=== PATIENT | male | born 1970 | race Caucasian/White ===

== ENCOUNTER 2017-09-20 09:09 | Emergency (ER) | payer MEDICARE, MEDICAID ==
[~2017-09-20] VITALS: Ht 185.4 cm; Wt 189.1 kg
[~2017-09-20 09:09] MED LIST: AGM875T PO; CIPR7.5D2 BC; HYDR12.570 PO; HYDR1TAB PO; LEVO750T6 PO; LSNP20T PO; METH4TAB PO; METR500T PO; VALS320T8 PO; VERA360C2 PO
--- OUTSIDE RECORDS SUMMARY | 2017-09-20 09:20 | XMS REPORT | Clinical Summary ---
Author Author [facility] Organization [facility] Address Unknown Phone Unavailable Care Team Providers Care Golf Club Manager Name Role Phone PCP Unavailable Source Comments Some departments are not documenting in the electronic medical record. If you do not see the information that you expected, contact Release of Information in the Health Information Management department at [phone] for further assistance in locating additional records.[facility] Allergies Not on File Current Medications Not on file Active Problems Not on file Social History Tobacco Use Types Packs/Day Years Used Date Never Assessed Sex Assigned at Date Recorded Not on file Last Filed Vital Signs Not on file Plan of Treatment Health Maintenance Due Date Last Done Comments PHYSICAL (COMPREHENSIVE) 1979 EXAM PERTUSSIS VACCINE 1983 TETANUS VACCINE 1989 INFLUENZA VACCINE 05/24/2017 Results Not on filefrom Last 3 Months
--- OUTSIDE RECORDS SUMMARY | 2017-09-20 09:21 | XMS REPORT ---
Author Author LINDA NDIAYE Organization [employer] Address Unknown Phone Unavailable Care Team Providers Care Infusion Nurse Name Role Phone LINDA NDIAYE Unavailable Allergies No Known Allergies Problems Problem Type Condition ICD-9 Code Onset Dates Condition Status Problem Social phobia 300.23 Active Assessment Degenerative disc disease 722.6 Active Problem Pain in joint, pelvic region and thigh 719.45 Active Problem Morbid obesity 278.01 Active Problem Constipation 564.00 Active Problem Anxiety state, unspecified 300.00 Active Problem Panic disorder without agoraphobia 300.01 Active Problem Other chronic pain 338.29 Active Problem Essential hypertension, benign 401.1 Active Medications No Known Medications Results No Known Results Summary Purpose [employer] Submission
--- OUTSIDE RECORDS SUMMARY | 2017-09-20 09:21 | XMS REPORT ---
Author Author GABRIELLE SUTHERLAND Organization [facility] Address [address] [place] [address] Care Team Providers Care Green Chain Offbearer Name Role Phone GABRIELLE SUTHERLAND Unavailable PROBLEMS Type Condition ICD9-CM Code [id number] Code Onset Dates Condition Status SNOMED Code Problem Other viral agents as the cause of diseases classified elsewhere B97.89 Active 253648415 Problem Dysthymic disorder F34.1 Active 34040048 Problem Acute upper respiratory infection, unspecified J06.9 Active 960765909 Problem 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.22 Active 88903757 Problem 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 81137179 Problem Osteoarthritis of knee, unspecified M17.9 Active 496306603 Problem Social phobia, generalized F40.11 Active 46360930 Problem Mixed obsessional thoughts and acts F42.2 Active 86767881 Problem Mild episode of recurrent major depressive disorder F33.0 Active 029600236 Problem Social phobia F40.10 Active 65370231 Problem Anxiety F41.9 Active 44724327 Problem Pelvic pain in male R10.2 Active 54987362 Problem Panic disorder F41.0 Active 550557814 Problem Degenerative disc disease at L5-S1 level M51.36 Active 88955799 Problem HTN (hypertension) I10 Active 63980143 Problem Chronic pain G89.29 Active 26417301 Problem Pain in right knee M25.561 Active 700063718 Problem Morbid obesity E66.01 Active 205129942 Problem BPH (benign prostatic hyperplasia) N40.0 Active 374475769 ALLERGIES Unknown Allergies SOCIAL HISTORY No smoking Hx information available PLAN OF CARE VITAL SIGNS MEDICATIONS Unknown Medications RESULTS No Results PROCEDURES No Known procedures IMMUNIZATIONS No Known Immunizations
--- OUTSIDE RECORDS SUMMARY | 2017-09-20 09:21 | XMS REPORT ---
Author Author GABRIELLE SUTHERLAND Organization [facility] Address [address] [place] [address] Care Team Providers Care Raw Finish Mill Operator Name Role Phone GABRIELLE SUTHERLAND Unavailable PROBLEMS Type Condition ICD9-CM Code RKM73-KG Code Onset Dates Condition Status SNOMED Code Problem Other viral agents as the cause of diseases classified elsewhere B97.89 Active 974966731 Problem Dysthymic disorder F34.1 Active 74725657 Problem Acute upper respiratory infection, unspecified J06.9 Active 533903056 Problem 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.22 Active 44307886 Problem 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 39576132 Problem Osteoarthritis of knee, unspecified M17.9 Active 947251686 Problem Social phobia, generalized F40.11 Active 02064349 Problem Mixed obsessional thoughts and acts F42.2 Active 09294614 Problem Mild episode of recurrent major depressive disorder F33.0 Active 918726523 Problem Social phobia F40.10 Active 89532992 Problem Anxiety F41.9 Active 27237085 Problem Pelvic pain in male R10.2 Active 37704620 Problem Panic disorder F41.0 Active 281410604 Problem Degenerative disc disease at L5-S1 level M51.36 Active 67831925 Problem HTN (hypertension) I10 Active 82826802 Problem Chronic pain G89.29 Active 24207521 Problem Pain in right knee M25.561 Active 723671240 Problem Morbid obesity E66.01 Active 460786690 Problem BPH (benign prostatic hyperplasia) N40.0 Active 095124630 ALLERGIES Unknown Allergies SOCIAL HISTORY No smoking Hx information available PLAN OF CARE VITAL SIGNS MEDICATIONS Unknown Medications RESULTS No Results PROCEDURES No Known procedures IMMUNIZATIONS No Known Immunizations
--- OUTSIDE RECORDS SUMMARY | 2017-09-20 09:21 | XMS REPORT ---
Author Author YORDAN CESAR Organization [employer] Address Unknown Phone Unavailable Care Team Providers Care Sea Kayaking Guide Name Role Phone YORDAN CESAR CP Unavailable Allergies No Known Allergies Problems Problem Type Condition Code Onset Dates Condition Status Problem Chronic pain G89.29 Active Problem Anxiety F41.9 Active Problem Morbid obesity E66.01 Active Problem Pelvic pain in male R10.2 Active Problem Social phobia F40.10 Active Problem Panic disorder F41.0 Active Medications Medication Code System Code Instructions Start Date End Date Status Dosage Alprazolam [facility] [address]-87 1 MG Orally- [place] to sign for Krishna TAKE ONE TABLET BY MOUTH THREE TIMES DAILY NEEDED Results No Known Results Summary Purpose [employer] Submission
--- OUTSIDE RECORDS SUMMARY | 2017-09-20 09:21 | XMS REPORT ---
Author Author LINDA NDIAYE [facility] [employer] Address Unknown Phone Unavailable Care Team Providers Care Dross Puller Name Role Phone LINDA NDIAYE Unavailable Allergies No Known Allergies Problems Problem Type Condition Code Onset Dates Condition Status Problem Pelvic pain in male R10.2 Active Problem Degenerative disc disease at L5-S1 level M51.36 Active Problem Morbid obesity E66.01 Active Problem HTN (hypertension) I10 Active Problem Social phobia F40.10 Active Problem Panic disorder F41.0 Active Problem Chronic pain G89.29 Active Problem Anxiety F41.9 Active Medications Medication Code System Code Instructions Start Date End Date Status Dosage Ibuprofen [facility] [address]-67 800 MG Orally 3 times a day TAKE ONE TABLET BY MOUTH THREE TIMES DAILY Results No Known Results Summary Purpose [employer] Submission
--- OUTSIDE RECORDS SUMMARY | 2017-09-20 09:21 | XMS REPORT ---
Author Author ROBBI RICE [facility] [employer] Address Unknown Phone Unavailable Care Team Providers Care Padding Gluer Name Role Phone ROBBI RICE Unavailable Allergies, Adverse Reactions, Alerts Substance Reaction Event Type Prozac Info Not Available Drug Allergy Problems Problem Type Condition Code Onset Dates Condition Status Assessment Panic disorder F41.0 Active Problem Chronic pain G89.29 Active Problem Anxiety F41.9 Active Problem Morbid obesity E66.01 Active Problem Pelvic pain in male R10.2 Active Assessment Social phobia F40.10 Active Problem Social phobia F40.10 Active Problem Panic disorder F41.0 Active Medications Medication Code System Code Instructions Start Date End Date Status Dosage Hydrochlorothiazide [facility] 28909237686 12.5 MG Orally Once a day 1 capsule by Oral route 1 time per day take in am for blood pressure Ambien [facility] [address]-72 10 MG Orally once daily - PRN insomnia January 15, 2015 1 tablet at bedtime as needed Verelan [facility] [address]-55 180 MG Orally Once a day Sep 04, 2015 2 capsule Hydrocodone-Acetaminophen [facility] [address]-55 10-325 MG Orally 3 times a day January 03, 2015 1 tablet as needed Alprazolam [facility] [address]-18 1 MG Three times a day PRN 1 tablet Lisinopril [facility] [address]-50 40 MG Orally Once a day January 15, 2015 take 1 tablet by Oral route 1 time per day for blood pressure MiraLax [facility] [address]-52 17 gm/dose Orally Once a day Jun 24, 2015 Oct 22, 2015 1 packet mixed with 8 ounces of fluid Diovan [facility] 71551858255 320 MG Orally Once a day 1 Tablet by Po route 1 time per day for blood pressure Metoprolol Succinate ER [facility] 81690618232 50 MG orally once TAKE ONE TABLET BY MOUTH ONCE DAILY Verapamil HCl CR [facility] [address]-15 360 MG Orally Once a day 2015 1 capsule in the morning Procedures Procedure Coding System Code Date Office Visit, Jocelyn Pt., Level 3 CPT-4 27828 Sep 11, 2015 Vital Signs Date/Time: Sep 11, 2015 Cardiac Monitoring Heart Rate 92 bpm Weight 365.0 lbs Height 73 in BMI 48.15 Index Blood Pressure Diastolic 100 mmHg Blood Pressure Systolic 170 mmHg Results No Known Results Summary Purpose [employer] Submission
--- OUTSIDE RECORDS SUMMARY | 2017-09-20 09:21 | XMS REPORT ---
Author Author LINDA NDIAYE [facility] [employer] Address Unknown Phone Unavailable Care Team Providers Care Bank And Savings Securities Trader Name Role Phone LINDA NDIAYE CP Unavailable Allergies, Adverse Reactions, Alerts Substance Reaction Event Type Prozac Info Not Available Drug Allergy Problems Problem Type Condition Code Onset Dates Condition Status Assessment Social phobia F40.10 Active Assessment Chronic pain G89.29 Active Assessment Anxiety F41.9 Active Problem Chronic pain G89.29 Active Problem Anxiety F41.9 Active Problem Morbid obesity E66.01 Active Problem Pelvic pain in male R10.2 Active Assessment Morbid obesity E66.01 Active Problem Social phobia F40.10 Active Problem Panic disorder F41.0 Active Assessment HTN (hypertension) I10 Active Assessment Insomnia G47.00 Active Assessment Pelvic pain in male R10.2 Active Assessment Panic disorder F41.0 Active Medications Medication Code System Code Instructions Start Date End Date Status Dosage Alprazolam [facility] 89874659348 1 MG TAKE ONE TABLET BY MOUTH TWICE DAILY NEEDED MiraLax [facility] [address]-68 17 gm/dose Orally Once a day Jun 24, 2015 Oct 22, 2015 1 packet mixed with 8 ounces of fluid Lisinopril [facility] [address]-26 40 MG Orally Once a day January 15, 2015 take 1 tablet by Oral route 1 time per day for blood pressure Blood Pressure Cuff [facility] [address]41 1 Once a day Jun 06, 2015 as directed Xanax [facility] [address]-15 1 MG Orally Twice a day PRN January 03, 2015 1 tablet Metoprolol Succinate ER [facility] [address]-15 50 MG Orally Once a day Jun 06, 2015 1 tablet Hydrochlorothiazide [facility] [address]-62 12.5 MG Orally Once a day January 15, 2015 1 capsule by Oral route 1 time per day take in am for blood pressure Diovan [facility] [address]-88 320 MG Orally Once a day January 15, 2015 1 Tablet by Po route 1 time per day for blood pressure Verapamil HCl CR [facility] [address]-36 360 MG Orally Once a day 2015 1 capsule in the morning Ibuprofen [facility] [address]-13 800mg Orally Three times a day Jul 24, 2015 Aug 23, 2015 1 tablet Ambien [facility] [address]-79 10 MG Orally once daily - PRN insomnia January 15, 2015 1 tablet at bedtime as needed Procedures Procedure Coding System Code Date Office Visit, Est Pt., Level 4 CPT-4 80399 Jul 29, 2015 [facility] VISIT ESTABLISHED PATIENT CPT-4 G0467 Jul 29, 2015 Vital Signs Date/Time: Jul 29, 2015 Temperature 98.2 F Weight 372.6 lbs Height 73 in BMI 49.15 Index Blood Pressure Diastolic 110 mmHg Blood Pressure Systolic 165 mmHg Cardiac Monitoring Heart Rate 104 bpm Results No Known Results Summary Purpose [employer]ClinicalWorks Submission
--- OUTSIDE RECORDS SUMMARY | 2017-09-20 09:21 | XMS REPORT ---
Author Author GABRIELLE SUTHERLAND Organization [facility] Address [address] [place] [address] Care Team Providers Care Purchasing Supervisor Name Role Phone GABRIELLE SUTHERLAND Unavailable PROBLEMS Type Condition ICD9-CM Code [id number] Code Onset Dates Condition Status SNOMED Code Problem Other viral agents as the cause of diseases classified elsewhere B97.89 Active 530759909 Problem Dysthymic disorder F34.1 Active 74391014 Problem Acute upper respiratory infection, unspecified J06.9 Active 454342948 Problem 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.22 Active 52185479 Problem 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 34862166 Problem Osteoarthritis of knee, unspecified M17.9 Active 067465189 Problem Social phobia, generalized F40.11 Active 87543707 Problem Mixed obsessional thoughts and acts F42.2 Active 28336445 Problem Mild episode of recurrent major depressive disorder F33.0 Active 888897025 Problem Social phobia F40.10 Active 32290977 Problem Anxiety F41.9 Active 46693661 Problem Pelvic pain in male R10.2 Active 58863326 Problem Panic disorder F41.0 Active 987925753 Problem Degenerative disc disease at L5-S1 level M51.36 Active 59828407 Problem HTN (hypertension) I10 Active 82397733 Problem Chronic pain G89.29 Active 39567761 Problem Pain in right knee M25.561 Active 041612645 Problem Morbid obesity E66.01 Active 620222243 Problem BPH (benign prostatic hyperplasia) N40.0 Active 611957566 ALLERGIES Unknown Allergies SOCIAL HISTORY No smoking Hx information available PLAN OF CARE VITAL SIGNS MEDICATIONS Unknown Medications RESULTS No Results PROCEDURES No Known procedures IMMUNIZATIONS No Known Immunizations
--- OUTSIDE RECORDS SUMMARY | 2017-09-20 09:21 | XMS REPORT ---
Author Author LINDA NDIAYE Organization [facility] Address [address] [place] [address] Care Team Providers Care Farm Mortgage Agent Name Role Phone HUGH NDIAYEE Unavailable PROBLEMS Type Condition ICD9-CM Code [id number] Code Onset Dates Condition Status SNOMED Code Problem Other viral agents as the cause of diseases classified elsewhere B97.89 Active 183127266 Problem Social phobia, generalized F40.11 Active 80690996 Problem Acute upper respiratory infection, unspecified J06.9 Active 493937185 Problem 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.22 Active 22495828 Problem 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29 Active 70729559 Problem BPH (benign prostatic hyperplasia) N40.0 Active 296295837 Problem Social phobia F40.10 Active 40281770 Problem Pain in right knee M25.561 Active 220858189 ALLERGIES Substance Reaction Event Type Date Status Prozac Unknown Drug Allergy Dec, Active SOCIAL HISTORY Never Assessed PLAN OF CARE Activity Details Follow Up 3 Months, prn Reason:chm VITAL SIGNS Height 73 in 2017-01-03 Weight 384.6 lbs 2017-01-03 Temperature 97.8 degrees Fahrenheit 2017-01-03 Heart Rate 106 bpm 2017-01-03 Respiratory Rate 24 2017-01-03 BMI 50.74 kg/m2 2017-01-03 Blood pressure systolic 152 mmHg 2017-01-03 Blood pressure diastolic 88 mmHg 2017-01-03 MEDICATIONS Medication Instructions Dosage Frequency Start Date End Date Duration Status Metoprolol Succinate ER 50 mg TAKE ONE TABLET BY MOUTH ONCE DAILY Active Hydrochlorothiazide 12.5 MG Orally Once a day 1 capsule by Oral route 1 time per day take in am for blood pressure 24h Active Lisinopril 40 MG oral once a day TAKE ONE TABLET BY MOUTH ONCE DAILY 24h Active Verapamil HCl CR 360 MG Orally Once a day 1 capsule in the morning 24h Active Ibuprofen 800 MG TAKE ONE TABLET BY MOUTH THREE TIMES DAILY Active Diovan 320 MG Orally Once a day 1 tablet 24h Active Albuterol Sulfate HFA 108 (90 Base) MCG/ACT Inhalation every 4 hrs 2 puffs as needed 4h Aug, Active Wheelchair N/A as directed Aug, Active Hydrocodone-Acetaminophen 10-325 MG Orally 3 times a day 1 tablet as needed 8h Active RESULTS Name Result Date Reference Range [employer] 2017-01-03 PROCEDURES Procedure Date Ordered Result Body Site [facility] VISIT ESTABLISHED PATIENT January 03, 2017 No Charge January 03, 2017 IMMUNIZATIONS No Known Immunizations MEDICAL (GENERAL) HISTORY Type Description Date Medical History hypertension Medical History morbid obesity Medical History anxiety Hospitalization History ER visit due to panic attacks Hospitalization History chest pain
--- OUTSIDE RECORDS SUMMARY | 2017-09-20 09:21 | XMS REPORT ---
Author Author [facility] SUTHERLAND [facility] Address [address] [place] [address] Care Team Providers Care Manager Highway Name Role Phone GABRIELLE SUTHERLAND Unavailable PROBLEMS Type Condition ICD9-CM Code XBT91-WI Code Onset Dates Condition Status SNOMED Code Problem Other viral agents as the cause of diseases classified elsewhere B97.89 Active 239412464 Problem Social phobia, generalized F40.11 Active 31434382 Problem Acute upper respiratory infection, unspecified J06.9 Active 686665602 Problem 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.22 Active 17668889 Problem 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29 Active 37962985 Problem BPH (benign prostatic hyperplasia) N40.0 Active 761016453 Problem Social phobia F40.10 Active 54084829 Problem Pain in right knee M25.561 Active 852370738 ALLERGIES Substance Reaction Event Type Date Status Prozac Unknown Drug Allergy Nov, Active SOCIAL HISTORY Never Assessed PLAN OF CARE Activity Details Follow Up 6 Weeks Reason: VITAL SIGNS MEDICATIONS Medication Instructions Dosage Frequency Start Date End Date Duration Status Diovan 320 MG Orally Once a day 1 tablet 24h Active Clonazepam 0.25 MG Orally Twice a day 1 tablet 12h 30 days Active Ibuprofen 800 MG TAKE ONE TABLET BY MOUTH THREE TIMES DAILY 30 Active Hydrochlorothiazide 12.5 MG Orally Once a day 1 capsule by Oral route 1 time per day take in am for blood pressure 24h 30 Active Lisinopril 40 MG oral once a day TAKE ONE TABLET BY MOUTH ONCE DAILY 24h 30 Active Zithromax Z-Vidal 250 MG Orally Once a day 2 tablets on the first day, then 1 tablet daily for 4 days 24h 22 Aug, 2016 5 day(s) Active Rexulti 0.5 MG Orally Once a day 1 tablet 24h 16 Sep, 2016 Active Metoprolol Succinate ER 50 mg TAKE ONE TABLET BY MOUTH ONCE DAILY Active Trazodone HCl 50 mg Orally Once a day 1 tablet at bedtime as needed 24h Active Hydrocodone-Acetaminophen 10-325 MG Orally 3 times a day 1 tablet as needed 8h Oct, Active Wheelchair N/A as directed Aug, Active Verapamil HCl CR 360 MG Orally Once a day 1 capsule in the morning 24h Active Rexulti 2 MG Orally Once a day 1 tablet 24h Nov, 30 day(s) Active Cheratussin AC 100-10 MG/5ML Orally every 4 hrs 5 ml 4h Aug, Active Albuterol Sulfate HFA 108 (90 Base) MCG/ACT Inhalation every 4 hrs 2 puffs as needed 4h Aug, Active RESULTS No Results PROCEDURES Procedure Date Ordered Result Body Site [facility] VISIT ESTABLISHED PATIENT Nov 26, 2016 IMMUNIZATIONS No Known Immunizations MEDICAL (GENERAL) HISTORY Type Description Date Medical History hypertension Medical History morbid obesity Medical History anxiety Hospitalization History ER visit due to panic attacks Hospitalization History chest pain
--- OUTSIDE RECORDS SUMMARY | 2017-09-20 09:21 | XMS REPORT ---
Author Author LINDA NDIAYE Organization [facility] Address [address] [place] [address] Care Team Providers Care Wet Char Conveyor Tender Name Role Phone HUGH NDIAYEE Unavailable PROBLEMS Type Condition ICD9-CM Code BED49-HV Code Onset Dates Condition Status SNOMED Code Problem Other viral agents as the cause of diseases classified elsewhere B97.89 Active 551455378 Problem Social phobia, generalized F40.11 Active 83991313 Problem Acute upper respiratory infection, unspecified J06.9 Active 384348110 Problem 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.22 Active 61329407 Problem 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29 Active 06531855 Problem BPH (benign prostatic hyperplasia) N40.0 Active 710836812 Problem Social phobia F40.10 Active 15489130 Problem Pain in right knee M25.561 Active 491861227 ALLERGIES No Information SOCIAL HISTORY Never Assessed PLAN OF CARE VITAL SIGNS MEDICATIONS Medication Instructions Dosage Frequency Start Date End Date Duration Status Hydrocodone-Acetaminophen 10-325 MG Orally 3 times a day 1 tablet as needed 8h February, 28 days Active RESULTS No Results PROCEDURES No Known procedures IMMUNIZATIONS No Known Immunizations MEDICAL (GENERAL) HISTORY Type Description Date Medical History hypertension Medical History morbid obesity Medical History anxiety Hospitalization History ER visit due to panic attacks Hospitalization History chest pain
--- OUTSIDE RECORDS SUMMARY | 2017-09-20 09:21 | XMS REPORT ---
Author Author LINDA NDIAYE Organization [facility] Address [address] [place] [address] Care Team Providers Care Production Planner Scheduler Name Role Phone LINDA NDIAYE Unavailable PROBLEMS Type Condition ICD9-CM Code [id number] Code Onset Dates Condition Status SNOMED Code Problem Panic disorder F41.0 Active 221201393 Problem Anxiety F41.9 Active 04959516 Problem Social phobia F40.10 Active 31674880 Problem Pelvic pain in male R10.2 Active 82890944 Problem BPH (benign prostatic hyperplasia) N40.0 Active 070734753 Problem Pain in right knee M25.561 Active 843806133 Problem Morbid obesity E66.01 Active 891851996 Problem Chronic pain G89.29 Active 18271348 Problem HTN (hypertension) I10 Active 11003189 Problem Degenerative disc disease at L5-S1 level M51.36 Active 95874532 ALLERGIES Unknown Allergies SOCIAL HISTORY No smoking Hx information available PLAN OF CARE VITAL SIGNS MEDICATIONS Medication Instructions Dosage Frequency Start Date End Date Duration Status Hydrocodone-Acetaminophen 10-325 MG Orally 3 times a day 1 tablet as needed 8h 28 days Active Alprazolam 1 MG Orally Three times a day 1 tablet 8h Active RESULTS No Results PROCEDURES No Known procedures IMMUNIZATIONS No Known Immunizations
--- OUTSIDE RECORDS SUMMARY | 2017-09-20 09:22 | XMS REPORT ---
Author Author LINDA NDIAYE [facility] eClinicalWorks Address Unknown Phone Unavailable Care Team Providers Care Smutter Name Role Phone LINDA NDIAYE Unavailable Allergies No Known Allergies Problems Problem Type Condition Code Onset Dates Condition Status Problem Morbid obesity E66.01 Active Problem HTN (hypertension) I10 Active Problem Degenerative disc disease at L5-S1 level M51.36 Active Problem Social phobia, generalized F40.11 Active Problem Dysthymic disorder F34.1 Active Problem Osteoarthritis of knee, unspecified M17.9 Active Problem BPH (benign prostatic hyperplasia) N40.0 Active Problem Pain in right knee M25.561 Active Problem Acute upper respiratory infection, unspecified J06.9 Active Problem Other viral agents as the cause of diseases classified elsewhere B97.89 Active Problem Panic disorder F41.0 Active Problem Social phobia F40.10 Active Problem Anxiety F41.9 Active Problem Pelvic pain in male R10.2 Active Problem Chronic pain G89.29 Active Medications No Known Medications Results No Known Results Summary Purpose eClinicalWorks Submission
--- OUTSIDE RECORDS SUMMARY | 2017-09-20 09:22 | XMS REPORT ---
Author Author LINDA NDIAYE [facility] eClinicalWorks Address Unknown Phone Unavailable Care Team Providers Care Flexographic Printing Machinist Name Role Phone LINDA NDIAYE Unavailable Allergies No Known Allergies Problems Problem Type Condition ICD-9 Code Onset Dates Condition Status Problem Morbid obesity 278.01 Active Problem Other chronic pain 338.29 Active Problem Pain in joint, pelvic region and thigh 719.45 Active Problem Panic disorder without agoraphobia 300.01 Active Problem Social phobia 300.23 Active Problem Essential hypertension, benign 401.1 Active Problem Anxiety state, unspecified 300.00 Active Medications No Known Medications Results No Known Results Summary Purpose eClinicalWorks Submission
--- OUTSIDE RECORDS SUMMARY | 2017-09-20 09:22 | XMS REPORT ---
Author Author LINDA NDIAYE [facility] eClinicalWorks Address Unknown Phone Unavailable Care Team Providers Care Senior Pastor Name Role Phone LINDA NDIAYE Unavailable Allergies No Known Allergies Problems Problem Type Condition Code Onset Dates Condition Status Problem Chronic pain G89.29 Active Problem Anxiety F41.9 Active Problem Morbid obesity E66.01 Active Problem Pelvic pain in male R10.2 Active Problem Social phobia F40.10 Active Problem Panic disorder F41.0 Active Medications No Known Medications Results No Known Results Summary Purpose eClinicalWorks Submission
--- OUTSIDE RECORDS SUMMARY | 2017-09-20 09:22 | XMS REPORT ---
Author Author LINDA NDIAYE [facility] eClinicalWorks Address Unknown Phone Unavailable Care Team Providers Care Hospital Television Rental Clerk Name Role Phone LINDA NDIAYE Unavailable Allergies [...] Instructions Start Date End Date Status Dosage Hydrocodone-Acetaminophen [facility] [address]-38 10-325 MG Orally 3 times a day 1 tablet as needed Results No Known Results Summary Purpose eClinicalWorks Submission
--- OUTSIDE RECORDS SUMMARY | 2017-09-20 09:22 | XMS REPORT ---
Author Author LINDA NDIAYE [facility] eClinicalWorks Address Unknown Phone Unavailable Care Team Providers Care Grout Machine Operator Name Role Phone LINDA NDIAYE Unavailable Allergies [...] F41.0 Active Problem Social phobia F40.10 Active Assessment Osteoarthritis of knee, unspecified M17.9 Active Problem Anxiety F41.9 Active Problem Pelvic pain in male R10.2 Active Problem Chronic pain G89.29 Active Medications Medication Code System Code Instructions Start Date End Date Status Dosage Wheelchair NDC 0 N/A Sep 03, 2016 as directed Results No Known Results Summary Purpose eClinicalWorks Submission
--- OUTSIDE RECORDS SUMMARY | 2017-09-20 09:22 | XMS REPORT ---
Author Author LINDA NDIAYE [facility] eClinicalWorks Address Unknown Phone Unavailable Care Team Providers Care Lpn Name Role Phone LINDA NDIAYE CP Unavailable Allergies No Known Allergies Problems Problem Type Condition Code Onset Dates Condition Status Problem Pelvic pain in male R10.2 Active Problem Social phobia F40.10 Active Problem Panic disorder F41.0 Active Problem Pain in right knee M25.561 Active Problem HTN (hypertension) I10 Active Problem BPH (benign prostatic hyperplasia) N40.0 Active Problem Chronic pain G89.29 Active Problem Anxiety F41.9 Active Problem Degenerative disc disease at L5-S1 level M51.36 Active Problem Morbid obesity E66.01 Active Medications Medication Code System Code Instructions Start Date End Date Status Dosage Marybel [facility] [address]-67 0.5 % Externally as directed Jun 04, 2016 as directed Results No Known Results Summary Purpose eClinicalWorks Submission
--- OUTSIDE RECORDS SUMMARY | 2017-09-20 09:22 | XMS REPORT ---
Author Author LINDA NDIAYE [facility] eClinicalWorks Address Unknown Phone Unavailable Care Team Providers Care Catheter Builder Name Role Phone LINDA NDIAYE CP Unavailable [...] Active Problem Social phobia F40.10 Active Assessment Bronchitis J40 Active Problem Anxiety F41.9 Active Problem Pelvic pain in male R10.2 Active Problem Chronic pain G89.29 Active Medications Medication Code System Code Instructions Start Date End Date Status Dosage Cheratussin AC [facility] [address]-33 100-10 MG/5ML Orally every 4 hrs Sep 09, 2016 5 ml Lisinopril [facility] [address]-60 40 MG Orally 1 time a day not defined Xanax [facility] [address]-64 1 MG Orally Twice a day 1 tablet PredniSONE [facility] [address]-69 20 mg Orally twice a day Sep 09, 2016Aug 1 tablet Augmentin [facility] [address]-64 875-125 MG Orally every 12 hrs Sep 09, 2016 Sep 19, 2016 1 tablet Diovan [facility] [address]-55 320 MG Orally Once a day 1 tablet Duloxetine HCl [facility] [address]-19 30 MG Orally Once a day Aug 31, 2016 1 capsule Hydrocodone-Acetaminophen [facility] [address]-83 10-325 MG Orally 3 times a day Sep 01, 2016 1 tablet as needed Verapamil HCl CR [facility] 97028162284 360 MG Orally Once a day 1 capsule in the morning Wheelchair [facility] 0 N/A Sep 03, 2016 as directed Trazodone HCl [facility] [address]-81 50 mg Orally Once a day Aug 31, 2016 1 tablet at bedtime as needed Albuterol Sulfate HFA [facility] [address]-86 108 (90 Base) MCG/ACT Inhalation every 4 hrs Sep 09, 2016 2 puffs as needed Hydrochlorothiazide [facility] 69888890525 12.5 MG Orally Once a day 1 capsule by Oral route 1 time per day take in am for blood pressure Procedures Procedure Coding System Code Date Office Visit, Est Pt., Level 4 CPT-4 25279 Sep 09, 2016 [facility] VISIT ESTABLISHED PATIENT CPT-4 G0467 Sep 09, 2016 Vital Signs Date/Time: Sep 09, 2016 Cardiac Monitoring Heart Rate 88 bpm Weight 379.3 lbs Height 73 in BMI 50.04 Index Blood Pressure Diastolic 82 mmHg Blood Pressure Systolic 144 mmHg Results No Known Results Summary Purpose eClinicalWorks Submission
--- OUTSIDE RECORDS SUMMARY | 2017-09-20 09:22 | XMS REPORT ---
Author Author LINDA NDIAYE [facility] eClinicalWorks Address Unknown Phone Unavailable Care Team Providers Care Public Records Officer Name Role Phone LINDA NDIAYE Unavailable Allergies No Known Allergies Problems Problem Type Condition Code Onset Dates Condition Status Problem Chronic pain G89.29 Active Problem Anxiety F41.9 Active Problem Morbid obesity E66.01 Active Problem Pelvic pain in male R10.2 Active Problem Social phobia F40.10 Active Problem Panic disorder F41.0 Active Medications Medication Code System Code Instructions Start Date End Date Status Dosage Lisinopril [facility] [address]-04 40 MG Orally Once a day Aug 26, 2015 1 tablet Results No Known Results Summary Purpose eClinicalWorks Submission
--- OUTSIDE RECORDS SUMMARY | 2017-09-20 09:22 | XMS REPORT ---
Author Author LINDA NDIAYE [facility] eClinicalWorks Address Unknown Phone Unavailable Care Team Providers Care Analog Ic Design Engineer Name Role Phone LINDA NDIAYE Unavailable Allergies No Known Allergies Problems Problem Type Condition Code Onset Dates Condition Status Problem Chronic pain G89.29 Active Problem Anxiety F41.9 Active Problem Morbid obesity E66.01 Active Problem Pelvic pain in male R10.2 Active Problem Social phobia F40.10 Active Problem Panic disorder F41.0 Active Medications Medication Code System Code Instructions Start Date End Date Status Dosage Hydrocodone-Acetaminophen [facility] [address]-45 10-325 MG Orally 3 times a day January 03, 2015 1 tablet as needed Results No Known Results Summary Purpose eClinicalWorks Submission
--- OUTSIDE RECORDS SUMMARY | 2017-09-20 09:22 | XMS REPORT ---
Author Author Art KALE Organization [facility] Address [address] [place] [address] Care Team Providers Care Lining Inserter Name Role Phone ana paulaKALE Alexander Unavailable PROBLEMS Type Condition ICD9-CM Code DKE10-WD Code Onset Dates Condition Status SNOMED Code Problem Other viral agents as the cause of diseases classified elsewhere B97.89 Active 487858632 Problem Social phobia, generalized F40.11 Active 68197181 Problem Acute upper respiratory infection, unspecified J06.9 Active 017131365 Problem 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.22 Active 62022581 Problem 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29 Active 17433430 Problem BPH (benign prostatic hyperplasia) N40.0 Active 168291552 Problem Social phobia F40.10 Active 74931047 Problem Pain in right knee M25.561 Active 158156228 ALLERGIES No Information SOCIAL HISTORY Never Assessed PLAN OF CARE Activity Details Follow Up 6 Weeks with new provider Reason: VITAL SIGNS Height 73 in 2017-03-03 Heart Rate 86 bpm 2017-03-03 Respiratory Rate 22 2017-03-03 Blood pressure systolic 154 mmHg 2017-03-03 Blood pressure diastolic 102 mmHg 2017-03-03 MEDICATIONS Medication Instructions Dosage Frequency Start Date End Date Duration Status Metoprolol Succinate ER 50 mg TAKE ONE TABLET BY MOUTH ONCE DAILY 30 Active Hydrochlorothiazide 12.5 MG Orally Once a day 1 capsule by Oral route 1 time per day take in am for blood pressure 24h 30 Active Trazodone HCl 50 mg Orally Once a day 1 tablet at bedtime as needed 24h Active Ibuprofen 800 MG Orally 3 times a day 1 tablet with food or milk as needed 8h 30 days Active Lisinopril 40 MG oral once a day TAKE ONE TABLET BY MOUTH ONCE DAILY 24h 30 Active Albuterol Sulfate HFA 108 (90 Base) MCG/ACT Inhalation every 4 hrs 2 puffs as needed 4h Aug, Active Diovan 320 MG Orally Once a day 1 tablet 24h 30 Active BuPROPion HCl 75 MG Orally Once a day 1 tablet 24h February, 30 day( s) Active Wheelchair N/A as directed Aug, Active Verapamil HCl CR 360 MG Orally Once a day 1 capsule in the morning 24h 30 Active Hydrocodone-Acetaminophen 10-325 MG Orally 3 times a day 1 tablet as needed 8h February, 28 days Active RESULTS No Results PROCEDURES Procedure Date Ordered Result Body Site [facility] VISIT ESTABLISHED PATIENT March 03, 2017 IMMUNIZATIONS No Known Immunizations MEDICAL (GENERAL) HISTORY Type Description Date Medical History hypertension Medical History morbid obesity Medical History anxiety Hospitalization History ER visit due to panic attacks Hospitalization History chest pain
--- OUTSIDE RECORDS SUMMARY | 2017-09-20 09:22 | XMS REPORT ---
Author Author LINDA NDIAYE [facility] eClinicalWorks Address Unknown Phone Unavailable Care Team Providers Care Foreign Food Specialty Cook Name Role Phone LINDA NDIAYE Unavailable Allergies No Known Allergies Problems Problem Type Condition Code Onset Dates Condition Status Problem Chronic pain G89.29 Active Problem Anxiety F41.9 Active Problem Morbid obesity E66.01 Active Problem Pelvic pain in male R10.2 Active Problem Social phobia F40.10 Active Problem Panic disorder F41.0 Active Medications Medication Code System Code Instructions Start Date End Date Status Dosage Hydrocodone-Acetaminophen [facility] [address]-95 10-325 MG Orally 3 times a day January 03, 2015 Oct 17, 2015 1 tablet as needed Results No Known Results Summary Purpose eClinicalWorks Submission
--- OUTSIDE RECORDS SUMMARY | 2017-09-20 09:22 | XMS REPORT ---
Author Author LINDA NDIAYE [facility] eClinicalWorks Address Unknown Phone Unavailable Care Team Providers Care Odd Jobs Day Worker Name Role Phone LINDA NDIAYE Unavailable Allergies [...]
--- OUTSIDE RECORDS SUMMARY | 2017-09-20 09:22 | XMS REPORT ---
Author Author LINDA NDIAYE [facility] eClinicalWorks Address Unknown Phone Unavailable Care Team Providers Care Oracle Financials Developer Name Role Phone LINDA NDIAYE CP Unavailable [...] Start Date End Date Status Dosage Hydrocodone-Acetaminophen [facility] [address]-52 10-325 MG Orally 3 times a day 1 tablet as needed Results No Known Results Summary Purpose eClinicalWorks Submission
--- OUTSIDE RECORDS SUMMARY | 2017-09-20 09:22 | XMS REPORT ---
Author Author LINDA NDIAYE Organization eClinicalWorks Address Unknown Phone Unavailable Care Team Providers Care Hat Brusher Machine Name Role Phone LINDA NDIAYE Unavailable Allergies No Known Allergies Problems Problem Type Condition Code Onset Dates Condition Status Problem Chronic pain G89.29 Active Problem Anxiety F41.9 Active Problem Morbid obesity E66.01 Active Problem Pelvic pain in male R10.2 Active Problem Social phobia F40.10 Active Problem Panic disorder F41.0 Active Medications Medication Code System Code Instructions Start Date End Date Status Dosage Verapamil HCl [facility] [address]-36 360 MG Orally Once a day 2015 1 capsule in the morning Results No Known Results Summary Purpose eClinicalWorks Submission
--- OUTSIDE RECORDS SUMMARY | 2017-09-20 09:22 | XMS REPORT ---
Author Author LINDA NDIAYE [facility] eClinicalWorks Address Unknown Phone Unavailable Care Team Providers Care Document Controller Name Role Phone LINDA NDIAYE Unavailable Allergies No Known Allergies Problems Problem Type Condition Code Onset Dates Condition Status Problem Chronic pain G89.29 Active Problem Anxiety F41.9 Active Problem Morbid obesity E66.01 Active Problem Pelvic pain in male R10.2 Active Problem Social phobia F40.10 Active Problem Panic disorder F41.0 Active Medications Medication Code System Code Instructions Start Date End Date Status Dosage Alprazolam [facility] [address]-20 1 MG Orally- [place] to sign for Krishna Three times a day TAKE ONE TABLET BY MOUTH THREE TIMES DAILY NEEDED Results No Known Results Summary Purpose eClinicalWorks Submission
--- OUTSIDE RECORDS SUMMARY | 2017-09-20 09:23 | XMS REPORT ---
Author Author GABRIELLE SUTHERLAND [facility] eClinicalWorks Address Unknown Phone Unavailable Care Team Providers Care Laundry Bag Punch Operator Name Role Phone GABRIELLE SUTHERLAND CP Unavailable Allergies No Known Allergies Problems Problem Type Condition Code Onset Dates Condition Status Problem Chronic pain G89.29 Active Problem Degenerative disc disease at L5-S1 level M51.36 Active Problem Morbid obesity E66.01 Active Problem Dysthymic disorder F34.1 Active Problem Acute upper respiratory infection, unspecified J06.9 Active Problem Social phobia, generalized F40.11 Active Problem Pain in right knee M25.561 Active Problem HTN (hypertension) I10 Active Problem Other viral agents as the cause of diseases classified elsewhere B97.89 Active Problem BPH (benign prostatic hyperplasia) N40.0 Active Problem Pelvic pain in male R10.2 Active Problem Panic disorder F41.0 Active Assessment Dysthymic disorder F34.1 Active Problem Social phobia F40.10 Active Assessment Social phobia, generalized F40.11 Active Problem Anxiety F41.9 Active Medications Medication Code System Code Instructions Start Date End Date Status Dosage Trazodone HCl [facility] [address]-56 50 mg Orally Once a day Aug 31, 2016 1 tablet at bedtime as needed Duloxetine HCl [facility] [address]-80 30 MG Orally Once a day Aug 31, 2016 1 capsule Procedures Procedure Coding System Code Date Office Visit, Est Pt., Level 3 CPT-4 37389 Aug 31, 2016 [facility] VISIT ESTABLISHED PATIENT CPT-4 G0467 Aug 31, 2016 Results No Known Results Summary Purpose eClinicalWorks Submission
--- OUTSIDE RECORDS SUMMARY | 2017-09-20 09:23 | XMS REPORT ---
Author Author LINDA NDIAYE [facility] eClinicalWorks Address Unknown Phone Unavailable Care Team Providers Care Assembler Installer Structures Name Role Phone LINDA NDIAYE Unavailable Allergies [...] Date End Date Status Dosage Verapamil HCl [facility] [address]-21 180 MG Orally Once a day Sep 04, 2015 2 tablet Results No Known Results Summary Purpose eClinicalWorks Submission
--- OUTSIDE RECORDS SUMMARY | 2017-09-20 09:23 | XMS REPORT ---
Author Author ROBBI RICE Organization eClinicalWorks Address Unknown Phone Unavailable Care Team Providers Care Grain Loader Name Role Phone ROBBI RICE Unavailable Allergies No Known Allergies Problems Problem Type Condition ICD-9 Code Onset Dates Condition Status Problem Morbid obesity 278.01 Active Problem Other chronic pain 338.29 Active Problem Pain in joint, pelvic region and thigh 719.45 Active Problem Panic disorder without agoraphobia 300.01 Active Problem Social phobia 300.23 Active Problem Essential hypertension, benign 401.1 Active Problem Anxiety state, unspecified 300.00 Active Medications Medication Code System Code Instructions Start Date End Date Status Dosage Xanax [facility] [address]-46 1 MG Orally Twice a day PRN January 03, 2015 1 tablet Ambien [facility] [address]-69 10 MG Orally once daily - PRN insomnia January 15, 2015 1 tablet at bedtime as needed Results No Known Results Summary Purpose eClinicalWorks Submission
--- OUTSIDE RECORDS SUMMARY | 2017-09-20 09:23 | XMS REPORT ---
Author Author LINDA NDIAYE [facility] eClinicalWorks Address Unknown Phone Unavailable Care Team Providers Care Core Java Engineer Name Role Phone LINDA NDIAYE Unavailable [...] Start Date End Date Status Dosage Hydrocodone-Acetaminophen [facility] [address]-99 10-325 MG Orally 3 times a day January 03, 2015 Oct 17, 2015 1 tablet as needed Results No Known Results Summary Purpose eClinicalWorks Submission
--- OUTSIDE RECORDS SUMMARY | 2017-09-20 09:23 | XMS REPORT ---
Author Author CHARLA LANDRUM [facility] eClinicalWorks Address Unknown Phone Unavailable Care Team Providers Care Concrete Technician Name Role Phone CHARLA LANDRUM CP Unavailable Allergies, Adverse Reactions, Alerts Substance Reaction Event Type Prozac Info Not Available Drug Allergy Problems Problem Type Condition Code Onset Dates Condition Status Assessment Social phobia, generalized F40.11 Active Problem Pelvic pain in male R10.2 Active Assessment Panic disorder [episodic paroxysmal anxiety] without agoraphobia F41.0 Active Problem Degenerative disc disease at L5-S1 level M51.36 Active Problem Morbid obesity E66.01 Active Problem HTN (hypertension) I10 Active Problem Social phobia F40.10 Active Problem Panic disorder F41.0 Active Problem Chronic pain G89.29 Active Problem Anxiety F41.9 Active Medications Medication Code System Code Instructions Start Date End Date Status Dosage Diovan [facility] 07925696844 320 MG Orally Once a day 1 Tablet by Po route 1 time per day for blood pressure Hydrochlorothiazide [facility] 25925288274 12.5 MG Orally Once a day 1 capsule by Oral route 1 time per day take in am for blood pressure Alprazolam [facility] [address]-59 1 MG Orally- [place] to sign for Krishna Three times a day TAKE ONE TABLET BY MOUTH THREE TIMES DAILY NEEDED Ambien [facility] [address]-52 10 MG Orally once daily - PRN insomnia January 15, 2015 1 tablet at bedtime as needed Verapamil HCl CR [facility] [address]-71 360 MG Orally Once a day 2015 1 capsule in the morning Metoprolol Succinate ER [facility] 64976114110 50 MG orally once TAKE ONE TABLET BY MOUTH ONCE DAILY Ibuprofen [facility] 17825004737 800 MG TAKE ONE TABLET BY MOUTH THREE TIMES DAILY Lisinopril [facility] [address]-50 40 MG Orally Once a day January 15, 2015 take 1 tablet by Oral route 1 time per day for blood pressure Verelan [facility] 98908448597 180 MG Orally Once a day 2 capsule Procedures Procedure Coding System Code Date Office Visit, Est Pt., Level 3 CPT-4 44461 Nov 13, 2015 [facility] VISIT ESTABLISHED PATIENT CPT-4 G0467 Nov 13, 2015 Vital Signs Date/Time: Nov 13, 2015 Cardiac Monitoring Heart Rate 120 bpm Weight 373.7 lbs Height 73 in BMI 49.30 Index Blood Pressure Diastolic 100 mmHg Blood Pressure Systolic 150 mmHg Results No Known Results Summary Purpose eClinicalWorks Submission
--- OUTSIDE RECORDS SUMMARY | 2017-09-20 09:23 | XMS REPORT ---
Author Author LINDA NDIAYE [facility] eClinicalWorks Address Unknown Phone Unavailable Care Team Providers Care Personal Security Specialist Name Role Phone LINDA NDIAYE CP Unavailable [...] Start Date End Date Status Dosage Alprazolam [facility] [address]-36 1 MG Orally Three times a day 1 tablet Hydrocodone-Acetaminophen [facility] [address]-43 10-325 MG Orally 3 times a day 1 tablet as needed Results No Known Results Summary Purpose eClinicalWorks Submission
--- OUTSIDE RECORDS SUMMARY | 2017-09-20 09:23 | XMS REPORT ---
Author Author LINDA NDIAYE Organization [employer] Address Unknown Phone Unavailable Care Team Providers Care Mobile Pet Groomer Name Role Phone LINDA NDIAYE CP Unavailable [...] Instructions Start Date End Date Status Dosage Metoprolol Succinate ER [facility] [address]-90 50 mg TAKE ONE TABLET BY MOUTH ONCE DAILY Verapamil HCl CR [facility] 92180997513 360 MG Orally Once a day 1 capsule in the morning Diovan [facility] [address]-42 320 MG Orally Once a day 1 tablet Results No Known Results Summary Purpose eClinicalWorks Submission
--- OUTSIDE RECORDS SUMMARY | 2017-09-20 09:23 | XMS REPORT ---
Author Author CODY ACE Organization [employer] Address Unknown Phone Unavailable Care Team Providers Care Tank Hoop Bender Name Role Phone CODY ACE CP Unavailable Allergies No Known Allergies Problems Problem Type Condition Code Onset Dates Condition Status Problem Chronic pain G89.29 Active Problem Anxiety F41.9 Active Problem Morbid obesity E66.01 Active Problem Pelvic pain in male R10.2 Active Problem Social phobia F40.10 Active Problem Panic disorder F41.0 Active Medications Medication Code System Code Instructions Start Date End Date Status Dosage Alprazolam [facility] [address]-51 1 MG Orally- [place] to sign for Krishna TAKE ONE TABLET BY MOUTH TWICE DAILY NEEDED Results No Known Results Summary Purpose eClinicalWorks Submission
--- OUTSIDE RECORDS SUMMARY | 2017-09-20 09:23 | XMS REPORT ---
Author Author LINDA NDIAYE Organization [facility] Address [address] [place] [address] Care Team Providers Care Telephone Triage Nurse Name Role Phone LINDA NDIAYE Unavailable PROBLEMS Type Condition ICD9-CM Code [id number] Code Onset Dates Condition Status SNOMED Code Problem Other viral agents as the cause of diseases classified elsewhere B97.89 Active 724091472 Problem Dysthymic disorder F34.1 Active 35951945 Problem Acute upper respiratory infection, unspecified J06.9 Active 888469161 Problem 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.22 Active 72763177 Problem 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 17017999 Problem Osteoarthritis of knee, unspecified M17.9 Active 527652475 Problem Social phobia, generalized F40.11 Active 66104401 Problem Mixed obsessional thoughts and acts F42.2 Active 68423162 Problem Mild episode of recurrent major depressive disorder F33.0 Active 871684483 Problem Social phobia F40.10 Active 85912099 Problem Anxiety F41.9 Active 12361382 Problem Pelvic pain in male R10.2 Active 70567426 Problem Panic disorder F41.0 Active 860082920 Problem Degenerative disc disease at L5-S1 level M51.36 Active 17304340 Problem HTN (hypertension) I10 Active 77859320 Problem Chronic pain G89.29 Active 51373114 Problem Pain in right knee M25.561 Active 199811473 Problem Morbid obesity E66.01 Active 705169037 Problem BPH (benign prostatic hyperplasia) N40.0 Active 787112274 ALLERGIES Unknown Allergies SOCIAL HISTORY No smoking Hx information available PLAN OF CARE VITAL SIGNS MEDICATIONS Medication Instructions Dosage Frequency Start Date End Date Duration Status Hydrocodone-Acetaminophen 10-325 MG Orally 3 times a day 1 tablet as needed 8h 21 Sep, 2016 Active RESULTS No Results PROCEDURES No Known procedures IMMUNIZATIONS No Known Immunizations
--- OUTSIDE RECORDS SUMMARY | 2017-09-20 09:23 | XMS REPORT ---
Author Author LINDA NDIAYE [facility] eClinical[employer] Address Unknown Phone Unavailable Care Team Providers Care Music Typographer Name Role Phone LINDA NDIAYE CP Unavailable [...] Start Date End Date Status Dosage Alprazolam [facility] [address]-21 1 MG Orally- [place] to sign for Krishna Three times a day TAKE ONE TABLET BY MOUTH THREE TIMES DAILY NEEDED Results No Known Results Summary Purpose eClinicalWorks Submission
--- OUTSIDE RECORDS SUMMARY | 2017-09-20 09:23 | XMS REPORT ---
Author Author LIDNA NDIAYE Organization [facility] Address [address] [place] [address] Care Team Providers Care Customer Service Rep Name Role Phone HUGH NDIAYEE Unavailable PROBLEMS Type Condition ICD9-CM Code [id number] Code Onset Dates Condition Status SNOMED Code Problem Other viral agents as the cause of diseases classified elsewhere B97.89 Active 933630120 Problem Dysthymic disorder F34.1 Active 52640513 Problem Acute upper respiratory infection, unspecified J06.9 Active 341767874 Problem 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.22 Active 92811961 Problem 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 20683519 Problem Osteoarthritis of knee, unspecified M17.9 Active 081557979 Problem Social phobia, generalized F40.11 Active 98721472 Problem Mixed obsessional thoughts and acts F42.2 Active 64159394 Problem Mild episode of recurrent major depressive disorder F33.0 Active 744772720 Problem Social phobia F40.10 Active 91991362 Problem Anxiety F41.9 Active 94153334 Problem Pelvic pain in male R10.2 Active 70136529 Problem Panic disorder F41.0 Active 956000291 Problem Degenerative disc disease at L5-S1 level M51.36 Active 25914953 Problem HTN (hypertension) I10 Active 64056509 Problem Chronic pain G89.29 Active 43209873 Problem Pain in right knee M25.561 Active 572241107 Problem Morbid obesity E66.01 Active 007410471 Problem BPH (benign prostatic hyperplasia) N40.0 Active 991554365 ALLERGIES Unknown Allergies SOCIAL HISTORY No smoking Hx information available PLAN OF CARE VITAL SIGNS MEDICATIONS Unknown Medications RESULTS No Results PROCEDURES No Known procedures IMMUNIZATIONS No Known Immunizations
--- OUTSIDE RECORDS SUMMARY | 2017-09-20 09:23 | XMS REPORT ---
Author Author LINDA NDIAYE [facility] eClinicalWorks Address Unknown Phone Unavailable Care Team Providers Care Terrazzo Worker Name Role Phone LINDA NDIAYE Unavailable [...] Start Date End Date Status Dosage Hydrocodone-Acetaminophen [facility] [address]-38 10-325 MG Orally 3 times a day January 03, 2015 Jun 22, 2015 1 tablet as needed Results No Known Results Summary Purpose eClinicalWorks Submission
--- OUTSIDE RECORDS SUMMARY | 2017-09-20 09:24 | XMS REPORT ---
Author Author LINDA NDIAYE [facility] eClinicalWorks Address Unknown Phone Unavailable Care Team Providers Care Senior Net Developer Architect Name Role Phone LINDA NDIAYE CP Unavailable [...] Active Problem Morbid obesity E66.01 Active Medications No Known Medications Results No Known Results Summary Purpose eClinicalWorks Submission
--- OUTSIDE RECORDS SUMMARY | 2017-09-20 09:24 | XMS REPORT ---
Author Author LINDA NDIAYE [facility] eClinicalWorks Address Unknown Phone Unavailable Care Team Providers Care Road Consultant Name Role Phone LINDA NDIAYE CP Unavailable Allergies, Adverse Reactions, Alerts Substance Reaction Event Type Prozac Info Not Available Drug Allergy Problems Problem Type Condition Code Onset Dates Condition Status Problem Chronic pain G89.29 Active Problem Degenerative disc disease at L5-S1 level M51.36 Active Problem Morbid obesity E66.01 Active Problem Dysthymic disorder F34.1 Active Assessment Acute upper respiratory infection, unspecified J06.9 Active Problem Acute upper respiratory infection, unspecified J06.9 Active Assessment Other viral agents as the cause of diseases classified elsewhere B97.89 Active Problem Social phobia, generalized F40.11 Active Problem Pain in right knee M25.561 Active Problem HTN (hypertension) I10 Active Problem Other viral agents as the cause of diseases classified elsewhere B97.89 Active Problem BPH (benign prostatic hyperplasia) N40.0 Active Assessment Social phobia F40.10 Active Assessment Anxiety F41.9 Active Assessment Social phobia, generalized F40.11 Active Assessment HTN (hypertension) I10 Active Problem Pelvic pain in male R10.2 Active Problem Panic disorder F41.0 Active Assessment Chronic pain G89.29 Active Problem Social phobia F40.10 Active Assessment Morbid obesity E66.01 Active Problem Anxiety F41.9 Active Medications Medication Code System Code Instructions Start Date End Date Status Dosage Verapamil HCl CR [facility] 40073628670 360 MG Orally Once a day 1 capsule in the morning Tessalon Perles [facility] [address]-18 100 MG Orally Three times a day Sep 01, 2016 Sep 11, 2016 1 capsule as needed Trazodone HCl [facility] [address]-95 50 mg Orally Once a day Aug 31, 2016 1 tablet at bedtime as needed PredniSONE [facility] [address]-35 10 mg Orally twice a day Sep 01, 2016Aug 1 tablet Hydrochlorothiazide [facility] 32387555382 12.5 MG Orally Once a day 1 capsule by Oral route 1 time per day take in am for blood pressure Xanax [facility] [address]-33 1 MG Orally Twice a day 1 tablet Duloxetine HCl [facility] [address]-77 30 MG Orally Once a day Aug 31, 2016 1 capsule Hydrocodone-Acetaminophen [facility] [address]-29 10-325 MG Orally 3 times a day Sep 01, 2016 1 tablet as needed Procedures Procedure Coding System Code Date Office Visit, Est Pt., Level 4 CPT-4 29401 Sep 01, 2016 [facility] VISIT ESTABLISHED PATIENT CPT-4 G0467 Sep 01, 2016 Vital Signs Date/Time: Sep 01, 2016 Cardiac Monitoring Heart Rate 96 bpm Weight 382 lbs Height 73 in BMI 50.39 Index Blood Pressure Diastolic 82 mmHg Blood Pressure Systolic 140 mmHg Results No Known Results Summary Purpose eClinicalWorks Submission
--- OUTSIDE RECORDS SUMMARY | 2017-09-20 09:24 | XMS REPORT ---
Author Author LINDA NDIAYE [facility] eClinicalWorks Address Unknown Phone Unavailable Care Team Providers Care Organizational Effectiveness Director Name Role Phone LINDA NDIAYE Unavailable Allergies [...] End Date Status Dosage Metoprolol Succinate ER [facility] 11031056120 50 MG orally once TAKE ONE TABLET BY MOUTH ONCE DAILY Results No Known Results Summary Purpose eClinicalWorks Submission
--- OUTSIDE RECORDS SUMMARY | 2017-09-20 09:24 | XMS REPORT ---
Author Author ZELDA LINDA Organization [facility] Address [address] [place] [address] Care Team Providers Care Reversal Print Inspector Name Role Phone LINDA NDIAYE Unavailable PROBLEMS Type Condition ICD9-CM Code [id number] Code Onset Dates Condition Status SNOMED Code Problem Other viral agents as the cause of diseases classified elsewhere B97.89 Active 858489383 Problem Social phobia, generalized F40.11 Active 94757622 Problem Acute upper respiratory infection, unspecified J06.9 Active 801791494 Problem 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.22 Active 93531926 Problem 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 26257044 Problem Osteoarthritis of knee, unspecified M17.9 Active 360069867 Problem Dysthymic disorder F34.1 Active 32599995 Problem Mixed obsessional thoughts and acts F42.2 Active 98983551 Problem Mild episode of recurrent major depressive disorder F33.0 Active 409799076 Problem Panic disorder F41.0 Active 666376102 Problem Morbid obesity E66.01 Active 011735963 Problem Anxiety F41.9 Active 03398738 Problem Pelvic pain in male R10.2 Active 49356239 Problem HTN (hypertension) I10 Active 98000688 Problem Degenerative disc disease at L5-S1 level M51.36 Active 73913232 Problem Chronic pain G89.29 Active 54927792 Problem BPH (benign prostatic hyperplasia) N40.0 Active 604179587 Problem Social phobia F40.10 Active 79674963 Problem Pain in right knee M25.561 Active 102572874 ALLERGIES Unknown Allergies SOCIAL HISTORY No smoking Hx information available PLAN OF CARE VITAL SIGNS MEDICATIONS Medication Instructions Dosage Frequency Start Date End Date Duration Status Hydrocodone-Acetaminophen 10-325 MG Orally 3 times a day 1 tablet as needed 8h 18 Oct, 2016 Active RESULTS No Results PROCEDURES No Known procedures IMMUNIZATIONS No Known Immunizations
--- OUTSIDE RECORDS SUMMARY | 2017-09-20 09:24 | XMS REPORT ---
Author Author GABRIELLE SUTHERLAND Organization [facility] Address [address] [place] [address] Care Team Providers Care Language Arts Teacher Name Role Phone WAYNE SUTHERLANDTOD Unavailable PROBLEMS Type Condition ICD9-CM Code [id number] Code Onset Dates Condition Status SNOMED Code Problem Other viral agents as the cause of diseases classified elsewhere B97.89 Active 619599166 Problem Dysthymic disorder F34.1 Active 45844223 Problem Acute upper respiratory infection, unspecified J06.9 Active 407465957 Problem 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.22 Active 54238809 Problem 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 67984154 Problem Osteoarthritis of knee, unspecified M17.9 Active 957329307 Problem Social phobia, generalized F40.11 Active 32543278 Problem Mixed obsessional thoughts and acts F42.2 Active 57282147 Problem Mild episode of recurrent major depressive disorder F33.0 Active 946072111 Problem Social phobia F40.10 Active 27308280 Problem Anxiety F41.9 Active 73469477 Problem Pelvic pain in male R10.2 Active 10110464 Problem Panic disorder F41.0 Active 624352209 Problem Degenerative disc disease at L5-S1 level M51.36 Active 00758947 Problem HTN (hypertension) I10 Active 84288308 Problem Chronic pain G89.29 Active 35845137 Problem Pain in right knee M25.561 Active 923108256 Problem Morbid obesity E66.01 Active 373961156 Problem BPH (benign prostatic hyperplasia) N40.0 Active 315355704 ALLERGIES Unknown Allergies SOCIAL HISTORY No smoking Hx information available PLAN OF CARE Activity Details Follow Up 3 Weeks Reason: VITAL SIGNS Height 73 in 2016-10-08 Weight 380.1 lbs 2016-10-08 Heart Rate 92 bpm 2016-10-08 Respiratory Rate 22 2016-10-08 BMI 50.14 kg/m2 2016-10-08 Blood pressure systolic 148 mmHg 2016-10-08 Blood pressure diastolic 98 mmHg 2016-10-08 MEDICATIONS Medication Instructions Dosage Frequency Start Date End Date Duration Status Xanax 1 MG Orally Twice a day 1 tablet 12h Active Metoprolol Succinate ER 50 mg TAKE ONE TABLET BY MOUTH ONCE DAILY Active Cheratussin AC 100-10 MG/5ML Orally every 4 hrs 5 ml 4h Aug, Active Zithromax Z-Vidal 250 MG Orally Once a day 2 tablets on the first day, then 1 tablet daily for 4 days 24h Aug, 5 day(s) Active Hydrochlorothiazide 12.5 MG Orally Once a day 1 capsule by Oral route 1 time per day take in am for blood pressure 24h 30 Active Wheelchair N/A as directed Aug, Active Albuterol Sulfate HFA 108 (90 Base) MCG/ACT Inhalation every 4 hrs 2 puffs as needed 4h Aug, Active Lisinopril 40 MG oral once a day TAKE ONE TABLET BY MOUTH ONCE DAILY 24h 30 Active Verapamil HCl CR 360 MG Orally Once a day 1 capsule in the morning 24h Active Diovan 320 MG Orally Once a day 1 tablet 24h Active Rexulti 0.5 MG Orally Once a day 1 tablet 24h Sep, Active Hydrocodone-Acetaminophen 10-325 MG Orally 3 times a day 1 tablet as needed 8h Aug, Active Clonazepam 0.5 MG Orally Twice a day 1 tablet 12h Sep, Active Trazodone HCl 50 mg Orally Once a day 1 tablet at bedtime as needed 24h Active RESULTS No Results PROCEDURES Procedure Date Ordered Related Diagnosis Body Site [facility] VISIT ESTABLISHED PATIENT Oct 08, 2016 Office Visit, Est Pt., Level 2 Oct 08, 2016 IMMUNIZATIONS No Known Immunizations
--- OUTSIDE RECORDS SUMMARY | 2017-09-20 09:24 | XMS REPORT ---
Author Author ZELDA LINDA Organization [facility] Address [address] [place] [address] Care Team Providers Care Glass Sander Name Role Phone LINDA NDIAYE Unavailable PROBLEMS Type Condition ICD9-CM Code [id number] Code Onset Dates Condition Status SNOMED Code Problem Other viral agents as the cause of diseases classified elsewhere B97.89 Active 522439825 Problem Social phobia, generalized F40.11 Active 76991930 Problem Acute upper respiratory infection, unspecified J06.9 Active 265968977 Problem 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.22 Active 85258375 Problem 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 32598477 Problem Osteoarthritis of knee, unspecified M17.9 Active 523101991 Problem Dysthymic disorder F34.1 Active 00259613 Problem Mixed obsessional thoughts and acts F42.2 Active 69214255 Problem Mild episode of recurrent major depressive disorder F33.0 Active 116499895 Problem Panic disorder F41.0 Active 508717185 Problem Morbid obesity E66.01 Active 279410127 Problem Anxiety F41.9 Active 64679416 Problem Pelvic pain in male R10.2 Active 08673321 Problem HTN (hypertension) I10 Active 03474492 Problem Degenerative disc disease at L5-S1 level M51.36 Active 27860243 Problem Chronic pain G89.29 Active 58420660 Problem BPH (benign prostatic hyperplasia) N40.0 Active 523575022 Problem Social phobia F40.10 Active 96493958 Problem Pain in right knee M25.561 Active 021663816 ALLERGIES Substance Reaction Event Type Date Status Prozac Unknown Drug Allergy February, Active SOCIAL HISTORY Never Assessed PLAN OF CARE Activity Details Follow Up 3 Months Reason: VITAL SIGNS Height 73 in 2017-03-17 Weight 393.2 lbs 2017-03-17 Temperature 98.5 degrees Fahrenheit 2017-03-17 Heart Rate 100 bpm 2017-03-17 Respiratory Rate 24 2017-03-17 BMI 51.87 kg/m2 2017-03-17 Blood pressure systolic 152 mmHg 2017-03-17 Blood pressure diastolic 107 mmHg 2017-03-17 MEDICATIONS Medication Instructions Dosage Frequency Start Date End Date Duration Status Albuterol Sulfate HFA 108 (90 Base) MCG/ACT Inhalation every 4 hrs 2 puffs as needed 4h Aug, Active Ibuprofen 800 MG Orally 3 times a day 1 tablet with food or milk as needed 8h 30 days Active Wheelchair N/A as directed Aug, Active Metoprolol Succinate ER 50 mg TAKE ONE TABLET BY MOUTH ONCE DAILY 30 Active Xanax 0.25 MG Orally Twice a day 1 tablet 12h February, Active Hydrocodone-Acetaminophen 10-325 MG Orally on the March 4 times a day 1 tablet as needed 6h February, Mar, 28 days Active Lisinopril 40 MG oral once a day TAKE ONE TABLET BY MOUTH ONCE DAILY 24h 30 Active Trazodone HCl 50 mg Orally Once a day 1 tablet at bedtime as needed 24h Active Hydrochlorothiazide 12.5 MG Orally Once a day 1 capsule by Oral route 1 time per day take in am for blood pressure 24h 30 Active Verapamil HCl CR 360 MG Orally Once a day 1 capsule in the morning 24h 30 Active Diovan 320 MG Orally Once a day 1 tablet 24h 30 Active RESULTS Name Result Date Reference Range CBC 2017-03-17 WBC 9.0 3.4-10.8 RBC 5.27 4.14-5.80 Hemoglobin 15.1 12.6-17.7 Hematocrit 45.1 37.5-51.0 MCV 86 79-97 MCH 28.7 26.6-33.0 MCHC 33.5 31.5-35.7 RDW 13.4 12.3-15.4 Platelets 279 150-379 Neutrophils 74 Lymphs 17 Monocytes 6 Eos 2 Basos 0 Neutrophils (Absolute) 6.7 1.4-7.0 Lymphs (Absolute) 1.6 0.7-3.1 Monocytes(Absolute) 0.5 0.1-0.9 Eos (Absolute) 0.2 0.0-0.4 Baso (Absolute) 0.0 0.0-0.2 Immature Granulocytes 1 Immature Grans (Abs) 0.1 0.0-0.1 PSA 2017-03-17 Prostate Specific Ag, Serum 0.2 0.0-4.0 LIPID PANEL 2017-03-17 Cholesterol, Total 168 100-199 Triglycerides 101 0-149 HDL Cholesterol 43 >39 VLDL Cholesterol George 20 5-40 LDL Cholesterol Calc 105 0-99 Comment: CMP 2017-03-17 Glucose, Serum 237 65-99 BUN 9 6-24 Creatinine, Serum 0.62 0.76-1.27 eGFR If NonAfricn Am 121 >59 eGFR If Africn Am 139 >59 BUN/Creatinine Ratio 15 9-20 Sodium, Serum 139 134-144 Potassium, Serum 4.2 3.5-5.2 Chloride, Serum 93 96-106 Carbon Dioxide, Total 23 18-29 Calcium, Serum 9.4 8.7-10.2 Protein, Total, Serum 7.8 6.0-8.5 Albumin, Serum 4.2 3.5-5.5 Globulin, Total 3.6 1.5-4.5 A/G Ratio 1.2 1.2-2.2 Bilirubin, Total 0.5 0.0-1.2 Alkaline Phosphatase, S 99 39-117 AST (SGOT) 27 0-40 ALT (SGPT) 38 0-44 PROCEDURES Procedure Date Ordered Result [facility] VISIT ESTABLISHED PATIENT March 17, 2017 VENIPUNCT, ROUTINE* March 17, 2017 IMMUNIZATIONS No Known Immunizations MEDICAL (GENERAL) HISTORY Type Description Date Medical History hypertension Medical History morbid obesity Medical History anxiety Hospitalization History ER visit due to panic attacks Hospitalization History chest pain
--- OUTSIDE RECORDS SUMMARY | 2017-09-20 09:24 | XMS REPORT ---
Author Author LINDA NDIAYE Organization [facility] Address [address] [place] [address] Care Team Providers Care Stone Belt Sander Name Role Phone LINDA NDIAYE Unavailable PROBLEMS Type Condition ICD9-CM Code [id number] Code Onset Dates Condition Status SNOMED Code Problem Other viral agents as the cause of diseases classified elsewhere B97.89 Active 421735412 Problem Social phobia, generalized F40.11 Active 73900234 Problem Acute upper respiratory infection, unspecified J06.9 Active 274187402 Problem 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.22 Active 47928244 Problem 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 35721262 Problem Osteoarthritis of knee, unspecified M17.9 Active 405105140 Problem Dysthymic disorder F34.1 Active 09652507 Problem Mixed obsessional thoughts and acts F42.2 Active 70992245 Problem Mild episode of recurrent major depressive disorder F33.0 Active 966775648 Problem Panic disorder F41.0 Active 758944131 Problem Morbid obesity E66.01 Active 463181547 Problem Anxiety F41.9 Active 51654585 Problem Pelvic pain in male R10.2 Active 96305728 Problem HTN (hypertension) I10 Active 86696652 Problem Degenerative disc disease at L5-S1 level M51.36 Active 56293727 Problem Chronic pain G89.29 Active 53055567 Problem BPH (benign prostatic hyperplasia) N40.0 Active 605573327 Problem Social phobia F40.10 Active 80487276 Problem Pain in right knee M25.561 Active 912519432 ALLERGIES No Information SOCIAL HISTORY Never Assessed PLAN OF CARE VITAL SIGNS MEDICATIONS Medication Instructions Dosage Frequency Start Date End Date Duration Status Hydrocodone-Acetaminophen 10-325 MG Orally 3 times a day 1 tablet as needed 8h 15 Nov, 2016 Dec, 28 days Active RESULTS No Results PROCEDURES No Known procedures IMMUNIZATIONS No Known Immunizations MEDICAL (GENERAL) HISTORY Type Description Date Medical History hypertension Medical History morbid obesity Medical History anxiety Hospitalization History ER visit due to panic attacks Hospitalization History chest pain
--- OUTSIDE RECORDS SUMMARY | 2017-09-20 09:24 | XMS REPORT ---
Author Author LINDA NDIAYE [facility] eClinicalWorks Address Unknown Phone Unavailable Care Team Providers Care General Internal Medicine Physician Name Role Phone LINDA NDIAYE CP Unavailable Allergies, Adverse Reactions, Alerts Substance Reaction Event Type Prozac Info Not Available Drug Allergy Problems Problem Type Condition ICD-9 Code Onset Dates Condition Status Assessment Panic disorder without agoraphobia 300.01 Active Assessment Essential hypertension, benign 401.1 Active Assessment Anxiety state, unspecified 300.00 Active Problem Morbid obesity 278.01 Active Problem Other chronic pain 338.29 Active Problem Pain in joint, pelvic region and thigh 719.45 Active Problem Panic disorder without agoraphobia 300.01 Active Problem Social phobia 300.23 Active Problem Essential hypertension, benign 401.1 Active Problem Anxiety state, unspecified 300.00 Active Assessment Insomnia 780.52 Active Assessment Other chronic pain 338.29 Active Assessment Morbid obesity 278.01 Active Assessment Social phobia 300.23 Active Medications Medication Code System Code Instructions Start Date End Date Status Dosage Lisinopril [facility] [address]-83 40 MG Orally Once a day January 15, 2015 take 1 tablet by Oral route 1 time per day for blood pressure Metoprolol Succinate ER [facility] [address]-21 50 MG Orally Once a day Jun 06, 2015 1 tablet Xanax [facility] [address]-61 1 MG Orally Twice a day PRN January 03, 2015 1 tablet Blood Pressure Cuff [facility] [address]62 1 Once a day Jun 06, 2015 as directed Ibuprofen [facility] [address]-78 800 MG Three times a day January 15, 2015 Jul 22, 2015 take 1 tablet by Oral route 3 times per day with food for pain. take with food. Diovan [facility] [address]-50 320 MG Orally Once a day January 15, 2015 1 Tablet by Po route 1 time per day for blood pressure Verapamil HCl CR [facility] [address]-63 360 MG Orally Once a day 2015 1 capsule in the morning Ambien [facility] [address]-05 10 MG Orally once daily - PRN insomnia January 15, 2015 1 tablet at bedtime as needed Hydrocodone-Acetaminophen [facility] [address]-27 10-325 MG Orally 3 times a day January 03, 2015 Jun 22, 2015 1 tablet as needed Hydrochlorothiazide [facility] [address]-51 12.5 MG Orally Once a day January 15, 2015 1 capsule by Oral route 1 time per day take in am for blood pressure Procedures Procedure Coding System Code Date Office Visit, Est Pt., Level 4 CPT-4 46073 Jun 06, 2015 [facility] VISIT ESTABLISHED PATIENT CPT-4 G0467 Jun 06, 2015 Vital Signs Date/Time: Jun 06, 2015 Temperature 97.1 F Weight 373.6 lbs Height 73 in BMI 49.29 Index Blood Pressure Diastolic 100 mmHg Blood Pressure Systolic 162 mmHg Cardiac Monitoring Heart Rate 100 bpm Results No Known Results Summary Purpose eClinicalWorks Submission
--- OUTSIDE RECORDS SUMMARY | 2017-09-20 09:24 | XMS REPORT ---
Author Author GABRIELLE SUTHERLAND Organization [facility] Address [address] [place] [address] Care Team Providers Care Pig Lead Melter Helper Name Role Phone GABRIELLE SUTHERLAND Unavailable PROBLEMS Type Condition ICD9-CM Code [id number] Code Onset Dates Condition Status SNOMED Code Problem Other viral agents as the cause of diseases classified elsewhere B97.89 Active 084227600 Problem Social phobia, generalized F40.11 Active 25825430 Problem Acute upper respiratory infection, unspecified J06.9 Active 559975581 Problem 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.22 Active 78715633 Problem 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 57858767 Problem Osteoarthritis of knee, unspecified M17.9 Active 136975187 Problem Dysthymic disorder F34.1 Active 28877517 Problem Mixed obsessional thoughts and acts F42.2 Active 83209442 Problem Mild episode of recurrent major depressive disorder F33.0 Active 091130061 Problem Panic disorder F41.0 Active 494901349 Problem Morbid obesity E66.01 Active 337083202 Problem Anxiety F41.9 Active 09603003 Problem Pelvic pain in male R10.2 Active 47172638 Problem HTN (hypertension) I10 Active 64117429 Problem Degenerative disc disease at L5-S1 level M51.36 Active 00290579 Problem Chronic pain G89.29 Active 80628787 Problem BPH (benign prostatic hyperplasia) N40.0 Active 284598609 Problem Social phobia F40.10 Active 48560107 Problem Pain in right knee M25.561 Active 150657132 ALLERGIES Unknown Allergies SOCIAL HISTORY No smoking Hx information available PLAN OF CARE VITAL SIGNS MEDICATIONS Medication Instructions Dosage Frequency Start Date End Date Duration Status Clonazepam 0.5 MG Orally Twice a day 1 tablet 12h 16 Sep, 2016 30 days Active RESULTS No Results PROCEDURES No Known procedures IMMUNIZATIONS No Known Immunizations
--- OUTSIDE RECORDS SUMMARY | 2017-09-20 09:24 | XMS REPORT ---
Author Author LINDA NDIAYE [facility] eClinicalWorks Address Unknown Phone Unavailable Care Team Providers Care Spring Floor Service Worker Name Role Phone LINDA NDIAYE CP Unavailable [...] Start Date End Date Status Dosage Alprazolam [facility] [address]-85 1 MG Orally Three times a day 1 tablet Results No Known Results Summary Purpose eClinicalWorks Submission
--- OUTSIDE RECORDS SUMMARY | 2017-09-20 09:24 | XMS REPORT ---
Author Author LINDA NDIAYE [facility] eClinicalWorks Address Unknown Phone Unavailable Care Team Providers Care Whitewasher Name Role Phone LINDA NDIAYE Unavailable Allergies No Known Allergies Problems Problem Type Condition Code Onset Dates Condition Status Problem Chronic pain G89.29 Active Problem Anxiety F41.9 Active Problem Morbid obesity E66.01 Active Problem Pelvic pain in male R10.2 Active Problem Social phobia F40.10 Active Problem Panic disorder F41.0 Active Medications Medication Code System Code Instructions Start Date End Date Status Dosage Verelan [facility] [address]-59 180 MG Orally Once a day Sep 04, 2015 2 capsule Results No Known Results Summary Purpose eClinicalWorks Submission
--- OUTSIDE RECORDS SUMMARY | 2017-09-20 09:25 | XMS REPORT ---
Author Author LINDA NDIAYE [facility] eClinicalWorks Address Unknown Phone Unavailable Care Team Providers Care Lunchroom Worker Name Role Phone LINDA NDIAYE CP [...] Instructions Start Date End Date Status Dosage Natroba [facility] [address]-06 0.9 % Externally as directed Jun 04, 2016 as directed Results No Known Results Summary Purpose eClinicalWorks Submission
--- OUTSIDE RECORDS SUMMARY | 2017-09-20 09:25 | XMS REPORT ---
Author Author LINDA NDIAYE [facility] eClinicalWorks Address Unknown Phone Unavailable Care Team Providers Care Medical Representative Name Role Phone LINDA NDIAYE CP Unavailable Allergies, Adverse Reactions, Alerts Substance Reaction Event Type Prozac Info Not Available Drug Allergy Problems Problem Type Condition ICD-9 Code Onset Dates Condition Status Assessment Morbid obesity 278.01 Active Problem Social phobia 300.23 Active Assessment Pain in joint, pelvic region and thigh 719.45 Active Assessment Constipation 564.00 Active Assessment Essential hypertension, benign 401.1 Active Problem Pain in joint, pelvic region and thigh 719.45 Active Problem Morbid obesity 278.01 Active Problem Constipation 564.00 Active Problem Anxiety state, unspecified 300.00 Active Problem Panic disorder without agoraphobia 300.01 Active Problem Other chronic pain 338.29 Active Problem Essential hypertension, benign 401.1 Active Medications Medication Code System Code Instructions Start Date End Date Status Dosage Diovan [facility] [address]-30 320 MG Orally Once a day January 15, 2015 1 Tablet by Po route 1 time per day for blood pressure Ambien [facility] [address]-91 10 MG Orally once daily - PRN insomnia January 15, 2015 1 tablet at bedtime as needed MiraLax [facility] [address]-67 17 gm/dose Orally Once a day Jun 24, 2015 Oct 22, 2015 1 packet mixed with 8 ounces of fluid Ibuprofen [facility] [address]-62 800 MG Three times a day January 15, 2015 Jul 22, 2015 take 1 tablet by Oral route 3 times per day with food for pain. take with food. Hydrochlorothiazide [facility] [address]-48 12.5 MG Orally Once a day January 15, 2015 1 capsule by Oral route 1 time per day take in am for blood pressure Lisinopril [facility] [address]-23 40 MG Orally Once a day January 15, 2015 take 1 tablet by Oral route 1 time per day for blood pressure Xanax [facility] [address]-32 1 MG Orally Twice a day PRN January 03, 2015 1 tablet Verapamil HCl CR [facility] [address]-61 360 MG Orally Once a day 2015 1 capsule in the morning Metoprolol Succinate ER [facility] [address]-44 50 MG Orally Once a day Jun 06, 2015 1 tablet Procedures Procedure Coding System Code Date Office Visit, Est Pt., Level 4 CPT-4 52932 Jun 24, 2015 [facility] VISIT ESTABLISHED PATIENT CPT-4 G0467 Jun 24, 2015 Vital Signs Date/Time: Jun 24, 2015 Temperature 98.0 F Weight 267 lbs Height 73 in BMI 35.22 Index Blood Pressure Diastolic 88 mmHg Blood Pressure Systolic 144 mmHg Cardiac Monitoring Heart Rate 90 bpm Results No Known Results Summary Purpose eClinicalWorks Submission
--- OUTSIDE RECORDS SUMMARY | 2017-09-20 09:25 | XMS REPORT ---
Author Author LINDA NDIAYE [facility] eClinicalWorks Address Unknown Phone Unavailable Care Team Providers Care Typewriter Mechanic Name Role Phone LINDA NDIAYE Unavailable Allergies [...]
--- OUTSIDE RECORDS SUMMARY | 2017-09-20 09:25 | XMS REPORT ---
Author Author LINDA NDIAYE [facility] eClinicalWorks Address Unknown Phone Unavailable Care Team Providers Care Local Bulk Driver Name Role Phone LINDA NDIAYE CP Unavailable Allergies, Adverse Reactions, Alerts Substance Reaction Event Type Prozac Info Not Available Drug Allergy Problems Problem Type Condition ICD-9 Code Onset Dates Condition Status Assessment Essential hypertension, benign 401.1 Active Problem Morbid obesity 278.01 Active Problem Other chronic pain 338.29 Active Problem Pain in joint, pelvic region and thigh 719.45 Active Problem Panic disorder without agoraphobia 300.01 Active Problem Social phobia 300.23 Active Problem Essential hypertension, benign 401.1 Active Problem Anxiety state, unspecified 300.00 Active Medications Medication Code System Code Instructions Start Date End Date Status Dosage Lisinopril [facility] [address]-63 40 MG Orally Once a day January 15, 2015 take 1 tablet by Oral route 1 time per day for blood pressure Diovan [facility] [address]-46 320 MG Orally Once a day January 15, 2015 1 Tablet by Po route 1 time per day for blood pressure Ambien [facility] [address]-45 10 MG Orally once daily - PRN insomnia January 15, 2015 1 tablet at bedtime as needed Xanax [facility] [address]-47 1 MG Orally Twice a day PRN January 03, 2015 1 tablet Hydrocodone-Acetaminophen [facility] [address]-99 10-325 MG Orally 3 times a day January 03, 2015 Jun 22, 2015 1 tablet as needed Hydrochlorothiazide [facility] [address]-45 12.5 MG Orally Once a day January 15, 2015 1 capsule by Oral route 1 time per day take in am for blood pressure Verapamil HCl CR [facility] [address]-74 360 MG Orally Once a day 2015 1 capsule in the morning Ibuprofen [facility] [address]-75 800 MG Three times a day January 15, 2015 Jul 22, 2015 take 1 tablet by Oral route 3 times per day with food for pain. take with food. Vital Signs Date/Time: Jun 05, 2015 Temperature 99.0 F Weight 373.6 lbs Height 73 in BMI 49.29 Index Blood Pressure Diastolic 109 mmHg Blood Pressure Systolic 170 mmHg Cardiac Monitoring Heart Rate 120 bpm Results No Known Results Summary Purpose eClinicalWorks Submission
--- OUTSIDE RECORDS SUMMARY | 2017-09-20 09:25 | XMS REPORT ---
Author Author LINDA NDIAYE Organization [facility] Address [address] [place] [address] Care Team Providers Care Electric Wirer Name Role Phone LINDA NDIAYE Unavailable PROBLEMS Type Condition ICD9-CM Code [id number] Code Onset Dates Condition Status SNOMED Code Problem Other viral agents as the cause of diseases classified elsewhere B97.89 Active 757152440 Problem Social phobia, generalized F40.11 Active 44931478 Problem Acute upper respiratory infection, unspecified J06.9 Active 032949428 Problem 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.22 Active 27442539 Problem 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 00858931 Problem Osteoarthritis of knee, unspecified M17.9 Active 001942774 Problem Dysthymic disorder F34.1 Active 87458379 Problem Mixed obsessional thoughts and acts F42.2 Active 17290310 Problem Mild episode of recurrent major depressive disorder F33.0 Active 227763472 Problem Panic disorder F41.0 Active 559222770 Problem Morbid obesity E66.01 Active 975327008 Problem Anxiety F41.9 Active 73999921 Problem Pelvic pain in male R10.2 Active 84145309 Problem HTN (hypertension) I10 Active 14447112 Problem Degenerative disc disease at L5-S1 level M51.36 Active 11801049 Problem Chronic pain G89.29 Active 03689149 Problem BPH (benign prostatic hyperplasia) N40.0 Active 834025658 Problem Social phobia F40.10 Active 57667558 Problem Pain in right knee M25.561 Active 160876301 ALLERGIES No Information SOCIAL HISTORY Never Assessed PLAN OF CARE VITAL SIGNS MEDICATIONS Unknown Medications RESULTS No Results PROCEDURES No Known procedures IMMUNIZATIONS No Known Immunizations MEDICAL (GENERAL) HISTORY Type Description Date Medical History hypertension Medical History morbid obesity Medical History anxiety Hospitalization History ER visit due to panic attacks Hospitalization History chest pain
--- OUTSIDE RECORDS SUMMARY | 2017-09-20 09:25 | XMS REPORT ---
Author Author LINDA NDIAYE [facility] eClinicalWorks Address Unknown Phone Unavailable Care Team Providers Care Uplands Division Director Name Role Phone LINDA NDIAYE CP Unavailable [...] Start Date End Date Status Dosage Alprazolam [facility] [address]-84 1 MG Orally Three times a day 1 tablet Results No Known Results Summary Purpose eClinicalWorks Submission
--- OUTSIDE RECORDS SUMMARY | 2017-09-20 09:25 | XMS REPORT ---
Author Author LINDA NDIAYE [facility] eClinicalWorks Address Unknown Phone Unavailable Care Team Providers Care Clerk Guide Name Role Phone LINDA NDIAYE CP Unavailable [...] Instructions Start Date End Date Status Dosage Zithromax Z-Vidal [facility] [address]-05 250 MG Orally Once a day Sep 14, 2016 2 tablets on the first day, then 1 tablet daily for 4 days Hydrocodone-Acetaminophen [facility] [address]-76 10-325 MG Orally 3 times a day Sep 14, 2016 1 tablet as needed Xanax [facility] [address]-90 1 MG Orally Twice a day 1 tablet Results No Known Results Summary Purpose eClinicalWorks Submission
--- OUTSIDE RECORDS SUMMARY | 2017-09-20 09:25 | XMS REPORT ---
Author Author LINDA NDIAYE Organization eClinicalWorks Address Unknown Phone Unavailable Care Team Providers Care Chiropractor Sole Practitioner Name Role Phone LINDA NDIAYE Unavailable Allergies [...] Start Date End Date Status Dosage Hydrochlorothiazide [facility] [address]-07 12.5 MG Orally Once a day January 15, 2015 1 capsule by Oral route 1 time per day take in am for blood pressure Lisinopril [facility] [address]-20 40 MG Orally Once a day January 15, 2015 take 1 tablet by Oral route 1 time per day for blood pressure Diovan [facility] [address]-42 320 MG Orally Once a day January 15, 2015 1 Tablet by Po route 1 time per day for blood pressure Results No Known Results Summary Purpose eClinicalWorks Submission
--- OUTSIDE RECORDS SUMMARY | 2017-09-20 09:25 | XMS REPORT ---
Author Author JASMYNE VANCE [facility] eClinicalWorks Address Unknown Phone Unavailable Care Team Providers Care Seasonal Driver Name Role Phone JASMYNE VANCE CP Unavailable Allergies No Known Allergies Problems Problem Type Condition Code Onset Dates Condition Status Problem Pelvic pain in male R10.2 Active Problem Social phobia F40.10 Active Problem Panic disorder F41.0 Active Assessment Chondromalacia, right knee M94.261 Active Problem Pain in right knee M25.561 Active Problem HTN (hypertension) I10 Active Problem BPH (benign prostatic hyperplasia) N40.0 Active Problem Chronic pain G89.29 Active Problem Anxiety F41.9 Active Problem Degenerative disc disease at L5-S1 level M51.36 Active Problem Morbid obesity E66.01 Active Medications No Known Medications Procedures Procedure Coding System Code Date Office Visit, Est Pt., Level 3 CPT-4 97045 April 29, 2016 [facility] EST[facility] PATIENT CPT-4 G0467 April 29, 2016 Vital Signs Date/Time: April 29, 2016 Blood Pressure Diastolic 98 mmHg Blood Pressure Systolic 158 mmHg Height 73 in Results No Known Results Summary Purpose eClinicalWorks Submission
--- OUTSIDE RECORDS SUMMARY | 2017-09-20 09:25 | XMS REPORT ---
Author Author LINDA NDIAYE [facility] eClinicalWorks Address Unknown Phone Unavailable Care Team Providers Care Criminal Justice Department Chair Name Role Phone LINDA NDIAYE Unavailable Allergies No Known Allergies Problems Problem Type Condition Code Onset Dates Condition Status Problem Chronic pain G89.29 Active Problem Anxiety F41.9 Active Problem Morbid obesity E66.01 Active Problem Pelvic pain in male R10.2 Active Problem Social phobia F40.10 Active Problem Panic disorder F41.0 Active Medications Medication Code System Code Instructions Start Date End Date Status Dosage Hydrochlorothiazide [facility] 64355271330 12.5 MG Orally Once a day 1 capsule by Oral route 1 time per day take in am for blood pressure Diovan [facility] 06600118063 320 MG Orally Once a day 1 Tablet by Po route 1 time per day for blood pressure Metoprolol Succinate ER [facility] 86420549254 50 MG orally once TAKE ONE TABLET BY MOUTH ONCE DAILY Results No Known Results Summary Purpose eClinicalWorks Submission
--- OUTSIDE RECORDS SUMMARY | 2017-09-20 09:25 | XMS REPORT | Continuity of Care Document ---
Author Author [facility] Organization [facility] Address Unknown Phone Unavailable Allergies Active Description Code Type Severity Reaction Onset Reported/Identified Relationship to Patient Clinical Status Yes No Known Drug Allergies [id number] Drug Allergy Unknown N/ A 03/12/2012 Medications Problems Date Dx Coded Attending Type Code Diagnosis Diagnosed By 03/12/2012 Ot 562.11 DIVERTICULITIS COLON (W/O MENT OF HEMORR 03/12/2012 Ot 789.00 ABDOMINAL PAIN, UNSPECIFIED SITE 2012 Ot 289.3 LYMPHADENITIS NOS 2012 Ot 380.10 INFEC OTITIS EXTERNA NOS 2012 Ot 388.70 OTALGIA NOS 11/14/2013 JIMMY ESPINOZA DO Ot 785.1 PALPITATIONS 02/13/2014 JIMMY ESPINOZA DO Ot 785.1 PALPITATIONS 12/24/2014 ASHA ACE APRNINA R 278.01 MORBID OBESITY 12/24/2014 MALKA PERDOMO CODY R 338.29 OTHER CHRONIC PAIN 12/24/2014 MALKA PERDOMO CODY R 401.1 HYPERTENSION, BENIGN ESSENTIAL 12/24/2014 MALKA PERDOMO CODY R 719.45 PAIN IN JOINT INVOLVING PELVIC REGION AND THIGH 12/24/2014 CODY ACE APRN R 278.01 MORBID OBESITY 12/24/2014 MALKA PERDOMO CODY R 338.29 OTHER CHRONIC PAIN 12/24/2014 MALKA PERDOMO CODY R 401.1 HYPERTENSION, BENIGN ESSENTIAL 12/24/2014 MALKA PERDOMO CODY R 719.45 PAIN IN JOINT INVOLVING PELVIC REGION AND THIGH 12/24/2014 MALKA PERDOMO CODY R 278.01 MORBID OBESITY 12/24/2014 MALKA PERDOMO CODY R 338.29 OTHER CHRONIC PAIN 12/24/2014 MALKA PERDOMO CODY R 401.1 HYPERTENSION, BENIGN ESSENTIAL 12/24/2014 MALKA PERDOMO CODY R 719.45 PAIN IN JOINT INVOLVING PELVIC REGION AND THIGH 01/15/2015 MALKA PERDOMO CODY R 300.00 AN ANXIETY UNSPEC 01/15/2015 MALKA PERDOMO CODY R 300.01 AN PANIC DIS W/O AGORA 01/15/2015 MALKA PERDOMO CODY R 300.23 AN SOCIAL PHOBIA 01/15/2015 MALKA PERDOMO, CODY R 300.00 AN ANXIETY UNSPEC 01/15/2015 MALKA PERDOMO CODY R 300.01 AN PANIC DIS W/O AGORA 01/15/2015 MALKA PERDOMO CODY R 300.23 AN SOCIAL PHOBIA 01/15/2015 MALKA PERDOMO CODY R 300.00 AN ANXIETY UNSPEC 01/15/2015 MALKA PERDOMO CODY R 300.01 AN PANIC DIS W/O AGORA 01/15/2015 ASHA ACE APRNINA R 300.23 AN SOCIAL PHOBIA 2016 Ot 721.3 LUMBOSACRAL SPONDYLOSIS 2016 Ot 729.5 PAIN IN LIMB 2016 Ot 785.1 PALPITATIONS 2016 JP BEYER MD Ot G89.4 CHRONIC PAIN SYNDROME 2016 JP BEYER MD Ot M16.12 UNILATERAL PRIMARY OSTEOARTHRITIS, LEFT 05/26/2016 JP BEYRE MD Ot G89.4 CHRONIC PAIN SYNDROME 05/26/2016 JP BEYER MD Ot M16.12 UNILATERAL PRIMARY OSTEOARTHRITIS, LEFT Procedures Code [place] [address] XRAY CHEST 2 VIEW 01/15/2015 25169 EKG, TRACING (IN-HOUSE) 01/15/2015 65858 PSYCH DIAGNOSTIC EVALUATION 01/15/2015 78793 ROUTINE VENIPUNCTURE 01/17/2015 Cardiolog Barbra Mabry 01/17/2015 66202 CBC 01/17/2015 [id number] GFR CALC (RESULT ONLY) 01/17/2015 53637 CMP 01/17/2015 03840 LIPID PANEL 01/17 24149 MAGNESIUM 2014 83191 TSH 01/17/2015 Results Encounters ACCT No. Visit Date/Time Discharge Status Pt. Type Provider Facility Loc./Unit Complaint [id number] 2016 10:47:00 2015 13:04:00 DIS Outpatient JP BEYER MD [facility] CARD HIP OSTEOARTHRITIS [id number] 11/15/2013 12:52:00 2013 00:01:00 DIS Outpatient JIMMY ESPINOZA DO [facility] CARD [id number] 11/14/2013 16:18:00 2013 18:27:00 DIS Emergency JIMMY ESPINOZA DO [facility] ER [id number] 02/14/2014 13:00:00 Document Registration [id number] 02/06/2013 14:47:00 Document Registration [id number] 06/15/2012 15:02:00 Document Registration [id number] 04/22/2012 23:35:00 Document Registration [id number] 03/12/2012 04:12:00 Document Registration [id number] 01/17/2015 09:43:00 01/17/2015 23: 59:59 CLS Outpatient CODY ACE APRN [id number] 01/15/2015 09:57:00 01/15/2015 23: 59:59 CLS Outpatient CODY ACE APRN [id number] 01/15/2015 09:57:00 01/15/2015 23: 59:59 CLS Outpatient CODY ACE APRN
[2017-09-20 10:57] LABS: BASOPHILS % (AUTO) 0 % (0-10); EOSINOPHILS % (AUTO) 0 % (0-10); LYMPHOCYTES % (AUTO) 13 % (12-44); MEAN CORPUSCULAR HEMOGLOBIN 28 PG (25-34); MEAN CORPUSCULAR HGB CONC 33 G/DL (32-36); MEAN CORPUSCULAR VOLUME 87 FL (80-99); MONOCYTES # (AUTO) 0.7 X 10^3 (0.0-1.0); MONOCYTES % (AUTO) 8 % (0-12); NEUTROPHILS # (AUTO) 6.3 X 10^3 (1.8-7.8); NEUTROPHILS % (AUTO) 79 % (42-75); PLATELET COUNT 278 10^3/uL (130-400); RED BLOOD COUNT 4.77 10^6/uL (4.35-5.85); RED CELL DISTRIBUTION WIDTH 13.9 % (10.0-14.5)
--- NOTE | 2017-09-20 11:20 | Diagnostic Imaging Report ---
INDICATION: Bloating and shortness of breath. PA and lateral chest obtained at 11:13 a.m. and compared to 11/14/13. FINDINGS: There is cardiomegaly with central vascular congestion. There is some mild infiltrate or atelectasis in the right medial base. There is no pneumothorax or pleural fluid. IMPRESSION: Cardiomegaly and central vascular congestion. Mild infiltrate versus atelectasis in right medial base. No pleural fluid or pneumothorax. Dictated by: Dictated on workstation # [id number]
[2017-09-20 11:22] LABS: ALANINE AMINOTRANSFERASE 27 U/L (0-55); ALBUMIN 3.6 GM/DL (3.2-4.5); ANION GAP 9 MMOL/L (5-14); ASPARTATE AMINO TRANSFERASE 18 U/L (5-34); BILIRUBIN,TOTAL 1.3 MG/DL (0.1-1.0); BLOOD UREA NITROGEN 13 MG/DL (7-18); BUN/CREATININE RATIO 16; CARBON DIOXIDE 30 MMOL/L (21-32); CHLORIDE 97 MMOL/L (98-107); CREATININE SERUM 0.82 MG/DL (0.60-1.30); GFR ESTIMATED > 60; GLUCOSE 190 MG/DL (70-105); POTASSIUM 3.6 MMOL/L (3.6-5.0); SODIUM 136 MMOL/L (135-145); TOTAL PROTEIN 7.3 GM/DL (6.4-8.2)
[2017-09-20 11:27] LABS: TROPONIN I < 0.30 NG/ML (<0.30)
--- NOTE | 2017-09-20 12:22 | ED General ---
General Chief Complaint: Cardiac/General Problems Stated Complaint: SWELLING Nursing Triage Note: c/o progessive edema to a legs, scrotum, and abdomen. Mild SOA. Onset 1.5 weeks ago. Hx of hypertension. Nursing Sepsis Screen: No Definite Risk Source of Information: Patient Exam Limitations: No Limitations History of Present Illness Time Seen by Provider: 10:12 Initial Comments This 47-year-old gentleman presents to the emergency room with complaints of swelling from his feet through the lower abdomen worsening over the past 1-2 weeks. He has associated shortness of breath. He denies any chest pain. He has had less extreme episodes of edema in the past that were self resolving. Review of his medication filling record notes that he recently filled prednisone which may be exacerbating water retention. Patient states he has a history of congestive heart failure. He was seen by a classification analyst in the remote past but did not follow-up. He currently takes low-dose hydrochlorothiazide but no other diuretics. He takes multiple medications for hypertension. His edema is so tight on his lower extremities that he is a weeping from a few spots in the skin on the right lower extremity. His symptoms are severe enough at this time that he is having difficulty with ambulation. He claims good compliance with his medications. Allergies and Home Medications Allergies Coded Allergies: No Known Drug Allergies (Unverified , 03/12/12) Home Medications Furosemide 20 Mg Tablet, 20 MG PO DAILY, #10 Take 2 tablets for your first dose only. Then one tablet each morning Prescribed by: OBIE WAGNER on 09/20/17 1224 Hydrochlorothiazide 12.5 Mg Cap, 1 TAB PO DAILY, (Reported) Hydrocodone Bit/Acetaminophen 1 Each Tablet, 1-2 EACH PO Q4HR PRN, #14 Prescribed by: DANNIELLE MARAVILLA on 03/12/12 0513 Lisinopril 20 Mg Tab, 1 TAB PO HS, (Reported) Methylprednisolone 4 Mg/Dose-Pack Tab.ds.pk, 0 PO UD, #1 Prescribed by: JIMMY ESPINOZA on 04/23/12 0400 Potassium Chloride 10 Meq Tablet.er, 10 MEQ PO DAILY, #10 Prescribed by: OBIE WAGNER on 09/20/17 1224 Valsartan 320 Mg Tablet, 1 TAB PO DAILY, (Reported) Verapamil Hcl 360 Mg Cap24h.pel, 1 TAB PO DAILY, (Reported) Constitutional: no symptoms reported EENTM: no symptoms reported Respiratory: see HPI Cardiovascular: see HPI Gastrointestinal: no symptoms reported Genitourinary: no symptoms reported Musculoskeletal: no symptoms reported Skin: see HPI Psychiatric/Neurological: No Symptoms Reported Hematologic/Lymphatic: No Symptoms Reported Immunological/Allergic: no symptoms reported Past Ezawgkd-Xfgjcw-Dugjbn Hx Patient Social History Alcohol Use: Denies Use Recreational Drug Use: No Smoking Status: Never a Smoker Recent Foreign Travel: No Contact w/Someone Who Travel: No Recent Infectious Disease Expo: No Surgeries History of Surgeries: No Respiratory History of Respiratory Disorde: No Cardiovascular History of Cardiac Disorders: Yes (congestive heart failure) Cardiac Disorders: Hypertension Neurological History of Neurological Disord: No Reproductive System Hx Reproductive Disorders: No Gastrointestinal History of Gastrointestinal Di: No Musculoskeletal History of Musculoskeletal Dis: Yes (CHRONIC HIP PAIN) Endocrine History of Endocrine Disorders: No HEENT History of HEENT Disorders: No Cancer History of Cancer: No Psychosocial History of Psychiatric Problem: Yes Behavioral Health Disorders: Anxiety Integumentary History of Skin or Integumenta: No Blood Transfusions History of Blood Disorders: No Physical Exam Vital Signs Vital Sign - Last 12Hours 09/20/17 09:45 Temp 98.1 Pulse 108 Resp 20 B/P (MAP) 163/118 O2 Delivery Room Air Capillary Refill : Less Than 3 Seconds General Appearance: No Apparent Distress, WD/WN HEENT: PERRL/EOMI, Normal ENT Inspection Respiratory: Lungs Clear, Normal Breath Sounds, No Accessory Muscle Use, No Respiratory Distress, Decreased Breath Sounds (in the bases) Cardiovascular: No Edema, No Murmur, Tachycardia (mild) Gastrointestinal: Normal Bowel Sounds, Non Tender, Distended (from edema) Progress/Results/Core Measures Suspected Sepsis Recent Fever Within 48 Hours: No Infection Criteria Present: None New/Unexplained Altered Menta: No Sepsis Screen: No Definite Risk Sepsis Diagnosis: SIRS Temperature:98.1 Pulse: 108 Respiratory Rate: 20 Laboratory Tests 09/20/17 10:50: White Blood Count 8.0 Blood Pressure 163 /118 Mean: 133 Laboratory Tests 09/20/17 10:50: Creatinine 0.82, Platelet Count 278, Total Bilirubin 1.3H Results/Orders Lab Results Laboratory Tests Test 09/20/17 10:50 Range/Units White Blood Count 8.0 4.3-11.0 10^3/uL Red Blood Count 4.77 4.35-5.85 10^6/uL Hemoglobin 13.5 13.3-17.7 G/DL Hematocrit 41 40-54 % Mean Corpuscular Volume 87 80-99 FL Mean Corpuscular Hemoglobin 28 25-34 PG Mean Corpuscular Hemoglobin Concent 33 32-36 G/DL Red Cell Distribution Width 13.9 10.0-14.5 % Platelet Count 278 130-400 10^3/uL Mean Platelet Volume 10.0 7.4-10.4 FL Neutrophils (%) (Auto) 79 H 42-75 % Lymphocytes (%) (Auto) 13 12-44 % Monocytes (%) (Auto) 8 0-12 % Eosinophils (%) (Auto) 0 0-10 % Basophils (%) (Auto) 0 0-10 % Neutrophils # (Auto) 6.3 1.8-7.8 X 10^3 Lymphocytes # (Auto) 1.0 1.0-4.0 X 10^3 Monocytes # (Auto) 0.7 0.0-1.0 X 10^3 Eosinophils # (Auto) 0.0 0.0-0.3 10^3/uL Basophils # (Auto) 0.0 0.0-0.1 10^3/uL Sodium Level 136 135-145 MMOL/L Potassium Level 3.6 3.6-5.0 MMOL/L Chloride Level 97 L 98-107 MMOL/L Carbon Dioxide Level 30 21-32 MMOL/L Anion Gap 9 5-14 MMOL/L Blood Urea Nitrogen 13 7-18 MG/DL Creatinine 0.82 0.60-1.30 MG/DL Estimat Glomerular Filtration Rate > 60 BUN/Creatinine Ratio 16 Glucose Level 190 H 70-105 MG/DL Calcium Level 9.0 8.5-10.1 MG/DL Total Bilirubin 1.3 H 0.1-1.0 MG/DL Aspartate Amino Transf (AST/SGOT) 18 5-34 U/L Alanine Aminotransferase (ALT/SGPT) 27 0-55 U/L Alkaline Phosphatase 97 40-136 U/L Troponin I < 0.30 <0.30 NG/ML B-Type Natriuretic Peptide 788.9 H <100.0 PG/ML Total Protein 7.3 6.4-8.2 GM/DL Albumin 3.6 3.2-4.5 GM/DL My Orders Orders - OBIE KIDD MD Chest Pa/Lat (2 View) (09/20/17 10:22) BNP (09/20/17 10:22) Cbc With Automated Diff (09/20/17 10:22) Comprehensive Metabolic Panel (09/20/17 10:22) Troponin I (09/20/17 10:22) Saline Lock/Iv-Start (09/20/17 10:22) Ekg Tracing (09/20/17 10:22) Monitor-Rhythm Ecg Trace Only (09/20/17 10:22) Vital Signs/I&O Vital Sign - Last 12Hours 09/20/17 09:45 Temp 98.1 Pulse 108 Resp 20 B/P (MAP) 163/118 O2 Delivery Room Air Capillary Refill : Less Than 3 Seconds Blood Pressure Mean: 133 Progress Note : Progress Note Patient's workup was relatively unremarkable with the exception of cardiomegaly and congestion noted on chest x-ray. Elevated BNP correlates with this. Patient was prescribed Lasix and potassium. He was advised to take a double dose of Lasix (40 mg) today. I explained the importance of taking potassium along with Lasix. I also strongly advised him to seek referral to a classification analyst for monitoring of his congestive heart failure. I contacted [facility] and procured an appointment for him with Dr. Gutierrez at 11:20 tomorrow. ECG Initial ECG Impression Date: Sep 20, 2017 Initial ECG Impression Time: 11:16 Initial ECG Rate: 107 Initial ECG Rhythm: S.Tach Comment Sinus tachycardia with no ST elevation or depression. No abnormal intervals or axis deviation. Diagnostic Imaging Diagonstic Imaging: Xray Plain Films/CT/US/NM/MRI: chest Comments Chest x-ray viewed by me and report reviewed. See report below: NAME: L[facility]BERTO [facility] REC#: [id number] PT STATUS: REG ER : 1970 PHYSICIAN: OBIE KIDD MD ADMIT DATE: 09/20/17/ER Draft Date of Exam:09/20/17 CHEST PA/LAT (2 VIEW) INDICATION: Bloating and shortness of breath. PA and lateral chest obtained at 11:13 a.m. and compared to 11/14/13. FINDINGS: There is cardiomegaly with central vascular congestion. There is some mild infiltrate or atelectasis in the right medial base. There is no pneumothorax or pleural fluid. IMPRESSION: Cardiomegaly and central vascular congestion. Mild infiltrate versus atelectasis in right medial base. No pleural fluid or pneumothorax. Dictated on workstation # [id number] Dict: 09/20/17 1103 Trans: 09/20/17 1120 [id number] Interpreted by: LUIGI LINARES MD Departure Impression Impression: Primary Impression: Anasarca Additional Impression: Congestive heart failure Qualified Codes: I50.9 - Heart failure, unspecified Disposition: 01 HOME, SELF-CARE Condition: Stable Departure-Patient Inst. Decision time for Depature: 12:00 Referrals: [facility] (PCP/Family) Primary Care Physician Patient Instructions: CHF Add. Discharge Instructions: Take your Lasix (frusemide) every morning as prescribed. Take a double dose of two tablets today only to get started. Always take a dose of potassium with your Lasix. Elevate your feet and legs as much as possible. If possible, weigh yourself every day and record those weights for your doctor. You should know your weight decreasing every day as you lose water weight. You should gradually improve over the next several days. Return to care or call your doctor if not improving as expected or if symptoms worsen. You have an appointment with Dr. Gutierrez at [facility] at 11:20 tomorrow in addition to your establish care appointment in September. All discharge instructions reviewed with patient and/or family. Voiced understanding. Scripts Potassium Chloride (Potassium Chloride) 10 Meq Tablet.er 10 MEQ PO DAILY, #10 TAB Prov: OBIE KIDD MD 09/20/17 Furosemide (Lasix) 20 Mg Tablet 20 MG PO DAILY, #10 TAB Take 2 tablets for your first dose only. Then one tablet each morning Prov: OBIE KIDD MD 09/20/17 Copy Copies To 1: JEANMARIE GUTIERREZ MD, JOSHUA T MD Sep 20, 2017 12:22
[2017-09-20] MEDS ORDERED: POTA10TA10 PO (12:24)
[2017-09-20] MEDS ORDERED: FURO-125 PO (12:24)
[2017-09-20 12:36] VITALS: BP 142/92
== END 2017-09-20 12:36 | disposition home or self-care (01) ==
LOC: EDUNIT# 09:09 → ER 09:11
DX: I11.0 Hypertensive heart disease with heart failure (principal); I50.9 Heart failure, unspecified; R60.0 Localized edema; F41.9 Anxiety disorder, unspecified
CPT/HCPCS: 36415; 71020; 80053; 83880; 84484; 85025; 93005; 93041

== ENCOUNTER 2017-10-07 09:52 | Inpatient (IN) | payer MEDICARE, MEDICAID ==
[~2017-10-07] VITALS: Ht 162.6 cm; Wt 171.5 kg
[~2017-10-07 09:52] MED LIST changes: +FURO-125 PO; +POTA10TA10 PO
--- OUTSIDE RECORDS SUMMARY | 2017-10-07 09:59 | XMS REPORT | Clinical Summary ---
Author Author [facility] Organization [facility] Address Unknown Phone Unavailable Care Team Providers Care Director [employer] Name Role Phone PCP Unavailable Source Comments Some departments are not documenting in the electronic medical record. If you do not see the information that you expected, contact Release of Information in the Health Information Management department at [phone] for further assistance in locating additional records.[facility] Allergies Not on File Current Medications [...]
--- OUTSIDE RECORDS SUMMARY | 2017-10-07 10:04 | XMS REPORT ---
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 87622867 Problem Osteoarthritis of knee, unspecified M17.9 Active 444954053 Problem Dysthymic disorder F34.1 Active 35991767 Problem Mixed obsessional thoughts and acts F42.2 Active 20506667 Problem Mild episode of recurrent major depressive disorder F33.0 Active 210084256 Problem Panic disorder F41.0 Active 401028499 Problem Morbid obesity E66.01 Active 984220824 Problem Anxiety F41.9 Active 13087149 Problem Pelvic pain in male R10.2 Active 08740033 Problem HTN (hypertension) I10 Active 42857271 Problem Degenerative disc disease at L5-S1 level M51.36 Active 25737190 Problem Chronic pain G89.29 Active 43783618 Problem BPH (benign prostatic hyperplasia) N40.0 Active 120173034 Problem Social phobia F40.10 Active 19666942 Problem Pain in right knee M25.561 Active 563348198 ALLERGIES No Information SOCIAL HISTORY Never Assessed PLAN OF CARE VITAL SIGNS MEDICATIONS Medication Instructions Dosage Frequency Start Date End Date Duration Status Blood Glucose Test - as directed Mar, Active Blood Glucose Monitor System w/Device as directed Mar, Active RESULTS No Results PROCEDURES No Known procedures IMMUNIZATIONS No Known Immunizations MEDICAL (GENERAL) HISTORY Type Description Date Medical History hypertension Medical History morbid obesity Medical History anxiety Hospitalization History ER visit due to panic attacks Hospitalization History chest pain
--- OUTSIDE RECORDS SUMMARY | 2017-10-07 10:04 | XMS REPORT | Continuity of Care Document ---
Author Author [facility] Organization [facility] Address Unknown Phone Unavailable Allergies Active Description Code Type Severity Reaction Onset Reported/Identified Relationship to Patient Clinical Status Yes No Known Drug Allergies [id number] Drug Allergy Unknown N/A 03/12/2012 Medications There is no data. Problems Date Dx Coded Attending Type Code [...] INVOLVING PELVIC REGION AND THIGH 01/15/2015 MALKA DRILLER'S OFFSIDER, CODY R 300.00 AN ANXIETY UNSPEC 01/15/2015 MALKA DRILLER'S OFFSIDER, CODY R 300.01 AN PANIC DIS W/O AGORA 01/15/2015 MALKA DRILLER'S OFFSIDER, CODY R 300.23 AN SOCIAL PHOBIA 01/15/2015 MALKA DRILLER'S OFFSIDER, CODY R 300.00 AN ANXIETY UNSPEC 01/15/2015 MALKA DRILLER'S OFFSIDER, CODY R 300.01 AN PANIC DIS W/O AGORA 01/15/2015 MALKA MALLORYN, CODY R 300.23 AN SOCIAL PHOBIA 01/15/2015 MALKA MALLORYN, CODY R 300.00 AN ANXIETY UNSPEC 01/15/2015 MALKA MALLORYN, CODY R 300.01 AN PANIC DIS W/O AGORA 01/15/2015 MALKA MALLORYN, CODY R 300.23 AN SOCIAL PHOBIA 2016 Ot 721.3 LUMBOSACRAL SPONDYLOSIS 2016 Ot 729.5 PAIN IN LIMB 2016 Ot 785.1 PALPITATIONS 2016 PEPITO MCLEAN, JP Diaz Ot G89.4 CHRONIC PAIN SYNDROME 2016 JP BEYER MD Ot M16.12 UNILATERAL PRIMARY OSTEOARTHRITIS, LEFT 05/26/2016 JP BEYER MD Ot G89.4 CHRONIC PAIN SYNDROME 05/26/2016 JP BEYER MD Ot M16.12 UNILATERAL PRIMARY OSTEOARTHRITIS, LEFT 09/20/2017 Ot 721.3 LUMBOSACRAL SPONDYLOSIS 09/20/2017 Ot 729.5 PAIN IN LIMB 09/20/2017 Ot 785.1 PALPITATIONS 09/28/2017 OBIE KIDD MD Ot F41.9 ANXIETY DISORDER, UNSPECIFIED 09/28/2017 OBIE KIDD MD Ot I11.0 HYPERTENSIVE HEART DISEASE WITH HEART FA 09/28/2017 OBIE KIDD MD Ot I50.9 HEART FAILURE, UNSPECIFIED 09/28/2017 OBIE KIDD MD Ot R60.0 LOCALIZED EDEMA Procedures Code [place] [address] XRAY CHEST 2 VIEW 01/15/2015 75571 EKG, TRACING (IN-HOUSE) 01/15/2015 17089 PSYCH DIAGNOSTIC EVALUATION 01/15/2015 15344 ROUTINE VENIPUNCTURE 01/17/2015 Cardiolog Barbra Mabry 01/17/2015 44527 CBC 01/17/2015 7410948 GFR CALC (RESULT ONLY) 01/17/2015 64360 CMP 01/17/2015 77312 LIPID PANEL 01/17/2015 76183 MAGNESIUM 01/17/2015 00803 TSH 01/17/2015 Results Test Result Range Complete blood count (CBC) with automated white blood cell (WBC) differential - 09/20/17 10:50 Blood leukocytes automated count (number/volume) 8.0 10*3/uL 4.3-11.0 Blood erythrocytes automated count (number/volume) 4.77 10*6/uL 4.35-5.85 Venous blood hemoglobin measurement (mass/volume) 13.5 g/dL 13.3-17.7 Blood hematocrit (volume fraction) 41 % 40-54 Automated erythrocyte mean corpuscular volume 87 [foz_us] 80-99 Automated erythrocyte mean corpuscular hemoglobin (mass per erythrocyte) 28 pg 25-34 Automated erythrocyte mean corpuscular hemoglobin concentration measurement ( mass/volume) 33 g/dL 32-36 Automated erythrocyte distribution width ratio 13.9 % 10.0-14.5 Automated blood platelet count (count/volume) 278 10*3/uL 130-400 Automated blood platelet mean volume measurement 10.0 [foz_us] 7.4-10.4 Automated blood neutrophils/100 leukocytes 79 % 42-75 Automated blood lymphocytes/100 leukocytes 13 % 12-44 Blood monocytes/100 leukocytes 8 % 0-12 Automated blood eosinophils/100 leukocytes 0 % 0-10 Automated blood basophils/100 leukocytes 0 % 0-10 Blood neutrophils automated count (number/volume) 6.3 10*3 1.8-7.8 Blood lymphocytes automated count (number/volume) 1.0 10*3 1.0-4.0 Blood monocytes automated count (number/volume) 0.7 10*3 0.0-1.0 Automated eosinophil count 0.0 10*3/uL 0.0-0.3 Automated blood basophil count (count/volume) 0.0 10*3/uL 0.0-0.1 Comprehensive metabolic panel - 09/20/17 10:50 Serum or plasma sodium measurement (moles/volume) 136 mmol/L 135-145 Serum or plasma potassium measurement (moles/volume) 3.6 mmol/L 3.6-5.0 Serum or plasma chloride measurement (moles/volume) 97 mmol/L 98-107 Carbon dioxide 30 mmol/L 21-32 Serum or plasma anion gap determination (moles/volume) 9 mmol/L 5-14 Serum or plasma urea nitrogen measurement (mass/volume) 13 mg/dL 7-18 Serum or plasma creatinine measurement (mass/volume) 0.82 mg/dL 0.60-1.30 Serum or plasma urea nitrogen/creatinine mass ratio 16 NRG Serum or plasma creatinine measurement with calculation of estimated glomerular filtration rate > NRG Serum or plasma glucose measurement (mass/volume) 190 mg/dL 70-105 Serum or plasma calcium measurement (mass/volume) 9.0 mg/dL 8.5-10.1 Serum or plasma total bilirubin measurement (mass/volume) 1.3 mg/dL 0.1-1.0 Serum or plasma alkaline phosphatase measurement (enzymatic activity/volume) 97 U/L 40-136 Serum or plasma aspartate aminotransferase measurement (enzymatic activity/ volume) 18 U/L 5-34 Serum or plasma alanine aminotransferase measurement (enzymatic activity/volume ) 27 U/L 0-55 Serum or plasma protein measurement (mass/volume) 7.3 g/dL 6.4-8.2 Serum or plasma albumin measurement (mass/volume) 3.6 g/dL 3.2-4.5 Serum or plasma lithium measurement (moles/volume) - 09/20/17 10:50 BNP level 788.9 pg/mL <100.0 Serum or plasma troponin i.cardiac measurement (mass/volume) - 09/20/17 10:50 Serum or plasma troponin i.cardiac measurement (mass/volume) < ng/ mL <0.30 Encounters ACCT No. Visit Date/Time Discharge Status Pt. Type Provider Facility Loc./Unit Complaint [id number] 09/20/2017 09:11:00 09/20/2017 12:36:00 DIS Outpatient BERNABE MCLEAN, OBIE Gavin [facility] ER SWELLING [id number] 2016 10:47:00 2016 13:04:00 DIS Outpatient PEPITO MCLEAN, JP Diaz [facility] CARD HIP OSTEOARTHRITIS [id number] 11/15/2013 12:52:00 02/13/2014 00:01:00 DIS Outpatient JIMMY ESPINOZA DO [facility] CARD PALPITATIONS [id number] 11/14/2013 16:18:00 11/14/2013 18:27:00 DIS Emergency JIMMY ESPINOZA DO [facility] ER HEART FLUTTERING [id number] 02/14/2014 13:00:00 Document Registration [id number] 02/06/2013 14:47:00 Document Registration [id number] 06/15/2012 15:02:00 Document Registration [id number] 04/22/2012 23:35:00 Document Registration [id number] 03/12/2012 04:12:00 Document Registration [id number] 01/17/2015 09:43:00 01/17/2015 23:59:59 CLS Outpatient CODY ACE APRN [id number] 01/15/2015 09:57:00 01/15/2015 23:59:59 CLS Outpatient CODY ACE APRN [id number] 01/15/2015 09:57:00 01/15/2015 23:59:59 CLS Outpatient CODY ACE APRN
[2017-10-07] MEDS ORDERED: FUROSEMIDE 40 MG/4 ML INJ (LASIX) IVP ONE ×2 (10:45→12:30)
[2017-10-07] MEDS ORDERED: NS IV 1000 ML 1,000 ML IV SCH (10:45)
--- NOTE | 2017-10-07 10:48 | ED Integumentary General ---
General Chief Complaint: Abdominal/GI Problems Stated Complaint: STOMACH BLOATING Nursing Triage Note: c/o progressive edema to abdomen and extremities. Reports no improvement after last ER visit approximately 3 weeks ago. Source: patient, family History of Present Illness Time seen by provider: 10:44 Initial Comments This 47-year-old white male presents with a complaint of increasing lower extremity edema with associated anterior abdominal wall erythema. The patient was seen in the emergency Department several weeks ago for the same complaint and placed on daily Lasix. Patient improved temporarily but has subsequently had more abdominal swelling precipitating his presentation weren't Department. 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 Castillo, has asked the patient to present to the emergency department today in anticipation that he will be admitted for IV diuresis. Patient has a history of congestive heart failure. In addition the patient is a rfd-whawcai-fcghfgkxt diabetic on metformin. Patient denies associated fever, chills, chest pain, palpitations, or significant shortness of breath. Allergies and Home Medications Allergies Coded Allergies: No Known Drug Allergies (Unverified , 03/12/12) Home Medications Furosemide 20 Mg Tablet, 20 MG PO DAILY, #10 Take 2 tablets for your first dose only. Then one tablet each morning Prescribed by: OBIE WAGNER on 09/20/17 1224 Hydrochlorothiazide 12.5 Mg Cap, 1 TAB PO DAILY, (Reported) Hydrocodone Bit/Acetaminophen 1 Each Tablet, 1-2 EACH PO Q4HR PRN, #14 Prescribed by: DANNIELLE MARAVILLA on 03/12/12 0513 Lisinopril 20 Mg Tab, 1 TAB PO HS, (Reported) Methylprednisolone 4 Mg/Dose-Pack Tab.ds.pk, 0 PO UD, #1 Prescribed by: JIMMY ESPINOZA on 04/23/12 0400 Potassium Chloride 10 Meq Tablet.er, 10 MEQ PO DAILY, #10 Prescribed by: OBIE WAGNER on 09/20/17 1224 Valsartan 320 Mg Tablet, 1 TAB PO DAILY, (Reported) Verapamil Hcl 360 Mg Cap24h.pel, 1 TAB PO DAILY, (Reported) Constitutional: No chills, No fever EENTM: No ear discharge, No vision loss Respiratory: No cough, No short of breath Cardiovascular: No chest pain Gastrointestinal: No abdominal pain, other (patient is complaining of progressive swelling of his abdominal wall.) Genitourinary: No decreased output, No frequency, No hematuria Musculoskeletal: No back pain Skin: rash (patient has erythema to the anterior abdominal wall.) Psychiatric/Neurological: Denies Anxiety, Denies Depressed Endocrine: Denies Excessive Sweating, Denies Flushing Hematologic/Lymphatic: No Symptoms Reported Past Cfiunmf-Qkaizt-Rvdhgg Hx Patient Social History Alcohol Use: Denies Use Recreational Drug Use: No Smoking Status: Current Everyday Smoker Recent Foreign Travel: No Contact w/Someone Who Travel: No Recent Infectious Disease Expo: No Surgeries History of Surgeries: No Respiratory History of Respiratory Disorde: No Cardiovascular History of Cardiac Disorders: Yes (congestive heart failure) Cardiac Disorders: Hypertension Neurological History of Neurological Disord: No Reproductive System Hx Reproductive Disorders: No Gastrointestinal History of Gastrointestinal Di: No Musculoskeletal History of Musculoskeletal Dis: Yes (CHRONIC HIP PAIN) Endocrine History of Endocrine Disorders: No HEENT History of HEENT Disorders: No Cancer History of Cancer: No Psychosocial History of Psychiatric Problem: Yes Behavioral Health Disorders: Anxiety Integumentary History of Skin or Integumenta: No Blood Transfusions History of Blood Disorders: No Reviewed Nursing Assessment Reviewed/Agree w Nursing PMH: Yes Physical Exam Vital Signs Vital Sign - Last 12Hours 10/07/17 10:05 Temp 98.5 Pulse 70 Resp 16 B/P (MAP) 131/75 (93) Pulse Ox 98 O2 Delivery Room Air Capillary Refill : Less Than 3 Seconds General Appearance: WD/WN, no apparent distress HEENT: normal ENT inspection Neck: full range of motion, supple Cardiovascular: normal peripheral pulses, regular rate, rhythm Respiratory: chest non-tender, lungs clear, normal breath sounds Gastrointestinal: normal bowel sounds, non tender, distended Back: normal inspection Extremities: normal range of motion, other Neurologic/Psychiatric: no motor/sensory deficits, alert, normal mood/affect Skin: normal color, warm/dry Skin Problem Location: other (there is no erythema to the anterior abdominal wall suggestive of cellulitis.) Skin Problem Character: erythema Progress/Results/Core Measures Results/Orders Lab Results Laboratory Tests Test 10/07/17 11:15 Range/Units White Blood Count 7.1 4.3-11.0 10^3/uL Red Blood Count 4.98 4.35-5.85 10^6/uL Hemoglobin 13.7 13.3-17.7 G/DL Hematocrit 42 40-54 % Mean Corpuscular Volume 85 80-99 FL Mean Corpuscular Hemoglobin 28 25-34 PG Mean Corpuscular Hemoglobin Concent 33 32-36 G/DL Red Cell Distribution Width 14.0 10.0-14.5 % Platelet Count 277 130-400 10^3/uL Mean Platelet Volume 9.7 7.4-10.4 FL Neutrophils (%) (Auto) 79 H 42-75 % Lymphocytes (%) (Auto) 11 L 12-44 % Monocytes (%) (Auto) 9 0-12 % Eosinophils (%) (Auto) 0 0-10 % Basophils (%) (Auto) 0 0-10 % Neutrophils # (Auto) 5.6 1.8-7.8 X 10^3 Lymphocytes # (Auto) 0.8 L 1.0-4.0 X 10^3 Monocytes # (Auto) 0.7 0.0-1.0 X 10^3 Eosinophils # (Auto) 0.0 0.0-0.3 10^3/uL Basophils # (Auto) 0.0 0.0-0.1 10^3/uL D-Dimer 1.42 H 0.00-0.49 UG/ML Sodium Level 138 135-145 MMOL/L Potassium Level 3.4 L 3.6-5.0 MMOL/L Chloride Level 99 98-107 MMOL/L Carbon Dioxide Level 30 21-32 MMOL/L Anion Gap 9 5-14 MMOL/L Blood Urea Nitrogen 11 7-18 MG/DL Creatinine 0.82 0.60-1.30 MG/DL Estimat Glomerular Filtration Rate > 60 BUN/Creatinine Ratio 13 Glucose Level 183 H 70-105 MG/DL Calcium Level 9.4 8.5-10.1 MG/DL Total Bilirubin 1.1 H 0.1-1.0 MG/DL Aspartate Amino Transf (AST/SGOT) 16 5-34 U/L Alanine Aminotransferase (ALT/SGPT) 19 0-55 U/L Alkaline Phosphatase 113 40-136 U/L Troponin I < 0.30 <0.30 NG/ML C-Reactive Protein High Sensitivity 2.69 H 0.00-0.50 MG/DL B-Type Natriuretic Peptide 796.4 H <100.0 PG/ML Total Protein 7.9 6.4-8.2 GM/DL Albumin 3.9 3.2-4.5 GM/DL My Orders Orders - MANOJ PRADO MD Cbc With Automated Diff (10/07/17 10:42) Comprehensive Metabolic Panel (10/07/17 10:42) Fibrin Degradation Products (10/07/17 10:42) Troponin I (10/07/17 10:42) BNP (10/07/17 10:42) Chest Pa/Lat (2 View) (10/07/17 10:42) Hs C Reactive Protein (10/07/17 10:42) Ns Iv 1000 Ml (Sodium Chloride 0.9%) (10/07/17 10:45) Furosemide Injection (Lasix Injection) (10/07/17 10:45) Ua Culture If Indicated (10/07/17 12:05) Potassium Chloride Powder (Klor Con 20 M (10/07/17 12:30) Furosemide Injection (Lasix Injection) (10/07/17 12:30) Medications Given in ED Current Medications Medications Dose Ordered Sig/Jayro Route Start Time Stop Time Status Last Admin Dose Admin Furosemide 40 mg ONCE ONCE IVP 10/07/17 10:45 10/07/17 10:46 DC 10/07/17 11:15 40 MG Vital Signs/I&O Vital Sign - Last 12Hours 10/07/17 10:05 Temp 98.5 Pulse 70 Resp 16 B/P (MAP) 131/75 (93) Pulse Ox 98 O2 Delivery Room Air Blood Pressure Mean: 93 Progress Note : Time: 12:52 Progress Note The patient received 40 mg Lasix IV. Patient's labs demonstrated moderate elevation of his BNP at approximately 800. After telephone consultation with Dr. Rivera and Dr. Hall the patient received oral K+ and 80 mg of Lasix. Departure Communication (Admissions) Time/Spoke to Admitting Phy: 12:[address] Hall Time/Spoke to Consulting Phy: 12:54 Communication/Consulting Dr. Rivera Impression Impression: Primary Impression: Edema Qualified Codes: R60.1 - Generalized edema Disposition: ADMITTED INPATIENT Condition: Improved Admissions Decision to Admit Reason: Admit from ER (General) Decision to Admit/Date: Oct 07, 2017 Time/Decision to Admit Time: 12:54 Departure-Patient Inst. Referrals: [facility] [place] Primary Care Physician MANOJ PRADO MD Oct 07, 2017 10:48
[2017-10-07 11:28] LABS: BASOPHILS % (AUTO) 0 % (0-10); EOSINOPHILS % (AUTO) 0 % (0-10); LYMPHOCYTES # (AUTO) 0.8 X 10^3 (1.0-4.0); LYMPHOCYTES % (AUTO) 11 % (12-44); MEAN CORPUSCULAR HEMOGLOBIN 28 PG (25-34); MEAN CORPUSCULAR HGB CONC 33 G/DL (32-36); MEAN CORPUSCULAR VOLUME 85 FL (80-99); MEAN PLATELET VOLUME 9.7 FL (7.4-10.4); MONOCYTES # (AUTO) 0.7 X 10^3 (0.0-1.0); MONOCYTES % (AUTO) 9 % (0-12); NEUTROPHILS # (AUTO) 5.6 X 10^3 (1.8-7.8); NEUTROPHILS % (AUTO) 79 % (42-75); PLATELET COUNT 277 10^3/uL (130-400); RED BLOOD COUNT 4.98 10^6/uL (4.35-5.85); WHITE BLOOD COUNT 7.1 10^3/uL (4.3-11.0)
[2017-10-07 11:42] LABS: ALANINE AMINOTRANSFERASE 19 U/L (0-55); ALBUMIN 3.9 GM/DL (3.2-4.5); ANION GAP 9 MMOL/L (5-14); ASPARTATE AMINO TRANSFERASE 16 U/L (5-34); BILIRUBIN,TOTAL 1.1 MG/DL (0.1-1.0); BLOOD UREA NITROGEN 11 MG/DL (7-18); BUN/CREATININE RATIO 13; CALCIUM 9.4 MG/DL (8.5-10.1); CARBON DIOXIDE 30 MMOL/L (21-32); CHLORIDE 99 MMOL/L (98-107); CREATININE SERUM 0.82 MG/DL (0.60-1.30); GFR ESTIMATED > 60; GLUCOSE 183 MG/DL (70-105); POTASSIUM 3.4 MMOL/L (3.6-5.0); SODIUM 138 MMOL/L (135-145); TOTAL PROTEIN 7.9 GM/DL (6.4-8.2); hs C REACTIVE PROTEIN 2.69 MG/DL (0.00-0.50)
[2017-10-07 11:50] LABS: TROPONIN I < 0.30 NG/ML (<0.30)
--- NOTE | 2017-10-07 12:15 | Diagnostic Imaging Report ---
EXAMINATION: PA and lateral views of the chest. INDICATION: Fluid buildup. Shortness of breath. FINDINGS: The lungs are clear. The heart size is mildly enlarged. There is no effusion or pneumothorax The mediastinum and vashti appear unremarkable. IMPRESSION: Cardiomegaly. Dictated by: Dictated on workstation # [id number]
[2017-10-07] MEDS ORDERED: KCL 20 MEQ POWDER FOR ORAL SOLUTION PO ONE (12:30)
--- OUTSIDE RECORDS SUMMARY | 2017-10-07 13:13 | XMS REPORT | Clinical Summary ---
Author Author [facility] Organization [facility] Address Unknown Phone Unavailable Care Team Providers Care Hot End Operator Name Role Phone PCP Unavailable Source Comments Some departments are not documenting in the electronic medical record. If you do not see the information that you expected, contact Release of Information in the Health Information Management department at [phone] for further assistance in locating additional records.[facility] Allergies Not on File Current Medications Not [...]
[2017-10-07] MEDS ORDERED: KCL 10 MEQ TAB (MICRO K) PO ONE (13:15)
--- OUTSIDE RECORDS SUMMARY | 2017-10-07 13:19 | XMS REPORT | Continuity of Care Document ---
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 VERIFIER, CODY R 300.23 AN SOCIAL PHOBIA 01/15/2015 [employer]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, CODY R 300.00 AN ANXIETY UNSPEC 01/15/2015 [employer]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 VERIFIER, CODY R 300.01 AN PANIC DIS W/O [...] Procedures Code [place] [address] XRAY CHEST 2 VIEW 01/15/2015 24417 EKG, TRACING (IN-HOUSE) 01/15/2015 58069 PSYCH DIAGNOSTIC EVALUATION 01/15/2015 36965 ROUTINE VENIPUNCTURE 01/17/2015 Cardiolog Barbra Mabry 01/17/2015 72681 CBC 01/17/2015 6815087 GFR CALC (RESULT ONLY) 01/17/2015 14866 CMP 01/17/2015 34416 LIPID PANEL 01/17/2015 62719 MAGNESIUM 01/17/2015 60670 TSH 01/17/2015 Results Test Result Range Complete [...] i.cardiac measurement (mass/volume) < ng/ mL <0.30 Complete blood count (CBC) with automated white blood cell (WBC) differential - 10/07/17 11:15 Blood leukocytes automated count (number/volume) 7.1 10*3/uL 4.3-11.0 Blood erythrocytes automated count (number/volume) 4.98 10*6/uL 4.35-5.85 Venous blood hemoglobin measurement (mass/volume) 13.7 g/dL 13.3-17.7 Blood hematocrit (volume fraction) 42 % 40-54 Automated erythrocyte mean corpuscular volume 85 [foz_us] 80-99 Automated erythrocyte mean corpuscular hemoglobin (mass per erythrocyte) 28 pg 25-34 Automated erythrocyte mean corpuscular hemoglobin concentration measurement ( mass/volume) 33 g/dL 32-36 Automated erythrocyte distribution width ratio 14.0 % 10.0-14.5 Automated blood platelet count (count/volume) 277 10*3/uL 130-400 Automated blood platelet mean volume measurement 9.7 [foz_us] 7.4-10.4 Automated blood neutrophils/100 leukocytes 79 % 42-75 Automated blood lymphocytes/100 leukocytes 11 % 12-44 Blood monocytes/100 leukocytes 9 % 0-12 Automated blood eosinophils/100 leukocytes 0 % 0-10 Automated blood basophils/100 leukocytes 0 % 0-10 Blood neutrophils automated count (number/volume) 5.6 10*3 1.8-7.8 Blood lymphocytes automated count (number/volume) 0.8 10*3 1.0-4.0 Blood monocytes automated count (number/volume) 0.7 10*3 0.0-1.0 Automated eosinophil count 0.0 10*3/uL 0.0-0.3 Automated blood basophil count (count/volume) 0.0 10*3/uL 0.0-0.1 Comprehensive metabolic panel - 10/07/17 11:15 Serum or plasma sodium measurement (moles/volume) 138 mmol/L 135-145 Serum or plasma potassium measurement (moles/volume) 3.4 mmol/L 3.6-5.0 Serum or plasma chloride measurement (moles/volume) 99 mmol/L 98-107 Carbon dioxide 30 mmol/L 21-32 Serum or plasma anion gap determination (moles/volume) 9 mmol/L 5-14 Serum or plasma urea nitrogen measurement (mass/volume) 11 mg/dL 7-18 Serum or plasma creatinine measurement (mass/volume) 0.82 mg/dL 0.60-1.30 Serum or plasma urea nitrogen/creatinine mass ratio 13 NRG Serum or plasma creatinine measurement with calculation of estimated glomerular filtration rate > NRG Serum or plasma glucose measurement (mass/volume) 183 mg/dL 70-105 Serum or plasma calcium measurement (mass/volume) 9.4 mg/dL 8.5-10.1 Serum or plasma total bilirubin measurement (mass/volume) 1.1 mg/dL 0.1-1.0 Serum or plasma alkaline phosphatase measurement (enzymatic activity/volume) 113 U/L 40-136 Serum or plasma aspartate aminotransferase measurement (enzymatic activity/ volume) 16 U/L 5-34 Serum or plasma alanine aminotransferase measurement (enzymatic activity/volume ) 19 U/L 0-55 Serum or plasma protein measurement (mass/volume) 7.9 g/dL 6.4-8.2 Serum or plasma albumin measurement (mass/volume) 3.9 g/dL 3.2-4.5 Serum or plasma troponin i.cardiac measurement (mass/volume) - 10/07/17 11:15 Serum or plasma troponin i.cardiac measurement (mass/volume) < ng/ mL <0.30 Fibrin D-dimer FEU measurement in platelet poor plasma (mass/volume) - 11:15 Fibrin D-dimer FEU measurement in platelet poor plasma (mass/volume) 1.42 ug/mL 0.00-0.49 Serum or plasma C reactive protein measurement (mass/volume) - 10/07/17 11:15 Serum or plasma C reactive protein measurement (mass/volume) 2.69 mg /dL 0.00-0.50 Serum or plasma lithium measurement (moles/volume) - 10/07/17 11:15 BNP level 796.4 pg/mL <100.0 Encounters ACCT No. Visit Date/Time Discharge Status Pt. Type Provider Facility Loc./Unit Complaint [id number] 09/20/2017 09:11:00 09/20/2017 12:36:00 DIS Outpatient BERNABE MCLEAN, OBIE Gavin [facility] ER SWELLING [id number] 2016 10:47:00 2016 13:04:00 DIS Outpatient JP BEYER MD [facility] CARD HIP OSTEOARTHRITIS [id number] 11/15/2013 12:52:00 02/13/2014 00:01:00 DIS Outpatient JIMMY ESPINOZA DO [facility] CARD PALPITATIONS [id number] 11/14/2013 16:18:00 11/14/2013 18:27:00 DIS Emergency JIMMY ESPINOZA DO [facility] ER HEART FLUTTERING [id number] 10/07/2017 12:30:00 ACT Inpatient BRENDA MCLEAN, JEANMARIE Hays [facility] 4TH PERSISTENT PERIPHERAL EDEMA [id number] 02/14/2014 13:00:00 Document Registration [id number] 02/06/2013 14:47:00 Document Registration [id number] 06/15/2012 15:02:00 Document Registration [id number] 04/22/2012 23:35:00 Document Registration [id number] 03/12/2012 04:12:00 Document Registration [id number] 01/17/2015 09:43:00 01/17/2015 23:59:59 CLS Outpatient CODY ACE APRN [id number] 01/15/2015 09:57:00 01/15/2015 23:59:59 CLS Outpatient CODY ACE APRN [id number] 01/15/2015 09:57:00 01/15/2015 23:59:59 CLS Outpatient CODY ACE APRN
[2017-10-07] MEDS ORDERED: IBUP-1780 PO (14:23)
[2017-10-07] MEDS ORDERED: POTA20TA15 PO (14:23)
[2017-10-07] MEDS ORDERED: VALS320T14 PO (14:23)
[2017-10-07] MEDS ORDERED: FLUT16SP22 NS (14:23)
[2017-10-07] MEDS ORDERED: HYDR12.5 PO (14:23)
[2017-10-07] MEDS ORDERED: LOSA50TA36 PO (14:23)
[2017-10-07] MEDS ORDERED: HYDR-3820 PO (14:23)
[2017-10-07] MEDS ORDERED: PRAV10TA PO (14:23)
[2017-10-07] MEDS ORDERED: POLY255P PO (14:23)
[2017-10-07] MEDS ORDERED: ALPR0.5T7 PO (14:23)
[2017-10-07] MEDS ORDERED: VERA360C2 PO (14:23)
[2017-10-07] MEDS ORDERED: LISI40TA PO (14:23)
[2017-10-07] MEDS ORDERED: METO-370 PO (14:23)
[2017-10-07] MEDS ORDERED: FURO40TA4 PO (14:23)
[2017-10-07] MEDS ORDERED: TRAZ-28 PO (14:23)
[2017-10-07] MEDS ORDERED: METF500T4 PO (14:23)
[2017-10-07] MEDS ORDERED: CATHETER FLUSH 10 ML SYR IV PRN (14:45)
[2017-10-07 15:56] VITALS: BP 133/91
[2017-10-07] MEDS ORDERED: INFLUENZA TRIvalent 2017-2018 0.5 ML/45 MCG SYR IM ONE (16:15)
[2017-10-07] MEDS: KCL 10 MEQ TAB (MICRO K) PO SCH (17:10)
[2017-10-07 20:00] VITALS: BP 148/88
[2017-10-07] MEDS: CATHETER FLUSH 10 ML SYR IV SCH (20:04)
[2017-10-07] MEDS: FUROSEMIDE 40 MG/4 ML INJ (LASIX) IV SCH (20:04)
[2017-10-08] VITALS (7 sets, daily range): BP systolic 119–164; BP diastolic 73–98
[2017-10-08 05:02] LABS: BASOPHILS % (AUTO) 0 % (0-10); EOSINOPHILS % (AUTO) 1 % (0-10); LYMPHOCYTES # (AUTO) 1.2 X 10^3 (1.0-4.0); LYMPHOCYTES % (AUTO) 16 % (12-44); MEAN CORPUSCULAR HEMOGLOBIN 27 PG (25-34); MEAN CORPUSCULAR HGB CONC 32 G/DL (32-36); MEAN CORPUSCULAR VOLUME 84 FL (80-99); MEAN PLATELET VOLUME 9.6 FL (7.4-10.4); MONOCYTES % (AUTO) 13 % (0-12); NEUTROPHILS # (AUTO) 5.2 X 10^3 (1.8-7.8); NEUTROPHILS % (AUTO) 70 % (42-75); PLATELET COUNT 238 10^3/uL (130-400); RED BLOOD COUNT 4.63 10^6/uL (4.35-5.85); RED CELL DISTRIBUTION WIDTH 13.8 % (10.0-14.5); WHITE BLOOD COUNT 7.4 10^3/uL (4.3-11.0)
[2017-10-08 05:13] LABS: ALANINE AMINOTRANSFERASE 16 U/L (0-55); ALBUMIN 3.5 GM/DL (3.2-4.5); ANION GAP 14 MMOL/L (5-14); ASPARTATE AMINO TRANSFERASE 15 U/L (5-34); BILIRUBIN,TOTAL 1.2 MG/DL (0.1-1.0); BLOOD UREA NITROGEN 12 MG/DL (7-18); BUN/CREATININE RATIO 15; CALCIUM 8.6 MG/DL (8.5-10.1); CARBON DIOXIDE 30 MMOL/L (21-32); CHLORIDE 97 MMOL/L (98-107); GFR ESTIMATED > 60; GLUCOSE 135 MG/DL (70-105); POTASSIUM 3.2 MMOL/L (3.6-5.0); SODIUM 141 MMOL/L (135-145); TOTAL PROTEIN 7.1 GM/DL (6.4-8.2)
[2017-10-08] MEDS: FUROSEMIDE 40 MG/4 ML INJ (LASIX) IV SCH ×2 (06:32→16:47)
[2017-10-08] MEDS: CATHETER FLUSH 10 ML SYR IV SCH ×3 (06:32→21:09)
[2017-10-08] MEDS: KCL 10 MEQ TAB (MICRO K) PO SCH ×2 (06:32→16:47)
--- NOTE | 2017-10-08 08:21 | Diagnostic Imaging Report ---
INDICATION: Short of breath. Upright portable chest shows mild cardiomegaly with normal vascularity. The lungs are clear. There is no effusion or pneumothorax. IMPRESSION: No acute abnormality is seen with no significant change from 10/07/2017. Dictated by: Dictated on workstation # [id number]
--- NOTE | 2017-10-08 08:55 | History & Physicial (CHS) ---
HPI History of Present Illness: 47-year-old male presents to [facility] emergency department during the afternoon of October 07, 2017 with significant lower extremity edema. Patient apparently had been seen a few weeks ago in the emergency department for the same complaint and placed on Lasix at that time. He has noted the swelling of the legs thighs and actually of the abdomen as well. 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 He currently denies any fevers, chills, or any significant shortness of breath. He has a history of congestive heart failure with also nap-ugyqwjy-impuqygbr diabetes. Source: patient Exam Limitations: no limitations Date seen by provider: Oct 08, 2017 Time Seen by Provider: 07:50 Attending Physician Joslyn Hall MD [facility] [place] Consult Date of Admission Oct 07, 2017 at 12:30 Home Medications Home Medications Reviewed patient Home Medication Reconciliation Form Allergies Coded Allergies: No Known Drug Allergies (Unverified , 03/12/12) AOT-Kkykfg-Ztsged Hx Patient Social History Alcohol Use: Denies Use Recreational Drug Use: No Smoking Status: Never a Smoker Recent Foreign Travel: No Contact w/other who traveled: No Recent Hopitalizations: No Recent Infectious Disease Expo: No Physical Abuse Screen: No Sexual Abuse: No Family Medical History Family History: Cystic fibrosis FH: CABG (coronary artery bypass surgery) 19 FATHER FH: arrhythmia 19 MOTHER FH: congestive heart failure 19 FATHER G8 SISTER Myocardial infarction 19 FATHER Review of Systems (CHC) Constitutional: see HPI Reviewed Test Results Reviewed Test Results Lab Laboratory Tests Test 10/07/17 11:15 10/08/17 04:24 Range/Units White Blood Count 7.1 7.4 4.3-11.0 10^3/uL Red Blood Count 4.98 4.63 4.35-5.85 10^6/uL Hemoglobin 13.7 12.6 L 13.3-17.7 G/DL Hematocrit 42 39 L 40-54 % Mean Corpuscular Volume 85 84 80-99 FL Mean Corpuscular Hemoglobin 28 27 25-34 PG Mean Corpuscular Hemoglobin Concent 33 32 32-36 G/DL Red Cell Distribution Width 14.0 13.8 10.0-14.5 % Platelet Count 277 238 130-400 10^3/uL Mean Platelet Volume 9.7 9.6 7.4-10.4 FL Neutrophils (%) (Auto) 79 H 70 42-75 % Lymphocytes (%) (Auto) 11 L 16 12-44 % Monocytes (%) (Auto) 9 13 H 0-12 % Eosinophils (%) (Auto) 0 1 0-10 % Basophils (%) (Auto) 0 0 0-10 % Neutrophils # (Auto) 5.6 5.2 1.8-7.8 X 10^3 Lymphocytes # (Auto) 0.8 L 1.2 1.0-4.0 X 10^3 Monocytes # (Auto) 0.7 1.0 0.0-1.0 X 10^3 Eosinophils # (Auto) 0.0 0.0 0.0-0.3 10^3/uL Basophils # (Auto) 0.0 0.0 0.0-0.1 10^3/uL D-Dimer 1.42 H 0.00-0.49 UG/ML Sodium Level 138 141 135-145 MMOL/L Potassium Level 3.4 L 3.2 L 3.6-5.0 MMOL/L Chloride Level 99 97 L 98-107 MMOL/L Carbon Dioxide Level 30 30 21-32 MMOL/L Anion Gap 9 14 5-14 MMOL/L Blood Urea Nitrogen 11 12 7-18 MG/DL Creatinine 0.82 0.80 0.60-1.30 MG/DL Estimat Glomerular Filtration Rate > 60 > 60 BUN/Creatinine Ratio 13 15 Glucose Level 183 H 135 H 70-105 MG/DL Calcium Level 9.4 8.6 8.5-10.1 MG/DL Total Bilirubin 1.1 H 1.2 H 0.1-1.0 MG/DL Aspartate Amino Transf (AST/SGOT) 16 15 5-34 U/L Alanine Aminotransferase (ALT/SGPT) 19 16 0-55 U/L Alkaline Phosphatase 113 95 40-136 U/L Troponin I < 0.30 <0.30 NG/ML C-Reactive Protein High Sensitivity 2.69 H 0.00-0.50 MG/DL B-Type Natriuretic Peptide 796.4 H <100.0 PG/ML Total Protein 7.9 7.1 6.4-8.2 GM/DL Albumin 3.9 3.5 3.2-4.5 GM/DL Radiology NAME: LAMBERTO FAIRCHILD [facility] REC#: [id number] PT STATUS: REG ER : 1970 PHYSICIAN: MANOJ PRADO MD ADMIT DATE: 10/07/17/ER Signed Date of Exam: 10/07/17 CHEST PA/LAT (2 VIEW) EXAMINATION: PA and lateral views of the chest. INDICATION: Fluid buildup. Shortness of breath. FINDINGS: The lungs are clear. The heart size is mildly enlarged. There is no effusion or pneumothorax The mediastinum and vashti appear unremarkable. IMPRESSION: Cardiomegaly. Dictated by: Dictated on workstation # [id number] Dict: 10/07/17 1213 Trans: 10/07/17 1249 Interpreted by: SOLITARIO JIMENEZ MD Electronically signed by: SOLITARIO JIMENEZ MD 10/07/17 1249 Physical Exam-(CHC) Physical Exam Vital Signs VS - Last 72 Hours, by Label 10/07/17 10/07/17 10/07/17 10/07/17 10:05 13:30 13:36 15:56 Temp 98.5 98.0 97.7 Pulse 70 70 113 112 Resp 16 20 18 18 B/P (MAP) 131/75 (93) 133/91 (105) Pulse Ox 98 95 99 96 O2 Delivery Room Air Room Air Room Air 10/07/17 10/07/17 10/07/17 10/08/17 19:00 20:00 21:00 00:00 Temp 98.0 98.2 Pulse 107 90 108 Resp 18 20 B/P (MAP) 148/88 (108) 153/98 (116) Pulse Ox 97 96 O2 Delivery Room Air Room Air Room Air 10/08/17 10/08/17 01:00 05:00 Temp 98.0 Pulse 111 107 Resp 20 B/P (MAP) 135/78 (97) Pulse Ox 96 O2 Delivery Room Air Capillary Refill : Less Than 3 Seconds General Appearance: no apparent distress Eyes: Bilateral Eye Normal Inspection HEENT: normal ENT inspection Neck: non-tender Respiratory: lungs clear (and distant.) Cardiovascular: regular rate, rhythm Gastrointestinal: soft, other (Lower abdominal edema) Rectal: deferred Extremities: swelling (Noted of the thighs, legs as well as feet. He does have pitting edema) Neurologic/Psychiatric: no motor/sensory deficits, oriented x 3 Skin: normal color Clinical Quality Measures DVT/VTE Risk/Contraindication: Risk Factor Score Per Nursin RFS Level Per Nursing on Admit: 4+=Very High Assessment/Plan Assessment/Plan Admission Dx 1. Significant lower extremity edema--feet, legs, thighs, as well as lower abdomen 2. History of congestive heart failure 3. Diabetes mellitus adult onset Plan 1. Significant lower extremity edema--feet, legs, thighs, as well as lower abdomen -Patient to be admitted to [facility] for further IV diuresis -Monitor electrolytes -Consultation with cardiology 2. History of congestive heart failure -Patient to be maintained on home medications if cardiology agrees 3. Diabetes mellitus adult onset -We'll continue with his home medications -ADRIANE Sawyer MD Oct 08, 2017 08:55
[2017-10-08] MEDS: metFORMIN 500 MG (GLUCOPHAGE) TAB PO SCH (09:00)
[2017-10-08] MEDS: meTOproloL SUCCINATE 50 MG (TOPROL XL) TAB PO SCH ×2 (09:00→09:12)
[2017-10-08] MEDS ORDERED: traZODone 50 MG (DESYREL) TAB PO PRN (09:00)
[2017-10-08] MEDS ORDERED: ALPRAZolam 0.5 MG (XANAX) TAB ONE (09:06)
[2017-10-08] MEDS ORDERED: HYDROcodone/APAP 10 MG/325 MG (LORTAB) TAB PO ONE (09:06)
[2017-10-08] MEDS ORDERED: meTOproloL SUCCINATE 50 MG (TOPROL XL) TAB PO ONE (09:08)
[2017-10-08] MEDS ORDERED: metFORMIN 500 MG (GLUCOPHAGE) TAB ONE (09:08)
[2017-10-08] MEDS: HYDROcodone/APAP 10 MG/325 MG (LORTAB) TAB PO PRN ×2 (09:12→17:50)
[2017-10-08] MEDS: ALPRAZolam 0.5 MG (XANAX) TAB PO PRN (09:12)
[2017-10-08] MEDS ORDERED: KCL 20 MEQ TAB (K-DUR) PO ONE (10:45)
--- NOTE | 2017-10-08 11:26 | Consultation-Cardiology ---
HPI-Cardiology Cardiology Consultation: Date of Consultation 10/08/17 Date of Admission Attending Physician Joslyn Hall MD Admitting Physician [facility] Consulting Physician Curtis RIVERA MD HPI: Time Seen by Provider: 11:22 Chief Complaint: shortness of breath This is a 47-year-old gentleman who is a patient of Dr. Hall. he has history of hypertension and heart failure. The patient has history of diabetes, hypertension, back fusion, left ventricular enlargement and chews tobacco. He denies family history of MO or sudden cardiac . He presented to the ER with significant lower extremity swelling as well as abdominal swelling and shortness of breath. He presents today with complains of shortness of breath with minimal exertion. He denies orthopnea or PND. He also has significant lower extremity swelling as well as abdominal swelling. He has had a weight gain in 3 months from 372 pounds to 422 pounds. His currently on 40 mg of Lasix and potassium supplementation. Review of Systems-Cardiology Review of Systems Constitutional: No As described under HPI, No no symptoms reported, No chills, No fever, No lightheadedness, No malaise, No tiredness, No weight loss, weight gain, No other Eyes: No As described under HPI, No no symptoms reported, No blindness, No blurred vision, No contact lenses, No drainage, No decreased acuity, No foreign body sensation, No glasses, No inflammation, No pain, No photophobia, No previous injury, No shadows, No tunnel vision, No other, No vision change Ears/Nose/Throat: No As described under HPI, No no symptoms reported, No chronic hearing loss, No epistaxis, No ear discharge, No ear pain, No loose teeth, No mouth pain, No mouth swelling, No nasal drainage, No nose pain, No recent hearing loss, No throat pain, No throat swelling, No ulcerations, No other Respiratory: shortness of breath Cardiovascular: No no symptoms reported, No As described under HPI, No chest pain, No edema, No irregular heart rate, No lightheadedness, No palpitations, No syncope, other (lower extremity swelling) Gastrointestinal: No no symptoms reported, No As described under HPI, No abdomen distended, No abdominal pain, No blood streaked bowels, No constipation , No diarrhea, No difficulty swallowing, No nausea, No poor appetite, No poor fluid intake, No rectal bleeding, No vomiting, No other, No nausea/vomiting/ diarrhea, No stool coloration changes Musculoskeletal: No no symptoms reported, No As describe under HPI, No back pain, No gout, No joint pain, No joint swelling, No muscle pain, No muscle stiffness, No neck pain, No other Skin: No no symptoms reported, No As described under HPI, No change in color, No change in hair/nails, No dryness, No lesions, No lumps, No rash, No other, No skin related problems, No ulcerations, No rash on exposed areas, No ulcerations on exposed areas Psychiatric/Neurological: No no symptoms reported, No As described under HPI, No anxiety, No depression, No emotional problems, No headache, No numbness, No pre-existing deficit, No seizure, No tingling, No tremors, No weakness, No other , No focal weakness, No syncope Hematologic: No no symptoms reported, No As described under HPI, No anemia, No blood clots, No easy bleeding, No easy bruising, No swollen glands, No other, No bleeding abnormalities GXR-Yyvkew-Jfsusy Hx Patient Social History Alcohol Use: Denies Use Recreational Drug Use: No Smoking Status: Never a Smoker Recent Foreign Travel: No Recent Infectious Disease Expo: No Physical Abuse Screen: No Sexual Abuse: No Past Medical History PMH As described under Assessment. Family Medical History Family History: Cystic fibrosis FH: CABG (coronary artery bypass surgery) 19 FATHER FH: arrhythmia 19 MOTHER FH: congestive heart failure 19 FATHER G8 SISTER Myocardial infarction 19 FATHER Allergies and Home Medications Allergies Coded Allergies: No Known Drug Allergies (Unverified , 03/12/12) Home Medications Alprazolam 0.5 Mg Tablet, 0.5 MG PO BID PRN for ANXIETY, (Reported) Furosemide 40 Mg Tablet, 40 MG PO DAILY, (Reported) Hydrochlorothiazide 12.5 Mg Capsule, 12.5 MG PO DAILY, (Reported) Hydrocodone/Acetaminophen 1 Each Tablet, 1 TAB PO Q6H PRN for PAIN-MODERATE, ( Reported) Losartan Potassium 50 Mg Tablet, 50 MG PO 1800, (Reported) Metformin HCl 500 Mg Tablet, 500 MG PO DAILY, (Reported) Metoprolol Succinate 50 Mg Tab.er.24h, 50 MG PO DAILY, (Reported) Polyethylene Glycol 3350 255 Gm Powder, 17 GM PO DAILY PRN for CONSTIPATION-2ND LINE, (Reported) Potassium Chloride 20 Meq Tab.er.prt, 20 MEQ PO DAILY, (Reported) Pravastatin Sodium 10 Mg Tablet, 10 MG PO DAILY, (Reported) Trazodone HCl 50 Mg Tablet, 50 MG PO HS PRN for SLEEP, (Reported) Valsartan 320 Mg Tablet, 320 MG PO DAILY, (Reported) Verapamil HCl 360 Mg Cap24h.pel, 360 MG PO DAILY, (Reported) Physical Exam-Cardiology Physical Exam Vital Signs/I&O Vital Sign - Last 12Hours 10/08/17 10/08/17 10/08/17 00:00 01:00 05:00 Temp 98.2 98.0 Pulse 108 111 107 Resp 20 20 B/P (MAP) 153/98 (116) 135/78 (97) Pulse Ox 96 96 O2 Delivery Room Air Room Air Intake and Output 10/08/17 00:00 Intake Total 2350 ml Output Total 3325 ml Balance -975 ml Capillary Refill : Less Than 3 Seconds Constitutional: No appears stated age, No AAO x 3, No apparent distress, No PERRL, No well-developed, No well-nourished, No other HEENT: No PERRL, No normal ENT inspection, No TMs normal, No pharynx normal, No scleral icterus (R), No scleral icterus (L), No pale conjunctivae (R), No pale conjunctivae (L), No photophobia, No TM abnormal (R), No TM abnormal (L), No pharyngeal erythema, No tonsillar exudate, No other, No discharge, No EOMI, No hearing is well preserved, No hard of hearing, No oral hygience is good, No ulceration, No xanthelasmas are seen Neck: No non-tender, No full range of motion, No supple, No normal inspection, No carotid bruit, No limited range of motion, No lymphadenopathy (R), No lymphadenopathy (L), No tender lateral, No tender midline, No thyromegaly, No other, No carotid pulses are 2 + bilaterally, No with good upstrokes Respiratory: other (decreased breath sounds bilaterally) Cardiovascular: regular rate-rhythm, S1 and S2 Gastrointestinal: No tender, No soft, No round, No distended, No pulsatile mass , No organomegaly, No guarding, No rebound, No tenderness, No hernia, No mass, No audible bowel sounds, No abnormal bowel sounds, No abdominal bruits, No spleenomegaly, No other Rectal: deferred Extremities: significant edema Neurologic/Psychiatric: No security delivery specialist II-XII nml as tested, No no motor/sensory deficits, No alert, No normal mood/affect, No oriented x 3, No abnormal cerebellar tests, No abnormal security delivery specialist II-XII, No abnormal gait, No aphasia, No EOM palsy, No facial droop, No motor weakness, No sensory deficit, No depressed affect, No disoriented x 3, No other, No grossly intact, No power is 5/5 both on sides Skin: No normal color, No warm/dry, No cyanosis, No cool, No diaphoresis, No damp, No ecchymosis, No jaundice, No mottled, No pallor, No rash, No tattoos/ piercings, No ulcerations, No rash on exposed areas, No ulcerations on exposed areas, No other Data Review Labs Laboratory Tests 10/08/17 04:24: White Blood Count 7.4, Red Blood Count 4.63, Hemoglobin 12.6L, Hematocrit 39L, Mean Corpuscular Volume 84, Mean Corpuscular Hemoglobin 27, Mean Corpuscular Hemoglobin Concent 32, Red Cell Distribution Width 13.8, Platelet Count 238, Mean Platelet Volume 9.6, Neutrophils (%) (Auto) 70, Lymphocytes (%) (Auto) 16, Monocytes (%) (Auto) 13H, Eosinophils (%) (Auto) 1, Basophils (%) (Auto) 0, Neutrophils # (Auto) 5.2, Lymphocytes # (Auto) 1.2, Monocytes # (Auto) 1.0, Eosinophils # (Auto) 0.0, Basophils # (Auto) 0.0, Sodium Level 141, Potassium Level 3.2L, Chloride Level 97L, Carbon Dioxide Level 30, Anion Gap 14, Blood Urea Nitrogen 12, Creatinine 0.80, Estimat Glomerular Filtration Rate > 60, BUN/ Creatinine Ratio 15, Glucose Level 135H, Calcium Level 8.6, Total Bilirubin 1.2H , Aspartate Amino Transf (AST/SGOT) 15, Alanine Aminotransferase (ALT/SGPT) 16, Alkaline Phosphatase 95, Total Protein 7.1, Albumin 3.5 A/P-Cardiology Assessment/Admission Diagnosis congestive heart failure, hypertension, active smoking, morbid obesity, diabetes Plan This is a 47-year-old gentleman who is a patient of Dr. Hall. He has been referred for hypertension and heart failure. The patient has history of diabetes, hypertension, back fusion, left ventricular enlargement and chews tobacco. He denies family history of MO or sudden cardiac . He presented to the ER with significant lower extremity swelling as well as abdominal swelling and shortness of breath. He presents today with complains of shortness of breath with minimal exertion. He denies orthopnea or PND. He also has significant lower extremity swelling as well as abdominal swelling. He has had a weight gain in 3 months from 372 pounds to 422 pounds. His currently on 40 mg of Lasix and potassium supplementation. 1. Congestive heart failure: Since an echocardiogram has not been done yet we do not know if it is systolic or diastolic heart failure. Right heart failure cannot be ruled out since the patient is morbidly obese and may have obesity hypoventilation syndrome with resultant right ventricular failure. recommend Conley. High dose Lasix. Fluid restriction to 1.5 L. Salt reduction. Heart failure education done. echocardiogram with contrast. 2. Diabetes: Diabetic education done. Defer further treatment of Dr. Hall. 3. Hyperlipidemia: On 03/17/2017 total cholesterol 188, LDL 106, VLDL 20, HDL 43 , triglyceride 101. The patient will require statin therapy in the near future considering that the patient does have diabetes. 4. Tobacco use: Tobacco cessation was recommended. Thank you for your consultation. Please call me if you have any questions. Torsten Rivera MD, FACP, FACC, FSCAI, FHRS, CCDS Interventional Cardiology Cardiac Electrophysiology Vascular Medicine and Endovascular Interventions Clinical Quality Measures DVT/VTE Risk/Contraindication: Risk Factor Score Per Nursin RFS Level Per Nursing on Admit: 4+=Very High Curtis RIVERA MD Oct 08, 2017 11:26 am
[2017-10-08] MEDS ORDERED: FUROSEMIDE 40 MG/4 ML INJ (LASIX) IVP NR ×2 (12:00→21:00)
[2017-10-08] MEDS: LOSARTAN 50 MG (COZAAR) TAB PO SCH (17:46)
[2017-10-09 04:25] VITALS: BP 140/93
[2017-10-09] MEDS: FUROSEMIDE 40 MG/4 ML INJ (LASIX) IV SCH ×2 (06:20→12:49)
[2017-10-09] MEDS: KCL 10 MEQ TAB (MICRO K) PO SCH ×2 (06:20→17:01)
[2017-10-09] MEDS: CATHETER FLUSH 10 ML SYR IV SCH ×3 (06:20→19:32)
[2017-10-09 06:44] LABS: ALANINE AMINOTRANSFERASE 17 U/L (0-55); ALBUMIN 3.4 GM/DL (3.2-4.5); ANION GAP 11 MMOL/L (5-14); ASPARTATE AMINO TRANSFERASE 15 U/L (5-34); BILIRUBIN,TOTAL 0.8 MG/DL (0.1-1.0); BLOOD UREA NITROGEN 14 MG/DL (7-18); BUN/CREATININE RATIO 17; CALCIUM 9.1 MG/DL (8.5-10.1); CARBON DIOXIDE 33 MMOL/L (21-32); CHLORIDE 97 MMOL/L (98-107); CREATININE SERUM 0.82 MG/DL (0.60-1.30); GFR ESTIMATED > 60; GLUCOSE 144 MG/DL (70-105); POTASSIUM 3.4 MMOL/L (3.6-5.0); SODIUM 141 MMOL/L (135-145)
[2017-10-09] MEDS: metFORMIN 500 MG (GLUCOPHAGE) TAB PO SCH (06:48)
[2017-10-09 07:11] LABS: BILIRUBIN,URINE NEGATIVE (NEGATIVE); KETONES,URINE NEGATIVE (NEGATIVE); LEUKOCYTE ESTERASE ,URINE NEGATIVE (NEGATIVE); NITRITE,URINE NEGATIVE (NEGATIVE); PH,URINE 6 (5-9); PROTEIN,URINE NEGATIVE (NEGATIVE); UROBILINOGEN,URINE 1 MG/DL (NORMAL)
[2017-10-09 07:33] LABS: SQUAMOUS EPITHELIAL CELL,UR 0-2 /HPF
[2017-10-09 08:00] VITALS: BP 144/88
[2017-10-09] MEDS: meTOproloL SUCCINATE 50 MG (TOPROL XL) TAB PO SCH (08:38)
--- NOTE | 2017-10-09 08:56 | Progress Note (SOAP) ---
Subjective Subjective/Events-last exam Patient reports that he is with less tightness to his lower extremities. He believes his legs are much improved with regards to edema. He denies any shortness of breath. Review of Systems Date Seen by Provider: Oct 09, 2017 Time Seen by Provider: 07:50 Objective Exam Last Set of Vital Signs Vital Signs Date Time Temp Pulse Resp B/P (MAP) Pulse Ox O2 Delivery O2 Flow Rate FiO2 10/09/17 08:00 96.2 116 22 144/88 (106) 94 Room Air Capillary Refill : Less Than 3 SecondsLess Than 3 Seconds I&O Intake and Output 10/09/17 00:00 Intake Total 1295 ml Output Total 5375 ml Balance -4080 ml Intake Oral 1295 ml Output Urine Total 5375 ml # Bowel Movements 2 General: No Acute Distress Lungs: Clear to Auscultation Heart: Regular Rate Abdomen: Soft Extremities: Other (Edema noted of the lower extremities involving the feet, legs, and thighs. There does appear to be less swelling as compared to yesterday but pitting edema still noted) Results/Procedures Lab Laboratory Tests 10/09/17 05:46: Sodium Level 141, Potassium Level 3.4L, Chloride Level 97L, Carbon Dioxide Level 33H, Anion Gap 11, Blood Urea Nitrogen 14, Creatinine 0.82, Estimat Glomerular Filtration Rate > 60, BUN/Creatinine Ratio 17, Glucose Level 144H, Calcium Level 9.1, Total Bilirubin 0.8, Aspartate Amino Transf (AST/SGOT) 15, Alanine Aminotransferase (ALT/SGPT) 17, Alkaline Phosphatase 94, Total Protein 7.0, Albumin 3.4 10/09/17 07:00: Urine Color YELLOW, Urine Clarity CLEAR, Urine pH 6, Urine Specific [place] 1.020, Urine Protein NEGATIVE, Urine Glucose (UA) NEGATIVE, Urine Ketones NEGATIVE, Urine Nitrite NEGATIVE, Urine Bilirubin NEGATIVE, Urine Urobilinogen 1 , Urine Leukocyte Esterase NEGATIVE, Urine RBC (Auto) NEGATIVE, Urine RBC NONE, Urine WBC NONE, Urine Squamous Epithelial Cells 0-2, Urine Crystals NONE, Urine Bacteria FEWH, Urine Casts NONE, Urine Mucus NEGATIVE, Urine Culture Indicated NO Radiology NAME: LAMBERTO FAIRCHILD [facility] REC#: [id number] PT STATUS: REG ER : 1970 PHYSICIAN: MANOJ PRADO MD ADMIT DATE: 10/07/17/ER Signed Date of Exam: 10/07/17 CHEST PA/LAT (2 VIEW) EXAMINATION: PA and lateral views of the chest. INDICATION: Fluid buildup. Shortness of breath. FINDINGS: The lungs are clear. The heart size is mildly enlarged. There is no effusion or pneumothorax The mediastinum and vashti appear unremarkable. IMPRESSION: Cardiomegaly. Dictated by: Dictated on workstation # [id number] Dict: 10/07/17 1213 Trans: 10/07/17 1249 Interpreted by: SOLITARIO JIMEENZ MD Electronically signed by: SOLITARIO JIMENEZ MD 10/07/17 1249 Assessment/Plan Assessment/Plan Plan 1. Significant lower extremity edema--feet, legs, thighs, as well as lower abdomen -Patient to be admitted to [facility] for further IV diuresis -Monitor electrolytes -Consultation with cardiology 10/09 -patient received echocardiogram yesterday afternoon with results pending -Clinically patient reports his legs appear to be less tense and he has noticed visible size decreased. -He continues with fluid restriction to 1.5 L -The Lasix 80 mg intravenous twice daily continues. He refuses Conley -Daily weights 2. History of congestive heart failure -Patient to be maintained on home medications if cardiology agrees 3. Diabetes mellitus adult onset -We'll continue with his home medications -ADA diet 10/09 patient on a 60 CHO heart healthy diet Clinical Quality Measures DVT/VTE Risk/Contraindication: Risk Factor Score Per Nursin RFS Level Per Nursing on Admit: 4+=Very High ADRIANE REDMOND MD Oct 09, 2017 08:56
[2017-10-09 11:41] VITALS: BP 129/87
[2017-10-09] MEDS ORDERED: KCL 10 MEQ TAB (MICRO K) PO NR (12:45)
[2017-10-09] MEDS ORDERED: KCL 20 MEQ TAB (K-DUR) PO NR ×2 (12:45→21:00)
[2017-10-09] MEDS ORDERED: FUROSEMIDE 40 MG/4 ML INJ (LASIX) IVP NR ×2 (12:45→17:00)
[2017-10-09] MEDS: HYDROcodone/APAP 10 MG/325 MG (LORTAB) TAB PO PRN (13:46)
[2017-10-09 16:00] VITALS: BP 132/95
[2017-10-09] MEDS: LOSARTAN 50 MG (COZAAR) TAB PO SCH (17:03)
--- NOTE | 2017-10-09 18:15 | Cardiology Progress Note ---
Cardiology SOAP Progress Note Subjective: significant improvement in shortness of breath and lower extremity swelling. mild improvement in abdominal girth. Objective: I&O/Vital Signs Vital Sign - Last 12Hours 10/09/17 10/09/17 10/09/17 10/09/17 07:00 07:42 08:00 11:41 Temp 96.2 95.9 Pulse 112 116 103 Resp 22 20 B/P (MAP) 144/88 (106) 129/87 (101) Pulse Ox 94 96 O2 Delivery Room Air Room Air Room Air 10/09/17 10/09/17 13:00 16:00 Temp 97.5 Pulse 114 112 Resp 20 B/P (MAP) 132/95 (107) Pulse Ox 97 O2 Delivery Room Air Intake and Output 10/09/17 00:00 Intake Total 1095 ml Output Total 4875 ml Balance -3780 ml Weight (Pounds): 404 Weight (Ounces): 4.0 Weight (Calculated Kilograms): 183.516237 Constitutional: No appears stated age, No AAO x 3, No apparent distress, No PERRL, No well-developed, No well-nourished, No other Respiratory: other (decreased breath sounds bilaterally) Cardiovascular: regular rate-rhythm, S1 and S2 Gastrointestional: No tender, No soft, No round, No distended, No pulsatile mass, No organomegaly, No guarding, No rebound, No tenderness, No hernia, No mass, No audible bowel sounds, No abnormal bowel sounds, No abdominal bruits, No spleenomegaly, No other Extremities: significant edema Neurologic/Psychiatric: No brown stock washer II-XII nml as tested, No no motor/sensory deficits, No alert, No normal mood/affect, No oriented x 3, No abnormal cerebellar tests, No abnormal brown stock washer II-XII, No abnormal gait, No aphasia, No EOM palsy, No facial droop, No motor weakness, No sensory deficit, No depressed affect, No disoriented x 3, No other, No grossly intact, No power is 5/5 both on sides Skin: No normal color, No warm/dry, No cyanosis, No cool, No diaphoresis, No damp, No ecchymosis, No jaundice, No mottled, No pallor, No rash, No tattoos/ piercings, No ulcerations, No rash on exposed areas, No ulcerations on exposed areas, No other Results/Procedures: Labs Laboratory Tests 10/09/17 05:46: Sodium Level 141, Potassium Level 3.4L, Chloride Level 97L, Carbon Dioxide Level 33H, Anion Gap 11, Blood Urea Nitrogen 14, Creatinine 0.82, Estimat Glomerular Filtration Rate > 60, BUN/Creatinine Ratio 17, Glucose Level 144H, Calcium Level 9.1, Total Bilirubin 0.8, Aspartate Amino Transf (AST/SGOT) 15, Alanine Aminotransferase (ALT/SGPT) 17, Alkaline Phosphatase 94, Total Protein 7.0, Albumin 3.4 10/09/17 07:00: Urine Color YELLOW, Urine Clarity CLEAR, Urine pH 6, Urine Specific [place] 1.020, Urine Protein NEGATIVE, Urine Glucose (UA) NEGATIVE, Urine Ketones NEGATIVE, Urine Nitrite NEGATIVE, Urine Bilirubin NEGATIVE, Urine Urobilinogen 1 , Urine Leukocyte Esterase NEGATIVE, Urine RBC (Auto) NEGATIVE, Urine RBC NONE, Urine WBC NONE, Urine Squamous Epithelial Cells 0-2, Urine Crystals NONE, Urine Bacteria FEWH, Urine Casts NONE, Urine Mucus NEGATIVE, Urine Culture Indicated NO A/P: Assessment/Dx: acute systolic congestive heart failure, hypertension, active smoking, morbid obesity, diabetes Plan: 1. Acute systolic congestive heart failure: Echocardiogram shows poor LV systolic function with EF<30%. Continue High dose Lasix. Fluid restriction to 1.5 L. Salt reduction. Heart failure education done. patient will need coronary angiography to rule out CAD. optimize medical therapy with gino inhibitor, BB and aldactone. Primary prevention of sudden cardiac with external wearable defibrillator (lifevest). 2. Diabetes: Diabetic education done. Defer further treatment of Dr. Hall. 3. Hyperlipidemia: On 03/17/2017 total cholesterol 188, LDL 106, VLDL 20, HDL 43 , triglyceride 101. The patient will require statin therapy in the near future considering that the patient does have diabetes. 4. Tobacco use: Tobacco cessation was recommended. 5. Hypokalemia: aggressive replacement. Thank you for your consultation. Please call me if you have any questions. Torsten Rivera MD, FACP, FACC, FSCAI, FHRS, CCDS Interventional Cardiology Cardiac Electrophysiology Vascular Medicine and Endovascular Interventions Curtis RIVERA MD Oct 09, 2017 6:15 pm
[2017-10-09 19:29] VITALS: BP 134/88
[2017-10-09] MEDS ORDERED: KCL 10 MEQ TAB (MICRO K) PO SCH (21:00)
[2017-10-09 23:07] VITALS: BP 129/91
[2017-10-10 03:35] VITALS: BP 133/90
[2017-10-10] MEDS: HYDROcodone/APAP 10 MG/325 MG (LORTAB) TAB PO PRN ×2 (03:41→10:52)
[2017-10-10] MEDS: metFORMIN 500 MG (GLUCOPHAGE) TAB PO SCH (06:09)
[2017-10-10] MEDS: FUROSEMIDE 40 MG/4 ML INJ (LASIX) IV SCH ×2 (06:09→17:21)
[2017-10-10] MEDS: KCL 10 MEQ TAB (MICRO K) PO SCH ×2 (06:09→17:21)
[2017-10-10] MEDS: CATHETER FLUSH 10 ML SYR IV SCH ×3 (06:09→22:02)
[2017-10-10 06:11] LABS: ANION GAP 12 MMOL/L (5-14); BLOOD UREA NITROGEN 15 MG/DL (7-18); BUN/CREATININE RATIO 18; CALCIUM 9.2 MG/DL (8.5-10.1); CARBON DIOXIDE 32 MMOL/L (21-32); CHLORIDE 96 MMOL/L (98-107); CREATININE SERUM 0.83 MG/DL (0.60-1.30); GFR ESTIMATED > 60; GLUCOSE 143 MG/DL (70-105); POTASSIUM 3.6 MMOL/L (3.6-5.0); SODIUM 140 MMOL/L (135-145)
[2017-10-10 08:00] VITALS: BP 178/84
[2017-10-10] MEDS: SPIRONOLACTONE 25 MG (ALDACTONE) TAB PO SCH (08:14)
[2017-10-10] MEDS: meTOproloL SUCCINATE 50 MG (TOPROL XL) TAB PO SCH (08:14)
[2017-10-10] MEDS ORDERED: FUROSEMIDE 40 MG/4 ML INJ (LASIX) IVP NR ×2 (09:45→12:00)
--- NOTE | 2017-10-10 09:59 | Progress Note-Hospitalist ---
Progress Note Progress Notes/Assess & Plan Date Seen 10/10/17 Time Seen by Provider: 09:15 Diagonsis/Assessment & Plan Patient is doing better. IV infiltration on right arm so I counseled him on using warm wet compresses to help with that and I noted that it is very mild case Dr Rivera wants to perform cath due to EF 20% on ECHO due to suspicion for ischemic cardiomyopathy due to DM hx. Edema much improved overall AFVSS, Pleasant, improved, morbidly obese RRR, CTAB decreased BS in bases 2+ edema in feet 1+ in legs Assessment: Severe edema requiring IV Lasix New onset systolic dysfunction EF 20% likely ischemic and will need cath to further assess but patient hesitating on that DM Morbid obesity Plan: Cardiology for future plan Monitor labs Needs Cath Needs defib? Lifevest? KATIE SPARROW DO Oct 10, 2017 09:59
--- NOTE | 2017-10-10 10:12 | Cardiology Progress Note ---
Cardiology SOAP Progress Note Subjective: Significant improvement in shortness of breath Objective: I&O/Vital Signs Vital Sign - Last 12Hours 10/10/17 10/10/17 10/10/17 10/10/17 03:35 07:00 08:00 08:00 Temp 96.2 96.6 Pulse 114 111 118 Resp 16 20 B/P (MAP) 133/90 (104) 178/84 (115) Pulse Ox 98 96 O2 Delivery Room Air Room Air Room Air Intake and Output 10/10/17 00:00 Intake Total 1845 ml Output Total 5525 ml Balance -3680 ml Weight (Pounds): 389 Weight (Ounces): 0.0 Weight (Calculated Kilograms): 176.505655 Constitutional: No appears stated age, No AAO x 3, No apparent distress, No PERRL, No well-developed, No well-nourished, No other Respiratory: other (decreased breath sounds bilaterally) Cardiovascular: regular rate-rhythm, S1 and S2 Gastrointestional: No tender, No soft, No round, No distended, No pulsatile mass, No organomegaly, No guarding, No rebound, No tenderness, No hernia, No mass, No audible bowel sounds, No abnormal bowel sounds, No abdominal bruits, No spleenomegaly, No other Extremities: significant edema Neurologic/Psychiatric: No hand zipper trimmer II-XII nml as tested, No no motor/sensory deficits, No alert, No normal mood/affect, No oriented x 3, No abnormal cerebellar tests, No abnormal hand zipper trimmer II-XII, No abnormal gait, No aphasia, No EOM palsy, No facial droop, No motor weakness, No sensory deficit, No depressed affect, No disoriented x 3, No other, No grossly intact, No power is 5/5 both on sides Skin: No normal color, No warm/dry, No cyanosis, No cool, No diaphoresis, No damp, No ecchymosis, No jaundice, No mottled, No pallor, No rash, No tattoos/ piercings, No ulcerations, No rash on exposed areas, No ulcerations on exposed areas, No other Results/Procedures: Labs Laboratory Tests 10/10/17 05:19: Sodium Level 140, Potassium Level 3.6, Chloride Level 96L, Carbon Dioxide Level 32, Anion Gap 12, Blood Urea Nitrogen 15, Creatinine 0.83, Estimat Glomerular Filtration Rate > 60, BUN/Creatinine Ratio 18, Glucose Level 143H, Calcium Level 9.2 A/P: Assessment/Dx: acute systolic congestive heart failure, hypertension, active smoking, morbid obesity, diabetes Plan: 1. Acute systolic congestive heart failure: Echocardiogram shows poor LV systolic function with EF<30%. Continue High dose Lasix. Patient is over 12 L negative since admission. Fluid restriction to 1.5 L. Salt reduction. Heart failure education done. patient will need coronary angiography to rule out CAD. optimize medical therapy with gino inhibitor, BB and aldactone. Primary prevention of sudden cardiac with external wearable defibrillator ( lifevest). Discussed at length with the patient. Patient refused consent for coronary angiography. We will put a LifeVest on. DC losartan and start lisinopril 20 mg daily. 2. Diabetes: Diabetic education done. Defer further treatment of Dr. Hall. 3. Hyperlipidemia: On 03/17/2017 total cholesterol 188, LDL 106, VLDL 20, HDL 43 , triglyceride 101. The patient will require statin therapy in the near future considering that the patient does have diabetes. 4. Tobacco use: Tobacco cessation was recommended. 5. Hypokalemia: aggressive replacement. Thank you for your consultation. Please call me if you have any questions. Torsten Rivera MD, FACP, FACC, FSCAI, FHRS, CCDS Interventional Cardiology Cardiac Electrophysiology Vascular Medicine and Endovascular Interventions Curtis RIVERA MD Oct 10, 2017 10:12 am
[2017-10-10 12:00] VITALS: BP 139/87
[2017-10-10] MEDS: ALPRAZolam 0.5 MG (XANAX) TAB PO PRN (14:03)
[2017-10-10 16:00] VITALS: BP 136/92
[2017-10-10 19:25] VITALS: BP 141/96
[2017-10-11] VITALS (7 sets, daily range): BP systolic 120–140; BP diastolic 77–90
[2017-10-11] MEDS: FUROSEMIDE 40 MG/4 ML INJ (LASIX) IV SCH ×2 (06:07→17:17)
[2017-10-11] MEDS: CATHETER FLUSH 10 ML SYR IV SCH ×2 (06:08→17:17)
[2017-10-11] MEDS: metFORMIN 500 MG (GLUCOPHAGE) TAB PO SCH (06:08)
[2017-10-11] MEDS: KCL 10 MEQ TAB (MICRO K) PO SCH ×2 (06:08→17:16)
[2017-10-11] MEDS ORDERED: FUROSEMIDE 40 MG/4 ML INJ (LASIX) IVP NR (07:00)
[2017-10-11] MEDS: HYDROcodone/APAP 10 MG/325 MG (LORTAB) TAB PO PRN (07:31)
[2017-10-11] MEDS ORDERED: lisINopril 20 MG (ZESTRIL) TAB PO SCH (09:00)
[2017-10-11] MEDS: meTOproloL SUCCINATE 50 MG (TOPROL XL) TAB PO SCH (09:03)
[2017-10-11] MEDS: SPIRONOLACTONE 25 MG (ALDACTONE) TAB PO SCH (09:03)
[2017-10-11] MEDS ORDERED: SPIR25TA3 PO (09:47)
[2017-10-11] MEDS ORDERED: LISI-552 PO (09:47)
[2017-10-11] MEDS ORDERED: METO-370 PO (09:47)
--- NOTE | 2017-10-11 09:48 | Discharge Summary-Hospitalist ---
Diagnosis/Chief Complaint Date of Admission Oct 07, 2017 at 12:30 Date of Discharge Discharge Date: Oct 11, 2017 Discharge Diagnosis Severe edema requiring IV Lasix New onset systolic dysfunction EF 20% likely ischemic and will need cath of which he prefers to do after the holidays but is being placed on life vest in the meantime DM Morbid obesity Discharge Summary Discharge Physical Examination Allergies: Coded Allergies: No Known Drug Allergies (Unverified , 03/12/12) Vitals & I&Os Vital Signs Date Time Temp Pulse Resp B/P (MAP) Pulse Ox O2 Delivery O2 Flow Rate FiO2 10/11/17 07:29 97.5 117 20 120/85 (97) 93 Room Air Hospital Course Hospital course: Patient had a brief hospital course he was placed in the hospital due to severe peripheral edema requiring high doses of IV Lasix workup ensued with echocardiogram showing new onset congestive heart failure with ejection fraction of 20 percent. Cardiology recommended cardiac catheterization to pursue presumed ischemic source of cardiomyopathy but he preferred to do that after the holidays so he is discharged on life vest with close follow-up [facility] tomorrow as scheduled and will be monitored closely in the meantime. All congestive heart failure discharge meds were reviewed and all deemed correct. Discharge Home Medications: Active Scripts Active Spironolactone 25 Mg Tablet 25 Mg PO DAILY Lisinopril 20 Mg Tablet 20 Mg PO DAILY Metoprolol Succinate 50 Mg Tab.er.24h 50 Mg PO DAILY Reported Hydrocodon-Acetaminophn 10-325 (Hydrocodone/Acetaminophen) 1 Each Tablet 1 Tab PO Q6H PRN Valsartan 320 Mg Tablet 320 Mg PO DAILY Trazodone HCl 50 Mg Tablet 50 Mg PO HS PRN Alprazolam 0.5 Mg Tablet 0.5 Mg PO BID PRN Polyethylene Glycol 3350 255 Gm Powder 17 Gm PO DAILY PRN Metformin HCl 500 Mg Tablet 500 Mg PO DAILY Potassium Chloride 20 Meq Tab.er.prt 20 Meq PO DAILY Furosemide 40 Mg Tablet 40 Mg PO DAILY Hydrochlorothiazide 12.5 Mg Capsule 12.5 Mg PO DAILY Pravastatin Sodium 10 Mg Tablet 10 Mg PO DAILY Verapamil HCl 360 Mg Cap24h.pel 360 Mg PO DAILY Losartan Potassium 50 Mg Tablet 50 Mg PO 1800 Instructions to patient/family Please see electronic discharge instructions given to patient. Clinical Quality Measures DVT/VTE Risk/Contraindication: Risk Factor Score Per Nursin RFS Level Per Nursing on Admit: 4+=Very High KATIE SPARROW DO Oct 11, 2017 09:48
[2017-10-11] MEDS: ALPRAZolam 0.5 MG (XANAX) TAB PO PRN (12:01)
--- NOTE | 2017-10-11 14:10 | Cardiology Progress Note ---
Cardiology SOAP Progress Note Subjective: Significantly improved shortness of breath. Objective: I&O/Vital Signs Vital Sign - Last 12Hours 10/11/17 10/11/17 10/11/17 10/11/17 04:30 07:00 07:29 08:00 Temp 97.7 97.5 Pulse 109 128 117 Resp 18 20 B/P (MAP) 135/88 (104) 120/85 (97) Pulse Ox 93 93 O2 Delivery Room Air Room Air Room Air 10/11/17 10/11/17 12:00 13:00 Temp 96.6 Pulse 110 107 Resp 22 B/P (MAP) 135/83 (100) Pulse Ox 97 O2 Delivery Room Air Intake and Output 10/11/17 00:00 Intake Total 720 ml Output Total 4900 ml Balance -4180 ml Weight (Pounds): 378 Weight (Ounces): 0.5 Weight (Calculated Kilograms): 171.200927 Constitutional: No appears stated age, No AAO x 3, No apparent distress, No PERRL, No well-developed, No well-nourished, No other Respiratory: other (decreased breath sounds bilaterally) Cardiovascular: regular rate-rhythm, S1 and S2 Gastrointestional: No tender, No soft, No round, No distended, No pulsatile mass, No organomegaly, No guarding, No rebound, No tenderness, No hernia, No mass, No audible bowel sounds, No abnormal bowel sounds, No abdominal bruits, No spleenomegaly, No other Extremities: significant edema Neurologic/Psychiatric: No line inspector II-XII nml as tested, No no motor/sensory deficits, No alert, No normal mood/affect, No oriented x 3, No abnormal cerebellar tests, No abnormal line inspector II-XII, No abnormal gait, No aphasia, No EOM palsy, No facial droop, No motor weakness, No sensory deficit, No depressed affect, No disoriented x 3, No other, No grossly intact, No power is 5/5 both on sides Skin: No normal color, No warm/dry, No cyanosis, No cool, No diaphoresis, No damp, No ecchymosis, No jaundice, No mottled, No pallor, No rash, No tattoos/ piercings, No ulcerations, No rash on exposed areas, No ulcerations on exposed areas, No other A/P: Assessment/Dx: acute systolic congestive heart failure, Dilated cardiomyopathy with EF 20 percent. hypertension, active smoking, morbid obesity, diabetes Plan: 1. Acute systolic congestive heart failure/dilated cardiomyopathy: Echocardiogram shows poor LV systolic function with EF<30%. Continue High dose Lasix. Patient is over 12 L negative since admission. Fluid restriction to 1.5 L. Salt reduction. Heart failure education done. patient will need coronary angiography to rule out CAD. optimize medical therapy with gino inhibitor, BB and aldactone. Primary prevention of sudden cardiac with external wearable defibrillator (lifevest). Discussed at length with the patient. Patient refused consent for coronary angiography. We will put a LifeVest on. If patient agrees to coronary angiography. We'll perform it tomorrow morning. If he refuses then we will put the lifevest on and he can be discharged. They do understand that there is increased risk of an MD if he does have significant CAD. I will then follow-up in second week of October. We will start aspirin, statin. DC losartan and start lisinopril 20 mg daily. 2. Diabetes: Diabetic education done. Defer further treatment of Dr. Hall. 3. Hyperlipidemia: On 03/17/2017 total cholesterol 188, LDL 106, VLDL 20, HDL 43 , triglyceride 101. The patient will require statin therapy in the near future considering that the patient does have diabetes. 4. Tobacco use: Tobacco cessation was recommended. 5. Hypokalemia: aggressive replacement. Thank you for your consultation. Please call me if you have any questions. Torsten Rivera MD, FACP, FACC, FSCAI, FHRS, CCDS Interventional Cardiology Cardiac Electrophysiology Vascular Medicine and Endovascular Interventions Curtis RIVERA MD Oct 11, 2017 2:10 pm
== END 2017-10-11 20:35 | disposition home or self-care (01) | DRG 293 ==
LOC: EDUNIT# 09:52 → ER 09:55 → 4TH 12:30
PROVIDERS: ADMIT Family Medicine; ATTEND Family Medicine
DX: I50.21 Acute systolic (congestive) heart failure (principal); E11.9 Type 2 diabetes mellitus without complications; F17.220 Nicotine dependence, chewing tobacco, uncomplicated; E66.01 Morbid (severe) obesity due to excess calories; E87.6 Hypokalemia; E78.5 Hyperlipidemia, unspecified; Z98.1 Arthrodesis status; Z79.84 Long term (current) use of oral hypoglycemic drugs
CPT/HCPCS: 36415; 71010; 71020; 80048; 80053; 81000; 83880; 84484; 85025; 85379; 86141; 93306; 96361; 96374; 96376

== ENCOUNTER 2017-11-10 07:13 | Day surgery (SDC) | payer MEDICARE, MEDICAID ==
[2017-11-10] VITALS (9 sets, daily range): BP systolic 97–180; BP diastolic 61–135
[~2017-11-10] VITALS: Ht 185.4 cm; Wt 182.3 kg
[~2017-11-10 07:13] MED LIST changes: +ALPR0.5T7 PO; +FLUT16SP22 NS; +FURO40TA4 PO; +HYDR-3820 PO; +HYDR12.5 PO; +IBUP-1780 PO; +LISI-552 PO; +LISI40TA PO; +LOSA50TA36 PO; +METF500T4 PO; +METO-370 PO; +POLY255P PO; +POTA20TA15 PO; +PRAV10TA PO; +SPIR25TA3 PO; +TRAZ-28 PO; +VALS320T14 PO
[2017-11-10] MEDS ORDERED: LIDOCAINE 1% INJ 50 ML (XYLOCAINE) VIAL ONE (07:16)
[2017-11-10] MEDS ORDERED: HEParin (CATH LAB) 2,000 ML IV ONE (07:16)
[2017-11-10] MEDS ORDERED: NS IV 1000 ML 1,000 ML ONE (07:16)
[2017-11-10] MEDS ORDERED: NS IV 1000 ML 1,000 ML IV SCH ×3 (07:18→11:17)
[2017-11-10 07:43] LABS: HEMOGLOBIN 14.3 G/DL (13.3-17.7); MEAN PLATELET VOLUME 9.5 FL (7.4-10.4); RED BLOOD COUNT 5.47 10^6/uL (4.35-5.85); RED CELL DISTRIBUTION WIDTH 15.2 % (10.0-14.5); WHITE BLOOD COUNT 9.5 10^3/uL (4.3-11.0)
[2017-11-10] MEDS ORDERED: METO-370 PO ×2 (07:51→12:44)
[2017-11-10] MEDS ORDERED: SPIR25TA3 PO (07:51)
[2017-11-10] MEDS ORDERED: LISI40TA PO (07:51)
[2017-11-10 07:54] LABS: INR 1.3 (0.8-1.4); PROTHROMBIN TIME PATIENT 16.5 SEC (12.2-14.7)
[2017-11-10 08:03] LABS: ALANINE AMINOTRANSFERASE 37 U/L (0-55); ALBUMIN 3.7 GM/DL (3.2-4.5); ALKALINE PHOSPHATASE 116 U/L (40-136); BILIRUBIN,TOTAL 1.4 MG/DL (0.1-1.0); BUN/CREATININE RATIO 16; CALCIUM 9.1 MG/DL (8.5-10.1); CARBON DIOXIDE 25 MMOL/L (21-32); CHLORIDE 98 MMOL/L (98-107); CREATININE SERUM 0.89 MG/DL (0.60-1.30); GFR ESTIMATED > 60; GLUCOSE 169 MG/DL (70-105); POTASSIUM 3.9 MMOL/L (3.6-5.0); SODIUM 137 MMOL/L (135-145); TOTAL PROTEIN 8.2 GM/DL (6.4-8.2)
[2017-11-10] MEDS ORDERED: INFLUENZA TRIvalent 2017-2018 0.5 ML/45 MCG SYR IM ONE (08:15)
[2017-11-10] MEDS ORDERED: NITROGLYCERIN DRIP 25 MG/D5W 250 ML IV ONE (09:20)
[2017-11-10] MEDS ORDERED: MIDAZOLAM 5 MG/5 ML (VERSED) VIAL ONE (09:20)
[2017-11-10] MEDS ORDERED: VERAPAMIL 5 MG/2 ML (CALAN) VIAL IV ONE ×3 (09:20→10:35)
[2017-11-10] MEDS ORDERED: HEParin 1000 UNIT/ML (10ML VIAL) FOR BOLUS ONE (09:20)
[2017-11-10] MEDS ORDERED: fentaNYL INJECTION 100 MCG/2 ML AMP ONE ×2 (09:20→10:37)
[2017-11-10] MEDS ORDERED: MIDAZOLAM 2 MG/2 ML (VERSED) VIAL ONE ×2 (10:02→10:37)
--- NOTE | 2017-11-10 11:15 | Cardiac Procedure Note-CS/ASA ---
Pre-Procedure Note Pre-Op Procedure Note H&P Reviewed The H&P was reviewed, patient examined and no changes noted. Date H&P Reviewed: Nov 10, 2017 Time H&P Reviewed: 09:30 Conscious Sedation Pre-Proced Time Reviewed: 09:30 ASA Class: 3 Airway Mallampati Classification: ([place] appropriate class) I. II. III, IV Lungs Heart ASA score ASA 1: a normal healthy patient ASA 2: a patient with a mild systemic disease (mid diabetes, controlled hypertension, obesity ASA 3: a patient with a severe systemic disease that limits activity (angina , COPD, prior Myocardial infarction) ASA 4: a patient with an incapacitating disease that is a constant threat to life (CHF, renal failure) ASA 5: a moribund patient not expected to survive 24 hrs. (ruptured aneurysm) ASA 6: a declared brain patient whose organs are being harvested. For emergent operations, add the letter E after the classification Grade 1 Sedation Plan: Analgesia, Amnesia, Plan communicated to team members, Discussed options with patient/fam, Discussed risks with patient/fam Note The patient is an appropriate candidate to undergo the planned procedure, sedation, and anesthesia. The patient immediately re-assessed prior to indication. Curtis PATINO MD Nov 10, 2017 11:15 am
--- NOTE | 2017-11-10 11:17 | Cardiology Post Procedure Note ---
Post-Procedure Note Physician (s)/Manager Appointment (s) Physician Curtis PATINO MD Pre-Procedure Diagnosis Pre-Procedure Diagnosis: Shortness of breath, new onset cardiomyopathy Post-Procedure Note Procedure Start Date: Nov 10, 2017 Procedure Start Time: 10:00 Name of Procedure: Coronary angiography, left heart catheterization Findings/Procedure Note patent epicardial coronary vessels, significantly elevated LVEDP 30 mmHg, severely reduced LV function 20-25 percent. Anesthesia Type: Conscious Sedation Estimated blood loss (mL): 10 Contrast Amount: 60 Post-Procedure Diagnosis Post-operative diagnosis: Patent epicardial coronary vessels Severe nonischemic cardiomyopathy Congestive heart failure Curtis PATINO MD Nov 10, 2017 11:17 am
--- NOTE | 2017-11-10 11:22 | Cardiology Discharge Summary ---
Diagnosis/Chief Complaint Date of Admission 11/10/2017 Date of Discharge 11/10/2017 Admission Diagnosis shortness of breath, systolic congestive heart failure, severe new-onset cardiomyopathy Final/Discharge Diagnosis nonischemic cardiomyopathy, congestive heart failure, patent epicardial coronary vessels Chief Complaint/HPI Chief Complaint/HPI 47-year-old male morbid obese with shortness of breath and ejection fraction on echocardiogram of 20-25 percent. Coronary angiography is recommended in new- onset cardiomyopathy to rule out CAD. Discharge Summary Procedures coronary angiography shows no significant CAD. LVEDP 30 which is significantly elevated. LVEF is 20-25 percent with global hypokinesis Discharge Physical Examination stable Hospital Course Lasix 80 mg IV 1 given Pending Labs Laboratory Tests 11/10/17 07:35: White Blood Count 9.5, Red Blood Count 5.47, Hemoglobin 14.3, Hematocrit 44, Mean Corpuscular Volume 81, Mean Corpuscular Hemoglobin 26, Mean Corpuscular Hemoglobin Concent 32, Red Cell Distribution Width 15.2, Platelet Count 276, Mean Platelet Volume 9.5, Prothrombin Time 16.5, INR Comment 1.3, Activated Partial Thromboplast Time 32, Sodium Level 137, Potassium Level 3.9, Chloride Level 98, Carbon Dioxide Level 25, Anion Gap 14, Blood Urea Nitrogen 14, Creatinine 0.89, Estimat Glomerular Filtration Rate > 60, BUN/Creatinine Ratio 16, Glucose Level 169, Calcium Level 9.1, Total Bilirubin 1.4, Aspartate Amino Transf (AST/SGOT) 20, Alanine Aminotransferase (ALT/SGPT) 37, Alkaline Phosphatase 116, Total Protein 8.2, Albumin 3.7 Discussion & Recommendations Discussion stable Follow up appt.: Dr. Rivera in one to 2 weeks Dicharge Diet: Cardiac Diet, Low Sodium Diet Activity as Tolerated: Yes Home Medications Reviewed patient Home Medication Reconciliation Form Discharge Home Medications: Reviewed and agree with Discharge Medication list on patient's Discharge Instruction sheet Condition at discharge stable Instructions to patient/family follow-up appointment with Dr. Rivera in one to 2 weeks. Salt and water restriction. Daily weight Curtis RIVERA MD Nov 10, 2017 11:22 am
[2017-11-10] MEDS ORDERED: PATIENT MAY USE OWN MEDS, ALL PO SCH (11:30)
[2017-11-10] MEDS ORDERED: FUROSEMIDE 40 MG/4 ML INJ (LASIX) IVP ONE (11:30)
--- NOTE | 2017-11-10 12:12 | CARDIAC CATHETERIZATION ---
DATE OF SERVICE: 11/10/2017 CORONARY ANGIOGRAPHY REPORT PERFORMING PHYSICIAN: Dr. Torsten Rivera. INDICATIONS: Shortness of breath, acute on chronic congestive heart failure, new onset severe cardiomyopathy. PREOPERATIVE DIAGNOSES: Shortness of breath, systolic congestive heart failure, new onset severe cardiomyopathy. POSTOPERATIVE DIAGNOSES: 1. Patent epicardial coronary arteries. 2. Systolic congestive heart failure. 3. Severe nonischemic cardiomyopathy. HISTORY: The patient is a 47-year-old gentleman who is morbidly obese with likely pickwickian syndrome. He presented with significant shortness of breath and heart failure. Echocardiogram showed an EF of 20% to 25%. We suggest acute systolic congestive heart failure. He was stabilized with IV diuretics. Coronary angiography was recommended as an outpatient to rule out CAD as a cause of new onset cardiomyopathy. PROCEDURES PERFORMED: 1. Left heart catheterization. 2. Coronary angiography. SPECIMENS: None. COMPLICATIONS: None. ANESTHESIA: Conscious sedation. ANTICOAGULATION: IV heparin. ESTIMATED BLOOD LOSS: 10 mL. CONTRAST DOSE: 60 mL of Omnipaque. FLUOROSCOPY TIME: 6.44 minutes. FLUOROSCOPY DOSE: 673 mGy. PROCEDURE DETAILS: The patient was brought to the grass farm laborer after informed consent was taken. All the risks and complications were explained in detail. He was draped and prepped in the usual sterile fashion. Access was gained in the right radial artery with a 6-Bolivian sheath. However, while advancing the wire, we were not able to advance the catheter. Upper extremity angiography was performed, which showed significant spasm in the brachial artery. We gave high doses of nitroglycerin and verapamil including deep sedation, but no significant improvement in spasm was noted. Therefore, we had to stop the procedure via the radial approach. We then got access with a 6-Bolivian sheath in the right femoral artery. Coronary angiography was performed with a JL4 catheter and a JR4 catheter. Left heart catheterization was performed with a JR4 catheter. FINDINGS: 1. Left main patent. 2. LAD: Patent. It is a transapical vessel. 3. Left circumflex artery: Patent. 4. RCA: Patent dominant. 5. Left heart catheterization: LV pressure 113/8 mmHg. LVEDP 30 mmHg. Aortic pressure 113/87 mmHg. LVEF 20% to 25% with global hypokinesis. There was no gradient across the aortic valve. brief run of AT/atrial fibrillation was noted. IMPRESSION: 1. Nonischemic cardiomyopathy. 2. Patent epicardial coronary vessels. 3. Acute on chronic congestive heart failure. Therefore, 80 mg of IV Lasix was given. PLAN: Continue to optimize medical therapy. Continue LifeVest. Job ID: [id number] DocumentID: [id number] Dictated Date: 11/10/2017 11:32:31 Music Theory Professor Date: 11/10/2017 12:11:42 Dictated By: CHRISTINA RIVERA MD MTDD
[2017-11-10] MEDS ORDERED: FURO40TA4 PO (12:43)
--- NOTE | 2017-11-10 12:43 | Discharge Inst-Post CATH ---
Discharge Inst-CATH Post Cardiac Cath D/C Inst Follow Up/Plan follow-up appointment with Dr. Rivera in one to 2 weeks. Salt and water restriction. Daily weight CARDIAC CATH DISCHARGE INSTRUCTIONS *Hold Metformin for 48 hours post heart cath. ACTIVITY * Go Home directly and rest. * Limit activity of the leg (or wrist if it was used) for 7 days including aerobics, swimming, jogging, bicycling, etc. * Restrict stair-climbing for 7 days if possible, if not, climb up with your non -cath leg, then bring together on the same step. * Avoid lifting, pushing, pulling or excessive movement of the affected extremity for 7 days. * Customary sexual activity may be resumed after 2 days-use caution not to use a position that strains or causes pain to the affected extremity. * No driving for 24 hours. * NO SMOKING. * Avoid straining for bowel movements for 7 days. * Gentle walking on level ground is allowed. * Returning to work will depend on the type of procedure and the results. Your doctor will discuss this with you. CALL YOUR DOCTOR FOR ANY OF THE FOLLOWING: *If bleeding from the puncture site occurs- Apply gentle pressure to site with clean cloth and call your doctor or EMS. * If a knot or lump forms under the skin, increases in size, or causes pain. * If bruising appears to be worsening or moving further down your leg instead of disappearing. * Temperature above 101 F. CARE OF YOUR GROIN INCISION; * Bruising or purple discoloration of the skin near the puncture site is common. * You may shower only, no bathtub bathing for 5 days. Be careful to avoid slipping as your leg may feel stiff. * If a closure device was used on your femoral artery, please see the attached guide regarding care of the device and your leg. * REMOVE the dressing from your groin the next day after your procedure in the shower. CARE OF YOUR WRIST INCISION; * Bruising or purple discoloration of the skin near the puncture site is common. * You may shower. * DO NOT submerge wrist. * Remove dressing in 24 hours. Curtis RIVERA MD Nov 10, 2017 12:43 pm
[2017-11-10] MEDS ORDERED: HYDROcodone/APAP 10 MG/325 MG (LORTAB) TAB PO ONE (16:15)
== END 2017-11-10 17:05 | disposition home or self-care (01) ==
LOC: CATH 07:13
PROVIDERS: ATTEND Internal Medicine Interventional Cardiology
DX: I42.9 Cardiomyopathy, unspecified (principal); I11.0 Hypertensive heart disease with heart failure; I50.23 Acute on chronic systolic (congestive) heart failure; E11.9 Type 2 diabetes mellitus without complications; E78.5 Hyperlipidemia, unspecified; F41.9 Anxiety disorder, unspecified; F32.9 Major depressive disorder, single episode, unspecified; F17.220 Nicotine dependence, chewing tobacco, uncomplicated; E66.01 Morbid (severe) obesity due to excess calories; Z68.43 Body mass index [BMI] 50.0-59.9, adult; Z79.899 Other long term (current) drug therapy
CPT/HCPCS: 36415; 80053; 85027; 85610; 85730; 87081; 93005; 93458

== ENCOUNTER → 2018-01-10 | Outpatient (CLI) | payer MEDICARE, MEDICAID | LOC: WOUNDCARE 10:12 | PROVIDERS: ATTEND Nurse Practitioner | DX: E11.622 Type 2 diabetes mellitus with other skin ulcer (principal); L97.822 Non-pressure chronic ulcer of other part of left lower leg with fat layer exposed; L97.812 Non-pressure chronic ulcer of other part of right lower leg with fat layer exposed; I87.323 Chronic venous hypertension (idiopathic) with inflammation of bilateral lower extremity | CPT/HCPCS: 11042; 11045 ==

== ENCOUNTER → 2018-01-17 | Outpatient (CLI) | payer MEDICARE, MEDICAID | LOC: WOUNDCARE 08:39 | PROVIDERS: ATTEND Nurse Practitioner | DX: E11.622 Type 2 diabetes mellitus with other skin ulcer (principal); L97.812 Non-pressure chronic ulcer of other part of right lower leg with fat layer exposed; L97.822 Non-pressure chronic ulcer of other part of left lower leg with fat layer exposed; I87.323 Chronic venous hypertension (idiopathic) with inflammation of bilateral lower extremity | CPT/HCPCS: 11042 ==

== ENCOUNTER → 2018-01-24 | Outpatient (CLI) | payer MEDICARE, MEDICAID | LOC: WOUNDCARE 08:29 | PROVIDERS: ATTEND Nurse Practitioner | DX: E11.622 Type 2 diabetes mellitus with other skin ulcer (principal); L97.812 Non-pressure chronic ulcer of other part of right lower leg with fat layer exposed; L97.811 Non-pressure chronic ulcer of other part of right lower leg limited to breakdown of skin; L97.822 Non-pressure chronic ulcer of other part of left lower leg with fat layer exposed; I87.323 Chronic venous hypertension (idiopathic) with inflammation of bilateral lower extremity | CPT/HCPCS: 11042; 97597 ==

== ENCOUNTER → 2018-01-31 | Outpatient (CLI) | payer MEDICARE, MEDICAID | LOC: WOUNDCARE 08:32 | PROVIDERS: ATTEND Nurse Practitioner | DX: E11.622 Type 2 diabetes mellitus with other skin ulcer (principal); L97.822 Non-pressure chronic ulcer of other part of left lower leg with fat layer exposed; L97.812 Non-pressure chronic ulcer of other part of right lower leg with fat layer exposed; L97.811 Non-pressure chronic ulcer of other part of right lower leg limited to breakdown of skin; I87.323 Chronic venous hypertension (idiopathic) with inflammation of bilateral lower extremity | CPT/HCPCS: 11042 ==

== ENCOUNTER → 2018-02-03 | Outpatient (CLI) | payer MEDICARE, MEDICAID ==
[~2018-02-03] MED LIST changes: +CEPH-507 PO; +INSU100I29 SC; -METF500T4 PO; +METF500T5 PO; +METO-351 PO; -SPIR25TA3 PO; +SPIR25TA5 PO; +TRAZ-189 PO; -TRAZ-28 PO; -VALS320T14 PO; +VALS320T15 PO
== END ==
LOC: CARD 13:15
PROVIDERS: ATTEND Internal Medicine Interventional Cardiology
DX: I42.9 Cardiomyopathy, unspecified (principal); I11.0 Hypertensive heart disease with heart failure; E78.5 Hyperlipidemia, unspecified; R06.02 Shortness of breath; Z72.0 Tobacco use
CPT/HCPCS: 93306

== ENCOUNTER → 2018-02-07 | Outpatient (CLI) | payer MEDICARE, MEDICAID | LOC: WOUNDCARE 09:11 | PROVIDERS: ATTEND Nurse Practitioner | DX: E11.622 Type 2 diabetes mellitus with other skin ulcer (principal); L97.822 Non-pressure chronic ulcer of other part of left lower leg with fat layer exposed; L97.812 Non-pressure chronic ulcer of other part of right lower leg with fat layer exposed; L97.811 Non-pressure chronic ulcer of other part of right lower leg limited to breakdown of skin; I87.323 Chronic venous hypertension (idiopathic) with inflammation of bilateral lower extremity | CPT/HCPCS: 11042 ==

== ENCOUNTER 2018-02-17 17:35 | Emergency (ER) | payer MEDICARE, MEDICAID ==
[~2018-02-17] VITALS: Ht 185.4 cm; Wt 158.8 kg
[~2018-02-17 17:35] MED LIST changes: -CEPH-507 PO; -INSU100I29 SC; -METO-351 PO; +SPIR25TA3 PO; -SPIR25TA5 PO; -TRAZ-189 PO; +TRAZ-28 PO; +VALS320T14 PO; -VALS320T15 PO
--- OUTSIDE RECORDS SUMMARY | 2018-02-17 17:41 | XMS REPORT | Clinical Summary ---
Author Author [facility] Organization [facility] Address Unknown Phone Unavailable Care Team Providers Care Upholstery Cleaner Name Role Phone No Pcp, Na PCP Unavailable Irma Murcia MD Unavailable Source Comments Some departments are not documenting in the electronic medical record. If you do not see the information that you expected, contact Release of Information in the Health Information Management department at [phone] for further assistance in locating additional records.[facility] Allergies Not on File Current Medications Not on file Active Problems Not on file Social History Tobacco Use Types Packs/Day Years Used Date Never Assessed Sex Assigned at Date Recorded Not on file Last Filed Vital Signs Not on file Plan of Treatment Health Maintenance Due Date Last Done Comments PHYSICAL (COMPREHENSIVE) 1979 EXAM PERTUSSIS VACCINE 1983 HIV SCREENING 1987 TETANUS VACCINE 1989 INFLUENZA VACCINE 07/24/2018 Results Not on filefrom Last 3 Months
--- OUTSIDE RECORDS SUMMARY | 2018-02-17 17:43 | XMS REPORT ---
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 Name Role Phone LINDA Gama Unavailable PROBLEMS Type Condition ICD9-CM Code IMZ50-AU Code Onset Dates Condition Status SNOMED Code Problem Mild episode of recurrent major depressive disorder F33.0 Active 434101143 Problem Primary insomnia F51.01 Active 0059779 Problem 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.22 Active 11767419 Problem Lymphedema I89.0 Active 839459358 Problem Chronic systolic congestive heart failure I50.22 Active 529947702 Problem Constipation, unspecified constipation type K59.00 Active 11154803 Problem Mixed hyperlipidemia E78.2 Active 978329649 Problem Stasis dermatitis of both legs I87.2 Active 68447450 Problem BMI 50.0-59.9, adult Z68.43 Active 725813496 Problem Abnormal liver function test R94.5 Active 505617196 Problem Cardiomegaly I51.7 Active 0194619 Problem Controlled substance agreement terminated Z91.14 Active 910135079 Problem HTN (hypertension) I10 Active 59198950 Problem Degenerative disc disease at L5-S1 level M51.36 Active 84108081 Problem Panic disorder F41.0 Active 322066889 Problem BPH (benign prostatic hyperplasia) N40.0 Active 939377485 Problem Chronic pain G89.29 Active 33871549 Problem Dysthymic disorder F34.1 Active 37533941 ALLERGIES No Information ENCOUNTERS Encounter Location Date Diagnosis [facility] [place] [address] [place] [address] 15387- 1938 Dec, [facility] [place] [address] [place] [address] 72438- 1131 Dec, HTN (hypertension) I10 ; BMI 45.0-49.9, adult Z68.42 ; Chronic pain G89.29 ; Primary insomnia F51.01 ; Mixed hyperlipidemia E78.2 ; Dysthymic disorder F34.1 ; 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.22 ; Stasis dermatitis of both legs I87.2 and Chronic systolic congestive heart failure I50.22 [facility] [place] [id number] [place] [address] 03975- 2264 12 Dec, 2017 Chronic pain G89.29 [facility] [id number] [place] [address] 63905 -2383 04 Dec, 2017 Lymphedema I89.0 and Chronic systolic congestive heart failure I50.22 [place] [address] 0[address]22- 9781 Dec, [facility] [place] [address] 60394- 5192 Nov, 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.22 [place] [address] 40484- 2136 Nov, Chronic pain G89.29 and Dysthymic disorder F34.1 [place] [address] 15511- 3263 Nov, [facility] [place] [id number] [place] [address] 34082- 0230 Oct, HTN (hypertension) I10 ; Chronic pain G89.29 ; BMI 45.0-49.9 , adult Z68.42 ; Primary insomnia F51.01 ; Mixed hyperlipidemia E78.2 ; Dysthymic disorder F34.1 ; 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.22 ; Chronic congestive heart failure, unspecified congestive heart failure type I50.9 ; Acute non-recurrent maxillary sinusitis J01.00 and BMI 50.0-59.9, adult Z68.43 [place] [id number] [place] [address] 23085- 5958 Oct, HTN (hypertension) I10 and Dysthymic disorder F34.1 [place] [address] [address] 0596 Oct, [place] [id number] [place] [address] 50169- 8813 Oct, HTN (hypertension) I10 [place] [address] [address] 6300 Oct, Chronic pain G89.29 [place] [id number] [place] [address] 23596- 4767 Sep, [place] [address] [place] [address] 69478- 9295 Sep, HTN (hypertension) I10 ; Chronic pain G89.29 ; BMI 45.0-49.9 , adult Z68.42 ; Primary insomnia F51.01 ; Mixed hyperlipidemia E78.2 ; Dysthymic disorder F34.1 and 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.22 [place] [address] [place] [address] 50159- 3849 Sep, Chronic pain G89.29 [place] [address] [place] [address] 33153- 7327 Sep, Acute on chronic heart failure, unspecified heart failure type I50.9 [place] [address] [address]- 8055 Sep, Acute on chronic heart failure, unspecified heart failure type I50.9 ; 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.22 and BMI 50.0-59.9, adult Z68.43 [place] [address] [address] 0419 Sep, Acute on chronic heart failure, unspecified heart failure type I50.9 ; HTN (hypertension) I10 and 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.22 [place] [address] [address]- 3741 Aug, Acute on chronic heart failure, unspecified heart failure type I50.9 ; HTN (hypertension) I10 ; 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.22 ; Cellulitis of right lower extremity L03.115 and BMI 50.0-59.9, adult Z68.43 [facility] [id number] [place] [address] 51742 -4270 Aug, Acute upper respiratory infection, unspecified J06.9 ; Other viral agents as the cause of diseases classified elsewhere B97.89 ; Constipation, unspecified constipation type K59.00 ; BMI 50.0-59.9, adult Z68.43 and BMI 60.0-69.9, adult Z68.44 [facility] [place] [address] 16957- 3154 Aug, Chronic pain G89.29 [facility] [place] [address] 71848- 1191 Jul, Chronic pain G89.29 [facility] [place] [address] 80974- 3494 Jul, Chronic pain G89.29 [facility] [place] [address] 28843- 3571 Jun, Chronic pain G89.29 [facility] [place] [id number] [place] [address] 71281- 2761 Jun, [facility] [place] [address] 71514- 0058 06 Jun, 2017 Chronic pain G89.29 [facility] [place] [address] 17750- 4363 May, Chronic pain G89.29 and 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.22 [facility] [place] [address] 14918- 5146 16 May, 2017 [facility] [place] [address] 78565- 2579 May, Chronic pain G89.29 and Anxiety F41.9 [place] [address] [place] [address] 15965- 1619 May, 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.22 ; Social phobia F40.10 ; Morbid obesity E66.01 ; Chronic pain G89.29 ; HTN (hypertension) I10 ; Degenerative disc disease at L5-S1 level M51.36 ; BPH (benign prostatic hyperplasia) N40.0 ; Pain in right knee M25.561 and 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 [place] [id number] [place] [address] 07023- 3792 Apr, Anxiety F41.9 [place] [address] 17557- 2429 Apr, [place] [id number] [place] [address] 94237- 2052 Mar, [place] [id number] [place] [address] 84025- 7346 Mar, Edema, unspecified type R60.9 and Anxiety F41.9 [place] [id number] [place] [address] 53414- 3576 Mar, Social phobia F40.10 ; Mixed obsessional thoughts and acts F42.2 and Mild episode of recurrent major depressive disorder F33.0 [place] [id number] [place] [address] 88500- 0750 Mar, Degenerative disc disease at L5-S1 level M51.36 [place] [id number] [place] [address] 69516- 5716 Mar, [place] [id number] [place] [address] 66320- 7459 Mar, [place] [id number] [place] [address] 60761- 4858 Mar, [place] [id number] [place] [address] 22183- 8921 February, Morbid obesity E66.01 ; Anxiety F41.9 ; Degenerative disc disease at L5-S1 level M51.36 ; BPH (benign prostatic hyperplasia) N40.0 ; Social phobia F40.10 ; HTN (hypertension) I10 ; Edema, unspecified type R60.9 and Screening cholesterol level Z13.220 [place] [id number] [place] [address] 11541- 8692 February, Social phobia, generalized F40.11 [place] [id number] [place] [address] 78849- 2425 February, Chronic pain G89.[address] 57567- 1980 February, [place] [id number] [place] [address] 38900- 9506 Jan, Chronic pain G89.29 [place] [id number] [place] [address] 48921- 7123 Jan, Panic disorder [episodic paroxysmal anxiety] without agoraphobia F41.0 [place] [id number] [place] [address] 28075- 4908 Dec, Morbid obesity E66.01 ; Anxiety F41.9 ; Chronic pain G89.29 ; HTN (hypertension) I10 ; BPH (benign prostatic hyperplasia) N40.0 ; Generalized edema R60.1 and Cough R05 [place] [id number] [place] [address] 24286- 6568 14 Nov, 2016 Chronic pain G89.29 [place] [id number] [place] [address] 83205- 6762 Nov, Social phobia, generalized F40.11 and Mild episode of recurrent major depressive disorder F33.0 [place] [id number] [place] [address] 78239- 5445 Oct, Chronic pain G89.29 [place] [id number] [place] [address] 96313- 9610 Oct, Social phobia, generalized F40.11 [facility] [place] [address] [place] [address] 20125- 7069 Sep, [facility] [place] [id number] [place] [address] 07812- 1186 Sep, [facility] [place] [id number] [place] [address] 24265- 7804 Sep, [facility] [place] [id number] [place] [address] 98812- 2172 Sep, [facility] [place] [id number] [place] [address] 74212- 7613 Sep, [facility] [place] [id number] [place] [address] 38755- 1309 Sep, Social phobia, generalized F40.11 and Mild episode of recurrent major depressive disorder F33.0 [facility] [place] [id number] [place] [address] 68226- 9243 Sep, [facility] [place] [id number] [place] [address] 88125- 1946 Aug, [facility] [place] [id number] [place] [address] 17293- 5745 Aug, [facility] [place] [id number] [place] [address] 76145- 3286 Aug, Bronchitis J40 [facility] [place] [id number] [place] [address] 32047- 6150 15 Aug, 2016 [facility] [place] [id number] [place] [address] 29748- 0801 10 Aug, 2016 Osteoarthritis of knee, unspecified M17.9 [facility] [place] [id number] [place] [address] 46313- 7030 09 Aug, 2016 Morbid obesity E66.01 ; Chronic pain G89.29 ; Anxiety F41.9 ; Social phobia F40.10 ; HTN (hypertension) I10 ; Social phobia, generalized F40.11 ; Acute upper respiratory infection, unspecified J06.9 and Other viral agents as the cause of diseases classified elsewhere B97.89 [facility] [place] [id number] [place] [address] 46002- 7822 Aug, Social phobia, generalized F40.11 and Dysthymic disorder F34.1 [facility] [place] [id number] [place] [address] 86004- 6592 Jul, [facility] [place] [id number] [place] [address] 69409- 7154 Jun, [facility] [place] [id number] [place] [address] 56386- 2513 May, [facility] [place] [id number] [place] [address] 37288- 3940 May, [facility] [place] [id number] [place] [address] 60216- 9633 May, [facility] [place] [id number] [place] [address] 78196- 7024 May, [facility] [place] [id number] [place] [address] 22291- 3608 May, [facility] [place] [address] [place] [address] 07817- 3352 May, [facility] [place] [address] [place] [address] 93647- 3274 May, [facility] [place] [address] [place] [address] 26260- 3373 Apr, [facility] [place] [id number] [place] [address] 15101- 6278 Apr, Chondromalacia, right knee M94.261 [facility] [place] [address] [address]- 0490 Apr, Pain in unspecified hip M25.559 [facility] [place] [id number] [place] [address] 90422- 3126 Mar, Social phobia, unspecified F40.10 and Pain in unspecified hip M25.559 [place] [id number] [place] [address] 09987- 7637 February, [place] [id number] [place] [address] 64979- 3630 February, Social phobia F40.10 [place] [id number] [place] [address] 10978- 5916 February, Morbid obesity E66.01 ; Chronic pain G89.29 ; Social phobia F40.10 ; Pelvic pain in male R10.2 ; HTN (hypertension) I10 ; Degenerative disc disease at L5-S1 level M51.36 ; BPH (benign prostatic hyperplasia) N40.0 and Pain in right knee M25.561 [place] [address] 70849- 2108 14 Jan, 2016 [place] [id number] [place] [address] 10701- 1254 Jan, [place] [address] 51154- 1131 Jan, [place] [id number] [place] [address] 32149- 5767 Dec, [place] [id number] [place] [address] 23927- 2468 Dec, [place] [id number] [place] [address] 32374- 5983 Dec, [facility] [address] 82275 -7812 Nov, Strep pharyngitis J02.0 ; Influenza A J10.1 and Cough R05 [place] [id number] [place] [address] 84247- 2493 Nov, [place] [id number] [place] [address] 06205- 4077 17 Nov, 2015 [facility] [place] [address] 76538- 9597 Oct, HTN (hypertension) I10 ; Morbid obesity E66.01 ; Anxiety F41.9 ; Social phobia F40.10 ; Panic disorder F41.0 ; Degenerative disc disease at L5-S1 level M51.36 and Hypercholesterolemia E78.0 [facility] [place] [id number] [place] [address] 13919- 0012 Oct, Panic disorder [episodic paroxysmal anxiety] without agoraphobia F41.0 and Social phobia, generalized F40.11 [facility] [place] [id number] [place] [address] 03196- 7710 Oct, [facility] [place] [id number] [place] [address] 76708- 3807 Sep, [facility] [place] [id number] [place] [address] 85249- 7028 Sep, [facility] [place] [id number] [place] [address] 07238- 0256 Sep, [facility] [place] [id number] [place] [address] 86429- 2319 Sep, [facility] [place] [id number] [place] [address] 77644- 3950 Aug, [facility] [place] [id number] [place] [address] 27824- 3334 Aug, [facility] [place] [id number] [place] [address] 80495- 8916 Aug, [facility] [place] [id number] [place] [address] 40207- 3080 Aug, Social phobia F40.10 and Panic disorder F41.0 [facility] [place] [id number] [place] [address] 41339- 9093 Aug, [facility] [place] [address] [address]- 5800 Aug, [facility] [place] [id number] [place] [address] 34735- 0975 Aug, [facility] [place] [id number] [place] [address] 56339- 5004 Aug, [facility] [place] [address] 92445- 8881 Jul, [facility] [place] [id number] [place] [address] 47869- 1009 Jul, Morbid obesity E66.01 ; Chronic pain G89.29 ; Anxiety F41.9 ; Social phobia F40.10 ; Panic disorder F41.0 ; Pelvic pain in male R10.2 ; Insomnia G47.00 and HTN (hypertension) I10 [facility] [place] [id number] [place] [address] 24614- 3829 Jul, [facility] [place] [id number] [place] [address] 55422- 2132 Jul, [facility] [place] [id number] [place] [address] 80710- 2267 16 Jun, 2015 Degenerative disc disease 722.6 [facility] [place] [id number] [place] [address] 51482- 4561 Jun, Pain in joint, pelvic region and thigh 719.45 ; Morbid obesity 278.01 ; Essential hypertension, benign 401.1 and Constipation 564.00 [facility] [place] [id number] [place] [address] 95098- 9826 May, [facility] [place] [id number] [place] [address] 85055- 9678 May, [facility] [place] [id number] [place] [address] 81551- 2619 May, [facility] [place] [id number] [place] [address] 71299- 2115 May, [facility] [place] [id number] [place] [address] 81203- 0345 May, [facility] [place] [id number] [place] [address] 48737- 3133 May, [facility] [place] [id number] [place] [address] 41045- 0478 May, Essential hypertension, benign 401.1 ; Anxiety state, unspecified 300.00 ; Panic disorder without agoraphobia 300.01 ; Social phobia 300.23 ; Morbid obesity 278.01 ; Other chronic pain 338.29 and Insomnia 780.52 [facility] [place] [id number] [place] [address] 34785- 1701 May, Essential hypertension 401.9 [facility] [place] [id number] [place] [address] 69718- 8000 May, Pain in joint, pelvic region and thigh 719.45 [facility] [place] [id number] [place] [address] 32872- 7836 May, Essential hypertension, benign 401.1 [facility] [place] [id number] [place] [address] 34453- 4213 May, Panic disorder without agoraphobia 300.01 and Social phobia 300.23 [facility] [place] [id number] [place] [address] 06371- 3468 May, [facility] [place] [id number] [place] [address] 90171- 9770 May, [facility] [place] [id number] [place] [address] 88320- 0790 Apr, Chronic pain 338.29 [facility] [place] [id number] [place] [address] 03574- 3704 Apr, [facility] [place] [id number] [place] [address] 15015- 6228 Apr, [facility] [place] [address] [address]- 1262 Apr, [facility] [place] [id number] [place] [address] 00904- 9050 Apr, [facility] [place] [id number] [address]- 8805 Apr, [facility] [place] [id number] [place] [address] 34243- 1855 Apr, [facility] [place] [id number] [place] [address] 64265- 9838 Apr, [facility] [place] [id number] [place] [address]- [address] Apr, Essential hypertension, benign 401.1 ; Morbid obesity 278.01 ; Anxiety state, unspecified 300.00 ; Panic disorder without agoraphobia 300.01 ; Social phobia 300.23 and Chronic pain 338.29 [facility] [place] [id number] [address] Mar, [facility] [place] [id number] [place] [address] Mar, [facility] [place] [id number] [place] [address] Mar, [facility] [place] [id number] [address] Mar, [facility] [place] [id number] [address] Mar, Social phobia 300.23 and Panic disorder without agoraphobia 300.01 [facility] [place] [id number] [place] [address] Mar, [facility] [place] [id number] [address] February, [facility] [place] [id number] [place] [id number] February, Major depression, recurrent 296.30 and No condition on [place] II V71.09 [facility] [place] [id number] [address] February, [facility] [place] [facility] [id number], [place] [address] February, Panic disorder without agoraphobia 300.01 ; Social phobia 300.23 and Morbid obesity 278.01 [facility] [place] [address] [address] Jan, [facility] [place] [id number] [place] [address] Jan, [facility] [place] [id number] [place] [address] Dec, [facility] [place] [id number] [place] [address] Dec, [facility] [place] [address] [address] Dec, [facility] [place] [address] [address] Dec, [facility] [place] [address] [address] Dec, [facility] [place] [address] [address] Dec, [facility] [place] [id number] [address] Dec, [facility] [place] [address] [address] Dec, [facility] [place] [address] [address] Dec, [facility] [place] [address] [address] Dec, [facility] [place] [address] [facility] [id number] [address] Dec, [facility] [place] [id number] [address] Dec, [facility] [place] [id number] [address] Dec, [facility] [place] [address] [facility] [id number] [address] Dec, [facility] [place] [address] [facility] [id number] [address] Dec, [facility] [place] [id number] [address] Dec, IMMUNIZATIONS No Known Immunizations SOCIAL HISTORY Never Assessed REASON FOR VISIT no-show for DM ed PLAN OF CARE VITAL SIGNS MEDICATIONS Unknown Medications RESULTS No Results PROCEDURES No Known procedures INSTRUCTIONS MEDICATIONS ADMINISTERED No Known Medications MEDICAL (GENERAL) HISTORY Type Description Date Medical History hypertension Medical History morbid obesity Medical History anxiety Medical History CHF, echo 2016, with EF 20-25, moderate to severe tricuspid regurgitation, seen Miguel 11/30/17. Medical History Social phobia, generalized Medical History Chronic pain Medical History Degenerative disc disease at L5-S1 level Medical History Dysthymic disorder Medical History 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 kidney disease Medical History Cardiomegaly Medical History Mixed hyperlipidemia Medical History Primary insomnia Surgical History Heart Cath-no stent placement 10/2017 Hospitalization History ER visit due to panic attacks Hospitalization History chest pain Hospitalization History ER -edema 08/2017
--- OUTSIDE RECORDS SUMMARY | 2018-02-17 17:44 | XMS REPORT ---
Author Author LINDA Gama Organization [facility] Address [address] [place] [address] Care Team Providers Care Floral Assistant Name Role Phone LINDA Gama Unavailable PROBLEMS Type Condition ICD9-CM Code UVM53-FA Code Onset Dates Condition Status SNOMED Code Problem Mild episode of recurrent major depressive disorder F33.0 Active 361812309 Problem Primary insomnia F51.01 Active 2306683 Problem 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.22 Active 77717869 Problem Lymphedema I89.0 Active 462030740 Problem Chronic systolic congestive heart failure I50.22 Active 205327647 Problem Constipation, unspecified constipation type K59.00 Active 85264555 Problem Mixed hyperlipidemia E78.2 Active 866497044 Problem Stasis dermatitis of both legs I87.2 Active 04815318 Problem BMI 50.0-59.9, adult Z68.43 Active 159624988 Problem Abnormal liver function test R94.5 Active 590715717 Problem Cardiomegaly I51.7 Active 3699395 Problem Controlled substance agreement terminated Z91.14 Active 398576798 Problem HTN (hypertension) I10 Active 75365128 Problem Degenerative disc disease at L5-S1 level M51.36 Active 16767736 Problem Panic disorder F41.0 Active 817979521 Problem BPH (benign prostatic hyperplasia) N40.0 Active 043106108 Problem Chronic pain G89.29 Active 68054043 Problem Dysthymic disorder F34.1 Active 23058363 ALLERGIES No Information ENCOUNTERS Encounter Location Date Diagnosis [facility] [id number] [place] [address] 82119- 8331 Jan, [facility] [id number] [place] [address] 53711- 8109 Jan, Abnormal liver function test R94.5 ; Dysthymic disorder F34.1 and Chronic pain G89.29 [facility] [id number] [place] [address] 50962- 8731 Dec, [facility] [id number] [place] [address] 44859- 1915 Dec, HTN (hypertension) I10 ; BMI 45.0-49.9, adult Z68.42 ; Chronic pain G89.29 ; Primary insomnia F51.01 ; Mixed hyperlipidemia E78.2 ; Dysthymic disorder F34.1 ; 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.22 ; Stasis dermatitis of both legs I87.2 and Chronic systolic congestive heart failure I50.22 [facility] [id number] [place] [address] 09651- 7343 Dec, Chronic pain G89.29 [facility] [id number] [place] [address] 46580 -3657 Dec, Lymphedema I89.0 and Chronic systolic congestive heart failure I50.22 [facility] [id number] [place] [address] 10248- 6193 Dec, [facility] [id number] [place] [address] 82787- 0642 Nov, 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.22 [facility] [id number] [place] [address] 93398- 2214 Nov, Chronic pain G89.29 and Dysthymic disorder F34.1 [facility] [id number] [place] [address] 36704- 0766 Nov, [facility] [id number] [place] [address] 06517- 5568 Oct, HTN (hypertension) I10 ; Chronic pain G89.29 ; BMI 45.0-49.9 , adult Z68.42 ; Primary insomnia F51.01 ; Mixed hyperlipidemia E78.2 ; Dysthymic disorder F34.1 ; 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.22 ; Chronic congestive heart failure, unspecified congestive heart failure type I50.9 ; Acute non-recurrent maxillary sinusitis J01.00 and BMI 50.0-59.9, adult Z68.43 [facility] [id number] [place] [address] 69140- 0894 Oct, HTN (hypertension) I10 and Dysthymic disorder F34.1 [facility] [id number] [place] [address] 21219- 4363 Oct, [facility] [id number] [place] [address] 45487- 3513 Oct, HTN (hypertension) I10 [facility] [address] 38386- 0860 Oct, Chronic pain G89.29 [facility] [id number] [place] [address] 26427- 9569 28 Sep, 2017 [facility] [id number] [place] [address] 17888- 8977 Sep, HTN (hypertension) I10 ; Chronic pain G89.29 ; BMI 45.0-49.9 , adult Z68.42 ; Primary insomnia F51.01 ; Mixed hyperlipidemia E78.2 ; Dysthymic disorder F34.1 and 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.22 [facility] [id number] [place] [address] 67286- 6682 18 Sep, 2017 Chronic pain G89.29 [facility] [id number] [place] [address] 37011- 2410 11 Sep, 2017 Acute on chronic heart failure, unspecified heart failure type I50.9 [facility] [id number] [place] [address] 78216- 4297 06 Sep, 2017 Acute on chronic heart failure, unspecified heart failure type I50.9 ; 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.22 and BMI 50.0-59.9, adult Z68.43 [facility] [id number] [place] [address] 64364- 0527 Sep, Acute on chronic heart failure, unspecified heart failure type I50.9 ; HTN (hypertension) I10 and 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.22 [facility] [address] [place] [address] 37462- 6382 Aug, Acute on chronic heart failure, unspecified heart failure type I50.9 ; HTN (hypertension) I10 ; 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.22 ; Cellulitis of right lower extremity L03.115 and BMI 50.0-59.9, adult Z68.43 [facility] [id number] [place] [address] 58783 -2599 Aug, Acute upper respiratory infection, unspecified J06.9 ; Other viral agents as the cause of diseases classified elsewhere B97.89 ; Constipation, unspecified constipation type K59.00 ; BMI 50.0-59.9, adult Z68.43 and BMI 60.0-69.9, adult Z68.44 [facility] [id number] [place] [address] 26853- 3159 Aug, Chronic pain G89.29 [facility] [id number] [place] [address] 60872- 2556 Jul, Chronic pain G89.29 [facility] [id number] [place] [address] 34545- 6665 Jul, Chronic pain G89.29 [facility] [id number] [place] [address] 94585- 9949 Jun, Chronic pain G89.29 [facility] [id number] [place] [address] 53890- 1779 Jun, [facility] [address] 14151- 1327 Jun, Chronic pain G89.29 [facility] [id number] [place] [address] 52349- 7700 May, Chronic pain G89.29 and 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.22 [facility] [id number] [place] [address] 26141- 2694 16 May, 2017 [facility] [id number] [place] [address] 45273- 7648 11 May, 2017 Chronic pain G89.29 and Anxiety F41.9 [facility] [address] 67462- 6264 May, 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.22 ; Social phobia F40.10 ; Morbid obesity E66.01 ; Chronic pain G89.29 ; HTN (hypertension) I10 ; Degenerative disc disease at L5-S1 level M51.36 ; BPH (benign prostatic hyperplasia) N40.0 ; Pain in right knee M25.561 and 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 [place] [id number] [place] [address] 48910- 0100 Apr, Anxiety F41.9 [facility] [id number] [place] [address] 38220- 4103 Apr, [facility] [id number] [place] [address] 04298- 5363 Mar, [facility] [id number] [place] [address] 08910- 9203 Mar, Edema, unspecified type R60.9 and Anxiety F41.9 [facility] [id number] [place] [address] 07228- 0675 Mar, Social phobia F40.10 ; Mixed obsessional thoughts and acts F42.2 and Mild episode of recurrent major depressive disorder F33.[address] 63317- 7011 Mar, Degenerative disc disease at L5-S1 level M51.36 [facility] [id number] [place] [address] 41206- 2081 13 Mar, [id number] [place] [address] 19372- 1136 Mar, [facility] [id number] [place] [address] 09186- 4517 Mar, [facility] [id number] [place] [address] 20731- 8699 February, Morbid obesity E66.01 ; Anxiety F41.9 ; Degenerative disc disease at L5-S1 level M51.36 ; BPH (benign prostatic hyperplasia) N40.0 ; Social phobia F40.10 ; HTN (hypertension) I10 ; Edema, unspecified type R60.9 and Screening cholesterol level Z13.[address] 03394- 2760 February, Social phobia, generalized F40.[address] 19477- 5863 February, Chronic pain G89.[address] 39810- 7533 February, [address] 05902- 0025 Jan, Chronic pain G89.[address] 29361- 1365 Jan, Panic disorder [episodic paroxysmal anxiety] without agoraphobia F41.0 [place] [place] [id number] [place] [address] 58766- 9247 Dec, Morbid obesity E66.01 ; Anxiety F41.9 ; Chronic pain G89.29 ; HTN (hypertension) I10 ; BPH (benign prostatic hyperplasia) N40.0 ; Generalized edema R60.1 and Cough R05 [place] [id number] [place] [address] 90163- 4820 14 Nov, 2016 Chronic pain G89.[address] 84091- 9657 Nov, Social phobia, generalized F40.11 and Mild episode of recurrent major depressive disorder F33.0 [facility] [address] [place] [address] 81966- 2657 Oct, Chronic pain G89.29 [facility] [id number] [place] [address] 89581- 1066 Oct, Social phobia, generalized F40.11 [facility] [id number] [place] [address] 05216- 0275 Sep, [facility] [id number] [place] [address] 06810- 9029 Sep, [facility] [id number] [place] [address] 34069- 4309 Sep, [facility] [id number] [place] [address] 50425- 3694 Sep, [facility] [id number] [place] [address] 86818- 6937 Sep, [facility] [id number] [place] [address] 33626- 0050 Sep, Social phobia, generalized F40.11 and Mild episode of recurrent major depressive disorder F33.0 [facility] [address] [place] [address] 31437- 9629 Sep, [facility] [id number] [place] [address] 67617- 6395 Aug, [facility] [address] [place] [address] 25257- 6427 Aug, [facility] [id number] [place] [address] 22702- 5094 Aug, Bronchitis J40 [facility] [address] [place] [address] 45863- 2409 Aug, [facility] [id number] [place] [address] 20181- 2547 Aug, Osteoarthritis of knee, unspecified M17.9 [facility] [id number] [place] [address] 82324- 4758 Aug, Morbid obesity E66.01 ; Chronic pain G89.29 ; Anxiety F41.9 ; Social phobia F40.10 ; HTN (hypertension) I10 ; Social phobia, generalized F40.11 ; Acute upper respiratory infection, unspecified J06.9 and Other viral agents as the cause of diseases classified elsewhere B97.89 [facility] [id number] [place] [address] 40758- 1377 Aug, Social phobia, generalized F40.11 and Dysthymic disorder F34.1 [facility] [id number] [place] [address] 51153- 0918 Jul, [facility] [id number] [place] [address] 68834- 6372 Jun, [facility] [id number] [place] [address] 28816- 5743 May, [facility] [id number] [place] [address] 70025- 9915 May, [facility] [id number] [place] [address] 53160- 7765 May, [facility] [id number] [place] [address] 05763- 0010 May, [facility] [id number] [place] [address] 93721- 6384 May, [facility] [id number] [place] [address] 17392- 8061 May, [facility] [id number] [place] [address] 27607- 0232 May, [facility] [id number] [place] [address] 57259- 1988 Apr, [place] [id number] [address]- 2846 Apr, Chondromalacia, right knee M94.261 [facility] [id number] [place] [address] 09283- 0653 Apr, Pain in unspecified hip M25.559 [facility] [id number] [place] [address] 34313- 8905 Mar, Social phobia, unspecified F40.10 and Pain in unspecified hip M25.559 [facility] [id number] [place] [address] 28363- 9437 February, [facility] [id number] [place] [address] 37624- 0797 February, Social phobia F40.10 [facility] [id number] [place] [address] 01422- 3566 February, Morbid obesity E66.01 ; Chronic pain G89.29 ; Social phobia F40.10 ; Pelvic pain in male R10.2 ; HTN (hypertension) I10 ; Degenerative disc disease at L5-S1 level M51.36 ; BPH (benign prostatic hyperplasia) N40.0 and Pain in right knee M25.561 [facility] [id number] [address]- 6374 14 Jan, 2016 [place] [id number] [place] [address] 51396- 8398 13 Jan, 2016 [place] [id number] [place] [address] 61138- 6615 Jan, [facility] [id number] [place] [address] 59540- 0062 17 Dec, 2015 [place] [id number] [place] [address] 17253- 2006 Dec, [facility] [address] [place] [address] 29339- 2397 Dec, [facility] [address] [address] -0727 29 Nov, 2015 Strep pharyngitis J02.0 ; Influenza A J10.1 and Cough R05 [facility] [id number] [place] [address] 62874- 9302 18 Nov, 2015 [facility] [id number] [place] [address] 80491- 2143 Nov, [facility] [id number] [place] [address] 98091- 4625 Oct, HTN (hypertension) I10 ; Morbid obesity E66.01 ; Anxiety F41.9 ; Social phobia F40.10 ; Panic disorder F41.0 ; Degenerative disc disease at L5-S1 level M51.36 and Hypercholesterolemia E78.0 [facility] [id number] [place] [address] 06065- 5133 Oct, Panic disorder [episodic paroxysmal anxiety] without agoraphobia F41.0 and Social phobia, generalized F40.11 [facility] [id number] [place] [address] 18101- 5263 Oct, [facility] [id number] [place] [address] 53699- 2691 Sep, [facility] [id number] [place] [address] 37175- 1518 Sep, [facility] [id number] [place] [address] 78137- 5482 Sep, [facility] [id number] [place] [address] 22891- 3699 Sep, [facility] [address] 74767- 5476 Aug, [facility] [id number] [place] [address] 46252- 9004 Aug, [facility] [address] 57735- 6652 Aug, [facility] [id number] [place] [address] 92868- 7060 Aug, Social phobia F40.10 and Panic disorder F41.0 [facility] [id number] [place] [address] 96491- 9033 Aug, [facility] [address] 98655- 3089 Aug, [facility] [id number] [place] [address] 59827- 0943 Aug, [facility] [id number] [place] [address] 34016- 3635 Aug, [facility] [id number] [place] [address] 15312- 0229 Jul, [facility] [id number] [place] [address] 14848- 2490 Jul, Morbid obesity E66.01 ; Chronic pain G89.29 ; Anxiety F41.9 ; Social phobia F40.10 ; Panic disorder F41.0 ; Pelvic pain in male R10.2 ; Insomnia G47.00 and HTN (hypertension) I10 [facility] [id number] [place] [address] 05500- 2342 Jul, [facility] [id number] [place] [address] 72479- 2515 Jul, [facility] [id number] [place] [address] 78569- 2852 16 Jun, 2015 Degenerative disc disease 722.6 [facility] [id number] [place] [address] 54133- 1567 Jun, Pain in joint, pelvic region and thigh 719.45 ; Morbid obesity 278.01 ; Essential hypertension, benign 401.1 and Constipation 564.00 [facility] [id number] [place] [address] 17619- 4674 May, [facility] [address] [address]- 2152 May, [facility] [id number] [place] [address] 78657- 0467 May, [facility] [id number] [place] [address] 72165- 6541 May, [facility] [id number] [place] [address] 15718- 8178 May, [facility] [id number] [place] [address] 02399- 3220 May, [facility] [id number] [place] [address] 38702- 4717 May, Essential hypertension, benign 401.1 ; Anxiety state, unspecified 300.00 ; Panic disorder without agoraphobia 300.01 ; Social phobia 300.23 ; Morbid obesity 278.01 ; Other chronic pain 338.29 and Insomnia 780.52 [facility] [id number] [place] [address] 34696- 6053 May, Essential hypertension 401.9 [facility] [id number] [place] [address] 47397- 2517 May, Pain in joint, pelvic region and thigh 719.45 [facility] [id number] [place] [address] 34172- 1313 May, Essential hypertension, benign 401.1 [facility] [id number] [place] [address] 14302- 8548 May, Panic disorder without agoraphobia 300.01 and Social phobia 300.23 [facility] [id number] [place] [address] 97462- 2661 May, [facility] [id number] [place] [address] 56847- 4920 May, [facility] [id number] [address]- 7784 Apr, Chronic pain 338.29 [facility] [address] [address]- 1942 Apr, 2014 [facility] [address] [address]- 9976 Apr, 2014 [facility] [address] [place] [address]- 5192 Apr, 2014 [facility] [address] [address]- 1297 Apr, 2014 [facility] [id number] [place] [address] 65582- 9390 Apr, 2014 [facility] [address] [address]- 8178 Apr, [facility] [address] [place] [address]- 6068 Apr, [facility] [address] [place] [address]- 3211 Apr, Essential hypertension, benign 401.1 ; Morbid obesity 278.01 ; Anxiety state, unspecified 300.00 ; Panic disorder without agoraphobia 300.01 ; Social phobia 300.23 and Chronic pain 338.29 [facility] [address], [place] [address]- 2092 Mar, [facility] [address] [place] [address]- 3641 Mar, [facility] [address] [place] [address]- 7501 Mar, [facility] [address] [address]- 7393 Mar, [facility] [id number] [address]- 1621 Mar, Social phobia 300.23 and Panic disorder without agoraphobia 300.01 [facility] [address] [place] [address]- 5350 Mar, [facility] [id number] [place] [address] 30387- 1216 February, [facility] [address] [address] February, Major depression, recurrent 296.30 and No condition on [place] II V71.09 [facility] [id number] [place] [address] February, [facility] [id number] [place] [address] February, Panic disorder without agoraphobia 300.01 ; Social phobia 300.23 and Morbid obesity 278.01 [facility] [id number], [place] [address] Jan, [facility] [id number] [address] Jan, [facility] [id number], [place] [address] Dec, [facility] [id number] [address] Dec, [facility] [id number], [place] [address] Dec, [facility] [id number], [place] [address] Dec, [facility] [id number], [place] [address] Dec, [facility] [id number], [place] [address] Dec, [facility] [id number], [place] [address] Dec, [facility] [id number] [address] Dec, [facility] [id number], [place] [address] Dec, [facility] [address] [facility] [id number] [address] Dec, [facility] [id number] [address] Dec, [facility] [address], [place] [address] Dec, [facility] [id number] [address] Dec, [facility] [id number], [place] [address] Dec, [facility] [id number] [address] Dec, [facility] [id number] [address] Dec, IMMUNIZATIONS No Known Immunizations SOCIAL HISTORY Never Assessed REASON FOR VISIT medication PLAN OF CARE VITAL SIGNS MEDICATIONS Medication Instructions Dosage Frequency Start Date End Date Duration Status Xanax 0.5 MG Orally Twice a day 1 tablet 12h 25 Feb, 2017 28 days Active RESULTS No Results PROCEDURES [...] History Mixed hyperlipidemia Medical History Primary insomnia Medical History Controlled substance agreement terminated Surgical History Heart Cath-no stent placement 10/2017 Hospitalization History ER visit due to panic attacks Hospitalization History chest pain Hospitalization History ER -edema 08/2017
--- OUTSIDE RECORDS SUMMARY | 2018-02-17 17:45 | XMS REPORT ---
Author Author LINDA Gama Organization [facility] Address [address] [place] [address] Care Team Providers Care Screen Door Maker Name Role Phone LINDA Gama Unavailable PROBLEMS Type Condition ICD9-CM Code QDS21-EX Code Onset Dates Condition Status SNOMED Code Problem Mild episode of recurrent major depressive disorder F33.0 Active 798981798 Problem Primary insomnia F51.01 Active 1251021 Problem 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.22 Active 96310144 Problem Lymphedema I89.0 Active 334698364 Problem Chronic systolic congestive heart failure I50.22 Active 123293510 Problem Constipation, unspecified constipation type K59.00 Active 04893808 Problem Mixed hyperlipidemia E78.2 Active 512399179 Problem Stasis dermatitis of both legs I87.2 Active 13910319 Problem BMI 50.0-59.9, adult Z68.43 Active 208573352 Problem Abnormal liver function test R94.5 Active 198944236 Problem Cardiomegaly I51.7 Active 6268664 Problem Controlled substance agreement terminated Z91.14 Active 163928093 Problem HTN (hypertension) I10 Active 48750839 Problem Degenerative disc disease at L5-S1 level M51.36 Active 03725766 Problem Panic disorder F41.0 Active 596374303 Problem BPH (benign prostatic hyperplasia) N40.0 Active 835503159 Problem Chronic pain G89.29 Active 33497697 Problem Dysthymic disorder F34.1 Active 53729317 ALLERGIES No Information ENCOUNTERS Encounter Location Date Diagnosis [facility] [id number] [place] [address] 13672- 6951 Dec, [facility] [id number] [place] [address] 78195- 8773 Dec, HTN (hypertension) I10 ; BMI 45.0-49.9, adult Z68.42 ; Chronic pain G89.29 ; Primary insomnia F51.01 ; Mixed hyperlipidemia E78.2 ; Dysthymic disorder F34.1 ; 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.22 ; Stasis dermatitis of both legs I87.2 and Chronic systolic congestive heart failure I50.22 [facility] [id number] [place] [address] 98015- 0962 12 Dec, 2017 Chronic pain G89.29 [facility] [id number] [place] [address] 11709 -2796 04 Dec, 2017 Lymphedema I89.0 and Chronic systolic congestive heart failure I50.22 [place] [facility] [address] 77419- 4444 Dec, [facility] [address] 28823- 7347 Nov, 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.22 [place] [facility] [address] 23447- 4433 Nov, Chronic pain G89.29 and Dysthymic disorder F34.1 [facility] [facility] [address] 11142- 7177 Nov, [facility] [id number] [place] [address] 98375- 1134 Oct, HTN (hypertension) I10 ; Chronic pain G89.29 ; BMI 45.0-49.9 , adult Z68.42 ; Primary insomnia F51.01 ; Mixed hyperlipidemia E78.2 ; Dysthymic disorder F34.1 ; 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.22 ; Chronic congestive heart failure, unspecified congestive heart failure type I50.9 ; Acute non-recurrent maxillary sinusitis J01.00 and BMI 50.0-59.9, adult Z68.43 [facility] [facility] [id number] [place] [address] 39814- 4896 Oct, HTN (hypertension) I10 and Dysthymic disorder F34.1 [facility] [facility] [address] [address] 6882 Oct, [facility] [facility] [id number] [place] [address] 65195- 5766 Oct, HTN (hypertension) I10 [facility] [facility] [address] [address] 5532 Oct, Chronic pain G89.29 [facility] [facility] [id number] [place] [address] 70900- 6085 Sep, [facility] [facility] [id number] [place] [address] 79952- 1891 Sep, HTN (hypertension) I10 ; Chronic pain G89.29 ; BMI 45.0-49.9 , adult Z68.42 ; Primary insomnia F51.01 ; Mixed hyperlipidemia E78.2 ; Dysthymic disorder F34.1 and 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.22 [facility] [id number] [place] [address] 23214- 9791 Sep, Chronic pain G89.29 [facility] [facility] [id number] [place] [address] 93778- 4652 Sep, Acute on chronic heart failure, unspecified heart failure type I50.9 [facility] [facility] [address] [address] 3167 Sep, Acute on chronic heart failure, unspecified heart failure type I50.9 ; 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.22 and BMI 50.0-59.9, adult Z68.43 [place] [facility] [address] [address]- 4794 Sep, Acute on chronic heart failure, unspecified heart failure type I50.9 ; HTN (hypertension) I10 and 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.22 [place] [id number] [address]- 0252 Aug, Acute on chronic heart failure, unspecified heart failure type I50.9 ; HTN (hypertension) I10 ; 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.22 ; Cellulitis of right lower extremity L03.115 and BMI 50.0-59.9, adult Z68.43 [facility] [id number] [place] [address] 98904 -7095 Aug, Acute upper respiratory infection, unspecified J06.9 ; Other viral agents as the cause of diseases classified elsewhere B97.89 ; Constipation, unspecified constipation type K59.00 ; BMI 50.0-59.9, adult Z68.43 and BMI 60.0-69.9, adult Z68.44 [facility] [address] 78577- 4150 Aug, Chronic pain G89.29 [facility] [address] 31214- 8493 Jul, Chronic pain G89.29 [facility] [address] 50030- 0968 Jul, Chronic pain G89.29 [facility] [address] 59832- 4419 Jun, Chronic pain G89.29 [facility] [id number] [place] [address] 89234- 9691 Jun, [facility] [address] 31013- 9594 06 Jun, 2017 Chronic pain G89.29 [facility] [address] 90662- 6051 May, Chronic pain G89.29 and 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.22 [facility] [address] 09336- 0540 16 May, 2017 [facility] [address] 93844- 6426 May, Chronic pain G89.29 and Anxiety F41.9 [place] [id number] [place] [address] 11798- 8106 May, 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.22 ; Social phobia F40.10 ; Morbid obesity E66.01 ; Chronic pain G89.29 ; HTN (hypertension) I10 ; Degenerative disc disease at L5-S1 level M51.36 ; BPH (benign prostatic hyperplasia) N40.0 ; Pain in right knee M25.561 and 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 [place] [id number] [place] [address] 78022- 3325 Apr, Anxiety F41.9 [place] [facility] [address] 13440- 6025 Apr, [place] [id number] [place] [address] 81370- 0389 Mar, [facility] [facility] [id number] [place] [address] 13602- 8487 Mar, Edema, unspecified type R60.9 and Anxiety F41.9 [facility] [facility] [id number] [place] [address] 30550- 5336 Mar, Social phobia F40.10 ; Mixed obsessional thoughts and acts F42.2 and Mild episode of recurrent major depressive disorder F33.0 [place] [facility] [id number] [place] [address] 45974- 4445 Mar, Degenerative disc disease at L5-S1 level M51.36 [facility] [facility] [id number] [place] [address] 34888- 2766 Mar, [place] [facility] [id number] [place] [address] 24738- 7521 Mar, [place] [id number] [place] [address] 09079- 1041 Mar, [facility] [facility] [id number] [place] [address] 13219- 9799 February, Morbid obesity E66.01 ; Anxiety F41.9 ; Degenerative disc disease at L5-S1 level M51.36 ; BPH (benign prostatic hyperplasia) N40.0 ; Social phobia F40.10 ; HTN (hypertension) I10 ; Edema, unspecified type R60.9 and Screening cholesterol level Z13.220 [place] [id number] [place] [address] 87800- 9921 February, Social phobia, generalized F40.11 [place] [id number] [place] [address] 47205- 5570 February, Chronic pain G89.[address] 20793- 9129 February, [facility] [facility] [id number] [place] [address] 56259- 7965 Jan, Chronic pain G89.29 [place] [id number] [place] [address] 52773- 4295 Jan, Panic disorder [episodic paroxysmal anxiety] without agoraphobia F41.0 [place] [id number] [place] [address] 13823- 1682 Dec, Morbid obesity E66.01 ; Anxiety F41.9 ; Chronic pain G89.29 ; HTN (hypertension) I10 ; BPH (benign prostatic hyperplasia) N40.0 ; Generalized edema R60.1 and Cough R05 [place] [id number] [place] [address] 05540- 6331 14 Nov, 2016 Chronic pain G89.29 [place] [id number] [place] [address] 08300- 9237 Nov, Social phobia, generalized F40.11 and Mild episode of recurrent major depressive disorder F33.0 [place] [facility] [id number] [place] [address] 78233- 9278 Oct, Chronic pain G89.29 [place] [id number] [place] [address] 46758- 7293 Oct, Social phobia, generalized F40.11 [facility] [id number] [place] [address] 95103- 4749 Sep, [facility] [id number] [place] [address] 95384- 4675 Sep, [facility] [id number] [place] [address] 26919- 7554 Sep, [facility] [id number] [place] [address] 16419- 3232 Sep, [facility] [id number] [place] [address] 30954- 2015 Sep, [facility] [id number] [place] [address] 54174- 9739 Sep, Social phobia, generalized F40.11 and Mild episode of recurrent major depressive disorder F33.0 [facility] [id number] [place] [address] 62059- 8910 Sep, [facility] [id number] [place] [address] 61092- 7693 Aug, [facility] [id number] [place] [address] 15404- 3016 Aug, [facility] [id number] [place] [address] 00450- 7198 Aug, Bronchitis J40 [facility] [id number] [place] [address] 78700- 8895 15 Aug, 2016 [facility] [id number] [place] [address] 49380- 8171 10 Aug, 2016 Osteoarthritis of knee, unspecified M17.9 [facility] [id number] [place] [address] 05881- 1335 09 Aug, 2016 Morbid obesity E66.01 ; Chronic pain G89.29 ; Anxiety F41.9 ; Social phobia F40.10 ; HTN (hypertension) I10 ; Social phobia, generalized F40.11 ; Acute upper respiratory infection, unspecified J06.9 and Other viral agents as the cause of diseases classified elsewhere B97.89 [facility] [id number] [place] [address] 52030- 8795 Aug, Social phobia, generalized F40.11 and Dysthymic disorder F34.1 [facility] [id number] [place] [address] 87504- 3443 Jul, [facility] [id number] [place] [address] 84225- 5495 Jun, [facility] [id number] [place] [address] 53965- 6060 May, [facility] [id number] [place] [address] 70135- 3623 May, [facility] [id number] [place] [address] 83142- 8685 May, [facility] [id number] [place] [address] 21884- 7437 May, [facility] [id number] [place] [address] 99176- 0915 May, [facility] [id number] [place] [address] 29632- 4047 May, [facility] [id number] [place] [address] 23969- 2095 May, [facility] [id number] [place] [address] 98007- 8908 Apr, [facility] [id number] [place] [address] 46017- 0698 Apr, Chondromalacia, right knee M94.261 [facility] [address] [address]- 8997 Apr, Pain in unspecified hip M25.559 [facility] [id number] [place] [address] 23142- 1575 Mar, Social phobia, unspecified F40.10 and Pain in unspecified hip M25.559 [place] [id number] [place] [address] 20776- 0112 February, [place] [id number] [place] [address] 58579- 6201 February, Social phobia F40.10 [place] [id number] [place] [address] 83911- 1778 February, Morbid obesity E66.01 ; Chronic pain G89.29 ; Social phobia F40.10 ; Pelvic pain in male R10.2 ; HTN (hypertension) I10 ; Degenerative disc disease at L5-S1 level M51.36 ; BPH (benign prostatic hyperplasia) N40.0 and Pain in right knee M25.561 [place] [address] 29588- 7119 14 Jan, 2016 [place] [id number] [place] [address] 73648- 8713 Jan, [place] [address] 05940- 5737 Jan, [place] [id number] [place] [address] 45099- 3321 Dec, [place] [id number] [place] [address] 28819- 3578 Dec, [place] [id number] [place] [address] 16281- 6134 Dec, [facility] [address] 46412 -0427 Nov, Strep pharyngitis J02.0 ; Influenza A J10.1 and Cough R05 [place] [id number] [place] [address] 47432- 6506 Nov, [place] [id number] [place] [address] 04066- 8055 17 Nov, 2015 [facility] [address] 35938- 2885 Oct, HTN (hypertension) I10 ; Morbid obesity E66.01 ; Anxiety F41.9 ; Social phobia F40.10 ; Panic disorder F41.0 ; Degenerative disc disease at L5-S1 level M51.36 and Hypercholesterolemia E78.0 [facility] [id number] [place] [address] 83848- 9824 Oct, Panic disorder [episodic paroxysmal anxiety] without agoraphobia F41.0 and Social phobia, generalized F40.11 [facility] [id number] [place] [address] 92860- 1185 Oct, [facility] [id number] [place] [address] 24848- 9569 Sep, [facility] [id number] [place] [address] 50136- 8360 Sep, [facility] [id number] [place] [address] 57994- 6262 Sep, [facility] [id number] [place] [address] 42599- 7555 Sep, [facility] [id number] [place] [address] 00898- 9712 Aug, [facility] [id number] [place] [address] 44891- 8276 Aug, [facility] [id number] [place] [address] 39716- 0250 Aug, [facility] [id number] [place] [address] 48481- 6762 Aug, Social phobia F40.10 and Panic disorder F41.0 [facility] [id number] [place] [address] 17705- 0828 Aug, [facility] [address] [address]- 4478 Aug, [facility] [id number] [place] [address] 35403- 4998 Aug, [facility] [id number] [place] [address] 33933- 3997 Aug, [facility] [address] 92069- 7027 Jul, [facility] [id number] [place] [address] 29848- 8110 Jul, Morbid obesity E66.01 ; Chronic pain G89.29 ; Anxiety F41.9 ; Social phobia F40.10 ; Panic disorder F41.0 ; Pelvic pain in male R10.2 ; Insomnia G47.00 and HTN (hypertension) I10 [facility] [id number] [place] [address] 06820- 4861 Jul, [facility] [id number] [place] [address] 18543- 4125 Jul, [facility] [id number] [place] [address] 47126- 1964 16 Jun, 2015 Degenerative disc disease 722.6 [facility] [id number] [place] [address] 21578- 2416 Jun, Pain in joint, pelvic region and thigh 719.45 ; Morbid obesity 278.01 ; Essential hypertension, benign 401.1 and Constipation 564.00 [facility] [id number] [place] [address] 41466- 0009 May, [facility] [id number] [place] [address] 58671- 1316 May, [facility] [id number] [place] [address] 40478- 6984 May, [facility] [id number] [place] [address] 48240- 2478 May, [facility] [id number] [place] [address] 67928- 7042 May, [facility] [id number] [place] [address] 88874- 7983 May, [facility] [id number] [place] [address] 79192- 6151 May, Essential hypertension, benign 401.1 ; Anxiety state, unspecified 300.00 ; Panic disorder without agoraphobia 300.01 ; Social phobia 300.23 ; Morbid obesity 278.01 ; Other chronic pain 338.29 and Insomnia 780.52 [facility] [id number] [place] [address] 92054- 2224 May, Essential hypertension 401.9 [facility] [id number] [place] [address] 26289- 9951 May, Pain in joint, pelvic region and thigh 719.45 [facility] [id number] [place] [address] 88018- 5527 May, Essential hypertension, benign 401.1 [facility] [id number] [place] [address] 36213- 2001 May, Panic disorder without agoraphobia 300.01 and Social phobia 300.23 [facility] [id number] [place] [address] 63117- 8310 May, [facility] [id number] [place] [address] 62263- 0950 May, [facility] [id number] [place] [address] 82878- 1295 Apr, Chronic pain 338.29 [facility] [id number] [place] [address] 08529- 5659 Apr, [facility] [id number] [place] [address] 08776- 5641 Apr, [facility] [id number] [address]- 3634 Apr, [facility] [id number] [place] [address] 86072- 5906 Apr, [facility] [id number] [address]- 2727 Apr, [facility] [id number] [place] [address] 38988- 8106 Apr, [facility] [id number] [place] [address] 46529- 3560 Apr, [facility] [id number] [place] [address] 93189- 7383 Apr, Essential hypertension, benign 401.1 ; Morbid obesity 278.01 ; Anxiety state, unspecified 300.00 ; Panic disorder without agoraphobia 300.01 ; Social phobia 300.23 and Chronic pain 338.29 [facility] [id number] [address]- 5664 Mar, [facility] [id number] [place] [address] 63018- 2983 Mar, [facility] [id number] [place] [address] 79971- 2483 Mar, [facility] [id number] [address]- 4000 Mar, [facility] [id number] [address]- 9384 Mar, Social phobia 300.23 and Panic disorder without agoraphobia 300.01 [facility] [id number] [place] [address] 59943- 5717 Mar, [facility] [id number] [address]- 6470 February, [facility] [id number] [place] [address] 69006- 4896 February, Major depression, recurrent 296.30 and No condition on [place] II V71.09 [facility] [id number] [address]- 8457 February, [facility] [id number] 0249 February, Panic disorder without agoraphobia 300.01 ; Social phobia 300.23 and Morbid obesity 278.01 [facility] [id number] [address]- 0081 Jan, [facility] [id number] [place] [address] 17965- 6496 Jan, [facility] [id number] [place] [address] 77946- 6491 Dec, [facility] [id number] [place] [address] 29155- 8707 Dec, [facility] [id number] [address]- 4851 Dec, [facility] [id number] [address]- 1744 Dec, [facility] [id number] [address]- 9989 Dec, [facility] [id number] [address]- 4824 Dec, [facility] [id number] [address]- 4466 Dec, [facility] [id number] [address]- 1174 Dec, [facility] [id number] [address]- 8509 Dec, [facility] [id number] [address] Dec, [facility] [address] [facility] [id number] [address] Dec, [facility] [id number] [address] Dec, [facility] [address] [facility] [id number], [place] [address] Dec, [facility] [address] [facility] [id number] [address] Dec, [facility] [address] [facility] [id number] [address] Dec, [facility] [address] [facility] [id number] [address] Dec, IMMUNIZATIONS No Known Immunizations SOCIAL HISTORY Never Assessed REASON FOR VISIT Refill request PLAN OF CARE VITAL SIGNS MEDICATIONS Medication Instructions Dosage Frequency Start Date End Date Duration Status Lisinopril 40 mg oral once a day 1 tablet 24h Active RESULTS No Results PROCEDURES No Known [...]
--- OUTSIDE RECORDS SUMMARY | 2018-02-17 17:46 | XMS REPORT ---
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 Player Name Role Phone JOO MALDONADO Unavailable PROBLEMS Type Condition ICD9-CM Code [id number] Code Onset Dates Condition Status SNOMED Code Problem Mild episode of recurrent major depressive disorder F33.0 Active 052973668 Problem Primary insomnia F51.01 Active 3021227 Problem 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.22 Active 48850152 Problem Lymphedema I89.0 Active 064637286 Problem Chronic systolic congestive heart failure I50.22 Active 920212900 Problem Constipation, unspecified constipation type K59.00 Active 02109301 Problem Mixed hyperlipidemia E78.2 Active 631726327 Problem Stasis dermatitis of both legs I87.2 Active 89954812 Problem BMI 50.0-59.9, adult Z68.43 Active 301608519 Problem Abnormal liver function test R94.5 Active 954693437 Problem Cardiomegaly I51.7 Active 7020844 Problem Controlled substance agreement terminated Z91.14 Active 009075321 Problem HTN (hypertension) I10 Active 02837746 Problem Degenerative disc disease at L5-S1 level M51.36 Active 75048154 Problem Panic disorder F41.0 Active 514620760 Problem BPH (benign prostatic hyperplasia) N40.0 Active 941505395 Problem Chronic pain G89.29 Active 79465789 Problem Dysthymic disorder F34.1 Active 48579839 ALLERGIES No Information ENCOUNTERS Encounter Location Date Diagnosis [facility] [id number] [address] Jan, [facility] [address] [address] 4[address] Jan, [facility] [id number] [address] 0590 Jan, [facility] [id number] [place] [address] 98514- 2097 Jan, Abnormal liver function test R94.5 ; Dysthymic disorder F34.1 and Chronic pain G89.29 [facility] [id number] [place] [address] 59621- 0528 Dec, [facility] [address] 48369- 2471 Dec, HTN (hypertension) I10 ; BMI 45.0-49.9, adult Z68.42 ; Chronic pain G89.29 ; Primary insomnia F51.01 ; Mixed hyperlipidemia E78.2 ; Dysthymic disorder F34.1 ; 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.22 ; Stasis dermatitis of both legs I87.2 and Chronic systolic congestive heart failure I50.22 [facility] [id number] [place] [address] 57802- 2280 Dec, Chronic pain G89.29 [facility]ALK IN [facility] [id number] [place] [address] 99875 -7877 Dec, Lymphedema I89.0 and Chronic systolic congestive heart failure I50.22 [facility] [id number] [place] [address] 07721- 8287 Dec, [facility] [id number] [place] [address] 90989- 8957 Nov, 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.22 [facility] [id number] [place] [address] 67108- 8683 Nov, Chronic pain G89.29 and Dysthymic disorder F34.1 [facility] [id number] [place] [address] 66870- 1843 Nov, [facility] [id number] [place] [address] 92566- 5071 Oct, HTN (hypertension) I10 ; Chronic pain G89.29 ; BMI 45.0-49.9 , adult Z68.42 ; Primary insomnia F51.01 ; Mixed hyperlipidemia E78.2 ; Dysthymic disorder F34.1 ; 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.22 ; Chronic congestive heart failure, unspecified congestive heart failure type I50.9 ; Acute non-recurrent maxillary sinusitis J01.00 and BMI 50.0-59.9, adult Z68.43 [facility] [address] 19060- 2952 Oct, HTN (hypertension) I10 and Dysthymic disorder F34.1 [facility] [address] 48619- 5400 Oct, [facility] [address] 49738- 0831 Oct, HTN (hypertension) I10 [facility] [address] 26145- 7867 Oct, Chronic pain G89.29 [facility] [id number] [place] [address] 95561- 7040 Sep, [facility] [address] 64623- 4719 Sep, HTN (hypertension) I10 ; Chronic pain G89.29 ; BMI 45.0-49.9 , adult Z68.42 ; Primary insomnia F51.01 ; Mixed hyperlipidemia E78.2 ; Dysthymic disorder F34.1 and 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.22 [facility] [id number] [place] [address] 79806- 8661 Sep, Chronic pain G89.29 [facility] [address] 74603- 3046 Sep, Acute on chronic heart failure, unspecified heart failure type I50.9 [facility] [address] 58304- 6937 Sep, Acute on chronic heart failure, unspecified heart failure type I50.9 ; 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.22 and BMI 50.0-59.9, adult Z68.43 [facility] [id number] [place] [address] 52126- 6984 Sep, Acute on chronic heart failure, unspecified heart failure type I50.9 ; HTN (hypertension) I10 and 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.22 [facility] [id number] [place] [address] 85563- 1720 Aug, Acute on chronic heart failure, unspecified heart failure type I50.9 ; HTN (hypertension) I10 ; 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.22 ; Cellulitis of right lower extremity L03.115 and BMI 50.0-59.9, adult Z68.43 [facility] IN [facility] [id number] [place] [address] 58770 -8862 Aug, Acute upper respiratory infection, unspecified J06.9 ; Other viral agents as the cause of diseases classified elsewhere B97.89 ; Constipation, unspecified constipation type K59.00 ; BMI 50.0-59.9, adult Z68.43 and BMI 60.0-69.9, adult Z68.44 [facility] [id number] [place] [address] 06798- 5816 Aug, Chronic pain G89.29 [facility] [id number] [place] [address] 92137- 7705 Jul, Chronic pain G89.29 [facility] [id number] [place] [address] 67820- 3437 Jul, Chronic pain G89.29 [facility] [id number] [place] [address] 66682- 3698 Jun, Chronic pain G89.29 [facility] [id number] [place] [address] 43277- 8379 Jun, [facility] [id number] [place] [address] 91012- 6983 Jun, Chronic pain G89.29 [facility] [id number] [place] [address] 58209- 5607 May, Chronic pain G89.29 and 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.22 [facility] [id number] [place] [address] 32827- 6916 16 May, 2017 [facility] [id number] [place] [address] 37808- 7634 May, Chronic pain G89.29 and Anxiety F41.9 [facility] [id number] [place] [address] 82338- 2189 May, 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.22 ; Social phobia F40.10 ; Morbid obesity E66.01 ; Chronic pain G89.29 ; HTN (hypertension) I10 ; Degenerative disc disease at L5-S1 level M51.36 ; BPH (benign prostatic hyperplasia) N40.0 ; Pain in right knee M25.561 and 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 [facility] [id number] [place] [address] 02597- 4000 Apr, Anxiety F41.9 [facility] [id number] [place] [address] 39243- 3849 Apr, [facility] [id number] [place] [address] 75734- 6537 Mar, [facility] [id number] [place] [address] 39007- 4217 Mar, Edema, unspecified type R60.9 and Anxiety F41.9 [facility] [id number] [place] [address] 80338- 1381 Mar, Social phobia F40.10 ; Mixed obsessional thoughts and acts F42.2 and Mild episode of recurrent major depressive disorder F33.0 [address] [id number] [place] [address] 72925- 1381 Mar, Degenerative disc disease at L5-S1 level M51.36 [facility] [id number] [place] [address] 24537- 9168 Mar, [facility] [id number] [place] [address] 51670- 0309 Mar, [facility] [id number] [place] [address] 55729- 7042 Mar, [facility] [address] 35977- 2490 February, Morbid obesity E66.01 ; Anxiety F41.9 ; Degenerative disc disease at L5-S1 level M51.36 ; BPH (benign prostatic hyperplasia) N40.0 ; Social phobia F40.10 ; HTN (hypertension) I10 ; Edema, unspecified type R60.9 and Screening cholesterol level Z13.220 [facility] [address] 63588- 8610 February, Social phobia, generalized F40.11 [facility] [id number] [place] [address] 32045- 9171 February, Chronic pain G89.29 [facility] [id number] [place] [address] 32665- 3729 February, [id number] [place] [address] 95161- 0830 Jan, Chronic pain G89.29 [facility] [id number] [place] [address] 94865- 2397 Jan, Panic disorder [episodic paroxysmal anxiety] without agoraphobia F41.0 [address] [id number] [place] [address] 23600- 3630 Dec, Morbid obesity E66.01 ; Anxiety F41.9 ; Chronic pain G89.29 ; HTN (hypertension) I10 ; BPH (benign prostatic hyperplasia) N40.0 ; Generalized edema R60.1 and Cough R05 [facility] [id number] [address] 2542 14 Nov, 2016 Chronic pain G89.29 [facility] [address] [facility] [id number] [place] [address], [place] [address] 2546 03 Nov, 2016 Social phobia, generalized F40.11 and Mild episode of recurrent major depressive disorder F33.0 [facility] [address] [facility] [id number] [address] 2546 17 Oct, 2016 Chronic pain G89.29 [facility] [address] [facility] [id number] [place] [address] 2546 16 Oct, 2016 Social phobia, generalized F40.11 [facility] [address] [facility] [id number] [place] [address] 2546 Sep, [facility] [address], [place] [address]- 1676 Sep, [facility] [id number] [place] [address] 87445- 9798 Sep, [facility] [id number] [place] [address] 2546 Sep, [facility] [address] [address] 2546 Sep, [facility] [address], [place] [address] 2546 Sep, Social phobia, generalized F40.11 and Mild episode of recurrent major depressive disorder F33.0 [facility] [address] [facility] [id number] [address] 2546 Sep, [facility] [id number] [place] [address]- 7406 Aug, [facility] [id number] [address]- 7076 Aug, [facility] [address], [place] [address]- 1403 Aug, Bronchitis J40 [facility] [address], [place] [address]- 9687 Aug, [facility] [id number] [place] [address] 47475- 6722 Aug, Osteoarthritis of knee, unspecified M17.9 [facility] [id number] [place] [address] 67304- 5381 09 Aug, 2016 Morbid obesity E66.01 ; Chronic pain G89.29 ; Anxiety F41.9 ; Social phobia F40.10 ; HTN (hypertension) I10 ; Social phobia, generalized F40.11 ; Acute upper respiratory infection, unspecified J06.9 and Other viral agents as the cause of diseases classified elsewhere B97.89 [facility] [id number] [place] [address] 01750- 4762 Aug, Social phobia, generalized F40.11 and Dysthymic disorder F34.1 [facility] [id number] [place] [address] 68453- 5495 Jul, [facility] [id number] [place] [address] 58296- 3104 Jun, [facility] [id number] [place] [address] 16653- 9136 May, [facility] [address], [place] [address]- 8292 May, [facility] [id number] [place] [address] 91328- 9323 May, [facility] [id number] [place] [address] 42892- 8214 May, [facility] [id number] [place] [address] 32368- 2149 May, [facility] [address], [place] [address]- 9305 May, [facility] [id number], [place] [address]- 4285 May, [facility] [id number] [place] [address] 19154- 9153 Apr, [facility] [id number] [place] [address] 25264- 6002 Apr, Chondromalacia, right knee M94.261 [facility] [id number] [place] [address] 54326- 2768 Apr, Pain in unspecified hip M25.559 [facility] [id number] [place] [address] 19910- 6635 Mar, Social phobia, unspecified F40.10 and Pain in unspecified hip M25.559 [facility] [id number] [place] [address] 45314- 0142 February, [facility] [id number] [place] [address] 32140- 6508 February, Social phobia F40.10 [facility] [id number] [place] [address] 66293- 5218 February, Morbid obesity E66.01 ; Chronic pain G89.29 ; Social phobia F40.10 ; Pelvic pain in male R10.2 ; HTN (hypertension) I10 ; Degenerative disc disease at L5-S1 level M51.36 ; BPH (benign prostatic hyperplasia) N40.0 and Pain in right knee M25.561 [facility] [address], [place] [address]- 2287 Jan, [facility] [address], [place] [address]- 1569 Jan, [facility] [id number] [place] [address] 04864- 3687 Jan, [facility] [address], [place] [address]- 6153 Dec, [facility] [id number] [place] [address] 66639- 4801 Dec, [facility] [address] 21778- 8704 Dec, [facility] [address] 70683 -4323 29 Nov, 2015 Strep pharyngitis J02.0 ; Influenza A J10.1 and Cough R05 [facility] [address] 59694- 0284 Nov, [facility] [address] 78731- 4606 Nov, [facility] [address] 42222- 0321 Oct, HTN (hypertension) I10 ; Morbid obesity E66.01 ; Anxiety F41.9 ; Social phobia F40.10 ; Panic disorder F41.0 ; Degenerative disc disease at L5-S1 level M51.36 and Hypercholesterolemia E78.0 [facility] [id number] [place] [address] 76661- 7988 Oct, Panic disorder [episodic paroxysmal anxiety] without agoraphobia F41.0 and Social phobia, generalized F40.11 [facility] [id number] [place] [address] 64822- 5490 Oct, [facility] [id number] [place] [address] 40728- 8725 Sep, [facility] [id number] [place] [address] 47600- 4480 Sep, [facility] [address] 63900- 9471 Sep, [facility] [address] 14365- 0162 Sep, [facility] [address] 00553- 6272 Aug, [facility] [id number] [place] [address] 01489- 1462 Aug, [facility] [id number] [place] [address] 22309- 9780 Aug, [facility] [id number] [place] [address] 68290- 4806 Aug, Social phobia F40.10 and Panic disorder F41.0 [facility] [id number] [place] [address] 97470- 5546 Aug, [facility] [id number] [place] [address] 68110- 2408 Aug, [facility] [id number] [place] [address] 74152- 7948 Aug, [facility] [id number] [place] [address] 09072- 4625 Aug, [facility] [id number] [place] [address] 03465- 8532 Jul, [facility] [id number] [place] [address] 18977- 4485 Jul, Morbid obesity E66.01 ; Chronic pain G89.29 ; Anxiety F41.9 ; Social phobia F40.10 ; Panic disorder F41.0 ; Pelvic pain in male R10.2 ; Insomnia G47.00 and HTN (hypertension) I10 [facility] [id number] [place] [address] 97383- 3319 Jul, [facility] [id number] [place] [address] 77725- 1600 Jul, [facility] [id number] [place] [address] 51870- 8249 16 Jun, 2015 Degenerative disc disease 722.6 [facility] [id number] [place] [address] 25213- 6368 Jun, Pain in joint, pelvic region and thigh 719.45 ; Morbid obesity 278.01 ; Essential hypertension, benign 401.1 and Constipation 564.00 [facility] [id number] [place] [address] 20364- 6152 May, [facility] [id number] [place] [address] 51268- 9560 May, [facility] [id number] [place] [address] 60328- 9015 May, [facility] [id number] [place] [address] 21076- 6689 May, [facility] [id number] [place] [address] 83017- 7804 May, [facility] [id number] [place] [address] 02310- 8003 May, [facility] [id number] [place] [address] 93852- 5815 May, Essential hypertension, benign 401.1 ; Anxiety state, unspecified 300.00 ; Panic disorder without agoraphobia 300.01 ; Social phobia 300.23 ; Morbid obesity 278.01 ; Other chronic pain 338.29 and Insomnia 780.52 [facility] [id number] [place] [address] 86669- 8692 May, Essential hypertension 401.9 [facility] [id number] [place] [address] 85645- 2439 May, Pain in joint, pelvic region and thigh 719.45 [facility] [id number] [place] [address] 14076- 6908 May, Essential hypertension, benign 401.1 [facility] [id number] [place] [address] 30750- 1745 May, Panic disorder without agoraphobia 300.01 and Social phobia 300.23 [facility] [id number] [place] [address] 96795- 1327 May, [facility] [address] [address]- 4938 May, [facility] [address], [place] [address]- 7391 Apr, Chronic pain 338.29 [facility] [address] [address]- 0505 Apr, [facility] [address], [place] [address]- 0569 Apr, [facility] [address], [place] [address]- 6240 Apr, [facility] [address], [place] [address]- 7666 Apr, [facility] [address], [place] [address]- 3730 Apr, [facility] [address], [place] [address]- 0755 Apr, [facility] [address], [place] [address]- 3532 Apr, [facility] [address], [place] [address]- 6832 Apr, Essential hypertension, benign 401.1 ; Morbid obesity 278.01 ; Anxiety state, unspecified 300.00 ; Panic disorder without agoraphobia 300.01 ; Social phobia 300.23 and Chronic pain 338.29 [facility] [address], [place] [address]- 2838 Mar, [facility] [address] [address]- 0208 Mar, [facility] [address], [place] [address]- 4238 Mar, [facility] [id number] [place] [address] 08770- 9429 Mar, [facility] [address], [place] [address]- 1288 Mar, Social phobia 300.23 and Panic disorder without agoraphobia 300.01 [facility] [address] [address] Mar, [facility] [id number] [place] [address]- 2018 February, [facility] [id number] [place] [address] February, Major depression, recurrent 296.30 and No condition on [place] II V71.09 [facility] [id number] [place] [address] February, [facility] [id number] [place] [address]- 38[address] February, Panic disorder without agoraphobia 300.01 ; Social phobia 300.23 and Morbid obesity 278.01 [facility] [id number] [address] Jan, [facility] [id number] [place] [address]- [address] Jan, [facility] [id number] [address] Dec, [facility] [id number] [address] Dec, [facility] [id number] [address] Dec, [facility] [id number] [address] Dec, [facility] [id number] [place] [address] Dec, [facility] [id number] [address] Dec, [facility] [id number] [address] Dec, [facility] [id number] [address] Dec, [facility] [id number] [address] Dec, [facility] [id number] [address] Dec, [facility] [id number] [address] Dec, [facility] [id number], [place] [address] Dec, [facility] [id number] [address] Dec, [facility] [id number] [address] Dec, [facility] [id number], [place] [address] Dec, [facility] [id number], [place] [address] Dec, IMMUNIZATIONS No Known Immunizations SOCIAL HISTORY Never Assessed REASON FOR VISIT 16 day supply of Hydrocodone- 07/06 PLAN OF CARE VITAL SIGNS MEDICATIONS Medication Instructions Dosage Frequency Start Date End Date Duration Status Hydrocodone-Acetaminophen 10-325 MG Orally 4 times a day 1 tablet 6h 12 Jun 16 days Active RESULTS No Results PROCEDURES No [...]
--- OUTSIDE RECORDS SUMMARY | 2018-02-17 17:46 | XMS REPORT ---
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 Name Role Phone LINDA Gama Unavailable PROBLEMS Type Condition ICD9-CM Code NCY59-FM Code Onset Dates Condition Status SNOMED Code Problem Mild episode of recurrent major depressive disorder F33.0 Active 773712431 Problem Primary insomnia F51.01 Active 5172863 Problem 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.22 Active 92565168 Problem Lymphedema I89.0 Active 359287548 Problem Chronic systolic congestive heart failure I50.22 Active 293571567 Problem Constipation, unspecified constipation type K59.00 Active 31126482 Problem Mixed hyperlipidemia E78.2 Active 032444760 Problem Stasis dermatitis of both legs I87.2 Active 39944102 Problem BMI 50.0-59.9, adult Z68.43 Active 745004798 Problem Abnormal liver function test R94.5 Active 461999984 Problem Cardiomegaly I51.7 Active 3092758 Problem Controlled substance agreement terminated Z91.14 Active 364881188 Problem HTN (hypertension) I10 Active 94351080 Problem Degenerative disc disease at L5-S1 level M51.36 Active 77285988 Problem Panic disorder F41.0 Active 553530411 Problem BPH (benign prostatic hyperplasia) N40.0 Active 938837148 Problem Chronic pain G89.29 Active 27179172 Problem Dysthymic disorder F34.1 Active 53218203 ALLERGIES No Information ENCOUNTERS Encounter Location Date Diagnosis [facility] [id number] [place] [address] 22142- 3399 Dec, [facility] [id number] [place] [address] 24383- 5511 Dec, HTN (hypertension) I10 ; BMI 45.0-49.9, adult Z68.42 ; Chronic pain G89.29 ; Primary insomnia F51.01 ; Mixed hyperlipidemia E78.2 ; Dysthymic disorder F34.1 ; 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.22 ; Stasis dermatitis of both legs I87.2 and Chronic systolic congestive heart failure I50.22 [facility] [id number] [place] [address] 64569- 0320 12 Dec, 2017 Chronic pain G89.29 [facility] [id number] [place] [address] 67665 -9100 04 Dec, 2017 Lymphedema I89.0 and Chronic systolic congestive heart failure I50.22 [facility] [address] 11620- 5714 Dec, [facility] [address] 06685- 8604 Nov, 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.22 [facility] [address] 31335- 6413 Nov, Chronic pain G89.29 and Dysthymic disorder F34.1 [facility] [address] 95560- 3286 Nov, [facility] [id number] [place] [address] 85530- 8512 Oct, HTN (hypertension) I10 ; Chronic pain G89.29 ; BMI 45.0-49.9 , adult Z68.42 ; Primary insomnia F51.01 ; Mixed hyperlipidemia E78.2 ; Dysthymic disorder F34.1 ; 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.22 ; Chronic congestive heart failure, unspecified congestive heart failure type I50.9 ; Acute non-recurrent maxillary sinusitis J01.00 and BMI 50.0-59.9, adult Z68.43 [facility] [id number] [place] [address] 09767- 8943 Oct, HTN (hypertension) I10 and Dysthymic disorder F34.1 [facility] [address] [address] 8883 Oct, [facility] [id number] [place] [address] 49544- 9817 Oct, HTN (hypertension) I10 [facility] [address] [address] 8521 Oct, Chronic pain G89.29 [facility] [id number] [place] [address] 66913- 2094 Sep, [facility] [id number] [place] [address] 18993- 6115 Sep, HTN (hypertension) I10 ; Chronic pain G89.29 ; BMI 45.0-49.9 , adult Z68.42 ; Primary insomnia F51.01 ; Mixed hyperlipidemia E78.2 ; Dysthymic disorder F34.1 and 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.22 [facility] [id number] [place] [address] 94719- 2785 Sep, Chronic pain G89.29 [facility] [id number] [place] [address] 71676- 9351 Sep, Acute on chronic heart failure, unspecified heart failure type I50.9 [facility] [address] [address] 0410 Sep, Acute on chronic heart failure, unspecified heart failure type I50.9 ; 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.22 and BMI 50.0-59.9, adult Z68.43 [facility] [address] [address] 3498 Sep, Acute on chronic heart failure, unspecified heart failure type I50.9 ; HTN (hypertension) I10 and 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.22 [facility] [address] [address]- 2836 Aug, Acute on chronic heart failure, unspecified heart failure type I50.9 ; HTN (hypertension) I10 ; 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.22 ; Cellulitis of right lower extremity L03.115 and BMI 50.0-59.9, adult Z68.43 [facility] [id number] [place] [address] 41262 -8408 Aug, Acute upper respiratory infection, unspecified J06.9 ; Other viral agents as the cause of diseases classified elsewhere B97.89 ; Constipation, unspecified constipation type K59.00 ; BMI 50.0-59.9, adult Z68.43 and BMI 60.0-69.9, adult Z68.44 [facility] [address] 69218- 1103 Aug, Chronic pain G89.29 [facility] [address] 42689- 6099 Jul, Chronic pain G89.29 [facility] [address] 32614- 7734 Jul, Chronic pain G89.29 [facility] [address] 33680- 7161 Jun, Chronic pain G89.29 [facility] [id number] [place] [address] 41187- 1976 Jun, [facility] [address] 48503- 4902 06 Jun, 2017 Chronic pain G89.29 [facility] [address] 87351- 1463 May, Chronic pain G89.29 and 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.22 [facility] [address] 04959- 3758 16 May, 2017 [facility] [address] 44393- 7093 May, Chronic pain G89.29 and Anxiety F41.9 [facility] [id number] [place] [address] 27852- 3340 May, 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.22 ; Social phobia F40.10 ; Morbid obesity E66.01 ; Chronic pain G89.29 ; HTN (hypertension) I10 ; Degenerative disc disease at L5-S1 level M51.36 ; BPH (benign prostatic hyperplasia) N40.0 ; Pain in right knee M25.561 and 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 [facility] [id number] [place] [address] 86155- 3327 Apr, Anxiety F41.9 [facility] [address] 92391- 2642 Apr, [facility] [id number] [place] [address] 90193- 2862 Mar, [facility] [id number] [place] [address] 74863- 3620 Mar, Edema, unspecified type R60.9 and Anxiety F41.9 [facility] [id number] [place] [address] 35420- 1377 Mar, Social phobia F40.10 ; Mixed obsessional thoughts and acts F42.2 and Mild episode of recurrent major depressive disorder F33.0 [facility] [id number] [place] [address] 35111- 7869 Mar, Degenerative disc disease at L5-S1 level M51.36 [facility] [id number] [place] [address] 38555- 2886 Mar, [facility] [id number] [place] [address] 39181- 5746 Mar, [facility] [id number] [place] [address] 06655- 5390 Mar, [facility] [id number] [place] [address] 91277- 7311 February, Morbid obesity E66.01 ; Anxiety F41.9 ; Degenerative disc disease at L5-S1 level M51.36 ; BPH (benign prostatic hyperplasia) N40.0 ; Social phobia F40.10 ; HTN (hypertension) I10 ; Edema, unspecified type R60.9 and Screening cholesterol level Z13.220 [facility] [id number] [place] [address] 14581- 5164 February, Social phobia, generalized F40.11 [facility] [id number] [place] [address] 79455- 3575 February, Chronic pain G89.[address] 98157- 0485 February, [facility] [id number] [place] [address] 36646- 0879 Jan, Chronic pain G89.29 [place] [id number] [place] [address] 78320- 1251 Jan, Panic disorder [episodic paroxysmal anxiety] without agoraphobia F41.0 [place] [id number] [place] [address] 11755- 8439 Dec, Morbid obesity E66.01 ; Anxiety F41.9 ; Chronic pain G89.29 ; HTN (hypertension) I10 ; BPH (benign prostatic hyperplasia) N40.0 ; Generalized edema R60.1 and Cough R05 [place] [id number] [place] [address] 82588- 9492 14 Nov, 2016 Chronic pain G89.29 [facility] [id number] [place] [address] 49112- 2894 Nov, Social phobia, generalized F40.11 and Mild episode of recurrent major depressive disorder F33.0 [facility] [id number] [place] [address] 23190- 9680 Oct, Chronic pain G89.29 [facility] [id number] [place] [address] 16992- 1325 Oct, Social phobia, generalized F40.11 [facility] [id number] [place] [address] 66084- 0401 Sep, [facility] [id number] [place] [address] 19820- 9648 Sep, [facility] [id number] [place] [address] 08619- 9749 Sep, [facility] [id number] [place] [address] 36097- 0194 Sep, [facility] [id number] [place] [address] 29315- 3666 Sep, [facility] [id number] [place] [address] 33546- 2018 Sep, Social phobia, generalized F40.11 and Mild episode of recurrent major depressive disorder F33.0 [facility] [id number] [place] [address] 93854- 9768 Sep, [facility] [id number] [place] [address] 19854- 6527 Aug, [facility] [id number] [place] [address] 12881- 9099 Aug, [facility] [id number] [place] [address] 35150- 3334 Aug, Bronchitis J40 [facility] [id number] [place] [address] 59666- 7489 15 Aug, 2016 [facility] [id number] [place] [address] 88476- 5328 10 Aug, 2016 Osteoarthritis of knee, unspecified M17.9 [facility] [id number] [place] [address] 82111- 8923 09 Aug, 2016 Morbid obesity E66.01 ; Chronic pain G89.29 ; Anxiety F41.9 ; Social phobia F40.10 ; HTN (hypertension) I10 ; Social phobia, generalized F40.11 ; Acute upper respiratory infection, unspecified J06.9 and Other viral agents as the cause of diseases classified elsewhere B97.89 [facility] [id number] [place] [address] 69989- 9785 Aug, Social phobia, generalized F40.11 and Dysthymic disorder F34.1 [facility] [id number] [place] [address] 51718- 9105 Jul, [facility] [id number] [place] [address] 24526- 3916 Jun, [facility] [id number] [place] [address] 11969- 6206 May, [facility] [id number] [place] [address] 96197- 4683 May, [facility] [id number] [place] [address] 79860- 2370 May, [facility] [id number] [place] [address] 47054- 5754 May, [facility] [id number] [place] [address] 48461- 2165 May, [facility] [id number] [place] [address] 33187- 9221 May, [facility] [id number] [place] [address] 45339- 1689 May, [facility] [id number] [place] [address] 56077- 1977 Apr, [facility] [id number] [place] [address] 62875- 3829 Apr, Chondromalacia, right knee M94.261 [facility] [address], [place] [address]- 3885 Apr, Pain in unspecified hip M25.559 [facility] [id number] [place] [address] 18578- 1299 Mar, Social phobia, unspecified F40.10 and Pain in unspecified hip M25.559 [facility] [id number] [place] [address] 54318- 0566 February, [facility] [place] [id number] [place] [address] 08540- 4522 February, Social phobia F40.10 [facility] [place] [id number] [place] [address] 84666- 1012 February, Morbid obesity E66.01 ; Chronic pain G89.29 ; Social phobia F40.10 ; Pelvic pain in male R10.2 ; HTN (hypertension) I10 ; Degenerative disc disease at L5-S1 level M51.36 ; BPH (benign prostatic hyperplasia) N40.0 and Pain in right knee M25.561 [place] [address] 38502- 2869 14 Jan, 2016 [facility] [place] [id number] [place] [address] 80841- 7929 Jan, [place] [address] 10691- 2654 Jan, [facility] [id number] [place] [address] 97570- 7940 Dec, [facility] [place] [id number] [place] [address] 74020- 9888 Dec, [facility] [place] [id number] [place] [address] 27275- 8796 Dec, [facility] [address] 44002 -1709 Nov, Strep pharyngitis J02.0 ; Influenza A J10.1 and Cough R05 [place] [id number] [place] [address] 16621- 1190 Nov, [facility] [id number] [place] [address] 03789- 2813 17 Nov, 2015 [facility] [address] 74699- 4101 Oct, HTN (hypertension) I10 ; Morbid obesity E66.01 ; Anxiety F41.9 ; Social phobia F40.10 ; Panic disorder F41.0 ; Degenerative disc disease at L5-S1 level M51.36 and Hypercholesterolemia E78.0 [facility] [id number] [place] [address] 69899- 2760 Oct, Panic disorder [episodic paroxysmal anxiety] without agoraphobia F41.0 and Social phobia, generalized F40.11 [facility] [id number] [place] [address] 10928- 5250 Oct, [facility] [id number] [place] [address] 48118- 9955 Sep, [facility] [id number] [place] [address] 68943- 4334 Sep, [facility] [id number] [place] [address] 95229- 5056 Sep, [facility] [id number] [place] [address] 33661- 5110 Sep, [facility] [id number] [place] [address] 88041- 8168 Aug, [facility] [id number] [place] [address] 31845- 5255 Aug, [facility] [id number] [place] [address] 14714- 6836 Aug, [facility] [id number] [place] [address] 30390- 3757 Aug, Social phobia F40.10 and Panic disorder F41.0 [facility] [id number] [place] [address] 85738- 1445 Aug, [facility] [address] [address]- 3931 Aug, [facility] [id number] [place] [address] 31086- 4399 Aug, [facility] [id number] [place] [address] 47170- 4810 Aug, [facility] [address] 29964- 5501 Jul, [facility] [id number] [place] [address] 33023- 7290 Jul, Morbid obesity E66.01 ; Chronic pain G89.29 ; Anxiety F41.9 ; Social phobia F40.10 ; Panic disorder F41.0 ; Pelvic pain in male R10.2 ; Insomnia G47.00 and HTN (hypertension) I10 [facility] [id number] [place] [address] 85656- 0072 Jul, [facility] [id number] [place] [address] 10788- 9446 Jul, [facility] [id number] [place] [address] 36228- 8347 16 Jun, 2015 Degenerative disc disease 722.6 [facility] [id number] [place] [address] 19511- 6147 Jun, Pain in joint, pelvic region and thigh 719.45 ; Morbid obesity 278.01 ; Essential hypertension, benign 401.1 and Constipation 564.00 [facility] [id number] [place] [address] 73775- 0607 May, [facility] [id number] [place] [address] 24161- 0112 May, [facility] [id number] [place] [address] 96793- 9462 May, [facility] [id number] [place] [address] 66812- 4177 May, [facility] [id number] [place] [address] 22698- 8598 May, [facility] [id number] [place] [address] 39581- 1117 May, [facility] [id number] [place] [address] 74400- 2460 May, Essential hypertension, benign 401.1 ; Anxiety state, unspecified 300.00 ; Panic disorder without agoraphobia 300.01 ; Social phobia 300.23 ; Morbid obesity 278.01 ; Other chronic pain 338.29 and Insomnia 780.52 [facility] [id number] [place] [address] 46034- 5587 May, Essential hypertension 401.9 [facility] [id number] [place] [address] 78758- 2723 May, Pain in joint, pelvic region and thigh 719.45 [facility] [id number] [place] [address] 38548- 5647 May, Essential hypertension, benign 401.1 [facility] [id number] [place] [address] 59827- 9002 May, Panic disorder without agoraphobia 300.01 and Social phobia 300.23 [facility] [id number] [place] [address] 67353- 6953 May, [facility] [id number] [place] [address] 96587- 6445 May, [facility] [id number] [place] [address] 77738- 1381 Apr, Chronic pain 338.29 [facility] [id number] [place] [address] 44097- 4581 Apr, [facility] [id number] [place] [address] 77248- 1136 Apr, [facility] [address] [address]- 0239 Apr, [facility] [id number] [place] [address] 19344- 4743 Apr, [facility] [id number] [address]- 1159 Apr, [facility] [id number] [place] [address] 13864- 4874 Apr, [facility] [id number] [place] [address] 96852- 7443 Apr, [facility] [id number] [place] [address] 89495- 9347 Apr, Essential hypertension, benign 401.1 ; Morbid obesity 278.01 ; Anxiety state, unspecified 300.00 ; Panic disorder without agoraphobia 300.01 ; Social phobia 300.23 and Chronic pain 338.29 [facility] [id number] [address]- 4720 Mar, [facility] [id number] [place] [address] 88390- 1220 Mar, [facility] [id number] [place] [address] 97834- 0636 Mar, [facility] [address] [address]- 4133 Mar, [facility] [id number] [address]- 5522 Mar, Social phobia 300.23 and Panic disorder without agoraphobia 300.01 [facility] [id number] [place] [address] 77807- 4190 Mar, [facility] [address] [address]- 2043 February, [facility] [id number] [place] [address] 42403- 5203 February, Major depression, recurrent 296.30 and No condition on [place] II V71.09 [facility] [address] [address] 1953 February, [facility] [id number] 5418 February, Panic disorder without agoraphobia 300.01 ; Social phobia 300.23 and Morbid obesity 278.01 [facility] [address] [address]- 1998 Jan, [facility] [id number] [place] [address] Jan, [facility] [id number] [place] [address] Dec, [facility] [id number] [place] [address] Dec, [facility] [id number] [address] Dec, [facility] [id number] [address] Dec, [facility] [id number] [address] Dec, [facility] [id number], [place] [address] Dec, [facility] [id number] [address] Dec, [facility] [id number] [address] Dec, [facility] [id number], [place] [address] Dec, [facility] [id number], [place] [address] Dec, [facility] [address] [facility] [id number] [address] Dec, [facility] [address] [facility] [id number] [address] Dec, [facility] [address] [facility] [id number], [place] [address] Dec, [facility] [address] [facility] [id number] [address] Dec, [facility] [address] [facility] [id number], [place] [address] Dec, [facility] [address] [facility] [id number] [address] Dec, IMMUNIZATIONS No Known Immunizations SOCIAL HISTORY Never Assessed REASON FOR VISIT Controlled Med Refill PLAN OF CARE VITAL SIGNS MEDICATIONS Medication Instructions Dosage Frequency Start Date End Date Duration Status Xanax 0.25 MG Orally Twice a day 1 tablet 12h February, 26 days Active Hydrocodone-Acetaminophen 10-325 MG Orally 4 times a day 1 tablet 6h Apr 28 days Active RESULTS No Results PROCEDURES [...]
--- OUTSIDE RECORDS SUMMARY | 2018-02-17 17:47 | XMS REPORT ---
Author Author LINDA Gama Organization [facility] Address [address] [place] [address] Care Team Providers Care Non Cdl Driver Name Role Phone LINDA Gama Unavailable PROBLEMS Type Condition ICD9-CM Code [id number] Code Onset Dates Condition Status SNOMED Code Problem Mild episode of recurrent major depressive disorder F33.0 Active 168552423 Problem Primary insomnia F51.01 Active 4695601 Problem 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.22 Active 38738189 Problem Lymphedema I89.0 Active 650502409 Problem Chronic systolic congestive heart failure I50.22 Active 169404726 Problem Constipation, unspecified constipation type K59.00 Active 70011807 Problem Mixed hyperlipidemia E78.2 Active 670508183 Problem Stasis dermatitis of both legs I87.2 Active 10432496 Problem BMI 50.0-59.9, adult Z68.43 Active 026865879 Problem Abnormal liver function test R94.5 Active 960966604 Problem Cardiomegaly I51.7 Active 5993929 Problem Controlled substance agreement terminated Z91.14 Active 761594662 Problem HTN (hypertension) I10 Active 10609448 Problem Degenerative disc disease at L5-S1 level M51.36 Active 41514041 Problem Panic disorder F41.0 Active 984934750 Problem BPH (benign prostatic hyperplasia) N40.0 Active 110569502 Problem Chronic pain G89.29 Active 19640843 Problem Dysthymic disorder F34.1 Active 36975689 ALLERGIES No Information ENCOUNTERS Encounter Location Date Diagnosis [facility] [id number] [place] [address] 83477- 8829 Dec, [facility] [id number] [place] [address] 83271- 3501 Dec, HTN (hypertension) I10 ; BMI 45.0-49.9, adult Z68.42 ; Chronic pain G89.29 ; Primary insomnia F51.01 ; Mixed hyperlipidemia E78.2 ; Dysthymic disorder F34.1 ; 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.22 ; Stasis dermatitis of both legs I87.2 and Chronic systolic congestive heart failure I50.22 [facility] [id number] [place] [address] 59896- 1254 12 Dec, 2017 Chronic pain G89.29 [facility] [id number] [place] [address] 71795 -8082 04 Dec, 2017 Lymphedema I89.0 and Chronic systolic congestive heart failure I50.22 [place] [address] 45286- 0800 Dec, [facility] [address] 84827- 7767 Nov, 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.22 [place] [address] 19292- 2367 Nov, Chronic pain G89.29 and Dysthymic disorder F34.1 [place] [address] 22247- 0244 Nov, [facility] [id number] [place] [address] 54917- 6972 Oct, HTN (hypertension) I10 ; Chronic pain G89.29 ; BMI 45.0-49.9 , adult Z68.42 ; Primary insomnia F51.01 ; Mixed hyperlipidemia E78.2 ; Dysthymic disorder F34.1 ; 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.22 ; Chronic congestive heart failure, unspecified congestive heart failure type I50.9 ; Acute non-recurrent maxillary sinusitis J01.00 and BMI 50.0-59.9, adult Z68.43 [facility] [id number] [place] [address] 25595- 6598 Oct, HTN (hypertension) I10 and Dysthymic disorder F34.1 [facility] [address] [address] 3491 Oct, [facility] [id number] [place] [address] 65914- 6632 Oct, HTN (hypertension) I10 [place] [address] [address]- 0033 Oct, Chronic pain G89.29 [facility] [place] [id number] [place] [address] 37857- 3035 Sep, [facility] [address] [place] [address] 34369- 3986 Sep, HTN (hypertension) I10 ; Chronic pain G89.29 ; BMI 45.0-49.9 , adult Z68.42 ; Primary insomnia F51.01 ; Mixed hyperlipidemia E78.2 ; Dysthymic disorder F34.1 and 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.22 [place] [address] [place] [address] 66789- 2542 Sep, Chronic pain G89.29 [facility] [address] [place] [address] 29497- 0041 Sep, Acute on chronic heart failure, unspecified heart failure type I50.9 [facility] [address] [address]- 1666 Sep, Acute on chronic heart failure, unspecified heart failure type I50.9 ; 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.22 and BMI 50.0-59.9, adult Z68.43 [place] [address] [address] 2001 Sep, Acute on chronic heart failure, unspecified heart failure type I50.9 ; HTN (hypertension) I10 and 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.22 [place] [address] [address]- 3295 Aug, Acute on chronic heart failure, unspecified heart failure type I50.9 ; HTN (hypertension) I10 ; 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.22 ; Cellulitis of right lower extremity L03.115 and BMI 50.0-59.9, adult Z68.43 [facility] [id number] [place] [address] 72532 -3355 Aug, Acute upper respiratory infection, unspecified J06.9 ; Other viral agents as the cause of diseases classified elsewhere B97.89 ; Constipation, unspecified constipation type K59.00 ; BMI 50.0-59.9, adult Z68.43 and BMI 60.0-69.9, adult Z68.44 [facility] [address] 57363- 0351 Aug, Chronic pain G89.29 [facility] [address] 41913- 9600 Jul, Chronic pain G89.29 [facility] [address] 06566- 6163 Jul, Chronic pain G89.29 [facility] [address] 04745- 4481 Jun, Chronic pain G89.29 [facility] [id number] [place] [address] 83300- 9544 Jun, [facility] [address] 17157- 9206 06 Jun, 2017 Chronic pain G89.29 [facility] [address] 74539- 4846 May, Chronic pain G89.29 and 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.22 [facility] [address] 70296- 6029 16 May, 2017 [facility] [address] 56722- 8125 May, Chronic pain G89.29 and Anxiety F41.9 [place] [address] [place] [address] 80519- 5355 May, 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.22 ; Social phobia F40.10 ; Morbid obesity E66.01 ; Chronic pain G89.29 ; HTN (hypertension) I10 ; Degenerative disc disease at L5-S1 level M51.36 ; BPH (benign prostatic hyperplasia) N40.0 ; Pain in right knee M25.561 and 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 [facility] [id number] [place] [address] 44020- 1556 Apr, Anxiety F41.9 [place] [address] 87720- 9012 Apr, [facility] [place] [id number] [place] [address] 48343- 8451 Mar, [facility] [id number] [place] [address] 33552- 9683 Mar, Edema, unspecified type R60.9 and Anxiety F41.9 [facility] [id number] [place] [address] 37482- 0048 Mar, Social phobia F40.10 ; Mixed obsessional thoughts and acts F42.2 and Mild episode of recurrent major depressive disorder F33.0 [facility] [id number] [place] [address] 92701- 5223 Mar, Degenerative disc disease at L5-S1 level M51.36 [facility] [id number] [place] [address] 60290- 7415 Mar, [facility] [id number] [place] [address] 45746- 7994 Mar, [facility] [id number] [place] [address] 69376- 7602 Mar, [facility] [place] [id number] [place] [address] 15496- 3894 February, Morbid obesity E66.01 ; Anxiety F41.9 ; Degenerative disc disease at L5-S1 level M51.36 ; BPH (benign prostatic hyperplasia) N40.0 ; Social phobia F40.10 ; HTN (hypertension) I10 ; Edema, unspecified type R60.9 and Screening cholesterol level Z13.220 [place] [id number] [place] [address] 49831- 5296 February, Social phobia, generalized F40.11 [facility] [id number] [place] [address] 55112- 2145 February, Chronic pain G89.[address] 13759- 8222 February, [facility] [id number] [place] [address] 15900- 4221 Jan, Chronic pain G89.29 [place] [id number] [place] [address] 39310- 6587 Jan, Panic disorder [episodic paroxysmal anxiety] without agoraphobia F41.0 [place] [id number] [place] [address] 80383- 9568 Dec, Morbid obesity E66.01 ; Anxiety F41.9 ; Chronic pain G89.29 ; HTN (hypertension) I10 ; BPH (benign prostatic hyperplasia) N40.0 ; Generalized edema R60.1 and Cough R05 [place] [id number] [place] [address] 30797- 8438 14 Nov, 2016 Chronic pain G89.29 [place] [id number] [place] [address] 50316- 4330 Nov, Social phobia, generalized F40.11 and Mild episode of recurrent major depressive disorder F33.0 [facility] [id number] [place] [address] 44332- 8638 Oct, Chronic pain G89.29 [facility] [id number] [place] [address] 08168- 5095 Oct, Social phobia, generalized F40.11 [facility] [address] [place] [address] 73035- 9877 Sep, [facility] [id number] [place] [address] 50121- 2835 Sep, [facility] [id number] [place] [address] 10372- 4158 Sep, [facility] [id number] [place] [address] 76939- 8243 Sep, [facility] [id number] [place] [address] 37299- 3853 Sep, [facility] [id number] [place] [address] 31295- 0028 Sep, Social phobia, generalized F40.11 and Mild episode of recurrent major depressive disorder F33.0 [facility] [id number] [place] [address] 40122- 0361 Sep, [facility] [id number] [place] [address] 30886- 5581 Aug, [facility] [id number] [place] [address] 60335- 5528 Aug, [facility] [id number] [place] [address] 97486- 3237 Aug, Bronchitis J40 [facility] [id number] [place] [address] 74290- 6975 15 Aug, 2016 [facility] [id number] [place] [address] 21406- 3162 10 Aug, 2016 Osteoarthritis of knee, unspecified M17.9 [facility] [id number] [place] [address] 98681- 8756 09 Aug, 2016 Morbid obesity E66.01 ; Chronic pain G89.29 ; Anxiety F41.9 ; Social phobia F40.10 ; HTN (hypertension) I10 ; Social phobia, generalized F40.11 ; Acute upper respiratory infection, unspecified J06.9 and Other viral agents as the cause of diseases classified elsewhere B97.89 [facility] [id number] [place] [address] 65509- 9999 Aug, Social phobia, generalized F40.11 and Dysthymic disorder F34.1 [facility] [id number] [place] [address] 79343- 8306 Jul, [facility] [id number] [place] [address] 88817- 5168 Jun, [facility] [id number] [place] [address] 70148- 0829 May, [facility] [id number] [place] [address] 71146- 4895 May, [facility] [id number] [place] [address] 56382- 9395 May, [facility] [id number] [place] [address] 62010- 5824 May, [facility] [id number] [place] [address] 99567- 9754 May, [facility] [address] [place] [address] 60161- 9491 May, [facility] [address] [place] [address] 75758- 1363 May, [facility] [address] [place] [address] 47121- 7161 Apr, [facility] [id number] [place] [address] 94383- 0528 Apr, Chondromalacia, right knee M94.261 [facility] [address], [place] [address]- 0956 Apr, Pain in unspecified hip M25.559 [facility] [id number] [place] [address] 89070- 1726 Mar, Social phobia, unspecified F40.10 and Pain in unspecified hip M25.559 [place] [id number] [place] [address] 98711- 0503 February, [place] [id number] [place] [address] 13154- 3760 February, Social phobia F40.10 [place] [id number] [place] [address] 30154- 1580 February, Morbid obesity E66.01 ; Chronic pain G89.29 ; Social phobia F40.10 ; Pelvic pain in male R10.2 ; HTN (hypertension) I10 ; Degenerative disc disease at L5-S1 level M51.36 ; BPH (benign prostatic hyperplasia) N40.0 and Pain in right knee M25.561 [place] [address] 75709- 8908 14 Jan, 2016 [place] [id number] [place] [address] 84579- 9706 Jan, [place] [address] 10201- 8371 Jan, [place] [id number] [place] [address] 52157- 3571 Dec, [place] [id number] [place] [address] 36170- 1891 Dec, [facility] [id number] [place] [address] 81866- 9614 Dec, [facility] [address] 30091 -5721 Nov, Strep pharyngitis J02.0 ; Influenza A J10.1 and Cough R05 [place] [id number] [place] [address] 45741- 1485 Nov, [place] [id number] [place] [address] 86182- 7555 17 Nov, 2015 [facility] [address] 09268- 1751 Oct, HTN (hypertension) I10 ; Morbid obesity E66.01 ; Anxiety F41.9 ; Social phobia F40.10 ; Panic disorder F41.0 ; Degenerative disc disease at L5-S1 level M51.36 and Hypercholesterolemia E78.0 [facility] [id number] [place] [address] 49651- 9427 Oct, Panic disorder [episodic paroxysmal anxiety] without agoraphobia F41.0 and Social phobia, generalized F40.11 [facility] [id number] [place] [address] 78614- 2648 Oct, [facility] [id number] [place] [address] 40321- 4845 Sep, [facility] [id number] [place] [address] 11641- 9756 Sep, [facility] [id number] [place] [address] 88573- 6446 Sep, [facility] [id number] [place] [address] 99125- 4100 Sep, [facility] [id number] [place] [address] 25462- 5081 Aug, [facility] [id number] [place] [address] 71947- 2262 Aug, [facility] [id number] [place] [address] 20877- 0778 Aug, [facility] [id number] [place] [address] 54988- 4259 Aug, Social phobia F40.10 and Panic disorder F41.0 [facility] [id number] [place] [address] 72008- 1519 Aug, [facility] [address], [place] [address]- 3287 Aug, [facility] [id number] [place] [address] 55199- 8198 Aug, [facility] [id number] [place] [address] 28386- 0079 Aug, [facility] [address] 84290- 9797 Jul, [facility] [id number] [place] [address] 66240- 2191 Jul, Morbid obesity E66.01 ; Chronic pain G89.29 ; Anxiety F41.9 ; Social phobia F40.10 ; Panic disorder F41.0 ; Pelvic pain in male R10.2 ; Insomnia G47.00 and HTN (hypertension) I10 [facility] [id number] [place] [address] 37716- 1203 Jul, [facility] [id number] [place] [address] 48113- 5113 Jul, [facility] [id number] [place] [address] 38083- 2917 16 Jun, 2015 Degenerative disc disease 722.6 [facility] [id number] [place] [address] 14680- 9913 Jun, Pain in joint, pelvic region and thigh 719.45 ; Morbid obesity 278.01 ; Essential hypertension, benign 401.1 and Constipation 564.00 [facility] [id number] [place] [address] 04582- 2253 May, [facility] [id number] [place] [address] 37009- 0437 May, [facility] [id number] [place] [address] 58881- 5411 May, [facility] [id number] [place] [address] 59455- 6160 May, [facility] [id number] [place] [address] 50888- 7549 May, [facility] [id number] [place] [address] 64236- 4223 May, [facility] [id number] [place] [address] 07876- 1267 May, Essential hypertension, benign 401.1 ; Anxiety state, unspecified 300.00 ; Panic disorder without agoraphobia 300.01 ; Social phobia 300.23 ; Morbid obesity 278.01 ; Other chronic pain 338.29 and Insomnia 780.52 [facility] [id number] [place] [address] 52088- 4409 May, Essential hypertension 401.9 [facility] [id number] [place] [address] 48429- 8595 May, Pain in joint, pelvic region and thigh 719.45 [facility] [id number] [place] [address] 88377- 1266 May, Essential hypertension, benign 401.1 [facility] [id number] [place] [address] 10813- 7102 May, Panic disorder without agoraphobia 300.01 and Social phobia 300.23 [facility] [id number] [place] [address] 10601- 2347 May, [facility] [id number] [place] [address] 90414- 3786 May, [facility] [id number] [place] [address] 47851- 9215 Apr, Chronic pain 338.29 [facility] [id number] [place] [address] 49527- 8506 Apr, [facility] [id number] [place] [address] 02025- 5111 Apr, [facility] [address] [address]- 2424 Apr, [facility] [id number] [place] [address] 82051- 8823 Apr, [facility] [id number] [address]- 8606 Apr, [facility] [id number] [place] [address] 42555- 5466 Apr, [facility] [id number] [place] [address] 39411- 5692 Apr, [facility] [id number] [place] [address] 27065- 7437 Apr, Essential hypertension, benign 401.1 ; Morbid obesity 278.01 ; Anxiety state, unspecified 300.00 ; Panic disorder without agoraphobia 300.01 ; Social phobia 300.23 and Chronic pain 338.29 [facility] [id number] [address]- 0365 Mar, [facility] [id number] [place] [address] 63480- 7414 Mar, [facility] [id number] [place] [address] 00010- 7676 Mar, [facility] [address] [address]- 2398 Mar, [facility] [id number] [address]- 9761 Mar, Social phobia 300.23 and Panic disorder without agoraphobia 300.01 [facility] [id number] [place] [address] 94544- 6423 Mar, [facility] [address] [address]- 6687 February, [facility] [id number] [place] [address] 31289- 0736 February, Major depression, recurrent 296.30 and No condition on [place] II V71.09 [facility] [address] [address]- 0516 February, [facility] [id number] 8484 February, Panic disorder without agoraphobia 300.01 ; Social phobia 300.23 and Morbid obesity 278.01 [facility] [id number] [address] Jan, [facility] [id number] [place] [address] Jan, [facility] [id number] [place] [address] Dec, [facility] [id number] [place] [address] Dec, [facility] [id number] [address] Dec, [facility] [id number] [address] Dec, [facility] [id number] [address] Dec, [facility] [id number] [address] Dec, [facility] [id number] [address] Dec, [facility] [id number] [address] Dec, [facility] [id number] [address] Dec, [facility] [id number] [address] Dec, [facility] [address] [facility] [id number] [address] Dec, [facility] [id number] [address] Dec, [facility] [address] [facility] [id number] [address] Dec, [facility] [address] [facility] [id number] [address] Dec, [facility] [address] [facility] [id number] [address] Dec, [facility] [address] [facility] [id number] [address] Dec, IMMUNIZATIONS No Known Immunizations SOCIAL HISTORY Never Assessed REASON FOR VISIT Controlled Med Refill Request PLAN OF CARE VITAL SIGNS MEDICATIONS Medication Instructions Dosage Frequency Start Date End Date Duration Status Xanax 0.25 MG Orally Twice a day 1 tablet 12h February, Active RESULTS No Results PROCEDURES No Known [...]
--- OUTSIDE RECORDS SUMMARY | 2018-02-17 17:48 | XMS REPORT ---
Author Author LINDA Gama Organization [facility] Address [address] [place] [address] Care Team Providers Care Flexboard Operator Name Role Phone LINDA Gama Unavailable PROBLEMS Type Condition ICD9-CM Code [id number] Code Onset Dates Condition Status SNOMED Code Problem Mild episode of recurrent major depressive disorder F33.0 Active 682695513 Problem Primary insomnia F51.01 Active 7089283 Problem 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.22 Active 59965325 Problem Lymphedema I89.0 Active 603073249 Problem Chronic systolic congestive heart failure I50.22 Active 539167412 Problem Constipation, unspecified constipation type K59.00 Active 72482149 Problem Mixed hyperlipidemia E78.2 Active 807926609 Problem Stasis dermatitis of both legs I87.2 Active 37079215 Problem BMI 50.0-59.9, adult Z68.43 Active 038374564 Problem Abnormal liver function test R94.5 Active 217057654 Problem Cardiomegaly I51.7 Active 0466368 Problem Controlled substance agreement terminated Z91.14 Active 980342006 Problem HTN (hypertension) I10 Active 31831147 Problem Degenerative disc disease at L5-S1 level M51.36 Active 23446354 Problem Panic disorder F41.0 Active 105688235 Problem BPH (benign prostatic hyperplasia) N40.0 Active 321385014 Problem Chronic pain G89.29 Active 90813338 Problem Dysthymic disorder F34.1 Active 77696473 ALLERGIES No Information ENCOUNTERS Encounter Location Date Diagnosis [facility] [id number] [place] [address] 81791- 9269 Jan, [facility] [id number] [place] [address] 06249- 7971 Jan, [facility] [id number] [place] [address] 13244- 4378 Jan, [facility] [id number] [place] [address] 51305- 5756 Jan, Abnormal liver function test R94.5 ; Dysthymic disorder F34.1 and Chronic pain G89.29 [facility] [id number] [place] [address] 55892- 6164 Dec, [facility] [address] 48726- 7838 Dec, HTN (hypertension) I10 ; BMI 45.0-49.9, adult Z68.42 ; Chronic pain G89.29 ; Primary insomnia F51.01 ; Mixed hyperlipidemia E78.2 ; Dysthymic disorder F34.1 ; 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.22 ; Stasis dermatitis of both legs I87.2 and Chronic systolic congestive heart failure I50.22 [facility] [id number] [place] [address] 16226- 7563 Dec, Chronic pain G89.29 [facility] [id number] [place] [address] 80295 -5059 Dec, Lymphedema I89.0 and Chronic systolic congestive heart failure I50.22 [facility] [id number] [place] [address] 81846- 4240 Dec, [facility] [id number] [place] [address] 29546- 0913 Nov, 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.22 [facility] [id number] [place] [address] 69822- 2389 Nov, Chronic pain G89.29 and Dysthymic disorder F34.1 [facility] [id number] [place] [address] 51448- 8046 Nov, [facility] [id number] [place] [address] 00312- 2865 Oct, HTN (hypertension) I10 ; Chronic pain G89.29 ; BMI 45.0-49.9 , adult Z68.42 ; Primary insomnia F51.01 ; Mixed hyperlipidemia E78.2 ; Dysthymic disorder F34.1 ; 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.22 ; Chronic congestive heart failure, unspecified congestive heart failure type I50.9 ; Acute non-recurrent maxillary sinusitis J01.00 and BMI 50.0-59.9, adult Z68.43 [facility] [id number] [place] [address] 67113- 9940 Oct, HTN (hypertension) I10 and Dysthymic disorder F34.1 [facility] [id number] [place] [address] 70429- 6038 Oct, [facility] [id number] [place] [address] 65028- 1004 Oct, HTN (hypertension) I10 [facility] [id number] [place] [address] 21916- 9024 Oct, Chronic pain G89.29 [facility] [id number] [place] [address] 00158- 3053 Sep, [facility] [id number] [place] [address] 69825- 2973 Sep, HTN (hypertension) I10 ; Chronic pain G89.29 ; BMI 45.0-49.9 , adult Z68.42 ; Primary insomnia F51.01 ; Mixed hyperlipidemia E78.2 ; Dysthymic disorder F34.1 and 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.22 [facility] [id number] [place] [address] 01406- 7395 Sep, Chronic pain G89.29 [facility] [id number] [place] [address] 09949- 1365 Sep, Acute on chronic heart failure, unspecified heart failure type I50.9 [facility] [id number] [place] [address] 18194- 1051 Sep, Acute on chronic heart failure, unspecified heart failure type I50.9 ; 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.22 and BMI 50.0-59.9, adult Z68.43 [facility] [id number] [place] [address] 12966- 5498 Sep, Acute on chronic heart failure, unspecified heart failure type I50.9 ; HTN (hypertension) I10 and 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.22 [facility] [id number] [place] [address] 99630- 7199 Aug, Acute on chronic heart failure, unspecified heart failure type I50.9 ; HTN (hypertension) I10 ; 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.22 ; Cellulitis of right lower extremity L03.115 and BMI 50.0-59.9, adult Z68.43 [facility] [id number] [place] [address] 18505 -4209 Aug, Acute upper respiratory infection, unspecified J06.9 ; Other viral agents as the cause of diseases classified elsewhere B97.89 ; Constipation, unspecified constipation type K59.00 ; BMI 50.0-59.9, adult Z68.43 and BMI 60.0-69.9, adult Z68.44 [facility] [id number] [place] [address] 85041- 0594 Aug, Chronic pain G89.29 [facility] [id number] [place] [address] 22864- 9353 Jul, Chronic pain G89.29 [facility] [id number] [place] [address] 56666- 6758 Jul, Chronic pain G89.29 [facility] [id number] [place] [address] 45656- 6584 Jun, Chronic pain G89.29 [facility] [id number] [place] [address] 35605- 6692 Jun, [facility] [address] [place] [address]- 3116 06 Jun, 2017 Chronic pain G89.29 [facility] [address] 79256- 6156 May, Chronic pain G89.29 and 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.22 [facility] [address] 12590- 5316 16 May, 2017 [facility] [address] 69888- 7280 May, Chronic pain G89.29 and Anxiety F41.9 [facility] [address] 93309- 2120 May, 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.22 ; Social phobia F40.10 ; Morbid obesity E66.01 ; Chronic pain G89.29 ; HTN (hypertension) I10 ; Degenerative disc disease at L5-S1 level M51.36 ; BPH (benign prostatic hyperplasia) N40.0 ; Pain in right knee M25.561 and 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 [facility] [address] 64243- 0975 Apr, Anxiety F41.9 [facility] [address] 79195- 4023 Apr, [facility] [id number] [place] [address] 36855- 5108 Mar, [facility] [id number] [place] [address] 03352- 8598 Mar, Edema, unspecified type R60.9 and Anxiety F41.9 [facility] [address] 22212- 2134 Mar, Social phobia F40.10 ; Mixed obsessional thoughts and acts F42.2 and Mild episode of recurrent major depressive disorder F33.0 [facility] [address] 50242- 7439 Mar, Degenerative disc disease at L5-S1 level M51.36 [facility] [id number] [place] [address] 15960- 6418 Mar, [facility] [id number] [place] [address] 75767- 6664 Mar, [facility] [id number] [place] [address] 49371- 5946 Mar, [facility] [address] 02067- 0869 February, Morbid obesity E66.01 ; Anxiety F41.9 ; Degenerative disc disease at L5-S1 level M51.36 ; BPH (benign prostatic hyperplasia) N40.0 ; Social phobia F40.10 ; HTN (hypertension) I10 ; Edema, unspecified type R60.9 and Screening cholesterol level Z13.220 [place] [id number] [place] [address] 12554- 0275 February, Social phobia, generalized F40.11 [facility] [id number] [place] [address] 57823- 7421 February, Chronic pain G89.29 [facility] [id number] [place] [address] 44824- 9285 February, [place] [id number] [place] [address] 34316- 0963 Jan, Chronic pain G89.29 [facility] [id number] [place] [address] 53083- 6900 Jan, Panic disorder [episodic paroxysmal anxiety] without agoraphobia F41.0 [facility] [place] [id number] [place] [address] 31473- 6148 Dec, Morbid obesity E66.01 ; Anxiety F41.9 ; Chronic pain G89.29 ; HTN (hypertension) I10 ; BPH (benign prostatic hyperplasia) N40.0 ; Generalized edema R60.1 and Cough R05 [address] [facility] [address] [id number] [address]- 8481 14 Nov, 2016 Chronic pain G89.29 [facility] [id number] [place] [address] 11373- 8956 03 Nov, 2016 Social phobia, generalized F40.11 and Mild episode of recurrent major depressive disorder F33.0 [facility] [id number] [place] [address] 24964- 6996 17 Oct, 2016 Chronic pain G89.29 [facility] [address] [facility] [id number] [place] [address] 08376 2546 16 Oct, 2016 Social phobia, generalized F40.11 [facility] [id number] [place] [address] 79410- 5892 Sep, [facility] [id number] [place] [address] 20808- 1436 Sep, [facility] [id number] [place] [address] 99936- 2959 Sep, [facility] [id number] [place] [address] 76079- 7140 Sep, [facility] [id number] [place] [address] 38412- 6203 Sep, [facility] [id number] [place] [address] 38724- 5236 Sep, Social phobia, generalized F40.11 and Mild episode of recurrent major depressive disorder F33.0 [facility] [id number] [address]- 3476 Sep, [facility] [id number] [place] [address] 94694- 0696 Aug, [facility] [id number] [address] 2546 Aug, [facility] [id number] [place] [address] 89003- 2819 Aug, Bronchitis J40 [facility] [id number] [place] [address] 60441- 0202 Aug, [facility] [id number] [place] [address] 57858- 3817 Aug, Osteoarthritis of knee, unspecified M17.9 [facility] [address] 09143- 5531 09 Aug, 2016 Morbid obesity E66.01 ; Chronic pain G89.29 ; Anxiety F41.9 ; Social phobia F40.10 ; HTN (hypertension) I10 ; Social phobia, generalized F40.11 ; Acute upper respiratory infection, unspecified J06.9 and Other viral agents as the cause of diseases classified elsewhere B97.89 [facility] [id number] [place] [address] 00607- 0251 Aug, Social phobia, generalized F40.11 and Dysthymic disorder F34.1 [facility] [id number] [place] [address] 71063- 7510 Jul, [facility] [id number] [place] [address] 40637- 5775 Jun, [facility] [id number] [place] [address] 22503- 7534 May, [facility] [id number] [place] [address] 91562- 7656 May, [facility] [id number] [place] [address] 74921- 9772 May, [facility] [id number] [place] [address] 99628- 7420 May, [facility] [id number] [place] [address] 90348- 7557 May, [facility] [id number] [place] [address] 60000- 5140 May, [facility] [address] [address]- 1563 May, [facility] [id number] [place] [address] 93833- 4462 Apr, [facility] [id number] [place] [address] 52623- 7225 Apr, Chondromalacia, right knee M94.261 [facility] [id number] [place] [address] 76771- 1217 Apr, Pain in unspecified hip M25.559 [facility] [id number] [place] [address] 53554- 3694 Mar, Social phobia, unspecified F40.10 and Pain in unspecified hip M25.559 [facility] [id number] [place] [address] 51466- 3936 February, [facility] [id number] [place] [address] 32096- 2734 February, Social phobia F40.10 [facility] [id number] [place] [address] 68511- 5084 February, Morbid obesity E66.01 ; Chronic pain G89.29 ; Social phobia F40.10 ; Pelvic pain in male R10.2 ; HTN (hypertension) I10 ; Degenerative disc disease at L5-S1 level M51.36 ; BPH (benign prostatic hyperplasia) N40.0 and Pain in right knee M25.561 [facility] [id number] [place] [address] 24630- 9439 Jan, [facility] [id number] [place] [address] 76134- 8537 Jan, [facility] [id number] [place] [address] 28242- 2531 Jan, [facility] [id number] [place] [address] 13427- 2043 Dec, [facility] [address] [address]- 5970 Dec, [facility] [id number] [place] [address] 16853- 1059 Dec, [facility] [id number] [place] [address] 85067 -0416 Nov, Strep pharyngitis J02.0 ; Influenza A J10.1 and Cough R05 [facility] [id number] [place] [address] 66200- 5692 Nov, [facility] [id number] [place] [address] 05280- 7977 Nov, [facility] [id number] [place] [address] 83852- 6008 Oct, HTN (hypertension) I10 ; Morbid obesity E66.01 ; Anxiety F41.9 ; Social phobia F40.10 ; Panic disorder F41.0 ; Degenerative disc disease at L5-S1 level M51.36 and Hypercholesterolemia E78.0 [facility] [id number] [place] [address] 77310- 4880 Oct, Panic disorder [episodic paroxysmal anxiety] without agoraphobia F41.0 and Social phobia, generalized F40.11 [facility] [id number] [place] [address] 33412- 8335 Oct, [facility] [id number] [place] [address] 55240- 1249 Sep, [facility] [id number] [place] [address] 90373- 8773 Sep, [facility] [id number] [place] [address] 89054- 3177 Sep, [facility] [id number] [place] [address] 85643- 8845 Sep, [facility] [id number] [place] [address] 90514- 5565 Aug, [facility] [id number] [place] [address] 14033- 9290 Aug, [facility] [id number] [place] [address] 97933- 8444 Aug, [facility] [id number] [place] [address] 78098- 7137 Aug, Social phobia F40.10 and Panic disorder F41.0 [facility] [id number] [place] [address] 37483- 6254 Aug, [facility] [id number] [place] [address] 53114- 0846 Aug, [facility] [id number] [place] [address] 91471- 4495 Aug, [facility] [id number] [place] [address] 14311- 8458 Aug, [facility] [id number] [place] [address] 96249- 1337 Jul, [facility] [id number] [place] [address] 55848- 1160 Jul, Morbid obesity E66.01 ; Chronic pain G89.29 ; Anxiety F41.9 ; Social phobia F40.10 ; Panic disorder F41.0 ; Pelvic pain in male R10.2 ; Insomnia G47.00 and HTN (hypertension) I10 [facility] [id number] [place] [address] 71744- 9521 Jul, [facility] [id number] [place] [address] 59474- 3599 Jul, [facility] [id number] [place] [address] 45500- 1566 Jun, Degenerative disc disease 722.6 [facility] [id number] [place] [address] 94757- 5504 Jun, Pain in joint, pelvic region and thigh 719.45 ; Morbid obesity 278.01 ; Essential hypertension, benign 401.1 and Constipation 564.00 [facility] [id number] [place] [address] 07216- 0805 May, [facility] [id number] [place] [address] 83245- 7235 May, [facility] [address] 49570- 6765 May, [facility] [id number] [place] [address] 44646- 6546 May, [facility] [id number] [place] [address] 95724- 1815 May, [facility] [id number] [place] [address] 68985- 2636 May, [facility] [id number] [place] [address] 97546- 2859 May, Essential hypertension, benign 401.1 ; Anxiety state, unspecified 300.00 ; Panic disorder without agoraphobia 300.01 ; Social phobia 300.23 ; Morbid obesity 278.01 ; Other chronic pain 338.29 and Insomnia 780.52 [facility] [id number] [place] [address] 41291- 3212 May, Essential hypertension 401.9 [facility] [id number] [place] [address] 14243- 7452 May, Pain in joint, pelvic region and thigh 719.45 [facility] [id number] [place] [address] 44049- 3124 May, Essential hypertension, benign 401.1 [facility] [id number] [place] [address] 01459- 0698 May, Panic disorder without agoraphobia 300.01 and Social phobia 300.23 [facility] [address] [place] [address]- 0111 May, [facility] [address] [address]- 3140 May, [facility] [id number] [address]- 5751 Apr, Chronic pain 338.29 [facility] [id number] [place] [address] 76254- 9654 Apr, [facility] [id number] [place] [address] 70887- 5505 Apr, [facility] [id number] [place] [address] 39856- 9640 Apr, [facility] [id number] [place] [address] 06659- 3259 Apr, [facility] [id number] [place] [address] 35940- 7181 Apr, [facility] [id number] [address]- 6310 Apr, [facility] [id number] [place] [address] 93119- 9472 Apr, [facility] [address] [address]- 5742 Apr, Essential hypertension, benign 401.1 ; Morbid obesity 278.01 ; Anxiety state, unspecified 300.00 ; Panic disorder without agoraphobia 300.01 ; Social phobia 300.23 and Chronic pain 338.29 [facility] [address] [address]- 5731 Mar, [facility] [id number] [address] 9942 Mar, [facility] [address] [address]- 6208 Mar, [facility] [id number] [address]- 9920 Mar, [facility] [id number] [address] Mar, Social phobia 300.23 and Panic disorder without agoraphobia 300.01 [facility] [id number] [address] Mar, [facility] [id number] [place] [address] February, [facility] [id number] [place] [address] February, Major depression, recurrent 296.30 and No condition on Mccurtain II V71.09 [facility] [id number] [place] [address] February, [facility] [id number] [place] [address] February, Panic disorder without agoraphobia 300.01 ; Social phobia 300.23 and Morbid obesity 278.01 [facility] [id number] [address] Jan, [facility] [id number] [address] Jan, [facility] [id number] [address] Dec, [facility] [id number] [address] Dec, [facility] [id number] [address] Dec, [facility] [id number] [address] Dec, [facility] [id number] [address] Dec, [facility] [id number] [address] Dec, [facility] [id number] [address] Dec, [facility] [id number] [address] Dec, [facility] [id number] [address] Dec, [facility] [id number] [address] Dec, [facility] [id number] [address] Dec, [facility] [address] [id number] [address] Dec, [facility] [id number] [address] Dec, [facility] [id number] [address] Dec, [facility] [id number] [address] Dec, [facility] [id number] [address] Dec, IMMUNIZATIONS No Known Immunizations SOCIAL HISTORY Never Assessed REASON FOR VISIT Requests return call PLAN OF CARE VITAL SIGNS MEDICATIONS Unknown [...]
--- OUTSIDE RECORDS SUMMARY | 2018-02-17 17:49 | XMS REPORT ---
Author Author ROSALBA LIZARRAGA [facility] Address [address] [place] [address] Care Team Providers Care Liquor Rectifier Name Role Phone ROSALBA LIZARRAGA Unavailable PROBLEMS Type Condition ICD9-CM Code [id number] Code Onset Dates Condition Status SNOMED Code Problem Mild episode of recurrent major depressive disorder F33.0 Active 702162597 Problem Primary insomnia F51.01 Active 1799296 Problem 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.22 Active 20156719 Problem Lymphedema I89.0 Active 898746506 Problem Chronic systolic congestive heart failure I50.22 Active 188894112 Problem Constipation, unspecified constipation type K59.00 Active 13059153 Problem Mixed hyperlipidemia E78.2 Active 936200420 Problem Stasis dermatitis of both legs I87.2 Active 49323277 Problem BMI 50.0-59.9, adult Z68.43 Active 534242962 Problem Abnormal liver function test R94.5 Active 169450464 Problem Cardiomegaly I51.7 Active 3874044 Problem Controlled substance agreement terminated Z91.14 Active 030983336 Problem HTN (hypertension) I10 Active 88373250 Problem Degenerative disc disease at L5-S1 level M51.36 Active 50772477 Problem Panic disorder F41.0 Active 909730574 Problem BPH (benign prostatic hyperplasia) N40.0 Active 570975775 Problem Chronic pain G89.29 Active 69070388 Problem Dysthymic disorder F34.1 Active 30853145 ALLERGIES Substance Reaction Event Type Date Status Wellbutrin blacking out Drug Allergy Mar, Active Prozac Unknown Drug Allergy Mar, Active ENCOUNTERS Encounter Location Date Diagnosis [facility] [address] [facility] [id number] [address] Dec, [facility] [address] [facility] [id number] [address] Dec, HTN (hypertension) I10 ; BMI 45.0-49.9, adult Z68.42 ; Chronic pain G89.29 ; Primary insomnia F51.01 ; Mixed hyperlipidemia E78.2 ; Dysthymic disorder F34.1 ; 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.22 ; Stasis dermatitis of both legs I87.2 and Chronic systolic congestive heart failure I50.22 [facility] [id number] [place] [address] 67977- 8876 Dec, Chronic pain G89.29 [facility] [id number] [place] [address] 84761 -3938 04 Dec, 2017 Lymphedema I89.0 and Chronic systolic congestive heart failure I50.22 [facility] [id number] [place] [address] 94865- 6046 Dec, [facility] [address] 34489- 5234 Nov, 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.22 [facility] [id number] [place] [address] 59876- 5890 Nov, Chronic pain G89.29 and Dysthymic disorder F34.1 [facility] [id number] [place] [address] 49000- 8354 Nov, [facility] [id number] [place] [address] 69295- 3543 Oct, HTN (hypertension) I10 ; Chronic pain G89.29 ; BMI 45.0-49.9 , adult Z68.42 ; Primary insomnia F51.01 ; Mixed hyperlipidemia E78.2 ; Dysthymic disorder F34.1 ; 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.22 ; Chronic congestive heart failure, unspecified congestive heart failure type I50.9 ; Acute non-recurrent maxillary sinusitis J01.00 and BMI 50.0-59.9, adult Z68.43 [facility] [id number] [place] [address] 24124- 9966 Oct, HTN (hypertension) I10 and Dysthymic disorder F34.1 [facility] [address] [address] 0120 Oct, [facility] [id number] [place] [address] 48819- 2557 Oct, HTN (hypertension) I10 [facility] [id number] [place] [address] 21002- 6883 Oct, Chronic pain G89.29 [facility] [id number] [place] [address] 76348- 3047 Sep, [facility] [id number] [place] [address] 42495- 2439 Sep, HTN (hypertension) I10 ; Chronic pain G89.29 ; BMI 45.0-49.9 , adult Z68.42 ; Primary insomnia F51.01 ; Mixed hyperlipidemia E78.2 ; Dysthymic disorder F34.1 and 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.22 [facility] [id number] [place] [address] 81997- 8967 18 Sep, 2017 Chronic pain G89.29 [facility] [id number] [place] [address] 13973- 8268 Sep, Acute on chronic heart failure, unspecified heart failure type I50.9 [facility] [id number] [place] [address] 70514- 4710 Sep, Acute on chronic heart failure, unspecified heart failure type I50.9 ; 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.22 and BMI 50.0-59.9, adult Z68.43 [facility] [id number] [place] [address] 51119- 3889 Sep, Acute on chronic heart failure, unspecified heart failure type I50.9 ; HTN (hypertension) I10 and 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.22 [facility] [id number] [place] [address] 31353- 6700 Aug, Acute on chronic heart failure, unspecified heart failure type I50.9 ; HTN (hypertension) I10 ; 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.22 ; Cellulitis of right lower extremity L03.115 and BMI 50.0-59.9, adult Z68.43 [facility] [address] [place] [address] 35085 -9630 Aug, Acute upper respiratory infection, unspecified J06.9 ; Other viral agents as the cause of diseases classified elsewhere B97.89 ; Constipation, unspecified constipation type K59.00 ; BMI 50.0-59.9, adult Z68.43 and BMI 60.0-69.9, adult Z68.44 [facility] [id number] [place] [address] 77950- 2904 Aug, Chronic pain G89.29 [facility] [id number] [place] [address] 12331- 1933 Jul, Chronic pain G89.29 [facility] [id number] [place] [address] 79069- 8332 Jul, Chronic pain G89.29 [facility] [id number] [place] [address] 20306- 6874 Jun, Chronic pain G89.29 [facility] [id number] [place] [address] 64907- 3217 Jun, [facility] [id number] [place] [address] 74735- 3336 06 Jun, 2017 Chronic pain G89.29 [facility] [id number] [place] [address] 31703- 2981 May, Chronic pain G89.29 and 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.22 [facility] [id number] [place] [address] 01978- 7041 16 May, 2017 [facility] [address] 14805- 2463 May, Chronic pain G89.29 and Anxiety F41.9 [facility] [id number] [place] [address] 14610- 2497 May, 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.22 ; Social phobia F40.10 ; Morbid obesity E66.01 ; Chronic pain G89.29 ; HTN (hypertension) I10 ; Degenerative disc disease at L5-S1 level M51.36 ; BPH (benign prostatic hyperplasia) N40.0 ; Pain in right knee M25.561 and 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 [facility] [id number] [place] [address] 11539- 4239 Apr, Anxiety F41.9 [facility] [address] 58203- 3350 Apr, [facility] [address] 68147- 1838 Mar, [facility] [id number] [place] [address] 12940- 6917 Mar, Edema, unspecified type R60.9 and Anxiety F41.9 [facility] [id number] [place] [address] 98705- 4988 Mar, Social phobia F40.10 ; Mixed obsessional thoughts and acts F42.2 and Mild episode of recurrent major depressive disorder F33.0 [facility] [id number] [place] [address] 79428- 1893 Mar, Degenerative disc disease at L5-S1 level M51.36 [facility] [id number] [place] [address] 15781- 1825 Mar, [address] 94619- 5678 Mar, [facility] [id number] [place] [address] 78559- 3333 Mar, [facility] [address] [place] [address]- 2391 February, Morbid obesity E66.01 ; Anxiety F41.9 ; Degenerative disc disease at L5-S1 level M51.36 ; BPH (benign prostatic hyperplasia) N40.0 ; Social phobia F40.10 ; HTN (hypertension) I10 ; Edema, unspecified type R60.9 and Screening cholesterol level Z13.220 [facility] [address] 96176- 7477 February, Social phobia, generalized F40.11 [facility] [address] 71429- 9363 February, Chronic pain G89.29 [facility] [address] 32270- 2796 February, [facility] [address] 81075- 5540 Jan, Chronic pain G89.29 [facility] [address] 55062- 8856 Jan, Panic disorder [episodic paroxysmal anxiety] without agoraphobia F41.0 [facility] [address] 04483- 0400 Dec, Morbid obesity E66.01 ; Anxiety F41.9 ; Chronic pain G89.29 ; HTN (hypertension) I10 ; BPH (benign prostatic hyperplasia) N40.0 ; Generalized edema R60.1 and Cough R05 [facility] [id number] [place] [address] 79371- 3174 Nov, Chronic pain G89.29 [facility] [address] 13640- 7216 Nov, Social phobia, generalized F40.11 and Mild episode of recurrent major depressive disorder F33.0 [facility] [id number] [place] [address] 79921- 5206 Oct, Chronic pain G89.29 [facility] [address] [address]- 5484 Oct, Social phobia, generalized F40.11 [facility] [id number] [place] [address] 27653- 5687 Sep, [facility] [id number] [place] [address] 54298- 1363 Sep, [facility] [id number] [place] [address] 52064- 3585 Sep, [facility] [id number] [place] [address] 98209- 2340 Sep, [facility] [id number] [place] [address] 31632- 4518 Sep, [facility] [id number] [place] [address] 53040- 5277 Sep, Social phobia, generalized F40.11 and Mild episode of recurrent major depressive disorder F33.0 [facility] [id number] [place] [address] 58763- 9430 Sep, [facility] [id number] [place] [address] 86347- 3133 Aug, [facility] [address] [place] [address] 62781- 0924 Aug, [facility] [id number] [place] [address] 68810- 5317 17 Aug, 2016 Bronchitis J40 [facility] [address] [place] [address] 18932- 7265 15 Aug, 2016 [facility] [id number] [place] [address] 78641- 1057 10 Aug, 2016 Osteoarthritis of knee, unspecified M17.9 [facility] [address] [address]- 0337 09 Aug, 2016 Morbid obesity E66.01 ; Chronic pain G89.29 ; Anxiety F41.9 ; Social phobia F40.10 ; HTN (hypertension) I10 ; Social phobia, generalized F40.11 ; Acute upper respiratory infection, unspecified J06.9 and Other viral agents as the cause of diseases classified elsewhere B97.89 [facility] [id number] [place] [address] 66606- 7550 Aug, Social phobia, generalized F40.11 and Dysthymic disorder F34.1 [facility] [id number] [place] [address] 24727- 6693 Jul, [facility] [id number] [place] [address] 68406- 7688 Jun, [facility] [id number] [place] [address] 10752- 4336 May, [facility] [id number] [place] [address] 97415- 2122 May, [facility] [id number] [place] [address] 17966- 8921 May, [facility] [id number] [place] [address] 45076- 9807 May, [facility] [id number] [place] [address] 98261- 5882 May, [facility] [id number] [place] [address] 23291- 4400 May, [facility] [id number] [place] [address] 82780- 4113 May, [facility] [id number] [place] [address] 33657- 1027 Apr, [facility] [id number] [place] [address] 77927- 6994 Apr, Chondromalacia, right knee M94.261 [facility] [id number] [place] [address] 90883- 8475 Apr, Pain in unspecified hip M25.559 [facility] [id number] [place] [address] 25360- 0646 Mar, Social phobia, unspecified F40.10 and Pain in unspecified hip M25.559 [facility] [id number] [place] [address] 95912- 2707 February, [facility] [address] 15605- 1783 February, Social phobia F40.10 [facility] [address] 76666- 3962 February, Morbid obesity E66.01 ; Chronic pain G89.29 ; Social phobia F40.10 ; Pelvic pain in male R10.2 ; HTN (hypertension) I10 ; Degenerative disc disease at L5-S1 level M51.36 ; BPH (benign prostatic hyperplasia) N40.0 and Pain in right knee M25.561 [facility] [address] 09882- 9781 14 Jan, 2016 [facility] [address] 46895- 8641 13 Jan, 2016 [facility] [id number] [place] [address] 11692- 3163 Jan, [facility] [id number] [place] [address] 52646- 2065 Dec, [facility] [id number] [place] [address] 09189- 0375 Dec, [facility] [address] 82617- 8426 Dec, [facility] [id number] [place] [address] 63473 -7136 Nov, Strep pharyngitis J02.0 ; Influenza A J10.1 and Cough R05 [facility] [address] [place] [address]- 9239 Nov, [facility] [id number] [place] [address] 27496- 3504 Nov, [facility] [address] 28057- 7162 Oct, HTN (hypertension) I10 ; Morbid obesity E66.01 ; Anxiety F41.9 ; Social phobia F40.10 ; Panic disorder F41.0 ; Degenerative disc disease at L5-S1 level M51.36 and Hypercholesterolemia E78.0 [facility] [id number] [place] [address] 54119- 6494 Oct, Panic disorder [episodic paroxysmal anxiety] without agoraphobia F41.0 and Social phobia, generalized F40.11 [facility] [id number] [place] [address] 71110- 8068 Oct, [facility] [address] 49404- 8550 Sep, [facility] [id number] [place] [address] 41563- 6038 Sep, [facility] [address] 50558- 1459 Sep, [facility] [id number] [place] [address] 17064- 8504 Sep, [facility] [id number] [place] [address] 48591- 0863 Aug, [facility] [id number] [place] [address] 39100- 3090 Aug, [facility] [address] 68718- 1984 Aug, [facility] [id number] [place] [address] 34097- 8279 Aug, Social phobia F40.10 and Panic disorder F41.0 [facility] [address] [address]- 3530 Aug, [facility] [id number] [place] [address] 06824- 9368 Aug, [facility] [id number] [place] [address] 74180- 8908 Aug, [facility] [id number] [place] [address] 547499- 0706 Aug, [facility] [id number] [place] [address] 75804- 0986 Jul, [facility] [id number] [place] [address] 43979- 4300 Jul, Morbid obesity E66.01 ; Chronic pain G89.29 ; Anxiety F41.9 ; Social phobia F40.10 ; Panic disorder F41.0 ; Pelvic pain in male R10.2 ; Insomnia G47.00 and HTN (hypertension) I10 [facility] [id number] [place] [address] 03312- 1487 Jul, [facility] [id number] [place] [address] 62356- 6481 Jul, [facility] [id number] [place] [address] 91830- 9639 Jun, Degenerative disc disease 722.6 [facility] [id number] [place] [address] 49126- 2749 Jun, Pain in joint, pelvic region and thigh 719.45 ; Morbid obesity 278.01 ; Essential hypertension, benign 401.1 and Constipation 564.00 [facility] [id number] [place] [address] 26765- 2574 May, [facility] [id number] [place] [address] 36231- 4879 May, [facility] [id number] [place] [address] 91829- 4785 May, [facility] [address] [address]- 3069 May, [facility] [id number] [place] [address] 17624- 9742 May, [facility] [address] [place] [address] 93725- 6371 May, [facility] [id number] [place] [address] 17883- 0181 May, Essential hypertension, benign 401.1 ; Anxiety state, unspecified 300.00 ; Panic disorder without agoraphobia 300.01 ; Social phobia 300.23 ; Morbid obesity 278.01 ; Other chronic pain 338.29 and Insomnia 780.52 [facility] [id number] [place] [address] 43673- 9781 May, Essential hypertension 401.9 [facility] [id number] [place] [address] 06076- 4733 May, Pain in joint, pelvic region and thigh 719.45 [facility] [id number] [place] [address] 25454- 9202 May, Essential hypertension, benign 401.1 [facility] [address] [place] [address] 05306- 1877 May, Panic disorder without agoraphobia 300.01 and Social phobia 300.23 [facility] [address] [place] [address] 95950- 8961 May, [facility] [address] [place] [address] 06958- 9227 May, [facility] [id number] [place] [address] 50564- 0789 Apr, Chronic pain 338.29 [facility] [address] [address]- 7472 Apr, [facility] [address] [address]- 0128 Apr, [facility] [address] [address]- 6928 Apr, [facility] [address] [address]- 2373 Apr, 2014 [facility] [address] [address]- 6334 Apr, 2014 [facility] [address] [address]- 4108 Apr, [facility] [address] [address]- 6650 Apr, [facility] [address] [address]- 4032 Apr, Essential hypertension, benign 401.1 ; Morbid obesity 278.01 ; Anxiety state, unspecified 300.00 ; Panic disorder without agoraphobia 300.01 ; Social phobia 300.23 and Chronic pain 338.29 [facility] [address] [address]- 9346 Mar, [facility] [address] [address]- 5051 Mar, [facility] [address] [address]- 4426 Mar, [facility] [address] [address]- 3579 Mar, [facility] [id number] [address]- 2634 Mar, Social phobia 300.23 and Panic disorder without agoraphobia 300.01 [facility] [address] [address]- 4849 Mar, [facility] [address] [address]- 7940 February, [facility] [address] [address]- 5992 February, Major depression, recurrent 296.30 and No condition on [place] II V71.09 [facility] [address] [address]- 5099 February, [facility] [id number] [place] [address] 47112- 1972 February, Panic disorder without agoraphobia 300.01 ; Social phobia 300.23 and Morbid obesity 278.01 [facility] [id number] [address] Jan, [facility] [id number] [place] [address] Jan, [facility] [id number] [address] Dec, [facility] [id number] [address] Dec, [facility] [id number] [address] Dec, [facility] [id number] [address] Dec, [facility] [id number] [address] Dec, [facility] [id number] [address] Dec, [facility] [id number] [address] Dec, [facility] [id number] [address] Dec, [facility] [id number] [address] Dec, [facility] [id number] [address] Dec, [facility] [address] [facility] [id number] [address] Dec, [facility] [id number] [address] Dec, [facility] [id number] [address] Dec, [facility] [id number] [address] Dec, [facility] [id number] [address] Dec, [facility] [id number] [address] Dec, IMMUNIZATIONS No Known Immunizations SOCIAL HISTORY Never Assessed REASON FOR VISIT intake - Carleen IVERSON PLAN OF CARE Activity Details Follow Up 4 Weeks Reason: F/U VITAL SIGNS MEDICATIONS Medication Instructions Dosage Frequency Start Date End Date Duration Status Lisinopril 40 MG oral once a day TAKE ONE TABLET BY MOUTH ONCE DAILY 24h 30 Active Blood Glucose Monitor System w/Device as directed Mar, Active Wheelchair N/A as directed Aug, Active Hydrocodone-Acetaminophen 10-325 MG TAKE ONE TABLET BY MOUTH THREE TIMES DAILY NEEDED 28 Active Ibuprofen 800 MG Orally 3 times a day 1 tablet with food or milk as needed 8h 30 days Active Blood Glucose Test - as directed Mar, Active Verapamil HCl ER 360 MG Orally Once a day 1 capsule in the morning 24h 30 Active Hydrochlorothiazide 12.5 MG Orally Once a day 1 capsule by Oral route 1 time per day take in am for blood pressure 24h 30 Active Diovan 320 MG Orally Once a day 1 tablet 24h 30 Active Metoprolol Succinate ER 50 mg TAKE ONE TABLET BY MOUTH ONCE DAILY 30 Active Paxil 10 mg Orally at bedtime 1 tablet Mar, 30 day(s) Active Albuterol Sulfate HFA 108 (90 Base) MCG/ACT Inhalation every 4 hrs 2 puffs as needed 4h 17 Aug, 2016 Active Xanax 0.25 MG Orally Twice a day 1 tablet 12h February, Active Trazodone HCl 50 mg Orally Once a day 1 tablet at bedtime as needed 24h Active RESULTS No Results PROCEDURES No [...]
--- OUTSIDE RECORDS SUMMARY | 2018-02-17 17:50 | XMS REPORT | Continuity of Care Document ---
Author Author [facility] Organization [facility] Address Unknown Phone Unavailable Allergies Active Description Code Type Severity Reaction Onset Reported/Identified Relationship to Patient Clinical Status Yes No Known Drug Allergies [id number] Drug Allergy Unknown N/A 03/12/2012 Medications There [...] INVOLVING PELVIC REGION AND THIGH 01/15/2015 MALKA RELIGION DEPARTMENT CHAIR, CODY R 300.00 AN ANXIETY UNSPEC 01/15/2015 MALKA RELIGION DEPARTMENT CHAIR, CODY R 300.01 AN PANIC DIS W/O AGORA 01/15/2015 MALKA RELIGION DEPARTMENT CHAIR, CODY R 300.23 AN SOCIAL PHOBIA 01/15/2015 MALKA RELIGION DEPARTMENT CHAIR, CODY R 300.00 AN ANXIETY UNSPEC 01/15/2015 MALKA RELIGION DEPARTMENT CHAIR, CODY R 300.01 AN PANIC DIS W/O AGORA 01/15/2015 MALKA RELIGION DEPARTMENT CHAIR, CODY R 300.23 AN SOCIAL PHOBIA 01/15/2015 MALKA RELIGION DEPARTMENT CHAIR, CODY R 300.00 AN ANXIETY UNSPEC 01/15/2015 MALKA RELIGION DEPARTMENT CHAIR, CODY R 300.01 AN PANIC DIS W/O [...] PAIN IN LIMB 09/20/2017 Ot 785.1 PALPITATIONS 09/20/2017 OBIE KIDD MD Ot F41.9 ANXIETY DISORDER, UNSPECIFIED 09/20/2017 OBIE KIDD MD Ot I11.0 HYPERTENSIVE HEART DISEASE WITH HEART FA 09/20/2017 OBIE KIDD MD Ot I50.9 HEART FAILURE, UNSPECIFIED 09/20/2017 OBIE KIDD MD Ot R60.0 LOCALIZED EDEMA 09/28/2017 OBIE KIDD MD Ot F41.9 ANXIETY DISORDER, UNSPECIFIED 09/28/2017 OBIE KIDD MD Ot I11.0 HYPERTENSIVE HEART DISEASE WITH HEART FA 09/28/2017 OBIE KIDD MD Ot I50.9 HEART FAILURE, UNSPECIFIED 09/28/2017 OBIE KIDD MD Ot R60.0 LOCALIZED EDEMA 10/11/2017 JEANMARIE GUTIERREZ MD Ot E11.9 TYPE 2 DIABETES MELLITUS WITHOUT COMPLIC 10/11/2017 JEANMARIE GUTIERREZ MD Ot E66.01 MORBID (SEVERE) OBESITY DUE TO EXCESS CA 10/11/2017 JEANMARIE GUTIERREZ MD Ot E78.5 HYPERLIPIDEMIA, UNSPECIFIED 10/11/2017 JEANMARIE GUTIERREZ MD Ot E87.6 HYPOKALEMIA 10/11/2017 JEANMARIE GUTIERREZ MD Ot F17.220 NICOTINE DEPENDENCE, CHEWING TOBACCO, UN 10/11/2017 JEANMARIE GUTIERREZ MD Ot I50.21 ACUTE SYSTOLIC (CONGESTIVE) HEART FAILUR 10/11/2017 JEANMARIE GUTIERREZ MD Ot Z79.84 POLYETHYLENE COMBINER (CURRENT) USE OF ORAL HYPOGLYC 10/11/2017 JEANMARIE GUTIERREZ MD Ot Z98.1 ARTHRODESIS STATUS 10/11/2017 JEANMARIE GUTIERREZ MD Ot E11.9 TYPE 2 DIABETES MELLITUS WITHOUT COMPLIC 10/11/2017 JEANMARIE GUTIERREZ MD Ot E66.01 MORBID (SEVERE) OBESITY DUE TO EXCESS CA 10/11/2017 JEANMARIE GUTIERREZ MD Ot E78.5 HYPERLIPIDEMIA, UNSPECIFIED 10/11/2017 JEANMARIE GUTIERREZ MD Ot E87.6 HYPOKALEMIA 10/11/2017 JEANMARIE GUTIERREZ MD Ot F17.220 NICOTINE DEPENDENCE, CHEWING TOBACCO, UN 10/11/2017 JEANMARIE GUTIERREZ MD Ot I50.21 ACUTE SYSTOLIC (CONGESTIVE) HEART FAILUR 10/11/2017 JEANMARIE GUTIERREZ MD Ot Z79.84 POLYETHYLENE COMBINER (CURRENT) USE OF ORAL HYPOGLYC 10/11/2017 JEANMARIE GUTIERREZ MD Ot Z98.1 ARTHRODESIS STATUS 11/10/2017 Ot 721.3 LUMBOSACRAL SPONDYLOSIS 11/10/2017 Ot 729.5 PAIN IN LIMB 11/10/2017 Ot 785.1 PALPITATIONS 11/10/2017 Curtis PATINO MD Ot E11.9 TYPE 2 DIABETES MELLITUS WITHOUT COMPLIC 11/10/2017 Curtis PATINO MD Ot E66.01 MORBID (SEVERE) OBESITY DUE TO EXCESS CA 11/10/2017 Curtis PATINO MD Ot E78.5 HYPERLIPIDEMIA, UNSPECIFIED 11/10/2017 Curtis PATINO MD Ot F17.220 NICOTINE DEPENDENCE, CHEWING TOBACCO, UN 11/10/2017 Curtis PATINO MD Ot F32.9 MAJOR DEPRESSIVE DISORDER, SINGLE EPISOD 11/10/2017 Curtis PATINO MD Ot F41.9 ANXIETY DISORDER, UNSPECIFIED 11/10/2017 Curtis PATINO MD Ot I11.0 HYPERTENSIVE HEART DISEASE WITH HEART FA 11/10/2017 Curtis PATINO MD Ot I42.9 CARDIOMYOPATHY, UNSPECIFIED 11/10/2017 Curtis PATINO MD Ot I50.23 ACUTE ON CHRONIC SYSTOLIC (CONGESTIVE) H 11/10/2017 Curtis PATINO MD Ot Z68.43 BODY MASS INDEX (BMI) 50-59.9 , ADULT 11/10/2017 Curtis PATINO MD Ot Z79.899 OTHER POLYETHYLENE COMBINER (CURRENT) DRUG THERAPY 11/14/2017 Curtis PATINO MD Ot E11.9 TYPE 2 DIABETES MELLITUS WITHOUT COMPLIC 11/14/2017 Curtis PATINO MD Ot E66.01 MORBID (SEVERE) OBESITY DUE TO EXCESS CA 11/14/2017 Curtis PATINO MD Ot E78.5 HYPERLIPIDEMIA, UNSPECIFIED 11/14/2017 Curtis PATINO MD Ot F17.220 NICOTINE DEPENDENCE, CHEWING TOBACCO, UN 11/14/2017 Curtis PATINO MD Ot F32.9 MAJOR DEPRESSIVE DISORDER, SINGLE EPISOD 11/14/2017 Curtis PATINO MD Ot F41.9 ANXIETY DISORDER, UNSPECIFIED 11/14/2017 Curtis PATINO MD Ot I11.0 HYPERTENSIVE HEART DISEASE WITH HEART FA 11/14/2017 Curtis PATINO MD Ot I42.9 CARDIOMYOPATHY, UNSPECIFIED 11/14/2017 Curtis PATINO MD Ot I50.23 ACUTE ON CHRONIC SYSTOLIC (CONGESTIVE) H 11/14/2017 Curtis PATINO MD, Ot Z68.43 BODY MASS INDEX (BMI) 50-59.9 , ADULT 11/14/2017 Curtis PATINO MD, Ot Z79.899 OTHER POLYETHYLENE COMBINER (CURRENT) DRUG THERAPY 11/15/2017 Curtis PATINO MD Ot E11.9 TYPE 2 DIABETES MELLITUS WITHOUT COMPLIC 11/15/2017 Curtis PATINO MD Ot E66.01 MORBID (SEVERE) OBESITY DUE TO EXCESS CA 11/15/2017 Curtis PATINO MD, Ot E78.5 HYPERLIPIDEMIA, UNSPECIFIED 11/15/2017 Curtis PATINO MD Ot F17.220 NICOTINE DEPENDENCE, CHEWING TOBACCO, UN 11/15/2017 Curtis PATINO MD, Ot F32.9 MAJOR DEPRESSIVE DISORDER, SINGLE EPISOD 11/15/2017 Curtis PATINO MD, Ot F41.9 ANXIETY DISORDER, UNSPECIFIED 11/15/2017 Curtis PATINO MD Ot I11.0 HYPERTENSIVE HEART DISEASE WITH HEART FA 11/15/2017 Curtis PATINO MD, Ot I42.9 CARDIOMYOPATHY, UNSPECIFIED 11/15/2017 Curtis PATINO MD, Ot I50.23 ACUTE ON CHRONIC SYSTOLIC (CONGESTIVE) H 11/15/2017 Curtis PATINO MD, Ot Z68.43 BODY MASS INDEX (BMI) 50-59.9 , ADULT 11/15/2017 Curtis PATINO MD, Ot Z79.899 OTHER POLYETHYLENE COMBINER (CURRENT) DRUG THERAPY 12/02/2017 Curtis PATINO MD Ot G47.33 OBSTRUCTIVE SLEEP APNEA (ADULT) (PEDIATR 01/04/2018 Curtis PATINO MD, Ot G47.33 OBSTRUCTIVE SLEEP APNEA (ADULT) (PEDIATR 01/18/2018 NAVDEEP BOYER APRN Ot E11.622 TYPE 2 DIABETES MELLITUS WITH OTHER SKIN 01/18/2018 NAVDEEP BOYER APRN Ot 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 01/18/2018 NAVDEEP BOYER APRN Ot L97.812 NON-PRS CHRONIC ULCER OTH PRT R LOW LEG 01/18/2018 NAVDEEP BOYER R RELIGION DEPARTMENT CHAIR Ot L97.822 NON-PRS CHRONIC ULCER OTH PRT L LOW LEG 01/25/2018 NAVDEEP BOYER RELIGION DEPARTMENT CHAIR Ot E11.622 TYPE 2 DIABETES MELLITUS WITH OTHER SKIN 01/25/2018 NAVDEEP BOYER RELIGION DEPARTMENT CHAIR Ot 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 01/25/2018 NAVDEEP BOYER R RELIGION DEPARTMENT CHAIR Ot L97.811 NON-PRS CHR ULCER OTH PRT R LOW LEG LIMI 01/25/2018 ANVDEEP BOYER R RELIGION DEPARTMENT CHAIR Ot L97.812 NON-PRS CHRONIC ULCER OTH PRT R LOW LEG 01/25/2018 MERLINNAVDEEP R RELIGION DEPARTMENT CHAIR Ot L97.822 NON-PRS CHRONIC ULCER OTH PRT L LOW LEG 02/06/2018 NAVDEEP BOYER RELIGION DEPARTMENT CHAIR Ot E11.622 TYPE 2 DIABETES MELLITUS WITH OTHER SKIN 02/06/2018 NAVDEEP BOYER RELIGION DEPARTMENT CHAIR Ot 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 02/06/2018 NAVDEEP BOYER R RELIGION DEPARTMENT CHAIR Ot L97.811 NON-PRS CHR ULCER OTH PRT R LOW LEG LIMI 02/06/2018 NAVDEEP BOYER RELIGION DEPARTMENT CHAIR Ot L97.812 NON-PRS CHRONIC ULCER OTH PRT R LOW LEG 02/06/2018 NAVDEEP BOYER R RELIGION DEPARTMENT CHAIR Ot L97.822 NON-PRS CHRONIC ULCER OTH PRT L LOW LEG 02/07/2018 CAREY MCLEAN, Curtis MUNOZ Ot E78.5 HYPERLIPIDEMIA, UNSPECIFIED 02/07/2018 CAREY MCLEAN, Curtis MUNOZ Ot I11.0 HYPERTENSIVE HEART DISEASE WITH HEART FA 02/07/2018 CAREY MCLEAN, Curtis MUNOZ Ot I42.9 CARDIOMYOPATHY, UNSPECIFIED 02/07/2018 CAREY MCLEAN, Curtis MUNOZ Ot R06.02 SHORTNESS OF BREATH 02/07/2018 CAREY MCLEAN, Curtis MUNOZ Ot Z72.0 TOBACCO USE 02/08/2018 NAVDEEP BOYER RELIGION DEPARTMENT CHAIR Ot E11.622 TYPE 2 DIABETES MELLITUS WITH OTHER SKIN 02/08/2018 NAVDEEP BOYER RELIGION DEPARTMENT CHAIR Ot 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 02/08/2018 NAVDEEP BOYER R RELIGION DEPARTMENT CHAIR Ot L97.811 NON-PRS CHR ULCER OTH PRT R LOW LEG LIMI 02/08/2018 NAVDEEP BOYER R RELIGION DEPARTMENT CHAIR Ot L97.812 NON-PRS CHRONIC ULCER OTH PRT R LOW LEG 02/08/2018 MERLIN NAVDEEP R RELIGION DEPARTMENT CHAIR Ot L97.822 NON-PRS CHRONIC ULCER OTH PRT L LOW LEG 02/10/2018 MERLINNAVDEEP R RELIGION DEPARTMENT CHAIR Ot E11.622 TYPE 2 DIABETES MELLITUS WITH OTHER SKIN 02/10/2018 MERLINNAVDEEP R RELIGION DEPARTMENT CHAIR Ot 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 02/10/2018 MERLIN NAVDEEP R RELIGION DEPARTMENT CHAIR Ot L97.812 NON-PRS CHRONIC ULCER OTH PRT R LOW LEG 02/10/2018 MERLIN NAVDEEP R RELIGION DEPARTMENT CHAIR Ot L97.822 NON-PRS CHRONIC ULCER OTH PRT L LOW LEG 02/13/2018 MERLIN NAVDEEP R RELIGION DEPARTMENT CHAIR Ot E11.622 TYPE 2 DIABETES MELLITUS WITH OTHER SKIN 02/13/2018 MERLIN NAVDEEP R RELIGION DEPARTMENT CHAIR Ot 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 02/13/2018 MERLINNAVDEEP R RELIGION DEPARTMENT CHAIR Ot L97.812 NON-PRS CHRONIC ULCER OTH PRT R LOW LEG 02/13/2018 MERLIN NAVDEPE R RELIGION DEPARTMENT CHAIR Ot L97.822 NON-PRS CHRONIC ULCER OTH PRT L LOW LEG 02/15/2018 MERLINNAVDEEP R RELIGION DEPARTMENT CHAIR Ot E11.622 TYPE 2 DIABETES MELLITUS WITH OTHER SKIN 02/15/2018 MERLINNAVDEEP R RELIGION DEPARTMENT CHAIR Ot 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 02/15/2018 NAVDEEP BOYER R RELIGION DEPARTMENT CHAIR Ot L97.811 NON-PRS CHR ULCER OTH PRT R LOW LEG LIMI 02/15/2018 MERLIN NAVDEEP R RELIGION DEPARTMENT CHAIR Ot L97.812 NON-PRS CHRONIC ULCER OTH PRT R LOW LEG 02/15/2018 MERLIN NAVDEEP R RELIGION DEPARTMENT CHAIR Ot L97.822 NON-PRS CHRONIC ULCER OTH PRT L LOW LEG Procedures Code [place] [address] XRAY CHEST 2 VIEW 01/15/2015 27846 EKG, TRACING (IN-HOUSE) 01/15/2015 94107 PSYCH DIAGNOSTIC EVALUATION 01/15/2015 68832 ROUTINE VENIPUNCTURE 01/17/2015 Cardiolog Barbra Mabry 01/17/2015 14935 CBC 01/17/2015 2591725 GFR CALC (RESULT ONLY) 01/17/2015 14286 CMP 01/17/2015 84057 LIPID PANEL 01/17/2015 94339 MAGNESIUM 01/17/2015 93486 TSH 01/17/2015 Results Test Result Range CBC With Differential/Platelet - 03/17/17 09:47 WBC 9.0 x10E3/uL 3.4-10.8 RBC 5.27 x10E6/uL 4.14-5.80 Hemoglobin 15.1 g/dL 12.6-17.7 Hematocrit 45.1 % 37.5-51.0 MCV 86 fL 79-97 MCH 28.7 pg 26.6-33.0 MCHC 33.5 g/dL 31.5-35.7 RDW 13.4 % 12.3-15.4 Platelets 279 x10E3/uL 150-379 Neutrophils 74 % Lymphs 17 % Monocytes 6 % Eos 2 % Basos 0 % Neutrophils (Absolute) 6.7 x10E3/uL 1.4-7.0 Lymphs (Absolute) 1.6 x10E3/uL 0.7-3.1 Monocytes(Absolute) 0.5 x10E3/uL 0.1-0.9 Eos (Absolute) 0.2 x10E3/uL 0.0-0.4 Baso (Absolute) 0.0 x10E3/uL 0.0-0.2 Immature Granulocytes 1 % Immature Grans (Abs) 0.1 x10E3/uL 0.0-0.1 Comp. Metabolic Panel (14) - 03/17/17 09:47 Glucose, Serum 237 mg/dL 65-99 BUN 9 mg/dL 6-24 Creatinine, Serum 0.62 mg/dL 0.76-1.27 eGFR If NonAfricn Am 121 mL/min/1.73 >59 eGFR If Africn Am 139 mL/min/1.73 >59 BUN/Creatinine Ratio 15 9-20 Sodium, Serum 139 mmol/L 134-144 Potassium, Serum 4.2 mmol/L 3.5-5.2 Chloride, Serum 93 mmol/L 96-106 Carbon Dioxide, Total 23 mmol/L 18-29 Calcium, Serum 9.4 mg/dL 8.7-10.2 Protein, Total, Serum 7.8 g/dL 6.0-8.5 Albumin, Serum 4.2 g/dL 3.5-5.5 Globulin, Total 3.6 g/dL 1.5-4.5 A/G Ratio 1.2 1.2-2.2 Bilirubin, Total 0.5 mg/dL 0.0-1.2 Alkaline Phosphatase, S 99 IU/L 39-117 AST (SGOT) 27 IU/L 0-40 ALT (SGPT) 38 IU/L 0-44 Lipid Panel - 03/17/17 09:47 Cholesterol, Total 168 mg/dL 100-199 Triglycerides 101 mg/dL 0-149 HDL Cholesterol 43 mg/dL >39 VLDL Cholesterol George 20 mg/dL 5-40 LDL Cholesterol Calc 105 mg/dL 0-99 Prostate-Specific Ag, Serum - 03/17/17 09:47 Prostate Specific Ag, Serum 0.2 ng/mL 0.0-4.0 Complete blood count (CBC) with automated white [...] i.cardiac measurement (mass/volume) < ng/ mL <0.30 CBC - 09/23/17 11:34 WHITE BLOOD CELL COUNT 8.3 Thousand/uL 3.8-10.8 RED BLOOD CELL COUNT 4.67 Million/uL 4.20-5.80 HEMOGLOBIN 13.3 g/dL 13.2-17.1 HEMATOCRIT 40.6 % 38.5-50.0 MCV 86.9 fL 80.0-100.0 MCH 28.5 pg 27.0-33.0 MCHC 32.8 g/dL 32.0-36.0 RDW 12.8 % 11.0-15.0 PLATELET COUNT 238 Thousand/uL 140-400 MPV 10.9 fL 7.5-12.5 ABSOLUTE NEUTROPHILS 6408 cells/uL 5998-1498 ABSOLUTE LYMPHOCYTES 1154 cells/uL 850-3900 ABSOLUTE MONOCYTES 664 cells/uL 200-950 ABSOLUTE EOSINOPHILS 33 cells/uL 15-500 ABSOLUTE BASOPHILS 42 cells/uL 0-200 NEUTROPHILS 77.2 % NRG LYMPHOCYTES 13.9 % NRG MONOCYTES 8.0 % NRG EOSINOPHILS 0.4 % NRG BASOPHILS 0.5 % NRG TSH - 09/23/17 11:34 TSH 2.77 mIU/L 0.40-4.50 BNP - 09/23/17 11:34 B TYPE NATRIURETIC PEPTIDE (BNP) 445 pg/mL <100 Complete blood count (CBC) with automated white [...] 10/07/17 11:15 BNP level 796.4 pg/mL <100.0 Complete blood count (CBC) with automated white blood cell (WBC) differential - 10/08/17 04:24 Blood leukocytes automated count (number/volume) 7.4 10*3/uL 4.3-11.0 Blood erythrocytes automated count (number/volume) 4.63 10*6/uL 4.35-5.85 Venous blood hemoglobin measurement (mass/volume) 12.6 g/dL 13.3-17.7 Blood hematocrit (volume fraction) 39 % 40-54 Automated erythrocyte mean corpuscular volume 84 [foz_us] 80-99 Automated erythrocyte mean corpuscular hemoglobin (mass per erythrocyte) 27 pg 25-34 Automated erythrocyte mean corpuscular hemoglobin concentration measurement ( mass/volume) 32 g/dL 32-36 Automated erythrocyte distribution width ratio 13.8 % 10.0-14.5 Automated blood platelet count (count/volume) 238 10*3/uL 130-400 Automated blood platelet mean volume measurement 9.6 [foz_us] 7.4-10.4 Automated blood neutrophils/100 leukocytes 70 % 42-75 Automated blood lymphocytes/100 leukocytes 16 % 12-44 Blood monocytes/100 leukocytes 13 % 0-12 Automated blood eosinophils/100 leukocytes 1 % 0-10 Automated blood basophils/100 leukocytes 0 % 0-10 Blood neutrophils automated count (number/volume) 5.2 10*3 1.8-7.8 Blood lymphocytes automated count (number/volume) 1.2 10*3 1.0-4.0 Blood monocytes automated count (number/volume) 1.0 10*3 0.0-1.0 Automated eosinophil count 0.0 10*3/uL 0.0-0.3 Automated blood basophil count (count/volume) 0.0 10*3/uL 0.0-0.1 Comprehensive metabolic panel - 10/08/17 04:24 Serum or plasma sodium measurement (moles/volume) 141 mmol/L 135-145 Serum or plasma potassium measurement (moles/volume) 3.2 mmol/L 3.6-5.0 Serum or plasma chloride measurement (moles/volume) 97 mmol/L 98-107 Carbon dioxide 30 mmol/L 21-32 Serum or plasma anion gap determination (moles/volume) 14 mmol/L 5-14 Serum or plasma urea nitrogen measurement (mass/volume) 12 mg/dL 7-18 Serum or plasma creatinine measurement (mass/volume) 0.80 mg/dL 0.60-1.30 Serum or plasma urea nitrogen/creatinine mass ratio 15 NRG Serum or plasma creatinine measurement with calculation of estimated glomerular filtration rate > NRG Serum or plasma glucose measurement (mass/volume) 135 mg/dL 70-105 Serum or plasma calcium measurement (mass/volume) 8.6 mg/dL 8.5-10.1 Serum or plasma total bilirubin measurement (mass/volume) 1.2 mg/dL 0.1-1.0 Serum or plasma alkaline phosphatase measurement (enzymatic activity/volume) 95 U/L 40-136 Serum or plasma aspartate aminotransferase measurement (enzymatic activity/ volume) 15 U/L 5-34 Serum or plasma alanine aminotransferase measurement (enzymatic activity/volume ) 16 U/L 0-55 Serum or plasma protein measurement (mass/volume) 7.1 g/dL 6.4-8.2 Serum or plasma albumin measurement (mass/volume) 3.5 g/dL 3.2-4.5 Comprehensive metabolic panel - 10/09/17 05:46 Serum or plasma sodium measurement (moles/volume) 141 mmol/L 135-145 Serum or plasma potassium measurement (moles/volume) 3.4 mmol/L 3.6-5.0 Serum or plasma chloride measurement (moles/volume) 97 mmol/L 98-107 Carbon dioxide 33 mmol/L 21-32 Serum or plasma anion gap determination (moles/volume) 11 mmol/L 5-14 Serum or plasma urea nitrogen measurement (mass/volume) 14 mg/dL 7-18 Serum or plasma creatinine measurement (mass/volume) 0.82 mg/dL 0.60-1.30 Serum or plasma urea nitrogen/creatinine mass ratio 17 NRG Serum or plasma creatinine measurement with calculation of estimated glomerular filtration rate > NRG Serum or plasma glucose measurement (mass/volume) 144 mg/dL 70-105 Serum or plasma calcium measurement (mass/volume) 9.1 mg/dL 8.5-10.1 Serum or plasma total bilirubin measurement (mass/volume) 0.8 mg/dL 0.1-1.0 Serum or plasma alkaline phosphatase measurement (enzymatic activity/volume) 94 U/L 40-136 Serum or plasma aspartate aminotransferase measurement (enzymatic activity/ volume) 15 U/L 5-34 Serum or plasma alanine aminotransferase measurement (enzymatic activity/volume ) 17 U/L 0-55 Serum or plasma protein measurement (mass/volume) 7.0 g/dL 6.4-8.2 Serum or plasma albumin measurement (mass/volume) 3.4 g/dL 3.2-4.5 Complete urinalysis with reflex to culture - 10/09/17 07:00 Urine color determination YELLOW NRG Urine clarity determination CLEAR NRG Urine pH measurement by test strip 6 5-9 Specific gravity of urine by test strip 1.020 1.016- 1.022 Urine protein assay by test strip, semi-quantitative NEGATIVE NEGATIVE Urine glucose detection by automated test strip NEGATIVE NEGATIVE Erythrocytes detection in urine sediment by light microscopy NEGATIVE NEGATIVE Urine ketones detection by automated test strip NEGATIVE NEGATIVE Urine nitrite detection by test strip NEGATIVE NEGATIVE Urine total bilirubin detection by test strip NEGATIVE NEGATIVE Urine urobilinogen measurement by automated test strip (mass/volume) 1 mg/dL NORMAL Urine leukocyte esterase detection by dipstick NEGATIVE NEGATIVE Automated urine sediment erythrocyte count by microscopy (number/high power field) NONE NRG Automated urine sediment leukocyte count by microscopy (number/high power field ) NONE NRG Bacteria detection in urine sediment by light microscopy FEW NRG Squamous epithelial cells detection in urine sediment by light microscopy 0-2 NRG Crystals detection in urine sediment by light microscopy NONE NRG Casts detection in urine sediment by light microscopy NONE NRG Mucus detection in urine sediment by light microscopy NEGATIVE NRG Complete urinalysis with reflex to culture NO NRG Whole blood basic metabolic panel - 10/10/17 05:19 Serum or plasma sodium measurement (moles/volume) 140 mmol/L 135-145 Serum or plasma potassium measurement (moles/volume) 3.6 mmol/L 3.6-5.0 Serum or plasma chloride measurement (moles/volume) 96 mmol/L 98-107 Carbon dioxide 32 mmol/L 21-32 Serum or plasma anion gap determination (moles/volume) 12 mmol/L 5-14 Serum or plasma urea nitrogen measurement (mass/volume) 15 mg/dL 7-18 Serum or plasma creatinine measurement (mass/volume) 0.83 mg/dL 0.60-1.30 Serum or plasma urea nitrogen/creatinine mass ratio 18 NRG Serum or plasma creatinine measurement with calculation of estimated glomerular filtration rate > NRG Serum or plasma glucose measurement (mass/volume) 143 mg/dL 70-105 Serum or plasma calcium measurement (mass/volume) 9.2 mg/dL 8.5-10.1 Automated blood complete blood count (hemogram) panel - 11/10/17 07:35 Blood leukocytes automated count (number/volume) 9.5 10*3/uL 4.3-11.0 Blood erythrocytes automated count (number/volume) 5.47 10*6/uL 4.35-5.85 Venous blood hemoglobin measurement (mass/volume) 14.3 g/dL 13.3-17.7 Blood hematocrit (volume fraction) 44 % 40-54 Automated erythrocyte mean corpuscular volume 81 [foz_us] 80-99 Automated erythrocyte mean corpuscular hemoglobin (mass per erythrocyte) 26 pg 25-34 Automated erythrocyte mean corpuscular hemoglobin concentration measurement ( mass/volume) 32 g/dL 32-36 Automated erythrocyte distribution width ratio 15.2 % 10.0-14.5 Automated blood platelet count (count/volume) 276 10*3/uL 130-400 Automated blood platelet mean volume measurement 9.5 [foz_us] 7.4-10.4 PT panel in platelet poor plasma by coagulation assay - 11/10/17 07:35 Prothrombin time (PT) in platelet poor plasma by coagulation assay 16.5 s 12.2-14.7 INR in platelet poor plasma or blood by coagulation assay 1.3 0.8-1.4 Activated partial thromboplastin time (aPTT) in platelet poor plasma bycoagulation assay - 11/10/17 07:35 Activated partial thromboplastin time (aPTT) in platelet poor plasma bycoagulation assay 32 s 24-35 Comprehensive metabolic panel - 11/10/17 07:35 Serum or plasma sodium measurement (moles/volume) 137 mmol/L 135-145 Serum or plasma potassium measurement (moles/volume) 3.9 mmol/L 3.6-5.0 Serum or plasma chloride measurement (moles/volume) 98 mmol/L 98-107 Carbon dioxide 25 mmol/L 21-32 Serum or plasma anion gap determination (moles/volume) 14 mmol/L 5-14 Serum or plasma urea nitrogen measurement (mass/volume) 14 mg/dL 7-18 Serum or plasma creatinine measurement (mass/volume) 0.89 mg/dL 0.60-1.30 Serum or plasma urea nitrogen/creatinine mass ratio 16 NRG Serum or plasma creatinine measurement with calculation of estimated glomerular filtration rate > NRG Serum or plasma glucose measurement (mass/volume) 169 mg/dL 70-105 Serum or plasma calcium measurement (mass/volume) 9.1 mg/dL 8.5-10.1 Serum or plasma total bilirubin measurement (mass/volume) 1.4 mg/dL 0.1-1.0 Serum or plasma alkaline phosphatase measurement (enzymatic activity/volume) 116 U/L 40-136 Serum or plasma aspartate aminotransferase measurement (enzymatic activity/ volume) 20 U/L 5-34 Serum or plasma alanine aminotransferase measurement (enzymatic activity/volume ) 37 U/L 0-55 Serum or plasma protein measurement (mass/volume) 8.2 g/dL 6.4-8.2 Serum or plasma albumin measurement (mass/volume) 3.7 g/dL 3.2-4.5 Methicillin resistant Staphylococcus aureus (MRSA) screening culture - 07:35 Methicillin resistant Staphylococcus aureus (MRSA) screening culture NEG NRG PDM - PAIN MGMT (PROFILE 3 WITH CONFIRMATION) - 01/03/18 11:34 Prescribed Drug 1 Hydrocodone NRG Creatinine 14.4 mg/dL > or=20.0 pH 6.63 4.5 - 9.0 Oxidant NEGATIVE mcg/mL <200 Amphetamines NEGATIVE ng/mL <500 medMATCH Amphetamines CONSISTENT NRG Benzodiazepines NEGATIVE ng/mL <100 medMATCH Benzodiazepines INCONSISTENT NRG Marijuana Metabolite NEGATIVE ng/mL <20 medMATCH Marijuana Metab CONSISTENT NRG Cocaine Metabolite NEGATIVE ng/mL <150 medMATCH Cocaine Metab CONSISTENT NRG Opiates POSITIVE ng/mL <100 Oxycodone NEGATIVE ng/mL <100 medMATCH Oxycodone CONSISTENT NRG COMMENT NRG Codeine NEGATIVE ng/mL <50 medMATCH Codeine CONSISTENT NRG Hydrocodone 111 ng/mL <50 medMATCH Hydrocodone CONSISTENT NRG Hydromorphone 91 ng/mL <50 medMATCH Hydromorphone CONSISTENT NRG Morphine NEGATIVE ng/mL <50 medMATCH Morphine CONSISTENT NRG Norhydrocodone NEGATIVE ng/mL <50 medMATCH Norhydrocodone CONSISTENT NRG Prescribed Drug 2 Xanax(TM) NRG Specific [place] 1.007 > or=1.003 Encounters ACCT No. Visit Date/Time Discharge Status Pt. Type Provider Facility Loc./Unit Complaint [id number] 02/14/2018 08:59:00 02/14/2018 23:59:59 CLS Outpatient NAVDEEP BOYER RELIGION DEPARTMENT CHAIR [facility] [id number] 02/07/2018 09:11:00 02/07/2018 23:59:59 CLS Outpatient NAVDEEP BOYER RELIGION DEPARTMENT CHAIR [facility] [id number] 02/03/2018 13:15:00 02/03/2018 23:59:59 CLS Outpatient Curtis PATINO MD [facility] [id number] 01/31/2018 08:32:00 01/31/2018 23:59:59 CLS Outpatient NAVDEEP BOYER RELIGION DEPARTMENT CHAIR [facility] [id number] 01/24/2018 08:29:00 01/24/2018 23:59:59 CLS Outpatient MERLIN NAVDEEP R RELIGION DEPARTMENT CHAIR [facility] [id number] 01/17/2018 08:39:00 01/17/2018 23:59:59 CLS Outpatient MERLIN NAVDEEP R RELIGION DEPARTMENT CHAIR [facility] WOUNDCARE [id number] 01/10/2018 10:12:00 01/10/2018 23:59:59 CLS Outpatient MERLIN NAVDEEP R RELIGION DEPARTMENT CHAIR [facility] WOUNDCARE [id number] 12/15/2017 21:00:00 12/15/2017 23:59:59 CLS Preadmit Curtis PATINO MD [facility] SLEEP G47.33 OBSTRUCTIVE SLEEP APNEA [id number] 11/10/2017 07:13:00 11/10/2017 17:05:00 DIS Outpatient CAREY MCLEAN, Curtis MUNOZ [facility] CATH CHF,SOB [id number] 10/07/2017 12:30:00 10/11/2017 20:35:00 DIS Inpatient BRENDA MCLEAN, JEANMARIE Hays [facility] 4TH PERSISTENT PERIPHERAL EDEMA [id number] 09/20/2017 09:11:00 09/20/2017 12:36:00 DIS Emergency BERNABE MCLEAN, OBIE Gavin [facility] ER SWELLING [id number] 2016 10:47:00 2016 13:04:00 DIS Outpatient PEPITO MCLEAN, JP Diaz [facility] CARD HIP OSTEOARTHRITIS [id number] 11/15/2013 12:52:00 02/13/2014 00:01:00 DIS Outpatient JIMMY ESPINOZA DO [facility] CARD PALPITATIONS [id number] 11/14/2013 16:18:00 11/14/2013 18:27:00 DIS Emergency JIMMY ESPINOZA DO [facility] ER HEART [facility] [id number] 02/14/2014 13:00:00 Document Registration [id number] 02/06/2013 14:47:00 Document Registration [id number] 06/15/2012 15:02:00 Document Registration [id number] 04/22/2012 23:35:00 Document Registration [id number] 03/12/2012 04:12:00 Document Registration [id number] 12/25/2017 13:20:00 12/25/2017 23:59:59 CLS Outpatient YONAS BELLE APRN [facility] [id number] 01/03/2018 10:20:00 Document Registration [id number] 09/23/2017 10:20:00 Document Registration [id number] 01/17/2015 09:43:00 01/17/2015 23:59:59 CLS Outpatient CODY ACE APRN [id number] 01/15/2015 09:57:00 01/15/2015 23:59:59 CLS Outpatient CODY ACE APRN [id number] 01/15/2015 09:57:00 01/15/2015 23:59:59 CLS Outpatient CODY ACE APRN [id number] 03/18/2017 08:42:00 Document Registration
--- NOTE | 2018-02-17 18:09 | ED Cardiac General ---
History of Present Illness General Stated Complaint: HIGH BP Source: patient Exam Limitations: no limitations History of Present Illness Date Seen by Provider: Feb 17, 2018 Time Seen by Provider: 18:06 Initial Comments To ER with reports of high blood pressure. Patient states that his home blood pressure cuff measured 170 systolic, this alarmed him so he came to the emergency room. He denies chest pain or shortness of breath or palpitations. He has known nonischemic cardiomyopathy with patent epicardial vessels on November 10, 2017 with systolic congestive heart failure, ejection fraction of 20-25%. He is supposed to wear a LifeVest but arrives without this. He is scheduled to have an implanted pacemaker/AICD next 02/25/[address] Rivera. He is completely asymptomatic currently, states he is only concerned about the number on his blood pressure cuff at home. He states that his heart rate typically runs in the [address] Rivera is aware of this. Timing/Duration: 4-6 hours Associated Systoms: Denies Symptoms, Other (No symptoms) Allergies and Home Medications Allergies Coded Allergies: No Known Drug Allergies (Unverified , 03/12/12) Home Medications Alprazolam 0.5 Mg Tablet, 0.5 MG PO BID PRN for ANXIETY, (Reported) Furosemide 40 Mg Tablet, 80 MG PO DAILY Prescribed by: Curtis RIVERA on 11/10/17 1243 Hydrocodone/Acetaminophen 1 Each Tablet, 1 TAB PO Q6H PRN for PAIN-MODERATE, ( Reported) Lisinopril 40 Mg Tablet, 40 MG PO DAILY, (Reported) Metoprolol Succinate 50 Mg Tab.er.24h, 100 MG PO DAILY Prescribed by: Curtis RIVERA on 11/10/17 1244 Polyethylene Glycol 3350 255 Gm Powder, 17 GM PO DAILY PRN for CONSTIPATION-2ND LINE, (Reported) Potassium Chloride 20 Meq Tab.er.prt, 20 MEQ PO DAILY, (Reported) Spironolactone 25 Mg Tablet, 25 MG PO DAILY, (Reported) Trazodone HCl 50 Mg Tablet, 50 MG PO HS PRN for SLEEP, (Reported) Patient Home Medication List Home Medication List Reviewed: Yes Review of Systems Constitutional: no symptoms reported, see HPI EENTM: No Symptoms Reported Respiratory: No Symptoms Reported; Denies Cough, Denies Shortness of Air, Denies SOA With Exertion, Denies SOA at Rest Cardiovascular: No Symptoms Reported; Denies Chest Pain, Denies Irregular Heart Rate, Denies Lightheadedness, Denies Palpitations, Denies Syncope Gastrointestinal: No Symptoms Reported Genitourinary: No Symptoms Reported Musculoskeletal: no symptoms reported Skin: no symptoms reported Psychiatric/Neurological: No Symptoms Reported Endocrine: No Symptoms Reported Hematologic/Lymphatic: No Symptoms Reported Past Rhcenfq-Dqckhq-Ycjxie Hx Patient Social History Type Used: Smokeless Tobacco Recent Foreign Travel: No Contact w/Someone Who Travel: No Recent Hopitalizations: No Seasonal Allergies Seasonal Allergies: No Past Medical History Surgeries: Yes Respiratory: No Cardiac: Yes Hypertension Neurological: No Reproductive Disorders: No Genitourinary: No Gastrointestinal: No Musculoskeletal: Yes Rheumatoid Arthritis Endocrine: Yes HEENT: No Cancer: No Psychosocial: Yes Anxiety, Depression Integumentary: No Blood Disorders: No Adverse Reaction/Blood Tranf: No Family Medical History Cystic fibrosis FH: CABG (coronary artery bypass surgery) 19 FATHER FH: arrhythmia 19 MOTHER FH: congestive heart failure 19 FATHER G8 SISTER Myocardial infarction 19 FATHER Physical Exam Vital Signs Vital Signs - First Documented 02/17/18 17:50 Temp 98.3 Pulse 125 Resp 18 B/P (MAP) 115/73 (87) Pulse Ox 96 O2 Delivery Room Air Capillary Refill : General Appearance: No Apparent Distress, WD/WN, Obese HEENT: PERRL/EOMI, TMs Normal Neck: Full Range of Motion, Normal Inspection Respiratory: No Accessory Muscle Use, No Respiratory Distress Cardiovascular: Normal Peripheral Pulses, Gallop/S3, Tachycardia Gastrointestinal: Normal Bowel Sounds, Non Tender, Soft Extremity: Normal Capillary Refill, Normal Inspection, Pedal Edema (+1 bilateral lower family. No jugular venous distention.) Neurologic/Psychiatric: Alert, Oriented x3, No Motor/Sensory Deficits Skin: Normal Color, Warm/Dry Progress/Results/Core Measures My Orders Orders - MARIANN OJEDA APRN Cbc With Automated Diff (02/17/18 17:54) Comprehensive Metabolic Panel (02/17/18 17:54) BNP (02/17/18 17:54) Chest 1 View, Ap/Pa Only (02/17/18 17:54) Saline Lock/Iv-Start (02/17/18 17:54) Vital Signs/I&O 02/17/18 17:50 Temp 98.3 Pulse 125 Resp 18 B/P (MAP) 115/73 (87) Pulse Ox 96 O2 Delivery Room Air Departure Communication (Admissions) 1912- patient is still asymptomatic with a heart rate of 125 sinus without ectopy, blood pressure 112/68. He is concerned about an elevated blood pressure in the evening and states that Dr. Rivera has told him that he may need to have his medications adjusted. Impression Primary Impression: Cardiomyopathy Disposition: HOME, SELF-CARE Condition: Stable Departure-Patient Inst. Decision time for Depature: 18:46 Referrals: [facility] (PCP) Primary Care Physician YONAS BELLE (Family) Primary Care Physician Patient Instructions: NO INSTRUCTIONS GIVEN Add. Discharge Instructions: 1. Return to ER for any concerns 2. See Dr. Rivera next week for recheck 3. If your blood pressure is elevated at home in the evening with the top number over 130, you can take a metoprolol 25 mg tablet (this is 1/2 of your morning dose) Scripts Metoprolol Succinate (Toprol Xl) 25 Mg Tab.er.24h 25 MG PO HS, #5 TAB Prov: MARIANN OJEDA APRN 02/17/18 MARIANN OJEDA APRN Feb 17, 2018 18:09
[2018-02-17] MEDS ORDERED: METO-351 PO (19:17)
[2018-02-17 19:19] VITALS: BP 112/68
[2018-02-24] MEDS ORDERED: CEPH-507 PO (10:47)
== END 2018-02-17 19:21 | disposition home or self-care (01) ==
LOC: EDUNIT# 17:35 → ER 17:37
DX: I42.9 Cardiomyopathy, unspecified (principal); I11.0 Hypertensive heart disease with heart failure; I50.20 Unspecified systolic (congestive) heart failure; M06.9 Rheumatoid arthritis, unspecified; F41.9 Anxiety disorder, unspecified; F32.9 Major depressive disorder, single episode, unspecified; Z82.49 Family history of ischemic heart disease and other diseases of the circulatory system; Z95.810 Presence of automatic (implantable) cardiac defibrillator
CPT/HCPCS: 99283

== ENCOUNTER 2018-02-23 08:22 | Day surgery (SDC) | payer MEDICARE, MEDICAID ==
[~2018-02-23] VITALS: Ht 182.9 cm; Wt 153.9 kg
[~2018-02-23 08:22] MED LIST changes: +LIDOCAINE 1% INJ 20 ML 20 ML VIAL ONE; +METO-351 PO; +NS IV 1000 ML 2,000 ML ONE
[2018-02-23] MEDS ORDERED: NS IV 1000 ML 1,000 ML IV ONE (08:25)
[2018-02-23] MEDS ORDERED: HEParin 1000 UNIT/ML (10ML VIAL) FOR BOLUS ONE (08:29)
[2018-02-23] MEDS ORDERED: BACITRACIN INJECTION 50,000 UNIT, SODIUM CHLORIDE 0.9% IRRIGATIO 500 ML IR ONE ×2 (08:30)
[2018-02-23] MEDS ORDERED: ceFAZolin 1,000 MG (ANCEF) VIAL IV ONE (08:30)
[2018-02-23 08:39] VITALS: BP 130/93
[2018-02-23] MEDS ORDERED: ceFAZolin 1,000 MG (ANCEF) VIAL ONE (08:39)
[2018-02-23] MEDS ORDERED: NS (IVPB) 50 ML ONE (08:40)
[2018-02-23 08:54] LABS: HEMOGLOBIN 16.7 G/DL (13.3-17.7); MEAN PLATELET VOLUME 10.1 FL (7.4-10.4); RED BLOOD COUNT 6.5 10^6/uL (4.35-5.85); RED CELL DISTRIBUTION WIDTH 20.7 % (10.0-14.5)
[2018-02-23 09:05] LABS: INR 1.1 (0.8-1.4); PROTHROMBIN TIME PATIENT 14.4 SEC (12.2-14.7)
[2018-02-23] MEDS ORDERED: PRAV10TA PO (09:05)
[2018-02-23] MEDS ORDERED: METO-370 PO (09:05)
[2018-02-23] MEDS ORDERED: INSU100I29 SC (09:05)
[2018-02-23 09:12] LABS: ALANINE AMINOTRANSFERASE 25 U/L (0-55); ALBUMIN 4.1 GM/DL (3.2-4.5); ALKALINE PHOSPHATASE 125 U/L (40-136); BILIRUBIN,TOTAL 1.1 MG/DL (0.1-1.0); BUN/CREATININE RATIO 20; CARBON DIOXIDE 27 MMOL/L (21-32); CHLORIDE 97 MMOL/L (98-107); CHOLESTEROL 133 MG/DL (< 200); CREATININE SERUM 0.86 MG/DL (0.60-1.30); GFR ESTIMATED > 60; GLUCOSE 262 MG/DL (70-105); HDL CHOLESTEROL 38 MG/DL (40-60); POTASSIUM 4.4 MMOL/L (3.6-5.0); SODIUM 135 MMOL/L (135-145); TOTAL PROTEIN 9.3 GM/DL (6.4-8.2); TRIGLYCERIDES 68 MG/DL (<150); VLDL CHOLESTEROL 14 MG/DL (5-40)
[2018-02-23] MEDS ORDERED: FURO40TA4 PO (09:14)
[2018-02-23] MEDS ORDERED: fentaNYL INJECTION 100 MCG/2 ML AMP ONE ×2 (10:04→11:14)
[2018-02-23] MEDS ORDERED: MIDAZOLAM 5 MG/5 ML (VERSED) VIAL ONE ×2 (10:04→11:14)
[2018-02-23] MEDS ORDERED: diphenhydrAMINE 50 MG/ML INJ (BENADRYL) ONE (10:52)
[2018-02-23] MEDS ORDERED: proPOfol 200 MG/20 ML (DIPRIVAN) VIAL IV ONE (11:57)
--- NOTE | 2018-02-23 12:10 | Anesthesia-Procedure Note ---
Procedures/Interventions Procedure Start/Stop/Diagnosis Date of Procedure: February 23, 2018 Start Time: 11:55 Referring Physician: Dr. Rivera Preprocedural Diagnosis: Non-ischemic cardiomyopathy, EF 20-25% Brief History Anesthesia Note ([id number]) ASA Class: 3 Anesthesia Type: MAC/sedation Called to solder making laborer to assist with sedation for defibrillator function testing after placement. Pt was already given versed 6 mg IV, fentanyl 125 mcg IV and benadryl 50 mg IV prior to my arrival. VSS on my arrival and during my part of the sedation as well, including + EtCO2. I gave the patient an additional propofol 80 mg IV in divided doses for defibrillator testing. Pt tolerated the testing well and maintained stable VS throughout. Will be available if needed. Stop Time: 12:00 HIMANSHU MCCLELLAN DO February 23, 2018 12:10
[2018-02-23] MEDS ORDERED: NEO/POLY/BAC (NEOSPORIN) OINT 15 GM TUBE ONE (12:12)
[2018-02-23] MEDS ORDERED: NS IV 1000 ML 1,000 ML IV SCH (12:28)
--- NOTE | 2018-02-23 12:28 | Cardiac Procedure Note-CS/ASA ---
Pre-Procedure Note Pre-Op Procedure Note H&P Reviewed The H&P was reviewed, patient examined and no changes noted. Date H&P Reviewed: February 23, 2018 Time H&P Reviewed: 10:00 Conscious Sedation Pre-Proced Time Reviewed: 10:00 ASA Class: 3 Airway Mallampati Classification: (ruby appropriate class) I. II. III, IV Lungs Heart ASA score ASA 1: a normal healthy patient ASA 2: a patient with a mild systemic disease (mid diabetes, controlled hypertension, obesity ASA 3: a patient with a severe systemic disease that limits activity (angina , COPD, prior Myocardial infarction) ASA 4: a patient with an incapacitating disease that is a constant threat to life (CHF, renal failure) ASA 5: a moribund patient not expected to survive 24 hrs. (ruptured aneurysm) ASA 6: a declared brain patient whose organs are being harvested. For emergent operations, add the letter E after the classification Grade 1 Sedation Plan: Analgesia, Amnesia, Plan communicated to team members, Discussed options with patient/fam, Discussed risks with patient/fam Note The patient is an appropriate candidate to undergo the planned procedure, sedation, and anesthesia. The patient immediately re-assessed prior to indication. Curtis PATINO MD February 23, 2018 12:28 pm
[2018-02-23] MEDS ORDERED: PATIENT MAY USE OWN MEDS, ALL PO SCH (12:30)
--- NOTE | 2018-02-23 12:43 | Single Chamber ICD Implant ---
Single Chamber ICD Implant DATE OF SERVICE: 02/23/2018 SINGLE CHAMBER ICD IMPLANTATION CARDIAC [employer] SALES SUPERVISOR: Torsten Rivera MD INDICATION: Primary prevention for nonischemic cardiomyopathy. PREOPERATIVE DIAGNOSES: Primary prevention for nonischemic cardiomyopathy. POSTOPERATIVE DIAGNOSES: Successful single-chamber Biotronik ICD implantation. HISTORY: This is a 47-year-old gentleman who has history of nonischemic cardiomyopathy with an EF less than 30 percent. He is on optimal medical therapy for at least 3 months with no improvement in LVEF. [place] Heart Association class IIIII heart failure symptoms. He was on lifevest for primary prevention since first diagnosis of nonischemic cardiomyopathy. ICD implantation is recommended. PROCEDURE PERFORMED: 1. Single-chamber ICD implantation. 2. Left subclavian/axillary Venogram. 3. DFT testing. COMPLICATIONS: None. ESTIMATED BLOOD LOSS: 20 mL. SPECIMENS: None. ANESTHESIA: Conscious sedation. ORAL ANTICOAGULATION: None. FLUOROSCOPY TIME: 7.31 minutes. FLUOROSCOPY DOSE: 301 mgy. CONTRAST DOSE: 20 mL. PROCEDURE DETAILS: After all the questions were answered, an informed consent was taken. All the risks and complication were explained in detail. The patient was brought to the EP lab. The patient's right and left chest was prepped and draped in the usual sterile fashion. A 2-inch horizontal incision was made 1 cm below the clavicle and dissection carried down to the pectoralis fascia. IV antibiotics were administered prior to first incision. Due to morbid obesity, we were not able to gain access in the axillary vein. Therefore contrast was given through a left-sided antecubital vein and left axillary/subclavian venogram was performed. Under fluoroscopic guidance, access was gained in the axillary vein and a regular J-wire was placed. We then introduced a sheath into the axillary vein. A ICD lead was inserted. This is a Biotronik single-coiled ICD lead. The RV lead was inserted across the tricuspid valve to an apical septal portion of the RV. The screw was deployed and lead connected to the gameplay programmer. Good sensing and pacing thresholds were obtained. Diaphragmatic pacing was ruled out. The lead was secured with 2-0 Vicryl nonabsorbable sutures. The lead was secured to the underlying muscle and fascia. We then took an ICD generator and the lead was connected to the device in a hermetic fashion. The device and it was placed in the pocket. Aggressive irrigation with normal saline solution was done. Interrogation of the device revealed good integrity of the leads and connection. The wound was closed using 2 layers. The first layer was an interrupted 2-0 Vicryl. The second layer was an uninterrupted 4-0 Vicryl suture. Half inch Steri-Strips and a small dressing was then applied to the wound. DFT testing was done with anesthesia support. The induction mechanism was a T- shock. The first T-shock was at 280 milliseconds at one joule. VF was noted cycle length 152 ms. Charge time 5.5 seconds. First shock at 25 J failed to cardiovert. Second shock at 35 J, charge time 8.0 seconds successfully converted to sinus rhythm. DEVICE INFORMATION: Device: Inventra 7VRT DX [employer]. Reference number [id number]. Serial number [id number]. PID 86. RV lead: Plexa ProMRI DF-1 S DX 65/15 Biotronik. Reference number [id number]. Serial number [id number]. INTRAOPERATIVE DEVICE TESTING: RV lead sensing 15 mV. Impedance 804 ohms. Capture threshold 0.4 V at 0.4 ms. DEVICE INTERROGATION IMMEDIATELY POSTOP: RA sensing 20.6 mV. RV sensing 16.4 mV. Impedance 779 ohms. Threshold 0.4 V at 0.4 ms. Device setting: VVI 40. Single zone VF 222 BPM. PLAN: The patient will be observed for 23 hours. We will continue with two more dosages of IV antibiotics. We will check a chest x-ray and interrogate the device in the morning. An EKG will be done as well. If everything checks out, the patient will be discharged tomorrow. Torsten Rivera MD, [facility], CCDS Cardiac Electrophysiology Curtis RIVERA MD February 23, 2018 12:43 pm
--- NOTE | 2018-02-23 13:24 | Diagnostic Imaging Report ---
INDICATION: Defibrillator placement. TIME OF EXAM: 1:35 PM Correlation is made with prior study 10/08/2017. FINDINGS: Cardiac defibrillator has been placed. The heart is enlarged. No pneumothorax is identified. The lungs are clear. No effusion is seen. IMPRESSION: Defibrillator placement. No complicating features are detected. Dictated by: Dictated on workstation # [id number]
[2018-02-23] MEDS: ceFAZolin INJECTION 1,000 MG in NS (IVPB) 100 ML IV SCH ×2 (14:50→22:56)
[2018-02-23 16:00] VITALS: BP 98/74
[2018-02-24 03:36] LABS: RED BLOOD COUNT 6.17 10^6/uL (4.35-5.85); RED CELL DISTRIBUTION WIDTH 20.9 % (10.0-14.5); WHITE BLOOD COUNT 11.3 10^3/uL (4.3-11.0)
[2018-02-24 03:58] LABS: ALANINE AMINOTRANSFERASE 21 U/L (0-55); ALBUMIN 3.5 GM/DL (3.2-4.5); ALKALINE PHOSPHATASE 116 U/L (40-136); BILIRUBIN,TOTAL 1.2 MG/DL (0.1-1.0); BUN/CREATININE RATIO 25; CALCIUM 9.5 MG/DL (8.5-10.1); CARBON DIOXIDE 22 MMOL/L (21-32); CHLORIDE 99 MMOL/L (98-107); CREATININE SERUM 0.77 MG/DL (0.60-1.30); GFR ESTIMATED > 60; GLUCOSE 186 MG/DL (70-105); POTASSIUM 4.3 MMOL/L (3.6-5.0); SODIUM 133 MMOL/L (135-145); TOTAL PROTEIN 7.8 GM/DL (6.4-8.2)
[2018-02-24 04:00] VITALS: BP 126/100
[2018-02-24] MEDS: ceFAZolin INJECTION 1,000 MG in NS (IVPB) 100 ML IV SCH (05:37)
[2018-02-24 06:00] VITALS: BP 134/99
[2018-02-24 07:59] VITALS: BP 134/99
--- NOTE | 2018-02-24 10:45 | Cardiology Discharge Summary ---
Diagnosis/Chief Complaint Date of Admission 02/23/2018 Date of Discharge 02/24/2018 Admission Diagnosis Nonischemic cardiomyopathy Final/Discharge Diagnosis Nonischemic cardiomyopathy, status post single chamber ICD placement Chief Complaint/HPI Chief Complaint/HPI This is a 47-year-old gentleman with history of nonischemic cardiomyopathy, [place] Heart Association class III shortness of breath, ejection fraction 20-25 percent despite being on optimal medical therapy for at least 3 months. Single- chamber ICD is recommended. Discharge Summary Procedures Single chamber Biotronik ICD implanted on 02/23/2018 Discharge Physical Examination Left upper chest: No hematoma no swelling no bruising. Normal cardiovascular examination, Normal respiratory examination. Hospital Course Unremarkable Pending Labs Laboratory Tests 02/24/18 03:19: White Blood Count 11.3, Red Blood Count 6.17, Hemoglobin 16.0, Hematocrit 49, Mean Corpuscular Volume 79, Mean Corpuscular Hemoglobin 26, Mean Corpuscular Hemoglobin Concent 33, Red Cell Distribution Width 20.9, Platelet Count 195, Mean Platelet Volume 10.0, Sodium Level 133, Potassium Level 4.3, Chloride Level 99, Carbon Dioxide Level 22, Anion Gap 12, Blood Urea Nitrogen 19, Creatinine 0.77, Estimat Glomerular Filtration Rate > 60, BUN/Creatinine Ratio 25, Glucose Level 186, Calcium Level 9.5, Total Bilirubin 1.2, Aspartate Amino Transf (AST/SGOT) 24, Alanine Aminotransferase (ALT/SGPT) 21, Alkaline Phosphatase 116, Total Protein 7.8, Albumin 3.5 Radiology Reviewed Chest x-ray did not show any pneumothorax Discussion & Recommendations Discussion All discharge instructions were given to the patient. All questions were answered. Discharge took over 30 minutes to complete. Follow up appt.: Dr. Rivera in one week for wound check. Dicharge Diet: Cardiac Diet, Low Sodium Diet Activity as Tolerated: Yes Home Medications Reviewed patient Home Medication Reconciliation performed by pharmacy medication reconciliations senior telecommunications technician and/or nursing. Patients Allergies have been reviewed. Discharge Home Medications: Reviewed and agree with Discharge Medication list on patient's Discharge Instruction sheet Condition at discharge Stable Instructions to patient/family Discharge instructions provided to the patient and family Curtis RIVERA MD February 24, 2018 10:45
[2018-02-24] MEDS ORDERED: CEPH-507 PO (10:47)
--- NOTE | 2018-02-24 10:47 | Discharge Inst-Post Device ---
Discharge Inst-Post Device Follow up/Plan Follow with Dr. Rivera in one week for wound check. Heart Healthy Diet Do not lift arm on side of device placement above head for 4 weeks. Do not push and pull heavy objects for 4 weeks. Activity as tolerated. Leave dressing on until follow up at the office. Curtis RIVERA MD February 24, 2018 10:47
== END 2018-02-24 10:10 | disposition home or self-care (01) ==
LOC: CATH 08:22 → ICU 13:55 → CATH 02-24 10:10
PROVIDERS: ATTEND Internal Medicine Interventional Cardiology
DX: I42.9 Cardiomyopathy, unspecified (principal); I11.0 Hypertensive heart disease with heart failure; I50.22 Chronic systolic (congestive) heart failure; E11.9 Type 2 diabetes mellitus without complications; F17.220 Nicotine dependence, chewing tobacco, uncomplicated; I07.1 Rheumatic tricuspid insufficiency; E78.5 Hyperlipidemia, unspecified; E66.01 Morbid (severe) obesity due to excess calories; Z68.42 Body mass index [BMI] 45.0-49.9, adult; Z79.899 Other long term (current) drug therapy
CPT/HCPCS: 33249; 36415; 71045; 75820; 80053; 80061; 85027; 85610; 85730; 87081; 93005; 93641

== ENCOUNTER 2018-03-14 21:23 | Outpatient (CLI) | payer MEDICARE, MEDICAID ==
[~2018-03-14 21:23] MED LIST changes: +CEPH-507 PO; +INSU100I29 SC; -LIDOCAINE 1% INJ 20 ML 20 ML VIAL ONE; -NS IV 1000 ML 2,000 ML ONE
== END 2018-03-15 06:20 | disposition home or self-care (01) ==
LOC: SLEEP 21:23
PROVIDERS: ATTEND Internal Medicine Interventional Cardiology
DX: G47.33 Obstructive sleep apnea (adult) (pediatric) (principal); R06.83 Snoring
CPT/HCPCS: 95811

== ENCOUNTER 2018-05-22 13:06 | Outpatient (RCR) | payer MEDICARE, MEDICAID ==
[~2018-05-22 13:06] MED LIST changes: -SPIR25TA3 PO; +SPIR25TA5 PO; +TRAZ-189 PO; -TRAZ-28 PO; -VALS320T14 PO; +VALS320T15 PO
== END 2018-06-05 14:47 | disposition home or self-care (01) ==
PROVIDERS: ATTEND Pediatrics
DX: G89.29 Other chronic pain (principal)

== ENCOUNTER 2018-11-30 17:10 | Emergency (ER) | payer MEDICARE, MEDICAID ==
[~2018-11-30] VITALS: Ht 182.9 cm; Wt 149.7 kg
[~2018-11-30 17:10] MED LIST changes: -LOSA50TA36 PO; +LOSA50TA63 PO; +METF-397 PO; -METF500T5 PO; -POLY255P PO; +POLY255P16 PO
--- OUTSIDE RECORDS SUMMARY | 2018-11-30 17:17 | XMS REPORT | Clinical Summary ---
Author Author [facility] Organization [facility] Address Unknown Phone Unavailable Care Team Providers Care Suction Roller Name Role Phone No Pcp, Na PCP Unavailable Irma Murcia MD Unavailable Source Comments Some departments are not documenting in the electronic medical record. If you do not see the information that you expected, contact Release of Information in the Health Information Management department at [phone] for further assistance in locating additional records.[facility] Allergies Not on File Medications Not on file Active Problems Not on file Social History Date Tobacco Use Types Packs/Day Years Used Never Assessed Sex Assigned at Date Recorded Not on file Industry Job Start Date Occupation Not on file Not on file Not on file Travel End Travel History Travel Start No recent travel history available. Last Filed Vital Signs Not on file Plan of Treatment Health Maintenance Due Date Last Done Comments PHYSICAL (COMPREHENSIVE) 1979 EXAM HIV SCREENING 1987 DTAP/TDAP VACCINES ( - 1990 Tdap) INFLUENZA VACCINE 05/24/2018 Results Not on filefrom Last 3 Months Advance Directives Patient has advance care planning documents on file. For more information, please contact: [facility] [address] [place] [address]
--- OUTSIDE RECORDS SUMMARY | 2018-11-30 17:18 | XMS REPORT ---
Author Author PIA TRAVIS [facility] Address [address] [place] [address] Care Team Providers Care Mapping Editor Name Role Phone PIA TRAVIS Unavailable PROBLEMS Type Condition ICD9-CM Code OUG08-XL Code Onset Dates Condition Status SNOMED Code Problem Primary insomnia F51.01 Active 4860289 Problem Constipation, unspecified constipation type K59.00 Active 01881396 Problem Mixed hyperlipidemia E78.2 Active 980588802 Problem Type 2 diabetes mellitus 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, unspecified whether fci insulin use E11.40 Active 73048305 Problem Controlled substance agreement terminated Z91.14 Active 111069797 Problem Major depressive disorder, recurrent, in full remission F33.42 Active 535766514 Problem Stasis dermatitis of both legs I87.2 Active 98817676 Problem BMI 50.0-59.9, adult Z68.43 Active 804797800 Problem Lymphedema I89.0 Active 777692948 Problem Chronic systolic congestive heart failure I50.22 Active 411284477 Problem Panic disorder F41.0 Active 186328012 Problem Chronic pain G89.29 Active 12409502 Problem Cardiomegaly I51.7 Active 6033966 Problem Abnormal liver function test R94.5 Active 311288415 Problem BPH (benign prostatic hyperplasia) N40.0 Active 273914944 Problem Dysthymic disorder F34.1 Active 59662325 Problem HTN (hypertension) I10 Active 82761433 Problem Mild episode of recurrent major depressive disorder F33.0 Active 503505332 Problem Degenerative disc disease at L5-S1 level M51.36 Active 45451269 Problem 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.22 Active 74142842 ALLERGIES No Information ENCOUNTERS Encounter Location Date Diagnosis [facility] [address] [facility] [id number] [address] Nov, [facility] [id number] [address] Oct, [facility] [address] [address] Oct, [facility] [address] [address] Sep, [facility] [id number] [address] Sep, [facility] [id number] [place] [address] 68249- 6733 Sep, Mild episode of recurrent major depressive disorder F33.0 and 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.22 [facility] [id number] [place] [address] 91406- 0396 18 Sep, 2018 [facility] [id number] [address] Sep, [facility] [id number] [address] [address] Sep, [facility] [address] [address] [address] Sep, Mild episode of recurrent major depressive disorder F33.0 and BMI 40.0-44.9, adult Z68.41 [facility] [address] [address] 6[address] Aug, [facility] [address] Aug, [facility] [id number] [address] Aug, Onychomycosis B35.1 and Type 2 diabetes mellitus 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, unspecified whether manager long term care insulin use E11.40 [facility] [address] [address] 0[address] Aug, [facility] [address] [address] 09[address] Jul, 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.22 ; Mild episode of recurrent major depressive disorder F33.0 and BMI 40.0-44.9, adult Z68.41 [facility] [id number] [place] [address] 48629- 7969 Jul, [facility] [id number] [place] [address] 09902- 2758 Jul, 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.22 [facility] [id number] [place] [address] 55290- 4466 Jul, [facility] [address] 71227- 6508 Jul, 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.22 [facility] [id number] [place] [address] 36257- 6666 Jul, Chronic systolic congestive heart failure I50.22 and Mixed hyperlipidemia E78.2 [facility] [id number] [place] [address] 77661- 0615 Jun, [facility] [address] 26444- 2852 Jun, 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.22 [facility] [id number] [place] [address] 91493- 8385 Jun, Onychomycosis B35.1 ; Self-care deficit for hygiene R46.0 and Nail hypertrophy L60.2 [facility] [id number] [place] [address] 87678- 2889 Jun, Dental examination Z01.20 [facility] [id number] [place] [address] 01719- 1692 Jun, Tooth infection K04.7 ; BMI 40.0-44.9, adult Z68.41 and Mouth pain K13.79 [facility] [address] 77542- 2882 Jun, 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.22 [facility] [id number] [place] [address] 49618- 0651 May, Degenerative disc disease at L5-S1 level M51.36 ; Chronic pain G89.29 and BMI 40.0-44.9, adult Z68.41 [facility] [id number] [place] [address] 29298- 2154 May, [facility] [id number] [place] [address] 68042- 2618 May, 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.22 [facility] [id number] [place] [address] 10313- 6738 May, [facility] [id number] [place] [address] 53022- 6026 May, Degenerative disc disease at L5-S1 level M51.36 [facility] [id number] [place] [address] 24180- 0926 May, [facility] [id number] [place] [address] 47409- 8221 May, [facility] [id number] [place] [address] 86525- 4583 May, [facility] [id number] [place] [address] 55935- 3055 Apr, 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.22 ; Chronic pain G89.29 ; Major depressive disorder, recurrent, in full remission F33.42 ; HTN (hypertension) I10 ; Chronic systolic congestive heart failure I50.22 ; Mixed hyperlipidemia E78.2 and BMI 45.0-49.9, adult Z68.42 [facility] [id number] [place] [address] 08453- 0062 Apr, 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.22 [facility] [id number] [place] [address] 91237- 2073 Apr, Medicare annual wellness visit, initial Z00.00 ; 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.22 ; BMI 50.0-59.9, adult Z68.43 ; Mild episode of recurrent major depressive disorder F33.0 ; Panic disorder F41.0 ; Chronic pain G89.29 ; Lymphedema I89.0 ; Chronic systolic congestive heart failure I50.22 ; HTN (hypertension) I10 ; Degenerative disc disease at L5-S1 level M51.36 ; BMI 45.0-49.9, adult Z68.42 ; Major depressive disorder, recurrent, in full remission F33.42 ; Refused influenza vaccine Z28.21 ; Refused pneumococcal vaccine Z28.21 and Encounter for immunization Z23 [place] [id number] [place] [address] 60345- 0276 Apr, [place] [id number] [place] [address] 42591- 9615 Mar, 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.22 [facility] [id number] [place] [address] 36286- 1236 13 Mar, 2018 Chronic pain G89.29 [place] [id number] [place] [address] 72640- 1640 February, Chronic pain G89.29 ; Abnormal liver function test R94.5 and Degenerative disc disease at L5-S1 level M51.36 [facility] [id number] [place] [address] 36561- 3437 Jan, [facility] [id number] [place] [address] 89560- 9762 Jan, [facility] [id number] [place] [address] 09589- 4522 Jan, [facility] [id number] [place] [address] 18265- 8624 Jan, Abnormal liver function test R94.5 ; Dysthymic disorder F34.1 and Chronic pain G89.[id number] [place] [address] 61444- 7748 Dec, [facility] [id number] [place] [address] 29792- 2982 Dec, HTN (hypertension) I10 ; BMI 45.0-49.9, adult Z68.42 ; Chronic pain G89.29 ; Primary insomnia F51.01 ; Mixed hyperlipidemia E78.2 ; Dysthymic disorder F34.1 ; 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.22 ; Stasis dermatitis of both legs I87.2 and Chronic systolic congestive heart failure I50.22 [facility] [id number] [place] [address] 97298- 2491 Dec, Chronic pain G89.29 [facility] [id number] [place] [address] 31179 -5803 Dec, Lymphedema I89.0 and Chronic systolic congestive heart failure I50.22 [facility] [id number] [place] [address] 76008- 0788 Dec, [facility] [id number] [place] [address] 90202- 7743 Nov, 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.22 [facility] [id number] [place] [address] 93663- 7239 Nov, Chronic pain G89.29 and Dysthymic disorder F34.1 [facility] [id number] [place] [address] 47000- 9484 Nov, [facility] [id number] [place] [address] 67425- 3289 Oct, HTN (hypertension) I10 ; Chronic pain G89.29 ; BMI 45.0-49.9 , adult Z68.42 ; Primary insomnia F51.01 ; Mixed hyperlipidemia E78.2 ; Dysthymic disorder F34.1 ; 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.22 ; Chronic congestive heart failure, unspecified congestive heart failure type I50.9 ; Acute non-recurrent maxillary sinusitis J01.00 and BMI 50.0-59.9, adult Z68.43 [facility] [id number] [place] [address] 24636- 8748 Oct, HTN (hypertension) I10 and Dysthymic disorder F34.1 [facility] [id number] [place] [address] 15482- 4000 Oct, [facility] [id number] [place] [address] 77447- 7827 Oct, HTN (hypertension) I10 [facility] [id number] [place] [address] 94739- 9578 Oct, Chronic pain G89.29 [facility] [id number] [place] [address] 14866- 9897 Sep, [facility] [address] 55664- 6714 Sep, HTN (hypertension) I10 ; Chronic pain G89.29 ; BMI 45.0-49.9 , adult Z68.42 ; Primary insomnia F51.01 ; Mixed hyperlipidemia E78.2 ; Dysthymic disorder F34.1 and 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.22 [facility] [id number] [place] [address] 47775- 1124 18 Sep, 2017 Chronic pain G89.29 [facility] [id number] [place] [address] 85261- 3426 Sep, Acute on chronic heart failure, unspecified heart failure type I50.9 [facility] [id number] [place] [address] 34209- 2546 06 Sep, 2017 Acute on chronic heart failure, unspecified heart failure type I50.9 ; 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.22 and BMI 50.0-59.9, adult Z68.43 [facility] [id number] [place] [address] 82611- 9062 Sep, Acute on chronic heart failure, unspecified heart failure type I50.9 ; HTN (hypertension) I10 and 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.22 [facility] [id number] [place] [address] 87405- 2561 Aug, Acute on chronic heart failure, unspecified heart failure type I50.9 ; HTN (hypertension) I10 ; 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.22 ; Cellulitis of right lower extremity L03.115 and BMI 50.0-59.9, adult Z68.43 [facility] [id number] [place] [address] 04627 -6045 Aug, Acute upper respiratory infection, unspecified J06.9 ; Other viral agents as the cause of diseases classified elsewhere B97.89 ; Constipation, unspecified constipation type K59.00 ; BMI 50.0-59.9, adult Z68.43 and BMI 60.0-69.9, adult Z68.44 [facility] [id number] [place] [address] 31812- 5511 Aug, Chronic pain G89.29 [facility] [id number] [place] [address] 84698- 0557 Jul, Chronic pain G89.29 [facility] [id number] [place] [address] 59686- 8973 Jul, Chronic pain G89.29 [facility] [id number] [place] [address] 57477- 7044 Jun, Chronic pain G89.29 [facility] [id number] [place] [address] 55133- 4409 Jun, [facility] [id number] [place] [address] 57991- 0757 Jun, Chronic pain G89.29 [facility] [id number] [place] [address] 60234- 4384 May, Chronic pain G89.29 and 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.22 [facility] [id number] [place] [address] 67604- 7371 16 May, 2017 [facility] [address] 17965- 9615 11 May, 2017 Chronic pain G89.29 and Anxiety F41.9 [facility] [address] 64045- 1166 10 May, 2017 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.22 ; Social phobia F40.10 ; Morbid obesity E66.01 ; Chronic pain G89.29 ; HTN (hypertension) I10 ; Degenerative disc disease at L5-S1 level M51.36 ; BPH (benign prostatic hyperplasia) N40.0 ; Pain in right knee M25.561 and 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 [place] [facility] [address] 64362- 1184 Apr, Anxiety F41.9 [place] [address] 38313- 7909 Apr, [facility] [address] 49495- 7387 Mar, [place] [address] 50263- 2002 Mar, Edema, unspecified type R60.9 and Anxiety F41.9 [facility] [address] 88973- 9791 Mar, Social phobia F40.10 ; Mixed obsessional thoughts and acts F42.2 and Mild episode of recurrent major depressive disorder F33.0 [facility] [address] 00857- 0752 Mar, Degenerative disc disease at L5-S1 level M51.36 [facility] [id number] [place] [address] 93122- 9332 13 Mar, 2017 [place] [address] 06732- 2396 Mar, [facility] [id number] [place] [address] 92180- 0238 Mar, [facility] [id number] [place] [address] 67093- 1571 February, Morbid obesity E66.01 ; Anxiety F41.9 ; Degenerative disc disease at L5-S1 level M51.36 ; BPH (benign prostatic hyperplasia) N40.0 ; Social phobia F40.10 ; HTN (hypertension) I10 ; Edema, unspecified type R60.9 and Screening cholesterol level Z13.220 [place] [id number] [place] [address] 66619- 9599 February, Social phobia, generalized F40.11 [place] [id number] [place] [address] 17530- 4400 February, Chronic pain G89.29 [place] [id number] [place] [address] 99293- 9852 February, [facility] [id number] [place] [address] 58131- 3740 Jan, Chronic pain G89.29 [facility] [id number] [place] [address] 95149- 6160 Jan, Panic disorder [episodic paroxysmal anxiety] without agoraphobia F41.0 [place] [id number] [place] [address] 89160- 5138 Dec, Morbid obesity E66.01 ; Anxiety F41.9 ; Chronic pain G89.29 ; HTN (hypertension) I10 ; BPH (benign prostatic hyperplasia) N40.0 ; Generalized edema R60.1 and Cough R05 [place] [id number] [place] [address] 04694- 8522 14 Nov, 2016 Chronic pain G89.29 [place] [id number] [place] [address] 26610- 2845 03 Nov, 2016 Social phobia, generalized F40.11 and Mild episode of recurrent major depressive disorder F33.0 [facility] [address] [address]- 7223 Oct, Chronic pain G89.29 [facility] [id number] [place] [address] 28909- 4339 Oct, Social phobia, generalized F40.11 [facility] [id number] [place] [address] 68618- 8507 Sep, [facility] [id number] [place] [address] 59955- 6905 Sep, [facility] [id number] [place] [address] 47609- 8041 Sep, [facility] [id number] [place] [address] 48034- 0872 Sep, [facility] [id number] [place] [address] 49717- 0560 Sep, [facility] [address] [place] [address] 34962- 0367 Sep, Social phobia, generalized F40.11 and Mild episode of recurrent major depressive disorder F33.0 [facility] [address] [address]- 2191 Sep, [facility] [id number] [place] [address] 81800- 9774 Aug, [facility] [id number] [place] [address] 95695- 5300 Aug, [facility] [id number] [place] [address] 50369- 0110 Aug, Bronchitis J40 [facility] [id number] [place] [address] 34911- 8389 15 Aug, 2016 [facility] [id number] [place] [address] 57265- 5825 Aug, Osteoarthritis of knee, unspecified M17.9 [facility] [id number] [address]- 3317 Aug, Morbid obesity E66.01 ; Chronic pain G89.29 ; Anxiety F41.9 ; Social phobia F40.10 ; HTN (hypertension) I10 ; Social phobia, generalized F40.11 ; Acute upper respiratory infection, unspecified J06.9 and Other viral agents as the cause of diseases classified elsewhere B97.89 [facility] [id number] [place] [address] 48396- 4282 Aug, Social phobia, generalized F40.11 and Dysthymic disorder F34.1 [facility] [id number] [place] [address] 56710- 6003 Jul, [facility] [id number] [place] [address] 39297- 0482 Jun, [facility] [id number] [place] [address] 31194- 2695 May, [facility] [id number] [place] [address] 80135- 2658 May, [facility] [id number] [place] [address] 39955- 8473 May, [facility] [id number] [place] [address] 16357- 9434 May, [facility] [id number] [place] [address] 19442- 5167 May, [facility] [id number] [place] [address] 22069- 9815 May, [facility] [id number] [place] [address] 06567- 2979 May, [facility] [id number] [place] [address] 63847- 4782 Apr, [facility] [id number] [place] [address] 52068- 1922 07 Apr, 2016 Chondromalacia, right knee M94.261 [facility] [id number] [place] [address] 77657- 3572 Apr, Pain in unspecified hip M25.559 [facility] [id number] [place] [address] 59611- 7334 Mar, Social phobia, unspecified F40.10 and Pain in unspecified hip M25.559 [facility] [id number] [place] [address] 23968- 6691 February, [place] [address] 54869- 8677 February, Social phobia F40.10 [place] [place] [id number] [place] [address] 38261- 7318 February, Morbid obesity E66.01 ; Chronic pain G89.29 ; Social phobia F40.10 ; Pelvic pain in male R10.2 ; HTN (hypertension) I10 ; Degenerative disc disease at L5-S1 level M51.36 ; BPH (benign prostatic hyperplasia) N40.0 and Pain in right knee M25.561 [facility] [id number] [place] [address] 19942- 8473 14 Jan, 2016 [facility] [id number] [place] [address] 58368- 3291 13 Jan, 2016 [facility] [id number] [place] [address] 84331- 0837 Jan, [facility] [id number] [place] [address] 14555- 1015 17 Dec, 2015 [place] [id number] [place] [address] 36505- 6518 16 Dec, 2015 [facility] [id number] [place] [address] 54068- 3798 Dec, [facility] [address] [place] [address]23[address] 29 Nov, 2015 Strep pharyngitis J02.0 ; Influenza A J10.1 and Cough R05 [facility] [address] 12399- 0323 18 Nov, 2015 [facility] [address] 02347- 5314 Nov, [facility] [address] 95714- 4814 Oct, HTN (hypertension) I10 ; Morbid obesity E66.01 ; Anxiety F41.9 ; Social phobia F40.10 ; Panic disorder F41.0 ; Degenerative disc disease at L5-S1 level M51.36 and Hypercholesterolemia E78.0 [facility] [address] 30609- 6455 Oct, Panic disorder [episodic paroxysmal anxiety] without agoraphobia F41.0 and Social phobia, generalized F40.11 [facility] [id number] [place] [id number] Oct, [facility] [id number] [place] [id number]- [address] Sep, [facility] [id number] [place] [id number]- [address] Sep, [facility] [address] [address] Sep, [facility] [id number] [place] [id number]- [phone] Sep, [facility] [address] [address] Aug, [facility] [id number] [place] [id number] Aug, [facility] [address] [address] Aug, [facility] [id number] [place] [address]- [address] Aug, Social phobia F40.10 and Panic disorder F41.0 [facility] [id number] [place] [id number]- [address] Aug, [facility] [id number] [place] [address] 96[address]- [address] Aug, [facility] [id number] [place] [address]- [address] Aug, [facility] [id number] [place] [address] 81047- [address] Aug, [facility] [id number] [place] [address] 9[address]- [address] Jul, [facility] [id number] [place] [address]- [address] Jul, Morbid obesity E66.01 ; Chronic pain G89.29 ; Anxiety F41.9 ; Social phobia F40.10 ; Panic disorder F41.0 ; Pelvic pain in male R10.2 ; Insomnia G47.00 and HTN (hypertension) I10 [facility] [id number] [place] [address] 52476- 3871 Jul, [facility] [id number] [place] [address] 50406- 3430 Jul, [facility] [id number] [place] [address] 62250- 5218 16 Jun, 2015 Degenerative disc disease 722.6 [facility] [id number] [place] [address] 81716- 2448 Jun, Pain in joint, pelvic region and thigh 719.45 ; Morbid obesity 278.01 ; Essential hypertension, benign 401.1 and Constipation 564.00 [facility] [id number] [place] [address] 29181- 1027 May, [facility] [id number] [address] May, [facility] [id number] [place] [address] 79928- 3166 May, [facility] [id number] [place] [address] 04860- 6562 May, [facility] [id number] [place] [address] 32679- 7700 May, [facility] [id number] [place] [address] 37967- 2140 May, [facility] [id number] [place] [address] 21002- 9836 May, Essential hypertension, benign 401.1 ; Anxiety state, unspecified 300.00 ; Panic disorder without agoraphobia 300.01 ; Social phobia 300.23 ; Morbid obesity 278.01 ; Other chronic pain 338.29 and Insomnia 780.52 [facility] [id number] [place] [address] 77746- 9065 May, Essential hypertension 401.9 [facility] [id number] [place] [address] 34961- 7027 May, Pain in joint, pelvic region and thigh 719.45 [facility] [id number] [place] [address] 00950- 4221 May, Essential hypertension, benign 401.1 [facility] [id number] [place] [address] 33624- 2559 May, Panic disorder without agoraphobia 300.01 and Social phobia 300.23 [facility] [id number] [place] [address] 66967- 3064 May, [facility] [id number] [place] [address] 09270- 1795 May, [facility] [id number] [place] [address] 12921- 9074 Apr, Chronic pain 338.29 [facility] [id number] [address] 7076 Apr, 2014 [facility] [id number] [address] 2085 Apr, 2014 [facility] [id number] [address] 6711 Apr, 2014 [facility] [id number] [place] [address] 76289- 2108 Apr, 2014 [facility] [id number] [place] [address] 05527- 3600 Apr, 2014 [facility] [id number] [address] 1424 Apr, 2014 [facility] [id number] [place] [address] 55199- 9841 Apr, 2014 [facility] [id number] [address] 8581 Apr, Essential hypertension, benign 401.1 ; Morbid obesity 278.01 ; Anxiety state, unspecified 300.00 ; Panic disorder without agoraphobia 300.01 ; Social phobia 300.23 and Chronic pain 338.29 [facility] [id number] [address] 5541 Mar, [facility] [id number] [address] 7673 Mar, [facility] [id number] [address] 9158 Mar, [facility] [id number] [address] 4905 Mar, [facility] [id number] [address]- 1611 Mar, Social phobia 300.23 and Panic disorder without agoraphobia 300.01 [facility] [id number] [address] 4630 Mar, [facility] [id number] [place] [address] 25827- 2155 February, [facility] [id number] [place] [address] [id number]- 6671 February, Major depression, recurrent 296.30 and No condition on Alvarado II V71.09 [facility] [id number] [place] [address] 78153- 9353 February, [facility] [id number] [place] [address] 65452- 9149 February, Panic disorder without agoraphobia 300.01 ; Social phobia 300.23 and Morbid obesity 278.01 [facility] [id number] [place] [address] 33504- 4285 Jan, [facility] [id number] [place] [address] 28733- 5969 Jan, [facility] [id number] [place] [address] 18508- 1750 Dec, [facility] [id number] [place] [address] 85617- 0292 Dec, [facility] [id number] [address]- 7960 Dec, [facility] [id number] [place] [address] 11574- 5109 Dec, [facility] [id number] [address]- 1446 Dec, [facility] [id number] [place] [address] 76384- 1341 Dec, [facility] [id number] 6474 Dec, [facility] [id number] [place] [address] 92166- 3286 Dec, [facility] [id number] [address]- 3569 Dec, [facility] [address] [facility] [id number] [address]- 2163 Dec, [facility] [id number] [address]- 1510 Dec, [facility] [address] [facility] [id number] 0444 Dec, [facility] [id number] [address]- 6012 Dec, [facility] [id number] [address]- 1584 Dec, [facility] [id number] [address]- 3386 Dec, [facility] [id number] [address]- 9098 Dec, IMMUNIZATIONS No Known Immunizations SOCIAL HISTORY Never Assessed REASON FOR VISIT Medication reaction PLAN OF CARE VITAL SIGNS MEDICATIONS Unknown [...] insomnia Medical History Controlled substance agreement terminated Medical History Cardiomegaly Medical History CHF Surgical History Heart Cath-no stent placement 10/2017 Surgical History Pacemaker placed 02/2018 Hospitalization History ER visit due to panic attacks Hospitalization History chest pain Hospitalization History ER -edema 08/2017
--- OUTSIDE RECORDS SUMMARY | 2018-11-30 17:18 | XMS REPORT ---
Author Author ROSE MARY BUCKNER [facility] Address [address] [place] [address] Care Team Providers Care Early Childhood Coordinator Name Role Phone ISA BUCKNERTA Unavailable PROBLEMS Type Condition ICD9-CM Code YDH70-DI Code Onset Dates Condition Status SNOMED Code Problem Primary insomnia F51.01 Active 3389935 Problem Constipation, unspecified constipation type K59.00 Active 47531314 Problem Mixed hyperlipidemia E78.2 Active 184321147 Problem Type 2 diabetes mellitus 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, unspecified whether intermediate insulin use E11.40 Active 28664166 Problem Controlled substance agreement terminated Z91.14 Active 898939368 Problem Major depressive disorder, recurrent, in full remission F33.42 Active 106621341 Problem Stasis dermatitis of both legs I87.2 Active 64794723 Problem BMI 50.0-59.9, adult Z68.43 Active 185409870 Problem Lymphedema I89.0 Active 187804504 Problem Chronic systolic congestive heart failure I50.22 Active 101984804 Problem Panic disorder F41.0 Active 179393450 Problem Chronic pain G89.29 Active 88672901 Problem Cardiomegaly I51.7 Active 1440581 Problem Abnormal liver function test R94.5 Active 236031030 Problem BPH (benign prostatic hyperplasia) N40.0 Active 325135679 Problem Dysthymic disorder F34.1 Active 36468671 Problem HTN (hypertension) I10 Active 57052892 Problem Mild episode of recurrent major depressive disorder F33.0 Active 814673409 Problem Degenerative disc disease at L5-S1 level M51.36 Active 28303852 Problem 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.22 Active 89666492 ALLERGIES No Information ENCOUNTERS Encounter Location Date Diagnosis [facility] [address] [facility] [id number] [address] Nov, [facility] [address] [facility] [id number], [place] [address] Oct, [facility] [address] Oct, [facility] [address] [address] Sep, [facility] [address] Sep, [facility] [id number] [place] [address] 37748- 7358 Sep, Mild episode of recurrent major depressive disorder F33.0 and 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.22 [facility] [id number] [place] [address] 610082- 5616 Sep, [facility] [id number] [address] Sep, [facility] [id number] [place] [address] 619105- 7344 Sep, [facility] [address], [place] [address] 7[address] Sep, Mild episode of recurrent major depressive disorder F33.0 and BMI 40.0-44.9, adult Z68.41 [facility] [address], [place] [address] 0[address] Aug, [facility] [id number] [address] 2440 Aug, [facility] [address] [address] [address] Aug, Onychomycosis B35.1 and Type 2 diabetes mellitus 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, unspecified whether intermediate accountant insulin use E11.40 [facility] [address] [address] Aug, [facility] [address] Jul, 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.22 ; Mild episode of recurrent major depressive disorder F33.0 and BMI 40.0-44.9, adult Z68.41 [facility] [id number] [place] [address] 10893- 2925 Jul, [facility] [id number] [place] [address] 50541- 7505 Jul, 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.22 [facility] [id number] [place] [address] 92289- 9680 Jul, [facility] [address] 11019- 0100 Jul, 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.22 [facility] [address] 89656- 2214 Jul, Chronic systolic congestive heart failure I50.22 and Mixed hyperlipidemia E78.2 [facility] [id number] [place] [address] 42648- 4735 Jun, [facility] [address] 22941- 2760 Jun, 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.22 [facility] [id number] [place] [address] 49571- 6372 Jun, Onychomycosis B35.1 ; Self-care deficit for hygiene R46.0 and Nail hypertrophy L60.2 [facility] [id number] [place] [address] 47039- 1170 Jun, Dental examination Z01.[address] 17289- 4261 Jun, Tooth infection K04.7 ; BMI 40.0-44.9, adult Z68.41 and Mouth pain K13.79 [place] [id number] [place] [address] 62489- 0731 Jun, 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.22 [facility] [address], [place] [address]- 1431 May, Degenerative disc disease at L5-S1 level M51.36 ; Chronic pain G89.29 and BMI 40.0-44.9, adult Z68.41 [facility] [id number] [place] [address] 96081- 6827 May, [facility] [id number] [place] [address] 90364- 1221 May, 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.22 [facility] [id number] [place] [address] 80377- 4807 May, [facility] [id number] [place] [address] 01616- 1441 May, Degenerative disc disease at L5-S1 level M51.36 [facility] [id number] [place] [address] 83692- 4981 May, [facility] [id number] [place] [address] 84587- 0107 May, [facility] [id number] [place] [address] 73504- 8651 May, [facility] [address], [place] [address]- 8323 Apr, 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.22 ; Chronic pain G89.29 ; Major depressive disorder, recurrent, in full remission F33.42 ; HTN (hypertension) I10 ; Chronic systolic congestive heart failure I50.22 ; Mixed hyperlipidemia E78.2 and BMI 45.0-49.9, adult Z68.42 [facility] [address], [place] [address] 4128 Apr, 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.22 [facility] [id number] [place] [address] 72846- 3693 Apr, Medicare annual wellness visit, initial Z00.00 [...] vaccine Z28.21 and Encounter for immunization Z23 [place] [id number] [place] [address] 30298- 5039 Apr, [address] 57513- 1085 Mar, 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.22 [facility] [id number] [place] [address] 48982- 8271 13 Mar, 2018 Chronic pain G89.29 [place] [id number] [place] [address] 51971- 9953 February, Chronic pain G89.29 ; Abnormal liver function test R94.5 and Degenerative disc disease at L5-S1 level M51.36 [place] [id number] [place] [address] 43455- 8591 Jan, [facility] [id number] [place] [address] 63623- 2143 Jan, [facility] [id number] [place] [address] 40082- 3356 Jan, [place] [id number] [place] [address] 74778- 2415 Jan, Abnormal liver function test R94.5 ; Dysthymic disorder F34.1 and Chronic pain G89.29 [place] [address]- 9438 13 Dec, 2017 [facility] [id number] [place] [address] 46455- 2368 Dec, HTN (hypertension) I10 ; BMI 45.0-49.9, adult Z68.42 ; Chronic pain G89.29 ; Primary insomnia F51.01 ; Mixed hyperlipidemia E78.2 ; Dysthymic disorder F34.1 ; 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.22 ; Stasis dermatitis of both legs I87.2 and Chronic systolic congestive heart failure I50.22 [facility] [id number] [place] [address] 64064- 8296 Dec, Chronic pain G89.29 [facility] [id number] [place] [address] 93138 -3377 Dec, Lymphedema I89.0 and Chronic systolic congestive heart failure I50.22 [facility] [id number] [place] [address] 61925- 5030 Dec, [facility] [id number] [place] [address] 73174- 0530 Nov, 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.22 [facility] [id number] [place] [address] 64464- 7145 Nov, Chronic pain G89.29 and Dysthymic disorder F34.1 [facility] [id number] [place] [address] 14817- 5020 Nov, [facility] [id number] [place] [address] 14379- 7916 Oct, HTN (hypertension) I10 ; Chronic pain G89.29 ; BMI 45.0-49.9 , adult Z68.42 ; Primary insomnia F51.01 ; Mixed hyperlipidemia E78.2 ; Dysthymic disorder F34.1 ; 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.22 ; Chronic congestive heart failure, unspecified congestive heart failure type I50.9 ; Acute non-recurrent maxillary sinusitis J01.00 and BMI 50.0-59.9, adult Z68.43 [facility] [id number] [place] [address] 37435- 1636 Oct, HTN (hypertension) I10 and Dysthymic disorder F34.1 [facility] [id number] [place] [address] 73145- 1845 Oct, [facility] [id number] [place] [address] 73442- 2438 Oct, HTN (hypertension) I10 [facility] [id number] [place] [address] 79560- 7576 Oct, Chronic pain G89.29 [facility] [id number] [place] [address] 33042- 7803 Sep, [facility] [id number] [place] [address] 93727- 3553 Sep, HTN (hypertension) I10 ; Chronic pain G89.29 ; BMI 45.0-49.9 , adult Z68.42 ; Primary insomnia F51.01 ; Mixed hyperlipidemia E78.2 ; Dysthymic disorder F34.1 and 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.22 [facility] [id number] [place] [address] 22787- 1761 18 Sep, 2017 Chronic pain G89.29 [facility] [id number] [place] [address] 35057- 5508 Sep, Acute on chronic heart failure, unspecified heart failure type I50.9 [facility] [id number] [place] [address] 23923- 1645 06 Sep, 2017 Acute on chronic heart failure, unspecified heart failure type I50.9 ; 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.22 and BMI 50.0-59.9, adult Z68.43 [facility] [id number] [place] [address] 29903- 3817 Sep, Acute on chronic heart failure, unspecified heart failure type I50.9 ; HTN (hypertension) I10 and 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.22 [facility] [id number] [place] [address] 33596- 1466 Aug, Acute on chronic heart failure, unspecified heart failure type I50.9 ; HTN (hypertension) I10 ; 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.22 ; Cellulitis of right lower extremity L03.115 and BMI 50.0-59.9, adult Z68.43 [facility] [address] [place] [address] 44193 -4084 Aug, Acute upper respiratory infection, unspecified J06.9 ; Other viral agents as the cause of diseases classified elsewhere B97.89 ; Constipation, unspecified constipation type K59.00 ; BMI 50.0-59.9, adult Z68.43 and BMI 60.0-69.9, adult Z68.44 [facility] [id number] [place] [address] 13320- 9093 Aug, Chronic pain G89.29 [facility] [id number] [place] [address] 86587- 4859 Jul, Chronic pain G89.29 [facility] [id number] [place] [address] 92327- 0724 Jul, Chronic pain G89.29 [facility] [id number] [place] [address] 86095- 7813 Jun, Chronic pain G89.29 [facility] [id number] [place] [address] 92753- 0790 Jun, [facility] [address] 62563- 8093 Jun, Chronic pain G89.29 [facility] [id number] [place] [address] 10496- 1802 May, Chronic pain G89.29 and 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.22 [facility] [id number] [place] [address] 70138- 5710 16 May, 2017 [facility] [address] 60653- 0752 11 May, 2017 Chronic pain G89.29 and Anxiety F41.9 [facility] [address] 86032- 7806 May, 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.22 ; Social phobia F40.10 ; Morbid obesity E66.01 ; Chronic pain G89.29 ; HTN (hypertension) I10 ; Degenerative disc disease at L5-S1 level M51.36 ; BPH (benign prostatic hyperplasia) N40.0 ; Pain in right knee M25.561 and 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 [place] [id number] [place] [address] 38738- 3077 Apr, Anxiety F41.[address] 24400- 4538 Apr, [facility] [id number] [place] [address] 49904- 6159 Mar, [facility] [address] 56291- 6765 Mar, Edema, unspecified type R60.9 and Anxiety F41.9 [place] [id number] [place] [address] 75952- 0054 Mar, Social phobia F40.10 ; Mixed obsessional thoughts and acts F42.2 and Mild episode of recurrent major depressive disorder F33.0 [place] [id number] [place] [address] 34135- 4922 Mar, Degenerative disc disease at L5-S1 level M51.36 [facility] [id number] [place] [address] 79126- 1127 13 Mar, 2017 [place] [address] 35257- 6284 Mar, [facility] [id number] [place] [address] 39396- 9405 Mar, [address] 22674- 3036 February, Morbid obesity E66.01 ; Anxiety F41.9 ; Degenerative disc disease at L5-S1 level M51.36 ; BPH (benign prostatic hyperplasia) N40.0 ; Social phobia F40.10 ; HTN (hypertension) I10 ; Edema, unspecified type R60.9 and Screening cholesterol level Z13.220 [place] [id number] [place] [address] 13749- 0148 February, Social phobia, generalized F40.11 [place] [id number] [place] [address] 34141- 3493 February, Chronic pain G89.[address] 01757- 3179 February, [address] 24043- 0392 Jan, Chronic pain G89.[address] 79244- 4310 Jan, Panic disorder [episodic paroxysmal anxiety] without agoraphobia F41.0 [place] [id number] [place] [address] 22768- 5915 Dec, Morbid obesity E66.01 ; Anxiety F41.9 ; Chronic pain G89.29 ; HTN (hypertension) I10 ; BPH (benign prostatic hyperplasia) N40.0 ; Generalized edema R60.1 and Cough R05 [place] [id number] [place] [address] 21337- 4050 14 Nov, 2016 Chronic pain G89.29 [place] [id number] [place] [address] 29641- 2642 03 Nov, 2016 Social phobia, generalized F40.11 and Mild episode of recurrent major depressive disorder F33.0 [facility] [address], [place] [address]- 1050 17 Oct, 2016 Chronic pain G89.29 [facility] [address] [place] [address] 61205- 2835 Oct, Social phobia, generalized F40.11 [facility] [id number] [place] [address] 00047- 3744 Sep, [facility] [id number] [place] [address] 70908- 1487 Sep, [facility] [id number] [place] [address] 47727- 9420 Sep, [facility] [id number] [place] [address] 89173- 3627 Sep, [facility] [id number] [place] [address] 33958- 7812 Sep, [facility] [id number] [place] [address] 32901- 7296 Sep, Social phobia, generalized F40.11 and Mild episode of recurrent major depressive disorder F33.0 [facility] [address], [place] [address]- 4452 Sep, [facility] [id number] [place] [address] 47814- 2823 Aug, [facility] [id number] [place] [address] 14986- 2251 Aug, [facility] [id number] [place] [address] 10153- 4278 Aug, Bronchitis J40 [facility] [id number] [place] [address] 22839- 0132 15 Aug, 2016 [facility] [id number] [place] [address] 88434- 2823 Aug, 2016 Osteoarthritis of knee, unspecified M17.9 [facility] [address], [place] [address]- 6584 Aug, Morbid obesity E66.01 ; Chronic pain G89.29 ; Anxiety F41.9 ; Social phobia F40.10 ; HTN (hypertension) I10 ; Social phobia, generalized F40.11 ; Acute upper respiratory infection, unspecified J06.9 and Other viral agents as the cause of diseases classified elsewhere B97.89 [facility] [id number] [place] [address] 39505- 5845 Aug, Social phobia, generalized F40.11 and Dysthymic disorder F34.1 [facility] [id number] [place] [address] 14086- 4832 Jul, [facility] [id number] [place] [address] 35429- 3384 Jun, [facility] [id number] [place] [address] 11361- 8359 May, [facility] [id number] [place] [address] 94914- 8025 May, [facility] [id number] [place] [address] 43983- 2850 May, [facility] [id number] [place] [address] 88132- 9184 May, [facility] [id number] [place] [address] 09300- 3114 May, [facility] [id number] [place] [address] 28626- 3376 May, [facility] [id number] [place] [address] 61974- 6125 May, [facility] [id number] [place] [address] 50039- 3054 Apr, [facility] [id number] [place] [address] 99836- 1106 Apr, Chondromalacia, right knee M94.261 [facility] [id number] [place] [address] 16133- 6091 Apr, Pain in unspecified hip M25.559 [facility] [id number] [place] [address] 34376- 1691 Mar, Social phobia, unspecified F40.10 and Pain in unspecified hip M25.559 [facility] [id number] [place] [address] 50594- 0565 February, [facility] [address] 88851- 4140 February, Social phobia F40.10 [facility] [id number] [place] [address] 25413- 4327 February, Morbid obesity E66.01 ; Chronic pain G89.29 ; Social phobia F40.10 ; Pelvic pain in male R10.2 ; HTN (hypertension) I10 ; Degenerative disc disease at L5-S1 level M51.36 ; BPH (benign prostatic hyperplasia) N40.0 and Pain in right knee M25.561 [facility] [id number] [place] [address] 37418- 4420 14 Jan, 2016 [facility] [id number] [place] [address] 28200- 3495 Jan, [facility] [id number] [place] [address] 75520- 0170 Jan, [facility] [id number] [place] [address] 84875- 1640 17 Dec, 2015 [facility] [id number] [place] [address] 49729- 4033 16 Dec, 2015 [facility] [id number] [place] [address] 50195- 4991 Dec, [facility] [id number] [place] [address] 08469 -7618 29 Nov, 2015 Strep pharyngitis J02.0 ; Influenza A J10.1 and Cough R05 [facility] [address] 64420- 1231 18 Nov, 2015 [facility] [address] 78430- 4004 Nov, [facility] [address] 17972- 3013 Oct, HTN (hypertension) I10 ; Morbid obesity E66.01 ; Anxiety F41.9 ; Social phobia F40.10 ; Panic disorder F41.0 ; Degenerative disc disease at L5-S1 level M51.36 and Hypercholesterolemia E78.0 [facility] [id number] [place] [address] 14141- 3025 Oct, Panic disorder [episodic paroxysmal anxiety] without agoraphobia F41.0 and Social phobia, generalized F40.11 [facility] [address] 16700- 4013 Oct, [facility] [address] 28781- 8134 Sep, [facility] [address] 55579- 6093 Sep, [facility] [address] 67279- 3210 Sep, [facility] [address] 33315- 4360 Sep, [facility] [address] 81554- 9252 Aug, [facility] [address] 64893- 1608 Aug, [facility] [address] [address] Aug, [facility] [id number] [place] [address] Aug, Social phobia F40.10 and Panic disorder F41.0 [facility] [id number] [place] [address] Aug, [facility] [id number] [place] [address]- [address] Aug, [facility] [address] [address] Aug, [facility] [address] [address] Aug, [facility] [address] [address] Jul, [facility] [address] [address] Jul, Morbid obesity E66.01 ; Chronic pain G89.29 ; Anxiety F41.9 ; Social phobia F40.10 ; Panic disorder F41.0 ; Pelvic pain in male R10.2 ; Insomnia G47.00 and HTN (hypertension) I10 [facility] [id number] [place] [address] Jul, [facility] [id number] [place] [address]- [address] Jul, [facility] [id number] [place] [address]- [address] Jun, Degenerative disc disease 722.6 [facility] [address] [address] Jun, Pain in joint, pelvic region and thigh 719.45 ; Morbid obesity 278.01 ; Essential hypertension, benign 401.1 and Constipation 564.00 [facility] [id number] [place] [address]- [address] May, [facility] [address] [address] May, [facility] [id number] [place] [id number]- [address] May, [facility] [id number] [place] [address] 00937- 3624 May, [facility] [id number] [place] [address] 17620- 1241 May, [facility] [id number] [place] [address] 47808- 3121 May, [facility] [id number] [place] [address] 65447- 5632 May, Essential hypertension, benign 401.1 ; Anxiety state, unspecified 300.00 ; Panic disorder without agoraphobia 300.01 ; Social phobia 300.23 ; Morbid obesity 278.01 ; Other chronic pain 338.29 and Insomnia 780.52 [facility] [id number] [place] [address] 39466- 0193 May, Essential hypertension 401.9 [facility] [id number] [place] [address] 42176- 6697 May, Pain in joint, pelvic region and thigh 719.45 [facility] [id number] [place] [address] 09554- 1041 May, Essential hypertension, benign 401.1 [facility] [id number] [place] [address] 09363- 4830 May, Panic disorder without agoraphobia 300.01 and Social phobia 300.23 [facility] [id number] [place] [address] 35140- 9903 May, [facility] [id number] [place] [address] 30236- 8611 May, [facility] [id number] [place] [address] 63624- 9233 Apr, Chronic pain 338.29 [facility] [address] [address] Apr, 2014 [facility] [address] [address] 8[address] Apr, 2014 [facility] [address] [address] 1538 Apr, 2014 [facility] [id number] [place] [address] 55028- 7428 Apr, 2014 [facility] [id number], [place] [address] 9707 Apr, [facility] [id number] [place] [address] 16858- 0619 Apr, [facility] [address] [address] 6121 Apr, 2014 [facility] [address] [place] [address] 3007 Apr, Essential hypertension, benign 401.1 ; Morbid obesity 278.01 ; Anxiety state, unspecified 300.00 ; Panic disorder without agoraphobia 300.01 ; Social phobia 300.23 and Chronic pain 338.29 [facility] [address] [place] [address]- 2185 Mar, [facility] [address] [place] [address]- 7927 Mar, [facility] [id number] [place] [address] 8595 Mar, [facility] [address] [place] [address] 4934 Mar, [facility] [id number] [place] [address]- 5630 Mar, Social phobia 300.23 and Panic disorder without agoraphobia 300.01 [facility] [id number] [address] 9966 Mar, [facility] [id number] [place] [address] 600969- 7903 February, [facility] [id number] [address] 1136 February, Major depression, recurrent 296.30 and No condition on [place] II V71.09 [facility] [id number] [place] [address] 28213- 2425 February, [facility] [id number] [place] [address] 649153- 1398 February, Panic disorder without agoraphobia 300.01 ; Social phobia 300.23 and Morbid obesity 278.01 [facility] [id number] [address] 6017 Jan, [facility] [id number] [place] [address] 47237- 4907 Jan, [facility] [id number] [place] [address] 91253- 4056 Dec, [facility] [id number] [address]- 4746 Dec, [facility] [address] [place] [address]- 4891 Dec, [facility] [address] [place] [address]- 5795 Dec, [facility] [address] [place] [address]- 2337 Dec, [facility] [id number] 7827 Dec, [facility] [id number] 3739 Dec, [facility] [id number] [place] [address] [id number]- 0001 Dec, [facility] [id number] [address]- 9317 Dec, [facility] [address] [facility] [id number] [address]- 1358 Dec, [facility] [id number], [place] [address]- 7366 Dec, [facility] [address] [facility] [id number] 4898 Dec, [facility] [id number] [address]- 2183 Dec, [facility] [id number], [place] [address]- 9376 Dec, [facility] [address], [place] [address]- 5950 Dec, [facility] [id number], [place] [address]- 7915 Dec, IMMUNIZATIONS No Known Immunizations SOCIAL HISTORY Never Assessed REASON FOR VISIT CCM call/med refill PLAN OF CARE VITAL SIGNS MEDICATIONS Medication Instructions Dosage Frequency Start Date End Date Duration Status Levemir FlexTouch 100 UNIT/ML Subcutaneous Once a day Inject 22 units 24h Active RESULTS No Results PROCEDURES No [...]
--- OUTSIDE RECORDS SUMMARY | 2018-11-30 17:19 | XMS REPORT ---
Author Author ROSE MARY BUCKNER [facility] Address [address] [place] [address] Care Team Providers Care Retoucher Photoengraving Name Role Phone ISA BUCKNERTA Unavailable PROBLEMS Type Condition ICD9-CM Code FFR66-KX Code Onset Dates Condition Status SNOMED Code Problem Primary insomnia F51.01 Active 4036914 Problem Constipation, unspecified constipation type K59.00 Active 85330709 Problem Mixed hyperlipidemia E78.2 Active 082794384 Problem Type 2 diabetes mellitus 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, unspecified whether jail insulin use E11.40 Active 34828985 Problem Controlled substance agreement terminated Z91.14 Active 780566950 Problem Major depressive disorder, recurrent, in full remission F33.42 Active 642833069 Problem Stasis dermatitis of both legs I87.2 Active 22054639 Problem BMI 50.0-59.9, adult Z68.43 Active 482383513 Problem Lymphedema I89.0 Active 559286792 Problem Chronic systolic congestive heart failure I50.22 Active 968650874 Problem Panic disorder F41.0 Active 697234747 Problem Chronic pain G89.29 Active 14183366 Problem Cardiomegaly I51.7 Active 0773953 Problem Abnormal liver function test R94.5 Active 926371622 Problem BPH (benign prostatic hyperplasia) N40.0 Active 309941087 Problem Dysthymic disorder F34.1 Active 90784401 Problem HTN (hypertension) I10 Active 63377722 Problem Mild episode of recurrent major depressive disorder F33.0 Active 937200894 Problem Degenerative disc disease at L5-S1 level M51.36 Active 15010493 Problem 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.22 Active 26129925 ALLERGIES No Information ENCOUNTERS Encounter Location Date Diagnosis [facility] [address] [facility] [id number] [address] Nov, [facility] [address] [facility] [id number] [address] Oct, [facility] [address] [address] Oct, [facility] [address] [address] Sep, [facility] [address] [address] 9[address] Sep, [facility] [address] [id number] [place] [address] 064347- 6097 Sep, [facility] [address] [address] Sep, [facility] [id number] [place] [address] 990769- 5160 Sep, Mild episode of recurrent major depressive disorder F33.0 and BMI 40.0-44.9, adult Z68.41 [facility] [id number] [place] [address] 73680- 2220 Aug, [facility] [address] [address] 6[address] Aug, [facility] [address] [address] 3894 Aug, Onychomycosis B35.1 and Type 2 diabetes mellitus 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, unspecified whether jail insulin use E11.40 [facility] [address] [address] Aug, [facility] [address] [address] Jul, 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.22 ; Mild episode of recurrent major depressive disorder F33.0 and BMI 40.0-44.9, adult Z68.41 [facility] [address] [address] Jul, [facility] [id number] [place] [address] 88766- 5364 Jul, 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.22 [place] [address] 64789- 7115 Jul, [place] [address] 78951- 0395 Jul, 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.22 [place] [address] 08164- 1116 Jul, Chronic systolic congestive heart failure I50.22 and Mixed hyperlipidemia E78.[address] 15395- 5448 Jun, [address] 58[address]- 1801 Jun, 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.22 [place] [address] 24264- 8459 Jun, Onychomycosis B35.1 ; Self-care deficit for hygiene R46.0 and Nail hypertrophy L60.[address] 35035- 0684 Jun, Dental examination Z01.[address] 91542- 1294 Jun, Tooth infection K04.7 ; BMI 40.0-44.9, adult Z68.41 and Mouth pain K13.79 [place] [id number] [place] [address] 87506- 4486 Jun, 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.22 [place] [address] [id number] [place] [address] 51322- 9059 May, Degenerative disc disease at L5-S1 level M51.36 ; Chronic pain G89.29 and BMI 40.0-44.9, adult Z68.41 [place] [address] [address] 65[address] May, [place] [address] [id number] [place] [address] 26746- 3731 May, 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.22 [place] [id number] [place] [address] 03514- 7668 May, [place] [address] [address] [id number] [place] [address] 90972- 1049 May, Degenerative disc disease at L5-S1 level M51.36 [place] [address] [address] [id number] [place] [address] 41934- 3691 May, [place] [address] [address] [id number] [place] [address] 43087- 3387 May, [place] [address] [id number] [place] [address] 54774- 6037 May, [place] [id number] [place] [address] 93747- 6006 Apr, 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.22 ; Chronic pain G89.29 ; Major depressive disorder, recurrent, in full remission F33.42 ; HTN (hypertension) I10 ; Chronic systolic congestive heart failure I50.22 ; Mixed hyperlipidemia E78.2 and BMI 45.0-49.9, adult Z68.42 [place] [address] [address] 9965 Apr, 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.22 [place] [address] [place] [id number] [address] 2[address] Apr, Medicare annual wellness visit, initial Z00.00 [...] vaccine Z28.21 and Encounter for immunization Z23 [place] [address] [id number] [place] [address] 33584- 7733 Apr, [place] [address] [address] [id number] [place] [address] 66611- 3569 Mar, 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.22 [place] [address] 33978- 7108 Mar, Chronic pain G89.29 [place] [address] [place] [id number] [place] [address] 04509- 9295 February, Chronic pain G89.29 ; Abnormal liver function test R94.5 and Degenerative disc disease at L5-S1 level M51.36 [place] [address] [place] [address] [id number] [place] [address] 08856- 7978 Jan, [place] [address] [place] [address] [id number] [place] [address] 48812- 1608 Jan, [place] [address] [address] [id number] [place] [address] 14023- 4527 Jan, [place] [address] [place] [address] [id number] [place] [address] 11344- 2347 Jan, Abnormal liver function test R94.5 ; Dysthymic disorder F34.1 and Chronic pain G89.29 [place] [address] [place] [id number] [place] [address] 24573- 7608 Dec, [place] [address] [place] [id number] [place] [address] 65851- 2180 Dec, HTN (hypertension) I10 ; BMI 45.0-49.9, adult Z68.42 ; Chronic pain G89.29 ; Primary insomnia F51.01 ; Mixed hyperlipidemia E78.2 ; Dysthymic disorder F34.1 ; 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.22 ; Stasis dermatitis of both legs I87.2 and Chronic systolic congestive heart failure I50.22 [facility] [id number] [place] [address] 91219- 5291 Dec, Chronic pain G89.29 [facility] [id number] [place] [address] 79676 -3946 04 Dec, 2017 Lymphedema I89.0 and Chronic systolic congestive heart failure I50.22 [facility] [id number] [place] [address] 65407- 0434 Dec, [facility] [address] 43652- 3743 Nov, 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.22 [facility] [address] 16600- 2072 Nov, Chronic pain G89.29 and Dysthymic disorder F34.1 [facility] [id number] [place] [address] 18434- 5381 Nov, [facility] [address] 94982- 9991 Oct, HTN (hypertension) I10 ; Chronic pain G89.29 ; BMI 45.0-49.9 , adult Z68.42 ; Primary insomnia F51.01 ; Mixed hyperlipidemia E78.2 ; Dysthymic disorder F34.1 ; 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.22 ; Chronic congestive heart failure, unspecified congestive heart failure type I50.9 ; Acute non-recurrent maxillary sinusitis J01.00 and BMI 50.0-59.9, adult Z68.43 [facility] [id number] [place] [address] 29447- 0164 Oct, HTN (hypertension) I10 and Dysthymic disorder F34.1 [place] [address] [place] [address] [id number] [place] [address] 59660- 0487 Oct, [place] [address] [address]- 8089 Oct, HTN (hypertension) I10 [place] [address] [address]- 9400 Oct, Chronic pain G89.29 [place] [address] [address]- 2909 Sep, [place] [address] [address]- 7351 Sep, HTN (hypertension) I10 ; Chronic pain G89.29 ; BMI 45.0-49.9 , adult Z68.42 ; Primary insomnia F51.01 ; Mixed hyperlipidemia E78.2 ; Dysthymic disorder F34.1 and 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.22 [place] [address] [address]- 9987 Sep, Chronic pain G89.29 [place] [address] [address]- 1368 Sep, Acute on chronic heart failure, unspecified heart failure type I50.9 [place] [address] [address]- 2283 Sep, Acute on chronic heart failure, unspecified heart failure type I50.9 ; 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.22 and BMI 50.0-59.9, adult Z68.43 [place] [address] [place] [address] [id number] [address]- 4828 Sep, Acute on chronic heart failure, unspecified heart failure type I50.9 ; HTN (hypertension) I10 and 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.22 [place] [address] [place] [id number] [address]- 9273 Aug, Acute on chronic heart failure, unspecified heart failure type I50.9 ; HTN (hypertension) I10 ; 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.22 ; Cellulitis of right lower extremity L03.115 and BMI 50.0-59.9, adult Z68.43 [facility] [id number] [place] [address] 23248 -0330 Aug, Acute upper respiratory infection, unspecified J06.9 ; Other viral agents as the cause of diseases classified elsewhere B97.89 ; Constipation, unspecified constipation type K59.00 ; BMI 50.0-59.9, adult Z68.43 and BMI 60.0-69.9, adult Z68.44 [facility] [id number] [place] [address] 07597- 9723 Aug, Chronic pain G89.29 [place] [address] 70655- 6721 Jul, Chronic pain G89.29 [place] [address] 76299- 5126 Jul, Chronic pain G89.29 [facility] [address] 43470- 5329 Jun, Chronic pain G89.29 [place] [address] 41354- 2111 Jun, [place] [address] 83010- 9926 Jun, Chronic pain G89.29 [facility] [id number] [place] [address] 89765- 4142 May, Chronic pain G89.29 and 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.22 [place] [address] 28752- 1431 16 May, 2017 [place] [address] 81404- 3780 May, Chronic pain G89.29 and Anxiety F41.9 [place] [address] [place] [address]- 2892 May, 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.22 ; Social phobia F40.10 ; Morbid obesity E66.01 ; Chronic pain G89.29 ; HTN (hypertension) I10 ; Degenerative disc disease at L5-S1 level M51.36 ; BPH (benign prostatic hyperplasia) N40.0 ; Pain in right knee M25.561 and 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 [place] [address] 55667- 1800 Apr, Anxiety F41.9 [place] [address] 87351- 0885 Apr, [place] [address] 42776- 6854 Mar, [place] [address] 69470- 0608 Mar, Edema, unspecified type R60.9 and Anxiety F41.9 [place] [address] [place] [id number] [place] [address] 95777- 6026 Mar, Social phobia F40.10 ; Mixed obsessional thoughts and acts F42.2 and Mild episode of recurrent major depressive disorder F33.0 [place] [address] [place] [id number] [place] [address] 14736- 2232 Mar, Degenerative disc disease at L5-S1 level M51.36 [place] [address] [place] [id number] [place] [address] 90349- 9720 Mar, [place] [address] [place] [id number] [place] [address] 80061- 7102 Mar, [place] [address] 17102- 4874 Mar, [place] [address] [place] [id number] [place] [address] 37085- 1122 February, Morbid obesity E66.01 ; Anxiety F41.9 ; Degenerative disc disease at L5-S1 level M51.36 ; BPH (benign prostatic hyperplasia) N40.0 ; Social phobia F40.10 ; HTN (hypertension) I10 ; Edema, unspecified type R60.9 and Screening cholesterol level Z13.220 [place] [address] [place] [id number] [place] [address] 81580- 0598 February, Social phobia, generalized F40.11 [place] [address] 45049- 5927 February, Chronic pain G89.29 [place] [address] 66968- 3336 February, [place] [address] 49646- 8134 Jan, Chronic pain G89.29 [place] [address] [place] [id number] [place] [address] 83669- 2517 Jan, Panic disorder [episodic paroxysmal anxiety] without agoraphobia F41.0 [place] [address] [place] [id number] [place] [address] 29277- 1993 Dec, Morbid obesity E66.01 ; Anxiety F41.9 ; Chronic pain G89.29 ; HTN (hypertension) I10 ; BPH (benign prostatic hyperplasia) N40.0 ; Generalized edema R60.1 and Cough R05 [place] [id number] [place] [address] 30553- 3447 14 Nov, 2016 Chronic pain G89.29 [place] [address] [place] [id number] [place] [address] 95126- 9317 Nov, Social phobia, generalized F40.11 and Mild episode of recurrent major depressive disorder F33.0 [place] [address] 72833- 5225 Oct, Chronic pain G89.29 [place] [address] [place] [id number] [place] [address] 43081- 0212 Oct, Social phobia, generalized F40.11 [facility] [address] [address]- 6691 Sep, [facility] [address] [id number] [place] [address] 84779- 3013 Sep, [facility] [id number] [place] [address] 48994- 3631 Sep, [facility] [id number] [place] [address] 06333- 0746 Sep, [facility] [id number] [place] [address] 01793- 7249 Sep, [facility] [address] [id number] [place] [address] 23190- 4808 Sep, Social phobia, generalized F40.11 and Mild episode of recurrent major depressive disorder F33.0 [facility] [address] [place] [id number] [place] [address] 39662- 8269 Sep, [facility] [id number] [place] [address] 46149- 6383 Aug, [facility] [address] [place] [id number] [place] [address] 29767- 1207 Aug, [facility] [id number] [place] [address] 41622- 2380 17 Aug, 2016 Bronchitis J40 [facility] [address] [id number] [place] [address] 56907- 3268 15 Aug, 2016 [facility] [id number] [place] [address] 86992- 4208 10 Aug, 2016 Osteoarthritis of knee, unspecified M17.9 [facility] [id number] [place] [address] 41818- 3482 09 Aug, 2016 Morbid obesity E66.01 ; Chronic pain G89.29 ; Anxiety F41.9 ; Social phobia F40.10 ; HTN (hypertension) I10 ; Social phobia, generalized F40.11 ; Acute upper respiratory infection, unspecified J06.9 and Other viral agents as the cause of diseases classified elsewhere B97.89 [facility] [id number] [place] [address] 07974- 7311 Aug, Social phobia, generalized F40.11 and Dysthymic disorder F34.1 [facility] [id number] [address]- 4606 Jul, [facility] [id number] [place] [address] 15847- 0422 Jun, [facility] [id number] [place] [address] 67659- 2271 May, [facility] [id number] [place] [address] 94190- 5838 May, [facility] [id number] [place] [address] 92642- 8500 May, [facility] [id number] [place] [address] 90157- 4698 May, [facility] [id number] [place] [address] 61506- 5880 May, [facility] [id number] [place] [address] 59629- 8243 May, [facility] [id number] [place] [address] 72592- 5867 May, [facility] [id number] [place] [address] 91579- 2548 Apr, [facility] [id number] [place] [address] 22071- 9748 Apr, Chondromalacia, right knee M94.261 [facility] [id number] [place] [address] 70970- 2546 Apr, Pain in unspecified hip M25.559 [facility] [id number] [place] [address] 13940- 4195 Mar, Social phobia, unspecified F40.10 and Pain in unspecified hip M25.559 [place] [address] 10963- 3531 February, [facility] [id number] [place] [address] 62963- 4722 February, Social phobia F40.10 [place] [address] 58963- 3259 February, Morbid obesity E66.01 ; Chronic pain G89.29 ; Social phobia F40.10 ; Pelvic pain in male R10.2 ; HTN (hypertension) I10 ; Degenerative disc disease at L5-S1 level M51.36 ; BPH (benign prostatic hyperplasia) N40.0 and Pain in right knee M25.561 [place] [address] 44082- 5977 14 Jan, 2016 [place] [address] 33912- 3905 Jan, [place] [address] 56217- 8256 Jan, [facility] [address] 69808- 2543 Dec, [place] [address] [address] [id number] [place] [address] 64989- 3901 Dec, [place] [address] 16620- 9422 Dec, [facility] [id number] [place] [address] 05966 -4457 Nov, Strep pharyngitis J02.0 ; Influenza A J10.1 and Cough R05 [facility] [id number] [place] [address] 81589- 6443 Nov, [facility] [address] 74903- 0527 Nov, [facility] [id number] [place] [address] 85284- 0359 Oct, HTN (hypertension) I10 ; Morbid obesity E66.01 ; Anxiety F41.9 ; Social phobia F40.10 ; Panic disorder F41.0 ; Degenerative disc disease at L5-S1 level M51.36 and Hypercholesterolemia E78.0 [facility] [id number] [place] [address] 16838- 9297 Oct, Panic disorder [episodic paroxysmal anxiety] without agoraphobia F41.0 and Social phobia, generalized F40.11 [facility] [id number] [place] [address] 34803- 9633 Oct, [facility] [id number] [place] [address] 28754- 7102 Sep, [facility] [id number] [place] [address] 75146- 9549 Sep, [facility] [id number] [place] [address] 24419- 5671 Sep, [facility] [id number] [place] [address] 87607- 8303 Sep, [facility] [id number] [place] [address] 31319- 6069 Aug, [facility] [id number] [place] [address] 05915- 5830 Aug, [facility] [id number] [place] [address] 45117- 5662 Aug, [facility] [id number] [place] [address] 53655- 2976 Aug, Social phobia F40.10 and Panic disorder F41.0 [facility] [id number] [place] [address] 63237- 1885 Aug, [facility] [id number] [place] [address] 56628- 9324 Aug, [facility] [id number] [place] [address] 54898- 8758 Aug, [facility] [id number] [place] [address] 30897- 6271 Aug, [facility] [address] 73721- 4371 Jul, [facility] [id number] [place] [address] 98597- 7443 Jul, Morbid obesity E66.01 ; Chronic pain G89.29 ; Anxiety F41.9 ; Social phobia F40.10 ; Panic disorder F41.0 ; Pelvic pain in male R10.2 ; Insomnia G47.00 and HTN (hypertension) I10 [facility] [id number] [place] [address] [id number] Jul, [facility] [id number] [place] [address] [phone] Jul, [facility] [id number] [place] [address] [id number] Jun, Degenerative disc disease 722.6 [facility] [id number] [place] [address] [phone]- 3041 Jun, Pain in joint, pelvic region and thigh 719.45 ; Morbid obesity 278.01 ; Essential hypertension, benign 401.1 and Constipation 564.00 [facility] [id number] [place] [address] [id number] May, [facility] [address] [phone]- [phone] May, [facility] [id number] [place] [address] [id number] [phone] May, [facility] [id number] [place] [address] [id number] May, [facility] [id number] [place] [address] [phone]- 4974 May, [facility] [id number] [place] [address] [id number] May, [facility] [id number] [place] [address] 76944- 0337 May, Essential hypertension, benign 401.1 ; Anxiety state, unspecified 300.00 ; Panic disorder without agoraphobia 300.01 ; Social phobia 300.23 ; Morbid obesity 278.01 ; Other chronic pain 338.29 and Insomnia 780.52 [facility] [address] [address] [address] May, Essential hypertension 401.9 [facility] [id number] [place] [address] 75744- 5751 May, Pain in joint, pelvic region and thigh 719.45 [facility] [id number] [place] [address] 75472- 6547 May, Essential hypertension, benign 401.1 [facility] [id number] [place] [address] 85116- 5604 May, Panic disorder without agoraphobia 300.01 and Social phobia 300.23 [facility] [id number] [place] [address] 00760- 9766 May, [facility] [id number] [place] [address] 98443- 1909 May, [facility] [id number] [place] [address] 86620- 8367 Apr, Chronic pain 338.29 [facility] [id number] [place] [address] 92401- 7210 Apr, [facility] [id number] [place] [address] 76659- 6879 Apr, [facility] [address] [place] [address] Apr, [facility] [id number] [place] [address] 31950- 8379 Apr, [facility] [id number] [place] [address] 28219- 2661 Apr, [facility] [id number] [place] [address] 54792- 6159 Apr, [facility] [id number] [place] [address] 88212- 2291 Apr, [facility] [id number] [place] [address] 73961- 9904 Apr, Essential hypertension, benign 401.1 ; Morbid obesity 278.01 ; Anxiety state, unspecified 300.00 ; Panic disorder without agoraphobia 300.01 ; Social phobia 300.23 and Chronic pain 338.29 [facility] [id number] [place] [address] 88316- 8604 Mar, [facility] [id number] [place] [address] 93039- 9762 Mar, [facility] [id number] [place] [address] 25693- 4800 Mar, [facility] [id number] [place] [address] 02003- 0488 Mar, [facility] [id number] [place] [address] 34856- 0432 Mar, Social phobia 300.23 and Panic disorder without agoraphobia 300.01 [facility] [id number] [place] [address] 04766- 4312 Mar, [facility] [id number] [place] [address] 70768- 9342 February, [facility] [id number] [place] [address] 19023- 8075 February, Major depression, recurrent 296.30 and No condition on [place] II V71.09 [facility] [id number] [address] February, [facility] [id number] [place] [address] [id number]- 8703 February, Panic disorder without agoraphobia 300.01 ; Social phobia 300.23 and Morbid obesity 278.01 [facility] [id number] [address] Jan, [facility] [id number] [address] 8699 Jan, [facility] [id number] [place] [address] 14001- 1968 Dec, [facility] [id number] [address] 9760 Dec, [facility] [id number] [address] 9528 Dec, [facility] [id number] [address] 1511 Dec, [facility] [id number] [address] 6104 Dec, [facility] [id number] [address] 0039 Dec, [facility] [id number] [address] 9011 Dec, [facility] [id number] [address] 0323 Dec, [facility] [id number] [id number] 1152 Dec, [facility] [id number] [address] Dec, [facility] [id number] [address] 5472 Dec, [facility] [address] [facility] [id number] [place] [address] 8014 Dec, [facility] [address] [facility] [id number] [address] 1641 Dec, [facility] [address] [facility] [id number] [address]- 3124 Dec, [facility] [address] [facility] [id number] [address] 5061 Dec, [facility] [address] [facility] [id number] [address] 6868 Dec, IMMUNIZATIONS No Known Immunizations SOCIAL HISTORY Never Assessed REASON FOR VISIT Medication question PLAN OF CARE VITAL SIGNS MEDICATIONS Unknown [...]
--- OUTSIDE RECORDS SUMMARY | 2018-11-30 17:19 | XMS REPORT ---
Author Author ROSE MARY BUCKNER [facility] Address [address] [place] [address] Care Team Providers Care Lead Manufacturing Technician Name Role Phone ISA BUCKNERTA Unavailable PROBLEMS Type Condition ICD9-CM Code RLH90-PN Code Onset Dates Condition Status SNOMED Code Problem Primary insomnia F51.01 Active 1751211 Problem Constipation, unspecified constipation type K59.00 Active 20580876 Problem Mixed hyperlipidemia E78.2 Active 125071926 Problem Type 2 diabetes mellitus 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, unspecified whether retirement insulin use E11.40 Active 82950255 Problem Controlled substance agreement terminated Z91.14 Active 884125195 Problem Major depressive disorder, recurrent, in full remission F33.42 Active 034105415 Problem Stasis dermatitis of both legs I87.2 Active 13641087 Problem BMI 50.0-59.9, adult Z68.43 Active 589178019 Problem Lymphedema I89.0 Active 718762293 Problem Chronic systolic congestive heart failure I50.22 Active 870846074 Problem Panic disorder F41.0 Active 770460438 Problem Chronic pain G89.29 Active 50447351 Problem Cardiomegaly I51.7 Active 8622229 Problem Abnormal liver function test R94.5 Active 214293670 Problem BPH (benign prostatic hyperplasia) N40.0 Active 882406356 Problem Dysthymic disorder F34.1 Active 99445005 Problem HTN (hypertension) I10 Active 73345890 Problem Mild episode of recurrent major depressive disorder F33.0 Active 561504393 Problem Degenerative disc disease at L5-S1 level M51.36 Active 64896094 Problem 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.22 Active 47664161 ALLERGIES No Information ENCOUNTERS Encounter Location Date Diagnosis [facility] [address] [facility] [id number] [address] Nov, [facility] [address] [facility] [id number] [address] Oct, [facility] [address] [address] [address] Oct, [facility] [address] [address] Sep, [facility] [address] [address] 46[address] Sep, [facility] [address] [id number] [place] [address] 185906- 0275 Sep, [facility] [address] [address]- 9058 Sep, [facility] [address] [id number] [place] [address] 901696- 7013 Sep, Mild episode of recurrent major depressive disorder F33.0 and BMI 40.0-44.9, adult Z68.41 [facility] [id number] [place] [address] 89097- 2187 Aug, [facility] [address] [address] 6370 Aug, [facility] [address] [address] 3[address] Aug, Onychomycosis B35.1 and Type 2 diabetes mellitus 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, unspecified whether retirement insulin use E11.40 [facility] [address] [address] 0[address] Aug, [facility] [address] [address] Jul, 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.22 ; Mild episode of recurrent major depressive disorder F33.0 and BMI 40.0-44.9, adult Z68.41 [facility] [address] [address] Jul, [facility] [id number] [place] [address] 04680- 2298 Jul, 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.22 [place] [address] 26889- 5827 Jul, [place] [address] 11338- 8340 Jul, 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.22 [place] [address] 09796- 5055 Jul, Chronic systolic congestive heart failure I50.22 and Mixed hyperlipidemia E78.[address] [address]26- 7200 Jun, [address] 86357- 5576 Jun, 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.22 [place] [address] 95543- 8846 Jun, Onychomycosis B35.1 ; Self-care deficit for hygiene R46.0 and Nail hypertrophy L60.[address] 55474- 9173 Jun, Dental examination Z01.[address] 85355- 7867 Jun, Tooth infection K04.7 ; BMI 40.0-44.9, adult Z68.41 and Mouth pain K13.79 [place] [id number] [place] [address] 70601- 5310 Jun, 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.22 [place] [id number] [place] [address] 13593- 7540 May, Degenerative disc disease at L5-S1 level M51.36 ; Chronic pain G89.29 and BMI 40.0-44.9, adult Z68.41 [place] [address] [address]- 1097 May, [place] [id number] [place] [address] 86707- 2817 May, 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.22 [place] [id number] [place] [address] 48916- 0381 May, [place] [id number] [place] [address] 08277- 4475 May, Degenerative disc disease at L5-S1 level M51.36 [place] [id number] [place] [address] 66915- 7532 May, [place] [id number] [place] [address] 04399- 6951 May, [place] [id number] [place] [address] 24620- 3432 May, [place] [address] [place] [address] 03001- 8514 Apr, 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.22 ; Chronic pain G89.29 ; Major depressive disorder, recurrent, in full remission F33.42 ; HTN (hypertension) I10 ; Chronic systolic congestive heart failure I50.22 ; Mixed hyperlipidemia E78.2 and BMI 45.0-49.9, adult Z68.42 [place] [address] [address]- 0081 Apr, 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.22 [place] [address] [place] [id number] [address]- 7109 Apr, Medicare annual wellness visit, initial Z00.00 [...] vaccine Z28.21 and Encounter for immunization Z23 [place] [id number] [place] [address] 35259- 8499 Apr, [place] [id number] [place] [address] 46225- 4612 Mar, 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.22 [place] [address] 86715- 1317 Mar, Chronic pain G89.29 [place] [id number] [place] [address] 38345- 1734 February, Chronic pain G89.29 ; Abnormal liver function test R94.5 and Degenerative disc disease at L5-S1 level M51.36 [place] [id number] [place] [address] 39070- 0639 Jan, [place] [id number] [place] [address] 87142- 3939 Jan, [place] [id number] [place] [address] 96493- 9590 Jan, [place] [id number] [place] [address] 76856- 7572 Jan, Abnormal liver function test R94.5 ; Dysthymic disorder F34.1 and Chronic pain G89.29 [place] [id number] [place] [address] 12187- 4272 Dec, [place] [id number] [place] [address] 25552- 7513 Dec, HTN (hypertension) I10 ; BMI 45.0-49.9, adult Z68.42 ; Chronic pain G89.29 ; Primary insomnia F51.01 ; Mixed hyperlipidemia E78.2 ; Dysthymic disorder F34.1 ; 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.22 ; Stasis dermatitis of both legs I87.2 and Chronic systolic congestive heart failure I50.22 [facility] [id number] [place] [address] 06414- 9766 Dec, Chronic pain G89.29 [facility] [id number] [place] [address] 60954 -3597 04 Dec, 2017 Lymphedema I89.0 and Chronic systolic congestive heart failure I50.22 [facility] [id number] [place] [address] 34723- 9863 Dec, [facility] [address] 04798- 1442 Nov, 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.22 [facility] [address] 67384- 5820 Nov, Chronic pain G89.29 and Dysthymic disorder F34.1 [facility] [id number] [place] [address] 51532- 2807 Nov, [facility] [address] 09523- 9696 Oct, HTN (hypertension) I10 ; Chronic pain G89.29 ; BMI 45.0-49.9 , adult Z68.42 ; Primary insomnia F51.01 ; Mixed hyperlipidemia E78.2 ; Dysthymic disorder F34.1 ; 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.22 ; Chronic congestive heart failure, unspecified congestive heart failure type I50.9 ; Acute non-recurrent maxillary sinusitis J01.00 and BMI 50.0-59.9, adult Z68.43 [facility] [id number] [place] [address] 42136- 4398 Oct, HTN (hypertension) I10 and Dysthymic disorder F34.1 [place] [id number] [place] [address] 61534- 2075 Oct, [place] [address] [address]- 6907 Oct, HTN (hypertension) I10 [place] [address] [address]- 3062 Oct, Chronic pain G89.29 [place] [address] [address]- 6897 Sep, [place] [address] [address]- 7000 Sep, HTN (hypertension) I10 ; Chronic pain G89.29 ; BMI 45.0-49.9 , adult Z68.42 ; Primary insomnia F51.01 ; Mixed hyperlipidemia E78.2 ; Dysthymic disorder F34.1 and 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.22 [place] [address] [address]- 5877 Sep, Chronic pain G89.29 [place] [address] [address]- 0995 Sep, Acute on chronic heart failure, unspecified heart failure type I50.9 [place] [address] [address]- 0030 Sep, Acute on chronic heart failure, unspecified heart failure type I50.9 ; 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.22 and BMI 50.0-59.9, adult Z68.43 [place] [address] [place] [id number] [address]- 7535 Sep, Acute on chronic heart failure, unspecified heart failure type I50.9 ; HTN (hypertension) I10 and 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.22 [place] [address] [place] [id number] [address]- 1088 Aug, Acute on chronic heart failure, unspecified heart failure type I50.9 ; HTN (hypertension) I10 ; 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.22 ; Cellulitis of right lower extremity L03.115 and BMI 50.0-59.9, adult Z68.43 [facility] [id number] [place] [address] 22503 -7425 Aug, Acute upper respiratory infection, unspecified J06.9 ; Other viral agents as the cause of diseases classified elsewhere B97.89 ; Constipation, unspecified constipation type K59.00 ; BMI 50.0-59.9, adult Z68.43 and BMI 60.0-69.9, adult Z68.44 [facility] [id number] [place] [address] 84361- 2326 Aug, Chronic pain G89.29 [place] [address] 88904- 9935 Jul, Chronic pain G89.29 [place] [address] 70431- 3808 Jul, Chronic pain G89.29 [facility] [address] 89315- 7042 Jun, Chronic pain G89.29 [place] [address] 68267- 9798 Jun, [place] [address] 52788- 9436 Jun, Chronic pain G89.29 [facility] [id number] [place] [address] 52519- 0905 May, Chronic pain G89.29 and 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.22 [place] [address] 83594- 6149 16 May, 2017 [place] [address] 25477- 2696 May, Chronic pain G89.29 and Anxiety F41.9 [place] [address] [place] [address]- 8051 May, 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.22 ; Social phobia F40.10 ; Morbid obesity E66.01 ; Chronic pain G89.29 ; HTN (hypertension) I10 ; Degenerative disc disease at L5-S1 level M51.36 ; BPH (benign prostatic hyperplasia) N40.0 ; Pain in right knee M25.561 and 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 [place] [address] 68502- 7835 Apr, Anxiety F41.9 [place] [address] 54001- 5349 Apr, [place] [address] 60504- 9186 Mar, [place] [address] 92438- 3682 Mar, Edema, unspecified type R60.9 and Anxiety F41.9 [place] [address] [id number] [place] [address] 73030- 0381 Mar, Social phobia F40.10 ; Mixed obsessional thoughts and acts F42.2 and Mild episode of recurrent major depressive disorder F33.0 [place] [address] [id number] [place] [address] 80531- 0892 Mar, Degenerative disc disease at L5-S1 level M51.36 [place] [address] [id number] [place] [address] 43009- 8214 Mar, [place] [address] [id number] [place] [address] 42945- 4634 Mar, [place] [address] 50020- 0348 Mar, [place] [address] [id number] [place] [address] 27040- 2690 February, Morbid obesity E66.01 ; Anxiety F41.9 ; Degenerative disc disease at L5-S1 level M51.36 ; BPH (benign prostatic hyperplasia) N40.0 ; Social phobia F40.10 ; HTN (hypertension) I10 ; Edema, unspecified type R60.9 and Screening cholesterol level Z13.220 [place] [address] [id number] [place] [address] 36787- 0524 February, Social phobia, generalized F40.11 [place] [address] 26197- 3324 February, Chronic pain G89.29 [place] [address] 83625- 9413 February, [place] [address] 93257- 5850 Jan, Chronic pain G89.29 [place] [id number] [place] [address] 99678- 8024 Jan, Panic disorder [episodic paroxysmal anxiety] without agoraphobia F41.0 [place] [address] [id number] [place] [address] 77564- 0288 Dec, Morbid obesity E66.01 ; Anxiety F41.9 ; Chronic pain G89.29 ; HTN (hypertension) I10 ; BPH (benign prostatic hyperplasia) N40.0 ; Generalized edema R60.1 and Cough R05 [place] [id number] [place] [address] 25569- 0195 14 Nov, 2016 Chronic pain G89.29 [place] [address] [id number] [place] [address] 62442- 0905 Nov, Social phobia, generalized F40.11 and Mild episode of recurrent major depressive disorder F33.0 [place] [address] 78485- 9107 Oct, Chronic pain G89.29 [place] [id number] [place] [address] 61388- 5115 Oct, Social phobia, generalized F40.11 [facility] [address] [address]- 5554 Sep, [facility] [id number] [place] [address] 06706- 0200 Sep, [facility] [id number] [place] [address] 93408- 9047 Sep, [facility] [id number] [place] [address] 19841- 2627 Sep, [facility] [id number] [place] [address] 08692- 1589 Sep, [facility] [address] [id number] [place] [address] 11655- 8179 Sep, Social phobia, generalized F40.11 and Mild episode of recurrent major depressive disorder F33.0 [facility] [id number] [place] [address] 62812- 6944 Sep, [facility] [id number] [place] [address] 84268- 9065 Aug, [facility] [address] [id number] [place] [address] 49097- 2002 Aug, [facility] [id number] [place] [address] 28853- 2247 17 Aug, 2016 Bronchitis J40 [facility] [id number] [place] [address] 78418- 0258 15 Aug, 2016 [facility] [id number] [place] [address] 13839- 6439 10 Aug, 2016 Osteoarthritis of knee, unspecified M17.9 [facility] [address] [place] [address] 23745- 2654 09 Aug, 2016 Morbid obesity E66.01 ; Chronic pain G89.29 ; Anxiety F41.9 ; Social phobia F40.10 ; HTN (hypertension) I10 ; Social phobia, generalized F40.11 ; Acute upper respiratory infection, unspecified J06.9 and Other viral agents as the cause of diseases classified elsewhere B97.89 [facility] [address] [place] [address] 45415- 3415 Aug, Social phobia, generalized F40.11 and Dysthymic disorder F34.1 [facility] [id number] [address]- 0226 Jul, [facility] [id number] [place] [address] 86202- 3120 Jun, [facility] [id number] [place] [address] 13041- 8817 May, [facility] [id number] [place] [address] 92815- 4914 May, [facility] [id number] [place] [address] 77401- 4534 May, [facility] [id number] [place] [address] 87182- 8114 May, [facility] [id number] [place] [address] 24756- 1009 May, [facility] [id number] [place] [address] 20039- 7012 May, [facility] [id number] [place] [address] 30953- 7477 May, [facility] [id number] [place] [address] 71562- 254 Apr, [facility] [address] [place] [address] 99167- 1551 Apr, Chondromalacia, right knee M94.261 [facility] [id number] [place] [address] 90110- 2546 Apr, Pain in unspecified hip M25.559 [facility] [id number] [place] [address] 84626- 7765 Mar, Social phobia, unspecified F40.10 and Pain in unspecified hip M25.559 [place] [address] 02413- 8982 February, [facility] [id number] [place] [address] 09809- 2301 February, Social phobia F40.10 [place] [address] 54963- 0008 February, Morbid obesity E66.01 ; Chronic pain G89.29 ; Social phobia F40.10 ; Pelvic pain in male R10.2 ; HTN (hypertension) I10 ; Degenerative disc disease at L5-S1 level M51.36 ; BPH (benign prostatic hyperplasia) N40.0 and Pain in right knee M25.561 [place] [address] 31925- 5515 14 Jan, 2016 [place] [address] 42063- 6716 Jan, [place] [address] 67694- 8573 Jan, [facility] [address] 00325- 4309 Dec, [place] [id number] [place] [address] 70197- 9238 Dec, [place] [address] 41986- 4098 Dec, [facility] [id number] [place] [address] 59671 -2862 Nov, Strep pharyngitis J02.0 ; Influenza A J10.1 and Cough R05 [facility] [id number] [place] [address] 14637- 9283 Nov, [facility] [address] 00427- 1709 Nov, [facility] [id number] [place] [address] 73320- 9466 Oct, HTN (hypertension) I10 ; Morbid obesity E66.01 ; Anxiety F41.9 ; Social phobia F40.10 ; Panic disorder F41.0 ; Degenerative disc disease at L5-S1 level M51.36 and Hypercholesterolemia E78.0 [facility] [id number] [place] [address] 93446- 5555 Oct, Panic disorder [episodic paroxysmal anxiety] without agoraphobia F41.0 and Social phobia, generalized F40.11 [facility] [id number] [place] [address] 23389- 3619 Oct, [facility] [id number] [place] [address] 54584- 7479 Sep, [facility] [id number] [place] [address] 89565- 7713 Sep, [facility] [id number] [place] [address] 56103- 1964 Sep, [facility] [id number] [place] [address] 00634- 3329 Sep, [facility] [id number] [place] [address] 68978- 3694 Aug, [facility] [id number] [place] [address] 80055- 4014 Aug, [facility] [id number] [place] [address] 24545- 8431 Aug, [facility] [id number] [place] [address] 59326- 9077 Aug, Social phobia F40.10 and Panic disorder F41.0 [facility] [id number] [place] [address] 22806- 5587 Aug, [facility] [id number] [place] [address] 73977- 8792 Aug, [facility] [id number] [place] [address] 68656- 2088 Aug, [facility] [id number] [place] [address] 61460- 3442 Aug, [facility] [address] 06990- 6234 Jul, [facility] [id number] [place] [address] 23614- 7106 Jul, Morbid obesity E66.01 ; Chronic pain G89.29 ; Anxiety F41.9 ; Social phobia F40.10 ; Panic disorder F41.0 ; Pelvic pain in male R10.2 ; Insomnia G47.00 and HTN (hypertension) I10 [facility] [id number] [place] [phone] Jul, [facility] [id number] [place] [phone]- [phone] Jul, [facility] [id number] [place] [id number]- [phone] Jun, Degenerative disc disease 722.6 [facility] [id number] [place] [address]- [address]395 Jun, Pain in joint, pelvic region and thigh 719.45 ; Morbid obesity 278.01 ; Essential hypertension, benign 401.1 and Constipation 564.00 [facility] [id number] [place] [phone]- 9824 May, [facility] [address] [address] May, [facility] [id number] [place] [address] 79131- [phone] May, [facility] [id number] [place] [phone]- [phone] May, [facility] [id number] [place] [address] 11538- [phone] May, [facility] [id number] [place] [address] 286[address]- 5640 May, [facility] [id number] [place] [address]- [address] May, Essential hypertension, benign 401.1 ; Anxiety state, unspecified 300.00 ; Panic disorder without agoraphobia 300.01 ; Social phobia 300.23 ; Morbid obesity 278.01 ; Other chronic pain 338.29 and Insomnia 780.52 [facility] [address] [address] May, Essential hypertension 401.9 [facility] [id number] [place] [address] 82808- 1616 May, Pain in joint, pelvic region and thigh 719.45 [facility] [id number] [place] [address] 35816- 2635 May, Essential hypertension, benign 401.1 [facility] [id number] [place] [address] 04612- 2879 May, Panic disorder without agoraphobia 300.01 and Social phobia 300.23 [facility] [id number] [place] [address] 49467- 7907 May, [facility] [id number] [place] [address] 72301- 0100 May, [facility] [id number] [place] [address] 03826- 9574 Apr, Chronic pain 338.29 [facility] [id number] [place] [address] 29974- 3586 Apr, [facility] [id number] [place] [address] 39154- 1415 Apr, [facility] [address] [place] [address]- [address] Apr, [facility] [id number] [place] [address] 68815- 2269 Apr, [facility] [id number] [place] [address] 72297- 2826 Apr, [facility] [id number] [place] [address] 69549- 3825 Apr, [facility] [id number] [place] [address] 54390- 5854 Apr, [facility] [id number] [place] [address] 06827- 9959 Apr, Essential hypertension, benign 401.1 ; Morbid obesity 278.01 ; Anxiety state, unspecified 300.00 ; Panic disorder without agoraphobia 300.01 ; Social phobia 300.23 and Chronic pain 338.29 [facility] [id number] [place] [address] 75512- 2739 Mar, [facility] [id number] [place] [address] 38417- 5428 Mar, [facility] [id number] [place] [address] 13306- 3224 Mar, [facility] [id number] [place] [address] 06221- 2623 Mar, [facility] [id number] [place] [address] 90883- 3276 Mar, Social phobia 300.23 and Panic disorder without agoraphobia 300.01 [facility] [id number] [place] [address] 08040- 1854 Mar, [facility] [id number] [place] [address] 61287- 5845 February, [facility] [id number] [place] [address] 24591- 8676 February, Major depression, recurrent 296.30 and No condition on Arena II V71.09 [facility] [id number] [address] February, [facility] [id number] [place] [address] 177491- 0843 February, Panic disorder without agoraphobia 300.01 ; Social phobia 300.23 and Morbid obesity 278.01 [facility] [id number] [address] Jan, [facility] [id number] [address] Jan, [facility] [id number] [place] [address] 22154- 4651 Dec, [facility] [id number] [address] Dec, [facility] [id number] [address] 27[address] Dec, [facility] [id number] [address] 5863 Dec, [facility] [id number] [address]- 7[address] Dec, [facility] [id number] [address]- 3208 Dec, [facility] [id number] [address]- 2[address] Dec, [facility] [id number] [address]- 3156 Dec, [facility] [id number] [id number] Dec, [facility] [id number] [address] Dec, [facility] [id number] [address]- 1293 Dec, [facility] [address] [facility] [id number] [place] [address]- 3048 Dec, [facility] [address] [facility] [id number] [place] [address]- 8419 Dec, [facility] [address] [facility] [id number] [place] [address]- 4030 Dec, [facility] [address] [facility] [id number] [place] [address]- 9937 Dec, [facility] [address] [facility] [id number] [place] [address]- 0220 Dec, IMMUNIZATIONS No Known Immunizations SOCIAL HISTORY Never Assessed REASON FOR VISIT Requests return call PLAN OF CARE VITAL SIGNS MEDICATIONS Medication Instructions Dosage Frequency Start Date End Date Duration Status Clindamycin HCl 300 MG Orally every 8 hrs 1 capsules 8h Sep, 07 days Active RESULTS No Results PROCEDURES No [...]
--- OUTSIDE RECORDS SUMMARY | 2018-11-30 17:20 | XMS REPORT ---
Author Author ROSE MARY BUCKNER [facility] Address [address] [place] [address] Care Team Providers Care Building Construction Inspector Name Role Phone ISA BUCKNERTA Unavailable PROBLEMS Type Condition ICD9-CM Code KLI93-DX Code Onset Dates Condition Status SNOMED Code Problem Primary insomnia F51.01 Active 3785365 Problem Constipation, unspecified constipation type K59.00 Active 40793472 Problem Mixed hyperlipidemia E78.2 Active 640811174 Problem Type 2 diabetes mellitus 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, unspecified whether care home insulin use E11.40 Active 78898124 Problem Controlled substance agreement terminated Z91.14 Active 949713941 Problem Major depressive disorder, recurrent, in full remission F33.42 Active 538338249 Problem Stasis dermatitis of both legs I87.2 Active 07101394 Problem BMI 50.0-59.9, adult Z68.43 Active 310132998 Problem Lymphedema I89.0 Active 102865375 Problem Chronic systolic congestive heart failure I50.22 Active 774349524 Problem Panic disorder F41.0 Active 497973006 Problem Chronic pain G89.29 Active 38615418 Problem Cardiomegaly I51.7 Active 4796804 Problem Abnormal liver function test R94.5 Active 145298015 Problem BPH (benign prostatic hyperplasia) N40.0 Active 001432014 Problem Dysthymic disorder F34.1 Active 87291941 Problem HTN (hypertension) I10 Active 75794141 Problem Mild episode of recurrent major depressive disorder F33.0 Active 146970107 Problem Degenerative disc disease at L5-S1 level M51.36 Active 59262499 Problem 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.22 Active 63711251 ALLERGIES No Information ENCOUNTERS Encounter Location Date Diagnosis [facility] [address] [facility] [id number] [address] Nov, [facility] [id number] [address] Oct, [facility] [address] Sep, [facility] [id number] [place] [address] 992464- 2626 Sep, [facility] [id number] [place] [address] 915586- 9494 Sep, [facility] [id number] [place] [address] 130767- 3493 Sep, Mild episode of recurrent major depressive disorder F33.0 and BMI 40.0-44.9, adult Z68.41 [facility] [id number] [place] [address] 804167- 8070 Aug, [facility] [id number] [place] [address] 95398- 1348 Aug, [facility] [id number] [place] [address] 51610- 8416 Aug, Onychomycosis B35.1 and Type 2 diabetes mellitus 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, unspecified whether care home insulin use E11.40 [facility] [address], [place] [address] Aug, [facility] [address], [place] [address] 2555 Jul, 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.22 ; Mild episode of recurrent major depressive disorder F33.0 and BMI 40.0-44.9, adult Z68.41 [facility] [address], [place] [address] Jul, [facility] [address] [address] Jul, 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.22 [facility] [address], [place] [address] 3516 Jul, [place] [facility] [id number] [place] [address] 32187- 1213 Jul, 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.22 [place] [address] [address]90- 2021 Jul, Chronic systolic congestive heart failure I50.22 and Mixed hyperlipidemia E78.2 [place] [address] 27335- 0071 Jun, [place] [address] 13971- 3465 Jun, 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.[address] 9[address]91- 5049 Jun, Onychomycosis B35.1 ; Self-care deficit for hygiene R46.0 and Nail hypertrophy L60.[address] 10974- 3831 Jun, Dental examination Z01.[address] 95718- 9885 Jun, Tooth infection K04.7 ; BMI 40.0-44.9, adult Z68.41 and Mouth pain K13.79 [address] [id number] [place] [address] 97436- 2985 Jun, 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.22 [facility] [facility] [id number] [place] [address] 34555- 5902 May, Degenerative disc disease at L5-S1 level M51.36 ; Chronic pain G89.29 and BMI 40.0-44.9, adult Z68.41 [place] [id number] [place] [address] 36973- 9102 May, [place] [id number] [place] [address] 20810- 7214 May, 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.22 [place] [address], [place] [address]- 7761 May, [place] [address], [place] [address]- 0965 May, Degenerative disc disease at L5-S1 level M51.36 [place] [address], [place] [address]- 6479 17 May, 2018 [place] [address], [place] [address]- 7053 May, [place] [address], [place] [address]- 5604 May, [place] [address], [place] [address]- 8688 Apr, 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.22 ; Chronic pain G89.29 ; Major depressive disorder, recurrent, in full remission F33.42 ; HTN (hypertension) I10 ; Chronic systolic congestive heart failure I50.22 ; Mixed hyperlipidemia E78.2 and BMI 45.0-49.9, adult Z68.42 [place] [address], [place] [address]- 9297 Apr, 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.22 [place] [address], [place] [address]- 5502 17 Apr, 2018 Medicare annual wellness visit, initial Z00.00 ; [...] vaccine Z28.21 and Encounter for immunization Z23 [id number] [place] [address] 66663- 6175 Apr, [address] [id number] [place] [address] 57398- 7619 Mar, 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.22 [id number] [place] [address] 63396- 3650 Mar, Chronic pain G89.29 [id number] [place] [address] 94900- 8958 February, Chronic pain G89.29 ; Abnormal liver function test R94.5 and Degenerative disc disease at L5-S1 level M51.36 [id number] [place] [address] 23702- 8619 Jan, [id number] [place] [address] 37656- 2463 Jan, [place] [id number] [place] [address] 91153- 1134 Jan, [address] [id number] [place] [address] 43237- 2958 Jan, Abnormal liver function test R94.5 ; Dysthymic disorder F34.1 and Chronic pain G89.29 [id number] [place] [address] 19520- 1043 Dec, [place] [id number] [place] [address] 69150- 3145 Dec, HTN (hypertension) I10 ; BMI 45.0-49.9, adult Z68.42 ; Chronic pain G89.29 ; Primary insomnia F51.01 ; Mixed hyperlipidemia E78.2 ; Dysthymic disorder F34.1 ; 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.22 ; Stasis dermatitis of both legs I87.2 and Chronic systolic congestive heart failure I50.[address] [place] [address]- 9687 Dec, Chronic pain G89.29 [facility] [id number] [place] [address] 37803 -9129 04 Dec, 2017 Lymphedema I89.0 and Chronic systolic congestive heart failure I50.22 [facility] [id number] [place] [address] 65070- 1417 Dec, [facility] [address] 79990- 3642 Nov, 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.22 [place] [address] 22026- 3215 Nov, Chronic pain G89.29 and Dysthymic disorder F34.1 [place] [address] 77121- 3604 Nov, [facility] [id number] [place] [address] 28006- 5079 Oct, HTN (hypertension) I10 ; Chronic pain G89.29 ; BMI 45.0-49.9 , adult Z68.42 ; Primary insomnia F51.01 ; Mixed hyperlipidemia E78.2 ; Dysthymic disorder F34.1 ; 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.22 ; Chronic congestive heart failure, unspecified congestive heart failure type I50.9 ; Acute non-recurrent maxillary sinusitis J01.00 and BMI 50.0-59.9, adult Z68.43 [place] [id number] [place] [address] 67933- 1885 Oct, HTN (hypertension) I10 and Dysthymic disorder F34.1 [place] [id number] [place] [address] 94807- 1439 Oct, [place] [id number] [place] [address] 30957- 9353 Oct, HTN (hypertension) I10 [place] [address] [place] [address]- 7964 Oct, Chronic pain G89.29 [facility] [id number] [place] [address] 41716- 3244 Sep, [facility] [id number] [place] [address] 42537- 7143 Sep, HTN (hypertension) I10 ; Chronic pain G89.29 ; BMI 45.0-49.9 , adult Z68.42 ; Primary insomnia F51.01 ; Mixed hyperlipidemia E78.2 ; Dysthymic disorder F34.1 and 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.22 [place] [id number] [place] [address] 89578- 8555 Sep, Chronic pain G89.29 [place] [id number] [place] [address] 86810- 1957 Sep, Acute on chronic heart failure, unspecified heart failure type I50.9 [facility] [id number] [place] [address] 60434- 7692 Sep, Acute on chronic heart failure, unspecified heart failure type I50.9 ; 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.22 and BMI 50.0-59.9, adult Z68.43 [place] [id number] [place] [address] 62829- 3411 Sep, Acute on chronic heart failure, unspecified heart failure type I50.9 ; HTN (hypertension) I10 and 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.22 [facility] [address] [place] [address] 24285- 7655 Aug, Acute on chronic heart failure, unspecified heart failure type I50.9 ; HTN (hypertension) I10 ; 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.22 ; Cellulitis of right lower extremity L03.115 and BMI 50.0-59.9, adult Z68.43 [facility] [address] [place] [address] 48434 -1962 Aug, Acute upper respiratory infection, unspecified J06.9 ; Other viral agents as the cause of diseases classified elsewhere B97.89 ; Constipation, unspecified constipation type K59.00 ; BMI 50.0-59.9, adult Z68.43 and BMI 60.0-69.9, adult Z68.44 [place] [id number] [place] [address] 97645- 6411 Aug, Chronic pain G89.29 [place] [address] 87440- 7557 Jul, Chronic pain G89.29 [place] [address] 06307- 4166 Jul, Chronic pain G89.29 [place] [id number] [place] [address] 61761- 2182 Jun, Chronic pain G89.29 [place] [id number] [place] [address] 67186- 7929 Jun, [place] [address] 15605- 0375 Jun, Chronic pain G89.29 [place] [id number] [place] [address] 81336- 8994 May, Chronic pain G89.29 and 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.22 [place] [id number] [place] [address] 23734- 5388 16 May, 2017 [place] [id number] [place] [address] 07454- 7937 11 May, 2017 Chronic pain G89.29 and Anxiety F41.9 [place] [id number] [place] [address] 79166- 8271 10 May, 2017 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.22 ; Social phobia F40.10 ; Morbid obesity E66.01 ; Chronic pain G89.29 ; HTN (hypertension) I10 ; Degenerative disc disease at L5-S1 level M51.36 ; BPH (benign prostatic hyperplasia) N40.0 ; Pain in right knee M25.561 and 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 [place] [id number] [place] [address] 34269- 2023 Apr, Anxiety F41.9 [place] [id number] [place] [address] 42466- 4088 Apr, [place] [id number] [place] [address] 75145- 7412 Mar, [place] [id number] [place] [address] 01843- 3036 Mar, Edema, unspecified type R60.9 and Anxiety F41.9 [place] [id number] [place] [address] 69305- 3637 Mar, Social phobia F40.10 ; Mixed obsessional thoughts and acts F42.2 and Mild episode of recurrent major depressive disorder F33.0 [place] [id number] [place] [address] 05960- 1534 Mar, Degenerative disc disease at L5-S1 level M51.36 [place] [id number] [place] [address] 46796- 1514 Mar, [place] [id number] [place] [address] 59977- 7545 Mar, [place] [id number] [place] [address] 39475- 5510 Mar, [place] [id number] [place] [address] 06493- 5296 February, Morbid obesity E66.01 ; Anxiety F41.9 ; Degenerative disc disease at L5-S1 level M51.36 ; BPH (benign prostatic hyperplasia) N40.0 ; Social phobia F40.10 ; HTN (hypertension) I10 ; Edema, unspecified type R60.9 and Screening cholesterol level Z13.220 [place] [address] [place] [address]- 6319 February, Social phobia, generalized F40.11 [facility] [id number] [place] [address] 15756- 9611 February, Chronic pain G89.29 [facility] [id number] [place] [address] 07451- 3607 February, [facility] [id number] [place] [address] 05782- 5804 Jan, Chronic pain G89.29 [facility] [id number] [place] [address] 15102- 2967 Jan, Panic disorder [episodic paroxysmal anxiety] without agoraphobia F41.0 [place] [id number] [place] [address] 89982- 3221 Dec, Morbid obesity E66.01 ; Anxiety F41.9 ; Chronic pain G89.29 ; HTN (hypertension) I10 ; BPH (benign prostatic hyperplasia) N40.0 ; Generalized edema R60.1 and Cough R05 [place] [id number] [place] [address] 87337- 1004 14 Nov, 2016 Chronic pain G89.29 [facility] [id number] [place] [address] 06792- 8266 Nov, Social phobia, generalized F40.11 and Mild episode of recurrent major depressive disorder F33.0 [facility] [address] [place] [address] 64604- 0572 Oct, Chronic pain G89.29 [facility] [id number] [place] [address] 41694- 1471 Oct, Social phobia, generalized F40.11 [facility] [id number] [place] [address] 05698- 1860 Sep, [facility] [id number] [place] [address] 18448- 3128 Sep, [facility] [address], [place] [address]- 4698 Sep, [facility] [id number] [place] [address] 06497- 7289 Sep, [facility] [id number] [place] [address] 35919- 3452 Sep, [facility] [id number] [place] [address] 53275- 0117 Sep, Social phobia, generalized F40.11 and Mild episode of recurrent major depressive disorder F33.0 [place] [id number] [place] [address] 44604- 8815 Sep, [facility] [id number] [place] [address] 57299- 2457 Aug, [facility] [id number] [place] [address] 41825- 1272 Aug, [facility] [id number] [place] [address] 89768- 7051 17 Aug, 2016 Bronchitis J40 [place] [id number] [place] [address] 96913- 3603 15 Aug, 2016 [facility] [id number] [place] [address] 84550- 2834 Aug, Osteoarthritis of knee, unspecified M17.9 [place] [id number] [place] [address] 88598- 9361 09 Aug, 2016 Morbid obesity E66.01 ; Chronic pain G89.29 ; Anxiety F41.9 ; Social phobia F40.10 ; HTN (hypertension) I10 ; Social phobia, generalized F40.11 ; Acute upper respiratory infection, unspecified J06.9 and Other viral agents as the cause of diseases classified elsewhere B97.89 [facility] [address] [place] [address] 65039- 9689 08 Aug, 2016 Social phobia, generalized F40.11 and Dysthymic disorder F34.1 [facility] [id number] [address]- 4294 Jul, [facility] [address] [facility] [id number] [place] [address] 98931- 9456 Jun, [facility] [id number], [place] [address]- 4101 May, [facility] [address] [facility] [id number] [place] [address] 01104- 5171 May, [facility] [address] [facility] [id number] [place] [address], [place] [address]- 3771 May, [facility] [id number] [place] [address] 42318- 3228 May, [facility] [id number] [place] [address] 49267- 2092 May, [facility] [address] [place] [address] 30979- 1789 May, [facility] [id number] [place] [address] 39042- 5260 May, [facility] [id number] [address]- 8675 Apr, [facility] [address], [place] [address]- 2216 Apr, Chondromalacia, right knee M94.261 [facility] [id number], [place] [address]- 5510 Apr, Pain in unspecified hip M25.559 [facility] [id number] [place] [address] 73061- 6329 Mar, Social phobia, unspecified F40.10 and Pain in unspecified hip M25.559 [facility] [address], [place] [address]- 4512 February, [facility] [id number] [place] [address] 66393- 4385 February, Social phobia F40.10 [facility] [id number] [place] [address] 23930- 9365 February, Morbid obesity E66.01 ; Chronic pain G89.29 ; Social phobia F40.10 ; Pelvic pain in male R10.2 ; HTN (hypertension) I10 ; Degenerative disc disease at L5-S1 level M51.36 ; BPH (benign prostatic hyperplasia) N40.0 and Pain in right knee M25.561 [facility] [id number] [place] [address] 64717- 0506 14 Jan, 2016 [facility] [id number] [place] [address] 74742- 7563 Jan, [place] [id number] [place] [address] 26630- 6588 Jan, [facility] [id number] [place] [address] 28401- 0992 Dec, [facility] [id number] [place] [address] 39154- 3422 Dec, [facility] [id number] [place] [address] 71231- 5794 Dec, [facility] [address] [place] [address] 94586 -6412 Nov, Strep pharyngitis J02.0 ; Influenza A J10.1 and Cough R05 [facility] [id number] [place] [address] 53042- 5494 Nov, [facility] [id number] [place] [address] 85343- 4867 Nov, [facility] [id number] [place] [address] 24523- 5144 Oct, HTN (hypertension) I10 ; Morbid obesity E66.01 ; Anxiety F41.9 ; Social phobia F40.10 ; Panic disorder F41.0 ; Degenerative disc disease at L5-S1 level M51.36 and Hypercholesterolemia E78.0 [facility] [id number] [place] [address] 93172- 6622 Oct, Panic disorder [episodic paroxysmal anxiety] without agoraphobia F41.0 and Social phobia, generalized F40.11 [facility] [address] 12143- 1077 Oct, [facility] [address] 72438- 3753 Sep, [facility] [address] 16296- 0108 Sep, [facility] [address] 83695- 2983 Sep, [facility] [address] 79981- 4286 Sep, [facility] [id number] [place] [address] 63764- 2895 Aug, [facility] [id number] [place] [address] 91838- 7706 Aug, [facility] [id number] [place] [address] 47760- 0461 Aug, [facility] [id number] [place] [address] 39625- 2927 Aug, Social phobia F40.10 and Panic disorder F41.0 [facility] [id number] [place] [address] 45460- 8722 Aug, [facility] [id number] [place] [address] 84080- 8470 Aug, [facility] [id number] [place] [address] 69709- 8927 Aug, [facility] [id number] [place] [address] 51682- 8554 Aug, [facility] [id number] [place] [address] 77319- 6289 Jul, [facility] [id number] [place] [address] 90548- 2276 Jul, Morbid obesity E66.01 ; Chronic pain G89.29 ; Anxiety F41.9 ; Social phobia F40.10 ; Panic disorder F41.0 ; Pelvic pain in male R10.2 ; Insomnia G47.00 and HTN (hypertension) I10 [facility] [id number] [place] [address] [phone]- [phone] Jul, [facility] [id number] [place] [address] [phone]- [phone] Jul, [facility] [address] [phone] Jun, Degenerative disc disease 722.6 [facility] [id number] [place] [address] [phone]- [phone] Jun, Pain in joint, pelvic region and thigh 719.45 ; Morbid obesity 278.01 ; Essential hypertension, benign 401.1 and Constipation 564.00 [facility] [id number] [place] [address] 85947- 6912 May, [facility] [id number] [place] [address] [id number]- [phone] May, [facility] [id number] [place] [address] [phone]- [phone] May, [facility] [facility] [address] [address] May, [facility] [id number] [place] [address] 94092- 1109 May, [facility] [id number] [place] [address] 71942- 3008 May, [facility] [id number] [address] May, Essential hypertension, benign 401.1 ; Anxiety state, unspecified 300.00 ; Panic disorder without agoraphobia 300.01 ; Social phobia 300.23 ; Morbid obesity 278.01 ; Other chronic pain 338.29 and Insomnia 780.52 [facility] [id number] [place] [address] 56316- 7439 May, Essential hypertension 401.9 [facility] [id number] [place] [address] 19664- 0620 May, Essential hypertension, benign 401.1 [facility] [id number] [place] [address] 08934- 5574 May, Pain in joint, pelvic region and thigh 719.45 [facility] [id number] [place] [address] 31434- 8755 May, Panic disorder without agoraphobia 300.01 and Social phobia 300.23 [facility] [id number] [place] [address] 56262- 0472 May, [facility] [id number] [place] [address] 53830- 5163 May, [facility] [id number] [place] [address] 20451- 2960 Apr, Chronic pain 338.29 [facility] [id number] [place] [address] 41027- 0431 Apr, [facility] [id number] [place] [address] 98249- 4260 Apr, [facility] [id number] [place] [address] 40400- 3255 Apr, [facility] [id number] [place] [address] 94560- 4161 Apr, [facility] [id number] [place] [address] 49265- 2412 Apr, [facility] [id number] [place] [address] 55569- 7343 Apr, [facility] [id number] [place] [address] 95456- 1940 Apr, [facility] [id number] [place] [address] 83641- 1179 Apr, Essential hypertension, benign 401.1 ; Morbid obesity 278.01 ; Anxiety state, unspecified 300.00 ; Panic disorder without agoraphobia 300.01 ; Social phobia 300.23 and Chronic pain 338.29 [facility] [id number] [place] [address] 36758- 7691 Mar, [facility] [id number] [place] [address] 58533- 4227 Mar, [facility] [id number] [place] [address] 59426- 6336 Mar, [facility] [id number] [place] [address] 35501- 6794 Mar, [facility] [id number] [place] [address] 97596- 1296 Mar, Social phobia 300.23 and Panic disorder without agoraphobia 300.01 [facility] [id number] [place] [address] 68321- 1941 Mar, [facility] [id number] [place] [address] 63937- 0856 February, [facility] [id number] [place] [address] 31532- 9116 February, Major depression, recurrent 296.30 and No condition on [place] II V71.09 [facility] [id number] [place] [address] 75984- 0085 February, [facility] [id number] [place] [address] 13633- 5819 February, Panic disorder without agoraphobia 300.01 ; Social phobia 300.23 and Morbid obesity 278.01 [facility] [id number] [address] 14 Jan, 2015 [facility] [id number] [address] Jan, [facility] [address] [facility] [id number] [address] Dec, [facility] [id number] [address] 8014 Dec, [facility] [id number], [place] [address]- 6559 Dec, [facility] [id number], [place] [address]- 8117 Dec, [facility] [id number] [address]- 3256 Dec, [facility] [id number], [place] [address]- 7383 Dec, [facility] [id number] [place] [address]- 9941 Dec, [facility] [id number], [place] [address]- 1194 Dec, [facility] [id number] [address]- 9161 Dec, [facility] [id number], [place] [address]- 9834 Dec, [facility] [id number] [address]- 3964 Dec, [facility] [id number] [address]01 Dec, [facility] [id number] [address]- 9126 Dec, [facility] [address] [facility] [id number] [place] [address]- 8236 Dec, [facility] [address] [facility] [id number] [place] [address]- 8551 Dec, [facility] [address] [facility] [id number] [place] [address]- 4737 Dec, IMMUNIZATIONS No Known Immunizations SOCIAL HISTORY Never Assessed REASON FOR VISIT [facility] call PLAN OF CARE VITAL SIGNS MEDICATIONS [...]
--- OUTSIDE RECORDS SUMMARY | 2018-11-30 17:20 | XMS REPORT ---
Author Author TONO PIA Organization [facility] Address [address] [place] [address] Care Team Providers Care Neckties Painter Name Role Phone LAVERNEPIA MOYER Unavailable PROBLEMS Type Condition ICD9-CM Code [id number] Code Onset Dates Condition Status SNOMED Code Problem Primary insomnia F51.01 Active 7154385 Problem Constipation, unspecified constipation type K59.00 Active 61699868 Problem Mixed hyperlipidemia E78.2 Active 713385171 Problem Type 2 diabetes mellitus 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, unspecified whether retirement insulin use E11.40 Active 13974934 Problem Controlled substance agreement terminated Z91.14 Active 527688267 Problem Major depressive disorder, recurrent, in full remission F33.42 Active 555344003 Problem Stasis dermatitis of both legs I87.2 Active 75151133 Problem BMI 50.0-59.9, adult Z68.43 Active 198323546 Problem Lymphedema I89.0 Active 617654750 Problem Chronic systolic congestive heart failure I50.22 Active 124475997 Problem Panic disorder F41.0 Active 187275786 Problem Chronic pain G89.29 Active 90124686 Problem Cardiomegaly I51.7 Active 4713044 Problem Abnormal liver function test R94.5 Active 490254737 Problem BPH (benign prostatic hyperplasia) N40.0 Active 979263988 Problem Dysthymic disorder F34.1 Active 25770279 Problem HTN (hypertension) I10 Active 98333479 Problem Mild episode of recurrent major depressive disorder F33.0 Active 073365121 Problem Degenerative disc disease at L5-S1 level M51.36 Active 79655502 Problem 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.22 Active 14476811 ALLERGIES Substance Reaction Event Type Date Status Paxil "messed with my heart" Drug Allergy Sep, Active Wellbutrin "can't remember" Non Drug Allergy Sep, Active ENCOUNTERS Encounter Location Date Diagnosis [facility] [address] [facility] [id number] [address] Nov, [facility] [address] [address] Oct, [facility] [address] [address] 2546 Oct, [facility] [address] [address] Sep, [facility] [address] [address] Sep, [facility] [address] [address] 5[address] Sep, Mild episode of recurrent major depressive disorder F33.0 and BMI 40.0-44.9, adult Z68.41 [facility] [address] [address] Aug, [facility] [address] [address] [address] Aug, [facility] [address] [address] [address] Aug, Onychomycosis B35.1 and Type 2 diabetes mellitus 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, unspecified whether intermediate teacher insulin use E11.40 [facility] [address] [address] Aug, [facility] [address] [address] Jul, 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.22 ; Mild episode of recurrent major depressive disorder F33.0 and BMI 40.0-44.9, adult Z68.41 [facility] [address] [address] Jul, [facility] [id number] [address] Jul, 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.22 [facility] [id number] [place] [address] 79043- 7221 Jul, [facility] [address] 47645- 5235 Jul, 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.22 [facility] [address] 29037- 3240 Jul, Chronic systolic congestive heart failure I50.22 and Mixed hyperlipidemia E78.2 [facility] [facility] [address] 68866- 6458 Jun, [facility] [address] 76204- 8086 Jun, 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.22 [facility] [address] 17003- 5104 Jun, Onychomycosis B35.1 ; Self-care deficit for hygiene R46.0 and Nail hypertrophy L60.2 [facility] [address] 60680- 0602 Jun, Dental examination Z01.[address] 24725- 4775 Jun, Tooth infection K04.7 ; BMI 40.0-44.9, adult Z68.41 and Mouth pain K13.79 [facility] [id number] [place] [address] 15425- 4222 Jun, 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.22 [facility] [address] 02828- 8034 May, Degenerative disc disease at L5-S1 level M51.36 ; Chronic pain G89.29 and BMI 40.0-44.9, adult Z68.41 [facility] [address] 03715- 5339 May, [facility] [address], [place] [address] 9109 May, Type 2 diabetes mellitus with diabetic chronic kidney disease E11.22 [facility] [address], [place] [address] 7259 May, [facility] [address] [address] 7687 May, Degenerative disc disease at L5-S1 level M51.36 [facility] [address], [place] [address] 4[address] 17 May, 2018 [facility] [address] [address] 2570 May, [facility] [address] [address] 2967 May, [facility] [address] [address] 8886 Apr, Type 2 diabetes mellitus with diabetic chronic kidney disease E11.22 ; Chronic pain G89.29 ; Major depressive disorder, recurrent, in full remission F33.42 ; HTN (hypertension) I10 ; Chronic systolic congestive heart failure I50.22 ; Mixed hyperlipidemia E78.2 and BMI 45.0-49.9, adult Z68.42 [facility] [id number] [address] 6959 Apr, Type 2 diabetes mellitus with diabetic chronic kidney disease E11.22 [facility] [id number] [address] 4482 17 Apr, 2018 Medicare annual wellness visit, [...] vaccine Z28.21 and Encounter for immunization Z23 [facility] [id number] [place] [address] 93884- 0646 Apr, [facility] [id number] [place] [address] 59743- 4754 Mar, Type 2 diabetes mellitus with diabetic chronic kidney disease E11.22 [facility] [place] [id number] [place] [address] 28645- 5823 Mar, Chronic pain G89.29 [facility] [id number] [place] [address] 97659- 6357 February, Chronic pain G89.29 ; Abnormal liver function test R94.5 and Degenerative disc disease at L5-S1 level M51.36 [facility] [id number] [place] [address] 11564- 8687 Jan, [facility] [id number] [place] [address] 44553- 3809 Jan, [facility] [id number] [place] [address] 00674- 2569 Jan, [facility] [id number] [place] [address] 64796- 5334 Jan, Abnormal liver function test R94.5 ; Dysthymic disorder F34.1 and Chronic pain G89.29 [place] [address] [place] [address] 93384- 7184 Dec, [place] [id number] [place] [address] 45578- 3424 Dec, HTN (hypertension) I10 ; BMI 45.0-49.9, adult Z68.42 ; Chronic pain G89.29 ; Primary insomnia F51.01 ; Mixed hyperlipidemia E78.2 ; Dysthymic disorder F34.1 ; Type 2 diabetes mellitus with diabetic chronic kidney disease E11.22 ; Stasis dermatitis of both legs I87.2 and Chronic systolic congestive heart failure I50.22 [facility] [id number] [place] [address] 11341- 2908 Dec, Chronic pain G89.29 [facility] [id number] [place] [address] 64165 -3956 04 Dec, 2017 Lymphedema I89.0 and Chronic systolic congestive heart failure I50.22 [facility] [id number] [place] [address] 01752- 6999 Dec, [facility] [id number] [place] [address] 90868- 5264 Nov, Type 2 diabetes mellitus with diabetic chronic kidney disease E11.22 [facility] [id number] [place] [address] 03888- 6000 Nov, Chronic pain G89.29 and Dysthymic disorder F34.1 [facility] [id number] [place] [address] 49000- 2557 Nov, [facility] [id number] [place] [address] 37600- 6169 Oct, HTN (hypertension) I10 ; Chronic pain G89.29 ; BMI 45.0-49.9 , adult Z68.42 ; Primary insomnia F51.01 ; Mixed hyperlipidemia E78.2 ; Dysthymic disorder F34.1 ; Type 2 diabetes mellitus with diabetic chronic kidney disease E11.22 ; Chronic congestive heart failure, unspecified congestive heart failure type I50.9 ; Acute non-recurrent maxillary sinusitis J01.00 and BMI 50.0-59.9, adult Z68.43 [facility] [id number] [place] [address] 25884- 6310 Oct, HTN (hypertension) I10 and Dysthymic disorder F34.1 [facility] [place] [id number] [place] [address] 01522- 7644 Oct, [facility] [address] [place] [address]- 3260 Oct, HTN (hypertension) I10 [facility] [id number] [place] [address] 69199- 0755 Oct, Chronic pain G89.29 [facility] [id number] [place] [address] 53644- 3460 Sep, [facility] [place] [id number] [place] [address] 50755- 9524 Sep, HTN (hypertension) I10 ; Chronic pain G89.29 ; BMI 45.0-49.9 , adult Z68.42 ; Primary insomnia F51.01 ; Mixed hyperlipidemia E78.2 ; Dysthymic disorder F34.1 and Type 2 diabetes mellitus with diabetic chronic kidney disease E11.22 [facility] [id number] [place] [address] 72182- 4075 Sep, Chronic pain G89.29 [facility] [place] [id number] [place] [address] 13209- 2204 Sep, Acute on chronic heart failure, unspecified heart failure type I50.9 [facility] [id number] [place] [address] 09261- 9539 Sep, Acute on chronic heart failure, unspecified heart failure type I50.9 ; Type 2 diabetes mellitus with diabetic chronic kidney disease E11.22 and BMI 50.0-59.9, adult Z68.43 [facility] [address] [place] [address] 28510- 4079 Sep, Acute on chronic heart failure, unspecified heart failure type I50.9 ; HTN (hypertension) I10 and Type 2 diabetes mellitus with diabetic chronic kidney disease E11.22 [place] [id number] [place] [address] 28716- 9384 Aug, Acute on chronic heart failure, unspecified heart failure type I50.9 ; HTN (hypertension) I10 ; Type 2 diabetes mellitus with diabetic chronic kidney disease E11.22 ; Cellulitis of right lower extremity L03.115 and BMI 50.0-59.9, adult Z68.43 [facility] [id number] [place] [address] 88277 -4106 Aug, Acute upper respiratory infection, unspecified J06.9 ; Other viral agents as the cause of diseases classified elsewhere B97.89 ; Constipation, unspecified constipation type K59.00 ; BMI 50.0-59.9, adult Z68.43 and BMI 60.0-69.9, adult Z68.44 [facility] [id number] [place] [address] 49186- 2827 Aug, Chronic pain G89.29 [place] [address] 25955- 4388 Jul, Chronic pain G89.29 [place] [address] 18133- 5227 Jul, Chronic pain G89.29 [facility] [address] 92268- 4289 Jun, Chronic pain G89.29 [place] [id number] [place] [address] 53276- 6051 Jun, [facility] [address] 22849- 3030 06 Jun, 2017 Chronic pain G89.29 [facility] [id number] [place] [address] 11021- 7498 May, Chronic pain G89.29 and 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.22 [facility] [id number] [place] [address] 47182- 0075 May, [place] [address] 17327- 6760 May, Chronic pain G89.29 and Anxiety F41.9 [facility] [id number] [place] [address] 41726- 9755 May, Type 2 diabetes mellitus with diabetic chronic kidney disease E11.22 ; Social phobia F40.10 ; Morbid obesity E66.01 ; Chronic pain G89.29 ; HTN (hypertension) I10 ; Degenerative disc disease at L5-S1 level M51.36 ; BPH (benign prostatic hyperplasia) N40.0 ; Pain in right knee M25.561 and 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 [place] [id number] [place] [address] 63753- 4342 Apr, Anxiety F41.9 [facility] [id number] [place] [address] 68741- 9268 Apr, [facility] [place] [id number] [place] [address] 08586- 5246 Mar, [facility] [id number] [place] [address] 40607- 4359 Mar, Edema, unspecified type R60.9 and Anxiety F41.9 [place] [id number] [place] [address] 52236- 9768 Mar, Social phobia F40.10 ; Mixed obsessional thoughts and acts F42.2 and Mild episode of recurrent major depressive disorder F33.0 [facility] [facility] [id number] [place] [address] 95358- 1977 Mar, Degenerative disc disease at L5-S1 level M51.36 [facility] [facility] [id number] [place] [address] 28262- 8237 Mar, [place] [id number] [place] [address] 64965- 3478 Mar, [facility] [place] [id number] [place] [address] 27288- 4216 Mar, [facility] [place] [id number] [place] [address] 20596- 7200 February, Morbid obesity E66.01 ; Anxiety F41.9 ; Degenerative disc disease at L5-S1 level M51.36 ; BPH (benign prostatic hyperplasia) N40.0 ; Social phobia F40.10 ; HTN (hypertension) I10 ; Edema, unspecified type R60.9 and Screening cholesterol level Z13.220 [place] [address] 06117- 3838 February, Social phobia, generalized F40.11 [place] [address] 47234- 2434 February, Chronic pain G89.29 [place] [address] 80441- 7737 February, [place] [address] 53214- 7235 Jan, Chronic pain G89.29 [place] [address] 22043- 4854 Jan, Panic disorder [episodic paroxysmal anxiety] without agoraphobia F41.[address] 34178- 6876 Dec, Morbid obesity E66.01 ; Anxiety F41.9 ; Chronic pain G89.29 ; HTN (hypertension) I10 ; BPH (benign prostatic hyperplasia) N40.0 ; Generalized edema R60.1 and Cough R05 [place] [id number] [place] [address] 06870- 5907 14 Nov, 2016 Chronic pain G89.29 [place] [id number] [place] [address] 15243- 9755 Nov, Social phobia, generalized F40.11 and Mild episode of recurrent major depressive disorder F33.0 [place] [address] 86956- 7422 Oct, Chronic pain G89.29 [place] [id number] [place] [address] 57783- 6927 Oct, Social phobia, generalized F40.11 [place] [address] 54146- 9605 Sep, [facility] [address], [place] [address]- 6368 Sep, [facility] [id number] [place] [address] 10919- 6666 Sep, [facility] [id number] [place] [address] 45794- 8633 Sep, [facility] [id number] [place] [address] 85330- 2160 Sep, [facility] [id number] [place] [address] 00148- 6464 Sep, Social phobia, generalized F40.11 and Mild episode of recurrent major depressive disorder F33.0 [facility] [id number] [place] [address] 23043- 1862 Sep, [facility] [id number] [place] [address] 26519- 3446 Aug, [facility] [id number] [place] [address] 98261- 2343 Aug, [facility] [id number] [place] [address] 41978- 5953 Aug, Bronchitis J40 [facility] [id number] [place] [address] 68252- 1835 15 Aug, 2016 [facility] [id number] [place] [address] 18964- 6958 10 Aug, 2016 Osteoarthritis of knee, unspecified M17.9 [facility] [id number] [place] [address] 30260- 2616 09 Aug, 2016 Morbid obesity E66.01 ; Chronic pain G89.29 ; Anxiety F41.9 ; Social phobia F40.10 ; HTN (hypertension) I10 ; Social phobia, generalized F40.11 ; Acute upper respiratory infection, unspecified J06.9 and Other viral agents as the cause of diseases classified elsewhere B97.89 [facility] [address] [address]- 6451 Aug, Social phobia, generalized F40.11 and Dysthymic disorder F34.1 [facility] [address] [address]- 3787 Jul, [facility] [id number] [place] [address] 55659- 6560 Jun, [facility] [id number] [place] [address] 81493- 6564 May, [facility] [id number] [place] [address] 31414- 8707 May, [facility] [id number] [place] [address] 23842- 0612 May, [facility] [id number] [place] [address] 12475- 9530 May, [facility] [id number] [place] [address] 43251- 3795 May, [facility] [id number] [place] [address] 84656- 2615 May, [facility] [address] [address]- 4503 May, [facility] [id number] [place] [address] 71065- 8196 Apr, [facility] [id number] [place] [address] 10814- 6731 Apr, Chondromalacia, right knee M94.261 [facility] [id number] [place] [address] 51240- 4034 Apr, Pain in unspecified hip M25.559 [facility] [id number] [place] [address] 95418- 6439 Mar, Social phobia, unspecified F40.10 and Pain in unspecified hip M25.559 [facility] [id number] [place] [address] 60866- 9927 February, [facility] [id number] [place] [address] 23915- 1474 February, Social phobia F40.10 [facility] [id number] [place] [address] 08123- 8170 February, Morbid obesity E66.01 ; Chronic pain G89.29 ; Social phobia F40.10 ; Pelvic pain in male R10.2 ; HTN (hypertension) I10 ; Degenerative disc disease at L5-S1 level M51.36 ; BPH (benign prostatic hyperplasia) N40.0 and Pain in right knee M25.561 [facility] [id number] [place] [address] 54513- 5492 14 Jan, 2016 [facility] [address] 42889- 2026 Jan, [facility] [id number] [place] [address] 73030- 0868 Jan, [facility] [id number] [place] [address] 90062- 1012 Dec, [facility] [id number] [place] [address] 54040- 2931 Dec, [facility] [id number] [place] [address] 03515- 2848 Dec, [facility] [id number] [place] [address] 03240 -4986 Nov, Strep pharyngitis J02.0 ; Influenza A J10.1 and Cough R05 [facility] [id number] [place] [address] 19339- 2827 Nov, [facility] [id number] [place] [address] 22500- 7093 Nov, [facility] [id number] [place] [address] 01819- 9787 Oct, HTN (hypertension) I10 ; Morbid obesity E66.01 ; Anxiety F41.9 ; Social phobia F40.10 ; Panic disorder F41.0 ; Degenerative disc disease at L5-S1 level M51.36 and Hypercholesterolemia E78.0 [facility] [id number] [place] [address] 16946- 8701 Oct, Panic disorder [episodic paroxysmal anxiety] without agoraphobia F41.0 and Social phobia, generalized F40.11 [facility] [id number] [place] [address] 87202- 7380 Oct, [facility] [address] 07381- 4269 Sep, [facility] [id number] [place] [address] 76339- 1841 Sep, [facility] [address] 84559- 7958 Sep, [facility] [id number] [place] [address] 78852- 0255 Sep, [facility] [id number] [place] [address] 89768- 6005 Aug, [facility] [id number] [place] [address] 02943- 7725 Aug, [facility] [id number] [place] [address] 57813- 9383 Aug, [facility] [id number] [place] [address] 74391- 2091 Aug, Social phobia F40.10 and Panic disorder F41.0 [facility] [id number] [place] [address] 16061- 3743 Aug, [facility] [id number] [place] [address] 40568- 2186 Aug, [facility] [id number] [place] [address] 00533- 5308 Aug, [facility] [id number] [place] [address] 63526- 7453 Aug, [facility] [id number] [place] [address] 70934- 7853 Jul, [facility] [address] 12489- 3298 Jul, Morbid obesity E66.01 ; Chronic pain G89.29 ; Anxiety F41.9 ; Social phobia F40.10 ; Panic disorder F41.0 ; Pelvic pain in male R10.2 ; Insomnia G47.00 and HTN (hypertension) I10 [facility] [id number] [place] [address] 11049- 3233 Jul, [facility] [address] 95190- 4794 Jul, [facility] [id number] [place] [address] 46191- 5537 Jun, Degenerative disc disease 722.6 [facility] [id number] [place] [address] 87121- 5220 Jun, Pain in joint, pelvic region and thigh 719.45 ; Morbid obesity 278.01 ; Essential hypertension, benign 401.1 and Constipation 564.00 [facility] [id number] [place] [address] 11887- 3971 May, [facility] [id number] [place] [address] 58453- 7045 May, [facility] [id number] [place] [address] 23055- 7452 May, [facility] [id number] [place] [address] 32785- 7988 May, [facility] [address] [address] May, [facility] [id number] [address] May, [facility] [id number] [place] [address]177- 1785 May, Essential hypertension, benign 401.1 ; Anxiety state, unspecified 300.00 ; Panic disorder without agoraphobia 300.01 ; Social phobia 300.23 ; Morbid obesity 278.01 ; Other chronic pain 338.29 and Insomnia 780.52 [facility] [id number] [place] [address] 35054- 3827 May, Essential hypertension 401.9 [facility] [id number] [place] [address] 87092- 0979 May, Pain in joint, pelvic region and thigh 719.45 [facility] [id number] [place] [address] 35586- 3087 May, Essential hypertension, benign 401.1 [facility] [id number] [place] [address] 18664- 7671 May, Panic disorder without agoraphobia 300.01 and Social phobia 300.23 [facility] [id number] [place] [address] 57756- 5911 May, [facility] [id number] [place] [address] 97411- 9820 May, [facility] [id number] [place] [address] 40465- 1432 Apr, Chronic pain 338.29 [facility] [id number] [place] [address] 97156- 5908 Apr, [facility] [id number] [place] [address] 10333- 6608 Apr, [facility] [id number] [place] [address] 78467- 3046 Apr, [facility] [id number] [address] Apr, [facility] [id number] [place] [address] 03194- 5857 Apr, [facility] [id number] [place] [address] 00267- 7929 Apr, [facility] [id number] [place] [address] 60850- 9398 Apr, [facility] [id number] [place] [address] 08050- 5460 Apr, Essential hypertension, benign 401.1 ; Morbid obesity 278.01 ; Anxiety state, unspecified 300.00 ; Panic disorder without agoraphobia 300.01 ; Social phobia 300.23 and Chronic pain 338.29 [facility] [id number] [place] [address] 68503- 7360 Mar, [facility] [id number] [place] [address] 53583- 7271 Mar, [facility] [id number] [place] [address] 86262- 4874 Mar, [facility] [id number] [place] [address] 76881- 4198 Mar, [facility] [id number] [place] [address] 79609- 7578 Mar, Social phobia 300.23 and Panic disorder without agoraphobia 300.01 [facility] [address] [address] 79[address] Mar, [facility] [id number] [place] [address] 66947- 6096 February, [facility] [id number] [place] [address] 08742- 5473 February, Major depression, recurrent 296.30 and No condition on [place] II V71.09 [facility] [address] [place] [address] February, [facility] [id number] [address] February, Panic disorder without agoraphobia 300.01 ; Social phobia 300.23 and Morbid obesity 278.01 [facility] [id number] [place] [address] Jan, [facility] [address] [facility] [id number] [address] 9070 Jan, [facility] [id number] [place] [address] 0987 Dec, [facility] [id number] [address] 97[address] Dec, [facility] [address] [address] 8595 Dec, [facility] [id number] [address] 3105 Dec, [facility] [id number] [address] 2989 Dec, [facility] [address], [place] [address] 4461 Dec, [facility] [address] [address] 6368 Dec, [facility] [id number] [address] 7497 Dec, [facility] [id number] [address] 0488 Dec, [facility] [id number] [address] 3792 Dec, [facility] [address] [address] 9536 Dec, [facility] [id number] [address] 6022 Dec, [facility] [address] [facility] [id number] [address] 1914 Dec, [facility] [address] [facility] [id number] [address] 3747 Dec, [address] [facility] [id number] [address] Dec, [facility] [address] [facility] [id number], [place] [address]- 8075 Dec, IMMUNIZATIONS No Known Immunizations SOCIAL HISTORY Never Assessed REASON FOR VISIT [facility] Danyelle Kevin PLAN OF CARE Activity Details Follow Up 2 Weeks Reason: VITAL SIGNS Height 73 in 2018-10-02 Weight 327.0 lbs 2018-10-02 Heart Rate 92 bpm 2018-10-02 Respiratory Rate 20 2018-10-02 BMI 43.14 kg/m2 2018-10-02 Blood pressure systolic 132 mmHg 2018-10-02 Blood pressure diastolic 82 mmHg 2018-10-02 MEDICATIONS Medication Instructions Dosage Frequency Start Date End Date Duration Status Spironolactone 25 MG Orally Once a day 1 tablet 24h 30 Active Lift Chair/Recliner use to assist with position changes- sitting to standing May, Active Accu-Chek FastClix Lancets - subcutaneously 3 times a day 1 lancet to check fsbs 8h Jun, Active Blood Glucose Test - subcutaneously 3 times a day as directed 8h Mar, Active Blood Glucose Monitor System w/Device as directed Active Pen Byron 31G X 8 MM as directed Jan, Active Abilify 2 MG Orally Once a day 1 tablet 24h Sep, 30 day(s) Active ReliOn Pen Byron 31G/8MM USE DIRECTED Active Potassium Chloride Kristen ER 20 meq Orally Once a day TAKE TWO -2 TABLETS BY MOUTH ONCE DAILY 24h 30 Active Pravastatin Sodium 10 mg Orally 1 and 3 TAKE ONE TABLET BY MOUTH ONCE DAILY 30 Active Lasix 80 MG Orally Once a day 2 tablets 24h Active Levemir FlexTouch 100 UNIT/ML Subcutaneous Once a day Inject 22 units 24h Active Lisinopril 20 MG Orally Once a day 1 tablet 24h Active Metoprolol Succinate ER 100 MG TAKE ONE TABLET BY MOUTH ONCE DAILY Active RESULTS No Results PROCEDURES Procedure Date Ordered Result Body Site [facility] VISIT ESTABLISHED PATIENT Oct 02, 2018 INSTRUCTIONS MEDICATIONS ADMINISTERED No Known Medications MEDICAL [...]
--- OUTSIDE RECORDS SUMMARY | 2018-11-30 17:21 | XMS REPORT ---
Author Author ROSE MARY BUCKNER [facility] Address [address] [place] [address] Care Team Providers Care Exhibition Organiser Name Role Phone ISA BUCKNERTA Unavailable PROBLEMS Type Condition ICD9-CM Code NVD79-DT Code Onset Dates Condition Status SNOMED Code Problem Primary insomnia F51.01 Active 1807267 Problem Constipation, unspecified constipation type K59.00 Active 68625174 Problem Mixed hyperlipidemia E78.2 Active 513801504 Problem Type 2 diabetes mellitus 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, unspecified whether [facility] insulin use E11.40 Active 39891775 Problem Controlled substance agreement terminated Z91.14 Active 028461698 Problem Major depressive disorder, recurrent, in full remission F33.42 Active 860654973 Problem Stasis dermatitis of both legs I87.2 Active 34695467 Problem BMI 50.0-59.9, adult Z68.43 Active 022643375 Problem Lymphedema I89.0 Active 207154569 Problem Chronic systolic congestive heart failure I50.22 Active 400987514 Problem Panic disorder F41.0 Active 077109232 Problem Chronic pain G89.29 Active 33349277 Problem Cardiomegaly I51.7 Active 9973283 Problem Abnormal liver function test R94.5 Active 144707631 Problem BPH (benign prostatic hyperplasia) N40.0 Active 931158945 Problem Dysthymic disorder F34.1 Active 05206352 Problem HTN (hypertension) I10 Active 81339814 Problem Mild episode of recurrent major depressive disorder F33.0 Active 549098976 Problem Degenerative disc disease at L5-S1 level M51.36 Active 33158883 Problem Type 2 diabetes mellitus with diabetic chronic kidney disease E11.22 Active 63746314 ALLERGIES No Information ENCOUNTERS Encounter Location Date Diagnosis [facility] [address] [facility] [id number] [address] Nov, [facility] [id number] [address] Sep, [facility] [address] [address] 6[address] Sep, [facility] [id number] [place] [address] 23259- 1368 Aug, [facility] [id number] [place] [address] 77856- 6346 Aug, Onychomycosis B35.1 and Type 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 mellitus 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, 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 [facility] [id number] [place] [address] 88034- 8575 Aug, [facility] [id number] [place] [address] 73869- 1699 Jul, Type 2 diabetes mellitus with diabetic chronic kidney disease E11.22 ; Mild episode of recurrent major depressive disorder F33.0 and BMI 40.0-44.9, adult Z68.41 [facility] [id number] [place] [address] 75196- 2566 Jul, [facility] [id number] [place] [address] 65889- 9607 Jul, Type 2 diabetes mellitus with diabetic chronic kidney disease E11.22 [facility] [address] [place] [address] 87702- 2770 Jul, [facility] [id number] [place] [address] 05357- 1757 Jul, Type 2 diabetes mellitus with diabetic chronic kidney disease E11.22 [facility] [address] [address] 6366 Jul, Chronic systolic congestive heart failure I50.22 and Mixed hyperlipidemia E78.2 [facility] [address] [address] 1050 Jun, [facility] [address] [place] [address] 89215- 3399 Jun, Type 2 diabetes mellitus with diabetic chronic kidney disease E11.22 [place] [id number] [place] [address] 64730- 9705 Jun, Onychomycosis B35.1 ; Self-care deficit for hygiene R46.0 and Nail hypertrophy L60.2 [place] [id number] [place] [address] 76601- 1311 Jun, Dental examination Z01.20 [place] [id number] [place] [address] 17137- 8799 Jun, Tooth infection K04.7 ; BMI 40.0-44.9, adult Z68.41 and Mouth pain K13.79 [place] [id number] [place] [address] 42920- 7808 Jun, Type 2 diabetes mellitus with diabetic chronic kidney disease E11.22 [place] [address] 64510- 7988 May, Degenerative disc disease at L5-S1 level M51.36 ; Chronic pain G89.29 and BMI 40.0-44.9, adult Z68.41 [place] [id number] [place] [address] 47788- 0972 May, [place] [id number] [place] [address] 12699- 4165 May, Type 2 diabetes mellitus with diabetic chronic kidney disease E11.22 [place] [id number] [place] [address] 58321- 2659 May, [place] [id number] [place] [address] 15359- 3185 May, Degenerative disc disease at L5-S1 level M51.36 [place] [id number] [place] [address] 49125- 8732 May, [place] [id number] [place] [address] 51477- 7890 May, [place] [address] [address]- 4886 May, [place] [id number] [place] [address] 27580- 6994 Apr, Type 2 diabetes mellitus with diabetic chronic kidney disease E11.22 ; Chronic pain G89.29 ; Major depressive disorder, recurrent, in full remission F33.42 ; HTN (hypertension) I10 ; Chronic systolic congestive heart failure I50.22 ; Mixed hyperlipidemia E78.2 and BMI 45.0-49.9, adult Z68.42 [place] [id number] [place] [address] 87628- 8209 18 Apr, 2018 Type 2 diabetes mellitus with diabetic chronic kidney disease E11.22 [place] [id number] [place] [address] 32587- 3822 17 Apr, 2018 Medicare annual wellness visit, [...] vaccine Z28.21 and Encounter for immunization Z23 [place] [address] [address]- 2199 Apr, [place] [id number] [place] [address] 63157- 8621 Mar, Type 2 diabetes mellitus with diabetic chronic kidney disease E11.22 [place] [id number] [place] [address] 53223- 3679 Mar, Chronic pain G89.29 [place] [id number] [place] [address] 54209- 7397 February, Chronic pain G89.29 ; Abnormal liver function test R94.5 and Degenerative disc disease at L5-S1 level M51.36 [place] [id number] [place] [address] 52955- 1307 Jan, [facility] [id number] [place] [address] 05231- 2927 Jan, [facility] [address] 93518- 5760 Jan, [place] [address] 48924- 5581 Jan, Abnormal liver function test R94.5 ; Dysthymic disorder F34.1 and Chronic pain G89.29 [place] [id number] [place] [address] 66892- 9653 Dec, [address] [address]50- 2042 Dec, HTN (hypertension) I10 ; BMI 45.0-49.9, adult Z68.42 ; Chronic pain G89.29 ; Primary insomnia F51.01 ; Mixed hyperlipidemia E78.2 ; Dysthymic disorder F34.1 ; Type 2 diabetes mellitus with diabetic chronic kidney disease E11.22 ; Stasis dermatitis of both legs I87.2 and Chronic systolic congestive heart failure I50.22 [place] [id number] [place] [address] 45890- 6922 Dec, Chronic pain G89.29 [facility] [id number] [place] [address] 36569 -3565 Dec, Lymphedema I89.0 and Chronic systolic congestive heart failure I50.22 [place] [id number] [place] [address] 09177- 6353 Dec, [facility] [id number] [place] [address] 16539- 2695 Nov, Type 2 diabetes mellitus with diabetic chronic kidney disease E11.22 [place] [address] [address]- 4828 12 Nov, 2017 Chronic pain G89.29 and Dysthymic disorder F34.1 [place] [id number] [place] [address] 17741- 4250 08 Nov, 2017 [place] [id number] [place] [address] 01308- 1242 Oct, HTN (hypertension) I10 ; Chronic pain G89.29 ; BMI 45.0-49.9 , adult Z68.42 ; Primary insomnia F51.01 ; Mixed hyperlipidemia E78.2 ; Dysthymic disorder F34.1 ; Type 2 diabetes mellitus with diabetic chronic kidney disease E11.22 ; Chronic congestive heart failure, unspecified congestive heart failure type I50.9 ; Acute non-recurrent maxillary sinusitis J01.00 and BMI 50.0-59.9, adult Z68.43 [place] [id number] [place] [address] 93191- 5400 Oct, HTN (hypertension) I10 and Dysthymic disorder F34.1 [place] [id number] [place] [address] 01358- 7306 Oct, [place] [id number] [place] [address] 67571- 3450 Oct, HTN (hypertension) I10 [place] [id number] [place] [address] 08141- 4814 Oct, Chronic pain G89.29 [place] [id number] [place] [address] 67363- 9667 Sep, [place] [id number] [place] [address] 42322- 0171 Sep, HTN (hypertension) I10 ; Chronic pain G89.29 ; BMI 45.0-49.9 , adult Z68.42 ; Primary insomnia F51.01 ; Mixed hyperlipidemia E78.2 ; Dysthymic disorder F34.1 and Type 2 diabetes mellitus with diabetic chronic kidney disease E11.22 [place] [address] [address]- 4965 18 Sep, 2017 Chronic pain G89.29 [place] [id number] [place] [address] 11358- 3051 Sep, Acute on chronic heart failure, unspecified heart failure type I50.9 [place] [id number] [place] [address] 16491- 5102 Sep, Acute on chronic heart failure, unspecified heart failure type I50.9 ; Type 2 diabetes mellitus with diabetic chronic kidney disease E11.22 and BMI 50.0-59.9, adult Z68.43 [place] [id number] [place] [address] 59528- 3369 Sep, Acute on chronic heart failure, unspecified heart failure type I50.9 ; HTN (hypertension) I10 and Type 2 diabetes mellitus with diabetic chronic kidney disease E11.22 [place] [id number] [place] [address] 27570- 8231 Aug, Acute on chronic heart failure, unspecified heart failure type I50.9 ; HTN (hypertension) I10 ; Type 2 diabetes mellitus with diabetic chronic kidney disease E11.22 ; Cellulitis of right lower extremity L03.115 and BMI 50.0-59.9, adult Z68.43 [facility] [address] [place] [address] [address] Aug, Acute upper respiratory infection, unspecified J06.9 ; Other viral agents as the cause of diseases classified elsewhere B97.89 ; Constipation, unspecified constipation type K59.00 ; BMI 50.0-59.9, adult Z68.43 and BMI 60.0-69.9, adult Z68.44 [place] [id number] [place] [address] 90433- 8812 Aug, Chronic pain G89.29 [place] [id number] [place] [address] 14189- 4749 Jul, Chronic pain G89.29 [place] [address] [address]- 5339 Jul, Chronic pain G89.29 [place] [id number] [place] [address] 37243- 8172 Jun, Chronic pain G89.29 [place] [id number] [place] [address] 67098- 4966 Jun, [place] [address] 80826- 8330 Jun, Chronic pain G89.29 [place] [id number] [place] [address] 92985- 3635 May, Chronic pain G89.29 and Type 2 diabetes mellitus with diabetic chronic kidney disease E11.22 [place] [id number] [place] [address] 30759- 7535 May, [place] [id number] [place] [address] 83653- 9475 May, Chronic pain G89.29 and Anxiety F41.9 [place] [id number] [place] [address] 72165- 1889 May, Type 2 diabetes mellitus with diabetic chronic kidney disease E11.22 ; Social phobia F40.10 ; Morbid obesity E66.01 ; Chronic pain G89.29 ; HTN (hypertension) I10 ; Degenerative disc disease at L5-S1 level M51.36 ; BPH (benign prostatic hyperplasia) N40.0 ; Pain in right knee M25.561 and 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 [place] [address] [place] [address] 49109- 8829 Apr, Anxiety F41.9 [place] [id number] [place] [address] 62286- 9458 Apr, [place] [id number] [place] [address] 08850- 8465 Mar, [place] [id number] [place] [address] 69871- 9475 Mar, Edema, unspecified type R60.9 and Anxiety F41.9 [place] [address] 04017- 4051 Mar, Social phobia F40.10 ; Mixed obsessional thoughts and acts F42.2 and Mild episode of recurrent major depressive disorder F33.0 [place] [address] 55679- 8376 Mar, Degenerative disc disease at L5-S1 level M51.36 [place] [address] 04724- 0436 Mar, [place] [address] 76827- 6986 Mar, [place] [address] 73388- 5645 Mar, [place] [address] 82982- 5571 February, Morbid obesity E66.01 ; Anxiety F41.9 ; Degenerative disc disease at L5-S1 level M51.36 ; BPH (benign prostatic hyperplasia) N40.0 ; Social phobia F40.10 ; HTN (hypertension) I10 ; Edema, unspecified type R60.9 and Screening cholesterol level Z13.220 [place] [id number] [place] [address] 24953- 9030 February, Social phobia, generalized F40.11 [place] [id number] [place] [address] 31707- 2620 February, Chronic pain G89.29 [place] [address] 74368- 2266 February, [place] [id number] [place] [address] 96890- 3690 Jan, Chronic pain G89.29 [place] [address] 09181- 1106 Jan, Panic disorder [episodic paroxysmal anxiety] without agoraphobia F41.0 [place] [address] 14912- 2905 13 Dec, 2016 Morbid obesity E66.01 ; Anxiety F41.9 ; Chronic pain G89.29 ; HTN (hypertension) I10 ; BPH (benign prostatic hyperplasia) N40.0 ; Generalized edema R60.1 and Cough R05 [facility] [address] 96082- 1116 14 Nov, 2016 Chronic pain G89.29 [place] [address] 41260- 2708 03 Nov, 2016 Social phobia, generalized F40.11 and Mild episode of recurrent major depressive disorder F33.0 [place] [address] 26799- 1009 Oct, Chronic pain G89.29 [facility] [id number] [place] [address] 46726- 9914 Oct, Social phobia, generalized F40.11 [facility] [id number] [place] [address] 68776- 8671 Sep, [facility] [id number] [place] [address] 96459- 5192 Sep, [facility] [id number] [place] [address] 43606- 3696 Sep, [facility] [id number] [place] [address] 64306- 7663 Sep, [facility] [address] 07606- 2386 Sep, [facility] [id number] [place] [address] 23062- 9233 Sep, Social phobia, generalized F40.11 and Mild episode of recurrent major depressive disorder F33.0 [place] [address] [address]- 3039 08 Sep, 2016 [facility] [id number] [place] [address] 78577- 3850 Aug, [facility] [id number] [place] [address] 09300- 0606 Aug, [facility] [id number] [place] [address] 65124- 6891 Aug, Bronchitis J40 [facility] [id number] [place] [address] 91022- 8320 15 Aug, 2016 [place] [id number] [place] [address] 12912- 1720 10 Aug, 2016 Osteoarthritis of knee, unspecified M17.9 [place] [id number] [place] [address] 33376- 4563 09 Aug, 2016 Morbid obesity E66.01 ; Chronic pain G89.29 ; Anxiety F41.9 ; Social phobia F40.10 ; HTN (hypertension) I10 ; Social phobia, generalized F40.11 ; Acute upper respiratory infection, unspecified J06.9 and Other viral agents as the cause of diseases classified elsewhere B97.89 [facility] [id number] [place] [address] 93192- 4076 Aug, Social phobia, generalized F40.11 and Dysthymic disorder F34.1 [facility] [address] [place] [address] 39969- 6514 Jul, [facility] [address] [place] [address] 96916- 4389 Jun, [facility] [id number] [place] [address] 05839- 9874 May, [facility] [address] [place] [address] 27715- 7595 May, [facility] [id number] [place] [address] 62970- 2523 May, [facility] [address] [address]- 7881 May, [facility] [address] [place] [address] 28070- 0374 May, [facility] [address] [place] [address] 20691- 3133 May, [facility] [id number] [place] [address] 95924- 7384 May, [facility] [address] [place] [address] 67017- 7893 Apr, [facility] [id number] [place] [address] 78362- 0372 Apr, Chondromalacia, right knee M94.261 [facility] [id number] [place] [address] 36424- 5553 Apr, Pain in unspecified hip M25.559 [facility] [address] [place] [address] 04477- 5211 Mar, Social phobia, unspecified F40.10 and Pain in unspecified hip M25.559 [facility] [address] [place] [address] 39422- 6136 February, [facility] [address] [place] [address] 47333- 1643 February, Social phobia F40.10 [facility] [address] [address]- 8320 February, Morbid obesity E66.01 ; Chronic pain G89.29 ; Social phobia F40.10 ; Pelvic pain in male R10.2 ; HTN (hypertension) I10 ; Degenerative disc disease at L5-S1 level M51.36 ; BPH (benign prostatic hyperplasia) N40.0 and Pain in right knee M25.561 [facility] [id number] [place] [address] 17899- 1131 14 Jan, 2016 [facility] [id number] [place] [address] 34206- 2460 13 Jan, 2016 [facility] [id number] [place] [address] 37638- 1412 12 Jan, 2016 [facility] [address] 41908- 5000 17 Dec, 2015 [facility] [address] 00708- 5751 Dec, [facility] [address] 88123- 3117 Dec, [facility] [address] 91563 -3066 29 Nov, 2015 Strep pharyngitis J02.0 ; Influenza A J10.1 and Cough R05 [facility] [address] [place] [address] 46889- 5200 Nov, [facility] [address] 73866- 3815 Nov, [facility] [id number] [place] [address] 87540- 0002 Oct, HTN (hypertension) I10 ; Morbid obesity E66.01 ; Anxiety F41.9 ; Social phobia F40.10 ; Panic disorder F41.0 ; Degenerative disc disease at L5-S1 level M51.36 and Hypercholesterolemia E78.0 [facility] [id number] [place] [address] 84077- 9411 Oct, Panic disorder [episodic paroxysmal anxiety] without agoraphobia F41.0 and Social phobia, generalized F40.11 [facility] [id number] [place] [address] 50299- 4884 Oct, [facility] [id number] [place] [address] 60183- 8810 Sep, [facility] [address] [address]- 4368 Sep, [facility] [address] [address]- 0968 Sep, [facility] [address] [address]- 6694 Sep, [facility] [address] [place] [address] 54218- 3840 Aug, [facility] [address] [place] [address] 52291- 1889 Aug, [facility] [address] [place] [address] 70128- 8252 Aug, [facility] [address] [place] [address] 26695- 9342 Aug, Social phobia F40.10 and Panic disorder F41.0 [facility] [address] [address]- 4473 Aug, [facility] [id number] [place] [address] 92142- 1618 Aug, [facility] [address] [address]- 4489 Aug, [facility] [address] [address]- 2591 Aug, [facility] [address] [address]- 0394 Jul, [facility] [address] [place] [address] 87896- 4705 Jul, Morbid obesity E66.01 ; Chronic pain G89.29 ; Anxiety F41.9 ; Social phobia F40.10 ; Panic disorder F41.0 ; Pelvic pain in male R10.2 ; Insomnia G47.00 and HTN (hypertension) I10 [facility] [address] [address]- 1659 Jul, [facility] [id number] [place] [phone] Jul, [facility] [id number] [place] [id number]- [phone] 16 Jun, 2015 Degenerative disc disease 722.6 [facility] [address] [address] Jun, Pain in joint, pelvic region and thigh 719.45 ; Morbid obesity 278.01 ; Essential hypertension, benign 401.1 and Constipation 564.00 [facility] [id number] [place] [id number]- [id number] May, [facility] [id number] [place] [address] [id number]- [phone] May, [facility] [id number] [place] [id number]- [id number] May, [facility] [id number] [place] [address] [phone]- [phone] May, [facility] [id number] [place] [id number]- [phone] May, [facility] [id number] [place] [address] [id number]- [phone] May, [facility] [facility] [id number] [place] [address] 36866- 7056 May, Essential hypertension, benign 401.1 ; Anxiety state, unspecified 300.00 ; Panic disorder without agoraphobia 300.01 ; Social phobia 300.23 ; Morbid obesity 278.01 ; Other chronic pain 338.29 and Insomnia 780.52 [facility] [id number] [place] [address] 97523- 6057 May, Essential hypertension 401.9 [facility] [id number] [place] [address] 47837- 9889 May, Pain in joint, pelvic region and thigh 719.45 [facility] [id number] [address] May, Essential hypertension, benign 401.1 [facility] [id number] [address] May, Panic disorder without agoraphobia 300.01 and Social phobia 300.23 [facility] [id number] [place] [address] 35770- 8548 May, [facility] [id number] [place] [address] 44740- 6587 May, [facility] [id number] [place] [address] 67297- 2755 Apr, Chronic pain 338.29 [facility] [id number] [place] [address] 68810- 3732 Apr, [facility] [id number] [place] [address] 83924- 1632 Apr, [facility] [id number] [place] [address] 93159- 4821 Apr, [facility] [id number] [place] [address] 39710- 4163 Apr, [facility] [address] [address] 2450 Apr, [facility] [id number] [place] [address] 81874- 1758 Apr, [facility] [id number] [address] 5574 Apr, [facility] [id number] [place] [address] 70523- 2434 Apr, Essential hypertension, benign 401.1 ; Morbid obesity 278.01 ; Anxiety state, unspecified 300.00 ; Panic disorder without agoraphobia 300.01 ; Social phobia 300.23 and Chronic pain 338.29 [facility] [address] [address]- 1143 Mar, [facility] [id number] [place] [address] 95263- 7775 Mar, [facility] [id number] [place] [address] 30935- 1216 Mar, [facility] [id number] [place] [address] 92192- 7246 Mar, [facility] [id number] [place] [address] 08703- 8138 Mar, Social phobia 300.23 and Panic disorder without agoraphobia 300.01 [facility] [id number] [place] [address] 02760- 6187 Mar, [facility] [id number] [place] [address] 02433- 1454 February, [facility] [id number] [place] [address] 03889- 2230 February, Major depression, recurrent 296.30 and No condition on [employer] [place] II V71.09 [facility] [id number] [place] [address] 69437- 3883 February, [facility] [id number] [place] [address] 40259- 3127 February, Panic disorder without agoraphobia 300.01 ; Social phobia 300.23 and Morbid obesity 278.01 [facility] [id number] [address] 6074 Jan, [facility] [id number] [place] [address] 20337- 3454 Jan, [facility] [id number] [place] [address] 51495- 0503 Dec, [facility] [id number] [place] [address] 32417- 1051 Dec, [facility] [address] [facility] [id number] [address] 9854 Dec, [facility] [address] [facility] [id number] [address] 5513 Dec, [facility] [id number] [address]- 0681 Dec, [facility] [address] [facility] [id number] [address] Dec, [facility] [id number] [address]- 9717 Dec, [facility] [address] [address]- 1446 Dec, [facility] [address] [address]- 0816 Dec, [facility] [address] [address]- 2549 Dec, [facility] [address] [address]- 3444 Dec, [facility] [address] [address]- 3348 Dec, [facility] [id number] [address]- 8266 Dec, [facility] [id number] [address]- 6452 Dec, [facility] [id number] [address]- 4904 Dec, [facility] [address] [address]- 0747 Dec, IMMUNIZATIONS No Known Immunizations SOCIAL HISTORY Never Assessed REASON FOR VISIT Routine nurse call PLAN OF CARE VITAL SIGNS MEDICATIONS [...]
--- OUTSIDE RECORDS SUMMARY | 2018-11-30 17:22 | XMS REPORT ---
Author Author ROSE MARY BUCKNER [facility] Address [address] [place] [address] Care Team Providers Care Ingredient Mixer Name Role Phone ISA BUCKNERTA Unavailable PROBLEMS Type Condition ICD9-CM Code OAC06-YN Code Onset Dates Condition Status SNOMED Code Problem Primary insomnia F51.01 Active 3275814 Problem Constipation, unspecified constipation type K59.00 Active 60018346 Problem Mixed hyperlipidemia E78.2 Active 947277287 Problem Type 2 diabetes mellitus 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, unspecified whether correction insulin use E11.40 Active 12205334 Problem Controlled substance agreement terminated Z91.14 Active 789822463 Problem Major depressive disorder, recurrent, in full remission F33.42 Active 674585280 Problem Stasis dermatitis of both legs I87.2 Active 28843926 Problem BMI 50.0-59.9, adult Z68.43 Active 359767479 Problem Lymphedema I89.0 Active 447792175 Problem Chronic systolic congestive heart failure I50.22 Active 770310702 Problem Panic disorder F41.0 Active 049530566 Problem Chronic pain G89.29 Active 84161853 Problem Cardiomegaly I51.7 Active 8845401 Problem Abnormal liver function test R94.5 Active 478169851 Problem BPH (benign prostatic hyperplasia) N40.0 Active 674545622 Problem Dysthymic disorder F34.1 Active 42637399 Problem HTN (hypertension) I10 Active 19321050 Problem Mild episode of recurrent major depressive disorder F33.0 Active 055719019 Problem Degenerative disc disease at L5-S1 level M51.36 Active 31662065 Problem Type 2 diabetes mellitus with diabetic chronic kidney disease E11.22 Active 86458862 ALLERGIES No Information ENCOUNTERS Encounter Location Date Diagnosis [facility] [address] [facility] [id number] [address] Nov, [facility] [id number] [address] Sep, [facility] [id number] [place] [address] 64338- 4042 Aug, [facility] [id number] [place] [address] 85742- 9737 Aug, Onychomycosis B35.1 and Type 2 diabetes mellitus 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, unspecified whether jinriksha driver insulin use E11.40 [facility] [id number] [place] [address] 28482- 2792 Aug, [facility] [id number] [place] [address] 84581- 0958 Jul, Type 2 diabetes mellitus with diabetic chronic kidney disease E11.22 ; Mild episode of recurrent major depressive disorder F33.0 and BMI 40.0-44.9, adult Z68.41 [place] [id number] [place] [address] 30028- 0228 Jul, [facility] [id number] [place] [address] 76866- 2324 Jul, Type 2 diabetes mellitus with diabetic chronic kidney disease E11.22 [facility] [id number] [place] [address] 67252- 8815 Jul, [facility] [id number] [place] [address] 81336- 6422 Jul, Type 2 diabetes mellitus with diabetic chronic kidney disease E11.22 [facility] [id number] [place] [address] 25369- 1300 Jul, Chronic systolic congestive heart failure I50.22 and Mixed hyperlipidemia E78.2 [facility] [id number] [place] [address] 24314- 0585 Jun, [facility] [id number] [place] [address] 91486- 4532 Jun, Type 2 diabetes mellitus with diabetic chronic kidney disease E11.22 [facility] [id number] [place] [address] 07859- 2629 Jun, Onychomycosis B35.1 ; Self-care deficit for hygiene R46.0 and Nail hypertrophy L60.2 [facility] [id number] [place] [address] 15684- 6503 Jun, Dental examination Z01.20 [facility] [id number] [place] [address] 03544- 2225 Jun, Tooth infection K04.7 ; BMI 40.0-44.9, adult Z68.41 and Mouth pain K13.79 [place] [id number] [place] [address] 61693- 7403 Jun, Type 2 diabetes mellitus with diabetic chronic kidney disease E11.22 [facility] [facility] [id number] [place] [address] 10812- 4984 May, Degenerative disc disease at L5-S1 level M51.36 ; Chronic pain G89.29 and BMI 40.0-44.9, adult Z68.41 [place] [id number] [place] [address] 18248- 1520 May, [facility] [id number] [place] [address] 46329- 4211 May, Type 2 diabetes mellitus with diabetic chronic kidney disease E11.22 [facility] [id number] [place] [address] 77544- 2086 May, [facility] [id number] [place] [address] 78033- 1012 May, Degenerative disc disease at L5-S1 level M51.36 [place] [id number] [place] [address] 42343- 7669 May, [place] [id number] [place] [address] 40884- 1539 May, [facility] [facility] [id number] [place] [address] 73508- 9339 May, [facility] [address], [place] [address] 8874 Apr, Type 2 diabetes mellitus with diabetic chronic kidney disease E11.22 ; Chronic pain G89.29 ; Major depressive disorder, recurrent, in full remission F33.42 ; HTN (hypertension) I10 ; Chronic systolic congestive heart failure I50.22 ; Mixed hyperlipidemia E78.2 and BMI 45.0-49.9, adult Z68.42 [address] [id number] [place] [address] 18335- 2698 Apr, Type 2 diabetes mellitus with diabetic chronic kidney disease E11.22 [address] [id number] [place] [address] 94678- 1871 17 Apr, 2018 Medicare annual wellness visit, [...] vaccine Z28.21 and Encounter for immunization Z23 [address] [place] [address] 45639- 5469 Apr, [facility] [facility] [id number] [place] [address] 43061- 9187 Mar, Type 2 diabetes mellitus with diabetic chronic kidney disease E11.22 [facility] [id number] [place] [address] 64794- 7742 Mar, Chronic pain G89.29 [place] [id number] [place] [address] 86780- 8207 February, Chronic pain G89.29 ; Abnormal liver function test R94.5 and Degenerative disc disease at L5-S1 level M51.36 [facility] [id number] [place] [address] 69086- 1060 Jan, [facility] [id number] [place] [address] 16903- 0173 Jan, [facility] [id number] [place] [address] 73874- 0675 Jan, [facility] [address] 98303- 4699 Jan, Abnormal liver function test R94.5 ; Dysthymic disorder F34.1 and Chronic pain G89.29 [facility] [id number] [place] [address] 62874- 4873 Dec, [facility] [id number] [place] [address] 52270- 5135 Dec, HTN (hypertension) I10 ; BMI 45.0-49.9, adult Z68.42 ; Chronic pain G89.29 ; Primary insomnia F51.01 ; Mixed hyperlipidemia E78.2 ; Dysthymic disorder F34.1 ; Type 2 diabetes mellitus with diabetic chronic kidney disease E11.22 ; Stasis dermatitis of both legs I87.2 and Chronic systolic congestive heart failure I50.22 [facility] [id number] [place] [address] 26211- 6398 Dec, Chronic pain G89.29 [facility] [id number] [place] [address] 28578 -2599 Dec, Lymphedema I89.0 and Chronic systolic congestive heart failure I50.22 [facility] [id number] [place] [address] 62632- 2482 Dec, [facility] [id number] [place] [address] 78428- 6477 Nov, Type 2 diabetes mellitus with diabetic chronic kidney disease E11.22 [facility] [id number] [place] [address] 15286- 7204 Nov, Chronic pain G89.29 and Dysthymic disorder F34.1 [place] [address], [place] [address] 1342 08 Nov, 2017 [place] [id number] [place] [address] 92829- 4473 Oct, HTN (hypertension) I10 ; Chronic pain G89.29 ; BMI 45.0-49.9 , adult Z68.42 ; Primary insomnia F51.01 ; Mixed hyperlipidemia E78.2 ; Dysthymic disorder F34.1 ; Type 2 diabetes mellitus with diabetic chronic kidney disease E11.22 ; Chronic congestive heart failure, unspecified congestive heart failure type I50.9 ; Acute non-recurrent maxillary sinusitis J01.00 and BMI 50.0-59.9, adult Z68.43 [place] [address], [place] [address]- 7288 17 Oct, 2017 HTN (hypertension) I10 and Dysthymic disorder F34.1 [place] [id number] [place] [address] 94955- 1316 Oct, [place] [id number] [place] [address] 98011- 7312 Oct, HTN (hypertension) I10 [place] [id number] [place] [address] 73397- 3727 Oct, Chronic pain G89.29 [place] [address], [place] [address]- 9076 Sep, [place] [id number] [place] [address] 42145- 2179 Sep, HTN (hypertension) I10 ; Chronic pain G89.29 ; BMI 45.0-49.9 , adult Z68.42 ; Primary insomnia F51.01 ; Mixed hyperlipidemia E78.2 ; Dysthymic disorder F34.1 and Type 2 diabetes mellitus with diabetic chronic kidney disease E11.22 [place] [id number] [place] [address] 13226- 7852 18 Sep, 2017 Chronic pain G89.29 [facility] [address], [place] [address]- 2516 Sep, Acute on chronic heart failure, unspecified heart failure type I50.9 [facility] [address], [place] [address]- 7474 Sep, Acute on chronic heart failure, unspecified heart failure type I50.9 ; Type 2 diabetes mellitus with diabetic chronic kidney disease E11.22 and BMI 50.0-59.9, adult Z68.43 [facility] [address] [place] [address] 05894- 5237 Sep, Acute on chronic heart failure, unspecified heart failure type I50.9 ; HTN (hypertension) I10 and Type 2 diabetes mellitus with diabetic chronic kidney disease E11.22 [place] [id number] [place] [address] 04231- 4189 Aug, Acute on chronic heart failure, unspecified heart failure type I50.9 ; HTN (hypertension) I10 ; Type 2 diabetes mellitus with diabetic chronic kidney disease E11.22 ; Cellulitis of right lower extremity L03.115 and BMI 50.0-59.9, adult Z68.43 [facility] [address], [place] [address] Aug, Acute upper respiratory infection, unspecified J06.9 ; Other viral agents as the cause of diseases classified elsewhere B97.89 ; Constipation, unspecified constipation type K59.00 ; BMI 50.0-59.9, adult Z68.43 and BMI 60.0-69.9, adult Z68.44 [facility] [id number], [place] [address]- 5146 Aug, Chronic pain G89.29 [place] [id number] [place] [address] 88461- 2880 Jul, Chronic pain G89.29 [facility] [address], [place] [address]- 3765 Jul, Chronic pain G89.29 [place] [id number] [place] [address] 86164- 7670 27 Jun, 2017 Chronic pain G89.29 [place] [id number] [place] [address] 04449- 4585 18 Jun, 2017 [place] [id number] [place] [address] 73324- 4319 06 Jun, 2017 Chronic pain G89.29 [place] [id number] [place] [address] 02246- 7174 May, Chronic pain G89.29 and 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.22 [place] [address] 81746- 9980 May, [place] [id number] [place] [address] 18079- 8692 May, Chronic pain G89.29 and Anxiety F41.9 [place] [id number] [place] [address] 57028- 4443 May, Type 2 diabetes mellitus with diabetic chronic kidney disease E11.22 ; Social phobia F40.10 ; Morbid obesity E66.01 ; Chronic pain G89.29 ; HTN (hypertension) I10 ; Degenerative disc disease at L5-S1 level M51.36 ; BPH (benign prostatic hyperplasia) N40.0 ; Pain in right knee M25.561 and 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 [place] [id number] [place] [address] 66921- 5214 Apr, Anxiety F41.9 [place] [id number] [place] [address] 81944- 9787 Apr, [place] [id number] [place] [address] 27071- 2783 Mar, [facility] [id number] [place] [address] 22303- 1672 Mar, Edema, unspecified type R60.9 and Anxiety F41.9 [place] [id number] [place] [address] 20190- 1961 Mar, Social phobia F40.10 ; Mixed obsessional thoughts and acts F42.2 and Mild episode of recurrent major depressive disorder F33.0 [place] [id number] [place] [address] 37515- 8418 Mar, Degenerative disc disease at L5-S1 level M51.36 [place] [id number] [place] [address] 81347- 8992 Mar, [place] [id number] [place] [address] 67027- 0918 Mar, [place] [id number] [place] [address] 62059- 1807 Mar, [place] [id number] [place] [address] 55453- 9759 February, Morbid obesity E66.01 ; Anxiety F41.9 ; Degenerative disc disease at L5-S1 level M51.36 ; BPH (benign prostatic hyperplasia) N40.0 ; Social phobia F40.10 ; HTN (hypertension) I10 ; Edema, unspecified type R60.9 and Screening cholesterol level Z13.220 [place] [id number] [place] [address] 16483- 3268 February, Social phobia, generalized F40.11 [place] [id number] [place] [address] 46045- 6469 February, Chronic pain G89.29 [place] [id number] [place] [address] 53063- 2870 February, [place] [id number] [place] [address] 84949- 4506 Jan, Chronic pain G89.29 [place] [id number] [place] [address] 40386- 4818 Jan, Panic disorder [episodic paroxysmal anxiety] without agoraphobia F41.0 [facility] [id number] [place] [address] 30703- 9087 13 Dec, 2016 Morbid obesity E66.01 ; Anxiety F41.9 ; Chronic pain G89.29 ; HTN (hypertension) I10 ; BPH (benign prostatic hyperplasia) N40.0 ; Generalized edema R60.1 and Cough R05 [facility] [id number] [place] [address] 34365- 8466 14 Nov, 2016 Chronic pain G89.29 [facility] [id number] [place] [address] 04480 2547 03 Nov, 2016 Social phobia, generalized F40.11 and Mild episode of recurrent major depressive disorder F33.0 [facility] [id number] [place] [address] 61860- 9493 Oct, Chronic pain G89.29 [facility] [id number] [place] [address] 34905- 6831 Oct, Social phobia, generalized F40.11 [facility] [id number] [place] [address] 15405- 4725 Sep, [facility] [id number] [place] [address] 24539- 2541 Sep, [facility] [id number] [place] [address] 80138- 7320 Sep, [facility] [id number] [place] [address] 78955- 2546 Sep, [facility] [id number] [place] [address] 14545 2549 Sep, [facility] [id number] [place] [address] 61275- 2540 Sep, Social phobia, generalized F40.11 and Mild episode of recurrent major depressive disorder F33.0 [facility] [id number] [place] [address] 45000- 5576 Sep, [facility] [address], [place] [address]- 4830 29 Aug, 2016 [facility] [id number] [place] [address] 48907- 7496 Aug, [facility] [id number] [place] [address] 80070- 1130 17 Aug, 2016 Bronchitis J40 [facility] [address] 81017- 4157 15 Aug, 2016 [facility] [id number] [place] [address] 91623- 2867 10 Aug, 2016 Osteoarthritis of knee, unspecified M17.9 [facility] [id number] [place] [address] 37054- 7691 09 Aug, 2016 Morbid obesity E66.01 ; Chronic pain G89.29 ; Anxiety F41.9 ; Social phobia F40.10 ; HTN (hypertension) I10 ; Social phobia, generalized F40.11 ; Acute upper respiratory infection, unspecified J06.9 and Other viral agents as the cause of diseases classified elsewhere B97.89 [facility] [id number] [place] [address] 00318- 2975 08 Aug, 2016 Social phobia, generalized F40.11 and Dysthymic disorder F34.1 [facility] [id number] [place] [address] 47094- 2830 Jul, [facility] [id number] [place] [address] 52195- 9823 Jun, [facility] [id number] [place] [address] 49494- 6507 May, [facility] [id number] [place] [address] 38986- 4214 May, [facility] [id number] [place] [address] 50596- 1699 May, [facility] [id number] [place] [address] 60633- 1220 May, [facility] [id number] [place] [address] 17180- 0152 May, [facility] [id number] [place] [address] 46208- 2950 May, [facility] [id number] [place] [address] 87371- 8689 May, [facility] [id number] [place] [address] 41909- 7932 Apr, [facility] [id number] [place] [address] 01797- 4991 Apr, Chondromalacia, right knee M94.261 [facility] [id number] [place] [address] 43004- 1119 Apr, Pain in unspecified hip M25.559 [place] [id number] [place] [address] 53587- 1309 Mar, Social phobia, unspecified F40.10 and Pain in unspecified hip M25.559 [place] [id number] [place] [address] 24325- 2031 February, [facility] [id number] [place] [address] 05832- 5669 February, Social phobia F40.10 [facility] [id number] [place] [address] 60575- 0647 February, Morbid obesity E66.01 ; Chronic pain G89.29 ; Social phobia F40.10 ; Pelvic pain in male R10.2 ; HTN (hypertension) I10 ; Degenerative disc disease at L5-S1 level M51.36 ; BPH (benign prostatic hyperplasia) N40.0 and Pain in right knee M25.561 [facility] [id number] [place] [address] 32250- 7161 Jan, [facility] [id number] [place] [address] 10359- 7504 13 Jan, 2016 [facility] [id number] [place] [address] 47543- 1009 Jan, [facility] [address] 95826- 0101 Dec, [facility] [address] 36177- 4096 Dec, [facility] [address] 25015- 2390 Dec, [facility] [address] 34734 -0678 Nov, Strep pharyngitis J02.0 ; Influenza A J10.1 and Cough R05 [address] 05626- 9153 Nov, [facility] [address] 06250- 3785 Nov, [facility] [id number] [place] [address] 90277- 1186 Oct, HTN (hypertension) I10 ; Morbid obesity E66.01 ; Anxiety F41.9 ; Social phobia F40.10 ; Panic disorder F41.0 ; Degenerative disc disease at L5-S1 level M51.36 and Hypercholesterolemia E78.0 [place] [id number] [place] [address] 88504- 5076 Oct, Panic disorder [episodic paroxysmal anxiety] without agoraphobia F41.0 and Social phobia, generalized F40.[address] 14479- 9472 Oct, [facility] [id number] [place] [address] 51569- 6805 Sep, [place] [address] 09840- 9200 Sep, [facility] [address], [place] [address]- 0432 Sep, [facility] [id number] [place] [address] 99602- 3718 Sep, [facility] [address], [place] [address]- 8409 Aug, [facility] [id number] [place] [address] 83122- 3301 Aug, [facility] [id number] [place] [address] 45201- 3556 Aug, [facility] [id number] [place] [address] 82359- 0616 Aug, Social phobia F40.10 and Panic disorder F41.0 [facility] [id number] [place] [address] [id number]- 4987 Aug, [facility] [id number] [place] [address] 83934- 8260 Aug, [facility] [id number] [place] [address] [id number]- 2576 Aug, [facility] [id number] [address] Aug, [facility] [id number] [place] [address] 39753- 8121 Jul, [facility] [id number] [address] Jul, Morbid obesity E66.01 ; Chronic pain G89.29 ; Anxiety F41.9 ; Social phobia F40.10 ; Panic disorder F41.0 ; Pelvic pain in male R10.2 ; Insomnia G47.00 and HTN (hypertension) I10 [facility] [id number] [place] [address] Jul, [facility] [id number] [address] Jul, [facility] [id number] [place] [address] [id number]- 3818 16 Jun, 2015 Degenerative disc disease 722.6 [facility] [id number] [place] [address] 87704- 3056 Jun, Pain in joint, pelvic region and thigh 719.45 ; Morbid obesity 278.01 ; Essential hypertension, benign 401.1 and Constipation 564.00 [facility] [id number] [place] [address] 05637- 2947 May, [facility] [id number] [place] [address] 16693- 5855 May, [facility] [id number] [place] [address] 51956- 7498 May, [facility] [id number] [place] [address] [id number]- 8744 May, [facility] [id number] [place] [address] 43542- 1654 May, [facility] [id number] [place] [address] 71566- 0087 May, [facility] [id number] [place] [address] 85753- 0167 May, Essential hypertension, benign 401.1 ; Anxiety state, unspecified 300.00 ; Panic disorder without agoraphobia 300.01 ; Social phobia 300.23 ; Morbid obesity 278.01 ; Other chronic pain 338.29 and Insomnia 780.52 [facility] [id number] [place] [address] 94332- 6614 May, Essential hypertension 401.9 [facility] [id number] [place] [address] 24098- 4304 May, Pain in joint, pelvic region and thigh 719.45 [facility] [id number] [place] [address] 64318- 7278 May, Essential hypertension, benign 401.1 [facility] [id number] [address] May, Panic disorder without agoraphobia 300.01 and Social phobia 300.23 [facility] [address] [address] 9258 May, [facility] [id number] [place] [address] 93861- 5687 May, [facility] [id number] [place] [address] 14131- 6242 Apr, Chronic pain 338.29 [facility] [id number] [place] [address] 91625- 5827 Apr, [facility] [id number] [place] [address] 18547- 2740 Apr, [facility] [id number] [place] [address] 33989- 1936 Apr, [facility] [id number] [place] [address] 97551- 9831 Apr, [facility] [id number] [address] 7557 Apr, [facility] [id number] [place] [address]- 0081 Apr, [facility] [id number] [place] [address] 8398 Apr, [facility] [id number] [place] [address] 4596 Apr, Essential hypertension, benign 401.1 ; Morbid obesity 278.01 ; Anxiety state, unspecified 300.00 ; Panic disorder without agoraphobia 300.01 ; Social phobia 300.23 and Chronic pain 338.29 [facility] [address] [place] [address]- 9265 Mar, [facility] [id number] [place] [address]- 2233 Mar, [facility] [id number] [place] [address] 35924- 4086 Mar, [facility] [id number] [place] [address] 35462- 9192 Mar, [facility] [id number] [place] [address] 27488- 0060 Mar, Social phobia 300.23 and Panic disorder without agoraphobia 300.01 [facility] [id number] [place] [address] 85526- 4728 Mar, [facility] [id number] [place] [address] 62866- 0413 February, [facility] [id number] [place] [address] 18527- 2627 February, Major depression, recurrent 296.30 and No condition on [place] II V71.09 [facility] [id number] [place] [address] 50894- 8957 February, [facility] [id number] [place] [address] 81339- 4477 February, Panic disorder without agoraphobia 300.01 ; Social phobia 300.23 and Morbid obesity 278.01 [facility] [address] [place] [address]- 9576 Jan, [facility] [address] [place] [address]- 6772 Jan, [facility] [id number] [place] [address] 96120- 0024 Dec, [facility] [address] [place] [address]- 9357 Dec, [facility] [id number] [place] [address] 15961- 9645 Dec, [facility] [id number] [address]- 8563 Dec, [facility] [address] [place] [address]- 2510 Dec, [facility] [id number] [address]- 6792 Dec, [facility] [address] [place] [address]- 0730 Dec, [facility] [id number] [address]- 5109 Dec, [facility] [address] [place] [address]- 0344 Dec, [facility] [address] [place] [address]- 5384 Dec, [facility] [address] [place] [address]- 0155 Dec, [facility] [address] [place] [address]- 8991 Dec, [facility] [address] [place] [address]- 8515 Dec, [facility] [id number] [address]- 2186 Dec, [facility] [id number] [address]- 2086 Dec, [facility] [id number] [address]- 5240 Dec, IMMUNIZATIONS No Known Immunizations SOCIAL HISTORY Never Assessed REASON FOR VISIT Left message PLAN OF CARE VITAL SIGNS MEDICATIONS Unknown [...]
--- OUTSIDE RECORDS SUMMARY | 2018-11-30 17:22 | XMS REPORT ---
Author Author MAKSIM GAINES Organization [facility] Address [address] [place] [address] Care Team Providers Care Rehabilitation Technician Name Role Phone MAKSIM GAINES Unavailable PROBLEMS Type Condition ICD9-CM Code [id number] Code Onset Dates Condition Status SNOMED Code Problem Primary insomnia F51.01 Active 9415337 Problem Constipation, unspecified constipation type K59.00 Active 90640732 Problem Mixed hyperlipidemia E78.2 Active 352155988 Problem Type 2 diabetes mellitus 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, unspecified whether correction insulin use E11.40 Active 61705938 Problem Controlled substance agreement terminated Z91.14 Active 444311228 Problem Major depressive disorder, recurrent, in full remission F33.42 Active 398527211 Problem Stasis dermatitis of both legs I87.2 Active 82029313 Problem BMI 50.0-59.9, adult Z68.43 Active 020959442 Problem Lymphedema I89.0 Active 260764801 Problem Chronic systolic congestive heart failure I50.22 Active 469224181 Problem Panic disorder F41.0 Active 404490475 Problem Chronic pain G89.29 Active 85097934 Problem Cardiomegaly I51.7 Active 3269183 Problem Abnormal liver function test R94.5 Active 769442639 Problem BPH (benign prostatic hyperplasia) N40.0 Active 646377325 Problem Dysthymic disorder F34.1 Active 83665395 Problem HTN (hypertension) I10 Active 15742120 Problem Mild episode of recurrent major depressive disorder F33.0 Active 560420781 Problem Degenerative disc disease at L5-S1 level M51.36 Active 77083010 Problem Type 2 diabetes mellitus with diabetic chronic kidney disease E11.22 Active 58585485 ALLERGIES No Information ENCOUNTERS Encounter Location Date Diagnosis [facility] [address] [facility] [id number] [address] Nov, [facility] [id number] [address] Aug, [facility] [address] [address] 17[address] Aug, [facility] [id number] [place] [address] 49539- 8025 Aug, [facility] [id number] [place] [address] 73894- 4484 Aug, Onychomycosis B35.1 and Type 2 diabetes mellitus 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, 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 [facility] [address] [place] [address] 56708- 0847 Aug, [facility] [id number] [place] [address] 90003- 6469 Jul, Type 2 diabetes mellitus with diabetic chronic kidney disease E11.22 ; Mild episode of recurrent major depressive disorder F33.0 and BMI 40.0-44.9, adult Z68.41 [facility] [id number] [place] [address] 01444- 4839 Jul, [facility] [id number] [place] [address] 91973- 9120 Jul, Type 2 diabetes mellitus with diabetic chronic kidney disease E11.22 [facility] [id number] [place] [address] 19318- 9993 Jul, [facility] [id number] [place] [address] 22880- 6723 Jul, Type 2 diabetes mellitus with diabetic chronic kidney disease E11.22 [facility] [address] [address] 9281 Jul, Chronic systolic congestive heart failure I50.22 and Mixed hyperlipidemia E78.2 [facility] [address] [address] 8[address] Jun, [facility] [id number] [place] [address] 63458- 7240 Jun, Type 2 diabetes mellitus with diabetic chronic kidney disease E11.22 [facility] [id number] [place] [address] 25020- 9827 Jun, Onychomycosis B35.1 ; Self-care deficit for hygiene R46.0 and Nail hypertrophy L60.2 [facility] [id number] [place] [address] 95170- 6966 Jun, Dental examination Z01.20 [facility] [address] 04182- 5789 Jun, Tooth infection K04.7 ; BMI 40.0-44.9, adult Z68.41 and Mouth pain K13.79 [place] [address] 39009- 8364 Jun, Type 2 diabetes mellitus with diabetic chronic kidney disease E11.22 [facility] [address] 65960- 6448 May, Degenerative disc disease at L5-S1 level M51.36 ; Chronic pain G89.29 and BMI 40.0-44.9, adult Z68.41 [place] [address] 35173- 6401 May, [facility] [id number] [place] [address] 92960- 9188 May, Type 2 diabetes mellitus with diabetic chronic kidney disease E11.22 [facility] [id number] [place] [address] 09138- 0205 May, [facility] [id number] [place] [address] 67824- 4835 May, Degenerative disc disease at L5-S1 level M51.36 [facility] [id number] [place] [address] 16727- 0074 May, [facility] [id number] [place] [address] 67401- 9984 May, [facility] [address], [place] [address] 4265 May, [facility] [id number] [place] [address] 75746- 1054 Apr, Type 2 diabetes mellitus with diabetic chronic kidney disease E11.22 ; Chronic pain G89.29 ; Major depressive disorder, recurrent, in full remission F33.42 ; HTN (hypertension) I10 ; Chronic systolic congestive heart failure I50.22 ; Mixed hyperlipidemia E78.2 and BMI 45.0-49.9, adult Z68.42 [facility] [id number] [place] [address] 90847- 9235 Apr, Type 2 diabetes mellitus with diabetic chronic kidney disease E11.22 [facility] [id number] [place] [address] 45913- 3828 17 Apr, 2018 Medicare annual wellness visit, [...] vaccine Z28.21 and Encounter for immunization Z23 [facility] [address] [address] 8179 Apr, [facility] [id number] [place] [address] 48187- 7207 Mar, 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 kidney disease E11.22 [facility] [id number] [place] [address] 22713- 8826 Mar, Chronic pain G89.29 [facility] [id number] [place] [address] 81107- 8075 February, Chronic pain G89.29 ; Abnormal liver function test R94.5 and Degenerative disc disease at L5-S1 level M51.36 [facility] [id number] [place] [address] 22680- 2131 Jan, [facility] [id number] [place] [address] 88991- 7053 Jan, [facility] [address] 17186- 8194 Jan, [facility] [id number] [place] [address] 96351- 6663 Jan, Abnormal liver function test R94.5 ; Dysthymic disorder F34.1 and Chronic pain G89.29 [facility] [place] [id number] [place] [address] 30037- 9116 Dec, [facility] [id number] [place] [address] 10521- 0888 Dec, HTN (hypertension) I10 ; BMI 45.0-49.9, adult Z68.42 ; Chronic pain G89.29 ; Primary insomnia F51.01 ; Mixed hyperlipidemia E78.2 ; Dysthymic disorder F34.1 ; Type 2 diabetes mellitus with diabetic chronic kidney disease E11.22 ; Stasis dermatitis of both legs I87.2 and Chronic systolic congestive heart failure I50.22 [facility] [id number] [place] [address] 70496- 9031 Dec, Chronic pain G89.29 [facility] [id number] [place] [address] 51296 -4871 Dec, Lymphedema I89.0 and Chronic systolic congestive heart failure I50.22 [facility] [id number] [place] [address] 42817- 2292 Dec, [facility] [id number] [place] [address] 97041- 5313 Nov, Type 2 diabetes mellitus with diabetic chronic kidney disease E11.22 [facility] [address], [place] [address]- 8359 Nov, Chronic pain G89.29 and Dysthymic disorder F34.1 [facility] [id number] [place] [address] 50260- 1510 08 Nov, 2017 [facility] [id number] [place] [address] 98118- 8807 Oct, HTN (hypertension) I10 ; Chronic pain G89.29 ; BMI 45.0-49.9 , adult Z68.42 ; Primary insomnia F51.01 ; Mixed hyperlipidemia E78.2 ; Dysthymic disorder F34.1 ; Type 2 diabetes mellitus with diabetic chronic kidney disease E11.22 ; Chronic congestive heart failure, unspecified congestive heart failure type I50.9 ; Acute non-recurrent maxillary sinusitis J01.00 and BMI 50.0-59.9, adult Z68.43 [facility] [id number] [place] [address] 59743- 5359 17 Oct, 2017 HTN (hypertension) I10 and Dysthymic disorder F34.1 [facility] [id number] [place] [address] 60134- 6244 Oct, [facility] [id number] [place] [address] 85404- 3034 Oct, HTN (hypertension) I10 [place] [address] [place] [address] 28216- 0515 Oct, Chronic pain G89.29 [place] [address] [place] [address] 79503- 2007 Sep, [facility] [id number] [place] [address] 50114- 5358 Sep, HTN (hypertension) I10 ; Chronic pain G89.29 ; BMI 45.0-49.9 , adult Z68.42 ; Primary insomnia F51.01 ; Mixed hyperlipidemia E78.2 ; Dysthymic disorder F34.1 and Type 2 diabetes mellitus with diabetic chronic kidney disease E11.22 [place] [address] [address]- 3575 Sep, Chronic pain G89.29 [facility] [id number] [place] [address] 14267- 9059 Sep, Acute on chronic heart failure, unspecified heart failure type I50.9 [id number] [place] [address] 53713- 0157 Sep, Acute on chronic heart failure, unspecified heart failure type I50.9 ; Type 2 diabetes mellitus with diabetic chronic kidney disease E11.22 and BMI 50.0-59.9, adult Z68.43 [address] [place] [address] 10116- 8046 Sep, Acute on chronic heart failure, unspecified heart failure type I50.9 ; HTN (hypertension) I10 and Type 2 diabetes mellitus with diabetic chronic kidney disease E11.22 [id number] [place] [address] 98429- 0724 Aug, Acute on chronic heart failure, unspecified heart failure type I50.9 ; HTN (hypertension) I10 ; Type 2 diabetes mellitus with diabetic chronic kidney disease E11.22 ; Cellulitis of right lower extremity L03.115 and BMI 50.0-59.9, adult Z68.43 [facility] [address] [address] Aug, Acute upper respiratory infection, unspecified J06.9 ; Other viral agents as the cause of diseases classified elsewhere B97.89 ; Constipation, unspecified constipation type K59.00 ; BMI 50.0-59.9, adult Z68.43 and BMI 60.0-69.9, adult Z68.44 [address] [place] [address] 81261- 0134 Aug, Chronic pain G89.29 [place] [address], [place] [address]- 2116 Jul, Chronic pain G89.29 [place] [address], [place] [address]- 1549 Jul, Chronic pain G89.29 [facility] [id number] [place] [address] 43382- 1155 Jun, Chronic pain G89.29 [place] [id number] [place] [address] 75498- 0182 Jun, [place] [address] 33809- 8760 Jun, Chronic pain G89.29 [place] [id number] [place] [address] 27511- 9078 May, Chronic pain G89.29 and Type 2 diabetes mellitus with diabetic chronic kidney disease E11.22 [facility] [id number] [place] [address] 86912- 0960 May, [facility] [id number] [place] [address] 37717- 2637 May, Chronic pain G89.29 and Anxiety F41.9 [facility] [id number] [place] [address] 95906- 2813 May, Type 2 diabetes mellitus with diabetic chronic kidney disease E11.22 ; Social phobia F40.10 ; Morbid obesity E66.01 ; Chronic pain G89.29 ; HTN (hypertension) I10 ; Degenerative disc disease at L5-S1 level M51.36 ; BPH (benign prostatic hyperplasia) N40.0 ; Pain in right knee M25.561 and 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 [place] [address] [place] [address] 63580- 4494 Apr, Anxiety F41.9 [facility] [id number] [place] [address] 60485- 0907 Apr, [facility] [id number] [place] [address] 49285- 9629 Mar, [place] [address] 31744- 8415 Mar, Edema, unspecified type R60.9 and Anxiety F41.9 [place] [address] 24584- 9714 Mar, Social phobia F40.10 ; Mixed obsessional thoughts and acts F42.2 and Mild episode of recurrent major depressive disorder F33.0 [place] [address] 60258- 7549 Mar, Degenerative disc disease at L5-S1 level M51.36 [place] [address] 30788- 0402 Mar, [place] [address] 70575- 9424 Mar, [place] [address] 04623- 0908 Mar, [place] [address] 83616- 1827 February, Morbid obesity E66.01 ; Anxiety F41.9 ; Degenerative disc disease at L5-S1 level M51.36 ; BPH (benign prostatic hyperplasia) N40.0 ; Social phobia F40.10 ; HTN (hypertension) I10 ; Edema, unspecified type R60.9 and Screening cholesterol level Z13.220 [place] [address] 56474- 3240 February, Social phobia, generalized F40.11 [facility] [id number] [place] [address] 00129- 3350 February, Chronic pain G89.29 [place] [address] 84152- 7901 February, [facility] [address] 56560- 0407 Jan, Chronic pain G89.29 [facility] [address] [place] [address]- 3536 04 Jan, 2017 Panic disorder [episodic paroxysmal anxiety] without agoraphobia F41.0 [place] [address] 53998- 1199 13 Dec, 2016 Morbid obesity E66.01 ; Anxiety F41.9 ; Chronic pain G89.29 ; HTN (hypertension) I10 ; BPH (benign prostatic hyperplasia) N40.0 ; Generalized edema R60.1 and Cough R05 [place] [address] 59356- 4385 14 Nov, 2016 Chronic pain G89.29 [place] [address] 39229- 0536 03 Nov, 2016 Social phobia, generalized F40.11 and Mild episode of recurrent major depressive disorder F33.0 [place] [address] 66882- 3678 Oct, Chronic pain G89.29 [facility] [address] 86690- 2223 Oct, Social phobia, generalized F40.11 [facility] [id number] [place] [address] 68590- 2197 Sep, [facility] [id number] [place] [address] 50439- 4885 Sep, [facility] [id number] [place] [address] 35193- 5240 Sep, [facility] [id number] [place] [address] 07513- 7022 Sep, [facility] [address] 59418- 3580 Sep, [facility] [id number] [place] [address] 38495- 9899 Sep, Social phobia, generalized F40.11 and Mild episode of recurrent major depressive disorder F33.0 [place] [address] [address]- 9306 08 Sep, 2016 [facility] [id number] [place] [address] 40146- 2929 Aug, [facility] [id number] [place] [address] 60363- 3832 Aug, [facility] [id number] [place] [address] 93710- 2169 17 Aug, 2016 Bronchitis J40 [facility] [id number] [place] [address] 48877- 2860 15 Aug, 2016 [facility] [id number] [place] [address] 33183- 0274 10 Aug, 2016 Osteoarthritis of knee, unspecified M17.9 [facility] [id number] [place] [address] 90187- 6581 09 Aug, 2016 Morbid obesity E66.01 ; Chronic pain G89.29 ; Anxiety F41.9 ; Social phobia F40.10 ; HTN (hypertension) I10 ; Social phobia, generalized F40.11 ; Acute upper respiratory infection, unspecified J06.9 and Other viral agents as the cause of diseases classified elsewhere B97.89 [facility] [address] [place] [address] 41445- 5459 Aug, Social phobia, generalized F40.11 and Dysthymic disorder F34.1 [facility] [address] [place] [address] 18101- 3851 Jul, [facility] [address] [place] [address] 33336- 3223 Jun, [facility] [id number] [place] [address] 18373- 0500 May, [facility] [address] [place] [address] 61140- 9885 May, [facility] [id number] [place] [address] 16084- 3146 May, [facility] [address], [place] [address]- 3113 May, [facility] [address] [place] [address] 74291- 5558 May, [facility] [id number] [place] [address] 87106- 9343 May, [facility] [id number] [place] [address] 11969- 8517 May, [facility] [id number] [place] [address] 41548- 8707 Apr, [facility] [id number] [place] [address] 68422- 4143 Apr, Chondromalacia, right knee M94.261 [facility] [id number] [place] [address] 63841- 3429 Apr, Pain in unspecified hip M25.559 [facility] [id number] [place] [address] 82906- 8999 Mar, Social phobia, unspecified F40.10 and Pain in unspecified hip M25.559 [facility] [id number] [place] [address] 78754- 8153 February, [facility] [id number] [place] [address] 55694- 2241 February, Social phobia F40.10 [facility] [address], [place] [address]- 2601 February, Morbid obesity E66.01 ; Chronic pain G89.29 ; Social phobia F40.10 ; Pelvic pain in male R10.2 ; HTN (hypertension) I10 ; Degenerative disc disease at L5-S1 level M51.36 ; BPH (benign prostatic hyperplasia) N40.0 and Pain in right knee M25.561 [facility] [id number] [place] [address] 28497- 0210 14 Jan, 2016 [facility] [id number] [place] [address] 28399- 7701 13 Jan, 2016 [facility] [id number] [place] [address] 82402- 2089 12 Jan, 2016 [facility] [id number] [place] [address] 39645- 9274 17 Dec, 2015 [facility] [address] 63854- 2231 Dec, [facility] [address] 36804- 0603 Dec, [facility] [id number] [place] [address] 27366 -6202 29 Nov, 2015 Strep pharyngitis J02.0 ; Influenza A J10.1 and Cough R05 [facility] [id number] [place] [address] 39512- 0625 Nov, [facility] [id number] [place] [address] 75875- 4826 Nov, [facility] [id number] [place] [address] 26050- 2208 Oct, HTN (hypertension) I10 ; Morbid obesity E66.01 ; Anxiety F41.9 ; Social phobia F40.10 ; Panic disorder F41.0 ; Degenerative disc disease at L5-S1 level M51.36 and Hypercholesterolemia E78.0 [facility] [id number] [place] [address] 60326- 8368 Oct, Panic disorder [episodic paroxysmal anxiety] without agoraphobia F41.0 and Social phobia, generalized F40.11 [facility] [id number] [place] [address] 47583- 9263 Oct, [facility] [id number] [place] [address] 80452- 4138 Sep, [facility] [address], [place] [address]- 6465 Sep, [facility] [address] [address]- 6025 Sep, [facility] [address] [address]- 0815 Sep, [facility] [address] [place] [address] 62600- 0732 Aug, [facility] [address] [place] [address] 52534- 6238 Aug, [facility] [address] [place] [address] 13790- 7673 Aug, [facility] [address] [place] [address] 99703- 3877 Aug, Social phobia F40.10 and Panic disorder F41.0 [facility] [address] [address]- 4360 Aug, [facility] [address] [place] [address] 71072- 5726 Aug, [facility] [address] [address]- 3910 Aug, [facility] [address] [place] [address] 85918- 9525 Aug, [facility] [address], [place] [address]- 1463 Jul, [facility] [address] [place] [address] 25107- 1158 Jul, Morbid obesity E66.01 ; Chronic pain G89.29 ; Anxiety F41.9 ; Social phobia F40.10 ; Panic disorder F41.0 ; Pelvic pain in male R10.2 ; Insomnia G47.00 and HTN (hypertension) I10 [facility] [id number] [place] [address] 99276- 1341 Jul, [facility] [id number] [place] [address] 17333- 9830 Jul, [facility] [id number] [place] [address] [id number]- [phone] 16 Jun, 2015 Degenerative disc disease 722.6 [facility] [address] [phone]- [phone] Jun, Pain in joint, pelvic region and thigh 719.45 ; Morbid obesity 278.01 ; Essential hypertension, benign 401.1 and Constipation 564.00 [facility] [id number] [place] [address] [phone]- [phone] May, [facility] [id number] [place] [address] [phone] May, [facility] [id number] [place] [address] [phone]- [phone] May, [facility] [id number] [place] [address] [phone]- [phone] May, [facility] [id number] [place] [address] [phone] May, [facility] [id number] [place] [address] [phone]- [phone] May, [facility] [id number] [place] [address] 53426- 5372 May, Essential hypertension, benign 401.1 ; Anxiety state, unspecified 300.00 ; Panic disorder without agoraphobia 300.01 ; Social phobia 300.23 ; Morbid obesity 278.01 ; Other chronic pain 338.29 and Insomnia 780.52 [facility] [id number] [place] [address] [phone]- [phone] May, Essential hypertension 401.9 [facility] [id number] [place] [address] [id number]- [phone] May, Pain in joint, pelvic region and thigh 719.45 [facility] [id number] [address] May, Essential hypertension, benign 401.1 [facility] [id number] [place] [address] 18769- 3225 May, Panic disorder without agoraphobia 300.01 and Social phobia 300.23 [facility] [id number] [place] [address] 73699- 8899 May, [facility] [id number] [place] [address] 95457- 2236 May, [facility] [id number] [place] [address] 87142- 8626 Apr, Chronic pain 338.29 [facility] [id number] [place] [address] 32390- 1728 Apr, [facility] [id number] [place] [address] 31002- 2640 Apr, [facility] [id number] [place] [address] 83607- 1088 Apr, [facility] [id number] [place] [address] 56158- 5190 Apr, [facility] [address] [address] Apr, [facility] [id number] [place] [address] 62801- 0967 Apr, [facility] [id number] [place] [address] 46982- 7201 Apr, [facility] [id number] [place] [address] 75269- 9325 Apr, Essential hypertension, benign 401.1 ; Morbid obesity 278.01 ; Anxiety state, unspecified 300.00 ; Panic disorder without agoraphobia 300.01 ; Social phobia 300.23 and Chronic pain 338.29 [facility] [address] [address] Mar, [facility] [id number] [place] [address] 66476- 6644 Mar, [facility] [id number] [place] [address] 04701- 0666 Mar, [facility] [address] [address]- 2311 Mar, [facility] [id number] [place] [address] 05112- 1235 Mar, Social phobia 300.23 and Panic disorder without agoraphobia 300.01 [facility] [id number] [place] [address] 16892- 8581 Mar, [facility] [id number] [place] [address] 13821- 8508 February, [facility] [id number] [place] [address] 34353- 5904 February, Major depression, recurrent 296.30 and No condition on Terril II V71.09 [facility] [id number] [place] [address] 48021- 2463 February, [facility] [id number] [place] [address] 51820- 3099 February, Panic disorder without agoraphobia 300.01 ; Social phobia 300.23 and Morbid obesity 278.01 [facility] [id number] [place] [address] 80984- 8613 Jan, [facility] [id number] [place] [address] 83405- 6391 Jan, [facility] [id number] [place] [address] 66796- 4816 Dec, [facility] [id number] [place] [address] 48073- 4576 Dec, [facility] [address] [facility] [id number] [address] 8846 Dec, [facility] [address] [facility] [id number] [address] Dec, [facility] [address] [facility] [id number], [place] [address] 7099 Dec, [facility] [address] [facility] [id number] [address] Dec, [facility] [address] [facility] [id number] [address] 1585 Dec, [facility] [address] [facility] [id number] 1692 Dec, [facility] [address] [address]- 7132 Dec, [facility] [address] [facility] [id number], [place] [address] 7039 Dec, [facility] [address] [facility] [id number] [address] 1426 Dec, [facility] [address], [place] [address] 3535 Dec, [facility] [id number], [place] [address]- 8011 Dec, [facility] [address] [facility] [id number], [place] [address]- 0200 Dec, [facility] [address] [facility] [id number] [address]- 1631 Dec, [facility] [address] [address] 2797 Dec, IMMUNIZATIONS No Known Immunizations SOCIAL HISTORY Never Assessed REASON FOR VISIT diabetic foot care - ZAYRA Friedman PLAN OF CARE Activity Details Follow Up 3 Months Reason: Future/Pending Procedure DEBRIDE NAIL >6 VITAL SIGNS Height 73 in 2018-08-25 Blood pressure systolic 120 mmHg 2018-08-25 Blood pressure diastolic 86 mmHg 2018-08-25 MEDICATIONS Unknown Medications RESULTS No Results PROCEDURES Procedure Date Ordered Result Body Site DEBRIDE NAIL, 6 OR MORE Aug 25, 2018 [facility] VISIT ESTABLISHED PATIENT Aug 25, 2018 INSTRUCTIONS MEDICATIONS ADMINISTERED No Known Medications [...]
--- OUTSIDE RECORDS SUMMARY | 2018-11-30 17:23 | XMS REPORT ---
Author Author ROSE MARY BUCKNER 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 Name Role Phone ISA BUCKNERTA Unavailable PROBLEMS Type Condition ICD9-CM Code [id number] Code Onset Dates Condition Status SNOMED Code Problem Type 2 diabetes mellitus with diabetic chronic kidney disease E11.22 Active 80588016 Problem Mixed hyperlipidemia E78.2 Active 299622048 Problem Primary insomnia F51.01 Active 5728671 Problem Major depressive disorder, recurrent, in full remission F33.42 Active 060697346 Problem Lymphedema I89.0 Active 303044015 Problem BMI 50.0-59.9, adult Z68.43 Active 401018824 Problem Constipation, unspecified constipation type K59.00 Active 00151244 Problem Chronic systolic congestive heart failure I50.22 Active 431642951 Problem Stasis dermatitis of both legs I87.2 Active 20300122 Problem Abnormal liver function test R94.5 Active 347057178 Problem Panic disorder F41.0 Active 402359919 Problem Controlled substance agreement terminated Z91.14 Active 554466560 Problem Cardiomegaly I51.7 Active 1764725 Problem Degenerative disc disease at L5-S1 level M51.36 Active 22795726 Problem BPH (benign prostatic hyperplasia) N40.0 Active 298032374 Problem Chronic pain G89.29 Active 78505115 Problem Dysthymic disorder F34.1 Active 71907804 Problem HTN (hypertension) I10 Active 97447497 Problem Mild episode of recurrent major depressive disorder F33.0 Active 280072077 ALLERGIES No Information ENCOUNTERS Encounter Location Date Diagnosis [facility] [address] [facility] [id number] [address] Aug, [facility] [address] [facility] [id number] [address] [address] Jul, [facility] [address] [facility] [id number] [place] [address] 57160- 3675 Jul, [facility] [address] [place] [id number] [place] [address] 46204- 3904 Jul, Type 2 diabetes mellitus with diabetic chronic kidney disease E11.22 [facility] [address] [place] [id number] [place] [address] 99097- 1908 Jul, [facility] [address] 95227- 8161 Jul, Type 2 diabetes mellitus with diabetic chronic kidney disease E11.22 [facility] [address] 51596- 4975 Jul, Chronic systolic congestive heart failure I50.22 and Mixed hyperlipidemia E78.2 [facility] [address] [place] [id number] [place] [address] 07644- 3061 Jun, [facility] [address] 44061- 4029 Jun, Type 2 diabetes mellitus with diabetic chronic kidney disease E11.22 [facility] [address] [place] [id number] [place] [address] 31867- 4024 Jun, Onychomycosis B35.1 ; Self-care deficit for hygiene R46.0 and Nail hypertrophy L60.2 [facility] [place] [address] [place] [id number] [place] [address] 46797- 6877 Jun, Dental examination Z01.20 [facility] [address] [place] [id number] [place] [address] 60009- 9514 Jun, Tooth infection K04.7 ; BMI 40.0-44.9, adult Z68.41 and Mouth pain K13.79 [facility] [address] [place] [id number] [place] [address] 60695- 1895 Jun, Type 2 diabetes mellitus with diabetic chronic kidney disease E11.22 [facility] [address] [place] [id number] [place] [address] 72840- 4133 May, Degenerative disc disease at L5-S1 level M51.36 ; Chronic pain G89.29 and BMI 40.0-44.9, adult Z68.41 [facility] [address] [id number] [address] 8160 May, [facility] [id number] [address] 5032 May, Type 2 diabetes mellitus with diabetic chronic kidney disease E11.22 [facility] [address] [id number] [place] [address] 20978- 9507 May, [facility] [place] [address] [place] [id number] [place] [address] 76250- 0050 May, Degenerative disc disease at L5-S1 level M51.36 [facility] [place] [address] [place] [id number] [place] [address] 47450- 2387 May, [facility] [place] [address] [place] [id number] [place] [address] 14752- 0080 May, [facility] [address] [id number] [place] [address] 17182- 7761 May, [facility] [id number] [place] [address] 58546- 8678 Apr, Type 2 diabetes mellitus with diabetic chronic kidney disease E11.22 ; Chronic pain G89.29 ; Major depressive disorder, recurrent, in full remission F33.42 ; HTN (hypertension) I10 ; Chronic systolic congestive heart failure I50.22 ; Mixed hyperlipidemia E78.2 and BMI 45.0-49.9, adult Z68.42 [facility] [place] [address], [place] [address] 8293 18 Apr, 2018 Type 2 diabetes mellitus with diabetic chronic kidney disease E11.22 [facility] [place] [address] [address] 9448 17 Apr, 2018 Medicare annual wellness visit, [...] vaccine Z28.21 and Encounter for immunization Z23 [address] 70282- 8275 Apr, [facility] [address] 24035- 2897 Mar, Type 2 diabetes mellitus with diabetic chronic kidney disease E11.[address] 77422- 9194 Mar, Chronic pain G89.[address] 81599- 7206 February, Chronic pain G89.29 ; Abnormal liver function test R94.5 and Degenerative disc disease at L5-S1 level M51.36 [facility] [address] [place] [id number] [place] [address] 77462- 0784 Jan, [facility] [address] [place] [id number] [place] [address] 70549- 0456 Jan, [facility] [address] [place] [id number] [place] [address] 73267- 1268 Jan, [place] [id number] [place] [address] 11856- 3705 Jan, Abnormal liver function test R94.5 ; Dysthymic disorder F34.1 and Chronic pain G89.29 [facility] [address] [place] [id number] [place] [address] 80678- 4944 Dec, [facility] [address] [place] [id number] [place] [address] 70600- 7956 13 Mar, 2018 HTN (hypertension) I10 ; BMI 45.0-49.9, adult Z68.42 ; Chronic pain G89.29 ; Primary insomnia F51.01 ; Mixed hyperlipidemia E78.2 ; Dysthymic disorder F34.1 ; Type 2 diabetes mellitus with diabetic chronic kidney disease E11.22 ; Stasis dermatitis of both legs I87.2 and Chronic systolic congestive heart failure I50.22 [facility] [address] [id number] [place] [address] 35581- 2840 12 Dec, 2017 Chronic pain G89.29 [facility] [address] [address] [id number] [place] [address] 62621 -4686 04 Dec, 2017 Lymphedema I89.0 and Chronic systolic congestive heart failure I50.22 [facility] [place] [address] [place] [id number] [place] [address] 47872- 5382 Dec, [facility] [address] [address] [id number] [place] [address] 46038- 5674 Nov, Type 2 diabetes mellitus with diabetic chronic kidney disease E11.22 [facility] [address] [address] [id number] [place] [address] 61563- 7132 Nov, Chronic pain G89.29 and Dysthymic disorder F34.1 [facility] [address] [id number] [place] [address] 73287- 8407 Nov, [facility] [address] [address] [id number] [place] [address] 83524- 9116 Oct, HTN (hypertension) I10 ; Chronic pain G89.29 ; BMI 45.0-49.9 , adult Z68.42 ; Primary insomnia F51.01 ; Mixed hyperlipidemia E78.2 ; Dysthymic disorder F34.1 ; Type 2 diabetes mellitus with diabetic chronic kidney disease E11.22 ; Chronic congestive heart failure, unspecified congestive heart failure type I50.9 ; Acute non-recurrent maxillary sinusitis J01.00 and BMI 50.0-59.9, adult Z68.43 [facility] [place] [address] [address] [id number] [place] [address] 32226- 4553 Oct, HTN (hypertension) I10 and Dysthymic disorder F34.1 [place] [address], [place] [address]- 5401 Oct, [facility] [id number] [place] [address] 70509- 6701 Oct, HTN (hypertension) I10 [facility] [place] [address] [address] [id number] [place] [address] 57632- 9705 Oct, Chronic pain G89.29 [facility] [place] [address] [id number] [place] [address] 94342- 6721 Sep, [facility] [place] [address] [id number] [place] [address] 56773- 4159 Sep, HTN (hypertension) I10 ; Chronic pain G89.29 ; BMI 45.0-49.9 , adult Z68.42 ; Primary insomnia F51.01 ; Mixed hyperlipidemia E78.2 ; Dysthymic disorder F34.1 and Type 2 diabetes mellitus with diabetic chronic kidney disease E11.22 [facility] [place] [id number] [place] [address] 64511- 4231 18 Sep, 2017 Chronic pain G89.29 [facility] [place] [address] [place] [id number] [place] [address] 69903- 8756 Sep, Acute on chronic heart failure, unspecified heart failure type I50.9 [facility] [place] [id number] [place] [address] 02962- 2714 Sep, Acute on chronic heart failure, unspecified heart failure type I50.9 ; Type 2 diabetes mellitus with diabetic chronic kidney disease E11.22 and BMI 50.0-59.9, adult Z68.43 [facility] [place] [id number] [place] [address] 08138- 6356 Sep, Acute on chronic heart failure, unspecified heart failure type I50.9 ; HTN (hypertension) I10 and Type 2 diabetes mellitus with diabetic chronic kidney disease E11.22 [facility] [place] [id number] [place] [address] 62389- 5635 Aug, Acute on chronic heart failure, unspecified heart failure type I50.9 ; HTN (hypertension) I10 ; Type 2 diabetes mellitus with diabetic chronic kidney disease E11.22 ; Cellulitis of right lower extremity L03.115 and BMI 50.0-59.9, adult Z68.43 [facility] [id number] [place] [address] 98847 -2211 Aug, Acute upper respiratory infection, unspecified J06.9 ; Other viral agents as the cause of diseases classified elsewhere B97.89 ; Constipation, unspecified constipation type K59.00 ; BMI 50.0-59.9, adult Z68.43 and BMI 60.0-69.9, adult Z68.44 [facility] [place] [address] [place] [id number] [place] [address] 14866- 4815 Aug, Chronic pain G89.29 [facility] [address] [place] [id number] [place] [address] 62215- 0785 Jul, Chronic pain G89.29 [facility] [address] [address] [id number] [place] [address] 84274- 5638 Jul, Chronic pain G89.29 [facility] [address] [address] [id number] [place] [address] 11991- 6647 Jun, Chronic pain G89.29 [facility] [address] [address] [id number] [place] [address] 25894- 2878 Jun, [facility] [address] [place] [id number] [place] [address] 29116- 8528 Jun, Chronic pain G89.29 [facility] [address] [place] [address] [id number] [place] [address] 49467- 6279 May, Chronic pain G89.29 and Type 2 diabetes mellitus with diabetic chronic kidney disease E11.22 [facility] [address] [place] [address] [id number] [place] [address] 24480- 2206 May, [facility] [address] [address] [id number] [place] [address] 96620- 9052 May, Chronic pain G89.29 and Anxiety F41.9 [facility] [address] [place] [address] [id number] [place] [address] 42671- 3447 May, Type 2 diabetes mellitus with diabetic chronic kidney disease E11.22 ; Social phobia F40.10 ; Morbid obesity E66.01 ; Chronic pain G89.29 ; HTN (hypertension) I10 ; Degenerative disc disease at L5-S1 level M51.36 ; BPH (benign prostatic hyperplasia) N40.0 ; Pain in right knee M25.561 and 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 [place] [address] 28794- 5828 Apr, Anxiety F41.9 [place] [address] 41957- 7649 Apr, [facility] [address] 80407- 3822 Mar, [place] [address] 87819- 2680 Mar, Edema, unspecified type R60.9 and Anxiety F41.9 [facility] [place] [address] 20940- 4322 Mar, Social phobia F40.10 ; Mixed obsessional thoughts and acts F42.2 and Mild episode of recurrent major depressive disorder F33.0 [facility] [address] [address] [id number] [place] [address] 28829- 1817 Mar, Degenerative disc disease at L5-S1 level M51.36 [facility] [address] [place] [id number] [place] [address] 37312- 1834 Mar, [facility] [place] [address] 21506- 7613 Mar, [facility] [place] [address] [place] [id number] [place] [address] 94772- 7730 Mar, [facility] [place] [address] 20099- 6807 February, Morbid obesity E66.01 ; Anxiety F41.9 ; Degenerative disc disease at L5-S1 level M51.36 ; BPH (benign prostatic hyperplasia) N40.0 ; Social phobia F40.10 ; HTN (hypertension) I10 ; Edema, unspecified type R60.9 and Screening cholesterol level Z13.220 [facility] [place] [address] 46584- 5602 February, Social phobia, generalized F40.11 [place] [address] 47085- 4243 February, Chronic pain G89.[address] 90906- 0221 February, [place] [address] 02677- 1390 Jan, Chronic pain G89.29 [facility] [place] [address] 89322- 8604 Jan, Panic disorder [episodic paroxysmal anxiety] without agoraphobia F41.[address] 27361- 9901 Dec, Morbid obesity E66.01 ; Anxiety F41.9 ; Chronic pain G89.29 ; HTN (hypertension) I10 ; BPH (benign prostatic hyperplasia) N40.0 ; Generalized edema R60.1 and Cough R05 [facility] [place] [address] [place] [id number] [place] [address] 25190- 1407 Nov, Chronic pain G89.29 [facility] [place] [address] 57702- 9018 Nov, Social phobia, generalized F40.11 and Mild episode of recurrent major depressive disorder F33.0 [facility] [place] [address] [place] [id number] [place] [address] 76005- 2684 Oct, Chronic pain G89.29 [place] [address], [place] [address]- 8887 Oct, Social phobia, generalized F40.11 [facility] [id number] [place] [address] 01913- 9455 Sep, [facility] [address] [place] [address] [id number] [place] [address] 54232- 8626 Sep, [facility] [address] [address] [id number] [place] [address] 01638- 8241 Sep, [facility] [id number] [place] [address] 07265- 1461 Sep, [facility] [address] [id number] [place] [address] 28530- 4309 Sep, [facility] [address] [id number] [place] [address] 40731- 4929 Sep, Social phobia, generalized F40.11 and Mild episode of recurrent major depressive disorder F33.0 [facility] [id number] [place] [address] 06723- 1186 Sep, [facility] [address] [id number] [place] [address] 22345- 3299 Aug, [facility] [id number] [place] [address] 72796- 2328 Aug, [facility] [id number] [place] [address] 53658- 0635 Aug, Bronchitis J40 [facility] [id number] [place] [address] 67975- 4654 15 Aug, 2016 [facility] [id number] [place] [address] 79417- 6175 10 Aug, 2016 Osteoarthritis of knee, unspecified M17.9 [facility] [address], [place] [address]- 5144 09 Aug, 2016 Morbid obesity E66.01 ; Chronic pain G89.29 ; Anxiety F41.9 ; Social phobia F40.10 ; HTN (hypertension) I10 ; Social phobia, generalized F40.11 ; Acute upper respiratory infection, unspecified J06.9 and Other viral agents as the cause of diseases classified elsewhere B97.89 [facility] [id number] [place] [address] 15408- 4097 Aug, Social phobia, generalized F40.11 and Dysthymic disorder F34.1 [facility] [address] [address] [id number] [place] [address] 92711- 3054 Jul, [facility] [address] [id number] [place] [address] 42748- 8462 Jun, [facility] [address] [id number] [place] [address] 99337- 4577 May, [facility] [address] [id number] [place] [address] 25684- 7274 May, [facility] [address] [id number] [place] [address] 06866- 5266 May, [facility] [address] [id number] [place] [address] 84645- 7069 May, [facility] [address] [id number] [place] [address] 84701- 6327 May, [facility] [address] [id number] [place] [address] 94666- 9246 May, [facility] [address] [id number] [place] [address] 59147- 0551 May, [facility] [address] [id number] [place] [address] 79570- 8957 Apr, [facility] [address] [id number] [place] [address] 16415- 3798 Apr, Chondromalacia, right knee M94.261 [facility] [address] [id number] [place] [address] 30052- 1916 Apr, Pain in unspecified hip M25.559 [facility] [id number] [place] [address] 15654- 2477 Mar, Social phobia, unspecified F40.10 and Pain in unspecified hip M25.559 [facility] [address] [place] [address] [id number] [place] [address] 45586- 4869 February, [facility] [address] 53959- 9795 February, Social phobia F40.10 [place] [address] [place] [address] [id number] [place] [address] 69834- 9381 February, Morbid obesity E66.01 ; Chronic pain G89.29 ; Social phobia F40.10 ; Pelvic pain in male R10.2 ; HTN (hypertension) I10 ; Degenerative disc disease at L5-S1 level M51.36 ; BPH (benign prostatic hyperplasia) N40.0 and Pain in right knee M25.561 [facility] [address] [id number] [place] [address] 23664- 4350 14 Jan, 2016 [place] [address] [place] [address] [id number] [place] [address] 07596- 4505 Jan, [place] [address] [place] [address] [id number] [place] [address] 84942- 4102 Jan, [facility] [address] [id number] [place] [address] 77218- 2609 Dec, [facility] [address] [id number] [place] [address] 51246- 5775 Dec, [facility] [address] [id number] [place] [address] 26630- 8943 Dec, [facility] [id number] [place] [address] 40120 -0013 Nov, Strep pharyngitis J02.0 ; Influenza A J10.1 and Cough R05 [place] [address] [place] [id number] [place] [address] 08957- 6405 Nov, [facility] [address] [id number] [place] [address] 96322- 0613 Nov, [facility] [address] [id number] [place] [address] 74065- 3844 Oct, HTN (hypertension) I10 ; Morbid obesity E66.01 ; Anxiety F41.9 ; Social phobia F40.10 ; Panic disorder F41.0 ; Degenerative disc disease at L5-S1 level M51.36 and Hypercholesterolemia E78.0 [facility] [id number] [place] [address] 48204- 0483 Oct, Panic disorder [episodic paroxysmal anxiety] without agoraphobia F41.0 and Social phobia, generalized F40.11 [facility] [id number] [place] [address] 32415- 6488 Oct, [facility] [id number] [place] [address] 42107- 8967 Sep, [facility] [id number] [place] [address] 64939- 8575 Sep, [facility] [id number] [place] [address] 23129- 7251 Sep, [facility] [id number] [place] [address] 76739- 2009 Sep, [facility] [id number] [place] [address] 94419- 9752 Aug, [facility] [id number] [place] [address] 46786- 6557 Aug, [facility] [id number] [place] [address] 26663- 5717 Aug, [facility] [id number] [place] [address] 69113- 4105 Aug, Social phobia F40.10 and Panic disorder F41.0 [facility] [id number] [place] [address] 60691- 7523 Aug, [facility] [address] 51238- 0170 Aug, [facility] [address] 69546- 1349 Aug, [facility] [address] 10454- 9939 Aug, [facility] [address] 95566- 1739 Jul, [facility] [address] 76387- 7174 Jul, Morbid obesity E66.01 ; Chronic pain G89.29 ; Anxiety F41.9 ; Social phobia F40.10 ; Panic disorder F41.0 ; Pelvic pain in male R10.2 ; Insomnia G47.00 and HTN (hypertension) I10 [facility] [id number] [place] [address] 99747- 6567 Jul, [facility] [address] 87147- 2223 Jul, [facility] [id number] [place] [address] 36738- 2857 Jun, Degenerative disc disease 722.6 [facility] [address] [id number] [place] [address] 60306- 8029 Jun, Pain in joint, pelvic region and thigh 719.45 ; Morbid obesity 278.01 ; Essential hypertension, benign 401.1 and Constipation 564.00 [facility] [address] 37318- 8759 May, [facility] [address] 85925- 7653 May, [facility] [address] 12339- 1530 May, [facility] [address], [place] [address]- 6738 May, [facility] [id number] [place] [address] 14273- 8821 May, [facility] [id number] [place] [address] 75365- 2512 May, [facility] [id number] [place] [address]- [address] May, Essential hypertension, benign 401.1 ; Anxiety state, unspecified 300.00 ; Panic disorder without agoraphobia 300.01 ; Social phobia 300.23 ; Morbid obesity 278.01 ; Other chronic pain 338.29 and Insomnia 780.52 [facility] [id number] [place] [address] 13018- 6251 May, Essential hypertension 401.9 [facility] [id number] [place] [address] 637[address]- 6050 May, Pain in joint, pelvic region and thigh 719.45 [facility] [id number] [place] [address] 06339- 7466 May, Essential hypertension, benign 401.1 [facility] [id number] [place] [address] 30477- 9945 May, Panic disorder without agoraphobia 300.01 and Social phobia 300.23 [facility] [id number] [place] [address] 77676- 1729 May, [facility] [id number] [place] [address] 97584- 0171 May, [facility] [id number] [place] [address] 68042- 9062 Apr, Chronic pain 338.29 [facility] [id number] [place] [address] 11352- 5234 Apr, [facility] [id number] [address] Apr, [facility] [id number] [address] Apr, [facility] [id number] [address] Apr, [facility] [id number] [place] [address] 25915- 0180 Apr, [facility] [facility] [id number] [place] [id number]- [address] Apr, [facility] [id number] [place] [address]- 6978 Apr, [facility] [id number] [place] [address]- 1867 Apr, Essential hypertension, benign 401.1 ; Morbid obesity 278.01 ; Anxiety state, unspecified 300.00 ; Panic disorder without agoraphobia 300.01 ; Social phobia 300.23 and Chronic pain 338.29 [facility] [address] [address] Mar, [facility] [id number] [place] [address]- 6428 Mar, [facility] [id number], [place] [address] Mar, [facility] [id number] [address] Mar, [facility] [id number], [place] [address] Mar, Social phobia 300.23 and Panic disorder without agoraphobia 300.01 [facility] [id number], [place] [address] Mar, [facility] [id number], [place] [address] February, [facility] [id number], [place] [address] February, Major depression, recurrent 296.30 and No condition on [place] II V71.09 [facility] [id number] [address] February, [facility] [id number] [address] February, Panic disorder without agoraphobia 300.01 ; Social phobia 300.23 and Morbid obesity 278.01 [facility] [address], [place] [address] Jan, [facility] [id number] [place] [address]- 0[address] Jan, [facility] [id number] [place] [address]- [address] Dec, [facility] [id number], [place] [address] Dec, [facility] [id number], [place] [address] Dec, [facility] [id number], [place] [address] Dec, [facility] [id number], [place] [address] Dec, [facility] [id number], [place] [address] Dec, [facility] [id number], [place] [address] Dec, [facility] [id number], [place] [address] Dec, [facility] [id number] [place] [address] Dec, [facility] [id number] [place] [address]- 5346 Dec, [facility] [address] [facility] [id number] [place] [address] Dec, [facility] [address] [facility] [id number] [address] Dec, [facility] [address] [facility] [id number] [address] Dec, [facility] [address] [facility] [id number] [address] Dec, [facility] [address] [facility] [id number] [address] Dec, [facility] [address] [facility] [id number], [place] [address] Dec, IMMUNIZATIONS No Known Immunizations SOCIAL HISTORY Never Assessed REASON FOR VISIT Specialist follow up call PLAN OF CARE VITAL SIGNS MEDICATIONS Medication Instructions Dosage Frequency Start Date End Date Duration Status Lift Chair/Recliner use to assist with position changes- sitting to standing May, Active Lasix 80 MG Orally Once a day 2 tablets 24h Active Blood Glucose Monitor System w/Device as directed Active Lisinopril 20 MG Orally Once a day 1 tablet 24h Active Metoprolol Succinate ER 100 MG TAKE ONE TABLET BY MOUTH ONCE DAILY Active Blood Glucose Test - subcutaneously 3 times a day as directed 8h Mar, Active Potassium Chloride Kristen ER 20 meq Orally Once a day TAKE TWO -2 TABLETS BY MOUTH ONCE DAILY 24h 30 days Active Levemir FlexTouch 100 UNIT/ML Subcutaneous Once a day Inject 22 units 24h Active Spironolactone 25 MG Orally Once a day 1 tablet 24h 30 Active ReliOn Pen [place] 31G/8MM USE DIRECTED Active Pravastatin Sodium 10 mg Orally 1 and 3 TAKE ONE TABLET BY MOUTH ONCE DAILY 30 days Active Pen [place] 31G X 8 MM as directed Jan, Active Duloxetine HCl 30 MG Orally Once a day 1 capsule 24h 24 Jul, 2018 30 day(s) Active Accu-Chek FastClix Lancets - subcutaneously 3 times a day 1 lancet to check fsbs 8h Jun, Active RESULTS No Results PROCEDURES No Known [...]
--- OUTSIDE RECORDS SUMMARY | 2018-11-30 17:23 | XMS REPORT ---
Author Author ROSE MARY BUCKNER [facility] Address [address] [place] [address] Care Team Providers Care Durability Engineer Name Role Phone ROSE MARY BUCKNER Unavailable PROBLEMS Type Condition ICD9-CM Code NWB57-SR Code Onset Dates Condition Status SNOMED Code Problem Primary insomnia F51.01 Active 0582717 Problem Constipation, unspecified constipation type K59.00 Active 53655161 Problem Mixed hyperlipidemia E78.2 Active 388589296 Problem Type 2 diabetes mellitus 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, unspecified whether fci insulin use E11.40 Active 28184067 Problem Controlled substance agreement terminated Z91.14 Active 232706452 Problem Major depressive disorder, recurrent, in full remission F33.42 Active 736340494 Problem Stasis dermatitis of both legs I87.2 Active 11329876 Problem BMI 50.0-59.9, adult Z68.43 Active 767670069 Problem Lymphedema I89.0 Active 306763229 Problem Chronic systolic congestive heart failure I50.22 Active 014729770 Problem Panic disorder F41.0 Active 136900546 Problem Chronic pain G89.29 Active 58671134 Problem Cardiomegaly I51.7 Active 6441034 Problem Abnormal liver function test R94.5 Active 477457116 Problem BPH (benign prostatic hyperplasia) N40.0 Active 331501230 Problem Dysthymic disorder F34.1 Active 56796684 Problem HTN (hypertension) I10 Active 78008735 Problem Mild episode of recurrent major depressive disorder F33.0 Active 724759649 Problem Degenerative disc disease at L5-S1 level M51.36 Active 80098890 Problem Type 2 diabetes mellitus with diabetic chronic kidney disease E11.22 Active 65910586 ALLERGIES Substance Reaction Event Type Date Status Prozac Unknown Drug Allergy Jul, Active Wellbutrin Unknown Non Drug Allergy Jul, Active ENCOUNTERS Encounter Location Date Diagnosis [facility] [address] [facility] [id number] [address] Nov, [facility] [id number] [address] Aug, [facility] [id number] [place] [address] 20729- 1837 Aug, [facility] [id number] [place] [address] 44916- 2418 Aug, Onychomycosis B35.1 and Type 2 diabetes mellitus 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, 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 [facility] [id number] [place] [address] 63517- 8809 Aug, [facility] [id number] [place] [address] 33795- 4388 Jul, Type 2 diabetes mellitus with diabetic chronic kidney disease E11.22 ; Mild episode of recurrent major depressive disorder F33.0 and BMI 40.0-44.9, adult Z68.41 [facility] [id number] [place] [address] 71515- 6570 Jul, [facility] [id number] [place] [address] 07496- 5117 Jul, Type 2 diabetes mellitus with diabetic chronic kidney disease E11.22 [facility] [address] [address] Jul, [facility] [id number] [place] [address] 91152- 5949 Jul, Type 2 diabetes mellitus with diabetic chronic kidney disease E11.22 [facility] [id number] [address] 1675 Jul, Chronic systolic congestive heart failure I50.22 and Mixed hyperlipidemia E78.2 [facility] [address] [address] Jun, [facility] [id number] [address] 2267 Jun, Type 2 diabetes mellitus with diabetic chronic kidney disease E11.22 [facility] [id number] [place] [address] 23360- 6275 Jun, Onychomycosis B35.1 ; Self-care deficit for hygiene R46.0 and Nail hypertrophy L60.2 [facility] [id number] [place] [address] 84659- 6746 Jun, Dental examination Z01.20 [facility] [address] 37985- 6205 Jun, Tooth infection K04.7 ; BMI 40.0-44.9, adult Z68.41 and Mouth pain K13.79 [facility] [address] 21755- 3190 Jun, Type 2 diabetes mellitus with diabetic chronic kidney disease E11.22 [facility] [address] 85845- 6536 May, Degenerative disc disease at L5-S1 level M51.36 ; Chronic pain G89.29 and BMI 40.0-44.9, adult Z68.41 [facility] [address] 91332- 0643 May, [facility] [id number] [place] [address] 58235- 8139 May, Type 2 diabetes mellitus with diabetic chronic kidney disease E11.22 [facility] [id number] [place] [address] 94864- 6190 May, [facility] [id number] [place] [address] 03159- 1326 May, Degenerative disc disease at L5-S1 level M51.36 [facility] [id number] [place] [address] 05261- 5322 May, [facility] [id number] [place] [address] 96323- 6871 May, [facility] [address] [place] [address]- 3568 May, [facility] [id number] [place] [address] 86210- 1050 Apr, Type 2 diabetes mellitus with diabetic chronic kidney disease E11.22 ; Chronic pain G89.29 ; Major depressive disorder, recurrent, in full remission F33.42 ; HTN (hypertension) I10 ; Chronic systolic congestive heart failure I50.22 ; Mixed hyperlipidemia E78.2 and BMI 45.0-49.9, adult Z68.42 [facility] [address] [place] [address] 57692- 7312 18 Apr, 2018 Type 2 diabetes mellitus with diabetic chronic kidney disease E11.22 [facility] [id number] [place] [address] 22005- 0510 17 Apr, 2018 Medicare annual wellness visit, [...] vaccine Z28.21 and Encounter for immunization Z23 [facility] [id number] [place] [address] 47831- 3152 Apr, [facility] [id number] [place] [address] 19988- 5742 Mar, Type 2 diabetes mellitus with diabetic chronic kidney disease E11.22 [facility] [id number] [place] [address] 12659- 8736 Mar, Chronic pain G89.29 [facility] [id number] [place] [address] 88423- 4856 February, Chronic pain G89.29 ; Abnormal liver function test R94.5 and Degenerative disc disease at L5-S1 level M51.36 [facility] [id number] [place] [address] 43196- 0398 Jan, [facility] [id number] [place] [address] 27969- 5317 Jan, [facility] [id number] [place] [address] 09584- 5433 Jan, [facility] [id number] [place] [address] 88068- 3594 Jan, Abnormal liver function test R94.5 ; Dysthymic disorder F34.1 and Chronic pain G89.29 [facility] [id number] [place] [address] 32481- 1200 Dec, [facility] [id number] [place] [address] 53270- 2064 Dec, HTN (hypertension) I10 ; BMI 45.0-49.9, adult Z68.42 ; Chronic pain G89.29 ; Primary insomnia F51.01 ; Mixed hyperlipidemia E78.2 ; Dysthymic disorder F34.1 ; Type 2 diabetes mellitus with diabetic chronic kidney disease E11.22 ; Stasis dermatitis of both legs I87.2 and Chronic systolic congestive heart failure I50.22 [facility] [id number] [place] [address] 44965- 3740 Dec, Chronic pain G89.29 [facility] [id number] [place] [address] 45440 -9642 Dec, Lymphedema I89.0 and Chronic systolic congestive heart failure I50.22 [facility] [id number] [place] [address] 10313- 0681 Dec, [facility] [id number] [place] [address] 63647- 1841 Nov, Type 2 diabetes mellitus with diabetic chronic kidney disease E11.22 [facility] [id number] [address]- 5750 12 Nov, 2017 Chronic pain G89.29 and Dysthymic disorder F34.1 [facility] [id number] [place] [address] 51347- 9223 08 Nov, 2017 [facility] [id number] [place] [address] 42081- 4611 Oct, HTN (hypertension) I10 ; Chronic pain G89.29 ; BMI 45.0-49.9 , adult Z68.42 ; Primary insomnia F51.01 ; Mixed hyperlipidemia E78.2 ; Dysthymic disorder F34.1 ; Type 2 diabetes mellitus with diabetic chronic kidney disease E11.22 ; Chronic congestive heart failure, unspecified congestive heart failure type I50.9 ; Acute non-recurrent maxillary sinusitis J01.00 and BMI 50.0-59.9, adult Z68.43 [facility] [id number] [place] [address] 59618- 6048 Oct, HTN (hypertension) I10 and Dysthymic disorder F34.1 [facility] [id number] [place] [address] 70143- 8027 Oct, [facility] [id number] [place] [address] 12859- 3008 Oct, HTN (hypertension) I10 [facility] [id number] [place] [address] 49967- 8499 Oct, Chronic pain G89.29 [facility] [id number] [place] [address] 79567- 8490 Sep, [facility] [id number] [place] [address] 63482- 3493 Sep, HTN (hypertension) I10 ; Chronic pain G89.29 ; BMI 45.0-49.9 , adult Z68.42 ; Primary insomnia F51.01 ; Mixed hyperlipidemia E78.2 ; Dysthymic disorder F34.1 and Type 2 diabetes mellitus with diabetic chronic kidney disease E11.22 [facility] [address] [address]- 0044 Sep, Chronic pain G89.29 [facility] [id number] [place] [address] 40441- 9464 Sep, Acute on chronic heart failure, unspecified heart failure type I50.9 [facility] [id number] [place] [address] 65157- 1042 Sep, Acute on chronic heart failure, unspecified heart failure type I50.9 ; Type 2 diabetes mellitus with diabetic chronic kidney disease E11.22 and BMI 50.0-59.9, adult Z68.43 [facility] [id number] [place] [address] 64887- 5505 Sep, Acute on chronic heart failure, unspecified heart failure type I50.9 ; HTN (hypertension) I10 and Type 2 diabetes mellitus with diabetic chronic kidney disease E11.22 [place] [id number] [place] [address] 07052- 8338 Aug, Acute on chronic heart failure, unspecified heart failure type I50.9 ; HTN (hypertension) I10 ; Type 2 diabetes mellitus with diabetic chronic kidney disease E11.22 ; Cellulitis of right lower extremity L03.115 and BMI 50.0-59.9, adult Z68.43 [facility] [address] [address] Aug, Acute upper respiratory infection, unspecified J06.9 ; Other viral agents as the cause of diseases classified elsewhere B97.89 ; Constipation, unspecified constipation type K59.00 ; BMI 50.0-59.9, adult Z68.43 and BMI 60.0-69.9, adult Z68.44 [facility] [id number] [place] [address] 95515- 3538 Aug, Chronic pain G89.29 [facility] [address] [address]- 1190 Jul, Chronic pain G89.29 [facility] [id number] [address]- 9694 Jul, Chronic pain G89.29 [facility] [id number] [place] [address] 31416- 2510 27 Jun, 2017 Chronic pain G89.29 [facility] [id number] [place] [address] 01450- 9096 Jun, [facility] [address] 08044- 8937 Jun, Chronic pain G89.29 [facility] [id number] [place] [address] 58786- 2092 May, Chronic pain G89.29 and Type 2 diabetes mellitus with diabetic chronic kidney disease E11.22 [facility] [place] [id number] [place] [address] 96160- 0293 16 May, [address] 92877- 0384 May, Chronic pain G89.29 and Anxiety F41.9 [facility] [id number] [place] [address] 83702- 2272 May, Type 2 diabetes mellitus with diabetic chronic kidney disease E11.22 ; Social phobia F40.10 ; Morbid obesity E66.01 ; Chronic pain G89.29 ; HTN (hypertension) I10 ; Degenerative disc disease at L5-S1 level M51.36 ; BPH (benign prostatic hyperplasia) N40.0 ; Pain in right knee M25.561 and 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 [facility] [id number] [place] [address] 01073- 8613 Apr, Anxiety F41.9 [facility] [id number] [place] [address] 19140- 0888 Apr, [facility] [id number] [place] [address] 11401- 2021 Mar, [facility] [id number] [place] [address] 29743- 4381 Mar, Edema, unspecified type R60.9 and Anxiety F41.9 [facility] [id number] [place] [address] 01493- 3108 Mar, Social phobia F40.10 ; Mixed obsessional thoughts and acts F42.2 and Mild episode of recurrent major depressive disorder F33.0 [facility] [address] 89310- 0890 Mar, Degenerative disc disease at L5-S1 level M51.36 [facility] [address] 05142- 7198 Mar, [facility] [address] 57777- 7912 Mar, [facility] [address] 99731- 1858 Mar, [facility] [address] 02913- 9425 February, Morbid obesity E66.01 ; Anxiety F41.9 ; Degenerative disc disease at L5-S1 level M51.36 ; BPH (benign prostatic hyperplasia) N40.0 ; Social phobia F40.10 ; HTN (hypertension) I10 ; Edema, unspecified type R60.9 and Screening cholesterol level Z13.220 [place] [place] [id number] [place] [address] 54639- 5541 February, Social phobia, generalized F40.11 [facility] [id number] [place] [address] 67419- 8134 February, Chronic pain G89.29 [facility] [address] 77861- 8779 February, [facility] [id number] [place] [address] 50326- 9940 Jan, Chronic pain G89.29 [facility] [address] 73073- 2785 Jan, Panic disorder [episodic paroxysmal anxiety] without agoraphobia F41.0 [facility] [id number] [place] [address] 39411- 8573 Dec, Morbid obesity E66.01 ; Anxiety F41.9 ; Chronic pain G89.29 ; HTN (hypertension) I10 ; BPH (benign prostatic hyperplasia) N40.0 ; Generalized edema R60.1 and Cough R05 [facility] [id number] [place] [address] 47919- 5046 14 Nov, 2016 Chronic pain G89.29 [facility] [id number] [place] [address] 48786- 5079 Nov, Social phobia, generalized F40.11 and Mild episode of recurrent major depressive disorder F33.0 [facility] [id number] [place] [address] 99492- 3860 Oct, Chronic pain G89.29 [facility] [address] 81720- 6824 Oct, Social phobia, generalized F40.11 [facility] [id number] [place] [address] 47574- 0075 Sep, [facility] [id number] [place] [address] 00833- 4797 Sep, [facility] [id number] [place] [address] 33970- 1098 Sep, [facility] [id number] [place] [address] 22804- 7955 Sep, [facility] [address] 29429- 1082 Sep, [facility] [id number] [place] [address] 14461- 0595 Sep, Social phobia, generalized F40.11 and Mild episode of recurrent major depressive disorder F33.0 [facility] [id number] [place] [address] 31650- 8773 08 Sep, 2016 [facility] [id number] [place] [address] 93589- 8668 Aug, [facility] [id number] [place] [address] 11793- 4388 Aug, [facility] [id number] [place] [address] 08431- 1438 Aug, Bronchitis J40 [facility] [id number] [place] [address] 18084- 8060 15 Aug, 2016 [facility] [address] 03586- 6484 10 Aug, 2016 Osteoarthritis of knee, unspecified M17.9 [facility] [id number] [place] [address] 23103- 4261 09 Aug, 2016 Morbid obesity E66.01 ; Chronic pain G89.29 ; Anxiety F41.9 ; Social phobia F40.10 ; HTN (hypertension) I10 ; Social phobia, generalized F40.11 ; Acute upper respiratory infection, unspecified J06.9 and Other viral agents as the cause of diseases classified elsewhere B97.89 [facility] [id number] [place] [address] 04874- 5932 Aug, Social phobia, generalized F40.11 and Dysthymic disorder F34.1 [facility] [id number] [place] [address] 23324- 7977 Jul, [facility] [id number] [place] [address] 06322- 2570 Jun, [facility] [id number] [place] [address] 70087- 8915 May, [facility] [id number] [place] [address] 80799- 2064 May, [facility] [id number] [place] [address] 02708- 4865 May, [facility] [address], [place] [address]- 4974 May, [facility] [id number] [place] [address] 28152- 0894 May, [facility] [address], [place] [address]- 5422 May, [facility] [id number] [place] [address] 90204- 6585 May, [facility] [id number] [place] [address] 53186- 9749 Apr, [facility] [id number] [place] [address] 42871- 1164 Apr, Chondromalacia, right knee M94.261 [facility] [id number] [place] [address] 28578- 0325 Apr, Pain in unspecified hip M25.559 [facility] [id number] [place] [address] 37277- 0469 Mar, Social phobia, unspecified F40.10 and Pain in unspecified hip M25.559 [facility] [address], [place] [address]- 1459 February, [facility] [address], [place] [address]- 3699 February, Social phobia F40.10 [facility] [id number] [place] [address] 88814- 0404 February, Morbid obesity E66.01 ; Chronic pain G89.29 ; Social phobia F40.10 ; Pelvic pain in male R10.2 ; HTN (hypertension) I10 ; Degenerative disc disease at L5-S1 level M51.36 ; BPH (benign prostatic hyperplasia) N40.0 and Pain in right knee M25.561 [facility] [id number] [place] [address] 94810- 6163 14 Jan, 2016 [facility] [id number] [place] [address] 80900- 0886 13 Jan, 2016 [facility] [id number] [place] [address] 69825- 5136 12 Jan, 2016 [facility] [id number] [place] [address] 92410- 2018 17 Dec, 2015 [facility] [id number] [place] [address] 36713- 0009 Dec, [facility] [id number] [place] [address] 45872- 6539 Dec, [facility] [id number] [place] [address] 54051 -0580 29 Nov, 2015 Strep pharyngitis J02.0 ; Influenza A J10.1 and Cough R05 [place] [id number] [place] [address] 09509- 6066 Nov, [facility] [id number] [place] [address] 94068- 3003 Nov, [facility] [id number] [place] [address] 20420- 0970 Oct, HTN (hypertension) I10 ; Morbid obesity E66.01 ; Anxiety F41.9 ; Social phobia F40.10 ; Panic disorder F41.0 ; Degenerative disc disease at L5-S1 level M51.36 and Hypercholesterolemia E78.0 [facility] [id number] [place] [address] 99880- 1125 Oct, Panic disorder [episodic paroxysmal anxiety] without agoraphobia F41.0 and Social phobia, generalized F40.11 [facility] [address] [place] [id number] [place] [address] 75381- 9197 Oct, [facility] [id number] [place] [address] 96020- 8932 Sep, [facility] [address], [place] [address]- 0771 Sep, [facility] [id number] [place] [address] 26783- 9774 Sep, [facility] [id number] [place] [address] 19622- 3956 Sep, [facility] [id number] [place] [address] 53330- 2277 Aug, [facility] [id number] [place] [address] 09427- 7075 Aug, [facility] [id number] [place] [address] 56953- 6396 Aug, [facility] [id number] [place] [address] 20321- 7589 Aug, Social phobia F40.10 and Panic disorder F41.0 [facility] [id number] [place] [address] 23842- 2428 Aug, [facility] [id number] [place] [address] 78079- 4243 Aug, [facility] [id number] [place] [address] 60834- 1983 Aug, [facility] [id number] [place] [address] 43027- 5076 Aug, [facility] [id number] [place] [address] 87568- 8843 Jul, [facility] [id number] [place] [address] 35556- 1070 Jul, Morbid obesity E66.01 ; Chronic pain G89.29 ; Anxiety F41.9 ; Social phobia F40.10 ; Panic disorder F41.0 ; Pelvic pain in male R10.2 ; Insomnia G47.00 and HTN (hypertension) I10 [facility] [id number] [place] [address] 14384- 9985 Jul, [facility] [id number] [place] [address] 18637- 8644 Jul, [facility] [id number] [place] [address] [id number]- 0480 16 Jun, 2015 Degenerative disc disease 722.6 [facility] [address] [address]- [address] Jun, Pain in joint, pelvic region and thigh 719.45 ; Morbid obesity 278.01 ; Essential hypertension, benign 401.1 and Constipation 564.00 [facility] [id number] [place] [address] [id number]- [phone] May, [facility] [id number] [place] [address] [phone]- 2575 May, [facility] [address] [address]- [address] May, [facility] [id number] [place] [address] [id number]- 6062 May, [facility] [id number] [place] [address] [phone]- 5038 May, [facility] [id number] [place] [address] 14227- 9146 May, [facility] [id number] [place] [address] 80478- 1744 May, Essential hypertension, benign 401.1 ; Anxiety state, unspecified 300.00 ; Panic disorder without agoraphobia 300.01 ; Social phobia 300.23 ; Morbid obesity 278.01 ; Other chronic pain 338.29 and Insomnia 780.52 [facility] [id number] [place] [address] 24980- 2607 May, Essential hypertension 401.9 [facility] [id number] [place] [address] [phone]- 7817 May, Pain in joint, pelvic region and thigh 719.45 [facility] [id number] [address] May, Essential hypertension, benign 401.1 [facility] [id number] [place] [address] 18866- 2638 May, Panic disorder without agoraphobia 300.01 and Social phobia 300.23 [facility] [id number] [place] [id number]- 7994 May, [facility] [id number] [place] [address] 91385- 5354 May, [facility] [id number] [place] [address] 40275- 0148 Apr, Chronic pain 338.29 [facility] [id number] [place] [address] 55630- 6697 Apr, [facility] [id number] [place] [address] 54777- 3531 Apr, [facility] [id number] [place] [address] 32999- 6278 Apr, [facility] [id number] [place] [address] 54732- 3321 Apr, [facility] [id number] [place] [address] 11483- 5960 Apr, [facility] [id number] [place] [address] 27667- 4730 Apr, [facility] [id number] [place] [address] 31862- 7407 Apr, [facility] [id number] [place] [address] 680575- 1204 Apr, Essential hypertension, benign 401.1 ; Morbid obesity 278.01 ; Anxiety state, unspecified 300.00 ; Panic disorder without agoraphobia 300.01 ; Social phobia 300.23 and Chronic pain 338.29 [facility] [address] [address] Mar, [facility] [id number] [place] [address] 48040- 0635 Mar, [facility] [id number] [address] 8669 Mar, [facility] [id number] [place] [address] 67265- 7319 Mar, [facility] [id number] [place] [address] 14338- 7304 Mar, Social phobia 300.23 and Panic disorder without agoraphobia 300.01 [facility] [id number] [address] 1216 Mar, [facility] [id number] [place] [address] 58073- 1293 February, [facility] [id number] [address] February, Major depression, recurrent 296.30 and No condition on [place] II V71.09 [facility] [id number] [address] February, [facility] [id number] [address]95 February, Panic disorder without agoraphobia 300.01 ; Social phobia 300.23 and Morbid obesity 278.01 [facility] [id number] [address] 2484 Jan, [facility] [id number] [place] [address] 62877- 8235 Jan, [facility] [id number] [address] 5965 Dec, [facility] [id number] [place] [address] 83309- 8009 Dec, [facility] [address] [facility] [id number] [address]- 6622 Dec, [facility] [address] [facility] [id number], [place] [address] 8248 Dec, [facility] [address] [facility] [id number] [address]- 2016 Dec, [facility] [address] [facility] [id number] [address] 3825 Dec, [facility] [address] [facility] [id number] [address] 4183 Dec, [facility] [address] [facility] [id number] [address]- 1818 Dec, [facility] [address] [facility] [id number] [address]- 6385 Dec, [facility] [address] [facility] [id number] [address] 0973 Dec, [facility] [address] [facility] [id number] [address] 9762 Dec, [facility] [address] [facility] [id number] [address]- 5256 Dec, [facility] [address] [facility] [id number] [address]- 6248 Dec, [facility] [address] [facility] [id number] [address] 0498 Dec, [facility] [address] [facility] [id number] [address]- 9352 Dec, [facility] [address] [facility] [id number] [address]- 2989 Dec, IMMUNIZATIONS No Known Immunizations SOCIAL HISTORY Never Assessed REASON FOR VISIT Diabetes, also is wanting his legs looked at [facility] [place] PLAN OF CARE Activity Details Follow Up 3 Months Reason:DM VITAL SIGNS Height 73 in 2018-08-23 Weight 330.4 lbs 2018-08-23 Temperature 97.7 degrees Fahrenheit 2018-08-23 Heart Rate 56 bpm 2018-08-23 Respiratory Rate 20 2018-08-23 BMI 43.59 kg/m2 2018-08-23 Blood pressure systolic 118 mmHg 2018-08-23 Blood pressure diastolic 68 mmHg 2018-08-23 MEDICATIONS Medication Instructions Dosage Frequency Start Date End Date Duration Status Duloxetine HCl 30 MG Orally Once a day 1 capsule 24h Jul, 30 day(s) Active ReliOn Pen [place] 31G/8MM USE DIRECTED Active Lift Chair/Recliner use to assist with position changes- sitting to standing May, Active Pen [place] 31G X 8 MM as directed Jan, Active Spironolactone 25 MG Orally Once a day 1 tablet 24h 30 Active Potassium Chloride Kristen ER 20 meq Orally Once a day TAKE TWO -2 TABLETS BY MOUTH ONCE DAILY 24h 30 days Active Pravastatin Sodium 10 mg Orally 1 and 3 TAKE ONE TABLET BY MOUTH ONCE DAILY 30 days Active Metoprolol Succinate ER 100 MG TAKE ONE TABLET BY MOUTH ONCE DAILY Active Lisinopril 20 MG Orally Once a day 1 tablet 24h Active Lasix 80 MG Orally Once a day 2 tablets 24h Active Blood Glucose Test - subcutaneously 3 times a day as directed 8h Mar, Active Blood Glucose Monitor System w/Device as directed Active Levemir FlexTouch 100 UNIT/ML Subcutaneous Once a day Inject 22 units 24h Active Accu-Chek FastClix Lancets - subcutaneously 3 times a day 1 lancet to check fsbs 8h 12 Jun, 2018 Active RESULTS Name Result Date Reference Range A1C (IN HOUSE) 2018-08-23 A1C IN HOUSE 6.6 4.3 - 5.6 % Previous A1c 11.2 Lot [id number] Exp date 12/2019 PROCEDURES Procedure Date Ordered Result Body Site GLYCATED HEMOGLOBIN TEST Aug 23, 2018 [facility] VISIT ESTABLISHED PATIENT Aug 23, 2018 INSTRUCTIONS MEDICATIONS ADMINISTERED No Known Medications [...]
--- OUTSIDE RECORDS SUMMARY | 2018-11-30 17:24 | XMS REPORT ---
Author Author ROSE MARY BUCKNER [facility] Address [address] [place] [address] Care Team Providers Care Disc Sander Name Role Phone ISA BUCKNERTA Unavailable PROBLEMS Type Condition ICD9-CM Code QPD27-XP Code Onset Dates Condition Status SNOMED Code Problem Type 2 diabetes mellitus with diabetic chronic kidney disease E11.22 Active 52729552 Problem Mixed hyperlipidemia E78.2 Active 360789157 Problem Primary insomnia F51.01 Active 6403991 Problem Major depressive disorder, recurrent, in full remission F33.42 Active 288908352 Problem Lymphedema I89.0 Active 810580128 Problem BMI 50.0-59.9, adult Z68.43 Active 387927694 Problem Constipation, unspecified constipation type K59.00 Active 38984267 Problem Chronic systolic congestive heart failure I50.22 Active 948539207 Problem Stasis dermatitis of both legs I87.2 Active 46251422 Problem Abnormal liver function test R94.5 Active 179791363 Problem Panic disorder F41.0 Active 784198071 Problem Controlled substance agreement terminated Z91.14 Active 578537775 Problem Cardiomegaly I51.7 Active 3826955 Problem Degenerative disc disease at L5-S1 level M51.36 Active 20079075 Problem BPH (benign prostatic hyperplasia) N40.0 Active 027748893 Problem Chronic pain G89.29 Active 07690539 Problem Dysthymic disorder F34.1 Active 19375422 Problem HTN (hypertension) I10 Active 00210292 Problem Mild episode of recurrent major depressive disorder F33.0 Active 792810085 ALLERGIES No Information ENCOUNTERS Encounter Location Date Diagnosis [facility] [address] [facility] [id number] [address] [address] Aug, [facility] [address] [facility] [id number], [place] [address] Jul, [facility] [address] [address] [address] Jul, Type 2 diabetes mellitus with diabetic chronic kidney disease E11.22 [place] [address] 20552- 0207 Jul, Chronic systolic congestive heart failure I50.22 and Mixed hyperlipidemia E78.2 [place] [address] 80540- 2585 Jun, [place] [address] 82784- 3888 Jun, Type 2 diabetes mellitus with diabetic chronic kidney disease E11.22 [place] [address] 61361- 2662 Jun, Onychomycosis B35.1 ; Self-care deficit for hygiene R46.0 and Nail hypertrophy L60.2 [place] [address] 05152- 1396 Jun, Dental examination Z01.20 [place] [address] 27184- 7628 Jun, Tooth infection K04.7 ; BMI 40.0-44.9, adult Z68.41 and Mouth pain K13.79 [place] [address] [place] [id number] [place] [address] 87545- 5612 Jun, Type 2 diabetes mellitus with diabetic chronic kidney disease E11.22 [place] [address] 22556- 8012 May, Degenerative disc disease at L5-S1 level M51.36 ; Chronic pain G89.29 and BMI 40.0-44.9, adult Z68.41 [place] [address] 01520- 8630 May, [place] [address] 28945- 5278 May, Type 2 diabetes mellitus with diabetic chronic kidney disease E11.22 [place] [address], [place] [address] 113[address] May, [place] [address] [place] [id number] [place] [address] 19517- 9375 May, Degenerative disc disease at L5-S1 level M51.36 [place] [address] [place] [id number] [place] [address] 83965- 7650 May, [place] [address] [place] [id number] [place] [address] 18678- 2672 May, [place] [address] [place] [id number] [place] [address] 24906- 4885 May, [place] [address] [place] [id number] [place] [address] 09252- 2457 Apr, Type 2 diabetes mellitus with diabetic chronic kidney disease E11.22 ; Chronic pain G89.29 ; Major depressive disorder, recurrent, in full remission F33.42 ; HTN (hypertension) I10 ; Chronic systolic congestive heart failure I50.22 ; Mixed hyperlipidemia E78.2 and BMI 45.0-49.9, adult Z68.42 [place] [address] [place] [address] 30003- 9508 Apr, Type 2 diabetes mellitus with diabetic chronic kidney disease E11.22 [place] [address], [place] [address] 17 Apr, 2018 Medicare annual wellness visit, [...] vaccine Z28.21 and Encounter for immunization Z23 [place] [address] [place] [address] 71383- 8117 Apr, [place] [address] [place] [id number] [place] [address] 12877- 3510 Mar, Type 2 diabetes mellitus with diabetic chronic kidney disease E11.22 [place] [address] [place] [id number] [place] [address] 85469- 4619 Mar, Chronic pain G89.29 [place] [address] 15292- 4981 February, Chronic pain G89.29 ; Abnormal liver function test R94.5 and Degenerative disc disease at L5-S1 level M51.36 [place] [address] [place] [id number] [place] [address] 95267- 5422 Jan, [place] [address] [place] [id number] [place] [address] 39941- 4182 Jan, [place] [address] [place] [id number] [place] [address] 38802- 2271 Jan, [place] [id number] [place] [address] 41674- 5836 Jan, Abnormal liver function test R94.5 ; Dysthymic disorder F34.1 and Chronic pain G89.29 [place] [address] [place] [id number] [place] [address] 16819- 0405 Dec, [place] [id number] [place] [address] 61069- 9302 Dec, HTN (hypertension) I10 ; BMI 45.0-49.9, adult Z68.42 ; Chronic pain G89.29 ; Primary insomnia F51.01 ; Mixed hyperlipidemia E78.2 ; Dysthymic disorder F34.1 ; Type 2 diabetes mellitus with diabetic chronic kidney disease E11.22 ; Stasis dermatitis of both legs I87.2 and Chronic systolic congestive heart failure I50.22 [place] [id number] [place] [address] 15505- 7912 Dec, Chronic pain G89.29 [facility] [address], [place] [address] Dec, Lymphedema I89.0 and Chronic systolic congestive heart failure I50.22 [facility] [address], [place] [address] 2853 Dec, [place] [address] [place] [id number] [place] [address] 46300- 7850 Nov, Type 2 diabetes mellitus with diabetic chronic kidney disease E11.22 [place] [address] [place] [id number] [place] [address] 37980- 2518 Nov, Chronic pain G89.29 and Dysthymic disorder F34.1 [place] [address] [place] [id number] [place] [address] 93381- 8819 Nov, [place] [address] [place] [id number] [place] [address] 24435- 0408 Oct, HTN (hypertension) I10 ; Chronic pain G89.29 ; BMI 45.0-49.9 , adult Z68.42 ; Primary insomnia F51.01 ; Mixed hyperlipidemia E78.2 ; Dysthymic disorder F34.1 ; Type 2 diabetes mellitus with diabetic chronic kidney disease E11.22 ; Chronic congestive heart failure, unspecified congestive heart failure type I50.9 ; Acute non-recurrent maxillary sinusitis J01.00 and BMI 50.0-59.9, adult Z68.43 [place] [address], [place] [address] 5092 Oct, HTN (hypertension) I10 and Dysthymic disorder F34.1 [place] [address] [place] [id number] [place] [address] 67977- 3332 Oct, [place] [address] [place] [id number] [place] [address] 07376- 9282 Oct, HTN (hypertension) I10 [place] [address] [place] [id number] [place] [address] 58013- 9971 Oct, Chronic pain G89.29 [place] [address], [place] [address]- 4703 Sep, [place] [address] [place] [address] 70443- 5781 Sep, HTN (hypertension) I10 ; Chronic pain G89.29 ; BMI 45.0-49.9 , adult Z68.42 ; Primary insomnia F51.01 ; Mixed hyperlipidemia E78.2 ; Dysthymic disorder F34.1 and Type 2 diabetes mellitus with diabetic chronic kidney disease E11.22 [place] [address], [place] [address]- 1613 Sep, Chronic pain G89.29 [place] [address] [place] [id number] [place] [address] 46989- 6824 Sep, Acute on chronic heart failure, unspecified heart failure type I50.9 [place] [address] [place] [address] 18651- 8019 Sep, Acute on chronic heart failure, unspecified heart failure type I50.9 ; Type 2 diabetes mellitus with diabetic chronic kidney disease E11.22 and BMI 50.0-59.9, adult Z68.43 [place] [address], [place] [address]- 9439 Sep, Acute on chronic heart failure, unspecified heart failure type I50.9 ; HTN (hypertension) I10 and Type 2 diabetes mellitus with diabetic chronic kidney disease E11.22 [place] [address], [place] [address]- 0695 Aug, Acute on chronic heart failure, unspecified heart failure type I50.9 ; HTN (hypertension) I10 ; Type 2 diabetes mellitus with diabetic chronic kidney disease E11.22 ; Cellulitis of right lower extremity L03.115 and BMI 50.0-59.9, adult Z68.43 [facility] [address], [place] [address] Aug, Acute upper respiratory infection, unspecified J06.9 ; Other viral agents as the cause of diseases classified elsewhere B97.89 ; Constipation, unspecified constipation type K59.00 ; BMI 50.0-59.9, adult Z68.43 and BMI 60.0-69.9, adult Z68.44 [place] [id number] [place] [address] 01169- 5530 Aug, Chronic pain G89.29 [place] [address] 42907- 6326 Jul, Chronic pain G89.[address] 33664- 7177 Jul, Chronic pain G89.29 [place] [address] [place] [id number] [place] [address] 45696- 1617 Jun, Chronic pain G89.[address] 68023- 4046 Jun, [address] 17930- 0657 Jun, Chronic pain G89.29 [place] [id number] [place] [address] 58282- 7491 May, Chronic pain G89.29 and Type 2 diabetes mellitus with diabetic chronic kidney disease E11.22 [place] [id number] [place] [address] 76667- 6309 16 May, [address] 43546- 9750 11 May, 2017 Chronic pain G89.29 and Anxiety F41.[address] 27066- 6035 10 May, 2017 Type 2 diabetes mellitus with diabetic chronic kidney disease E11.22 ; Social phobia F40.10 ; Morbid obesity E66.01 ; Chronic pain G89.29 ; HTN (hypertension) I10 ; Degenerative disc disease at L5-S1 level M51.36 ; BPH (benign prostatic hyperplasia) N40.0 ; Pain in right knee M25.561 and 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 [place] [address] [place] [id number] [place] [address] 13777- 0796 Apr, Anxiety F41.9 [place] [address] [place] [id number] [place] [address] 53183- 4208 Apr, [place] [address] 41883- 1891 Mar, [place] [address] 90807- 1097 Mar, Edema, unspecified type R60.9 and Anxiety F41.9 [place] [address] 95774- 8329 Mar, Social phobia F40.10 ; Mixed obsessional thoughts and acts F42.2 and Mild episode of recurrent major depressive disorder F33.0 [place] [address] [place] [id number] [place] [address] 26810- 9154 Mar, Degenerative disc disease at L5-S1 level M51.[address] 01314- 8135 Mar, [place] [address] [place] [id number] [place] [address] 02340- 1265 Mar, [place] [address] [place] [id number] [place] [address] 98314- 6022 Mar, [place] [id number] [place] [address] 92371- 8550 February, Morbid obesity E66.01 ; Anxiety F41.9 ; Degenerative disc disease at L5-S1 level M51.36 ; BPH (benign prostatic hyperplasia) N40.0 ; Social phobia F40.10 ; HTN (hypertension) I10 ; Edema, unspecified type R60.9 and Screening cholesterol level Z13.[address] 44269- 2629 February, Social phobia, generalized F40.11 [facility] [address] [place] [id number] [place] [address] 35174- 1337 February, Chronic pain G89.29 [facility] [address] [place] [id number] [place] [address] 06574- 6187 February, [facility] [address] [place] [id number] [place] [address] 97713- 0717 Jan, Chronic pain G89.29 [facility] [address] [place] [id number] [place] [address] 50924- 4251 Jan, Panic disorder [episodic paroxysmal anxiety] without agoraphobia F41.0 [place] [address] [place] [id number] [place] [address] 01352- 3586 Dec, Morbid obesity E66.01 ; Anxiety F41.9 ; Chronic pain G89.29 ; HTN (hypertension) I10 ; BPH (benign prostatic hyperplasia) N40.0 ; Generalized edema R60.1 and Cough R05 [place] [address] [place] [id number] [place] [address] 81339- 9493 14 Nov, 2016 Chronic pain G89.29 [place] [address] [place] [id number] [place] [address] 30015- 9502 Nov, Social phobia, generalized F40.11 and Mild episode of recurrent major depressive disorder F33.0 [place] [address] [place] [id number] [place] [address] 90529- 9879 Oct, Chronic pain G89.29 [facility] [address] [place] [id number] [place] [address] 31815- 3253 Oct, Social phobia, generalized F40.11 [place] [address] [place] [id number] [place] [address] 00511- 3849 Sep, [facility] [address] [place] [id number] [place] [address] 84844- 2992 Sep, [place] [address] [place] [id number] [place] [address] 69925- 7154 Sep, [facility] [address] [place] [id number] [place] [address] 82161- 5916 Sep, [facility] [address] [place] [id number] [place] [address] 35638- 9692 Sep, [facility] [address] 72370- 5827 Sep, Social phobia, generalized F40.11 and Mild episode of recurrent major depressive disorder F33.0 [facility] [address] [place] [id number] [place] [address] 84001- 0255 Sep, [place] [address] [place] [id number] [place] [address] 04289- 6938 29 Aug, 2016 [place] [address] [place] [id number] [place] [address] 42048- 6068 Aug, [facility] [address] [place] [id number] [place] [address] 58264- 5563 17 Aug, 2016 Bronchitis J40 [place] [address] [place] [id number] [place] [address] 34237- 4671 15 Aug, 2016 [facility] [address] [place] [id number] [place] [address] 53097- 8211 10 Aug, 2016 Osteoarthritis of knee, unspecified M17.9 [place] [address] [place] [id number] [place] [address] 89582- 3974 09 Aug, 2016 Morbid obesity E66.01 ; Chronic pain G89.29 ; Anxiety F41.9 ; Social phobia F40.10 ; HTN (hypertension) I10 ; Social phobia, generalized F40.11 ; Acute upper respiratory infection, unspecified J06.9 and Other viral agents as the cause of diseases classified elsewhere B97.89 [place] [address] [place] [address] 12887- 3440 08 Aug, 2016 Social phobia, generalized F40.11 and Dysthymic disorder F34.1 [place] [address] [facility] [id number] [place] [address]- 1858 Jul, [facility] [address] [facility] [id number] [place] [address]- 0240 Jun, [facility] [address] [facility] [id number] [place] [address]- 0110 May, [facility] [address] [facility] [id number] [place] [address]- 9333 May, [facility] [address] [facility] [id number] [place] [address]- 1835 May, [facility] [address] [facility] [id number] [place] [address], [place] [address]- 9837 May, [facility] [address] [place] [id number] [address]- 8289 May, [facility] [address] [place] [id number] [address]- 8959 May, [facility] [address] [facility] [id number] [place] [address]- 9120 May, [facility] [address] [place] [id number], [place] [address]- 1571 Apr, [facility] [address], [place] [address]- 5492 Apr, Chondromalacia, right knee M94.261 [facility] [address] [facility] [id number] [address]- 8397 Apr, Pain in unspecified hip M25.559 [facility] [address] [place] [id number], [place] [address]- 7710 Mar, Social phobia, unspecified F40.10 and Pain in unspecified hip M25.559 [facility] [address] [place] [id number], [place] [address]- 4625 February, [facility] [address] [place] [id number] [place] [address] 98259- 0927 February, Social phobia F40.10 [place] [address] 01796- 0709 February, Morbid obesity E66.01 ; Chronic pain G89.29 ; Social phobia F40.10 ; Pelvic pain in male R10.2 ; HTN (hypertension) I10 ; Degenerative disc disease at L5-S1 level M51.36 ; BPH (benign prostatic hyperplasia) N40.0 and Pain in right knee M25.561 [facility] [address] 18233- 8247 14 Jan, 2016 [place] [address] 38409- 1974 13 Jan, 2016 [place] [address] 59498- 7676 Jan, [facility] [address] 92516- 5789 Dec, [facility] [address] 14728- 2578 Dec, [place] [address] 21909- 7428 Dec, [facility] [address] [place] [id number] [place] [address] 25337 -1491 Nov, Strep pharyngitis J02.0 ; Influenza A J10.1 and Cough R05 [facility] [address] [place] [id number] [place] [address] 48817- 0189 Nov, [facility] [address] 19187- 3662 Nov, [facility] [address] [place] [id number] [place] [address] 13996- 4281 Oct, HTN (hypertension) I10 ; Morbid obesity E66.01 ; Anxiety F41.9 ; Social phobia F40.10 ; Panic disorder F41.0 ; Degenerative disc disease at L5-S1 level M51.36 and Hypercholesterolemia E78.0 [facility] [address] [place] [id number] [place] [address] 40123- 2941 Oct, Panic disorder [episodic paroxysmal anxiety] without agoraphobia F41.0 and Social phobia, generalized F40.11 [facility] [address] [place] [id number] [place] [address] 93851- 7523 Oct, [facility] [address] 89645- 7507 Sep, [facility] [address] 71421- 4285 Sep, [facility] [address] [place] [id number] [place] [address] 90126- 0501 Sep, [facility] [address] 27944- 1047 Sep, [facility] [address] [place] [id number] [place] [address] 60982- 3235 Aug, [facility] [address] [place] [id number] [place] [address] 80121- 5884 Aug, [facility] [address] [place] [id number] [place] [address] 49540- 3472 Aug, [facility] [address] [place] [id number] [place] [address] 45631- 0045 Aug, Social phobia F40.10 and Panic disorder F41.0 [facility] [address] [place] [id number] [place] [address] 68183- 3276 Aug, [facility] [address] [place] [id number] [place] [address] 78092- 3756 Aug, [facility] [address] [place] [id number] [place] [address] 81346- 8115 Aug, [facility] [address] [place] [id number] [place] [address] 91200- 5915 Aug, [facility] [id number] [place] [address] 46860- 8361 Jul, [facility] [address] [place] [id number] [place] [address] 30074- 9207 Jul, Morbid obesity E66.01 ; Chronic pain G89.29 ; Anxiety F41.9 ; Social phobia F40.10 ; Panic disorder F41.0 ; Pelvic pain in male R10.2 ; Insomnia G47.00 and HTN (hypertension) I10 [facility] [address] [place] [id number] [place] [address] 30865- [id number] Jul, [facility] [id number] [place] [address] [id number]- [id number] Jul, [facility] [id number] [place] [address] [id number]- [id number] Jun, Degenerative disc disease 722.6 [facility] [id number] [place] [address] 43783- 3045 Jun, Pain in joint, pelvic region and thigh 719.45 ; Morbid obesity 278.01 ; Essential hypertension, benign 401.1 and Constipation 564.00 [facility] [id number] [place] [address] 31533- 9533 May, [facility] [id number] [place] [address] 44891- 5048 May, [facility] [id number] [place] [address] [id number]- [id number] May, [facility] [id number] [place] [address] 03015- 3520 May, [facility] [id number] [place] [address] 49775- 2802 May, [facility] [id number] [place] [address] [id number]- [id number] May, [facility] [id number] [address] May, Essential hypertension, benign 401.1 ; Anxiety state, unspecified 300.00 ; Panic disorder without agoraphobia 300.01 ; Social phobia 300.23 ; Morbid obesity 278.01 ; Other chronic pain 338.29 and Insomnia 780.52 [facility] [id number] [place] [address] 82901- 7788 May, Essential hypertension 401.9 [facility] [id number] [place] [address] [id number]- 9935 May, Pain in joint, pelvic region and thigh 719.45 [facility] [id number] [place] [address] 14664- 4763 May, Essential hypertension, benign 401.1 [facility] [id number] [place] [address] 04824- 0825 May, Panic disorder without agoraphobia 300.01 and Social phobia 300.23 [facility] [id number] [place] [address] 08189- 9687 May, [facility] [facility] [id number] [place] [address] 76654- 5017 May, [facility] [id number] [place] [address] 71510- 8620 Apr, Chronic pain 338.29 [facility] [id number] [place] [address] 12041- 2558 Apr, [facility] [id number] [place] [address] 57357- 0566 Apr, [facility] [id number] [place] [address] 70928- 0031 Apr, [facility] [id number] [place] [address] 82748- 9094 Apr, [facility] [id number] [place] [address] 48232- 2905 Apr, [facility] [address] [address] Apr, [facility] [id number] [address] 29[address] Apr, [facility] [address] [address] Apr, Essential hypertension, benign 401.1 ; Morbid obesity 278.01 ; Anxiety state, unspecified 300.00 ; Panic disorder without agoraphobia 300.01 ; Social phobia 300.23 and Chronic pain 338.29 [facility] [id number] [place] [address] 46047- 0133 Mar, [facility] [id number] [place] [address] 16710- 1243 Mar, [facility] [id number] [place] [address] 30595- 4063 Mar, [facility] [address] [address] 6866 Mar, [facility] [id number] [place] [address] 48111- 6053 Mar, Social phobia 300.23 and Panic disorder without agoraphobia 300.01 [facility] [address] [address] 6141 Mar, [facility] [id number] [address] February, [facility] [address] [address] February, Major depression, recurrent 296.30 and No condition on Porter II V71.09 [facility] [address] [place] [address] 3151 February, [facility] [id number] [place] [address] 55635- 8475 February, Panic disorder without agoraphobia 300.01 ; Social phobia 300.23 and Morbid obesity 278.01 [facility] [address] [address] 14 Jan, 2015 [facility] [id number] [address] Jan, [facility] [id number] [place] [address] 27286- 3875 Dec, [facility] [id number] [place] [address] 53255- 4382 Dec, [facility] [id number] [place] [address] 19005- 3184 Dec, [facility] [id number] [address] 9872 Dec, [facility] [id number] [place] [address] 31719- 4950 Dec, [facility] [address], [place] [address]- 6098 Dec, [facility] [id number] [place] [address] 1843 Dec, [facility] [address] [address]- 7969 Dec, [facility] [address] [place] [address]- 8681 Dec, [facility] [id number] [address] 1998 Dec, [facility] [id number] [address]293 Dec, [facility] [address] 8[address] Dec, [facility] [id number] [address] Dec, [facility] [address] [facility] [id number] [place] [address]- 7153 Dec, [facility] [address] [facility] [id number] [place] [address]- 2143 Dec, [facility] [address] [facility] [id number] [place] [address]- 0628 Dec, IMMUNIZATIONS No Known Immunizations SOCIAL HISTORY Never Assessed REASON FOR VISIT CCM note PLAN OF CARE VITAL SIGNS MEDICATIONS Unknown [...]
--- OUTSIDE RECORDS SUMMARY | 2018-11-30 17:24 | XMS REPORT ---
Author Author YONAS BELLE [facility] Address [address] [place] [address] Care Team Providers Care Dough Scaler And Mixer Name Role Phone YONAS BELLE Unavailable PROBLEMS Type Condition ICD9-CM Code TDP60-CL Code Onset Dates Condition Status SNOMED Code Problem Type 2 diabetes mellitus with diabetic chronic kidney disease E11.22 Active 71399125 Problem Mixed hyperlipidemia E78.2 Active 742928655 Problem Primary insomnia F51.01 Active 1675175 Problem Major depressive disorder, recurrent, in full remission F33.42 Active 927133686 Problem Lymphedema I89.0 Active 630771108 Problem BMI 50.0-59.9, adult Z68.43 Active 638008482 Problem Constipation, unspecified constipation type K59.00 Active 43609855 Problem Chronic systolic congestive heart failure I50.22 Active 245366759 Problem Stasis dermatitis of both legs I87.2 Active 11260166 Problem Abnormal liver function test R94.5 Active 554685969 Problem Panic disorder F41.0 Active 874203182 Problem Controlled substance agreement terminated Z91.14 Active 701168589 Problem Cardiomegaly I51.7 Active 5486032 Problem Degenerative disc disease at L5-S1 level M51.36 Active 31548378 Problem BPH (benign prostatic hyperplasia) N40.0 Active 182163316 Problem Chronic pain G89.29 Active 92808643 Problem Dysthymic disorder F34.1 Active 07216632 Problem HTN (hypertension) I10 Active 50319948 Problem Mild episode of recurrent major depressive disorder F33.0 Active 449715935 ALLERGIES No Information ENCOUNTERS Encounter Location Date Diagnosis [facility] [address] [facility] [id number] [address] Aug, [facility] [address] [facility] [id number], [place] [address] May, [facility] [address] [address] May, [facility] [address] [address] May, Type 2 diabetes mellitus with diabetic chronic kidney disease E11.22 [facility] [address], [place] [address] 66[address] May, [facility] [address] [place] [id number] [place] [address] 25541- 4287 May, Degenerative disc disease at L5-S1 level M51.36 [facility] [address] [place] [id number] [place] [address] 15196- 8096 May, [facility] [id number] [place] [address] 38573- 4395 May, [facility] [address] [place] [id number] [place] [address] 32879- 9632 May, [facility] [address], [place] [address] 4062 Apr, Type 2 diabetes mellitus with diabetic chronic kidney disease E11.22 ; Chronic pain G89.29 ; Major depressive disorder, recurrent, in full remission F33.42 ; HTN (hypertension) I10 ; Chronic systolic congestive heart failure I50.22 ; Mixed hyperlipidemia E78.2 and BMI 45.0-49.9, adult Z68.42 [facility] [address], [place] [address] 5757 Apr, Type 2 diabetes mellitus with diabetic chronic kidney disease E11.22 [facility] [address] [place] [id number] [address] 1676 Apr, Medicare annual wellness visit, initial Z00.00 [...] vaccine Z28.21 and Encounter for immunization Z23 [facility] [address] [place] [id number] [place] [address] 12298- 6977 Apr, [facility] [address] [place] [id number] [place] [address] 58869- 1916 Mar, Type 2 diabetes mellitus with diabetic chronic kidney disease E11.22 [facility] [address] [place] [id number] [place] [address] 09853- 2299 Mar, Chronic pain G89.29 [facility] [address] [place] [id number] [place] [address] 30142- 6830 February, Chronic pain G89.29 ; Abnormal liver function test R94.5 and Degenerative disc disease at L5-S1 level M51.36 [facility] [address] [place] [id number] [place] [address] 43178- 4535 Jan, [facility] [address] [place] [id number] [place] [address] 81166- 5053 Jan, [facility] [address] [place] [id number] [place] [address] 27156- 7605 Jan, [facility] [address] [place] [id number] [place] [address] 11735- 1469 Jan, Abnormal liver function test R94.5 ; Dysthymic disorder F34.1 and Chronic pain G89.29 [facility] [address] [place] [id number] [place] [address] 41674- 8143 Dec, [facility] [address] [place] [id number] [place] [address] 19471- 8492 Dec, HTN (hypertension) I10 ; BMI 45.0-49.9, adult Z68.42 ; Chronic pain G89.29 ; Primary insomnia F51.01 ; Mixed hyperlipidemia E78.2 ; Dysthymic disorder F34.1 ; Type 2 diabetes mellitus with diabetic chronic kidney disease E11.22 ; Stasis dermatitis of both legs I87.2 and Chronic systolic congestive heart failure I50.22 [facility] [id number] [place] [address] 19204- 1390 Dec, Chronic pain G89.29 [facility] [id number] [place] [address] 35771 -8986 04 Dec, 2017 Lymphedema I89.0 and Chronic systolic congestive heart failure I50.22 [facility] [address] [place] [id number] [place] [address] 23740- 6627 Dec, [facility] [address] [address] [id number] [place] [address] 38101- 9909 Nov, Type 2 diabetes mellitus with diabetic chronic kidney disease E11.22 [facility] [address] [place] [id number] [place] [address] 39288- 6428 Nov, Chronic pain G89.29 and Dysthymic disorder F34.1 [facility] [address] [address] [id number] [place] [address] 17110- 2760 Nov, [facility] [address] [address] [id number] [place] [address] 25046- 2847 Oct, HTN (hypertension) I10 ; Chronic pain G89.29 ; BMI 45.0-49.9 , adult Z68.42 ; Primary insomnia F51.01 ; Mixed hyperlipidemia E78.2 ; Dysthymic disorder F34.1 ; Type 2 diabetes mellitus with diabetic chronic kidney disease E11.22 ; Chronic congestive heart failure, unspecified congestive heart failure type I50.9 ; Acute non-recurrent maxillary sinusitis J01.00 and BMI 50.0-59.9, adult Z68.43 [facility] [id number] [place] [address] 93558- 6780 Oct, HTN (hypertension) I10 and Dysthymic disorder F34.1 [facility] [address] [place] [id number] [place] [address] 38706- 5847 Oct, [facility] [address], [place] [address] 7395 Oct, HTN (hypertension) I10 [facility] [address], [place] [address] 7597 Oct, Chronic pain G89.29 [facility] [address], [place] [address]- 2326 Sep, [facility] [address] [place] [id number] [place] [address] 37611- 8781 Sep, HTN (hypertension) I10 ; Chronic pain G89.29 ; BMI 45.0-49.9 , adult Z68.42 ; Primary insomnia F51.01 ; Mixed hyperlipidemia E78.2 ; Dysthymic disorder F34.1 and Type 2 diabetes mellitus with diabetic chronic kidney disease E11.22 [facility] [address], [place] [address]- 0029 Sep, Chronic pain G89.29 [facility] [address], [place] [address]- 2628 Sep, Acute on chronic heart failure, unspecified heart failure type I50.9 [facility] [address], [place] [address]- 9192 Sep, Acute on chronic heart failure, unspecified heart failure type I50.9 ; Type 2 diabetes mellitus with diabetic chronic kidney disease E11.22 and BMI 50.0-59.9, adult Z68.43 [facility] [address], [place] [address] 3416 Sep, Acute on chronic heart failure, unspecified heart failure type I50.9 ; HTN (hypertension) I10 and Type 2 diabetes mellitus with diabetic chronic kidney disease E11.22 [facility] [place] [address], [place] [address]- 2516 Aug, Acute on chronic heart failure, unspecified heart failure type I50.9 ; HTN (hypertension) I10 ; Type 2 diabetes mellitus with diabetic chronic kidney disease E11.22 ; Cellulitis of right lower extremity L03.115 and BMI 50.0-59.9, adult Z68.43 [facility] [address] [id number] [place] [address] 48118 -7151 Aug, Acute upper respiratory infection, unspecified J06.9 ; Other viral agents as the cause of diseases classified elsewhere B97.89 ; Constipation, unspecified constipation type K59.00 ; BMI 50.0-59.9, adult Z68.43 and BMI 60.0-69.9, adult Z68.44 [facility] [address] [place] [id number] [place] [address] 27144- 9020 Aug, Chronic pain G89.29 [facility] [address] 76629- 7009 Jul, Chronic pain G89.29 [facility] [address] 48555- 3272 Jul, Chronic pain G89.29 [facility] [address] 90485- 5395 Jun, Chronic pain G89.29 [facility] [place] [address] [place] [id number] [place] [address] 56259- 0305 Jun, [facility] [address] [place] [id number] [place] [address] 37719- 7647 Jun, Chronic pain G89.29 [facility] [address] [place] [id number] [place] [address] 41848- 4679 May, Chronic pain G89.29 and Type 2 diabetes mellitus with diabetic chronic kidney disease E11.22 [facility] [address] 72062- 5090 16 May, 2017 [facility] [address] [place] [id number] [place] [address] 00081- 4219 May, Chronic pain G89.29 and Anxiety F41.9 [facility] [address] 66403- 4316 May, Type 2 diabetes mellitus with diabetic chronic kidney disease E11.22 ; Social phobia F40.10 ; Morbid obesity E66.01 ; Chronic pain G89.29 ; HTN (hypertension) I10 ; Degenerative disc disease at L5-S1 level M51.36 ; BPH (benign prostatic hyperplasia) N40.0 ; Pain in right knee M25.561 and 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 [facility] [address] [place] [id number] [place] [address] 47381- 0779 Apr, Anxiety F41.9 [facility] [address] [place] [id number] [place] [address] 64711- 9207 Apr, [facility] [address] 44059- 9377 Mar, [facility] [address] [place] [id number] [place] [address] 90660- 7647 Mar, Edema, unspecified type R60.9 and Anxiety F41.9 [facility] [address] [place] [id number] [place] [address] 13945- 7355 Mar, Social phobia F40.10 ; Mixed obsessional thoughts and acts F42.2 and Mild episode of recurrent major depressive disorder F33.0 [facility] [address] [place] [id number] [place] [address] 42594- 7802 Mar, Degenerative disc disease at L5-S1 level M51.36 [facility] [address] [place] [id number] [place] [address] 25599- 1400 Mar, [facility] [address] [place] [id number] [place] [address] 41682- 6834 Mar, [facility] [address] [place] [id number] [place] [address] 05595- 0050 Mar, [facility] [address] [place] [id number] [place] [address] 87774- 3534 February, Morbid obesity E66.01 ; Anxiety F41.9 ; Degenerative disc disease at L5-S1 level M51.36 ; BPH (benign prostatic hyperplasia) N40.0 ; Social phobia F40.10 ; HTN (hypertension) I10 ; Edema, unspecified type R60.9 and Screening cholesterol level Z13.220 [facility] [address] 59172- 0515 February, Social phobia, generalized F40.11 [facility] [address] 70437- 3228 February, Chronic pain G89.29 [facility] [address] 37874- 7557 February, [facility] [address] 20346- 6868 Jan, Chronic pain G89.29 [facility] [address] 63529- 1572 Jan, Panic disorder [episodic paroxysmal anxiety] without agoraphobia F41.0 [facility] [address] 38683- 4034 Dec, Morbid obesity E66.01 ; Anxiety F41.9 ; Chronic pain G89.29 ; HTN (hypertension) I10 ; BPH (benign prostatic hyperplasia) N40.0 ; Generalized edema R60.1 and Cough R05 [place] [id number] [place] [address] 00176- 3205 Nov, Chronic pain G89.29 [facility] [address] 53769- 0605 Nov, Social phobia, generalized F40.11 and Mild episode of recurrent major depressive disorder F33.0 [facility] [address] 83821- 3021 Oct, Chronic pain G89.29 [facility] [address] [place] [id number] [place] [address] 48298- 4374 Oct, Social phobia, generalized F40.11 [facility] [address], [place] [address]- 4202 Sep, [facility] [id number] [place] [address] 91357- 7228 Sep, [facility] [id number] [place] [address] 28495- 7667 Sep, [facility] [id number] [place] [address] 85623- 6808 Sep, [facility] [id number] [place] [address] 91782- 5498 Sep, [facility] [id number] [place] [address] 49621- 5215 Sep, Social phobia, generalized F40.11 and Mild episode of recurrent major depressive disorder F33.0 [facility] [address] [place] [id number] [place] [address] 41128- 2843 Sep, [facility] [id number] [place] [address] 61576- 9075 Aug, [facility] [id number] [place] [address] 68601- 6169 Aug, [facility] [address], [place] [address]- 9594 17 Aug, 2016 Bronchitis J40 [facility] [address] [place] [id number] [place] [address] 31692- 8626 15 Aug, 2016 [facility] [address] [place] [address] 12273- 3718 10 Aug, 2016 Osteoarthritis of knee, unspecified M17.9 [facility] [address] [place] [address] 10526- 2484 09 Aug, 2016 Morbid obesity E66.01 ; Chronic pain G89.29 ; Anxiety F41.9 ; Social phobia F40.10 ; HTN (hypertension) I10 ; Social phobia, generalized F40.11 ; Acute upper respiratory infection, unspecified J06.9 and Other viral agents as the cause of diseases classified elsewhere B97.89 [facility] [address] [place] [id number] [place] [address] 05208- 8423 Aug, Social phobia, generalized F40.11 and Dysthymic disorder F34.1 [facility] [address] [place] [id number] [place] [address] 55901- 6816 Jul, [facility] [address] [place] [id number] [place] [address] 00236- 8913 Jun, [facility] [address] [id number] [place] [address] 82146- 2313 May, [facility] [address] [place] [id number] [place] [address] 48916- 3779 May, [facility] [id number] [place] [address] 84818- 1380 May, [facility] [address] [id number] [place] [address] 88971- 4773 May, [facility] [address] [id number] [place] [address] 29419- 5653 May, [facility] [address] [id number] [place] [address] 42478- 8360 May, [facility] [address], [place] [address]- 6673 May, [facility] [address] [id number] [place] [address] 48258- 5977 Apr, [facility] [address] [place] [address] 81548- 2476 Apr, Chondromalacia, right knee M94.261 [facility] [address] [id number] [place] [address] 44395- 1258 Apr, Pain in unspecified hip M25.559 [facility] [address] [id number] [place] [address] 11641- 6009 Mar, Social phobia, unspecified F40.10 and Pain in unspecified hip M25.559 [facility] [address] 72551- 4696 February, [facility] [address] 16734- 0089 February, Social phobia F40.10 [facility] [address] 35659- 3625 February, Morbid obesity E66.01 ; Chronic pain G89.29 ; Social phobia F40.10 ; Pelvic pain in male R10.2 ; HTN (hypertension) I10 ; Degenerative disc disease at L5-S1 level M51.36 ; BPH (benign prostatic hyperplasia) N40.0 and Pain in right knee M25.561 [place] [address] 08378- 4674 14 Jan, 2016 [place] [address] 62170- 3278 Jan, [facility] [address] 45096- 9506 Jan, [facility] [address] 41044- 1371 Dec, [facility] [address] [place] [id number] [place] [address] 12273- 5178 Dec, [facility] [address] 95296- 9936 Dec, [facility] [address] [id number] [place] [address] 20955 -7452 Nov, Strep pharyngitis J02.0 ; Influenza A J10.1 and Cough R05 [facility] [address] [place] [id number] [place] [address] 80586- 6566 Nov, [facility] [address] 26344- 5277 Nov, [facility] [address] [address] [id number] [place] [address] 64725- 5128 Oct, HTN (hypertension) I10 ; Morbid obesity E66.01 ; Anxiety F41.9 ; Social phobia F40.10 ; Panic disorder F41.0 ; Degenerative disc disease at L5-S1 level M51.36 and Hypercholesterolemia E78.0 [facility] [address] 54333- 7124 Oct, Panic disorder [episodic paroxysmal anxiety] without agoraphobia F41.0 and Social phobia, generalized F40.11 [facility] [address] 45098- 3486 Oct, [facility] [address] 00067- 0851 Sep, [facility] [address] 30702- 0896 Sep, [facility] [address] 60872- 8451 Sep, [facility] [address] 71694- 0588 Sep, [facility] [address] 68023- 7380 Aug, [facility] [address] 49841- 7772 Aug, [facility] [id number] [place] [address] 03362- 5893 Aug, [facility] [address] 92265- 2103 Aug, Social phobia F40.10 and Panic disorder F41.0 [facility] [address] 24223- 4594 Aug, [facility] [address] [place] [address]- 5731 Aug, [facility] [id number] [place] [address] 86667- 0982 Aug, [facility] [id number] [place] [address] 05961- 8471 Aug, [facility] [id number] [place] [address] 77206- 4435 Jul, [facility] [id number] [place] [address] 19426- 7166 Jul, Morbid obesity E66.01 ; Chronic pain G89.29 ; Anxiety F41.9 ; Social phobia F40.10 ; Panic disorder F41.0 ; Pelvic pain in male R10.2 ; Insomnia G47.00 and HTN (hypertension) I10 [facility] [address] [id number] [place] [address] 77365- 2903 Jul, [facility] [id number] [place] [address] 99071- 3194 Jul, [facility] [id number] [place] [address] 05805- 8854 Jun, Degenerative disc disease 722.6 [facility] [address] [id number] [place] [address] 85427- 8855 Jun, Pain in joint, pelvic region and thigh 719.45 ; Morbid obesity 278.01 ; Essential hypertension, benign 401.1 and Constipation 564.00 [facility] [id number] [place] [address] 79038- 1864 May, [facility] [id number] [place] [address] 40985- 0608 May, [facility] [id number] [place] [address] 06699- 5225 May, [facility] [address] [id number] [place] [address] 43311- 4302 May, [facility] [address] [address]- 8198 May, [facility] [address] [id number] [place] [address] 17239- 4026 May, [facility] [address] [place] [id number] [place] [address] 79585- 3806 May, Essential hypertension, benign 401.1 ; Anxiety state, unspecified 300.00 ; Panic disorder without agoraphobia 300.01 ; Social phobia 300.23 ; Morbid obesity 278.01 ; Other chronic pain 338.29 and Insomnia 780.52 [facility] [id number] [place] [address] 73794- 5873 May, Essential hypertension 401.9 [facility] ([facility] [id number] [place] [address] 17022- 6990 May, Pain in joint, pelvic region and thigh 719.45 [facility] ([facility] [id number] [place] [address] 16678- 6760 May, Essential hypertension, benign 401.1 [facility] [id number] [place] [address] 28594- 1091 May, Panic disorder without agoraphobia 300.01 and Social phobia 300.23 [facility] [id number] [place] [address] 65082- 4603 May, [facility] ([facility] [id number] [place] [address] 25825- 1628 May, [facility] ([facility] [id number] [place] [address] 60642- 2117 Apr, Chronic pain 338.29 [facility] [id number] [place] [address] 25444- 3161 Apr, [facility] [id number] [place] [address] 32950- 3927 Apr, [facility] ([facility] [id number] [place] [address] 36294- 7484 Apr, [facility] ([facility] [id number] [address] Apr, [facility] ([facility] [id number] [address] Apr, [facility] ([facility] [id number], [place] [address] Apr, [facility] ([facility] [id number] [place] [address] 571775- 6402 Apr, [facility] ([facility] [id number] [place] [address] 489790- 2362 Apr, Essential hypertension, benign 401.1 ; Morbid obesity 278.01 ; Anxiety state, unspecified 300.00 ; Panic disorder without agoraphobia 300.01 ; Social phobia 300.23 and Chronic pain 338.29 [facility] [id number] [place] [address] 69021- 3892 Mar, [facility] ([facility] [id number], [place] [address] Mar, [facility] [id number] [place] [address] 39126- 5506 Mar, [facility] ([facility] [address] [address]990 Mar, [facility] ([facility] [id number] [place] [id number] Mar, Social phobia 300.23 and Panic disorder without agoraphobia 300.01 [facility] [id number] [address] Mar, [facility] [id number] [address] February, [facility] [id number] [place] [address] February, Major depression, recurrent 296.30 and No condition on [place] II V71.09 [facility] [id number] [address] February, [facility] [id number] [place] [address] February, Panic disorder without agoraphobia 300.01 ; Social phobia 300.23 and Morbid obesity 278.01 [facility] [id number] [place] [address] Jan, [facility] [id number] [address] Jan, [facility] [id number] [place] [address]- [address] Dec, [facility] [id number] [address] Dec, [facility] [id number] [place] [address]- [address] Dec, [facility] [address] [place] [address] Dec, [facility] [address] [place] [address] Dec, [facility] [address] [place] [address] Dec, [facility] [address] [place] [address] Dec, [facility] [address] [place] [address] Dec, [facility] [id number] [place] [address] Dec, [facility] [address] [place] [address] Dec, [facility] [id number] [address] Dec, [facility] [address] [facility] [id number] [place] [address] Dec, [facility] [address] [facility] [id number] [address] Dec, [facility] [address] [facility] [id number] [address] Dec, [facility] [address] [facility] [id number] [address] Dec, [facility] [address] [facility] [id number] [address] Dec, IMMUNIZATIONS No Known Immunizations SOCIAL HISTORY Never Assessed REASON FOR VISIT pen needles PLAN OF CARE VITAL SIGNS MEDICATIONS Medication Instructions Dosage Frequency Start Date End Date Duration Status Pen [place] 31G X 8 MM as directed Jan, Active RESULTS No Results PROCEDURES No Known procedures INSTRUCTIONS MEDICATIONS ADMINISTERED No Known Medications MEDICAL (GENERAL) HISTORY Type Description Date Medical History hypertension Medical History morbid obesity Medical History anxiety Medical History CHF, echo 2016, with EF 20-25, moderate to severe tricuspid regurgitation, seen clarisa 11/30/17. Medical History Social phobia, generalized Medical [...]
--- OUTSIDE RECORDS SUMMARY | 2018-11-30 17:25 | XMS REPORT ---
Author Author YONAS BELLE Organization [facility] Address [address] [place] [address] Care Team Providers Care Drum Tender Name Role Phone YONAS BELLE Unavailable PROBLEMS Type Condition ICD9-CM Code FLF87-XG Code Onset Dates Condition Status SNOMED Code Problem Type 2 diabetes mellitus with diabetic chronic kidney disease E11.22 Active 00673599 Problem Mixed hyperlipidemia E78.2 Active 421022483 Problem Primary insomnia F51.01 Active 9494011 Problem Major depressive disorder, recurrent, in full remission F33.42 Active 896231509 Problem Lymphedema I89.0 Active 989043991 Problem BMI 50.0-59.9, adult Z68.43 Active 031308898 Problem Constipation, unspecified constipation type K59.00 Active 40118490 Problem Chronic systolic congestive heart failure I50.22 Active 068740915 Problem Stasis dermatitis of both legs I87.2 Active 00815273 Problem Abnormal liver function test R94.5 Active 454438752 Problem Panic disorder F41.0 Active 059334793 Problem Controlled substance agreement terminated Z91.14 Active 709823398 Problem Cardiomegaly I51.7 Active 3202032 Problem Degenerative disc disease at L5-S1 level M51.36 Active 08354961 Problem BPH (benign prostatic hyperplasia) N40.0 Active 558162842 Problem Chronic pain G89.29 Active 30228874 Problem Dysthymic disorder F34.1 Active 35949595 Problem HTN (hypertension) I10 Active 80674987 Problem Mild episode of recurrent major depressive disorder F33.0 Active 215596806 ALLERGIES Substance Reaction Event Type Date Status Wellbutrin Unknown Non Drug Allergy February, Active ENCOUNTERS Encounter Location Date Diagnosis [facility] [address] [facility] [id number] [address] May, [facility] [place] [address] [facility] [id number] [address] May, [place] [address], [place] [address] May, [place] [address] [place] [id number] [place] [address] 77562- 8483 May, [place] [id number] [place] [address] 66549- 6251 Apr, Type 2 diabetes mellitus with diabetic chronic kidney disease E11.22 ; Chronic pain G89.29 ; Major depressive disorder, recurrent, in full remission F33.42 ; HTN (hypertension) I10 ; Chronic systolic congestive heart failure I50.22 ; Mixed hyperlipidemia E78.2 and BMI 45.0-49.9, adult Z68.42 [place] [address] [place] [id number] [place] [address] 32182- 9132 Apr, Type 2 diabetes mellitus with diabetic chronic kidney disease E11.22 [place] [address] [place] [id number] [place] [address] 04923- 8531 17 Apr, 2018 Medicare annual wellness visit, [...] vaccine Z28.21 and Encounter for immunization Z23 [place] [id number] [place] [address] 49507- 2821 Apr, [place] [id number] [place] [address] 54495- 2463 Mar, Type 2 diabetes mellitus with diabetic chronic kidney disease E11.22 [place] [address] [place] [id number] [place] [address] 68238- 8837 Mar, Chronic pain G89.29 [facility] [place] [address] [place] [id number] [place] [address] 42436- 3059 February, Chronic pain G89.29 ; Abnormal liver function test R94.5 and Degenerative disc disease at L5-S1 level M51.36 [facility] [place] [address] [id number] [place] [address] 41256- 3444 Jan, [facility] [address] [id number] [place] [address] 22039- 1274 Jan, [facility] [place] [address] [place] [id number] [place] [address] 23393- 8330 Jan, [place] [address] [place] [id number] [place] [address] 66250- 9133 Jan, Abnormal liver function test R94.5 ; Dysthymic disorder F34.1 and Chronic pain G89.29 [place] [address] [place] [id number] [place] [address] 52831- 6006 Dec, [place] [address] [place] [id number] [place] [address] 82192- 3329 Dec, HTN (hypertension) I10 ; BMI 45.0-49.9, adult Z68.42 ; Chronic pain G89.29 ; Primary insomnia F51.01 ; Mixed hyperlipidemia E78.2 ; Dysthymic disorder F34.1 ; Type 2 diabetes mellitus with diabetic chronic kidney disease E11.22 ; Stasis dermatitis of both legs I87.2 and Chronic systolic congestive heart failure I50.22 [facility] [place] [id number] [place] [address] 26440- 9525 Dec, Chronic pain G89.29 [facility] [address] [place] [id number] [place] [address] 10021 -1419 Dec, Lymphedema I89.0 and Chronic systolic congestive heart failure I50.22 [facility] [address] [place] [id number] [place] [address] 05776- 3635 Dec, [place] [address], [place] [address] 2689 26 Nov, 2017 Type 2 diabetes mellitus with diabetic chronic kidney disease E11.22 [place] [address] [place] [id number] [place] [address] 95412- 1676 12 Nov, 2017 Chronic pain G89.29 and Dysthymic disorder F34.1 [place] [address] [place] [id number] [place] [address] 21917- 4745 08 Nov, 2017 [place] [address] [place] [id number] [place] [address] 37108- 9537 Oct, HTN (hypertension) I10 ; Chronic pain G89.29 ; BMI 45.0-49.9 , adult Z68.42 ; Primary insomnia F51.01 ; Mixed hyperlipidemia E78.2 ; Dysthymic disorder F34.1 ; Type 2 diabetes mellitus with diabetic chronic kidney disease E11.22 ; Chronic congestive heart failure, unspecified congestive heart failure type I50.9 ; Acute non-recurrent maxillary sinusitis J01.00 and BMI 50.0-59.9, adult Z68.43 [place] [address] [place] [id number] [place] [address] 42273- 3904 17 Oct, 2017 HTN (hypertension) I10 and Dysthymic disorder F34.1 [place] [address], [place] [address] 7431 Oct, [place] [id number] [place] [address] 93072- 3710 Oct, HTN (hypertension) I10 [place] [id number] [place] [address] 99860- 9167 Oct, Chronic pain G89.29 [place] [address] [place] [id number] [place] [address] 16927- 9166 Sep, [place] [address] [place] [id number] [place] [address] 15710- 7987 Sep, HTN (hypertension) I10 ; Chronic pain G89.29 ; BMI 45.0-49.9 , adult Z68.42 ; Primary insomnia F51.01 ; Mixed hyperlipidemia E78.2 ; Dysthymic disorder F34.1 and Type 2 diabetes mellitus with diabetic chronic kidney disease E11.22 [place] [address] [place] [id number] [place] [address] 35465- 9283 Sep, Chronic pain G89.29 [place] [address] [place] [id number] [place] [address] 05074- 1786 Sep, Acute on chronic heart failure, unspecified heart failure type I50.[address] 24560- 3207 Sep, Acute on chronic heart failure, unspecified heart failure type I50.9 ; Type 2 diabetes mellitus with diabetic chronic kidney disease E11.22 and BMI 50.0-59.9, adult Z68.43 [place] [id number] [place] [address] 74347- 2252 Sep, Acute on chronic heart failure, unspecified heart failure type I50.9 ; HTN (hypertension) I10 and Type 2 diabetes mellitus with diabetic chronic kidney disease E11.22 [place] [address] [place] [id number] [place] [address] 77319- 5822 Aug, Acute on chronic heart failure, unspecified heart failure type I50.9 ; HTN (hypertension) I10 ; Type 2 diabetes mellitus with diabetic chronic kidney disease E11.22 ; Cellulitis of right lower extremity L03.115 and BMI 50.0-59.9, adult Z68.43 [facility] [id number] [place] [address] 90267 -2444 Aug, Acute upper respiratory infection, unspecified J06.9 ; Other viral agents as the cause of diseases classified elsewhere B97.89 ; Constipation, unspecified constipation type K59.00 ; BMI 50.0-59.9, adult Z68.43 and BMI 60.0-69.9, adult Z68.44 [facility] [address] [place] [id number] [place] [address] 38572- 9525 Aug, Chronic pain G89.29 [facility] [place] [address], [place] [address]- 4115 Jul, Chronic pain G89.29 [facility] [address] [place] [id number] [place] [address] 49894- 0163 Jul, Chronic pain G89.29 [facility] [place] [address] [place] [id number] [place] [address] 05063- 6784 Jun, Chronic pain G89.29 [facility] [place] [address] [place] [id number] [place] [address] 73354- 1553 18 Jun, 2017 [place] [address] [place] [id number] [place] [address] 10327- 6370 06 Jun, 2017 Chronic pain G89.29 [place] [address] [place] [id number] [place] [address] 25490- 3479 May, Chronic pain G89.29 and Type 2 diabetes mellitus with diabetic chronic kidney disease E11.22 [place] [address] [place] [id number] [place] [address] 13720- 2949 16 May, 2017 [place] [address] [place] [id number] [place] [address] 08050- 9646 May, Chronic pain G89.29 and Anxiety F41.9 [place] [address] [place] [id number] [place] [address] 38990- 9838 May, Type 2 diabetes mellitus with diabetic chronic kidney disease E11.22 ; Social phobia F40.10 ; Morbid obesity E66.01 ; Chronic pain G89.29 ; HTN (hypertension) I10 ; Degenerative disc disease at L5-S1 level M51.36 ; BPH (benign prostatic hyperplasia) N40.0 ; Pain in right knee M25.561 and 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 [place] [id number] [place] [address] 68498- 7103 Apr, Anxiety F41.9 [place] [id number] [place] [address] 16330- 6461 Apr, [place] [address], [place] [address]- 6988 Mar, [place] [address] [place] [id number] [place] [address] 44888- 8200 Mar, Edema, unspecified type R60.9 and Anxiety F41.[id number] [place] [address] 73982- 1271 Mar, Social phobia F40.10 ; Mixed obsessional thoughts and acts F42.2 and Mild episode of recurrent major depressive disorder F33.0 [place] [address] [place] [id number] [place] [address] 29386- 1996 Mar, Degenerative disc disease at L5-S1 level M51.36 [place] [id number] [place] [address] 61966- 1309 Mar, [place] [id number] [place] [address] 63099- 1240 Mar, [place] [address] [place] [id number] [place] [address] 96874- 5336 Mar, [place] [id number] [place] [address] 51943- 8598 February, Morbid obesity E66.01 ; Anxiety F41.9 ; Degenerative disc disease at L5-S1 level M51.36 ; BPH (benign prostatic hyperplasia) N40.0 ; Social phobia F40.10 ; HTN (hypertension) I10 ; Edema, unspecified type R60.9 and Screening cholesterol level Z13.220 [place] [id number] [place] [address] 34662- 9752 February, Social phobia, generalized F40.11 [place] [id number] [place] [address] 21156- 0546 February, Chronic pain G89.29 [id number] [place] [address] 74552- 0516 February, [place] [id number] [place] [address] 89817- 1114 07 Jan, 2017 Chronic pain G89.29 [facility] [place] [address] [place] [id number] [place] [address] 70074- 7437 04 Jan, 2017 Panic disorder [episodic paroxysmal anxiety] without agoraphobia F41.0 [facility] [address] [place] [id number] [place] [address] 25757- 9485 13 Dec, 2016 Morbid obesity E66.01 ; Anxiety F41.9 ; Chronic pain G89.29 ; HTN (hypertension) I10 ; BPH (benign prostatic hyperplasia) N40.0 ; Generalized edema R60.1 and Cough R05 [place] [address] [place] [id number] [place] [address] 28907- 9094 14 Nov, 2016 Chronic pain G89.29 [place] [address] [place] [id number] [place] [address] 92453- 3405 03 Nov, 2016 Social phobia, generalized F40.11 and Mild episode of recurrent major depressive disorder F33.0 [facility] [place] [address] [place] [id number] [place] [address] 43941- 7628 17 Oct, 2016 Chronic pain G89.29 [facility] [place] [address] [place] [id number] [place] [address] 65262- 9434 16 Oct, 2016 Social phobia, generalized F40.11 [place] [address] [place] [id number] [place] [address] 11298- 9395 Sep, [facility] [place] [address] [place] [id number] [place] [address] 13256- 8746 Sep, [facility] [address] [place] [id number] [place] [address] 49424- 6192 Sep, [facility] [place] [address] [place] [id number] [place] [address] 85364- 5223 Sep, [facility] [place] [address] [place] [id number] [place] [address] 98786- 0059 Sep, [facility] [address] [place] [address] [place] [address]- 8187 16 Sep, 2016 Social phobia, generalized F40.11 and Mild episode of recurrent major depressive disorder F33.0 [place] [address] [place] [id number] [place] [address] 28265- 9415 08 Sep, 2016 [place] [address] [place] [id number] [place] [address] 14249- 7384 Aug, [place] [address] [place] [id number] [place] [address] 04631- 8992 Aug, [place] [address] [place] [id number] [place] [address] 13048- 3200 17 Aug, 2016 Bronchitis J40 [place] [address] [place] [id number] [place] [address] 72591- 0764 15 Aug, 2016 [place] [address] [place] [id number] [place] [address] 82906- 0325 10 Aug, 2016 Osteoarthritis of knee, unspecified M17.9 [place] [address] [place] [id number] [place] [address] 52909- 7160 09 Aug, 2016 Morbid obesity E66.01 ; Chronic pain G89.29 ; Anxiety F41.9 ; Social phobia F40.10 ; HTN (hypertension) I10 ; Social phobia, generalized F40.11 ; Acute upper respiratory infection, unspecified J06.9 and Other viral agents as the cause of diseases classified elsewhere B97.89 [place] [address] [place] [id number] [place] [address] 63424- 1076 Aug, Social phobia, generalized F40.11 and Dysthymic disorder F34.1 [place] [address] [place] [id number] [place] [address] 01102- 8030 Jul, [place] [address] [place] [id number] [place] [address] 44687- 9234 Jun, [place] [address] [place] [id number] [place] [address] 66705- 5510 May, [place] [address], [place] [address]- 4762 May, [facility] [place] [address], [place] [address]- 0604 May, [facility] [place] [address], [place] [address]- 8459 May, [facility] [place] [id number] [place] [address] 18437- 6942 May, [facility] [place] [address], [place] [address]- 6784 May, [facility] [place] [id number] [place] [address] 29363- 3127 May, [facility] [place] [address], [place] [address]- 7438 Apr, [facility] [place] [address] [place] [id number] [place] [address] 03574- 5433 Apr, Chondromalacia, right knee M94.261 [facility] [place] [address], [place] [address]- 9808 Apr, Pain in unspecified hip M25.559 [facility] [place] [address], [place] [address]- 1593 Mar, Social phobia, unspecified F40.10 and Pain in unspecified hip M25.559 [facility] [place] [address], [place] [address]- 7790 February, [facility] [place] [address], [place] [address]- 1174 February, Social phobia F40.10 [facility] [place] [address], [place] [address]- 6451 February, Morbid obesity E66.01 ; Chronic pain G89.29 ; Social phobia F40.10 ; Pelvic pain in male R10.2 ; HTN (hypertension) I10 ; Degenerative disc disease at L5-S1 level M51.36 ; BPH (benign prostatic hyperplasia) N40.0 and Pain in right knee M25.561 [facility] [place] [address] 68313- 1866 14 Jan, 2016 [facility] [place] [id number] [place] [address] 29198- 3362 13 Jan, 2016 [place] [address] 31674- 1948 Jan, [facility] [place] [address] 83776- 6058 Dec, [place] [address] 77393- 2082 Dec, [facility] [place] [address] 60576- 3280 Dec, [facility] [address] 26331 -6803 Nov, Strep pharyngitis J02.0 ; Influenza A J10.1 and Cough R05 [address] 62723- 2979 Nov, [facility] [place] [address] [id number] [place] [address] 45921- 4986 Nov, [place] [address] [place] [id number] [place] [address] 48741- 4032 Oct, HTN (hypertension) I10 ; Morbid obesity E66.01 ; Anxiety F41.9 ; Social phobia F40.10 ; Panic disorder F41.0 ; Degenerative disc disease at L5-S1 level M51.36 and Hypercholesterolemia E78.0 [facility] [place] [id number] [place] [address] 71204- 8380 Oct, Panic disorder [episodic paroxysmal anxiety] without agoraphobia F41.0 and Social phobia, generalized F40.[address] [place] [address]- 5424 Oct, [facility] [place] [id number] [place] [address] 67787- 3648 Sep, [facility] [place] [id number] [place] [address] 69139- 6018 Sep, [facility] [place] [id number] [place] [address] 97466- 3898 Sep, [facility] [place] [id number] [place] [address] 29828- 4370 Sep, [facility] [place] [id number] [place] [address] 04060- 8479 Aug, [facility] [place] [id number] [place] [address] 97588- 3747 Aug, [facility] [place] [id number] [place] [address] 85948- 6345 Aug, [facility] [place] [id number] [place] [address] 76288- 2565 Aug, Social phobia F40.10 and Panic disorder F41.0 [facility] [place] [id number] [place] [address] 40023- 2148 Aug, [facility] [place] [id number] [place] [address] 74103- 9843 Aug, [facility], [place] [id number] [place] [address] [phone] Aug, [facility], [place] [id number] [place] [address] [phone] Aug, [facility], [place] [id number] [place] [address] [id number]- [phone] Jul, [facility], [place] [id number] [place] [address] [id number] Jul, Morbid obesity E66.01 ; Chronic pain G89.29 ; Anxiety F41.9 ; Social phobia F40.10 ; Panic disorder F41.0 ; Pelvic pain in male R10.2 ; Insomnia G47.00 and HTN (hypertension) I10 [facility], [place] [id number] [place] [address] [phone] Jul, [facility], [place] [id number] [place] [address] [phone] Jul, [facility], [place] [id number] [place] [address] [id number] Jun, Degenerative disc disease 722.6 [facility], [place] [id number] [place] [address] [phone]- [phone] Jun, Pain in joint, pelvic region and thigh 719.45 ; Morbid obesity 278.01 ; Essential hypertension, benign 401.1 and Constipation 564.00 [facility], [place] [id number] [place] [address] [phone] May, [facility], [place] [id number] [place] [address] [phone] May, [facility], [place] [id number] [place] [address] [id number] May, [facility], [place] [id number] [place] [address] [id number] May, [facility], [place] [id number] [place] [address] [phone] May, [facility], [place] [id number] [place] [address] [phone] May, [facility], [place] [id number] [place] [address] [id number]- [phone] May, Essential hypertension, benign 401.1 ; Anxiety state, unspecified 300.00 ; Panic disorder without agoraphobia 300.01 ; Social phobia 300.23 ; Morbid obesity 278.01 ; Other chronic pain 338.29 and Insomnia 780.52 [facility] [place] [address] [id number] [place] [address]38- 1119 May, Essential hypertension 401.9 [facility] [place] [address], [place] [address] May, Pain in joint, pelvic region and thigh 719.45 [facility] [place] [address], [place] [address] May, Essential hypertension, benign 401.1 [facility] [place] [id number] [place] [address] 16155- 2547 May, Panic disorder without agoraphobia 300.01 and Social phobia 300.23 [facility] [place] [id number] [place] [address] 06678- 1627 May, [facility] [place] [id number] [place] [address] [id number]- 2525 May, [facility] [place] [id number] [place] [address] 41788- 7147 Apr, Chronic pain 338.29 [facility] [place] [id number] [place] [address] 64372- 5928 Apr, [facility] [place] [id number] [place] [address] 77105- 7602 Apr, [facility] [place] [address], [place] [address]25 Apr, [facility] [place] [id number] [place] [address] 46618- 8008 Apr, [facility] [place] [address], [place] [address] 2544 Apr, [facility] [place] [id number] [place] [address] 55391- 7789 Apr, [facility] [place] [address], [place] [address] 3229 Apr, [facility] [place] [address], [place] [address] Apr, Essential hypertension, benign 401.1 ; Morbid obesity 278.01 ; Anxiety state, unspecified 300.00 ; Panic disorder without agoraphobia 300.01 ; Social phobia 300.23 and Chronic pain 338.29 [facility] [place] [address], [place] [address]31 Mar, [facility] [place] [address], [place] [address]885 Mar, [facility] [place] [id number] [place] [address] 83875- 5908 Mar, [facility] [place] [id number] [place] [address] 88464- 5071 Mar, [facility] [place] [id number] [place] [address] 63510- 4957 Mar, Social phobia 300.23 and Panic disorder without agoraphobia 300.01 [facility] [place] [id number] [place] [address] 69530- 3438 Mar, [facility] [place] [id number] [place] [address] 34332- 1703 February, [facility] [place] [id number] [place] [address]- 1960 February, Major depression, recurrent 296.30 and No condition on [place] II V71.09 [facility] [place] [address], [place] [address] February, [facility] [place] [id number] [place] [address] 86024- 3268 February, Panic disorder without agoraphobia 300.01 ; Social phobia 300.23 and Morbid obesity 278.01 [facility] [place] [address], [place] [address]65 Jan, [facility] [place] [address], [place] [address] 2019 Jan, [facility] [place] [id number] [place] [address] Dec, [facility] [address] [id number] [place] [address]- [address]250 Dec, [facility] [address] [id number] [place] [address]- 2752 Dec, [facility] [address] [id number] [place] [address]- 5546 Dec, [facility] [address] [id number] [place] [address]- 5528 Dec, [facility] [address] [id number] [place] [address]- 3716 Dec, [facility] [address] [id number] [place] [address]- 0313 Dec, [facility] [address] [id number] [place] [address]- 4240 Dec, [facility] [address] [id number] [place] [address]- 8515 Dec, [facility] [address] [id number] [place] [address]- 2028 Dec, [facility] [address] [facility] [id number] [place] [address]- 1318 Dec, [facility] [address] [id number] [place] [address]- 7790 Dec, [facility] [address] [id number] [place] [address]- 6130 Dec, [facility] [address] [id number] [place] [address]- 3397 Dec, [facility] [address] [facility] [id number] [place] [address]- 7906 Dec, [facility] [address] [id number] [place] [address]- 8161 Dec, IMMUNIZATIONS No Known Immunizations SOCIAL HISTORY Never Assessed REASON FOR VISIT Pain (acute), states his pain specialist is only doing his back, informed he will not be able to have anything controlled-AHarrymanRN, Rash on back on back of legs, noticed last night, does not itch PLAN OF CARE Activity Details Follow Up Dr. Cortés as sched and DM march Reason:DM/Pain VITAL SIGNS Height 73 in 2018-03-22 Temperature 97.3 degrees Fahrenheit 2018-03-22 Heart Rate 88 bpm 2018-03-22 Respiratory Rate 20 2018-03-22 Oximetry 99 % 2018-03-22 Blood pressure systolic 130 mmHg 2018-03-22 Blood pressure diastolic 68 mmHg 2018-03-22 MEDICATIONS Medication Instructions Dosage Frequency Start Date End Date Duration Status Lisinopril 20 MG Orally Once a day 1 tablet 24h Active Blood Glucose Monitor System w/Device as directed Active Blood Glucose Test - as directed Active Spironolactone 25 MG Orally Once a day 1 tablet 24h 30 Active Metoprolol Succinate ER 100 MG TAKE ONE TABLET BY MOUTH ONCE DAILY Active Levemir FlexTouch 100 UNIT/ML Subcutaneous Once a day Inject 10 units 24h Active Pravastatin Sodium 10 MG TAKE ONE TABLET BY MOUTH ONCE DAILY 30 Active Potassium Chloride Kristen ER 20 meq Orally Once a day 2 tablets 24h Active Lasix 80 MG Orally Once a day 2 tablets 24h Active Gabapentin 300 MG Orally Once a day at hs x 7 days then 1 bid 1 capsule February, 28 days Active Pen [place] 31G X 8 MM as directed Jan, Active RESULTS No Results PROCEDURES Procedure Date Ordered Result Body Site [facility] VISIT ESTABLISHED PATIENT March 22, 2018 VENIPUNCT, ROUTINE* March 22, 2018 LAB NOT BILLED BY [facility] March 22, 2018 INSTRUCTIONS MEDICATIONS ADMINISTERED No Known Medications [...]
--- OUTSIDE RECORDS SUMMARY | 2018-11-30 17:25 | XMS REPORT ---
Author Author YONAS BELLE Organization [facility] Address [address] [place] [address] Care Team Providers Care Lift Driver Name Role Phone YONAS BELLE Unavailable PROBLEMS Type Condition ICD9-CM Code [id number] Code Onset Dates Condition Status SNOMED Code Problem Type 2 diabetes mellitus with diabetic chronic kidney disease E11.22 Active 29603426 Problem Mixed hyperlipidemia E78.2 Active 198378294 Problem Primary insomnia F51.01 Active 3603416 Problem Major depressive disorder, recurrent, in full remission F33.42 Active 748012848 Problem Lymphedema I89.0 Active 165864037 Problem BMI 50.0-59.9, adult Z68.43 Active 702807449 Problem Constipation, unspecified constipation type K59.00 Active 66553006 Problem Chronic systolic congestive heart failure I50.22 Active 965263436 Problem Stasis dermatitis of both legs I87.2 Active 80536931 Problem Abnormal liver function test R94.5 Active 180087733 Problem Panic disorder F41.0 Active 174869024 Problem Controlled substance agreement terminated Z91.14 Active 115065320 Problem Cardiomegaly I51.7 Active 8753645 Problem Degenerative disc disease at L5-S1 level M51.36 Active 68383243 Problem BPH (benign prostatic hyperplasia) N40.0 Active 794627603 Problem Chronic pain G89.29 Active 45965543 Problem Dysthymic disorder F34.1 Active 59400125 Problem HTN (hypertension) I10 Active 70875637 Problem Mild episode of recurrent major depressive disorder F33.0 Active 083650823 ALLERGIES No Information ENCOUNTERS Encounter Location Date Diagnosis [facility] [address] [facility] [id number] [place] [address] Apr, Type 2 diabetes mellitus with diabetic chronic kidney disease E11.22 ; Chronic pain G89.29 ; Major depressive disorder, recurrent, in full remission F33.42 ; HTN (hypertension) I10 ; Chronic systolic congestive heart failure I50.22 ; Mixed hyperlipidemia E78.2 and BMI 45.0-49.9, adult Z68.42 [place] [id number] [place] [address] 18210- 1217 18 Apr, 2018 Type 2 diabetes mellitus with diabetic chronic kidney disease E11.22 [place] [id number] [place] [address] 66305- 0438 17 Apr, 2018 Medicare annual wellness visit, [...] vaccine Z28.21 and Encounter for immunization Z23 [address] [address]- [address]791 Apr, [place] [id number] [place] [address] 33454- 6030 Mar, Type 2 diabetes mellitus with diabetic chronic kidney disease E11.22 [place] [id number] [place] [address] 89882- 1559 Mar, Chronic pain G89.29 [place] [id number] [place] [address] 00399- 9756 February, Chronic pain G89.29 ; Abnormal liver function test R94.5 and Degenerative disc disease at L5-S1 level M51.36 [place] [address] [place] [id number] [place] [address] 37669- 7726 Jan, [place] [address] [place] [id number] [place] [address] 92504- 0639 Jan, [address] [place] [id number] [place] [address] 64777- 9268 Jan, [facility] [address] [address]- 2724 Jan, Abnormal liver function test R94.5 ; Dysthymic disorder F34.1 and Chronic pain G89.29 [facility] [address] 36511- 2825 Dec, [facility] [address] 74684- 5918 Dec, HTN (hypertension) I10 ; BMI 45.0-49.9, adult Z68.42 ; Chronic pain G89.29 ; Primary insomnia F51.01 ; Mixed hyperlipidemia E78.2 ; Dysthymic disorder F34.1 ; Type 2 diabetes mellitus with diabetic chronic kidney disease E11.22 ; Stasis dermatitis of both legs I87.2 and Chronic systolic congestive heart failure I50.22 [place] [address] 54286- 7117 Dec, Chronic pain G89.29 [facility] WALK IN [facility] [address] [address] -2512 Dec, Lymphedema I89.0 and Chronic systolic congestive heart failure I50.22 [facility] [address] [place] [id number] [place] [address] 88437- 4123 Dec, [facility] [address] [place] [id number] [place] [address] 83129- 7736 Nov, Type 2 diabetes mellitus with diabetic chronic kidney disease E11.22 [facility] [address] 97708- 3268 Nov, Chronic pain G89.29 and Dysthymic disorder F34.1 [facility] [address] [place] [id number] [place] [address] 48254- 8597 Nov, [facility] [address] 90503- 7392 30 Oct, 2017 HTN (hypertension) I10 ; Chronic pain G89.29 ; BMI 45.0-49.9 , adult Z68.42 ; Primary insomnia F51.01 ; Mixed hyperlipidemia E78.2 ; Dysthymic disorder F34.1 ; Type 2 diabetes mellitus with diabetic chronic kidney disease E11.22 ; Chronic congestive heart failure, unspecified congestive heart failure type I50.9 ; Acute non-recurrent maxillary sinusitis J01.00 and BMI 50.0-59.9, adult Z68.43 [place] [address] [place] [id number] [place] [address] 98726- 5482 17 Oct, 2017 HTN (hypertension) I10 and Dysthymic disorder F34.1 [place] [address] [place] [id number] [place] [address] 44949- 3552 Oct, [place] [address] 05969- 1452 Oct, HTN (hypertension) I10 [place] [address] [place] [id number] [place] [address] 35504- 3738 Oct, Chronic pain G89.29 [place] [address] [place] [id number] [place] [address] 68713- 5821 Sep, [place] [address] [place] [id number] [place] [address] 33365- 2174 Sep, HTN (hypertension) I10 ; Chronic pain G89.29 ; BMI 45.0-49.9 , adult Z68.42 ; Primary insomnia F51.01 ; Mixed hyperlipidemia E78.2 ; Dysthymic disorder F34.1 and Type 2 diabetes mellitus with diabetic chronic kidney disease E11.22 [place] [address] [place] [id number] [place] [address] 21069- 8033 18 Sep, 2017 Chronic pain G89.29 [place] [address] [place] [id number] [place] [address] 37292- 6438 Sep, Acute on chronic heart failure, unspecified heart failure type I50.9 [place] [address] [place] [address]- 1237 Sep, Acute on chronic heart failure, unspecified heart failure type I50.9 ; Type 2 diabetes mellitus with diabetic chronic kidney disease E11.22 and BMI 50.0-59.9, adult Z68.43 [facility] [address] [place] [id number] [place] [address] 27893- 8882 Sep, Acute on chronic heart failure, unspecified heart failure type I50.9 ; HTN (hypertension) I10 and Type 2 diabetes mellitus with diabetic chronic kidney disease E11.22 [place] [address] [place] [id number] [place] [address] 90330- 2551 Aug, Acute on chronic heart failure, unspecified heart failure type I50.9 ; HTN (hypertension) I10 ; Type 2 diabetes mellitus with diabetic chronic kidney disease E11.22 ; Cellulitis of right lower extremity L03.115 and BMI 50.0-59.9, adult Z68.43 [facility] WALK IN [facility] [address] [place] [id number] [place] [address] 39589 -7123 Aug, Acute upper respiratory infection, unspecified J06.9 ; Other viral agents as the cause of diseases classified elsewhere B97.89 ; Constipation, unspecified constipation type K59.00 ; BMI 50.0-59.9, adult Z68.43 and BMI 60.0-69.9, adult Z68.44 [place] [address] [place] [id number] [place] [address] 12338- 7078 Aug, Chronic pain G89.29 [place] [address] [place] [id number] [place] [address] 70137- 7982 Jul, Chronic pain G89.29 [place] [address] [place] [id number] [place] [address] 36909- 5423 Jul, Chronic pain G89.29 [place] [address] [place] [id number] [place] [address] 12829- 1135 Jun, Chronic pain G89.29 [place] [address] [place] [id number] [place] [address] 59484- 9510 Jun, [place] [id number] [place] [address] 44255- 4021 06 Jun, 2017 Chronic pain G89.29 [place] [address] [place] [id number] [place] [address] 11881- 6758 May, Chronic pain G89.29 and Type 2 diabetes mellitus with diabetic chronic kidney disease E11.22 [place] [address] [place] [id number] [place] [address] 40144- 0058 16 May, 2017 [place] [address] [place] [id number] [place] [address] 74924- 8227 May, Chronic pain G89.29 and Anxiety F41.9 [place] [id number] [place] [address] 19182- 1426 May, Type 2 diabetes mellitus with diabetic chronic kidney disease E11.22 ; Social phobia F40.10 ; Morbid obesity E66.01 ; Chronic pain G89.29 ; HTN (hypertension) I10 ; Degenerative disc disease at L5-S1 level M51.36 ; BPH (benign prostatic hyperplasia) N40.0 ; Pain in right knee M25.561 and 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 [place] [address] [place] [id number] [place] [address] 14401- 7001 Apr, Anxiety F41.9 [place] [id number] [place] [address] 30239- 6103 Apr, [place] [address] [place] [id number] [place] [address] 74517- 1269 Mar, [place] [address] [place] [id number] [place] [address] 11648- 6413 Mar, Edema, unspecified type R60.9 and Anxiety F41.9 [place] [address] [place] [id number] [place] [address] 88441- 3188 Mar, Social phobia F40.10 ; Mixed obsessional thoughts and acts F42.2 and Mild episode of recurrent major depressive disorder F33.[id number] [place] [address] 82534- 6978 Mar, Degenerative disc disease at L5-S1 level M51.36 [place] [address] [place] [id number] [place] [address] 20779- 4384 Mar, [place] [address] [place] [id number] [place] [address] 21368- 9859 Mar, [place] [address] [place] [id number] [place] [address] 51672- 5082 Mar, [place] [address] [place] [id number] [place] [address] 14109- 4440 February, Morbid obesity E66.01 ; Anxiety F41.9 ; Degenerative disc disease at L5-S1 level M51.36 ; BPH (benign prostatic hyperplasia) N40.0 ; Social phobia F40.10 ; HTN (hypertension) I10 ; Edema, unspecified type R60.9 and Screening cholesterol level Z13.220 [place] [address] [place] [id number] [place] [address] 93380- 4544 February, Social phobia, generalized F40.11 [place] [address] [place] [id number] [place] [address] 14430- 7143 February, Chronic pain G89.29 [place] [address] [place] [id number] [place] [address] 71938- 5457 February, [place] [address] [place] [id number] [place] [address] 45440- 1533 Jan, Chronic pain G89.29 [place] [address] [place] [id number] [place] [address] 17986- 9561 Jan, Panic disorder [episodic paroxysmal anxiety] without agoraphobia F41.0 [place] [address] [place] [id number] [place] [address] 59826- 4068 Dec, Morbid obesity E66.01 ; Anxiety F41.9 ; Chronic pain G89.29 ; HTN (hypertension) I10 ; BPH (benign prostatic hyperplasia) N40.0 ; Generalized edema R60.1 and Cough R05 [facility] [address] [place] [id number] [place] [address] 17350 2546 14 Nov, 2016 Chronic pain G89.29 [facility] [address] [place] [id number] [place] [address] 91241 2546 03 Nov, 2016 Social phobia, generalized F40.11 and Mild episode of recurrent major depressive disorder F33.0 [facility] [address] [place] [id number] [place] [address] 35593 2546 17 Oct, 2016 Chronic pain G89.29 [facility] [address] [place] [id number] [place] [address] 96222 2546 16 Oct, 2016 Social phobia, generalized F40.11 [facility] [address] [place] [id number] [place] [address] 21846 2546 Sep, [facility] [address] [place] [id number] [place] [address] 57739 2546 Sep, [facility] [address] [place] [id number] [place] [address] 45651 2546 Sep, [facility] [address] [id number] [place] [address] 86086 2546 Sep, [facility] [address] [id number] [place] [address] 54234 2546 Sep, [facility] [id number] [place] [address] 74945 2546 Sep, Social phobia, generalized F40.11 and Mild episode of recurrent major depressive disorder F33.0 [facility] [id number] [place] [address] 03020 2546 Sep, [facility] [address] [place] [id number] [place] [address] 29134 2546 Aug, [facility] [address] [place] [id number] [place] [address] 43282 2546 Aug, [facility] [address] [place] [id number] [place] [address] 94063- 6095 17 Aug, 2016 Bronchitis J40 [facility] [address] [place] [id number] [place] [address] 08502- 1052 15 Aug, 2016 [facility] [address] [id number] [place] [address] 10017- 1426 10 Aug, 2016 Osteoarthritis of knee, unspecified M17.9 [facility] [address] [place] [id number] [place] [address] 28328- 9032 09 Aug, 2016 Morbid obesity E66.01 ; Chronic pain G89.29 ; Anxiety F41.9 ; Social phobia F40.10 ; HTN (hypertension) I10 ; Social phobia, generalized F40.11 ; Acute upper respiratory infection, unspecified J06.9 and Other viral agents as the cause of diseases classified elsewhere B97.89 [facility] [address] [place] [id number] [place] [address] 73453- 6121 08 Aug, 2016 Social phobia, generalized F40.11 and Dysthymic disorder F34.1 [facility] [address] [place] [id number] [place] [address] 73191- 9119 Jul, [facility] [address] [place] [id number] [place] [address] 78386- 2299 Jun, [facility] [address] [place] [id number] [place] [address] 72825- 5803 May, [facility] [address] [place] [id number] [place] [address] 85389- 4086 May, [facility] [address] [id number] [place] [address] 10745- 2774 May, [facility] [id number] [place] [address] 03904- 5058 May, [facility] [address] [place] [id number] [place] [address] 76494- 3508 May, [facility] [address] [place] [id number] [place] [address] 59003- 2599 May, [facility] [address] [address]- 4887 May, [facility] [id number] [place] [address] 26944- 0520 Apr, [facility] [address] [place] [id number] [place] [address] 55429- 5634 Apr, Chondromalacia, right knee M94.261 [facility] [address] [place] [id number] [place] [address] 69921- 5378 Apr, Pain in unspecified hip M25.559 [place] [address] [place] [id number] [place] [address] 81339- 1042 Mar, Social phobia, unspecified F40.10 and Pain in unspecified hip M25.559 [place] [address] [place] [id number] [place] [address] 32420- 7830 February, [facility] [address] [place] [id number] [place] [address] 49434- 5622 February, Social phobia F40.10 [place] [address] [place] [id number] [place] [address] 06603- 5181 February, Morbid obesity E66.01 ; Chronic pain G89.29 ; Social phobia F40.10 ; Pelvic pain in male R10.2 ; HTN (hypertension) I10 ; Degenerative disc disease at L5-S1 level M51.36 ; BPH (benign prostatic hyperplasia) N40.0 and Pain in right knee M25.561 [facility] [address] [address]- 5662 Jan, [facility] [address] [place] [id number] [place] [address] 53017- 0223 Jan, [facility] [address] [address]- 7983 Jan, [facility] [address] [place] [id number] [place] [address] 95987- 3150 Dec, [facility] [id number] [place] [address] 39980- 8029 Dec, [facility] [address] [id number] [place] [address] 40198- 4273 Dec, [facility] WALK IN [facility] [id number] [place] [address] 15180 -7929 Nov, Strep pharyngitis J02.0 ; Influenza A J10.1 and Cough R05 [facility] [address] [place] [id number] [place] [address] 32410- 6955 Nov, [facility] [address] [place] [id number] [place] [address] 86566- 2296 Nov, [facility] [address] [place] [id number] [place] [address] 48722- 2451 Oct, HTN (hypertension) I10 ; Morbid obesity E66.01 ; Anxiety F41.9 ; Social phobia F40.10 ; Panic disorder F41.0 ; Degenerative disc disease at L5-S1 level M51.36 and Hypercholesterolemia E78.0 [facility] [id number] [place] [address] 36589- 4864 Oct, Panic disorder [episodic paroxysmal anxiety] without agoraphobia F41.0 and Social phobia, generalized F40.11 [facility] [id number] [place] [address] 18128- 6147 Oct, [facility] [id number] [place] [address] 05540- 1737 Sep, [facility] [address] [place] [id number] [place] [address] 55036- 6274 Sep, [facility] [address] [id number] [place] [address] 71580- 7165 Sep, [facility] [id number] [place] [address] 52222- 3938 Sep, [facility] [id number] [place] [address] 59038- 7951 Aug, [facility] [address] [id number] [place] [address] 79707- 1646 Aug, [facility] [address] [id number] [place] [address] 84807- 9621 Aug, [facility] [address] 54519- 7158 Aug, Social phobia F40.10 and Panic disorder F41.0 [facility] [address] [id number] [place] [address] 73118- 7090 Aug, [facility] [address] [id number] [place] [address] 31968- 4492 Aug, [facility] [id number] [place] [address] 95972- 5783 Aug, [facility] [id number] [place] [address] 65320- 1892 Aug, [facility] [id number] [place] [address] 21996- 9269 Jul, [facility] [id number] [place] [address] 08474- 1231 Jul, Morbid obesity E66.01 ; Chronic pain G89.29 ; Anxiety F41.9 ; Social phobia F40.10 ; Panic disorder F41.0 ; Pelvic pain in male R10.2 ; Insomnia G47.00 and HTN (hypertension) I10 [facility] [id number] [place] [address] 91655- 0481 Jul, [facility] [id number] [place] [address] 49177- 1991 Jul, [facility] [id number] [place] [address] 67203- 9587 Jun, Degenerative disc disease 722.6 [facility] [address] [address]- 6818 Jun, Pain in joint, pelvic region and thigh 719.45 ; Morbid obesity 278.01 ; Essential hypertension, benign 401.1 and Constipation 564.00 [facility] [address], [place] [address]- 1089 May, [facility] [id number] [place] [address] 61922- 3628 May, [facility] [id number] [place] [address] 24958- 6791 May, [facility] [id number] [place] [address] 72028- 8473 May, [facility] [id number] [place] [address] 25538- 7147 May, [facility] [id number] [place] [address] 91088- 3166 May, [facility] [id number] [place] [address] 74579- 7702 May, Essential hypertension, benign 401.1 ; Anxiety state, unspecified 300.00 ; Panic disorder without agoraphobia 300.01 ; Social phobia 300.23 ; Morbid obesity 278.01 ; Other chronic pain 338.29 and Insomnia 780.52 [facility] [id number] [place] [address] 07256- 1418 May, Essential hypertension 401.9 [facility] [id number] [place] [address] 83881- 7584 May, Pain in joint, pelvic region and thigh 719.45 [facility] [id number] [place] [address] 57294- 8614 May, Essential hypertension, benign 401.1 [facility] [address] [address]- 8748 May, Panic disorder without agoraphobia 300.01 and Social phobia 300.23 [facility] [address], [place] [address]- 6792 May, [facility] [id number] [place] [address] 53217- 8867 May, [facility] [id number] [place] [address]- 8819 Apr, Chronic pain 338.29 [facility] [id number] [place] [address] 18930- 4642 Apr, [facility] [id number] [place] [address] 73876- 9236 Apr, [facility] [id number] [place] [address] [id number]- 6145 Apr, [facility] [id number] [place] [address]- 3401 Apr, [facility] [id number] [place] [address] 69[address]- 4515 Apr, [facility] [id number] [place] [address]93- 9005 Apr, [facility] [id number] [place] [address]- 8369 Apr, [facility] [id number] [address] Apr, Essential hypertension, benign 401.1 ; Morbid obesity 278.01 ; Anxiety state, unspecified 300.00 ; Panic disorder without agoraphobia 300.01 ; Social phobia 300.23 and Chronic pain 338.29 [facility] [id number] [address] Mar, [facility] [id number] [address] Mar, [facility] [id number] [place] [address] Mar, [facility] [id number] [address] Mar, [facility] [id number] [place] [address]- 3226 Mar, Social phobia 300.23 and Panic disorder without agoraphobia 300.01 [facility] [id number] [place] [address] 28312- 4906 Mar, [facility] [id number] [place] [address] 146[address]- 3614 February, [facility] [id number] [place] [id number] February, Major depression, recurrent 296.30 and No condition on Hurley II V71.09 [facility] [id number] [place] [address]- [address] February, [facility] [id number] [place] [address]- 47[address] February, Panic disorder without agoraphobia 300.01 ; Social phobia 300.23 and Morbid obesity 278.01 [facility] [id number] [address] Jan, [facility] [id number] [address] Jan, [facility] [id number] [address] Dec, [facility] [id number], [place] [address] Dec, [facility] [id number] [place] [address]- 4620 Dec, [facility] [id number], [place] [address] Dec, [facility] [id number] [place] [address] 227[address]- 8097 Dec, [facility] [address] [facility] [id number], [place] [address] Dec, [facility] [address] [facility] [facility] [id number], [place] [address] Dec, [facility] [id number] [address] Dec, [facility] [address] [facility] [facility] [id number], [place] [address] Dec, [facility] [address] [facility] [id number] [address] Dec, [facility] [id number] [place] [address]- 3811 Dec, [facility] [id number], [place] [address] Dec, [facility] [id number], [place] [address] Dec, [facility] [id number], [place] [address] Dec, [facility] [id number], [place] [address] Dec, [facility] [id number], [place] [address] Dec, IMMUNIZATIONS No Known Immunizations SOCIAL HISTORY Never Assessed REASON FOR VISIT Requests return call PLAN OF CARE VITAL SIGNS MEDICATIONS Medication Instructions Dosage Frequency Start Date End Date Duration Status Pen Alpha 31G X 8 MM as directed Jan, [...]
--- OUTSIDE RECORDS SUMMARY | 2018-11-30 17:26 | XMS REPORT ---
Author Author YONAS BELLE [facility] Address [address] [place] [address] Care Team Providers Care Wrapper Leaf Inspector Name Role Phone YONAS BELLE Unavailable PROBLEMS Type Condition ICD9-CM Code [id number] Code Onset Dates Condition Status SNOMED Code Problem Type 2 diabetes mellitus with diabetic chronic kidney disease E11.22 Active 17684353 Problem Mixed hyperlipidemia E78.2 Active 214816841 Problem Primary insomnia F51.01 Active 7179780 Problem Major depressive disorder, recurrent, in full remission F33.42 Active 743805023 Problem Lymphedema I89.0 Active 036056804 Problem BMI 50.0-59.9, adult Z68.43 Active 958695065 Problem Constipation, unspecified constipation type K59.00 Active 14008830 Problem Chronic systolic congestive heart failure I50.22 Active 475018768 Problem Stasis dermatitis of both legs I87.2 Active 42664382 Problem Abnormal liver function test R94.5 Active 785868256 Problem Panic disorder F41.0 Active 216873370 Problem Controlled substance agreement terminated Z91.14 Active 963928415 Problem Cardiomegaly I51.7 Active 7622485 Problem Degenerative disc disease at L5-S1 level M51.36 Active 53711130 Problem BPH (benign prostatic hyperplasia) N40.0 Active 340530551 Problem Chronic pain G89.29 Active 86722504 Problem Dysthymic disorder F34.1 Active 13294977 Problem HTN (hypertension) I10 Active 60896439 Problem Mild episode of recurrent major depressive disorder F33.0 Active 348860374 ALLERGIES No Information ENCOUNTERS Encounter Location Date Diagnosis [facility] [address] [facility] [id number] [place] [address] Apr, Type 2 diabetes mellitus with diabetic chronic kidney disease E11.22 ; Chronic pain G89.29 ; Major depressive disorder, recurrent, in full remission F33.42 ; HTN (hypertension) I10 ; Chronic systolic congestive heart failure I50.22 ; Mixed hyperlipidemia E78.2 and BMI 45.0-49.9, adult Z68.42 [place] [id number] [place] [address] 27747- 4979 18 Apr, 2018 Type 2 diabetes mellitus with diabetic chronic kidney disease E11.22 [place] [id number] [place] [address] 42400- 7469 17 Apr, 2018 Medicare annual wellness visit, [...] vaccine Z28.21 and Encounter for immunization Z23 [address] [address] Apr, [place] [id number] [place] [address] 96599- 1943 Mar, Type 2 diabetes mellitus with diabetic chronic kidney disease E11.22 [place] [id number] [place] [address] 72754- 9447 Mar, Chronic pain G89.29 [place] [id number] [place] [address] 47501- 3040 February, Chronic pain G89.29 ; Abnormal liver function test R94.5 and Degenerative disc disease at L5-S1 level M51.36 [place] [address] [place] [id number] [place] [address] 59009- 0976 Jan, [place] [address] [place] [id number] [place] [address] 25010- 1711 Jan, [address] [place] [id number] [place] [address] 41522- 5148 Jan, [facility] [address] 33927- 9543 Jan, Abnormal liver function test R94.5 ; Dysthymic disorder F34.1 and Chronic pain G89.29 [facility] [address] 47090- 5146 Dec, [facility] [address] 89177- 2756 Dec, HTN (hypertension) I10 ; BMI 45.0-49.9, adult Z68.42 ; Chronic pain G89.29 ; Primary insomnia F51.01 ; Mixed hyperlipidemia E78.2 ; Dysthymic disorder F34.1 ; Type 2 diabetes mellitus with diabetic chronic kidney disease E11.22 ; Stasis dermatitis of both legs I87.2 and Chronic systolic congestive heart failure I50.22 [place] [address] 38341- 8430 Dec, Chronic pain G89.29 [facility] [address] 21378 -5746 Dec, Lymphedema I89.0 and Chronic systolic congestive heart failure I50.22 [facility] [address] [place] [id number] [place] [address] 75113- 1067 Dec, [facility] [address] [place] [id number] [place] [address] 87710- 4809 Nov, Type 2 diabetes mellitus with diabetic chronic kidney disease E11.22 [facility] [address] 37305- 9150 Nov, Chronic pain G89.29 and Dysthymic disorder F34.1 [facility] [address] [place] [id number] [place] [address] 31931- 3082 Nov, [facility] [address] 56951- 6554 30 Oct, 2017 HTN (hypertension) I10 ; Chronic pain G89.29 ; BMI 45.0-49.9 , adult Z68.42 ; Primary insomnia F51.01 ; Mixed hyperlipidemia E78.2 ; Dysthymic disorder F34.1 ; Type 2 diabetes mellitus with diabetic chronic kidney disease E11.22 ; Chronic congestive heart failure, unspecified congestive heart failure type I50.9 ; Acute non-recurrent maxillary sinusitis J01.00 and BMI 50.0-59.9, adult Z68.43 [place] [address] [place] [id number] [place] [address] 06411- 4749 17 Oct, 2017 HTN (hypertension) I10 and Dysthymic disorder F34.1 [place] [address] [place] [id number] [place] [address] 77871- 9693 Oct, [place] [address] 58136- 0658 Oct, HTN (hypertension) I10 [place] [address] [place] [id number] [place] [address] 81431- 9238 Oct, Chronic pain G89.29 [place] [address] [place] [id number] [place] [address] 60102- 7530 Sep, [place] [address] [place] [id number] [place] [address] 16962- 4346 Sep, HTN (hypertension) I10 ; Chronic pain G89.29 ; BMI 45.0-49.9 , adult Z68.42 ; Primary insomnia F51.01 ; Mixed hyperlipidemia E78.2 ; Dysthymic disorder F34.1 and Type 2 diabetes mellitus with diabetic chronic kidney disease E11.22 [facility] [address] [place] [id number] [place] [address] 39187- 8006 18 Sep, 2017 Chronic pain G89.29 [place] [address] [place] [id number] [place] [address] 87271- 7194 Sep, Acute on chronic heart failure, unspecified heart failure type I50.9 [place] [address] [place] [address]- 3049 Sep, Acute on chronic heart failure, unspecified heart failure type I50.9 ; Type 2 diabetes mellitus with diabetic chronic kidney disease E11.22 and BMI 50.0-59.9, adult Z68.43 [facility] [address] [place] [id number] [place] [address] 81231- 7059 Sep, Acute on chronic heart failure, unspecified heart failure type I50.9 ; HTN (hypertension) I10 and Type 2 diabetes mellitus with diabetic chronic kidney disease E11.22 [place] [address] [place] [id number] [place] [address] 79698- 3511 Aug, Acute on chronic heart failure, unspecified heart failure type I50.9 ; HTN (hypertension) I10 ; Type 2 diabetes mellitus with diabetic chronic kidney disease E11.22 ; Cellulitis of right lower extremity L03.115 and BMI 50.0-59.9, adult Z68.43 [facility] [address] [place] [id number] [place] [address] 00394 -8005 Aug, Acute upper respiratory infection, unspecified J06.9 ; Other viral agents as the cause of diseases classified elsewhere B97.89 ; Constipation, unspecified constipation type K59.00 ; BMI 50.0-59.9, adult Z68.43 and BMI 60.0-69.9, adult Z68.44 [place] [address] [place] [id number] [place] [address] 48515- 6891 Aug, Chronic pain G89.29 [facility] [address] [place] [id number] [place] [address] 27301- 1226 Jul, Chronic pain G89.29 [place] [address] [place] [id number] [place] [address] 25885- 7545 Jul, Chronic pain G89.29 [place] [address] [place] [id number] [place] [address] 25549- 0042 Jun, Chronic pain G89.29 [place] [address] [place] [id number] [place] [address] 23807- 0753 Jun, [place] [address] [place] [address] 79482- 6800 06 Jun, 2017 Chronic pain G89.29 [place] [address] [place] [id number] [place] [address] 85687- 1970 May, Chronic pain G89.29 and Type 2 diabetes mellitus with diabetic chronic kidney disease E11.22 [place] [address] [place] [id number] [place] [address] 53310- 4936 16 May, 2017 [place] [address] [place] [id number] [place] [address] 47380- 8169 May, Chronic pain G89.29 and Anxiety F41.9 [place] [id number] [place] [address] 83760- 2324 May, Type 2 diabetes mellitus with diabetic chronic kidney disease E11.22 ; Social phobia F40.10 ; Morbid obesity E66.01 ; Chronic pain G89.29 ; HTN (hypertension) I10 ; Degenerative disc disease at L5-S1 level M51.36 ; BPH (benign prostatic hyperplasia) N40.0 ; Pain in right knee M25.561 and 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 [place] [address] [place] [id number] [place] [address] 52163- 8413 Apr, Anxiety F41.9 [place] [id number] [place] [address] 73143- 0109 Apr, [facility] [address] [place] [id number] [place] [address] 22762- 4016 Mar, [place] [address] [place] [id number] [place] [address] 77244- 3647 Mar, Edema, unspecified type R60.9 and Anxiety F41.9 [place] [address] [place] [id number] [place] [address] 01335- 5182 Mar, Social phobia F40.10 ; Mixed obsessional thoughts and acts F42.2 and Mild episode of recurrent major depressive disorder F33.[id number] [place] [address] 41345- 7595 Mar, Degenerative disc disease at L5-S1 level M51.36 [place] [address] [place] [id number] [place] [address] 38256- 3648 Mar, [place] [address] [place] [id number] [place] [address] 47613- 7335 Mar, [place] [address] [place] [id number] [place] [address] 44251- 9624 Mar, [place] [address] [place] [id number] [place] [address] 87857- 4248 February, Morbid obesity E66.01 ; Anxiety F41.9 ; Degenerative disc disease at L5-S1 level M51.36 ; BPH (benign prostatic hyperplasia) N40.0 ; Social phobia F40.10 ; HTN (hypertension) I10 ; Edema, unspecified type R60.9 and Screening cholesterol level Z13.220 [place] [address] [place] [id number] [place] [address] 90134- 2629 February, Social phobia, generalized F40.11 [place] [address] [place] [id number] [place] [address] 17596- 2619 February, Chronic pain G89.29 [place] [address] [place] [id number] [place] [address] 51297- 8544 February, [place] [address] [place] [id number] [place] [address] 67877- 8418 Jan, Chronic pain G89.29 [place] [address] [place] [id number] [place] [address] 49577- 8850 Jan, Panic disorder [episodic paroxysmal anxiety] without agoraphobia F41.0 [place] [address] [place] [id number] [place] [address] 64552- 0740 Dec, Morbid obesity E66.01 ; Anxiety F41.9 ; Chronic pain G89.29 ; HTN (hypertension) I10 ; BPH (benign prostatic hyperplasia) N40.0 ; Generalized edema R60.1 and Cough R05 [facility] [address] [place] [id number] [place] [address] 99911 2546 14 Nov, 2016 Chronic pain G89.29 [facility] [address] [place] [address] [id number] [place] [address] 71170 2546 03 Nov, 2016 Social phobia, generalized F40.11 and Mild episode of recurrent major depressive disorder F33.0 [facility] [address] [place] [id number] [place] [address] 56422 2546 17 Oct, 2016 Chronic pain G89.29 [facility] [address] [place] [id number] [place] [address] 87578 2546 16 Oct, 2016 Social phobia, generalized F40.11 [facility] [address] [place] [id number] [place] [address] 36104 2546 Sep, [facility] [address] [place] [id number] [place] [address] 96256 2546 Sep, [facility] [address] [place] [id number] [place] [address] 09131 2546 Sep, [facility] [address] [place] [id number] [place] [address] 67921 2546 Sep, [facility] [address] [place] [id number] [place] [address] 54389 2546 Sep, [facility] [address] [place] [address] [id number] [place] [address] 31575 2546 Sep, Social phobia, generalized F40.11 and Mild episode of recurrent major depressive disorder F33.0 [facility] [id number] [place] [address] 46756 2546 Sep, [facility] [address] [place] [id number] [place] [address] 12709 2546 Aug, [facility] [address] [place] [id number] [place] [address] 79849 2546 Aug, [facility] [address] [place] [id number] [place] [address] 42628- 1888 17 Aug, 2016 Bronchitis J40 [facility] [address] [place] [id number] [place] [address] 45409- 0358 15 Aug, 2016 [facility] [address] [place] [id number] [place] [address] 73347- 4934 10 Aug, 2016 Osteoarthritis of knee, unspecified M17.9 [facility] [address] [place] [id number] [place] [address] 74089- 1015 09 Aug, 2016 Morbid obesity E66.01 ; Chronic pain G89.29 ; Anxiety F41.9 ; Social phobia F40.10 ; HTN (hypertension) I10 ; Social phobia, generalized F40.11 ; Acute upper respiratory infection, unspecified J06.9 and Other viral agents as the cause of diseases classified elsewhere B97.89 [facility] [address] [place] [id number] [place] [address] 82382- 0432 08 Aug, 2016 Social phobia, generalized F40.11 and Dysthymic disorder F34.1 [facility] [address] [place] [id number] [place] [address] 22260- 2818 Jul, [facility] [address] [place] [id number] [place] [address] 09794- 4060 Jun, [facility] [address] [place] [id number] [place] [address] 13355- 6846 May, [facility] [address] [place] [id number] [place] [address] 29787- 8295 May, [facility] [address] [place] [id number] [place] [address] 07504- 2878 May, [facility] [address] [place] [id number] [place] [address] 55564- 4049 May, [facility] [address] [id number] [place] [address] 05412- 9125 May, [facility] [address] [place] [id number] [place] [address] 12757- 1314 May, [facility] [address] [address]- 7050 May, [facility] [id number] [place] [address] 21108- 0870 Apr, [facility] [address] [place] [id number] [place] [address] 37945- 7080 Apr, Chondromalacia, right knee M94.261 [facility] [address] [place] [address] [place] [address] 64653- 5292 Apr, Pain in unspecified hip M25.559 [facility] [address] [place] [address] [place] [address] 91001- 4023 Mar, Social phobia, unspecified F40.10 and Pain in unspecified hip M25.559 [facility] [address] [place] [address] [place] [address] 07363- 9682 February, [facility] [address] [place] [address] [place] [address] 31985- 6081 February, Social phobia F40.10 [place] [address] [place] [id number] [place] [address] 49330- 1054 February, Morbid obesity E66.01 ; Chronic pain G89.29 ; Social phobia F40.10 ; Pelvic pain in male R10.2 ; HTN (hypertension) I10 ; Degenerative disc disease at L5-S1 level M51.36 ; BPH (benign prostatic hyperplasia) N40.0 and Pain in right knee M25.561 [facility] [address] [address]- 2024 Jan, [facility] [address] [place] [id number] [place] [address] 33615- 4108 Jan, [facility] [address] [place] [address]- 7448 Jan, [facility] [address] [place] [id number] [place] [address] 93877- 4657 Dec, [facility] [id number] [place] [address] 23956- 5512 Dec, [facility] [address] [address] [id number] [place] [address] 80613- 7223 Dec, [facility] [address] [address] [id number] [place] [address] 10812 -2236 Nov, Strep pharyngitis J02.0 ; Influenza A J10.1 and Cough R05 [facility] [address] [place] [id number] [place] [address] 45840- 0681 Nov, [facility] [address] [place] [id number] [place] [address] 72262- 4446 Nov, [facility] [address] [place] [address] [address] [place] [address] 17659- 2572 Oct, HTN (hypertension) I10 ; Morbid obesity E66.01 ; Anxiety F41.9 ; Social phobia F40.10 ; Panic disorder F41.0 ; Degenerative disc disease at L5-S1 level M51.36 and Hypercholesterolemia E78.0 [facility] [address] [id number] [place] [address] 08917- 6485 Oct, Panic disorder [episodic paroxysmal anxiety] without agoraphobia F41.0 and Social phobia, generalized F40.11 [facility] [id number] [place] [address] 19259- 1930 Oct, [facility] [id number] [place] [address] 95510- 3908 Sep, [facility] [address] [place] [address] [place] [address] 45059- 8271 Sep, [facility] [address] [place] [id number] [place] [address] 28124- 3988 Sep, [facility] [address] [place] [id number] [place] [address] 94260- 1747 Sep, [facility] [id number] [place] [address] 28893- 8320 Aug, [facility] [address] [id number] [place] [address] 00159- 7455 Aug, [facility] [id number] [place] [address] 62019- 6639 Aug, [facility] [address] 26793- 5563 Aug, Social phobia F40.10 and Panic disorder F41.0 [facility] [address] [id number] [place] [address] 40622- 7761 Aug, [facility] [id number] [place] [address] 23234- 9202 Aug, [facility] [id number] [place] [address] 07424- 9473 Aug, [facility] [id number] [place] [address] 64251- 5997 Aug, [facility] [id number] [place] [address] 81325- 7957 Jul, [facility] [address] [place] [address] 18101- 6344 Jul, Morbid obesity E66.01 ; Chronic pain G89.29 ; Anxiety F41.9 ; Social phobia F40.10 ; Panic disorder F41.0 ; Pelvic pain in male R10.2 ; Insomnia G47.00 and HTN (hypertension) I10 [facility] [address] [place] [address] 10552- 8855 Jul, [facility] [id number] [place] [address] 44952- 8674 Jul, [facility] [id number] [place] [address] 29800- 1553 Jun, Degenerative disc disease 722.6 [facility] [id number] [address]- 6124 Jun, Pain in joint, pelvic region and thigh 719.45 ; Morbid obesity 278.01 ; Essential hypertension, benign 401.1 and Constipation 564.00 [facility] [address] [place] [address]- 2684 May, [facility] [id number] [place] [address] 79612- 9578 May, [facility] [id number] [place] [address] 88218- 3300 May, [facility] [id number] [place] [address] 38566- 3544 May, [facility] [id number] [place] [address] 93257- 1933 May, [facility] [id number] [place] [address] 65724- 6663 May, [facility] [id number] [place] [address] 49723- 7180 May, Essential hypertension, benign 401.1 ; Anxiety state, unspecified 300.00 ; Panic disorder without agoraphobia 300.01 ; Social phobia 300.23 ; Morbid obesity 278.01 ; Other chronic pain 338.29 and Insomnia 780.52 [facility] [id number] [place] [address] 20410- 2029 May, Essential hypertension 401.9 [facility] [id number] [place] [address] 22089- 2536 May, Pain in joint, pelvic region and thigh 719.45 [facility] [id number] [place] [address] 75112- 3257 May, Essential hypertension, benign 401.1 [facility] [id number], [place] [address]- 6473 May, Panic disorder without agoraphobia 300.01 and Social phobia 300.23 [facility] [address] [place] [address]- 7677 May, [facility] [id number] [place] [address] 06042- 3540 May, [facility] [id number] [address]- 6429 Apr, Chronic pain 338.29 [facility] [id number] [place] [address] 36777- 5820 Apr, [facility] [id number] [place] [address] 79064- 7195 Apr, [facility] [id number] [place] [address] 51422- 6280 Apr, [facility] [id number] [place] [address] 84975- 8906 Apr, [facility] [id number] [place] [address] 98480- 5033 Apr, [facility] [id number] [place] [address] 62638- 3532 Apr, [facility] [id number] [place] [address] 16093- 5433 Apr, [facility] [address] [place] [address]- 9263 Apr, Essential hypertension, benign 401.1 ; Morbid obesity 278.01 ; Anxiety state, unspecified 300.00 ; Panic disorder without agoraphobia 300.01 ; Social phobia 300.23 and Chronic pain 338.29 [facility] [id number] [address] Mar, [facility] [id number] [address] Mar, [facility] [id number] [address] Mar, [facility] [id number] [address] Mar, [facility] [id number] [place] [address]- 4716 Mar, Social phobia 300.23 and Panic disorder without agoraphobia 300.01 [facility] [id number] [place] [address] 61177- 4093 Mar, [facility] [id number] [place] [address] 28980- 0090 February, [facility] [id number] [place] [address] 14350- 7412 February, Major depression, recurrent 296.30 and No condition on [place] II V71.09 [facility] [id number] [place] [address] 72528- 1470 February, [facility] [id number] [place] [address] 31877- 4129 February, Panic disorder without agoraphobia 300.01 ; Social phobia 300.23 and Morbid obesity 278.01 [facility] [id number] [address] Jan, [facility] [id number] [address] Jan, [facility] [id number] [address] Dec, [facility] [id number] [address] Dec, [facility] [id number] [place] [address] 52311- 7672 Dec, [facility] [id number], [place] [address] Dec, [facility] [id number] [place] [address] 20909- 9860 Dec, [facility] [address] [facility] [id number] [address] Dec, [facility] [address] [facility] [id number] [id number] Dec, [facility] [address] [id number] [address] Dec, [facility] [address] [facility] [id number], [place] [address] Dec, [facility] [address] [facility] [id number], [place] [address] Dec, [facility] [id number] [address] Dec, [facility] [id number] [address] Dec, [facility] [id number], [place] [address] Dec, [facility] [id number], [place] [address] Dec, [facility] [id number], [place] [address] Dec, [facility] [address] [id number], [place] [address] Dec, IMMUNIZATIONS No Known Immunizations SOCIAL HISTORY Never Assessed REASON FOR VISIT Violation of Controlled substance PLAN OF CARE VITAL SIGNS MEDICATIONS Medication Instructions Dosage Frequency Start Date End Date Duration Status Hydrocodone-Acetaminophen 10-325 MG Orally tid x 7 days then bid x 7 days then daily x 7 days 1 tablet Jan, February, 21 days Active RESULTS No Results PROCEDURES No [...]
--- OUTSIDE RECORDS SUMMARY | 2018-11-30 17:26 | XMS REPORT ---
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 Name Role Phone YONAS BELLE Unavailable PROBLEMS Type Condition ICD9-CM Code [id number] Code Onset Dates Condition Status SNOMED Code Problem Type 2 diabetes mellitus with diabetic chronic kidney disease E11.22 Active 12305271 Problem Mixed hyperlipidemia E78.2 Active 263827802 Problem Primary insomnia F51.01 Active 8614656 Problem Major depressive disorder, recurrent, in full remission F33.42 Active 123707196 Problem Lymphedema I89.0 Active 234401927 Problem BMI 50.0-59.9, adult Z68.43 Active 572913008 Problem Constipation, unspecified constipation type K59.00 Active 48665835 Problem Chronic systolic congestive heart failure I50.22 Active 478944560 Problem Stasis dermatitis of both legs I87.2 Active 81903057 Problem Abnormal liver function test R94.5 Active 584976978 Problem Panic disorder F41.0 Active 003129337 Problem Controlled substance agreement terminated Z91.14 Active 802389845 Problem Cardiomegaly I51.7 Active 9445814 Problem Degenerative disc disease at L5-S1 level M51.36 Active 63511571 Problem BPH (benign prostatic hyperplasia) N40.0 Active 572777993 Problem Chronic pain G89.29 Active 64286427 Problem Dysthymic disorder F34.1 Active 86590367 Problem HTN (hypertension) I10 Active 62082825 Problem Mild episode of recurrent major depressive disorder F33.0 Active 759228048 ALLERGIES No Information ENCOUNTERS Encounter Location Date Diagnosis [facility] [address] [facility] [id number] [place] [address] Apr, Type 2 diabetes mellitus with diabetic chronic kidney disease E11.22 ; Chronic pain G89.29 ; Major depressive disorder, recurrent, in full remission F33.42 ; HTN (hypertension) I10 ; Chronic systolic congestive heart failure I50.22 ; Mixed hyperlipidemia E78.2 and BMI 45.0-49.9, adult Z68.42 [facility] [id number] [place] [address] 24041- 7342 18 Apr, 2018 Type 2 diabetes mellitus with diabetic chronic kidney disease E11.22 [place] [id number] [place] [address] 47431- 8194 17 Apr, 2018 Medicare annual wellness visit, [...] vaccine Z28.21 and Encounter for immunization Z23 [address] [address]- [address] Apr, [place] [id number] [place] [address] 23343- 9521 Mar, Type 2 diabetes mellitus with diabetic chronic kidney disease E11.22 [facility] [id number] [place] [address] 50582- 9202 Mar, Chronic pain G89.29 [facility] [id number] [place] [address] 64069- 7735 February, Chronic pain G89.29 ; Abnormal liver function test R94.5 and Degenerative disc disease at L5-S1 level M51.36 [facility] [address] [place] [id number] [place] [address] 38570- 2762 Jan, [facility] [address] [place] [id number] [place] [address] 04431- 4144 Jan, [address] [place] [id number] [place] [address] 78548- 1873 Jan, [facility] [address] 17985- 5121 Jan, Abnormal liver function test R94.5 ; Dysthymic disorder F34.1 and Chronic pain G89.29 [facility] [address] 06098- 6135 Dec, [facility] [address] 70936- 2262 Dec, HTN (hypertension) I10 ; BMI 45.0-49.9, adult Z68.42 ; Chronic pain G89.29 ; Primary insomnia F51.01 ; Mixed hyperlipidemia E78.2 ; Dysthymic disorder F34.1 ; Type 2 diabetes mellitus with diabetic chronic kidney disease E11.22 ; Stasis dermatitis of both legs I87.2 and Chronic systolic congestive heart failure I50.22 [facility] [place] [address] 29427- 5952 Dec, Chronic pain G89.29 [facility] [address] 81196 -2134 Dec, Lymphedema I89.0 and Chronic systolic congestive heart failure I50.22 [facility] [address] [place] [id number] [place] [address] 12296- 9718 Dec, [facility] [address] [place] [id number] [place] [address] 12400- 6528 Nov, Type 2 diabetes mellitus with diabetic chronic kidney disease E11.22 [facility] [address] 43987- 4913 Nov, Chronic pain G89.29 and Dysthymic disorder F34.1 [facility] [address] [place] [id number] [place] [address] 03286- 4456 Nov, [facility] [address] 32777- 1392 30 Oct, 2017 HTN (hypertension) I10 ; Chronic pain G89.29 ; BMI 45.0-49.9 , adult Z68.42 ; Primary insomnia F51.01 ; Mixed hyperlipidemia E78.2 ; Dysthymic disorder F34.1 ; Type 2 diabetes mellitus with diabetic chronic kidney disease E11.22 ; Chronic congestive heart failure, unspecified congestive heart failure type I50.9 ; Acute non-recurrent maxillary sinusitis J01.00 and BMI 50.0-59.9, adult Z68.43 [facility] [address] [place] [id number] [place] [address] 85053- 4567 17 Oct, 2017 HTN (hypertension) I10 and Dysthymic disorder F34.1 [facility] [address] [place] [id number] [place] [address] 78618- 8926 Oct, [facility] [place] [address] 07717- 2349 Oct, HTN (hypertension) I10 [facility] [address] [place] [id number] [place] [address] 48341- 7437 Oct, Chronic pain G89.29 [facility] [address] [place] [id number] [place] [address] 87893- 4255 Sep, [facility] [address] [place] [id number] [place] [address] 55770- 5567 Sep, HTN (hypertension) I10 ; Chronic pain G89.29 ; BMI 45.0-49.9 , adult Z68.42 ; Primary insomnia F51.01 ; Mixed hyperlipidemia E78.2 ; Dysthymic disorder F34.1 and Type 2 diabetes mellitus with diabetic chronic kidney disease E11.22 [facility] [address] [place] [id number] [place] [address] 97734- 7863 18 Sep, 2017 Chronic pain G89.29 [facility] [address] [place] [id number] [place] [address] 45235- 9313 Sep, Acute on chronic heart failure, unspecified heart failure type I50.9 [facility] [address] [place] [address]- 9099 Sep, Acute on chronic heart failure, unspecified heart failure type I50.9 ; Type 2 diabetes mellitus with diabetic chronic kidney disease E11.22 and BMI 50.0-59.9, adult Z68.43 [facility] [address] [place] [id number] [place] [address] 46518- 4430 Sep, Acute on chronic heart failure, unspecified heart failure type I50.9 ; HTN (hypertension) I10 and Type 2 diabetes mellitus with diabetic chronic kidney disease E11.22 [facility] [address] [place] [id number] [place] [address] 13597- 4146 Aug, Acute on chronic heart failure, unspecified heart failure type I50.9 ; HTN (hypertension) I10 ; Type 2 diabetes mellitus with diabetic chronic kidney disease E11.22 ; Cellulitis of right lower extremity L03.115 and BMI 50.0-59.9, adult Z68.43 [facility] [address] [place] [id number] [place] [address] 92103 -8122 Aug, Acute upper respiratory infection, unspecified J06.9 ; Other viral agents as the cause of diseases classified elsewhere B97.89 ; Constipation, unspecified constipation type K59.00 ; BMI 50.0-59.9, adult Z68.43 and BMI 60.0-69.9, adult Z68.44 [facility] [address] [place] [id number] [place] [address] 24055- 6285 Aug, Chronic pain G89.29 [facility] [address] [place] [id number] [place] [address] 88813- 4997 Jul, Chronic pain G89.29 [facility] [address] [place] [id number] [place] [address] 21315- 5123 Jul, Chronic pain G89.29 [facility] [address] [place] [id number] [place] [address] 24608- 6509 Jun, Chronic pain G89.29 [facility] [address] [place] [id number] [place] [address] 06997- 6346 Jun, [facility] [id number] [place] [address] 35543- 5657 06 Jun, 2017 Chronic pain G89.29 [facility] [address] [place] [id number] [place] [address] 83922- 2972 May, Chronic pain G89.29 and Type 2 diabetes mellitus with diabetic chronic kidney disease E11.22 [facility] [address] [place] [id number] [place] [address] 20539- 5035 16 May, 2017 [facility] [address] [place] [id number] [place] [address] 79814- 0098 May, Chronic pain G89.29 and Anxiety F41.9 [place] [id number] [place] [address] 24852- 1137 May, Type 2 diabetes mellitus with diabetic chronic kidney disease E11.22 ; Social phobia F40.10 ; Morbid obesity E66.01 ; Chronic pain G89.29 ; HTN (hypertension) I10 ; Degenerative disc disease at L5-S1 level M51.36 ; BPH (benign prostatic hyperplasia) N40.0 ; Pain in right knee M25.561 and 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 [facility] [address] [place] [id number] [place] [address] 98423- 1364 Apr, Anxiety F41.9 [place] [id number] [place] [address] 26047- 3235 Apr, [facility] [address] [place] [id number] [place] [address] 20088- 4304 Mar, [facility] [address] [place] [id number] [place] [address] 74644- 4137 Mar, Edema, unspecified type R60.9 and Anxiety F41.9 [facility] [address] [place] [id number] [place] [address] 61758- 9433 Mar, Social phobia F40.10 ; Mixed obsessional thoughts and acts F42.2 and Mild episode of recurrent major depressive disorder F33.[id number] [place] [address] 38058- 3662 Mar, Degenerative disc disease at L5-S1 level M51.36 [facility] [address] [place] [id number] [place] [address] 04694- 4792 Mar, [facility] [address] [place] [id number] [place] [address] 61933- 7716 Mar, [facility] [address] [place] [id number] [place] [address] 33685- 2236 Mar, [facility] [address] [place] [id number] [place] [address] 14776- 3924 February, Morbid obesity E66.01 ; Anxiety F41.9 ; Degenerative disc disease at L5-S1 level M51.36 ; BPH (benign prostatic hyperplasia) N40.0 ; Social phobia F40.10 ; HTN (hypertension) I10 ; Edema, unspecified type R60.9 and Screening cholesterol level Z13.220 [facility] [address] [place] [id number] [place] [address] 85480- 0864 February, Social phobia, generalized F40.11 [facility] [address] [place] [id number] [place] [address] 97868- 6450 February, Chronic pain G89.29 [facility] [address] [place] [id number] [place] [address] 72988- 9506 February, [facility] [address] [place] [id number] [place] [address] 65445- 5215 Jan, Chronic pain G89.29 [facility] [address] [place] [id number] [place] [address] 45131- 4326 Jan, Panic disorder [episodic paroxysmal anxiety] without agoraphobia F41.0 [facility] [address] [place] [id number] [place] [address] 83528- 7944 Dec, Morbid obesity E66.01 ; Anxiety F41.9 ; Chronic pain G89.29 ; HTN (hypertension) I10 ; BPH (benign prostatic hyperplasia) N40.0 ; Generalized edema R60.1 and Cough R05 [facility] [address] [place] [id number] [place] [address] 69407 2546 14 Nov, 2016 Chronic pain G89.29 [facility] [address] [place] [id number] [place] [address] 25216 2546 03 Nov, 2016 Social phobia, generalized F40.11 and Mild episode of recurrent major depressive disorder F33.0 [facility] [address] [place] [id number] [place] [address] 63336 2546 17 Oct, 2016 Chronic pain G89.29 [facility] [address] [place] [id number] [place] [address] 11047 2546 16 Oct, 2016 Social phobia, generalized F40.11 [facility] [address] [place] [id number] [place] [address] 96332 2546 Sep, [facility] [address] [place] [id number] [place] [address] 75110 2546 Sep, [facility] [address] [place] [id number] [place] [address] 65938 2546 Sep, [facility] [address] [place] [id number] [place] [address] 96559 2546 Sep, [facility] [address] [place] [id number] [place] [address] 74005 2546 Sep, [facility] [address] [place] [id number] [place] [address] 27419 2546 Sep, Social phobia, generalized F40.11 and Mild episode of recurrent major depressive disorder F33.0 [facility] [id number] [place] [address] 22976 2546 Sep, [facility] [address] [place] [id number] [place] [address] 17028 2546 Aug, [facility] [address] [place] [id number] [place] [address] 25768 2546 Aug, [facility] [address] [place] [id number] [place] [address] 34810- 4730 17 Aug, 2016 Bronchitis J40 [facility] [address] [place] [id number] [place] [address] 71429- 0148 15 Aug, 2016 [facility] [address] [place] [id number] [place] [address] 69963- 7436 10 Aug, 2016 Osteoarthritis of knee, unspecified M17.9 [facility] [address] [place] [id number] [place] [address] 55229- 0361 09 Aug, 2016 Morbid obesity E66.01 ; Chronic pain G89.29 ; Anxiety F41.9 ; Social phobia F40.10 ; HTN (hypertension) I10 ; Social phobia, generalized F40.11 ; Acute upper respiratory infection, unspecified J06.9 and Other viral agents as the cause of diseases classified elsewhere B97.89 [facility] [address] [place] [id number] [place] [address] 79585- 2580 08 Aug, 2016 Social phobia, generalized F40.11 and Dysthymic disorder F34.1 [facility] [address] [place] [id number] [place] [address] 28903- 6541 Jul, [facility] [address] [place] [id number] [place] [address] 41629- 0707 Jun, [facility] [address] [place] [id number] [place] [address] 92993- 4601 May, [facility] [address] [place] [id number] [place] [address] 59122- 6535 May, [facility] [address] [place] [id number] [place] [address] 44066- 7842 May, [facility] [address] [place] [id number] [place] [address] 28758- 4758 May, [facility] [address] [place] [id number] [place] [address] 98401- 9531 May, [facility] [address] [place] [id number] [place] [address] 08649- 4365 May, [facility] [address], [place] [address]- 5844 May, [facility] [address] [place] [address] 39726- 1973 Apr, [facility] [address] [place] [id number] [place] [address] 77354- 4653 Apr, Chondromalacia, right knee M94.261 [facility] [address] [place] [id number] [place] [address] 16862- 9606 Apr, Pain in unspecified hip M25.559 [facility] [address] [place] [id number] [place] [address] 44284- 4130 Mar, Social phobia, unspecified F40.10 and Pain in unspecified hip M25.559 [facility] [address] [place] [id number] [place] [address] 42059- 8228 February, [facility] [address] [place] [id number] [place] [address] 05015- 5529 February, Social phobia F40.10 [facility] [address] [place] [id number] [place] [address] 07014- 3555 February, Morbid obesity E66.01 ; Chronic pain G89.29 ; Social phobia F40.10 ; Pelvic pain in male R10.2 ; HTN (hypertension) I10 ; Degenerative disc disease at L5-S1 level M51.36 ; BPH (benign prostatic hyperplasia) N40.0 and Pain in right knee M25.561 [facility] [address], [place] [address]- 8301 Jan, [facility] [address] [place] [id number] [place] [address] 59983- 6244 Jan, [facility] [address], [place] [address]- 8156 Jan, [facility] [address] [place] [id number] [place] [address] 17553- 8786 Dec, [facility] [id number] [place] [address] 83657- 3341 Dec, [facility] [address] [place] [id number] [place] [address] 08559- 0898 Dec, [facility] [address] [place] [id number] [place] [address] 70562 -3288 Nov, Strep pharyngitis J02.0 ; Influenza A J10.1 and Cough R05 [facility] [address] [place] [id number] [place] [address] 27354- 0004 Nov, [facility] [address] [place] [id number] [place] [address] 24236- 2924 Nov, [facility] [address] [place] [id number] [place] [address] 30026- 2914 Oct, HTN (hypertension) I10 ; Morbid obesity E66.01 ; Anxiety F41.9 ; Social phobia F40.10 ; Panic disorder F41.0 ; Degenerative disc disease at L5-S1 level M51.36 and Hypercholesterolemia E78.0 [facility] [address] [place] [id number] [place] [address] 24844- 4518 Oct, Panic disorder [episodic paroxysmal anxiety] without agoraphobia F41.0 and Social phobia, generalized F40.11 [facility] [address] [place] [address] 40421- 5214 Oct, [facility] [address] [place] [id number] [place] [address] 80879- 9356 Sep, [facility] [address] [place] [id number] [place] [address] 10617- 6781 Sep, [facility] [address] [place] [id number] [place] [address] 88450- 6460 Sep, [facility] [address] [place] [id number] [place] [address] 21737- 1977 Sep, [facility] [address] [place] [address] 35064- 5752 Aug, [facility] [address] [place] [id number] [place] [address] 43045- 3504 Aug, [facility] [address] [place] [id number] [place] [address] 21247- 9936 Aug, [facility] [address] 75806- 9304 Aug, Social phobia F40.10 and Panic disorder F41.0 [facility] [address] [id number] [place] [address] 80911- 6562 Aug, [facility] [address] [place] [id number] [place] [address] 16360- 6716 Aug, [facility] [address] [id number] [place] [address] 97800- 9248 Aug, [facility] [address] [place] [id number] [place] [address] 79392- 7228 Aug, [facility] [address] [id number] [place] [address] 42864- 6762 Jul, [facility] [address] [place] [id number] [place] [address] 27918- 7260 Jul, Morbid obesity E66.01 ; Chronic pain G89.29 ; Anxiety F41.9 ; Social phobia F40.10 ; Panic disorder F41.0 ; Pelvic pain in male R10.2 ; Insomnia G47.00 and HTN (hypertension) I10 [facility] [address] [id number] [place] [address] 83552- 4425 Jul, [facility] [id number] [place] [address] 70977- 3078 Jul, [facility] [id number] [place] [address] 13579- 5786 Jun, Degenerative disc disease 722.6 [facility] [address], [place] [address]- 8264 Jun, Pain in joint, pelvic region and thigh 719.45 ; Morbid obesity 278.01 ; Essential hypertension, benign 401.1 and Constipation 564.00 [facility] [address], [place] [address]- 1652 May, [facility] [address] [place] [id number] [place] [address] 58244- 3721 May, [facility] [id number] [place] [address] 05823- 6444 May, [facility] [address] [place] [id number] [place] [address] 51621- 8078 May, [facility] [id number] [place] [address] 71009- 4630 May, [facility] [id number] [place] [address] 56954- 2249 May, [facility] [id number] [place] [address] 57673- 7225 May, Essential hypertension, benign 401.1 ; Anxiety state, unspecified 300.00 ; Panic disorder without agoraphobia 300.01 ; Social phobia 300.23 ; Morbid obesity 278.01 ; Other chronic pain 338.29 and Insomnia 780.52 [facility] [address] [place] [address] 66174- 0402 May, Essential hypertension 401.9 [facility] [id number] [place] [address] 32061- 3132 May, Pain in joint, pelvic region and thigh 719.45 [facility] [id number] [place] [address] 82272- 5095 May, Essential hypertension, benign 401.1 [facility] [address], [place] [address]- 8463 May, Panic disorder without agoraphobia 300.01 and Social phobia 300.23 [facility] [address], [place] [address]- 1576 May, [facility] [id number] [place] [address] 29767- 4321 May, [facility] [id number] [address]- 1755 Apr, Chronic pain 338.29 [facility] [id number] [place] [address] 34542- 0607 Apr, [facility] [id number] [place] [address] 50282- 4703 Apr, [facility] [id number] [place] [address] 60659- 1493 Apr, [facility] [id number] [place] [address] 18986- 0502 Apr, [facility] [id number] [place] [address] 38107- 1124 Apr, [facility] [id number] [place] [address] 19044- 2300 Apr, [facility] [id number] [place] [address] 26532- 5528 Apr, [facility] [address], [place] [address]- 5648 Apr, Essential hypertension, benign 401.1 ; Morbid obesity 278.01 ; Anxiety state, unspecified 300.00 ; Panic disorder without agoraphobia 300.01 ; Social phobia 300.23 and Chronic pain 338.29 [facility] [address], [place] [address]- 5550 Mar, [facility] [id number] [address]- 1291 Mar, [facility] [address], [place] [address]- 2731 Mar, [facility] [id number], [place] [address] Mar, [facility] [id number] [place] [address]- [address]281 Mar, Social phobia 300.23 and Panic disorder without agoraphobia 300.01 [facility] [id number] [place] [address]- 5044 Mar, [facility] [id number] [place] [address]- 9908 February, [facility] [id number] [place] [address]- 7789 February, Major depression, recurrent 296.30 and No condition on [place] II V71.09 [facility] [id number] [place] [address] 60[address]- 1239 February, [facility] [id number] [place] [address]777- 4146 February, Panic disorder without agoraphobia 300.01 ; Social phobia 300.23 and Morbid obesity 278.01 [facility] [id number], [place] [address] Jan, [facility] [id number], [place] [address] Jan, [facility] [id number] [address] Dec, [facility] [id number] [address] Dec, [facility] [id number] [place] [address] 239[address]- 1068 Dec, [facility] [id number], [place] [address] Dec, [facility] [id number] [place] [address] 34204- 0250 Dec, [facility] [id number], [place] [address] Dec, [facility] [address] [facility] [id number] [address] Dec, [facility] [id number], [place] [address] Dec, [facility] [id number], [place] [address] Dec, [facility] [address], [place] [address] Dec, [facility] [id number], [place] [address] Dec, [facility] [id number], [place] [address] Dec, [facility] [id number], [place] [address] Dec, [facility] [id number], [place] [address] Dec, [facility] [id number], [place] [address] Dec, [facility] [id number], [place] [address] Dec, IMMUNIZATIONS No Known Immunizations SOCIAL HISTORY Never Assessed REASON FOR VISIT Requests return call PLAN OF CARE VITAL SIGNS MEDICATIONS No Known Medications RESULTS No Results PROCEDURES No Known [...]
--- OUTSIDE RECORDS SUMMARY | 2018-11-30 17:27 | XMS REPORT ---
Author Author YONAS BELLE [facility] Address [address] [place] [address] Care Team Providers Care Russian Language Professor Name Role Phone YONAS BELLE Unavailable PROBLEMS Type Condition ICD9-CM Code [id number] Code Onset Dates Condition Status SNOMED Code Problem Type 2 diabetes mellitus with diabetic chronic kidney disease E11.22 Active 21092727 Problem Mixed hyperlipidemia E78.2 Active 197262779 Problem Primary insomnia F51.01 Active 6325034 Problem Major depressive disorder, recurrent, in full remission F33.42 Active 178259747 Problem Lymphedema I89.0 Active 505023969 Problem BMI 50.0-59.9, adult Z68.43 Active 835610536 Problem Constipation, unspecified constipation type K59.00 Active 64154033 Problem Chronic systolic congestive heart failure I50.22 Active 632800742 Problem Stasis dermatitis of both legs I87.2 Active 67539581 Problem Abnormal liver function test R94.5 Active 629865574 Problem Panic disorder F41.0 Active 018541764 Problem Controlled substance agreement terminated Z91.14 Active 239671300 Problem Cardiomegaly I51.7 Active 0118341 Problem Degenerative disc disease at L5-S1 level M51.36 Active 90280315 Problem BPH (benign prostatic hyperplasia) N40.0 Active 145900119 Problem Chronic pain G89.29 Active 49840264 Problem Dysthymic disorder F34.1 Active 66406369 Problem HTN (hypertension) I10 Active 57018965 Problem Mild episode of recurrent major depressive disorder F33.0 Active 850502322 ALLERGIES No Information ENCOUNTERS Encounter Location Date Diagnosis [facility] [address] [facility] [id number] [place] [address] Apr, Type 2 diabetes mellitus with diabetic chronic kidney disease E11.22 ; Chronic pain G89.29 ; Major depressive disorder, recurrent, in full remission F33.42 ; HTN (hypertension) I10 ; Chronic systolic congestive heart failure I50.22 ; Mixed hyperlipidemia E78.2 and BMI 45.0-49.9, adult Z68.42 [place] [id number] [place] [address] 78407- 6423 18 Apr, 2018 Type 2 diabetes mellitus with diabetic chronic kidney disease E11.22 [place] [id number] [place] [address] 72084- 5393 17 Apr, 2018 Medicare annual wellness visit, [...] vaccine Z28.21 and Encounter for immunization Z23 [address] [address]- [address] Apr, [place] [id number] [place] [address] 10989- 2299 Mar, Type 2 diabetes mellitus with diabetic chronic kidney disease E11.22 [place] [id number] [place] [address] 77842- 0999 Mar, Chronic pain G89.29 [place] [id number] [place] [address] 59613- 2647 February, Chronic pain G89.29 ; Abnormal liver function test R94.5 and Degenerative disc disease at L5-S1 level M51.36 [place] [address] [place] [id number] [place] [address] 91036- 0906 Jan, [place] [address] [place] [id number] [place] [address] 83824- 9632 Jan, [address] [place] [id number] [place] [address] 04808- 6565 Jan, [facility] [address] [address]- 5617 Jan, Abnormal liver function test R94.5 ; Dysthymic disorder F34.1 and Chronic pain G89.29 [facility] [address] 82111- 2673 Dec, [facility] [address] 16796- 4578 Dec, HTN (hypertension) I10 ; BMI 45.0-49.9, adult Z68.42 ; Chronic pain G89.29 ; Primary insomnia F51.01 ; Mixed hyperlipidemia E78.2 ; Dysthymic disorder F34.1 ; Type 2 diabetes mellitus with diabetic chronic kidney disease E11.22 ; Stasis dermatitis of both legs I87.2 and Chronic systolic congestive heart failure I50.22 [place] [address] 91692- 5658 Dec, Chronic pain G89.29 [facility] [address] [address] -[address] Dec, Lymphedema I89.0 and Chronic systolic congestive heart failure I50.22 [facility] [address] [place] [id number] [place] [address] 98875- 4249 Dec, [facility] [address] [place] [id number] [place] [address] 04545- 8279 Nov, Type 2 diabetes mellitus with diabetic chronic kidney disease E11.22 [facility] [address] 89574- 7432 Nov, Chronic pain G89.29 and Dysthymic disorder F34.1 [facility] [address] [place] [id number] [place] [address] 24776- 0384 Nov, [facility] [address] 82340- 8215 30 Oct, 2017 HTN (hypertension) I10 ; Chronic pain G89.29 ; BMI 45.0-49.9 , adult Z68.42 ; Primary insomnia F51.01 ; Mixed hyperlipidemia E78.2 ; Dysthymic disorder F34.1 ; Type 2 diabetes mellitus with diabetic chronic kidney disease E11.22 ; Chronic congestive heart failure, unspecified congestive heart failure type I50.9 ; Acute non-recurrent maxillary sinusitis J01.00 and BMI 50.0-59.9, adult Z68.43 [place] [address] [place] [id number] [place] [address] 13944- 1076 17 Oct, 2017 HTN (hypertension) I10 and Dysthymic disorder F34.1 [place] [address] [place] [id number] [place] [address] 96143- 6088 Oct, [place] [address] 20912- 5684 Oct, HTN (hypertension) I10 [place] [address] [place] [id number] [place] [address] 84552- 5928 Oct, Chronic pain G89.29 [place] [address] [place] [id number] [place] [address] 91243- 0438 Sep, [place] [address] [place] [id number] [place] [address] 13868- 4354 Sep, HTN (hypertension) I10 ; Chronic pain G89.29 ; BMI 45.0-49.9 , adult Z68.42 ; Primary insomnia F51.01 ; Mixed hyperlipidemia E78.2 ; Dysthymic disorder F34.1 and Type 2 diabetes mellitus with diabetic chronic kidney disease E11.22 [place] [address] [place] [id number] [place] [address] 85978- 8456 18 Sep, 2017 Chronic pain G89.29 [place] [address] [place] [id number] [place] [address] 01047- 0660 Sep, Acute on chronic heart failure, unspecified heart failure type I50.9 [place] [address] [place] [address]- 5289 Sep, Acute on chronic heart failure, unspecified heart failure type I50.9 ; Type 2 diabetes mellitus with diabetic chronic kidney disease E11.22 and BMI 50.0-59.9, adult Z68.43 [facility] [address] [place] [id number] [place] [address] 50005- 0933 Sep, Acute on chronic heart failure, unspecified heart failure type I50.9 ; HTN (hypertension) I10 and Type 2 diabetes mellitus with diabetic chronic kidney disease E11.22 [place] [address] [place] [id number] [place] [address] 91492- 9955 Aug, Acute on chronic heart failure, unspecified heart failure type I50.9 ; HTN (hypertension) I10 ; Type 2 diabetes mellitus with diabetic chronic kidney disease E11.22 ; Cellulitis of right lower extremity L03.115 and BMI 50.0-59.9, adult Z68.43 [facility] [address] [place] [id number] [place] [address] 51624 -1547 Aug, Acute upper respiratory infection, unspecified J06.9 ; Other viral agents as the cause of diseases classified elsewhere B97.89 ; Constipation, unspecified constipation type K59.00 ; BMI 50.0-59.9, adult Z68.43 and BMI 60.0-69.9, adult Z68.44 [place] [address] [place] [id number] [place] [address] 53652- 0271 Aug, Chronic pain G89.29 [place] [address] [place] [id number] [place] [address] 61928- 3021 Jul, Chronic pain G89.29 [place] [address] [place] [id number] [place] [address] 39226- 6630 Jul, Chronic pain G89.29 [place] [address] [place] [id number] [place] [address] 97695- 4370 Jun, Chronic pain G89.29 [place] [address] [place] [id number] [place] [address] 23294- 6888 Jun, [place] [id number] [place] [address] 22834- 3483 06 Jun, 2017 Chronic pain G89.29 [place] [address] [place] [id number] [place] [address] 66870- 9994 May, Chronic pain G89.29 and Type 2 diabetes mellitus with diabetic chronic kidney disease E11.22 [place] [address] [place] [id number] [place] [address] 70015- 3273 16 May, 2017 [place] [address] [place] [id number] [place] [address] 54751- 5668 May, Chronic pain G89.29 and Anxiety F41.9 [place] [id number] [place] [address] 63178- 9805 May, Type 2 diabetes mellitus with diabetic chronic kidney disease E11.22 ; Social phobia F40.10 ; Morbid obesity E66.01 ; Chronic pain G89.29 ; HTN (hypertension) I10 ; Degenerative disc disease at L5-S1 level M51.36 ; BPH (benign prostatic hyperplasia) N40.0 ; Pain in right knee M25.561 and 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 [place] [address] [place] [id number] [place] [address] 19750- 6926 Apr, Anxiety F41.9 [place] [id number] [place] [address] 25603- 3374 Apr, [place] [address] [place] [id number] [place] [address] 04246- 7800 Mar, [place] [address] [place] [id number] [place] [address] 96957- 9272 Mar, Edema, unspecified type R60.9 and Anxiety F41.9 [place] [address] [place] [id number] [place] [address] 95723- 4311 Mar, Social phobia F40.10 ; Mixed obsessional thoughts and acts F42.2 and Mild episode of recurrent major depressive disorder F33.[id number] [place] [address] 56974- 2289 Mar, Degenerative disc disease at L5-S1 level M51.36 [place] [address] [place] [id number] [place] [address] 70700- 3733 Mar, [place] [address] [place] [id number] [place] [address] 24851- 6816 Mar, [place] [address] [place] [id number] [place] [address] 88320- 5983 Mar, [place] [address] [place] [id number] [place] [address] 65184- 8947 February, Morbid obesity E66.01 ; Anxiety F41.9 ; Degenerative disc disease at L5-S1 level M51.36 ; BPH (benign prostatic hyperplasia) N40.0 ; Social phobia F40.10 ; HTN (hypertension) I10 ; Edema, unspecified type R60.9 and Screening cholesterol level Z13.220 [place] [address] [place] [id number] [place] [address] 63121- 7132 February, Social phobia, generalized F40.11 [place] [address] [place] [id number] [place] [address] 66067- 6126 February, Chronic pain G89.29 [place] [address] [place] [id number] [place] [address] 97304- 6488 February, [place] [address] [place] [id number] [place] [address] 27636- 9276 Jan, Chronic pain G89.29 [place] [address] [place] [id number] [place] [address] 09640- 7507 Jan, Panic disorder [episodic paroxysmal anxiety] without agoraphobia F41.0 [place] [address] [place] [id number] [place] [address] 24511- 7637 Dec, Morbid obesity E66.01 ; Anxiety F41.9 ; Chronic pain G89.29 ; HTN (hypertension) I10 ; BPH (benign prostatic hyperplasia) N40.0 ; Generalized edema R60.1 and Cough R05 [facility] [address] [place] [id number] [place] [address] 29109 2546 14 Nov, 2016 Chronic pain G89.29 [facility] [address] [place] [id number] [place] [address] 37688 2546 03 Nov, 2016 Social phobia, generalized F40.11 and Mild episode of recurrent major depressive disorder F33.0 [facility] [address] [place] [id number] [place] [address] 83329 2546 17 Oct, 2016 Chronic pain G89.29 [facility] [address] [place] [id number] [place] [address] 00602 2546 16 Oct, 2016 Social phobia, generalized F40.11 [facility] [address] [place] [id number] [place] [address] 48717 2546 Sep, [facility] [address] [place] [id number] [place] [address] 89813 2546 Sep, [facility] [address] [place] [id number] [place] [address] 69988 2546 Sep, [facility] [address] [place] [id number] [place] [address] 01146 2546 Sep, [facility] [address] [place] [id number] [place] [address] 22080 2546 Sep, [facility] [address] [place] [id number] [place] [address] 71559 2546 Sep, Social phobia, generalized F40.11 and Mild episode of recurrent major depressive disorder F33.0 [facility] [id number] [place] [address] 22284 2546 Sep, [facility] [address] [place] [id number] [place] [address] 18772 2546 Aug, [facility] [address] [place] [id number] [place] [address] 77573 2546 Aug, [facility] [address] [place] [id number] [place] [address] 24613- 1638 17 Aug, 2016 Bronchitis J40 [facility] [address] [place] [id number] [place] [address] 02461- 5894 15 Aug, 2016 [facility] [address] [place] [id number] [place] [address] 90555- 6317 10 Aug, 2016 Osteoarthritis of knee, unspecified M17.9 [facility] [address] [place] [id number] [place] [address] 14843- 9173 09 Aug, 2016 Morbid obesity E66.01 ; Chronic pain G89.29 ; Anxiety F41.9 ; Social phobia F40.10 ; HTN (hypertension) I10 ; Social phobia, generalized F40.11 ; Acute upper respiratory infection, unspecified J06.9 and Other viral agents as the cause of diseases classified elsewhere B97.89 [facility] [address] [place] [id number] [place] [address] 00606- 2876 08 Aug, 2016 Social phobia, generalized F40.11 and Dysthymic disorder F34.1 [facility] [address] [place] [id number] [place] [address] 90083- 7000 Jul, [facility] [address] [place] [id number] [place] [address] 26446- 0940 Jun, [facility] [address] [place] [id number] [place] [address] 66755- 9369 May, [facility] [address] [place] [id number] [place] [address] 68744- 8138 May, [facility] [address] [place] [id number] [place] [address] 24216- 7443 May, [facility] [address] [place] [id number] [place] [address] 98844- 4308 May, [facility] [address] [place] [id number] [place] [address] 73103- 2418 May, [facility] [address] [place] [id number] [place] [address] 14792- 9052 May, [facility] [address] [address]- 0722 May, [facility] [address] [place] [address] 86106- 4743 Apr, [facility] [address] [place] [id number] [place] [address] 04599- 0224 Apr, Chondromalacia, right knee M94.261 [facility] [address] [place] [id number] [place] [address] 49808- 5932 Apr, Pain in unspecified hip M25.559 [place] [address] [place] [id number] [place] [address] 37341- 0121 Mar, Social phobia, unspecified F40.10 and Pain in unspecified hip M25.559 [place] [address] [place] [id number] [place] [address] 94063- 4011 February, [facility] [address] [place] [id number] [place] [address] 10885- 6025 February, Social phobia F40.10 [place] [address] [place] [id number] [place] [address] 12687- 5981 February, Morbid obesity E66.01 ; Chronic pain G89.29 ; Social phobia F40.10 ; Pelvic pain in male R10.2 ; HTN (hypertension) I10 ; Degenerative disc disease at L5-S1 level M51.36 ; BPH (benign prostatic hyperplasia) N40.0 and Pain in right knee M25.561 [facility] [address] [address]- 0761 Jan, [facility] [address] [place] [id number] [place] [address] 86930- 0814 Jan, [facility] [address] [address]- 7482 Jan, [facility] [address] [place] [id number] [place] [address] 04613- 2657 Dec, [facility] [id number] [place] [address] 57506- 8236 Dec, [facility] [address] [place] [id number] [place] [address] 24244- 7693 Dec, [facility] [address] [place] [id number] [place] [address] 89657 -5139 Nov, Strep pharyngitis J02.0 ; Influenza A J10.1 and Cough R05 [facility] [address] [place] [id number] [place] [address] 04381- 7636 Nov, [facility] [address] [place] [id number] [place] [address] 61404- 4197 Nov, [facility] [address] [place] [id number] [place] [address] 78972- 1851 Oct, HTN (hypertension) I10 ; Morbid obesity E66.01 ; Anxiety F41.9 ; Social phobia F40.10 ; Panic disorder F41.0 ; Degenerative disc disease at L5-S1 level M51.36 and Hypercholesterolemia E78.0 [facility] [address] [place] [id number] [place] [address] 20932- 9877 Oct, Panic disorder [episodic paroxysmal anxiety] without agoraphobia F41.0 and Social phobia, generalized F40.11 [facility] [id number] [place] [address] 10105- 9599 Oct, [facility] [address] [place] [id number] [place] [address] 58927- 4778 Sep, [facility] [address] [place] [id number] [place] [address] 83752- 3789 Sep, [facility] [address] [place] [id number] [place] [address] 80908- 4488 Sep, [facility] [address] [place] [id number] [place] [address] 10690- 6801 Sep, [facility] [id number] [place] [address] 70377- 0800 Aug, [facility] [address] [place] [id number] [place] [address] 48100- 5702 Aug, [facility] [address] [place] [id number] [place] [address] 63485- 0399 Aug, [facility] [address] 67231- 5869 Aug, Social phobia F40.10 and Panic disorder F41.0 [facility] [address] [id number] [place] [address] 34577- 8102 Aug, [facility] [address] [id number] [place] [address] 64720- 5944 Aug, [facility] [id number] [place] [address] 00751- 0158 Aug, [facility] [id number] [place] [address] 40175- 8526 Aug, [facility] [address] [id number] [place] [address] 20756- 1874 Jul, [facility] [address] [id number] [place] [address] 37749- 1802 Jul, Morbid obesity E66.01 ; Chronic pain G89.29 ; Anxiety F41.9 ; Social phobia F40.10 ; Panic disorder F41.0 ; Pelvic pain in male R10.2 ; Insomnia G47.00 and HTN (hypertension) I10 [facility] [address] [id number] [place] [address] 68423- 4886 Jul, [facility] [id number] [place] [address] 27100- 5378 Jul, [facility] [id number] [place] [address] 81012- 5989 Jun, Degenerative disc disease 722.6 [facility] [address], [place] [address]- 0707 Jun, Pain in joint, pelvic region and thigh 719.45 ; Morbid obesity 278.01 ; Essential hypertension, benign 401.1 and Constipation 564.00 [facility] [address], [place] [address]- 6106 May, [facility] [id number] [place] [address] 11676- 0374 May, [facility] [id number] [place] [address] 09345- 9558 May, [facility] [id number] [place] [address] 68541- 5978 May, [facility] [id number] [place] [address] 75456- 2350 May, [facility] [id number] [place] [address] 39393- 6596 May, [facility] [id number] [place] [address] 10968- 1870 May, Essential hypertension, benign 401.1 ; Anxiety state, unspecified 300.00 ; Panic disorder without agoraphobia 300.01 ; Social phobia 300.23 ; Morbid obesity 278.01 ; Other chronic pain 338.29 and Insomnia 780.52 [facility] [id number] [place] [address] 65508- 4280 May, Essential hypertension 401.9 [facility] [id number] [place] [address] 62699- 6342 May, Pain in joint, pelvic region and thigh 719.45 [facility] [id number] [place] [address] 83193- 4515 May, Essential hypertension, benign 401.1 [facility] [address], [place] [address]- 7413 May, Panic disorder without agoraphobia 300.01 and Social phobia 300.23 [facility] [address], [place] [address]- 6615 May, [facility] [id number] [place] [address] 02371- 7819 May, [facility] [id number] [address]- 6181 Apr, Chronic pain 338.29 [facility] [id number] [place] [address]- [address] Apr, [facility] [id number] [place] [address]- [address] Apr, [facility] [id number] [place] [address]- 8840 Apr, [facility] [id number] [place] [address]- 9979 Apr, [facility] [id number] [place] [address]- 6049 Apr, [facility] [id number] [place] [address]- [address] Apr, [facility] [id number] [place] [address]- [address] Apr, [facility] [id number], [place] [address] Apr, Essential hypertension, benign 401.1 ; Morbid obesity 278.01 ; Anxiety state, unspecified 300.00 ; Panic disorder without agoraphobia 300.01 ; Social phobia 300.23 and Chronic pain 338.29 [facility] [id number], [place] [address] Mar, [facility] [id number] [address] Mar, [facility] [id number], [place] [address] Mar, [facility] [id number], [place] [address] Mar, [facility] [id number] [place] [address]- 8841 Mar, Social phobia 300.23 and Panic disorder without agoraphobia 300.01 [facility] [id number] [place] [address]- 2467 Mar, [facility] [id number] [place] [id number]- [id number] February, [facility] [id number] [place] [id number]- [id number] February, Major depression, recurrent 296.30 and No condition on [place] II V71.09 [facility] [id number] [place] [id number]- [id number] February, [facility] [id number] [place] [address] [id number]- 8866 February, Panic disorder without agoraphobia 300.01 ; Social phobia 300.23 and Morbid obesity 278.01 [facility] [id number] [address] Jan, [facility] [id number] [address] Jan, [facility] [id number] [address] Dec, [facility] [id number] [address] Dec, [facility] [id number] [place] [address] [id number]- [id number] Dec, [facility] [id number] [address] Dec, [facility] [id number] [place] [address]- 8969 Dec, [facility] [id number] [address] Dec, [facility] [address] [facility] [id number] [address] Dec, [facility] [id number] [address] Dec, [facility] [id number], [place] [address] Dec, [facility] [id number] [place] [address] Dec, [facility] [id number] [place] [address] Dec, [facility] [id number] [address] Dec, [facility] [id number] [place] [address] Dec, [facility] [id number] [address] Dec, [facility] [id number], [place] [address] Dec, [facility] [id number] [address] Dec, IMMUNIZATIONS No Known Immunizations SOCIAL HISTORY Never Assessed REASON FOR VISIT Lab results PLAN OF CARE VITAL SIGNS MEDICATIONS No [...]
--- OUTSIDE RECORDS SUMMARY | 2018-11-30 17:27 | XMS REPORT ---
Author Author YONAS BELLE [facility] Address [address] [place] [address] Care Team Providers Care Engineer Third Assistant Name Role Phone YONAS BELLE Unavailable PROBLEMS Type Condition ICD9-CM Code EDZ48-UK Code Onset Dates Condition Status SNOMED Code Problem Type 2 diabetes mellitus with diabetic chronic kidney disease E11.22 Active 98803368 Problem Mixed hyperlipidemia E78.2 Active 828058998 Problem Primary insomnia F51.01 Active 2119951 Problem Major depressive disorder, recurrent, in full remission F33.42 Active 183560495 Problem Lymphedema I89.0 Active 409907268 Problem BMI 50.0-59.9, adult Z68.43 Active 995971013 Problem Constipation, unspecified constipation type K59.00 Active 86385017 Problem Chronic systolic congestive heart failure I50.22 Active 088470600 Problem Stasis dermatitis of both legs I87.2 Active 85391361 Problem Abnormal liver function test R94.5 Active 734287380 Problem Panic disorder F41.0 Active 958208285 Problem Controlled substance agreement terminated Z91.14 Active 913077416 Problem Cardiomegaly I51.7 Active 0781334 Problem Degenerative disc disease at L5-S1 level M51.36 Active 74244141 Problem BPH (benign prostatic hyperplasia) N40.0 Active 425888641 Problem Chronic pain G89.29 Active 19056273 Problem Dysthymic disorder F34.1 Active 68630625 Problem HTN (hypertension) I10 Active 14371407 Problem Mild episode of recurrent major depressive disorder F33.0 Active 776271434 ALLERGIES Substance Reaction Event Type Date Status Wellbutrin Unknown Non Drug Allergy Dec, Active ENCOUNTERS Encounter Location Date Diagnosis [facility] [address] [facility] [id number] [address] Apr, Medicare annual wellness visit, initial Z00.00 [...] vaccine Z28.21 and Encounter for immunization Z23 [place] [address] [address]- [address]682 Apr, [address] [address]- 1298 Mar, Type 2 diabetes mellitus with diabetic chronic kidney disease E11.22 [place] [id number] [place] [address] 80142- 9019 Mar, Chronic pain G89.29 [place] [address] 96373- 6493 February, Chronic pain G89.29 ; Abnormal liver function test R94.5 and Degenerative disc disease at L5-S1 level M51.36 [place] [address] [place] [id number] [place] [address] 49155- 0305 Jan, [place] [address] [place] [id number] [place] [address] 47496- 9305 Jan, [place] [address] [place] [id number] [place] [address] 94987- 4865 Jan, [place] [address] [place] [id number] [place] [address] 14284- 3783 Jan, Abnormal liver function test R94.5 ; Dysthymic disorder F34.1 and Chronic pain G89.29 [place] [address] [place] [id number] [place] [address] 95328- 0105 Dec, [place] [address] 05204- 3295 Dec, HTN (hypertension) I10 ; BMI 45.0-49.9, adult Z68.42 ; Chronic pain G89.29 ; Primary insomnia F51.01 ; Mixed hyperlipidemia E78.2 ; Dysthymic disorder F34.1 ; Type 2 diabetes mellitus with diabetic chronic kidney disease E11.22 ; Stasis dermatitis of both legs I87.2 and Chronic systolic congestive heart failure I50.22 [place] [address] [place] [id number] [place] [address] 01362- 5865 12 Dec, 2017 Chronic pain G89.29 [facility] [address] [place] [id number] [place] [address] 91126 -3204 04 Dec, 2017 Lymphedema I89.0 and Chronic systolic congestive heart failure I50.22 [place] [address] [place] [id number] [place] [address] 15041- 4882 Dec, [place] [address] 47314- 2142 Nov, Type 2 diabetes mellitus with diabetic chronic kidney disease E11.22 [place] [address] [place] [id number] [place] [address] 62643- 0844 Nov, Chronic pain G89.29 and Dysthymic disorder F34.1 [place] [address] [place] [id number] [place] [address] 60746- 0180 Nov, [place] [address] [place] [id number] [place] [address] 19411- 2632 Oct, HTN (hypertension) I10 ; Chronic pain G89.29 ; BMI 45.0-49.9 , adult Z68.42 ; Primary insomnia F51.01 ; Mixed hyperlipidemia E78.2 ; Dysthymic disorder F34.1 ; Type 2 diabetes mellitus with diabetic chronic kidney disease E11.22 ; Chronic congestive heart failure, unspecified congestive heart failure type I50.9 ; Acute non-recurrent maxillary sinusitis J01.00 and BMI 50.0-59.9, adult Z68.43 [place] [address] [place] [id number] [place] [address] [place] [address]- 4682 Oct, HTN (hypertension) I10 and Dysthymic disorder F34.1 [place] [address] [place] [id number] [place] [address] 01405- 1753 Oct, [place] [address] [place] [id number] [place] [address] 38040- 4013 Oct, HTN (hypertension) I10 [place] [address] [place] [id number] [place] [address] 44784- 2136 Oct, Chronic pain G89.29 [place] [address] [place] [id number] [place] [address] 83309- 3477 Sep, [place] [address] [place] [id number] [place] [address] 65975- 4568 Sep, HTN (hypertension) I10 ; Chronic pain G89.29 ; BMI 45.0-49.9 , adult Z68.42 ; Primary insomnia F51.01 ; Mixed hyperlipidemia E78.2 ; Dysthymic disorder F34.1 and Type 2 diabetes mellitus with diabetic chronic kidney disease E11.22 [place] [address] [place] [address] 35702- 5065 18 Sep, 2017 Chronic pain G89.29 [place] [address] [place] [address] 03726- 6073 Sep, Acute on chronic heart failure, unspecified heart failure type I50.9 [place] [address] [place] [address] 39729- 2185 Sep, Acute on chronic heart failure, unspecified heart failure type I50.9 ; Type 2 diabetes mellitus with diabetic chronic kidney disease E11.22 and BMI 50.0-59.9, adult Z68.43 [place] [address] [place] [address] 04319- 8181 Sep, Acute on chronic heart failure, unspecified heart failure type I50.9 ; HTN (hypertension) I10 and Type 2 diabetes mellitus with diabetic chronic kidney disease E11.22 [place] [address] [place] [id number] [place] [address] 00336- 2735 Aug, Acute on chronic heart failure, unspecified heart failure type I50.9 ; HTN (hypertension) I10 ; Type 2 diabetes mellitus with diabetic chronic kidney disease E11.22 ; Cellulitis of right lower extremity L03.115 and BMI 50.0-59.9, adult Z68.43 [facility] [address] [place] [id number] [place] [address] 16602 -5192 Aug, Acute upper respiratory infection, unspecified J06.9 ; Other viral agents as the cause of diseases classified elsewhere B97.89 ; Constipation, unspecified constipation type K59.00 ; BMI 50.0-59.9, adult Z68.43 and BMI 60.0-69.9, adult Z68.44 [place] [address] [place] [id number] [place] [address] 58696- 3259 Aug, Chronic pain G89.29 [place] [address] [place] [id number] [place] [address] 97158- 2050 Jul, Chronic pain G89.29 [place] [address] [place] [id number] [place] [address] 38238- 4554 Jul, Chronic pain G89.29 [place] [address] [place] [id number] [place] [address] 42602- 4785 Jun, Chronic pain G89.29 [place] [address] [place] [id number] [place] [address] 06266- 3758 Jun, [facility] [address] [place] [id number] [place] [address] 33511- 9568 06 Jun, 2017 Chronic pain G89.29 [place] [address] [place] [id number] [place] [address] 29498- 2763 May, Chronic pain G89.29 and Type 2 diabetes mellitus with diabetic chronic kidney disease E11.22 [place] [address] [place] [id number] [place] [address] 90132- 9296 16 May, 2017 [place] [address] 36500- 0470 11 May, 2017 Chronic pain G89.29 and Anxiety F41.9 [place] [address] 72665- 2256 May, Type 2 diabetes mellitus with diabetic chronic kidney disease E11.22 ; Social phobia F40.10 ; Morbid obesity E66.01 ; Chronic pain G89.29 ; HTN (hypertension) I10 ; Degenerative disc disease at L5-S1 level M51.36 ; BPH (benign prostatic hyperplasia) N40.0 ; Pain in right knee M25.561 and 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 02688- 3891 Apr, Anxiety F41.[address] 57609- 1710 Apr, [address] 31123- 4326 Mar, [place] [address] 87190- 1593 Mar, Edema, unspecified type R60.9 and Anxiety F41.9 [place] [id number] [place] [address] 14350- 2755 Mar, Social phobia F40.10 ; Mixed obsessional thoughts and acts F42.2 and Mild episode of recurrent major depressive disorder F33.[address] 30010- 7275 Mar, Degenerative disc disease at L5-S1 level M51.36 [place] [address] 65059- 0181 Mar, [address] 33930- 0251 Mar, [address] 08000- 2219 Mar, [place] [address] [place] [id number] [place] [address] 95670- 1894 February, Morbid obesity E66.01 ; Anxiety F41.9 ; Degenerative disc disease at L5-S1 level M51.36 ; BPH (benign prostatic hyperplasia) N40.0 ; Social phobia F40.10 ; HTN (hypertension) I10 ; Edema, unspecified type R60.9 and Screening cholesterol level Z13.220 [place] [address] 38870- 6979 February, Social phobia, generalized F40.[address] 11817- 6167 February, Chronic pain G89.29 [place] [address] 22395- 9643 February, [address] 63729- 3916 Jan, Chronic pain G89.29 [place] [address] 69167- 1577 Jan, Panic disorder [episodic paroxysmal anxiety] without agoraphobia F41.0 [place] [id number] [place] [address] 51350- 0795 Dec, Morbid obesity E66.01 ; Anxiety F41.9 ; Chronic pain G89.29 ; HTN (hypertension) I10 ; BPH (benign prostatic hyperplasia) N40.0 ; Generalized edema R60.1 and Cough R05 [place] [address] [place] [id number] [place] [address] 25515- 9662 Nov, Chronic pain G89.[address] 70036- 7871 Nov, Social phobia, generalized F40.11 and Mild episode of recurrent major depressive disorder F33.[address] 75890- 2608 Oct, Chronic pain G89.29 [facility] [address] [address] Oct, Social phobia, generalized F40.11 [facility] [id number] [place] [address] 06767- 3108 Sep, [facility] [id number] [place] [address] 71848- 1182 Sep, [facility] [address] [place] [id number] [place] [address] 53952- 8313 Sep, [facility] [address] [place] [id number] [place] [address] 61033- 9684 Sep, [facility] [address] [place] [id number] [place] [address] 37783- 4289 Sep, [facility] [address] [place] [id number] [place] [address] 40851- 4102 Sep, Social phobia, generalized F40.11 and Mild episode of recurrent major depressive disorder F33.0 [facility] [address] [place] [address] 22257- 7144 Sep, [facility] [address] [place] [id number] [place] [address] 73596- 6014 Aug, [facility] [id number] [place] [address] 89981- 2440 Aug, [facility] [address] [place] [id number] [place] [address] 19676- 9137 Aug, Bronchitis J40 [facility] [id number] [place] [address] 84741- 4711 15 Aug, 2016 [facility] [address] [place] [id number] [place] [address] 77587- 7117 Aug, Osteoarthritis of knee, unspecified M17.9 [facility] [address] [place] [address] 37832- 4047 09 Nov, 2016 Morbid obesity E66.01 ; Chronic pain G89.29 ; Anxiety F41.9 ; Social phobia F40.10 ; HTN (hypertension) I10 ; Social phobia, generalized F40.11 ; Acute upper respiratory infection, unspecified J06.9 and Other viral agents as the cause of diseases classified elsewhere B97.89 [facility] [address] [place] [id number] [place] [address] 97672- 0526 Aug, Social phobia, generalized F40.11 and Dysthymic disorder F34.1 [facility] [address] [place] [id number] [place] [address] 87403- 0533 Jul, [facility] [address] [place] [id number] [place] [address] 34800- 8073 Jun, [facility] [address] [place] [id number] [place] [address] 92974- 5077 May, [facility] [address] [place] [id number] [place] [address] 96070- 2377 May, [facility] [address] [place] [id number] [place] [address] 80080- 9086 May, [facility] [address] [place] [id number] [place] [address] 69427- 3149 May, [facility] [address] [place] [id number] [place] [address] 17868- 7155 May, [facility] [address] [place] [id number] [place] [address] 46214- 1340 May, [facility] [address] [place] [id number] [place] [address] 90469- 2501 May, [facility] [address] [place] [id number] [place] [address] 75101- 4324 Apr, [facility] [address] [place] [id number] [place] [address] 99305191- 4318 Apr, Chondromalacia, right knee M94.261 [facility] [address] 41113- 6118 Apr, Pain in unspecified hip M25.559 [facility] [address] 92127- 7805 Mar, Social phobia, unspecified F40.10 and Pain in unspecified hip M25.559 [facility] [address] 05400- 9794 February, [facility] [address] 73929- 6927 February, Social phobia F40.10 [facility] [address] 55841- 9523 February, Morbid obesity E66.01 ; Chronic pain G89.29 ; Social phobia F40.10 ; Pelvic pain in male R10.2 ; HTN (hypertension) I10 ; Degenerative disc disease at L5-S1 level M51.36 ; BPH (benign prostatic hyperplasia) N40.0 and Pain in right knee M25.561 [facility] [address] 90884- 2570 Jan, [facility] [address] 70521- 4457 Jan, [facility] [address] [place] [id number] [place] [address] 17142- 1532 Jan, [facility] [address] [place] [id number] [place] [address] 99412- 5705 Dec, [facility] [address] 91000- 9766 Dec, [facility] [address] 88155- 9074 Dec, [facility] [address] [place] [id number] [place] [address] 20228 -8061 Nov, Strep pharyngitis J02.0 ; Influenza A J10.1 and Cough R05 [facility] [address] [place] [id number] [place] [address] 46480- 0293 Nov, [facility] [address] 12558- 0181 Nov, [facility] [address] 60244- 7776 Oct, HTN (hypertension) I10 ; Morbid obesity E66.01 ; Anxiety F41.9 ; Social phobia F40.10 ; Panic disorder F41.0 ; Degenerative disc disease at L5-S1 level M51.36 and Hypercholesterolemia E78.0 [place] [address] 34349- 2746 Oct, Panic disorder [episodic paroxysmal anxiety] without agoraphobia F41.0 and Social phobia, generalized F40.11 [place] [address] 91003- 3957 Oct, [facility] [address] [place] [id number] [place] [address] 70459- 0253 Sep, [facility] [address] 39330- 6269 Sep, [facility] [address] 01266- 5363 Sep, [facility] [address] [place] [id number] [place] [address] 78948- 5070 Sep, [facility] [address] [place] [id number] [place] [address] 30143- 5014 Aug, [facility] [address] 48345- 8014 Aug, [facility] [address] [place] [id number] [place] [address] 31868- 4983 Aug, [facility] [address] [place] [id number] [place] [address] 92390- 8865 Aug, Social phobia F40.10 and Panic disorder F41.0 [facility] [address] [address]- 8748 Aug, [facility] [address] [place] [id number] [place] [address] 09198- 2135 Aug, [facility] [address] [place] [id number] [place] [address] 06629- 1302 Aug, [facility] [address] 17892- 7578 Aug, [facility] [address] [place] [id number] [place] [address] 36361- 9022 Jul, [facility] [address] [place] [id number] [place] [address] 15646- 3009 Jul, Morbid obesity E66.01 ; Chronic pain G89.29 ; Anxiety F41.9 ; Social phobia F40.10 ; Panic disorder F41.0 ; Pelvic pain in male R10.2 ; Insomnia G47.00 and HTN (hypertension) I10 [facility] [address] [place] [id number] [place] [address] 54213- 5403 Jul, [facility] [address] [place] [id number] [place] [address] 75694- 1685 Jul, [facility] [address] [place] [id number] [place] [address] 80626- 9200 Jun, Degenerative disc disease 722.6 [facility] [address] [place] [id number] [place] [address] 90272- 2787 Jun, Pain in joint, pelvic region and thigh 719.45 ; Morbid obesity 278.01 ; Essential hypertension, benign 401.1 and Constipation 564.00 [facility] [address] [place] [id number] [place] [address] 45423- 3203 May, [facility] [address] [place] [id number] [place] [address] 34768- 9222 May, [facility] [address] [place] [address] [address]- 5076 May, [facility] [address] [place] [id number] [place] [address] 86847- 7809 May, [facility] [address] [place] [id number] [place] [address] 03723- 9664 May, [facility] [address] [place] [id number] [place] [address] 48847- 0896 May, [facility] [address] [place] [id number] [place] [address] 36796- 0931 May, Essential hypertension, benign 401.1 ; Anxiety state, unspecified 300.00 ; Panic disorder without agoraphobia 300.01 ; Social phobia 300.23 ; Morbid obesity 278.01 ; Other chronic pain 338.29 and Insomnia 780.52 [facility] [address] [place] [id number] [place] [address] 78684- 6892 May, Essential hypertension 401.9 [facility] [address] [place] [id number] [place] [address] 29986- 1857 May, Pain in joint, pelvic region and thigh 719.45 [facility] [address] [place] [id number] [place] [address] 51118- 7959 May, Essential hypertension, benign 401.1 [facility] [address] [place] [id number] [place] [address] 57430- 8212 May, Panic disorder without agoraphobia 300.01 and Social phobia 300.23 [facility] [address] [place] [address] 17107- 5523 May, [facility] [address] [place] [id number] [place] [address] 76769- 5423 May, [facility] [address] [place] [id number] [place] [address] 18854- 2786 Apr, Chronic pain 338.29 [facility] [address] [place] [id number] [place] [address] 84035- 8453 Apr, [facility] [address] [address]- 6508 Apr, 2014 [facility] [address] [address]- 8628 Apr, [facility] [address] [address]- 7158 Apr, 2014 [facility] [id number] [place] [address] 56928- 9985 Apr, 2014 [facility] [address] [address]- 2283 Apr, [facility] [id number] [place] [address] 42278- 1106 Apr, [facility] [address] [address]- 4572 Apr, Essential hypertension, benign 401.1 ; Morbid obesity 278.01 ; Anxiety state, unspecified 300.00 ; Panic disorder without agoraphobia 300.01 ; Social phobia 300.23 and Chronic pain 338.29 [facility] [address] [address]- 1883 Mar, [facility] [address] [address]- 0727 Mar, [facility] [address], [place] [address]- 6514 Mar, [facility] [address] [address]- 5798 Mar, [facility] [address] [address]- 1332 Mar, Social phobia 300.23 and Panic disorder without agoraphobia 300.01 [facility] [address] [address]- 8629 Mar, [facility] [address] [address]- 2849 February, [facility] [id number] [place] [address] 182847- 0732 February, Major depression, recurrent 296.30 and No condition on [place] II V71.09 [facility] [address] [id number] [place] [address]- [address] February, [facility] [id number] [place] [address] [id number]- 6[address] February, Panic disorder without agoraphobia 300.01 ; Social phobia 300.23 and Morbid obesity 278.01 [facility] [id number] [place] [address]- 9896 Jan, [facility] [id number] [place] [address] 09129- 9236 Jan, [facility] [id number] [place] [address]68- 5218 Dec, [facility] [id number] [address] Dec, [facility] [id number] [place] [address] [id number]- [address] Dec, [facility] [id number] [address] Dec, [facility] [id number] [address] Dec, [facility] [id number] [address] Dec, [facility] [id number] [place] [address] [id number]- 5271 Dec, [facility] [id number] [address] [address] Dec, [facility] [id number] [place] [address] [id number]- 8802 Dec, [facility] [address] [facility] [id number] [address] Dec, [facility] [id number] [address] Dec, [facility] [id number] [address] Dec, [facility] [id number] [address] Dec, [facility] [id number] [address] Dec, [facility] [id number] [address] Dec, [facility] [id number] [address] Dec, IMMUNIZATIONS No Known Immunizations SOCIAL HISTORY Never Assessed REASON FOR VISIT DM, states we wanted a follow up on [facility] drug screen and contract update PLAN OF CARE Activity Details Follow Up 3 Months Reason:DM Pain VITAL SIGNS Height 73 in 2018-01-03 Weight 375.1 lbs 2018-01-03 Temperature 98.0 degrees Fahrenheit 2018-01-03 Heart Rate 84 bpm 2018-01-03 Respiratory Rate 20 2018-01-03 BMI 49.48 kg/m2 2018-01-03 Blood pressure systolic 132 mmHg 2018-01-03 Blood pressure diastolic 74 mmHg 2018-01-03 MEDICATIONS Medication Instructions Dosage Frequency Start Date End Date Duration Status Hydrocodone-Acetaminophen 10-325 MG Orally 4 times a day 1 tablet 6h 13 DecJan, 28 days Active Xanax 0.5 MG Orally Twice a day 1 tablet 12h 28 days Active Blood Glucose Monitor System w/Device as directed Active Spironolactone 25 MG Orally Once a day 1 tablet 24h Mar, 30 days Active Levemir FlexTouch 100 UNIT/ML Subcutaneous Once a day Inject 10 units 24h Active Trazodone HCl 50 MG Orally at HS PRN 1 tablet 30 Active Blood Glucose Test - as directed Active Pravastatin Sodium 10 mg Orally Once a day 1 tablet 24h 30 day(s) Active Lisinopril 20 MG Orally Once a day 1 tablet 24h Active Metoprolol Succinate ER 50 MG TAKE ONE TABLET BY MOUTH ONCE DAILY Active Potassium Chloride Kristen ER 20 meq Orally Once a day 2 tablets 24h Active Lasix 80 MG Orally Once a day 2 tablets 24h Active RESULTS No Results PROCEDURES Procedure Date Ordered Result Body Site DRUG TEST PRSMV CHEM ANLYZR January 03, 2018 LAB NOT BILLED BY [facility] January 03, 2018 FQ VISIT ESTABLISHED PATIENT January 03, 2018 ELVIRA DOYLE* January 03, 2018 INSTRUCTIONS MEDICATIONS ADMINISTERED No Known Medications [...] Controlled substance agreement terminated Medical History Cardiomegaly Surgical History Heart Cath-no stent placement 10/2017 Surgical History Pacemaker placed 01/2018 Hospitalization History ER visit due to panic attacks Hospitalization History chest pain Hospitalization History ER -edema 08/2017
--- OUTSIDE RECORDS SUMMARY | 2018-11-30 17:28 | XMS REPORT ---
Author Author YONAS BELLE [facility] Address [address] [place] [address] Care Team Providers Care Wagon Driver Name Role Phone YONAS BELLE Unavailable PROBLEMS Type Condition ICD9-CM Code TRJ09-VI Code Onset Dates Condition Status SNOMED Code Problem Mild episode of recurrent major depressive disorder F33.0 Active 967460726 Problem Primary insomnia F51.01 Active 9259744 Problem Type 2 diabetes mellitus with diabetic chronic kidney disease E11.22 Active 22847856 Problem Lymphedema I89.0 Active 719203473 Problem Chronic systolic congestive heart failure I50.22 Active 439735374 Problem Constipation, unspecified constipation type K59.00 Active 67269070 Problem Mixed hyperlipidemia E78.2 Active 162890233 Problem Stasis dermatitis of both legs I87.2 Active 49732392 Problem BMI 50.0-59.9, adult Z68.43 Active 242571744 Problem Abnormal liver function test R94.5 Active 708448127 Problem Cardiomegaly I51.7 Active 6689757 Problem Controlled substance agreement terminated Z91.14 Active 103925142 Problem HTN (hypertension) I10 Active 97260206 Problem Degenerative disc disease at L5-S1 level M51.36 Active 35968437 Problem Panic disorder F41.0 Active 195700127 Problem BPH (benign prostatic hyperplasia) N40.0 Active 940850191 Problem Chronic pain G89.29 Active 02474977 Problem Dysthymic disorder F34.1 Active 55352866 ALLERGIES No Information ENCOUNTERS Encounter Location Date Diagnosis [facility] [address] [facility] [id number] [address] Apr, [facility] [address] [address] Apr, [facility] [address] [place] [id number] [address] Mar, Type 2 diabetes mellitus with diabetic chronic kidney disease E11.22 [place] [id number] [place] [address] 21632- 7053 Mar, Chronic pain G89.29 [place] [id number] [place] [address] 41094- 0707 February, Chronic pain G89.29 ; Abnormal liver function test R94.5 and Degenerative disc disease at L5-S1 level M51.36 [place] [id number] [place] [address] 02405- 3140 Jan, [place] [id number] [place] [address] 60353- 7129 Jan, [place] [id number] [place] [address] 93931- 4048 Jan, [place] [id number] [place] [address] 20082- 7333 Jan, Abnormal liver function test R94.5 ; Dysthymic disorder F34.1 and Chronic pain G89.29 [place] [id number] [place] [address] 38933- 4805 Dec, [place] [id number] [place] [address] 18696- 9993 Dec, HTN (hypertension) I10 ; BMI 45.0-49.9, adult Z68.42 ; Chronic pain G89.29 ; Primary insomnia F51.01 ; Mixed hyperlipidemia E78.2 ; Dysthymic disorder F34.1 ; Type 2 diabetes mellitus with diabetic chronic kidney disease E11.22 ; Stasis dermatitis of both legs I87.2 and Chronic systolic congestive heart failure I50.22 [place] [id number] [place] [address] 26545- 3613 Dec, Chronic pain G89.29 [facility] [id number] [place] [address] 58625 -1686 Dec, Lymphedema I89.0 and Chronic systolic congestive heart failure I50.22 [place] [id number] [place] [address] 65046- 4140 Dec, [place] [id number] [place] [address] 32216- 5912 Nov, Type 2 diabetes mellitus with diabetic chronic kidney disease E11.22 [place] [id number] [place] [address] 01278- 7760 Nov, Chronic pain G89.29 and Dysthymic disorder F34.1 [place] [id number] [place] [address] 68434- 4951 Nov, [place] [address] 06874- 9032 Oct, HTN (hypertension) I10 ; Chronic pain G89.29 ; BMI 45.0-49.9 , adult Z68.42 ; Primary insomnia F51.01 ; Mixed hyperlipidemia E78.2 ; Dysthymic disorder F34.1 ; Type 2 diabetes mellitus with diabetic chronic kidney disease E11.22 ; Chronic congestive heart failure, unspecified congestive heart failure type I50.9 ; Acute non-recurrent maxillary sinusitis J01.00 and BMI 50.0-59.9, adult Z68.43 [place] [id number] [place] [address] 67184- 7651 Oct, HTN (hypertension) I10 and Dysthymic disorder F34.1 [place] [id number] [place] [address] 29310- 6655 Oct, [place] [id number] [place] [address] 26139- 7518 Oct, HTN (hypertension) I10 [place] [id number] [place] [address] 80399- 3968 Oct, Chronic pain G89.29 [place] [id number] [place] [address] 84003- 3495 Sep, [place] [id number] [place] [address] 95631- 3144 Sep, HTN (hypertension) I10 ; Chronic pain G89.29 ; BMI 45.0-49.9 , adult Z68.42 ; Primary insomnia F51.01 ; Mixed hyperlipidemia E78.2 ; Dysthymic disorder F34.1 and Type 2 diabetes mellitus with diabetic chronic kidney disease E11.22 [place] [id number] [place] [address] 90498- 0204 Sep, Chronic pain G89.29 [place] [address] 18071- 9912 Sep, Acute on chronic heart failure, unspecified heart failure type I50.[address] 87036- 4554 Sep, Acute on chronic heart failure, unspecified heart failure type I50.9 ; Type 2 diabetes mellitus with diabetic chronic kidney disease E11.22 and BMI 50.0-59.9, adult Z68.43 [place] [id number] [place] [address] 38926- 1564 Sep, Acute on chronic heart failure, unspecified heart failure type I50.9 ; HTN (hypertension) I10 and Type 2 diabetes mellitus with diabetic chronic kidney disease E11.22 [place] [id number] [place] [address] 65116- 6425 Aug, Acute on chronic heart failure, unspecified heart failure type I50.9 ; HTN (hypertension) I10 ; Type 2 diabetes mellitus with diabetic chronic kidney disease E11.22 ; Cellulitis of right lower extremity L03.115 and BMI 50.0-59.9, adult Z68.43 [facility] [id number] [place] [address] 56658 -6659 Aug, Acute upper respiratory infection, unspecified J06.9 ; Other viral agents as the cause of diseases classified elsewhere B97.89 ; Constipation, unspecified constipation type K59.00 ; BMI 50.0-59.9, adult Z68.43 and BMI 60.0-69.9, adult Z68.44 [place] [id number] [place] [address] 51636- 9464 Aug, Chronic pain G89.29 [place] [id number] [place] [address] 74426- 5157 Jul, Chronic pain G89.29 [place] [id number] [place] [address] 48467- 3473 Jul, Chronic pain G89.29 [place] [id number] [place] [address] 83820- 7709 Jun, Chronic pain G89.29 [place] [id number] [place] [address] 37211- 9469 18 Jun, 2017 [place] [id number] [place] [address] 78536- 3358 06 Jun, 2017 Chronic pain G89.29 [place] [id number] [place] [address] 28142- 8869 May, Chronic pain G89.29 and Type 2 diabetes mellitus with diabetic chronic kidney disease E11.22 [place] [id number] [place] [address] 85972- 9406 May, [place] [id number] [place] [address] 55287- 3468 May, Chronic pain G89.29 and Anxiety F41.9 [place] [id number] [place] [address] 96293- 8543 May, Type 2 diabetes mellitus with diabetic chronic kidney disease E11.22 ; Social phobia F40.10 ; Morbid obesity E66.01 ; Chronic pain G89.29 ; HTN (hypertension) I10 ; Degenerative disc disease at L5-S1 level M51.36 ; BPH (benign prostatic hyperplasia) N40.0 ; Pain in right knee M25.561 and 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 [place] [id number] [place] [address] 99604- 2930 Apr, Anxiety F41.9 [place] [id number] [place] [address] 39447- 0296 Apr, [place] [address] 78290- 1872 Mar, [place] [id number] [place] [address] 01347- 3812 Mar, Edema, unspecified type R60.9 and Anxiety F41.9 [place] [id number] [place] [address] 97969- 6868 Mar, Social phobia F40.10 ; Mixed obsessional thoughts and acts F42.2 and Mild episode of recurrent major depressive disorder F33.0 [place] [id number] [place] [address] 07509- 9449 Mar, Degenerative disc disease at L5-S1 level M51.[address] 51539- 3475 Mar, [place] [id number] [place] [address] 48658- 2356 Mar, [place] [id number] [place] [address] 83093- 6597 Mar, [place] [id number] [place] [address] 47517- 5165 February, Morbid obesity E66.01 ; Anxiety F41.9 ; Degenerative disc disease at L5-S1 level M51.36 ; BPH (benign prostatic hyperplasia) N40.0 ; Social phobia F40.10 ; HTN (hypertension) I10 ; Edema, unspecified type R60.9 and Screening cholesterol level Z13.220 [place] [id number] [place] [address] 76555- 4755 February, Social phobia, generalized F40.11 [place] [id number] [place] [address] 53370- 0536 February, Chronic pain G89.29 [place] [id number] [place] [address] 22486- 5722 February, [facility] [id number] [place] [address] 84414- 6798 Jan, Chronic pain G89.29 [facility] [id number] [place] [address] 64153- 8634 04 Jan, 2017 Panic disorder [episodic paroxysmal anxiety] without agoraphobia F41.0 [place] [id number] [place] [address] 52654- 4344 13 Dec, 2016 Morbid obesity E66.01 ; Anxiety F41.9 ; Chronic pain G89.29 ; HTN (hypertension) I10 ; BPH (benign prostatic hyperplasia) N40.0 ; Generalized edema R60.1 and Cough R05 [place] [address] [place] [id number] [place] [address] 20369- 8212 14 Nov, 2016 Chronic pain G89.29 [place] [id number] [place] [address] 32448- 5380 Nov, Social phobia, generalized F40.11 and Mild episode of recurrent major depressive disorder F33.0 [place] [id number] [place] [address] 14077- 2492 Oct, Chronic pain G89.29 [place] [id number] [place] [address] 53151- 3300 Oct, Social phobia, generalized F40.11 [facility] [id number] [place] [address] 34238- 7817 Sep, [place] [id number] [place] [address] 09785- 9281 Sep, [place] [id number] [place] [address] 53373- 1017 Sep, [place] [id number] [place] [address] 72548- 7004 Sep, [place] [id number] [place] [address] 62433- 8813 Sep, [place] [id number] [place] [address] 76661- 9699 Sep, Social phobia, generalized F40.11 and Mild episode of recurrent major depressive disorder F33.0 [place] [id number] [place] [address] 95909- 2338 Sep, [place] [id number] [place] [address] 51381- 4437 Aug, [place] [id number] [place] [address] 80678- 5476 Aug, [place] [id number] [place] [address] 29048- 9762 17 Aug, 2016 Bronchitis J40 [place] [address] 90132- 4343 15 Aug, 2016 [place] [id number] [place] [address] 30996- 0799 10 Aug, 2016 Osteoarthritis of knee, unspecified M17.9 [place] [id number] [place] [address] 36123- 8256 09 Aug, 2016 Morbid obesity E66.01 ; Chronic pain G89.29 ; Anxiety F41.9 ; Social phobia F40.10 ; HTN (hypertension) I10 ; Social phobia, generalized F40.11 ; Acute upper respiratory infection, unspecified J06.9 and Other viral agents as the cause of diseases classified elsewhere B97.89 [place] [id number] [place] [address] 51301- 8244 08 Aug, 2016 Social phobia, generalized F40.11 and Dysthymic disorder F34.1 [place] [id number] [place] [address] 40021- 3210 Jul, [place] [id number] [place] [address] 66918- 5025 Jun, [facility] [address] [facility] [id number] [address] May, [facility] [address] [facility] [id number] [address]- 4285 May, [facility] [address] [facility] [id number] [address]- 9363 May, [facility] [id number] [place] [address] 24721- 3519 May, [facility] [address] [facility] [id number] [address]- 9120 May, [facility] [address] [facility] [id number] [address]- 4666 May, [facility] [id number] [address]- 3678 May, [facility] [id number] [place] [address] 39056- 9946 Apr, [facility] [address] [id number] [address]- 6987 Apr, Chondromalacia, right knee M94.261 [facility] [address] [address]- 8930 Apr, Pain in unspecified hip M25.559 [facility] [address] [address]- 2626 Mar, Social phobia, unspecified F40.10 and Pain in unspecified hip M25.559 [facility] [id number] [address]- 3725 February, [facility] [address] [address]- 8641 February, Social phobia F40.10 [facility] [address] [address]- 1380 03 May, 2016 Morbid obesity E66.01 ; Chronic pain G89.29 ; Social phobia F40.10 ; Pelvic pain in male R10.2 ; HTN (hypertension) I10 ; Degenerative disc disease at L5-S1 level M51.36 ; BPH (benign prostatic hyperplasia) N40.0 and Pain in right knee M25.561 [facility] [id number] [place] [address] 82618- 8951 [address], [address] [facility] [address] 90716- 8638 Jan, [facility] [id number] [place] [address] 34932- 2663 Jan, [place] [address] 09943- 0621 Dec, [facility] [id number] [place] [address] 19234- 7480 Dec, [facility] [address] 59990- 1674 Dec, [facility] [id number] [place] [address] 95491 -0112 Nov, Strep pharyngitis J02.0 ; Influenza A J10.[address] [facility] [id number] [place] [address] 78667- 9568 Nov, [facility] [address] 32291- 6164 Nov, [facility] [id number] [place] [address] 58386- 2717 Oct, HTN (hypertension) I10 ; Morbid obesity E66.01 ; Anxiety F41.9 ; Social phobia F40.10 ; Panic disorder F41.0 ; Degenerative disc disease at L5-S1 level M51.36 [address] [facility] [id number] [place] [address] 39546- 9861 Oct, Panic disorder [episodic paroxysmal anxiety] without agoraphobia F41.0 and Social phobia, generalized F40.11 [facility] [id number] [place] [address] 09590- 7104 Oct, [facility] [id number] [place] [address] 43193- 4139 Sep, [facility] [id number] [place] [address] 63162- 3757 Sep, [facility] [id number] [place] [address] 51502- 2665 Sep, [facility] [id number] [place] [address] 21092- 5614 Sep, [facility] [id number] [place] [address] 27293- 4696 Aug, [facility] [id number] [place] [address] 13435- 2090 Aug, [facility] [id number] [place] [address] 01210- 6983 Aug, [facility] [id number] [place] [address] 65483- 0080 Aug, Social phobia F40.10 [address] Panic disorder F41.0 [facility] [id number] [place] [address] 92792- 8004 Aug, [facility] [id number] [place] [address] 01563- 4499 Aug, [facility] [id number] [place] [address] 15058- 6712 Aug, [facility] [id number] [place] [address] 52470- 5201 Aug, [facility] [id number] [place] [address] 10344- 9739 Jul, [facility] [id number] [place] [address] 17679- 2064 Jul, Morbid obesity E66.01 ; Chronic pain G89.29 ; Anxiety F41.9 ; Social phobia F40.10 ; Panic disorder F41.0 ; Pelvic pain in male R10.2 ; Insomnia G47.00 and HTN (hypertension) I10 [facility] [id number] [place] [address] 07945- 5354 Jul, [facility] [address] 54254- 7915 Jul, [facility] [id number] [place] [address] 87865- 0766 Jun, Degenerative disc disease 722.6 [facility] [id number] [place] [address] 09380- 3905 Jun, Pain in joint, pelvic region and thigh 719.45 ; Morbid obesity 278.01 ; Essential hypertension, benign 401.[address] [facility] [id number] [place] [address] 28593- 1967 May, [facility] [address] 91373- 4758 May, [facility] [id number] [place] [address] 17629- 6069 May, [facility] [id number] [place] [address] 88527- 1277 May, [facility] [id number] [place] [address] 16912- 1095 May, [facility] [address] 63728- 4577 May, [facility] [id number] [place] [address] 44534- 4357 May, Essential hypertension, benign 401.1 ; Anxiety state, unspecified 300.00 ; Panic disorder without agoraphobia 300.01 ; Social phobia 300.23 ; Morbid obesity 278.01 ; Other chronic pain 338.[address] [facility] [id number] [place] [address] 14492- 2543 May, Essential hypertension 401.9 [facility] [id number] [place] [address] 17392 2546 May, Pain in joint, pelvic region and thigh 719.45 [facility] [id number] [place] [address] 48049 2545 May, Essential hypertension, benign 401.1 [facility] [id number] [place] [address] 61516- 0084 May, Panic disorder without agoraphobia 300.01 [address] Social phobia 300.23 [facility] [id number] [place] [address] 85251- 1735 May, [facility] [id number] [place] [address] 01254- 5986 May, [facility] [id number] [place] [address] 57696- 5924 Apr, Chronic pain 338.29 [facility] [id number] [place] [address] 15162- 1918 Apr, [facility] [address] [address] 2542 Apr, [facility] [address] [address] 2549 Apr, [facility] [address] [address] 2547 Apr, [facility] [id number] [place] [address] 09823- 2541 Apr, [facility] [address] [address]- 2542 Apr, [facility] [id number] [place] [address] 60657- 7063 Apr, [facility] [id number] [place] [address] 82411- 3482 Apr, Essential hypertension, benign 401.1 ; Morbid obesity 278.01 ; Anxiety state, unspecified 300.00 ; Panic disorder without agoraphobia 300.01 ; Social phobia 300.23 [address] [facility] [id number] [place] [address]110- 3298 Mar, [facility] [id number] [place] [address] 7[address]- [address]17 Mar, [facility] [address] [address] Mar, [facility] [id number] [place] [address] 77886- 6619 Mar, [facility] [address] [address]- [address] Mar, Social phobia 300.23 and Panic disorder without agoraphobia 300.01 [facility] [id number] [place] [address] 64190- 9883 Mar, [facility] [id number] [place] [address] [phone]- [address]34 February, [facility] [id number] [place] [address] 01511- 9478 February, Major depression, recurrent 296.30 and No condition on [place] V71.09 [facility] [id number] [place] [address] 43395- 5246 February, [facility] [address] [address] February, Panic disorder without agoraphobia 300.01 ; Social phobia 300.[address] [facility] [id number] [place] [address] 6[address]- [address]054 Jan, [facility] [place] [facility] [address] [id number] [place] [address] 13 Jan, 2015 [facility] [place] [facility] [address] [id number] [place] [address] 27 Dec, 2014 [facility] [place] [facility] [address] [id number] [place] [address]36 Dec, [facility] [place] [facility] [address] [id number] [place] [address]- [address]676 Dec, [facility] [place] [facility] [address] [id number] [place] [address]682 Dec, [facility] [place] [facility] [address] [id number] [place] [address]- [address]093 Dec, [facility] [place] [facility] [address] [id number] [place] [address] 8549 Dec, [facility] [place] [facility] [address] [id number] [place] [place] [address] Dec, [facility] [place] [facility] [address] [id number] [place] [address] Dec, [facility] [place] [facility] [address] [id number] [place] [address] Dec, [facility] [place] [facility] [address] [id number] [place] [address] Dec, [facility] [place] [facility] [address] [id number] [place] [address] Dec, [facility] [place] [facility] [address] [id number] [place] [address] Dec, [facility] [place] [facility] [address] [id number] [place] [address] Dec, [facility] [place] [facility] [address] [id number] [place] [address] Dec, [facility] [place] [facility] [address] [id number] [place] [address] Dec, [facility] [address] [facility] [id number] [place] [address] Dec, IMMUNIZATIONS No Known Immunizations SOCIAL HISTORY Never Assessed REASON FOR VISIT Controlled Med Refill 01/03 PLAN OF CARE VITAL SIGNS MEDICATIONS Unknown [...]
--- OUTSIDE RECORDS SUMMARY | 2018-11-30 17:28 | XMS REPORT ---
Author Author YONAS BELLE [facility] Address [address] [place] [address] Care Team Providers Care Oil Analyst Name Role Phone YONAS BELLE Unavailable PROBLEMS Type Condition ICD9-CM Code SDO57-DW Code Onset Dates Condition Status SNOMED Code Problem Mild episode of recurrent major depressive disorder F33.0 Active 043061706 Problem Primary insomnia F51.01 Active 7341342 Problem Type 2 diabetes mellitus with diabetic chronic kidney disease E11.22 Active 23126687 Problem Lymphedema I89.0 Active 407699155 Problem Chronic systolic congestive heart failure I50.22 Active 596921141 Problem Constipation, unspecified constipation type K59.00 Active 46776158 Problem Mixed hyperlipidemia E78.2 Active 464526409 Problem Stasis dermatitis of both legs I87.2 Active 75450794 Problem BMI 50.0-59.9, adult Z68.43 Active 505399975 Problem Abnormal liver function test R94.5 Active 445039872 Problem Cardiomegaly I51.7 Active 7148189 Problem Controlled substance agreement terminated Z91.14 Active 799668446 Problem HTN (hypertension) I10 Active 38069993 Problem Degenerative disc disease at L5-S1 level M51.36 Active 40576472 Problem Panic disorder F41.0 Active 223503522 Problem BPH (benign prostatic hyperplasia) N40.0 Active 212078711 Problem Chronic pain G89.29 Active 90222654 Problem Dysthymic disorder F34.1 Active 41290871 ALLERGIES No Information ENCOUNTERS Encounter Location Date Diagnosis [facility] [address] [facility] [id number] [address] Apr, [facility] [id number] [address] 4[address] Apr, [facility] [id number] [address] 5196 Mar, Type 2 diabetes mellitus with diabetic chronic kidney disease E11.22 [place] [id number] [place] [address] 79122- 1407 Mar, Chronic pain G89.29 [place] [id number] [place] [address] 91172- 0914 February, Chronic pain G89.29 ; Abnormal liver function test R94.5 and Degenerative disc disease at L5-S1 level M51.36 [place] [id number] [place] [address] 26095- 1789 Jan, [place] [id number] [place] [address] 63926- 8185 Jan, [place] [id number] [place] [address] 06774- 9550 Jan, [place] [id number] [place] [address] 62715- 7296 Jan, Abnormal liver function test R94.5 ; Dysthymic disorder F34.1 and Chronic pain G89.29 [place] [id number] [place] [address] 99883- 2382 Dec, [place] [id number] [place] [address] 11758- 7839 Dec, HTN (hypertension) I10 ; BMI 45.0-49.9, adult Z68.42 ; Chronic pain G89.29 ; Primary insomnia F51.01 ; Mixed hyperlipidemia E78.2 ; Dysthymic disorder F34.1 ; Type 2 diabetes mellitus with diabetic chronic kidney disease E11.22 ; Stasis dermatitis of both legs I87.2 and Chronic systolic congestive heart failure I50.22 [place] [id number] [place] [address] 23120- 1392 Dec, Chronic pain G89.29 [facility] [id number] [place] [address] 29313 -8034 Dec, Lymphedema I89.0 and Chronic systolic congestive heart failure I50.22 [place] [id number] [place] [address] 49847- 6629 Dec, [place] [id number] [place] [address] 14759- 5639 Nov, Type 2 diabetes mellitus with diabetic chronic kidney disease E11.22 [place] [id number] [place] [address] 03422- 0496 Nov, Chronic pain G89.29 and Dysthymic disorder F34.1 [place] [id number] [place] [address] 63482- 2404 Nov, [place] [address] 03892- 6710 Oct, HTN (hypertension) I10 ; Chronic pain G89.29 ; BMI 45.0-49.9 , adult Z68.42 ; Primary insomnia F51.01 ; Mixed hyperlipidemia E78.2 ; Dysthymic disorder F34.1 ; Type 2 diabetes mellitus with diabetic chronic kidney disease E11.22 ; Chronic congestive heart failure, unspecified congestive heart failure type I50.9 ; Acute non-recurrent maxillary sinusitis J01.00 and BMI 50.0-59.9, adult Z68.43 [place] [id number] [place] [address] 81836- 8799 Oct, HTN (hypertension) I10 and Dysthymic disorder F34.1 [place] [id number] [place] [address] 99772- 0245 Oct, [place] [id number] [place] [address] 54561- 3676 Oct, HTN (hypertension) I10 [place] [id number] [place] [address] 73547- 9636 Oct, Chronic pain G89.29 [place] [id number] [place] [address] 15791- 5090 Sep, [place] [id number] [place] [address] 51059- 2891 Sep, HTN (hypertension) I10 ; Chronic pain G89.29 ; BMI 45.0-49.9 , adult Z68.42 ; Primary insomnia F51.01 ; Mixed hyperlipidemia E78.2 ; Dysthymic disorder F34.1 and Type 2 diabetes mellitus with diabetic chronic kidney disease E11.22 [place] [id number] [place] [address] 24048- 6612 Sep, Chronic pain G89.29 [place] [address] 91031- 5430 Sep, Acute on chronic heart failure, unspecified heart failure type I50.[address] 30061- 1984 Sep, Acute on chronic heart failure, unspecified heart failure type I50.9 ; Type 2 diabetes mellitus with diabetic chronic kidney disease E11.22 and BMI 50.0-59.9, adult Z68.43 [place] [id number] [place] [address] 43570- 1104 Sep, Acute on chronic heart failure, unspecified heart failure type I50.9 ; HTN (hypertension) I10 and Type 2 diabetes mellitus with diabetic chronic kidney disease E11.22 [place] [id number] [place] [address] 49307- 1505 Aug, Acute on chronic heart failure, unspecified heart failure type I50.9 ; HTN (hypertension) I10 ; Type 2 diabetes mellitus with diabetic chronic kidney disease E11.22 ; Cellulitis of right lower extremity L03.115 and BMI 50.0-59.9, adult Z68.43 [facility] [id number] [place] [address] 30886 -2554 Aug, Acute upper respiratory infection, unspecified J06.9 ; Other viral agents as the cause of diseases classified elsewhere B97.89 ; Constipation, unspecified constipation type K59.00 ; BMI 50.0-59.9, adult Z68.43 and BMI 60.0-69.9, adult Z68.44 [place] [id number] [place] [address] 70594- 0492 Aug, Chronic pain G89.29 [place] [id number] [place] [address] 96728- 0741 Jul, Chronic pain G89.29 [place] [id number] [place] [address] 02584- 7673 Jul, Chronic pain G89.29 [place] [id number] [place] [address] 90801- 7835 Jun, Chronic pain G89.29 [place] [id number] [place] [address] 24903- 9215 18 Jun, 2017 [place] [id number] [place] [address] 39881- 8713 06 Jun, 2017 Chronic pain G89.29 [place] [id number] [place] [address] 60384- 5450 May, Chronic pain G89.29 and Type 2 diabetes mellitus with diabetic chronic kidney disease E11.22 [place] [id number] [place] [address] 97597- 9327 May, [place] [id number] [place] [address] 05103- 7058 May, Chronic pain G89.29 and Anxiety F41.9 [place] [id number] [place] [address] 47469- 3192 May, Type 2 diabetes mellitus with diabetic chronic kidney disease E11.22 ; Social phobia F40.10 ; Morbid obesity E66.01 ; Chronic pain G89.29 ; HTN (hypertension) I10 ; Degenerative disc disease at L5-S1 level M51.36 ; BPH (benign prostatic hyperplasia) N40.0 ; Pain in right knee M25.561 and 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 [place] [id number] [place] [address] 19460- 9188 Apr, Anxiety F41.9 [place] [id number] [place] [address] 26176- 6510 Apr, [place] [address] 32862- 0964 Mar, [place] [id number] [place] [address] 19578- 5500 Mar, Edema, unspecified type R60.9 and Anxiety F41.9 [place] [id number] [place] [address] 56579- 9988 Mar, Social phobia F40.10 ; Mixed obsessional thoughts and acts F42.2 and Mild episode of recurrent major depressive disorder F33.0 [place] [id number] [place] [address] 52679- 0234 Mar, Degenerative disc disease at L5-S1 level M51.[address] 75295- 2795 Mar, [place] [id number] [place] [address] 21849- 2500 Mar, [place] [id number] [place] [address] 63451- 3501 Mar, [place] [id number] [place] [address] 63632- 7426 February, Morbid obesity E66.01 ; Anxiety F41.9 ; Degenerative disc disease at L5-S1 level M51.36 ; BPH (benign prostatic hyperplasia) N40.0 ; Social phobia F40.10 ; HTN (hypertension) I10 ; Edema, unspecified type R60.9 and Screening cholesterol level Z13.220 [place] [id number] [place] [address] 26279- 2896 February, Social phobia, generalized F40.11 [place] [id number] [place] [address] 28264- 0950 February, Chronic pain G89.29 [place] [id number] [place] [address] 95819- 9954 February, [facility] [id number] [place] [address] 46927- 0549 Jan, Chronic pain G89.29 [facility] [id number] [place] [address] 79991- 8617 04 Jan, 2017 Panic disorder [episodic paroxysmal anxiety] without agoraphobia F41.0 [place] [id number] [place] [address] 73646- 0778 13 Dec, 2016 Morbid obesity E66.01 ; Anxiety F41.9 ; Chronic pain G89.29 ; HTN (hypertension) I10 ; BPH (benign prostatic hyperplasia) N40.0 ; Generalized edema R60.1 and Cough R05 [place] [id number] [place] [address] 44934- 8445 14 Nov, 2016 Chronic pain G89.29 [place] [id number] [place] [address] 98181- 2194 Nov, Social phobia, generalized F40.11 and Mild episode of recurrent major depressive disorder F33.0 [place] [id number] [place] [address] 15702- 6967 Oct, Chronic pain G89.29 [place] [id number] [place] [address] 82518- 0228 Oct, Social phobia, generalized F40.11 [facility] [id number] [place] [address] 83618- 4053 Sep, [place] [id number] [place] [address] 09050- 1951 Sep, [place] [id number] [place] [address] 08954- 8465 Sep, [place] [id number] [place] [address] 18913- 0857 Sep, [place] [id number] [place] [address] 73127- 7207 Sep, [place] [id number] [place] [address] 11487- 0222 Sep, Social phobia, generalized F40.11 and Mild episode of recurrent major depressive disorder F33.0 [place] [id number] [place] [address] 02835- 2727 Sep, [place] [id number] [place] [address] 09328- 6506 Aug, [place] [id number] [place] [address] 08077- 8590 Aug, [place] [id number] [place] [address] 28024- 5596 17 Aug, 2016 Bronchitis J40 [place] [address] 20541- 4247 15 Aug, 2016 [place] [id number] [place] [address] 95513- 9510 10 Aug, 2016 Osteoarthritis of knee, unspecified M17.9 [place] [id number] [place] [address] 51361- 8412 09 Aug, 2016 Morbid obesity E66.01 ; Chronic pain G89.29 ; Anxiety F41.9 ; Social phobia F40.10 ; HTN (hypertension) I10 ; Social phobia, generalized F40.11 ; Acute upper respiratory infection, unspecified J06.9 and Other viral agents as the cause of diseases classified elsewhere B97.89 [place] [id number] [place] [address] 89255- 3945 08 Aug, 2016 Social phobia, generalized F40.11 and Dysthymic disorder F34.1 [place] [id number] [place] [address] 11848- 9716 Jul, [place] [id number] [place] [address] 68004- 0722 Jun, [facility] [address] [facility] [id number], [place] [address]- 5774 May, [facility] [address] [facility] [id number], [place] [address]- 1876 May, [facility] [address] [facility] [id number], [place] [address]- 8445 May, [facility] [id number] [place] [address] 01975- 8854 May, [facility] [address] [facility] [id number], [place] [address]- 6127 May, [facility] [address] [facility] [id number], [place] [address]- 2972 May, [facility] [id number], [place] [address]- 7674 May, [facility] [address] [place] [address] 36384- 4398 Apr, [facility] [address] [id number], [place] [address]- 8808 Apr, Chondromalacia, right knee M94.261 [facility] [address], [place] [address]- 1319 Apr, Pain in unspecified hip M25.559 [facility] [address], [place] [address]- 2461 Mar, Social phobia, unspecified F40.10 and Pain in unspecified hip M25.559 [facility] [id number] [address]- 5168 February, [facility] [address], [place] [address]- 4949 February, Social phobia F40.10 [facility] [address], [place] [address]- 7596 03 May, 2016 Morbid obesity E66.01 ; Chronic pain G89.29 ; Social phobia F40.10 ; Pelvic pain in male R10.2 ; HTN (hypertension) I10 ; Degenerative disc disease at L5-S1 level M51.36 ; BPH (benign prostatic hyperplasia) N40.0 and Pain in right knee M25.561 [facility] [id number] [place] [address] 53072- 1999 14 Jan, 2016 [facility] [address] 73553- 7133 Jan, [facility] [id number] [place] [address] 95111- 4948 Jan, [place] [address] 69903- 1902 Dec, [facility] [id number] [place] [address] 85239- 3852 Dec, [facility] [address] 37283- 4154 Dec, [facility] IN [facility] [id number] [place] [address] 67999 -9998 Nov, Strep pharyngitis J02.0 ; Influenza A J10.1 and Cough R05 [facility] [id number] [place] [address] 85083- 3655 Nov, [facility] [address] 77495- 9887 Nov, [facility] [id number] [place] [address] 26732- 8702 Oct, HTN (hypertension) I10 ; Morbid obesity E66.01 ; Anxiety F41.9 ; Social phobia F40.10 ; Panic disorder F41.0 ; Degenerative disc disease at L5-S1 level M51.36 and Hypercholesterolemia E78.0 [facility] [id number] [place] [address] 95915- 4715 Oct, Panic disorder [episodic paroxysmal anxiety] without agoraphobia F41.0 and Social phobia, generalized F40.11 [facility] [id number] [place] [address] 72732- 1011 Oct, [facility] [id number] [place] [address] 68319- 3615 Sep, [facility] [id number] [place] [address] 24128- 7696 Sep, [facility] [id number] [place] [address] 73859- 9397 Sep, [facility] [id number] [place] [address] 15459- 8999 Sep, [facility] [id number] [place] [address] 55569- 8505 Aug, [facility] [id number] [place] [address] 34085- 6656 Aug, [facility] [id number] [place] [address] 07915- 8420 Aug, [facility] [id number] [place] [address] 29935- 3523 Aug, Social phobia F40.10 and Panic disorder F41.0 [facility] [id number] [place] [address] 64162- 0472 Aug, [facility] [id number] [place] [address] 94051- 6241 Aug, [facility] [id number] [place] [address] 56375- 3143 Aug, [facility] [id number] [place] [address] 65463- 3737 Aug, [facility] [id number] [place] [address] 71056- 5652 Jul, [facility] [id number] [place] [address] 47562- 7278 Jul, Morbid obesity E66.01 ; Chronic pain G89.29 ; Anxiety F41.9 ; Social phobia F40.10 ; Panic disorder F41.0 ; Pelvic pain in male R10.2 ; Insomnia G47.00 and HTN (hypertension) I10 [facility] [id number] [place] [address] 23143- 8073 Jul, [facility] [address] 66866- 4685 Jul, [facility] [id number] [place] [address] 95359- 6146 Jun, Degenerative disc disease 722.6 [facility] [id number] [place] [address] 93306- 4485 Jun, Pain in joint, pelvic region and thigh 719.45 ; Morbid obesity 278.01 ; Essential hypertension, benign 401.1 and Constipation 564.00 [facility] [id number] [place] [address] 25992- 7111 May, [facility] [address] 45815- 3070 May, [facility] [id number] [place] [address] 97821- 4657 May, [facility] [id number] [place] [address] 54007- 0226 May, [facility] [id number] [place] [address] 83750- 2516 May, [facility] [address] 16338- 0372 May, [facility] [id number] [place] [address] 44827- 5234 May, Essential hypertension, benign 401.1 ; Anxiety state, unspecified 300.00 ; Panic disorder without agoraphobia 300.01 ; Social phobia 300.23 ; Morbid obesity 278.01 ; Other chronic pain 338.29 and Insomnia 780.52 [facility] [id number] [place] [address] 01501- 2545 May, Essential hypertension 401.9 [facility] [id number] [place] [address] 44664 2546 May, Pain in joint, pelvic region and thigh 719.45 [facility] [id number] [place] [address] 18596 254 May, Essential hypertension, benign 401.1 [facility] [id number] [place] [address] 68534- 6509 May, Panic disorder without agoraphobia 300.01 and Social phobia 300.23 [facility] [id number] [place] [address] 37131- 2824 May, [facility] [id number] [place] [address] 77135- 4659 May, [facility] [id number] [place] [address] 81489- 5460 Apr, Chronic pain 338.29 [facility] [id number] [place] [address] 69344- 6120 Apr, [facility] [address], [place] [address]- 2540 Apr, [facility] [address], [place] [address]- 2545 Apr, [facility] [address], [place] [address] 2549 Apr, [facility] [id number] [place] [address] 54552- 2544 Apr, [facility] [address], [place] [address]- 2547 Apr, [facility] [id number] [place] [address] 53166- 0328 Apr, [facility] [id number] [place] [address] 07118- 0073 Apr, Essential hypertension, benign 401.1 ; Morbid obesity 278.01 ; Anxiety state, unspecified 300.00 ; Panic disorder without agoraphobia 300.01 ; Social phobia 300.23 and Chronic pain 338.29 [facility] [id number] [place] [address] 49079- 5419 Mar, [facility] [id number] [place] [address] 49433- 0957 Mar, [facility] [address] 21077- 8719 Mar, [facility] [id number] [place] [address] 24990- 9994 Mar, [facility] [address] 03549- 0219 Mar, Social phobia 300.23 and Panic disorder without agoraphobia 300.01 [facility] [id number] [place] [address] 51106- 9528 Mar, [facility] [id number] [place] [address] 34286- 5776 February, [facility] [id number] [place] [address] 39136- 9601 February, Major depression, recurrent 296.30 and No condition on [place] V71.09 [facility] [id number] [place] [address] 89249- 5520 February, [facility] [address] [address] February, Panic disorder without agoraphobia 300.01 ; Social phobia 300.23 and Morbid obesity 278.01 [facility] [id number] [place] [address] 99446- 4997 Jan, [facility] [place] [facility] [address] [id number] [place] [address] 13 Jan, 2015 [facility] [place] [facility] [address] [id number] [place] [address] 27 Dec, 2014 [facility] [place] [facility] [address] [id number] [place] [address] Dec, [facility] [place] [facility] [address] [id number] [place] [address] Dec, [facility] [place] [facility] [address] [id number] [place] [address] Dec, [facility] [place] [facility] [address] [id number] [place] [address]- [address] Dec, [facility] [place] [facility] [address] [id number] [place] [address]- [address] Dec, [facility] [place] [facility] [address] [id number] [place] [address]- [address]24 Dec, [facility] [place] [facility] [address] [id number] [place] [address]- [address] Dec, [facility] [place] [facility] [address] [id number] [place] [address]- 2085 Dec, [facility] [place] [facility] [address] [id number] [place] [address]- 2854 Dec, [facility] [place] [facility] [address] [id number] [place] [address]- 8476 Dec, [facility] [place] [facility] [address] [id number] [place] [address]- 6957 Dec, [facility] [place] [facility] [address] [id number] [place] [address]- [address]266 Dec, [facility] [place] [facility] [address] [id number] [place] [address]- 1536 Dec, [facility] [place] [facility] [address] [id number] [place] [id number] Dec, [facility] [address] [facility] [id number] [place], [place] [id number] Dec, IMMUNIZATIONS No Known Immunizations SOCIAL HISTORY Never Assessed REASON FOR VISIT Controlled Med Refill PLAN OF CARE VITAL SIGNS MEDICATIONS Unknown [...]
--- OUTSIDE RECORDS SUMMARY | 2018-11-30 17:29 | XMS REPORT ---
Author Author YONAS BELLE [facility] Address [address] [place] [address] Care Team Providers Care Survey Interviewer Name Role Phone YONAS BELLE Unavailable PROBLEMS Type Condition ICD9-CM Code YVD09-OJ Code Onset Dates Condition Status SNOMED Code Problem Mild episode of recurrent major depressive disorder F33.0 Active 431361188 Problem Primary insomnia F51.01 Active 3860194 Problem Type 2 diabetes mellitus with diabetic chronic kidney disease E11.22 Active 74257150 Problem Lymphedema I89.0 Active 290710839 Problem Chronic systolic congestive heart failure I50.22 Active 454793720 Problem Constipation, unspecified constipation type K59.00 Active 01140216 Problem Mixed hyperlipidemia E78.2 Active 031308294 Problem Stasis dermatitis of both legs I87.2 Active 85839154 Problem BMI 50.0-59.9, adult Z68.43 Active 110448834 Problem Abnormal liver function test R94.5 Active 521526166 Problem Cardiomegaly I51.7 Active 9918504 Problem Controlled substance agreement terminated Z91.14 Active 942867969 Problem HTN (hypertension) I10 Active 97587482 Problem Degenerative disc disease at L5-S1 level M51.36 Active 74811442 Problem Panic disorder F41.0 Active 900747617 Problem BPH (benign prostatic hyperplasia) N40.0 Active 742285304 Problem Chronic pain G89.29 Active 52926090 Problem Dysthymic disorder F34.1 Active 49605852 ALLERGIES No Information ENCOUNTERS Encounter Location Date Diagnosis [facility] [address] [facility] [id number] [address] Apr, [facility] [address] [address] Apr, [facility] [id number] [address] 5706 Mar, Type 2 diabetes mellitus with diabetic chronic kidney disease E11.22 [place] [address] [place] [address] 80584- 2761 Mar, Chronic pain G89.29 [place] [address] [place] [address] 92454- 7993 February, Chronic pain G89.29 ; Abnormal liver function test R94.5 and Degenerative disc disease at L5-S1 level M51.36 [place] [address] [place] [address] 95913- 0378 Jan, [place] [id number] [place] [address] 66729- 6630 Jan, [place] [id number] [place] [address] 46412- 7644 Jan, [place] [address] [place] [address] 26069- 9250 Jan, Abnormal liver function test R94.5 ; Dysthymic disorder F34.1 and Chronic pain G89.29 [place] [address] [place] [address] 06666- 9411 Dec, [place] [address] [place] [address] 41404- 6560 Dec, HTN (hypertension) I10 ; BMI 45.0-49.9, adult Z68.42 ; Chronic pain G89.29 ; Primary insomnia F51.01 ; Mixed hyperlipidemia E78.2 ; Dysthymic disorder F34.1 ; Type 2 diabetes mellitus with diabetic chronic kidney disease E11.22 ; Stasis dermatitis of both legs I87.2 and Chronic systolic congestive heart failure I50.22 [place] [address] [place] [address] 64838- 4198 Dec, Chronic pain G89.29 [facility] IN [facility] [address] [place] [address] 20184 -9656 Dec, Lymphedema I89.0 and Chronic systolic congestive heart failure I50.22 [place] [address] [place] [address] 96968- 4218 Dec, [place] [address] [place] [address] 60752- 1583 Nov, Type 2 diabetes mellitus with diabetic chronic kidney disease E11.22 [place] [address] [place] [address] 30254- 0107 Nov, Chronic pain G89.29 and Dysthymic disorder F34.1 [place] [address] [place] [address] 59493- 3923 Nov, [place] [address] 70669- 4248 Oct, HTN (hypertension) I10 ; Chronic pain G89.29 ; BMI 45.0-49.9 , adult Z68.42 ; Primary insomnia F51.01 ; Mixed hyperlipidemia E78.2 ; Dysthymic disorder F34.1 ; Type 2 diabetes mellitus with diabetic chronic kidney disease E11.22 ; Chronic congestive heart failure, unspecified congestive heart failure type I50.9 ; Acute non-recurrent maxillary sinusitis J01.00 and BMI 50.0-59.9, adult Z68.43 [place] [address] [place] [address] 79946- 9705 Oct, HTN (hypertension) I10 and Dysthymic disorder F34.1 [place] [address] [place] [address] 39592- 5984 Oct, [place] [address] [place] [address] 09482- 1577 Oct, HTN (hypertension) I10 [place] [address] [place] [address] 99964- 1576 Oct, Chronic pain G89.29 [place] [address] [place] [address] 05412- 4294 Sep, [place] [address] [place] [address] 12259- 8378 Sep, HTN (hypertension) I10 ; Chronic pain G89.29 ; BMI 45.0-49.9 , adult Z68.42 ; Primary insomnia F51.01 ; Mixed hyperlipidemia E78.2 ; Dysthymic disorder F34.1 and Type 2 diabetes mellitus with diabetic chronic kidney disease E11.22 [place] [address] [place] [address] 15979- 1830 Sep, Chronic pain G89.29 [place] [address] 48839- 2001 Sep, Acute on chronic heart failure, unspecified heart failure type I50.[address] 58389- 5861 Sep, Acute on chronic heart failure, unspecified heart failure type I50.9 ; Type 2 diabetes mellitus with diabetic chronic kidney disease E11.22 and BMI 50.0-59.9, adult Z68.43 [place] [address] [place] [address] 98085- 1066 Sep, Acute on chronic heart failure, unspecified heart failure type I50.9 ; HTN (hypertension) I10 and Type 2 diabetes mellitus with diabetic chronic kidney disease E11.22 [place] [address] [place] [address] 60503- 2886 Aug, Acute on chronic heart failure, unspecified heart failure type I50.9 ; HTN (hypertension) I10 ; Type 2 diabetes mellitus with diabetic chronic kidney disease E11.22 ; Cellulitis of right lower extremity L03.115 and BMI 50.0-59.9, adult Z68.43 [facility] [address] [place] [address] 33524 -8484 Aug, Acute upper respiratory infection, unspecified J06.9 ; Other viral agents as the cause of diseases classified elsewhere B97.89 ; Constipation, unspecified constipation type K59.00 ; BMI 50.0-59.9, adult Z68.43 and BMI 60.0-69.9, adult Z68.44 [place] [address] [place] [address] 04029- 4200 Aug, Chronic pain G89.29 [place] [address] [place] [address] 92760- 9651 Jul, Chronic pain G89.29 [place] [address] [place] [address] 58966- 9698 Jul, Chronic pain G89.29 [place] [address] [place] [address] 88026- 7856 Jun, Chronic pain G89.29 [place] [address] [place] [address] 95037- 4512 18 Jun, 2017 [place] [address] [place] [address] 90497- 8092 06 Jun, 2017 Chronic pain G89.29 [place] [address] [place] [address] 70795- 5547 May, Chronic pain G89.29 and Type 2 diabetes mellitus with diabetic chronic kidney disease E11.22 [place] [address] [place] [address] 17999- 6474 May, [place] [address] [place] [address] 90606- 0626 May, Chronic pain G89.29 and Anxiety F41.9 [place] [address] [place] [address] 03476- 5630 May, Type 2 diabetes mellitus with diabetic chronic kidney disease E11.22 ; Social phobia F40.10 ; Morbid obesity E66.01 ; Chronic pain G89.29 ; HTN (hypertension) I10 ; Degenerative disc disease at L5-S1 level M51.36 ; BPH (benign prostatic hyperplasia) N40.0 ; Pain in right knee M25.561 and 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 [place] [address] [place] [address] 00635- 7587 Apr, Anxiety F41.9 [place] [address] [place] [address] 82845- 0299 Apr, [place] [address] 64668- 3323 Mar, [place] [address] [place] [address] 46777- 8361 Mar, Edema, unspecified type R60.9 and Anxiety F41.9 [place] [address] [place] [address] 92828- 2037 Mar, Social phobia F40.10 ; Mixed obsessional thoughts and acts F42.2 and Mild episode of recurrent major depressive disorder F33.0 [place] [address] [place] [address] 83284- 4754 Mar, Degenerative disc disease at L5-S1 level M51.[address] 19412- 8141 Mar, [place] [address] [place] [address] 71279- 7849 Mar, [place] [id number] [place] [address] 64208- 8125 Mar, [place] [address] [place] [address] 99507- 1716 February, Morbid obesity E66.01 ; Anxiety F41.9 ; Degenerative disc disease at L5-S1 level M51.36 ; BPH (benign prostatic hyperplasia) N40.0 ; Social phobia F40.10 ; HTN (hypertension) I10 ; Edema, unspecified type R60.9 and Screening cholesterol level Z13.220 [place] [id number] [place] [address] 95070- 6580 February, Social phobia, generalized F40.11 [place] [id number] [place] [address] 37731- 6199 February, Chronic pain G89.29 [place] [address] [place] [address] 53222- 3228 February, [facility] [address] [place] [address] 52944- 7537 Jan, Chronic pain G89.29 [facility] [address] [place] [address] 68771- 2544 04 Jan, 2017 Panic disorder [episodic paroxysmal anxiety] without agoraphobia F41.0 [place] [address] [place] [address] 21457- 6251 13 Dec, 2016 Morbid obesity E66.01 ; Anxiety F41.9 ; Chronic pain G89.29 ; HTN (hypertension) I10 ; BPH (benign prostatic hyperplasia) N40.0 ; Generalized edema R60.1 and Cough R05 [place] [address] [place] [address] 14467- 8128 14 Nov, 2016 Chronic pain G89.29 [place] [address] [place] [address] 08216- 1412 Nov, Social phobia, generalized F40.11 and Mild episode of recurrent major depressive disorder F33.0 [place] [address] [place] [address] 35104- 4368 Oct, Chronic pain G89.29 [place] [address] [place] [address] 65967- 9300 Oct, Social phobia, generalized F40.11 [facility] [address] [place] [address] 84584- 5687 Sep, [place] [address] [place] [address] 17090- 3221 Sep, [place] [address] [place] [address] 89232- 8821 Sep, [place] [address] [place] [address] 46633- 2546 Sep, [place] [address] [place] [address] 28527- 3713 Sep, [place] [address] [place] [address] 43316- 1849 Sep, Social phobia, generalized F40.11 and Mild episode of recurrent major depressive disorder F33.0 [place] [address] [place] [address] 90049- 0788 Sep, [place] [address] [place] [address] 73437- 7778 Aug, [place] [address] [place] [address] 01093- 9958 Aug, [place] [address] [place] [address] 09155- 8742 17 Aug, 2016 Bronchitis J40 [place] [address] 61977- 2256 15 Aug, 2016 [place] [address] [place] [address] 73229- 1331 10 Aug, 2016 Osteoarthritis of knee, unspecified M17.9 [place] [address] [place] [address] 84688- 9099 09 Aug, 2016 Morbid obesity E66.01 ; Chronic pain G89.29 ; Anxiety F41.9 ; Social phobia F40.10 ; HTN (hypertension) I10 ; Social phobia, generalized F40.11 ; Acute upper respiratory infection, unspecified J06.9 and Other viral agents as the cause of diseases classified elsewhere B97.89 [place] [address] [place] [address] 04203- 0427 08 Aug, 2016 Social phobia, generalized F40.11 and Dysthymic disorder F34.1 [place] [address] [place] [address] 80502- 2567 Jul, [place] [address] [place] [address] 60262- 7990 Jun, [facility] [address] [facility] [id number], [place] [address]- 2970 May, [facility] [address] [facility] [id number], [place] [address]- 8203 May, [facility] [address] [facility] [id number], [place] [address]- 9986 May, [facility] [address] [place] [address] 75119- 3758 May, [facility] [address] [facility] [id number] [address]- 3975 May, [facility] [address] [facility] [id number] [address]- 1735 May, [facility] [id number] [address]- 2975 May, [facility] [address] [place] [address] 13970- 8001 Apr, [facility] [id number] [address]- 9486 Apr, Chondromalacia, right knee M94.261 [facility] [address] [address]- 4865 Apr, Pain in unspecified hip M25.559 [facility] [address] [address]- 3725 Mar, Social phobia, unspecified F40.10 and Pain in unspecified hip M25.559 [facility] [id number] [address]- 5030 February, [facility] [address], [place] [address]- 7081 February, Social phobia F40.10 [facility] [address], [place] [address]- 7698 03 May, 2016 Morbid obesity E66.01 ; Chronic pain G89.29 ; Social phobia F40.10 ; Pelvic pain in male R10.2 ; HTN (hypertension) I10 ; Degenerative disc disease at L5-S1 level M51.36 ; BPH (benign prostatic hyperplasia) N40.0 and Pain in right knee M25.561 [facility] [address] [place] [address] 49985- 4839 14 Jan, 2016 [facility] [address] 49589- 4281 Jan, [facility] [address] [place] [address] 24638- 1682 Jan, [place] [address] 80804- 4002 Dec, [facility] [address] [place] [address] 29379- 7456 Dec, [facility] [address] 75374- 7426 Dec, [facility] [address] [place] [address] 15695 -9343 Nov, Strep pharyngitis J02.0 ; Influenza A J10.1 and Cough R05 [facility] [address] [place] [address] 19073- 3323 Nov, [facility] [address] 02485- 8998 Nov, [facility] [address] [place] [address] 29030- 0418 Oct, HTN (hypertension) I10 ; Morbid obesity E66.01 ; Anxiety F41.9 ; Social phobia F40.10 ; Panic disorder F41.0 ; Degenerative disc disease at L5-S1 level M51.36 and Hypercholesterolemia E78.0 [facility] [address] [place] [address] 17842- 3961 Oct, Panic disorder [episodic paroxysmal anxiety] without agoraphobia F41.0 and Social phobia, generalized F40.11 [facility] [address] [place] [address] 05074- 5262 Oct, [facility] [address] [place] [address] 92584- 7184 Sep, [facility] [address] [place] [address] 42323- 6773 Sep, [facility] [address] [place] [address] 35823- 8670 Sep, [facility] [address] [place] [address] 60907- 5070 Sep, [facility] [address] [place] [address] 89166- 9127 Aug, [facility] [address] [place] [address] 66641- 8258 Aug, [facility] [address] [place] [address] 31961- 2004 Aug, [facility] [address] [place] [address] 92419- 1834 Aug, Social phobia F40.10 and Panic disorder F41.0 [facility] [address] [place] [address] 66355- 6439 Aug, [facility] [address] [place] [address] 70032- 3125 Aug, [facility] [address] [place] [address] 49635- 9730 Aug, [facility] [address] [place] [address] 85609- 4725 Aug, [facility] [address] [place] [address] 16382- 7338 Jul, [facility] [address] [place] [address] 76851- 0572 Jul, Morbid obesity E66.01 ; Chronic pain G89.29 ; Anxiety F41.9 ; Social phobia F40.10 ; Panic disorder F41.0 ; Pelvic pain in male R10.2 ; Insomnia G47.00 and HTN (hypertension) I10 [facility] [address] [place] [address] 71422- 5173 Jul, [facility] [address] 15521- 6544 Jul, [facility] [address] [place] [address] 50211- 5681 Jun, Degenerative disc disease 722.6 [facility] [address] [place] [address] 68225- 8050 Jun, Pain in joint, pelvic region and thigh 719.45 ; Morbid obesity 278.01 ; Essential hypertension, benign 401.1 and Constipation 564.00 [facility] [address] [place] [address] 11025- 8047 May, [facility] [address] 95642- 4325 May, [facility] [address] [place] [address] 79059- 0717 May, [facility] [address] [place] [address] 62874- 5004 May, [facility] [address] [place] [address] 45360- 4211 May, [facility] [address] 84756- 4298 May, [facility] [address] [place] [address] 34570- 9255 May, Essential hypertension, benign 401.1 ; Anxiety state, unspecified 300.00 ; Panic disorder without agoraphobia 300.01 ; Social phobia 300.23 ; Morbid obesity 278.01 ; Other chronic pain 338.29 and Insomnia 780.52 [facility] [address] [place] [address] 03122- 2545 May, Essential hypertension 401.9 [facility] [address] [place] [address] 95193 2546 May, Pain in joint, pelvic region and thigh 719.45 [facility] [address] [place] [address] 49950 2549 May, Essential hypertension, benign 401.1 [facility] [address] [place] [address] 42905- 8744 May, Panic disorder without agoraphobia 300.01 and Social phobia 300.23 [facility] [id number] [place] [address] 45882- 5455 May, [facility] [id number] [place] [address] 16119- 8837 May, [facility] [address] [place] [address] 81885- 1830 Apr, Chronic pain 338.29 [facility] [address] [place] [address] 12647- 8098 Apr, [facility] [address], [place] [address]- 2541 Apr, [facility] [address], [place] [address]- 2547 Apr, [facility] [address], [place] [address] 2544 Apr, [facility] [id number] [place] [address] 33750- 2544 Apr, [facility] [address], [place] [address]- 254 Apr, [facility] [address] [place] [address] 92337- 1140 Apr, [facility] [address] [place] [address] 00812- 1314 Apr, Essential hypertension, benign 401.1 ; Morbid obesity 278.01 ; Anxiety state, unspecified 300.00 ; Panic disorder without agoraphobia 300.01 ; Social phobia 300.23 and Chronic pain 338.29 [facility] [address] [place] [address] 23660- 4249 Mar, [facility] [address] [place] [address] 84292- 4222 Mar, [facility] [address] 04167- 4170 Mar, [facility] [address] [place] [address] 47714- 6047 Mar, [facility] [address] 96060- 4462 Mar, Social phobia 300.23 and Panic disorder without agoraphobia 300.01 [facility] [address] [place] [address] 63454- 6293 Mar, [facility] [id number] [place] [address] 98098- 9767 February, [facility] [id number] [place] [address]4929- 9030 February, Major depression, recurrent 296.30 and No condition on [place] II V71.09 [facility] [id number] [place] [address]0829- 8085 February, [facility] [address] [address]- [address] February, Panic disorder without agoraphobia 300.01 ; Social phobia 300.23 and Morbid obesity 278.01 [facility] [id number] [place] [address] 45609- 1670 Jan, [facility] [place] [facility] [address] [id number] [place] [address] 13 Jan, 2015 [facility] [place] [facility] [address] [id number] [place] [address]- [address] 27 Dec, 2014 [facility] [place] [facility] [address] [id number] [place] [address]- 4556 Dec, [facility] [place] [facility] [address] [id number] [place] [address]- 8806 Dec, [facility] [place] [facility] [address] [id number] [place] [address]- [address] Dec, [facility] [place] [facility] [address] [id number] [place] [address]- 5946 Dec, [facility] [place] [facility] [address] [id number] [place] [address]- 6536 Dec, [facility] [place] [facility] [address] [id number] [place] [address]- 3070 Dec, [facility] [place] [facility] [address] [id number] [place] [address]- 2610 Dec, [facility] [place] [facility] [address] [id number] [place] [address]- 0009 Dec, [facility] [place] [facility] [address] [id number] [place] [address]- 6268 Dec, [facility] [place] [facility] [address] [id number] [place] [address]- 0643 Dec, [facility] [place] [facility] [address] [id number] [place] [address]- 9818 Dec, [facility] [place] [facility] [address] [id number] [place] [address]- 2286 Dec, [facility] [place] [facility] [address] [id number] [place] [address]- 8056 Dec, [facility] [place] [facility] [address] [id number] [place] [id number] Dec, [facility] [address] [facility] [id number] [place] [id number] Dec, IMMUNIZATIONS No Known Immunizations SOCIAL HISTORY [...]
--- OUTSIDE RECORDS SUMMARY | 2018-11-30 17:29 | XMS REPORT ---
Author Author CELI MCPHERSON [facility] Address [address] [place] [address] Care Team Providers Care Social Worker Delinquency Prevention Name Role Phone CELI MCPHERSON Unavailable PROBLEMS Type Condition ICD9-CM Code LQX29-GI Code Onset Dates Condition Status SNOMED Code Problem Mild episode of recurrent major depressive disorder F33.0 Active 673353196 Problem Primary insomnia F51.01 Active 3740815 Problem Type 2 diabetes mellitus with diabetic chronic kidney disease E11.22 Active 13946674 Problem Lymphedema I89.0 Active 450229904 Problem Chronic systolic congestive heart failure I50.22 Active 824082584 Problem Constipation, unspecified constipation type K59.00 Active 31974132 Problem Mixed hyperlipidemia E78.2 Active 021671693 Problem Stasis dermatitis of both legs I87.2 Active 95708371 Problem BMI 50.0-59.9, adult Z68.43 Active 266836856 Problem Abnormal liver function test R94.5 Active 859204599 Problem Cardiomegaly I51.7 Active 4157189 Problem Controlled substance agreement terminated Z91.14 Active 008457542 Problem HTN (hypertension) I10 Active 95542280 Problem Degenerative disc disease at L5-S1 level M51.36 Active 49750417 Problem Panic disorder F41.0 Active 481374495 Problem BPH (benign prostatic hyperplasia) N40.0 Active 326437653 Problem Chronic pain G89.29 Active 29318658 Problem Dysthymic disorder F34.1 Active 07728527 ALLERGIES Substance Reaction Event Type Date Status Wellbutrin Unknown Non Drug Allergy Dec, Active ENCOUNTERS Encounter Location Date Diagnosis [facility] [address] [facility] [id number], [place] [address] 7[address] Apr, [facility] [address] [facility] [id number], [place] [address] 4186 Apr, [facility] [id number] [place] [address] 68863- 4389 Mar, Type 2 diabetes mellitus with diabetic chronic kidney disease E11.22 [facility] [id number] [place] [address] 65765- 8142 Mar, Chronic pain G89.29 [facility] [id number] [place] [address] 88727- 6928 February, Chronic pain G89.29 ; Abnormal liver function test R94.5 and Degenerative disc disease at L5-S1 level M51.36 [facility] [id number] [place] [address] 08615- 7218 Jan, [facility] [id number] [place] [address] 01224- 2144 Jan, [facility] [id number] [place] [address] 43360- 3222 Jan, [facility] [id number] [place] [address] 37774- 7784 Jan, Abnormal liver function test R94.5 ; Dysthymic disorder F34.1 and Chronic pain G89.29 [facility] [place] [id number] [place] [address] 54725- 8648 Dec, [facility] [id number] [place] [address] 65426- 8243 Dec, HTN (hypertension) I10 ; BMI 45.0-49.9, adult Z68.42 ; Chronic pain G89.29 ; Primary insomnia F51.01 ; Mixed hyperlipidemia E78.2 ; Dysthymic disorder F34.1 ; Type 2 diabetes mellitus with diabetic chronic kidney disease E11.22 ; Stasis dermatitis of both legs I87.2 and Chronic systolic congestive heart failure I50.22 [place] [place] [id number] [place] [address] 04958- 9623 Dec, Chronic pain G89.29 [facility] [id number] [place] [address] 52679 -3047 04 Mar, 2018 Lymphedema I89.0 and Chronic systolic congestive heart failure I50.22 [facility] [address], [place] [address] 3808 Dec, [facility] [id number] [place] [address] 58945- 5788 Nov, Type 2 diabetes mellitus with diabetic chronic kidney disease E11.22 [facility] [id number] [place] [address] 54115- 0756 Nov, Chronic pain G89.29 and Dysthymic disorder F34.1 [facility] [id number] [place] [address] 57005- 1486 Nov, [facility] [id number] [place] [address] 65350- 0804 Oct, HTN (hypertension) I10 ; Chronic pain G89.29 ; BMI 45.0-49.9 , adult Z68.42 ; Primary insomnia F51.01 ; Mixed hyperlipidemia E78.2 ; Dysthymic disorder F34.1 ; Type 2 diabetes mellitus with diabetic chronic kidney disease E11.22 ; Chronic congestive heart failure, unspecified congestive heart failure type I50.9 ; Acute non-recurrent maxillary sinusitis J01.00 and BMI 50.0-59.9, adult Z68.43 [place] [id number] [place] [address] 34548- 0306 17 Oct, 2017 HTN (hypertension) I10 and Dysthymic disorder F34.1 [place] [address], [place] [address]- 2692 Oct, [place] [id number] [place] [address] 13976- 2100 Oct, HTN (hypertension) I10 [facility] [place] [id number] [place] [address] 84083- 3760 Oct, Chronic pain G89.29 [facility] [id number] [place] [address] 99093- 2396 Sep, [facility] [place] [address], [place] [address]- 7337 Sep, HTN (hypertension) I10 ; Chronic pain G89.29 ; BMI 45.0-49.9 , adult Z68.42 ; Primary insomnia F51.01 ; Mixed hyperlipidemia E78.2 ; Dysthymic disorder F34.1 and Type 2 diabetes mellitus with diabetic chronic kidney disease E11.22 [facility] [place] [id number] [place] [address] 90402- 0358 18 Sep, 2017 Chronic pain G89.29 [facility] [id number] [place] [address] 08688- 0857 Sep, Acute on chronic heart failure, unspecified heart failure type I50.9 [facility] [id number] [place] [address] 04075- 8629 Sep, Acute on chronic heart failure, unspecified heart failure type I50.9 ; Type 2 diabetes mellitus with diabetic chronic kidney disease E11.22 and BMI 50.0-59.9, adult Z68.43 [facility] [id number] [place] [address] 83427- 6169 Sep, Acute on chronic heart failure, unspecified heart failure type I50.9 ; HTN (hypertension) I10 and Type 2 diabetes mellitus with diabetic chronic kidney disease E11.22 [place] [id number] [place] [address] 75748- 1304 Aug, Acute on chronic heart failure, unspecified heart failure type I50.9 ; HTN (hypertension) I10 ; Type 2 diabetes mellitus with diabetic chronic kidney disease E11.22 ; Cellulitis of right lower extremity L03.115 and BMI 50.0-59.9, adult Z68.43 [facility] [id number] [place] [address] 09497 -7389 Aug, Acute upper respiratory infection, unspecified J06.9 ; Other viral agents as the cause of diseases classified elsewhere B97.89 ; Constipation, unspecified constipation type K59.00 ; BMI 50.0-59.9, adult Z68.43 and BMI 60.0-69.9, adult Z68.44 [place] [place] [id number] [place] [address] 06138- 2266 Aug, Chronic pain G89.29 [place] [place] [id number] [place] [address] 73018- 7707 Jul, Chronic pain G89.29 [place] [address] 11863- 6477 Jul, Chronic pain G89.29 [place] [address] 45577- 2511 Jun, Chronic pain G89.29 [place] [address] 96244- 9222 Jun, [place] [address] 87727- 3770 Jun, Chronic pain G89.29 [place] [address] 56213- 4154 May, Chronic pain G89.29 and Type 2 diabetes mellitus with diabetic chronic kidney disease E11.22 [place] [address] 23999- 1762 16 May, 2017 [place] [address] 14596- 7795 May, Chronic pain G89.29 and Anxiety F41.9 [place] [address] 72621- 4597 May, Type 2 diabetes mellitus with diabetic chronic kidney disease E11.22 ; Social phobia F40.10 ; Morbid obesity E66.01 ; Chronic pain G89.29 ; HTN (hypertension) I10 ; Degenerative disc disease at L5-S1 level M51.36 ; BPH (benign prostatic hyperplasia) N40.0 ; Pain in right knee M25.561 and 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 [place] [address] 35731- 2093 Apr, Anxiety F41.9 [place] [id number] [place] [address] 39895- 7746 Apr, [facility] [place] [id number] [place] [address] 94455- 3301 Mar, [facility] [place] [id number] [place] [address] 81691- 5878 Mar, Edema, unspecified type R60.9 and Anxiety F41.9 [facility] [place] [id number] [place] [address] 71480- 6575 Mar, Social phobia F40.10 ; Mixed obsessional thoughts and acts F42.2 and Mild episode of recurrent major depressive disorder F33.0 [facility] [place] [id number] [place] [address] 97042- 4735 Mar, Degenerative disc disease at L5-S1 level M51.36 [place] [place] [id number] [place] [address] 71829- 6108 Mar, [facility] [place] [id number] [place] [address] 99428- 5516 Mar, [facility] [place] [id number] [place] [address] 88621- 0987 Mar, [facility] [place] [id number] [place] [address] 02638- 0539 February, Morbid obesity E66.01 ; Anxiety F41.9 ; Degenerative disc disease at L5-S1 level M51.36 ; BPH (benign prostatic hyperplasia) N40.0 ; Social phobia F40.10 ; HTN (hypertension) I10 ; Edema, unspecified type R60.9 and Screening cholesterol level Z13.220 [place] [id number] [place] [address] 90381- 1991 February, Social phobia, generalized F40.11 [place] [id number] [place] [address] 94231- 0664 February, Chronic pain G89.29 [facility] [id number] [place] [address] 77893- 8281 February, [facility] [id number] [place] [address] 26287- 8314 Jan, Chronic pain G89.29 [facility] [id number] [place] [address] 18126- 1768 Jan, Panic disorder [episodic paroxysmal anxiety] without agoraphobia F41.0 [place] [id number] [place] [address] 64279- 7156 13 Dec, 2016 Morbid obesity E66.01 ; Anxiety F41.9 ; Chronic pain G89.29 ; HTN (hypertension) I10 ; BPH (benign prostatic hyperplasia) N40.0 ; Generalized edema R60.1 and Cough R05 [place] [id number] [place] [address] 61223- 8570 14 Nov, 2016 Chronic pain G89.29 [facility] [id number] [place] [address] 76348- 5234 03 Nov, 2016 Social phobia, generalized F40.11 and Mild episode of recurrent major depressive disorder F33.0 [place] [id number] [place] [address] 60061- 7094 Oct, Chronic pain G89.29 [place] [id number] [place] [address] 09973- 5767 Oct, Social phobia, generalized F40.11 [place] [id number] [place] [address] 54482- 1214 Sep, [place] [id number] [place] [address] 25153- 2576 Sep, [facility] [id number] [place] [address] 33112- 4921 Sep, [place] [id number] [place] [address] 26364- 4297 Sep, [facility] [id number] [place] [address] 32047- 4366 Sep, [facility] [id number] [place] [address] 95546- 1749 Sep, Social phobia, generalized F40.11 and Mild episode of recurrent major depressive disorder F33.0 [place] [id number] [place] [address] 92834- 8561 Sep, [facility] [id number] [place] [address] 43116- 0315 Aug, [place] [address] 57438- 8188 Aug, [place] [id number] [place] [address] 01944- 2013 17 Aug, 2016 Bronchitis J40 [place] [id number] [place] [address] 80961- 7060 15 Aug, 2016 [place] [id number] [place] [address] 96957- 5688 10 Aug, 2016 Osteoarthritis of knee, unspecified M17.9 [place] [id number] [place] [address] 73361- 8725 09 Aug, 2016 Morbid obesity E66.01 ; Chronic pain G89.29 ; Anxiety F41.9 ; Social phobia F40.10 ; HTN (hypertension) I10 ; Social phobia, generalized F40.11 ; Acute upper respiratory infection, unspecified J06.9 and Other viral agents as the cause of diseases classified elsewhere B97.89 [place] [id number] [place] [address] 58660- 4732 08 Aug, 2016 Social phobia, generalized F40.11 and Dysthymic disorder F34.1 [place] [id number] [place] [address] 85717- 3817 Jul, [facility] [id number] [place] [address] 79682- 7320 Jun, [facility] [address] [facility] [id number], [place] [address]- 1031 May, [facility] [address] [facility] [id number], [place] [address]- 3694 May, [facility] [id number], [place] [address]- 3159 May, [facility] [address] [facility] [id number] [place] [address] 95131- 7262 May, [facility] [address] [facility] [id number], [place] [address]- 3654 May, [facility] [id number] [place] [address] 18953- 2882 May, [facility] [address] [place] [address] 96206- 0224 May, [facility] [address], [place] [address]- 0244 Apr, [facility] [address] [place] [address] 71329- 1386 Apr, Chondromalacia, right knee M94.261 [facility] [address], [place] [address]- 8519 Apr, Pain in unspecified hip M25.559 [facility] [address], [place] [address]- 6974 Mar, Social phobia, unspecified F40.10 and Pain in unspecified hip M25.559 [facility] [address], [place] [address]- 6256 February, [facility] [id number], [place] [address]- 1110 February, Social phobia F40.10 [facility] [address], [place] [address]- 7949 February, Morbid obesity E66.01 ; Chronic pain G89.29 ; Social phobia F40.10 ; Pelvic pain in male R10.2 ; HTN (hypertension) I10 ; Degenerative disc disease at L5-S1 level M51.36 ; BPH (benign prostatic hyperplasia) N40.0 and Pain in right knee M25.561 [facility] [id number] [place] [address] 21530- 3271 14 Jan, 2016 [facility] [address] 14473- 6494 Jan, [place] [address] 17834- 4433 Jan, [place] [address] 32398- 0388 Dec, [place] [address] 59198- 8989 Dec, [facility] [address] 99666- 5664 Dec, [facility] [address] 17561 -1959 Nov, Strep pharyngitis J02.0 ; Influenza A J10.1 and Cough R05 [place] [id number] [place] [address] 25494- 5955 Nov, [facility] [id number] [place] [address] 47153- 2176 Nov, [place] [id number] [place] [address] 36441- 9396 Oct, HTN (hypertension) I10 ; Morbid obesity E66.01 ; Anxiety F41.9 ; Social phobia F40.10 ; Panic disorder F41.0 ; Degenerative disc disease at L5-S1 level M51.36 and Hypercholesterolemia E78.0 [facility] [address] 46717- 6312 Oct, Panic disorder [episodic paroxysmal anxiety] without agoraphobia F41.0 and Social phobia, generalized F40.11 [facility] [id number] [place] [address] 94249- 4716 Oct, [facility] [id number] [place] [address] 47680- 5452 Sep, [facility] [address] 15078- 0156 Sep, [facility] [id number] [place] [address] 84054- 8681 Sep, [facility] [id number] [place] [address] 95746- 9275 Sep, [facility] [id number] [place] [address] 57648- 3834 Aug, [facility] [id number] [place] [address] 41875- 0178 Aug, [facility] [id number] [place] [address] 94648- 4347 Aug, [facility] [id number] [place] [address] 20804- 0529 Aug, Social phobia F40.10 and Panic disorder F41.0 [facility] [id number] [place] [address] 28298- 3512 Aug, [facility] [id number] [place] [address] 26143- 9093 Aug, [facility] [id number] [place] [address] 88112- 9830 Aug, [facility] [id number] [place] [address] 21496- 4448 Aug, [facility] [id number] [place] [address] 91884- 9768 Jul, [facility] [address], [place] [address]- 9978 Jul, Morbid obesity E66.01 ; Chronic pain G89.29 ; Anxiety F41.9 ; Social phobia F40.10 ; Panic disorder F41.0 ; Pelvic pain in male R10.2 ; Insomnia G47.00 and HTN (hypertension) I10 [facility] [id number] [place] [address] 71552- 8815 Jul, [facility] [id number] [place] [address] 73521- 8018 Jul, [facility] [id number] [place] [address] 96588- 1032 Jun, Degenerative disc disease 722.6 [facility] [id number] [place] [address] 20425- 3647 Jun, Pain in joint, pelvic region and thigh 719.45 ; Morbid obesity 278.01 ; Essential hypertension, benign 401.1 and Constipation 564.00 [facility] [id number] [place] [address] 57916- 4328 May, [facility] [id number] [place] [address] 53998- 1608 May, [facility] [id number] [place] [address] 58936- 1847 May, [facility] [id number] [place] [address] 22662- 4452 May, [facility] [id number] [place] [address] 00169- 0538 May, [facility] [id number] [place] [address] 30407- 7819 May, [facility] [id number] [place] [address] 62465- 6928 May, Essential hypertension, benign 401.1 ; Anxiety state, unspecified 300.00 ; Panic disorder without agoraphobia 300.01 ; Social phobia 300.23 ; Morbid obesity 278.01 ; Other chronic pain 338.29 and Insomnia 780.52 [facility] [id number] [place] [address] 63120- 9538 May, Essential hypertension 401.9 [facility] [id number] [place] [address] 82430- 3876 May, Pain in joint, pelvic region and thigh 719.45 [facility] [id number] [place] [address] 26120- 2693 May, Essential hypertension, benign 401.1 [facility] [id number] [place] [address] 72165- 8602 May, Panic disorder without agoraphobia 300.01 and Social phobia 300.23 [facility] [id number] [place] [address] 97819- 4924 May, [facility] [id number] [place] [address] 08922- 0066 May, [facility] [id number] [place] [address] 14834- 5216 Apr, Chronic pain 338.29 [facility] [id number] [place] [address] 34240- 5968 Apr, [facility] [id number] [place] [address] [phone]- [phone] Apr, [facility] [id number] [place] [address] [phone] Apr, [facility] [id number] [place] [address] [phone]- [phone] Apr, [facility] [id number] [place] [address] [phone] Apr, [facility] [id number] [place] [address] [phone] Apr, [facility] [address] [id number] [address] Apr, [facility] [id number] [place] [address] [phone]- [phone] Apr, Essential hypertension, benign 401.1 ; Morbid obesity 278.01 ; Anxiety state, unspecified 300.00 ; Panic disorder without agoraphobia 300.01 ; Social phobia 300.23 and Chronic pain 338.29 [facility] [id number] [place] [address] [phone]- [phone] Mar, [facility] [id number] [place] [address] [phone]- [phone] Mar, [facility] [id number] [place] [address] [phone]- [phone] Mar, [facility] [id number] [place] [address] [phone]- [phone] Mar, [facility] [id number] [place] [address] [phone]- [phone] Mar, Social phobia 300.23 and Panic disorder without agoraphobia 300.01 [facility] [id number] [place] [address] 47084- [phone] Mar, [facility] [id number] [place] [address] [phone]- [phone] February, [facility] [id number] [place] [address] [phone]- [phone] February, Major depression, recurrent 296.30 and No condition on [place] V71.09 [facility] [id number], [place] [address] February, [facility] [id number] [place] [id number] February, Panic disorder without agoraphobia 300.01 ; Social phobia 300.23 and Morbid obesity 278.01 [facility] [id number] [place] [address] 14 Jan, 2015 [facility] [place] [facility] [address] [id number] [place] [address] 13 Jan, 2015 [facility] [place] [facility] [address] [id number] [place] [address] 27 Dec, 2014 [facility] [place] [facility] [address] [id number] [place] [address] Dec, [facility] [place] [facility] [address] [id number] [place] [address] Dec, [facility] [place] [facility] [address] [id number] [place] [address] Dec, [facility] [place] [facility] [address] [id number] [place] [address] Dec, [facility] [place] [facility] [address] [id number] [place] [address] Dec, [facility] [place] [facility] [address] [id number] [place] [address] Dec, [facility] [place] [facility] [address] [id number] [place] [address] Dec, [facility] [place] [facility] [address] [id number] [place] [address] Dec, [facility] [place] [facility] [address] [id number], [place] [address] Dec, [facility] [place] [facility] [address] [id number], [place] [address] Dec, [facility] [place] [facility] [address] [id number] [place] [address] Dec, [facility] [place] [facility] [address] [id number] [place] [address] Dec, [facility] [place] [facility] [address] [id number] [place] [address] 13 Dec, 2014 [facility] [place] [facility] [address] [facility] [id number] [place] [address] Dec, [facility] [address] [facility] [id number] [place] [address] Dec, IMMUNIZATIONS No Known Immunizations SOCIAL HISTORY Never Assessed REASON FOR VISIT sores on lower legs bilaterally. have been there for 6-7 days. pt denies pain...but reports they are sore. some of the sores are open. aura, pcp...robbie PLAN OF CARE Activity Details Follow Up Has f.u scheduled Reason: VITAL SIGNS Height 73 in 2017-12-25 Weight 382.0 lbs 2017-12-25 Temperature 98.0 degrees Fahrenheit 2017-12-25 Heart Rate 80 bpm 2017-12-25 Respiratory Rate 20 2017-12-25 BMI 50.39 kg/m2 2017-12-25 Blood pressure systolic 142 mmHg 2017-12-25 Blood pressure diastolic 82 mmHg 2017-12-25 MEDICATIONS Medication Instructions Dosage Frequency Start Date End Date Duration Status Blood Glucose Monitor System w/Device as directed Mar, Active Levemir FlexTouch 100 UNIT/ML Subcutaneous Once a day Inject 10 units 24h Oct, Active Azithromycin 250 MG Orally Once a day 2 tablets on the first day, then 1 tablet daily for 4 days 24h 5 day(s) Active Metoprolol Succinate ER 50 MG TAKE ONE TABLET BY MOUTH ONCE DAILY Active Xanax 0.5 MG Orally Twice a day 1 tablet 12h 26 days Active Trazodone HCl 50 MG TAKE ONE TABLET BY MOUTH AT BEDTIME NEEDED 30 Active Lisinopril 20 MG Orally Once a day 1 tablet 24h Active Hydrocodone-Acetaminophen 10-325 MG Orally 4 times a day 1 tablet 6h 13 Nov 28 days Active Blood Glucose Test - Accuchecknano and lancets Once a day, PRN as directed Mar, Active Potassium Chloride Kristen ER 20 MEQ TAKE ONE TABLET BY MOUTH ONCE DAILY WITH FOOD WITH LASIX 30 Active Wheelchair N/A as directed Aug, Active Spironolactone 25 MG Orally Once a day 1 tablet 24h Jan, 30 days Active Pravastatin Sodium 10 mg Orally Once a day 1 tablet 24h 30 day(s) Active Lasix 80 MG Orally Once a day 1 tablet 24h Active RESULTS No Results PROCEDURES Procedure Date Ordered Result Body Site [facility] VISIT ESTABLISHED PATIENT December 25, 2017 INSTRUCTIONS MEDICATIONS ADMINISTERED No Known Medications MEDICAL [...]
--- OUTSIDE RECORDS SUMMARY | 2018-11-30 17:30 | XMS REPORT ---
Author Author YONAS BELLE [facility] Address [address] [place] [address] Care Team Providers Care Cooper Apprentice Name Role Phone YONAS BELLE Unavailable PROBLEMS Type Condition ICD9-CM Code YEM30-NI Code Onset Dates Condition Status SNOMED Code Problem Mild episode of recurrent major depressive disorder F33.0 Active 882211111 Problem Primary insomnia F51.01 Active 2314740 Problem Type 2 diabetes mellitus with diabetic chronic kidney disease E11.22 Active 09547169 Problem Lymphedema I89.0 Active 106116577 Problem Chronic systolic congestive heart failure I50.22 Active 508861286 Problem Constipation, unspecified constipation type K59.00 Active 25862725 Problem Mixed hyperlipidemia E78.2 Active 548358223 Problem Stasis dermatitis of both legs I87.2 Active 63006727 Problem BMI 50.0-59.9, adult Z68.43 Active 857414084 Problem Abnormal liver function test R94.5 Active 591791511 Problem Cardiomegaly I51.7 Active 0544646 Problem Controlled substance agreement terminated Z91.14 Active 733454126 Problem HTN (hypertension) I10 Active 67328105 Problem Degenerative disc disease at L5-S1 level M51.36 Active 49583427 Problem Panic disorder F41.0 Active 328285875 Problem BPH (benign prostatic hyperplasia) N40.0 Active 343213077 Problem Chronic pain G89.29 Active 14085639 Problem Dysthymic disorder F34.1 Active 23544837 ALLERGIES No Information ENCOUNTERS Encounter Location Date Diagnosis [facility] [address] [facility] [id number] [address] Mar, Chronic pain G89.29 [facility] [address] [facility] [id number] [address] February, Chronic pain G89.29 ; Abnormal liver function test R94.5 and Degenerative disc disease at L5-S1 level M51.36 [facility] [id number] [place] [address] 95998- 1181 Jan, [facility] [id number] [place] [address] 26095- 5891 Jan, [facility] [id number] [place] [address] 18082- 3451 Jan, [facility] [address] [address]- 0887 Jan, Abnormal liver function test R94.5 ; Dysthymic disorder F34.1 and Chronic pain G89.29 [facility] [id number] [place] [address] 47552- 6761 Dec, [facility] [id number] [place] [address] 68240- 5559 Dec, HTN (hypertension) I10 ; BMI 45.0-49.9, adult Z68.42 ; Chronic pain G89.29 ; Primary insomnia F51.01 ; Mixed hyperlipidemia E78.2 ; Dysthymic disorder F34.1 ; Type 2 diabetes mellitus with diabetic chronic kidney disease E11.22 ; Stasis dermatitis of both legs I87.2 and Chronic systolic congestive heart failure I50.22 [facility] [id number] [place] [address] 79482- 6956 Dec, Chronic pain G89.29 [facility] [id number] [place] [address] 74061 -1783 Dec, Lymphedema I89.0 and Chronic systolic congestive heart failure I50.22 [facility] [id number] [place] [address] 72299- 1805 Dec, [facility] [id number] [place] [address] 15810- 4773 Nov, Type 2 diabetes mellitus with diabetic chronic kidney disease E11.22 [facility] [id number] [place] [address] 19576- 7340 Nov, Chronic pain G89.29 and Dysthymic disorder F34.1 [facility] [id number] [place] [address] 74901- 3775 08 Nov, 2017 [facility] [id number] [place] [address] 69576- 8181 Oct, HTN (hypertension) I10 ; Chronic pain G89.29 ; BMI 45.0-49.9 , adult Z68.42 ; Primary insomnia F51.01 ; Mixed hyperlipidemia E78.2 ; Dysthymic disorder F34.1 ; Type 2 diabetes mellitus with diabetic chronic kidney disease E11.22 ; Chronic congestive heart failure, unspecified congestive heart failure type I50.9 ; Acute non-recurrent maxillary sinusitis J01.00 and BMI 50.0-59.9, adult Z68.43 [facility] [id number] [place] [address] 10252- 3146 17 Oct, 2017 HTN (hypertension) I10 and Dysthymic disorder F34.1 [facility] [id number] [place] [address] 73049- 6459 Oct, [facility] [id number] [place] [address] 75605- 4169 Oct, HTN (hypertension) I10 [facility] [id number] [place] [address] 94366- 6842 Oct, Chronic pain G89.29 [facility] [id number] [place] [address] 48310- 3553 Sep, [facility] [id number] [place] [address] 11774- 6061 Sep, HTN (hypertension) I10 ; Chronic pain G89.29 ; BMI 45.0-49.9 , adult Z68.42 ; Primary insomnia F51.01 ; Mixed hyperlipidemia E78.2 ; Dysthymic disorder F34.1 and Type 2 diabetes mellitus with diabetic chronic kidney disease E11.22 [facility] [id number] [place] [address] 31028- 4271 Sep, Chronic pain G89.29 [facility] [id number] [address] 7412 Sep, Acute on chronic heart failure, unspecified heart failure type I50.9 [facility] [address] [address] 5[address] Sep, Acute on chronic heart failure, unspecified heart failure type I50.9 ; Type 2 diabetes mellitus with diabetic chronic kidney disease E11.22 and BMI 50.0-59.9, adult Z68.43 [facility] [address] [address] 5665 Sep, Acute on chronic heart failure, unspecified heart failure type I50.9 ; HTN (hypertension) I10 and Type 2 diabetes mellitus with diabetic chronic kidney disease E11.22 [facility] [address] [address]- 5874 Aug, Acute on chronic heart failure, unspecified heart failure type I50.9 ; HTN (hypertension) I10 ; Type 2 diabetes mellitus with diabetic chronic kidney disease E11.22 ; Cellulitis of right lower extremity L03.115 and BMI 50.0-59.9, adult Z68.43 [facility] [address] [address] Aug, Acute upper respiratory infection, unspecified J06.9 ; Other viral agents as the cause of diseases classified elsewhere B97.89 ; Constipation, unspecified constipation type K59.00 ; BMI 50.0-59.9, adult Z68.43 and BMI 60.0-69.9, adult Z68.44 [facility] [id number] [address] 3451 Aug, Chronic pain G89.29 [facility] [id number] [place] [address] 07776- 2456 Jul, Chronic pain G89.29 [facility] [address], [place] [address] 8114 Jul, Chronic pain G89.29 [facility] [address] [address] 6658 Jun, Chronic pain G89.29 [facility] [id number] [place] [address] 77844- 1032 Jun, [facility] [id number] [place] [address] 58993- 1684 Jun, Chronic pain G89.29 [facility] [id number] [place] [address] 11851- 5810 May, Chronic pain G89.29 and Type 2 diabetes mellitus with diabetic chronic kidney disease E11.22 [place] [id number] [place] [address] 46625- 9089 16 May, 2017 [place] [id number] [place] [address] 86583- 5048 May, Chronic pain G89.29 and Anxiety F41.9 [place] [id number] [place] [address] 00879- 4714 May, Type 2 diabetes mellitus with diabetic chronic kidney disease E11.22 ; Social phobia F40.10 ; Morbid obesity E66.01 ; Chronic pain G89.29 ; HTN (hypertension) I10 ; Degenerative disc disease at L5-S1 level M51.36 ; BPH (benign prostatic hyperplasia) N40.0 ; Pain in right knee M25.561 and 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 [facility] [facility] [address], [place] [address]- 8546 Apr, Anxiety F41.9 [facility] [id number] [place] [address] 70280- 8249 Apr, [facility] [id number] [place] [address] 76532- 6926 Mar, [place] [id number] [place] [address] 58359- 4226 Mar, Edema, unspecified type R60.9 and Anxiety F41.9 [facility] [id number] [place] [address] 62535- 0931 Mar, Social phobia F40.10 ; Mixed obsessional thoughts and acts F42.2 and Mild episode of recurrent major depressive disorder F33.0 [facility] [id number] [place] [address] 61374- 9575 Mar, Degenerative disc disease at L5-S1 level M51.36 [facility] [address] 37023- 8822 Mar, [facility] [address] 23323- 2746 Mar, [facility] [id number] [place] [address] 63784- 6008 Mar, [facility] [id number] [place] [address] 82882- 7706 February, Morbid obesity E66.01 ; Anxiety F41.9 ; Degenerative disc disease at L5-S1 level M51.36 ; BPH (benign prostatic hyperplasia) N40.0 ; Social phobia F40.10 ; HTN (hypertension) I10 ; Edema, unspecified type R60.9 and Screening cholesterol level Z13.220 [facility] [id number] [place] [address] 40523- 6065 February, Social phobia, generalized F40.11 [facility] [id number] [place] [address] 12481- 3425 February, Chronic pain G89.29 [facility] [id number] [place] [address] 66844- 0740 February, [facility] [id number] [place] [address] 66011- 6455 Jan, Chronic pain G89.29 [facility] [id number] [place] [address] 35252- 0547 Jan, Panic disorder [episodic paroxysmal anxiety] without agoraphobia F41.0 [facility] [address] [place] [address] 14199- 8016 13 Dec, 2016 Morbid obesity E66.01 ; Anxiety F41.9 ; Chronic pain G89.29 ; HTN (hypertension) I10 ; BPH (benign prostatic hyperplasia) N40.0 ; Generalized edema R60.1 and Cough R05 [facility] [id number] [place] [address] 08907- 6289 14 Nov, 2016 Chronic pain G89.29 [facility] [id number] [place] [address] 35783 2547 03 Nov, 2016 Social phobia, generalized F40.11 and Mild episode of recurrent major depressive disorder F33.0 [facility] [id number] [place] [address] 28293- 0562 Oct, Chronic pain G89.29 [facility] [id number] [place] [address] 81239- 8944 Oct, Social phobia, generalized F40.11 [facility] [id number] [place] [address] 14750- 0785 Sep, [facility] [id number] [place] [address] 58671- 8655 Sep, [facility] [id number] [place] [address] 70467- 8968 Sep, [facility] [id number] [place] [address] 20848 2549 Sep, [facility] [id number] [place] [address] 85129- 7023 Sep, [facility] [id number] [place] [address] 34785- 6035 Sep, Social phobia, generalized F40.11 and Mild episode of recurrent major depressive disorder F33.0 [facility] [id number] [place] [address] 70930- 7648 Sep, [facility] [address], [place] [address]- 2529 Aug, [facility] [id number] [place] [address] 22327- 2996 Aug, [facility] [id number] [place] [address] 62473- 2251 Aug, Bronchitis J40 [facility] [address] 55761- 7387 15 Aug, 2016 [facility] [id number] [place] [address] 51177- 1939 10 Aug, 2016 Osteoarthritis of knee, unspecified M17.9 [facility] [id number] [place] [address] 57865- 9639 09 Aug, 2016 Morbid obesity E66.01 ; Chronic pain G89.29 ; Anxiety F41.9 ; Social phobia F40.10 ; HTN (hypertension) I10 ; Social phobia, generalized F40.11 ; Acute upper respiratory infection, unspecified J06.9 and Other viral agents as the cause of diseases classified elsewhere B97.89 [facility] [id number] [place] [address] 53518- 7315 Aug, Social phobia, generalized F40.11 and Dysthymic disorder F34.1 [facility] [address] [place] [address] 76750- 9672 Jul, [facility] [id number] [place] [address] 93823- 1362 Jun, [facility] [id number] [place] [address] 03300- 7203 May, [facility] [id number] [place] [address] 09368- 6035 May, [facility] [id number] [place] [address] 99530- 6368 May, [facility] [address] [place] [address]- 7326 May, [facility] [address], [place] [address]- 3406 May, [facility] [address], [place] [address]- 2315 May, [facility] [id number] [place] [address] 71292- 1676 May, [facility] [id number] [place] [address] 72359- 4041 Apr, [facility] [address] [place] [address] 20064- 9298 Apr, Chondromalacia, right knee M94.261 [facility] [id number] [place] [address] 52979- 5395 Apr, Pain in unspecified hip M25.559 [facility] [id number] [place] [address] 13383- 5296 Mar, Social phobia, unspecified F40.10 and Pain in unspecified hip M25.559 [facility] [id number] [place] [address] 15464- 1743 February, [facility] [address] [address]- 8781 February, Social phobia F40.10 [facility] [address], [place] [address]- 6210 February, Morbid obesity E66.01 ; Chronic pain G89.29 ; Social phobia F40.10 ; Pelvic pain in male R10.2 ; HTN (hypertension) I10 ; Degenerative disc disease at L5-S1 level M51.36 ; BPH (benign prostatic hyperplasia) N40.0 and Pain in right knee M25.561 [facility] [address] [address]- 4387 Jan, [facility] [id number] [place] [address] 62493- 3563 Jan, [facility] [address] 39358- 5203 Jan, [facility] [address] 47758- 7860 Dec, [facility] [address] 00111- 5873 Dec, [facility] [address] 91575- 2520 Dec, [facility] [address] 92487 -8251 Nov, Strep pharyngitis J02.0 ; Influenza A J10.1 and Cough R05 [address] 14192- 7041 Nov, [facility] [address] 42065- 3312 Nov, [place] [address] 42541- 1934 Oct, HTN (hypertension) I10 ; Morbid obesity E66.01 ; Anxiety F41.9 ; Social phobia F40.10 ; Panic disorder F41.0 ; Degenerative disc disease at L5-S1 level M51.36 and Hypercholesterolemia E78.0 [place] [address] 98918- 9887 Oct, Panic disorder [episodic paroxysmal anxiety] without agoraphobia F41.0 and Social phobia, generalized F40.11 [place] [facility] [address] 76425- 0141 Oct, [facility] [address] 25482- 0448 Sep, [facility] [facility] [address] 23096- 5635 Sep, [facility] [id number] [place] [address] 64331- 6521 Sep, [facility] [id number] [place] [address] 68908- 5462 Sep, [facility] [id number] [place] [address] 21565- 0050 Aug, [facility] [id number] [place] [address] 46222- 2702 Aug, [facility] [id number] [place] [address] 84000- 3112 Aug, [facility] [id number] [place] [address] 12174- 4717 Aug, Social phobia F40.10 and Panic disorder F41.0 [facility] [id number] [place] [address] 84337- 2504 Aug, [facility] [id number] [place] [address] 79413- 4523 Aug, [facility] [id number] [place] [address] 97354- 1220 Aug, [facility] [id number] [place] [address] 01281- 8584 Aug, [facility] [id number] [place] [address] 61092- 4547 Jul, [facility] [id number] [place] [address] 32889- 5707 Jul, Morbid obesity E66.01 ; Chronic pain G89.29 ; Anxiety F41.9 ; Social phobia F40.10 ; Panic disorder F41.0 ; Pelvic pain in male R10.2 ; Insomnia G47.00 and HTN (hypertension) I10 [facility] [id number] [place] [address] 85593- 9122 Jul, [facility] [address] [address]- 6477 Jul, [facility] [id number] [place] [address] 45346- 1299 16 Jun, 2015 Degenerative disc disease 722.6 [facility] [id number] [place] [address] 52860- 6761 Jun, Pain in joint, pelvic region and thigh 719.45 ; Morbid obesity 278.01 ; Essential hypertension, benign 401.1 and Constipation 564.00 [facility] [address] [address]- 7373 May, [facility] [id number] [place] [address] 57046- 1101 May, [facility] [id number] [place] [address] 62805- 2625 May, [facility] [id number] [place] [address] 55928- 3865 May, [facility] [id number] [place] [address] 03879- 6812 May, [facility] [id number] [place] [address] 76711- 4436 May, [facility] [address] [place] [address] 74945- 7655 May, Essential hypertension, benign 401.1 ; Anxiety state, unspecified 300.00 ; Panic disorder without agoraphobia 300.01 ; Social phobia 300.23 ; Morbid obesity 278.01 ; Other chronic pain 338.29 and Insomnia 780.52 [facility] [id number] [place] [address] 41202- 2102 May, Essential hypertension 401.9 [facility] [id number] [place] [address] 12872- 3620 May, Pain in joint, pelvic region and thigh 719.45 [facility] [address] [place] [address]- 6113 May, Essential hypertension, benign 401.1 [facility] [id number] [place] [address] 06986- 9715 May, Panic disorder without agoraphobia 300.01 and Social phobia 300.23 [facility] [address], [place] [address]- 9190 May, [facility] [id number] [place] [address] 60661- 3027 May, [facility] [id number] [place] [address] 17381- 3074 Apr, Chronic pain 338.29 [facility] [id number] [place] [address] 16182- 6539 Apr, [facility] [id number] [place] [address] 51389- 5556 Apr, [facility] [address], [place] [address]- 2179 Apr, [facility] [id number] [place] [address] 48180- 3404 Apr, [facility] [address], [place] [address]- 8131 Apr, [facility] [address], [place] [address]- 6394 Apr, [facility] [address], [place] [address]- 9549 Apr, [facility] [address], [place] [address]- 2220 Apr, Essential hypertension, benign 401.1 ; Morbid obesity 278.01 ; Anxiety state, unspecified 300.00 ; Panic disorder without agoraphobia 300.01 ; Social phobia 300.23 and Chronic pain 338.29 [facility] [address], [place] [address]- 8596 Mar, [facility] [address], [place] [address]- 4228 Mar, [facility] [id number] [place] [address] 87322- 9006 Mar, [facility] [id number] [place] [address] 61043- 7007 Mar, [facility] [id number] [place] [address] 67003- 7430 Mar, Social phobia 300.23 and Panic disorder without agoraphobia 300.01 [facility] [id number] [place] [address] 11988- 7850 Mar, [facility] [id number] [place] [address] 94574- 7387 February, [facility] [id number] [place] [address] 08404- 9400 February, Major depression, recurrent 296.30 and No condition on [place] II V71.09 [facility] [id number] [place] [address] 53425- 4971 February, [facility] [id number] [place] [address] 35012- 1377 February, Panic disorder without agoraphobia 300.01 ; Social phobia 300.23 and Morbid obesity 278.01 [facility] [address], [place] [address]- 8889 Jan, [facility] [id number] [place] [address] 77724- 0614 Jan, [facility] [id number] [place] [id number] Dec, [facility] [id number] [place] [address] Dec, [facility] [id number] [place] [id number] Dec, [facility] [id number] [address] Dec, [facility] [id number] [address] Dec, [facility] [id number] [address] Dec, [facility] [id number] [address] Dec, [facility] [id number] [address] Dec, [facility] [id number] [address] Dec, [facility] [id number] [address] Dec, [facility] [id number] [address] Dec, [facility] [id number] [address] Dec, [facility] [id number] [address] Dec, [facility] [id number] [address] Dec, [facility] [id number] [address] Dec, [facility] [id number] [address] Dec, IMMUNIZATIONS No Known Immunizations SOCIAL HISTORY Never Assessed REASON FOR VISIT Medication question PLAN OF CARE VITAL SIGNS MEDICATIONS Medication Instructions Dosage Frequency Start Date End Date Duration Status Metoprolol Succinate ER 50 mg TAKE ONE TABLET BY MOUTH ONCE DAILY Active Spironolactone 25 MG Orally Once a [...]
--- OUTSIDE RECORDS SUMMARY | 2018-11-30 17:30 | XMS REPORT ---
Author Author YONAS BELLE [facility] Address [address] [place] [address] Care Team Providers Care Mobile Nurse Name Role Phone YONAS BELLE Unavailable PROBLEMS Type Condition ICD9-CM Code BFE56-JG Code Onset Dates Condition Status SNOMED Code Problem Mild episode of recurrent major depressive disorder F33.0 Active 192235585 Problem Primary insomnia F51.01 Active 5328642 Problem Type 2 diabetes mellitus with diabetic chronic kidney disease E11.22 Active 21385764 Problem Lymphedema I89.0 Active 438998772 Problem Chronic systolic congestive heart failure I50.22 Active 993698891 Problem Constipation, unspecified constipation type K59.00 Active 47909157 Problem Mixed hyperlipidemia E78.2 Active 488340677 Problem Stasis dermatitis of both legs I87.2 Active 87858528 Problem BMI 50.0-59.9, adult Z68.43 Active 547264460 Problem Abnormal liver function test R94.5 Active 453896728 Problem Cardiomegaly I51.7 Active 6285783 Problem Controlled substance agreement terminated Z91.14 Active 690750218 Problem HTN (hypertension) I10 Active 70656047 Problem Degenerative disc disease at L5-S1 level M51.36 Active 45816116 Problem Panic disorder F41.0 Active 256955839 Problem BPH (benign prostatic hyperplasia) N40.0 Active 957584292 Problem Chronic pain G89.29 Active 30115938 Problem Dysthymic disorder F34.1 Active 44125103 ALLERGIES No Information ENCOUNTERS Encounter Location Date Diagnosis [facility] [address] [facility] [id number] [address] Mar, Chronic pain G89.29 [facility] [address] [facility] [id number], [place] [address] February, Chronic pain G89.29 ; Abnormal liver function test R94.5 and Degenerative disc disease at L5-S1 level M51.36 [facility] [id number] [place] [address] 35312- 2468 Jan, [facility] [id number] [place] [address] 90885- 3899 Jan, [facility] [id number] [place] [address] 33743- 8999 Jan, [facility] [address] [address]- 1[address] Jan, Abnormal liver function test R94.5 ; Dysthymic disorder F34.1 and Chronic pain G89.29 [facility] [id number] [place] [address] 83018- 1579 Dec, [facility] [id number] [place] [address] 72005- 4781 Dec, HTN (hypertension) I10 ; BMI 45.0-49.9, adult Z68.42 ; Chronic pain G89.29 ; Primary insomnia F51.01 ; Mixed hyperlipidemia E78.2 ; Dysthymic disorder F34.1 ; Type 2 diabetes mellitus with diabetic chronic kidney disease E11.22 ; Stasis dermatitis of both legs I87.2 and Chronic systolic congestive heart failure I50.22 [facility] [id number] [place] [address] 78275- 8451 Dec, Chronic pain G89.29 [facility] [id number] [place] [address] 47686 -8232 Dec, Lymphedema I89.0 and Chronic systolic congestive heart failure I50.22 [facility] [id number] [place] [address] 03003- 2669 Dec, [facility] [id number] [place] [address] 66473- 8474 Nov, Type 2 diabetes mellitus with diabetic chronic kidney disease E11.22 [facility] [id number] [place] [address] 87105- 7535 Nov, Chronic pain G89.29 and Dysthymic disorder F34.1 [place] [id number] [place] [address] 81882- 2020 08 Nov, 2017 [facility] [id number] [place] [address] 51502- 4963 Oct, HTN (hypertension) I10 ; Chronic pain G89.29 ; BMI 45.0-49.9 , adult Z68.42 ; Primary insomnia F51.01 ; Mixed hyperlipidemia E78.2 ; Dysthymic disorder F34.1 ; Type 2 diabetes mellitus with diabetic chronic kidney disease E11.22 ; Chronic congestive heart failure, unspecified congestive heart failure type I50.9 ; Acute non-recurrent maxillary sinusitis J01.00 and BMI 50.0-59.9, adult Z68.43 [facility] [id number] [place] [address] 06807- 6687 17 Oct, 2017 HTN (hypertension) I10 and Dysthymic disorder F34.1 [facility] [id number] [place] [address] 74964- 3092 Oct, [facility] [id number] [place] [address] 70407- 8566 Oct, HTN (hypertension) I10 [facility] [id number] [place] [address] 71566- 7462 Oct, Chronic pain G89.29 [facility] [id number] [place] [address] 83521- 2022 Sep, [facility] [id number] [place] [address] 60149- 4264 Sep, HTN (hypertension) I10 ; Chronic pain G89.29 ; BMI 45.0-49.9 , adult Z68.42 ; Primary insomnia F51.01 ; Mixed hyperlipidemia E78.2 ; Dysthymic disorder F34.1 and Type 2 diabetes mellitus with diabetic chronic kidney disease E11.22 [facility] [id number] [place] [address] 18291- 7443 Sep, Chronic pain G89.29 [facility] [id number] [address] 0226 Sep, Acute on chronic heart failure, unspecified heart failure type I50.9 [facility] [address], [place] [address] Sep, Acute on chronic heart failure, unspecified heart failure type I50.9 ; Type 2 diabetes mellitus with diabetic chronic kidney disease E11.22 and BMI 50.0-59.9, adult Z68.43 [facility] [place] [address] [address] 0[address] Sep, Acute on chronic heart failure, unspecified heart failure type I50.9 ; HTN (hypertension) I10 and Type 2 diabetes mellitus with diabetic chronic kidney disease E11.22 [facility] [address] [address] 0881 Aug, Acute on chronic heart failure, unspecified heart failure type I50.9 ; HTN (hypertension) I10 ; Type 2 diabetes mellitus with diabetic chronic kidney disease E11.22 ; Cellulitis of right lower extremity L03.115 and BMI 50.0-59.9, adult Z68.43 [facility] [address] [address] Aug, Acute upper respiratory infection, unspecified J06.9 ; Other viral agents as the cause of diseases classified elsewhere B97.89 ; Constipation, unspecified constipation type K59.00 ; BMI 50.0-59.9, adult Z68.43 and BMI 60.0-69.9, adult Z68.44 [facility] [id number] [address] 6077 Aug, Chronic pain G89.29 [facility] [id number] [place] [address] 37644- 0427 Jul, Chronic pain G89.29 [facility] [address] [address] 9401 Jul, Chronic pain G89.29 [place] [facility] [address] [address] 3705 Jun, Chronic pain G89.29 [facility] [id number] [place] [address] 72835- 4216 Jun, [facility] [id number] [place] [address] 48874- 1621 Jun, Chronic pain G89.29 [facility] [id number] [place] [address] 77913- 7971 May, Chronic pain G89.29 and Type 2 diabetes mellitus with diabetic chronic kidney disease E11.22 [place] [id number] [place] [address] 79358- 3627 16 May, 2017 [place] [id number] [place] [address] 97140- 0500 May, Chronic pain G89.29 and Anxiety F41.9 [place] [id number] [place] [address] 30717- 9219 May, Type 2 diabetes mellitus with diabetic chronic kidney disease E11.22 ; Social phobia F40.10 ; Morbid obesity E66.01 ; Chronic pain G89.29 ; HTN (hypertension) I10 ; Degenerative disc disease at L5-S1 level M51.36 ; BPH (benign prostatic hyperplasia) N40.0 ; Pain in right knee M25.561 and 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 [facility] [address] [address]- 8118 Apr, Anxiety F41.9 [facility] [id number] [place] [address] 30665- 3126 Apr, [facility] [id number] [place] [address] 16006- 5181 Mar, [place] [id number] [place] [address] 95374- 6387 Mar, Edema, unspecified type R60.9 and Anxiety F41.9 [facility] [id number] [place] [address] 92774- 8076 Mar, Social phobia F40.10 ; Mixed obsessional thoughts and acts F42.2 and Mild episode of recurrent major depressive disorder F33.0 [facility] [id number] [place] [address] 28894- 0572 Mar, Degenerative disc disease at L5-S1 level M51.36 [facility] [address] 79311- 1490 Mar, [facility] [address] 48202- 1811 Mar, [facility] [place] [id number] [place] [address] 13568- 9579 Mar, [facility] [place] [id number] [place] [address] 66144- 1881 February, Morbid obesity E66.01 ; Anxiety F41.9 ; Degenerative disc disease at L5-S1 level M51.36 ; BPH (benign prostatic hyperplasia) N40.0 ; Social phobia F40.10 ; HTN (hypertension) I10 ; Edema, unspecified type R60.9 and Screening cholesterol level Z13.220 [place] [place] [id number] [place] [address] 07699- 6668 February, Social phobia, generalized F40.11 [facility] [place] [id number] [place] [address] 97549- 1761 February, Chronic pain G89.29 [facility] [place] [id number] [place] [address] 39438- 5330 February, [facility] [place] [id number] [place] [address] 97911- 3749 Jan, Chronic pain G89.29 [facility] [id number] [place] [address] 94073- 3391 Jan, Panic disorder [episodic paroxysmal anxiety] without agoraphobia F41.0 [facility] [address] [place] [address] 45310- 5816 13 Dec, 2016 Morbid obesity E66.01 ; Anxiety F41.9 ; Chronic pain G89.29 ; HTN (hypertension) I10 ; BPH (benign prostatic hyperplasia) N40.0 ; Generalized edema R60.1 and Cough R05 [facility] [id number] [place] [address] 71445- 2871 14 Nov, 2016 Chronic pain G89.29 [facility] [id number] [place] [address] 71899 2540 03 Nov, 2016 Social phobia, generalized F40.11 and Mild episode of recurrent major depressive disorder F33.0 [facility] [place] [id number] [place] [address] 29897- 4086 Oct, Chronic pain G89.29 [facility] [place] [id number] [place] [address] 93703- 0211 Oct, Social phobia, generalized F40.11 [place] [place] [id number] [place] [address] 45017- 8542 Sep, [place] [id number] [place] [address] 62029- 3783 Sep, [facility] [id number] [place] [address] 96635- 9893 Sep, [facility] [id number] [place] [address] 79606 2542 Sep, [facility] [id number] [place] [address] 33336- 7726 Sep, [facility] [id number] [place] [address] 30731- 1943 Sep, Social phobia, generalized F40.11 and Mild episode of recurrent major depressive disorder F33.0 [facility] [id number] [place] [address] 88298- 9561 Sep, [facility] [address], [place] [address]- 5557 Aug, [facility] [id number] [place] [address] 01977- 5084 Aug, [facility] [id number] [place] [address] 76910- 6841 Aug, Bronchitis J40 [facility] [address] 49622- 1391 15 Aug, 2016 [facility] [id number] [place] [address] 19140- 6521 10 Aug, 2016 Osteoarthritis of knee, unspecified M17.9 [facility] [id number] [place] [address] 04015- 4590 09 Aug, 2016 Morbid obesity E66.01 ; Chronic pain G89.29 ; Anxiety F41.9 ; Social phobia F40.10 ; HTN (hypertension) I10 ; Social phobia, generalized F40.11 ; Acute upper respiratory infection, unspecified J06.9 and Other viral agents as the cause of diseases classified elsewhere B97.89 [facility] [id number] [place] [address] 80802- 7642 Aug, Social phobia, generalized F40.11 and Dysthymic disorder F34.1 [facility] [address] [place] [address] 35387- 3431 Jul, [facility] [id number] [place] [address] 54797- 2346 Jun, [facility] [id number] [place] [address] 48293- 4806 May, [facility] [id number] [place] [address] 36500- 5771 May, [facility] [id number] [place] [address] 20006- 3042 May, [facility] [address] [place] [address]- 1176 May, [facility] [address], [place] [address]- 6963 May, [facility] [address], [place] [address]- 5350 May, [facility] [address] [place] [address] 77524- 8963 May, [facility] [id number] [place] [address] 66056- 1177 Apr, [facility] [address] [place] [address] 07076- 8896 Apr, Chondromalacia, right knee M94.261 [facility] [address] [place] [address] 42255- 1039 Apr, Pain in unspecified hip M25.559 [facility] [id number] [place] [address] 29540- 7423 Mar, Social phobia, unspecified F40.10 and Pain in unspecified hip M25.559 [facility] [address] [place] [address] 95490- 5759 February, [facility] [address] [address]- 5642 February, Social phobia F40.10 [facility] [address] [address]- 8577 February, Morbid obesity E66.01 ; Chronic pain G89.29 ; Social phobia F40.10 ; Pelvic pain in male R10.2 ; HTN (hypertension) I10 ; Degenerative disc disease at L5-S1 level M51.36 ; BPH (benign prostatic hyperplasia) N40.0 and Pain in right knee M25.561 [facility] [address], [place] [address]- 2880 Jan, [facility] [id number] [place] [address] 84857- 2693 Jan, [facility] [address] 13445- 1138 Jan, [facility] [address] 75045- 6293 Dec, [facility] [address] 35717- 4384 Dec, [facility] [address] 33260- 8873 Dec, [facility] [address] 39012 -6502 Nov, Strep pharyngitis J02.0 ; Influenza A J10.1 and Cough R05 [address] 02294- 9696 Nov, [facility] [address] 66943- 1024 Nov, [place] [address] 62238- 2964 Oct, HTN (hypertension) I10 ; Morbid obesity E66.01 ; Anxiety F41.9 ; Social phobia F40.10 ; Panic disorder F41.0 ; Degenerative disc disease at L5-S1 level M51.36 and Hypercholesterolemia E78.0 [place] [address] 86405- 1586 Oct, Panic disorder [episodic paroxysmal anxiety] without agoraphobia F41.0 and Social phobia, generalized F40.11 [place] [address] 72709- 6828 Oct, [facility] [address] 47889- 0958 Sep, [place] [address] 00567- 2369 Sep, [facility] [address] [place] [address] 94292- 1264 Sep, [facility] [id number] [place] [address] 81053- 2376 Sep, [facility] [id number] [place] [address] 17648- 5362 Aug, [facility] [id number] [place] [address] 07077- 8720 Aug, [facility] [id number] [place] [address] 11288- 6201 Aug, [facility] [id number] [place] [address] 83397- 7927 Aug, Social phobia F40.10 and Panic disorder F41.0 [facility] [id number] [place] [address] 91295- 5904 Aug, [facility] [id number] [place] [address] 47885- 4817 Aug, [facility] [id number] [place] [address] 84453- 9594 Aug, [facility] [id number] [place] [address] 63019- 2153 Aug, [facility] [id number] [place] [address] 40704- 3761 Jul, [facility] [id number] [place] [address] 76280- 8972 Jul, Morbid obesity E66.01 ; Chronic pain G89.29 ; Anxiety F41.9 ; Social phobia F40.10 ; Panic disorder F41.0 ; Pelvic pain in male R10.2 ; Insomnia G47.00 and HTN (hypertension) I10 [facility] [id number] [place] [address] 16430- 2454 Jul, [facility] [address], [place] [address]- 4085 Jul, [facility] [id number] [place] [address] 27406- 2794 16 Jun, 2015 Degenerative disc disease 722.6 [facility] [id number] [place] [address] 78225- 9153 Jun, Pain in joint, pelvic region and thigh 719.45 ; Morbid obesity 278.01 ; Essential hypertension, benign 401.1 and Constipation 564.00 [facility] [address] [address]- 1723 May, [facility] [id number] [place] [address] 06125- 3711 May, [facility] [id number] [place] [address] 66436- 0259 May, [facility] [id number] [place] [address] 41203- 0575 May, [facility] [id number] [place] [address] 90299- 0847 May, [facility] [id number] [place] [address] 18505- 5930 May, [facility] [address] [place] [address] 91529- 5975 May, Essential hypertension, benign 401.1 ; Anxiety state, unspecified 300.00 ; Panic disorder without agoraphobia 300.01 ; Social phobia 300.23 ; Morbid obesity 278.01 ; Other chronic pain 338.29 and Insomnia 780.52 [facility] [id number] [place] [address] 00072- 6235 May, Essential hypertension 401.9 [facility] [id number] [place] [address] 57656- 1336 May, Essential hypertension, benign 401.1 [facility] [id number] [place] [address] 61171- 4815 May, Pain in joint, pelvic region and thigh 719.45 [facility] [id number] [place] [address] 24837- 1547 May, Panic disorder without agoraphobia 300.01 and Social phobia 300.23 [facility] [address], [place] [address]- 3312 May, [facility] [id number] [place] [address] 29155- 8484 May, [facility] [id number] [place] [address] 27558- 0682 Apr, Chronic pain 338.29 [facility] [id number] [place] [address] 10939- 6926 Apr, [facility] [id number] [place] [address] 79406- 3658 Apr, [facility] [id number] [place] [address] 05510- 3295 Apr, [facility] [id number] [place] [address] 00780- 6678 Apr, [facility] [address], [place] [address]- 2484 Apr, [facility] [id number] [place] [address] 70300- 6467 Apr, [facility] [address], [place] [address]- 2349 Apr, [facility] [id number] [place] [address] 42238- 6390 Apr, Essential hypertension, benign 401.1 ; Morbid obesity 278.01 ; Anxiety state, unspecified 300.00 ; Panic disorder without agoraphobia 300.01 ; Social phobia 300.23 and Chronic pain 338.29 [facility] [id number] [place] [address] 83938- 5343 Mar, [facility] [address], [place] [address]- 5289 Mar, [facility] [id number] [place] [address] 00934- 9331 Mar, [facility] [id number] [place] [address] 48303- 3114 Mar, [facility] [id number] [place] [address] 61607- 1388 Mar, Social phobia 300.23 and Panic disorder without agoraphobia 300.01 [facility] [id number] [place] [address] 25496- 9976 Mar, [facility] [id number] [place] [address] 84647- 7109 February, [facility] [id number] [place] [address] 26241- 3593 February, Major depression, recurrent 296.30 and No condition on [place] II V71.09 [facility] [id number] [place] [address] 57896- 7990 February, [facility] [id number] [place] [address] 48773- 7085 February, Panic disorder without agoraphobia 300.01 ; Social phobia 300.23 and Morbid obesity 278.01 [facility] [address], [place] [address]- 1951 Jan, [facility] [id number] [place] [address]1163- 8928 Jan, [facility] [id number] [place] [address] 19947- 7685 Dec, [facility] [id number] [place] [address] 46528- 8003 Dec, [facility] [id number] [place] [address] 19590- 9524 Dec, [facility] [id number] [address] Dec, [facility] [id number] Dec, [facility] [id number] [address] Dec, [facility] [id number] Dec, [facility] [id number] [place] [address] [id number]- 8923 Dec, [facility] [id number] [address] Dec, [facility] [id number] [address] Dec, [facility] [id number] [address] Dec, [facility] [id number] [address] Dec, [facility] [id number] [address] Dec, [facility] [id number] [address] Dec, [facility] [id number] [address] Dec, [facility] [id number] [address] Dec, IMMUNIZATIONS No Known Immunizations SOCIAL HISTORY Never Assessed REASON FOR VISIT Controlled Med Refill due 11/08 PLAN OF CARE VITAL SIGNS MEDICATIONS Medication Instructions Dosage Frequency Start Date End Date Duration Status Hydrocodone-Acetaminophen 10-325 MG Orally 4 times a day 1 tablet 6h Oct 13 Nov, 2017 28 days Active RESULTS No Results [...]
--- OUTSIDE RECORDS SUMMARY | 2018-11-30 17:30 | XMS REPORT ---
Author Author YONAS BELLE [facility] Address [address] [place] [address] Care Team Providers Care Personal Lines Advisor Name Role Phone YONAS BELLE Unavailable PROBLEMS Type Condition ICD9-CM Code OWZ86-PB Code Onset Dates Condition Status SNOMED Code Problem Mild episode of recurrent major depressive disorder F33.0 Active 268838922 Problem Primary insomnia F51.01 Active 0779581 Problem Type 2 diabetes mellitus with diabetic chronic kidney disease E11.22 Active 72158993 Problem Lymphedema I89.0 Active 448822311 Problem Chronic systolic congestive heart failure I50.22 Active 522696989 Problem Constipation, unspecified constipation type K59.00 Active 99371786 Problem Mixed hyperlipidemia E78.2 Active 082395803 Problem Stasis dermatitis of both legs I87.2 Active 75606281 Problem BMI 50.0-59.9, adult Z68.43 Active 776598826 Problem Abnormal liver function test R94.5 Active 689847577 Problem Cardiomegaly I51.7 Active 8569109 Problem Controlled substance agreement terminated Z91.14 Active 964397117 Problem HTN (hypertension) I10 Active 97786368 Problem Degenerative disc disease at L5-S1 level M51.36 Active 49028026 Problem Panic disorder F41.0 Active 351538215 Problem BPH (benign prostatic hyperplasia) N40.0 Active 501711392 Problem Chronic pain G89.29 Active 71122959 Problem Dysthymic disorder F34.1 Active 65473970 ALLERGIES No Information ENCOUNTERS Encounter Location Date Diagnosis [facility] [address] [facility] [id number] [address] Mar, Chronic pain G89.29 [facility] [address] [facility] [id number] [address] February, Chronic pain G89.29 ; Abnormal liver function test R94.5 and Degenerative disc disease at L5-S1 level M51.36 [facility] [id number] [place] [address] 15750- 4155 Jan, [facility] [id number] [place] [address] 77220- 5986 Jan, [facility] [id number] [place] [address] 19712- 3992 Jan, [facility] [address] 11667- 3388 Jan, Abnormal liver function test R94.5 ; Dysthymic disorder F34.1 and Chronic pain G89.29 [facility] [id number] [place] [address] 44579- 3073 Dec, [facility] [id number] [place] [address] 53237- 2617 Dec, HTN (hypertension) I10 ; BMI 45.0-49.9, adult Z68.42 ; Chronic pain G89.29 ; Primary insomnia F51.01 ; Mixed hyperlipidemia E78.2 ; Dysthymic disorder F34.1 ; Type 2 diabetes mellitus with diabetic chronic kidney disease E11.22 ; Stasis dermatitis of both legs I87.2 and Chronic systolic congestive heart failure I50.22 [facility] [id number] [place] [address] 58485- 6029 Dec, Chronic pain G89.29 [facility] [id number] [place] [address] 62209 -2131 Dec, Lymphedema I89.0 and Chronic systolic congestive heart failure I50.22 [facility] [id number] [place] [address] 11775- 2894 Dec, [facility] [id number] [place] [address] 24129- 2908 Nov, Type 2 diabetes mellitus with diabetic chronic kidney disease E11.22 [facility] [id number] [place] [address] 73298- 1322 Nov, Chronic pain G89.29 and Dysthymic disorder F34.1 [facility] [id number] [place] [address] 71979- 0608 08 Nov, 2017 [place] [id number] [place] [address] 82667- 8594 Oct, HTN (hypertension) I10 ; Chronic pain G89.29 ; BMI 45.0-49.9 , adult Z68.42 ; Primary insomnia F51.01 ; Mixed hyperlipidemia E78.2 ; Dysthymic disorder F34.1 ; Type 2 diabetes mellitus with diabetic chronic kidney disease E11.22 ; Chronic congestive heart failure, unspecified congestive heart failure type I50.9 ; Acute non-recurrent maxillary sinusitis J01.00 and BMI 50.0-59.9, adult Z68.43 [facility] [id number] [place] [address] 30211- 6299 17 Oct, 2017 HTN (hypertension) I10 and Dysthymic disorder F34.1 [facility] [id number] [place] [address] 08525- 7502 Oct, [facility] [id number] [place] [address] 03436- 5918 Oct, HTN (hypertension) I10 [facility] [id number] [place] [address] 95713- 7235 Oct, Chronic pain G89.29 [facility] [id number] [place] [address] 77284- 9537 Sep, [facility] [id number] [place] [address] 41280- 2091 Sep, HTN (hypertension) I10 ; Chronic pain G89.29 ; BMI 45.0-49.9 , adult Z68.42 ; Primary insomnia F51.01 ; Mixed hyperlipidemia E78.2 ; Dysthymic disorder F34.1 and Type 2 diabetes mellitus with diabetic chronic kidney disease E11.22 [facility] [id number] [place] [address] 60204- 1228 Sep, Chronic pain G89.29 [facility] [id number] [address] 0613 Sep, Acute on chronic heart failure, unspecified heart failure type I50.9 [facility] [address] [address] 5[address] Sep, Acute on chronic heart failure, unspecified heart failure type I50.9 ; Type 2 diabetes mellitus with diabetic chronic kidney disease E11.22 and BMI 50.0-59.9, adult Z68.43 [facility] [address] [address] 6[address] Sep, Acute on chronic heart failure, unspecified heart failure type I50.9 ; HTN (hypertension) I10 and Type 2 diabetes mellitus with diabetic chronic kidney disease E11.22 [facility] [address] [address] 9551 Aug, Acute on chronic heart failure, unspecified heart failure type I50.9 ; HTN (hypertension) I10 ; Type 2 diabetes mellitus with diabetic chronic kidney disease E11.22 ; Cellulitis of right lower extremity L03.115 and BMI 50.0-59.9, adult Z68.43 [facility] [address] [address] Aug, Acute upper respiratory infection, unspecified J06.9 ; Other viral agents as the cause of diseases classified elsewhere B97.89 ; Constipation, unspecified constipation type K59.00 ; BMI 50.0-59.9, adult Z68.43 and BMI 60.0-69.9, adult Z68.44 [facility] [id number] [address] 7860 Aug, Chronic pain G89.29 [facility] [place] [address] [place] [address] 61246- 4530 Jul, Chronic pain G89.29 [facility] [address] [address] 0657 Jul, Chronic pain G89.29 [place] [place] [address] [address]- 9165 Jun, Chronic pain G89.29 [facility] [id number] [place] [address] 90483- 5351 Jun, [facility] [id number] [place] [address] 87054- 8270 Jun, Chronic pain G89.29 [facility] [id number] [place] [address] 70358- 3715 May, Chronic pain G89.29 and Type 2 diabetes mellitus with diabetic chronic kidney disease E11.22 [place] [id number] [place] [address] 41453- 9704 16 May, 2017 [place] [id number] [place] [address] 56160- 7215 May, Chronic pain G89.29 and Anxiety F41.9 [place] [id number] [place] [address] 99979- 3181 May, Type 2 diabetes mellitus with diabetic chronic kidney disease E11.22 ; Social phobia F40.10 ; Morbid obesity E66.01 ; Chronic pain G89.29 ; HTN (hypertension) I10 ; Degenerative disc disease at L5-S1 level M51.36 ; BPH (benign prostatic hyperplasia) N40.0 ; Pain in right knee M25.561 and 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 [place] [address] [address]- 9397 Apr, Anxiety F41.9 [facility] [place] [id number] [place] [address] 57908- 3784 Apr, [facility] [place] [id number] [place] [address] 71100- 8748 Mar, [place] [id number] [place] [address] 12052- 7490 Mar, Edema, unspecified type R60.9 and Anxiety F41.9 [place] [id number] [place] [address] 26279- 5095 Mar, Social phobia F40.10 ; Mixed obsessional thoughts and acts F42.2 and Mild episode of recurrent major depressive disorder F33.0 [facility] [place] [id number] [place] [address] 80580- 2618 Mar, Degenerative disc disease at L5-S1 level M51.36 [facility] [place] [address] 99315- 3452 Mar, [facility] [address] 46616- 3204 Mar, [place] [id number] [place] [address] 43271- 6645 Mar, [facility] [place] [id number] [place] [address] 52492- 0935 February, Morbid obesity E66.01 ; Anxiety F41.9 ; Degenerative disc disease at L5-S1 level M51.36 ; BPH (benign prostatic hyperplasia) N40.0 ; Social phobia F40.10 ; HTN (hypertension) I10 ; Edema, unspecified type R60.9 and Screening cholesterol level Z13.220 [facility] [place] [id number] [place] [address] 90084- 1657 February, Social phobia, generalized F40.11 [place] [id number] [place] [address] 10005- 0185 February, Chronic pain G89.29 [place] [id number] [place] [address] 99093- 6991 February, [place] [id number] [place] [address] 13344- 2474 Jan, Chronic pain G89.29 [place] [place] [id number] [place] [address] 27806- 3261 Jan, Panic disorder [episodic paroxysmal anxiety] without agoraphobia F41.0 [facility] [id number] [place] [address] 48847- 0689 13 Dec, 2016 Morbid obesity E66.01 ; Anxiety F41.9 ; Chronic pain G89.29 ; HTN (hypertension) I10 ; BPH (benign prostatic hyperplasia) N40.0 ; Generalized edema R60.1 and Cough R05 [facility] [id number] [place] [address] 16933- 5787 14 Nov, 2016 Chronic pain G89.29 [facility] [id number] [place] [address] 10107 2548 03 Nov, 2016 Social phobia, generalized F40.11 and Mild episode of recurrent major depressive disorder F33.0 [place] [id number] [place] [address] 60838- 3569 Oct, Chronic pain G89.29 [place] [place] [id number] [place] [address] 02883- 5945 Oct, Social phobia, generalized F40.11 [place] [place] [id number] [place] [address] 00280- 4857 Sep, [place] [id number] [place] [address] 99200- 0881 Sep, [facility] [id number] [place] [address] 12893- 4462 Sep, [facility] [id number] [place] [address] 04262 2543 Sep, [facility] [id number] [place] [address] 63157- 2920 Sep, [facility] [id number] [place] [address] 64200- 0261 Sep, Social phobia, generalized F40.11 and Mild episode of recurrent major depressive disorder F33.0 [facility] [id number] [place] [address] 65733- 1583 Sep, [facility] [address] [address]- 9260 Aug, [facility] [id number] [place] [address] 84388- 5874 Aug, [facility] [id number] [place] [address] 74924- 9355 Aug, Bronchitis J40 [facility] [address] 65997- 6096 15 Aug, 2016 [facility] [id number] [place] [address] 45067- 2484 10 Aug, 2016 Osteoarthritis of knee, unspecified M17.9 [facility] [id number] [place] [address] 34411- 4287 09 Aug, 2016 Morbid obesity E66.01 ; Chronic pain G89.29 ; Anxiety F41.9 ; Social phobia F40.10 ; HTN (hypertension) I10 ; Social phobia, generalized F40.11 ; Acute upper respiratory infection, unspecified J06.9 and Other viral agents as the cause of diseases classified elsewhere B97.89 [facility] [id number] [place] [address] 19707- 8243 Aug, Social phobia, generalized F40.11 and Dysthymic disorder F34.1 [facility] [id number] [place] [address] 31845- 5844 Jul, [facility] [id number] [place] [address] 91247- 2181 Jun, [facility] [id number] [place] [address] 62121- 4300 May, [facility] [id number] [place] [address] 95212- 6223 May, [facility] [id number] [place] [address] 34949- 9880 May, [facility] [address] [place] [address]- 9696 May, [facility] [address] [address]- 5862 May, [facility] [address], [place] [address]- 5513 May, [facility] [address] [place] [address] 71538- 9982 May, [facility] [id number] [place] [address] 31357- 7479 Apr, [facility] [address] [place] [address] 28186- 4223 Apr, Chondromalacia, right knee M94.261 [facility] [address] [place] [address] 29060- 1332 Apr, Pain in unspecified hip M25.559 [facility] [id number] [place] [address] 35023- 1847 Mar, Social phobia, unspecified F40.10 and Pain in unspecified hip M25.559 [facility] [address] [place] [address] 18975- 4179 February, [facility] [address] [address]- 8332 February, Social phobia F40.10 [facility] [address] [address]- 3731 February, Morbid obesity E66.01 ; Chronic pain G89.29 ; Social phobia F40.10 ; Pelvic pain in male R10.2 ; HTN (hypertension) I10 ; Degenerative disc disease at L5-S1 level M51.36 ; BPH (benign prostatic hyperplasia) N40.0 and Pain in right knee M25.561 [facility] [address] [address]- 9143 Jan, [facility] [id number] [place] [address] 29851- 1781 Jan, [facility] [address] 68689- 3015 Jan, [facility] [address] 92907- 7837 Dec, [facility] [address] 26819- 0834 Dec, [facility] [address] 77510- 5170 Dec, [facility] [address] 87851 -6252 Nov, Strep pharyngitis J02.0 ; Influenza A J10.1 and Cough R05 [address] 00939- 5468 Nov, [facility] [address] 35273- 2275 Nov, [place] [address] 22551- 7825 Oct, HTN (hypertension) I10 ; Morbid obesity E66.01 ; Anxiety F41.9 ; Social phobia F40.10 ; Panic disorder F41.0 ; Degenerative disc disease at L5-S1 level M51.36 and Hypercholesterolemia E78.0 [place] [address] 81193- 8344 Oct, Panic disorder [episodic paroxysmal anxiety] without agoraphobia F41.0 and Social phobia, generalized F40.11 [place] [address] 53953- 0365 Oct, [facility] [address] 17311- 5228 Sep, [place] [address] 15794- 9894 Sep, [facility] [id number] [place] [address] 15684- 7961 Sep, [facility] [id number] [place] [address] 97142- 1953 Sep, [facility] [id number] [place] [address] 98784- 5486 Aug, [facility] [id number] [place] [address] 16490- 5987 Aug, [facility] [id number] [place] [address] 64463- 3671 Aug, [facility] [id number] [place] [address] 54154- 3129 Aug, Social phobia F40.10 and Panic disorder F41.0 [facility] [id number] [place] [address] 02709- 5935 Aug, [facility] [id number] [place] [address] 93268- 1951 Aug, [facility] [id number] [place] [address] 29907- 3577 Aug, [facility] [id number] [place] [address] 66546- 1498 Aug, [facility] [id number] [place] [address] 67383- 9153 Jul, [facility] [id number] [place] [address] 34363- 9538 Jul, Morbid obesity E66.01 ; Chronic pain G89.29 ; Anxiety F41.9 ; Social phobia F40.10 ; Panic disorder F41.0 ; Pelvic pain in male R10.2 ; Insomnia G47.00 and HTN (hypertension) I10 [facility] [id number] [place] [address] 56738- 6876 Jul, [facility] [address], [place] [address]- 2427 Jul, [facility] [id number] [place] [address] 36002- 2330 16 Jun, 2015 Degenerative disc disease 722.6 [facility] [id number] [place] [address] 56193- 2266 Jun, Pain in joint, pelvic region and thigh 719.45 ; Morbid obesity 278.01 ; Essential hypertension, benign 401.1 and Constipation 564.00 [facility] [id number] [address]- 8701 May, [facility] [id number] [place] [address] 91052- 2386 May, [facility] [id number] [place] [address] 71823- 8254 May, [facility] [id number] [place] [address] 00319- 2298 May, [facility] [id number] [place] [address] 29765- 2406 May, [facility] [id number] [place] [address] 95995- 8631 May, [facility] [address] [place] [address] 66206- 8214 May, Essential hypertension, benign 401.1 ; Anxiety state, unspecified 300.00 ; Panic disorder without agoraphobia 300.01 ; Social phobia 300.23 ; Morbid obesity 278.01 ; Other chronic pain 338.29 and Insomnia 780.52 [facility] [id number] [place] [address] 24521- 3614 May, Essential hypertension 401.9 [facility] [id number] [place] [address] 02340- 4241 May, Pain in joint, pelvic region and thigh 719.45 [facility] [address] [place] [address]- 0031 May, Essential hypertension, benign 401.1 [facility] [id number] [place] [address] 50379- 1532 May, Panic disorder without agoraphobia 300.01 and Social phobia 300.23 [facility] [address], [place] [address]- 6159 May, [facility] [id number] [place] [address] 96673- 0637 May, [facility] [address] [place] [address] 62139- 6981 Apr, Chronic pain 338.29 [facility] [id number] [place] [address] 54064- 5981 Apr, [facility] [id number] [place] [address] 66118- 2499 Apr, [facility] [address] [address]- 2680 Apr, [facility] [id number] [place] [address] 90258- 8739 Apr, [facility] [address] [address]- 9022 Apr, [facility] [address], [place] [address]- 5586 Apr, [facility] [address] [address]- 7625 Apr, [facility] [address], [place] [address]- 6871 Apr, Essential hypertension, benign 401.1 ; Morbid obesity 278.01 ; Anxiety state, unspecified 300.00 ; Panic disorder without agoraphobia 300.01 ; Social phobia 300.23 and Chronic pain 338.29 [facility] [address], [place] [address]- 5791 Mar, [facility] [address], [place] [address]- 0728 Mar, [facility] [id number] [place] [address] 55058- 9863 Mar, [facility] [id number] [place] [address] 83502- 0264 Mar, [facility] [id number] [place] [address] 45793- 1692 Mar, Social phobia 300.23 and Panic disorder without agoraphobia 300.01 [facility] [id number] [place] [address] 32968- 6489 Mar, [facility] [id number] [place] [address] 53077- 2985 February, [facility] [id number] [place] [address] 53574- 9260 February, Major depression, recurrent 296.30 and No condition on Montgomery II V71.09 [facility] [id number] [place] [address] 74568- 0276 February, [facility] [id number] [place] [address] 57134- 5204 February, Panic disorder without agoraphobia 300.01 ; Social phobia 300.23 and Morbid obesity 278.01 [facility] [address] [address]- 3188 Jan, [facility] [id number] [place] [address] 30973- 1712 Jan, [facility] [id number] [place] [address] 65121- 7760 Dec, [facility] [id number] [place] [address] 49433- 3399 Dec, [facility] [id number] [place] [address] 59134- 4899 Dec, [facility] [address] [address]- 7421 Dec, [facility] [address], [place] [address]- 8209 Dec, [facility] [address], [place] [address]- 9908 Dec, [facility] [address] [address]- 8083 Dec, [facility] [id number] [place] [address] 56564- 2280 Dec, [facility] [id number] [address] Dec, [facility] [id number] [address] Dec, [facility] [id number] [address] Dec, [facility] [id number] [address] Dec, [facility] [id number] [address] Dec, [facility] [id number] [address] Dec, [facility] [id number] [address] Dec, [facility] [id number] [address] Dec, IMMUNIZATIONS No Known Immunizations SOCIAL HISTORY Never Assessed REASON FOR VISIT Refill request PLAN OF CARE VITAL SIGNS MEDICATIONS No [...]
--- OUTSIDE RECORDS SUMMARY | 2018-11-30 17:31 | XMS REPORT ---
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 Name Role Phone YONAS BELLE Unavailable PROBLEMS Type Condition ICD9-CM Code [id number] Code Onset Dates Condition Status SNOMED Code Problem Mild episode of recurrent major depressive disorder F33.0 Active 645913728 Problem Primary insomnia F51.01 Active 1539153 Problem Type 2 diabetes mellitus with diabetic chronic kidney disease E11.22 Active 05549352 Problem Lymphedema I89.0 Active 819248106 Problem Chronic systolic congestive heart failure I50.22 Active 632785415 Problem Constipation, unspecified constipation type K59.00 Active 42984672 Problem Mixed hyperlipidemia E78.2 Active 208944788 Problem Stasis dermatitis of both legs I87.2 Active 23220329 Problem BMI 50.0-59.9, adult Z68.43 Active 113016144 Problem Abnormal liver function test R94.5 Active 581321616 Problem Cardiomegaly I51.7 Active 6294496 Problem Controlled substance agreement terminated Z91.14 Active 419076532 Problem HTN (hypertension) I10 Active 56304183 Problem Degenerative disc disease at L5-S1 level M51.36 Active 74305568 Problem Panic disorder F41.0 Active 567808090 Problem BPH (benign prostatic hyperplasia) N40.0 Active 497819863 Problem Chronic pain G89.29 Active 17837036 Problem Dysthymic disorder F34.1 Active 70643519 ALLERGIES No Information ENCOUNTERS Encounter Location Date Diagnosis [facility] [id number], [place] [address] Apr, [facility] [address], [place] [address] Mar, Type 2 diabetes mellitus with diabetic chronic kidney disease E11.22 [facility] [id number] [place] [address] 74409- 4516 Mar, Chronic pain G89.29 [facility] [id number] [place] [address] 73231- 5408 February, Chronic pain G89.29 ; Abnormal liver function test R94.5 and Degenerative disc disease at L5-S1 level M51.36 [facility] [id number] [place] [address] 10127- 1470 Jan, [facility] [id number] [place] [address] 99431- 8046 Jan, [facility] [id number] [place] [address] 07124- 7996 Jan, [facility] [id number] [place] [address] 53016- 6428 Jan, Abnormal liver function test R94.5 ; Dysthymic disorder F34.1 and Chronic pain G89.29 [facility] [id number] [place] [address] 22852- 8422 Dec, [facility] [id number] [place] [address] 08819- 9075 Dec, HTN (hypertension) I10 ; BMI 45.0-49.9, adult Z68.42 ; Chronic pain G89.29 ; Primary insomnia F51.01 ; Mixed hyperlipidemia E78.2 ; Dysthymic disorder F34.1 ; Type 2 diabetes mellitus with diabetic chronic kidney disease E11.22 ; Stasis dermatitis of both legs I87.2 and Chronic systolic congestive heart failure I50.22 [facility] [address] [place] [address] 12124- 1666 Dec, Chronic pain G89.29 [facility]ALK IN [facility] [id number] [place] [address] 67233 -6999 Dec, Lymphedema I89.0 and Chronic systolic congestive heart failure I50.22 [facility] [address] [place] [address] 74757- 9612 Dec, [place] [address], [place] [address] 6563 Nov, Type 2 diabetes mellitus with diabetic chronic kidney disease E11.22 [place] [id number] [place] [address] 01039- 6997 Nov, Chronic pain G89.29 and Dysthymic disorder F34.1 [place] [id number] [place] [address] 77290- 3315 Nov, [place] [id number] [place] [address] 46222- 9736 Oct, HTN (hypertension) I10 ; Chronic pain G89.29 ; BMI 45.0-49.9 , adult Z68.42 ; Primary insomnia F51.01 ; Mixed hyperlipidemia E78.2 ; Dysthymic disorder F34.1 ; Type 2 diabetes mellitus with diabetic chronic kidney disease E11.22 ; Chronic congestive heart failure, unspecified congestive heart failure type I50.9 ; Acute non-recurrent maxillary sinusitis J01.00 and BMI 50.0-59.9, adult Z68.43 [place] [id number] [place] [address] 95614- 9294 Oct, HTN (hypertension) I10 and Dysthymic disorder F34.1 [place] [id number] [place] [address] 24399- 2945 Oct, [place] [id number] [place] [address] 46502- 0032 Oct, HTN (hypertension) I10 [place] [id number] [place] [address] 37262- 3349 Oct, Chronic pain G89.29 [address] [id number] [place] [address] 19487- 6783 Sep, [place] [id number] [place] [address] 85626- 2912 Sep, HTN (hypertension) I10 ; Chronic pain G89.29 ; BMI 45.0-49.9 , adult Z68.42 ; Primary insomnia F51.01 ; Mixed hyperlipidemia E78.2 ; Dysthymic disorder F34.1 and Type 2 diabetes mellitus with diabetic chronic kidney disease E11.22 [place] [id number] [place] [address] 97422- 8678 Sep, Chronic pain G89.[address] 10588- 0697 Sep, Acute on chronic heart failure, unspecified heart failure type I50.[address] 10130- 9491 Sep, Acute on chronic heart failure, unspecified heart failure type I50.9 ; Type 2 diabetes mellitus with diabetic chronic kidney disease E11.22 and BMI 50.0-59.9, adult Z68.[address] 77896- 1823 Sep, Acute on chronic heart failure, unspecified heart failure type I50.9 ; HTN (hypertension) I10 and Type 2 diabetes mellitus with diabetic chronic kidney disease E11.[address] 29734- 3524 Aug, Acute on chronic heart failure, unspecified heart failure type I50.9 ; HTN (hypertension) I10 ; Type 2 diabetes mellitus with diabetic chronic kidney disease E11.22 ; Cellulitis of right lower extremity L03.115 and BMI 50.0-59.9, adult Z68.43 [facility] WALK IN [facility] [id number] [place] [address] 11145 -3942 Aug, Acute upper respiratory infection, unspecified J06.9 ; Other viral agents as the cause of diseases classified elsewhere B97.89 ; Constipation, unspecified constipation type K59.00 ; BMI 50.0-59.9, adult Z68.43 and BMI 60.0-69.9, adult Z68.44 [id number] [place] [address] 30890- 3645 Aug, Chronic pain G89.29 [facility] [address] [place] [address] 05945- 9102 Jul, Chronic pain G89.29 [facility] [id number] [place] [address] 75132- 5024 Jul, Chronic pain G89.29 [facility] [id number] [place] [address] 89829- 3032 Jun, Chronic pain G89.29 [facility] [id number] [place] [address] 00661- 0726 18 Jun, 2017 [place] [address] 89180- 3754 06 Jun, 2017 Chronic pain G89.29 [place] [id number] [place] [address] 90742- 1027 May, Chronic pain G89.29 and Type 2 diabetes mellitus with diabetic chronic kidney disease E11.22 [place] [id number] [place] [address] 43368- 0902 16 May, 2017 [place] [id number] [place] [address] 92185- 1613 May, Chronic pain G89.29 and Anxiety F41.9 [place] [id number] [place] [address] 91893- 2342 May, Type 2 diabetes mellitus with diabetic chronic kidney disease E11.22 ; Social phobia F40.10 ; Morbid obesity E66.01 ; Chronic pain G89.29 ; HTN (hypertension) I10 ; Degenerative disc disease at L5-S1 level M51.36 ; BPH (benign prostatic hyperplasia) N40.0 ; Pain in right knee M25.561 and 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 [place] [address] [place] [address] 62158- 9368 Apr, Anxiety F41.9 [place] [id number] [place] [address] 63783- 5589 Apr, [place] [id number] [place] [address] 34839- 1314 Mar, [place] [id number] [place] [address] 43390- 5307 Mar, Edema, unspecified type R60.9 and Anxiety F41.9 [place] [id number] [place] [address] 47828- 4568 Mar, Social phobia F40.10 ; Mixed obsessional thoughts and acts F42.2 and Mild episode of recurrent major depressive disorder F33.0 [place] [id number] [place] [address] 13998- 0679 Mar, Degenerative disc disease at L5-S1 level M51.36 [place] [id number] [place] [address] 27356- 6361 Mar, [place] [address] 43538- 4098 Mar, [place] [id number] [place] [address] 15280- 8339 Mar, [place] [id number] [place] [address] 61987- 4859 February, Morbid obesity E66.01 ; Anxiety F41.9 ; Degenerative disc disease at L5-S1 level M51.36 ; BPH (benign prostatic hyperplasia) N40.0 ; Social phobia F40.10 ; HTN (hypertension) I10 ; Edema, unspecified type R60.9 and Screening cholesterol level Z13.220 [place] [id number] [place] [address] 36610- 3670 February, Social phobia, generalized F40.11 [place] [id number] [place] [address] 38608- 1557 February, Chronic pain G89.29 [address] [id number] [place] [address] 10177- 6470 February, [place] [id number] [place] [address] 31286- 0084 07 Jan, 2017 Chronic pain G89.29 [facility] [address] 48568- 9525 04 Jan, 2017 Panic disorder [episodic paroxysmal anxiety] without agoraphobia F41.0 [facility] [id number] [place] [address] 60023- 4637 Dec, Morbid obesity E66.01 ; Anxiety F41.9 ; Chronic pain G89.29 ; HTN (hypertension) I10 ; BPH (benign prostatic hyperplasia) N40.0 ; Generalized edema R60.1 and Cough R05 [address] [place] [id number] [place] [address] 35163- 1772 14 Nov, 2016 Chronic pain G89.29 [place] [id number] [place] [address] 54549- 2512 Nov, Social phobia, generalized F40.11 and Mild episode of recurrent major depressive disorder F33.0 [place] [id number] [place] [address] 54198- 4255 Oct, Chronic pain G89.29 [facility] [id number] [place] [address] 97683- 4154 Oct, Social phobia, generalized F40.11 [place] [id number] [place] [address] 25629- 5993 Sep, [facility] [id number] [place] [address] 10779- 8357 Sep, [facility] [id number] [place] [address] 81276- 7887 Sep, [facility] [id number] [place] [address] 06216- 6397 Sep, [facility] [id number] [place] [address] 35634- 5080 Sep, [facility] [id number] [place] [address] 88287- 0196 16 Sep, 2016 Social phobia, generalized F40.11 and Mild episode of recurrent major depressive disorder F33.0 [place] [id number] [place] [address] 70528- 8865 08 Sep, 2016 [address] [place] [id number] [place] [address] 98755- 3519 Aug, [place] [address] 36567- 4957 Aug, [place] [address] 44263- 5486 17 Aug, 2016 Bronchitis J40 [address] [id number] [place] [address] 72187- 1362 15 Aug, 2016 [place] [address] 18596- 5688 10 Aug, 2016 Osteoarthritis of knee, unspecified M17.9 [place] [id number] [place] [address] 18371- 2852 09 Aug, 2016 Morbid obesity E66.01 ; Chronic pain G89.29 ; Anxiety F41.9 ; Social phobia F40.10 ; HTN (hypertension) I10 ; Social phobia, generalized F40.11 ; Acute upper respiratory infection, unspecified J06.9 and Other viral agents as the cause of diseases classified elsewhere B97.89 [place] [id number] [place] [address] 53593- 0865 08 Aug, 2016 Social phobia, generalized F40.11 and Dysthymic disorder F34.1 [place] [id number] [place] [address] 37876- 6481 Jul, [place] [id number] [place] [address] 76144- 0029 Jun, [place] [id number] [place] [address] 76020- 8920 May, [facility] [address], [place] [address]- 9851 May, [facility] [address] [place] [address] 52228- 4843 May, [facility] [address], [place] [address]- 8454 May, [facility] [id number] [place] [address] 61068- 7001 May, [facility] [id number] [place] [address] 24181- 2474 May, [facility] [id number] [place] [address] 61884- 3886 May, [facility] [id number] [place] [address] 94855- 2068 Apr, [facility] [address] [place] [address] 32207- 2246 Apr, Chondromalacia, right knee M94.261 [facility] [address] [place] [address] 34280- 7142 Apr, Pain in unspecified hip M25.559 [facility] [address], [place] [address]- 4676 Mar, Social phobia, unspecified F40.10 and Pain in unspecified hip M25.559 [facility] [address], [place] [address]- 2451 February, [facility] [address], [place] [address]- 8304 February, Social phobia F40.10 [facility] [address], [place] [address]- 8805 February, Morbid obesity E66.01 ; Chronic pain G89.29 ; Social phobia F40.10 ; Pelvic pain in male R10.2 ; HTN (hypertension) I10 ; Degenerative disc disease at L5-S1 level M51.36 ; BPH (benign prostatic hyperplasia) N40.0 and Pain in right knee M25.561 [facility] [id number] [place] [address] 91765- 1083 14 Jan, 2016 [facility] [id number] [place] [address] 92881- 3161 13 Jan, 2016 [facility] [address] 64436- 2954 Jan, [facility] [id number] [place] [address] 65162- 0353 Dec, [place] [address] 41049- 3119 Dec, [place] [id number] [place] [address] 98245- 5372 Dec, [facility] [address] 28857 -8181 Nov, Strep pharyngitis J02.0 ; Influenza A J10.1 and Cough R05 [address] [id number] [place] [address] 05489- 6836 Nov, [facility] [id number] [place] [address] 02795- 3503 Nov, [place] [id number] [place] [address] 72389- 6538 Oct, HTN (hypertension) I10 ; Morbid obesity E66.01 ; Anxiety F41.9 ; Social phobia F40.10 ; Panic disorder F41.0 ; Degenerative disc disease at L5-S1 level M51.36 and Hypercholesterolemia E78.0 [facility] [id number] [place] [address] 16754- 0700 Oct, Panic disorder [episodic paroxysmal anxiety] without agoraphobia F41.0 and Social phobia, generalized F40.11 [address] [address]- 8286 Oct, [facility] [address] [place] [address] 67456- 4053 Sep, [facility] [address] [place] [address] 81032- 1113 Sep, [facility] [id number] [place] [address] 52313- 3757 Sep, [facility] [id number] [place] [address] 69121- 9684 Sep, [facility] [id number] [place] [address] 71707- 5015 Aug, [facility] [id number] [place] [address] 95302- 2094 Aug, [facility] [id number] [place] [address] 15571- 8598 Aug, [facility] [id number] [place] [address] 78409- 5494 Aug, Social phobia F40.10 and Panic disorder F41.0 [facility] [address] [place] [address] 79268- 7507 Aug, [facility] [address] [place] [address] 29128- 0229 Aug, [facility] [address] [place] [address] 67812- 0832 Aug, [facility] [address] [place] [address] 98482- 9417 Aug, [facility] [id number] [place] [address] 38191- 3133 Jul, [facility] [address], [place] [address]- 6453 Jul, Morbid obesity E66.01 ; Chronic pain G89.29 ; Anxiety F41.9 ; Social phobia F40.10 ; Panic disorder F41.0 ; Pelvic pain in male R10.2 ; Insomnia G47.00 and HTN (hypertension) I10 [facility] [id number] [place] [address] 10413- 8864 Jul, [facility] [address] 70167- 2220 Jul, [facility] [address] 57611- 6066 Jun, Degenerative disc disease 722.6 [place] [address] 18384- 1195 Jun, Pain in joint, pelvic region and thigh 719.45 ; Morbid obesity 278.01 ; Essential hypertension, benign 401.1 and Constipation 564.00 [place] [address] 52673- 6747 May, [facility] [address] 80523- 8708 May, [facility] [address] 65362- 8500 May, [facility] [address] 23748- 0560 May, [facility] [id number] [place] [address] 53955- 2654 May, [facility] [address] 49642- 7755 May, [facility] [address] 71022- 2807 May, Essential hypertension, benign 401.1 ; Anxiety state, unspecified 300.00 ; Panic disorder without agoraphobia 300.01 ; Social phobia 300.23 ; Morbid obesity 278.01 ; Other chronic pain 338.29 and Insomnia 780.52 [facility] [address] 85541- 8074 May, Essential hypertension 401.9 [facility] [address] [place] [address] 17858- 2770 May, Pain in joint, pelvic region and thigh 719.45 [facility] [address], [place] [address]- 6476 May, Essential hypertension, benign 401.1 [facility] [id number] [place] [address] 26474- 4511 May, Panic disorder without agoraphobia 300.01 and Social phobia 300.23 [facility] [id number] [place] [address] 46700- 9616 May, [facility] [id number] [place] [address] 23843- 0926 May, [facility] [id number] [place] [address] 05538- 6064 Apr, Chronic pain 338.29 [facility] [address] [place] [address] 29871 2547 Apr, [facility] [id number] [place] [address] 29153- 2547 Apr, [facility] [address], [place] [address]- 4988 Apr, [facility] [address], [place] [address]- 2540 Apr, [facility] [address], [place] [address] 2542 Apr, [facility] [id number] [place] [address] 19496- 2546 Apr, [facility] [address], [place] [address] 2543 Apr, [facility] [address] [place] [address] 20012- 9106 Apr, Essential hypertension, benign 401.1 ; Morbid obesity 278.01 ; Anxiety state, unspecified 300.00 ; Panic disorder without agoraphobia 300.01 ; Social phobia 300.23 and Chronic pain 338.29 [facility] [id number] [place] [address] 99243- 0965 Mar, [facility] [id number] [place] [address] 11037- 6914 Mar, [facility] [id number] [place] [address] 20198- 0033 Mar, [facility] [id number] [place] [address] 86357- 9170 Mar, [facility] [id number] [place] [address] 37740- 1180 Mar, Social phobia 300.23 and Panic disorder without agoraphobia 300.01 [facility] [id number] [place] [address] 82259- 7456 Mar, [facility] [id number] [place] [address] 91133- 2382 February, [facility] [id number] [place] [address] 39067- 7834 February, Major depression, recurrent 296.30 and No condition on Rolfe II V71.09 [facility] [id number] [place] [address] 33332- 7415 February, [facility] [id number] [place] [address] 23577- 7604 February, Panic disorder without agoraphobia 300.01 ; Social phobia 300.23 and Morbid obesity 278.01 [facility] [id number] [place] [address] 69205- 0647 Jan, [facility] [id number] [place] [address] 34447- 5706 Jan, [facility] [place] [facility] [address] [id number] [place] [address]- 2662 Dec, [facility] [place] [facility] [address] [id number] [place] [address]- 6244 Dec, [facility] [place] [facility] [address] [id number] [place] [address]- 8016 Dec, [facility] [place] [facility] [address] [id number] [place] [address]- 4626 Dec, [facility] [place] [facility] [address] [id number] [place] [address]- 6582 Dec, [facility] [place] [facility] [address] [id number] [place] [address]- 3433 Dec, [facility] [place] [facility] [address] [id number] [place] [address]- 6075 Dec, [facility] [place] [facility] [address] [id number] [place] [address] Dec, [facility] [place] [facility] [address] [id number] [place] [address] Dec, [facility] [place] [facility] [address] [id number] [place] [address] Dec, [facility] [place] [facility] [address] [id number] [place] [address] Dec, [facility] [place] [facility] [address] [id number] [place] [address] Dec, [facility] [place] [facility] [address] [id number] [place] [address] Dec, [facility] [place] [facility] [address] [id number] [place] [address] Dec, [facility] [place] [facility] [address] [id number] [place] [address] Dec, [facility] [place] [facility] [address] [id number] [place] [address] Dec, IMMUNIZATIONS No Known Immunizations SOCIAL HISTORY Never Assessed REASON FOR VISIT Refill request PLAN OF CARE VITAL SIGNS MEDICATIONS Medication Instructions Dosage Frequency Start Date End Date Duration Status Blood Glucose Test - Accuchecknano and lancets Once a day, PRN as directed Mar, Active Levemir FlexTouch 100 UNIT/ML Subcutaneous Once a day Inject 10 units 24h Oct, Active RESULTS No Results PROCEDURES No Known procedures INSTRUCTIONS MEDICATIONS ADMINISTERED No Known Medications MEDICAL (GENERAL) HISTORY Type Description Date Medical History hypertension Medical History morbid obesity Medical History anxiety Medical History CHF, echo 2016, with EF 20-25, moderate to severe tricuspid [facility] Medical History Social phobia, generalized Medical [...]
--- OUTSIDE RECORDS SUMMARY | 2018-11-30 17:31 | XMS REPORT ---
Author Author BRENDA JEANMARIE [facility] Address [address] [place] [address] Care Team Providers Care Panel Maker Name Role Phone JEANMARIE GUTIERREZ Unavailable PROBLEMS Type Condition ICD9-CM Code OAD16-YT Code Onset Dates Condition Status SNOMED Code Problem Mild episode of recurrent major depressive disorder F33.0 Active 649979245 Problem Primary insomnia F51.01 Active 0627868 Problem Type 2 diabetes mellitus with diabetic chronic kidney disease E11.22 Active 04067253 Problem Lymphedema I89.0 Active 288841848 Problem Chronic systolic congestive heart failure I50.22 Active 153544985 Problem Constipation, unspecified constipation type K59.00 Active 99170573 Problem Mixed hyperlipidemia E78.2 Active 233940960 Problem Stasis dermatitis of both legs I87.2 Active 71641450 Problem BMI 50.0-59.9, adult Z68.43 Active 895328407 Problem Abnormal liver function test R94.5 Active 603844753 Problem Cardiomegaly I51.7 Active 6949479 Problem Controlled substance agreement terminated Z91.14 Active 608591111 Problem HTN (hypertension) I10 Active 11855199 Problem Degenerative disc disease at L5-S1 level M51.36 Active 85464259 Problem Panic disorder F41.0 Active 989721028 Problem BPH (benign prostatic hyperplasia) N40.0 Active 698750430 Problem Chronic pain G89.29 Active 33169613 Problem Dysthymic disorder F34.1 Active 30049482 ALLERGIES No Information ENCOUNTERS Encounter Location Date Diagnosis [facility] [id number] [address] February, Chronic pain G89.29 ; Abnormal liver function test R94.5 and Degenerative disc disease at L5-S1 level M51.36 [facility] [address] [facility] [id number] [address] Jan, [facility] [address] [address] Jan, [facility] [id number] [place] [address] 18806- 7139 Jan, [facility] [id number] [place] [address] 83352- 7521 Jan, Abnormal liver function test R94.5 ; Dysthymic disorder F34.1 and Chronic pain G89.29 [facility] [id number] [place] [address] 26139- 1076 Dec, [facility] [id number] [place] [address] 55080- 1100 Dec, HTN (hypertension) I10 ; BMI 45.0-49.9, adult Z68.42 ; Chronic pain G89.29 ; Primary insomnia F51.01 ; Mixed hyperlipidemia E78.2 ; Dysthymic disorder F34.1 ; Type 2 diabetes mellitus with diabetic chronic kidney disease E11.22 ; Stasis dermatitis of both legs I87.2 and Chronic systolic congestive heart failure I50.22 [facility] [id number] [place] [address] 66700- 1908 Dec, Chronic pain G89.29 [facility] [id number] [place] [address] 74462 -0065 Dec, Lymphedema I89.0 and Chronic systolic congestive heart failure I50.22 [facility] [id number] [place] [address] 19558- 9352 Dec, [facility] [id number] [place] [address] 71065- 5756 Nov, Type 2 diabetes mellitus with diabetic chronic kidney disease E11.22 [facility] [id number] [place] [address] 78178- 0401 Nov, Chronic pain G89.29 and Dysthymic disorder F34.1 [facility] [id number] [place] [address] 44495- 8056 Nov, [place] [id number] [place] [address] 66546- 4202 Oct, HTN (hypertension) I10 ; Chronic pain G89.29 ; BMI 45.0-49.9 , adult Z68.42 ; Primary insomnia F51.01 ; Mixed hyperlipidemia E78.2 ; Dysthymic disorder F34.1 ; Type 2 diabetes mellitus with diabetic chronic kidney disease E11.22 ; Chronic congestive heart failure, unspecified congestive heart failure type I50.9 ; Acute non-recurrent maxillary sinusitis J01.00 and BMI 50.0-59.9, adult Z68.43 [place] [address] 49[address]- 1283 Oct, HTN (hypertension) I10 and Dysthymic disorder F34.1 [place] [address] 96249- 5661 Oct, [place] [address] 82489- 6794 Oct, HTN (hypertension) I10 [place] [address] 83996- 7501 Oct, Chronic pain G89.29 [place] [id number] [place] [address] 08260- 0988 Sep, [place] [address] 07903- 8325 Sep, HTN (hypertension) I10 ; Chronic pain G89.29 ; BMI 45.0-49.9 , adult Z68.42 ; Primary insomnia F51.01 ; Mixed hyperlipidemia E78.2 ; Dysthymic disorder F34.1 and Type 2 diabetes mellitus with diabetic chronic kidney disease E11.22 [place] [id number] [place] [address] 28411- 2168 Sep, Chronic pain G89.29 [place] [address] 26488- 8355 Sep, Acute on chronic heart failure, unspecified heart failure type I50.9 [place] [address] [place] [address] 69563- 5631 Sep, Acute on chronic heart failure, unspecified heart failure type I50.9 ; Type 2 diabetes mellitus with diabetic chronic kidney disease E11.22 and BMI 50.0-59.9, adult Z68.43 [place] [id number] [place] [address] 05688- 2719 Sep, Acute on chronic heart failure, unspecified heart failure type I50.9 ; HTN (hypertension) I10 and Type 2 diabetes mellitus with diabetic chronic kidney disease E11.22 [place] [id number] [place] [address] 20794- 3099 Aug, Acute on chronic heart failure, unspecified heart failure type I50.9 ; HTN (hypertension) I10 ; Type 2 diabetes mellitus with diabetic chronic kidney disease E11.22 ; Cellulitis of right lower extremity L03.115 and BMI 50.0-59.9, adult Z68.43 [facility] [id number] [place] [address] 53780 -7148 Aug, Acute upper respiratory infection, unspecified J06.9 ; Other viral agents as the cause of diseases classified elsewhere B97.89 ; Constipation, unspecified constipation type K59.00 ; BMI 50.0-59.9, adult Z68.43 and BMI 60.0-69.9, adult Z68.44 [place] [address] [place] [address] 78971- 5192 Aug, Chronic pain G89.29 [place] [id number] [place] [address] 92627- 2830 Jul, Chronic pain G89.29 [place] [id number] [place] [address] 16282- 2352 Jul, Chronic pain G89.29 [place] [id number] [place] [address] 18140- 7123 Jun, Chronic pain G89.29 [place] [address] [address] 7738 18 Jun, 2017 [place] [id number] [place] [address] 94800- 2156 06 Jun, 2017 Chronic pain G89.29 [place] [id number] [place] [address] 54595- 1467 May, Chronic pain G89.29 and Type 2 diabetes mellitus with diabetic chronic kidney disease E11.22 [place] [id number] [place] [address] 77985- 5189 16 May, 2017 [place] [id number] [place] [address] 70918- 7752 May, Chronic pain G89.29 and Anxiety F41.9 [place] [id number] [place] [address] 50380- 2992 May, Type 2 diabetes mellitus with diabetic chronic kidney disease E11.22 ; Social phobia F40.10 ; Morbid obesity E66.01 ; Chronic pain G89.29 ; HTN (hypertension) I10 ; Degenerative disc disease at L5-S1 level M51.36 ; BPH (benign prostatic hyperplasia) N40.0 ; Pain in right knee M25.561 and 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 [place] [address] [place] [address] 22129- 4231 Apr, Anxiety F41.9 [place] [id number] [place] [address] 44920- 4045 Apr, [place] [address] [place] [address] 53979- 5474 Mar, [place] [id number] [place] [address] 35942- 4958 Mar, Edema, unspecified type R60.9 and Anxiety F41.9 [place] [id number] [place] [address] 72271- 6741 Mar, Social phobia F40.10 ; Mixed obsessional thoughts and acts F42.2 and Mild episode of recurrent major depressive disorder F33.0 [place] [address] 73267- 4113 Mar, Degenerative disc disease at L5-S1 level M51.36 [place] [address] 19910- 1433 Mar, [place] [address] 41523- 4848 Mar, [place] [address] 92271- 3911 Mar, [place] [address] 51475- 1920 February, Morbid obesity E66.01 ; Anxiety F41.9 ; Degenerative disc disease at L5-S1 level M51.36 ; BPH (benign prostatic hyperplasia) N40.0 ; Social phobia F40.10 ; HTN (hypertension) I10 ; Edema, unspecified type R60.9 and Screening cholesterol level Z13.220 [place] [address] 87272- 5243 February, Social phobia, generalized F40.11 [place] [id number] [place] [address] 70742- 8977 February, Chronic pain G89.29 [place] [address] 69556- 0068 February, [place] [id number] [place] [address] 75676- 5508 Jan, Chronic pain G89.29 [place] [address] 53622- 3362 Jan, Panic disorder [episodic paroxysmal anxiety] without agoraphobia F41.0 [place] [id number] [place] [address] 46884- 6663 13 Mar, 2017 Morbid obesity E66.01 ; Anxiety F41.9 ; Chronic pain G89.29 ; HTN (hypertension) I10 ; BPH (benign prostatic hyperplasia) N40.0 ; Generalized edema R60.1 and Cough R05 [facility] [id number] [place] [address] 71151 2546 14 Nov, 2016 Chronic pain G89.29 [facility] [id number] [place] [address] 70384 2546 Nov, Social phobia, generalized F40.11 and Mild episode of recurrent major depressive disorder F33.0 [facility] [id number] [place] [address] 97303- 8036 Oct, Chronic pain G89.29 [facility] [id number] [place] [address] 87948 2542 Oct, Social phobia, generalized F40.11 [facility] [id number] [place] [address] 88097- 1177 Sep, [facility] [id number] [place] [address] 18373 2548 Sep, [facility] [id number] [place] [address] 12731 2544 Sep, [facility] [id number] [place] [address] 93890 254 Sep, [facility] [id number] [place] [address] 89749 2546 Sep, [facility] [id number] [place] [address] 53353 2549 Sep, Social phobia, generalized F40.11 and Mild episode of recurrent major depressive disorder F33.0 [facility] [id number] [place] [address] 26219 2546 Sep, [facility] [id number] [place] [address] 98290- 0807 Aug, [facility] [id number] [place] [address] 88467- 1287 Aug, [facility] [id number] [place] [address] 31484- 9836 17 Aug, 2016 Bronchitis J40 [facility] [id number] [place] [address] 20469- 1675 15 Aug, 2016 [facility] [id number] [place] [address] 95971- 9272 10 Aug, 2016 Osteoarthritis of knee, unspecified M17.9 [facility] [id number] [place] [address] 71954- 9005 09 Aug, 2016 Morbid obesity E66.01 ; Chronic pain G89.29 ; Anxiety F41.9 ; Social phobia F40.10 ; HTN (hypertension) I10 ; Social phobia, generalized F40.11 ; Acute upper respiratory infection, unspecified J06.9 and Other viral agents as the cause of diseases classified elsewhere B97.89 [facility] [id number] [place] [address] 86755- 3960 Aug, Social phobia, generalized F40.11 and Dysthymic disorder F34.1 [facility] [id number] [place] [address] 70960- 3417 Jul, [facility] [id number] [place] [address] 68741- 7054 Jun, [facility] [id number] [place] [address] 43816- 0739 May, [facility] [id number] [place] [address] 10462- 7907 May, [facility] [id number] [place] [address] 64923- 1933 May, [facility] [id number] [place] [address] 36982- 3099 May, [facility] [id number] [place] [address] 40915- 6351 May, [facility] [address] [address]- 4242 May, [facility] [address] [place] [address] 07329- 9575 May, [facility] [id number] [place] [address] 18117- 5685 Apr, [facility] [id number] [place] [address] 51586- 9400 Apr, Chondromalacia, right knee M94.261 [facility] [id number] [place] [address] 94155- 6988 Apr, Pain in unspecified hip M25.559 [facility] [id number] [place] [address] 38569- 7672 Mar, Social phobia, unspecified F40.10 and Pain in unspecified hip M25.559 [facility] [id number] [place] [address] 31728- 7562 February, [facility] [id number] [place] [address] 32963- 2208 February, Social phobia F40.10 [facility] [address] [place] [address] 23662- 8869 February, Morbid obesity E66.01 ; Chronic pain G89.29 ; Social phobia F40.10 ; Pelvic pain in male R10.2 ; HTN (hypertension) I10 ; Degenerative disc disease at L5-S1 level M51.36 ; BPH (benign prostatic hyperplasia) N40.0 and Pain in right knee M25.561 [facility] [id number] [place] [address] 39500- 9061 Jan, [facility] [address] [address]- 4506 Jan, [facility] [id number] [place] [address] 10788- 3156 Jan, [facility] [id number] [place] [address] 80971- 9832 Dec, [facility] [id number] [place] [address] 70152- 9436 Dec, [facility] [id number] [place] [address] 88355- 0069 Dec, [facility] [address] 25884 -1031 Nov, Strep pharyngitis J02.0 ; Influenza A J10.1 and Cough R05 [address] 89529- 1163 Nov, [facility] [address] 97641- 3840 Nov, [facility] [id number] [place] [address] 74994- 2298 Oct, HTN (hypertension) I10 ; Morbid obesity E66.01 ; Anxiety F41.9 ; Social phobia F40.10 ; Panic disorder F41.0 ; Degenerative disc disease at L5-S1 level M51.36 and Hypercholesterolemia E78.0 [facility] [id number] [place] [address] 66823- 7931 Oct, Panic disorder [episodic paroxysmal anxiety] without agoraphobia F41.0 and Social phobia, generalized F40.11 [facility] [id number] [place] [address] 45078- 1676 Oct, [facility] [address] 42282- 2464 Sep, [facility] [id number] [place] [address] 38658- 7158 Sep, [facility] [id number] [place] [address] 94967- 7614 Sep, [facility] [address] [address]- 0890 Sep, [facility] [id number] [place] [address] 40544- 2852 Aug, [facility] [id number] [place] [address] 85159- 7344 Aug, [facility] [id number] [place] [address] 13965- 6515 Aug, [facility] [id number] [place] [address] 00192- 9576 Aug, Social phobia F40.10 and Panic disorder F41.0 [facility] [id number] [place] [address] 74683- 5701 Aug, [facility] [id number] [place] [address] 85713- 2626 Aug, [facility] [id number] [place] [address] 22637- 4101 Aug, [facility] [id number] [place] [address] 53961- 5506 Aug, [facility] [id number] [place] [address] 79644- 9071 Jul, [facility] [id number] [place] [address] 66081- 5728 Jul, Morbid obesity E66.01 ; Chronic pain G89.29 ; Anxiety F41.9 ; Social phobia F40.10 ; Panic disorder F41.0 ; Pelvic pain in male R10.2 ; Insomnia G47.00 and HTN (hypertension) I10 [facility] [id number] [place] [address] 88142- 6966 Jul, [facility] [id number] [place] [address] 36488- 1720 Jul, [facility] [address] [place] [address]- 6670 16 Jun, 2015 Degenerative disc disease 722.6 [facility] [id number] [place] [address] 77326- 9388 Jun, Pain in joint, pelvic region and thigh 719.45 ; Morbid obesity 278.01 ; Essential hypertension, benign 401.1 and Constipation 564.00 [facility] [id number] [place] [address] 33569- 6818 May, [facility] [id number] [place] [address] 70036- 8420 May, [facility] [id number] [place] [address] 92898- 1156 May, [facility] [id number] [place] [address] 69278- 1568 May, [facility] [id number] [place] [address] 64121- 4868 May, [facility] [id number] [place] [address] 73914- 9267 May, [facility] [id number] [place] [address] 07636- 5442 May, Essential hypertension, benign 401.1 ; Anxiety state, unspecified 300.00 ; Panic disorder without agoraphobia 300.01 ; Social phobia 300.23 ; Morbid obesity 278.01 ; Other chronic pain 338.29 and Insomnia 780.52 [facility] [address] [place] [address] 04083- 6864 May, Essential hypertension 401.9 [facility] [id number] [place] [address] 12027- 5274 May, Pain in joint, pelvic region and thigh 719.45 [facility] [id number] [place] [address] 86167- 4075 May, Essential hypertension, benign 401.1 [facility] [address] [address]- 5592 May, Panic disorder without agoraphobia 300.01 and Social phobia 300.23 [facility] [id number] 9078 May, [facility] [address], [place] [address]- 8238 May, [facility] [id number] [place] [address] 00354- 1816 Apr, Chronic pain 338.29 [facility] [id number] [place] [address] 57523- 5929 Apr, [facility] [id number] [place] [address] 18241- 8936 Apr, [facility] [id number] [place] [address] 58329- 6419 Apr, [facility] [id number] [place] [address] 14139- 4050 Apr, [facility] [id number] [place] [address] 93224- 3539 Apr, [facility] [id number] [address] 1328 Apr, [facility] [id number] [address] Apr, [facility] [id number] [address] Apr, Essential hypertension, benign 401.1 ; Morbid obesity 278.01 ; Anxiety state, unspecified 300.00 ; Panic disorder without agoraphobia 300.01 ; Social phobia 300.23 and Chronic pain 338.29 [facility] [id number] [id number] Mar, [facility] [id number] [address] 1031 Mar, [facility] [id number] [address] 7308 Mar, [facility] [id number] [address] 7610 Mar, [facility] [id number] [address]30 Mar, Social phobia 300.23 and Panic disorder without agoraphobia 300.01 [facility] [id number] [address] 9821 Mar, [facility] [id number] [place] [address] 28702- 6816 February, [facility] [id number] [place] [address] 08321- 4757 February, Major depression, recurrent 296.30 and No condition on Arcadia II V71.09 [facility] [id number] [address] 480[address] February, [facility] [id number] [place] [address] 47013- 1714 February, Panic disorder without agoraphobia 300.01 ; Social phobia 300.23 and Morbid obesity 278.01 [facility] [id number] [address] Jan, [facility] [id number] [address] 9484 Jan, [facility] [id number] [address] 8888 Dec, [facility] [id number] [place] [address] 61568- 4893 Dec, [facility] [id number] [address] 0749 Dec, [facility] [id number] [place] [address] 18589- 7539 Dec, [facility] [id number] [address] 5946 Dec, [facility] [id number] [address] 3763 Dec, [facility] [id number] [address]- 7169 Dec, [facility] [id number] [address] 4140 Dec, [facility] [id number] [address] 1236 Dec, [facility] [id number] [place] [address] 83357- 6016 Dec, [facility] [id number] [address]- 6650 Dec, [facility] [address] [id number] [address] Dec, [facility] [id number] [address] Dec, [facility] [id number] [address] Dec, [facility] [id number] [address] Dec, [facility] [id number] [address] Dec, IMMUNIZATIONS No Known Immunizations SOCIAL HISTORY Never Assessed REASON FOR VISIT Lab (walk-in)--[facility] PLAN OF CARE VITAL SIGNS MEDICATIONS No Known Medications RESULTS No Results PROCEDURES Procedure Date Ordered Result Body Site [facility] Sep 23, 2017 VENIPUNCT, ROUTINE* Sep 23, 2017 INSTRUCTIONS MEDICATIONS ADMINISTERED No Known Medications [...]
--- OUTSIDE RECORDS SUMMARY | 2018-11-30 17:32 | XMS REPORT ---
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 Name Role Phone ORESTES WATTS Unavailable PROBLEMS Type Condition ICD9-CM Code [id number] Code Onset Dates Condition Status SNOMED Code Problem Mild episode of recurrent major depressive disorder F33.0 Active 336684046 Problem Primary insomnia F51.01 Active 7035149 Problem Type 2 diabetes mellitus with diabetic chronic kidney disease E11.22 Active 69503619 Problem Lymphedema I89.0 Active 527059968 Problem Chronic systolic congestive heart failure I50.22 Active 944168147 Problem Constipation, unspecified constipation type K59.00 Active 85336201 Problem Mixed hyperlipidemia E78.2 Active 749907245 Problem Stasis dermatitis of both legs I87.2 Active 14222775 Problem BMI 50.0-59.9, adult Z68.43 Active 847038018 Problem Abnormal liver function test R94.5 Active 940033767 Problem Cardiomegaly I51.7 Active 9710327 Problem Controlled substance agreement terminated Z91.14 Active 816979920 Problem HTN (hypertension) I10 Active 39851323 Problem Degenerative disc disease at L5-S1 level M51.36 Active 39809021 Problem Panic disorder F41.0 Active 546145080 Problem BPH (benign prostatic hyperplasia) N40.0 Active 334548019 Problem Chronic pain G89.29 Active 85803354 Problem Dysthymic disorder F34.1 Active 13509184 ALLERGIES No Information ENCOUNTERS Encounter Location Date Diagnosis [facility] [address] [facility] [id number] [address] Jan, [facility] [address] [address] Jan, [facility] [id number] [address] Jan, [facility] [id number] [place] [address] 17385- 4353 Jan, Abnormal liver function test R94.5 ; Dysthymic disorder F34.1 and Chronic pain G89.29 [facility] [id number] [place] [address] 91038- 7845 Dec, [facility] [id number] [place] [address] 63563- 6727 Dec, HTN (hypertension) I10 ; BMI 45.0-49.9, adult Z68.42 ; Chronic pain G89.29 ; Primary insomnia F51.01 ; Mixed hyperlipidemia E78.2 ; Dysthymic disorder F34.1 ; Type 2 diabetes mellitus with diabetic chronic kidney disease E11.22 ; Stasis dermatitis of both legs I87.2 and Chronic systolic congestive heart failure I50.22 [facility] [id number] [place] [address] 62779- 2183 Dec, Chronic pain G89.29 [facility] [id number] [place] [address] 67089 -1152 Dec, Lymphedema I89.0 and Chronic systolic congestive heart failure I50.22 [facility] [id number] [place] [address] 55234- 8278 Dec, [facility] [id number] [place] [address] 56933- 9022 Nov, Type 2 diabetes mellitus with diabetic chronic kidney disease E11.22 [facility] [id number] [place] [address] 89653- 3283 Nov, Chronic pain G89.29 and Dysthymic disorder F34.1 [facility] [id number] [place] [address] 93620- 7648 Nov, [facility] [id number] [place] [address] 02817- 1263 Oct, HTN (hypertension) I10 ; Chronic pain G89.29 ; BMI 45.0-49.9 , adult Z68.42 ; Primary insomnia F51.01 ; Mixed hyperlipidemia E78.2 ; Dysthymic disorder F34.1 ; Type 2 diabetes mellitus with diabetic chronic kidney disease E11.22 ; Chronic congestive heart failure, unspecified congestive heart failure type I50.9 ; Acute non-recurrent maxillary sinusitis J01.00 and BMI 50.0-59.9, adult Z68.43 [facility] [id number] [place] [address] 28247- 3300 17 Oct, 2017 HTN (hypertension) I10 and Dysthymic disorder F34.1 [facility] [id number] [place] [address] 29149- 4255 Oct, [facility] [id number] [place] [address] 42508- 8459 Oct, HTN (hypertension) I10 [facility] [id number] [place] [address] 59333- 4188 Oct, Chronic pain G89.29 [facility] [id number] [place] [address] 12543- 5581 Sep, [facility] [id number] [place] [address] 93611- 7242 Sep, HTN (hypertension) I10 ; Chronic pain G89.29 ; BMI 45.0-49.9 , adult Z68.42 ; Primary insomnia F51.01 ; Mixed hyperlipidemia E78.2 ; Dysthymic disorder F34.1 and Type 2 diabetes mellitus with diabetic chronic kidney disease E11.22 [facility] [id number] [place] [address] 42420- 9791 Sep, Chronic pain G89.29 [facility] [id number] [place] [address] 65954- 7913 Sep, Acute on chronic heart failure, unspecified heart failure type I50.9 [facility] [id number] [place] [address] 20784- 6355 Sep, Acute on chronic heart failure, unspecified heart failure type I50.9 ; Type 2 diabetes mellitus with diabetic chronic kidney disease E11.22 and BMI 50.0-59.9, adult Z68.43 [facility] [id number] [place] [address] 86065- 0187 Sep, Acute on chronic heart failure, unspecified heart failure type I50.9 ; HTN (hypertension) I10 and Type 2 diabetes mellitus with diabetic chronic kidney disease E11.22 [facility] [address] 42183- 0072 Aug, Acute on chronic heart failure, unspecified heart failure type I50.9 ; HTN (hypertension) I10 ; Type 2 diabetes mellitus with diabetic chronic kidney disease E11.22 ; Cellulitis of right lower extremity L03.115 and BMI 50.0-59.9, adult Z68.43 [facility] [id number] [place] [address] 24361 -6117 Aug, Acute upper respiratory infection, unspecified J06.9 ; Other viral agents as the cause of diseases classified elsewhere B97.89 ; Constipation, unspecified constipation type K59.00 ; BMI 50.0-59.9, adult Z68.43 and BMI 60.0-69.9, adult Z68.44 [facility] [address] 98802- 7401 Aug, Chronic pain G89.29 [facility] [id number] [place] [address] 49255- 2816 Jul, Chronic pain G89.29 [facility] [id number] [place] [address] 82481- 7749 Jul, Chronic pain G89.29 [facility] [address] 74381- 3641 Jun, Chronic pain G89.29 [facility] [id number] [place] [address] 77726- 3885 Jun, [facility] [address] 98023- 0977 Jun, Chronic pain G89.29 [facility] [address] [place] [address] 69705- 5764 May, Chronic pain G89.29 and Type 2 diabetes mellitus with diabetic chronic kidney disease E11.22 [facility] [id number] [place] [address] 77253- 4097 16 May, 2017 [facility] [id number] [place] [address] 79419- 9122 May, Chronic pain G89.29 and Anxiety F41.9 [facility] [id number] [place] [address] 03176- 2975 May, Type 2 diabetes mellitus with diabetic chronic kidney disease E11.22 ; Social phobia F40.10 ; Morbid obesity E66.01 ; Chronic pain G89.29 ; HTN (hypertension) I10 ; Degenerative disc disease at L5-S1 level M51.36 ; BPH (benign prostatic hyperplasia) N40.0 ; Pain in right knee M25.561 and 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 [facility] [id number] [place] [address] 62695- 7163 Apr, Anxiety F41.9 [facility] [id number] [place] [address] 26256- 5579 Apr, [facility] [id number] [place] [address] 37526- 6093 Mar, [facility] [id number] [place] [address] 50345- 9846 Mar, Edema, unspecified type R60.9 and Anxiety F41.9 [facility] [id number] [place] [address] 93357- 1446 Mar, Social phobia F40.10 ; Mixed obsessional thoughts and acts F42.2 and Mild episode of recurrent major depressive disorder F33.0 [facility] [id number] [place] [address] 75093- 5488 Mar, Degenerative disc disease at L5-S1 level M51.36 [facility] [id number] [place] [address] 63820- 2288 Mar, [facility] [id number] [place] [address] 82567- 8237 Mar, [facility] [id number] [place] [address] 90656- 7450 Mar, [facility] [address] 28533- 1537 February, Morbid obesity E66.01 ; Anxiety F41.9 ; Degenerative disc disease at L5-S1 level M51.36 ; BPH (benign prostatic hyperplasia) N40.0 ; Social phobia F40.10 ; HTN (hypertension) I10 ; Edema, unspecified type R60.9 and Screening cholesterol level Z13.220 [facility] [address] 00811- 1940 February, Social phobia, generalized F40.11 [facility] [id number] [place] [address] 12909- 3777 February, Chronic pain G89.29 [facility] [id number] [place] [address] 87204- 3987 February, [facility] [id number] [place] [address] 49502- 6662 Jan, Chronic pain G89.29 [facility] [id number] [place] [address] 85413- 3121 Jan, Panic disorder [episodic paroxysmal anxiety] without agoraphobia F41.0 [facility] [id number] [place] [address] 46962- 4289 Dec, Morbid obesity E66.01 ; Anxiety F41.9 ; Chronic pain G89.29 ; HTN (hypertension) I10 ; BPH (benign prostatic hyperplasia) N40.0 ; Generalized edema R60.1 and Cough R05 [facility] [id number] [place] [address] 56193- 2546 14 Nov, 2016 Chronic pain G89.29 [facility] [address] [facility] [id number] [place] [address] 04570 2546 03 Nov, 2016 Social phobia, generalized F40.11 and Mild episode of recurrent major depressive disorder F33.0 [facility] [id number] [place] [address] 31729- 3466 Oct, Chronic pain G89.29 [facility] [id number] [place] [address] 28239 2546 Oct, Social phobia, generalized F40.11 [facility] [id number] [place] [address] 73934- 6186 Sep, [facility] [id number] [place] [address] 04282- 3276 Sep, [facility] [id number] [place] [address] 70684- 3801 Sep, [facility] [id number] [place] [address] 12523- 9944 Sep, [facility] [id number] [place] [address] 54423- 6557 Sep, [facility] [id number] [place] [address] 67607- 4753 Sep, Social phobia, generalized F40.11 and Mild episode of recurrent major depressive disorder F33.0 [facility] [address] [address]- 3666 Sep, [facility] [id number] [place] [address] 50937 2546 Aug, [facility] [id number] [place] [address] 91389 2546 Aug, [facility] [id number] [place] [address] 47584- 9476 Aug, Bronchitis J40 [facility] [id number] [place] [address] 57817- 5262 15 Aug, 2016 [facility] [id number] [place] [address] 06374- 1884 Aug, Osteoarthritis of knee, unspecified M17.9 [facility] [id number] [place] [address] 78768- 9103 09 Aug, 2016 Morbid obesity E66.01 ; Chronic pain G89.29 ; Anxiety F41.9 ; Social phobia F40.10 ; HTN (hypertension) I10 ; Social phobia, generalized F40.11 ; Acute upper respiratory infection, unspecified J06.9 and Other viral agents as the cause of diseases classified elsewhere B97.89 [facility] [id number] [place] [address] 13194- 5632 Aug, Social phobia, generalized F40.11 and Dysthymic disorder F34.1 [facility] [id number] [place] [address] 58367- 2184 Jul, [facility] [id number] [place] [address] 72290- 7745 Jun, [facility] [id number] [place] [address] 32751- 9145 May, [facility] [id number] [place] [address] 46337- 7538 May, [facility] [id number] [place] [address] 43108- 3956 May, [facility] [id number] [place] [address] 42918- 7495 May, [facility] [id number] [place] [address] 63014- 9511 May, [facility] [id number] [place] [address] 55058- 0612 May, [facility] [id number] [place] [address] 89933- 7574 May, [facility] [id number] [place] [address] 88305- 6207 Apr, [facility] [id number] [place] [address] 10726- 5795 Apr, Chondromalacia, right knee M94.261 [facility] [id number] [place] [address] 39195- 0705 Apr, Pain in unspecified hip M25.559 [facility] [id number] [place] [address] 01952- 7282 Mar, Social phobia, unspecified F40.10 and Pain in unspecified hip M25.559 [facility] [id number] [place] [address] 35634- 4682 February, [facility] [id number] [place] [address] 96239- 8894 February, Social phobia F40.10 [facility] [id number] [place] [address] 32094- 2834 February, Morbid obesity E66.01 ; Chronic pain G89.29 ; Social phobia F40.10 ; Pelvic pain in male R10.2 ; HTN (hypertension) I10 ; Degenerative disc disease at L5-S1 level M51.36 ; BPH (benign prostatic hyperplasia) N40.0 and Pain in right knee M25.561 [facility] [id number] [place] [address] 75422- 3142 14 Jan, 2016 [facility] [id number] [place] [address] 96958- 2799 Jan, [facility] [id number] [place] [address] 29058- 4901 Jan, [facility] [id number] [place] [address] 45496- 5233 Dec, [facility] [id number] [place] [address] 81795- 7554 Dec, [facility] [id number] [place] [address] 81761- 3432 Dec, [facility] [id number] [place] [address] 62666 -2277 Nov, Strep pharyngitis J02.0 ; Influenza A J10.1 and Cough R05 [facility] [id number] [place] [address] 97943- 1706 Nov, [facility] [id number] [place] [address] 50951- 8642 Nov, [facility] [id number] [place] [address] 34912- 0597 Oct, HTN (hypertension) I10 ; Morbid obesity E66.01 ; Anxiety F41.9 ; Social phobia F40.10 ; Panic disorder F41.0 ; Degenerative disc disease at L5-S1 level M51.36 and Hypercholesterolemia E78.0 [facility] [address] [place] [address] 07046- 7662 Oct, Panic disorder [episodic paroxysmal anxiety] without agoraphobia F41.0 and Social phobia, generalized F40.11 [facility] [id number] [place] [address] 29340- 0845 Oct, [facility] [id number] [place] [address] 37003- 9596 Sep, [facility] [id number] [place] [address] 37895- 8238 Sep, [facility] [id number] [place] [address] 96051- 2967 Sep, [facility] [id number] [place] [address] 34768- 1611 Sep, [facility] [id number] [place] [address] 73170- 4222 Aug, [facility] [id number] [place] [address] 99863- 2008 Aug, [facility] [id number] [place] [address] 93225- 5356 Aug, [facility] [id number] [place] [address] 47800- 8912 Aug, Social phobia F40.10 and Panic disorder F41.0 [facility] [id number] [place] [address] 23451- 6181 Aug, [facility] [id number] [place] [address] 75501- 6405 Aug, [facility] [id number] [place] [address] 47995- 6121 Aug, [facility] [id number] [place] [address] 79272- 5303 Aug, [facility] [id number] [place] [address] 62137- 1084 Jul, [facility] [id number] [place] [address] 73868- 5938 Jul, Morbid obesity E66.01 ; Chronic pain G89.29 ; Anxiety F41.9 ; Social phobia F40.10 ; Panic disorder F41.0 ; Pelvic pain in male R10.2 ; Insomnia G47.00 and HTN (hypertension) I10 [facility] [id number] [place] [address] 17087- 3920 Jul, [facility] [id number] [place] [address] 52728- 9969 Jul, [facility] [id number] [place] [address] 97272- 0916 16 Jun, 2015 Degenerative disc disease 722.6 [facility] [id number] [place] [address] 27132- 0877 Jun, Pain in joint, pelvic region and thigh 719.45 ; Morbid obesity 278.01 ; Essential hypertension, benign 401.1 and Constipation 564.00 [facility] [id number] [place] [address] 30667- 1545 May, [facility] [id number] [place] [address] 03000- 6374 May, [facility] [id number] [place] [address] 60883- 6930 May, [facility] [id number] [place] [address] 22183- 1451 May, [facility] [id number] [place] [address] 99726- 7344 May, [facility] [id number] [place] [address] 24561- 0764 May, [facility] [id number] [place] [address] 40936- 2557 May, Essential hypertension, benign 401.1 ; Anxiety state, unspecified 300.00 ; Panic disorder without agoraphobia 300.01 ; Social phobia 300.23 ; Morbid obesity 278.01 ; Other chronic pain 338.29 and Insomnia 780.52 [facility] [id number] [place] [address] 97575- 8052 May, Essential hypertension 401.9 [facility] [id number] [place] [address] 33334- 7831 May, Pain in joint, pelvic region and thigh 719.45 [facility] [id number] [place] [address] 56426- 7348 May, Essential hypertension, benign 401.1 [facility] [id number] [place] [address] 62063- 5186 May, Panic disorder without agoraphobia 300.01 and Social phobia 300.23 [facility] [id number] [place] [address] 38625- 0779 May, [facility] [address] [address]- 7437 May, [facility] [address] [address]- 1380 Apr, Chronic pain 338.29 [facility] [address] [address]- 2082 Apr, [facility] [id number] [place] [address] 79423- 3247 Apr, [facility] [address] [address]- 3616 Apr, [facility] [id number] [place] [address] 56638- 8530 Apr, [facility] [id number] [address]- 0425 Apr, [facility] [address] [address]- 0958 Apr, [facility] [address] [address]- 2252 Apr, [facility] [address] [address]- 1256 Apr, Essential hypertension, benign 401.1 ; Morbid obesity 278.01 ; Anxiety state, unspecified 300.00 ; Panic disorder without agoraphobia 300.01 ; Social phobia 300.23 and Chronic pain 338.29 [facility] [address] [address]- 2222 Mar, [facility] [address] [address]- 9476 Mar, [facility] [address] [address]- 8735 Mar, [facility] [address] [address]- 0964 Mar, [facility] [address] [address] Mar, Social phobia 300.23 and Panic disorder without agoraphobia 300.01 [facility] [id number] [address] Mar, [facility] [id number] [place] [id number] February, [facility] [id number] [place] [address] February, Major depression, recurrent 296.30 and No condition on [place] II V71.09 [facility] [id number] [place] [address] February, [facility] [id number] [place] [address] February, Panic disorder without agoraphobia 300.01 ; Social phobia 300.23 and Morbid obesity 278.01 [facility] [id number] [address] Jan, [facility] [id number] [place] [address] Jan, [facility] [id number] [address] Dec, [facility] [id number] [address] Dec, [facility] [id number] [address] Dec, [facility] [id number] [place] [address]- [address] Dec, [facility] [id number] [address]- [address] Dec, [facility] [id number] [place] [address] Dec, [facility] [id number] [address] Dec, [facility] [address] [facility] [id number] [address] Dec, [facility] [id number] [address] Dec, [facility] [address] [facility] [id number] [place] [address] Dec, [facility] [id number] [address] Dec, [facility] [id number] [address] Dec, [facility] [id number] [address] Dec, [facility] [id number] [address] Dec, [facility] [id number] [address] Dec, [facility] [id number] [address] Dec, IMMUNIZATIONS No Known Immunizations SOCIAL HISTORY Never Assessed REASON FOR VISIT hYDROCODONE 08/18 PLAN OF CARE VITAL SIGNS MEDICATIONS Medication Instructions Dosage Frequency Start Date End Date Duration Status Hydrocodone-Acetaminophen 10-325 MG Orally 4 times a day 1 tablet 6h Jul 28 days Active RESULTS No Results PROCEDURES [...]
--- OUTSIDE RECORDS SUMMARY | 2018-11-30 17:32 | XMS REPORT ---
Author Author ARMANI NAJERA [facility] Address [address] [place] [address] Care Team Providers Care Customs Appraiser Name Role Phone ARMANI NAJERA Unavailable PROBLEMS Type Condition ICD9-CM Code GXM08-EO Code Onset Dates Condition Status SNOMED Code Problem Mild episode of recurrent major depressive disorder F33.0 Active 628072756 Problem Primary insomnia F51.01 Active 8788735 Problem Type 2 diabetes mellitus with diabetic chronic kidney disease E11.22 Active 35230591 Problem Lymphedema I89.0 Active 519094613 Problem Chronic systolic congestive heart failure I50.22 Active 468662987 Problem Constipation, unspecified constipation type K59.00 Active 11377479 Problem Mixed hyperlipidemia E78.2 Active 072304187 Problem Stasis dermatitis of both legs I87.2 Active 88565003 Problem BMI 50.0-59.9, adult Z68.43 Active 955625302 Problem Abnormal liver function test R94.5 Active 403928446 Problem Cardiomegaly I51.7 Active 0128893 Problem Controlled substance agreement terminated Z91.14 Active 834266422 Problem HTN (hypertension) I10 Active 81512902 Problem Degenerative disc disease at L5-S1 level M51.36 Active 93307402 Problem Panic disorder F41.0 Active 064633273 Problem BPH (benign prostatic hyperplasia) N40.0 Active 383463163 Problem Chronic pain G89.29 Active 02528446 Problem Dysthymic disorder F34.1 Active 46998924 ALLERGIES No Information ENCOUNTERS Encounter Location Date Diagnosis [facility] [address] [facility] [id number] [address] Jan, [facility] [address] [id number] [address] 289[address] Jan, [facility] [address] [facility] [id number] [address] 68[address] Jan, [facility] [id number] [place] [address] 56749- 2460 Jan, Abnormal liver function test R94.5 ; Dysthymic disorder F34.1 and Chronic pain G89.29 [facility] [id number] [place] [address] 42430- 3063 Dec, [facility] [id number] [place] [address] 54133- 1791 Dec, HTN (hypertension) I10 ; BMI 45.0-49.9, adult Z68.42 ; Chronic pain G89.29 ; Primary insomnia F51.01 ; Mixed hyperlipidemia E78.2 ; Dysthymic disorder F34.1 ; Type 2 diabetes mellitus with diabetic chronic kidney disease E11.22 ; Stasis dermatitis of both legs I87.2 and Chronic systolic congestive heart failure I50.22 [facility] [id number] [place] [address] 76225- 0855 Dec, Chronic pain G89.29 [facility] [id number] [place] [address] 76297 -9391 Dec, Lymphedema I89.0 and Chronic systolic congestive heart failure I50.22 [facility] [id number] [place] [address] 52506- 7053 Dec, [facility] [id number] [place] [address] 75454- 4739 Nov, Type 2 diabetes mellitus with diabetic chronic kidney disease E11.22 [facility] [id number] [place] [address] 42289- 5268 Nov, Chronic pain G89.29 and Dysthymic disorder F34.1 [facility] [id number] [place] [address] 42427- 2490 Nov, [facility] [id number] [place] [address] 26658- 4109 Oct, HTN (hypertension) I10 ; Chronic pain G89.29 ; BMI 45.0-49.9 , adult Z68.42 ; Primary insomnia F51.01 ; Mixed hyperlipidemia E78.2 ; Dysthymic disorder F34.1 ; Type 2 diabetes mellitus with diabetic chronic kidney disease E11.22 ; Chronic congestive heart failure, unspecified congestive heart failure type I50.9 ; Acute non-recurrent maxillary sinusitis J01.00 and BMI 50.0-59.9, adult Z68.43 [place] [address] 97656- 3502 Oct, HTN (hypertension) I10 and Dysthymic disorder F34.1 [facility] [address] 23687- 2358 Oct, [facility] [address] 07686- 7304 Oct, HTN (hypertension) I10 [facility] [address] 46428- 6727 Oct, Chronic pain G89.29 [facility] [id number] [place] [address] 62166- 7684 Sep, [facility] [address] 84913- 6564 Sep, HTN (hypertension) I10 ; Chronic pain G89.29 ; BMI 45.0-49.9 , adult Z68.42 ; Primary insomnia F51.01 ; Mixed hyperlipidemia E78.2 ; Dysthymic disorder F34.1 and Type 2 diabetes mellitus with diabetic chronic kidney disease E11.22 [facility] [id number] [place] [address] 64540- 1242 Sep, Chronic pain G89.29 [facility] [address] 39298- 7573 Sep, Acute on chronic heart failure, unspecified heart failure type I50.9 [facility] [id number] [place] [address] 50356- 4450 Sep, Acute on chronic heart failure, unspecified heart failure type I50.9 ; Type 2 diabetes mellitus with diabetic chronic kidney disease E11.22 and BMI 50.0-59.9, adult Z68.43 [facility] [id number] [place] [address] 26534- 1943 Sep, Acute on chronic heart failure, unspecified heart failure type I50.9 ; HTN (hypertension) I10 and Type 2 diabetes mellitus with diabetic chronic kidney disease E11.22 [facility] [id number] [place] [address] 97338- 4418 Aug, Acute on chronic heart failure, unspecified heart failure type I50.9 ; HTN (hypertension) I10 ; Type 2 diabetes mellitus with diabetic chronic kidney disease E11.22 ; Cellulitis of right lower extremity L03.115 and BMI 50.0-59.9, adult Z68.43 [facility] [id number] [place] [address] 52630 -6102 Aug, Acute upper respiratory infection, unspecified J06.9 ; Other viral agents as the cause of diseases classified elsewhere B97.89 ; Constipation, unspecified constipation type K59.00 ; BMI 50.0-59.9, adult Z68.43 and BMI 60.0-69.9, adult Z68.44 [facility] [id number] [place] [address] 85285- 6073 Aug, Chronic pain G89.29 [facility] [id number] [place] [address] 36132- 1638 Jul, Chronic pain G89.29 [facility] [id number] [place] [address] 54451- 8006 Jul, Chronic pain G89.29 [facility] [id number] [place] [address] 33136- 0770 Jun, Chronic pain G89.29 [facility] [id number] [place] [address] 74773- 2575 Jun, [facility] [id number] [place] [address] 06313- 5984 Jun, Chronic pain G89.29 [facility] [id number] [place] [address] 85236- 8408 May, Chronic pain G89.29 and Type 2 diabetes mellitus with diabetic chronic kidney disease E11.22 [facility] [id number] [place] [address] 68217- 0103 16 May, 2017 [facility] [id number] [place] [address] 71593- 3921 11 May, 2017 Chronic pain G89.29 and Anxiety F41.9 [facility] [id number] [place] [address] 51816- 6973 May, Type 2 diabetes mellitus with diabetic chronic kidney disease E11.22 ; Social phobia F40.10 ; Morbid obesity E66.01 ; Chronic pain G89.29 ; HTN (hypertension) I10 ; Degenerative disc disease at L5-S1 level M51.36 ; BPH (benign prostatic hyperplasia) N40.0 ; Pain in right knee M25.561 and 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 [facility] [id number] [place] [address] 76924- 0535 Apr, Anxiety F41.9 [facility] [id number] [place] [address] 97737- 7306 Apr, [facility] [id number] [place] [address] 00282- 6746 Mar, [facility] [id number] [place] [address] 96245- 6654 Mar, Edema, unspecified type R60.9 and Anxiety F41.9 [facility] [id number] [place] [address] 05071- 5519 Mar, Social phobia F40.10 ; Mixed obsessional thoughts and acts F42.2 and Mild episode of recurrent major depressive disorder F33.0 [facility] [id number] [place] [address] 76488- 6934 Mar, Degenerative disc disease at L5-S1 level M51.36 [facility] [id number] [place] [address] 39646- 2899 Mar, [facility] [address] 37050- 0653 Mar, [facility] [id number] [place] [address] 97476- 1473 Mar, [facility] [address] 62955- 6503 February, Morbid obesity E66.01 ; Anxiety F41.9 ; Degenerative disc disease at L5-S1 level M51.36 ; BPH (benign prostatic hyperplasia) N40.0 ; Social phobia F40.10 ; HTN (hypertension) I10 ; Edema, unspecified type R60.9 and Screening cholesterol level Z13.220 [place] [address] 74826- 8011 February, Social phobia, generalized F40.11 [facility] [id number] [place] [address] 46816- 2016 February, Chronic pain G89.29 [facility] [address] 80417- 1033 February, [facility] [id number] [place] [address] 84348- 7168 Jan, Chronic pain G89.29 [facility] [id number] [place] [address] 49403- 9010 Jan, Panic disorder [episodic paroxysmal anxiety] without agoraphobia F41.0 [facility] [id number] [place] [address] 58133- 6355 Dec, Morbid obesity E66.01 ; Anxiety F41.9 ; Chronic pain G89.29 ; HTN (hypertension) I10 ; BPH (benign prostatic hyperplasia) N40.0 ; Generalized edema R60.1 and Cough R05 [facility] [id number] [place] [address] 85192- 6586 14 Nov, 2016 Chronic pain G89.29 [facility] [address] [facility] [id number] [address] 2546 03 Nov, 2016 Social phobia, generalized F40.11 and Mild episode of recurrent major depressive disorder F33.0 [facility] [address] [facility] [id number] [place] [address] 2546 17 Oct, 2016 Chronic pain G89.29 [facility] [address] [facility] [id number] [place] [address] 2546 16 Oct, 2016 Social phobia, generalized F40.11 [facility] [id number] [place] [address], [place] [address] 2546 Sep, [facility] [id number] [place] [address] 60628- 9086 Sep, [facility] [id number] [place] [address] 31335- 8433 Sep, [facility] [address] [id number] [address] 2543 Sep, [facility] [id number] [place] [address] 93814 2546 Sep, [facility] [address] [address] 2541 Sep, Social phobia, generalized F40.11 and Mild episode of recurrent major depressive disorder F33.0 [facility] [id number] [address] 2546 Sep, [facility] [id number] [address] 2546 Aug, [facility] [id number] [address] 2546 Aug, [facility] [id number] [address]- 2636 Aug, Bronchitis J40 [facility] [id number] [place] [address] 01279- 1605 15 Aug, 2016 [facility] [id number] [place] [address] 22503- 6948 Aug, Osteoarthritis of knee, unspecified M17.9 [facility] [id number] [place] [address] 95496- 6748 09 Aug, 2016 Morbid obesity E66.01 ; Chronic pain G89.29 ; Anxiety F41.9 ; Social phobia F40.10 ; HTN (hypertension) I10 ; Social phobia, generalized F40.11 ; Acute upper respiratory infection, unspecified J06.9 and Other viral agents as the cause of diseases classified elsewhere B97.89 [facility] [id number] [place] [address] 44542- 2625 Aug, Social phobia, generalized F40.11 and Dysthymic disorder F34.1 [facility] [id number] [place] [address] 36853- 5932 Jul, [facility] [id number] [place] [address] 15247- 0133 Jun, [facility] [id number] [place] [address] 31255- 4019 May, [facility] [id number] [place] [address] 40348- 9830 May, [facility] [id number] [place] [address] 77779- 7007 May, [facility] [id number] [place] [address] 54776- 9069 May, [facility] [id number] [place] [address] 18993- 3994 May, [facility] [id number] [place] [address] 45524- 4409 May, [facility] [id number] [place] [address] 13766- 4270 May, [facility] [address] [address]- 3377 Apr, [facility] [id number] [place] [address] 16049- 0684 Apr, Chondromalacia, right knee M94.261 [facility] [id number] [place] [address] 02156- 6994 Apr, Pain in unspecified hip M25.559 [facility] [id number] [place] [address] 08704- 8604 Mar, Social phobia, unspecified F40.10 and Pain in unspecified hip M25.559 [facility] [id number] [place] [address] 98930- 0153 February, [facility] [id number] [place] [address] 42861- 3027 February, Social phobia F40.10 [facility] [id number] [place] [address] 33543- 5927 February, Morbid obesity E66.01 ; Chronic pain G89.29 ; Social phobia F40.10 ; Pelvic pain in male R10.2 ; HTN (hypertension) I10 ; Degenerative disc disease at L5-S1 level M51.36 ; BPH (benign prostatic hyperplasia) N40.0 and Pain in right knee M25.561 [facility] [address] [address]- 1156 14 Jan, 2016 [facility] [id number] [place] [address] 56007- 0826 Jan, [facility] [id number] [place] [address] 97080- 5211 Jan, [facility] [address] [address]- 3963 Dec, [facility] [id number] [place] [address] 69158- 3160 Dec, [facility] [id number] [place] [address] 91740- 5626 Dec, [facility] [address] 70155 -5662 Nov, Strep pharyngitis J02.0 ; Influenza A J10.1 and Cough R05 [facility] [address] 04748- 7188 Nov, [facility] [address] 02207- 1031 Nov, [facility] [address] 31682- 2100 Oct, HTN (hypertension) I10 ; Morbid obesity E66.01 ; Anxiety F41.9 ; Social phobia F40.10 ; Panic disorder F41.0 ; Degenerative disc disease at L5-S1 level M51.36 and Hypercholesterolemia E78.0 [facility] [address] 20725- 4756 Oct, Panic disorder [episodic paroxysmal anxiety] without agoraphobia F41.0 and Social phobia, generalized F40.11 [facility] [id number] [place] [address] 47365- 6535 Oct, [facility] [address] 01701- 7092 Sep, [facility] [id number] [place] [address] 71565- 9996 Sep, [facility] [address] 66203- 6380 Sep, [facility] [id number] [place] [address] 90953- 2612 Sep, [facility] [address] 53526- 5491 Aug, [facility] [address] [address]- 6214 Aug, [facility] [id number] [place] [address] 07265- 7915 Aug, [facility] [id number] [place] [address] 28778- 8095 Aug, Social phobia F40.10 and Panic disorder F41.0 [facility] [id number] [place] [address] 95404- 1428 Aug, [facility] [id number] [place] [address] 43731- 6556 Aug, [facility] [id number] [place] [address] 11148- 1169 Aug, [facility] [id number] [place] [address] 74352- 2231 Aug, [facility] [id number] [place] [address] 42082- 4741 Jul, [facility] [id number] [place] [address] 67580- 7732 Jul, Morbid obesity E66.01 ; Chronic pain G89.29 ; Anxiety F41.9 ; Social phobia F40.10 ; Panic disorder F41.0 ; Pelvic pain in male R10.2 ; Insomnia G47.00 and HTN (hypertension) I10 [facility] [id number] [place] [address] 08594- 6658 Jul, [facility] [id number] [place] [address] 52041- 5744 Jul, [facility] [id number] [place] [address] 14827- 3395 16 Jun, 2015 Degenerative disc disease 722.6 [facility] [id number] [place] [address] 08575- 3677 Jun, 2015 Pain in joint, pelvic region and thigh 719.45 ; Morbid obesity 278.01 ; Essential hypertension, benign 401.1 and Constipation 564.00 [facility] [id number] [address]- 9969 May, [facility] [id number] [place] [address] 00895- 1465 May, [facility] [id number] [place] [address] 70778- 6195 May, [facility] [id number] [place] [address] 51470- 2191 May, [facility] [id number] [place] [address] 42441- 9655 May, [facility] [id number] [place] [address] 84364- 2725 May, [facility] [id number] [place] [address] 95250- 2912 May, Essential hypertension, benign 401.1 ; Anxiety state, unspecified 300.00 ; Panic disorder without agoraphobia 300.01 ; Social phobia 300.23 ; Morbid obesity 278.01 ; Other chronic pain 338.29 and Insomnia 780.52 [facility] [id number] [place] [address] 53590- 6597 May, Essential hypertension 401.9 [facility] [id number] [place] [address] 00348- 1268 May, Essential hypertension, benign 401.1 [facility] [id number] [place] [address] 46446- 3638 May, Pain in joint, pelvic region and thigh 719.45 [facility] [id number] [place] [address] 88954- 5704 May, Panic disorder without agoraphobia 300.01 and Social phobia 300.23 [facility] [id number] [place] [address] 22400- 1365 May, [facility] [address] [address]- 1033 May, [facility] [address] [address]- 3904 Apr, Chronic pain 338.29 [facility] [address] [address]- 6668 Apr, [facility] [address] [address]- 1345 Apr, [facility] [address] [address]- 1720 Apr, [facility] [address] [address]- 2149 Apr, [facility] [address] [address]- 7954 Apr, [facility] [address] [address]- 5328 Apr, [facility] [address] [address]- 2038 Apr, [facility] [address] [address]- 6914 Apr, Essential hypertension, benign 401.1 ; Morbid obesity 278.01 ; Anxiety state, unspecified 300.00 ; Panic disorder without agoraphobia 300.01 ; Social phobia 300.23 and Chronic pain 338.29 [facility] [address] [address]- 6359 Mar, [facility] [address] [address]- 7095 Mar, [facility] [address] [address]- 4778 Mar, [facility] [id number] [address]- 3051 Mar, [facility] [address] [address]- 8216 Mar, Social phobia 300.23 and Panic disorder without agoraphobia 300.01 [facility] [id number] [address]- 4211 Mar, [facility] [id number] [place] [address] 44012- 9316 February, [facility] [id number] [place] [address] 17435- 3798 February, Major depression, recurrent 296.30 and No condition on Pinson II V71.09 [facility] [id number] [place] [address] 64113- 5548 February, [facility] [id number] [place] [address] 19980- 7235 February, Panic disorder without agoraphobia 300.01 ; Social phobia 300.23 and Morbid obesity 278.01 [facility] [id number] [address] Jan, [facility] [id number] [place] [address] 51132- 2950 Jan, [facility] [id number] [place] [address] 87586- 2051 Dec, [facility] [id number] [place] [address] 70028- 4536 Dec, [facility] [id number] [address] Dec, [facility] [id number] [place] [address] 99126- 4368 Dec, [facility] [id number] [address] Dec, [facility] [id number] [place] [address] 71485- 0914 Dec, [facility] [id number] [address] Dec, [facility] [id number] Dec, [facility] [id number] [address] Dec, [facility] [id number] [address] Dec, [facility] [id number] [address] Dec, [facility] [id number] [address] Dec, [facility] [id number] [address] 74[address] Dec, [facility] [id number] [address] 2744 Dec, [facility] [id number] [address] Dec, [facility] [id number] [address]15 Dec, IMMUNIZATIONS No Known Immunizations SOCIAL HISTORY Never Assessed REASON FOR VISIT Hydrocodone- and Alprazolam- 08/18 PLAN OF CARE VITAL SIGNS MEDICATIONS Medication Instructions Dosage Frequency Start Date End Date Duration Status Xanax 0.5 MG Orally Twice a day 1 tablet 12h February, 28 days Active RESULTS No Results [...]
--- OUTSIDE RECORDS SUMMARY | 2018-11-30 17:33 | XMS REPORT ---
Author Author BRENDA JEANMARIE [facility] Address [address] [place] [address] Care Team Providers Care Assistant Professor Of Spanish Name Role Phone JEANMARIE GUTIERREZ Unavailable PROBLEMS Type Condition ICD9-CM Code [id number] Code Onset Dates Condition Status SNOMED Code Problem Mild episode of recurrent major depressive disorder F33.0 Active 594189319 Problem Primary insomnia F51.01 Active 6074569 Problem Type 2 diabetes mellitus with diabetic chronic kidney disease E11.22 Active 22778495 Problem Lymphedema I89.0 Active 869710607 Problem Chronic systolic congestive heart failure I50.22 Active 090787252 Problem Constipation, unspecified constipation type K59.00 Active 80833652 Problem Mixed hyperlipidemia E78.2 Active 545368117 Problem Stasis dermatitis of both legs I87.2 Active 42097521 Problem BMI 50.0-59.9, adult Z68.43 Active 944137345 Problem Abnormal liver function test R94.5 Active 133550671 Problem Cardiomegaly I51.7 Active 0884261 Problem Controlled substance agreement terminated Z91.14 Active 526400707 Problem HTN (hypertension) I10 Active 05701769 Problem Degenerative disc disease at L5-S1 level M51.36 Active 50896373 Problem Panic disorder F41.0 Active 588313676 Problem BPH (benign prostatic hyperplasia) N40.0 Active 574064308 Problem Chronic pain G89.29 Active 05818827 Problem Dysthymic disorder F34.1 Active 91307522 ALLERGIES Substance Reaction Event Type Date Status Wellbutrin Unknown Non Drug Allergy Sep, Active ENCOUNTERS Encounter Location Date Diagnosis [facility] [address] [id number] [address] February, Chronic pain G89.29 ; Abnormal liver function test R94.5 and Degenerative disc disease at L5-S1 level M51.36 [facility] [address] [id number] [address] Jan, [facility] [address] [address] Jan, [facility] [address] [address] Jan, [facility] [address] [address] Jan, Abnormal liver function test R94.5 ; Dysthymic disorder F34.1 and Chronic pain G89.29 [facility] [address] [address] Dec, [facility] [id number] [place] [address] 21612- 4048 Dec, HTN (hypertension) I10 ; BMI 45.0-49.9, adult Z68.42 ; Chronic pain G89.29 ; Primary insomnia F51.01 ; Mixed hyperlipidemia E78.2 ; Dysthymic disorder F34.1 ; Type 2 diabetes mellitus with diabetic chronic kidney disease E11.22 ; Stasis dermatitis of both legs I87.2 and Chronic systolic congestive heart failure I50.22 [facility] [id number] [place] [address] 92595- 3530 Dec, Chronic pain G89.29 [facility] [address] [address] Dec, Lymphedema I89.0 and Chronic systolic congestive heart failure I50.22 [facility] [address], [place] [address] Dec, [facility] [id number] [place] [address] 14194- 7529 Nov, Type 2 diabetes mellitus with diabetic chronic kidney disease E11.22 [facility] [address] [address] 4269 Nov, Chronic pain G89.29 and Dysthymic disorder F34.1 [facility] [id number] [place] [address] 55859- 1030 08 Nov, 2017 [facility] [id number] [place] [address] 14426- 1204 Oct, HTN (hypertension) I10 ; Chronic pain G89.29 ; BMI 45.0-49.9 , adult Z68.42 ; Primary insomnia F51.01 ; Mixed hyperlipidemia E78.2 ; Dysthymic disorder F34.1 ; Type 2 diabetes mellitus with diabetic chronic kidney disease E11.22 ; Chronic congestive heart failure, unspecified congestive heart failure type I50.9 ; Acute non-recurrent maxillary sinusitis J01.00 and BMI 50.0-59.9, adult Z68.43 [facility] [id number] [place] [address] 01460- 6425 17 Oct, 2017 HTN (hypertension) I10 and Dysthymic disorder F34.1 [facility] [address] [address]- 7258 Oct, [facility] [id number] [place] [address] 10829- 3642 Oct, HTN (hypertension) I10 [facility] [id number] [place] [address] 51849- 2084 Oct, Chronic pain G89.29 [facility] [id number] [place] [address] 00943- 8436 Sep, [facility] [address] 36837- 0168 Sep, HTN (hypertension) I10 ; Chronic pain G89.29 ; BMI 45.0-49.9 , adult Z68.42 ; Primary insomnia F51.01 ; Mixed hyperlipidemia E78.2 ; Dysthymic disorder F34.1 and Type 2 diabetes mellitus with diabetic chronic kidney disease E11.22 [facility] [id number] [place] [address] 47906- 5856 18 Sep, 2017 Chronic pain G89.29 [facility] [address] [place] [address] 8[address] Sep, Acute on chronic heart failure, unspecified heart failure type I50.9 [facility] [id number] [place] [address] 80779- 6329 Sep, Acute on chronic heart failure, unspecified heart failure type I50.9 ; Type 2 diabetes mellitus with diabetic chronic kidney disease E11.22 and BMI 50.0-59.9, adult Z68.43 [facility] [id number] [place] [address] 13258- 0617 Sep, Acute on chronic heart failure, unspecified heart failure type I50.9 ; HTN (hypertension) I10 and Type 2 diabetes mellitus with diabetic chronic kidney disease E11.22 [facility] [id number] [place] [address] 10167- 7330 Aug, Acute on chronic heart failure, unspecified heart failure type I50.9 ; HTN (hypertension) I10 ; Type 2 diabetes mellitus with diabetic chronic kidney disease E11.22 ; Cellulitis of right lower extremity L03.115 and BMI 50.0-59.9, adult Z68.43 [facility] [id number] [place] [address] 37253 -4194 Aug, Acute upper respiratory infection, unspecified J06.9 ; Other viral agents as the cause of diseases classified elsewhere B97.89 ; Constipation, unspecified constipation type K59.00 ; BMI 50.0-59.9, adult Z68.43 and BMI 60.0-69.9, adult Z68.44 [facility] [id number] [place] [address] 90991- 9793 Aug, Chronic pain G89.29 [facility] [id number] [place] [address] 61800- 4974 Jul, Chronic pain G89.29 [facility] [id number] [place] [address] 79400- 5574 Jul, Chronic pain G89.29 [facility] [id number] [place] [address] 94799- 4730 Jun, Chronic pain G89.29 [facility] [id number] [place] [address] 50365- 7581 Jun, [facility] [id number] [place] [address] 22557- 7277 Jun, Chronic pain G89.29 [facility] [id number] [place] [address] 97192- 1531 May, Chronic pain G89.29 and Type 2 diabetes mellitus with diabetic chronic kidney disease E11.22 [facility] [id number] [place] [address] 74208- 9507 May, [facility] [id number] [place] [address] 68145- 6174 May, Chronic pain G89.29 and Anxiety F41.9 [facility] [place] [id number] [place] [address] 61706- 7553 May, Type 2 diabetes mellitus with diabetic chronic kidney disease E11.22 ; Social phobia F40.10 ; Morbid obesity E66.01 ; Chronic pain G89.29 ; HTN (hypertension) I10 ; Degenerative disc disease at L5-S1 level M51.36 ; BPH (benign prostatic hyperplasia) N40.0 ; Pain in right knee M25.561 and 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 [id number] [place] [address] 06306- 6840 Apr, Anxiety F41.9 [facility] [id number] [place] [address] 20711- 6335 Apr, [facility] [id number] [place] [address] 97807- 9762 Mar, [facility] [id number] [place] [address] 17893- 7277 Mar, Edema, unspecified type R60.9 and Anxiety F41.9 [facility] [id number] [place] [address] 07557- 8305 Mar, Social phobia F40.10 ; Mixed obsessional thoughts and acts F42.2 and Mild episode of recurrent major depressive disorder F33.0 [facility] [id number] [place] [address] 25411- 0630 Mar, Degenerative disc disease at L5-S1 level M51.[address] 74702- 7650 Mar, [facility] [address] 92211- 5618 Mar, [address] 74731- 4585 Mar, [place] [id number] [place] [address] 50788- 6020 February, Morbid obesity E66.01 ; Anxiety F41.9 ; Degenerative disc disease at L5-S1 level M51.36 ; BPH (benign prostatic hyperplasia) N40.0 ; Social phobia F40.10 ; HTN (hypertension) I10 ; Edema, unspecified type R60.9 and Screening cholesterol level Z13.220 [place] [id number] [place] [address] 55682- 0875 February, Social phobia, generalized F40.11 [place] [id number] [place] [address] 97993- 0342 February, Chronic pain G89.29 [facility] [address] 21411- 7621 February, [facility] [id number] [place] [address] 88922- 3660 Jan, Chronic pain G89.29 [facility] [id number] [place] [address] 06896- 2736 Jan, Panic disorder [episodic paroxysmal anxiety] without agoraphobia F41.0 [facility] [address] 75060- 0392 13 Dec, 2016 Morbid obesity E66.01 ; Anxiety F41.9 ; Chronic pain G89.29 ; HTN (hypertension) I10 ; BPH (benign prostatic hyperplasia) N40.0 ; Generalized edema R60.1 and Cough R05 [facility] [id number] [place] [address] 59644- 9883 14 Nov, 2016 Chronic pain G89.29 [facility] [id number] [place] [address] 95387- 0429 03 Nov, 2016 Social phobia, generalized F40.11 and Mild episode of recurrent major depressive disorder F33.0 [facility] [id number] [place] [address] 41822- 0877 Oct, Chronic pain G89.29 [facility] [id number] [place] [address] 79209- 6251 Oct, Social phobia, generalized F40.11 [facility] [id number] [place] [address] 01185- 8048 Sep, [facility] [id number] [place] [address] 46972- 4661 Sep, [facility] [id number] [place] [address] 82165- 7905 Sep, [facility] [id number] [place] [address] 72259- 5710 Sep, [facility] [id number] [place] [address] 49258- 2540 Sep, [facility] [id number] [place] [address] 72439- 9558 Sep, Social phobia, generalized F40.11 and Mild episode of recurrent major depressive disorder F33.0 [facility] [id number] [place] [address] 68450- 7362 08 Sep, 2016 [facility] [id number] [place] [address] 68511- 4905 Aug, [facility] [id number] [place] [address] 95131- 7801 Aug, [facility] [id number] [place] [address] 15993- 3048 Aug, Bronchitis J40 [facility] [id number] [place] [address] 35117- 8293 15 Aug, 2016 [facility] [id number] [place] [address] 21297- 6283 10 Aug, 2016 Osteoarthritis of knee, unspecified M17.9 [facility] [address] 57203- 7750 09 Aug, 2016 Morbid obesity E66.01 ; Chronic pain G89.29 ; Anxiety F41.9 ; Social phobia F40.10 ; HTN (hypertension) I10 ; Social phobia, generalized F40.11 ; Acute upper respiratory infection, unspecified J06.9 and Other viral agents as the cause of diseases classified elsewhere B97.89 [facility] [id number] [place] [address] 32801- 4906 Aug, Social phobia, generalized F40.11 and Dysthymic disorder F34.1 [facility] [id number] [place] [address] 02626- 6917 Jul, [facility] [id number] [place] [address] 77477- 7339 Jun, [facility] [id number] [place] [address] 82211- 4583 May, [facility] [id number] [place] [address] 23990- 3228 May, [facility] [id number] [place] [address] 58811- 6081 May, [facility] [id number] [place] [address] 13119- 2337 May, [facility] [address] [address]- 6496 May, [facility] [address], [place] [address]- 7090 May, [facility] [address], [place] [address]- 8797 May, [facility] [id number] [place] [address] 23461- 1478 Apr, [facility] [id number] [place] [address] 96172- 6780 Apr, Chondromalacia, right knee M94.261 [facility] [id number] [place] [address] 09736- 6934 Apr, Pain in unspecified hip M25.559 [facility] [id number] [place] [address] 23144- 1043 Mar, Social phobia, unspecified F40.10 and Pain in unspecified hip M25.559 [facility] [id number] [place] [address] 95716- 8814 February, [facility] [id number] [place] [address] 20779- 4946 February, Social phobia F40.10 [facility] [id number] [place] [address] 31709- 9881 February, Morbid obesity E66.01 ; Chronic pain G89.29 ; Social phobia F40.10 ; Pelvic pain in male R10.2 ; HTN (hypertension) I10 ; Degenerative disc disease at L5-S1 level M51.36 ; BPH (benign prostatic hyperplasia) N40.0 and Pain in right knee M25.561 [facility] [address] [address]- 5575 Jan, [facility] [id number] [place] [address] 09243- 2776 Jan, [facility] [address], [place] [address]- 7065 Jan, [facility] [id number] [place] [address] 52642- 6403 Dec, [facility] [id number] [place] [address] 63957- 5582 Dec, [facility] [address] 66370- 4846 Dec, [facility] [id number] [place] [address] 31259 -1808 Nov, Strep pharyngitis J02.0 ; Influenza A J10.1 and Cough R05 [facility] [address] [place] [id number] [place] [address] 83807- 1558 Nov, [facility] [address] 06163- 2083 Nov, [facility] [id number] [place] [address] 74144- 8899 Oct, HTN (hypertension) I10 ; Morbid obesity E66.01 ; Anxiety F41.9 ; Social phobia F40.10 ; Panic disorder F41.0 ; Degenerative disc disease at L5-S1 level M51.36 and Hypercholesterolemia E78.0 [facility] [id number] [place] [address] 22328- 5256 Oct, Panic disorder [episodic paroxysmal anxiety] without agoraphobia F41.0 and Social phobia, generalized F40.11 [facility] [id number] [place] [address] 28921- 1916 Oct, [facility] [id number] [place] [address] 68085- 0710 Sep, [facility] [id number] [place] [address] 08854- 7961 Sep, [facility] [address] [place] [address]- 6874 Sep, [facility] [id number] [place] [address] 99518- 0403 Sep, [facility] [id number] [place] [address] 52656- 6594 Aug, [facility] [id number] [place] [address] 12453- 2949 Aug, [facility] [address] 61155- 5475 Aug, [facility] [id number] [place] [address] 78100- 7775 Aug, Social phobia F40.10 and Panic disorder F41.0 [facility] [id number] [place] [address] 07467- 1799 Aug, [facility] [address] 33211- 0776 Aug, [facility] [id number] [place] [address] 09018- 5247 Aug, [facility] [address] 34228- 3499 Aug, [facility] [id number] [place] [address] 05873- 8464 Jul, [facility] [id number] [place] [address] 11888- 9399 Jul, Morbid obesity E66.01 ; Chronic pain G89.29 ; Anxiety F41.9 ; Social phobia F40.10 ; Panic disorder F41.0 ; Pelvic pain in male R10.2 ; Insomnia G47.00 and HTN (hypertension) I10 [facility] [id number] [place] [address] 15787- 6641 Jul, [facility] [id number] [place] [address] 51110- 2228 Jul, [facility] [address] [address]- 7359 Jun, Degenerative disc disease 722.6 [facility] [id number] [place] [address] 67397- 7361 Jun, Pain in joint, pelvic region and thigh 719.45 ; Morbid obesity 278.01 ; Essential hypertension, benign 401.1 and Constipation 564.00 [facility] [id number] [place] [address] 62966- 9355 May, [facility] [id number] [place] [address] 65573- 8245 May, [facility] [id number] [place] [address] 90127- 2894 May, [facility] [id number] [place] [address] 84482- 3287 May, [facility] [id number] [place] [address] 25383- 8030 May, [facility] [id number] [place] [address] 00581- 9509 May, [facility] [id number] [place] [address] 20804- 6647 May, Essential hypertension, benign 401.1 ; Anxiety state, unspecified 300.00 ; Panic disorder without agoraphobia 300.01 ; Social phobia 300.23 ; Morbid obesity 278.01 ; Other chronic pain 338.29 and Insomnia 780.52 [facility] [address] [address]- 3634 May, Essential hypertension 401.9 [facility] [id number] [place] [address] 33012- 2966 May, Pain in joint, pelvic region and thigh 719.45 [facility] [id number] [place] [address] 52613- 9307 May, Essential hypertension, benign 401.1 [facility] [address] [address] May, Panic disorder without agoraphobia 300.01 and Social phobia 300.23 [facility] [id number] [address] May, [facility] [id number] [address] 30[address] May, [facility] [id number] [address] 6993 Apr, Chronic pain 338.29 [facility] [id number] [place] [address] 34449- 8964 Apr, [facility] [id number] [address]16 Apr, [facility] [id number] [place] [address] 98483- 1048 Apr, [facility] [id number] [address]76 Apr, [facility] [id number] [place] [address] 85150- 3830 Apr, [facility] [id number] [address]120 Apr, [facility] [id number] [place] [address] Apr, [facility] [id number] [place] [address] Apr, Essential hypertension, benign 401.1 ; Morbid obesity 278.01 ; Anxiety state, unspecified 300.00 ; Panic disorder without agoraphobia 300.01 ; Social phobia 300.23 and Chronic pain 338.29 [facility] [id number] [address] Mar, [facility] [id number] [address] 08 Mar, 2015 [facility] [id number] [address]- 0615 Mar, [facility] [id number], [place] [address] 7880 Mar, [facility] [id number] [place] [address] 19061- 3458 Mar, Social phobia 300.23 and Panic disorder without agoraphobia 300.01 [facility] [id number], [place] [address] 5363 Mar, [facility] [id number] [place] [address] 73764- 2482 February, [facility] [id number] [place] [address] 59003- 5060 February, Major depression, recurrent 296.30 and No condition on [place] II V71.09 [facility] [id number], [place] [address] February, [facility] [id number] [place] [address] 57338- 8504 February, Panic disorder without agoraphobia 300.01 ; Social phobia 300.23 and Morbid obesity 278.01 [facility] [id number] [address] Jan, [facility] [id number] [address] 3578 Jan, [facility] [id number] [address] 9014 Dec, [facility] [id number] [place] [address] 5090 Dec, [facility] [id number] [place] [address] 1847 Dec, [facility] [id number], [place] [address]- 7184 Dec, [facility] [address] [id number] [address] Dec, [facility] [id number] [place] [address] Dec, [facility] [id number] [place] [address] Dec, [facility] [id number] [place] [address] Dec, [facility] [id number] [place] [address] Dec, [facility] [id number] [place] [address] Dec, [facility] [id number] [place] [address] Dec, [facility] [id number] [place] [address] Dec, [facility] [id number] [place] [address] Dec, [facility] [id number] [place] [address] Dec, [facility] [id number] [place] [address] Dec, [facility] [id number] [address] Dec, IMMUNIZATIONS No Known Immunizations SOCIAL HISTORY Never Assessed REASON FOR VISIT swelling f/[id number]---[id number] PLAN OF CARE Activity Details Follow Up As scheduled Reason: VITAL SIGNS Height 73 in 2017-09-28 Weight 421 lbs 2017-09-28 Temperature 97.8 degrees Fahrenheit 2017-09-28 Heart Rate 80 bpm 2017-09-28 Respiratory Rate 20 2017-09-28 BMI 55.54 kg/m2 2017-09-28 Blood pressure systolic 110 mmHg 2017-09-28 Blood pressure diastolic 62 mmHg 2017-09-28 MEDICATIONS Medication Instructions Dosage Frequency Start Date End Date Duration Status Blood Glucose Monitor System w/Device as directed Mar, Not-Taking Metoprolol Succinate ER 50 MG TAKE ONE TABLET BY MOUTH ONCE DAILY Active MiraLax - Orally Once a day 1 packet mixed with 8 ounces of fluid 24h Aug, Sep, 30 day(s) Not-Taking Fluticasone Propionate 50 MCG/ACT Nasally Once a day 2 spray in each nostril 24h Aug, 30 day(s) Not-Taking Verapamil HCl ER 360 MG Orally Once a day 1 capsule in the morning 24h Active Hydrocodone-Acetaminophen 10-325 MG Orally 4 times a day 1 tablet 6h Aug 28 days Active Xanax 0.5 MG Orally Twice a day 1 tablet 12h February, 28 days Active Wheelchair N/A as directed Aug, Active Diovan 320 MG TAKE ONE TABLET BY MOUTH ONCE DAILY Active Lasix 40 MG Orally Once a day 1 tablet 24h Active Bactrim DS 800-160 MG Orally Twice a day 1 tablet 12h Aug, Sep, 10 day(s) Active Trazodone HCl 50 MG TAKE ONE TABLET BY MOUTH AT BEDTIME NEEDED 30 Active Lisinopril 40 mg oral once a day 1 tablet 24h Active Blood Glucose Test - as directed Mar, Not-Taking Metformin HCl 500 mg Orally Once a day 1 tablet with meals 24h Aug, Active Hydrochlorothiazide 12.5 MG TAKE ONE CAPSULE BY MOUTH IN THE MORNING FOR BLOOD PRESSURE 30 Active Potassium Chloride Kristen ER 20 meq Orally Once a day with lasix 1 tablet with food Aug, Oct, Active RESULTS No Results PROCEDURES Procedure Date Ordered Result Body Site [facility] VISIT ESTABLISHED PATIENT Sep 28, 2017 INSTRUCTIONS MEDICATIONS ADMINISTERED No Known Medications [...]
--- OUTSIDE RECORDS SUMMARY | 2018-11-30 17:34 | XMS REPORT ---
Author Author ARMANI NAJERA [facility] Address [address] [place] [address] Care Team Providers Care Technical Maintenance Technician Name Role Phone ARMANI NAJERA Unavailable PROBLEMS Type Condition ICD9-CM Code [id number] Code Onset Dates Condition Status SNOMED Code Problem Mild episode of recurrent major depressive disorder F33.0 Active 642156385 Problem Primary insomnia F51.01 Active 2907151 Problem Type 2 diabetes mellitus with diabetic chronic kidney disease E11.22 Active 09840987 Problem Lymphedema I89.0 Active 220109431 Problem Chronic systolic congestive heart failure I50.22 Active 828109442 Problem Constipation, unspecified constipation type K59.00 Active 50315913 Problem Mixed hyperlipidemia E78.2 Active 679827419 Problem Stasis dermatitis of both legs I87.2 Active 39665048 Problem BMI 50.0-59.9, adult Z68.43 Active 899542456 Problem Abnormal liver function test R94.5 Active 047445540 Problem Cardiomegaly I51.7 Active 8039772 Problem Controlled substance agreement terminated Z91.14 Active 415327521 Problem HTN (hypertension) I10 Active 18834748 Problem Degenerative disc disease at L5-S1 level M51.36 Active 89004013 Problem Panic disorder F41.0 Active 332090941 Problem BPH (benign prostatic hyperplasia) N40.0 Active 567839350 Problem Chronic pain G89.29 Active 26092477 Problem Dysthymic disorder F34.1 Active 20343173 ALLERGIES No Information ENCOUNTERS Encounter Location Date Diagnosis [facility] [address] [facility] [id number] [address] Mar, [facility] [id number] [address] February, Chronic pain G89.29 ; Abnormal liver function test R94.5 and Degenerative disc disease at L5-S1 level M51.36 [facility] [address] [address] 3[address] Jan, [facility] [id number] [place] [address] 99422- 9535 Jan, [facility] [id number] [place] [address] 92397- 3787 Jan, [facility] [id number] [place] [address] 51778- 3167 Jan, Abnormal liver function test R94.5 ; Dysthymic disorder F34.1 and Chronic pain G89.29 [facility] [id number] [place] [address] 29429- 8018 Dec, [facility] [id number] [place] [address] 39413- 0830 Dec, HTN (hypertension) I10 ; BMI 45.0-49.9, adult Z68.42 ; Chronic pain G89.29 ; Primary insomnia F51.01 ; Mixed hyperlipidemia E78.2 ; Dysthymic disorder F34.1 ; Type 2 diabetes mellitus with diabetic chronic kidney disease E11.22 ; Stasis dermatitis of both legs I87.2 and Chronic systolic congestive heart failure I50.22 [facility] [id number] [place] [address] 35259- 7642 Dec, Chronic pain G89.29 [facility] [id number] [place] [address] 85166 -[address] Dec, Lymphedema I89.0 and Chronic systolic congestive heart failure I50.22 [facility] [id number] [place] [address] 22212- 9573 Dec, [facility] [id number] [place] [address] 61408- 3434 Nov, Type 2 diabetes mellitus with diabetic chronic kidney disease E11.22 [facility] [id number] [place] [address] 55663- 7873 Nov, Chronic pain G89.29 and Dysthymic disorder F34.1 [place] [address] [address]- 4772 08 Nov, 2017 [place] [id number] [place] [address] 63501- 9656 Oct, HTN (hypertension) I10 ; Chronic pain G89.29 ; BMI 45.0-49.9 , adult Z68.42 ; Primary insomnia F51.01 ; Mixed hyperlipidemia E78.2 ; Dysthymic disorder F34.1 ; Type 2 diabetes mellitus with diabetic chronic kidney disease E11.22 ; Chronic congestive heart failure, unspecified congestive heart failure type I50.9 ; Acute non-recurrent maxillary sinusitis J01.00 and BMI 50.0-59.9, adult Z68.43 [place] [id number] [place] [address] 77934- 0384 17 Oct, 2017 HTN (hypertension) I10 and Dysthymic disorder F34.1 [place] [id number] [place] [address] 77746- 9366 Oct, [place] [id number] [place] [address] 90200- 8329 Oct, HTN (hypertension) I10 [place] [id number] [place] [address] 63707- 8243 Oct, Chronic pain G89.29 [place] [id number] [place] [address] 95627- 3982 Sep, [place] [id number] [place] [address] 34497- 5177 Sep, HTN (hypertension) I10 ; Chronic pain G89.29 ; BMI 45.0-49.9 , adult Z68.42 ; Primary insomnia F51.01 ; Mixed hyperlipidemia E78.2 ; Dysthymic disorder F34.1 and Type 2 diabetes mellitus with diabetic chronic kidney disease E11.22 [place] [id number] [place] [address] 27115- 1581 18 Sep, 2017 Chronic pain G89.29 [facility] [id number] [address] 2241 Sep, Acute on chronic heart failure, unspecified heart failure type I50.9 [place] [id number] [place] [address] 91146- 0542 Sep, Acute on chronic heart failure, unspecified heart failure type I50.9 ; Type 2 diabetes mellitus with diabetic chronic kidney disease E11.22 and BMI 50.0-59.9, adult Z68.43 [facility] [address] [place] [address] 64635- 1369 Sep, Acute on chronic heart failure, unspecified heart failure type I50.9 ; HTN (hypertension) I10 and Type 2 diabetes mellitus with diabetic chronic kidney disease E11.22 [place] [address] [place] [address] 53420- 1187 Aug, Acute on chronic heart failure, unspecified heart failure type I50.9 ; HTN (hypertension) I10 ; Type 2 diabetes mellitus with diabetic chronic kidney disease E11.22 ; Cellulitis of right lower extremity L03.115 and BMI 50.0-59.9, adult Z68.43 [facility] [address] [address] Aug, Acute upper respiratory infection, unspecified J06.9 ; Other viral agents as the cause of diseases classified elsewhere B97.89 ; Constipation, unspecified constipation type K59.00 ; BMI 50.0-59.9, adult Z68.43 and BMI 60.0-69.9, adult Z68.44 [facility] [id number] [address]- 7374 Aug, Chronic pain G89.29 [place] [id number] [place] [address] 27963- 3467 Jul, Chronic pain G89.29 [facility] [address] [address]- 9570 Jul, Chronic pain G89.29 [place] [id number] [place] [address] 91316- 8380 27 Jun, 2017 Chronic pain G89.29 [place] [id number] [place] [address] 89721- 3667 18 Jun, 2017 [place] [id number] [place] [address] 16033- 4564 06 Jun, 2017 Chronic pain G89.29 [place] [id number] [place] [address] 49808- 6666 May, Chronic pain G89.29 and Type 2 diabetes mellitus with diabetic chronic kidney disease E11.22 [place] [id number] [place] [address] 81271- 3573 May, [place] [id number] [place] [address] 30629- 9955 May, Chronic pain G89.29 and Anxiety F41.9 [place] [id number] [place] [address] 91117- 6228 May, Type 2 diabetes mellitus with diabetic chronic kidney disease E11.22 ; Social phobia F40.10 ; Morbid obesity E66.01 ; Chronic pain G89.29 ; HTN (hypertension) I10 ; Degenerative disc disease at L5-S1 level M51.36 ; BPH (benign prostatic hyperplasia) N40.0 ; Pain in right knee M25.561 and 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 [place] [id number] [place] [address] 20930- 9735 Apr, Anxiety F41.9 [place] [id number] [place] [address] 04090- 3928 Apr, [place] [id number] [place] [address] 59456- 0818 Mar, [place] [id number] [place] [address] 97814- 1049 Mar, Edema, unspecified type R60.9 and Anxiety F41.9 [place] [id number] [place] [address] 43001- 3456 Mar, Social phobia F40.10 ; Mixed obsessional thoughts and acts F42.2 and Mild episode of recurrent major depressive disorder F33.0 [place] [id number] [place] [address] 77509- 1435 Mar, Degenerative disc disease at L5-S1 level M51.36 [place] [address] 59922- 2434 Mar, [place] [address] 11628- 8242 Mar, [place] [address] 28409- 1159 Mar, [place] [address] 64417- 6493 February, Morbid obesity E66.01 ; Anxiety F41.9 ; Degenerative disc disease at L5-S1 level M51.36 ; BPH (benign prostatic hyperplasia) N40.0 ; Social phobia F40.10 ; HTN (hypertension) I10 ; Edema, unspecified type R60.9 and Screening cholesterol level Z13.220 [place] [id number] [place] [address] 83397- 5722 February, Social phobia, generalized F40.11 [place] [id number] [place] [address] 58500- 1088 February, Chronic pain G89.29 [place] [id number] [place] [address] 77759- 3766 February, [place] [address] 56139- 3251 Jan, Chronic pain G89.29 [place] [id number] [place] [address] 20299- 2941 Jan, Panic disorder [episodic paroxysmal anxiety] without agoraphobia F41.0 [place] [address] [address]- 2198 13 Dec, 2016 Morbid obesity E66.01 ; Anxiety F41.9 ; Chronic pain G89.29 ; HTN (hypertension) I10 ; BPH (benign prostatic hyperplasia) N40.0 ; Generalized edema R60.1 and Cough R05 [facility] [id number] [place] [address] 91100- 6356 14 Nov, 2016 Chronic pain G89.29 [facility] [id number] [place] [address] 47189 254 03 Nov, 2016 Social phobia, generalized F40.11 and Mild episode of recurrent major depressive disorder F33.0 [facility] [id number] [place] [address] 91140- 6333 Oct, Chronic pain G89.29 [facility] [id number] [place] [address] 07529- 0687 Oct, Social phobia, generalized F40.11 [facility] [id number] [place] [address] 79058- 2956 Sep, [facility] [id number] [place] [address] 38633- 1690 Sep, [facility] [id number] [place] [address] 59848- 4560 Sep, [facility] [id number] [place] [address] 53682 2546 Sep, [facility] [id number] [place] [address] 81913 2546 Sep, [facility] [id number] [place] [address] 25044- 0683 Sep, Social phobia, generalized F40.11 and Mild episode of recurrent major depressive disorder F33.0 [facility] [id number] [place] [address] 66435 2546 Sep, [facility] [id number] [place] [address] 78930- 8810 29 Aug, 2016 [facility] [id number] [place] [address] 41435- 1749 Aug, [facility] [id number] [place] [address] 44855- 5192 17 Aug, 2016 Bronchitis J40 [facility] [address] 46102- 1925 15 Aug, 2016 [facility] [id number] [place] [address] 56841- 1861 10 Aug, 2016 Osteoarthritis of knee, unspecified M17.9 [facility] [id number] [place] [address] 13807- 4234 09 Aug, 2016 Morbid obesity E66.01 ; Chronic pain G89.29 ; Anxiety F41.9 ; Social phobia F40.10 ; HTN (hypertension) I10 ; Social phobia, generalized F40.11 ; Acute upper respiratory infection, unspecified J06.9 and Other viral agents as the cause of diseases classified elsewhere B97.89 [facility] [id number] [place] [address] 17897- 0069 08 Aug, 2016 Social phobia, generalized F40.11 and Dysthymic disorder F34.1 [facility] [id number] [place] [address] 15999- 6659 Jul, [facility] [id number] [place] [address] 71450- 5464 Jun, [facility] [id number] [place] [address] 93705- 4658 May, [facility] [id number] [place] [address] 94522- 4847 May, [facility] [id number] [place] [address] 20812- 3179 May, [facility] [id number] [place] [address] 46973- 6183 May, [facility] [address] [address]- 6880 May, [facility] [id number] [place] [address] 97053- 3527 May, [facility] [id number] [place] [address] 83507- 5137 May, [facility] [id number] [place] [address] 39679- 3622 Apr, [facility] [id number] [place] [address] 35139- 5582 Apr, Chondromalacia, right knee M94.261 [facility] [id number] [place] [address] 87214- 7882 Apr, Pain in unspecified hip M25.559 [facility] [id number] [place] [address] 73369- 4682 Mar, Social phobia, unspecified F40.10 and Pain in unspecified hip M25.559 [facility] [id number] [place] [address] 10696- 3910 February, [facility] [address] [place] [address] 78364- 7050 February, Social phobia F40.10 [facility] [id number] [place] [address] 32276- 4319 February, Morbid obesity E66.01 ; Chronic pain G89.29 ; Social phobia F40.10 ; Pelvic pain in male R10.2 ; HTN (hypertension) I10 ; Degenerative disc disease at L5-S1 level M51.36 ; BPH (benign prostatic hyperplasia) N40.0 and Pain in right knee M25.561 [facility] [address] [place] [address] 92157- 4616 Jan, [facility] [id number] [place] [address] 46373- 4493 Jan, [facility] [id number] [place] [address] 19037- 0743 Jan, [facility] [id number] [place] [address] 78678- 5020 Dec, [facility] [id number] [place] [address] 40480- 4879 Dec, [facility] [id number] [place] [address] 88613- 9527 Dec, [facility] [id number] [place] [address] 40543 -2155 Nov, Strep pharyngitis J02.0 ; Influenza A J10.1 and Cough R05 [place] [id number] [place] [address] 09130- 7387 Nov, [facility] [address] 19508- 6532 Nov, [facility] [id number] [place] [address] 40853- 9527 Oct, HTN (hypertension) I10 ; Morbid obesity E66.01 ; Anxiety F41.9 ; Social phobia F40.10 ; Panic disorder F41.0 ; Degenerative disc disease at L5-S1 level M51.36 and Hypercholesterolemia E78.0 [facility] [id number] [place] [address] 49606- 6022 Oct, Panic disorder [episodic paroxysmal anxiety] without agoraphobia F41.0 and Social phobia, generalized F40.11 [place] [id number] [place] [address] 84936- 2391 Oct, [facility] [id number] [place] [address] 10200- 1712 Sep, [place] [id number] [place] [address] 30235- 3351 Sep, [facility] [address] [place] [address] 80188- 4560 Sep, [facility] [id number] [place] [address] 52708- 7442 Sep, [facility] [id number] [place] [address] 39675- 8055 Aug, [facility] [address] 89404- 9348 Aug, [facility] [id number] [place] [address] 69032- 5463 Aug, [facility] [id number] [place] [address] 85687- 4415 Aug, Social phobia F40.10 and Panic disorder F41.0 [facility] [id number] [place] [address] 38043- 7767 Aug, [facility] [id number] [place] [address] 07840- 4247 Aug, [facility] [id number] [place] [address] 89631- 1117 Aug, [facility] [id number] [place] [address] 02509- 4215 Aug, [facility] [id number] [place] [address] 57218- 6087 Jul, [facility] [id number] [place] [address] 07383- 8084 Jul, Morbid obesity E66.01 ; Chronic pain G89.29 ; Anxiety F41.9 ; Social phobia F40.10 ; Panic disorder F41.0 ; Pelvic pain in male R10.2 ; Insomnia G47.00 and HTN (hypertension) I10 [facility] [id number] [place] [address] 45665- 5749 Jul, [facility] [address] [place] [address]- 3207 Jul, [facility] [id number] [place] [address] 76072- 2694 16 Jun, 2015 Degenerative disc disease 722.6 [facility] [id number] [place] [address] 93395- 4264 Jun, Pain in joint, pelvic region and thigh 719.45 ; Morbid obesity 278.01 ; Essential hypertension, benign 401.1 and Constipation 564.00 [facility] [id number] [place] [address] 74949- 9054 May, [facility] [address] 52430- 9684 May, [facility] [id number] [place] [address] 91491- 3380 May, [facility] [address] 52335- 0252 May, [facility] [id number] [place] [address] 06822- 3204 May, [facility] [id number] [place] [address] 76211- 4933 May, [facility] [id number] [place] [address] 45768- 9679 May, Essential hypertension, benign 401.1 ; Anxiety state, unspecified 300.00 ; Panic disorder without agoraphobia 300.01 ; Social phobia 300.23 ; Morbid obesity 278.01 ; Other chronic pain 338.29 and Insomnia 780.52 [facility] [id number] [place] [address] 60673- 5190 May, Essential hypertension 401.9 [facility] [id number] [place] [address] 16516- 7373 May, Pain in joint, pelvic region and thigh 719.45 [facility] [id number] [place] [address] 56950- 0754 May, Essential hypertension, benign 401.1 [facility] [address] [address]- 2238 May, Panic disorder without agoraphobia 300.01 and Social phobia 300.23 [facility] [address] [address]- 3977 May, [facility] [id number] [place] [address] 45500- 2614 May, [facility] [id number] [place] [address] 78318- 4315 Apr, Chronic pain 338.29 [facility] [id number] [place] [address] 51486- 9674 Apr, [facility] [id number] [address]- 4530 Apr, [facility] [id number] [place] [address] 60480- 7092 Apr, [facility] [id number] [place] [address] 58748- 0260 Apr, [facility] [id number] [place] [address] 34445- 9458 Apr, [facility] [address] [address]- 3742 Apr, [facility] [address] [address]- 1842 Apr, [facility] [id number] [address]- 1478 Apr, Essential hypertension, benign 401.1 ; Morbid obesity 278.01 ; Anxiety state, unspecified 300.00 ; Panic disorder without agoraphobia 300.01 ; Social phobia 300.23 and Chronic pain 338.29 [facility] [address] [address]- 9326 Mar, [facility] [address] [address]- 7011 Mar, [facility] [address] [address]- 5899 Mar, [facility] [id number] [address]- 2485 Mar, [facility] [id number] [place] [address] 31788- 1266 Mar, Social phobia 300.23 and Panic disorder without agoraphobia 300.01 [facility] [id number] [place] [id number] Mar, [facility] [id number] [place] [address] February, [facility] [id number] [place] [address] February, Major depression, recurrent 296.30 and No condition on [place] V71.09 [facility] [id number] [address] February, [facility] [id number] [address] February, Panic disorder without agoraphobia 300.01 ; Social phobia 300.23 and Morbid obesity 278.01 [facility] [id number] [address] Jan, [facility] [id number] [address] Jan, [facility] [id number] [address] Dec, [facility] [id number] [address] Dec, [facility] [id number] [address] Dec, [facility] [address] [facility] [id number] [address] Dec, [facility] [address] [facility] [id number] [address] Dec, [facility] [address] [facility] [id number] [address] Dec, [facility] [address] [facility] [id number] [place] [address] Dec, [facility] [address] [facility] [id number] [place] [address] Dec, [facility] [address] [facility] [id number] [place] [address] Dec, [facility] [id number] [address] Dec, [facility] [id number] [address] Dec, [facility] [address] [facility] [id number] [place] [address] Dec, [facility] [id number] [address] Dec, [facility] [address] [id number] [address] Dec, [facility] [address] [id number] [address] Dec, [facility] [address] [id number] [address] Dec, IMMUNIZATIONS No Known Immunizations SOCIAL HISTORY Never Assessed REASON FOR VISIT Hydrocodone and Alprazolam- 10-11 PLAN OF CARE VITAL SIGNS MEDICATIONS Medication Instructions Dosage Frequency Start Date End Date Duration Status Xanax 0.5 MG Orally Twice a day 1 tablet 12h February, 28 days Active Hydrocodone-Acetaminophen 10-325 MG Orally 4 times a day 1 tablet 6h Sep 28 days Active RESULTS No Results PROCEDURES [...]
--- OUTSIDE RECORDS SUMMARY | 2018-11-30 17:35 | XMS REPORT ---
Author Author YONAS BELLE [facility] Address [address] [place] [address] Care Team Providers Care Photographic Specialist Name Role Phone YONAS BELLE Unavailable PROBLEMS Type Condition ICD9-CM Code VLP69-DE Code Onset Dates Condition Status SNOMED Code Problem Mild episode of recurrent major depressive disorder F33.0 Active 063905890 Problem Primary insomnia F51.01 Active 7901464 Problem Type 2 diabetes mellitus with diabetic chronic kidney disease E11.22 Active 68282290 Problem Lymphedema I89.0 Active 083649937 Problem Chronic systolic congestive heart failure I50.22 Active 692964241 Problem Constipation, unspecified constipation type K59.00 Active 57068546 Problem Mixed hyperlipidemia E78.2 Active 750471476 Problem Stasis dermatitis of both legs I87.2 Active 59154964 Problem BMI 50.0-59.9, adult Z68.43 Active 864539704 Problem Abnormal liver function test R94.5 Active 279281152 Problem Cardiomegaly I51.7 Active 7097802 Problem Controlled substance agreement terminated Z91.14 Active 677033918 Problem HTN (hypertension) I10 Active 41289600 Problem Degenerative disc disease at L5-S1 level M51.36 Active 50215223 Problem Panic disorder F41.0 Active 701670027 Problem BPH (benign prostatic hyperplasia) N40.0 Active 973438755 Problem Chronic pain G89.29 Active 64710238 Problem Dysthymic disorder F34.1 Active 77322811 ALLERGIES No Information ENCOUNTERS Encounter Location Date Diagnosis [facility] [address] [facility] [id number], [place] [address] Mar, Chronic pain G89.29 [facility] [address] [facility] [id number], [place] [address] February, Chronic pain G89.29 ; Abnormal liver function test R94.5 and Degenerative disc disease at L5-S1 level M51.36 [facility] [id number] [place] [address] 49346- 0290 Jan, [facility] [id number] [place] [address] 73692- 6676 Jan, [facility] [id number] [place] [address] 85637- 1644 Jan, [facility] [address] [address]- 1652 Jan, Abnormal liver function test R94.5 ; Dysthymic disorder F34.1 and Chronic pain G89.29 [facility] [id number] [place] [address] 59414- 0020 Dec, [facility] [id number] [place] [address] 32533- 6408 Dec, HTN (hypertension) I10 ; BMI 45.0-49.9, adult Z68.42 ; Chronic pain G89.29 ; Primary insomnia F51.01 ; Mixed hyperlipidemia E78.2 ; Dysthymic disorder F34.1 ; Type 2 diabetes mellitus with diabetic chronic kidney disease E11.22 ; Stasis dermatitis of both legs I87.2 and Chronic systolic congestive heart failure I50.22 [facility] [id number] [place] [address] 25383- 3914 Dec, Chronic pain G89.29 [facility] [id number] [place] [address] 14120 -8571 Dec, Lymphedema I89.0 and Chronic systolic congestive heart failure I50.22 [facility] [id number] [place] [address] 65926- 6626 Dec, [facility] [id number] [place] [address] 67957- 4459 Nov, Type 2 diabetes mellitus with diabetic chronic kidney disease E11.22 [facility] [id number] [place] [address] 14265- 9070 Nov, Chronic pain G89.29 and Dysthymic disorder F34.1 [facility] [id number] [place] [address] 94458- 4291 08 Nov, 2017 [facility] [id number] [place] [address] 43366- 7991 Oct, HTN (hypertension) I10 ; Chronic pain G89.29 ; BMI 45.0-49.9 , adult Z68.42 ; Primary insomnia F51.01 ; Mixed hyperlipidemia E78.2 ; Dysthymic disorder F34.1 ; Type 2 diabetes mellitus with diabetic chronic kidney disease E11.22 ; Chronic congestive heart failure, unspecified congestive heart failure type I50.9 ; Acute non-recurrent maxillary sinusitis J01.00 and BMI 50.0-59.9, adult Z68.43 [facility] [id number] [place] [address] 23870- 6115 17 Oct, 2017 HTN (hypertension) I10 and Dysthymic disorder F34.1 [facility] [id number] [place] [address] 16865- 2668 Oct, [facility] [id number] [place] [address] 18600- 4755 Oct, HTN (hypertension) I10 [facility] [id number] [place] [address] 60283- 7978 Oct, Chronic pain G89.29 [facility] [id number] [place] [address] 89508- 5030 Sep, [facility] [id number] [place] [address] 88198- 6818 Sep, HTN (hypertension) I10 ; Chronic pain G89.29 ; BMI 45.0-49.9 , adult Z68.42 ; Primary insomnia F51.01 ; Mixed hyperlipidemia E78.2 ; Dysthymic disorder F34.1 and Type 2 diabetes mellitus with diabetic chronic kidney disease E11.22 [facility] [id number] [place] [address] 09828- 1242 Sep, Chronic pain G89.29 [facility] [id number] [address] 6035 Sep, Acute on chronic heart failure, unspecified heart failure type I50.9 [facility] [address], [place] [address] 8332 Sep, Acute on chronic heart failure, unspecified heart failure type I50.9 ; Type 2 diabetes mellitus with diabetic chronic kidney disease E11.22 and BMI 50.0-59.9, adult Z68.43 [facility] [address], [place] [address] 3[address] Sep, Acute on chronic heart failure, unspecified heart failure type I50.9 ; HTN (hypertension) I10 and Type 2 diabetes mellitus with diabetic chronic kidney disease E11.22 [facility] [address], [place] [address] 1358 Aug, Acute on chronic heart failure, unspecified heart failure type I50.9 ; HTN (hypertension) I10 ; Type 2 diabetes mellitus with diabetic chronic kidney disease E11.22 ; Cellulitis of right lower extremity L03.115 and BMI 50.0-59.9, adult Z68.43 [facility] [address], [place] [address] Aug, Acute upper respiratory infection, unspecified J06.9 ; Other viral agents as the cause of diseases classified elsewhere B97.89 ; Constipation, unspecified constipation type K59.00 ; BMI 50.0-59.9, adult Z68.43 and BMI 60.0-69.9, adult Z68.44 [facility] [id number], [place] [address] 6727 Aug, Chronic pain G89.29 [facility] [address] [place] [address] 92937- 0556 Jul, Chronic pain G89.29 [facility] [address], [place] [address] 9279 Jul, Chronic pain G89.29 [facility] [address], [place] [address] 7727 Jun, Chronic pain G89.29 [facility] [id number] [place] [address] 45956- 3298 Jun, [facility] [id number] [place] [address] 10980- 9172 Jun, Chronic pain G89.29 [facility] [id number] [place] [address] 03362- 8897 May, Chronic pain G89.29 and Type 2 diabetes mellitus with diabetic chronic kidney disease E11.22 [place] [id number] [place] [address] 50676- 0695 16 May, 2017 [place] [id number] [place] [address] 91943- 0466 May, Chronic pain G89.29 and Anxiety F41.9 [place] [id number] [place] [address] 61213- 2918 May, Type 2 diabetes mellitus with diabetic chronic kidney disease E11.22 ; Social phobia F40.10 ; Morbid obesity E66.01 ; Chronic pain G89.29 ; HTN (hypertension) I10 ; Degenerative disc disease at L5-S1 level M51.36 ; BPH (benign prostatic hyperplasia) N40.0 ; Pain in right knee M25.561 and 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 [facility] [address], [place] [address]- 8140 Apr, Anxiety F41.9 [facility] [id number] [place] [address] 12655- 5616 Apr, [facility] [id number] [place] [address] 38573- 3554 Mar, [place] [id number] [place] [address] 22493- 0822 Mar, Edema, unspecified type R60.9 and Anxiety F41.9 [facility] [id number] [place] [address] 22668- 4826 Mar, Social phobia F40.10 ; Mixed obsessional thoughts and acts F42.2 and Mild episode of recurrent major depressive disorder F33.0 [facility] [id number] [place] [address] 65800- 4771 Mar, Degenerative disc disease at L5-S1 level M51.36 [facility] [address] 22795- 6643 Mar, [facility] [address] 22899- 9958 Mar, [facility] [id number] [place] [address] 48157- 1222 Mar, [facility] [id number] [place] [address] 02520- 8626 February, Morbid obesity E66.01 ; Anxiety F41.9 ; Degenerative disc disease at L5-S1 level M51.36 ; BPH (benign prostatic hyperplasia) N40.0 ; Social phobia F40.10 ; HTN (hypertension) I10 ; Edema, unspecified type R60.9 and Screening cholesterol level Z13.220 [facility] [id number] [place] [address] 45332- 2148 February, Social phobia, generalized F40.11 [facility] [id number] [place] [address] 07466- 9217 February, Chronic pain G89.29 [facility] [id number] [place] [address] 16631- 1567 February, [facility] [id number] [place] [address] 74254- 9252 Jan, Chronic pain G89.29 [facility] [id number] [place] [address] 63825- 3870 Jan, Panic disorder [episodic paroxysmal anxiety] without agoraphobia F41.0 [facility] [id number] [place] [address] 35229- 2410 13 Dec, 2016 Morbid obesity E66.01 ; Anxiety F41.9 ; Chronic pain G89.29 ; HTN (hypertension) I10 ; BPH (benign prostatic hyperplasia) N40.0 ; Generalized edema R60.1 and Cough R05 [facility] [id number] [place] [address] 69320- 1351 14 Nov, 2016 Chronic pain G89.29 [facility] [id number] [place] [address] 32013 2544 03 Nov, 2016 Social phobia, generalized F40.11 and Mild episode of recurrent major depressive disorder F33.0 [facility] [id number] [place] [address] 34519- 1640 Oct, Chronic pain G89.29 [facility] [id number] [place] [address] 48780- 6050 Oct, Social phobia, generalized F40.11 [facility] [id number] [place] [address] 07539- 0663 Sep, [facility] [id number] [place] [address] 68713- 0350 Sep, [facility] [id number] [place] [address] 33108- 7710 Sep, [facility] [id number] [place] [address] 97818 2542 Sep, [facility] [id number] [place] [address] 80717- 2261 Sep, [facility] [id number] [place] [address] 03486- 2956 Sep, Social phobia, generalized F40.11 and Mild episode of recurrent major depressive disorder F33.0 [facility] [id number] [place] [address] 99469- 7393 Sep, [facility] [address], [place] [address]- 6351 Aug, [facility] [id number] [place] [address] 48264- 7755 Aug, [facility] [id number] [place] [address] 11045- 0020 Aug, Bronchitis J40 [facility] [address] 22380- 7197 15 Aug, 2016 [facility] [id number] [place] [address] 76395- 0615 10 Aug, 2016 Osteoarthritis of knee, unspecified M17.9 [facility] [id number] [place] [address] 66436- 9021 09 Aug, 2016 Morbid obesity E66.01 ; Chronic pain G89.29 ; Anxiety F41.9 ; Social phobia F40.10 ; HTN (hypertension) I10 ; Social phobia, generalized F40.11 ; Acute upper respiratory infection, unspecified J06.9 and Other viral agents as the cause of diseases classified elsewhere B97.89 [facility] [id number] [place] [address] 59174- 7450 Aug, Social phobia, generalized F40.11 and Dysthymic disorder F34.1 [facility] [id number] [place] [address] 52345- 5676 Jul, [facility] [id number] [place] [address] 80445- 2035 Jun, [facility] [id number] [place] [address] 57884- 8847 May, [facility] [id number] [place] [address] 62805- 6925 May, [facility] [id number] [place] [address] 25448- 2673 May, [facility] [address] [place] [address]- 4200 May, [facility] [address], [place] [address]- 3683 May, [facility] [address], [place] [address]- 8488 May, [facility] [address] [place] [address] 06791- 2644 May, [facility] [id number] [place] [address] 64739- 9257 Apr, [facility] [id number] [place] [address] 57325- 9244 Apr, Chondromalacia, right knee M94.261 [facility] [address] [place] [address] 67530- 9058 Apr, Pain in unspecified hip M25.559 [facility] [id number] [place] [address] 64839- 6018 Mar, Social phobia, unspecified F40.10 and Pain in unspecified hip M25.559 [facility] [address] [place] [address] 53015- 8439 February, [facility] [address], [place] [address]- 8796 February, Social phobia F40.10 [facility] [address], [place] [address]- 9358 February, Morbid obesity E66.01 ; Chronic pain G89.29 ; Social phobia F40.10 ; Pelvic pain in male R10.2 ; HTN (hypertension) I10 ; Degenerative disc disease at L5-S1 level M51.36 ; BPH (benign prostatic hyperplasia) N40.0 and Pain in right knee M25.561 [facility] [address], [place] [address]- 6086 Jan, [facility] [id number] [place] [address] 49637- 9255 Jan, [facility] [address] 90908- 2412 Jan, [facility] [address] 51975- 5381 Dec, [facility] [address] 07505- 6908 Dec, [facility] [address] 47792- 0962 Dec, [facility] [address] 92694 -4977 Nov, Strep pharyngitis J02.0 ; Influenza A J10.1 and Cough R05 [address] 14615- 7312 Nov, [facility] [address] 44112- 7449 Nov, [facility] [address] 86192- 5379 Oct, HTN (hypertension) I10 ; Morbid obesity E66.01 ; Anxiety F41.9 ; Social phobia F40.10 ; Panic disorder F41.0 ; Degenerative disc disease at L5-S1 level M51.36 and Hypercholesterolemia E78.0 [facility] [facility] [address] 50294- 9142 Oct, Panic disorder [episodic paroxysmal anxiety] without agoraphobia F41.0 and Social phobia, generalized F40.11 [facility] [facility] [address] 98938- 4304 Oct, [facility] [address] 36637- 2893 Sep, [facility] [facility] [address] 79153- 8887 Sep, [facility] [address] [place] [address] 03860- 3363 Sep, [facility] [id number] [place] [address] 28344- 6692 Sep, [facility] [id number] [place] [address] 59494- 5432 Aug, [facility] [id number] [place] [address] 94715- 7381 Aug, [facility] [id number] [place] [address] 69130- 7997 Aug, [facility] [id number] [place] [address] 04924- 5039 Aug, Social phobia F40.10 and Panic disorder F41.0 [facility] [id number] [place] [address] 80279- 9754 Aug, [facility] [id number] [place] [address] 21641- 9378 Aug, [facility] [id number] [place] [address] 55281- 7580 Aug, [facility] [id number] [place] [address] 35926- 9636 Aug, [facility] [id number] [place] [address] 35793- 5722 Jul, [facility] [id number] [place] [address] 10851- 5350 Jul, Morbid obesity E66.01 ; Chronic pain G89.29 ; Anxiety F41.9 ; Social phobia F40.10 ; Panic disorder F41.0 ; Pelvic pain in male R10.2 ; Insomnia G47.00 and HTN (hypertension) I10 [facility] [id number] [place] [address] 14764- 2095 Jul, [facility] [address], [place] [address]- 3833 Jul, [facility] [id number] [place] [address] 18431- 6821 16 Jun, 2015 Degenerative disc disease 722.6 [facility] [id number] [place] [address] 55169- 7590 Jun, Pain in joint, pelvic region and thigh 719.45 ; Morbid obesity 278.01 ; Essential hypertension, benign 401.1 and Constipation 564.00 [facility] [address] [address]- 1402 May, [facility] [id number] [place] [address] 01936- 6286 May, [facility] [id number] [place] [address] 28190- 8419 May, [facility] [id number] [place] [address] 24855- 2704 May, [facility] [id number] [place] [address] 61374- 9881 May, [facility] [id number] [place] [address] 52135- 6683 May, [facility] [address] [place] [address] 40582- 4985 May, Essential hypertension, benign 401.1 ; Anxiety state, unspecified 300.00 ; Panic disorder without agoraphobia 300.01 ; Social phobia 300.23 ; Morbid obesity 278.01 ; Other chronic pain 338.29 and Insomnia 780.52 [facility] [id number] [place] [address] 69244- 8303 May, Essential hypertension 401.9 [facility] [id number] [place] [address] 18150- 7601 May, Essential hypertension, benign 401.1 [facility] [id number] [place] [address] 43742- 1534 May, Pain in joint, pelvic region and thigh 719.45 [facility] [id number] [place] [address] 20476- 0615 May, Panic disorder without agoraphobia 300.01 and Social phobia 300.23 [facility] [address], [place] [address]- 8425 May, [facility] [id number] [place] [address] 30136- 3568 May, [facility] [id number] [place] [address] 79656- 5444 Apr, Chronic pain 338.29 [facility] [id number] [place] [address] 30626- 8823 Apr, [facility] [id number] [place] [address] 92886- 3114 Apr, [facility] [id number] [place] [address] 16068- 0200 Apr, [facility] [id number] [place] [address] 23842- 0649 Apr, [facility] [id number] [address] 6[address] Apr, [facility] [id number] [place] [address] 14313- 1787 Apr, [facility] [id number] [address] Apr, [facility] [id number] [place] [address] 99950- 2527 Apr, Essential hypertension, benign 401.1 ; Morbid obesity 278.01 ; Anxiety state, unspecified 300.00 ; Panic disorder without agoraphobia 300.01 ; Social phobia 300.23 and Chronic pain 338.29 [facility] [id number] [place] [address] 81084- 9695 Mar, [facility] [id number] [address] 8717 Mar, [facility] [id number] [place] [address] 74711- 4355 Mar, [facility] [id number] [place] [address] 49028- 5189 Mar, [facility] [id number] [place] [address] 14686- 2831 Mar, Social phobia 300.23 and Panic disorder without agoraphobia 300.01 [facility] [id number] [place] [address] 99137- 3017 Mar, [facility] [id number] [place] [address] [id number]- 2621 February, [facility] [id number] [place] [address] 50321- 4164 February, Major depression, recurrent 296.30 and No condition on [place] II V71.09 [facility] [id number] [place] [address] 76909- 9139 February, [facility] [id number] [place] [address] 77104- 3405 February, Panic disorder without agoraphobia 300.01 ; Social phobia 300.23 and Morbid obesity 278.01 [facility] [id number] [address] 244[address] Jan, [facility] [id number] [place] [address] 66773- 1122 Jan, [facility] [id number] [place] [address] 70998- 4542 Dec, [facility] [id number] [place] [address] 76090- 6763 Dec, [facility] [id number] [place] [address] 48116- 4815 Dec, [facility] [id number] [place] [address] 1815 Dec, [facility] [id number] [place] [address]- 9745 Dec, [facility] [id number] [place] [address]- 5048 Dec, [facility] [id number] [place] [address]- 9841 Dec, [facility] [id number] [place] [address] 48168- 3484 Dec, [facility] [id number] [address] Dec, [facility] [id number] [address] Dec, [facility] [id number] [place] [address] Dec, [facility] [id number] [place] [address] Dec, [facility] [id number], [place] [address] Dec, [facility] [id number], [place] [address] Dec, [facility] [id number], [place] [address] Dec, [facility] [id number], [place] [address] Dec, IMMUNIZATIONS No Known Immunizations SOCIAL HISTORY Never Assessed REASON FOR VISIT Medication question PLAN OF CARE VITAL SIGNS MEDICATIONS No [...]
--- OUTSIDE RECORDS SUMMARY | 2018-11-30 17:35 | XMS REPORT ---
Author Author YONAS BELLE [facility] Address [address] [place] [address] Care Team Providers Care Client Service Administrator Name Role Phone YONAS BELLE Unavailable PROBLEMS Type Condition ICD9-CM Code ESX66-OS Code Onset Dates Condition Status SNOMED Code Problem Mild episode of recurrent major depressive disorder F33.0 Active 854886797 Problem Primary insomnia F51.01 Active 8323255 Problem Type 2 diabetes mellitus with diabetic chronic kidney disease E11.22 Active 40892046 Problem Lymphedema I89.0 Active 894896005 Problem Chronic systolic congestive heart failure I50.22 Active 555930430 Problem Constipation, unspecified constipation type K59.00 Active 26060622 Problem Mixed hyperlipidemia E78.2 Active 017308664 Problem Stasis dermatitis of both legs I87.2 Active 76649800 Problem BMI 50.0-59.9, adult Z68.43 Active 390900792 Problem Abnormal liver function test R94.5 Active 442558213 Problem Cardiomegaly I51.7 Active 7005797 Problem Controlled substance agreement terminated Z91.14 Active 242338713 Problem HTN (hypertension) I10 Active 09456569 Problem Degenerative disc disease at L5-S1 level M51.36 Active 63939555 Problem Panic disorder F41.0 Active 857556150 Problem BPH (benign prostatic hyperplasia) N40.0 Active 376096056 Problem Chronic pain G89.29 Active 11370833 Problem Dysthymic disorder F34.1 Active 43071098 ALLERGIES No Information ENCOUNTERS Encounter Location Date Diagnosis [facility] [id number] [address] Mar, Type 2 diabetes mellitus with diabetic chronic kidney disease E11.22 [facility] [id number] [address] Mar, Chronic pain G89.29 [facility] [id number] [place] [address] 13224- 7614 February, Chronic pain G89.29 ; Abnormal liver function test R94.5 and Degenerative disc disease at L5-S1 level M51.36 [facility] [id number] [place] [address] 33499- 7258 Jan, [facility] [id number] [place] [address] 48791- 7118 Jan, [facility] [address] 70894- 9254 Jan, [place] [address] 53751- 3653 Jan, Abnormal liver function test R94.5 ; Dysthymic disorder F34.1 and Chronic pain G89.29 [facility] [id number] [place] [address] 78992- 3434 Dec, [place] [id number] [place] [address] 69692- 3157 Dec, HTN (hypertension) I10 ; BMI 45.0-49.9, adult Z68.42 ; Chronic pain G89.29 ; Primary insomnia F51.01 ; Mixed hyperlipidemia E78.2 ; Dysthymic disorder F34.1 ; Type 2 diabetes mellitus with diabetic chronic kidney disease E11.22 ; Stasis dermatitis of both legs I87.2 and Chronic systolic congestive heart failure I50.22 [facility] [id number] [place] [address] 34687- 7355 Dec, Chronic pain G89.29 [facility] [id number] [place] [address] 30039 -2138 Dec, Lymphedema I89.0 and Chronic systolic congestive heart failure I50.22 [facility] [id number] [place] [address] 48458- 0944 Dec, [facility] [id number] [place] [address] 46894- 1087 Nov, Type 2 diabetes mellitus with diabetic chronic kidney disease E11.22 [facility] [id number] [place] [address] 77584- 4345 12 Nov, 2017 Chronic pain G89.29 and Dysthymic disorder F34.1 [facility] [id number] [place] [address] 03430- 7957 08 Nov, 2017 [place] [address] 41950- 9903 Oct, HTN (hypertension) I10 ; Chronic pain G89.29 ; BMI 45.0-49.9 , adult Z68.42 ; Primary insomnia F51.01 ; Mixed hyperlipidemia E78.2 ; Dysthymic disorder F34.1 ; Type 2 diabetes mellitus with diabetic chronic kidney disease E11.22 ; Chronic congestive heart failure, unspecified congestive heart failure type I50.9 ; Acute non-recurrent maxillary sinusitis J01.00 and BMI 50.0-59.9, adult Z68.43 [place] [id number] [place] [address] 93513- 6555 17 Oct, 2017 HTN (hypertension) I10 and Dysthymic disorder F34.1 [facility] [id number] [place] [address] 51469- 2175 Oct, [place] [id number] [place] [address] 71509- 8196 Oct, HTN (hypertension) I10 [place] [id number] [place] [address] 26743- 1254 Oct, Chronic pain G89.29 [facility] [id number] [place] [address] 37256- 5548 Sep, [place] [id number] [place] [address] 63526- 3514 Sep, HTN (hypertension) I10 ; Chronic pain G89.29 ; BMI 45.0-49.9 , adult Z68.42 ; Primary insomnia F51.01 ; Mixed hyperlipidemia E78.2 ; Dysthymic disorder F34.1 and Type 2 diabetes mellitus with diabetic chronic kidney disease E11.22 [place] [id number] [place] [address] 28685- 4599 Sep, Chronic pain G89.29 [facility] [id number] [place] [address] 66141- 5661 Sep, Acute on chronic heart failure, unspecified heart failure type I50.9 [place] [id number] [place] [address] 48487- 3688 Sep, Acute on chronic heart failure, unspecified heart failure type I50.9 ; Type 2 diabetes mellitus with diabetic chronic kidney disease E11.22 and BMI 50.0-59.9, adult Z68.43 [facility] [id number] [place] [address] 28543- 8361 Sep, Acute on chronic heart failure, unspecified heart failure type I50.9 ; HTN (hypertension) I10 and Type 2 diabetes mellitus with diabetic chronic kidney disease E11.22 [facility] [id number] [place] [address] 28570- 9548 Aug, Acute on chronic heart failure, unspecified heart failure type I50.9 ; HTN (hypertension) I10 ; Type 2 diabetes mellitus with diabetic chronic kidney disease E11.22 ; Cellulitis of right lower extremity L03.115 and BMI 50.0-59.9, adult Z68.43 [facility] [id number] [place] [address] 31628 -3637 Aug, Acute upper respiratory infection, unspecified J06.9 ; Other viral agents as the cause of diseases classified elsewhere B97.89 ; Constipation, unspecified constipation type K59.00 ; BMI 50.0-59.9, adult Z68.43 and BMI 60.0-69.9, adult Z68.44 [place] [id number] [place] [address] 72970- 3333 Aug, Chronic pain G89.29 [facility] [id number] [place] [address] 57131- 5935 Jul, Chronic pain G89.29 [facility] [place] [id number] [place] [address] 20066- 8289 Jul, Chronic pain G89.29 [facility] [id number] [place] [address] 62786- 5574 Jun, Chronic pain G89.29 [facility] [place] [id number] [place] [address] 57586- 6604 Jun, [place] [id number] [place] [address] 57158- 7612 Jun, Chronic pain G89.29 [facility] [id number] [place] [address] 11522- 0534 May, Chronic pain G89.29 and Type 2 diabetes mellitus with diabetic chronic kidney disease E11.22 [place] [id number] [place] [address] 43341- 0805 May, [place] [id number] [place] [address] 01180- 6995 May, Chronic pain G89.29 and Anxiety F41.9 [place] [id number] [place] [address] 70677- 3751 May, Type 2 diabetes mellitus with diabetic chronic kidney disease E11.22 ; Social phobia F40.10 ; Morbid obesity E66.01 ; Chronic pain G89.29 ; HTN (hypertension) I10 ; Degenerative disc disease at L5-S1 level M51.36 ; BPH (benign prostatic hyperplasia) N40.0 ; Pain in right knee M25.561 and 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 [place] [id number] [place] [address] 89344- 2077 Apr, Anxiety F41.9 [facility] [id number] [place] [address] 67051- 2255 Apr, [place] [id number] [place] [address] 92797- 4392 Mar, [place] [id number] [place] [address] 86258- 7849 Mar, Edema, unspecified type R60.9 and Anxiety F41.9 [place] [id number] [place] [address] 89706- 2018 Mar, Social phobia F40.10 ; Mixed obsessional thoughts and acts F42.2 and Mild episode of recurrent major depressive disorder F33.0 [place] [address] 65653- 0536 Mar, Degenerative disc disease at L5-S1 level M51.[address] 59698- 1378 Mar, [address] 30624- 3172 Mar, [address] 12137- 6271 Mar, [place] [address] 13994- 4997 February, Morbid obesity E66.01 ; Anxiety F41.9 ; Degenerative disc disease at L5-S1 level M51.36 ; BPH (benign prostatic hyperplasia) N40.0 ; Social phobia F40.10 ; HTN (hypertension) I10 ; Edema, unspecified type R60.9 and Screening cholesterol level Z13.220 [place] [address] 16356- 4863 February, Social phobia, generalized F40.11 [place] [id number] [place] [address] 52717- 9833 February, Chronic pain G89.29 [place] [address] 35055- 5766 February, [place] [address] 19163- 5462 Jan, Chronic pain G89.29 [facility] [id number] [place] [address] 77205- 3565 04 Jan, 2017 Panic disorder [episodic paroxysmal anxiety] without agoraphobia F41.0 [facility] [id number] [place] [address] 11732- 4547 13 Dec, 2016 Morbid obesity E66.01 ; Anxiety F41.9 ; Chronic pain G89.29 ; HTN (hypertension) I10 ; BPH (benign prostatic hyperplasia) N40.0 ; Generalized edema R60.1 and Cough R05 [place] [id number] [place] [address] 65696- 4369 14 Nov, 2016 Chronic pain G89.29 [facility] [id number] [place] [address] 60299- 3365 03 Nov, 2016 Social phobia, generalized F40.11 and Mild episode of recurrent major depressive disorder F33.0 [place] [id number] [place] [address] 86715- 8108 Oct, Chronic pain G89.29 [facility] [id number] [place] [address] 10805- 7399 Oct, Social phobia, generalized F40.11 [place] [id number] [place] [address] 10680- 0582 Sep, [place] [id number] [place] [address] 02612- 3319 Sep, [place] [id number] [place] [address] 75245- 4912 Sep, [place] [id number] [place] [address] 33665- 9526 Sep, [place] [id number] [place] [address] 01899- 1376 Sep, [facility] [id number] [place] [address] 14519- 2320 Sep, Social phobia, generalized F40.11 and Mild episode of recurrent major depressive disorder F33.0 [place] [id number] [place] [address] 69956- 8458 08 Sep, 2016 [place] [id number] [place] [address] 16364- 4985 Aug, [place] [id number] [place] [address] 89319- 3667 Aug, [place] [id number] [place] [address] 77191- 3133 Aug, Bronchitis J40 [place] [id number] [place] [address] 09724- 6640 15 Aug, 2016 [place] [id number] [place] [address] 85912- 1585 10 Aug, 2016 Osteoarthritis of knee, unspecified M17.9 [place] [id number] [place] [address] 01032- 9742 09 Aug, 2016 Morbid obesity E66.01 ; Chronic pain G89.29 ; Anxiety F41.9 ; Social phobia F40.10 ; HTN (hypertension) I10 ; Social phobia, generalized F40.11 ; Acute upper respiratory infection, unspecified J06.9 and Other viral agents as the cause of diseases classified elsewhere B97.89 [place] [id number] [place] [address] 93033- 3850 Aug, Social phobia, generalized F40.11 and Dysthymic disorder F34.1 [place] [id number] [place] [address] 96517- 0530 Jul, [place] [id number] [place] [address] 55366- 3857 Jun, [place] [id number] [place] [address] 47093- 4899 May, [place] [id number] [place] [address] 78710- 0702 May, [facility] [address] [address]- 0809 May, [facility] [id number] [place] [address] 39908- 0561 May, [facility] [address] [address]- 3088 May, [facility] [id number] [place] [address] 74345- 7028 May, [facility] [id number] [place] [address] 81526- 6187 May, [facility] [id number] [place] [address] 58212- 7025 Apr, [facility] [id number] [place] [address] 50389- 9461 Apr, Chondromalacia, right knee M94.261 [facility] [address] [place] [address] 98979- 2580 Apr, Pain in unspecified hip M25.559 [facility] [id number] [place] [address] 67970- 3559 Mar, Social phobia, unspecified F40.10 and Pain in unspecified hip M25.559 [facility] [address] [address]- 5857 February, [facility] [address] [address]- 9878 February, Social phobia F40.10 [facility] [address] [address]- 9470 February, Morbid obesity E66.01 ; Chronic pain G89.29 ; Social phobia F40.10 ; Pelvic pain in male R10.2 ; HTN (hypertension) I10 ; Degenerative disc disease at L5-S1 level M51.36 ; BPH (benign prostatic hyperplasia) N40.0 and Pain in right knee M25.561 [facility] [id number] [address]- 3268 14 Jan, 2016 [facility] [id number] [place] [address] 99587- 4357 13 Jan, 2016 [facility] [id number] [place] [address] 21050- 6743 Jan, [facility] [id number] [place] [address] 52283- 9650 Dec, [facility] [id number] [place] [address] 65565- 7783 Dec, [facility] [id number] [place] [address] 55589- 8821 Dec, [facility] [id number] [place] [address] 54250 -9536 Nov, Strep pharyngitis J02.0 ; Influenza A J10.1 and Cough R05 [facility] [id number] [place] [address] 83644- 1577 Nov, [facility] [id number] [place] [address] 33580- 8356 Nov, [facility] [address] [place] [address] 52043- 9565 Oct, HTN (hypertension) I10 ; Morbid obesity E66.01 ; Anxiety F41.9 ; Social phobia F40.10 ; Panic disorder F41.0 ; Degenerative disc disease at L5-S1 level M51.36 and Hypercholesterolemia E78.0 [facility] [id number] [place] [address] 35623- 9655 Oct, Panic disorder [episodic paroxysmal anxiety] without agoraphobia F41.0 and Social phobia, generalized F40.11 [facility] [address] [address]- 1534 Oct, [facility] [id number] [address]- 6719 Sep, [facility] [id number] [place] [address] 21801- 4235 Sep, [facility] [id number] [place] [address] 23924- 3936 Sep, [facility] [id number] [place] [address] 95996- 0728 Sep, [facility] [id number] [place] [address] 93736- 9557 Aug, [facility] [id number] [place] [address] 57600- 1375 Aug, [facility] [id number] [place] [address] 54884- 5777 Aug, [facility] [id number] [place] [address] 40583- 0594 Aug, Social phobia F40.10 and Panic disorder F41.0 [facility] [id number] [place] [address] 82288- 0146 Aug, [facility] [id number] [place] [address] 86263- 8137 Aug, [facility] [address] [address]- 0534 Aug, [facility] [id number] [place] [address] 71129- 4467 Aug, [facility] [id number] [place] [address] 86476- 4355 Jul, [facility] [id number] [place] [address] 11870- 6488 Jul, Morbid obesity E66.01 ; Chronic pain G89.29 ; Anxiety F41.9 ; Social phobia F40.10 ; Panic disorder F41.0 ; Pelvic pain in male R10.2 ; Insomnia G47.00 and HTN (hypertension) I10 [facility] [id number] [place] [address] 96912- 7936 Jul, [facility] [id number] [place] [address] 11047- 4031 Jul, [facility] [id number] [place] [address] 86632- 6643 16 Jun, 2015 Degenerative disc disease 722.6 [facility] [address] 46570- 8013 Jun, Pain in joint, pelvic region and thigh 719.45 ; Morbid obesity 278.01 ; Essential hypertension, benign 401.1 and Constipation 564.00 [facility] [id number] [place] [address] 54235- 0017 May, [facility] [id number] [place] [address] 73975- 8215 May, [facility] [id number] [place] [address] 61286- 8467 May, [facility] [id number] [place] [address] 49123- 3401 May, [facility] [id number] [place] [address] 26246- 0051 May, [facility] [id number] [place] [address] 85363- 8991 May, [facility] [id number] [place] [address] 21438- 4894 May, Essential hypertension, benign 401.1 ; Anxiety state, unspecified 300.00 ; Panic disorder without agoraphobia 300.01 ; Social phobia 300.23 ; Morbid obesity 278.01 ; Other chronic pain 338.29 and Insomnia 780.52 [facility] [id number] [place] [address] 18157- 7006 May, Essential hypertension 401.9 [facility] [address] [place] [address]- 3550 May, Pain in joint, pelvic region and thigh 719.45 [facility] [id number] [place] [address] 94011- 6749 May, Essential hypertension, benign 401.1 [facility] [id number] [place] [address] 60295- 8229 May, Panic disorder without agoraphobia 300.01 and Social phobia 300.23 [facility] [id number] [place] [address] 42881- 5897 May, [facility] [id number] [place] [address] 26837- 0974 May, [facility] [id number] [place] [address] 13667- 5669 Apr, Chronic pain 338.29 [facility] [id number] [place] [address] 89077- 0215 Apr, [facility] [id number] [place] [address] 75088- 9354 Apr, [facility] [id number] [place] [address] 85956- 1604 Apr, [facility] [id number] [place] [address] 08530- 8431 Apr, [facility] [id number] [place] [address] 46849- 5178 Apr, [facility] [id number] [place] [address] 37173- 5610 Apr, [facility] [id number] [place] [address] 17907- 3629 Apr, [facility] [address] 0137 Apr, Essential hypertension, benign 401.1 ; Morbid obesity 278.01 ; Anxiety state, unspecified 300.00 ; Panic disorder without agoraphobia 300.01 ; Social phobia 300.23 and Chronic pain 338.29 [facility] [id number] [place] [address] 10522- 1004 Mar, [facility] [id number] [place] [address] 37167- 2345 Mar, [facility] [id number] [place] [address] [id number]- 6947 Mar, [facility] [id number] [place] [address] [phone]- [phone] Mar, [facility] [address] [phone]- [address]016 Mar, Social phobia 300.23 and Panic disorder without agoraphobia 300.01 [facility] [id number] [place] [address] 68198- 8186 Mar, [facility] [id number] [place] [address] [phone]- 8188 February, [facility] [id number] [place] [address] 37977- 2711 February, Major depression, recurrent 296.30 and No condition on [place] II V71.09 [facility] [id number] [place] [address] [id number]- 1267 February, [facility] [id number] [place] [address] [phone]- 4706 February, Panic disorder without agoraphobia 300.01 ; Social phobia 300.23 and Morbid obesity 278.01 [facility] [id number] [place] [address] 68147- 5333 Jan, [facility] [id number] [place] [address] [phone]- 2662 Jan, [facility] [id number] [place] [address] [id number]- 7851 Dec, [facility] [address] [id number] [address] Dec, [facility] [address] [facility] [id number] [id number]83 Dec, [facility] [address] [facility] [id number] [address] 2516 Dec, [facility] [address] [facility] [id number] [address] Dec, [facility] [address] [facility] [id number] [address] Dec, [facility] [address] [facility] [id number] [place] [address] Dec, [facility] [address] [facility] [id number] [place] [address] Dec, [facility] [address] [facility] [id number] [place] [address] Dec, [facility] [address] [facility] [id number] [address] Dec, [facility] [address] [facility] [id number] [address] Dec, [facility] [address] [facility] [id number] [place] [address] Dec, [facility] [address] [facility] [id number] [place] [address] Dec, [facility] [address] [facility] [id number] [place] [address] Dec, [facility] [address] [facility] [id number] [place] [address] Dec, [facility] [address] [facility] [id number] [place] [address] Dec, IMMUNIZATIONS No Known Immunizations SOCIAL HISTORY Never Assessed REASON FOR VISIT Controlled Med Refill 12/06 PLAN OF CARE VITAL SIGNS MEDICATIONS Medication Instructions Dosage Frequency Start Date End Date Duration Status Xanax 0.5 MG Orally Twice a day 1 tablet 12h 26 days Active Hydrocodone-Acetaminophen 10-325 MG Orally 4 times a day 1 tablet 6h 13 Nov 28 days Active RESULTS No Results PROCEDURES [...]
--- OUTSIDE RECORDS SUMMARY | 2018-11-30 17:36 | XMS REPORT ---
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 Name Role Phone YONAS BELLE Unavailable PROBLEMS Type Condition ICD9-CM Code [id number] Code Onset Dates Condition Status SNOMED Code Problem Mild episode of recurrent major depressive disorder F33.0 Active 475924660 Problem Primary insomnia F51.01 Active 1281266 Problem Type 2 diabetes mellitus with diabetic chronic kidney disease E11.22 Active 58865848 Problem Lymphedema I89.0 Active 257786938 Problem Chronic systolic congestive heart failure I50.22 Active 290486720 Problem Constipation, unspecified constipation type K59.00 Active 82305018 Problem Mixed hyperlipidemia E78.2 Active 216171225 Problem Stasis dermatitis of both legs I87.2 Active 33441504 Problem BMI 50.0-59.9, adult Z68.43 Active 574212311 Problem Abnormal liver function test R94.5 Active 011444807 Problem Cardiomegaly I51.7 Active 2032235 Problem Controlled substance agreement terminated Z91.14 Active 138068792 Problem HTN (hypertension) I10 Active 05363516 Problem Degenerative disc disease at L5-S1 level M51.36 Active 34449615 Problem Panic disorder F41.0 Active 382393826 Problem BPH (benign prostatic hyperplasia) N40.0 Active 707101189 Problem Chronic pain G89.29 Active 61281972 Problem Dysthymic disorder F34.1 Active 29157873 ALLERGIES No Information ENCOUNTERS Encounter Location Date Diagnosis [facility] [id number], [place] [address] Mar, Type 2 diabetes mellitus with diabetic chronic kidney disease E11.22 [facility] [id number], [place] [address] 65[address] Mar, Chronic pain G89.29 [facility] [id number] [place] [address] 21508- 0833 February, Chronic pain G89.29 ; Abnormal liver function test R94.5 and Degenerative disc disease at L5-S1 level M51.36 [facility] [id number] [place] [address] 37159- 9981 Jan, [facility] [id number] [place] [address] 84920- 5232 Jan, [facility] [address] 79201- 9146 Jan, [place] [address] 46873- 5141 Jan, Abnormal liver function test R94.5 ; Dysthymic disorder F34.1 and Chronic pain G89.29 [facility] [id number] [place] [address] 97658- 1374 Dec, [place] [id number] [place] [address] 76219- 4113 Dec, HTN (hypertension) I10 ; BMI 45.0-49.9, adult Z68.42 ; Chronic pain G89.29 ; Primary insomnia F51.01 ; Mixed hyperlipidemia E78.2 ; Dysthymic disorder F34.1 ; Type 2 diabetes mellitus with diabetic chronic kidney disease E11.22 ; Stasis dermatitis of both legs I87.2 and Chronic systolic congestive heart failure I50.22 [facility] [id number] [place] [address] 06964- 7911 Dec, Chronic pain G89.29 [facility] [id number] [place] [address] 23047 -6570 Dec, Lymphedema I89.0 and Chronic systolic congestive heart failure I50.22 [facility] [id number] [place] [address] 28261- 3827 Dec, [facility] [id number] [place] [address] 84263- 4849 Nov, Type 2 diabetes mellitus with diabetic chronic kidney disease E11.22 [facility] [place] [id number] [place] [address] 45998- 4203 12 Nov, 2017 Chronic pain G89.29 and Dysthymic disorder F34.1 [facility] [place] [id number] [place] [address] 56705- 8596 08 Nov, 2017 [place] [address] 89841- 9730 Oct, HTN (hypertension) I10 ; Chronic pain G89.29 ; BMI 45.0-49.9 , adult Z68.42 ; Primary insomnia F51.01 ; Mixed hyperlipidemia E78.2 ; Dysthymic disorder F34.1 ; Type 2 diabetes mellitus with diabetic chronic kidney disease E11.22 ; Chronic congestive heart failure, unspecified congestive heart failure type I50.9 ; Acute non-recurrent maxillary sinusitis J01.00 and BMI 50.0-59.9, adult Z68.43 [facility] [place] [id number] [place] [address] 67226- 0490 17 Oct, 2017 HTN (hypertension) I10 and Dysthymic disorder F34.1 [facility] [id number] [place] [address] 58134- 7587 Oct, [facility] [id number] [place] [address] 55783- 9655 Oct, HTN (hypertension) I10 [facility] [id number] [place] [address] 85257- 9558 Oct, Chronic pain G89.29 [facility] [id number] [place] [address] 92981- 3745 Sep, [facility] [id number] [place] [address] 49678- 1936 Sep, HTN (hypertension) I10 ; Chronic pain G89.29 ; BMI 45.0-49.9 , adult Z68.42 ; Primary insomnia F51.01 ; Mixed hyperlipidemia E78.2 ; Dysthymic disorder F34.1 and Type 2 diabetes mellitus with diabetic chronic kidney disease E11.22 [facility] [id number] [place] [address] 72941- 5545 Sep, Chronic pain G89.29 [facility] [id number] [place] [address] 03814- 1385 Sep, Acute on chronic heart failure, unspecified heart failure type I50.9 [facility] [id number] [place] [address] 97569- 4397 Sep, Acute on chronic heart failure, unspecified heart failure type I50.9 ; Type 2 diabetes mellitus with diabetic chronic kidney disease E11.22 and BMI 50.0-59.9, adult Z68.43 [facility] [place] [id number] [place] [address] 94988- 8411 Sep, Acute on chronic heart failure, unspecified heart failure type I50.9 ; HTN (hypertension) I10 and Type 2 diabetes mellitus with diabetic chronic kidney disease E11.22 [facility] [place] [id number] [place] [address] 85768- 3550 Aug, Acute on chronic heart failure, unspecified heart failure type I50.9 ; HTN (hypertension) I10 ; Type 2 diabetes mellitus with diabetic chronic kidney disease E11.22 ; Cellulitis of right lower extremity L03.115 and BMI 50.0-59.9, adult Z68.43 [facility] [id number] [place] [address] 20932 -6165 Aug, Acute upper respiratory infection, unspecified J06.9 ; Other viral agents as the cause of diseases classified elsewhere B97.89 ; Constipation, unspecified constipation type K59.00 ; BMI 50.0-59.9, adult Z68.43 and BMI 60.0-69.9, adult Z68.44 [facility] [place] [address] [place] [address] 83837- 5104 Aug, Chronic pain G89.29 [facility] [id number] [place] [address] 20113- 2780 Jul, Chronic pain G89.29 [facility] [address] [place] [address] 77832- 1649 Jul, Chronic pain G89.29 [facility] [id number] [place] [address] 35294- 5637 Jun, Chronic pain G89.29 [facility] [id number] [place] [address] 20114- 6099 Jun, [facility] [id number] [place] [address] 55283- 5971 Jun, Chronic pain G89.29 [facility] [id number] [place] [address] 39643- 8586 May, Chronic pain G89.29 and Type 2 diabetes mellitus with diabetic chronic kidney disease E11.22 [place] [id number] [place] [address] 38566- 8423 May, [facility] [id number] [place] [address] 16559- 8777 May, Chronic pain G89.29 and Anxiety F41.9 [place] [id number] [place] [address] 18042- 4263 May, Type 2 diabetes mellitus with diabetic chronic kidney disease E11.22 ; Social phobia F40.10 ; Morbid obesity E66.01 ; Chronic pain G89.29 ; HTN (hypertension) I10 ; Degenerative disc disease at L5-S1 level M51.36 ; BPH (benign prostatic hyperplasia) N40.0 ; Pain in right knee M25.561 and 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 [facility] [place] [id number] [place] [address] 35140- 5404 Apr, Anxiety F41.9 [facility] [place] [id number] [place] [address] 77012- 5999 Apr, [facility] [id number] [place] [address] 10341- 2971 Mar, [facility] [id number] [place] [address] 74911- 4441 Mar, Edema, unspecified type R60.9 and Anxiety F41.9 [facility] [place] [id number] [place] [address] 51657- 4553 Mar, Social phobia F40.10 ; Mixed obsessional thoughts and acts F42.2 and Mild episode of recurrent major depressive disorder F33.0 [place] [address] 83141- 8150 Mar, Degenerative disc disease at L5-S1 level M51.[address] 80527- 6515 Mar, [address] 71264- 3102 Mar, [address] 95716- 5865 Mar, [place] [address] 95685- 1121 February, Morbid obesity E66.01 ; Anxiety F41.9 ; Degenerative disc disease at L5-S1 level M51.36 ; BPH (benign prostatic hyperplasia) N40.0 ; Social phobia F40.10 ; HTN (hypertension) I10 ; Edema, unspecified type R60.9 and Screening cholesterol level Z13.220 [place] [address] 93233- 8667 February, Social phobia, generalized F40.11 [place] [id number] [place] [address] 95295- 0082 February, Chronic pain G89.29 [place] [address] 72659- 1649 February, [place] [address] 55230- 9894 Jan, Chronic pain G89.29 [facility] [id number] [place] [address] 11399- 4108 04 Jan, 2017 Panic disorder [episodic paroxysmal anxiety] without agoraphobia F41.0 [facility] [id number] [place] [address] 67919- 3323 13 Dec, 2016 Morbid obesity E66.01 ; Anxiety F41.9 ; Chronic pain G89.29 ; HTN (hypertension) I10 ; BPH (benign prostatic hyperplasia) N40.0 ; Generalized edema R60.1 and Cough R05 [place] [id number] [place] [address] 14344- 4666 14 Nov, 2016 Chronic pain G89.29 [facility] [id number] [place] [address] 52998- 4606 03 Nov, 2016 Social phobia, generalized F40.11 and Mild episode of recurrent major depressive disorder F33.0 [facility] [place] [id number] [place] [address] 66714- 5508 Oct, Chronic pain G89.29 [facility] [id number] [place] [address] 63594- 5328 Oct, Social phobia, generalized F40.11 [place] [id number] [place] [address] 39810- 4123 Sep, [place] [id number] [place] [address] 06946- 7928 Sep, [facility] [id number] [place] [address] 48893- 2200 Sep, [place] [id number] [place] [address] 82584- 9427 Sep, [facility] [place] [id number] [place] [address] 06359- 5875 Sep, [facility] [id number] [place] [address] 42173- 4808 Sep, Social phobia, generalized F40.11 and Mild episode of recurrent major depressive disorder F33.0 [place] [id number] [place] [address] 15615- 4210 08 Sep, 2016 [place] [id number] [place] [address] 08005- 1086 Aug, [facility] [place] [id number] [place] [address] 98444- 4218 Aug, [facility] [id number] [place] [address] 21493- 8151 Aug, Bronchitis J40 [facility] [id number] [place] [address] 31038- 7344 15 Aug, 2016 [place] [id number] [place] [address] 14205- 5833 10 Aug, 2016 Osteoarthritis of knee, unspecified M17.9 [facility] [place] [id number] [place] [address] 70419- 4572 09 Aug, 2016 Morbid obesity E66.01 ; Chronic pain G89.29 ; Anxiety F41.9 ; Social phobia F40.10 ; HTN (hypertension) I10 ; Social phobia, generalized F40.11 ; Acute upper respiratory infection, unspecified J06.9 and Other viral agents as the cause of diseases classified elsewhere B97.89 [facility] [place] [id number] [place] [address] 89908- 8939 Aug, Social phobia, generalized F40.11 and Dysthymic disorder F34.1 [facility] [id number] [place] [address] 98437- 6722 Jul, [place] [id number] [place] [address] 12549- 3767 Jun, [place] [id number] [place] [address] 49409- 2411 May, [place] [id number] [place] [address] 13010- 2025 May, [facility] [address], [place] [address]- 3606 May, [facility] [id number] [place] [address] 11625- 5987 May, [facility] [address], [place] [address]- 8156 May, [facility] [id number] [place] [address] 50240- 0548 May, [facility] [id number] [place] [address] 15784- 6728 May, [facility] [id number] [place] [address] 30825- 9816 Apr, [facility] [id number] [place] [address] 41039- 7667 Apr, Chondromalacia, right knee M94.261 [facility] [address] [place] [address] 40084- 6328 Apr, Pain in unspecified hip M25.559 [facility] [id number] [place] [address] 36695- 1880 Mar, Social phobia, unspecified F40.10 and Pain in unspecified hip M25.559 [facility] [address], [place] [address]- 2751 February, [facility] [address], [place] [address]- 8885 February, Social phobia F40.10 [facility] [address], [place] [address]- 5057 February, Morbid obesity E66.01 ; Chronic pain G89.29 ; Social phobia F40.10 ; Pelvic pain in male R10.2 ; HTN (hypertension) I10 ; Degenerative disc disease at L5-S1 level M51.36 ; BPH (benign prostatic hyperplasia) N40.0 and Pain in right knee M25.561 [facility] [id number] [address]- 5180 14 Jan, 2016 [facility] [id number] [place] [address] 39630- 3912 13 Jan, 2016 [facility] [id number] [place] [address] 97653- 6721 Jan, [facility] [id number] [place] [address] 04948- 5732 Dec, [facility] [id number] [place] [address] 27790- 5362 Dec, [facility] [id number] [place] [address] 25417- 3768 Dec, [facility] [id number] [place] [address] 96500 -9912 Nov, Strep pharyngitis J02.0 ; Influenza A J10.1 and Cough R05 [facility] [id number] [place] [address] 51572- 6086 Nov, [facility] [id number] [place] [address] 16911- 9467 Nov, [facility] [address] [place] [address] 99541- 0314 Oct, HTN (hypertension) I10 ; Morbid obesity E66.01 ; Anxiety F41.9 ; Social phobia F40.10 ; Panic disorder F41.0 ; Degenerative disc disease at L5-S1 level M51.36 and Hypercholesterolemia E78.0 [facility] [id number] [place] [address] 71782- 7027 Oct, Panic disorder [episodic paroxysmal anxiety] without agoraphobia F41.0 and Social phobia, generalized F40.11 [facility] [address], [place] [address]- 4164 Oct, [facility] [id number], [place] [address]- 5006 Sep, [facility] [id number] [place] [address] 05721- 3483 Sep, [facility] [id number] [place] [address] 46643- 4357 Sep, [facility] [id number] [place] [address] 51229- 9718 Sep, [facility] [id number] [place] [address] 40710- 1318 Aug, [facility] [id number] [place] [address] 69413- 5275 Aug, [facility] [id number] [place] [address] 88204- 8337 Aug, [facility] [id number] [place] [address] 04481- 2487 Aug, Social phobia F40.10 and Panic disorder F41.0 [facility] [id number] [place] [address] 21934- 9203 Aug, [facility] [id number] [place] [address] 36810- 1083 Aug, [facility] [address], [place] [address]- 2709 Aug, [facility] [id number] [place] [address] 17205- 0755 Aug, [facility] [id number] [place] [address] 71833- 9603 Jul, [facility] [id number] [place] [address] 07779- 2585 Jul, Morbid obesity E66.01 ; Chronic pain G89.29 ; Anxiety F41.9 ; Social phobia F40.10 ; Panic disorder F41.0 ; Pelvic pain in male R10.2 ; Insomnia G47.00 and HTN (hypertension) I10 [facility] [id number] [place] [address] 66059- 0338 Jul, [facility] [id number] [place] [address] 18711- 5167 Jul, [facility] [id number] [place] [address] 74853- 9032 16 Jun, 2015 Degenerative disc disease 722.6 [facility] [address] 54110- 4653 Jun, Pain in joint, pelvic region and thigh 719.45 ; Morbid obesity 278.01 ; Essential hypertension, benign 401.1 and Constipation 564.00 [facility] [id number] [place] [address] 96588- 9692 May, [facility] [id number] [place] [address] 43994- 8701 May, [facility] [id number] [place] [address] 37951- 4768 May, [facility] [id number] [place] [address] 58705- 4651 May, [facility] [id number] [place] [address] 03871- 2308 May, [facility] [id number] [place] [address] 55877- 8763 May, [facility] [id number] [place] [address] 95679- 3783 May, Essential hypertension, benign 401.1 ; Anxiety state, unspecified 300.00 ; Panic disorder without agoraphobia 300.01 ; Social phobia 300.23 ; Morbid obesity 278.01 ; Other chronic pain 338.29 and Insomnia 780.52 [facility] [id number] [place] [address] 91048- 0001 May, Essential hypertension 401.9 [facility] [address] [place] [address]- 4582 May, Pain in joint, pelvic region and thigh 719.45 [facility] [id number] [place] [address] 49231- 7709 May, Essential hypertension, benign 401.1 [facility] [id number] [place] [address] 10221- 3642 May, Panic disorder without agoraphobia 300.01 and Social phobia 300.23 [facility] [id number] [place] [address] 56638- 1248 May, [facility] [id number] [place] [address] 13386- 8047 May, [facility] [id number] [place] [address] 17730- 1100 Apr, Chronic pain 338.29 [facility] [id number] [place] [address] 93455- 1065 Apr, [facility] [id number] [place] [address] 32719- 5295 Apr, [facility] [id number] [place] [address] 56577- 3569 Apr, [facility] [id number] [place] [address] 38367- 7348 Apr, [facility] [id number] [place] [address] 67905- 7207 Apr, [facility] [id number] [place] [address] 70022- 8937 Apr, [facility] [id number] [place] [address] 23353- 6564 Apr, [facility] [address] 2231 Apr, Essential hypertension, benign 401.1 ; Morbid obesity 278.01 ; Anxiety state, unspecified 300.00 ; Panic disorder without agoraphobia 300.01 ; Social phobia 300.23 and Chronic pain 338.29 [facility] [id number] [place] [address] 36813- 5443 Mar, [facility] [id number] [place] [address] 11540- 9294 Mar, [facility] [id number] [place] [address] 92312- 5926 Mar, [facility] [id number] [place] [address] 40261- 6524 Mar, [facility] [address] 28109- 4355 Mar, Social phobia 300.23 and Panic disorder without agoraphobia 300.01 [facility] [id number] [place] [address] 49458- 5818 Mar, [facility] [id number] [place] [address] 16505- 5728 February, [facility] [id number] [place] [address] 97897- 1658 February, Major depression, recurrent 296.30 and No condition on [place] II V71.09 [facility] [id number] [place] [address] 50967- 7154 February, [facility] [id number] [place] [address] 96338- 4017 February, Panic disorder without agoraphobia 300.01 ; Social phobia 300.23 and Morbid obesity 278.01 [facility] [id number] [place] [address]92- 9990 Jan, [facility] [id number] [place] [address] 03808- 5812 Jan, [facility] [id number] [place] [address] 37448- 3694 Dec, [facility] [address] [id number], [place] [address] Dec, [facility] [address] [facility] [id number][place] [address] Dec, [facility] [address] [facility] [id number], [place] [address] Dec, [facility] [address] [facility] [id number][place] [address] Dec, [facility] [address] [facility] [id number][place] [address] Dec, [facility] [address] [facility] [id number], [place] [address] Dec, [facility] [address] [facility] [id number], [place] [address] Dec, [facility] [address] [facility] [id number], [place] [address]67 Dec, [facility] [address] [facility] [id number], [place] [address] Dec, [facility] [address] [facility] [id number], [place] [address] 5864 Dec, [facility] [address] [facility] [id number], [place] [address] Dec, [facility] [address] [facility] [id number], [place] [address] Dec, [facility] [address] [facility] [id number], [place] [address]283 Dec, [facility] [address] [facility] [id number][place] [address] Dec, [facility] [address] [facility] [id number][place] [address] Dec, IMMUNIZATIONS No Known Immunizations SOCIAL HISTORY Never Assessed REASON FOR VISIT Phone Call PLAN OF CARE VITAL SIGNS MEDICATIONS Unknown [...]
--- OUTSIDE RECORDS SUMMARY | 2018-11-30 17:37 | XMS REPORT ---
Author Author BRENDA JEANMARIE [facility] Address [address] [place] [address] Care Team Providers Care Handle Rounder Operator Name Role Phone JEANMARIE GUTIERREZ Unavailable PROBLEMS Type Condition ICD9-CM Code [id number] Code Onset Dates Condition Status SNOMED Code Problem Mild episode of recurrent major depressive disorder F33.0 Active 022781144 Problem Primary insomnia F51.01 Active 1470737 Problem Type 2 diabetes mellitus with diabetic chronic kidney disease E11.22 Active 55714211 Problem Lymphedema I89.0 Active 962164227 Problem Chronic systolic congestive heart failure I50.22 Active 610042492 Problem Constipation, unspecified constipation type K59.00 Active 85623232 Problem Mixed hyperlipidemia E78.2 Active 848083533 Problem Stasis dermatitis of both legs I87.2 Active 64435638 Problem BMI 50.0-59.9, adult Z68.43 Active 598730838 Problem Abnormal liver function test R94.5 Active 818473493 Problem Cardiomegaly I51.7 Active 5031641 Problem Controlled substance agreement terminated Z91.14 Active 868476025 Problem HTN (hypertension) I10 Active 28537409 Problem Degenerative disc disease at L5-S1 level M51.36 Active 75357029 Problem Panic disorder F41.0 Active 695839086 Problem BPH (benign prostatic hyperplasia) N40.0 Active 995982146 Problem Chronic pain G89.29 Active 62535485 Problem Dysthymic disorder F34.1 Active 17569574 ALLERGIES Substance Reaction Event Type Date Status Wellbutrin Unknown Non Drug Allergy Aug, Active ENCOUNTERS Encounter Location Date Diagnosis [facility] [address] [facility] [id number] [address] February, Chronic pain G89.29 ; Abnormal liver function test R94.5 and Degenerative disc disease at L5-S1 level M51.36 [facility] [address] [facility] [id number] [address] Jan, [facility] [address] [address] Jan, [facility] [address] [address] Jan, [facility] [address] [address] Jan, Abnormal liver function test R94.5 ; Dysthymic disorder F34.1 and Chronic pain G89.29 [facility] [address] [address] Dec, [facility] [id number] [place] [address] 10209- 1260 Dec, HTN (hypertension) I10 ; BMI 45.0-49.9, adult Z68.42 ; Chronic pain G89.29 ; Primary insomnia F51.01 ; Mixed hyperlipidemia E78.2 ; Dysthymic disorder F34.1 ; Type 2 diabetes mellitus with diabetic chronic kidney disease E11.22 ; Stasis dermatitis of both legs I87.2 and Chronic systolic congestive heart failure I50.22 [facility] [id number] [place] [address] 13310- 7553 Dec, Chronic pain G89.29 [facility] [address] [address] Dec, Lymphedema I89.0 and Chronic systolic congestive heart failure I50.22 [facility] [address] [address] Dec, [facility] [id number] [place] [address] 62113- 0747 Nov, Type 2 diabetes mellitus with diabetic chronic kidney disease E11.22 [facility] [address] [address] 25[address] Nov, Chronic pain G89.29 and Dysthymic disorder F34.1 [facility] [id number] [place] [address] 33133- 3691 08 Nov, 2017 [facility] [id number] [place] [address] 17852- 3509 Oct, HTN (hypertension) I10 ; Chronic pain G89.29 ; BMI 45.0-49.9 , adult Z68.42 ; Primary insomnia F51.01 ; Mixed hyperlipidemia E78.2 ; Dysthymic disorder F34.1 ; Type 2 diabetes mellitus with diabetic chronic kidney disease E11.22 ; Chronic congestive heart failure, unspecified congestive heart failure type I50.9 ; Acute non-recurrent maxillary sinusitis J01.00 and BMI 50.0-59.9, adult Z68.43 [facility] [id number] [place] [address] 01560- 5780 17 Oct, 2017 HTN (hypertension) I10 and Dysthymic disorder F34.1 [facility] [address] [address] Oct, [facility] [id number] [place] [address] 11581- 6340 Oct, HTN (hypertension) I10 [facility] [id number] [place] [address] 48511- 7057 Oct, Chronic pain G89.29 [facility] [id number] [place] [address] 14266- 2801 Sep, [facility] [address] [address]- 9391 Sep, HTN (hypertension) I10 ; Chronic pain G89.29 ; BMI 45.0-49.9 , adult Z68.42 ; Primary insomnia F51.01 ; Mixed hyperlipidemia E78.2 ; Dysthymic disorder F34.1 and Type 2 diabetes mellitus with diabetic chronic kidney disease E11.22 [facility] [id number] [place] [address] 58263- 2945 18 Sep, 2017 Chronic pain G89.29 [facility] [address] [place] [address] 1064 Sep, Acute on chronic heart failure, unspecified heart failure type I50.9 [facility] [id number] [place] [address] 96889- 0346 Sep, Acute on chronic heart failure, unspecified heart failure type I50.9 ; Type 2 diabetes mellitus with diabetic chronic kidney disease E11.22 and BMI 50.0-59.9, adult Z68.43 [facility] [id number] [place] [address] 79208- 8839 Sep, Acute on chronic heart failure, unspecified heart failure type I50.9 ; HTN (hypertension) I10 and Type 2 diabetes mellitus with diabetic chronic kidney disease E11.22 [facility] [id number] [place] [address] 39853- 7622 Aug, Acute on chronic heart failure, unspecified heart failure type I50.9 ; HTN (hypertension) I10 ; Type 2 diabetes mellitus with diabetic chronic kidney disease E11.22 ; Cellulitis of right lower extremity L03.115 and BMI 50.0-59.9, adult Z68.43 [facility] [id number] [place] [address] 51759 -5262 Aug, Acute upper respiratory infection, unspecified J06.9 ; Other viral agents as the cause of diseases classified elsewhere B97.89 ; Constipation, unspecified constipation type K59.00 ; BMI 50.0-59.9, adult Z68.43 and BMI 60.0-69.9, adult Z68.44 [facility] [id number] [place] [address] 48933- 8376 Aug, Chronic pain G89.29 [facility] [id number] [place] [address] 73122- 8572 Jul, Chronic pain G89.29 [facility] [id number] [place] [address] 89981- 1713 Jul, Chronic pain G89.29 [facility] [id number] [place] [address] 75030- 8698 Jun, Chronic pain G89.29 [facility] [id number] [place] [address] 63639- 6947 Jun, [facility] [id number] [place] [address] 83899- 0635 Jun, Chronic pain G89.29 [facility] [id number] [place] [address] 21004- 8501 May, Chronic pain G89.29 and Type 2 diabetes mellitus with diabetic chronic kidney disease E11.22 [facility] [id number] [place] [address] 42473- 0423 May, [facility] [id number] [place] [address] 13131- 9151 May, Chronic pain G89.29 and Anxiety F41.9 [place] [id number] [place] [address] 52559- 5214 May, Type 2 diabetes mellitus with diabetic chronic kidney disease E11.22 ; Social phobia F40.10 ; Morbid obesity E66.01 ; Chronic pain G89.29 ; HTN (hypertension) I10 ; Degenerative disc disease at L5-S1 level M51.36 ; BPH (benign prostatic hyperplasia) N40.0 ; Pain in right knee M25.561 and 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 [place] [address] 68244- 0306 Apr, Anxiety F41.9 [facility] [id number] [place] [address] 19097- 1612 Apr, [facility] [id number] [place] [address] 01946- 5694 Mar, [facility] [id number] [place] [address] 31867- 9964 Mar, Edema, unspecified type R60.9 and Anxiety F41.9 [facility] [id number] [place] [address] 46409- 0123 Mar, Social phobia F40.10 ; Mixed obsessional thoughts and acts F42.2 and Mild episode of recurrent major depressive disorder F33.0 [facility] [id number] [place] [address] 66468- 4501 Mar, Degenerative disc disease at L5-S1 level M51.[address] 6[address]36- 3392 Mar, [facility] [address] 27522- 4083 Mar, [address] 89425- 7634 Mar, [place] [id number] [place] [address] 04392- 8690 February, Morbid obesity E66.01 ; Anxiety F41.9 ; Degenerative disc disease at L5-S1 level M51.36 ; BPH (benign prostatic hyperplasia) N40.0 ; Social phobia F40.10 ; HTN (hypertension) I10 ; Edema, unspecified type R60.9 and Screening cholesterol level Z13.220 [place] [id number] [place] [address] 95168- 7783 February, Social phobia, generalized F40.11 [place] [id number] [place] [address] 93543- 2197 February, Chronic pain G89.29 [facility] [address] 79085- 8553 February, [facility] [id number] [place] [address] 79410- 8103 Jan, Chronic pain G89.29 [facility] [id number] [place] [address] 37401- 8092 Jan, Panic disorder [episodic paroxysmal anxiety] without agoraphobia F41.0 [facility] [address] 51777- 7682 13 Dec, 2016 Morbid obesity E66.01 ; Anxiety F41.9 ; Chronic pain G89.29 ; HTN (hypertension) I10 ; BPH (benign prostatic hyperplasia) N40.0 ; Generalized edema R60.1 and Cough R05 [facility] [id number] [place] [address] 94029- 1846 14 Nov, 2016 Chronic pain G89.29 [facility] [id number] [place] [address] 44268- 5684 03 Nov, 2016 Social phobia, generalized F40.11 and Mild episode of recurrent major depressive disorder F33.0 [facility] [id number] [place] [address] 35165- 1028 Oct, Chronic pain G89.29 [facility] [id number] [place] [address] 19371- 7429 Oct, Social phobia, generalized F40.11 [facility] [id number] [place] [address] 54929- 2391 Sep, [facility] [id number] [place] [address] 18030- 7541 Sep, [facility] [id number] [place] [address] 08342- 3259 Sep, [facility] [id number] [place] [address] 56936- 2003 Sep, [facility] [id number] [place] [address] 31540- 254 Sep, [facility] [id number] [place] [address] 33692- 7330 Sep, Social phobia, generalized F40.11 and Mild episode of recurrent major depressive disorder F33.0 [facility] [id number] [place] [address] 66230- 5257 08 Sep, 2016 [facility] [id number] [place] [address] 22452- 8961 Aug, [facility] [id number] [place] [address] 83682- 3127 Aug, [facility] [id number] [place] [address] 70741- 3733 Aug, Bronchitis J40 [facility] [id number] [place] [address] 61545- 4722 15 Aug, 2016 [facility] [id number] [place] [address] 71134- 5010 10 Aug, 2016 Osteoarthritis of knee, unspecified M17.9 [facility] [address] 40238- 9444 09 Aug, 2016 Morbid obesity E66.01 ; Chronic pain G89.29 ; Anxiety F41.9 ; Social phobia F40.10 ; HTN (hypertension) I10 ; Social phobia, generalized F40.11 ; Acute upper respiratory infection, unspecified J06.9 and Other viral agents as the cause of diseases classified elsewhere B97.89 [facility] [id number] [place] [address] 59182- 9905 Aug, Social phobia, generalized F40.11 and Dysthymic disorder F34.1 [facility] [id number] [place] [address] 77038- 2356 Jul, [facility] [id number] [place] [address] 08124- 2933 Jun, [facility] [id number] [place] [address] 83701- 6230 May, [facility] [id number] [place] [address] 04701- 0644 May, [facility] [id number] [place] [address] 29164- 1383 May, [facility] [id number] [place] [address] 22753- 7686 May, [facility] [address] [address]- 1255 May, [facility] [address] [address]- 3471 May, [facility] [address] [address]- 0144 May, [facility] [id number] [place] [address] 85132- 1267 Apr, [facility] [id number] [place] [address] 79594- 5742 Apr, Chondromalacia, right knee M94.261 [facility] [id number] [place] [address] 65452- 6692 Apr, Pain in unspecified hip M25.559 [facility] [id number] [place] [address] 08988- 9485 Mar, Social phobia, unspecified F40.10 and Pain in unspecified hip M25.559 [facility] [id number] [place] [address] 71414- 9725 February, [facility] [id number] [place] [address] 21719- 1400 February, Social phobia F40.10 [facility] [id number] [place] [address] 28369- 0341 February, Morbid obesity E66.01 ; Chronic pain G89.29 ; Social phobia F40.10 ; Pelvic pain in male R10.2 ; HTN (hypertension) I10 ; Degenerative disc disease at L5-S1 level M51.36 ; BPH (benign prostatic hyperplasia) N40.0 and Pain in right knee M25.561 [facility] [address] [address]- 6358 Jan, [facility] [id number] [place] [address] 63760- 6593 Jan, [facility] [address] [address]- 6082 Jan, [facility] [id number] [place] [address] 12310- 4290 Dec, [facility] [id number] [place] [address] 94186- 9657 Dec, [facility] [address] 89212- 2553 Dec, [facility] [id number] [place] [address] 90279 -5140 Nov, Strep pharyngitis J02.0 ; Influenza A J10.1 and Cough R05 [facility] [address] [place] [id number] [place] [address] 16511- 0114 Nov, [facility] [address] 69651- 9548 Nov, [facility] [id number] [place] [address] 90577- 4999 Oct, HTN (hypertension) I10 ; Morbid obesity E66.01 ; Anxiety F41.9 ; Social phobia F40.10 ; Panic disorder F41.0 ; Degenerative disc disease at L5-S1 level M51.36 and Hypercholesterolemia E78.0 [facility] [id number] [place] [address] 81291- 7680 Oct, Panic disorder [episodic paroxysmal anxiety] without agoraphobia F41.0 and Social phobia, generalized F40.11 [facility] [id number] [place] [address] 62788- 8195 Oct, [facility] [id number] [place] [address] 07445- 2260 Sep, [facility] [id number] [place] [address] 76624- 5440 Sep, [facility] [address] [place] [address]- 0456 Sep, [facility] [id number] [place] [address] 99795- 5042 Sep, [facility] [id number] [place] [address] 41853- 0341 Aug, [facility] [id number] [place] [address] 03422- 5964 Aug, [facility] [address] 01094- 5754 Aug, [facility] [id number] [place] [address] 79642- 6253 Aug, Social phobia F40.10 and Panic disorder F41.0 [facility] [id number] [place] [address] 53181- 2602 Aug, [facility] [address] 74850- 9480 Aug, [facility] [id number] [place] [address] 31448- 1593 Aug, [facility] [address] 53958- 0065 Aug, [facility] [id number] [place] [address] 40418- 6311 Jul, [facility] [id number] [place] [address] 69343- 1758 Jul, Morbid obesity E66.01 ; Chronic pain G89.29 ; Anxiety F41.9 ; Social phobia F40.10 ; Panic disorder F41.0 ; Pelvic pain in male R10.2 ; Insomnia G47.00 and HTN (hypertension) I10 [facility] [id number] [place] [address] 54008- 5853 Jul, [facility] [id number] [place] [address] 76790- 6558 Jul, [facility] [address] [address]- 8914 Jun, Degenerative disc disease 722.6 [facility] [id number] [place] [address] 23108- 9594 Jun, Pain in joint, pelvic region and thigh 719.45 ; Morbid obesity 278.01 ; Essential hypertension, benign 401.1 and Constipation 564.00 [facility] [id number] [place] [address] 05011- 7291 May, [facility] [id number] [place] [address] 43652- 4182 May, [facility] [id number] [place] [address] 38114- 7642 May, [facility] [id number] [place] [address] 57972- 8037 May, [facility] [id number] [place] [address] 70521- 2517 May, [facility] [id number] [place] [address] 28799- 9185 May, [facility] [id number] [place] [address] 85120- 8467 May, Essential hypertension, benign 401.1 ; Anxiety state, unspecified 300.00 ; Panic disorder without agoraphobia 300.01 ; Social phobia 300.23 ; Morbid obesity 278.01 ; Other chronic pain 338.29 and Insomnia 780.52 [facility] [address] [address]- 5382 May, Essential hypertension 401.9 [facility] [id number] [place] [address] 03544- 6808 May, Pain in joint, pelvic region and thigh 719.45 [facility] [id number] [place] [address] 59042- 4020 May, Essential hypertension, benign 401.1 [facility] [address] [address]- 3019 May, Panic disorder without agoraphobia 300.01 and Social phobia 300.23 [facility] [address] [address]- 9563 May, [facility] [address] [address]- 6824 May, [facility] [address] [address]- 3780 Apr, Chronic pain 338.29 [facility] [id number] [place] [address] 65304- 4385 Apr, [facility] [address] [address]- 3967 Apr, [facility] [id number] [place] [address] 41785- 9400 Apr, [facility] [address] [address]- 2755 Apr, [facility] [id number] [place] [address] 70669- 6621 Apr, [facility] [address] [address]- 0114 Apr, [facility] [address] [address]- 9737 Apr, [facility] [address] [address]- 7207 Apr, Essential hypertension, benign 401.1 ; Morbid obesity 278.01 ; Anxiety state, unspecified 300.00 ; Panic disorder without agoraphobia 300.01 ; Social phobia 300.23 and Chronic pain 338.29 [facility] [address] [address]- 0453 Mar, [facility] [id number] [address]- 8952 08 Mar, 2015 [facility] [address] [address]- 3095 Mar, [facility] [address] [address]- 1530 Mar, [facility] [id number] [place] [address] 82444- 2762 Mar, Social phobia 300.23 and Panic disorder without agoraphobia 300.01 [facility] [address] [address]- 8856 Mar, [facility] [id number] [place] [address] 41527- 3108 February, [facility] [id number] [place] [address] 23526- 7942 February, Major depression, recurrent 296.30 and No condition on [place] II V71.09 [facility] [address] [address]- 8432 February, [facility] [id number] [place] [address] 32149- 5497 February, Panic disorder without agoraphobia 300.01 ; Social phobia 300.23 and Morbid obesity 278.01 [facility] [address] [address]- 7112 Jan, [facility] [address] [address]- 1089 Jan, [facility] [address] [address]- 6947 Dec, [facility] [address] [address]- 3665 Dec, [facility] [address] [address]- 9015 Dec, [facility] [id number] [place] [id number] Dec, [facility] [id number] [address] Dec, [facility] [id number] [address] Dec, [facility] [id number] [address] Dec, [facility] [id number] [address] Dec, [facility] [id number] [place] [id number] Dec, [facility] [id number] [address] Dec, [facility] [id number] [address] Dec, [facility] [id number] [address] Dec, [facility] [id number] [address] Dec, [facility] [id number] [address] Dec, [facility] [facility] [id number] [address] Dec, [facility] [id number] [address] Dec, IMMUNIZATIONS No Known Immunizations SOCIAL HISTORY Never Assessed REASON FOR VISIT Swelling, Pt went to ER yesterday for swelling. Has CHF. Regular PCP is Maria Luisa. Was given lasix 20mg and potassium. States he weighed 417 yesterday in the ER. Weighed 422 today in clinic. States fluid is seeping out of sores on his legs. The ER told him he has fluid on his lungs -KMcDaniel,RN PLAN OF CARE Activity Details Follow Up 1 Week Reason:CHF follow-up VITAL SIGNS Height 73 in 2017-09-21 Weight 422.8 lbs 2017-09-21 Temperature 97.7 degrees Fahrenheit 2017-09-21 Heart Rate 86 bpm 2017-09-21 Respiratory Rate 22 2017-09-21 Oximetry 95 % 2017-09-21 BMI 55.78 kg/m2 2017-09-21 Blood pressure systolic 110 mmHg 2017-09-21 Blood pressure diastolic 80 mmHg 2017-09-21 MEDICATIONS Medication Instructions Dosage Frequency Start Date End Date Duration Status Metformin HCl 500 mg Orally Once a day 1 tablet with meals 24h Aug, 30 day(s) Active Metoprolol Succinate ER 50 MG TAKE ONE TABLET BY MOUTH ONCE DAILY Active Hydrochlorothiazide 12.5 MG Orally Once a day 1 capsule by Oral route 1 time per day take in am for blood pressure 24h Active Hydrocodone-Acetaminophen 10-325 MG Orally 4 times a day 1 tablet 6h Aug 28 days Active Fluticasone Propionate 50 MCG/ACT Nasally Once a day 2 spray in each nostril 24h Aug, 30 day(s) Active Lasix 40 MG Orally Once a day 1 tablet 24h 30 days Active Bactrim DS 800-160 MG Orally Twice a day 1 tablet 12h Aug, Sep, 10 day(s) Active Trazodone HCl 50 MG TAKE ONE TABLET BY MOUTH AT BEDTIME NEEDED 30 Active Verapamil HCl ER 360 MG Orally Once a day 1 capsule in the morning 24h Active Blood Glucose Monitor System w/Device as directed Mar, Not-Taking Wheelchair N/A as directed Aug, Active MiraLax - Orally Once a day 1 packet mixed with 8 ounces of fluid 24h Aug, Sep, 30 day(s) Active Potassium Chloride Kristen ER 20 meq Orally Once a day with lasix 1 tablet with food Aug, Oct, 30 day(s) Active Lisinopril 40 mg oral once a day 1 tablet 24h Active Xanax 0.5 MG Orally Twice a day 1 tablet 12h February, 28 days Active Blood Glucose Test - as directed Mar, Not-Taking RESULTS No Results PROCEDURES Procedure Date Ordered Result Body Site MEASURE BLOOD OXYGEN LEVEL Sep 21, 2017 [facility] VISIT ESTABLISHED PATIENT Sep 21, 2017 INSTRUCTIONS MEDICATIONS ADMINISTERED No Known Medications [...]
--- OUTSIDE RECORDS SUMMARY | 2018-11-30 17:38 | XMS REPORT ---
Author Author YONAS BELLE [facility] Address [address] [place] [address] Care Team Providers Care [employer] Manager Name Role Phone YONAS BELLE Unavailable PROBLEMS Type Condition ICD9-CM Code DUC31-WH Code Onset Dates Condition Status SNOMED Code Problem Mild episode of recurrent major depressive disorder F33.0 Active 329923820 Problem Primary insomnia F51.01 Active 0223094 Problem Type 2 diabetes mellitus with diabetic chronic kidney disease E11.22 Active 20181420 Problem Lymphedema I89.0 Active 069751525 Problem Chronic systolic congestive heart failure I50.22 Active 590929499 Problem Constipation, unspecified constipation type K59.00 Active 60607847 Problem Mixed hyperlipidemia E78.2 Active 985509661 Problem Stasis dermatitis of both legs I87.2 Active 38529023 Problem BMI 50.0-59.9, adult Z68.43 Active 481542759 Problem Abnormal liver function test R94.5 Active 968367856 Problem Cardiomegaly I51.7 Active 7800239 Problem Controlled substance agreement terminated Z91.14 Active 110850744 Problem HTN (hypertension) I10 Active 88892836 Problem Degenerative disc disease at L5-S1 level M51.36 Active 42061653 Problem Panic disorder F41.0 Active 476776435 Problem BPH (benign prostatic hyperplasia) N40.0 Active 885615246 Problem Chronic pain G89.29 Active 12864694 Problem Dysthymic disorder F34.1 Active 92079315 ALLERGIES Substance Reaction Event Type Date Status Wellbutrin Unknown Non Drug Allergy Sep, Active ENCOUNTERS Encounter Location Date Diagnosis [facility] [address] [facility] [id number] [address] Mar, [facility] [address] [facility] [id number], [place] [address] February, Chronic pain G89.29 ; Abnormal liver function test R94.5 and Degenerative disc disease at L5-S1 level M51.36 [facility] [id number] [place] [address] 91866- 4508 Jan, [facility] [id number] [place] [address] 24863- 2414 Jan, [facility] [id number] [place] [address] 31035- 5959 Jan, [place] [address] 97406- 5840 Jan, Abnormal liver function test R94.5 ; Dysthymic disorder F34.1 and Chronic pain G89.29 [place] [address] 86481- 6653 Dec, [facility] [id number] [place] [address] 88714- 9313 Dec, HTN (hypertension) I10 ; BMI 45.0-49.9, adult Z68.42 ; Chronic pain G89.29 ; Primary insomnia F51.01 ; Mixed hyperlipidemia E78.2 ; Dysthymic disorder F34.1 ; Type 2 diabetes mellitus with diabetic chronic kidney disease E11.22 ; Stasis dermatitis of both legs I87.2 and Chronic systolic congestive heart failure I50.22 [facility] [id number] [place] [address] 36140- 6877 Dec, Chronic pain G89.29 [facility] [id number] [place] [address] 94285 -9545 Dec, Lymphedema I89.0 and Chronic systolic congestive heart failure I50.22 [facility] [id number] [place] [address] 52355- 5891 Dec, [facility] [id number] [place] [address] 77183- 7724 Nov, Type 2 diabetes mellitus with diabetic chronic kidney disease E11.22 [facility] [address] 88961- 5397 12 Nov, 2017 Chronic pain G89.29 and Dysthymic disorder F34.1 [place] [id number] [place] [address] 48568- 3550 08 Nov, 2017 [place] [id number] [place] [address] 87103- 8899 Oct, HTN (hypertension) I10 ; Chronic pain G89.29 ; BMI 45.0-49.9 , adult Z68.42 ; Primary insomnia F51.01 ; Mixed hyperlipidemia E78.2 ; Dysthymic disorder F34.1 ; Type 2 diabetes mellitus with diabetic chronic kidney disease E11.22 ; Chronic congestive heart failure, unspecified congestive heart failure type I50.9 ; Acute non-recurrent maxillary sinusitis J01.00 and BMI 50.0-59.9, adult Z68.43 [facility] [id number] [place] [address] 58563- 7383 17 Oct, 2017 HTN (hypertension) I10 and Dysthymic disorder F34.1 [facility] [address] [id number] [place] [address] 75349- 0856 Oct, [facility] [id number] [place] [address] 05568- 4926 Oct, HTN (hypertension) I10 [place] [id number] [place] [address] 42810- 2049 Oct, Chronic pain G89.29 [place] [id number] [place] [address] 61879- 9228 Sep, [place] [id number] [place] [address] 22135- 5641 Sep, HTN (hypertension) I10 ; Chronic pain G89.29 ; BMI 45.0-49.9 , adult Z68.42 ; Primary insomnia F51.01 ; Mixed hyperlipidemia E78.2 ; Dysthymic disorder F34.1 and Type 2 diabetes mellitus with diabetic chronic kidney disease E11.22 [place] [id number] [place] [address] 79764- 9815 Sep, Chronic pain G89.29 [facility] [id number] [address] 0[address] Sep, Acute on chronic heart failure, unspecified heart failure type I50.9 [facility] [address] [address] 8548 Sep, Acute on chronic heart failure, unspecified heart failure type I50.9 ; Type 2 diabetes mellitus with diabetic chronic kidney disease E11.22 and BMI 50.0-59.9, adult Z68.43 [place] [id number] [place] [address] 07057- 4546 Sep, Acute on chronic heart failure, unspecified heart failure type I50.9 ; HTN (hypertension) I10 and Type 2 diabetes mellitus with diabetic chronic kidney disease E11.22 [place] [id number] [place] [address] 75825- 5179 Aug, Acute on chronic heart failure, unspecified heart failure type I50.9 ; HTN (hypertension) I10 ; Type 2 diabetes mellitus with diabetic chronic kidney disease E11.22 ; Cellulitis of right lower extremity L03.115 and BMI 50.0-59.9, adult Z68.43 [facility] [address] [address] Aug, Acute upper respiratory infection, unspecified J06.9 ; Other viral agents as the cause of diseases classified elsewhere B97.89 ; Constipation, unspecified constipation type K59.00 ; BMI 50.0-59.9, adult Z68.43 and BMI 60.0-69.9, adult Z68.44 [facility] [address] [address] 4132 Aug, Chronic pain G89.29 [place] [facility] [address] [address] 7876 Jul, Chronic pain G89.29 [facility] [id number] [place] [address] 34792- 8748 Jul, Chronic pain G89.29 [place] [id number] [place] [address] 03422- 4099 Jun, Chronic pain G89.29 [facility] [address] [id number] [place] [address] 42161- 6838 Jun, [facility] [address] [id number] [place] [address] 48562- 3897 Jun, Chronic pain G89.29 [facility] [place] [id number] [place] [address] 58821- 8462 May, Chronic pain G89.29 and Type 2 diabetes mellitus with diabetic chronic kidney disease E11.22 [facility] [address] [id number] [place] [address] 15491- 1197 16 May, 2017 [place] [address] [id number] [place] [address] 84384- 5746 May, Chronic pain G89.29 and Anxiety F41.9 [place] [id number] [place] [address] 73734- 6125 May, Type 2 diabetes mellitus with diabetic chronic kidney disease E11.22 ; Social phobia F40.10 ; Morbid obesity E66.01 ; Chronic pain G89.29 ; HTN (hypertension) I10 ; Degenerative disc disease at L5-S1 level M51.36 ; BPH (benign prostatic hyperplasia) N40.0 ; Pain in right knee M25.561 and 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 [place] [id number] [address]- 6136 Apr, Anxiety F41.9 [place] [id number] [place] [address] 80272- 1027 Apr, [place] [address] [id number] [place] [address] 15694- 4876 Mar, [facility] [id number] [place] [address] 04141- 1708 Mar, Edema, unspecified type R60.9 and Anxiety F41.9 [facility] [facility] [id number] [place] [address] 17653- 9037 Mar, Social phobia F40.10 ; Mixed obsessional thoughts and acts F42.2 and Mild episode of recurrent major depressive disorder F33.0 [facility] [id number] [place] [address] 01615- 0191 Mar, Degenerative disc disease at L5-S1 level M51.36 [place] [address] 74145- 7120 Mar, [address] 72223- 4188 Mar, [place] [id number] [place] [address] 12834- 4734 Mar, [place] [address] 48088- 1918 February, Morbid obesity E66.01 ; Anxiety F41.9 ; Degenerative disc disease at L5-S1 level M51.36 ; BPH (benign prostatic hyperplasia) N40.0 ; Social phobia F40.10 ; HTN (hypertension) I10 ; Edema, unspecified type R60.9 and Screening cholesterol level Z13.220 [place] [facility] [address] [id number] [place] [address] 70547- 9259 February, Social phobia, generalized F40.11 [facility] [place] [address] [id number] [place] [address] 88928- 7680 February, Chronic pain G89.29 [facility] [address] [id number] [place] [address] 38982- 0034 February, [place] [id number] [place] [address] 92623- 2274 Jan, Chronic pain G89.29 [facility] [id number] [place] [address] 29674- 0286 Jan, Panic disorder [episodic paroxysmal anxiety] without agoraphobia F41.0 [place] [id number] [place] [address] 56098- 0112 Dec, Morbid obesity E66.01 ; Anxiety F41.9 ; Chronic pain G89.29 ; HTN (hypertension) I10 ; BPH (benign prostatic hyperplasia) N40.0 ; Generalized edema R60.1 and Cough R05 [place] [address] 81407- 3267 14 Nov, 2016 Chronic pain G89.29 [place] [address] 55415- 7095 Nov, Social phobia, generalized F40.11 and Mild episode of recurrent major depressive disorder F33.0 [place] [address] 31126- 2358 Oct, Chronic pain G89.29 [place] [address] 14304- 9749 Oct, Social phobia, generalized F40.11 [place] [id number] [place] [address] 94123- 1108 Sep, [place] [id number] [place] [address] 67483- 1764 Sep, [facility] [id number] [place] [address] 82992- 4173 Sep, [place] [id number] [place] [address] 29551- 3834 Sep, [place] [id number] [place] [address] 41190- 4365 Sep, [facility] [address] [id number] [place] [address] 41380- 6440 Sep, Social phobia, generalized F40.11 and Mild episode of recurrent major depressive disorder F33.0 [place] [address] 60990- 8160 08 Sep, 2016 [facility] [id number] [address]- 1807 Aug, [facility] [id number] [place] [address] 32714- 5074 Aug, [facility] [id number] [place] [address] 88991- 2615 17 Aug, 2016 Bronchitis J40 [facility] [id number] [place] [address] 07328- 8715 15 Aug, 2016 [facility] [id number] [place] [address] 54379- 1738 10 Aug, 2016 Osteoarthritis of knee, unspecified M17.9 [facility] [id number] [place] [address] 02841- 6781 09 Aug, 2016 Morbid obesity E66.01 ; Chronic pain G89.29 ; Anxiety F41.9 ; Social phobia F40.10 ; HTN (hypertension) I10 ; Social phobia, generalized F40.11 ; Acute upper respiratory infection, unspecified J06.9 and Other viral agents as the cause of diseases classified elsewhere B97.89 [facility] [id number] [place] [address] 98249- 5039 08 Aug, 2016 Social phobia, generalized F40.11 and Dysthymic disorder F34.1 [facility] [id number] [place] [address] 40031- 6371 Jul, [facility] [id number] [place] [address] 41346- 4918 Jun, [facility] [id number] [place] [address] 73495- 3670 May, [facility] [id number] [place] [address] 60623- 7145 May, [facility] [id number] [place] [address] 14084- 4275 May, [facility] [id number], [place] [address]- 0892 May, [facility] [id number], [place] [address]- 3976 May, [facility] [id number] [address]- 7712 May, [facility] [id number] [place] [address] 28435- 2261 May, [facility] [id number] [place] [address] 64618- 8883 Apr, [facility] [id number] [place] [address] 51538- 6800 Apr, Chondromalacia, right knee M94.261 [facility] [id number] [place] [address] 33298- 2669 Apr, Pain in unspecified hip M25.559 [facility] [id number] [place] [address] 16613- 1119 Mar, Social phobia, unspecified F40.10 and Pain in unspecified hip M25.559 [facility] [address] [address]- 2089 February, [facility] [id number] [address]- 6770 February, Social phobia F40.10 [facility] [address] [address]- 0342 February, Morbid obesity E66.01 ; Chronic pain G89.29 ; Social phobia F40.10 ; Pelvic pain in male R10.2 ; HTN (hypertension) I10 ; Degenerative disc disease at L5-S1 level M51.36 ; BPH (benign prostatic hyperplasia) N40.0 and Pain in right knee M25.561 [facility] [address] [address]- 5034 14 Jan, 2016 [facility] [id number] [place] [address] 11183- 0946 13 Jan, 2016 [facility] [id number] [place] [address] 48925- 5938 Jan, [facility] [id number] [place] [address] 62989- 5951 Dec, [facility] [address] 93696- 5639 Dec, [facility] [id number] [place] [address] 24308- 0701 Dec, [facility] [id number] [place] [address] 85585 -4205 Nov, Strep pharyngitis J02.0 ; Influenza A J10.1 and Cough R05 [address] 02971- 2163 Nov, [facility] [id number] [place] [address] 40864- 1936 Nov, [facility] [id number] [place] [address] 11727- 6524 Oct, HTN (hypertension) I10 ; Morbid obesity E66.01 ; Anxiety F41.9 ; Social phobia F40.10 ; Panic disorder F41.0 ; Degenerative disc disease at L5-S1 level M51.36 and Hypercholesterolemia E78.0 [facility] [id number] [place] [address] 63695- 2979 Oct, Panic disorder [episodic paroxysmal anxiety] without agoraphobia F41.0 and Social phobia, generalized F40.11 [place] [id number] [place] [address] 09629- 1225 Oct, [facility] [id number] [place] [address] 99330- 2042 Sep, [facility] [address] [place] [address]- 3431 Sep, [facility] [id number] [place] [address] 72563- 5139 Sep, [facility] [id number] [place] [address] 88847- 4250 Sep, [facility] [id number] [place] [address] 09409- 8195 Aug, [facility] [id number] [place] [address] 28215- 5675 Aug, [facility] [id number] [place] [address] 15120- 4520 Aug, [facility] [id number] [place] [address] 30388- 3212 Aug, Social phobia F40.10 and Panic disorder F41.0 [facility] [id number] [place] [address] 09587- 0987 Aug, [facility] [id number] [place] [address] 66752- 5927 Aug, [facility] [id number] [place] [address] 80159- 6811 Aug, [facility] [id number] [place] [address] 28438- 9843 Aug, [facility] [id number] [place] [address] 05620- 9905 Jul, [facility] [id number] [place] [address] 27875- 4202 Jul, Morbid obesity E66.01 ; Chronic pain G89.29 ; Anxiety F41.9 ; Social phobia F40.10 ; Panic disorder F41.0 ; Pelvic pain in male R10.2 ; Insomnia G47.00 and HTN (hypertension) I10 [facility] [id number] [place] [address] 30113- 1091 Jul, [facility] [id number] [address]- 4186 Jul, [facility] [id number] [place] [address] 70212- 3787 Jun, Degenerative disc disease 722.6 [facility] [id number] [place] [address] 73572- 7574 Jun, Pain in joint, pelvic region and thigh 719.45 ; Morbid obesity 278.01 ; Essential hypertension, benign 401.1 and Constipation 564.00 [facility] [id number] [place] [address] 13990- 1407 May, [facility] [id number] [place] [address] 45425- 4149 May, [facility] [id number] [place] [address] 58666- 3335 May, [facility] [id number] [place] [address] 16773- 1934 May, [facility] [id number] [place] [address] 84736- 7510 May, [facility] [id number] [place] [address] 65764- 5806 May, [facility] [id number] [place] [address] 32660- 2001 May, Essential hypertension, benign 401.1 ; Anxiety state, unspecified 300.00 ; Panic disorder without agoraphobia 300.01 ; Social phobia 300.23 ; Morbid obesity 278.01 ; Other chronic pain 338.29 and Insomnia 780.52 [facility] [id number] [place] [address] 67408- 5728 May, Essential hypertension 401.9 [facility] [id number] [place] [address] 54802- 4090 May, Pain in joint, pelvic region and thigh 719.45 [facility] [id number], [place] [address]- 8965 May, Essential hypertension, benign 401.1 [facility] [id number], [place] [address]- 7242 May, Panic disorder without agoraphobia 300.01 and Social phobia 300.23 [facility] [id number], [place] [address]- 6503 May, [facility] [id number], [place] [address]- 4144 May, [facility] [id number] [place] [address] 41894- 2922 Apr, Chronic pain 338.29 [facility] [address], [place] [address]- 0208 Apr, [facility] [id number] [place] [address] 07215- 5634 Apr, [facility] [id number], [place] [address]- 7405 Apr, [facility] [id number], [place] [address]- 2642 Apr, [facility] [id number] [address]- 9109 Apr, [facility] [id number], [place] [address]- 6326 Apr, [facility] [id number], [place] [address]- 6059 Apr, [facility] [id number] [address]- 4354 Apr, Essential hypertension, benign 401.1 ; Morbid obesity 278.01 ; Anxiety state, unspecified 300.00 ; Panic disorder without agoraphobia 300.01 ; Social phobia 300.23 and Chronic pain 338.29 [facility] [id number] [address]- 3465 Mar, [facility] [id number] [address]- 0442 Mar, [facility] [id number] [address]- 4491 Mar, [facility] [id number] [place] [address] 36599- 8073 Mar, [facility] [id number] [place] [address] 68507- 5083 Mar, Social phobia 300.23 and Panic disorder without agoraphobia 300.01 [facility] [id number] [place] [address] 41066- 9757 Mar, [facility] [id number] [place] [address] 51891- 0929 February, [facility] [id number] [place] [address] 68535- 5334 February, Major depression, recurrent 296.30 and No condition on Petroleum II V71.09 [facility] [id number] [place] [address] 33845- 1196 February, [facility] [id number], [place] [address]- 4410 February, Panic disorder without agoraphobia 300.01 ; Social phobia 300.23 and Morbid obesity 278.01 [facility] [id number] [address] Jan, [facility] [id number] [place] [id number] Jan, [facility] [address] [id number] [address] Dec, [facility] [id number] [address] Dec, [facility] [address] [facility] [id number], [place] [address] Dec, [facility] [address] [facility] [id number], [place] [address] Dec, [facility] [address] [facility] [id number], [place] [address] Dec, [facility] [address] [facility] [id number], [place] [address] Dec, [facility] [address] [facility] [id number], [place] [address] Dec, [facility] [address] [facility] [id number][place] [address] Dec, [facility] [address] [facility] [id number], [place] [address] Dec, [facility] [id number] [address] Dec, [facility] [address] [facility] [id number], [place] [address] Dec, [facility] [id number] [address] Dec, [facility] [address] [id number], [place] [address] Dec, [facility] [address] [id number] [address] Dec, [facility] [address] [facility] [id number][place] [address] Dec, [facility] [address] [id number] [address] Dec, IMMUNIZATIONS No Known Immunizations SOCIAL HISTORY Never Assessed REASON FOR VISIT Transition of Care, Hospital f/u, water retention, was discharged yesterday- Cornelio PLAN OF CARE Activity Details Follow Up 4-5 Reason:DM CHM VITAL SIGNS Height 73 in 2017-10-12 Weight 374.4 lbs 2017-10-12 Temperature 97.3 degrees Fahrenheit 2017-10-12 Heart Rate 84 bpm 2017-10-12 Respiratory Rate 20 2017-10-12 BMI 49.39 kg/m2 2017-10-12 Blood pressure systolic 116 mmHg 2017-10-12 Blood pressure diastolic 74 mmHg 2017-10-12 MEDICATIONS Medication Instructions Dosage Frequency Start Date End Date Duration Status Lisinopril 20 MG Orally Once a day 1 tablet 24h Active Pravastatin Sodium 10 mg Orally Once a day 1 tablet 24h Sep, 30 day(s) Active Spironolactone 25 MG Orally Once a day 1 tablet 24h Active Lasix 40 MG Orally Once a day 1 tablet 24h Active Trazodone HCl 50 MG TAKE ONE TABLET BY MOUTH AT BEDTIME NEEDED 30 Active Blood Glucose Monitor System w/Device as directed Mar, Not-Taking Fluticasone Propionate 50 MCG/ACT Nasally Once a day 2 spray in each nostril 24h Aug, 30 day(s) Not-Taking Wheelchair N/A as directed Aug, Active MiraLax - Orally Once a day 1 packet mixed with 8 ounces of fluid 24h Aug, Sep, 30 day(s) Not-Taking Potassium Chloride Kristen ER 20 meq Orally Once a day with lasix 1 tablet with food Aug, Active Xanax 0.5 MG Orally Twice a day 1 tablet 12h February, Active Metoprolol Succinate ER 50 MG TAKE ONE TABLET BY MOUTH ONCE DAILY Active Blood Glucose Test - as directed Mar, Not-Taking Hydrocodone-Acetaminophen 10-325 MG Orally 4 times a day 1 tablet 6h Sep Active RESULTS Name Result Date Reference Range A1C (IN HOUSE) 2017-10-12 A1C IN HOUSE 7.4 4.3 - 5.6 % Previous A1c 8.6 Lot [id number] Exp date 06/2019 PROCEDURES Procedure Date Ordered Result Body Site [facility] VISIT ESTABLISHED PATIENT Oct 12, 2017 GLYCATED HEMOGLOBIN TEST Oct 12, 2017 INSTRUCTIONS MEDICATIONS ADMINISTERED No Known Medications [...]
--- OUTSIDE RECORDS SUMMARY | 2018-11-30 17:39 | XMS REPORT ---
Author Author YONAS BELLE [facility] Address [address] [place] [address] Care Team Providers Care Manager Transfusion Name Role Phone YONAS BELLE Unavailable PROBLEMS Type Condition ICD9-CM Code BCO29-LJ Code Onset Dates Condition Status SNOMED Code Problem Mild episode of recurrent major depressive disorder F33.0 Active 679741247 Problem Primary insomnia F51.01 Active 8235531 Problem Type 2 diabetes mellitus with diabetic chronic kidney disease E11.22 Active 16419278 Problem Lymphedema I89.0 Active 808651819 Problem Chronic systolic congestive heart failure I50.22 Active 533345557 Problem Constipation, unspecified constipation type K59.00 Active 81639937 Problem Mixed hyperlipidemia E78.2 Active 533347944 Problem Stasis dermatitis of both legs I87.2 Active 33825373 Problem BMI 50.0-59.9, adult Z68.43 Active 472856924 Problem Abnormal liver function test R94.5 Active 984933040 Problem Cardiomegaly I51.7 Active 7067182 Problem Controlled substance agreement terminated Z91.14 Active 287116317 Problem HTN (hypertension) I10 Active 78667972 Problem Degenerative disc disease at L5-S1 level M51.36 Active 29170007 Problem Panic disorder F41.0 Active 985631053 Problem BPH (benign prostatic hyperplasia) N40.0 Active 683553895 Problem Chronic pain G89.29 Active 40706039 Problem Dysthymic disorder F34.1 Active 16194847 ALLERGIES No Information ENCOUNTERS Encounter Location Date Diagnosis [facility] [id number] [address] February, Chronic pain G89.29 ; Abnormal liver function test R94.5 and Degenerative disc disease at L5-S1 level M51.36 [facility] [address] [facility] [id number] [address] Jan, [facility] [id number] [place] [address] 31164- 3642 Jan, [facility] [id number] [place] [address] 26683- 9688 Jan, [facility] [id number] [place] [address] 02873- 3313 Jan, Abnormal liver function test R94.5 ; Dysthymic disorder F34.1 and Chronic pain G89.29 [facility] [id number] [place] [address] 18572- 3516 Dec, [place] [address] [address]- [address]99 Dec, HTN (hypertension) I10 ; BMI 45.0-49.9, adult Z68.42 ; Chronic pain G89.29 ; Primary insomnia F51.01 ; Mixed hyperlipidemia E78.2 ; Dysthymic disorder F34.1 ; Type 2 diabetes mellitus with diabetic chronic kidney disease E11.22 ; Stasis dermatitis of both legs I87.2 and Chronic systolic congestive heart failure I50.22 [place] [id number] [place] [address] 47737- 4223 Dec, Chronic pain G89.29 [facility] [id number] [place] [address] 93181 -1669 Dec, Lymphedema I89.0 and Chronic systolic congestive heart failure I50.22 [facility] [id number] [place] [address] 96357- 4085 Dec, [facility] [id number] [place] [address] 35486- 1203 Nov, Type 2 diabetes mellitus with diabetic chronic kidney disease E11.22 [facility] [id number] [place] [address] 17949- 1016 Nov, Chronic pain G89.29 and Dysthymic disorder F34.1 [facility] [id number] [place] [address] 11191- 4609 Nov, [place] [id number] [place] [address] 12087- 5692 Oct, HTN (hypertension) I10 ; Chronic pain G89.29 ; BMI 45.0-49.9 , adult Z68.42 ; Primary insomnia F51.01 ; Mixed hyperlipidemia E78.2 ; Dysthymic disorder F34.1 ; Type 2 diabetes mellitus with diabetic chronic kidney disease E11.22 ; Chronic congestive heart failure, unspecified congestive heart failure type I50.9 ; Acute non-recurrent maxillary sinusitis J01.00 and BMI 50.0-59.9, adult Z68.43 [place] [id number] [place] [address] 30062- 6752 17 Oct, 2017 HTN (hypertension) I10 and Dysthymic disorder F34.1 [place] [id number] [place] [address] 13372- 0039 Oct, [place] [id number] [place] [address] 09524- 5128 Oct, HTN (hypertension) I10 [place] [id number] [place] [address] 16504- 8974 Oct, Chronic pain G89.29 [place] [id number] [place] [address] 27410- 1814 Sep, [place] [id number] [place] [address] 18842- 7130 Sep, HTN (hypertension) I10 ; Chronic pain G89.29 ; BMI 45.0-49.9 , adult Z68.42 ; Primary insomnia F51.01 ; Mixed hyperlipidemia E78.2 ; Dysthymic disorder F34.1 and Type 2 diabetes mellitus with diabetic chronic kidney disease E11.22 [place] [id number] [place] [address] 86883- 5468 Sep, Chronic pain G89.29 [place] [id number] [place] [address] 52804- 6453 Sep, Acute on chronic heart failure, unspecified heart failure type I50.9 [place] [id number] [place] [address] 53651- 4121 Sep, Acute on chronic heart failure, unspecified heart failure type I50.9 ; Type 2 diabetes mellitus with diabetic chronic kidney disease E11.22 and BMI 50.0-59.9, adult Z68.43 [facility] [id number] [place] [address] 67072- 9705 Sep, Acute on chronic heart failure, unspecified heart failure type I50.9 ; HTN (hypertension) I10 and Type 2 diabetes mellitus with diabetic chronic kidney disease E11.22 [place] [id number] [place] [address] 02721- 4549 Aug, Acute on chronic heart failure, unspecified heart failure type I50.9 ; HTN (hypertension) I10 ; Type 2 diabetes mellitus with diabetic chronic kidney disease E11.22 ; Cellulitis of right lower extremity L03.115 and BMI 50.0-59.9, adult Z68.43 [facility] [id number] [place] [address] 70721 -9924 Aug, Acute upper respiratory infection, unspecified J06.9 ; Other viral agents as the cause of diseases classified elsewhere B97.89 ; Constipation, unspecified constipation type K59.00 ; BMI 50.0-59.9, adult Z68.43 and BMI 60.0-69.9, adult Z68.44 [place] [id number] [place] [address] 94705- 0856 Aug, Chronic pain G89.29 [place] [id number] [place] [address] 56682- 9799 Jul, Chronic pain G89.29 [place] [id number] [place] [address] 84308- 8745 Jul, Chronic pain G89.29 [place] [id number] [place] [address] 84397- 5567 Jun, Chronic pain G89.29 [place] [id number] [place] [address] 15756- 7911 Jun, [place] [id number] [place] [address] 56057- 9308 Jun, Chronic pain G89.29 [place] [id number] [place] [address] 73738- 1817 May, Chronic pain G89.29 and Type 2 diabetes mellitus with diabetic chronic kidney disease E11.22 [place] [id number] [place] [address] 36415- 8103 16 May, 2017 [place] [id number] [place] [address] 89015- 5157 May, Chronic pain G89.29 and Anxiety F41.9 [place] [id number] [place] [address] 62240- 3516 May, Type 2 diabetes mellitus with diabetic chronic kidney disease E11.22 ; Social phobia F40.10 ; Morbid obesity E66.01 ; Chronic pain G89.29 ; HTN (hypertension) I10 ; Degenerative disc disease at L5-S1 level M51.36 ; BPH (benign prostatic hyperplasia) N40.0 ; Pain in right knee M25.561 and 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 [place] [id number] [place] [address] 63249- 2619 Apr, Anxiety F41.9 [place] [id number] [place] [address] 73161- 6984 Apr, [place] [id number] [place] [address] 76458- 5168 Mar, [place] [id number] [place] [address] 10747- 9805 Mar, Edema, unspecified type R60.9 and Anxiety F41.9 [place] [id number] [place] [address] 22472- 8963 Mar, Social phobia F40.10 ; Mixed obsessional thoughts and acts F42.2 and Mild episode of recurrent major depressive disorder F33.0 [place] [id number] [place] [address] 04831- 0878 Mar, Degenerative disc disease at L5-S1 level M51.36 [place] [address] 83022- 2344 Mar, [place] [address] 81719- 3863 Mar, [place] [address] 20800- 8904 Mar, [place] [address] 24445- 2223 February, Morbid obesity E66.01 ; Anxiety F41.9 ; Degenerative disc disease at L5-S1 level M51.36 ; BPH (benign prostatic hyperplasia) N40.0 ; Social phobia F40.10 ; HTN (hypertension) I10 ; Edema, unspecified type R60.9 and Screening cholesterol level Z13.220 [place] [address] 93745- 5644 February, Social phobia, generalized F40.11 [place] [id number] [place] [address] 93277- 3529 February, Chronic pain G89.29 [place] [id number] [place] [address] 34525- 0562 February, [place] [id number] [place] [address] 74908- 9749 Jan, Chronic pain G89.29 [place] [id number] [place] [address] 27869- 3374 Jan, Panic disorder [episodic paroxysmal anxiety] without agoraphobia F41.0 [place] [id number] [place] [address] 67138- 3594 Dec, Morbid obesity E66.01 ; Anxiety F41.9 ; Chronic pain G89.29 ; HTN (hypertension) I10 ; BPH (benign prostatic hyperplasia) N40.0 ; Generalized edema R60.1 and Cough R05 [facility] [id number] [place] [address] 05472- 0936 14 Nov, 2016 Chronic pain G89.29 [facility] [id number] [place] [address] 88783- 7926 03 Nov, 2016 Social phobia, generalized F40.11 and Mild episode of recurrent major depressive disorder F33.0 [facility] [id number] [place] [address] 86684- 6756 Oct, Chronic pain G89.29 [facility] [id number] [place] [address] 11560 254 Oct, Social phobia, generalized F40.11 [facility] [id number] [place] [address] 66359- 7925 Sep, [facility] [id number] [place] [address] 88582 2548 Sep, [facility] [id number] [place] [address] 20437- 0492 Sep, [facility] [id number] [place] [address] 83740 254 Sep, [facility] [id number] [place] [address] 40905 2546 Sep, [facility] [id number] [place] [address] 05497 2548 Sep, Social phobia, generalized F40.11 and Mild episode of recurrent major depressive disorder F33.0 [facility] [id number] [place] [address] 69126- 2546 Sep, [facility] [id number] [place] [address] 44494- 0170 Aug, [facility] [address], [place] [address]- 2792 Aug, [facility] [id number] [place] [address] 98427- 4734 17 Aug, 2016 Bronchitis J40 [facility] [id number] [place] [address] 04668- 1386 15 Aug, 2016 [facility] [id number] [place] [address] 93659- 5380 10 Aug, 2016 Osteoarthritis of knee, unspecified M17.9 [facility] [id number] [place] [address] 70207- 5264 09 Aug, 2016 Morbid obesity E66.01 ; Chronic pain G89.29 ; Anxiety F41.9 ; Social phobia F40.10 ; HTN (hypertension) I10 ; Social phobia, generalized F40.11 ; Acute upper respiratory infection, unspecified J06.9 and Other viral agents as the cause of diseases classified elsewhere B97.89 [facility] [id number] [place] [address] 62285- 0460 Aug, Social phobia, generalized F40.11 and Dysthymic disorder F34.1 [facility] [id number] [place] [address] 53749- 1370 Jul, [facility] [address], [place] [address]- 5976 Jun, [facility] [id number] [place] [address] 18523- 9031 May, [facility] [id number] [place] [address] 96290- 2875 May, [facility] [id number] [place] [address] 53405- 4062 May, [facility] [id number] [place] [address] 09239- 6967 May, [facility] [id number] [place] [address] 46289- 0558 May, [facility] [address] [address]- 4248 May, [facility] [id number] [place] [address] 89967- 5757 May, [facility] [id number] [place] [address] 12506- 5090 Apr, [facility] [id number] [place] [address] 41315- 2710 Apr, Chondromalacia, right knee M94.261 [facility] [id number] [place] [address] 15933- 2915 Apr, Pain in unspecified hip M25.559 [place] [id number] [place] [address] 02652- 7102 Mar, Social phobia, unspecified F40.10 and Pain in unspecified hip M25.559 [facility] [id number] [place] [address] 23883- 7522 February, [facility] [id number] [place] [address] 94690- 6258 February, Social phobia F40.10 [place] [id number] [place] [address] 26939- 4170 February, Morbid obesity E66.01 ; Chronic pain G89.29 ; Social phobia F40.10 ; Pelvic pain in male R10.2 ; HTN (hypertension) I10 ; Degenerative disc disease at L5-S1 level M51.36 ; BPH (benign prostatic hyperplasia) N40.0 and Pain in right knee M25.561 [facility] [id number] [place] [address] 57692- 7509 Jan, [facility] [id number] [place] [address] 26371- 0925 Jan, [facility] [id number] [place] [address] 41201- 1920 Jan, [facility] [id number] [place] [address] 88353- 2189 Dec, [facility] [address] 94620- 9209 Dec, [facility] [address] 61186- 4363 Dec, [facility] [address] 39652 -7452 Nov, Strep pharyngitis J02.0 ; Influenza A J10.1 and Cough R05 [address] 84724- 7200 Nov, [facility] [address] 88108- 6301 Nov, [place] [address] 75899- 2567 Oct, HTN (hypertension) I10 ; Morbid obesity E66.01 ; Anxiety F41.9 ; Social phobia F40.10 ; Panic disorder F41.0 ; Degenerative disc disease at L5-S1 level M51.36 and Hypercholesterolemia E78.0 [facility] [id number] [place] [address] 10595- 3673 Oct, Panic disorder [episodic paroxysmal anxiety] without agoraphobia F41.0 and Social phobia, generalized F40.11 [place] [id number] [place] [address] 37831- 1473 Oct, [facility] [address] 22101- 4271 Sep, [facility] [id number] [place] [address] 45951- 3303 Sep, [facility] [address] 83046- 2839 Sep, [facility] [address], [place] [address]- 4375 Sep, [facility] [id number] [place] [address] 39118- 3911 Aug, [facility] [address] [address]- 1803 Aug, [facility] [id number] [place] [address] 34277- 0594 Aug, [facility] [id number] [place] [address] 90988- 4787 Aug, Social phobia F40.10 and Panic disorder F41.0 [facility] [id number] [place] [address] 93338- 0990 Aug, [facility] [id number] [place] [address] 02424- 7705 Aug, [facility] [id number] [place] [address] 94409- 5106 Aug, [facility] [id number] [place] [address] 50693- 8604 Aug, [facility] [address], [place] [address]- 3896 Jul, [facility] [id number] [place] [address] 83455- 6380 Jul, Morbid obesity E66.01 ; Chronic pain G89.29 ; Anxiety F41.9 ; Social phobia F40.10 ; Panic disorder F41.0 ; Pelvic pain in male R10.2 ; Insomnia G47.00 and HTN (hypertension) I10 [facility] [address] [address]- 6782 Jul, [facility] [address] [address]- 5413 Jul, [facility] [id number] [address]- 3744 16 Jun, 2015 Degenerative disc disease 722.6 [facility] [id number] [place] [address] 51228- 3593 Jun, Pain in joint, pelvic region and thigh 719.45 ; Morbid obesity 278.01 ; Essential hypertension, benign 401.1 and Constipation 564.00 [facility] [id number] [place] [address] 36265- 8636 May, [facility] [id number] [place] [address] 74598- 0268 May, [facility] [id number] [place] [address] 66960- 2537 May, [facility] [id number] [place] [address] 95843- 4425 May, [facility] [id number] [place] [address] 86703- 5483 May, [facility] [id number] [place] [address] 68995- 8797 May, [facility] [id number] [place] [address] 80238- 7507 May, Essential hypertension, benign 401.1 ; Anxiety state, unspecified 300.00 ; Panic disorder without agoraphobia 300.01 ; Social phobia 300.23 ; Morbid obesity 278.01 ; Other chronic pain 338.29 and Insomnia 780.52 [facility] [id number] [place] [address] 81935- 3526 May, Essential hypertension 401.9 [facility] [id number] [place] [address] 62522- 4220 May, Pain in joint, pelvic region and thigh 719.45 [facility] [id number] [place] [address] 84355- 9367 May, Essential hypertension, benign 401.1 [facility] [address] [place] [address]- 1018 May, Panic disorder without agoraphobia 300.01 and Social phobia 300.23 [facility] [id number] [address]- 6206 May, [facility] [address] [place] [address]- 1550 May, [facility] [id number] [place] [address] 81571- 3456 Apr, Chronic pain 338.29 [facility] [id number] [place] [address] 38582- 3191 Apr, [facility] [id number] [place] [address] 75745- 9692 Apr, [facility] [id number] [place] [address] 96364- 3977 Apr, [facility] [id number] [place] [address] 20813- 8121 Apr, [facility] [id number] [place] [address] 95574- 5405 Apr, [facility] [address] [address]- 2390 Apr, [facility] [address] [address]- 9022 Apr, [facility] [id number] [address] 4410 Apr, Essential hypertension, benign 401.1 ; Morbid obesity 278.01 ; Anxiety state, unspecified 300.00 ; Panic disorder without agoraphobia 300.01 ; Social phobia 300.23 and Chronic pain 338.29 [facility] [address] [address]- 4196 Mar, [facility] [id number] [address]- 4175 Mar, [facility] [address] [address]- 1902 Mar, [facility] [id number] [place] [address] 82936- 3720 Mar, [facility] [id number] [place] [address] 97990- 2407 Mar, Social phobia 300.23 and Panic disorder without agoraphobia 300.01 [facility] [id number] [place] [address] 72724- 1654 Mar, [facility] [id number] [place] [address] 02136- 1351 February, [facility] [id number] [place] [address] 91539- 2790 February, Major depression, recurrent 296.30 and No condition on Roche[place] II V71.09 [facility] [id number] [place] [address] 55760- 9692 February, [facility] [id number] [place] [address] 92878- 7247 February, Panic disorder without agoraphobia 300.01 ; Social phobia 300.23 and Morbid obesity 278.01 [facility] [address] [address]- 5216 Jan, [facility] [address] [address] Jan, [facility] [id number] [address] Dec, [facility] [id number] [place] [address] Dec, [facility] [id number] [address] Dec, [facility] [id number] [place] [address] Dec, [facility] [id number] [address] Dec, [facility] [id number] [address] Dec, [facility] [id number] [address] Dec, [facility] [id number] [address] Dec, [facility] [id number] [address] Dec, [facility] [id number] [address] Dec, [facility] [id number] [address] Dec, [facility] [id number] [address] Dec, [facility] [id number] [address] Dec, [facility] [id number] [address] Dec, [facility] [id number] [address] Dec, [facility] [id number] [address] Dec, IMMUNIZATIONS No Known Immunizations SOCIAL HISTORY Never Assessed REASON FOR VISIT MTM (Medication Therapy Management) PLAN OF CARE VITAL SIGNS MEDICATIONS Medication Instructions Dosage Frequency Start Date End Date Duration Status Pravastatin Sodium 10 mg Orally Once a day 1 tablet 24h Sep, 30 day(s) Active Losartan Potassium 50 mg Orally Once a day 1 tablet 24h Sep, 30 day(s) Active RESULTS No Results PROCEDURES No Known [...]
--- OUTSIDE RECORDS SUMMARY | 2018-11-30 17:41 | XMS REPORT ---
Author Author ROSE MARY BUCKNER [facility] Address [address] [place] [address] Care Team Providers Care Environmental Permitting Specialist Name Role Phone ISA BUCKNERTA Unavailable PROBLEMS Type Condition ICD9-CM Code [id number] Code Onset Dates Condition Status SNOMED Code Problem Type 2 diabetes mellitus with diabetic chronic kidney disease E11.22 Active 90401820 Problem Mixed hyperlipidemia E78.2 Active 357794533 Problem Primary insomnia F51.01 Active 7156750 Problem Major depressive disorder, recurrent, in full remission F33.42 Active 128903835 Problem Lymphedema I89.0 Active 223011596 Problem BMI 50.0-59.9, adult Z68.43 Active 478271275 Problem Constipation, unspecified constipation type K59.00 Active 24576259 Problem Chronic systolic congestive heart failure I50.22 Active 649243957 Problem Stasis dermatitis of both legs I87.2 Active 88377074 Problem Abnormal liver function test R94.5 Active 463280823 Problem Panic disorder F41.0 Active 342751666 Problem Controlled substance agreement terminated Z91.14 Active 764168701 Problem Cardiomegaly I51.7 Active 7741361 Problem Degenerative disc disease at L5-S1 level M51.36 Active 95791279 Problem BPH (benign prostatic hyperplasia) N40.0 Active 365084957 Problem Chronic pain G89.29 Active 89887175 Problem Dysthymic disorder F34.1 Active 62744710 Problem HTN (hypertension) I10 Active 18702846 Problem Mild episode of recurrent major depressive disorder F33.0 Active 677364139 ALLERGIES No Information ENCOUNTERS Encounter Location Date Diagnosis [facility] [address] [facility] [id number] [address] [address] Aug, [facility] [address] [facility] [id number] [address] Jul, [facility] [address] [address] [address] Jul, Type 2 diabetes mellitus with diabetic chronic kidney disease E11.22 [place] [address] [address]- 8811 Jul, Chronic systolic congestive heart failure I50.22 and Mixed hyperlipidemia E78.2 [place] [address] 85040- 7297 Jun, [place] [address] 11954- 2853 Jun, Type 2 diabetes mellitus with diabetic chronic kidney disease E11.22 [place] [address] 19642- 0060 Jun, Onychomycosis B35.1 ; Self-care deficit for hygiene R46.0 and Nail hypertrophy L60.2 [place] [address] 91542- 4497 Jun, Dental examination Z01.20 [place] [address] 22934- 9686 Jun, Tooth infection K04.7 ; BMI 40.0-44.9, adult Z68.41 and Mouth pain K13.79 [place] [address] [place] [id number] [place] [address] 95849- 8225 Jun, Type 2 diabetes mellitus with diabetic chronic kidney disease E11.22 [place] [address] 8[address]20- 4844 May, Degenerative disc disease at L5-S1 level M51.36 ; Chronic pain G89.29 and BMI 40.0-44.9, adult Z68.41 [place] [address] 50045- 4916 May, [place] [address] 24719- 6924 May, Type 2 diabetes mellitus with diabetic chronic kidney disease E11.22 [place] [address] [address] 70[address] May, [place] [address] [place] [id number] [place] [address] 87161- 2825 May, Degenerative disc disease at L5-S1 level M51.36 [place] [address] [place] [id number] [place] [address] 88468- 6928 May, [place] [address] [place] [id number] [place] [address] 30400- 0048 May, [place] [address] [place] [id number] [place] [address] 92381- 0877 May, [place] [address] [place] [id number] [place] [address] 88178- 5593 Apr, Type 2 diabetes mellitus with diabetic chronic kidney disease E11.22 ; Chronic pain G89.29 ; Major depressive disorder, recurrent, in full remission F33.42 ; HTN (hypertension) I10 ; Chronic systolic congestive heart failure I50.22 ; Mixed hyperlipidemia E78.2 and BMI 45.0-49.9, adult Z68.42 [place] [address] [place] [address] 77561- 3604 Apr, Type 2 diabetes mellitus with diabetic chronic kidney disease E11.22 [place] [address] [address] 285[address] 17 Apr, 2018 Medicare annual wellness visit, [...] vaccine Z28.21 and Encounter for immunization Z23 [place] [address] [place] [address] 83283- 5466 Apr, [place] [address] [place] [id number] [place] [address] 99443- 8910 Mar, Type 2 diabetes mellitus with diabetic chronic kidney disease E11.22 [place] [address] [place] [id number] [place] [address] 54598- 1993 Mar, Chronic pain G89.29 [place] [address] 38895- 3494 February, Chronic pain G89.29 ; Abnormal liver function test R94.5 and Degenerative disc disease at L5-S1 level M51.36 [place] [address] [place] [id number] [place] [address] 91851- 4181 Jan, [place] [address] [place] [id number] [place] [address] 60621- 1812 Jan, [place] [address] [place] [id number] [place] [address] 47340- 7442 Jan, [place] [id number] [place] [address] 88771- 1253 Jan, Abnormal liver function test R94.5 ; Dysthymic disorder F34.1 and Chronic pain G89.29 [place] [address] [place] [id number] [place] [address] 71985- 3120 Dec, [place] [id number] [place] [address] 45274- 0024 Dec, HTN (hypertension) I10 ; BMI 45.0-49.9, adult Z68.42 ; Chronic pain G89.29 ; Primary insomnia F51.01 ; Mixed hyperlipidemia E78.2 ; Dysthymic disorder F34.1 ; Type 2 diabetes mellitus with diabetic chronic kidney disease E11.22 ; Stasis dermatitis of both legs I87.2 and Chronic systolic congestive heart failure I50.22 [place] [id number] [place] [address] 68846- 4647 Dec, Chronic pain G89.29 [facility] [address] [address] Dec, Lymphedema I89.0 and Chronic systolic congestive heart failure I50.22 [facility] [address] [address] Dec, [place] [address] [place] [id number] [place] [address] 20126- 5309 Nov, Type 2 diabetes mellitus with diabetic chronic kidney disease E11.22 [place] [address] [place] [id number] [place] [address] 80606- 7347 Nov, Chronic pain G89.29 and Dysthymic disorder F34.1 [place] [address] [place] [id number] [place] [address] 80467- 0010 Nov, [place] [address] [place] [id number] [place] [address] 33675- 1146 Oct, HTN (hypertension) I10 ; Chronic pain G89.29 ; BMI 45.0-49.9 , adult Z68.42 ; Primary insomnia F51.01 ; Mixed hyperlipidemia E78.2 ; Dysthymic disorder F34.1 ; Type 2 diabetes mellitus with diabetic chronic kidney disease E11.22 ; Chronic congestive heart failure, unspecified congestive heart failure type I50.9 ; Acute non-recurrent maxillary sinusitis J01.00 and BMI 50.0-59.9, adult Z68.43 [place] [address] [address]- 8755 Oct, HTN (hypertension) I10 and Dysthymic disorder F34.1 [place] [address] [place] [id number] [place] [address] 48412- 6744 Oct, [place] [address] [place] [id number] [place] [address] 20511- 9283 Oct, HTN (hypertension) I10 [place] [address] [place] [id number] [place] [address] 60784- 3197 Oct, Chronic pain G89.29 [place] [address] [address]- 0846 Sep, [place] [address] [place] [address] 33515- 1854 Sep, HTN (hypertension) I10 ; Chronic pain G89.29 ; BMI 45.0-49.9 , adult Z68.42 ; Primary insomnia F51.01 ; Mixed hyperlipidemia E78.2 ; Dysthymic disorder F34.1 and Type 2 diabetes mellitus with diabetic chronic kidney disease E11.22 [place] [address] [address]- 0755 Sep, Chronic pain G89.29 [place] [address] [place] [id number] [place] [address] 51220- 1259 Sep, Acute on chronic heart failure, unspecified heart failure type I50.9 [place] [address] [place] [address] 16067- 0696 Sep, Acute on chronic heart failure, unspecified heart failure type I50.9 ; Type 2 diabetes mellitus with diabetic chronic kidney disease E11.22 and BMI 50.0-59.9, adult Z68.43 [place] [address] [address]- 9124 Sep, Acute on chronic heart failure, unspecified heart failure type I50.9 ; HTN (hypertension) I10 and Type 2 diabetes mellitus with diabetic chronic kidney disease E11.22 [place] [address] [address]- 6822 Aug, Acute on chronic heart failure, unspecified heart failure type I50.9 ; HTN (hypertension) I10 ; Type 2 diabetes mellitus with diabetic chronic kidney disease E11.22 ; Cellulitis of right lower extremity L03.115 and BMI 50.0-59.9, adult Z68.43 [facility] [address] [address] Aug, Acute upper respiratory infection, unspecified J06.9 ; Other viral agents as the cause of diseases classified elsewhere B97.89 ; Constipation, unspecified constipation type K59.00 ; BMI 50.0-59.9, adult Z68.43 and BMI 60.0-69.9, adult Z68.44 [place] [id number] [place] [address] 96231- 6133 Aug, Chronic pain G89.29 [place] [address] 48269- 4278 Jul, Chronic pain G89.[address] 17500- 3440 Jul, Chronic pain G89.29 [place] [address] [place] [id number] [place] [address] 55504- 5845 Jun, Chronic pain G89.[address] 20303- 4895 Jun, [address] 00329- 1794 Jun, Chronic pain G89.29 [place] [id number] [place] [address] 50938- 6364 May, Chronic pain G89.29 and Type 2 diabetes mellitus with diabetic chronic kidney disease E11.22 [place] [id number] [place] [address] 97597- 5080 16 May, [address] 32547- 9483 11 May, 2017 Chronic pain G89.29 and Anxiety F41.[address] 44734- 8998 10 May, 2017 Type 2 diabetes mellitus with diabetic chronic kidney disease E11.22 ; Social phobia F40.10 ; Morbid obesity E66.01 ; Chronic pain G89.29 ; HTN (hypertension) I10 ; Degenerative disc disease at L5-S1 level M51.36 ; BPH (benign prostatic hyperplasia) N40.0 ; Pain in right knee M25.561 and 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 [place] [address] [place] [id number] [place] [address] 82133- 2623 Apr, Anxiety F41.9 [place] [address] [place] [id number] [place] [address] 56710- 0050 Apr, [place] [address] 58302- 1961 Mar, [place] [address] 21767- 4609 Mar, Edema, unspecified type R60.9 and Anxiety F41.9 [place] [address] 50615- 5079 Mar, Social phobia F40.10 ; Mixed obsessional thoughts and acts F42.2 and Mild episode of recurrent major depressive disorder F33.0 [place] [address] [place] [id number] [place] [address] 15849- 7249 Mar, Degenerative disc disease at L5-S1 level M51.[address] 80680- 1704 Mar, [place] [address] [place] [id number] [place] [address] 76987- 6315 Mar, [place] [address] [place] [id number] [place] [address] 03594- 0327 Mar, [place] [id number] [place] [address] 88254- 3767 February, Morbid obesity E66.01 ; Anxiety F41.9 ; Degenerative disc disease at L5-S1 level M51.36 ; BPH (benign prostatic hyperplasia) N40.0 ; Social phobia F40.10 ; HTN (hypertension) I10 ; Edema, unspecified type R60.9 and Screening cholesterol level Z13.[address] 15362- 5101 February, Social phobia, generalized F40.11 [facility] [address] [place] [id number] [place] [address] 20245- 4907 February, Chronic pain G89.29 [facility] [address] [place] [id number] [place] [address] 00352- 0425 February, [facility] [address] [place] [id number] [place] [address] 50650- 1343 Jan, Chronic pain G89.29 [facility] [address] [place] [id number] [place] [address] 88770- 1818 Jan, Panic disorder [episodic paroxysmal anxiety] without agoraphobia F41.0 [place] [address] [place] [id number] [place] [address] 99913- 7441 Dec, Morbid obesity E66.01 ; Anxiety F41.9 ; Chronic pain G89.29 ; HTN (hypertension) I10 ; BPH (benign prostatic hyperplasia) N40.0 ; Generalized edema R60.1 and Cough R05 [place] [address] [place] [id number] [place] [address] 40122- 9928 14 Nov, 2016 Chronic pain G89.29 [place] [address] [place] [id number] [place] [address] 20189- 6605 Nov, Social phobia, generalized F40.11 and Mild episode of recurrent major depressive disorder F33.0 [place] [address] [place] [id number] [place] [address] 45751- 4086 Oct, Chronic pain G89.29 [facility] [address] [place] [id number] [place] [address] 95442- 4392 Oct, Social phobia, generalized F40.11 [place] [address] [place] [id number] [place] [address] 07662- 6189 Sep, [facility] [address] [place] [id number] [place] [address] 69358- 2276 Sep, [place] [address] [place] [id number] [place] [address] 44565- 4920 Sep, [facility] [address] [place] [id number] [place] [address] 10680- 3953 Sep, [facility] [address] [place] [id number] [place] [address] 46067- 1060 Sep, [facility] [address] 58054- 3663 Sep, Social phobia, generalized F40.11 and Mild episode of recurrent major depressive disorder F33.0 [facility] [address] [place] [id number] [place] [address] 17695- 8061 Sep, [place] [address] [place] [id number] [place] [address] 71687- 9436 29 Aug, 2016 [place] [address] [place] [id number] [place] [address] 44008- 8107 Aug, [facility] [address] [place] [id number] [place] [address] 04740- 6903 17 Aug, 2016 Bronchitis J40 [place] [address] [place] [id number] [place] [address] 18939- 2864 15 Aug, 2016 [facility] [address] [place] [id number] [place] [address] 53397- 9484 10 Aug, 2016 Osteoarthritis of knee, unspecified M17.9 [place] [address] [place] [id number] [place] [address] 95913- 6126 09 Aug, 2016 Morbid obesity E66.01 ; Chronic pain G89.29 ; Anxiety F41.9 ; Social phobia F40.10 ; HTN (hypertension) I10 ; Social phobia, generalized F40.11 ; Acute upper respiratory infection, unspecified J06.9 and Other viral agents as the cause of diseases classified elsewhere B97.89 [place] [address] [place] [address] 97063- 0036 08 Aug, 2016 Social phobia, generalized F40.11 and Dysthymic disorder F34.1 [place] [address] [facility] [id number] [place] [address]- 8015 Jul, [facility] [address] [facility] [id number] [place] [address]- 9659 Jun, [facility] [address] [facility] [id number] [place] [address]- 1091 May, [facility] [address] [facility] [id number] [place] [address]- 9728 May, [facility] [address] [facility] [id number] [place] [address]- 8355 May, [facility] [address] [facility] [id number] [place] [address], [place] [address]- 4005 May, [facility] [address] [place] [id number] [place] [address]- 4486 May, [facility] [address] [place] [id number] [place] [address]- 3542 May, [facility] [address] [facility] [id number] [place] [address]- 8232 May, [facility] [address] [place] [id number] [address]- 8778 Apr, [facility] [address] [address]- 1804 Apr, Chondromalacia, right knee M94.261 [facility] [address] [facility] [id number] [address]- 1528 Apr, Pain in unspecified hip M25.559 [facility] [address] [place] [id number] [address]- 1208 Mar, Social phobia, unspecified F40.10 and Pain in unspecified hip M25.559 [facility] [address] [place] [id number] [address]- 8248 February, [facility] [address] [place] [id number] [place] [address] 31676- 1754 February, Social phobia F40.10 [place] [address] 61074- 4491 February, Morbid obesity E66.01 ; Chronic pain G89.29 ; Social phobia F40.10 ; Pelvic pain in male R10.2 ; HTN (hypertension) I10 ; Degenerative disc disease at L5-S1 level M51.36 ; BPH (benign prostatic hyperplasia) N40.0 and Pain in right knee M25.561 [facility] [address] 91530- 1570 14 Jan, 2016 [place] [address] 42985- 2397 13 Jan, 2016 [place] [address] 51226- 6262 Jan, [facility] [address] 07349- 4643 Dec, [facility] [address] 08358- 5077 Dec, [place] [address] 43657- 9327 Dec, [facility] [address] [place] [id number] [place] [address] 00447 -9277 Nov, Strep pharyngitis J02.0 ; Influenza A J10.1 and Cough R05 [facility] [address] [place] [id number] [place] [address] 26057- 3725 Nov, [facility] [address] 47183- 5732 Nov, [facility] [address] [place] [id number] [place] [address] 27662- 0180 Oct, HTN (hypertension) I10 ; Morbid obesity E66.01 ; Anxiety F41.9 ; Social phobia F40.10 ; Panic disorder F41.0 ; Degenerative disc disease at L5-S1 level M51.36 and Hypercholesterolemia E78.0 [facility] [address] [place] [id number] [place] [address] 46994- 1778 Oct, Panic disorder [episodic paroxysmal anxiety] without agoraphobia F41.0 and Social phobia, generalized F40.11 [facility] [address] [place] [id number] [place] [address] 46577- 8955 Oct, [facility] [address] 08388- 8425 Sep, [facility] [address] 45047- 6020 Sep, [facility] [address] [place] [id number] [place] [address] 40361- 4533 Sep, [facility] [address] 94805- 2080 Sep, [facility] [address] [place] [id number] [place] [address] 23587- 7935 Aug, [facility] [address] [place] [id number] [place] [address] 75139- 3442 Aug, [facility] [address] [place] [id number] [place] [address] 97440- 2150 Aug, [facility] [address] [place] [id number] [place] [address] 20883- 1063 Aug, Social phobia F40.10 and Panic disorder F41.0 [facility] [address] [place] [id number] [place] [address] 20478- 4834 Aug, [facility] [address] [place] [id number] [place] [address] 73632- 1600 Aug, [facility] [address] [place] [id number] [place] [address] 34312- 6887 Aug, [facility] [address] [place] [id number] [place] [address] 87915- 5049 Aug, [facility] [id number] [place] [address] 27950- 4696 Jul, [facility] [address] [place] [id number] [place] [address] 16842- 4012 Jul, Morbid obesity E66.01 ; Chronic pain G89.29 ; Anxiety F41.9 ; Social phobia F40.10 ; Panic disorder F41.0 ; Pelvic pain in male R10.2 ; Insomnia G47.00 and HTN (hypertension) I10 [facility] [address] [place] [id number] [place] [address] 92778- 1252 Jul, [facility] [address] [place] [id number] [place] [address] 46729- 6523 Jul, [facility] [address] [place] [id number] [place] [address] 84673- 7513 Jun, Degenerative disc disease 722.6 [facility] [address] [place] [id number] [place] [address] 76673- 3778 Jun, Pain in joint, pelvic region and thigh 719.45 ; Morbid obesity 278.01 ; Essential hypertension, benign 401.1 and Constipation 564.00 [facility] [id number] [place] [address] 58531- 2110 May, [facility] [id number] [place] [address] 43994- 5600 May, [facility] [address] [place] [id number] [place] [address] 17021- 3469 May, [facility] [address] [place] [id number] [place] [address] 59212- 2163 May, [facility] [id number] [place] [address] 49685- 4805 May, [facility] [id number] [place] [address] [phone]- 1610 May, [facility] [id number] [address] May, Essential hypertension, benign 401.1 ; Anxiety state, unspecified 300.00 ; Panic disorder without agoraphobia 300.01 ; Social phobia 300.23 ; Morbid obesity 278.01 ; Other chronic pain 338.29 and Insomnia 780.52 [facility] [id number] [place] [address] 16477- 6031 May, Essential hypertension 401.9 [facility] [id number] [place] [address] 62290- 0088 May, Pain in joint, pelvic region and thigh 719.45 [facility] [id number] [place] [address] 02974- 0972 May, Essential hypertension, benign 401.1 [facility] [id number] [place] [address] 27027- 5187 May, Panic disorder without agoraphobia 300.01 and Social phobia 300.23 [facility] [id number] [place] [address] 99402- 4009 May, [facility] [id number] [place] [address] 85109- 5652 May, [facility] [id number] [place] [address] 41786- 9401 Apr, Chronic pain 338.29 [facility] [id number] [place] [address] 31902- 1736 Apr, [facility] [id number] [place] [address] 68325- 3262 Apr, [facility] [id number] [place] [address] 88146- 4001 Apr, [facility] [id number] [place] [address] 35508- 9235 Apr, [facility] [id number] [place] [address] 13034- 6110 Apr, [facility] [facility] [id number] [address] Apr, [facility] [id number] [address] Apr, [facility] [address] [address] Apr, Essential hypertension, benign 401.1 ; Morbid obesity 278.01 ; Anxiety state, unspecified 300.00 ; Panic disorder without agoraphobia 300.01 ; Social phobia 300.23 and Chronic pain 338.29 [facility] [id number] [place] [address] Mar, [facility] [id number] [place] [address]- [address]206 Mar, [facility] [id number] [place] [address]- [address] Mar, [facility] [id number] [address] Mar, [facility] [id number] [place] [address]- [address] Mar, Social phobia 300.23 and Panic disorder without agoraphobia 300.01 [facility] [address] [address] Mar, [facility] [id number] [address] February, [facility] [address] [address] February, Major depression, recurrent 296.30 and No condition on [place] II V71.09 [facility] [address] [address] February, [facility] [id number] [place] [address]- [address]228 February, Panic disorder without agoraphobia 300.01 ; Social phobia 300.23 and Morbid obesity 278.01 [facility] [address] [address] 14 Jan, 2015 [facility] [id number] [address] Jan, [facility] [id number] [place] [address]- [address]952 Dec, [facility] [id number] [place] [address]- [address] Dec, [facility] [id number] [place] [address]- 6142 Dec, [facility] [id number] [address] Dec, [facility] [id number] [place] [address]- 0974 Dec, [facility] [id number] [address] Dec, [facility] [id number] [address] Dec, [facility] [id number] [address] Dec, [facility] [id number] [address] Dec, [facility] [id number] [address] Dec, [facility] [id number] [address] [address] Dec, [facility] [id number] [address] Dec, [facility] [id number] Dec, [facility] [address] [facility] [id number] [place] [address] [address] Dec, [facility] [address] [facility] [id number] [place] [address]- [address] Dec, [facility] [address] [facility] [id number] [place] [address] Dec, IMMUNIZATIONS No Known Immunizations SOCIAL HISTORY Never Assessed REASON FOR VISIT Corrected script PLAN OF CARE VITAL SIGNS MEDICATIONS Medication Instructions Dosage Frequency Start Date End Date Duration Status Accu-Chek FastClix Lancets - subcutaneously 3 times [...]
--- OUTSIDE RECORDS SUMMARY | 2018-11-30 17:42 | XMS REPORT ---
Author Author ORESTES WATTS Organization [facility] Address [address] [place] [address] Care Team Providers Care Interior Plant Caretaker Name Role Phone ORESTES WATTS Unavailable PROBLEMS Type Condition ICD9-CM Code [id number] Code Onset Dates Condition Status SNOMED Code Problem Type 2 diabetes mellitus with diabetic chronic kidney disease E11.22 Active 43339623 Problem Mixed hyperlipidemia E78.2 Active 079069258 Problem Primary insomnia F51.01 Active 3902038 Problem Major depressive disorder, recurrent, in full remission F33.42 Active 402171966 Problem Lymphedema I89.0 Active 865081098 Problem BMI 50.0-59.9, adult Z68.43 Active 219569807 Problem Constipation, unspecified constipation type K59.00 Active 86186954 Problem Chronic systolic congestive heart failure I50.22 Active 328612082 Problem Stasis dermatitis of both legs I87.2 Active 68078291 Problem Abnormal liver function test R94.5 Active 503035633 Problem Panic disorder F41.0 Active 762966591 Problem Controlled substance agreement terminated Z91.14 Active 901168003 Problem Cardiomegaly I51.7 Active 0539576 Problem Degenerative disc disease at L5-S1 level M51.36 Active 82363779 Problem BPH (benign prostatic hyperplasia) N40.0 Active 355828394 Problem Chronic pain G89.29 Active 47828339 Problem Dysthymic disorder F34.1 Active 76822963 Problem HTN (hypertension) I10 Active 57146380 Problem Mild episode of recurrent major depressive disorder F33.0 Active 526375997 ALLERGIES Substance Reaction Event Type Date Status Wellbutrin Unknown Non Drug Allergy Jun, Active ENCOUNTERS Encounter Location Date Diagnosis [facility] [address] [facility] [id number] [address] Aug, [facility] [address] [facility] [id number], [place] [address] Jul, Type 2 diabetes mellitus with diabetic chronic kidney disease E11.22 [place] [address] [place] [id number] [place] [address] 65923- 3058 Jul, Chronic systolic congestive heart failure I50.22 and Mixed hyperlipidemia E78.2 [place] [address] [place] [id number] [place] [address] 09804- 1823 Jun, [place] [address] [address]- [address] Jun, Type 2 diabetes mellitus with diabetic chronic kidney disease E11.22 [place] [address] 12288- 8005 Jun, Onychomycosis B35.1 ; Self-care deficit for hygiene R46.0 and Nail hypertrophy L60.2 [place] [address] [address]- 2014 Jun, Dental examination Z01.20 [place] [address] 38286- 0300 Jun, Tooth infection K04.7 ; BMI 40.0-44.9, adult Z68.41 and Mouth pain K13.79 [place] [address] [id number] [place] [address] 45774- 8131 Jun, Type 2 diabetes mellitus with diabetic chronic kidney disease E11.22 [place] [id number] [place] [address] 84953- 4949 May, Degenerative disc disease at L5-S1 level M51.36 ; Chronic pain G89.29 and BMI 40.0-44.9, adult Z68.41 [place] [address] [id number] [place] [address] 47541- 9043 May, [place] [address] 81192- 4414 May, Type 2 diabetes mellitus with diabetic chronic kidney disease E11.22 [place] [address] 06354- 9154 May, [place] [address] [place] [id number], [place] [address] 8[address] May, Degenerative disc disease at L5-S1 level M51.36 [place] [address], [place] [address] 17 May, 2018 [place] [address], [place] [address] 1117 May, [place] [id number] [place] [address] 46117- 8366 May, [place] [id number] [place] [address] 94000- 2934 Apr, Type 2 diabetes mellitus with diabetic chronic kidney disease E11.22 ; Chronic pain G89.29 ; Major depressive disorder, recurrent, in full remission F33.42 ; HTN (hypertension) I10 ; Chronic systolic congestive heart failure I50.22 ; Mixed hyperlipidemia E78.2 and BMI 45.0-49.9, adult Z68.[id number] [place] [address] 09212- 4711 Apr, Type 2 diabetes mellitus with diabetic chronic kidney disease E11.[address] [place] [address] 67570- 7683 17 Apr, 2018 Medicare annual wellness visit, [...] vaccine Z28.21 and Encounter for immunization Z23 [id number] [place] [address] 20807- 8741 Apr, [place] [id number] [place] [address] 69410- 6541 Mar, Type 2 diabetes mellitus with diabetic chronic kidney disease E11.22 [place] [address] [id number] [place] [address] 47367- 2777 Mar, Chronic pain G89.29 [place] [id number] [place] [address] 92013- 9398 February, Chronic pain G89.29 ; Abnormal liver function test R94.5 and Degenerative disc disease at L5-S1 level M51.36 [place] [id number] [place] [address] 02442- 7330 Jan, [place] [id number] [place] [address] 92118- 2343 Jan, [place] [id number] [place] [address] 27121- 4948 Jan, [place] [id number] [place] [address] 04429- 3743 Jan, Abnormal liver function test R94.5 ; Dysthymic disorder F34.1 and Chronic pain G89.29 [place] [id number] [place] [address] 22844- 6084 Dec, [place] [id number] [place] [address] 74983- 6475 Dec, HTN (hypertension) I10 ; BMI 45.0-49.9, adult Z68.42 ; Chronic pain G89.29 ; Primary insomnia F51.01 ; Mixed hyperlipidemia E78.2 ; Dysthymic disorder F34.1 ; Type 2 diabetes mellitus with diabetic chronic kidney disease E11.22 ; Stasis dermatitis of both legs I87.2 and Chronic systolic congestive heart failure I50.22 [place] [address], [place] [address] 1001 Dec, Chronic pain G89.29 [facility] [address], [place] [address] 04 Dec, 2017 Lymphedema I89.0 and Chronic systolic congestive heart failure I50.22 [place] [id number] [address] 1309 Dec, [place] [id number] [place] [address] 39611- 1227 Nov, Type 2 diabetes mellitus with diabetic chronic kidney disease E11.22 [place] [id number] [place] [address] 96277- 9665 Nov, Chronic pain G89.29 and Dysthymic disorder F34.1 [place] [id number] [place] [address] 71268- 9275 Nov, [place] [id number] [place] [address] 20221- 0547 Oct, HTN (hypertension) I10 ; Chronic pain G89.29 ; BMI 45.0-49.9 , adult Z68.42 ; Primary insomnia F51.01 ; Mixed hyperlipidemia E78.2 ; Dysthymic disorder F34.1 ; Type 2 diabetes mellitus with diabetic chronic kidney disease E11.22 ; Chronic congestive heart failure, unspecified congestive heart failure type I50.9 ; Acute non-recurrent maxillary sinusitis J01.00 and BMI 50.0-59.9, adult Z68.43 [place] [address], [place] [address] 5987 Oct, HTN (hypertension) I10 and Dysthymic disorder F34.1 [place] [address], [place] [address]- 3303 Oct, [place] [id number] [place] [address] 39996- 7206 Oct, HTN (hypertension) I10 [place] [id number] [place] [address] 77951- 5918 Oct, Chronic pain G89.29 [place] [address], [place] [address]- 8595 Sep, [place] [id number] [place] [address] 94226- 8082 Sep, HTN (hypertension) I10 ; Chronic pain G89.29 ; BMI 45.0-49.9 , adult Z68.42 ; Primary insomnia F51.01 ; Mixed hyperlipidemia E78.2 ; Dysthymic disorder F34.1 and Type 2 diabetes mellitus with diabetic chronic kidney disease E11.22 [place] [id number] [place] [address] 00483- 8450 Sep, Chronic pain G89.29 [place] [id number] [place] [address] 56373- 1850 Sep, Acute on chronic heart failure, unspecified heart failure type I50.9 [place] [id number] [place] [address] 44800- 5851 Sep, Acute on chronic heart failure, unspecified heart failure type I50.9 ; Type 2 diabetes mellitus with diabetic chronic kidney disease E11.22 and BMI 50.0-59.9, adult Z68.43 [place] [id number] [place] [address] 84655- 0928 Sep, Acute on chronic heart failure, unspecified heart failure type I50.9 ; HTN (hypertension) I10 and Type 2 diabetes mellitus with diabetic chronic kidney disease E11.22 [place] [id number] [place] [address] 16195- 4900 Aug, Acute on chronic heart failure, unspecified heart failure type I50.9 ; HTN (hypertension) I10 ; Type 2 diabetes mellitus with diabetic chronic kidney disease E11.22 ; Cellulitis of right lower extremity L03.115 and BMI 50.0-59.9, adult Z68.43 [facility] [address], [place] [address] Aug, Acute upper respiratory infection, unspecified J06.9 ; Other viral agents as the cause of diseases classified elsewhere B97.89 ; Constipation, unspecified constipation type K59.00 ; BMI 50.0-59.9, adult Z68.43 and BMI 60.0-69.9, adult Z68.44 [place] [id number] [place] [address] 42619- 2730 Aug, Chronic pain G89.29 [place] [address] 26242- 2227 Jul, Chronic pain G89.29 [place] [address] 41910- 5211 Jul, Chronic pain G89.29 [place] [address] [place] [address]- 7013 Jun, Chronic pain G89.29 [place] [id number] [place] [address] 35535- 5374 Jun, [place] [address] 50144- 4428 Jun, Chronic pain G89.29 [place] [address] 31544- 4696 May, Chronic pain G89.29 and Type 2 diabetes mellitus with diabetic chronic kidney disease E11.22 [place] [id number] [place] [address] 70908- 1904 16 May, 2017 [place] [address] 37396- 7132 May, Chronic pain G89.29 and Anxiety F41.9 [place] [id number] [place] [address] 34378- 0519 May, Type 2 diabetes mellitus with diabetic chronic kidney disease E11.22 ; Social phobia F40.10 ; Morbid obesity E66.01 ; Chronic pain G89.29 ; HTN (hypertension) I10 ; Degenerative disc disease at L5-S1 level M51.36 ; BPH (benign prostatic hyperplasia) N40.0 ; Pain in right knee M25.561 and 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 [place] [address], [place] [address]- 3470 Apr, Anxiety F41.9 [place] [id number] [place] [address] 76784- 9528 Apr, [place] [id number] [place] [address] 00655- 1178 Mar, [place] [id number] [place] [address] 57081- 5171 Mar, Edema, unspecified type R60.9 and Anxiety F41.9 [place] [id number] [place] [address] 45050- 3359 Mar, Social phobia F40.10 ; Mixed obsessional thoughts and acts F42.2 and Mild episode of recurrent major depressive disorder F33.0 [place] [id number] [place] [address] 46083- 5832 Mar, Degenerative disc disease at L5-S1 level M51.36 [place] [address] [id number] [place] [address] 49482- 6549 Mar, [place] [id number] [place] [address] 95625- 7956 Mar, [place] [id number] [place] [address] 87163- 5068 Mar, [place] [id number] [place] [address] 24266- 2062 February, Morbid obesity E66.01 ; Anxiety F41.9 ; Degenerative disc disease at L5-S1 level M51.36 ; BPH (benign prostatic hyperplasia) N40.0 ; Social phobia F40.10 ; HTN (hypertension) I10 ; Edema, unspecified type R60.9 and Screening cholesterol level Z13.220 [place] [address] [place] [address] 56720- 6574 February, Social phobia, generalized F40.11 [facility] [id number] [place] [address] 88069- 8742 February, Chronic pain G89.29 [facility] [id number] [place] [address] 32669- 3333 February, [place] [id number] [place] [address] 21249- 5824 Jan, Chronic pain G89.29 [place] [address] 51296- 5018 Jan, Panic disorder [episodic paroxysmal anxiety] without agoraphobia F41.0 [place] [address] 46877- 2552 Dec, Morbid obesity E66.01 ; Anxiety F41.9 ; Chronic pain G89.29 ; HTN (hypertension) I10 ; BPH (benign prostatic hyperplasia) N40.0 ; Generalized edema R60.1 and Cough R05 [place] [id number] [place] [address] 61893- 1551 14 Nov, 2016 Chronic pain G89.29 [place] [address] [id number] [place] [address] 66631- 0946 03 Nov, 2016 Social phobia, generalized F40.11 and Mild episode of recurrent major depressive disorder F33.0 [place] [address] [id number] [place] [address] 38485- 3075 Oct, Chronic pain G89.29 [place] [id number] [place] [address] 84728- 4492 Oct, Social phobia, generalized F40.11 [place] [address] 78842- 7048 Sep, [place] [id number] [place] [address] 68676- 8787 Sep, [place] [address] 59169- 9994 Sep, [facility] [address], [place] [address]- 9154 Sep, [facility] [id number] [place] [address] 13416- 3382 Sep, [facility] [id number] [place] [address] 64318- 0244 Sep, Social phobia, generalized F40.11 and Mild episode of recurrent major depressive disorder F33.0 [facility] [id number] [place] [address] 41318- 9515 Sep, [facility] [id number] [place] [address] 81508- 7691 Aug, [facility] [id number] [place] [address] 00445- 0587 Aug, [place] [id number] [place] [address] 80202- 2725 Aug, Bronchitis J40 [place] [id number] [place] [address] 65285- 3597 Aug, [facility] [id number] [place] [address] 43822- 4126 Aug, Osteoarthritis of knee, unspecified M17.9 [place] [id number] [place] [address] 09487- 1366 09 Aug, 2016 Morbid obesity E66.01 ; Chronic pain G89.29 ; Anxiety F41.9 ; Social phobia F40.10 ; HTN (hypertension) I10 ; Social phobia, generalized F40.11 ; Acute upper respiratory infection, unspecified J06.9 and Other viral agents as the cause of diseases classified elsewhere B97.89 [place] [address] [place] [address] 98160- 4873 08 Aug, 2016 Social phobia, generalized F40.11 and Dysthymic disorder F34.1 [place] [address] [id number] [place] [address] 39424- 2547 Jul, [facility] [address] [facility] [id number], [place] [address]- 0983 Jun, [facility] [address] [facility] [id number], [place] [address]- 7012 May, [facility] [address] [facility] [id number] [place] [address]- 1768 May, [facility] [address] [facility] [id number], [place] [address]- 9545 May, [facility] [address] [facility] [id number] [place] [address]- 5330 May, [facility] [address] [facility] [id number], [place] [address]- 7340 May, [facility] [address] [facility] [id number], [place] [address]- 9256 May, [facility] [address] [facility] [id number], [place] [address]- 1324 May, [facility] [address] [facility] [id number], [place] [address]- 9062 Apr, [facility] [address] [address] [id number] [address]- 0497 Apr, Chondromalacia, right knee M94.261 [facility] [address] [id number], [place] [address]- 9942 Apr, Pain in unspecified hip M25.559 [facility] [address] [facility] [id number], [place] [address]- 0107 Mar, Social phobia, unspecified F40.10 and Pain in unspecified hip M25.559 [facility] [address] [facility] [id number], [place] [address]- 4811 February, [facility] [address] [facility] [id number], [place] [address]- 8552 February, Social phobia F40.10 [facility] [address] [place] [address] 19112- 7663 February, Morbid obesity E66.01 ; Chronic pain G89.29 ; Social phobia F40.10 ; Pelvic pain in male R10.2 ; HTN (hypertension) I10 ; Degenerative disc disease at L5-S1 level M51.36 ; BPH (benign prostatic hyperplasia) N40.0 and Pain in right knee M25.561 [facility] [id number] [place] [address] 78207- 9368 14 Jan, 2016 [facility] [id number] [place] [address] 70325- 9970 Jan, [facility] [id number] [place] [address] 87778- 9754 Jan, [facility] [id number] [place] [address] 69186- 0349 Dec, [facility] [id number] [place] [address] 44463- 4322 Dec, [facility] [id number] [place] [address] 28032- 6636 Dec, [facility] [id number] [place] [address] 54783 -6472 Nov, Strep pharyngitis J02.0 ; Influenza A J10.1 and Cough R05 [facility] [id number] [place] [address] 97618- 1845 Nov, [facility] [id number] [place] [address] 74682- 0042 Nov, [facility] [id number] [place] [address] 51376- 3516 Oct, HTN (hypertension) I10 ; Morbid obesity E66.01 ; Anxiety F41.9 ; Social phobia F40.10 ; Panic disorder F41.0 ; Degenerative disc disease at L5-S1 level M51.36 and Hypercholesterolemia E78.0 [facility] [id number] [place] [address] 26130- 3269 Oct, Panic disorder [episodic paroxysmal anxiety] without agoraphobia F41.0 and Social phobia, generalized F40.11 [facility] [id number] [place] [address] 45206- 8950 Oct, [facility] [address] 11334- 1807 Sep, [facility] [id number] [place] [address] 98016- 0550 Sep, [facility] [address] 55555- 2215 Sep, [facility] [id number] [place] [address] 34826- 9197 Sep, [facility] [id number] [place] [address] 99268- 1530 Aug, [facility] [id number] [place] [address] 02264- 7943 Aug, [facility] [id number] [place] [address] 06014- 8133 Aug, [facility] [id number] [place] [address] 52090- 4168 Aug, Social phobia F40.10 and Panic disorder F41.0 [facility] [id number] [place] [address] 57338- 2339 Aug, [facility] [id number] [place] [address] 87632- 7971 Aug, [facility] [id number] [place] [address] 94857- 9355 Aug, [facility] [id number] [place] [address] 60823- 7622 Aug, [facility] [id number] [place] [address] 88228- 9926 Jul, [facility] [address] 76159- 9933 06 Jul, 2015 Morbid obesity E66.01 ; Chronic pain G89.29 ; Anxiety F41.9 ; Social phobia F40.10 ; Panic disorder F41.0 ; Pelvic pain in male R10.2 ; Insomnia G47.00 and HTN (hypertension) I10 [facility] [address] 95718- 2803 Jul, [facility] [address] 17427- 5846 Jul, [facility] [id number] [place] [address] 37273- 0951 16 Jun, 2015 Degenerative disc disease 722.6 [facility] [address] 80298- 6406 Jun, Pain in joint, pelvic region and thigh 719.45 ; Morbid obesity 278.01 ; Essential hypertension, benign 401.1 and Constipation 564.00 [facility] [id number] [place] [address] 88984- 1550 May, [facility] [id number] [place] [address] 96486- 3625 May, [facility] [id number] [place] [address] 40409- 6380 May, [facility] [id number] [place] [address] 01720- 9078 May, [facility] [address] 85716- 8511 May, [facility] [id number] [place] [address] 11230- 6465 May, [facility] [address] 87854- 3177 May, Essential hypertension, benign 401.1 ; Anxiety state, unspecified 300.00 ; Panic disorder without agoraphobia 300.01 ; Social phobia 300.23 ; Morbid obesity 278.01 ; Other chronic pain 338.29 and Insomnia 780.52 [facility] [id number] [place] [address] 72060- 5425 May, Essential hypertension 401.9 [facility] [address] [address]- [address] May, Pain in joint, pelvic region and thigh 719.45 [facility] [id number] [place] [address] 23430- 3731 May, Essential hypertension, benign 401.1 [facility] [id number] [place] [address] 78893- 7462 May, Panic disorder without agoraphobia 300.01 and Social phobia 300.23 [facility] [id number] [place] [address] 73726- 7562 May, [facility] [id number] [place] [address] 96830- 4503 May, [facility] [id number] [place] [address] 51288- 3028 Apr, Chronic pain 338.29 [facility] [id number] [place] [address] [id number]- 6894 Apr, [facility] [id number] [place] [address] 19995- 6434 Apr, [facility] [id number] [place] [address] [id number]- 9641 Apr, [facility] [id number] [place] [address] [id number]- 5556 Apr, [facility] [id number] [place] [address] [id number]- 2379 Apr, [facility] [address] [place] [address]- [address] Apr, [facility] [id number] [place] [address] 15630- 0518 Apr, [facility] [id number] [place] [address] [id number]- 0730 Apr, Essential hypertension, benign 401.1 ; Morbid obesity 278.01 ; Anxiety state, unspecified 300.00 ; Panic disorder without agoraphobia 300.01 ; Social phobia 300.23 and Chronic pain 338.29 [facility] [id number] [place] [address] [id number]- 6114 Mar, [facility] [id number] [place] [address] 46194- 7497 Mar, [facility] [id number] [place] [address] 47415- 9932 Mar, [facility] [id number] [place] [address] 60106- 8097 Mar, [facility] [id number] [place] [address] 54181- 1228 Mar, Social phobia 300.23 and Panic disorder without agoraphobia 300.01 [facility] [id number] [place] [address] 39868- 6009 Mar, [facility] [id number] [place] [address] 48803- 4968 February, [facility] [id number] [place] [address] 88342- 6685 February, Major depression, recurrent 296.30 and No condition on [place] II V71.09 [facility] [id number] [place] [address] 44623- 5266 February, [facility] [id number] [place] [address] 45415- 3297 February, Panic disorder without agoraphobia 300.01 ; Social phobia 300.23 and Morbid obesity 278.01 [facility] [place] [facility] [address] [id number] [place] [address] 14 Jan, 2015 [facility] [place] [facility] [address] [id number] [place] [address] 12[address] Jan, [facility] [place] [facility] [address] [id number] [place] [address]28 27 Dec, 2014 [facility] [place] [facility] [address] [id number] [place] [address] 1743 Dec, [facility] [place] [facility] [address] [id number] [place] [address] 5184 Dec, [facility] [place] [facility] [address] [id number] [place] [address] 3417 Dec, [facility] [place] [facility] [address] [id number] [place] [address]- 9064 Dec, [facility] [place] [facility] [address] [id number], [place] [address] Dec, [facility] [place] [facility] [address] [id number] [place] [address] 6359 Dec, [facility] [place] [facility] [address] [facility] [id number], [place] [address] Dec, [facility] [place] [facility] [address] [id number], [place] [address]76 Dec, [facility] [place] [facility] [address] [id number], [place] [address]5 Dec, [facility] [place] [facility] [address] [id number] [place] [address]- 2926 Dec, [facility] [place] [facility] [address] [id number], [place] [address] 9484 Dec, [facility] [place] [facility] [address] [facility] [id number], [place] [address]367 Dec, [facility] [place] [facility] [address] [id number], [place] [address] 9256 Dec, [facility] [address] [facility] [id number] [place] [address]70 Dec, [facility] [address] [facility] [id number], [place] [address]77 Dec, IMMUNIZATIONS No Known Immunizations SOCIAL HISTORY Never Assessed REASON FOR VISIT Toe nail trim/eval CBrumbackRN PLAN OF CARE Activity Details Future/Pending Procedure TRIM NAIL(S) VITAL SIGNS Height 73 in 2018-07-18 Weight 333.0 lbs 2018-07-18 Temperature 98.0 degrees Fahrenheit 2018-07-18 Heart Rate 92 bpm 2018-07-18 Respiratory Rate 20 2018-07-18 BMI 43.93 kg/m2 2018-07-18 Blood pressure systolic 110 mmHg 2018-07-18 Blood pressure diastolic 66 mmHg 2018-07-18 MEDICATIONS Medication Instructions Dosage Frequency Start Date End Date Duration Status Lisinopril 20 MG Orally Once a day 1 tablet 24h Active Lift Chair/Recliner use to assist with position changes- sitting to standing May, Active Blood Glucose Monitor System w/Device as directed Active Lasix 80 MG Orally Once a day 2 tablets 24h Active Potassium Chloride Kristen ER 20 MEQ TAKE TWO (2) TABLETS BY MOUTH ONCE DAILY Active Metoprolol Succinate ER 100 MG TAKE ONE TABLET BY MOUTH ONCE DAILY Active Blood Glucose Test - as directed Active Levemir FlexTouch 100 UNIT/ML Subcutaneous Once a day Inject 10 units 24h Active Pen Amboy 31G X 8 MM as directed Jan, Active Spironolactone 25 MG Orally Once a day 1 tablet 24h 30 Active Accu-Chek FastClix Lancets - subcutaneously 3 times a day to test blood sugars 8h Jun, Active Pravastatin Sodium 10 MG TAKE ONE TABLET BY MOUTH ONCE DAILY Active ReliOn Pen [place] 31G/8MM USE DIRECTED Active RESULTS No Results PROCEDURES Procedure Date Ordered Result Body Site TRIM NAIL(S) Jul 18, 2018 [facility] VISIT ESTABLISHED PATIENT Jul 18, 2018 INSTRUCTIONS MEDICATIONS ADMINISTERED No Known Medications [...]
--- OUTSIDE RECORDS SUMMARY | 2018-11-30 17:42 | XMS REPORT ---
Author Author [facility] Address [address] [place] [address] Care Team Providers Care Local Government Legislator Name Role Phone ISA BUCKNERTA Unavailable PROBLEMS Type Condition ICD9-CM Code LIQ68-HQ Code Onset Dates Condition Status SNOMED Code Problem Type 2 diabetes mellitus with diabetic chronic kidney disease E11.22 Active 96374265 Problem Mixed hyperlipidemia E78.2 Active 079439739 Problem Primary insomnia F51.01 Active 5970308 Problem Major depressive disorder, recurrent, in full remission F33.42 Active 272412822 Problem Lymphedema I89.0 Active 881296033 Problem BMI 50.0-59.9, adult Z68.43 Active 208879595 Problem Constipation, unspecified constipation type K59.00 Active 01518679 Problem Chronic systolic congestive heart failure I50.22 Active 776877230 Problem Stasis dermatitis of both legs I87.2 Active 74013490 Problem Abnormal liver function test R94.5 Active 523991934 Problem Panic disorder F41.0 Active 010803986 Problem Controlled substance agreement terminated Z91.14 Active 480175176 Problem Cardiomegaly I51.7 Active 9711640 Problem Degenerative disc disease at L5-S1 level M51.36 Active 31487295 Problem BPH (benign prostatic hyperplasia) N40.0 Active 030959362 Problem Chronic pain G89.29 Active 25704962 Problem Dysthymic disorder F34.1 Active 16689275 Problem HTN (hypertension) I10 Active 70690265 Problem Mild episode of recurrent major depressive disorder F33.0 Active 859999891 ALLERGIES No Information ENCOUNTERS Encounter Location Date Diagnosis [facility] [address] [facility] [id number] [address] Aug, [facility] [address] [facility] [id number] [address] Jul, Type 2 diabetes mellitus with diabetic chronic kidney disease E11.22 [place] [address] [id number] [place] [address] 41899- 4327 Jul, Chronic systolic congestive heart failure I50.22 and Mixed hyperlipidemia E78.2 [place] [id number] [place] [address] 24411- 6396 Jun, [place] [address] 02895- 4132 Jun, Type 2 diabetes mellitus with diabetic chronic kidney disease E11.22 [place] [address] 50717- 2385 Jun, Onychomycosis B35.1 ; Self-care deficit for hygiene R46.0 and Nail hypertrophy L60.2 [place] [id number] [place] [address] 88377- 0249 Jun, Dental examination Z01.[address] [address]10- 2022 Jun, Tooth infection K04.7 ; BMI 40.0-44.9, adult Z68.41 and Mouth pain K13.[address] 00373- 7403 Jun, Type 2 diabetes mellitus with diabetic chronic kidney disease E11.22 [place] [id number] [place] [address] 49081- 4504 May, Degenerative disc disease at L5-S1 level M51.36 ; Chronic pain G89.29 and BMI 40.0-44.9, adult Z68.41 [place] [id number] [place] [address] 34398- 5860 May, [place] [id number] [place] [address] 21970- 1098 May, Type 2 diabetes mellitus with diabetic chronic kidney disease E11.22 [place] [address] [id number] [place] [address] 84312- 7184 May, [place] [address] [address] 8696 20 May, 2018 Degenerative disc disease at L5-S1 level M51.36 [place] [address] [address] 7048 May, [place] [id number] [place] [address] 48417- 6227 May, [place] [id number] [place] [address] 57772- 6566 May, [place] [id number] [place] [address] 96135- 1438 Apr, Type 2 diabetes mellitus with diabetic chronic kidney disease E11.22 ; Chronic pain G89.29 ; Major depressive disorder, recurrent, in full remission F33.42 ; HTN (hypertension) I10 ; Chronic systolic congestive heart failure I50.22 ; Mixed hyperlipidemia E78.2 and BMI 45.0-49.9, adult Z68.42 [address] [address] 20[address] Apr, Type 2 diabetes mellitus with diabetic chronic kidney disease E11.22 [place] [id number] [place] [address] 13651- 5464 Apr, Medicare annual wellness visit, initial Z00.00 [...] vaccine Z28.21 and Encounter for immunization Z23 [address] [place] [address] 33091- 8096 Apr, [place] [id number] [place] [address] 44805- 7626 Mar, Type 2 diabetes mellitus with diabetic chronic kidney disease E11.22 [place] [address] [id number] [place] [address] 53533- 1148 Mar, Chronic pain G89.29 [place] [address] [id number] [place] [address] 88647- 4872 February, Chronic pain G89.29 ; Abnormal liver function test R94.5 and Degenerative disc disease at L5-S1 level M51.36 [place] [id number] [place] [address] 89955- 9905 Jan, [place] [address] [id number] [place] [address] 99104- 2593 Jan, [place] [address] [id number] [place] [address] 79714- 7853 Jan, [place] [address] [id number] [place] [address] 16664- 7117 Jan, Abnormal liver function test R94.5 ; Dysthymic disorder F34.1 and Chronic pain G89.29 [place] [id number] [place] [address] 63459- 0794 Dec, [place] [address] [id number] [place] [address] 43071- 5189 Dec, HTN (hypertension) I10 ; BMI 45.0-49.9, adult Z68.42 ; Chronic pain G89.29 ; Primary insomnia F51.01 ; Mixed hyperlipidemia E78.2 ; Dysthymic disorder F34.1 ; Type 2 diabetes mellitus with diabetic chronic kidney disease E11.22 ; Stasis dermatitis of both legs I87.2 and Chronic systolic congestive heart failure I50.22 [facility] [id number] [place] [address] 70680- 1738 Dec, Chronic pain G89.29 [facility] [id number] [place] [address] 48813 -2130 Dec, Lymphedema I89.0 and Chronic systolic congestive heart failure I50.22 [place] [address] [place] [address] 13896- 3232 Dec, [place] [id number] [place] [address] 64527- 1413 Nov, Type 2 diabetes mellitus with diabetic chronic kidney disease E11.22 [place] [id number] [place] [address] 29322- 1972 12 Nov, 2017 Chronic pain G89.29 and Dysthymic disorder F34.1 [place] [address] [id number] [place] [address] 23736- 8649 Nov, [place] [id number] [place] [address] 77172- 6371 Oct, HTN (hypertension) I10 ; Chronic pain G89.29 ; BMI 45.0-49.9 , adult Z68.42 ; Primary insomnia F51.01 ; Mixed hyperlipidemia E78.2 ; Dysthymic disorder F34.1 ; Type 2 diabetes mellitus with diabetic chronic kidney disease E11.22 ; Chronic congestive heart failure, unspecified congestive heart failure type I50.9 ; Acute non-recurrent maxillary sinusitis J01.00 and BMI 50.0-59.9, adult Z68.43 [place] [address] [place] [address] 51868- 6759 Oct, HTN (hypertension) I10 and Dysthymic disorder F34.1 [place] [address] [address]- 0707 Oct, [place] [address] [id number] [place] [address] 92998- 7766 Oct, HTN (hypertension) I10 [place] [address] [place] [address] 80256- 1004 Oct, Chronic pain G89.29 [place] [id number] [place] [address] 62691- 7119 Sep, [facility] [id number] [place] [address] 06303- 7688 Sep, HTN (hypertension) I10 ; Chronic pain G89.29 ; BMI 45.0-49.9 , adult Z68.42 ; Primary insomnia F51.01 ; Mixed hyperlipidemia E78.2 ; Dysthymic disorder F34.1 and Type 2 diabetes mellitus with diabetic chronic kidney disease E11.22 [place] [id number] [place] [address] 59499- 6374 Sep, Chronic pain G89.29 [place] [id number] [place] [address] 76821- 3844 Sep, Acute on chronic heart failure, unspecified heart failure type I50.9 [place] [id number] [place] [address] 95510- 5184 Sep, Acute on chronic heart failure, unspecified heart failure type I50.9 ; Type 2 diabetes mellitus with diabetic chronic kidney disease E11.22 and BMI 50.0-59.9, adult Z68.43 [place] [id number] [place] [address] 15280- 4497 Sep, Acute on chronic heart failure, unspecified heart failure type I50.9 ; HTN (hypertension) I10 and Type 2 diabetes mellitus with diabetic chronic kidney disease E11.22 [place] [address] [place] [address] 75847- 9941 Aug, Acute on chronic heart failure, unspecified heart failure type I50.9 ; HTN (hypertension) I10 ; Type 2 diabetes mellitus with diabetic chronic kidney disease E11.22 ; Cellulitis of right lower extremity L03.115 and BMI 50.0-59.9, adult Z68.43 [facility] [id number] [place] [address] 49001 -2886 Aug, Acute upper respiratory infection, unspecified J06.9 ; Other viral agents as the cause of diseases classified elsewhere B97.89 ; Constipation, unspecified constipation type K59.00 ; BMI 50.0-59.9, adult Z68.43 and BMI 60.0-69.9, adult Z68.44 [place] [id number] [place] [address] 23997- 7231 Aug, Chronic pain G89.29 [place] [address] [id number] [place] [address] 80269- 6089 Jul, Chronic pain G89.29 [place] [address] 23964- 6082 Jul, Chronic pain G89.29 [place] [address] 67414- 2674 Jun, Chronic pain G89.29 [place] [address] [id number] [place] [address] 15268- 3677 Jun, [place] [address] 89005- 2821 Jun, Chronic pain G89.29 [place] [address] [id number] [place] [address] 68860- 0185 May, Chronic pain G89.29 and Type 2 diabetes mellitus with diabetic chronic kidney disease E11.22 [place] [address] [id number] [place] [address] 51544- 0997 16 May, 2017 [place] [address] [id number] [place] [address] 03993- 0754 May, Chronic pain G89.29 and Anxiety F41.9 [place] [id number] [place] [address] 65819- 3913 May, Type 2 diabetes mellitus with diabetic chronic kidney disease E11.22 ; Social phobia F40.10 ; Morbid obesity E66.01 ; Chronic pain G89.29 ; HTN (hypertension) I10 ; Degenerative disc disease at L5-S1 level M51.36 ; BPH (benign prostatic hyperplasia) N40.0 ; Pain in right knee M25.561 and 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 [place] [id number] [place] [address] 82790- 3519 Apr, Anxiety F41.9 [place] [address] [address] [id number] [place] [address] 85929- 3642 Apr, [facility] [address] [id number] [place] [address] 46852- 3947 Mar, [place] [address] 46661- 1524 Mar, Edema, unspecified type R60.9 and Anxiety F41.9 [place] [id number] [place] [address] 65153- 2976 Mar, Social phobia F40.10 ; Mixed obsessional thoughts and acts F42.2 and Mild episode of recurrent major depressive disorder F33.0 [place] [address] [id number] [place] [address] 88850- 8649 Mar, Degenerative disc disease at L5-S1 level M51.36 [place] [address] [id number] [place] [address] 75892- 6438 Mar, [place] [address] [id number] [place] [address] 89771- 9185 Mar, [place] [address] [id number] [place] [address] 61536- 1784 Mar, [place] [address] [address] [id number] [place] [address] 67253- 9744 February, Morbid obesity E66.01 ; Anxiety F41.9 ; Degenerative disc disease at L5-S1 level M51.36 ; BPH (benign prostatic hyperplasia) N40.0 ; Social phobia F40.10 ; HTN (hypertension) I10 ; Edema, unspecified type R60.9 and Screening cholesterol level Z13.220 [place] [address] [address] [id number] [place] [address] 55654- 6953 February, Social phobia, generalized F40.11 [place] [address] [id number] [place] [address] 65883- 4153 February, Chronic pain G89.29 [facility] [address] [place] [id number] [place] [address] 02558- 6558 February, [facility] [address] [place] [id number] [place] [address] 98925- 5861 Jan, Chronic pain G89.29 [facility] [address] [place] [id number] [place] [address] 08862- 9530 04 Jan, 2017 Panic disorder [episodic paroxysmal anxiety] without agoraphobia F41.0 [place] [address] [id number] [place] [address] 79039- 0302 13 Dec, 2016 Morbid obesity E66.01 ; Anxiety F41.9 ; Chronic pain G89.29 ; HTN (hypertension) I10 ; BPH (benign prostatic hyperplasia) N40.0 ; Generalized edema R60.1 and Cough R05 [place] [id number] [place] [address] 11855- 1385 14 Nov, 2016 Chronic pain G89.29 [place] [address] [id number] [place] [address] 52116- 3890 03 Nov, 2016 Social phobia, generalized F40.11 and Mild episode of recurrent major depressive disorder F33.0 [place] [address] [id number] [place] [address] 28191- 4310 Oct, Chronic pain G89.29 [place] [address] [id number] [place] [address] 81006- 8488 Oct, Social phobia, generalized F40.11 [place] [address] [id number] [place] [address] 68108- 6602 Sep, [place] [address] [id number] [place] [address] 46164- 1095 Sep, [place] [id number] [place] [address] 38160- 2779 Sep, [place] [address] [place] [id number] [place] [address] 60797- 7098 Sep, [facility] [address] [place] [id number] [place] [address] 59354- 0148 Sep, [facility] [address] [place] [id number] [place] [address] 66005- 8800 16 Sep, 2016 Social phobia, generalized F40.11 and Mild episode of recurrent major depressive disorder F33.0 [place] [address] [id number] [place] [address] 31933- 1632 08 Sep, 2016 [place] [address] [id number] [place] [address] 98651- 2292 Aug, [place] [address] [id number] [place] [address] 54417- 4322 Aug, [place] [address] 92575- 1637 17 Aug, 2016 Bronchitis J40 [place] [address] [id number] [place] [address] 55852- 3011 15 Aug, 2016 [place] [address] [id number] [place] [address] 86205- 6948 10 Aug, 2016 Osteoarthritis of knee, unspecified M17.9 [place] [address] [id number] [place] [address] 30002- 7835 09 Aug, 2016 Morbid obesity E66.01 ; Chronic pain G89.29 ; Anxiety F41.9 ; Social phobia F40.10 ; HTN (hypertension) I10 ; Social phobia, generalized F40.11 ; Acute upper respiratory infection, unspecified J06.9 and Other viral agents as the cause of diseases classified elsewhere B97.89 [place] [address] [id number] [place] [address] 41399- 3101 08 Aug, 2016 Social phobia, generalized F40.11 and Dysthymic disorder F34.1 [place] [id number] [place] [address] 32636- 0975 Jul, [place] [address] [id number] [place] [address]- 1505 Jun, [facility] [address] [facility] [id number] [place] [address]- 7655 May, [facility] [address] [facility] [id number] [place] [address]- 1739 May, [facility] [address] [facility] [id number] [place] [address]- 3810 May, [facility] [address] [facility] [id number] [place] [address]- 6541 May, [facility] [address] [facility] [id number] [place] [address]- 1258 May, [facility] [address] [facility] [id number] [place] [address]- 5395 May, [facility] [address] [place] [id number] [place] [address]- 8296 May, [facility] [address] [facility] [id number] [place] [address]- 7933 Apr, [facility] [address] [place] [id number] [place] [address]- 2490 Apr, Chondromalacia, right knee M94.261 [facility] [address] [place] [id number] [address]- 2721 Apr, Pain in unspecified hip M25.559 [facility] [address] [facility] [id number] [address]- 7383 Mar, Social phobia, unspecified F40.10 and Pain in unspecified hip M25.559 [facility] [address] [facility] [id number] [place] [address]- 2947 February, [facility] [address] [place] [id number] [place] [address]- 5765 February, Social phobia F40.10 [facility] [id number] [place] [address] 01712- 2012 February, Morbid obesity E66.01 ; Chronic pain G89.29 ; Social phobia F40.10 ; Pelvic pain in male R10.2 ; HTN (hypertension) I10 ; Degenerative disc disease at L5-S1 level M51.36 ; BPH (benign prostatic hyperplasia) N40.0 and Pain in right knee M25.561 [place] [address] 29798- 0645 14 Jan, 2016 [facility] [address] 31438- 2688 Jan, [place] [address] 80151- 3548 Jan, [place] [address] 17958- 0051 Dec, [place] [address] [id number] [place] [address] 00643- 8967 Dec, [place] [id number] [place] [address] 18943- 7629 Dec, [facility] [place] [id number] [place] [address] 14109 -0164 Nov, Strep pharyngitis J02.0 ; Influenza A J10.1 and Cough R05 [place] [id number] [place] [address] 12125- 3717 Nov, [facility] [id number] [place] [address] 55422- 6813 Nov, [address] 39587- 7285 Oct, HTN (hypertension) I10 ; Morbid obesity E66.01 ; Anxiety F41.9 ; Social phobia F40.10 ; Panic disorder F41.0 ; Degenerative disc disease at L5-S1 level M51.36 and Hypercholesterolemia E78.0 [place] [id number] [place] [address] 86261- 0302 Oct, Panic disorder [episodic paroxysmal anxiety] without agoraphobia F41.0 and Social phobia, generalized F40.11 [facility] [address] [id number] [address]- 2148 Oct, [facility] [id number] [place] [address] 35765- 1392 Sep, [facility] [id number] [place] [address] 36150- 6184 Sep, [facility] [address] [id number] [place] [address] 88444- 6795 Sep, [facility] [id number] [place] [address] 39425- 4811 Sep, [facility] [id number] [place] [address] 29968- 7410 Aug, [facility] [id number] [place] [address] 84289- 8446 Aug, [facility] [id number] [place] [address] 17246- 8473 Aug, [facility] [id number] [place] [address] 52652- 7908 Aug, Social phobia F40.10 and Panic disorder F41.0 [facility] [id number] [place] [address] 37835- 1962 Aug, [facility] [address] [place] [address] 80925- 7362 Aug, [facility] [id number] [place] [address] 14166- 8445 Aug, [facility] [id number] [place] [address] 75677- 6841 Aug, [facility] [address] [id number] [place] [address] 19447- 4243 Jul, [facility] [id number] [place] [address] 73111- 2473 Jul, Morbid obesity E66.01 ; Chronic pain G89.29 ; Anxiety F41.9 ; Social phobia F40.10 ; Panic disorder F41.0 ; Pelvic pain in male R10.2 ; Insomnia G47.00 and HTN (hypertension) I10 [facility] [id number] [place] [address] 58555- 8101 Jul, [facility] [id number] [place] [address] 70776- 1428 Jul, [facility] [id number] [place] [address] 25869- 2678 Jun, Degenerative disc disease 722.6 [facility] [id number] [place] [address] 93059- 7243 Jun, Pain in joint, pelvic region and thigh 719.45 ; Morbid obesity 278.01 ; Essential hypertension, benign 401.1 and Constipation 564.00 [facility] [id number] [place] [address] 58842- 9913 May, [facility] [id number] [place] [address] 95456- 4135 May, [facility] [id number] [place] [address] 31384- 6808 May, [facility] [id number] [place] [address] 35991- 3826 May, [facility] [id number] [place] [address] 32931- 7202 May, [facility] [id number] [place] [address] 14432- 9983 May, [facility] [id number] [place] [address] 98141- 7536 May, Essential hypertension, benign 401.1 ; Anxiety state, unspecified 300.00 ; Panic disorder without agoraphobia 300.01 ; Social phobia 300.23 ; Morbid obesity 278.01 ; Other chronic pain 338.29 and Insomnia 780.52 [facility] [id number] [place] [address] 15336- 1092 May, Essential hypertension 401.9 [facility] [id number] [place] [address] 62839- 0603 May, Pain in joint, pelvic region and thigh 719.45 [facility] [id number] [place] [address] 54935- 5343 May, Essential hypertension, benign 401.1 [facility] [id number] [place] [address] 55603- 3636 May, Panic disorder without agoraphobia 300.01 and Social phobia 300.23 [facility] [id number] [place] [address] 21878- 9909 May, [facility] [id number] [place] [address] 40853- 8000 May, [facility] [id number] [place] [address] 75038- 6512 Apr, Chronic pain 338.29 [facility] [id number] [place] [address] 78418- 1378 Apr, [facility] [id number] [place] [address] 88936- 1895 Apr, [facility] [id number] [place] [address] 65203- 8220 Apr, [facility] [id number] [place] [address] 40062- 8158 Apr, [facility] [id number] [place] [address] 50928- 6586 Apr, [facility] [id number] [place] [address] 20693- 1618 Apr, [facility] [id number] [address] Apr, [facility] [id number] [address]78 Apr, Essential hypertension, benign 401.1 ; Morbid obesity 278.01 ; Anxiety state, unspecified 300.00 ; Panic disorder without agoraphobia 300.01 ; Social phobia 300.23 and Chronic pain 338.29 [facility] [id number] [address] 6548 Mar, [facility] [id number] [place] [address] Mar, [facility] [id number] [place] [address]- [address] Mar, [facility] [id number] [place] [address]- [address] Mar, [facility] [id number] [place] [address]- [address] Mar, Social phobia 300.23 and Panic disorder without agoraphobia 300.01 [facility] [id number] [address] Mar, [facility] [id number] [address] February, [facility] [id number] [address] February, Major depression, recurrent 296.30 and No condition on [place] II V71.09 [facility] [id number] [address] February, [facility] [id number] [address] February, Panic disorder without agoraphobia 300.01 ; Social phobia 300.23 and Morbid obesity 278.01 [facility] [id number] [place] [address] 14 Jan, 2015 [facility] [place] [facility] [address] [id number] [place] [address] 13 Jan, 2015 [facility] [place] [facility] [address] [id number] [place] [address] 27 Dec, 2014 [facility] [place] [facility] [address] [id number] [place] [address] Dec, [facility] [place] [facility] [address] [id number] [place] [address] Dec, [facility] [place] [facility] [address] [id number] [place] [address] 25 Dec, 2014 [facility] [place] [facility] [address] [id number] [place] [address] Dec, [facility] [place] [facility] [address] [id number] [place] [address] Dec, [facility] [place] [facility] [address] [id number] [place] [address] Dec, [facility] [place] [facility] [address] [id number] [place] [address] 25 Dec, 2014 [facility] [place] [facility] [address] [id number] [place] [address] Dec, [facility] [place] [facility] [address] [id number] [place] [address] Dec, [facility] [place] [facility] [address] [id number] [place] [address] 13 Dec, 2014 [facility] [place] [facility] [address] [id number] [place] [address] 13 Dec, 2014 [facility] [place] [facility] [address] [id number] [place] [address]- [address]992 13 Dec, 2014 [facility] [place] [facility] [address] [id number] [place] [address] Dec, [facility] [address] [facility] [id number] [place] [address] Dec, [facility] [address] [facility] [id number] [place] [address] Dec, IMMUNIZATIONS No Known Immunizations SOCIAL HISTORY Never Assessed REASON FOR VISIT Refill request PLAN OF CARE VITAL SIGNS MEDICATIONS Medication Instructions Dosage Frequency Start Date End Date Duration Status Pravastatin Sodium 10 mg Orally 1 and 3 TAKE ONE TABLET BY MOUTH ONCE DAILY 30 days Active Potassium Chloride Kristen ER 20 meq Orally Once a day TAKE TWO -2 TABLETS BY MOUTH ONCE DAILY 24h 30 days Active RESULTS No Results PROCEDURES [...]
--- OUTSIDE RECORDS SUMMARY | 2018-11-30 17:43 | XMS REPORT ---
Author Author ROSE MARY [facility] Address [address] [place] [address] Care Team Providers Care Maitre D' Name Role Phone ISA BUCKNERTA Unavailable PROBLEMS Type Condition ICD9-CM Code KGH12-TU Code Onset Dates Condition Status SNOMED Code Problem Type 2 diabetes mellitus with diabetic chronic kidney disease E11.22 Active 66348751 Problem Mixed hyperlipidemia E78.2 Active 165000865 Problem Primary insomnia F51.01 Active 1380459 Problem Major depressive disorder, recurrent, in full remission F33.42 Active 306935972 Problem Lymphedema I89.0 Active 382977366 Problem BMI 50.0-59.9, adult Z68.43 Active 561379601 Problem Constipation, unspecified constipation type K59.00 Active 25067606 Problem Chronic systolic congestive heart failure I50.22 Active 429121491 Problem Stasis dermatitis of both legs I87.2 Active 32601826 Problem Abnormal liver function test R94.5 Active 712553537 Problem Panic disorder F41.0 Active 516327577 Problem Controlled substance agreement terminated Z91.14 Active 297675030 Problem Cardiomegaly I51.7 Active 7819338 Problem Degenerative disc disease at L5-S1 level M51.36 Active 26803931 Problem BPH (benign prostatic hyperplasia) N40.0 Active 000172934 Problem Chronic pain G89.29 Active 00200021 Problem Dysthymic disorder F34.1 Active 95739145 Problem HTN (hypertension) I10 Active 90356387 Problem Mild episode of recurrent major depressive disorder F33.0 Active 800398907 ALLERGIES No Information ENCOUNTERS Encounter Location Date Diagnosis [facility] [address] [facility] [id number] [address] Aug, [facility] [address] [facility] [id number], [place] [address] Jul, Type 2 diabetes mellitus with diabetic chronic kidney disease E11.22 [place] [address] [place] [id number] [place] [address] 15015- 0601 Jul, Chronic systolic congestive heart failure I50.22 and Mixed hyperlipidemia E78.2 [facility] [address] [place] [id number] [place] [address] 71518- 9375 Jun, [place] [address] 55713- 3565 Jun, Type 2 diabetes mellitus with diabetic chronic kidney disease E11.22 [place] [address] 33397- 3674 Jun, Onychomycosis B35.1 ; Self-care deficit for hygiene R46.0 and Nail hypertrophy L60.2 [place] [id number] [place] [address] 76777- 8721 Jun, Dental examination Z01.[address] 18119- 3541 Jun, Tooth infection K04.7 ; BMI 40.0-44.9, adult Z68.41 and Mouth pain K13.[address] 20420- 3708 Jun, Type 2 diabetes mellitus with diabetic chronic kidney disease E11.22 [place] [id number] [place] [address] 37527- 7767 May, Degenerative disc disease at L5-S1 level M51.36 ; Chronic pain G89.29 and BMI 40.0-44.9, adult Z68.41 [place] [id number] [place] [address] 30553- 9184 May, [place] [id number] [place] [address] 60684- 6545 May, Type 2 diabetes mellitus with diabetic chronic kidney disease E11.22 [facility] [id number] [place] [address] 17356- 1287 May, [place] [address] [address] 9357 20 May, 2018 Degenerative disc disease at L5-S1 level M51.36 [facility] [address] [address] 2521 May, [place] [id number] [place] [address] 48509- 7283 May, [facility] [address] [id number] [place] [address] 85121- 4644 May, [place] [id number] [place] [address] 01048- 2691 Apr, Type 2 diabetes mellitus with diabetic chronic kidney disease E11.22 ; Chronic pain G89.29 ; Major depressive disorder, recurrent, in full remission F33.42 ; HTN (hypertension) I10 ; Chronic systolic congestive heart failure I50.22 ; Mixed hyperlipidemia E78.2 and BMI 45.0-49.9, adult Z68.42 [address] [address] 8719 Apr, Type 2 diabetes mellitus with diabetic chronic kidney disease E11.22 [place] [id number] [place] [address] 68102- 3274 Apr, Medicare annual wellness visit, initial Z00.00 [...] vaccine Z28.21 and Encounter for immunization Z23 [id number] [place] [address] 42495- 5946 Apr, [place] [id number] [place] [address] 75477- 2486 Mar, Type 2 diabetes mellitus with diabetic chronic kidney disease E11.22 [facility] [id number] [place] [address] 59799- 8967 Mar, Chronic pain G89.29 [place] [id number] [place] [address] 79603- 8316 February, Chronic pain G89.29 ; Abnormal liver function test R94.5 and Degenerative disc disease at L5-S1 level M51.36 [place] [id number] [place] [address] 71516- 2313 Jan, [place] [id number] [place] [address] 41309- 7590 Jan, [place] [id number] [place] [address] 10297- 0195 Jan, [place] [id number] [place] [address] 51770- 4768 Jan, Abnormal liver function test R94.5 ; Dysthymic disorder F34.1 and Chronic pain G89.29 [facility] [id number] [place] [address] 75095- 3626 Dec, [place] [id number] [place] [address] 31218- 5942 Dec, HTN (hypertension) I10 ; BMI 45.0-49.9, adult Z68.42 ; Chronic pain G89.29 ; Primary insomnia F51.01 ; Mixed hyperlipidemia E78.2 ; Dysthymic disorder F34.1 ; Type 2 diabetes mellitus with diabetic chronic kidney disease E11.22 ; Stasis dermatitis of both legs I87.2 and Chronic systolic congestive heart failure I50.22 [facility] [id number] [place] [address] 85777- 7094 Dec, Chronic pain G89.29 [facility] WALK IN [facility] [id number] [place] [address] 06988 -0166 Dec, Lymphedema I89.0 and Chronic systolic congestive heart failure I50.22 [place] [id number] [place] [address] 56938- 7968 Dec, [place] [id number] [place] [address] 26223- 6097 Nov, Type 2 diabetes mellitus with diabetic chronic kidney disease E11.22 [facility] [id number] [place] [address] 64438- 5425 12 Nov, 2017 Chronic pain G89.29 and Dysthymic disorder F34.1 [place] [id number] [place] [address] 09283- 5121 Nov, [place] [id number] [place] [address] 35096- 3577 Oct, HTN (hypertension) I10 ; Chronic pain G89.29 ; BMI 45.0-49.9 , adult Z68.42 ; Primary insomnia F51.01 ; Mixed hyperlipidemia E78.2 ; Dysthymic disorder F34.1 ; Type 2 diabetes mellitus with diabetic chronic kidney disease E11.22 ; Chronic congestive heart failure, unspecified congestive heart failure type I50.9 ; Acute non-recurrent maxillary sinusitis J01.00 and BMI 50.0-59.9, adult Z68.43 [place] [id number] [place] [address] 03420- 9589 Oct, HTN (hypertension) I10 and Dysthymic disorder F34.1 [place] [address] [address]- 6820 Oct, [place] [id number] [place] [address] 57391- 5115 Oct, HTN (hypertension) I10 [place] [id number] [place] [address] 55754- 4469 Oct, Chronic pain G89.29 [facility] [id number] [place] [address] 19522- 8615 Sep, [facility] [id number] [place] [address] 31567- 6653 Sep, HTN (hypertension) I10 ; Chronic pain G89.29 ; BMI 45.0-49.9 , adult Z68.42 ; Primary insomnia F51.01 ; Mixed hyperlipidemia E78.2 ; Dysthymic disorder F34.1 and Type 2 diabetes mellitus with diabetic chronic kidney disease E11.22 [place] [id number] [place] [address] 75143- 0190 Sep, Chronic pain G89.29 [facility] [id number] [place] [address] 45156- 0399 Sep, Acute on chronic heart failure, unspecified heart failure type I50.9 [facility] [id number] [place] [address] 15811- 1174 Sep, Acute on chronic heart failure, unspecified heart failure type I50.9 ; Type 2 diabetes mellitus with diabetic chronic kidney disease E11.22 and BMI 50.0-59.9, adult Z68.43 [facility] [id number] [place] [address] 05301- 0011 Sep, Acute on chronic heart failure, unspecified heart failure type I50.9 ; HTN (hypertension) I10 and Type 2 diabetes mellitus with diabetic chronic kidney disease E11.22 [place] [id number] [place] [address] 65683- 6551 Aug, Acute on chronic heart failure, unspecified heart failure type I50.9 ; HTN (hypertension) I10 ; Type 2 diabetes mellitus with diabetic chronic kidney disease E11.22 ; Cellulitis of right lower extremity L03.115 and BMI 50.0-59.9, adult Z68.43 [facility] WALK IN [facility] [id number] [place] [address] 67852 -2838 Aug, Acute upper respiratory infection, unspecified J06.9 ; Other viral agents as the cause of diseases classified elsewhere B97.89 ; Constipation, unspecified constipation type K59.00 ; BMI 50.0-59.9, adult Z68.43 and BMI 60.0-69.9, adult Z68.44 [place] [id number] [place] [address] 24802- 3030 Aug, Chronic pain G89.29 [facility] [id number] [place] [address] 95435- 5418 Jul, Chronic pain G89.29 [place] [address] 02944- 9639 Jul, Chronic pain G89.29 [facility] [address] 54650- 1631 Jun, Chronic pain G89.29 [place] [id number] [place] [address] 76814- 6600 Jun, [place] [address] 22534- 7197 Jun, Chronic pain G89.29 [place] [id number] [place] [address] 46936- 7889 May, Chronic pain G89.29 and Type 2 diabetes mellitus with diabetic chronic kidney disease E11.22 [facility] [id number] [place] [address] 55034- 0857 16 May, 2017 [place] [id number] [place] [address] 93026- 0336 May, Chronic pain G89.29 and Anxiety F41.9 [facility] [id number] [place] [address] 46855- 6952 May, Type 2 diabetes mellitus with diabetic chronic kidney disease E11.22 ; Social phobia F40.10 ; Morbid obesity E66.01 ; Chronic pain G89.29 ; HTN (hypertension) I10 ; Degenerative disc disease at L5-S1 level M51.36 ; BPH (benign prostatic hyperplasia) N40.0 ; Pain in right knee M25.561 and 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 [place] [id number] [place] [address] 58565- 3191 Apr, Anxiety F41.9 [place] [id number] [place] [address] 71306- 3767 Apr, [facility] [id number] [place] [address] 20001- 7064 Mar, [place] [address] 34914- 9644 Mar, Edema, unspecified type R60.9 and Anxiety F41.9 [place] [id number] [place] [address] 44306- 1684 Mar, Social phobia F40.10 ; Mixed obsessional thoughts and acts F42.2 and Mild episode of recurrent major depressive disorder F33.0 [place] [id number] [place] [address] 34907- 4617 Mar, Degenerative disc disease at L5-S1 level M51.36 [facility] [id number] [place] [address] 28030- 6695 Mar, [place] [id number] [place] [address] 64166- 0625 Mar, [place] [id number] [place] [address] 93439- 0985 Mar, [place] [id number] [place] [address] 29293- 9478 February, Morbid obesity E66.01 ; Anxiety F41.9 ; Degenerative disc disease at L5-S1 level M51.36 ; BPH (benign prostatic hyperplasia) N40.0 ; Social phobia F40.10 ; HTN (hypertension) I10 ; Edema, unspecified type R60.9 and Screening cholesterol level Z13.220 [place] [address] [id number] [place] [address] 50665- 8037 February, Social phobia, generalized F40.11 [place] [address] [id number] [place] [address] 56245- 3903 February, Chronic pain G89.29 [facility] [id number] [place] [address] 41959- 7713 February, [facility] [id number] [place] [address] 05007- 5973 Jan, Chronic pain G89.29 [facility] [id number] [place] [address] 68663- 1789 04 Jan, 2017 Panic disorder [episodic paroxysmal anxiety] without agoraphobia F41.0 [place] [id number] [place] [address] 58251- 9147 13 Dec, 2016 Morbid obesity E66.01 ; Anxiety F41.9 ; Chronic pain G89.29 ; HTN (hypertension) I10 ; BPH (benign prostatic hyperplasia) N40.0 ; Generalized edema R60.1 and Cough R05 [place] [address] [id number] [place] [address] 89796- 0155 14 Nov, 2016 Chronic pain G89.29 [place] [address] [id number] [place] [address] 03165- 2496 03 Nov, 2016 Social phobia, generalized F40.11 and Mild episode of recurrent major depressive disorder F33.0 [place] [id number] [place] [address] 37806- 3828 Oct, Chronic pain G89.29 [place] [address] [id number] [place] [address] 47608- 5624 Oct, Social phobia, generalized F40.11 [place] [address] [id number] [place] [address] 88562- 5123 Sep, [place] [address] [id number] [place] [address] 75479- 0017 Sep, [place] [address] [id number] [place] [address] 56924- 6468 Sep, [place] [address] [place] [id number] [place] [address] 58597- 3853 Sep, [facility] [address] [id number] [place] [address] 95557- 6095 Sep, [facility] [address] [id number] [place] [address] 58022- 5513 16 Sep, 2016 Social phobia, generalized F40.11 and Mild episode of recurrent major depressive disorder F33.0 [place] [address] [id number] [place] [address] 74540- 0093 08 Sep, 2016 [place] [address] [id number] [place] [address] 33591- 8242 Aug, [place] [address] [id number] [place] [address] 91069- 9179 Aug, [place] [address] 40043- 7239 17 Aug, 2016 Bronchitis J40 [place] [address] [place] [id number] [place] [address] 39174- 6899 15 Aug, 2016 [place] [address] [place] [id number] [place] [address] 07107- 7137 10 Aug, 2016 Osteoarthritis of knee, unspecified M17.9 [place] [address] [place] [id number] [place] [address] 12787- 0875 09 Aug, 2016 Morbid obesity E66.01 ; Chronic pain G89.29 ; Anxiety F41.9 ; Social phobia F40.10 ; HTN (hypertension) I10 ; Social phobia, generalized F40.11 ; Acute upper respiratory infection, unspecified J06.9 and Other viral agents as the cause of diseases classified elsewhere B97.89 [place] [address] [place] [id number] [place] [address] 88241- 1909 08 Aug, 2016 Social phobia, generalized F40.11 and Dysthymic disorder F34.1 [facility] [id number] [place] [address] 77892- 4175 Jul, [place] [address] [id number] [place] [address]- 1421 Jun, [facility] [address] [facility] [id number] [place] [address]- 7129 May, [facility] [address] [facility] [id number] [place] [address]- 9228 May, [facility] [address] [facility] [id number] [place] [address]- 7682 May, [facility] [address] [facility] [id number] [place] [address]- 5457 May, [facility] [address] [facility] [id number] [place] [address]- 3772 May, [facility] [address] [facility] [id number] [place] [address]- 7058 May, [facility] [address] [place] [id number] [place] [address]- 2746 May, [facility] [address] [facility] [id number] [place] [address]- 7265 Apr, [facility] [address] [place] [id number] [place] [address]- 8760 Apr, Chondromalacia, right knee M94.261 [facility] [id number] [address]- 9594 Apr, Pain in unspecified hip M25.559 [facility] [address] [facility] [id number], [place] [address]- 5298 Mar, Social phobia, unspecified F40.10 and Pain in unspecified hip M25.559 [facility] [address] [facility] [id number] [place] [address]- 5181 February, [facility] [address] [place] [id number] [place] [address]- 3019 February, Social phobia F40.10 [facility] [id number] [place] [address] 48199- 1120 February, Morbid obesity E66.01 ; Chronic pain G89.29 ; Social phobia F40.10 ; Pelvic pain in male R10.2 ; HTN (hypertension) I10 ; Degenerative disc disease at L5-S1 level M51.36 ; BPH (benign prostatic hyperplasia) N40.0 and Pain in right knee M25.561 [place] [address] 32402- 3050 14 Jan, 2016 [facility] [address] 78899- 5854 Jan, [place] [address] 14453- 5013 Jan, [place] [address] 20479- 8984 Dec, [place] [address] [id number] [place] [address] 77835- 8311 Dec, [place] [id number] [place] [address] 07350- 6668 Dec, [facility] WALK IN [place] [id number] [place] [address] 75207 -6531 Nov, Strep pharyngitis J02.0 ; Influenza A J10.1 and Cough R05 [place] [id number] [place] [address] 40195- 4545 Nov, [facility] [id number] [place] [address] 61864- 0246 Nov, [address] 43569- 6586 Oct, HTN (hypertension) I10 ; Morbid obesity E66.01 ; Anxiety F41.9 ; Social phobia F40.10 ; Panic disorder F41.0 ; Degenerative disc disease at L5-S1 level M51.36 and Hypercholesterolemia E78.0 [place] [id number] [place] [address] 15776- 7456 Oct, Panic disorder [episodic paroxysmal anxiety] without agoraphobia F41.0 and Social phobia, generalized F40.11 [facility] [id number] [address]- 7870 Oct, [facility] [id number] [place] [address] 27558- 5229 Sep, [facility] [id number] [place] [address] 43218- 8626 Sep, [facility] [id number] [place] [address] 61374- 2235 Sep, [facility] [id number] [place] [address] 22154- 9596 Sep, [facility] [id number] [place] [address] 35945- 3260 Aug, [facility] [id number] [place] [address] 86887- 4660 Aug, [facility] [id number] [place] [address] 42803- 4556 Aug, [facility] [id number] [place] [address] 65115- 8381 Aug, Social phobia F40.10 and Panic disorder F41.0 [facility] [id number] [place] [address] 18902- 3158 Aug, [facility] [id number] [place] [address] 21154- 5564 Aug, [facility] [id number] [place] [address] 93994- 3481 Aug, [facility] [id number] [place] [address] 56128- 1800 Aug, [facility] [id number] [place] [address] 99601- 8849 Jul, [facility] [id number] [place] [address] 65343- 0990 Jul, Morbid obesity E66.01 ; Chronic pain G89.29 ; Anxiety F41.9 ; Social phobia F40.10 ; Panic disorder F41.0 ; Pelvic pain in male R10.2 ; Insomnia G47.00 and HTN (hypertension) I10 [facility] [id number] [place] [address] 33127- 5528 Jul, [facility] [id number] [place] [address] 31135- 6305 Jul, [facility] [id number] [place] [address] 79945- 5587 Jun, Degenerative disc disease 722.6 [facility] [id number] [place] [address] 22093- 4611 Jun, Pain in joint, pelvic region and thigh 719.45 ; Morbid obesity 278.01 ; Essential hypertension, benign 401.1 and Constipation 564.00 [facility] [id number] [place] [address] 10347- 9438 May, [facility] [id number] [place] [address] [phone]- [phone] May, [facility] [id number] [place] [address] [phone]- 4305 May, [facility] [id number] [place] [address] 49084- 5292 May, [facility] [id number] [place] [address] 53282- 9720 May, [facility] [id number] [place] [address] [phone]- 5177 May, [facility] [id number] [place] [address] 19892- 9433 May, Essential hypertension, benign 401.1 ; Anxiety state, unspecified 300.00 ; Panic disorder without agoraphobia 300.01 ; Social phobia 300.23 ; Morbid obesity 278.01 ; Other chronic pain 338.29 and Insomnia 780.52 [facility] [id number] [place] [address] [id number]- 2658 May, Essential hypertension 401.9 [facility] [id number] [place] [address] 01129- 1878 May, Pain in joint, pelvic region and thigh 719.45 [facility] [id number] [place] [address] 43421- 1764 May, Essential hypertension, benign 401.1 [facility] [id number] [place] [address] 34841- 3205 May, Panic disorder without agoraphobia 300.01 and Social phobia 300.23 [facility] [id number] [place] [address] 47449- 0307 May, [facility] [id number] [place] [address] 49951- 1584 May, [facility] [id number] [place] [address] 02838- 4065 Apr, Chronic pain 338.29 [facility] [id number] [place] [address] 77642- 3060 Apr, [facility] [id number] [place] [address] 47695- 2617 Apr, [facility] [id number] [place] [address] 81514- 9708 Apr, [facility] [id number] [place] [address] 00565- 2106 Apr, [facility] [id number] [place] [address] 36688- 6893 Apr, [facility] [id number] [place] [address] 44896- 2163 Apr, [facility] [id number] [address] 39[address] Apr, [facility] [id number] [address] Apr, Essential hypertension, benign 401.1 ; Morbid obesity 278.01 ; Anxiety state, unspecified 300.00 ; Panic disorder without agoraphobia 300.01 ; Social phobia 300.23 and Chronic pain 338.29 [facility] [id number] [address] 6162 Mar, [facility] [id number] [place] [address] 39120- 0258 Mar, [facility] [id number] [place] [address] 23653- 8691 Mar, [facility] [id number] [place] [address] 19999- 1346 Mar, [facility] [id number] [place] [address] 24386- 8113 Mar, Social phobia 300.23 and Panic disorder without agoraphobia 300.01 [facility] [id number] [address]345 Mar, [facility] [id number] [address] 7175 February, [facility] [id number] [address] 6085 February, Major depression, recurrent 296.30 and No condition on [place] II V71.09 [facility] [id number] [address] February, [facility] [id number] [address] 9213 February, Panic disorder without agoraphobia 300.01 ; Social phobia 300.23 and Morbid obesity 278.01 [facility] [id number] [place] [address] 14 Jan, 2015 [facility] [place] [facility] [address] [id number] [place] [address]- 4978 13 Jan, 2015 [facility] [place] [facility] [address] [id number] [place] [address]- 3872 27 Dec, 2014 [facility] [place] [facility] [address] [id number] [place] [address]- 9501 Dec, [facility] [place] [facility] [address] [id number] [place] [address]- 8049 Dec, [facility] [place] [facility] [address] [id number] [place] [address]- 0156 25 Dec, 2014 [facility] [place] [facility] [address] [id number] [place] [address]- 2937 Dec, [facility] [place] [facility] [address] [id number] [place] [address]- 0981 Dec, [facility] [place] [facility] [address] [id number] [place] [address]- 8509 Dec, [facility] [place] [facility] [address] [id number] [place] [address]- 0745 25 Dec, 2014 [facility] [place] [facility] [address] [id number] [place] [address]- 4141 Dec, [facility] [place] [facility] [address] [id number] [place] [address]- 7816 Dec, [facility] [place] [facility] [address] [id number] [place] [address]- 0364 13 Dec, 2014 [facility] [place] [facility] [address] [id number] [place] [address]- 9142 13 Dec, 2014 [facility] [place] [facility] [address] [id number] [place] [address]- 3804 13 Dec, 2014 [facility] [place] [facility] [address] [id number] [place] [address]- 1320 Dec, [facility] [address] [facility] [id number] [place] [address]- 6191 Dec, [facility] [address] [facility] [id number] [place] [address]- 8774 Dec, IMMUNIZATIONS No Known Immunizations SOCIAL HISTORY [...] 20-25, moderate to severe tricuspid regurgitation, seen [facility] 11[facility]30[facility]. Medical History Social phobia, generalized Medical [...]
--- OUTSIDE RECORDS SUMMARY | 2018-11-30 17:43 | XMS REPORT ---
Author Author ROSE MARY BUCKNER [facility] Address [address] [place] [address] Care Team Providers Care Animal Shelter Supervisor Name Role Phone ISA BUCKNERTA Unavailable PROBLEMS Type Condition ICD9-CM Code PEY08-XQ Code Onset Dates Condition Status SNOMED Code Problem Type 2 diabetes mellitus with diabetic chronic kidney disease E11.22 Active 84490985 Problem Mixed hyperlipidemia E78.2 Active 165122641 Problem Primary insomnia F51.01 Active 7008864 Problem Major depressive disorder, recurrent, in full remission F33.42 Active 890877325 Problem Lymphedema I89.0 Active 116267787 Problem BMI 50.0-59.9, adult Z68.43 Active 987811284 Problem Constipation, unspecified constipation type K59.00 Active 02029422 Problem Chronic systolic congestive heart failure I50.22 Active 718563084 Problem Stasis dermatitis of both legs I87.2 Active 74997357 Problem Abnormal liver function test R94.5 Active 259960665 Problem Panic disorder F41.0 Active 449489606 Problem Controlled substance agreement terminated Z91.14 Active 484104985 Problem Cardiomegaly I51.7 Active 2788476 Problem Degenerative disc disease at L5-S1 level M51.36 Active 46194234 Problem BPH (benign prostatic hyperplasia) N40.0 Active 266876495 Problem Chronic pain G89.29 Active 27473898 Problem Dysthymic disorder F34.1 Active 06138044 Problem HTN (hypertension) I10 Active 55591693 Problem Mild episode of recurrent major depressive disorder F33.0 Active 085652484 ALLERGIES No Information ENCOUNTERS Encounter Location Date Diagnosis [facility] [address] [facility] [id number] [address] Aug, [facility] [address] [facility] [id number] [address] Jul, Type 2 diabetes mellitus with diabetic chronic kidney disease E11.22 [place] [address] [place] [id number] [place] [address] 66785- 5425 Jul, Chronic systolic congestive heart failure I50.22 and Mixed hyperlipidemia E78.2 [place] [address] [place] [id number] [place] [address] 54659- 0197 Jun, [place] [address] 0[address]30- 6390 Jun, Type 2 diabetes mellitus with diabetic chronic kidney disease E11.22 [place] [address] 27335- 3694 Jun, Onychomycosis B35.1 ; Self-care deficit for hygiene R46.0 and Nail hypertrophy L60.2 [place] [id number] [place] [address] 39046- 1004 Jun, Dental examination Z01.[address] 5[address]29- 3874 Jun, Tooth infection K04.7 ; BMI 40.0-44.9, adult Z68.41 and Mouth pain K13.[address] 56128- 6037 Jun, Type 2 diabetes mellitus with diabetic chronic kidney disease E11.22 [place] [address] [address] [id number] [place] [address] 37115- 3239 May, Degenerative disc disease at L5-S1 level M51.36 ; Chronic pain G89.29 and BMI 40.0-44.9, adult Z68.41 [place] [address] [id number] [place] [address] 41199- 2245 May, [place] [id number] [place] [address] 64595- 0803 May, Type 2 diabetes mellitus with diabetic chronic kidney disease E11.22 [place] [address] [id number] [place] [address] 45903- 5283 May, [place] [address] [address] 1236 20 May, 2018 Degenerative disc disease at L5-S1 level M51.36 [place] [address] [address] 0812 May, [place] [address] [place] [address] 11955- 7280 May, [place] [address] [place] [id number] [place] [address] 65335- 5328 May, [place] [address] [place] [address] 84778- 8529 Apr, Type 2 diabetes mellitus with diabetic chronic kidney disease E11.22 ; Chronic pain G89.29 ; Major depressive disorder, recurrent, in full remission F33.42 ; HTN (hypertension) I10 ; Chronic systolic congestive heart failure I50.22 ; Mixed hyperlipidemia E78.2 and BMI 45.0-49.9, adult Z68.42 [address] [address] Apr, Type 2 diabetes mellitus with diabetic chronic kidney disease E11.22 [place] [address] [place] [address] 42027- 5444 Apr, Medicare annual wellness visit, initial Z00.00 [...] vaccine Z28.21 and Encounter for immunization Z23 [address] [place] [address] 65847- 0552 Apr, [place] [address] [place] [address] 74542- 2573 Mar, Type 2 diabetes mellitus with diabetic chronic kidney disease E11.22 [place] [address] [id number] [place] [address] 67012- 7202 Mar, Chronic pain G89.29 [place] [address] [id number] [place] [address] 21283- 0895 February, Chronic pain G89.29 ; Abnormal liver function test R94.5 and Degenerative disc disease at L5-S1 level M51.36 [place] [address] [id number] [place] [address] 31193- 9506 Jan, [place] [address] [address] [id number] [place] [address] 95382- 9829 Jan, [place] [address] [address] [id number] [place] [address] 22389- 0991 Jan, [place] [address] [address] [id number] [place] [address] 68384- 0811 Jan, Abnormal liver function test R94.5 ; Dysthymic disorder F34.1 and Chronic pain G89.29 [place] [address] [address] [id number] [place] [address] 39410- 4421 Dec, [place] [address] [address] [id number] [place] [address] 86108- 0776 Dec, HTN (hypertension) I10 ; BMI 45.0-49.9, adult Z68.42 ; Chronic pain G89.29 ; Primary insomnia F51.01 ; Mixed hyperlipidemia E78.2 ; Dysthymic disorder F34.1 ; Type 2 diabetes mellitus with diabetic chronic kidney disease E11.22 ; Stasis dermatitis of both legs I87.2 and Chronic systolic congestive heart failure I50.22 [facility] [address] [place] [address] 49983- 9427 Dec, Chronic pain G89.29 [facility] [address] [place] [address] [id number] [place] [address] 60802 -7377 Dec, Lymphedema I89.0 and Chronic systolic congestive heart failure I50.22 [place] [address] [place] [address] 11099- 3035 Dec, [place] [address] [address] [id number] [place] [address] 29686- 6671 Nov, Type 2 diabetes mellitus with diabetic chronic kidney disease E11.22 [place] [address] [address] [id number] [place] [address] 01971- 3606 12 Nov, 2017 Chronic pain G89.29 and Dysthymic disorder F34.1 [place] [address] [address] [id number] [place] [address] 35053- 6314 Nov, [place] [address] [address] [id number] [place] [address] 34550- 9450 Oct, HTN (hypertension) I10 ; Chronic pain G89.29 ; BMI 45.0-49.9 , adult Z68.42 ; Primary insomnia F51.01 ; Mixed hyperlipidemia E78.2 ; Dysthymic disorder F34.1 ; Type 2 diabetes mellitus with diabetic chronic kidney disease E11.22 ; Chronic congestive heart failure, unspecified congestive heart failure type I50.9 ; Acute non-recurrent maxillary sinusitis J01.00 and BMI 50.0-59.9, adult Z68.43 [place] [address] [place] [address] 73036- 2598 Oct, HTN (hypertension) I10 and Dysthymic disorder F34.1 [place] [address] [address]- 1046 Oct, [place] [address] [address] [id number] [place] [address] 65927- 4200 Oct, HTN (hypertension) I10 [place] [address] [place] [address] 53425- 1828 Oct, Chronic pain G89.29 [place] [address] [address] [id number] [place] [address] 22992- 1026 Sep, [facility] [address] [place] [address] 13162- 3489 Sep, HTN (hypertension) I10 ; Chronic pain G89.29 ; BMI 45.0-49.9 , adult Z68.42 ; Primary insomnia F51.01 ; Mixed hyperlipidemia E78.2 ; Dysthymic disorder F34.1 and Type 2 diabetes mellitus with diabetic chronic kidney disease E11.22 [place] [address] [id number] [place] [address] 92229- 8463 Sep, Chronic pain G89.29 [place] [address] [address] [id number] [place] [address] 78325- 6737 Sep, Acute on chronic heart failure, unspecified heart failure type I50.9 [place] [address] [address] [id number] [place] [address] 84001- 0563 Sep, Acute on chronic heart failure, unspecified heart failure type I50.9 ; Type 2 diabetes mellitus with diabetic chronic kidney disease E11.22 and BMI 50.0-59.9, adult Z68.43 [place] [address] [id number] [place] [address] 30704- 9720 Sep, Acute on chronic heart failure, unspecified heart failure type I50.9 ; HTN (hypertension) I10 and Type 2 diabetes mellitus with diabetic chronic kidney disease E11.22 [place] [address] [place] [address] 20671- 1670 Aug, Acute on chronic heart failure, unspecified heart failure type I50.9 ; HTN (hypertension) I10 ; Type 2 diabetes mellitus with diabetic chronic kidney disease E11.22 ; Cellulitis of right lower extremity L03.115 and BMI 50.0-59.9, adult Z68.43 [facility] [address] [place] [address] 63595 -8091 Aug, Acute upper respiratory infection, unspecified J06.9 ; Other viral agents as the cause of diseases classified elsewhere B97.89 ; Constipation, unspecified constipation type K59.00 ; BMI 50.0-59.9, adult Z68.43 and BMI 60.0-69.9, adult Z68.44 [place] [address] [address] [id number] [place] [address] 05946- 5777 Aug, Chronic pain G89.29 [place] [address] [place] [address] [id number] [place] [address] 63327- 5278 Jul, Chronic pain G89.29 [place] [address] 83860- 7211 Jul, Chronic pain G89.29 [place] [address] 96570- 7559 Jun, Chronic pain G89.29 [place] [address] [id number] [place] [address] 03265- 4213 Jun, [place] [address] 27409- 0049 Jun, Chronic pain G89.29 [place] [address] [address] [id number] [place] [address] 80435- 5427 May, Chronic pain G89.29 and Type 2 diabetes mellitus with diabetic chronic kidney disease E11.22 [place] [address] [place] [id number] [place] [address] 43435- 4572 16 May, 2017 [place] [address] [address] [id number] [place] [address] 56213- 5551 May, Chronic pain G89.29 and Anxiety F41.9 [place] [address] [place] [id number] [place] [address] 92011- 7312 May, Type 2 diabetes mellitus with diabetic chronic kidney disease E11.22 ; Social phobia F40.10 ; Morbid obesity E66.01 ; Chronic pain G89.29 ; HTN (hypertension) I10 ; Degenerative disc disease at L5-S1 level M51.36 ; BPH (benign prostatic hyperplasia) N40.0 ; Pain in right knee M25.561 and 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 [place] [address] [address] [id number] [place] [address] 58970- 2524 Apr, Anxiety F41.9 [place] [address] [address] [id number] [place] [address] 20374- 3590 Apr, [facility] [address] [place] [id number] [place] [address] 46180- 9378 Mar, [place] [address] 69526- 5607 Mar, Edema, unspecified type R60.9 and Anxiety F41.9 [place] [address] [address] [id number] [place] [address] 56212- 6939 Mar, Social phobia F40.10 ; Mixed obsessional thoughts and acts F42.2 and Mild episode of recurrent major depressive disorder F33.0 [place] [address] [place] [address] [id number] [place] [address] 32245- 8515 Mar, Degenerative disc disease at L5-S1 level M51.36 [place] [address] [address] [id number] [place] [address] 79734- 9546 Mar, [place] [address] [id number] [place] [address] 57137- 0002 Mar, [place] [address] [place] [id number] [place] [address] 07920- 3618 Mar, [place] [address] [place] [id number] [place] [address] 27797- 2875 February, Morbid obesity E66.01 ; Anxiety F41.9 ; Degenerative disc disease at L5-S1 level M51.36 ; BPH (benign prostatic hyperplasia) N40.0 ; Social phobia F40.10 ; HTN (hypertension) I10 ; Edema, unspecified type R60.9 and Screening cholesterol level Z13.220 [place] [address] [place] [id number] [place] [address] 37201- 4852 February, Social phobia, generalized F40.11 [place] [address] [place] [id number] [place] [address] 66937- 6278 February, Chronic pain G89.29 [facility] [address] [place] [id number] [place] [address] 38067- 2545 February, [facility] [address] [place] [id number] [place] [address] 85641- 5673 Jan, Chronic pain G89.29 [facility] [address] [place] [id number] [place] [address] 40606- 0228 04 Jan, 2017 Panic disorder [episodic paroxysmal anxiety] without agoraphobia F41.0 [place] [address] [id number] [place] [address] 02860- 7161 13 Dec, 2016 Morbid obesity E66.01 ; Anxiety F41.9 ; Chronic pain G89.29 ; HTN (hypertension) I10 ; BPH (benign prostatic hyperplasia) N40.0 ; Generalized edema R60.1 and Cough R05 [place] [address] [id number] [place] [address] 73813- 6929 14 Nov, 2016 Chronic pain G89.29 [place] [address] [place] [id number] [place] [address] 46564- 3654 03 Nov, 2016 Social phobia, generalized F40.11 and Mild episode of recurrent major depressive disorder F33.0 [place] [address] [place] [id number] [place] [address] 48135- 1649 Oct, Chronic pain G89.29 [place] [address] [place] [id number] [place] [address] 24129- 3501 Oct, Social phobia, generalized F40.11 [place] [address] [id number] [place] [address] 07089- 4056 Sep, [place] [address] [place] [id number] [place] [address] 45874- 9266 Sep, [place] [address] [place] [id number] [place] [address] 24913- 0101 Sep, [place] [address] [place] [address] [place] [address] 17199- 1703 Sep, [facility] [address] [place] [id number] [place] [address] 24977- 6578 Sep, [facility] [address] [place] [id number] [place] [address] 59891- 3347 16 Sep, 2016 Social phobia, generalized F40.11 and Mild episode of recurrent major depressive disorder F33.0 [place] [address] [id number] [place] [address] 10089- 9020 08 Sep, 2016 [place] [address] [place] [id number] [place] [address] 08078- 5455 Aug, [place] [address] [place] [id number] [place] [address] 24618- 9104 Aug, [place] [address] 37556- 3939 17 Aug, 2016 Bronchitis J40 [place] [address] [place] [id number] [place] [address] 74655- 2533 15 Aug, 2016 [place] [address] [place] [id number] [place] [address] 18244- 5799 10 Aug, 2016 Osteoarthritis of knee, unspecified M17.9 [place] [address] [place] [id number] [place] [address] 32182- 4670 09 Aug, 2016 Morbid obesity E66.01 ; Chronic pain G89.29 ; Anxiety F41.9 ; Social phobia F40.10 ; HTN (hypertension) I10 ; Social phobia, generalized F40.11 ; Acute upper respiratory infection, unspecified J06.9 and Other viral agents as the cause of diseases classified elsewhere B97.89 [place] [address] [place] [id number] [place] [address] 68140- 6692 08 Aug, 2016 Social phobia, generalized F40.11 and Dysthymic disorder F34.1 [place] [address] [place] [id number] [place] [address] 82227- 3357 Jul, [place] [address] [id number] [place] [address]- 1416 Jun, [facility] [address] [facility] [id number] [place] [address]- 6304 May, [facility] [address] [facility] [id number] [place] [address]- 9903 May, [facility] [address] [facility] [id number] [place] [address]- 2172 May, [facility] [address] [facility] [id number] [place] [address]- 6677 May, [facility] [address] [facility] [id number] [place] [address]- 6753 May, [facility] [address] [facility] [id number] [place] [address]- 4379 May, [facility] [address] [place] [id number] [place] [address]- 7890 May, [facility] [address] [facility] [id number] [place] [address]- 6672 Apr, [facility] [address] [place] [id number] [place] [address]- 1861 Apr, Chondromalacia, right knee M94.261 [facility] [address] [place] [id number] [address]- 1805 Apr, Pain in unspecified hip M25.559 [facility] [address] [facility] [id number] [address]- 5129 Mar, Social phobia, unspecified F40.10 and Pain in unspecified hip M25.559 [facility] [address] [facility] [id number] [place] [address]- 5536 February, [facility] [address] [place] [id number] [place] [address]- 9883 February, Social phobia F40.10 [facility] [address] [address] [id number] [place] [address] 28104- 8346 February, Morbid obesity E66.01 ; Chronic pain G89.29 ; Social phobia F40.10 ; Pelvic pain in male R10.2 ; HTN (hypertension) I10 ; Degenerative disc disease at L5-S1 level M51.36 ; BPH (benign prostatic hyperplasia) N40.0 and Pain in right knee M25.561 [place] [address] 16468- 3903 14 Jan, 2016 [facility] [address] 18576- 3286 Jan, [place] [address] 42175- 4486 Jan, [place] [address] 01423- 9206 Dec, [place] [address] [address] [id number] [place] [address] 61350- 9985 Dec, [place] [address] [address] [id number] [place] [address] 11401- 4904 Dec, [facility] [place] [address] [address] [id number] [place] [address] 44259 -1231 Nov, Strep pharyngitis J02.0 ; Influenza A J10.1 and Cough R05 [place] [id number] [place] [address] 69352- 5735 Nov, [facility] [address] [address] [id number] [place] [address] 96225- 9519 Nov, [address] 07679- 2568 Oct, HTN (hypertension) I10 ; Morbid obesity E66.01 ; Anxiety F41.9 ; Social phobia F40.10 ; Panic disorder F41.0 ; Degenerative disc disease at L5-S1 level M51.36 and Hypercholesterolemia E78.0 [place] [address] [id number] [place] [address] 27245- 3670 Oct, Panic disorder [episodic paroxysmal anxiety] without agoraphobia F41.0 and Social phobia, generalized F40.11 [facility] [address] [id number] [address]- 0343 Oct, [facility] [id number] [place] [address] 55596- 2585 Sep, [facility] [id number] [place] [address] 25540- 8685 Sep, [facility] [id number] [place] [address] 29548- 3312 Sep, [facility] [id number] [place] [address] 04312- 8060 Sep, [facility] [id number] [place] [address] 03257- 9793 Aug, [facility] [id number] [place] [address] 97607- 2963 Aug, [facility] [id number] [place] [address] 28563- 1222 Aug, [facility] [id number] [place] [address] 67073- 0995 Aug, Social phobia F40.10 and Panic disorder F41.0 [facility] [id number] [place] [address] 73747- 5976 Aug, [facility] [id number] [place] [address] 67669- 1614 Aug, [facility] [id number] [place] [address] 28072- 0899 Aug, [facility] [id number] [place] [address] 16717- 7324 Aug, [facility] [id number] [place] [address] 46910- 5220 Jul, [facility] [id number] [place] [address] 55158- 6613 Jul, Morbid obesity E66.01 ; Chronic pain G89.29 ; Anxiety F41.9 ; Social phobia F40.10 ; Panic disorder F41.0 ; Pelvic pain in male R10.2 ; Insomnia G47.00 and HTN (hypertension) I10 [facility] [id number] [place] [address] 31014- 3739 Jul, [facility] [id number] [place] [address] [id number]- 6775 Jul, [facility] [id number] [place] [address] 52745- 7466 Jun, Degenerative disc disease 722.6 [facility] [id number] [place] [address] 09498- 6704 Jun, Pain in joint, pelvic region and thigh 719.45 ; Morbid obesity 278.01 ; Essential hypertension, benign 401.1 and Constipation 564.00 [facility] [id number] [place] [address] 02751- 8254 May, [facility] [id number] [place] [address] 50466- 9429 May, [facility] [id number] [place] [address] 18099- 3936 May, [facility] [id number] [place] [address] [id number]- 2353 May, [facility] [id number] [place] [address] 77276- 4466 May, [facility] [id number] [place] [address] 91226- 1199 May, [facility] [id number] [place] [address] 98813- 6118 May, Essential hypertension, benign 401.1 ; Anxiety state, unspecified 300.00 ; Panic disorder without agoraphobia 300.01 ; Social phobia 300.23 ; Morbid obesity 278.01 ; Other chronic pain 338.29 and Insomnia 780.52 [facility] [id number] [place] [address] [id number]- 2067 May, Essential hypertension 401.9 [facility] [id number] [place] [address] 56389- 3187 May, Pain in joint, pelvic region and thigh 719.45 [facility] [id number] [place] [address] 97151- 9679 May, Essential hypertension, benign 401.1 [facility] [id number] [place] [address] 25562- 1821 May, Panic disorder without agoraphobia 300.01 and Social phobia 300.23 [facility] [id number] [place] [address] 78693- 4192 May, [facility] [id number] [place] [address] 03676- 2231 May, [facility] [id number] [place] [address] 98333- 6592 Apr, Chronic pain 338.29 [facility] [id number] [place] [address] 73431- 0509 Apr, [facility] [id number] [place] [address] 56714- 1769 Apr, [facility] [id number] [place] [address] 51921- 3278 Apr, [facility] [id number] [place] [address] 44261- 8502 Apr, [facility] [id number] [place] [address] 82430- 2972 Apr, [facility] [facility] [id number] [place] [address] Apr, [facility] [id number] [address] Apr, [facility] [id number] [address] Apr, Essential hypertension, benign 401.1 ; Morbid obesity 278.01 ; Anxiety state, unspecified 300.00 ; Panic disorder without agoraphobia 300.01 ; Social phobia 300.23 and Chronic pain 338.29 [facility] [id number] [address] Mar, [facility] [id number] [place] [address]- [address]76 Mar, [facility] [id number] [place] [address]- [address]666 Mar, [facility] [id number] [place] [address]- [address] Mar, [facility] [id number] [place] [address]- [address] Mar, Social phobia 300.23 and Panic disorder without agoraphobia 300.01 [facility] [id number] [address] Mar, [facility] [address] [address] February, [facility] [id number] [address] February, Major depression, recurrent 296.30 and No condition on [place] II V71.09 [facility] [id number] [address] February, [facility] [id number] [address] February, Panic disorder without agoraphobia 300.01 ; Social phobia 300.23 and Morbid obesity 278.01 [facility] [id number] [place] [address] 14 Jan, 2015 [facility] [place] [facility] [address] [id number] [place] [address] 13 Jan, 2015 [facility] [place] [facility] [address] [id number] [place] [address] 27 Dec, 2014 [facility] [place] [facility] [address] [id number] [place] [address]162 Dec, [facility] [place] [facility] [address] [id number] [place] [address] Dec, [facility] [place] [facility] [address] [id number] [place] [address]- [address] 25 Dec, 2014 [facility] [place] [facility] [address] [id number] [place] [address]- [address] Dec, [facility] [place] [facility] [address] [id number] [place] [address]- [address] Dec, [facility] [place] [facility] [address] [id number] [place] [address]- 9675 Dec, [facility] [place] [facility] [address] [id number] [place] [address]- [address]165 25 Dec, 2014 [facility] [place] [facility] [address] [id number] [place] [address]- 8990 Dec, [facility] [place] [facility] [address] [id number] [place] [address] Dec, [facility] [place] [facility] [address] [id number] [place] [address] 13 Dec, 2014 [facility] [place] [facility] [address] [id number] [place] [address]- [address] 13 Dec, 2014 [facility] [place] [facility] [address] [id number] [place] [address]- 69[address] 13 Dec, 2014 [facility] [place] [facility] [address] [id number] [place] [address] Dec, [facility] [address] [facility] [id number] [place] [id number] Dec, [facility] [address] [facility] [id number] [place] [address] Dec, IMMUNIZATIONS No Known Immunizations SOCIAL HISTORY Never Assessed REASON FOR VISIT medication refill PLAN OF CARE VITAL SIGNS MEDICATIONS [...]
--- OUTSIDE RECORDS SUMMARY | 2018-11-30 17:44 | XMS REPORT ---
Author Author ROSE MARY BUCKNER [facility] Address [address] [place] [address] Care Team Providers Care Passenger Barge Master Name Role Phone ISA BUCKNERTA Unavailable PROBLEMS Type Condition ICD9-CM Code VQH26-TA Code Onset Dates Condition Status SNOMED Code Problem Type 2 diabetes mellitus with diabetic chronic kidney disease E11.22 Active 41554944 Problem Mixed hyperlipidemia E78.2 Active 256861940 Problem Primary insomnia F51.01 Active 9632159 Problem Major depressive disorder, recurrent, in full remission F33.42 Active 350158769 Problem Lymphedema I89.0 Active 391833333 Problem BMI 50.0-59.9, adult Z68.43 Active 249297959 Problem Constipation, unspecified constipation type K59.00 Active 21454956 Problem Chronic systolic congestive heart failure I50.22 Active 503651996 Problem Stasis dermatitis of both legs I87.2 Active 74428883 Problem Abnormal liver function test R94.5 Active 165875086 Problem Panic disorder F41.0 Active 458964637 Problem Controlled substance agreement terminated Z91.14 Active 183801854 Problem Cardiomegaly I51.7 Active 2078871 Problem Degenerative disc disease at L5-S1 level M51.36 Active 85863677 Problem BPH (benign prostatic hyperplasia) N40.0 Active 788239882 Problem Chronic pain G89.29 Active 86069988 Problem Dysthymic disorder F34.1 Active 78001439 Problem HTN (hypertension) I10 Active 92050250 Problem Mild episode of recurrent major depressive disorder F33.0 Active 518375131 ALLERGIES Substance Reaction Event Type Date Status Wellbutrin Unknown Non Drug Allergy Jun, Active ENCOUNTERS Encounter Location Date Diagnosis [facility] [address] [facility] [id number], [place] [address] Aug, [facility] [address] [facility] [id number], [place] [address] Jun, [facility] [id number] [place] [address] 78429- 1491 Jun, Type 2 diabetes mellitus with diabetic chronic kidney disease E11.22 [facility] [id number] [place] [address] 32747- 5717 Jun, Onychomycosis B35.1 ; Self-care deficit for hygiene R46.0 and Nail hypertrophy L60.2 [facility] [address] 66173- 0409 Jun, Dental examination Z01.20 [facility] [id number] [place] [address] 32129- 3977 Jun, Tooth infection K04.7 ; BMI 40.0-44.9, adult Z68.41 and Mouth pain K13.79 [facility] [id number] [place] [address] 30433- 8864 Jun, Type 2 diabetes mellitus with diabetic chronic kidney disease E11.22 [facility] [id number] [place] [address] 88083- 2563 May, Degenerative disc disease at L5-S1 level M51.36 ; Chronic pain G89.29 and BMI 40.0-44.9, adult Z68.41 [facility] [id number] [place] [address] 83313- 9463 May, [facility] [id number] [place] [address] 01980- 2607 May, Type 2 diabetes mellitus with diabetic chronic kidney disease E11.22 [facility] [id number] [place] [address] 68275- 5830 May, [facility] [id number] [place] [address] 79555- 5626 May, Degenerative disc disease at L5-S1 level M51.36 [facility] [id number] [place] [address] 46685- 7685 May, [facility] [id number], [place] [address] 9671 May, [facility] [address], [place] [address] 9914 May, [facility] [address], [place] [address] 0955 Apr, Type 2 diabetes mellitus with diabetic chronic kidney disease E11.22 ; Chronic pain G89.29 ; Major depressive disorder, recurrent, in full remission F33.42 ; HTN (hypertension) I10 ; Chronic systolic congestive heart failure I50.22 ; Mixed hyperlipidemia E78.2 and BMI 45.0-49.9, adult Z68.42 [facility] [id number] [place] [address] 02343- 1638 Apr, Type 2 diabetes mellitus with diabetic chronic kidney disease E11.22 [facility] [id number] [place] [address] 22423- 9037 17 Apr, 2018 Medicare annual wellness visit, [...] vaccine Z28.21 and Encounter for immunization Z23 [facility] [id number], [place] [address] 4635 Apr, [facility] [id number] [place] [address] 27426- 3258 Mar, Type 2 diabetes mellitus with diabetic chronic kidney disease E11.22 [facility] [address], [place] [address] 9534 Mar, Chronic pain G89.29 [facility] [id number] [place] [address] 25348- 1502 February, Chronic pain G89.29 ; Abnormal liver function test R94.5 and Degenerative disc disease at L5-S1 level M51.36 [facility] [id number] [place] [address] 92601- 8321 Jan, [facility] [id number] [place] [address] 67736- 6094 Jan, [facility] [id number] [place] [address] 97036- 3807 Jan, [facility] [id number] [place] [address] 34523- 0407 Jan, Abnormal liver function test R94.5 ; Dysthymic disorder F34.1 and Chronic pain G89.29 [facility] [id number] [place] [address] 73682- 9464 Dec, [facility] [id number] [place] [address] 56072- 5449 Dec, HTN (hypertension) I10 ; BMI 45.0-49.9, adult Z68.42 ; Chronic pain G89.29 ; Primary insomnia F51.01 ; Mixed hyperlipidemia E78.2 ; Dysthymic disorder F34.1 ; Type 2 diabetes mellitus with diabetic chronic kidney disease E11.22 ; Stasis dermatitis of both legs I87.2 and Chronic systolic congestive heart failure I50.22 [facility] [address], [place] [address] 8627 Dec, Chronic pain G89.29 [facility] [id number] [place] [address] 50318 -4219 Dec, Lymphedema I89.0 and Chronic systolic congestive heart failure I50.22 [facility] [id number] [place] [address] 16384- 5883 Dec, [facility] [id number] [place] [address] 59421- 1239 26 Nov, 2017 Type 2 diabetes mellitus with diabetic chronic kidney disease E11.22 [facility] [id number] [place] [address] 72954- 5972 12 Nov, 2017 Chronic pain G89.29 and Dysthymic disorder F34.1 [facility] [id number] [place] [address] 05332- 1379 08 Nov, 2017 [facility] [id number] [place] [address] 66418- 2556 Oct, HTN (hypertension) I10 ; Chronic pain G89.29 ; BMI 45.0-49.9 , adult Z68.42 ; Primary insomnia F51.01 ; Mixed hyperlipidemia E78.2 ; Dysthymic disorder F34.1 ; Type 2 diabetes mellitus with diabetic chronic kidney disease E11.22 ; Chronic congestive heart failure, unspecified congestive heart failure type I50.9 ; Acute non-recurrent maxillary sinusitis J01.00 and BMI 50.0-59.9, adult Z68.43 [facility] [id number] [place] [address] 55875- 5188 Oct, HTN (hypertension) I10 and Dysthymic disorder F34.1 [facility] [id number] [place] [address] 50110- 2060 Oct, [facility] [id number] [place] [address] 29316- 6182 Oct, HTN (hypertension) I10 [facility] [id number] [place] [address] 86276- 7059 Oct, Chronic pain G89.29 [facility] [id number] [place] [address] 75898- 7269 Sep, [facility] [id number] [place] [address] 41640- 7274 Sep, HTN (hypertension) I10 ; Chronic pain G89.29 ; BMI 45.0-49.9 , adult Z68.42 ; Primary insomnia F51.01 ; Mixed hyperlipidemia E78.2 ; Dysthymic disorder F34.1 and Type 2 diabetes mellitus with diabetic chronic kidney disease E11.22 [facility] [id number] [place] [address] 41878- 7814 Sep, Chronic pain G89.29 [facility] [id number] [place] [address] 70988- 2075 Sep, Acute on chronic heart failure, unspecified heart failure type I50.9 [facility] [id number] [place] [address] 54601- 8491 Sep, Acute on chronic heart failure, unspecified heart failure type I50.9 ; Type 2 diabetes mellitus with diabetic chronic kidney disease E11.22 and BMI 50.0-59.9, adult Z68.43 [facility] [id number] [place] [address] 08756- 9085 Sep, Acute on chronic heart failure, unspecified heart failure type I50.9 ; HTN (hypertension) I10 and Type 2 diabetes mellitus with diabetic chronic kidney disease E11.22 [facility] [id number] [place] [address] 63298- 7399 Aug, Acute on chronic heart failure, unspecified heart failure type I50.9 ; HTN (hypertension) I10 ; Type 2 diabetes mellitus with diabetic chronic kidney disease E11.22 ; Cellulitis of right lower extremity L03.115 and BMI 50.0-59.9, adult Z68.43 [facility] [id number] [place] [address] 75620 -9642 Aug, Acute upper respiratory infection, unspecified J06.9 ; Other viral agents as the cause of diseases classified elsewhere B97.89 ; Constipation, unspecified constipation type K59.00 ; BMI 50.0-59.9, adult Z68.43 and BMI 60.0-69.9, adult Z68.44 [facility] [address], [place] [address]- 8098 Aug, Chronic pain G89.29 [facility] [id number] [address]- 4123 Jul, Chronic pain G89.29 [facility] [id number] [place] [address] 75134- 8911 Jul, Chronic pain G89.29 [facility] [id number] [place] [address] 73018- 9827 Jun, Chronic pain G89.29 [facility] [id number] [place] [address] 39215- 2242 Jun, [facility] [id number] [place] [address] 14561- 3398 Jun, Chronic pain G89.29 [facility] [id number] [place] [address] 13943- 9001 May, Chronic pain G89.29 and Type 2 diabetes mellitus with diabetic chronic kidney disease E11.22 [facility] [id number] [place] [address] 40027- 3049 16 May, 2017 [facility] [id number] [place] [address] 08809- 0219 May, Chronic pain G89.29 and Anxiety F41.9 [place] [id number] [place] [address] 51691- 9555 May, Type 2 diabetes mellitus with diabetic chronic kidney disease E11.22 ; Social phobia F40.10 ; Morbid obesity E66.01 ; Chronic pain G89.29 ; HTN (hypertension) I10 ; Degenerative disc disease at L5-S1 level M51.36 ; BPH (benign prostatic hyperplasia) N40.0 ; Pain in right knee M25.561 and 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 [facility] [id number] [place] [address] 80523- 7668 Apr, Anxiety F41.9 [facility] [id number] [place] [address] 06980- 3035 Apr, [facility] [id number] [place] [address] 04756- 3562 Mar, [facility] [id number] [place] [address] 02840- 6603 Mar, Edema, unspecified type R60.9 and Anxiety F41.9 [facility] [id number] [place] [address] 30029- 3178 Mar, Social phobia F40.10 ; Mixed obsessional thoughts and acts F42.2 and Mild episode of recurrent major depressive disorder F33.0 [facility] [id number] [place] [address] 25775- 3377 Mar, Degenerative disc disease at L5-S1 level M51.36 [facility] [address] 94544- 2417 Mar, [facility] [address] 04809- 0870 Mar, [facility] [id number] [place] [address] 07682- 8830 Mar, [facility] [id number] [place] [address] 87393- 5539 February, Morbid obesity E66.01 ; Anxiety F41.9 ; Degenerative disc disease at L5-S1 level M51.36 ; BPH (benign prostatic hyperplasia) N40.0 ; Social phobia F40.10 ; HTN (hypertension) I10 ; Edema, unspecified type R60.9 and Screening cholesterol level Z13.220 [facility] [id number] [place] [address] 06113- 8760 February, Social phobia, generalized F40.11 [facility] [id number] [place] [address] 35031- 3460 February, Chronic pain G89.29 [facility] [id number] [place] [address] 01229- 3910 February, [facility] [address] 06325- 9228 Jan, Chronic pain G89.29 [facility] [id number] [place] [address] 04087- 0615 04 Jan, 2017 Panic disorder [episodic paroxysmal anxiety] without agoraphobia F41.0 [facility] [id number] [place] [address] 85142- 3042 13 Dec, 2016 Morbid obesity E66.01 ; Anxiety F41.9 ; Chronic pain G89.29 ; HTN (hypertension) I10 ; BPH (benign prostatic hyperplasia) N40.0 ; Generalized edema R60.1 and Cough R05 [facility] [id number] [place] [address] 97248- 6317 14 Nov, 2016 Chronic pain G89.29 [facility] [id number] [place] [address] 43869- 8730 03 Nov, 2016 Social phobia, generalized F40.11 and Mild episode of recurrent major depressive disorder F33.0 [facility] [id number] [place] [address] 34715- 3038 Oct, Chronic pain G89.29 [facility] [id number] [place] [address] 20755- 7194 Oct, Social phobia, generalized F40.11 [facility] [id number] [place] [address] 94509- 3816 Sep, [facility] [id number] [place] [address] 62485- 9662 Sep, [facility] [id number] [place] [address] 21913- 3363 Sep, [facility] [id number] [place] [address] 58528- 4988 Sep, [facility] [id number] [place] [address] 15950- 2397 Sep, [facility] [address] 65856- 0561 16 Sep, 2016 Social phobia, generalized F40.11 and Mild episode of recurrent major depressive disorder F33.0 [facility] [id number] [place] [address] 75761- 1464 08 Sep, 2016 [facility] [id number] [place] [address] 46332- 0669 Aug, [facility] [address] 29753- 2922 Aug, [facility] [id number] [place] [address] 30039- 7988 17 Aug, 2016 Bronchitis J40 [facility] [id number] [place] [address] 32900- 6606 15 Aug, 2016 [facility] [id number] [place] [address] 93622- 1919 10 Aug, 2016 Osteoarthritis of knee, unspecified M17.9 [facility] [id number] [place] [address] 25205- 5430 09 Aug, 2016 Morbid obesity E66.01 ; Chronic pain G89.29 ; Anxiety F41.9 ; Social phobia F40.10 ; HTN (hypertension) I10 ; Social phobia, generalized F40.11 ; Acute upper respiratory infection, unspecified J06.9 and Other viral agents as the cause of diseases classified elsewhere B97.89 [facility] [id number] [place] [address] 83422- 4612 Aug, Social phobia, generalized F40.11 and Dysthymic disorder F34.1 [facility] [id number] [place] [address] 45230- 1396 Jul, [facility] [id number] [place] [address] 41725- 0673 Jun, [facility] [id number] [place] [address] 12645- 2238 May, [facility] [id number] [place] [address] [place] [address]- 1397 May, [facility] [address], [place] [address]- 0917 May, [facility] [address], [place] [address]- 6069 May, [facility] [id number] [place] [address] 89285- 2778 May, [facility] [id number] [place] [address] 80384- 5956 May, [facility] [id number] [place] [address] 24806- 2463 May, [facility] [id number] [place] [address] 46941- 6242 Apr, [facility] [id number] [place] [address] 25910- 4848 Apr, Chondromalacia, right knee M94.261 [facility] [id number] [place] [address] 77162- 4204 Apr, Pain in unspecified hip M25.559 [facility] [id number] [place] [address] 65843- 3029 Mar, Social phobia, unspecified F40.10 and Pain in unspecified hip M25.559 [facility] [address], [place] [address]- 1703 February, [facility] [address], [place] [address]- 4551 February, Social phobia F40.10 [facility] [address], [place] [address]- 2856 February, Morbid obesity E66.01 ; Chronic pain G89.29 ; Social phobia F40.10 ; Pelvic pain in male R10.2 ; HTN (hypertension) I10 ; Degenerative disc disease at L5-S1 level M51.36 ; BPH (benign prostatic hyperplasia) N40.0 and Pain in right knee M25.561 [facility] [id number] [place] [address] 51907- 3643 14 Jan, 2016 [facility] [id number] [place] [address] 03165- 3177 Jan, [facility] [id number] [place] [address] 93817- 9053 Jan, [facility] [address] 00762- 9461 Dec, [facility] [address] 14117- 7505 Dec, [facility] [address] 47447- 1654 Dec, [facility] [address] 63986 -7486 Nov, Strep pharyngitis J02.0 ; Influenza A J10.1 and Cough R05 [place] [id number] [place] [address] 06025- 1138 Nov, [facility] [id number] [place] [address] 50055- 7298 Nov, [facility] [facility] [id number] [place] [address] 72410- 9518 Oct, HTN (hypertension) I10 ; Morbid obesity E66.01 ; Anxiety F41.9 ; Social phobia F40.10 ; Panic disorder F41.0 ; Degenerative disc disease at L5-S1 level M51.36 and Hypercholesterolemia E78.0 [facility] [address] 20750- 4499 Oct, Panic disorder [episodic paroxysmal anxiety] without agoraphobia F41.0 and Social phobia, generalized F40.11 [place] [id number] [place] [address] 96694- 7270 Oct, [facility] [address], [place] [address]- 7490 Sep, [facility] [id number] [place] [address] 40792- 9382 Sep, [facility] [id number] [place] [address] 20374- 2546 Sep, [facility] [id number] [place] [address] 81676- 1611 Sep, [facility] [id number] [place] [address] 98316- 5720 Aug, [facility] [id number] [place] [address] 40144- 0917 Aug, [facility] [id number] [place] [address] 76454- 9149 Aug, [facility] [id number] [place] [address] 66532- 6084 Aug, Social phobia F40.10 and Panic disorder F41.0 [facility] [id number] [place] [address] 27888- 3285 Aug, [facility] [id number] [place] [address] 47325- 0768 Aug, [facility] [id number] [place] [address] 79313- 1841 Aug, [facility] [id number] [place] [address] 68610- 6413 Aug, [facility] [id number] [place] [address] 60970- 2721 Jul, [facility] [address], [place] [address]- 9075 Jul, Morbid obesity E66.01 ; Chronic pain G89.29 ; Anxiety F41.9 ; Social phobia F40.10 ; Panic disorder F41.0 ; Pelvic pain in male R10.2 ; Insomnia G47.00 and HTN (hypertension) I10 [facility] [id number] [place] [address] 96507- 1940 Jul, [facility] [id number] [place] [address] 87539- 5098 Jul, [facility] [id number] [place] [address] 18445- 9025 16 Jun, 2015 Degenerative disc disease 722.6 [facility] [address] 87564- 1906 Jun, Pain in joint, pelvic region and thigh 719.45 ; Morbid obesity 278.01 ; Essential hypertension, benign 401.1 and Constipation 564.00 [facility] [id number] [place] [address] 78625- 5663 May, [facility] [id number] [place] [address] 26704- 3723 May, [facility] [id number] [place] [address] 82976- 0996 May, [facility] [id number] [place] [address] 81527- 2975 May, [facility] [id number] [place] [address] 92556- 7779 May, [facility] [id number] [place] [address] [phone]- 5874 May, [facility] [id number] [place] [address] [id number]- 3777 May, Essential hypertension, benign 401.1 ; Anxiety state, unspecified 300.00 ; Panic disorder without agoraphobia 300.01 ; Social phobia 300.23 ; Morbid obesity 278.01 ; Other chronic pain 338.29 and Insomnia 780.52 [facility] [id number] [place] [address] [phone]- 2740 May, Essential hypertension 401.9 [facility] [id number], [place] [address] May, Pain in joint, pelvic region and thigh 719.45 [facility] [id number], [place] [address] May, Essential hypertension, benign 401.1 [facility] [id number] [place] [address] [phone]- 1138 May, Panic disorder without agoraphobia 300.01 and Social phobia 300.23 [facility] [id number] [address] May, [facility] [id number] [place] [address] [phone]- 6965 May, [facility] [id number] [place] [address] [id number]- 5709 Apr, Chronic pain 338.29 [facility] [id number] [address] Apr, [facility] [id number] [place] [address] 37264- [id number] Apr, [facility] [id number], [place] [address] Apr, [facility] [id number] [place] [address]- 1258 Apr, [facility] [id number] [address] Apr, [facility] [id number], [place] [address] Apr, [facility] [id number], [place] [address] Apr, [facility] [id number], [place] [address] Apr, Essential hypertension, benign 401.1 ; Morbid obesity 278.01 ; Anxiety state, unspecified 300.00 ; Panic disorder without agoraphobia 300.01 ; Social phobia 300.23 and Chronic pain 338.29 [facility] [id number] [place] [address] Mar, [facility] [id number] [place] [address]- 270[address] Mar, [facility] [address] [address] Mar, [facility] [id number] [place] [address]- 3866 Mar, [facility] [id number] [place] [address]- 5020 Mar, Social phobia 300.23 and Panic disorder without agoraphobia 300.01 [facility] [id number] [place] [address]- 2993 Mar, [facility] [id number] [place] [address]- [address]1 February, [facility] [address] [address] February, Major depression, recurrent 296.30 and No condition on Sheridan II V71.09 [facility] [id number] [place] [address]- 2179 February, [facility] [id number] [place] [address]- 6136 February, Panic disorder without agoraphobia 300.01 ; Social phobia 300.23 and Morbid obesity 278.01 [facility] [id number] [place] [address]- [address] Jan, [facility] [id number] [place] [address]- 2834 Jan, [facility] [address] [address] Dec, [facility] [address] [id number] [place] [address] Dec, [facility] [address] [id number], [place] [address] Dec, [facility] [address] [facility] [id number], [place] [address] Dec, [facility] [address] [id number] Dec, [facility] [address] [id number] [place] [address] Dec, [facility] [address] [facility] [id number], [place] [address] Dec, [facility] [address] [facility] [id number], [place] [address] Dec, [facility] [address] [facility] [id number], [place] [address] Dec, [facility] [address] [facility] [id number], [place] [address] Dec, [facility] [address] [facility] [id number], [place] [address] Dec, [facility] [address] [facility] [id number], [place] [address] Dec, [facility] [address] [facility] [id number], [place] [address] Dec, [facility] [address] [facility] [id number], [place] [address] Dec, [facility] [address] [facility] [id number] [address] Dec, [facility] [address] [facility] [id number] [address] [address] Dec, IMMUNIZATIONS No Known Immunizations SOCIAL HISTORY Never Assessed REASON FOR VISIT Pain (acute) mouth. Dentist appt in July at [facility] for two teeth extractions. Pt says that [facility] instructed patient to see primary care for any pain.-awoods PLAN OF CARE Activity Details Follow Up prn Reason: VITAL SIGNS Height 73 in 2018-07-05 Weight 335.3 lbs 2018-07-05 Temperature 98.8 degrees Fahrenheit 2018-07-05 Heart Rate 88 bpm 2018-07-05 Respiratory Rate 20 2018-07-05 BMI 44.23 kg/m2 2018-07-05 Blood pressure systolic 112 mmHg 2018-07-05 Blood pressure diastolic 78 mmHg 2018-07-05 MEDICATIONS Medication Instructions Dosage Frequency Start Date End Date Duration Status Lift Chair/Recliner use to assist with position changes- sitting to standing May, Active Lisinopril 20 MG Orally Once a day 1 tablet 24h Active Blood Glucose Test - as directed Active Blood Glucose Monitor System w/Device as directed Active Levemir FlexTouch 100 UNIT/ML Subcutaneous Once a day Inject 10 units 24h Active Accu-Chek FastClix Lancets - subcutaneously 3 times a day to test blood sugars 8h Jun, Active Spironolactone 25 MG Orally Once a day 1 tablet 24h 30 Active Pen Garrison 31G X 8 MM as directed Jan, Active Metoprolol Succinate ER 100 MG TAKE ONE TABLET BY MOUTH ONCE DAILY Active Lasix 80 MG Orally Once a day 2 tablets 24h Active Pravastatin Sodium 10 MG TAKE ONE TABLET BY MOUTH ONCE DAILY Active Amoxicillin 500 mg Orally every 8 hrs 1 tablet 8h Jun, Jun, 10 day(s) Active ReliOn Pen Garrison 31G/8MM USE DIRECTED Active Potassium Chloride Kristen ER 20 MEQ TAKE TWO (2) TABLETS BY MOUTH ONCE DAILY Active RESULTS No Results PROCEDURES Procedure Date Ordered Result Body Site [facility] VISIT ESTABLISHED PATIENT Jul 05, 2018 INSTRUCTIONS MEDICATIONS ADMINISTERED No Known Medications [...]
--- OUTSIDE RECORDS SUMMARY | 2018-11-30 17:44 | XMS REPORT ---
Author Author CHARLOTTE HSU 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 Name Role Phone CHARLOTTE HSU Unavailable PROBLEMS Type Condition ICD9-CM Code [id number] Code Onset Dates Condition Status SNOMED Code Problem Type 2 diabetes mellitus with diabetic chronic kidney disease E11.22 Active 05753335 Problem Mixed hyperlipidemia E78.2 Active 107771860 Problem Primary insomnia F51.01 Active 7732333 Problem Major depressive disorder, recurrent, in full remission F33.42 Active 914486466 Problem Lymphedema I89.0 Active 833045515 Problem BMI 50.0-59.9, adult Z68.43 Active 535666532 Problem Constipation, unspecified constipation type K59.00 Active 48247801 Problem Chronic systolic congestive heart failure I50.22 Active 298112356 Problem Stasis dermatitis of both legs I87.2 Active 91330581 Problem Abnormal liver function test R94.5 Active 127885938 Problem Panic disorder F41.0 Active 100790555 Problem Controlled substance agreement terminated Z91.14 Active 181668778 Problem Cardiomegaly I51.7 Active 6878571 Problem Degenerative disc disease at L5-S1 level M51.36 Active 71921536 Problem BPH (benign prostatic hyperplasia) N40.0 Active 375245830 Problem Chronic pain G89.29 Active 71207003 Problem Dysthymic disorder F34.1 Active 54340546 Problem HTN (hypertension) I10 Active 07968322 Problem Mild episode of recurrent major depressive disorder F33.0 Active 458051239 ALLERGIES Substance Reaction Event Type Date Status Wellbutrin Unknown Non Drug Allergy Jun, Active ENCOUNTERS Encounter Location Date Diagnosis [facility] [address] [facility] [id number] [address] Aug, [facility] [address] [facility] [id number] [address] Jul, Chronic systolic congestive heart failure I50.22 and Mixed hyperlipidemia E78.2 [place] [address] 37732- 1882 Jun, [place] [address] 89016- 3786 Jun, Type 2 diabetes mellitus with diabetic chronic kidney disease E11.22 [place] [address] 83679- 1631 Jun, Onychomycosis B35.1 ; Self-care deficit for hygiene R46.0 and Nail hypertrophy L60.2 [place] [address] 58987- 8448 Jun, Dental examination Z01.20 [place] [address] 27017- 8477 Jun, Tooth infection K04.7 ; BMI 40.0-44.9, adult Z68.41 and Mouth pain K13.79 [place] [address] [place] [id number] [place] [address] 17443- 0596 Jun, Type 2 diabetes mellitus with diabetic chronic kidney disease E11.22 [place] [address] [place] [id number] [place] [address] 06887- 5354 May, Degenerative disc disease at L5-S1 level M51.36 ; Chronic pain G89.29 and BMI 40.0-44.9, adult Z68.41 [place] [address] [place] [id number] [place] [address] 20969- 9927 May, [place] [address] 68691- 4081 May, Type 2 diabetes mellitus with diabetic chronic kidney disease E11.22 [place] [address] [place] [id number] [place] [address] 41479- 4291 May, [place] [address] 57196- 5372 May, Degenerative disc disease at L5-S1 level M51.36 [place] [address] [address] 3694 May, [place] [address] [address] 8424 May, [place] [id number] [place] [address] 99550- 3021 May, [place] [address] [place] [id number] [place] [address] 62920- 5452 Apr, Type 2 diabetes mellitus with diabetic chronic kidney disease E11.22 ; Chronic pain G89.29 ; Major depressive disorder, recurrent, in full remission F33.42 ; HTN (hypertension) I10 ; Chronic systolic congestive heart failure I50.22 ; Mixed hyperlipidemia E78.2 and BMI 45.0-49.9, adult Z68.42 [place] [id number] [place] [address] 12057- 7838 Apr, Type 2 diabetes mellitus with diabetic chronic kidney disease E11.22 [place] [address] [place] [id number] [place] [address] 28181- 4966 17 Apr, 2018 Medicare annual wellness visit, [...] vaccine Z28.21 and Encounter for immunization Z23 [address] [address] Apr, [place] [id number] [place] [address] 82608- 5504 Mar, Type 2 diabetes mellitus with diabetic chronic kidney disease E11.22 [place] [id number] [place] [address] 88919- 4533 Mar, Chronic pain G89.29 [place] [address] [place] [id number] [place] [address] 48299- 3507 February, Chronic pain G89.29 ; Abnormal liver function test R94.5 and Degenerative disc disease at L5-S1 level M51.36 [place] [address] [place] [id number] [place] [address] 26134- 1705 Jan, [place] [address] [place] [id number] [place] [address] 53544- 2844 Jan, [place] [address] [place] [id number] [place] [address] 67324- 6078 Jan, [place] [address] [place] [id number] [place] [address] 63064- 7906 Jan, Abnormal liver function test R94.5 ; Dysthymic disorder F34.1 and Chronic pain G89.29 [place] [address] [place] [id number] [place] [address] 18922- 3707 Dec, [place] [address] [place] [id number] [place] [address] 34662- 5541 Dec, HTN (hypertension) I10 ; BMI 45.0-49.9, adult Z68.42 ; Chronic pain G89.29 ; Primary insomnia F51.01 ; Mixed hyperlipidemia E78.2 ; Dysthymic disorder F34.1 ; Type 2 diabetes mellitus with diabetic chronic kidney disease E11.22 ; Stasis dermatitis of both legs I87.2 and Chronic systolic congestive heart failure I50.22 [place] [address] [place] [id number] [place] [address] 59623- 2643 Dec, Chronic pain G89.29 [facility] [id number] [place] [address] 20308 -0816 Dec, Lymphedema I89.0 and Chronic systolic congestive heart failure I50.22 [place] [address] [address]- 6618 Dec, [place] [address] [place] [id number] [place] [address] 43221- 4929 Nov, Type 2 diabetes mellitus with diabetic chronic kidney disease E11.22 [place] [address] [place] [id number] [place] [address] 76332- 2980 Nov, Chronic pain G89.29 and Dysthymic disorder F34.1 [place] [address] [place] [id number] [place] [address] 92015- 7024 Nov, [place] [address] [place] [id number] [place] [address] 51882- 5672 Oct, HTN (hypertension) I10 ; Chronic pain G89.29 ; BMI 45.0-49.9 , adult Z68.42 ; Primary insomnia F51.01 ; Mixed hyperlipidemia E78.2 ; Dysthymic disorder F34.1 ; Type 2 diabetes mellitus with diabetic chronic kidney disease E11.22 ; Chronic congestive heart failure, unspecified congestive heart failure type I50.9 ; Acute non-recurrent maxillary sinusitis J01.00 and BMI 50.0-59.9, adult Z68.43 [place] [id number] [place] [address] 39535- 9710 Oct, HTN (hypertension) I10 and Dysthymic disorder F34.1 [place] [id number] [place] [address] 83522- 3136 Oct, [place] [id number] [place] [address] 55627- 5212 Oct, HTN (hypertension) I10 [place] [address] [place] [id number] [place] [address] 29603- 1819 Oct, Chronic pain G89.29 [place] [id number] [place] [address] 33795- 9995 Sep, [place] [address] [address]- 3221 Sep, HTN (hypertension) I10 ; Chronic pain G89.29 ; BMI 45.0-49.9 , adult Z68.42 ; Primary insomnia F51.01 ; Mixed hyperlipidemia E78.2 ; Dysthymic disorder F34.1 and Type 2 diabetes mellitus with diabetic chronic kidney disease E11.22 [place] [address] [place] [id number] [place] [address] 53107- 4756 Sep, Chronic pain G89.29 [place] [address] [place] [id number] [place] [address] 67655- 1655 Sep, Acute on chronic heart failure, unspecified heart failure type I50.9 [place] [address] [place] [id number] [place] [address] 80170- 6118 Sep, Acute on chronic heart failure, unspecified heart failure type I50.9 ; Type 2 diabetes mellitus with diabetic chronic kidney disease E11.22 and BMI 50.0-59.9, adult Z68.43 [place] [address] [place] [id number] [place] [address] 61921- 5856 Sep, Acute on chronic heart failure, unspecified heart failure type I50.9 ; HTN (hypertension) I10 and Type 2 diabetes mellitus with diabetic chronic kidney disease E11.22 [place] [address] [place] [address] 86423- 0649 Aug, Acute on chronic heart failure, unspecified heart failure type I50.9 ; HTN (hypertension) I10 ; Type 2 diabetes mellitus with diabetic chronic kidney disease E11.22 ; Cellulitis of right lower extremity L03.115 and BMI 50.0-59.9, adult Z68.43 [facility] [id number] [place] [address] 32172 -5321 Aug, Acute upper respiratory infection, unspecified J06.9 ; Other viral agents as the cause of diseases classified elsewhere B97.89 ; Constipation, unspecified constipation type K59.00 ; BMI 50.0-59.9, adult Z68.43 and BMI 60.0-69.9, adult Z68.44 [place] [address] [place] [id number] [place] [address] 38220- 2031 Aug, Chronic pain G89.29 [place] [address] [place] [id number] [place] [address] 50467- 4988 Jul, Chronic pain G89.29 [place] [address] 18013- 5756 Jul, Chronic pain G89.29 [place] [address] 87350- 1757 Jun, Chronic pain G89.29 [place] [address] 50545- 4908 18 Jun, 2017 [place] [address] 38583- 5844 Jun, Chronic pain G89.29 [place] [address] [place] [id number] [place] [address] 92763- 2149 May, Chronic pain G89.29 and Type 2 diabetes mellitus with diabetic chronic kidney disease E11.22 [place] [address] [place] [id number] [place] [address] 07105- 6378 16 May, 2017 [place] [address] [place] [id number] [place] [address] 88933- 1775 May, Chronic pain G89.29 and Anxiety F41.9 [place] [address] [place] [id number] [place] [address] 42296- 1160 May, Type 2 diabetes mellitus with diabetic chronic kidney disease E11.22 ; Social phobia F40.10 ; Morbid obesity E66.01 ; Chronic pain G89.29 ; HTN (hypertension) I10 ; Degenerative disc disease at L5-S1 level M51.36 ; BPH (benign prostatic hyperplasia) N40.0 ; Pain in right knee M25.561 and 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 [place] [address] [place] [id number] [place] [address] 67163- 7002 Apr, Anxiety F41.9 [place] [address] [address]- 9363 Apr, [place] [address] [place] [id number] [place] [address] 72156- 5673 Mar, [place] [address] [place] [id number] [place] [address] 51384- 7874 Mar, Edema, unspecified type R60.9 and Anxiety F41.9 [place] [address] [place] [id number] [place] [address] 18590- 1027 Mar, Social phobia F40.10 ; Mixed obsessional thoughts and acts F42.2 and Mild episode of recurrent major depressive disorder F33.0 [place] [address] [place] [id number] [place] [address] 03760- 2957 Mar, Degenerative disc disease at L5-S1 level M51.36 [place] [address] [place] [id number] [place] [address] 20845- 8539 Mar, [place] [address] [place] [id number] [place] [address] 99705- 0011 Mar, [place] [address] [place] [id number] [place] [address] 95551- 5977 Mar, [place] [id number] [place] [address] 05680- 1819 February, Morbid obesity E66.01 ; Anxiety F41.9 ; Degenerative disc disease at L5-S1 level M51.36 ; BPH (benign prostatic hyperplasia) N40.0 ; Social phobia F40.10 ; HTN (hypertension) I10 ; Edema, unspecified type R60.9 and Screening cholesterol level Z13.220 [place] [address] [place] [id number] [place] [address] 02593- 3138 February, Social phobia, generalized F40.11 [id number] [place] [address] 43657- 2122 February, Chronic pain G89.29 [facility] [address] [place] [id number] [place] [address] 01253- 8700 February, [facility] [address] [place] [id number] [place] [address] 72564- 7688 Jan, Chronic pain G89.29 [facility] [address] [place] [id number] [place] [address] 00135- 3085 04 Jan, 2017 Panic disorder [episodic paroxysmal anxiety] without agoraphobia F41.0 [place] [address] [place] [id number] [place] [address] 97510- 6246 13 Dec, 2016 Morbid obesity E66.01 ; Anxiety F41.9 ; Chronic pain G89.29 ; HTN (hypertension) I10 ; BPH (benign prostatic hyperplasia) N40.0 ; Generalized edema R60.1 and Cough R05 [place] [address] [place] [id number] [place] [address] 80314- 9026 14 Nov, 2016 Chronic pain G89.29 [facility] [address] [place] [id number] [place] [address] 81528- 8657 Nov, Social phobia, generalized F40.11 and Mild episode of recurrent major depressive disorder F33.0 [place] [address] [place] [id number] [place] [address] 35359- 1157 Oct, Chronic pain G89.29 [place] [address] [place] [id number] [place] [address] 11441- 8033 Oct, Social phobia, generalized F40.11 [place] [address] [place] [id number] [place] [address] 01294- 2390 Sep, [place] [address] [place] [id number] [place] [address] 05778- 7857 Sep, [facility] [address] [place] [id number] [place] [address] 95383- 3418 Sep, [place] [address] [place] [id number] [place] [address] 31158- 9431 Sep, [facility] [address] [place] [id number] [place] [address] 79880- 3153 Sep, [facility] [address] 06456- 7589 Sep, Social phobia, generalized F40.11 and Mild episode of recurrent major depressive disorder F33.0 [place] [address] [place] [id number] [place] [address] 52298- 1186 Sep, [facility] [address] [place] [id number] [place] [address] 54524- 5640 Aug, [place] [address] 23228- 1900 Aug, [place] [address] 74760- 1666 Aug, Bronchitis J40 [place] [address] 03886- 4801 15 Aug, 2016 [place] [address] [place] [id number] [place] [address] 40871- 6376 10 Aug, 2016 Osteoarthritis of knee, unspecified M17.9 [place] [address] [place] [id number] [place] [address] 96870- 7871 09 Aug, 2016 Morbid obesity E66.01 ; Chronic pain G89.29 ; Anxiety F41.9 ; Social phobia F40.10 ; HTN (hypertension) I10 ; Social phobia, generalized F40.11 ; Acute upper respiratory infection, unspecified J06.9 and Other viral agents as the cause of diseases classified elsewhere B97.89 [place] [address] [place] [id number] [place] [address] 77879- 9211 Aug, Social phobia, generalized F40.11 and Dysthymic disorder F34.1 [place] [address] [place] [id number] [place] [address] 17296- 6857 Jul, [facility] [address] [place] [id number] [place] [address] 17391- 5352 Jun, [facility] [address] [facility] [id number] [address]- 8661 May, [facility] [address] [facility] [id number] [address]- 5784 May, [facility] [address] [place] [id number] [address]- 5607 May, [facility] [address] [facility] [id number] [place] [address] 81560- 3209 May, [facility] [address] [facility] [id number] [address]- 0989 May, [facility] [address] [place] [id number] [place] [address] 00407- 5540 May, [facility] [address] [address]- 9724 May, [facility] [id number] [place] [address] 31311- 8680 Apr, [facility] [address] [place] [id number] [address]- 5439 Apr, Chondromalacia, right knee M94.261 [facility] [address] [address]- 6552 Apr, Pain in unspecified hip M25.559 [facility] [address] [address]- 0640 Mar, Social phobia, unspecified F40.10 and Pain in unspecified hip M25.559 [facility] [address] [address]- 2176 February, [facility] [address] [address]- 0396 February, Social phobia F40.10 [facility] [address] [address]- 4468 February, Morbid obesity E66.01 ; Chronic pain G89.29 ; Social phobia F40.10 ; Pelvic pain in male R10.2 ; HTN (hypertension) I10 ; Degenerative disc disease at L5-S1 level M51.36 ; BPH (benign prostatic hyperplasia) N40.0 and Pain in right knee M25.561 [facility] [address] [place] [id number] [place] [address] 28169- 5619 14 Jan, 2016 [facility] [address] 59600- 1038 Jan, [facility] [address] [place] [id number] [place] [address] 22917- 6285 Jan, [place] [address] 25028- 7826 Dec, [place] [address] [place] [id number] [place] [address] 20779- 2045 Dec, [facility] [address] 97506- 7479 Dec, [facility] [address] [place] [id number] [place] [address] 91238 -4281 Nov, Strep pharyngitis J02.0 ; Influenza A J10.1 and Cough R05 [place] [address] [place] [id number] [place] [address] 89011- 4847 Nov, [facility] [address] 73983- 6372 Nov, [facility] [address] [place] [id number] [place] [address] 49330- 6186 Oct, HTN (hypertension) I10 ; Morbid obesity E66.01 ; Anxiety F41.9 ; Social phobia F40.10 ; Panic disorder F41.0 ; Degenerative disc disease at L5-S1 level M51.36 and Hypercholesterolemia E78.0 [facility] [address] 62760- 7031 Oct, Panic disorder [episodic paroxysmal anxiety] without agoraphobia F41.0 and Social phobia, generalized F40.11 [facility] [address] [place] [id number] [place] [address] 24408- 5661 Oct, [facility] [address] [place] [id number] [place] [address] 95561- 9427 Sep, [facility] [address] 64119- 0615 Sep, [facility] [address] [place] [id number] [place] [address] 74259- 9424 Sep, [facility] [address] [place] [id number] [place] [address] 31865- 3695 Sep, [facility] [address] [id number] [place] [address] 36655- 7437 Aug, [facility] [address] [place] [id number] [place] [address] 01412- 2078 Aug, [facility] [address] [place] [id number] [place] [address] 96907- 8215 Aug, [facility] [address] [place] [id number] [place] [address] 47523- 2178 Aug, Social phobia F40.10 and Panic disorder F41.0 [facility] [id number] [place] [address] 11644- 0568 Aug, [facility] [address] [place] [id number] [place] [address] 49418- 1148 Aug, [facility] [id number] [place] [address] 94191- 2427 Aug, [facility] [id number] [place] [address] 76298- 9246 Aug, [facility] [id number] [place] [address] 79804- 7457 Jul, [facility] [id number] [place] [address] 19909- 0748 Jul, Morbid obesity E66.01 ; Chronic pain G89.29 ; Anxiety F41.9 ; Social phobia F40.10 ; Panic disorder F41.0 ; Pelvic pain in male R10.2 ; Insomnia G47.00 and HTN (hypertension) I10 [facility] [id number] [place] [address] 04955- 5155 Jul, [facility] [id number] [place] [address] 78575- 4214 Jul, [facility] [id number] [place] [address] 75247- 8503 Jun, Degenerative disc disease 722.6 [place] [address] [address] [id number] [place] [address] 41339- 8995 Jun, Pain in joint, pelvic region and thigh 719.45 ; Morbid obesity 278.01 ; Essential hypertension, benign 401.1 and Constipation 564.00 [facility] [id number] [place] [address] 91774- 1706 May, [facility] [id number] [place] [address] 12668- 7969 May, [facility] [id number] [place] [address] 07512- 0301 May, [facility] [id number] [place] [address] 53601- 1911 May, [facility] [id number] [place] [address] [id number]- 8013 May, [facility] [address] [address]74- [phone] May, [facility] [id number] [place] [address] 70764- 6213 May, Essential hypertension, benign 401.1 ; Anxiety state, unspecified 300.00 ; Panic disorder without agoraphobia 300.01 ; Social phobia 300.23 ; Morbid obesity 278.01 ; Other chronic pain 338.29 and Insomnia 780.52 [facility] [id number] [place] [address] 82067- 8816 May, Essential hypertension 401.9 [facility] [id number] [place] [address] [phone]- 6778 May, Pain in joint, pelvic region and thigh 719.45 [facility] [id number] [place] [address] 09564- 1687 May, Essential hypertension, benign 401.1 [facility] [id number] [place] [address] [phone]- [phone] May, Panic disorder without agoraphobia 300.01 and Social phobia 300.23 [facility] [id number] [place] [address] 98418- 8736 May, [facility] [id number] [place] [address] 17456- 4421 May, [facility] [id number] [place] [address] 89777- 5290 Apr, Chronic pain 338.29 [facility] [id number] [place] [address] 39412- 1820 Apr, [facility] [address] [address] Apr, [facility] [id number] [place] [address] [id number]- 8154 Apr, [facility] [id number] [place] [address] [id number]- 5661 Apr, [facility] [id number] [place] [address] 42567- [phone] Apr, [facility] [id number] [place] [address] 42790- 5148 Apr, [facility] [id number] [place] [address] 67440- 1540 Apr, [facility] [address] [id number] [place] [address]- 6659 Apr, Essential hypertension, benign 401.1 ; Morbid obesity 278.01 ; Anxiety state, unspecified 300.00 ; Panic disorder without agoraphobia 300.01 ; Social phobia 300.23 and Chronic pain 338.29 [facility] [address] [address] Mar, [facility] [id number] [place] [address] 22947- 8528 Mar, [facility] [address] [address]- [address] Mar, [facility] [id number] [place] [address] 23152- 3596 Mar, [facility] [id number] [place] [address] 35818- 7414 Mar, Social phobia 300.23 and Panic disorder without agoraphobia 300.01 [facility] [id number] [place] [address] 35344- 8124 Mar, [facility] [id number] [place] [address] 84518- 1008 February, [facility] [id number] [place] [address] 20172- 0258 February, Major depression, recurrent 296.30 and No condition on [place] II V71.09 [facility] [id number] [place] [address] [id number]- 0698 February, [facility] [id number] [place] [address] 43212- 0559 February, Panic disorder without agoraphobia 300.01 ; Social phobia 300.23 and Morbid obesity 278.01 [facility] [id number] [place] [address] 08939- 9992 Jan, [facility] [place] [facility] [address] [id number] [place] [address]69 13 Jan, 2015 [facility] [place] [facility] [address] [id number] [place] [address] 27 Dec, 2014 [facility] [place] [facility] [address] [id number] [place] [address] 8644 Dec, [facility] [place] [facility] [address] [id number] [place] [address]89 Dec, [facility] [place] [facility] [address] [id number] [place] [address] 8033 Dec, [facility] [place] [facility] [address] [id number] [place] [address] 9812 Dec, [facility] [place] [facility] [address] [id number] [place] [address] 6640 Dec, [facility] [place] [facility] [address] [id number] [place] [address] 7368 Dec, [facility] [place] [facility] [address] [id number] [place] [address] 4168 25 Dec, 2014 [facility] [place] [facility] [address] [id number] [place] [address] Dec, [facility] [place] [facility] [address] [id number] [place] [address] Dec, [facility] [place] [facility] [address] [id number] [place] [address] 13 Dec, 2014 [facility] [place] [facility] [address] [id number] [place] [address] 2707 13 Dec, 2014 [facility] [place] [facility] [address] [id number] [place] [address]- 3133 13 Dec, 2014 [facility] [place] [facility] [address] [id number] [place] [address] 13 Dec, 2014 [facility] [place] [facility] [address] [id number] [place] [address] Dec, [facility] [address] [facility] [id number] [place] [address] Dec, IMMUNIZATIONS No Known Immunizations SOCIAL HISTORY Never Assessed REASON FOR VISIT tooth pain/int. dent/fam. pract PLAN OF CARE Activity Details Follow Up hammad Reason:TE #15, VITAL SIGNS Height 73 in 2018-07-05 Blood pressure systolic 112 mmHg 2018-07-05 Blood pressure diastolic 78 mmHg 2018-07-05 MEDICATIONS Medication Instructions Dosage Frequency Start Date End Date Duration Status Levemir FlexTouch 100 UNIT/ML Subcutaneous Once a day Inject 10 units 24h Active Blood Glucose Monitor System w/Device as directed Active Lift Chair/Recliner use to assist with position changes- sitting to standing May, Active Lisinopril 20 MG Orally Once a day 1 tablet 24h Active Pravastatin Sodium 10 MG TAKE ONE TABLET BY MOUTH ONCE DAILY Active Potassium Chloride Kristen ER 20 MEQ TAKE TWO (2) TABLETS BY MOUTH ONCE DAILY Active Lasix 80 MG Orally Once a day 2 tablets 24h Active Blood Glucose Test - as directed Active Pen [place] 31G X 8 MM as directed Jan, Active ReliOn Pen [place] 31G/8MM USE DIRECTED Active Accu-Chek FastClix Lancets - subcutaneously 3 times a day to test blood sugars 8h Jun, Active Spironolactone 25 MG Orally Once a day 1 tablet 24h 30 Active Metoprolol Succinate ER 100 MG TAKE ONE TABLET BY MOUTH ONCE DAILY Active RESULTS No Results PROCEDURES Procedure Date Ordered Result Body Site INTRAORL-PERIAPICAL 1 FILM [id number] Jul 05, 2018 SCREENING OF A PATIENT Jul 05, 2018 Billing Notes on claim Jul 05, 2018 INSTRUCTIONS MEDICATIONS ADMINISTERED No [...]
[2018-11-30] MEDS ORDERED: OSLT75C PO (17:45)
--- NOTE | 2018-11-30 17:45 | ED Cough/URI ---
General Chief Complaint: Cough/Cold/Flu Symptoms Stated Complaint: COUGH,FEVER Nursing Triage Note: PT REPORTS COUGH WITH FEVER SINCE YESTERDAY. PT STATES COUGH HAS GOTTEN WORSE. Sepsis Screen: No Definite Risk Source: patient Exam Limitations: no limitations History of Present Illness Date Seen by Provider: Nov 30, 2018 Time Seen by Provider: 17:42 Initial Comments To ER with reports of a cough and fever since yesterday. Patient's daughter is also being evaluated for an illness with similar symptoms and just tested positive for influenza A. Timing/Duration: constant, getting worse Severity/Quality: productive cough Associated Symptoms: cough, fever/chills, muscle aches Allergies and Home Medications Allergies Coded Allergies: fluoxetine (Verified Allergy, Unknown, HEART FLUTTER, 02/23/18) Home Medications Cephalexin 500 Mg Capsule, 500 MG PO TID Prescribed by: Curtis PATINO on 02/24/18 1047 Furosemide 40 Mg Tablet, 80 MG PO DAILY, (Reported) TAKES 2 (40MG) TABLETS Insulin Detemir 100 Unit/1 Ml Insuln.pen, 10 UNITS SC HS, (Reported) Lisinopril 40 Mg Tablet, 40 MG PO DAILY, (Reported) Metoprolol Succinate 50 Mg Tab.er.24h, 50 MG PO DAILY, (Reported) Polyethylene Glycol 3350 255 Gm Powder, 17 GM PO DAILY PRN for CONSTIPATION-2ND LINE, (Reported) Potassium Chloride 20 Meq Tab.er.prt, 40 MEQ PO DAILY, (Reported) TAKES 2 (20MEQ) TABLETS Pravastatin Sodium 10 Mg Tablet, 10 MG PO DAILY, (Reported) Spironolactone 25 Mg Tablet, 25 MG PO DAILY, (Reported) Trazodone HCl 50 Mg Tablet, 50 MG PO HS PRN for SLEEP, (Reported) Patient Home Medication List Home Medication List Reviewed: Yes Review of Systems Review of Systems Constitutional: see HPI, chills EENTM: see HPI Respiratory: see HPI, cough Cardiovascular: no symptoms reported Genitourinary: no symptoms reported Musculoskeletal: no symptoms reported Skin: no symptoms reported Psychiatric/Neurological: No Symptoms Reported Hematologic/Lymphatic: No Symptoms Reported Immunological/Allergic: no symptoms reported Past Ydbemyw-Tsrope-Hkdnix Hx Patient Social History Alcohol Use: Denies Use Recreational Drug Use: No Type Used: Smokeless Tobacco 2nd Hand Smoke Exposure: No Recent Foreign Travel: No Contact w/Someone Who Travel: No Recent Infectious Disease Expo: No Recent Hopitalizations: No Physical Abuse: No Sexual Abuse: No Seasonal Allergies Seasonal Allergies: No Past Medical History Surgeries: Yes Pacemaker Respiratory: No Cardiac: Yes Hypertension Neurological: No Reproductive Disorders: No Genitourinary: No Gastrointestinal: No Musculoskeletal: Yes Rheumatoid Arthritis Endocrine: Yes HEENT: No Cancer: No Psychosocial: Yes Anxiety, Depression Integumentary: No Blood Disorders: No Adverse Reaction/Blood Tranf: No Family Medical History Cystic fibrosis FH: CABG (coronary artery bypass surgery) 19 FATHER FH: arrhythmia 19 MOTHER FH: congestive heart failure 19 FATHER G8 SISTER Myocardial infarction 19 FATHER Physical Exam Vital Signs - First Documented 11/30/18 17:15 Temp 96.7 Pulse 62 Resp 18 B/P (MAP) 123/74 (90) Pulse Ox 97 Capillary Refill : Less Than 3 Seconds Height: 6'0" Weight: 330lbs. 4.0oz. 149.450307yx; 47.5 BMI Method:Stated General Appearance: WD/WN, no apparent distress Eyes: Bilateral Eye Normal Inspection, Bilateral Eye PERRL, Bilateral Eye EOMI HEENT: PERRL/EOMI, normal ENT inspection, TMs normal Neck: non-tender, full range of motion Respiratory: normal breath sounds, no respiratory distress, no accessory muscle use Cardiovascular: regular rate, rhythm, no murmur Gastrointestinal: normal bowel sounds, non tender, soft Neurologic/Psychiatric: alert, normal mood/affect, oriented x 3 Skin: normal color, warm/dry Progress/Results/Core Measures Suspected Sepsis Recent Fever Within 48 Hours: No Infection Criteria Present: None New/Unexplained Altered Menta: No Sepsis Screen: No Definite Risk SIRS Temperature:96.7 Pulse: 62 Respiratory Rate: 18 Blood Pressure 123 /74 Mean: 90 Results/Orders My Orders Orders - MARIANN OJEDA APRN Influenza A And B Antigens (11/30/18 17:18) Chest Pa/Lat (2 View) (11/30/18 17:18) Vital Signs/I&O 11/30/18 17:15 Temp 96.7 Pulse 62 Resp 18 B/P (MAP) 123/74 (90) Pulse Ox 97 Capillary Refill : Less Than 3 Seconds Blood Pressure Mean: 90 Departure Impression Primary Impression: Influenza A Disposition: 01 HOME, SELF-CARE Condition: Stable Departure-Patient Inst. Decision time for Depature: 17:43 Referrals: [facility] (PCP/Family) Primary Care Physician Patient Instructions: Flu, Adult (DC) Add. Discharge Instructions: 1. Tylenol and Motrin for fever control 2. Return to ER for any concerns 3. All discharge instructions reviewed with patient and/or family. Voiced understanding. Scripts Oseltamivir Phosphate (Tamiflu) 75 Mg Cap 75 MG PO BID, #10 CAP Prov: MARIANN OJEDA DRY KILN OPERATOR 11/30/18 MARIANN OJEDA APRN Nov 30, 2018 17:45
--- OUTSIDE RECORDS SUMMARY | 2018-11-30 17:45 | XMS REPORT ---
Author Author ROSE MARY BUCKNER [facility] Address [address] [place] [address] Care Team Providers Care Lubricating Specialist Name Role Phone ISA BUCKNERTA Unavailable PROBLEMS Type Condition ICD9-CM Code [id number] Code Onset Dates Condition Status SNOMED Code Problem Type 2 diabetes mellitus with diabetic chronic kidney disease E11.22 Active 88807726 Problem Mixed hyperlipidemia E78.2 Active 526855842 Problem Primary insomnia F51.01 Active 4750271 Problem Major depressive disorder, recurrent, in full remission F33.42 Active 149535294 Problem Lymphedema I89.0 Active 278905801 Problem BMI 50.0-59.9, adult Z68.43 Active 624887028 Problem Constipation, unspecified constipation type K59.00 Active 83162454 Problem Chronic systolic congestive heart failure I50.22 Active 889446111 Problem Stasis dermatitis of both legs I87.2 Active 76388240 Problem Abnormal liver function test R94.5 Active 121444939 Problem Panic disorder F41.0 Active 130366646 Problem Controlled substance agreement terminated Z91.14 Active 507545368 Problem Cardiomegaly I51.7 Active 1519393 Problem Degenerative disc disease at L5-S1 level M51.36 Active 84134986 Problem BPH (benign prostatic hyperplasia) N40.0 Active 183928536 Problem Chronic pain G89.29 Active 53388613 Problem Dysthymic disorder F34.1 Active 86317190 Problem HTN (hypertension) I10 Active 48753949 Problem Mild episode of recurrent major depressive disorder F33.0 Active 058730377 ALLERGIES Substance Reaction Event Type Date Status Wellbutrin Unknown Non Drug Allergy May, Active ENCOUNTERS Encounter Location Date Diagnosis [facility] [address] [facility] [id number] [address] Aug, [facility] [address] [facility] [id number], [place] [address] Jun, [facility] [address] [id number] [place] [address] 87140- 2486 Jun, Type 2 diabetes mellitus with diabetic chronic kidney disease E11.22 [facility] [address] [id number] [place] [address] 71565- 0700 Jun, Onychomycosis B35.1 ; Self-care deficit for hygiene R46.0 and Nail hypertrophy L60.2 [facility] [address] 43676- 0713 Jun, Dental examination Z01.20 [facility] [place] [id number] [place] [address] 43000- 6076 Jun, Tooth infection K04.7 ; BMI 40.0-44.9, adult Z68.41 and Mouth pain K13.79 [facility] [place] [id number] [place] [address] 88307- 4607 Jun, Type 2 diabetes mellitus with diabetic chronic kidney disease E11.22 [facility] [place] [id number] [place] [address] 14135- 2464 May, Degenerative disc disease at L5-S1 level M51.36 ; Chronic pain G89.29 and BMI 40.0-44.9, adult Z68.41 [facility] [place] [id number] [place] [address] 63701- 7065 May, [facility] [place] [id number] [place] [address] 95863- 1521 May, Type 2 diabetes mellitus with diabetic chronic kidney disease E11.22 [facility] [place] [id number] [place] [address] 65785- 8889 May, [facility] [place] [id number] [place] [address] 23682- 9881 May, Degenerative disc disease at L5-S1 level M51.36 [facility] [place] [id number] [place] [address] 92124- 6746 May, [facility] [address] [place] [id number] [address] 9649 May, [facility] [address] [address] 3738 May, [facility] [address] [address] 8157 Apr, Type 2 diabetes mellitus with diabetic chronic kidney disease E11.22 ; Chronic pain G89.29 ; Major depressive disorder, recurrent, in full remission F33.42 ; HTN (hypertension) I10 ; Chronic systolic congestive heart failure I50.22 ; Mixed hyperlipidemia E78.2 and BMI 45.0-49.9, adult Z68.42 [facility] [place] [address] [place] [address] 04122- 9273 Apr, Type 2 diabetes mellitus with diabetic chronic kidney disease E11.22 [facility] [place] [address] [place] [address] 24375- 8948 17 Apr, 2018 Medicare annual wellness visit, [...] and Encounter for immunization Z23 [facility] [address] [id number] [address] 3755 Apr, [facility] [id number] [place] [address] 80343- 8510 Mar, Type 2 diabetes mellitus with diabetic chronic kidney disease E11.22 [facility] [address] [address] 9425 Mar, Chronic pain G89.29 [facility] [id number] [place] [address] 06452- 4146 February, Chronic pain G89.29 ; Abnormal liver function test R94.5 and Degenerative disc disease at L5-S1 level M51.36 [facility] [id number] [place] [address] 57123- 0584 Jan, [facility] [id number] [place] [address] 06334- 3900 Jan, [facility] [id number] [place] [address] 03194- 6282 Jan, [facility] [place] [id number] [place] [address] 04384- 0129 Jan, Abnormal liver function test R94.5 ; Dysthymic disorder F34.1 and Chronic pain G89.29 [facility] [id number] [place] [address] 28539- 2926 Dec, [facility] [place] [id number] [place] [address] 21334- 6609 Dec, HTN (hypertension) I10 ; BMI 45.0-49.9, adult Z68.42 ; Chronic pain G89.29 ; Primary insomnia F51.01 ; Mixed hyperlipidemia E78.2 ; Dysthymic disorder F34.1 ; Type 2 diabetes mellitus with diabetic chronic kidney disease E11.22 ; Stasis dermatitis of both legs I87.2 and Chronic systolic congestive heart failure I50.22 [facility] [address] [address] 9384 Dec, Chronic pain G89.29 [facility] [id number] [place] [address] 75347 -2036 Dec, Lymphedema I89.0 and Chronic systolic congestive heart failure I50.22 [facility] [id number] [place] [address] 71730- 3597 Dec, [facility] [id number] [place] [address] 59156- 6345 26 Nov, 2017 Type 2 diabetes mellitus with diabetic chronic kidney disease E11.22 [facility] [place] [id number] [place] [address] 54712- 8848 12 Nov, 2017 Chronic pain G89.29 and Dysthymic disorder F34.1 [facility] [place] [id number] [place] [address] 59568- 9406 08 Nov, 2017 [place] [place] [id number] [place] [address] 81953- 6522 Oct, HTN (hypertension) I10 ; Chronic pain G89.29 ; BMI 45.0-49.9 , adult Z68.42 ; Primary insomnia F51.01 ; Mixed hyperlipidemia E78.2 ; Dysthymic disorder F34.1 ; Type 2 diabetes mellitus with diabetic chronic kidney disease E11.22 ; Chronic congestive heart failure, unspecified congestive heart failure type I50.9 ; Acute non-recurrent maxillary sinusitis J01.00 and BMI 50.0-59.9, adult Z68.43 [facility] [place] [id number] [place] [address] 67144- 9749 Oct, HTN (hypertension) I10 and Dysthymic disorder F34.1 [place] [id number] [place] [address] 85025- 1186 Oct, [place] [place] [id number] [place] [address] 80343- 2509 Oct, HTN (hypertension) I10 [facility] [id number] [place] [address] 03003- 3089 Oct, Chronic pain G89.29 [place] [id number] [place] [address] 55051- 5660 Sep, [place] [id number] [place] [address] 54166- 4603 Sep, HTN (hypertension) I10 ; Chronic pain G89.29 ; BMI 45.0-49.9 , adult Z68.42 ; Primary insomnia F51.01 ; Mixed hyperlipidemia E78.2 ; Dysthymic disorder F34.1 and Type 2 diabetes mellitus with diabetic chronic kidney disease E11.22 [place] [address] [place] [address] 14337- 6808 Sep, Chronic pain G89.29 [facility] [place] [address] [place] [address] 19627- 3696 Sep, Acute on chronic heart failure, unspecified heart failure type I50.9 [facility] [place] [id number] [place] [address] 13719- 7934 Sep, Acute on chronic heart failure, unspecified heart failure type I50.9 ; Type 2 diabetes mellitus with diabetic chronic kidney disease E11.22 and BMI 50.0-59.9, adult Z68.43 [facility] [place] [id number] [place] [address] 49303- 4594 Sep, Acute on chronic heart failure, unspecified heart failure type I50.9 ; HTN (hypertension) I10 and Type 2 diabetes mellitus with diabetic chronic kidney disease E11.22 [facility] [place] [id number] [place] [address] 63336- 3451 Aug, Acute on chronic heart failure, unspecified heart failure type I50.9 ; HTN (hypertension) I10 ; Type 2 diabetes mellitus with diabetic chronic kidney disease E11.22 ; Cellulitis of right lower extremity L03.115 and BMI 50.0-59.9, adult Z68.43 [facility] [id number] [place] [address] 76771 -0752 Aug, Acute upper respiratory infection, unspecified J06.9 ; Other viral agents as the cause of diseases classified elsewhere B97.89 ; Constipation, unspecified constipation type K59.00 ; BMI 50.0-59.9, adult Z68.43 and BMI 60.0-69.9, adult Z68.44 [place] [address] [address]- 2930 Aug, Chronic pain G89.29 [place] [address] [id number] [address]- 2656 Jul, Chronic pain G89.29 [facility] [id number] [place] [address] 07252- 5668 Jul, Chronic pain G89.29 [facility] [id number] [place] [address] 31761- 9277 Jun, Chronic pain G89.29 [place] [id number] [place] [address] 27760- 2777 Jun, [place] [id number] [place] [address] 39841- 7304 Jun, Chronic pain G89.29 [place] [id number] [place] [address] 95975- 3154 May, Chronic pain G89.29 and Type 2 diabetes mellitus with diabetic chronic kidney disease E11.22 [facility] [id number] [place] [address] 42698- 4660 16 May, 2017 [facility] [place] [id number] [place] [address] 97502- 1851 May, Chronic pain G89.29 and Anxiety F41.9 [place] [id number] [place] [address] 67611- 6842 May, Type 2 diabetes mellitus with diabetic chronic kidney disease E11.22 ; Social phobia F40.10 ; Morbid obesity E66.01 ; Chronic pain G89.29 ; HTN (hypertension) I10 ; Degenerative disc disease at L5-S1 level M51.36 ; BPH (benign prostatic hyperplasia) N40.0 ; Pain in right knee M25.561 and 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 [place] [id number] [place] [address] 29632- 9799 Apr, Anxiety F41.9 [place] [id number] [place] [address] 05592- 8455 Apr, [place] [id number] [place] [address] 49744- 6500 Mar, [place] [id number] [place] [address] 82214- 5360 Mar, Edema, unspecified type R60.9 and Anxiety F41.9 [place] [id number] [place] [address] 47514- 4043 Mar, Social phobia F40.10 ; Mixed obsessional thoughts and acts F42.2 and Mild episode of recurrent major depressive disorder F33.0 [place] [id number] [place] [address] 82720- 9245 Mar, Degenerative disc disease at L5-S1 level M51.36 [place] [address] 33346- 5606 Mar, [place] [address] 11783- 3637 Mar, [place] [id number] [place] [address] 77168- 6048 Mar, [place] [id number] [place] [address] 66699- 2070 February, Morbid obesity E66.01 ; Anxiety F41.9 ; Degenerative disc disease at L5-S1 level M51.36 ; BPH (benign prostatic hyperplasia) N40.0 ; Social phobia F40.10 ; HTN (hypertension) I10 ; Edema, unspecified type R60.9 and Screening cholesterol level Z13.220 [place] [id number] [place] [address] 12724- 2599 February, Social phobia, generalized F40.11 [place] [id number] [place] [address] 32564- 9996 February, Chronic pain G89.29 [place] [id number] [place] [address] 24449- 5730 February, [place] [address] 48589- 6211 Jan, Chronic pain G89.29 [facility] [id number] [place] [address] 89203- 3119 04 Jan, 2017 Panic disorder [episodic paroxysmal anxiety] without agoraphobia F41.0 [facility] [id number] [place] [address] 24845- 8801 13 Dec, 2016 Morbid obesity E66.01 ; Anxiety F41.9 ; Chronic pain G89.29 ; HTN (hypertension) I10 ; BPH (benign prostatic hyperplasia) N40.0 ; Generalized edema R60.1 and Cough R05 [place] [id number] [place] [address] 38683- 9845 14 Nov, 2016 Chronic pain G89.29 [facility] [id number] [place] [address] 96164- 0223 03 Nov, 2016 Social phobia, generalized F40.11 and Mild episode of recurrent major depressive disorder F33.0 [facility] [id number] [place] [address] 05262- 5777 Oct, Chronic pain G89.29 [facility] [id number] [place] [address] 85200- 7893 Oct, Social phobia, generalized F40.11 [facility] [id number] [place] [address] 55156- 0460 Sep, [facility] [id number] [place] [address] 96489- 1054 Sep, [facility] [id number] [place] [address] 01626- 0968 Sep, [facility] [id number] [place] [address] 07380- 6097 Sep, [facility] [id number] [place] [address] 60398- 2226 Sep, [facility] [address] 95033- 3368 16 Sep, 2016 Social phobia, generalized F40.11 and Mild episode of recurrent major depressive disorder F33.0 [place] [id number] [place] [address] 51814- 4844 08 Sep, 2016 [facility] [id number] [place] [address] 63280- 4441 Aug, [place] [address] 09242- 1262 Aug, [place] [id number] [place] [address] 70567- 2481 17 Aug, 2016 Bronchitis J40 [place] [id number] [place] [address] 27963- 9129 15 Aug, 2016 [place] [id number] [place] [address] 02534- 8897 10 Aug, 2016 Osteoarthritis of knee, unspecified M17.9 [place] [id number] [place] [address] 13556- 2496 09 Aug, 2016 Morbid obesity E66.01 ; Chronic pain G89.29 ; Anxiety F41.9 ; Social phobia F40.10 ; HTN (hypertension) I10 ; Social phobia, generalized F40.11 ; Acute upper respiratory infection, unspecified J06.9 and Other viral agents as the cause of diseases classified elsewhere B97.89 [place] [id number] [place] [address] 29823- 3926 Aug, Social phobia, generalized F40.11 and Dysthymic disorder F34.1 [place] [id number] [place] [address] 66986- 7746 Jul, [place] [id number] [place] [address] 62311- 3289 Jun, [place] [id number] [place] [address] 37827- 5312 May, [place] [id number] [place] [address] [place] [address]- 8154 May, [facility] [address] [address]- 7717 May, [facility] [address], [place] [address]- 4531 May, [facility] [id number] [place] [address] 21848- 8533 May, [facility] [id number] [place] [address] 18928- 5550 May, [facility] [id number] [place] [address] 47089- 8286 May, [facility] [id number] [place] [address] 82492- 8401 Apr, [facility] [id number] [place] [address] 38203- 5982 Apr, Chondromalacia, right knee M94.261 [facility] [address] [place] [address] 72397- 3076 Apr, Pain in unspecified hip M25.559 [facility] [address] [place] [address] 67468- 2920 Mar, Social phobia, unspecified F40.10 and Pain in unspecified hip M25.559 [facility] [address] [address]- 2939 February, [facility] [address], [place] [address]- 1412 February, Social phobia F40.10 [facility] [address], [place] [address]- 8246 February, Morbid obesity E66.01 ; Chronic pain G89.29 ; Social phobia F40.10 ; Pelvic pain in male R10.2 ; HTN (hypertension) I10 ; Degenerative disc disease at L5-S1 level M51.36 ; BPH (benign prostatic hyperplasia) N40.0 and Pain in right knee M25.561 [facility] [id number] [place] [address] 39724- 0402 14 Jan, 2016 [facility] [id number] [place] [address] 10470- 0046 Jan, [facility] [id number] [place] [address] 13876- 6506 Jan, [facility] [address] 58294- 8082 Dec, [facility] [address] 72381- 4495 Dec, [facility] [address] 48890- 6465 Dec, [facility] [address] 99506 -9146 Nov, Strep pharyngitis J02.0 ; Influenza A J10.1 and Cough R05 [place] [id number] [place] [address] 42258- 6777 Nov, [facility] [id number] [place] [address] 03121- 8303 Nov, [place] [id number] [place] [address] 23486- 7620 Oct, HTN (hypertension) I10 ; Morbid obesity E66.01 ; Anxiety F41.9 ; Social phobia F40.10 ; Panic disorder F41.0 ; Degenerative disc disease at L5-S1 level M51.36 and Hypercholesterolemia E78.0 [facility] [address] 46501- 1116 Oct, Panic disorder [episodic paroxysmal anxiety] without agoraphobia F41.0 and Social phobia, generalized F40.11 [place] [id number] [place] [address] 85392- 4632 Oct, [facility] [address] [address]- 2097 Sep, [facility] [id number] [place] [address] 09791- 7603 Sep, [facility] [id number] [place] [address] 20158- 5336 Sep, [facility] [id number] [place] [address] 48069- 5802 Sep, [facility] [id number] [place] [address] 80175- 0373 Aug, [facility] [id number] [place] [address] 76714- 0008 Aug, [facility] [id number] [place] [address] 58277- 6710 Aug, [facility] [id number] [place] [address] 48401- 5839 Aug, Social phobia F40.10 and Panic disorder F41.0 [facility] [id number] [place] [address] 49261- 7876 Aug, [facility] [id number] [place] [address] 89868- 2986 Aug, [facility] [id number] [place] [address] 70190- 4262 Aug, [facility] [id number] [place] [address] 23148- 1724 Aug, [facility] [address] [place] [address] 20019- 2017 Jul, [facility] [address] [address]- 7685 Jul, Morbid obesity E66.01 ; Chronic pain G89.29 ; Anxiety F41.9 ; Social phobia F40.10 ; Panic disorder F41.0 ; Pelvic pain in male R10.2 ; Insomnia G47.00 and HTN (hypertension) I10 [facility] [id number] [place] [address] 06516- 5651 Jul, [facility] [id number] [place] [address] 59328- 7250 Jul, [facility] [id number] [place] [address] [id number]- [phone] 16 Jun, 2015 Degenerative disc disease 722.6 [facility] [address] [address]- [address] Jun, Pain in joint, pelvic region and thigh 719.45 ; Morbid obesity 278.01 ; Essential hypertension, benign 401.1 and Constipation 564.00 [facility] [id number] [place] [address] 41963- 4156 May, [facility] [id number] [place] [address] [phone]- 0562 May, [facility] [id number] [place] [address] [id number]- 1156 May, [facility] [id number] [place] [address] 47220- 9850 May, [facility] [id number] [place] [address] 19997- [phone] May, [facility] [id number] [place] [address] [id number]- 0445 May, [facility] [id number] [place] [address] 13219- 8566 May, Essential hypertension, benign 401.1 ; Anxiety state, unspecified 300.00 ; Panic disorder without agoraphobia 300.01 ; Social phobia 300.23 ; Morbid obesity 278.01 ; Other chronic pain 338.29 and Insomnia 780.52 [facility] [id number] [place] [address] 08259- 0078 May, Essential hypertension 401.9 [facility] [id number] [address] May, Pain in joint, pelvic region and thigh 719.45 [facility] [id number] [address] May, Essential hypertension, benign 401.1 [facility] [id number] [place] [address] 17781- 1210 May, Panic disorder without agoraphobia 300.01 and Social phobia 300.23 [facility] [id number] [address] May, [facility] [id number] [place] [address] [phone]- 0025 May, [facility] [facility] [id number] [place] [address] 13372- 2350 Apr, Chronic pain 338.29 [facility] [address] [id number] [address] Apr, [facility] [id number] [place] [address] 54958- 1169 Apr, [facility] [id number] [address] Apr, [facility] [id number] [address] Apr, [facility] [id number] [address] Apr, [facility] [id number] [address] Apr, [facility] [id number] [address] Apr, [facility] [id number] [address] Apr, Essential hypertension, benign 401.1 ; Morbid obesity 278.01 ; Anxiety state, unspecified 300.00 ; Panic disorder without agoraphobia 300.01 ; Social phobia 300.23 and Chronic pain 338.29 [facility] [id number] [place] [address] 89113- 7019 Mar, [facility] [id number] [place] [address] 87882- 2131 Mar, [facility] [address] [address]- [address] Mar, [facility] [id number] [place] [address] 43932- 2440 Mar, [facility] [id number] [place] [address] 69274- 7865 Mar, Social phobia 300.23 and Panic disorder without agoraphobia 300.01 [facility] [id number] [place] [address] 60035- 9540 Mar, [facility] [id number] [place] [address] 29698- 6751 February, [facility] [address] [address]- [address] February, Major depression, recurrent 296.30 and No condition on Olmito II V71.09 [facility] [id number] [place] [address] 36802- 3423 February, [facility] [id number] [place] [address] 80671- 5227 February, Panic disorder without agoraphobia 300.01 ; Social phobia 300.23 and Morbid obesity 278.01 [facility] [id number] [place] [address] 10709- 0420 Jan, [facility] [id number] [place] [address] 73320- 2546 Jan, [facility] [address] [address]- [address]46 Dec, [facility] [address] [id number] [place] [address]843 Dec, [facility] [address] [id number] [address] Dec, [facility] [address] [facility] [id number], [place] [address] 4669 Dec, [facility] [address] [id number] [address] Dec, [facility] [address] [id number] [place] [address]- 7265 Dec, [facility] [address] [facility] [id number] [address] 3670 Dec, [facility] [address] [facility] [id number], [place] [address]64 Dec, [facility] [address] [facility] [id number], [place] [address] 4928 Dec, [facility] [address] [facility] [id number], [place] [address]879 Dec, [facility] [address] [facility] [id number], [place] [address] 6978 Dec, [facility] [address] [facility] [id number][place] [address]- 1570 Dec, [facility] [address] [facility] [id number][place] [address]- 9114 Dec, [facility] [address] [facility] [id number], [place] [address]- 6705 Dec, [facility] [address] [facility] [id number][place] [address] [address]0 Dec, [facility] [address] [facility] [id number][place] [address] Dec, IMMUNIZATIONS No Known Immunizations SOCIAL HISTORY Never Assessed REASON FOR VISIT lift chair evaluation. would like to speak to provider about getting his handicapped paperwork for his vehicle.-[employer] PLAN OF CARE Activity Details Follow Up 2 Months Reason:DM VITAL SIGNS Height 73 in 2018-06-22 Weight 337.8 lbs 2018-06-22 Temperature 98.7 degrees Fahrenheit 2018-06-22 Heart Rate 86 bpm 2018-06-22 Respiratory Rate 20 2018-06-22 BMI 44.56 kg/m2 2018-06-22 Blood pressure systolic 108 mmHg 2018-06-22 Blood pressure diastolic 82 mmHg 2018-06-22 MEDICATIONS Medication Instructions Dosage Frequency Start Date End Date Duration Status Levemir FlexTouch 100 UNIT/ML Subcutaneous Once a day Inject 10 units 24h Active Pen [place] 31G X 8 MM as directed Jan, Active Lasix 80 MG Orally Once a day 2 tablets 24h Active Metoprolol Succinate ER 100 MG TAKE ONE TABLET BY MOUTH ONCE DAILY Active Blood Glucose Monitor System w/Device as directed Active Lift Chair/Recliner use to assist with position changes- sitting to standing May, Active Lisinopril 20 MG Orally Once a day 1 tablet 24h Active Spironolactone 25 MG Orally Once a day 1 tablet 24h 30 Active Blood Glucose Test - as directed Active Pravastatin Sodium 10 MG TAKE ONE TABLET BY MOUTH ONCE DAILY Active Potassium Chloride Kristen ER 20 MEQ TAKE TWO (2) TABLETS BY MOUTH ONCE DAILY Active RESULTS No Results PROCEDURES Procedure Date Ordered Result Body Site [facility] ESTABLISHED PATIENT Jun 22, 2018 INSTRUCTIONS MEDICATIONS ADMINISTERED No Known [...]
--- OUTSIDE RECORDS SUMMARY | 2018-11-30 17:45 | XMS REPORT ---
Author Author ROSE MARY BUCKNER [facility] Address [address] [place] [address] Care Team Providers [employer] Hand Name Role Phone ISA BUCKNERTA Unavailable PROBLEMS Type Condition ICD9-CM Code [id number] Code Onset Dates Condition Status SNOMED Code Problem Type 2 diabetes mellitus with diabetic chronic kidney disease E11.22 Active 82322952 Problem Mixed hyperlipidemia E78.2 Active 406154321 Problem Primary insomnia F51.01 Active 8292660 Problem Major depressive disorder, recurrent, in full remission F33.42 Active 417884626 Problem Lymphedema I89.0 Active 997605554 Problem BMI 50.0-59.9, adult Z68.43 Active 202987151 Problem Constipation, unspecified constipation type K59.00 Active 32132336 Problem Chronic systolic congestive heart failure I50.22 Active 258588844 Problem Stasis dermatitis of both legs I87.2 Active 11969695 Problem Abnormal liver function test R94.5 Active 506138059 Problem Panic disorder F41.0 Active 158786395 Problem Controlled substance agreement terminated Z91.14 Active 636083245 Problem Cardiomegaly I51.7 Active 6746738 Problem Degenerative disc disease at L5-S1 level M51.36 Active 19159244 Problem BPH (benign prostatic hyperplasia) N40.0 Active 562167332 Problem Chronic pain G89.29 Active 77699353 Problem Dysthymic disorder F34.1 Active 89924782 Problem HTN (hypertension) I10 Active 86439891 Problem Mild episode of recurrent major depressive disorder F33.0 Active 865892956 ALLERGIES No Information ENCOUNTERS Encounter Location Date Diagnosis [facility] [address] [facility] [id number] [id number] [address] Aug, [facility] [address] [facility] [id number] [address] Jun, [facility] [address] [address] Jun, Type 2 diabetes mellitus with diabetic chronic kidney disease E11.22 [place] [address] [address]- [address] Jun, Onychomycosis B35.1 ; Self-care deficit for hygiene R46.0 and Nail hypertrophy L60.2 [place] [address] 04[address]- 7143 Jun, Dental examination Z01.20 [place] [address] [address]- 6847 Jun, Tooth infection K04.7 ; BMI 40.0-44.9, adult Z68.41 and Mouth pain K13.79 [place] [address] 51181- 1621 Jun, Type 2 diabetes mellitus with diabetic chronic kidney disease E11.22 [place] [address] 44973- 5972 May, Degenerative disc disease at L5-S1 level M51.36 ; Chronic pain G89.29 and BMI 40.0-44.9, adult Z68.41 [place] [address] 22758- 2683 May, [place] [address] 31585- 9966 May, Type 2 diabetes mellitus with diabetic chronic kidney disease E11.22 [place] [address] 38786- 5901 May, [place] [address] 52860- 5063 May, Degenerative disc disease at L5-S1 level M51.36 [place] [address] 71216- 3040 May, [place] [address] 38468- 9353 May, [place] [id number] [id number] [address] May, [place] [address], [place] [address] Apr, Type 2 diabetes mellitus with diabetic chronic kidney disease E11.22 ; Chronic pain G89.29 ; Major depressive disorder, recurrent, in full remission F33.42 ; HTN (hypertension) I10 ; Chronic systolic congestive heart failure I50.22 ; Mixed hyperlipidemia E78.2 and BMI 45.0-49.9, adult Z68.42 [place] [id number] [place] [address] 58882- 1429 18 Apr, 2018 Type 2 diabetes mellitus with diabetic chronic kidney disease E11.22 [place] [address], [place] [address] 6[address] 17 Apr, 2018 Medicare annual wellness visit, [...] vaccine Z28.21 and Encounter for immunization Z23 [place] [address] [id number] [address] 7[address] Apr, [place] [address], [place] [address] 250[address] Mar, Type 2 diabetes mellitus with diabetic chronic kidney disease E11.22 [place] [address] [id number] [address] 4857 Mar, Chronic pain G89.29 [place] [address] [place] [id number] [place] [address] 71624- 6325 February, Chronic pain G89.29 ; Abnormal liver function test R94.5 and Degenerative disc disease at L5-S1 level M51.36 [facility] [address] [place] [id number] [place] [address] 44668- 3678 Jan, [facility] [address] [place] [id number] [place] [address] 62597- 1154 Jan, [facility] [address] 77181- 4333 Jan, [place] [address] 09725- 8378 Jan, Abnormal liver function test R94.5 ; Dysthymic disorder F34.1 and Chronic pain G89.29 [facility] [address] [place] [id number] [place] [address] 61858- 1879 Dec, [place] [address] [place] [id number] [place] [address] 57162- 9253 Dec, HTN (hypertension) I10 ; BMI 45.0-49.9, adult Z68.42 ; Chronic pain G89.29 ; Primary insomnia F51.01 ; Mixed hyperlipidemia E78.2 ; Dysthymic disorder F34.1 ; Type 2 diabetes mellitus with diabetic chronic kidney disease E11.22 ; Stasis dermatitis of both legs I87.2 and Chronic systolic congestive heart failure I50.22 [facility] [address] [place] [id number] [place] [address] 01730- 6635 Dec, Chronic pain G89.29 [facility] [address] [place] [id number] [place] [address] 76796 -6229 Dec, Lymphedema I89.0 and Chronic systolic congestive heart failure I50.22 [facility] [address] [place] [id number] [place] [address] 45056- 1072 Dec, [facility] [address] [place] [id number] [place] [address] 43942- 6792 Nov, Type 2 diabetes mellitus with diabetic chronic kidney disease E11.22 [place] [address] [place] [id number] [place] [address] 84728- 3507 12 Nov, 2017 Chronic pain G89.29 and Dysthymic disorder F34.1 [place] [address] [place] [id number] [place] [address] 72895- 9599 08 Nov, 2017 [place] [address] 94773- 3963 Oct, HTN (hypertension) I10 ; Chronic pain G89.29 ; BMI 45.0-49.9 , adult Z68.42 ; Primary insomnia F51.01 ; Mixed hyperlipidemia E78.2 ; Dysthymic disorder F34.1 ; Type 2 diabetes mellitus with diabetic chronic kidney disease E11.22 ; Chronic congestive heart failure, unspecified congestive heart failure type I50.9 ; Acute non-recurrent maxillary sinusitis J01.00 and BMI 50.0-59.9, adult Z68.43 [place] [address] [place] [id number] [place] [address] 26517- 6495 17 Oct, 2017 HTN (hypertension) I10 and Dysthymic disorder F34.1 [place] [address] [place] [id number] [place] [address] 66597- 8960 Oct, [place] [address] [place] [id number] [place] [address] 05243- 6643 Oct, HTN (hypertension) I10 [place] [address] [place] [id number] [place] [address] 99775- 5988 Oct, Chronic pain G89.29 [place] [address] [place] [id number] [place] [address] 16544- 8210 Sep, [place] [address] [place] [id number] [place] [address] 44493- 7343 Sep, HTN (hypertension) I10 ; Chronic pain G89.29 ; BMI 45.0-49.9 , adult Z68.42 ; Primary insomnia F51.01 ; Mixed hyperlipidemia E78.2 ; Dysthymic disorder F34.1 and Type 2 diabetes mellitus with diabetic chronic kidney disease E11.22 [place] [id number] [place] [address] 58507- 2806 Sep, Chronic pain G89.29 [place] [address] [place] [id number] [place] [address] 06144- 4029 Sep, Acute on chronic heart failure, unspecified heart failure type I50.9 [place] [address] [place] [id number] [place] [address] 48356- 0268 Sep, Acute on chronic heart failure, unspecified heart failure type I50.9 ; Type 2 diabetes mellitus with diabetic chronic kidney disease E11.22 and BMI 50.0-59.9, adult Z68.43 [place] [address] [place] [id number] [place] [address] 52202- 7624 Sep, Acute on chronic heart failure, unspecified heart failure type I50.9 ; HTN (hypertension) I10 and Type 2 diabetes mellitus with diabetic chronic kidney disease E11.22 [place] [address] [place] [id number] [place] [address] 07830- 1211 Aug, Acute on chronic heart failure, unspecified heart failure type I50.9 ; HTN (hypertension) I10 ; Type 2 diabetes mellitus with diabetic chronic kidney disease E11.22 ; Cellulitis of right lower extremity L03.115 and BMI 50.0-59.9, adult Z68.43 [facility] [id number] [place] [address] 41440 -5283 Aug, Acute upper respiratory infection, unspecified J06.9 ; Other viral agents as the cause of diseases classified elsewhere B97.89 ; Constipation, unspecified constipation type K59.00 ; BMI 50.0-59.9, adult Z68.43 and BMI 60.0-69.9, adult Z68.44 [place] [id number] [place] [address] 51927- 4216 Aug, Chronic pain G89.29 [place] [address] [place] [id number] [place] [address] 10097- 2419 Jul, Chronic pain G89.29 [place] [id number] [place] [address] 81418- 6159 Jul, Chronic pain G89.29 [place] [address] [place] [id number] [place] [address] 32173- 4085 Jun, Chronic pain G89.29 [place] [address] [place] [id number] [place] [address] 89808- 8411 Jun, [place] [address] [place] [id number] [place] [address] 14583- 9503 Jun, Chronic pain G89.29 [place] [address] [place] [id number] [place] [address] 22632- 2623 May, Chronic pain G89.29 and Type 2 diabetes mellitus with diabetic chronic kidney disease E11.22 [place] [id number] [place] [address] 44242- 9328 May, [place] [address] [place] [id number] [place] [address] 27452- 0648 May, Chronic pain G89.29 and Anxiety F41.9 [place] [id number] [place] [address] 85590- 0125 May, Type 2 diabetes mellitus with diabetic chronic kidney disease E11.22 ; Social phobia F40.10 ; Morbid obesity E66.01 ; Chronic pain G89.29 ; HTN (hypertension) I10 ; Degenerative disc disease at L5-S1 level M51.36 ; BPH (benign prostatic hyperplasia) N40.0 ; Pain in right knee M25.561 and 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 [place] [address] [place] [id number] [place] [address] 45902- 6410 Apr, Anxiety F41.9 [place] [address] [place] [id number] [place] [address] 36938- 2825 Apr, [place] [address] [place] [id number] [place] [address] 58907- 3135 Mar, [place] [address] [place] [id number] [place] [address] 82161- 3105 Mar, Edema, unspecified type R60.9 and Anxiety F41.9 [place] [address] [place] [id number] [place] [address] 00643- 7741 Mar, Social phobia F40.10 ; Mixed obsessional thoughts and acts F42.2 and Mild episode of recurrent major depressive disorder F33.0 [place] [address] 38348- 0627 Mar, Degenerative disc disease at L5-S1 level M51.[address] 74968- 1814 Mar, [address] 27143- 6277 Mar, [address] 93600- 1907 Mar, [place] [address] 92759- 4854 February, Morbid obesity E66.01 ; Anxiety F41.9 ; Degenerative disc disease at L5-S1 level M51.36 ; BPH (benign prostatic hyperplasia) N40.0 ; Social phobia F40.10 ; HTN (hypertension) I10 ; Edema, unspecified type R60.9 and Screening cholesterol level Z13.220 [place] [address] 32049- 7383 February, Social phobia, generalized F40.11 [place] [id number] [place] [address] 23712- 5664 February, Chronic pain G89.29 [place] [address] 26098- 0000 February, [place] [address] 89855- 4962 Jan, Chronic pain G89.29 [facility] [address] [place] [id number] [place] [address] 27043- 2473 04 Jan, 2017 Panic disorder [episodic paroxysmal anxiety] without agoraphobia F41.0 [facility] [address] [place] [id number] [place] [address] 63939- 5846 13 Dec, 2016 Morbid obesity E66.01 ; Anxiety F41.9 ; Chronic pain G89.29 ; HTN (hypertension) I10 ; BPH (benign prostatic hyperplasia) N40.0 ; Generalized edema R60.1 and Cough R05 [place] [address] [place] [id number] [place] [address] 04018- 6619 14 Nov, 2016 Chronic pain G89.29 [facility] [address] [place] [id number] [place] [address] 97509- 7442 03 Nov, 2016 Social phobia, generalized F40.11 and Mild episode of recurrent major depressive disorder F33.0 [place] [address] [place] [id number] [place] [address] 82058- 0672 Oct, Chronic pain G89.29 [facility] [address] [place] [id number] [place] [address] 11273- 7276 Oct, Social phobia, generalized F40.11 [place] [address] [place] [id number] [place] [address] 32025- 0215 Sep, [place] [address] [place] [id number] [place] [address] 81253- 8947 Sep, [place] [address] [place] [id number] [place] [address] 29731- 6819 Sep, [place] [address] [place] [id number] [place] [address] 56194- 4764 Sep, [place] [address] [place] [id number] [place] [address] 22210- 4796 Sep, [facility] [address] [place] [id number] [place] [address] 50817- 9262 Sep, Social phobia, generalized F40.11 and Mild episode of recurrent major depressive disorder F33.0 [place] [id number] [place] [address] 08055- 9374 08 Sep, 2016 [place] [address] [place] [id number] [place] [address] 72326- 6471 Aug, [place] [address] [place] [id number] [place] [address] 12280- 4292 Aug, [place] [address] [place] [id number] [place] [address] 56178- 2429 Aug, Bronchitis J40 [place] [address] [place] [id number] [place] [address] 08067- 6532 15 Aug, 2016 [place] [address] [place] [id number] [place] [address] 15092- 4834 10 Aug, 2016 Osteoarthritis of knee, unspecified M17.9 [place] [address] [place] [id number] [place] [address] 79036- 9283 09 Aug, 2016 Morbid obesity E66.01 ; Chronic pain G89.29 ; Anxiety F41.9 ; Social phobia F40.10 ; HTN (hypertension) I10 ; Social phobia, generalized F40.11 ; Acute upper respiratory infection, unspecified J06.9 and Other viral agents as the cause of diseases classified elsewhere B97.89 [place] [address] [place] [id number] [place] [address] 76061- 4084 Aug, Social phobia, generalized F40.11 and Dysthymic disorder F34.1 [place] [address] [place] [id number] [place] [address] 75478- 1207 Jul, [place] [address] [place] [id number] [place] [address] 44941- 1683 Jun, [place] [address] [place] [id number] [place] [address] 29830- 2559 May, [place] [address] [place] [id number] [place] [address] 25276- 6390 May, [facility] [address], [place] [address]- 3051 May, [facility] [id number] [place] [address] 58320- 1557 May, [facility] [address], [place] [address]- 0031 May, [facility] [address] [place] [id number] [place] [address] 76232- 6196 May, [facility] [address] [place] [id number] [place] [address] 32499- 3446 May, [facility] [address] [place] [id number] [place] [address] 26728- 4820 Apr, [facility] [address] [place] [id number] [place] [address] 54238- 0777 Apr, Chondromalacia, right knee M94.261 [facility] [address] [place] [address] 99136- 0188 Apr, Pain in unspecified hip M25.559 [facility] [address] [place] [id number] [place] [address] 76660- 4562 Mar, Social phobia, unspecified F40.10 and Pain in unspecified hip M25.559 [facility] [address], [place] [address]- 0593 February, [facility] [address], [place] [address]- 2881 February, Social phobia F40.10 [facility] [address], [place] [address]- 0408 February, Morbid obesity E66.01 ; Chronic pain G89.29 ; Social phobia F40.10 ; Pelvic pain in male R10.2 ; HTN (hypertension) I10 ; Degenerative disc disease at L5-S1 level M51.36 ; BPH (benign prostatic hyperplasia) N40.0 and Pain in right knee M25.561 [facility] [address] [place] [id number] [address]- 5135 14 Jan, 2016 [facility] [address] [place] [id number] [place] [address] 35410- 6982 13 Jan, 2016 [facility] [address] [place] [id number] [place] [address] 81083- 9934 Jan, [facility] [address] [place] [id number] [place] [address] 58840- 0922 Dec, [facility] [address] [place] [id number] [place] [address] 65690- 8116 Dec, [facility] [address] [place] [id number] [place] [address] 43330- 1910 Dec, [facility] [address] [place] [id number] [place] [address] 89729 -3204 Nov, Strep pharyngitis J02.0 ; Influenza A J10.1 and Cough R05 [facility] [address] [place] [id number] [place] [address] 49284- 0449 Nov, [facility] [address] [place] [id number] [place] [address] 54839- 7757 Nov, [facility] [id number] [place] [address] 00520- 5312 Oct, HTN (hypertension) I10 ; Morbid obesity E66.01 ; Anxiety F41.9 ; Social phobia F40.10 ; Panic disorder F41.0 ; Degenerative disc disease at L5-S1 level M51.36 and Hypercholesterolemia E78.0 [facility] [address] [place] [id number] [place] [address] 81954- 2201 Oct, Panic disorder [episodic paroxysmal anxiety] without agoraphobia F41.0 and Social phobia, generalized F40.11 [facility] [address], [place] [address]- 9065 Oct, [facility] [id number] [address]- 0285 Sep, [facility] [id number] [place] [address] 47978- 1539 Sep, [facility] [address] [place] [id number] [place] [address] 83351- 0656 Sep, [facility] [address] [place] [id number] [place] [address] 56816- 5538 Sep, [facility] [address] [place] [id number] [place] [address] 30961- 6040 Aug, [facility] [address] [place] [id number] [place] [address] 30952- 9344 Aug, [facility] [address] [place] [id number] [place] [address] 96010- 1665 Aug, [facility] [address] [place] [id number] [place] [address] 87561- 0571 Aug, Social phobia F40.10 and Panic disorder F41.0 [facility] [id number] [place] [address] 37721- 7055 Aug, [facility] [address] [place] [id number] [place] [address] 02079- 1927 Aug, [facility] [address], [place] [address]- 2222 Aug, [facility] [id number] [place] [address] 29852- 7219 Aug, [facility] [id number] [place] [address] 84252- 0029 Jul, [facility] [address] [place] [id number] [place] [address] 46876- 3457 Jul, Morbid obesity E66.01 ; Chronic pain G89.29 ; Anxiety F41.9 ; Social phobia F40.10 ; Panic disorder F41.0 ; Pelvic pain in male R10.2 ; Insomnia G47.00 and HTN (hypertension) I10 [facility] [id number] [place] [address] 97124- 2236 Jul, [facility] [address] [place] [id number] [place] [address] 78627- 5577 Jul, [facility] [address] [place] [id number] [place] [address] 59103- 7165 16 Jun, 2015 Degenerative disc disease 722.6 [facility] [address] 74543- 5832 Jun, Pain in joint, pelvic region and thigh 719.45 ; Morbid obesity 278.01 ; Essential hypertension, benign 401.1 and Constipation 564.00 [facility] [address] [place] [id number] [place] [address] 22966- 6676 May, [facility] [address] [place] [id number] [place] [address] 31420- 9285 May, [facility] [address] [place] [id number] [place] [address] 91111- 6834 May, [facility] [address] [place] [id number] [place] [address] 51414- 3339 May, [facility] [address] [place] [id number] [place] [address] 11901- 8877 May, [facility] [address] [place] [id number] [place] [address] 88659- 8203 May, [facility] [address] [id number] [place] [address] [phone] May, Essential hypertension, benign 401.1 ; Anxiety state, unspecified 300.00 ; Panic disorder without agoraphobia 300.01 ; Social phobia 300.23 ; Morbid obesity 278.01 ; Other chronic pain 338.29 and Insomnia 780.52 [facility] [id number] [place] [address] [phone] May, Essential hypertension 401.9 [facility] [address] [place] [address] May, Pain in joint, pelvic region and thigh 719.45 [facility] [id number] [place] [address] [phone]- [phone] May, Essential hypertension, benign 401.1 [facility] [id number] [place] [address] [phone]- [phone] May, Panic disorder without agoraphobia 300.01 and Social phobia 300.23 [facility] [id number] [place] [address] [phone]- [phone] May, [facility] [id number] [place] [address] [phone] May, [facility] [id number] [place] [address] [phone] 9977 Apr, Chronic pain 338.29 [facility] [id number] [place] [address] 05453- 4017 Apr, [facility] [id number] [place] [address] 56573- 6770 Apr, [facility] [id number] [place] [address] 82059- 9145 Apr, [facility] [id number] [place] [address] 26026- 2978 Apr, [facility] [id number] [place] [address] 88585- 9539 Apr, [facility] [id number] [place] [address] 58564- 7894 Apr, [facility] [id number] [place] [address] 03894- 0947 Apr, [facility] [id number] Apr, Essential hypertension, benign 401.1 ; Morbid obesity 278.01 ; Anxiety state, unspecified 300.00 ; Panic disorder without agoraphobia 300.01 ; Social phobia 300.23 and Chronic pain 338.29 [facility] [id number] [place] [address] 57773- 3138 Mar, [facility] [id number] [place] [address] 07263- 5710 Mar, [facility] [id number] [place] [address] 72400- 5868 Mar, [facility] [id number] [place] [address] 86093- 0705 Mar, [facility] [address] [address]- 2981 Mar, Social phobia 300.23 and Panic disorder without agoraphobia 300.01 [facility] [id number] [place] [address] 14699- 5342 Mar, [facility] [id number] [place] [address] 68527- 5558 February, [facility] [id number] [place] [address] 06787- 1911 February, Major depression, recurrent 296.30 and No condition on [place] II V71.09 [facility] [id number] [place] [address] 55589- 1800 February, [facility] [id number] [place] [address] 85667- 9568 February, Panic disorder without agoraphobia 300.01 ; Social phobia 300.23 and Morbid obesity 278.01 [facility] [id number] [place] [address] 99420- 5702 Jan, [facility] [id number] [place] [address] 88008- 2526 Jan, [facility] [id number] [place] [address] 95904- 4507 Dec, [facility] [address] [id number] [place] [address]- 2017 Dec, [facility] [address] [id number], [place] [address] 3973 Dec, [facility] [address] [facility] [id number] [place] 2963 Dec, [facility] [address] [facility] [id number] [place] [address]- 5944 Dec, [facility] [address] [facility] [id number] [place] [address]- 6209 Dec, [facility] [address] [facility] [id number] [place] 9494 Dec, [facility] [address] [facility] [id number] [place] [address]- 5147 Dec, [facility] [address] [facility] [id number], [place] [address]- 2221 Dec, [facility] [address] [facility] [id number], [place] [address]- 9962 Dec, [facility] [address] [facility] [id number], [place] [address]- 8694 Dec, [facility] [address] [facility] [id number], [place] [address] 4271 Dec, [facility] [address] [facility] [id number], [place] [address]- 8233 Dec, [facility] [address] [facility] [id number]- 5617 Dec, [facility] [address] [facility] [id number], [place] [address]- 2600 Dec, [facility] [address] [facility] [id number], [place] [address]- 5451 Dec, IMMUNIZATIONS No Known Immunizations SOCIAL HISTORY Never Assessed REASON FOR VISIT PLAN OF CARE VITAL SIGNS MEDICATIONS Medication Instructions Dosage Frequency Start Date End Date Duration Status Accu-Chek FastClix Lancets - subcutaneously 3 times a day to test blood sugars 8h Jun, Active RESULTS No Results PROCEDURES [...]
--- OUTSIDE RECORDS SUMMARY | 2018-11-30 17:46 | XMS REPORT ---
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 Role Phone ISA BUCKNERTA Unavailable PROBLEMS Type Condition ICD9-CM Code JUG59-BO Code Onset Dates Condition Status SNOMED Code Problem Type 2 diabetes mellitus with diabetic chronic kidney disease E11.22 Active 21871878 Problem Mixed hyperlipidemia E78.2 Active 267772096 Problem Primary insomnia F51.01 Active 9702102 Problem Major depressive disorder, recurrent, in full remission F33.42 Active 662107689 Problem Lymphedema I89.0 Active 638564357 Problem BMI 50.0-59.9, adult Z68.43 Active 442076258 Problem Constipation, unspecified constipation type K59.00 Active 88160068 Problem Chronic systolic congestive heart failure I50.22 Active 740654200 Problem Stasis dermatitis of both legs I87.2 Active 74036226 Problem Abnormal liver function test R94.5 Active 301729097 Problem Panic disorder F41.0 Active 326512272 Problem Controlled substance agreement terminated Z91.14 Active 149170462 Problem Cardiomegaly I51.7 Active 2115803 Problem Degenerative disc disease at L5-S1 level M51.36 Active 18662376 Problem BPH (benign prostatic hyperplasia) N40.0 Active 374467060 Problem Chronic pain G89.29 Active 83075659 Problem Dysthymic disorder F34.1 Active 99903694 Problem HTN (hypertension) I10 Active 53700725 Problem Mild episode of recurrent major depressive disorder F33.0 Active 063102802 ALLERGIES No Information ENCOUNTERS Encounter Location Date Diagnosis [facility] [address] [facility] [id number] [address] Aug, [facility] [address] [facility] [id number] [address] Jun, [facility] [address] [facility] [id number] [place] [address] 68145- 7329 Jun, Dental examination Z01.20 [facility] [id number] [place] [address] 43700- 5486 Jun, Tooth infection K04.7 ; BMI 40.0-44.9, adult Z68.41 and Mouth pain K13.79 [facility] [id number] [place] [address] 06245- 5864 Jun, Type 2 diabetes mellitus with diabetic chronic kidney disease E11.22 [facility] [id number] [place] [address] 53350- 3259 May, Degenerative disc disease at L5-S1 level M51.36 ; Chronic pain G89.29 and BMI 40.0-44.9, adult Z68.41 [facility] [id number] [place] [address] 72503- 0316 May, [facility] [id number] [place] [address] 36516- 6006 May, Type 2 diabetes mellitus with diabetic chronic kidney disease E11.22 [facility] [id number] [place] [address] 26419- 7219 May, [facility] [id number] [place] [address] 86338- 2194 May, Degenerative disc disease at L5-S1 level M51.36 [facility] [id number] [place] [address] 01218- 0119 May, [facility] [id number] [place] [address] 52100- 5344 May, [facility] [id number] [place] [address] 45536- 8231 May, [facility] [id number] [place] [address] 62922- 4189 Apr, Type 2 diabetes mellitus with diabetic chronic kidney disease E11.22 ; Chronic pain G89.29 ; Major depressive disorder, recurrent, in full remission F33.42 ; HTN (hypertension) I10 ; Chronic systolic congestive heart failure I50.22 ; Mixed hyperlipidemia E78.2 and BMI 45.0-49.9, adult Z68.42 [place] [id number] [place] [address] 51141- 9276 18 Apr, 2018 Type 2 diabetes mellitus with diabetic chronic kidney disease E11.[address] 74276- 0192 17 Apr, 2018 Medicare annual wellness visit, [...] Z28.21 and Encounter for immunization Z23 [address] 68741- 7053 Apr, [place] [id number] [place] [address] 96515- 9996 Mar, Type 2 diabetes mellitus with diabetic chronic kidney disease E11.22 [facility] [id number] [place] [address] 00365- 7109 Mar, Chronic pain G89.[address] 33482- 4054 February, Chronic pain G89.29 ; Abnormal liver function test R94.5 and Degenerative disc disease at L5-S1 level M51.[address] 09358- 3504 Jan, [place] [address] 34130- 3376 Jan, [facility] [id number] [place] [address] 98500- 1976 Jan, [facility] [id number] [place] [address] 53647- 5472 Jan, Abnormal liver function test R94.5 ; Dysthymic disorder F34.1 and Chronic pain G89.29 [facility] [id number] [place] [address] 46874- 0718 Dec, [facility] [id number] [place] [address] 75231- 2906 Dec, HTN (hypertension) I10 ; BMI 45.0-49.9, adult Z68.42 ; Chronic pain G89.29 ; Primary insomnia F51.01 ; Mixed hyperlipidemia E78.2 ; Dysthymic disorder F34.1 ; Type 2 diabetes mellitus with diabetic chronic kidney disease E11.22 ; Stasis dermatitis of both legs I87.2 and Chronic systolic congestive heart failure I50.22 [facility] [id number] [place] [address] 63187- 9603 Dec, Chronic pain G89.29 [facility] [id number] [place] [address] 19382 -4618 Dec, Lymphedema I89.0 and Chronic systolic congestive heart failure I50.22 [place] [id number] [place] [address] 80386- 6518 Dec, [facility] [id number] [place] [address] 14940- 0925 Nov, Type 2 diabetes mellitus with diabetic chronic kidney disease E11.22 [facility] [id number] [place] [address] 65670- 3452 Nov, Chronic pain G89.29 and Dysthymic disorder F34.1 [facility] [id number] [place] [address] 51607- 4656 Nov, [facility] [id number] [place] [address] 08034- 4481 30 Oct, 2017 HTN (hypertension) I10 ; Chronic pain G89.29 ; BMI 45.0-49.9 , adult Z68.42 ; Primary insomnia F51.01 ; Mixed hyperlipidemia E78.2 ; Dysthymic disorder F34.1 ; Type 2 diabetes mellitus with diabetic chronic kidney disease E11.22 ; Chronic congestive heart failure, unspecified congestive heart failure type I50.9 ; Acute non-recurrent maxillary sinusitis J01.00 and BMI 50.0-59.9, adult Z68.43 [facility] [id number] [place] [address] 82545- 3036 17 Oct, 2017 HTN (hypertension) I10 and Dysthymic disorder F34.1 [place] [id number] [place] [address] 62972- 3841 Oct, [place] [address] 96044- 1975 Oct, HTN (hypertension) I10 [facility] [id number] [place] [address] 71654- 5010 11 Oct, 2017 Chronic pain G89.29 [place] [id number] [place] [address] 40793- 5009 Sep, [place] [id number] [place] [address] 49551- 8293 Sep, HTN (hypertension) I10 ; Chronic pain G89.29 ; BMI 45.0-49.9 , adult Z68.42 ; Primary insomnia F51.01 ; Mixed hyperlipidemia E78.2 ; Dysthymic disorder F34.1 and Type 2 diabetes mellitus with diabetic chronic kidney disease E11.22 [place] [id number] [place] [address] 45863- 1013 18 Sep, 2017 Chronic pain G89.29 [place] [id number] [place] [address] 65045- 0491 Sep, Acute on chronic heart failure, unspecified heart failure type I50.9 [facility] [address] [address] 14[address] Sep, Acute on chronic heart failure, unspecified heart failure type I50.9 ; Type 2 diabetes mellitus with diabetic chronic kidney disease E11.22 and BMI 50.0-59.9, adult Z68.43 [facility] [id number] [place] [address] 96114- 0088 Sep, Acute on chronic heart failure, unspecified heart failure type I50.9 ; HTN (hypertension) I10 and Type 2 diabetes mellitus with diabetic chronic kidney disease E11.22 [facility] [id number] [place] [address] 48356- 9572 Aug, Acute on chronic heart failure, unspecified heart failure type I50.9 ; HTN (hypertension) I10 ; Type 2 diabetes mellitus with diabetic chronic kidney disease E11.22 ; Cellulitis of right lower extremity L03.115 and BMI 50.0-59.9, adult Z68.43 [facility] [id number] [place] [address] 79128 -4323 Aug, Acute upper respiratory infection, unspecified J06.9 ; Other viral agents as the cause of diseases classified elsewhere B97.89 ; Constipation, unspecified constipation type K59.00 ; BMI 50.0-59.9, adult Z68.43 and BMI 60.0-69.9, adult Z68.44 [facility] [id number] [place] [address] 67335- 9448 Aug, Chronic pain G89.29 [place] [id number] [place] [address] 61688- 8990 Jul, Chronic pain G89.29 [place] [id number] [place] [address] 60417- 9144 Jul, Chronic pain G89.29 [place] [id number] [place] [address] 99024- 6427 Jun, Chronic pain G89.29 [place] [address] [place] [address]- 1562 18 Jun, 2017 [place] [id number] [place] [address] 32021- 0409 Jun, Chronic pain G89.29 [place] [id number] [place] [address] 41047- 1788 May, Chronic pain G89.29 and Type 2 diabetes mellitus with diabetic chronic kidney disease E11.22 [facility] [id number] [place] [address] 74571- 7314 16 May, 2017 [place] [id number] [place] [address] 71017- 0169 May, Chronic pain G89.29 and Anxiety F41.9 [place] [id number] [place] [address] 45862- 2045 May, Type 2 diabetes mellitus with diabetic chronic kidney disease E11.22 ; Social phobia F40.10 ; Morbid obesity E66.01 ; Chronic pain G89.29 ; HTN (hypertension) I10 ; Degenerative disc disease at L5-S1 level M51.36 ; BPH (benign prostatic hyperplasia) N40.0 ; Pain in right knee M25.561 and 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 [facility] [id number] [place] [address] 26760- 4127 Apr, Anxiety F41.9 [place] [id number] [place] [address] 24499- 8092 Apr, [place] [id number] [place] [address] 17296- 6613 Mar, [place] [id number] [place] [address] 94400- 8107 Mar, Edema, unspecified type R60.9 and Anxiety F41.9 [place] [id number] [place] [address] 85291- 6025 Mar, Social phobia F40.10 ; Mixed obsessional thoughts and acts F42.2 and Mild episode of recurrent major depressive disorder F33.0 [place] [id number] [place] [address] 19127- 3546 Mar, Degenerative disc disease at L5-S1 level M51.36 [place] [id number] [place] [address] 37404- 0747 Mar, [place] [id number] [place] [address] 22590- 0541 Mar, [place] [id number] [place] [address] 53729- 0277 Mar, [place] [address] 84430- 5200 February, Morbid obesity E66.01 ; Anxiety F41.9 ; Degenerative disc disease at L5-S1 level M51.36 ; BPH (benign prostatic hyperplasia) N40.0 ; Social phobia F40.10 ; HTN (hypertension) I10 ; Edema, unspecified type R60.9 and Screening cholesterol level Z13.220 [place] [id number] [place] [address] 25526- 6678 February, Social phobia, generalized F40.11 [place] [id number] [place] [address] 02655- 3831 February, Chronic pain G89.29 [place] [id number] [place] [address] 07732- 1028 February, [place] [id number] [place] [address] 95904- 4772 Jan, Chronic pain G89.29 [place] [id number] [place] [address] 76365- 0344 Jan, Panic disorder [episodic paroxysmal anxiety] without agoraphobia F41.0 [facility] [id number] [place] [address] 74106- 5599 Dec, Morbid obesity E66.01 ; Anxiety F41.9 ; Chronic pain G89.29 ; HTN (hypertension) I10 ; BPH (benign prostatic hyperplasia) N40.0 ; Generalized edema R60.1 and Cough R05 [facility] [id number] [place] [address] 15230 2546 14 Nov, 2016 Chronic pain G89.29 [facility] [id number] [place] [address] 02027 2546 03 Nov, 2016 Social phobia, generalized F40.11 and Mild episode of recurrent major depressive disorder F33.0 [facility] [id number] [place] [address] 97148 2546 Oct, Chronic pain G89.29 [facility] [id number] [place] [address] 88282 2546 Oct, Social phobia, generalized F40.11 [facility] [id number] [place] [address] 14169- 1606 Sep, [facility] [id number] [place] [address] 45866 2546 Sep, [facility] [id number] [place] [address] 18004 2546 Sep, [facility] [id number] [place] [address] 26323 2546 Sep, [facility] [id number] [place] [address] 56542 2546 Sep, [facility] [id number] [place] [address] 00997 2546 Sep, Social phobia, generalized F40.11 and Mild episode of recurrent major depressive disorder F33.0 [facility] [id number] [place] [address] 21322 2546 Sep, [facility] [id number] [place] [address] 18703 2546 Aug, [facility] [id number] [place] [address] 85637- 3432 Aug, [facility] [id number] [place] [address] 63871- 7215 Aug, Bronchitis J40 [facility] [id number] [place] [address] 84434- 0512 15 Aug, 2016 [facility] [id number] [place] [address] 60407- 6953 Aug, Osteoarthritis of knee, unspecified M17.9 [facility] [id number] [place] [address] 25449- 3232 09 Aug, 2016 Morbid obesity E66.01 ; Chronic pain G89.29 ; Anxiety F41.9 ; Social phobia F40.10 ; HTN (hypertension) I10 ; Social phobia, generalized F40.11 ; Acute upper respiratory infection, unspecified J06.9 and Other viral agents as the cause of diseases classified elsewhere B97.89 [facility] [id number] [place] [address] 74864- 2761 Aug, Social phobia, generalized F40.11 and Dysthymic disorder F34.1 [facility] [id number] [place] [address] 86546- 2934 Jul, [facility] [id number] [place] [address] 48931- 7884 Jun, [facility] [id number] [place] [address] 78430- 4379 May, [facility] [id number] [place] [address] 64539- 7525 May, [facility] [id number] [place] [address] 29356- 2001 May, [facility] [id number] [place] [address] 14310- 9959 May, [facility] [id number] [place] [address] 99625- 7047 May, [facility] [address] [address]- 6415 May, [facility] [id number] [place] [address] 62412- 9633 May, [facility] [address] [address]- 9401 Apr, [facility] [id number] [place] [address] 77616- 3673 Apr, Chondromalacia, right knee M94.261 [facility] [id number] [place] [address] 73501- 5247 Apr, Pain in unspecified hip M25.559 [facility] [id number] [place] [address] 92331- 3101 Mar, Social phobia, unspecified F40.10 and Pain in unspecified hip M25.559 [facility] [id number] [place] [address] 26224- 7301 February, [facility] [id number] [place] [address] 10764- 4943 February, Social phobia F40.10 [facility] [id number] [place] [address] 68467- 8521 February, Morbid obesity E66.01 ; Chronic pain G89.29 ; Social phobia F40.10 ; Pelvic pain in male R10.2 ; HTN (hypertension) I10 ; Degenerative disc disease at L5-S1 level M51.36 ; BPH (benign prostatic hyperplasia) N40.0 and Pain in right knee M25.561 [facility] [id number] [place] [address] 88552- 3569 Jan, [facility] [id number] [place] [address] 00111- 6874 Jan, [facility] [id number] [place] [address] 98754- 7790 Jan, [place] [id number] [place] [address] 80294- 5553 Dec, [facility] [id number] [place] [address] 51541- 3066 Dec, [facility] [id number] [place] [address] 97242- 0987 Dec, [facility] [address] 64340 -3706 Nov, Strep pharyngitis J02.0 ; Influenza A J10.1 and Cough R05 [facility] [address] 50537- 7966 Nov, [facility] [id number] [place] [address] 75761- 4180 Nov, [facility] [address] 20596- 9348 Oct, HTN (hypertension) I10 ; Morbid obesity E66.01 ; Anxiety F41.9 ; Social phobia F40.10 ; Panic disorder F41.0 ; Degenerative disc disease at L5-S1 level M51.36 and Hypercholesterolemia E78.0 [facility] [id number] [place] [address] 72696- 7068 Oct, Panic disorder [episodic paroxysmal anxiety] without agoraphobia F41.0 and Social phobia, generalized F40.11 [facility] [id number] [place] [address] 51357- 2417 Oct, [facility] [id number] [place] [address] 54785- 9642 Sep, [facility] [id number] [place] [address] 06491- 8983 Sep, [facility] [id number] [place] [address] 33964- 3945 Sep, [facility] [id number] [place] [address] 25189- 0647 Sep, [facility] [id number] [place] [address] 97342- 1009 Aug, [facility] [id number] [place] [address] 00391- 0681 Aug, [facility] [address] 16771- 3592 Aug, [facility] [address] 45690- 7154 Aug, Social phobia F40.10 and Panic disorder F41.0 [facility] [address] 48496- 3758 Aug, [facility] [address] 02698- 4783 Aug, [facility] [address] 01054- 5754 Aug, [facility] [id number] [place] [address] 44912- 5775 Aug, [facility] [address] 29030- 8408 Jul, [facility] [id number] [place] [address] 27060- 1339 Jul, Morbid obesity E66.01 ; Chronic pain G89.29 ; Anxiety F41.9 ; Social phobia F40.10 ; Panic disorder F41.0 ; Pelvic pain in male R10.2 ; Insomnia G47.00 and HTN (hypertension) I10 [facility] [address] 99542- 9625 Jul, [facility] [id number] [place] [address] 66311- 2759 Jul, [facility] [address] 06134- 2330 Jun, Degenerative disc disease 722.6 [facility] [address] [address]- 5558 Jun, Pain in joint, pelvic region and thigh 719.45 ; Morbid obesity 278.01 ; Essential hypertension, benign 401.1 and Constipation 564.00 [facility] [id number] [address]- 9279 May, [facility] [address] 56777- 4885 May, [facility] [id number] [place] [address]479- 2160 May, [facility] [id number] [place] [address]38- 8044 May, [facility] [id number] [place] [address] 22694- 7361 May, [facility] [id number] [place] [address] 48299- 8158 May, [facility] [id number] [place] [address] 86543- 3006 May, Essential hypertension, benign 401.1 ; Anxiety state, unspecified 300.00 ; Panic disorder without agoraphobia 300.01 ; Social phobia 300.23 ; Morbid obesity 278.01 ; Other chronic pain 338.29 and Insomnia 780.52 [facility] [id number] [place] [address] [phone]- 5702 May, Essential hypertension 401.9 [facility] [id number] [place] [address]18- 8242 May, Pain in joint, pelvic region and thigh 719.45 [facility] [id number] [place] [address] [phone]- 8875 May, Essential hypertension, benign 401.1 [facility] [id number] [place] [address] 31695- 1838 May, Panic disorder without agoraphobia 300.01 and Social phobia 300.23 [facility] [id number] [address] May, [facility] [id number], [place] [address] May, [facility] [id number] [place] [address] 61489- 9816 Apr, Chronic pain 338.29 [facility] [id number] [place] [address] 30635- 5188 Apr, [facility] [id number] [place] [address] 11848- 7683 Apr, [facility] [id number] [place] [address] 57140- 5493 Apr, [facility] [id number] [place] [address] 94152- 4025 Apr, [facility] [id number] [place] [address] [id number]- 5750 Apr, [facility] [id number] [place] [address] 20574- [phone] Apr, [facility] [id number] [place] [address] 33225- [phone] Apr, [facility] [id number] [place] [id number]- [address] Apr, Essential hypertension, benign 401.1 ; Morbid obesity 278.01 ; Anxiety state, unspecified 300.00 ; Panic disorder without agoraphobia 300.01 ; Social phobia 300.23 and Chronic pain 338.29 [facility] [id number] [place] [address] [id number] Mar, [facility] [id number] [address] Mar, [facility] [id number] [address] Mar, [facility] [id number] [address] Mar, [facility] [id number] [place] [address]- 3589 Mar, Social phobia 300.23 and Panic disorder without agoraphobia 300.01 [facility] [id number] [place] [address]- 1473 Mar, [facility] [id number] [place] [id number]- [address]125 February, [facility] [id number] [place] [address]- [address]101 February, Major depression, recurrent 296.30 and No condition on [place] II V71.09 [facility] [id number] [place] [address]- 8032 February, [facility] [id number] [place] [address]- 3051 February, Panic disorder without agoraphobia 300.01 ; Social phobia 300.23 and Morbid obesity 278.01 [facility] [id number] [address] Jan, [facility] [id number] [address] Jan, [facility] [id number] [address] Dec, [facility] [id number] [address] Dec, [facility] [id number] [address] Dec, [facility] [id number] [address] Dec, [facility] [id number] [address] Dec, [facility] [id number] [address] Dec, [facility] [id number] [address] Dec, [facility] [id number] [address] Dec, [facility] [id number] [address] Dec, [facility] [id number], [place] [address] Dec, [facility] [id number] [address] Dec, [facility] [id number], [place] [address] Dec, [facility] [id number] [address] Dec, [facility] [id number], [place] [address] Dec, [facility] [id number] [address] Dec, [facility] [id number] [address] Dec, IMMUNIZATIONS No Known Immunizations SOCIAL HISTORY Never Assessed REASON FOR VISIT Referral request PLAN OF CARE VITAL SIGNS MEDICATIONS Unknown [...]
--- OUTSIDE RECORDS SUMMARY | 2018-11-30 17:46 | XMS REPORT ---
Author Author ROSE MARY BUCKNER [facility] Address [address] [place] [address] Care Team Providers Care Psychometrician Name Role Phone ISA BUCKNERTA Unavailable PROBLEMS Type Condition ICD9-CM Code [id number] Code Onset Dates Condition Status SNOMED Code Problem Type 2 diabetes mellitus with diabetic chronic kidney disease E11.22 Active 42976333 Problem Mixed hyperlipidemia E78.2 Active 136250271 Problem Primary insomnia F51.01 Active 7443840 Problem Major depressive disorder, recurrent, in full remission F33.42 Active 955278415 Problem Lymphedema I89.0 Active 989465091 Problem BMI 50.0-59.9, adult Z68.43 Active 037352226 Problem Constipation, unspecified constipation type K59.00 Active 40791655 Problem Chronic systolic congestive heart failure I50.22 Active 173784643 Problem Stasis dermatitis of both legs I87.2 Active 33128270 Problem Abnormal liver function test R94.5 Active 739822509 Problem Panic disorder F41.0 Active 386510944 Problem Controlled substance agreement terminated Z91.14 Active 915802452 Problem Cardiomegaly I51.7 Active 0051030 Problem Degenerative disc disease at L5-S1 level M51.36 Active 64690723 Problem BPH (benign prostatic hyperplasia) N40.0 Active 067263680 Problem Chronic pain G89.29 Active 67289695 Problem Dysthymic disorder F34.1 Active 19133369 Problem HTN (hypertension) I10 Active 68843000 Problem Mild episode of recurrent major depressive disorder F33.0 Active 394926243 ALLERGIES No Information ENCOUNTERS Encounter Location Date Diagnosis [facility] [address] [facility] [id number] [address] Aug, [facility] [address] [facility] [id number], [place] [address] Jun, [facility] [address] [facility] [id number] [place] [address] 13796- 6799 Jun, Dental examination Z01.20 [facility] [id number] [place] [address] 74899- 0667 Jun, Tooth infection K04.7 ; BMI 40.0-44.9, adult Z68.41 and Mouth pain K13.79 [facility] [id number] [place] [address] 25106- 3336 Jun, Type 2 diabetes mellitus with diabetic chronic kidney disease E11.22 [facility] [id number] [place] [address] 86707- 4592 May, Degenerative disc disease at L5-S1 level M51.36 ; Chronic pain G89.29 and BMI 40.0-44.9, adult Z68.41 [facility] [id number] [place] [address] 80754- 5015 May, [facility] [id number] [place] [address] 88416- 9402 May, Type 2 diabetes mellitus with diabetic chronic kidney disease E11.22 [facility] [id number] [place] [address] 41079- 7692 May, [facility] [id number] [place] [address] 89279- 7574 May, Degenerative disc disease at L5-S1 level M51.36 [facility] [id number] [place] [address] 54236- 8766 May, [facility] [id number] [place] [address] 70312- 1331 May, [facility] [id number] [place] [address] 30261- 3591 May, [facility] [id number] [place] [address] 79912- 5947 Apr, Type 2 diabetes mellitus with diabetic chronic kidney disease E11.22 ; Chronic pain G89.29 ; Major depressive disorder, recurrent, in full remission F33.42 ; HTN (hypertension) I10 ; Chronic systolic congestive heart failure I50.22 ; Mixed hyperlipidemia E78.2 and BMI 45.0-49.9, adult Z68.42 [facility] [id number] [place] [address] 15522- 4142 18 Apr, 2018 Type 2 diabetes mellitus with diabetic chronic kidney disease E11.[address] 25982- 3446 17 Apr, 2018 Medicare annual wellness visit, [...] vaccine Z28.21 and Encounter for immunization Z23 [address] 34636- 0754 Apr, [place] [id number] [place] [address] 69097- 4014 Mar, Type 2 diabetes mellitus with diabetic chronic kidney disease E11.22 [facility] [id number] [place] [address] 30457- 8800 Mar, Chronic pain G89.[address] 77091- 4223 February, Chronic pain G89.29 ; Abnormal liver function test R94.5 and Degenerative disc disease at L5-S1 level M51.[address] 20037- 8732 Jan, [place] [address] 03737- 6036 Jan, [facility] [id number] [place] [address] 36140- 9136 Jan, [facility] [id number] [place] [address] 60191- 0997 Jan, Abnormal liver function test R94.5 ; Dysthymic disorder F34.1 and Chronic pain G89.29 [facility] [id number] [place] [address] 02705- 7768 Dec, [facility] [id number] [place] [address] 06764- 8551 Dec, HTN (hypertension) I10 ; BMI 45.0-49.9, adult Z68.42 ; Chronic pain G89.29 ; Primary insomnia F51.01 ; Mixed hyperlipidemia E78.2 ; Dysthymic disorder F34.1 ; Type 2 diabetes mellitus with diabetic chronic kidney disease E11.22 ; Stasis dermatitis of both legs I87.2 and Chronic systolic congestive heart failure I50.22 [facility] [id number] [place] [address] 92486- 8997 Dec, Chronic pain G89.29 [facility] [id number] [place] [address] 88752 -0390 Dec, Lymphedema I89.0 and Chronic systolic congestive heart failure I50.22 [facility] [id number] [place] [address] 28323- 2687 Dec, [facility] [id number] [place] [address] 22465- 7465 Nov, Type 2 diabetes mellitus with diabetic chronic kidney disease E11.22 [facility] [id number] [place] [address] 28232- 3208 Nov, Chronic pain G89.29 and Dysthymic disorder F34.1 [facility] [id number] [place] [address] 70474- 4049 Nov, [facility] [id number] [place] [address] 09728- 1637 30 Oct, 2017 HTN (hypertension) I10 ; Chronic pain G89.29 ; BMI 45.0-49.9 , adult Z68.42 ; Primary insomnia F51.01 ; Mixed hyperlipidemia E78.2 ; Dysthymic disorder F34.1 ; Type 2 diabetes mellitus with diabetic chronic kidney disease E11.22 ; Chronic congestive heart failure, unspecified congestive heart failure type I50.9 ; Acute non-recurrent maxillary sinusitis J01.00 and BMI 50.0-59.9, adult Z68.43 [facility] [id number] [place] [address] 47120- 6159 17 Oct, 2017 HTN (hypertension) I10 and Dysthymic disorder F34.1 [facility] [id number] [place] [address] 00444- 7389 Oct, [facility] [address] 74716- 6042 Oct, HTN (hypertension) I10 [facility] [id number] [place] [address] 61044- 2315 11 Oct, 2017 Chronic pain G89.29 [facility] [id number] [place] [address] 29935- 0817 Sep, [facility] [id number] [place] [address] 35660- 5359 Sep, HTN (hypertension) I10 ; Chronic pain G89.29 ; BMI 45.0-49.9 , adult Z68.42 ; Primary insomnia F51.01 ; Mixed hyperlipidemia E78.2 ; Dysthymic disorder F34.1 and Type 2 diabetes mellitus with diabetic chronic kidney disease E11.22 [facility] [id number] [place] [address] 16970- 8643 18 Sep, 2017 Chronic pain G89.29 [facility] [id number] [place] [address] 04509- 7095 Sep, Acute on chronic heart failure, unspecified heart failure type I50.9 [facility] [address] [address]- 0863 Sep, Acute on chronic heart failure, unspecified heart failure type I50.9 ; Type 2 diabetes mellitus with diabetic chronic kidney disease E11.22 and BMI 50.0-59.9, adult Z68.43 [facility] [id number] [place] [address] 33763- 1181 Sep, Acute on chronic heart failure, unspecified heart failure type I50.9 ; HTN (hypertension) I10 and Type 2 diabetes mellitus with diabetic chronic kidney disease E11.22 [facility] [id number] [place] [address] 66934- 6167 Aug, Acute on chronic heart failure, unspecified heart failure type I50.9 ; HTN (hypertension) I10 ; Type 2 diabetes mellitus with diabetic chronic kidney disease E11.22 ; Cellulitis of right lower extremity L03.115 and BMI 50.0-59.9, adult Z68.43 [facility] [id number] [place] [address] 07371 -5895 Aug, Acute upper respiratory infection, unspecified J06.9 ; Other viral agents as the cause of diseases classified elsewhere B97.89 ; Constipation, unspecified constipation type K59.00 ; BMI 50.0-59.9, adult Z68.43 and BMI 60.0-69.9, adult Z68.44 [facility] [id number] [place] [address] 60345- 4236 Aug, Chronic pain G89.29 [facility] [id number] [place] [address] 50141- 5320 Jul, Chronic pain G89.29 [facility] [id number] [place] [address] 19390- 7328 Jul, Chronic pain G89.29 [facility] [id number] [place] [address] 53056- 5447 Jun, Chronic pain G89.29 [facility] [address] [place] [address]- 5173 18 Jun, 2017 [facility] [id number] [place] [address] 65667- 9433 Jun, Chronic pain G89.29 [facility] [id number] [place] [address] 60553- 9391 May, Chronic pain G89.29 and Type 2 diabetes mellitus with diabetic chronic kidney disease E11.22 [facility] [id number] [place] [address] 48269- 8591 16 May, 2017 [facility] [id number] [place] [address] 40025- 2941 May, Chronic pain G89.29 and Anxiety F41.9 [facility] [id number] [place] [address] 68360- 2985 May, Type 2 diabetes mellitus with diabetic chronic kidney disease E11.22 ; Social phobia F40.10 ; Morbid obesity E66.01 ; Chronic pain G89.29 ; HTN (hypertension) I10 ; Degenerative disc disease at L5-S1 level M51.36 ; BPH (benign prostatic hyperplasia) N40.0 ; Pain in right knee M25.561 and 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 [facility] [id number] [place] [address] 60167- 8391 Apr, Anxiety F41.9 [facility] [id number] [place] [address] 86023- 0528 Apr, [facility] [id number] [place] [address] 76784- 2081 Mar, [facility] [id number] [place] [address] 20054- 1814 Mar, Edema, unspecified type R60.9 and Anxiety F41.9 [facility] [id number] [place] [address] 83915- 8913 Mar, Social phobia F40.10 ; Mixed obsessional thoughts and acts F42.2 and Mild episode of recurrent major depressive disorder F33.0 [facility] [id number] [place] [address] 73911- 9373 Mar, Degenerative disc disease at L5-S1 level M51.36 [facility] [id number] [place] [address] 16608- 6485 Mar, [facility] [id number] [place] [address] 03269- 6775 Mar, [facility] [id number] [place] [address] 94198- 3585 Mar, [facility] [address] 64651- 8901 February, Morbid obesity E66.01 ; Anxiety F41.9 ; Degenerative disc disease at L5-S1 level M51.36 ; BPH (benign prostatic hyperplasia) N40.0 ; Social phobia F40.10 ; HTN (hypertension) I10 ; Edema, unspecified type R60.9 and Screening cholesterol level Z13.220 [facility] [id number] [place] [address] 21548- 5714 February, Social phobia, generalized F40.11 [facility] [id number] [place] [address] 36952- 0082 February, Chronic pain G89.29 [facility] [id number] [place] [address] 92538- 4854 February, [facility] [id number] [place] [address] 72628- 4576 Jan, Chronic pain G89.29 [facility] [id number] [place] [address] 15323- 2346 Jan, Panic disorder [episodic paroxysmal anxiety] without agoraphobia F41.0 [facility] [id number] [place] [address] 02932- 6896 Dec, Morbid obesity E66.01 ; Anxiety F41.9 ; Chronic pain G89.29 ; HTN (hypertension) I10 ; BPH (benign prostatic hyperplasia) N40.0 ; Generalized edema R60.1 and Cough R05 [facility] [id number] [place] [address] 32593 2546 14 Nov, 2016 Chronic pain G89.29 [facility] [id number] [place] [address] 65496 2546 03 Nov, 2016 Social phobia, generalized F40.11 and Mild episode of recurrent major depressive disorder F33.0 [facility] [id number] [place] [address] 49216 2546 Oct, Chronic pain G89.29 [facility] [id number] [place] [address] 31597 2546 Oct, Social phobia, generalized F40.11 [facility] [id number] [place] [address] 12275- 9816 Sep, [facility] [id number] [place] [address] 95362 2546 Sep, [facility] [id number] [place] [address] 45126 2546 Sep, [facility] [id number] [place] [address] 57960 2546 Sep, [facility] [id number] [place] [address] 53574 2546 Sep, [facility] [id number] [place] [address] 63347 2546 Sep, Social phobia, generalized F40.11 and Mild episode of recurrent major depressive disorder F33.0 [facility] [id number] [place] [address] 20194 2546 Sep, [facility] [id number] [place] [address] 95184 2546 Aug, [facility] [id number] [place] [address] 05726- 6339 Aug, [facility] [address] [place] [address] 97928- 4177 Aug, Bronchitis J40 [facility] [id number] [place] [address] 18795- 9769 15 Aug, 2016 [facility] [id number] [place] [address] 04626- 9631 Aug, Osteoarthritis of knee, unspecified M17.9 [facility] [id number] [place] [address] 00998- 7553 09 Aug, 2016 Morbid obesity E66.01 ; Chronic pain G89.29 ; Anxiety F41.9 ; Social phobia F40.10 ; HTN (hypertension) I10 ; Social phobia, generalized F40.11 ; Acute upper respiratory infection, unspecified J06.9 and Other viral agents as the cause of diseases classified elsewhere B97.89 [facility] [id number] [place] [address] 69681- 2227 Aug, Social phobia, generalized F40.11 and Dysthymic disorder F34.1 [facility] [id number] [place] [address] 12300- 8686 Jul, [facility] [id number] [place] [address] 59429- 0187 Jun, [facility] [id number] [place] [address] 32482- 8736 May, [facility] [id number] [place] [address] 49817- 2429 May, [facility] [id number] [place] [address] 01380- 8317 May, [facility] [id number] [place] [address] 99580- 3661 May, [facility] [id number] [place] [address] 02459- 2502 May, [facility] [address] [address]- 9848 May, [facility] [id number] [place] [address] 84026- 8124 May, [facility] [address] [address]- 8441 Apr, [facility] [id number] [place] [address] 04991- 8153 Apr, Chondromalacia, right knee M94.261 [facility] [address] [place] [address] 67533- 7365 Apr, Pain in unspecified hip M25.559 [facility] [id number] [place] [address] 94370- 8315 Mar, Social phobia, unspecified F40.10 and Pain in unspecified hip M25.559 [facility] [id number] [place] [address] 13612- 6269 February, [facility] [id number] [place] [address] 40674- 4354 February, Social phobia F40.10 [facility] [id number] [place] [address] 23695- 8516 February, Morbid obesity E66.01 ; Chronic pain G89.29 ; Social phobia F40.10 ; Pelvic pain in male R10.2 ; HTN (hypertension) I10 ; Degenerative disc disease at L5-S1 level M51.36 ; BPH (benign prostatic hyperplasia) N40.0 and Pain in right knee M25.561 [facility] [id number] [place] [address] 82099- 4058 Jan, [facility] [id number] [place] [address] 23863- 8527 Jan, [facility] [address] [place] [address] 64305- 5447 Jan, [facility] [place] [address] [place] [address] 96258- 4186 Dec, [facility] [id number] [place] [address] 09238- 5095 Dec, [facility] [id number] [place] [address] 34422- 1922 Dec, [facility] [address] 82044 -1441 Nov, Strep pharyngitis J02.0 ; Influenza A J10.1 and Cough R05 [facility] [address] 91413- 9865 Nov, [facility] [id number] [place] [address] 34624- 5908 Nov, [facility] [address] 99995- 1089 Oct, HTN (hypertension) I10 ; Morbid obesity E66.01 ; Anxiety F41.9 ; Social phobia F40.10 ; Panic disorder F41.0 ; Degenerative disc disease at L5-S1 level M51.36 and Hypercholesterolemia E78.0 [facility] [id number] [place] [address] 71071- 1766 Oct, Panic disorder [episodic paroxysmal anxiety] without agoraphobia F41.0 and Social phobia, generalized F40.11 [facility] [id number] [place] [address] 55374- 9195 Oct, [facility] [id number] [place] [address] 39609- 6959 Sep, [facility] [id number] [place] [address] 56453- 0330 Sep, [facility] [id number] [place] [address] 65834- 9381 Sep, [facility] [id number] [place] [address] 01266- 1188 Sep, [facility] [id number] [place] [address] 90583- 6413 Aug, [facility] [id number] [place] [address] 92929- 4400 Aug, [facility] [address] 50168- 6862 Aug, [facility] [address] 01262- 1553 Aug, Social phobia F40.10 and Panic disorder F41.0 [facility] [address] 35948- 2039 Aug, [facility] [address] 05739- 3229 Aug, [facility] [address] 23073- 1987 Aug, [facility] [id number] [place] [address] 05240- 3398 Aug, [facility] [address] 14163- 4368 Jul, [facility] [id number] [place] [address] 82877- 9923 Jul, Morbid obesity E66.01 ; Chronic pain G89.29 ; Anxiety F41.9 ; Social phobia F40.10 ; Panic disorder F41.0 ; Pelvic pain in male R10.2 ; Insomnia G47.00 and HTN (hypertension) I10 [facility] [address] 13777- 9533 Jul, [facility] [id number] [place] [address] 31102- 9862 Jul, [facility] [address] 80333- 9461 Jun, Degenerative disc disease 722.6 [facility] [address] [address]- 9255 Jun, Pain in joint, pelvic region and thigh 719.45 ; Morbid obesity 278.01 ; Essential hypertension, benign 401.1 and Constipation 564.00 [facility] [id number] [address]- 6077 May, [facility] [address] 34153- 7706 May, [facility] [id number] [place] [address] 66016- 1721 May, [facility] [id number] [place] [address] 05172- 2969 May, [facility] [id number] [place] [address] 18140- 8063 May, [facility] [id number] [place] [address] 71981- 5450 May, [facility] [id number] [place] [address] 52216- 0864 May, Essential hypertension, benign 401.1 ; Anxiety state, unspecified 300.00 ; Panic disorder without agoraphobia 300.01 ; Social phobia 300.23 ; Morbid obesity 278.01 ; Other chronic pain 338.29 and Insomnia 780.52 [facility] [id number] [place] [address] 08208- 8984 May, Essential hypertension 401.9 [facility] [id number] [place] [address] 11265- 0561 May, Pain in joint, pelvic region and thigh 719.45 [facility] [id number] [place] [address] 98223- 0391 May, Essential hypertension, benign 401.1 [facility] [id number] [place] [address] 06615- 8089 May, Panic disorder without agoraphobia 300.01 and Social phobia 300.23 [facility] [address] [address]- 3024 May, [facility] [id number] [address]- 3067 May, [facility] [id number] [place] [address] 04549- 3025 Apr, Chronic pain 338.29 [facility] [id number] [place] [address] 69994- 4553 Apr, [facility] [id number] [place] [address] 93114- 5746 Apr, [facility] [id number] [place] [address] 09405- 1839 Apr, [facility] [id number] [place] [address] 35418- 3383 Apr, [facility] [id number] [place] [address] 75632- 2189 Apr, [facility] [id number] [place] [address] [id number]- [phone] Apr, [facility] [id number] [place] [address] [id number]- [id number] Apr, [facility] [id number] [place] [address] [id number]- [phone] Apr, Essential hypertension, benign 401.1 ; Morbid obesity 278.01 ; Anxiety state, unspecified 300.00 ; Panic disorder without agoraphobia 300.01 ; Social phobia 300.23 and Chronic pain 338.29 [facility] [id number] [place] [address] [id number] Mar, [facility] [id number] [address] Mar, [facility] [id number] [address] Mar, [facility] [id number] [address] Mar, [facility] [id number] [place] [address] [id number]- [phone] Mar, Social phobia 300.23 and Panic disorder without agoraphobia 300.01 [facility] [id number] [place] [address] [id number]- [phone] Mar, [facility] [id number] [place] [address] [id number]- [phone] February, [facility] [id number] [place] [address] [id number]- [phone] February, Major depression, recurrent 296.30 and No condition on [place] II V71.09 [facility] [id number] [place] [id number] February, [facility] [id number] [place] [id number] February, Panic disorder without agoraphobia 300.01 ; Social phobia 300.23 and Morbid obesity 278.01 [facility] [id number] [address] Jan, [facility] [id number] [address] Jan, [facility] [id number] [address] Dec, [facility] [id number] [address] Dec, [facility] [id number] [address] Dec, [facility] [id number] [address] Dec, [facility] [id number] [address] Dec, [facility] [id number] [address] Dec, [facility] [id number] [address] Dec, [facility] [id number] [address] Dec, [facility] [id number], [place] [address] Dec, [facility] [id number] [address] Dec, [facility] [id number] [address] Dec, [facility] [address] [address] Dec, [facility] [id number] [address] Dec, [facility] [address] [address] Dec, [facility] [address] [address] Dec, [facility] [id number] [address] Dec, IMMUNIZATIONS No Known Immunizations SOCIAL HISTORY Never Assessed REASON FOR VISIT Lyrica note PLAN OF CARE VITAL SIGNS MEDICATIONS [...]
--- OUTSIDE RECORDS SUMMARY | 2018-11-30 17:46 | XMS REPORT ---
Author Author ROSE MARY BUCKNER [facility] Address [address] [place] [address] Care Team Providers Care Retail Wireless Sales Representative Name Role Phone ISA BUCKNERTA Unavailable PROBLEMS Type Condition ICD9-CM Code HGA96-EO Code Onset Dates Condition Status SNOMED Code Problem Type 2 diabetes mellitus with diabetic chronic kidney disease E11.22 Active 33678511 Problem Mixed hyperlipidemia E78.2 Active 414824341 Problem Primary insomnia F51.01 Active 6437762 Problem Major depressive disorder, recurrent, in full remission F33.42 Active 298105693 Problem Lymphedema I89.0 Active 776095094 Problem BMI 50.0-59.9, adult Z68.43 Active 656896389 Problem Constipation, unspecified constipation type K59.00 Active 16306416 Problem Chronic systolic congestive heart failure I50.22 Active 225478038 Problem Stasis dermatitis of both legs I87.2 Active 23906348 Problem Abnormal liver function test R94.5 Active 321670036 Problem Panic disorder F41.0 Active 290957852 Problem Controlled substance agreement terminated Z91.14 Active 201901527 Problem Cardiomegaly I51.7 Active 8109169 Problem Degenerative disc disease at L5-S1 level M51.36 Active 01067514 Problem BPH (benign prostatic hyperplasia) N40.0 Active 982496773 Problem Chronic pain G89.29 Active 59330230 Problem Dysthymic disorder F34.1 Active 11948015 Problem HTN (hypertension) I10 Active 71836640 Problem Mild episode of recurrent major depressive disorder F33.0 Active 807797912 ALLERGIES No Information ENCOUNTERS Encounter Location Date Diagnosis [facility] [address] [facility] [id number] [address] Aug, [facility] [address] [facility] [id number], [place] [address] Jun, [facility] [address] [facility] [id number] [place] [address] 40931- 1288 Jun, Dental examination Z01.20 [facility] [address] [id number] [place] [address] 72325- 4082 Jun, Tooth infection K04.7 ; BMI 40.0-44.9, adult Z68.41 and Mouth pain K13.79 [facility] [id number] [place] [address] 54515- 1776 Jun, Type 2 diabetes mellitus with diabetic chronic kidney disease E11.22 [facility] [id number] [place] [address] 84991- 9715 May, Degenerative disc disease at L5-S1 level M51.36 ; Chronic pain G89.29 and BMI 40.0-44.9, adult Z68.41 [facility] [id number] [place] [address] 78846- 0459 May, [facility] [id number] [place] [address] 78389- 1372 May, Type 2 diabetes mellitus with diabetic chronic kidney disease E11.22 [facility] [id number] [place] [address] 09738- 5634 May, [facility] [id number] [place] [address] 46141- 8482 May, Degenerative disc disease at L5-S1 level M51.36 [facility] [id number] [place] [address] 19856- 0804 May, [facility] [id number] [place] [address] 08336- 2031 May, [facility] [id number] [place] [address] 61846- 7793 May, [facility] [id number] [place] [address] 45393- 0926 Apr, Type 2 diabetes mellitus with diabetic chronic kidney disease E11.22 ; Chronic pain G89.29 ; Major depressive disorder, recurrent, in full remission F33.42 ; HTN (hypertension) I10 ; Chronic systolic congestive heart failure I50.22 ; Mixed hyperlipidemia E78.2 and BMI 45.0-49.9, adult Z68.42 [facility] [id number] [place] [address] 03517- 3680 18 Apr, 2018 Type 2 diabetes mellitus with diabetic chronic kidney disease E11.[address] 54025- 6915 17 Apr, 2018 Medicare annual wellness visit, [...] vaccine Z28.21 and Encounter for immunization Z23 [address] 21611- 9208 Apr, [place] [id number] [place] [address] 17728- 8999 Mar, Type 2 diabetes mellitus with diabetic chronic kidney disease E11.22 [facility] [id number] [place] [address] 10020- 0364 Mar, Chronic pain G89.[address] 71318- 4695 February, Chronic pain G89.29 ; Abnormal liver function test R94.5 and Degenerative disc disease at L5-S1 level M51.[address] 04322- 1725 Jan, [place] [address] 0[address]- 1969 Jan, [facility] [id number] [place] [address] 74323- 6267 Jan, [facility] [id number] [place] [address] 17974- 2678 Jan, Abnormal liver function test R94.5 ; Dysthymic disorder F34.1 and Chronic pain G89.29 [facility] [id number] [place] [address] 46887- 1134 Dec, [facility] [id number] [place] [address] 09719- 9996 Dec, HTN (hypertension) I10 ; BMI 45.0-49.9, adult Z68.42 ; Chronic pain G89.29 ; Primary insomnia F51.01 ; Mixed hyperlipidemia E78.2 ; Dysthymic disorder F34.1 ; Type 2 diabetes mellitus with diabetic chronic kidney disease E11.22 ; Stasis dermatitis of both legs I87.2 and Chronic systolic congestive heart failure I50.22 [facility] [id number] [place] [address] 79377- 0456 Dec, Chronic pain G89.29 [facility] [id number] [place] [address] 66003 -0764 Dec, Lymphedema I89.0 and Chronic systolic congestive heart failure I50.22 [facility] [id number] [place] [address] 44432- 8552 Dec, [facility] [id number] [place] [address] 20376- 5973 Nov, Type 2 diabetes mellitus with diabetic chronic kidney disease E11.22 [facility] [id number] [place] [address] 12962- 5905 Nov, Chronic pain G89.29 and Dysthymic disorder F34.1 [facility] [id number] [place] [address] 55474- 3528 Nov, [facility] [id number] [place] [address] 95260- 3894 30 Oct, 2017 HTN (hypertension) I10 ; Chronic pain G89.29 ; BMI 45.0-49.9 , adult Z68.42 ; Primary insomnia F51.01 ; Mixed hyperlipidemia E78.2 ; Dysthymic disorder F34.1 ; Type 2 diabetes mellitus with diabetic chronic kidney disease E11.22 ; Chronic congestive heart failure, unspecified congestive heart failure type I50.9 ; Acute non-recurrent maxillary sinusitis J01.00 and BMI 50.0-59.9, adult Z68.43 [facility] [id number] [place] [address] 52591- 9982 17 Oct, 2017 HTN (hypertension) I10 and Dysthymic disorder F34.1 [facility] [id number] [place] [address] 87576- 4355 Oct, [place] [address] 74004- 1419 Oct, HTN (hypertension) I10 [facility] [id number] [place] [address] 37705- 6739 11 Oct, 2017 Chronic pain G89.29 [facility] [id number] [place] [address] 20806- 9950 Sep, [facility] [id number] [place] [address] 91897- 9069 Sep, HTN (hypertension) I10 ; Chronic pain G89.29 ; BMI 45.0-49.9 , adult Z68.42 ; Primary insomnia F51.01 ; Mixed hyperlipidemia E78.2 ; Dysthymic disorder F34.1 and Type 2 diabetes mellitus with diabetic chronic kidney disease E11.22 [facility] [id number] [place] [address] 00302- 3725 18 Sep, 2017 Chronic pain G89.29 [facility] [id number] [place] [address] 05980- 1725 Sep, Acute on chronic heart failure, unspecified heart failure type I50.9 [facility] [address] [address] 3113 Sep, Acute on chronic heart failure, unspecified heart failure type I50.9 ; Type 2 diabetes mellitus with diabetic chronic kidney disease E11.22 and BMI 50.0-59.9, adult Z68.43 [facility] [id number] [place] [address] 73812- 7488 Sep, Acute on chronic heart failure, unspecified heart failure type I50.9 ; HTN (hypertension) I10 and Type 2 diabetes mellitus with diabetic chronic kidney disease E11.22 [facility] [id number] [place] [address] 82568- 9230 Aug, Acute on chronic heart failure, unspecified heart failure type I50.9 ; HTN (hypertension) I10 ; Type 2 diabetes mellitus with diabetic chronic kidney disease E11.22 ; Cellulitis of right lower extremity L03.115 and BMI 50.0-59.9, adult Z68.43 [facility] [id number] [place] [address] 61885 -1347 Aug, Acute upper respiratory infection, unspecified J06.9 ; Other viral agents as the cause of diseases classified elsewhere B97.89 ; Constipation, unspecified constipation type K59.00 ; BMI 50.0-59.9, adult Z68.43 and BMI 60.0-69.9, adult Z68.44 [facility] [id number] [place] [address] 84992- 3607 Aug, Chronic pain G89.29 [facility] [id number] [place] [address] 59920- 8492 Jul, Chronic pain G89.29 [facility] [id number] [place] [address] 66025- 5462 Jul, Chronic pain G89.29 [facility] [id number] [place] [address] 70269- 7949 Jun, Chronic pain G89.29 [place] [address] [place] [address] 1916 18 Jun, 2017 [facility] [id number] [place] [address] 26730- 7153 Jun, Chronic pain G89.29 [facility] [id number] [place] [address] 50029- 4595 May, Chronic pain G89.29 and Type 2 diabetes mellitus with diabetic chronic kidney disease E11.22 [facility] [id number] [place] [address] 42413- 4664 16 May, 2017 [facility] [id number] [place] [address] 09739- 7268 May, Chronic pain G89.29 and Anxiety F41.9 [facility] [id number] [place] [address] 81104- 2187 May, Type 2 diabetes mellitus with diabetic chronic kidney disease E11.22 ; Social phobia F40.10 ; Morbid obesity E66.01 ; Chronic pain G89.29 ; HTN (hypertension) I10 ; Degenerative disc disease at L5-S1 level M51.36 ; BPH (benign prostatic hyperplasia) N40.0 ; Pain in right knee M25.561 and 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 [facility] [id number] [place] [address] 44052- 9248 Apr, Anxiety F41.9 [facility] [id number] [place] [address] 53666- 0742 Apr, [facility] [id number] [place] [address] 77086- 7179 Mar, [facility] [id number] [place] [address] 46224- 1339 Mar, Edema, unspecified type R60.9 and Anxiety F41.9 [facility] [place] [id number] [place] [address] 05052- 3590 Mar, Social phobia F40.10 ; Mixed obsessional thoughts and acts F42.2 and Mild episode of recurrent major depressive disorder F33.0 [place] [id number] [place] [address] 23164- 2988 Mar, Degenerative disc disease at L5-S1 level M51.36 [facility] [id number] [place] [address] 13430- 1756 Mar, [place] [place] [id number] [place] [address] 46339- 2157 Mar, [facility] [id number] [place] [address] 17211- 2883 Mar, [place] [address] 23416- 9113 February, Morbid obesity E66.01 ; Anxiety F41.9 ; Degenerative disc disease at L5-S1 level M51.36 ; BPH (benign prostatic hyperplasia) N40.0 ; Social phobia F40.10 ; HTN (hypertension) I10 ; Edema, unspecified type R60.9 and Screening cholesterol level Z13.220 [place] [place] [id number] [place] [address] 03057- 6592 February, Social phobia, generalized F40.11 [facility] [address] [id number] [place] [address] 55862- 4166 February, Chronic pain G89.29 [facility] [address] [id number] [place] [address] 40467- 4993 February, [facility] [id number] [place] [address] 60431- 9575 Jan, Chronic pain G89.29 [facility] [id number] [place] [address] 71612- 2086 Jan, Panic disorder [episodic paroxysmal anxiety] without agoraphobia F41.0 [facility] [id number] [place] [address] 97437- 2502 Dec, Morbid obesity E66.01 ; Anxiety F41.9 ; Chronic pain G89.29 ; HTN (hypertension) I10 ; BPH (benign prostatic hyperplasia) N40.0 ; Generalized edema R60.1 and Cough R05 [facility] [id number] [place] [address] 25233 2546 14 Nov, 2016 Chronic pain G89.29 [facility] [id number] [place] [address] 50505 2546 03 Nov, 2016 Social phobia, generalized F40.11 and Mild episode of recurrent major depressive disorder F33.0 [facility] [id number] [place] [address] 93759 2546 Oct, Chronic pain G89.29 [facility] [id number] [place] [address] 48808 2546 Oct, Social phobia, generalized F40.11 [facility] [id number] [place] [address] 69569- 3386 Sep, [facility] [id number] [place] [address] 60210 2546 Sep, [facility] [id number] [place] [address] 83374 2546 Sep, [facility] [id number] [place] [address] 30364 2546 Sep, [facility] [id number] [place] [address] 28578 2546 Sep, [facility] [id number] [place] [address] 77781 2546 Sep, Social phobia, generalized F40.11 and Mild episode of recurrent major depressive disorder F33.0 [facility] [id number] [place] [address] 65782 2546 Sep, [facility] [id number] [place] [address] 40341 2546 Aug, [facility] [id number] [place] [address] 88998- 5205 Aug, [facility] [id number] [place] [address] 18464- 0247 Aug, Bronchitis J40 [facility] [id number] [place] [address] 49323- 9462 15 Aug, 2016 [facility] [id number] [place] [address] 42535- 4546 Aug, Osteoarthritis of knee, unspecified M17.9 [facility] [id number] [place] [address] 33126- 3644 09 Aug, 2016 Morbid obesity E66.01 ; Chronic pain G89.29 ; Anxiety F41.9 ; Social phobia F40.10 ; HTN (hypertension) I10 ; Social phobia, generalized F40.11 ; Acute upper respiratory infection, unspecified J06.9 and Other viral agents as the cause of diseases classified elsewhere B97.89 [facility] [id number] [place] [address] 61737- 5091 Aug, Social phobia, generalized F40.11 and Dysthymic disorder F34.1 [facility] [id number] [place] [address] 93125- 0336 Jul, [facility] [id number] [place] [address] 29284- 8808 Jun, [facility] [id number] [place] [address] 81682- 6846 May, [facility] [id number] [place] [address] 54554- 3971 May, [facility] [id number] [place] [address] 08917- 1978 May, [facility] [id number] [place] [address] 72857- 7370 May, [facility] [id number] [place] [address] 66491- 3475 May, [facility] [address] [address]- 3457 May, [facility] [id number] [place] [address] 67192- 9087 May, [facility] [address] [address]- 0334 Apr, [facility] [id number] [place] [address] 48025- 0660 Apr, Chondromalacia, right knee M94.261 [facility] [id number] [place] [address] 17062- 8944 Apr, Pain in unspecified hip M25.559 [facility] [id number] [place] [address] 78127- 5581 Mar, Social phobia, unspecified F40.10 and Pain in unspecified hip M25.559 [facility] [id number] [place] [address] 69421- 2781 February, [facility] [id number] [place] [address] 42617- 9941 February, Social phobia F40.10 [facility] [id number] [place] [address] 28268- 1563 February, Morbid obesity E66.01 ; Chronic pain G89.29 ; Social phobia F40.10 ; Pelvic pain in male R10.2 ; HTN (hypertension) I10 ; Degenerative disc disease at L5-S1 level M51.36 ; BPH (benign prostatic hyperplasia) N40.0 and Pain in right knee M25.561 [facility] [id number] [place] [address] 60308- 6938 Jan, [facility] [id number] [place] [address] 15384- 1215 Jan, [facility] [id number] [place] [address] 78653- 5688 Jan, [place] [id number] [place] [address] 92244- 6082 Dec, [facility] [id number] [place] [address] 78623- 7106 Dec, [facility] [id number] [place] [address] 64725- 3992 Dec, [facility] [address] 50475 -1102 Nov, Strep pharyngitis J02.0 ; Influenza A J10.1 and Cough R05 [facility] [address] 71055- 4960 Nov, [facility] [id number] [place] [address] 55150- 9921 Nov, [facility] [address] 41796- 2440 Oct, HTN (hypertension) I10 ; Morbid obesity E66.01 ; Anxiety F41.9 ; Social phobia F40.10 ; Panic disorder F41.0 ; Degenerative disc disease at L5-S1 level M51.36 and Hypercholesterolemia E78.0 [facility] [id number] [place] [address] 51256- 7748 Oct, Panic disorder [episodic paroxysmal anxiety] without agoraphobia F41.0 and Social phobia, generalized F40.11 [facility] [id number] [place] [address] 30483- 9763 Oct, [facility] [id number] [place] [address] 72325- 2721 Sep, [facility] [id number] [place] [address] 34878- 4860 Sep, [facility] [id number] [place] [address] 33559- 3316 Sep, [facility] [id number] [place] [address] 27692- 6567 Sep, [facility] [id number] [place] [address] 80058- 4607 Aug, [facility] [id number] [place] [address] 80822- 7391 Aug, [facility] [address] 34985- 4286 Aug, [facility] [address] 26547- 4378 Aug, Social phobia F40.10 and Panic disorder F41.0 [facility] [address] 04200- 3629 Aug, [facility] [address] 07621- 6414 Aug, [facility] [address] 76483- 4168 Aug, [facility] [id number] [place] [address] 24066- 4727 Aug, [facility] [address] 26031- 4938 Jul, [facility] [id number] [place] [address] 89531- 8567 Jul, Morbid obesity E66.01 ; Chronic pain G89.29 ; Anxiety F41.9 ; Social phobia F40.10 ; Panic disorder F41.0 ; Pelvic pain in male R10.2 ; Insomnia G47.00 and HTN (hypertension) I10 [facility] [address] 87274- 4355 Jul, [facility] [id number] [place] [address] 49203- 4405 Jul, [facility] [address] 73933- 2069 Jun, Degenerative disc disease 722.6 [facility] [address] [address]- 8993 Jun, Pain in joint, pelvic region and thigh 719.45 ; Morbid obesity 278.01 ; Essential hypertension, benign 401.1 and Constipation 564.00 [facility] [id number] [address]- 5036 May, [facility] [address] [address] May, [facility] [id number] [place] [address] May, [facility] [id number] [place] [address]- [address]80 May, [facility] [id number] [place] [address]- 2271 May, [facility] [id number] [place] [address] 14365- 3088 May, [facility] [id number] [place] [address] 84150- 2608 May, Essential hypertension, benign 401.1 ; Anxiety state, unspecified 300.00 ; Panic disorder without agoraphobia 300.01 ; Social phobia 300.23 ; Morbid obesity 278.01 ; Other chronic pain 338.29 and Insomnia 780.52 [facility] [id number] [place] [address] 27390- 2989 May, Essential hypertension 401.9 [facility] [id number] [place] [address]80- [address]116 May, Pain in joint, pelvic region and thigh 719.45 [facility] [id number] [place] [address] 6[address]- [address] May, Essential hypertension, benign 401.1 [facility] [id number] [place] [address] 69752- [address]110 May, Panic disorder without agoraphobia 300.01 and Social phobia 300.23 [facility] [id number] [address] May, [facility] [id number] [address] May, [facility] [id number] [place] [address]- [address]684 Apr, Chronic pain 338.29 [facility] [id number] [place] [address] 88647- 9717 Apr, [facility] [id number] [place] [address] 97833- 9609 Apr, [facility] [id number] [place] [address] [id number]- 1040 Apr, [facility] [id number] [place] [address] 95626- 3462 Apr, [facility] [id number] [place] [address] 01735- 2635 Apr, [facility] [id number] [place] [address] 58047- 6701 Apr, [facility] [id number] [place] [address] 14335- 7857 Apr, [facility] [address] [id number] [place] [address]- [address]77 Apr, Essential hypertension, benign 401.1 ; Morbid obesity 278.01 ; Anxiety state, unspecified 300.00 ; Panic disorder without agoraphobia 300.01 ; Social phobia 300.23 and Chronic pain 338.29 [facility] [id number] [place] [address] [id number] Mar, [facility] [id number] [address] Mar, [facility] [id number] [address] Mar, [facility] [id number] [address] Mar, [facility] [id number] [place] [address]- 7662 Mar, Social phobia 300.23 and Panic disorder without agoraphobia 300.01 [facility] [id number] [place] [address]4216- 6281 Mar, [facility] [id number] [place] [id number]- 7685 February, [facility] [id number] [place] [address]64- [address]69 February, Major depression, recurrent 296.30 and No condition on Orlando II V71.09 [facility] [id number] [place] [phone]- 0172 February, [facility] [id number] [place] [address] 10367- 0880 February, Panic disorder without agoraphobia 300.01 ; Social phobia 300.23 and Morbid obesity 278.01 [facility] [id number] [address] Jan, [facility] [id number] [address] Jan, [facility] [id number] [address] Dec, [facility] [id number] [address] Dec, [facility] [id number] [address] Dec, [facility] [id number] [address] Dec, [facility] [id number] [address]99 Dec, [facility] [id number] [address] Dec, [facility] [id number] [address] Dec, [facility] [id number] [address] Dec, [facility] [id number] [address] Dec, [facility] [id number] [address] 67[address] Dec, [facility] [id number] [address] Dec, [facility] [id number] [address] Dec, [facility] [id number] [address] 1371 Dec, [facility] [id number] [address] Dec, [facility] [id number] [address] 1665 Dec, [facility] [id number] [address]140 Dec, IMMUNIZATIONS No Known Immunizations SOCIAL HISTORY [...]
--- OUTSIDE RECORDS SUMMARY | 2018-11-30 17:47 | XMS REPORT ---
Author Author ROSE MARY BUCKNER [facility] Address [address] [place] [address] Care Team Providers [employer] Vice President Name Role Phone ISA BUCKNERTA Unavailable PROBLEMS Type Condition ICD9-CM Code IDX66-IC Code Onset Dates Condition Status SNOMED Code Problem Type 2 diabetes mellitus with diabetic chronic kidney disease E11.22 Active 16411726 Problem Mixed hyperlipidemia E78.2 Active 848255888 Problem Primary insomnia F51.01 Active 8988670 Problem Major depressive disorder, recurrent, in full remission F33.42 Active 179893185 Problem Lymphedema I89.0 Active 203376517 Problem BMI 50.0-59.9, adult Z68.43 Active 618787590 Problem Constipation, unspecified constipation type K59.00 Active 67193886 Problem Chronic systolic congestive heart failure I50.22 Active 406462806 Problem Stasis dermatitis of both legs I87.2 Active 07562044 Problem Abnormal liver function test R94.5 Active 799539192 Problem Panic disorder F41.0 Active 612137624 Problem Controlled substance agreement terminated Z91.14 Active 183846199 Problem Cardiomegaly I51.7 Active 2738602 Problem Degenerative disc disease at L5-S1 level M51.36 Active 71062099 Problem BPH (benign prostatic hyperplasia) N40.0 Active 265246220 Problem Chronic pain G89.29 Active 82090853 Problem Dysthymic disorder F34.1 Active 68478346 Problem HTN (hypertension) I10 Active 09796188 Problem Mild episode of recurrent major depressive disorder F33.0 Active 394378100 ALLERGIES No Information ENCOUNTERS Encounter Location Date Diagnosis [facility] [address] [facility] [id number] [address] Aug, [facility] [address] [facility] [id number], [place] [address] Jun, [facility] [address] [facility] [id number] [place] [address] 29571- 9773 Jun, Dental examination Z01.20 [facility] [id number] [place] [address] 89768- 4487 Jun, Tooth infection K04.7 ; BMI 40.0-44.9, adult Z68.41 and Mouth pain K13.79 [facility] [id number] [place] [address] 11643- 4865 Jun, Type 2 diabetes mellitus with diabetic chronic kidney disease E11.22 [facility] [id number] [place] [address] 88014- 5031 May, Degenerative disc disease at L5-S1 level M51.36 ; Chronic pain G89.29 and BMI 40.0-44.9, adult Z68.41 [facility] [id number] [place] [address] 86807- 6771 May, [facility] [id number] [place] [address] 27799- 2195 May, Type 2 diabetes mellitus with diabetic chronic kidney disease E11.22 [facility] [id number] [place] [address] 90630- 9723 May, [facility] [id number] [place] [address] 64658- 8047 May, Degenerative disc disease at L5-S1 level M51.36 [facility] [id number] [place] [address] 89411- 5206 May, [facility] [id number] [place] [address] 65597- 6716 May, [facility] [id number] [place] [address] 29069- 8532 May, [facility] [address] [place] [address] 30771- 6347 Apr, Type 2 diabetes mellitus with diabetic chronic kidney disease E11.22 ; Chronic pain G89.29 ; Major depressive disorder, recurrent, in full remission F33.42 ; HTN (hypertension) I10 ; Chronic systolic congestive heart failure I50.22 ; Mixed hyperlipidemia E78.2 and BMI 45.0-49.9, adult Z68.42 [place] [id number] [place] [address] 10929- 1883 18 Apr, 2018 Type 2 diabetes mellitus with diabetic chronic kidney disease E11.[address] 7[address]33- 6514 17 Apr, 2018 Medicare annual wellness visit, [...] vaccine Z28.21 and Encounter for immunization Z23 [address] 11350- 9856 Apr, [place] [id number] [place] [address] 82315- 6427 Mar, Type 2 diabetes mellitus with diabetic chronic kidney disease E11.22 [facility] [id number] [place] [address] 61984- 0422 Mar, Chronic pain G89.[address] 61437- 0191 February, Chronic pain G89.29 ; Abnormal liver function test R94.5 and Degenerative disc disease at L5-S1 level M51.[address] 68307- 8235 Jan, [place] [address] 17264- 9685 Jan, [facility] [id number] [place] [address] 44762- 8434 Jan, [facility] [id number] [place] [address] 22720- 3719 Jan, Abnormal liver function test R94.5 ; Dysthymic disorder F34.1 and Chronic pain G89.29 [facility] [id number] [place] [address] 50813- 6636 Dec, [facility] [id number] [place] [address] 34169- 8281 Dec, HTN (hypertension) I10 ; BMI 45.0-49.9, adult Z68.42 ; Chronic pain G89.29 ; Primary insomnia F51.01 ; Mixed hyperlipidemia E78.2 ; Dysthymic disorder F34.1 ; Type 2 diabetes mellitus with diabetic chronic kidney disease E11.22 ; Stasis dermatitis of both legs I87.2 and Chronic systolic congestive heart failure I50.22 [facility] [id number] [place] [address] 51845- 5825 Dec, Chronic pain G89.29 [facility] [id number] [place] [address] 74653 -6316 Dec, Lymphedema I89.0 and Chronic systolic congestive heart failure I50.22 [facility] [id number] [place] [address] 23719- 6082 Dec, [facility] [id number] [place] [address] 19696- 9809 Nov, Type 2 diabetes mellitus with diabetic chronic kidney disease E11.22 [facility] [id number] [place] [address] 47661- 7252 Nov, Chronic pain G89.29 and Dysthymic disorder F34.1 [facility] [id number] [place] [address] 48924- 5469 Nov, [facility] [address] [place] [address] 18080- 1631 30 Oct, 2017 HTN (hypertension) I10 ; Chronic pain G89.29 ; BMI 45.0-49.9 , adult Z68.42 ; Primary insomnia F51.01 ; Mixed hyperlipidemia E78.2 ; Dysthymic disorder F34.1 ; Type 2 diabetes mellitus with diabetic chronic kidney disease E11.22 ; Chronic congestive heart failure, unspecified congestive heart failure type I50.9 ; Acute non-recurrent maxillary sinusitis J01.00 and BMI 50.0-59.9, adult Z68.43 [facility] [id number] [place] [address] 29799- 1436 17 Oct, 2017 HTN (hypertension) I10 and Dysthymic disorder F34.1 [facility] [id number] [place] [address] 75110- 6352 Oct, [place] [address] 75942- 8938 Oct, HTN (hypertension) I10 [facility] [id number] [place] [address] 44885- 0731 11 Oct, 2017 Chronic pain G89.29 [facility] [id number] [place] [address] 21833- 0070 Sep, [facility] [id number] [place] [address] 80328- 6402 Sep, HTN (hypertension) I10 ; Chronic pain G89.29 ; BMI 45.0-49.9 , adult Z68.42 ; Primary insomnia F51.01 ; Mixed hyperlipidemia E78.2 ; Dysthymic disorder F34.1 and Type 2 diabetes mellitus with diabetic chronic kidney disease E11.22 [facility] [id number] [place] [address] 03195- 6044 18 Sep, 2017 Chronic pain G89.29 [facility] [id number] [place] [address] 36541- 8446 Sep, Acute on chronic heart failure, unspecified heart failure type I50.9 [facility] [address] [address] 6052 Sep, Acute on chronic heart failure, unspecified heart failure type I50.9 ; Type 2 diabetes mellitus with diabetic chronic kidney disease E11.22 and BMI 50.0-59.9, adult Z68.43 [facility] [id number] [place] [address] 87589- 2960 Sep, Acute on chronic heart failure, unspecified heart failure type I50.9 ; HTN (hypertension) I10 and Type 2 diabetes mellitus with diabetic chronic kidney disease E11.22 [facility] [place] [id number] [place] [address] 35445- 6686 Aug, Acute on chronic heart failure, unspecified heart failure type I50.9 ; HTN (hypertension) I10 ; Type 2 diabetes mellitus with diabetic chronic kidney disease E11.22 ; Cellulitis of right lower extremity L03.115 and BMI 50.0-59.9, adult Z68.43 [facility] [id number] [place] [address] 83841 -6083 Aug, Acute upper respiratory infection, unspecified J06.9 ; Other viral agents as the cause of diseases classified elsewhere B97.89 ; Constipation, unspecified constipation type K59.00 ; BMI 50.0-59.9, adult Z68.43 and BMI 60.0-69.9, adult Z68.44 [facility] [id number] [place] [address] 58197- 4962 Aug, Chronic pain G89.29 [facility] [place] [id number] [place] [address] 96384- 0113 Jul, Chronic pain G89.29 [facility] [id number] [place] [address] 77966- 9662 Jul, Chronic pain G89.29 [facility] [id number] [place] [address] 47267- 1075 Jun, Chronic pain G89.29 [place] [address] [place] [address]- 1148 18 Jun, 2017 [place] [id number] [place] [address] 99394- 1005 Jun, Chronic pain G89.29 [facility] [id number] [place] [address] 86159- 1129 May, Chronic pain G89.29 and Type 2 diabetes mellitus with diabetic chronic kidney disease E11.22 [facility] [id number] [place] [address] 11837- 9732 16 May, 2017 [place] [id number] [place] [address] 68365- 4706 May, Chronic pain G89.29 and Anxiety F41.9 [place] [id number] [place] [address] 06460- 5748 May, Type 2 diabetes mellitus with diabetic chronic kidney disease E11.22 ; Social phobia F40.10 ; Morbid obesity E66.01 ; Chronic pain G89.29 ; HTN (hypertension) I10 ; Degenerative disc disease at L5-S1 level M51.36 ; BPH (benign prostatic hyperplasia) N40.0 ; Pain in right knee M25.561 and 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 [facility] [id number] [place] [address] 94968- 8654 Apr, Anxiety F41.9 [facility] [id number] [place] [address] 48811- 8550 Apr, [facility] [id number] [place] [address] 56895- 8933 Mar, [facility] [id number] [place] [address] 28358- 8379 Mar, Edema, unspecified type R60.9 and Anxiety F41.9 [facility] [id number] [place] [address] 58815- 5806 Mar, Social phobia F40.10 ; Mixed obsessional thoughts and acts F42.2 and Mild episode of recurrent major depressive disorder F33.0 [place] [address] [place] [address] 88339- 7382 Mar, Degenerative disc disease at L5-S1 level M51.36 [facility] [id number] [place] [address] 08919- 9425 Mar, [place] [id number] [place] [address] 41084- 1991 Mar, [place] [id number] [place] [address] 79337- 6703 Mar, [place] [address] 35328- 0789 February, Morbid obesity E66.01 ; Anxiety F41.9 ; Degenerative disc disease at L5-S1 level M51.36 ; BPH (benign prostatic hyperplasia) N40.0 ; Social phobia F40.10 ; HTN (hypertension) I10 ; Edema, unspecified type R60.9 and Screening cholesterol level Z13.220 [place] [id number] [place] [address] 63002- 0940 February, Social phobia, generalized F40.11 [place] [id number] [place] [address] 05413- 4276 February, Chronic pain G89.29 [place] [id number] [place] [address] 36107- 0682 February, [place] [id number] [place] [address] 03913- 2040 Jan, Chronic pain G89.29 [place] [id number] [place] [address] 49278- 7393 Jan, Panic disorder [episodic paroxysmal anxiety] without agoraphobia F41.0 [facility] [id number] [place] [address] 57615- 1818 Dec, Morbid obesity E66.01 ; Anxiety F41.9 ; Chronic pain G89.29 ; HTN (hypertension) I10 ; BPH (benign prostatic hyperplasia) N40.0 ; Generalized edema R60.1 and Cough R05 [facility] [id number] [place] [address] 84629 2546 14 Nov, 2016 Chronic pain G89.29 [facility] [id number] [place] [address] 42339 2546 03 Nov, 2016 Social phobia, generalized F40.11 and Mild episode of recurrent major depressive disorder F33.0 [facility] [id number] [place] [address] 45664 2546 Oct, Chronic pain G89.29 [facility] [id number] [place] [address] 17048 2546 Oct, Social phobia, generalized F40.11 [facility] [id number] [place] [address] 38413- 7756 Sep, [facility] [id number] [place] [address] 80138 2546 Sep, [facility] [id number] [place] [address] 50999 2546 Sep, [facility] [id number] [place] [address] 04996 2546 Sep, [facility] [id number] [place] [address] 92290 2546 Sep, [facility] [id number] [place] [address] 12183 2546 Sep, Social phobia, generalized F40.11 and Mild episode of recurrent major depressive disorder F33.0 [facility] [id number] [place] [address] 41345 2546 Sep, [facility] [id number] [place] [address] 46207 2546 Aug, [facility] [id number] [place] [address] 24468- 2091 Aug, [facility] [address] [place] [address] 41126- 9620 Aug, Bronchitis J40 [facility] [id number] [place] [address] 78031- 9347 15 Aug, 2016 [facility] [id number] [place] [address] 21543- 0355 Aug, Osteoarthritis of knee, unspecified M17.9 [facility] [id number] [place] [address] 22336- 4106 09 Aug, 2016 Morbid obesity E66.01 ; Chronic pain G89.29 ; Anxiety F41.9 ; Social phobia F40.10 ; HTN (hypertension) I10 ; Social phobia, generalized F40.11 ; Acute upper respiratory infection, unspecified J06.9 and Other viral agents as the cause of diseases classified elsewhere B97.89 [facility] [id number] [place] [address] 27596- 3366 Aug, Social phobia, generalized F40.11 and Dysthymic disorder F34.1 [facility] [id number] [place] [address] 69486- 0049 Jul, [facility] [id number] [place] [address] 62907- 8860 Jun, [facility] [id number] [place] [address] 02538- 8032 May, [facility] [id number] [place] [address] 34904- 1117 May, [facility] [id number] [place] [address] 53302- 1190 May, [facility] [id number] [place] [address] 88126- 9651 May, [facility] [id number] [place] [address] 85992- 2536 May, [facility] [address] [address]- 8718 May, [facility] [id number] [place] [address] 60625- 6481 May, [facility] [address] [address]- 8212 Apr, [facility] [id number] [place] [address] 08250- 4100 Apr, Chondromalacia, right knee M94.261 [facility] [address] [place] [address] 65879- 8386 Apr, Pain in unspecified hip M25.559 [facility] [id number] [place] [address] 92888- 2746 Mar, Social phobia, unspecified F40.10 and Pain in unspecified hip M25.559 [facility] [id number] [place] [address] 05051- 5300 February, [facility] [id number] [place] [address] 11603- 2495 February, Social phobia F40.10 [facility] [id number] [place] [address] 25440- 6802 February, Morbid obesity E66.01 ; Chronic pain G89.29 ; Social phobia F40.10 ; Pelvic pain in male R10.2 ; HTN (hypertension) I10 ; Degenerative disc disease at L5-S1 level M51.36 ; BPH (benign prostatic hyperplasia) N40.0 and Pain in right knee M25.561 [facility] [id number] [place] [address] 95053- 1316 Jan, [facility] [id number] [place] [address] 83257- 1692 Jan, [facility] [address] [place] [address] 31245- 2896 Jan, [place] [address] [place] [address] 76986- 4123 Dec, [facility] [id number] [place] [address] 02686- 5016 Dec, [facility] [id number] [place] [address] 17243- 8773 Dec, [facility] [address] 68129 -2636 Nov, Strep pharyngitis J02.0 ; Influenza A J10.1 and Cough R05 [facility] [address] 72730- 9298 Nov, [facility] [id number] [place] [address] 34097- 9331 Nov, [facility] [address] 36637- 1209 Oct, HTN (hypertension) I10 ; Morbid obesity E66.01 ; Anxiety F41.9 ; Social phobia F40.10 ; Panic disorder F41.0 ; Degenerative disc disease at L5-S1 level M51.36 and Hypercholesterolemia E78.0 [facility] [id number] [place] [address] 79160- 9651 Oct, Panic disorder [episodic paroxysmal anxiety] without agoraphobia F41.0 and Social phobia, generalized F40.11 [facility] [id number] [place] [address] 40934- 8721 Oct, [facility] [id number] [place] [address] 67895- 8532 Sep, [facility] [id number] [place] [address] 36153- 8237 Sep, [facility] [id number] [place] [address] 43899- 3161 Sep, [facility] [id number] [place] [address] 00812- 0461 Sep, [facility] [id number] [place] [address] 54976- 0647 Aug, [facility] [id number] [place] [address] 83005- 5736 Aug, [facility] [address] 22432- 3138 Aug, [facility] [address] 77363- 4708 Aug, Social phobia F40.10 and Panic disorder F41.0 [facility] [address] 04347- 1716 Aug, [facility] [address] 81960- 0564 Aug, [facility] [address] 87002- 3096 Aug, [facility] [id number] [place] [address] 66385- 0490 Aug, [facility] [address] 48518- 2751 Jul, [facility] [id number] [place] [address] 73278- 0022 Jul, Morbid obesity E66.01 ; Chronic pain G89.29 ; Anxiety F41.9 ; Social phobia F40.10 ; Panic disorder F41.0 ; Pelvic pain in male R10.2 ; Insomnia G47.00 and HTN (hypertension) I10 [facility] [address] 93881- 0630 Jul, [facility] [id number] [place] [address] 91076- 5932 Jul, [facility] [address] 43788- 9096 Jun, Degenerative disc disease 722.6 [facility] [address] [address]- 7607 Jun, Pain in joint, pelvic region and thigh 719.45 ; Morbid obesity 278.01 ; Essential hypertension, benign 401.1 and Constipation 564.00 [facility] [id number] [address]- 9889 May, [facility] [address] 83519- 7073 May, [facility] [id number] [place] [address] 45615- 8569 May, [facility] [id number] [place] [address] 96143- 7236 May, [facility] [id number] [place] [address] 38502- 6656 May, [facility] [id number] [place] [address] 16639- 5396 May, [facility] [id number] [place] [address] 81384- 8761 May, Essential hypertension, benign 401.1 ; Anxiety state, unspecified 300.00 ; Panic disorder without agoraphobia 300.01 ; Social phobia 300.23 ; Morbid obesity 278.01 ; Other chronic pain 338.29 and Insomnia 780.52 [facility] [id number] [place] [address] 80522- 6570 May, Essential hypertension 401.9 [facility] [address] [place] [address] 68547- 1576 May, Pain in joint, pelvic region and thigh 719.45 [facility] [id number] [place] [address] 41818- 0932 May, Essential hypertension, benign 401.1 [facility] [id number] [place] [address] 14212- 1260 May, Panic disorder without agoraphobia 300.01 and Social phobia 300.23 [facility] [address] [address]- 5249 May, [facility] [id number] [address] May, [facility] [id number] [place] [address] [id number]- 3122 Apr, Chronic pain 338.29 [facility] [id number] [place] [address] [id number]- [phone] Apr, [facility] [id number] [place] [address] [phone]- [phone] Apr, [facility] [id number] [place] [address] 12437- 2643 Apr, [facility] [id number] [place] [address] [phone]- [phone] Apr, [facility] [id number] [place] [address] 29932- 3067 Apr, [facility] [id number] [place] [address] 73527- 7176 Apr, [facility] [id number] [place] [address] 74343- 6389 Apr, [facility] [id number] [place] [address] [phone]- 1226 Apr, Essential hypertension, benign 401.1 ; Morbid obesity 278.01 ; Anxiety state, unspecified 300.00 ; Panic disorder without agoraphobia 300.01 ; Social phobia 300.23 and Chronic pain 338.29 [facility] [id number] [place] [address] [id number] Mar, [facility] [id number] [address] 6304 Mar, [facility] [id number] [address] Mar, [facility] [id number] [address] Mar, [facility] [id number] [place] [address] Mar, Social phobia 300.23 and Panic disorder without agoraphobia 300.01 [facility] [id number] [place] [address]- [address] Mar, [facility] [id number] [place] [address]- [address] February, [facility] [id number] [place] [address]- [address]6 February, Major depression, recurrent 296.30 and No condition on [place] II V71.09 [facility] [id number] [place] [address]- 3727 February, [facility] [id number] [place] [address]- 9933 February, Panic disorder without agoraphobia 300.01 ; Social phobia 300.23 and Morbid obesity 278.01 [facility] [id number] [address] Jan, [facility] [id number] [address] Jan, [facility] [id number] [address] Dec, [facility] [id number] [address] Dec, [facility] [id number] [address] Dec, [facility] [id number] [address] Dec, [facility] [id number] [address] Dec, [facility] [id number] [address] Dec, [facility] [id number] [address] Dec, [facility] [id number] [address] Dec, [facility] [id number] [address] Dec, [facility] [id number] [address] Dec, [facility] [id number] [address] Dec, [facility] [id number] [address] Dec, [facility] [id number] [address] Dec, [facility] [id number] [address] Dec, [facility] [id number] [address] Dec, [facility] [id number] [address] Dec, IMMUNIZATIONS No Known Immunizations SOCIAL HISTORY Never Assessed REASON FOR VISIT [facility] call PLAN OF CARE VITAL SIGNS MEDICATIONS Medication Instructions Dosage Frequency Start Date End Date Duration Status Lyrica 75 MG Orally twice a day 1 capsule 12h May, 28 days Active RESULTS No Results PROCEDURES [...]
--- OUTSIDE RECORDS SUMMARY | 2018-11-30 17:47 | XMS REPORT ---
Author Author ROSE MARY BUCKNER [facility] Address [address] [place] [address] Care Team Providers Care It Sales Representative Name Role Phone ISA BUCKNERTA Unavailable PROBLEMS Type Condition ICD9-CM Code BNT58-SA Code Onset Dates Condition Status SNOMED Code Problem Type 2 diabetes mellitus with diabetic chronic kidney disease E11.22 Active 15617932 Problem Mixed hyperlipidemia E78.2 Active 735865965 Problem Primary insomnia F51.01 Active 5000441 Problem Major depressive disorder, recurrent, in full remission F33.42 Active 375437998 Problem Lymphedema I89.0 Active 473506708 Problem BMI 50.0-59.9, adult Z68.43 Active 587984700 Problem Constipation, unspecified constipation type K59.00 Active 61233161 Problem Chronic systolic congestive heart failure I50.22 Active 187277995 Problem Stasis dermatitis of both legs I87.2 Active 45309983 Problem Abnormal liver function test R94.5 Active 963902208 Problem Panic disorder F41.0 Active 787228211 Problem Controlled substance agreement terminated Z91.14 Active 431279248 Problem Cardiomegaly I51.7 Active 6456320 Problem Degenerative disc disease at L5-S1 level M51.36 Active 41157104 Problem BPH (benign prostatic hyperplasia) N40.0 Active 630949506 Problem Chronic pain G89.29 Active 34315264 Problem Dysthymic disorder F34.1 Active 50162215 Problem HTN (hypertension) I10 Active 57899060 Problem Mild episode of recurrent major depressive disorder F33.0 Active 910337150 ALLERGIES No Information ENCOUNTERS Encounter Location Date Diagnosis [facility] [address] [facility] [id number] [address] Aug, [facility] [address] [facility] [id number], [place] [address] Jun, [facility] [address] [facility] [id number] [place] [address] 53361- 8608 Jun, Dental examination Z01.20 [facility] [address] [place] [id number] [place] [address] 16739- 0906 Jun, Tooth infection K04.7 ; BMI 40.0-44.9, adult Z68.41 and Mouth pain K13.79 [facility] [address] [place] [id number] [place] [address] 20056- 8747 Jun, Type 2 diabetes mellitus with diabetic chronic kidney disease E11.22 [facility] [address] [place] [id number] [place] [address] 20453- 7823 May, Degenerative disc disease at L5-S1 level M51.36 ; Chronic pain G89.29 and BMI 40.0-44.9, adult Z68.41 [facility] [address] [id number] [place] [address] 57988- 0919 May, [facility] [address] [id number] [place] [address] 58874- 6112 May, Type 2 diabetes mellitus with diabetic chronic kidney disease E11.22 [facility] [address] [place] [id number] [place] [address] 26540- 0877 May, [facility] [address] [id number] [place] [address] 63353- 8987 May, Degenerative disc disease at L5-S1 level M51.36 [facility] [address] [place] [id number] [place] [address] 96495- 5091 May, [facility] [address] [place] [address] 80968- 5443 May, [facility] [address] [place] [id number] [place] [address] 81480- 6878 May, [facility] [address] [place] [address] 49696- 1172 Apr, Type 2 diabetes mellitus with diabetic chronic kidney disease E11.22 ; Chronic pain G89.29 ; Major depressive disorder, recurrent, in full remission F33.42 ; HTN (hypertension) I10 ; Chronic systolic congestive heart failure I50.22 ; Mixed hyperlipidemia E78.2 and BMI 45.0-49.9, adult Z68.42 [place] [address] [address] [id number] [place] [address] 24434- 0027 18 Apr, 2018 Type 2 diabetes mellitus with diabetic chronic kidney disease E11.[address] 95598- 5741 17 Apr, 2018 Medicare annual wellness visit, [...] Z28.21 and Encounter for immunization Z23 [address] 64946- 6774 Apr, [place] [id number] [place] [address] 79264- 2191 Mar, Type 2 diabetes mellitus with diabetic chronic kidney disease E11.22 [place] [address] [place] [id number] [place] [address] 88824- 6509 Mar, Chronic pain G89.[address] 17549- 1514 February, Chronic pain G89.29 ; Abnormal liver function test R94.5 and Degenerative disc disease at L5-S1 level M51.[address] 86685- 4671 Jan, [place] [address] 24362- 4009 Jan, [facility] [address] [id number] [place] [address] 74062- 0725 Jan, [facility] [address] [id number] [place] [address] 54556- 4395 Jan, Abnormal liver function test R94.5 ; Dysthymic disorder F34.1 and Chronic pain G89.29 [facility] [address] [address] [id number] [place] [address] 37154- 0841 Dec, [facility] [address] [id number] [place] [address] 07660- 2112 Dec, HTN (hypertension) I10 ; BMI 45.0-49.9, adult Z68.42 ; Chronic pain G89.29 ; Primary insomnia F51.01 ; Mixed hyperlipidemia E78.2 ; Dysthymic disorder F34.1 ; Type 2 diabetes mellitus with diabetic chronic kidney disease E11.22 ; Stasis dermatitis of both legs I87.2 and Chronic systolic congestive heart failure I50.22 [place] [address] [address] [id number] [place] [address] 38357- 9388 Dec, Chronic pain G89.29 [facility] [id number] [place] [address] 64497 -8332 Dec, Lymphedema I89.0 and Chronic systolic congestive heart failure I50.22 [place] [address] [place] [id number] [place] [address] 32092- 7819 Dec, [facility] [address] [place] [id number] [place] [address] 09476- 8288 Nov, Type 2 diabetes mellitus with diabetic chronic kidney disease E11.22 [facility] [address] [place] [id number] [place] [address] 80434- 1043 Nov, Chronic pain G89.29 and Dysthymic disorder F34.1 [facility] [address] [place] [id number] [place] [address] 74073- 2774 Nov, [facility] [address] [place] [address] 84595- 8980 30 Oct, 2017 HTN (hypertension) I10 ; Chronic pain G89.29 ; BMI 45.0-49.9 , adult Z68.42 ; Primary insomnia F51.01 ; Mixed hyperlipidemia E78.2 ; Dysthymic disorder F34.1 ; Type 2 diabetes mellitus with diabetic chronic kidney disease E11.22 ; Chronic congestive heart failure, unspecified congestive heart failure type I50.9 ; Acute non-recurrent maxillary sinusitis J01.00 and BMI 50.0-59.9, adult Z68.43 [place] [address] [place] [id number] [place] [address] 51746- 4200 17 Oct, 2017 HTN (hypertension) I10 and Dysthymic disorder F34.1 [place] [address] [place] [id number] [place] [address] 84226- 3674 Oct, [place] [address] 11532- 9896 Oct, HTN (hypertension) I10 [place] [address] [place] [id number] [place] [address] 66317- 4519 11 Oct, 2017 Chronic pain G89.29 [place] [address] [place] [id number] [place] [address] 65486- 1502 Sep, [place] [address] [place] [id number] [place] [address] 82106- 9243 Sep, HTN (hypertension) I10 ; Chronic pain G89.29 ; BMI 45.0-49.9 , adult Z68.42 ; Primary insomnia F51.01 ; Mixed hyperlipidemia E78.2 ; Dysthymic disorder F34.1 and Type 2 diabetes mellitus with diabetic chronic kidney disease E11.22 [place] [address] [place] [place] [id number] [place] [address] 50842- 1579 18 Sep, 2017 Chronic pain G89.29 [place] [address] [place] [id number] [place] [address] 34028- 8364 Sep, Acute on chronic heart failure, unspecified heart failure type I50.9 [facility] [address] [address] 0774 Sep, Acute on chronic heart failure, unspecified heart failure type I50.9 ; Type 2 diabetes mellitus with diabetic chronic kidney disease E11.22 and BMI 50.0-59.9, adult Z68.43 [facility] [address] [place] [id number] [place] [address] 37061- 0923 Sep, Acute on chronic heart failure, unspecified heart failure type I50.9 ; HTN (hypertension) I10 and Type 2 diabetes mellitus with diabetic chronic kidney disease E11.22 [place] [address] [place] [id number] [place] [address] 76257- 3553 Aug, Acute on chronic heart failure, unspecified heart failure type I50.9 ; HTN (hypertension) I10 ; Type 2 diabetes mellitus with diabetic chronic kidney disease E11.22 ; Cellulitis of right lower extremity L03.115 and BMI 50.0-59.9, adult Z68.43 [facility] [address] [id number] [place] [address] 40492 -8839 Aug, Acute upper respiratory infection, unspecified J06.9 ; Other viral agents as the cause of diseases classified elsewhere B97.89 ; Constipation, unspecified constipation type K59.00 ; BMI 50.0-59.9, adult Z68.43 and BMI 60.0-69.9, adult Z68.44 [place] [address] [place] [id number] [place] [address] 71394- 7310 Aug, Chronic pain G89.29 [place] [address] [place] [id number] [place] [address] 28317- 7281 Jul, Chronic pain G89.29 [place] [address] [place] [id number] [place] [address] 60283- 0328 Jul, Chronic pain G89.29 [place] [address] [place] [id number] [place] [address] 99980- 2528 Jun, Chronic pain G89.29 [place] [address] [place] [address]- 9534 18 Jun, 2017 [place] [address] [place] [id number] [place] [address] 54097- 2622 Jun, Chronic pain G89.29 [place] [address] [place] [id number] [place] [address] 25978- 8835 May, Chronic pain G89.29 and Type 2 diabetes mellitus with diabetic chronic kidney disease E11.22 [place] [address] [place] [id number] [place] [address] 92448- 6165 16 May, 2017 [place] [address] [place] [id number] [place] [address] 43345- 0461 May, Chronic pain G89.29 and Anxiety F41.9 [place] [address] [place] [id number] [place] [address] 91594- 8628 May, Type 2 diabetes mellitus with diabetic chronic kidney disease E11.22 ; Social phobia F40.10 ; Morbid obesity E66.01 ; Chronic pain G89.29 ; HTN (hypertension) I10 ; Degenerative disc disease at L5-S1 level M51.36 ; BPH (benign prostatic hyperplasia) N40.0 ; Pain in right knee M25.561 and 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 [place] [address] [place] [id number] [place] [address] 94438- 3952 Apr, Anxiety F41.9 [place] [address] [place] [id number] [place] [address] 22293- 2697 Apr, [place] [address] [place] [id number] [place] [address] 14418- 1250 Mar, [place] [address] [place] [id number] [place] [address] 46881- 8795 Mar, Edema, unspecified type R60.9 and Anxiety F41.9 [place] [address] [place] [id number] [place] [address] 50980- 7223 Mar, Social phobia F40.10 ; Mixed obsessional thoughts and acts F42.2 and Mild episode of recurrent major depressive disorder F33.0 [place] [address] [place] [address] 83521- 9292 Mar, Degenerative disc disease at L5-S1 level M51.36 [place] [address] [place] [id number] [place] [address] 43818- 1837 Mar, [place] [address] [place] [id number] [place] [address] 80056- 6087 Mar, [place] [address] [place] [id number] [place] [address] 38658- 2797 Mar, [place] [address] 34155- 5736 February, Morbid obesity E66.01 ; Anxiety F41.9 ; Degenerative disc disease at L5-S1 level M51.36 ; BPH (benign prostatic hyperplasia) N40.0 ; Social phobia F40.10 ; HTN (hypertension) I10 ; Edema, unspecified type R60.9 and Screening cholesterol level Z13.220 [place] [address] [place] [id number] [place] [address] 24132- 9573 February, Social phobia, generalized F40.11 [place] [address] [place] [id number] [place] [address] 17658- 9084 February, Chronic pain G89.29 [place] [address] [place] [id number] [place] [address] 09950- 8035 February, [place] [address] [place] [id number] [place] [address] 75564- 8816 Jan, Chronic pain G89.29 [place] [address] [place] [id number] [place] [address] 71046- 8906 Jan, Panic disorder [episodic paroxysmal anxiety] without agoraphobia F41.0 [place] [address] [place] [id number] [place] [address] 82003- 1886 Dec, Morbid obesity E66.01 ; Anxiety F41.9 ; Chronic pain G89.29 ; HTN (hypertension) I10 ; BPH (benign prostatic hyperplasia) N40.0 ; Generalized edema R60.1 and Cough R05 [facility] [address] [place] [id number] [place] [address] 09435 2546 14 Nov, 2016 Chronic pain G89.29 [facility] [address] [place] [id number] [place] [address] 84595 2546 03 Nov, 2016 Social phobia, generalized F40.11 and Mild episode of recurrent major depressive disorder F33.0 [facility] [address] [place] [id number] [place] [address] 39673 2546 Oct, Chronic pain G89.29 [facility] [address] [place] [id number] [place] [address] 90042 2546 Oct, Social phobia, generalized F40.11 [facility] [address] [place] [id number] [place] [address] 36472- 6556 Sep, [facility] [address] [place] [id number] [place] [address] 31402 2546 Sep, [facility] [address] [place] [id number] [place] [address] 57108 2546 Sep, [facility] [address] [place] [id number] [place] [address] 27206 2546 Sep, [facility] [address] [place] [id number] [place] [address] 58155 2546 Sep, [facility] [address] [place] [id number] [place] [address] 42730 2546 Sep, Social phobia, generalized F40.11 and Mild episode of recurrent major depressive disorder F33.0 [facility] [address] [place] [id number] [place] [address] 83281 2546 Sep, [facility] [address] [place] [id number] [place] [address] 67365 2546 Aug, [facility] [address] [place] [id number] [place] [address] 36708- 3153 Aug, [facility] [address] [place] [address] 14739- 4273 Aug, Bronchitis J40 [facility] [address] [place] [id number] [place] [address] 13135- 8583 15 Aug, 2016 [facility] [address] [place] [id number] [place] [address] 25714- 5567 Aug, Osteoarthritis of knee, unspecified M17.9 [facility] [address] [place] [id number] [place] [address] 43098- 0021 09 Aug, 2016 Morbid obesity E66.01 ; Chronic pain G89.29 ; Anxiety F41.9 ; Social phobia F40.10 ; HTN (hypertension) I10 ; Social phobia, generalized F40.11 ; Acute upper respiratory infection, unspecified J06.9 and Other viral agents as the cause of diseases classified elsewhere B97.89 [facility] [address] [place] [id number] [place] [address] 66125- 3827 Aug, Social phobia, generalized F40.11 and Dysthymic disorder F34.1 [facility] [address] [place] [id number] [place] [address] 12391- 1602 Jul, [facility] [address] [place] [id number] [place] [address] 60169- 9034 Jun, [facility] [address] [place] [id number] [place] [address] 79846- 1742 May, [facility] [address] [place] [id number] [place] [address] 95472- 4190 May, [facility] [address] [place] [id number] [place] [address] 80040- 1262 May, [facility] [address] [place] [id number] [place] [address] 06012- 2004 May, [facility] [address] [place] [id number] [place] [address] 81780- 1151 May, [facility] [address] [address]- 2202 May, [facility] [address] [id number] [place] [address] 43006- 4667 May, [facility] [address] [address]- 6929 Apr, [facility] [address] [place] [id number] [place] [address] 28400- 6170 Apr, Chondromalacia, right knee M94.261 [facility] [address] [place] [address] 46849- 1956 Apr, Pain in unspecified hip M25.559 [facility] [address] [place] [id number] [place] [address] 43132- 8919 Mar, Social phobia, unspecified F40.10 and Pain in unspecified hip M25.559 [facility] [address] [place] [id number] [place] [address] 17911- 4260 February, [facility] [address] [id number] [place] [address] 85563- 7730 February, Social phobia F40.10 [facility] [address] [place] [id number] [place] [address] 25255- 5523 February, Morbid obesity E66.01 ; Chronic pain G89.29 ; Social phobia F40.10 ; Pelvic pain in male R10.2 ; HTN (hypertension) I10 ; Degenerative disc disease at L5-S1 level M51.36 ; BPH (benign prostatic hyperplasia) N40.0 and Pain in right knee M25.561 [facility] [address] [place] [id number] [place] [address] 71517- 2546 Jan, [facility] [address] [place] [id number] [place] [address] 38858- 2718 Jan, [facility] [address] [place] [address] 36265- 0612 Jan, [place] [address] [place] [address] 19424- 2691 Dec, [facility] [address] [id number] [place] [address] 41161- 5440 Dec, [facility] [id number] [place] [address] 55673- 4073 Dec, [facility] [address] 29452 -0187 Nov, Strep pharyngitis J02.0 ; Influenza A J10.1 and Cough R05 [facility] [address] 35593- 8625 Nov, [facility] [address] [address] [id number] [place] [address] 98196- 4516 Nov, [facility] [address] 68054- 0803 Oct, HTN (hypertension) I10 ; Morbid obesity E66.01 ; Anxiety F41.9 ; Social phobia F40.10 ; Panic disorder F41.0 ; Degenerative disc disease at L5-S1 level M51.36 and Hypercholesterolemia E78.0 [facility] [address] [address] [id number] [place] [address] 44966- 3098 Oct, Panic disorder [episodic paroxysmal anxiety] without agoraphobia F41.0 and Social phobia, generalized F40.11 [facility] [id number] [place] [address] 14635- 2764 Oct, [facility] [address] [address] [id number] [place] [address] 41726- 9700 Sep, [facility] [address] [id number] [place] [address] 31826- 3938 Sep, [facility] [address] [id number] [place] [address] 00170- 5589 Sep, [facility] [address] [id number] [place] [address] 07266- 0605 Sep, [facility] [id number] [place] [address] 91262- 0657 Aug, [facility] [id number] [place] [address] 01550- 3489 Aug, [facility] [address] 29898- 2484 Aug, [facility] [address] 05325- 3256 Aug, Social phobia F40.10 and Panic disorder F41.0 [facility] [address] 22781- 2914 Aug, [facility] [address] 90371- 7229 Aug, [facility] [address] 70811- 3657 Aug, [facility] [id number] [place] [address] 41868- 6573 Aug, [facility] [address] 67159- 2887 Jul, [facility] [id number] [place] [address] 41705- 9325 Jul, Morbid obesity E66.01 ; Chronic pain G89.29 ; Anxiety F41.9 ; Social phobia F40.10 ; Panic disorder F41.0 ; Pelvic pain in male R10.2 ; Insomnia G47.00 and HTN (hypertension) I10 [facility] [address] 71975- 0264 Jul, [facility] [id number] [place] [address] 72772- 7353 Jul, [facility] [address] 40175- 6109 Jun, Degenerative disc disease 722.6 [facility] [address] [address]- 2300 Jun, Pain in joint, pelvic region and thigh 719.45 ; Morbid obesity 278.01 ; Essential hypertension, benign 401.1 and Constipation 564.00 [facility] [id number] [address] May, [facility] [address] [address] May, [facility] [id number] [place] [id number]- 6468 May, [facility] [id number] [place] [address] [phone]- 9007 May, [facility] [id number] [place] [address]- 8144 May, [facility] [id number] [place] [address] [phone]- 9287 May, [facility] [id number] [place] [address] 08496- [address]879 May, Essential hypertension, benign 401.1 ; Anxiety state, unspecified 300.00 ; Panic disorder without agoraphobia 300.01 ; Social phobia 300.23 ; Morbid obesity 278.01 ; Other chronic pain 338.29 and Insomnia 780.52 [facility] [id number] [place] [address] [id number]- 4217 May, Essential hypertension 401.9 [facility] [id number] [place] [address] 60384- 0070 May, Pain in joint, pelvic region and thigh 719.45 [facility] [id number] [place] [address] 23136- 1824 May, Essential hypertension, benign 401.1 [facility] [id number] [place] [address] 20333- 8453 May, Panic disorder without agoraphobia 300.01 and Social phobia 300.23 [facility] [id number] [address] May, [facility] [id number] [address] May, [facility] [id number] [place] [address] 49375- 8089 Apr, Chronic pain 338.29 [facility] [id number] [place] [address] [phone]- 5787 Apr, [facility] [id number] [place] [address]- 5710 Apr, [facility] [id number] [place] [address] [id number]- [phone] Apr, [facility] [id number] [place] [address] 26503- 4540 Apr, [facility] [id number] [place] [address] 02043- 4810 Apr, [facility] [id number] [place] [address] [id number]- 8274 Apr, [facility] [id number] [place] [address] 98813- 6058 Apr, [facility] [id number] [place] [address] 32751- 2052 Apr, Essential hypertension, benign 401.1 ; Morbid obesity 278.01 ; Anxiety state, unspecified 300.00 ; Panic disorder without agoraphobia 300.01 ; Social phobia 300.23 and Chronic pain 338.29 [facility] [id number] [place] [address] [id number] Mar, [facility] [id number] [address] 5340 Mar, [facility] [id number] [address] 1420 Mar, [facility] [id number] [address] 2[address] Mar, [facility] [id number] [place] [address] 78109- 6926 Mar, Social phobia 300.23 and Panic disorder without agoraphobia 300.01 [facility] [id number] [place] [address] 72688- 4378 Mar, [facility] [id number] [place] [address] 19774- 4244 February, [facility] [id number] [place] [address] 92581- 9555 February, Major depression, recurrent 296.30 and No condition on [place] II V71.09 [facility] [id number] [place] [address] 05921- 4563 February, [facility] [id number] [place] [address] 21070- 3101 February, Panic disorder without agoraphobia 300.01 ; Social phobia 300.23 and Morbid obesity 278.01 [facility] [id number] [address] 8[address] Jan, [facility] [id number] [place] [address] 5094 Jan, [facility] [id number] [address] 1400 Dec, [facility] [id number] [address] 0849 Dec, [facility] [id number] [address] 6995 Dec, [facility] [id number] [place] [address] 9166 Dec, [facility] [id number] [address] 3424 Dec, [facility] [id number] [place] [address] 9844 Dec, [facility] [id number] [place] [address] 5108 Dec, [facility] [id number] [address] 4656 Dec, [facility] [id number] [place] [address]- 2442 Dec, [facility] [id number] [place] [address] 3738 Dec, [facility] [id number] [place] [address]- 8053 Dec, [facility] [id number] [place] [address]- 3185 Dec, [facility] [id number] [place] [address]- 6391 Dec, [facility] [id number] [place] [address]- 6334 Dec, [facility] [id number] [address]- 1081 Dec, [facility] [id number] [address]- 3448 Dec, IMMUNIZATIONS No Known Immunizations SOCIAL HISTORY [...]
--- OUTSIDE RECORDS SUMMARY | 2018-11-30 17:48 | XMS REPORT ---
Author Author ROSE MARY BUCKNER [facility] Address [address] [place] [address] Care Team Providers Care Buggy Runner Name Role Phone ISA BUCKNERTA Unavailable PROBLEMS Type Condition ICD9-CM Code [id number] Code Onset Dates Condition Status SNOMED Code Problem Type 2 diabetes mellitus with diabetic chronic kidney disease E11.22 Active 85659590 Problem Mixed hyperlipidemia E78.2 Active 236038536 Problem Primary insomnia F51.01 Active 1477906 Problem Major depressive disorder, recurrent, in full remission F33.42 Active 200411302 Problem Lymphedema I89.0 Active 716720398 Problem BMI 50.0-59.9, adult Z68.43 Active 840922723 Problem Constipation, unspecified constipation type K59.00 Active 81775372 Problem Chronic systolic congestive heart failure I50.22 Active 574280497 Problem Stasis dermatitis of both legs I87.2 Active 98403898 Problem Abnormal liver function test R94.5 Active 879130611 Problem Panic disorder F41.0 Active 706918203 Problem Controlled substance agreement terminated Z91.14 Active 944067934 Problem Cardiomegaly I51.7 Active 3012384 Problem Degenerative disc disease at L5-S1 level M51.36 Active 49842242 Problem BPH (benign prostatic hyperplasia) N40.0 Active 613883010 Problem Chronic pain G89.29 Active 02107173 Problem Dysthymic disorder F34.1 Active 44987796 Problem HTN (hypertension) I10 Active 98844850 Problem Mild episode of recurrent major depressive disorder F33.0 Active 460243503 ALLERGIES No Information ENCOUNTERS Encounter Location Date Diagnosis [facility] [address] [facility] [id number] [address] Aug, [facility] [address] [facility] [id number], [place] [address] Jun, [facility] [address] [facility] [id number] [place] [address] 59576- 1975 Jun, Dental examination Z01.20 [facility] [id number] [place] [address] 42396- 3977 Jun, Tooth infection K04.7 ; BMI 40.0-44.9, adult Z68.41 and Mouth pain K13.79 [facility] [id number] [place] [address] 31095- 7791 Jun, Type 2 diabetes mellitus with diabetic chronic kidney disease E11.22 [facility] [id number] [place] [address] 89537- 1887 May, Degenerative disc disease at L5-S1 level M51.36 ; Chronic pain G89.29 and BMI 40.0-44.9, adult Z68.41 [facility] [id number] [place] [address] 75571- 9799 May, [facility] [id number] [place] [address] 22139- 7187 May, Type 2 diabetes mellitus with diabetic chronic kidney disease E11.22 [facility] [id number] [place] [address] 99515- 3123 May, [facility] [id number] [place] [address] 66307- 8049 May, Degenerative disc disease at L5-S1 level M51.36 [facility] [id number] [place] [address] 95912- 7200 May, [facility] [address] [place] [address] 82614- 0065 May, [facility] [id number] [place] [address] 37932- 3584 May, [facility] [address] [place] [address] 27855- 9302 Apr, Type 2 diabetes mellitus with diabetic chronic kidney disease E11.22 ; Chronic pain G89.29 ; Major depressive disorder, recurrent, in full remission F33.42 ; HTN (hypertension) I10 ; Chronic systolic congestive heart failure I50.22 ; Mixed hyperlipidemia E78.2 and BMI 45.0-49.9, adult Z68.42 [facility] [id number] [place] [address] 04273- 7726 18 Apr, 2018 Type 2 diabetes mellitus with diabetic chronic kidney disease E11.[address] 90103- 9407 17 Apr, 2018 Medicare annual wellness visit, [...] vaccine Z28.21 and Encounter for immunization Z23 [address] 92851- 4708 Apr, [place] [id number] [place] [address] 92179- 7065 Mar, Type 2 diabetes mellitus with diabetic chronic kidney disease E11.22 [facility] [id number] [place] [address] 98593- 0313 Mar, Chronic pain G89.[address] 28365- 7579 February, Chronic pain G89.29 ; Abnormal liver function test R94.5 and Degenerative disc disease at L5-S1 level M51.[address] 47385- 8060 Jan, [facility] [facility] [address] 15881- 8785 Jan, [facility] [id number] [place] [address] 12362- 5775 Jan, [facility] [id number] [place] [address] 35570- 1339 Jan, Abnormal liver function test R94.5 ; Dysthymic disorder F34.1 and Chronic pain G89.29 [facility] [id number] [place] [address] 28840- 0668 Dec, [facility] [id number] [place] [address] 15252- 6312 Dec, HTN (hypertension) I10 ; BMI 45.0-49.9, adult Z68.42 ; Chronic pain G89.29 ; Primary insomnia F51.01 ; Mixed hyperlipidemia E78.2 ; Dysthymic disorder F34.1 ; Type 2 diabetes mellitus with diabetic chronic kidney disease E11.22 ; Stasis dermatitis of both legs I87.2 and Chronic systolic congestive heart failure I50.22 [facility] [id number] [place] [address] 16921- 1027 Dec, Chronic pain G89.29 [facility] [id number] [place] [address] 13443 -6399 Dec, Lymphedema I89.0 and Chronic systolic congestive heart failure I50.22 [facility] [id number] [place] [address] 38607- 5629 Dec, [facility] [id number] [place] [address] 02074- 0679 Nov, Type 2 diabetes mellitus with diabetic chronic kidney disease E11.22 [facility] [id number] [place] [address] 16707- 5494 Nov, Chronic pain G89.29 and Dysthymic disorder F34.1 [facility] [id number] [place] [address] 80467- 6829 Nov, [facility] [address] [place] [address] 05505- 5578 30 Oct, 2017 HTN (hypertension) I10 ; Chronic pain G89.29 ; BMI 45.0-49.9 , adult Z68.42 ; Primary insomnia F51.01 ; Mixed hyperlipidemia E78.2 ; Dysthymic disorder F34.1 ; Type 2 diabetes mellitus with diabetic chronic kidney disease E11.22 ; Chronic congestive heart failure, unspecified congestive heart failure type I50.9 ; Acute non-recurrent maxillary sinusitis J01.00 and BMI 50.0-59.9, adult Z68.43 [facility] [id number] [place] [address] 38863- 6600 17 Oct, 2017 HTN (hypertension) I10 and Dysthymic disorder F34.1 [facility] [id number] [place] [address] 41056- 8135 Oct, [facility] [address] 87011- 6810 Oct, HTN (hypertension) I10 [facility] [id number] [place] [address] 14411- 5587 11 Oct, 2017 Chronic pain G89.29 [facility] [id number] [place] [address] 38759- 0843 Sep, [facility] [id number] [place] [address] 61047- 4439 Sep, HTN (hypertension) I10 ; Chronic pain G89.29 ; BMI 45.0-49.9 , adult Z68.42 ; Primary insomnia F51.01 ; Mixed hyperlipidemia E78.2 ; Dysthymic disorder F34.1 and Type 2 diabetes mellitus with diabetic chronic kidney disease E11.22 [facility] [id number] [place] [address] 24504- 9146 18 Sep, 2017 Chronic pain G89.29 [facility] [id number] [place] [address] 46559- 2039 Sep, Acute on chronic heart failure, unspecified heart failure type I50.9 [facility] [address] [address]- 0536 Sep, Acute on chronic heart failure, unspecified heart failure type I50.9 ; Type 2 diabetes mellitus with diabetic chronic kidney disease E11.22 and BMI 50.0-59.9, adult Z68.43 [facility] [id number] [place] [address] 29294- 8558 Sep, Acute on chronic heart failure, unspecified heart failure type I50.9 ; HTN (hypertension) I10 and Type 2 diabetes mellitus with diabetic chronic kidney disease E11.22 [facility] [id number] [place] [address] 82423- 4998 Aug, Acute on chronic heart failure, unspecified heart failure type I50.9 ; HTN (hypertension) I10 ; Type 2 diabetes mellitus with diabetic chronic kidney disease E11.22 ; Cellulitis of right lower extremity L03.115 and BMI 50.0-59.9, adult Z68.43 [facility] [id number] [place] [address] 69538 -4255 Aug, Acute upper respiratory infection, unspecified J06.9 ; Other viral agents as the cause of diseases classified elsewhere B97.89 ; Constipation, unspecified constipation type K59.00 ; BMI 50.0-59.9, adult Z68.43 and BMI 60.0-69.9, adult Z68.44 [facility] [id number] [place] [address] 18887- 7600 Aug, Chronic pain G89.29 [facility] [id number] [place] [address] 92082- 5337 Jul, Chronic pain G89.29 [facility] [id number] [place] [address] 72089- 6084 Jul, Chronic pain G89.29 [facility] [id number] [place] [address] 57019- 4696 Jun, Chronic pain G89.29 [facility] [address] [place] [address]- 7378 18 Jun, 2017 [facility] [id number] [place] [address] 34473- 7295 Jun, Chronic pain G89.29 [facility] [id number] [place] [address] 81306- 8442 May, Chronic pain G89.29 and Type 2 diabetes mellitus with diabetic chronic kidney disease E11.22 [facility] [id number] [place] [address] 25068- 7773 16 May, 2017 [facility] [id number] [place] [address] 05009- 0486 May, Chronic pain G89.29 and Anxiety F41.9 [facility] [id number] [place] [address] 80376- 6103 May, Type 2 diabetes mellitus with diabetic chronic kidney disease E11.22 ; Social phobia F40.10 ; Morbid obesity E66.01 ; Chronic pain G89.29 ; HTN (hypertension) I10 ; Degenerative disc disease at L5-S1 level M51.36 ; BPH (benign prostatic hyperplasia) N40.0 ; Pain in right knee M25.561 and 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 [facility] [id number] [place] [address] 87395- 8184 Apr, Anxiety F41.9 [facility] [id number] [place] [address] 95401- 9732 Apr, [facility] [id number] [place] [address] 86382- 8967 Mar, [facility] [id number] [place] [address] 49657- 1009 Mar, Edema, unspecified type R60.9 and Anxiety F41.9 [facility] [id number] [place] [address] 01660- 5080 Mar, Social phobia F40.10 ; Mixed obsessional thoughts and acts F42.2 and Mild episode of recurrent major depressive disorder F33.0 [facility] [address] [place] [address] 25863- 3494 Mar, Degenerative disc disease at L5-S1 level M51.36 [facility] [address] [id number] [place] [address] 78510- 7363 Mar, [facility] [address] [id number] [place] [address] 64653- 6353 Mar, [facility] [address] [id number] [place] [address] 02650- 0985 Mar, [facility] [address] 76497- 0089 February, Morbid obesity E66.01 ; Anxiety F41.9 ; Degenerative disc disease at L5-S1 level M51.36 ; BPH (benign prostatic hyperplasia) N40.0 ; Social phobia F40.10 ; HTN (hypertension) I10 ; Edema, unspecified type R60.9 and Screening cholesterol level Z13.220 [facility] [id number] [place] [address] 47545- 1042 February, Social phobia, generalized F40.11 [facility] [id number] [place] [address] 16604- 6497 February, Chronic pain G89.29 [facility] [id number] [place] [address] 49774- 4241 February, [facility] [id number] [place] [address] 77373- 4742 Jan, Chronic pain G89.29 [facility] [address] [place] [address] 20477- 0258 Jan, Panic disorder [episodic paroxysmal anxiety] without agoraphobia F41.0 [facility] [address] [address] [place] [address] 50338- 1255 Dec, Morbid obesity E66.01 ; Anxiety F41.9 ; Chronic pain G89.29 ; HTN (hypertension) I10 ; BPH (benign prostatic hyperplasia) N40.0 ; Generalized edema R60.1 and Cough R05 [facility] [id number] [place] [address] 91732 2546 14 Nov, 2016 Chronic pain G89.29 [facility] [id number] [place] [address] 38290 2546 03 Nov, 2016 Social phobia, generalized F40.11 and Mild episode of recurrent major depressive disorder F33.0 [facility] [id number] [place] [address] 19258 2546 Oct, Chronic pain G89.29 [facility] [id number] [place] [address] 15637 2546 Oct, Social phobia, generalized F40.11 [facility] [id number] [place] [address] 96484- 9876 Sep, [facility] [id number] [place] [address] 78206 2546 Sep, [facility] [id number] [place] [address] 51024 2546 Sep, [facility] [id number] [place] [address] 68319 2546 Sep, [facility] [id number] [place] [address] 90450 2546 Sep, [facility] [id number] [place] [address] 77508 2546 Sep, Social phobia, generalized F40.11 and Mild episode of recurrent major depressive disorder F33.0 [facility] [id number] [place] [address] 12099 2546 Sep, [facility] [id number] [place] [address] 41800 2546 Aug, [facility] [id number] [place] [address] 67447- 4130 Aug, [facility] [address] [place] [address] 37736- 4065 Aug, Bronchitis J40 [facility] [id number] [place] [address] 52157- 1142 15 Aug, 2016 [facility] [id number] [place] [address] 86677- 7527 Aug, Osteoarthritis of knee, unspecified M17.9 [facility] [id number] [place] [address] 43870- 6706 09 Aug, 2016 Morbid obesity E66.01 ; Chronic pain G89.29 ; Anxiety F41.9 ; Social phobia F40.10 ; HTN (hypertension) I10 ; Social phobia, generalized F40.11 ; Acute upper respiratory infection, unspecified J06.9 and Other viral agents as the cause of diseases classified elsewhere B97.89 [facility] [id number] [place] [address] 18088- 7238 Aug, Social phobia, generalized F40.11 and Dysthymic disorder F34.1 [facility] [address] [place] [place] [address] 20974- 3293 Jul, [facility] [address] [id number] [place] [address] 39611- 3327 Jun, [facility] [id number] [place] [address] 35507- 0152 May, [facility] [id number] [place] [address] 33678- 5792 May, [facility] [id number] [place] [address] 96578- 9776 May, [facility] [id number] [place] [address] 00420- 2621 May, [facility] [id number] [place] [address] 48396- 1363 May, [facility] [address] [address]- 3837 May, [facility] [id number] [place] [address] 99865- 8254 May, [facility] [address] [address]- 5508 Apr, [facility] [id number] [place] [address] 48629- 0184 Apr, Chondromalacia, right knee M94.261 [facility] [address] [place] [address] 25084- 0708 Apr, Pain in unspecified hip M25.559 [facility] [address] [place] [address] 55548- 1455 Mar, Social phobia, unspecified F40.10 and Pain in unspecified hip M25.559 [facility] [id number] [place] [address] 08959- 4692 February, [facility] [address] [place] [address] 40647- 0396 February, Social phobia F40.10 [facility] [address] [place] [address] 76402- 0314 February, Morbid obesity E66.01 ; Chronic pain G89.29 ; Social phobia F40.10 ; Pelvic pain in male R10.2 ; HTN (hypertension) I10 ; Degenerative disc disease at L5-S1 level M51.36 ; BPH (benign prostatic hyperplasia) N40.0 and Pain in right knee M25.561 [facility] [address] [place] [address] 50458- 4027 Jan, [facility] [id number] [place] [address] 64829- 4686 Jan, [facility] [address] [place] [address] 91071- 9604 Jan, [facility] [address] [place] [address] 58575- 4346 Dec, [facility] [id number] [place] [address] 75922- 6921 Dec, [facility] [id number] [place] [address] 72174- 8266 Dec, [facility] [address] 65008 -1231 Nov, Strep pharyngitis J02.0 ; Influenza A J10.1 and Cough R05 [facility] [address] 85548- 8863 Nov, [facility] [id number] [place] [address] 68836- 1973 Nov, [facility] [address] 44456- 1755 Oct, HTN (hypertension) I10 ; Morbid obesity E66.01 ; Anxiety F41.9 ; Social phobia F40.10 ; Panic disorder F41.0 ; Degenerative disc disease at L5-S1 level M51.36 and Hypercholesterolemia E78.0 [facility] [id number] [place] [address] 46442- 3833 Oct, Panic disorder [episodic paroxysmal anxiety] without agoraphobia F41.0 and Social phobia, generalized F40.11 [facility] [id number] [place] [address] 60989- 7321 Oct, [facility] [address] [place] [address] 40233- 9032 Sep, [facility] [address] [place] [address] 92716- 8240 Sep, [facility] [id number] [place] [address] 67532- 1829 Sep, [facility] [address] [place] [address] 94209- 8366 Sep, [facility] [address] [place] [address] 48152- 4511 Aug, [facility] [id number] [place] [address] 84576- 9644 Aug, [facility] [address] 75780- 4765 Aug, [facility] [address] 36215- 1501 Aug, Social phobia F40.10 and Panic disorder F41.0 [facility] [address] 24727- 7989 Aug, [facility] [address] 30650- 4457 Aug, [facility] [address] 69788- 2175 Aug, [facility] [id number] [place] [address] 86743- 7741 Aug, [facility] [address] 43096- 6608 Jul, [facility] [id number] [place] [address] 52610- 4466 Jul, Morbid obesity E66.01 ; Chronic pain G89.29 ; Anxiety F41.9 ; Social phobia F40.10 ; Panic disorder F41.0 ; Pelvic pain in male R10.2 ; Insomnia G47.00 and HTN (hypertension) I10 [facility] [address] 32745- 1033 Jul, [facility] [id number] [place] [address] 55209- 5002 Jul, [facility] [address] 89484- 8612 Jun, Degenerative disc disease 722.6 [facility] [address] [address]- 2781 Jun, Pain in joint, pelvic region and thigh 719.45 ; Morbid obesity 278.01 ; Essential hypertension, benign 401.1 and Constipation 564.00 [facility] [address] [address]- 0330 May, [facility] [address] 67424- 5820 May, [facility] [id number] [place] [address] 41513- 8745 May, [facility] [address] [place] [address] 42443- 1752 May, [facility] [address] [place] [address] 55394- 6022 May, [facility] [address] [place] [address] 38174- 0440 May, [facility] [address] [place] [address] 57176- 5508 May, Essential hypertension, benign 401.1 ; Anxiety state, unspecified 300.00 ; Panic disorder without agoraphobia 300.01 ; Social phobia 300.23 ; Morbid obesity 278.01 ; Other chronic pain 338.29 and Insomnia 780.52 [facility] [address] [place] [address] 29788- 2865 May, Essential hypertension 401.9 [facility] [address] [place] [address] 94581- 7918 May, Pain in joint, pelvic region and thigh 719.45 [facility] [address] [place] [address] 86745- 4860 May, Essential hypertension, benign 401.1 [facility] [id number] [place] [address] 46064- 6712 May, Panic disorder without agoraphobia 300.01 and Social phobia 300.23 [facility] [id number] [address] May, [facility] [id number] [address] May, [facility] [id number] [place] [address] 48096- 8093 Apr, Chronic pain 338.29 [facility] [id number] [place] [address] 90236- 5887 Apr, [facility] [id number] [place] [address] 57584- 2993 Apr, [facility] [id number] [place] [address] 79807- 3495 Apr, [facility] [id number] [place] [address] 80159- 3129 Apr, [facility] [id number] [place] [address] 52817- 2644 Apr, [facility] [id number] [place] [address] 61961- 9643 Apr, [facility] [id number] [place] [address] 76792- 2876 Apr, [facility] [address] [id number] [place] [address]- [address]704 Apr, Essential hypertension, benign 401.1 ; Morbid obesity 278.01 ; Anxiety state, unspecified 300.00 ; Panic disorder without agoraphobia 300.01 ; Social phobia 300.23 and Chronic pain 338.29 [facility] [id number] [place] [address] [id number] Mar, [facility] [id number] [address] Mar, [facility] [id number] [address] Mar, [facility] [address] [address] Mar, [facility] [id number] [place] [address]46- 4589 Mar, Social phobia 300.23 and Panic disorder without agoraphobia 300.01 [facility] [id number] [place] [address] 61326- 6200 Mar, [facility] [id number] [place] [address] 48430- 8094 February, [facility] [id number] [place] [address] 42947- 3687 February, Major depression, recurrent 296.30 and No condition on [place] II V71.09 [facility] [id number] [place] [address] 19923- 7063 February, [facility] [id number] [place] [address] 60040- 2297 February, Panic disorder without agoraphobia 300.01 ; Social phobia 300.23 and Morbid obesity 278.01 [facility] [address] [address] Jan, [facility] [address] [address] Jan, [facility] [address] [address] Dec, [facility] [address] [address] Dec, [facility] [id number] [address] Dec, [facility] [address] [address] Dec, [facility] [id number] [address] 1433 Dec, [facility] [address] [address] Dec, [facility] [address] [address] Dec, [facility] [id number] [address]- [address] Dec, [facility] [address] [address]- [address] Dec, [facility] [address] [address] Dec, [facility] [address] [address] Dec, [facility] [address] [address] Dec, [facility] [address] [address] Dec, [facility] [address] [address] Dec, [facility] [id number] [address] Dec, [facility] [id number] [address]661 Dec, IMMUNIZATIONS No Known Immunizations SOCIAL HISTORY Never Assessed REASON FOR VISIT Call from patient PLAN OF CARE VITAL SIGNS MEDICATIONS Unknown [...]
--- OUTSIDE RECORDS SUMMARY | 2018-11-30 17:48 | XMS REPORT ---
Author Author ROSE MARY BUCKNER [facility] Address [address] [place] [address] Care Team Providers Care Personal Service Representative Name Role Phone ISA BUCKNERTA Unavailable PROBLEMS Type Condition ICD9-CM Code RPD19-HK Code Onset Dates Condition Status SNOMED Code Problem Type 2 diabetes mellitus with diabetic chronic kidney disease E11.22 Active 19537110 Problem Mixed hyperlipidemia E78.2 Active 671569418 Problem Primary insomnia F51.01 Active 3944830 Problem Major depressive disorder, recurrent, in full remission F33.42 Active 137394737 Problem Lymphedema I89.0 Active 573634512 Problem BMI 50.0-59.9, adult Z68.43 Active 885587946 Problem Constipation, unspecified constipation type K59.00 Active 61702257 Problem Chronic systolic congestive heart failure I50.22 Active 160687202 Problem Stasis dermatitis of both legs I87.2 Active 54217525 Problem Abnormal liver function test R94.5 Active 086339976 Problem Panic disorder F41.0 Active 045702218 Problem Controlled substance agreement terminated Z91.14 Active 840171291 Problem Cardiomegaly I51.7 Active 4117606 Problem Degenerative disc disease at L5-S1 level M51.36 Active 91125538 Problem BPH (benign prostatic hyperplasia) N40.0 Active 089254550 Problem Chronic pain G89.29 Active 24005173 Problem Dysthymic disorder F34.1 Active 02542712 Problem HTN (hypertension) I10 Active 84248420 Problem Mild episode of recurrent major depressive disorder F33.0 Active 459584909 ALLERGIES No Information ENCOUNTERS Encounter Location Date Diagnosis [facility], [place] [address] [facility] [id number] [address] Aug, [facility], [place] [address] [facility] [id number], [place] [address] Jun, [facility], [place] [address] [facility] [id number] [place] [address] 37852- 8591 Jun, Dental examination Z01.20 [facility], [place] [id number] [place] [address] 75177- 0834 Jun, Tooth infection K04.7 ; BMI 40.0-44.9, adult Z68.41 and Mouth pain K13.79 [facility], [place] [id number] [place] [address] 54957- 5937 Jun, Type 2 diabetes mellitus with diabetic chronic kidney disease E11.22 [facility], [place] [id number] [place] [address] 94358- 7390 May, Degenerative disc disease at L5-S1 level M51.36 ; Chronic pain G89.29 and BMI 40.0-44.9, adult Z68.41 [facility], [place] [id number] [place] [address] 33897- 9897 May, [facility], [place] [id number] [place] [address] 05362- 0466 May, Type 2 diabetes mellitus with diabetic chronic kidney disease E11.22 [facility], [place] [id number] [place] [address] 67073- 1292 May, [facility], [place] [id number] [place] [address] 27733- 1471 May, Degenerative disc disease at L5-S1 level M51.36 [facility], [place] [id number] [place] [address] 17922- 4730 May, [facility], [place] [id number] [place] [address] 58509- 0095 May, [facility], [place] [id number] [place] [address] 26169- 0393 May, [facility], [place] [address] [place] [address] 81558- 0209 Apr, Type 2 diabetes mellitus with diabetic chronic kidney disease E11.22 ; Chronic pain G89.29 ; Major depressive disorder, recurrent, in full remission F33.42 ; HTN (hypertension) I10 ; Chronic systolic congestive heart failure I50.22 ; Mixed hyperlipidemia E78.2 and BMI 45.0-49.9, adult Z68.42 [place] [id number] [place] [address] 31928- 3568 18 Apr, 2018 Type 2 diabetes mellitus with diabetic chronic kidney disease E11.[address] 25026- 9308 17 Apr, 2018 Medicare annual wellness visit, [...] vaccine Z28.21 and Encounter for immunization Z23 [address] 93734- 9873 Apr, [place] [id number] [place] [address] 52482- 4008 Mar, Type 2 diabetes mellitus with diabetic chronic kidney disease E11.22 [facility] [id number] [place] [address] 51710- 5507 Mar, Chronic pain G89.[address] 03370- 3857 February, Chronic pain G89.29 ; Abnormal liver function test R94.5 and Degenerative disc disease at L5-S1 level M51.[address] 98829- 2401 Jan, [place] [address] 86711- 2576 Jan, [facility], [place] [id number] [place] [address] 08902- 8089 Jan, [facility], [place] [id number] [place] [address] 48534- 0735 Jan, Abnormal liver function test R94.5 ; Dysthymic disorder F34.1 and Chronic pain G89.29 [facility], [place] [id number] [place] [address] 99519- 8929 Dec, [facility], [place] [id number] [place] [address] 56633- 7212 Dec, HTN (hypertension) I10 ; BMI 45.0-49.9, adult Z68.42 ; Chronic pain G89.29 ; Primary insomnia F51.01 ; Mixed hyperlipidemia E78.2 ; Dysthymic disorder F34.1 ; Type 2 diabetes mellitus with diabetic chronic kidney disease E11.22 ; Stasis dermatitis of both legs I87.2 and Chronic systolic congestive heart failure I50.22 [place] [id number] [place] [address] 70753- 2155 Dec, Chronic pain G89.29 [facility] [id number] [place] [address] 36592 -8949 Dec, Lymphedema I89.0 and Chronic systolic congestive heart failure I50.22 [place] [id number] [place] [address] 97756- 4381 Dec, [facility], [place] [id number] [place] [address] 22254- 0401 Nov, Type 2 diabetes mellitus with diabetic chronic kidney disease E11.22 [facility], [place] [id number] [place] [address] 28874- 8407 Nov, Chronic pain G89.29 and Dysthymic disorder F34.1 [facility], [place] [id number] [place] [address] 22176- 5035 Nov, [facility], [place] [address] [place] [address] 55613- 2936 30 Oct, 2017 HTN (hypertension) I10 ; Chronic pain G89.29 ; BMI 45.0-49.9 , adult Z68.42 ; Primary insomnia F51.01 ; Mixed hyperlipidemia E78.2 ; Dysthymic disorder F34.1 ; Type 2 diabetes mellitus with diabetic chronic kidney disease E11.22 ; Chronic congestive heart failure, unspecified congestive heart failure type I50.9 ; Acute non-recurrent maxillary sinusitis J01.00 and BMI 50.0-59.9, adult Z68.43 [place] [id number] [place] [address] 04331- 9007 17 Oct, 2017 HTN (hypertension) I10 and Dysthymic disorder F34.1 [place] [id number] [place] [address] 28900- 6433 Oct, [place] [address] 47318- 8910 Oct, HTN (hypertension) I10 [place] [id number] [place] [address] 99289- 2756 11 Oct, 2017 Chronic pain G89.29 [place] [id number] [place] [address] 93426- 0979 Sep, [place] [id number] [place] [address] 13287- 0552 Sep, HTN (hypertension) I10 ; Chronic pain G89.29 ; BMI 45.0-49.9 , adult Z68.42 ; Primary insomnia F51.01 ; Mixed hyperlipidemia E78.2 ; Dysthymic disorder F34.1 and Type 2 diabetes mellitus with diabetic chronic kidney disease E11.22 [place] [id number] [place] [address] 65829- 5372 18 Sep, 2017 Chronic pain G89.29 [place] [id number] [place] [address] 81955- 2208 Sep, Acute on chronic heart failure, unspecified heart failure type I50.9 [facility], [place] [address] [address] 8[address] Sep, Acute on chronic heart failure, unspecified heart failure type I50.9 ; Type 2 diabetes mellitus with diabetic chronic kidney disease E11.22 and BMI 50.0-59.9, adult Z68.43 [facility], [place] [id number] [place] [address] 54530- 4921 Sep, Acute on chronic heart failure, unspecified heart failure type I50.9 ; HTN (hypertension) I10 and Type 2 diabetes mellitus with diabetic chronic kidney disease E11.22 [place] [id number] [place] [address] 36729- 9481 Aug, Acute on chronic heart failure, unspecified heart failure type I50.9 ; HTN (hypertension) I10 ; Type 2 diabetes mellitus with diabetic chronic kidney disease E11.22 ; Cellulitis of right lower extremity L03.115 and BMI 50.0-59.9, adult Z68.43 [facility] [id number] [place] [address] 46963 -0775 Aug, Acute upper respiratory infection, unspecified J06.9 ; Other viral agents as the cause of diseases classified elsewhere B97.89 ; Constipation, unspecified constipation type K59.00 ; BMI 50.0-59.9, adult Z68.43 and BMI 60.0-69.9, adult Z68.44 [place] [id number] [place] [address] 86172- 0578 Aug, Chronic pain G89.29 [place] [id number] [place] [address] 11731- 3048 Jul, Chronic pain G89.29 [place] [id number] [place] [address] 31735- 9910 Jul, Chronic pain G89.29 [place] [id number] [place] [address] 46139- 4785 Jun, Chronic pain G89.29 [place] [address] [place] [address]- 3812 18 Jun, 2017 [place] [id number] [place] [address] 55086- 0033 Jun, Chronic pain G89.29 [place] [id number] [place] [address] 62539- 2898 May, Chronic pain G89.29 and Type 2 diabetes mellitus with diabetic chronic kidney disease E11.22 [place] [id number] [place] [address] 35472- 5399 16 May, 2017 [place] [id number] [place] [address] 76552- 1970 May, Chronic pain G89.29 and Anxiety F41.9 [place] [id number] [place] [address] 50545- 8722 May, Type 2 diabetes mellitus with diabetic chronic kidney disease E11.22 ; Social phobia F40.10 ; Morbid obesity E66.01 ; Chronic pain G89.29 ; HTN (hypertension) I10 ; Degenerative disc disease at L5-S1 level M51.36 ; BPH (benign prostatic hyperplasia) N40.0 ; Pain in right knee M25.561 and 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 [place] [id number] [place] [address] 87100- 0853 Apr, Anxiety F41.9 [place] [id number] [place] [address] 76181- 2949 Apr, [place] [id number] [place] [address] 59382- 2698 Mar, [place] [id number] [place] [address] 55532- 2423 Mar, Edema, unspecified type R60.9 and Anxiety F41.9 [place] [id number] [place] [address] 69819- 4977 Mar, Social phobia F40.10 ; Mixed obsessional thoughts and acts F42.2 and Mild episode of recurrent major depressive disorder F33.0 [place] [address] [place] [address] 09417- 3367 Mar, Degenerative disc disease at L5-S1 level M51.36 [place] [id number] [place] [address] 34014- 5298 Mar, [place] [id number] [place] [address] 52969- 4757 Mar, [place] [id number] [place] [address] 09081- 7607 Mar, [place] [address] 63594- 1133 February, Morbid obesity E66.01 ; Anxiety F41.9 ; Degenerative disc disease at L5-S1 level M51.36 ; BPH (benign prostatic hyperplasia) N40.0 ; Social phobia F40.10 ; HTN (hypertension) I10 ; Edema, unspecified type R60.9 and Screening cholesterol level Z13.220 [place] [id number] [place] [address] 15374- 4857 February, Social phobia, generalized F40.11 [place] [id number] [place] [address] 51442- 1819 February, Chronic pain G89.29 [place] [id number] [place] [address] 43868- 4438 February, [place] [id number] [place] [address] 30843- 1897 Jan, Chronic pain G89.29 [place] [id number] [place] [address] 56110- 7757 Jan, Panic disorder [episodic paroxysmal anxiety] without agoraphobia F41.0 [place] [id number] [place] [address] 93226- 5226 Dec, Morbid obesity E66.01 ; Anxiety F41.9 ; Chronic pain G89.29 ; HTN (hypertension) I10 ; BPH (benign prostatic hyperplasia) N40.0 ; Generalized edema R60.1 and Cough R05 [facility], [place] [id number] [place] [address] 92858 2546 14 Nov, 2016 Chronic pain G89.29 [facility], [place] [id number] [place] [address] 99231 2546 03 Nov, 2016 Social phobia, generalized F40.11 and Mild episode of recurrent major depressive disorder F33.0 [facility], [place] [id number] [place] [address] 93982 2546 Oct, Chronic pain G89.29 [facility], [place] [id number] [place] [address] 19280 2546 Oct, Social phobia, generalized F40.11 [facility], [place] [id number] [place] [address] 97761- 8696 Sep, [facility], [place] [id number] [place] [address] 22688 2546 Sep, [facility], [place] [id number] [place] [address] 13065 2546 Sep, [facility], [place] [id number] [place] [address] 22075 2546 Sep, [facility], [place] [id number] [place] [address] 66537 2546 Sep, [facility], [place] [id number] [place] [address] 23098 2546 Sep, Social phobia, generalized F40.11 and Mild episode of recurrent major depressive disorder F33.0 [facility], [place] [id number] [place] [address] 79140 2546 Sep, [facility], [place] [id number] [place] [address] 92459 2546 Aug, [facility], [place] [id number] [place] [address] 85422- 7175 Aug, [facility], [place] [address] [place] [address] 21108- 7946 Aug, Bronchitis J40 [facility], [place] [id number] [place] [address] 31039- 1800 15 Aug, 2016 [facility], [place] [id number] [place] [address] 09666- 4327 Aug, Osteoarthritis of knee, unspecified M17.9 [facility], [place] [id number] [place] [address] 58076- 3542 09 Aug, 2016 Morbid obesity E66.01 ; Chronic pain G89.29 ; Anxiety F41.9 ; Social phobia F40.10 ; HTN (hypertension) I10 ; Social phobia, generalized F40.11 ; Acute upper respiratory infection, unspecified J06.9 and Other viral agents as the cause of diseases classified elsewhere B97.89 [facility], [place] [id number] [place] [address] 67071- 3311 Aug, Social phobia, generalized F40.11 and Dysthymic disorder F34.1 [facility], [place] [id number] [place] [address] 28334- 6610 Jul, [facility], [place] [id number] [place] [address] 79959- 2635 Jun, [facility], [place] [id number] [place] [address] 72365- 5233 May, [facility], [place] [id number] [place] [address] 01698- 7730 May, [facility], [place] [id number] [place] [address] 19619- 7874 May, [facility], [place] [id number] [place] [address] 88184- 6251 May, [facility], [place] [id number] [place] [address] 70377- 9517 May, [facility], [place] [address], [place] [address]- 4025 May, [facility], [place] [id number] [place] [address] 90973- 4854 May, [facility], [place] [address] [address]- 1028 Apr, [facility], [place] [id number] [place] [address] 40843- 9927 Apr, Chondromalacia, right knee M94.261 [facility], [place] [address] [place] [address] 91739- 9011 Apr, Pain in unspecified hip M25.559 [facility], [place] [id number] [place] [address] 79549- 3477 Mar, Social phobia, unspecified F40.10 and Pain in unspecified hip M25.559 [facility], [place] [id number] [place] [address] 27818- 4795 February, [facility], [place] [id number] [place] [address] 17795- 7924 February, Social phobia F40.10 [facility], [place] [id number] [place] [address] 17600- 0960 February, Morbid obesity E66.01 ; Chronic pain G89.29 ; Social phobia F40.10 ; Pelvic pain in male R10.2 ; HTN (hypertension) I10 ; Degenerative disc disease at L5-S1 level M51.36 ; BPH (benign prostatic hyperplasia) N40.0 and Pain in right knee M25.561 [facility], [place] [id number] [place] [address] 24652- 3642 Jan, [facility], [place] [id number] [place] [address] 94326- 8553 Jan, [facility], [place] [address] [place] [address] 83627- 0320 Jan, [place] [address] [place] [address] 75615- 8254 Dec, [facility], [place] [id number] [place] [address] 33489- 6945 Dec, [facility], [place] [id number] [place] [address] 42226- 2583 Dec, [facility] [address] 91936 -6273 Nov, Strep pharyngitis J02.0 ; Influenza A J10.1 and Cough R05 [facility], [place] [address] 55847- 1372 Nov, [facility], [place] [id number] [place] [address] 70533- 9630 Nov, [facility], [place] [address] 60860- 4763 Oct, HTN (hypertension) I10 ; Morbid obesity E66.01 ; Anxiety F41.9 ; Social phobia F40.10 ; Panic disorder F41.0 ; Degenerative disc disease at L5-S1 level M51.36 and Hypercholesterolemia E78.0 [facility], [place] [id number] [place] [address] 94324- 4652 Oct, Panic disorder [episodic paroxysmal anxiety] without agoraphobia F41.0 and Social phobia, generalized F40.11 [facility], [place] [id number] [place] [address] 01389- 1879 Oct, [facility], [place] [id number] [place] [address] 49761- 8110 Sep, [facility] [place] [id number] [place] [address] 59517- 2166 Sep, [facility], [place] [id number] [place] [address] 13369- 6714 Sep, [facility] [place] [id number] [place] [address] 67880- 6078 Sep, [facility], [place] [id number] [place] [address] 64968- 6411 Aug, [facility] [place] [id number] [place] [address] 66529- 3550 Aug, [facility], [place] [address] 39053- 4488 Aug, [facility], [place] [address] 47340- 3349 Aug, Social phobia F40.10 and Panic disorder F41.0 [facility], [place] [address] 74200- 7038 Aug, [facility] [place] [address] 28232- 9201 Aug, [facility] [place] [address] 15841- 3543 Aug, [facility] [place] [id number] [place] [address] 89505- 9023 Aug, [facility] [place] [address] 93187- 4324 Jul, [facility] [place] [id number] [place] [address] 81836- 3677 Jul, Morbid obesity E66.01 ; Chronic pain G89.29 ; Anxiety F41.9 ; Social phobia F40.10 ; Panic disorder F41.0 ; Pelvic pain in male R10.2 ; Insomnia G47.00 and HTN (hypertension) I10 [facility] [place] [address] 89746- 0576 Jul, [facility], [place] [id number] [place] [address] 65143- 7597 Jul, [facility], [place] [address] 73060- 3199 Jun, Degenerative disc disease 722.6 [facility], [place] [address] [address]- 3140 Jun, Pain in joint, pelvic region and thigh 719.45 ; Morbid obesity 278.01 ; Essential hypertension, benign 401.1 and Constipation 564.00 [facility], [place] [address] [address]- 6346 May, [facility], [place] [address] [address] May, [facility], [place] [id number] [place] [phone]- [address] May, [facility], [place] [id number] [place] [address]- [address] May, [facility], [place] [id number] [place] [address]47- [address] May, [facility], [place] [id number] [place] [address]- [address] May, [facility], [place] [id number] [place] [address]- [address] May, Essential hypertension, benign 401.1 ; Anxiety state, unspecified 300.00 ; Panic disorder without agoraphobia 300.01 ; Social phobia 300.23 ; Morbid obesity 278.01 ; Other chronic pain 338.29 and Insomnia 780.52 [facility], [place] [id number] [place] [address]345- [address]77 May, Essential hypertension 401.9 [facility], [place] [id number] [place] [phone]- 4208 May, Pain in joint, pelvic region and thigh 719.45 [facility], [place] [id number] [place] [address]- 1616 May, Essential hypertension, benign 401.1 [facility], [place] [id number] [place] [address]- 1802 May, Panic disorder without agoraphobia 300.01 and Social phobia 300.23 [facility], [place] [id number], [place] [address] May, [facility], [place] [id number] [address] May, [facility], [place] [id number] [place] [address]- [address] Apr, Chronic pain 338.29 [facility], [place] [id number] [place] [address]- [address] Apr, [facility], [place] [id number] [place] [address]- [address] Apr, [facility], [place] [id number] [place] [address]118- 5506 Apr, [facility], [place] [id number] [place] [address]60- 378[address] Apr, [facility], [place] [address] [id number] [place] [address] [id number]- 4715 Apr, [facility], [place] [id number] [place] [address] 10476- 5516 Apr, [facility], [place] [id number] [place] [address] 35739- 2999 Apr, [facility], [place] [id number] [place] [address] 77491- 7468 Apr, Essential hypertension, benign 401.1 ; Morbid obesity 278.01 ; Anxiety state, unspecified 300.00 ; Panic disorder without agoraphobia 300.01 ; Social phobia 300.23 and Chronic pain 338.29 [facility], [place] [id number] [place] [address] [id number] Mar, [facility], [place] [id number] [address] Mar, [facility], [place] [id number] [address] Mar, [facility], [place] [address] [place] [address] Mar, [facility], [place] [id number] [place] [address] 14396- 0406 Mar, Social phobia 300.23 and Panic disorder without agoraphobia 300.01 [facility], [place] [id number] [place] [address] 12375- 9305 Mar, [facility], [place] [id number] [place] [address] 62404- 5074 February, [facility], [place] [id number] [place] [address] 85362- 1927 February, Major depression, recurrent 296.30 and No condition on [place] II V71.09 [facility], [place] [id number] [place] [address] 89533- 0289 February, [facility], [place] [id number] [place] [address] 58809- 4774 February, Panic disorder without agoraphobia 300.01 ; Social phobia 300.23 and Morbid obesity 278.01 [facility], [place] [id number] [place] [address] Jan, [facility], [place] [id number] [place] [address] Jan, [facility], [place] [id number] [place] [address] Dec, [facility], [place] [id number] [place] [address] Dec, [facility], [place] [id number] [address] 47[address] Dec, [facility], [place] [address] [place] [address] Dec, [facility], [place] [id number] [address]26 Dec, [facility], [place] [address] [place] [address] 4488 Dec, [facility], [place] [id number] [place] [address] 2225 Dec, [facility], [place] [id number] [place] [address]38 Dec, [facility], [place] [id number] [place] [address] 5695 Dec, [facility], [place] [address] [place] [address] 9108 Dec, [facility], [place] [id number] [place] [address] 2663 Dec, [facility], [place] [id number] [place] [address]- 1031 Dec, [facility], [place] [id number] [place] [address] 0757 Dec, [facility], [place] [id number] [place] [address] 5870 Dec, [facility], [place] [id number] [place] [address] 0971 Dec, [facility], [place] [id number] [address] 7690 Dec, IMMUNIZATIONS No Known Immunizations SOCIAL HISTORY Never Assessed REASON FOR VISIT Returned call PLAN OF CARE VITAL SIGNS MEDICATIONS Medication Instructions Dosage Frequency Start Date End Date Duration Status Meloxicam 15 mg Orally Once a day 1 tablet 24h May, 30 day(s) Active RESULTS No Results PROCEDURES [...]
--- OUTSIDE RECORDS SUMMARY | 2018-11-30 17:49 | XMS REPORT ---
Author Author ROSE MARY BUCKNER [facility] Address [address] [place] [address] Care Team Providers Care Blueprint Processor Name Role Phone ROSE MARY BUCKNER Unavailable PROBLEMS Type Condition ICD9-CM Code [id number] Code Onset Dates Condition Status SNOMED Code Problem Type 2 diabetes mellitus with diabetic chronic kidney disease E11.22 Active 82253683 Problem Mixed hyperlipidemia E78.2 Active 964687109 Problem Primary insomnia F51.01 Active 4445409 Problem Major depressive disorder, recurrent, in full remission F33.42 Active 794086547 Problem Lymphedema I89.0 Active 788756698 Problem BMI 50.0-59.9, adult Z68.43 Active 161256538 Problem Constipation, unspecified constipation type K59.00 Active 21147960 Problem Chronic systolic congestive heart failure I50.22 Active 846227479 Problem Stasis dermatitis of both legs I87.2 Active 28082820 Problem Abnormal liver function test R94.5 Active 368147590 Problem Panic disorder F41.0 Active 986836678 Problem Controlled substance agreement terminated Z91.14 Active 072290872 Problem Cardiomegaly I51.7 Active 7102774 Problem Degenerative disc disease at L5-S1 level M51.36 Active 02022093 Problem BPH (benign prostatic hyperplasia) N40.0 Active 963741596 Problem Chronic pain G89.29 Active 68075274 Problem Dysthymic disorder F34.1 Active 51537281 Problem HTN (hypertension) I10 Active 16918872 Problem Mild episode of recurrent major depressive disorder F33.0 Active 712633818 ALLERGIES Substance Reaction Event Type Date Status Wellbutrin Unknown Non Drug Allergy Apr, Active ENCOUNTERS Encounter Location Date Diagnosis [facility] [address] [facility] [id number] [address] Aug, [facility] [address] [facility] [id number], [place] [address] Jun, [facility] [address], [place] [address] Jun, Dental examination Z01.20 [facility] [id number] [place] [address] 84646- 9266 Jun, BMI 40.0-44.9, adult Z68.41 and Tooth infection K04.7 [facility] [id number] [place] [address] 40434- 2523 Jun, Type 2 diabetes mellitus with diabetic chronic kidney disease E11.22 [facility] [id number] [place] [address] 77107- 3872 May, Degenerative disc disease at L5-S1 level M51.36 ; Chronic pain G89.29 and BMI 40.0-44.9, adult Z68.41 [facility] [id number] [place] [address] 75175- 8719 May, [facility] [id number] [place] [address] 35677- 7685 May, Type 2 diabetes mellitus with diabetic chronic kidney disease E11.22 [facility] [id number] [place] [address] 28903- 5277 May, [facility] [id number] [place] [address] 78317- 2235 May, Degenerative disc disease at L5-S1 level M51.36 [facility] [id number] [place] [address] 80223- 4313 May, [facility] [id number] [place] [address] 18474- 1844 May, [facility] [id number] [place] [address] 92971- 1388 May, [facility] [id number] [place] [address] 74293- 9111 Apr, Type 2 diabetes mellitus with diabetic chronic kidney disease E11.22 ; Chronic pain G89.29 ; Major depressive disorder, recurrent, in full remission F33.42 ; HTN (hypertension) I10 ; Chronic systolic congestive heart failure I50.22 ; Mixed hyperlipidemia E78.2 and BMI 45.0-49.9, adult Z68.42 [facility] [address], [place] [address] 18 Apr, 2018 Type 2 diabetes mellitus with diabetic chronic kidney disease E11.22 [place] [id number] [place] [address] 41151- 5545 17 Apr, 2018 Medicare annual wellness visit, [...] vaccine Z28.21 and Encounter for immunization Z23 [place] [id number] [place] [address] 96381- 0246 Apr, [place] [id number] [place] [address] 72846- 5753 Mar, Type 2 diabetes mellitus with diabetic chronic kidney disease E11.22 [facility] [id number] [place] [address] 69404- 7843 Mar, Chronic pain G89.29 [place] [id number] [place] [address] 49877- 4926 February, Chronic pain G89.29 ; Abnormal liver function test R94.5 and Degenerative disc disease at L5-S1 level M51.36 [place] [id number] [place] [address] 82014- 9677 Jan, [facility] [address] [place] [address]- 0600 Jan, [facility] [id number] [place] [address] 95841- 4985 Jan, [facility] [id number] [place] [address] 17499- 7604 Jan, Abnormal liver function test R94.5 ; Dysthymic disorder F34.1 and Chronic pain G89.29 [facility] [id number] [place] [address] 66415- 3980 Dec, [facility] [id number] [place] [address] 10427- 8040 Dec, HTN (hypertension) I10 ; BMI 45.0-49.9, adult Z68.42 ; Chronic pain G89.29 ; Primary insomnia F51.01 ; Mixed hyperlipidemia E78.2 ; Dysthymic disorder F34.1 ; Type 2 diabetes mellitus with diabetic chronic kidney disease E11.22 ; Stasis dermatitis of both legs I87.2 and Chronic systolic congestive heart failure I50.22 [facility] [id number] [place] [address] 26614- 2001 Dec, Chronic pain G89.29 [facility] [id number] [place] [address] 07445 -9323 Dec, Lymphedema I89.0 and Chronic systolic congestive heart failure I50.22 [facility] [id number] [place] [address] 82630- 7910 Dec, [facility] [id number] [place] [address] 01360- 2758 Nov, Type 2 diabetes mellitus with diabetic chronic kidney disease E11.22 [facility] [id number] [place] [address] 43651- 5623 Nov, Chronic pain G89.29 and Dysthymic disorder F34.1 [facility] [id number] [place] [address] 37028- 5376 Nov, [facility] [id number] [place] [address] 89886- 9812 Oct, HTN (hypertension) I10 ; Chronic pain G89.29 ; BMI 45.0-49.9 , adult Z68.42 ; Primary insomnia F51.01 ; Mixed hyperlipidemia E78.2 ; Dysthymic disorder F34.1 ; Type 2 diabetes mellitus with diabetic chronic kidney disease E11.22 ; Chronic congestive heart failure, unspecified congestive heart failure type I50.9 ; Acute non-recurrent maxillary sinusitis J01.00 and BMI 50.0-59.9, adult Z68.43 [facility] [id number] [place] [address] 17064- 6753 Oct, HTN (hypertension) I10 and Dysthymic disorder F34.1 [facility] [id number] [place] [address] 36949- 0018 Oct, [facility] [address] 58894- 0251 Oct, HTN (hypertension) I10 [facility] [id number] [place] [address] 77299- 0988 Oct, Chronic pain G89.29 [facility] [id number] [place] [address] 33088- 7295 Sep, [facility] [id number] [place] [address] 81461- 5205 Sep, HTN (hypertension) I10 ; Chronic pain G89.29 ; BMI 45.0-49.9 , adult Z68.42 ; Primary insomnia F51.01 ; Mixed hyperlipidemia E78.2 ; Dysthymic disorder F34.1 and Type 2 diabetes mellitus with diabetic chronic kidney disease E11.22 [facility] [id number] [place] [address] 52633- 6364 18 Sep, 2017 Chronic pain G89.29 [facility] [id number] [place] [address] 98712- 7044 Sep, Acute on chronic heart failure, unspecified heart failure type I50.9 [facility] [address] [place] [address] 73125- 4280 Sep, Acute on chronic heart failure, unspecified heart failure type I50.9 ; Type 2 diabetes mellitus with diabetic chronic kidney disease E11.22 and BMI 50.0-59.9, adult Z68.43 [facility] [id number] [place] [address] 82329- 8071 Sep, Acute on chronic heart failure, unspecified heart failure type I50.9 ; HTN (hypertension) I10 and Type 2 diabetes mellitus with diabetic chronic kidney disease E11.22 [facility] [id number] [place] [address] 87027- 6860 Aug, Acute on chronic heart failure, unspecified heart failure type I50.9 ; HTN (hypertension) I10 ; Type 2 diabetes mellitus with diabetic chronic kidney disease E11.22 ; Cellulitis of right lower extremity L03.115 and BMI 50.0-59.9, adult Z68.43 [facility] [id number] [place] [address] 77663 -1041 Aug, Acute upper respiratory infection, unspecified J06.9 ; Other viral agents as the cause of diseases classified elsewhere B97.89 ; Constipation, unspecified constipation type K59.00 ; BMI 50.0-59.9, adult Z68.43 and BMI 60.0-69.9, adult Z68.44 [facility] [id number] [place] [address] 33925- 1701 Aug, Chronic pain G89.29 [facility] [id number] [place] [address] 33373- 2098 Jul, Chronic pain G89.29 [facility] [id number] [place] [address] 81316- 9563 Jul, Chronic pain G89.29 [facility] [id number] [place] [address] 46591- 0207 Jun, Chronic pain G89.29 [facility] [id number] [place] [address] 89111- 1291 Jun, [facility] [id number] [place] [address] 06174- 7718 06 Jun, 2017 Chronic pain G89.29 [facility] [id number] [place] [address] 32237- 1377 May, Chronic pain G89.29 and Type 2 diabetes mellitus with diabetic chronic kidney disease E11.22 [facility] [id number] [place] [address] 95983- 6453 16 May, 2017 [facility] [address] 42738- 6304 May, Chronic pain G89.29 and Anxiety F41.9 [facility] [id number] [place] [address] 63834- 4450 May, Type 2 diabetes mellitus with diabetic chronic kidney disease E11.22 ; Social phobia F40.10 ; Morbid obesity E66.01 ; Chronic pain G89.29 ; HTN (hypertension) I10 ; Degenerative disc disease at L5-S1 level M51.36 ; BPH (benign prostatic hyperplasia) N40.0 ; Pain in right knee M25.561 and 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 [facility] [id number] [place] [address] 95627- 4421 Apr, Anxiety F41.9 [facility] [id number] [place] [address] 64093- 5437 Apr, [facility] [id number] [place] [address] 55378- 6609 Mar, [facility] [id number] [place] [address] 38152- 7902 Mar, Edema, unspecified type R60.9 and Anxiety F41.9 [facility] [id number] [place] [address] 65436- 8338 Mar, Social phobia F40.10 ; Mixed obsessional thoughts and acts F42.2 and Mild episode of recurrent major depressive disorder F33.0 [facility] [id number] [place] [address] 77610- 3073 Mar, Degenerative disc disease at L5-S1 level M51.36 [facility] [id number] [place] [address] 75002- 9318 Mar, [facility] [address] 26519- 6949 Mar, [facility] [id number] [place] [address] 27513- 9108 Mar, [address] 49090- 2209 February, Morbid obesity E66.01 ; Anxiety F41.9 ; Degenerative disc disease at L5-S1 level M51.36 ; BPH (benign prostatic hyperplasia) N40.0 ; Social phobia F40.10 ; HTN (hypertension) I10 ; Edema, unspecified type R60.9 and Screening cholesterol level Z13.220 [facility] [id number] [place] [address] 08246- 7902 February, Social phobia, generalized F40.11 [facility] [id number] [place] [address] 82262- 4799 February, Chronic pain G89.29 [place] [id number] [place] [address] 97061- 1521 February, [facility] [id number] [place] [address] 01654- 3420 Jan, Chronic pain G89.29 [place] [id number] [place] [address] 48697- 5264 Jan, Panic disorder [episodic paroxysmal anxiety] without agoraphobia F41.0 [facility] [id number] [place] [address] 94858- 6534 Dec, Morbid obesity E66.01 ; Anxiety F41.9 ; Chronic pain G89.29 ; HTN (hypertension) I10 ; BPH (benign prostatic hyperplasia) N40.0 ; Generalized edema R60.1 and Cough R05 [facility] [id number] [place] [address] 76220 2546 14 Nov, 2016 Chronic pain G89.29 [facility] [id number] [place] [address] 60008 2546 03 Nov, 2016 Social phobia, generalized F40.11 and Mild episode of recurrent major depressive disorder F33.0 [facility] [id number] [place] [address] 70083 2546 Oct, Chronic pain G89.29 [facility] [id number] [place] [address] 00897 254 Oct, Social phobia, generalized F40.11 [facility] [id number] [place] [address] 00992- 9736 Sep, [facility] [id number] [place] [address] 13607 2542 Sep, [facility] [id number] [place] [address] 03290 2546 Sep, [facility] [id number] [place] [address] 30601 2548 Sep, [facility] [id number] [place] [address] 39254 2546 Sep, [facility] [id number] [place] [address] 31759 2546 Sep, Social phobia, generalized F40.11 and Mild episode of recurrent major depressive disorder F33.0 [facility] [id number] [place] [address] 20609 2546 Sep, [facility] [id number] [place] [address] 97242 2546 Aug, [facility] [address] [place] [address]- 7525 Aug, [facility] [id number] [place] [address] 30035- 2255 Aug, Bronchitis J40 [facility] [id number] [place] [address] 13175- 0572 15 Aug, 2016 [facility] [address] 68997- 6851 10 Aug, 2016 Osteoarthritis of knee, unspecified M17.9 [facility] [id number] [place] [address] 01810- 8029 09 Aug, 2016 Morbid obesity E66.01 ; Chronic pain G89.29 ; Anxiety F41.9 ; Social phobia F40.10 ; HTN (hypertension) I10 ; Social phobia, generalized F40.11 ; Acute upper respiratory infection, unspecified J06.9 and Other viral agents as the cause of diseases classified elsewhere B97.89 [facility] [id number] [place] [address] 95248- 2696 Aug, Social phobia, generalized F40.11 and Dysthymic disorder F34.1 [facility] [id number] [place] [address] 72884- 9217 Jul, [facility] [id number] [place] [address] 48087- 9058 Jun, [facility] [id number] [place] [address] 03866- 4480 May, [facility] [id number] [place] [address] 86258- 4987 May, [facility] [address] 04060- 0221 May, [facility] [id number] [place] [address] 51516- 0889 May, [facility] [id number] [place] [address] 51060- 5382 May, [facility] [address], [place] [address]- 9446 May, [facility] [id number] [address]- 7271 May, [facility] [id number] [place] [address] 18689- 5007 Apr, [facility] [id number] [place] [address] 83302- 1413 Apr, Chondromalacia, right knee M94.261 [facility] [id number] [place] [address] 72509- 1834 Apr, Pain in unspecified hip M25.559 [facility] [id number] [place] [address] 54971- 0774 Mar, Social phobia, unspecified F40.10 and Pain in unspecified hip M25.559 [facility] [id number] [place] [address] 84543- 8251 February, [facility] [id number] [place] [address] 32409- 0959 February, Social phobia F40.10 [facility] [address], [place] [address]- 0347 February, Morbid obesity E66.01 ; Chronic pain G89.29 ; Social phobia F40.10 ; Pelvic pain in male R10.2 ; HTN (hypertension) I10 ; Degenerative disc disease at L5-S1 level M51.36 ; BPH (benign prostatic hyperplasia) N40.0 and Pain in right knee M25.561 [facility] [address] [place] [address] 09296- 0504 Jan, [facility] [address], [place] [address]- 1523 Jan, [facility] [id number] [place] [address] 26738- 4644 Jan, [facility] [id number] [place] [address] 58767- 6166 Dec, [facility] [id number] [place] [address] 80829- 5801 Dec, [facility] [id number] [place] [address] 44053- 6252 Dec, [facility] [id number] [place] [address] 72076 -6669 Nov, Strep pharyngitis J02.0 ; Influenza A J10.1 and Cough R05 [facility] [address] 61048- 5777 Nov, [facility] [id number] [place] [address] 81537- 8022 Nov, [facility] [id number] [place] [address] 14776- 3840 Oct, HTN (hypertension) I10 ; Morbid obesity E66.01 ; Anxiety F41.9 ; Social phobia F40.10 ; Panic disorder F41.0 ; Degenerative disc disease at L5-S1 level M51.36 and Hypercholesterolemia E78.0 [facility] [id number] [place] [address] 13162- 8070 Oct, Panic disorder [episodic paroxysmal anxiety] without agoraphobia F41.0 and Social phobia, generalized F40.11 [facility] [id number] [place] [address] 36431- 8539 Oct, [facility] [id number] [place] [address] 52891- 2377 Sep, [facility] [id number] [place] [address] 27974- 4629 Sep, [facility] [id number] [place] [address] 23002- 6945 Sep, [facility] [id number] [place] [address] 90680- 4651 Sep, [facility] [id number] [place] [address] 89609- 5314 Aug, [facility] [id number] [place] [address] 08728- 3836 Aug, [facility] [address] 23418- 9885 Aug, [facility] [address] 42727- 2432 Aug, Social phobia F40.10 and Panic disorder F41.0 [facility] [id number] [place] [address] 96590- 3504 Aug, [facility] [address] 46777- 3884 Aug, [facility] [id number] [place] [address] 05203- 1881 Aug, [facility] [id number] [place] [address] 49628- 9629 Aug, [facility] [id number] [place] [address] 79433- 2393 Jul, [facility] [id number] [place] [address] 39222- 6091 Jul, Morbid obesity E66.01 ; Chronic pain G89.29 ; Anxiety F41.9 ; Social phobia F40.10 ; Panic disorder F41.0 ; Pelvic pain in male R10.2 ; Insomnia G47.00 and HTN (hypertension) I10 [facility] [id number] [place] [address] 09975- 6113 Jul, [facility] [id number] [place] [address] 72658- 2081 Jul, [facility] [address] 67225- 6427 Jun, Degenerative disc disease 722.6 [facility] [id number] [place] [address] 08329- 9346 Jun, Pain in joint, pelvic region and thigh 719.45 ; Morbid obesity 278.01 ; Essential hypertension, benign 401.1 and Constipation 564.00 [facility] [id number] [place] [address] 15031- 4990 May, [facility] [id number] [place] [address] 61453- 4141 May, [facility] [id number] [place] [address] 95358- 6783 May, [facility] [id number] [place] [address] 44928- 5883 May, [facility] [id number] [place] [address] 06930- 4460 May, [facility] [id number] [place] [address] 24318- 8708 May, [facility] [id number] [place] [address] 25614- 0974 May, Essential hypertension, benign 401.1 ; Anxiety state, unspecified 300.00 ; Panic disorder without agoraphobia 300.01 ; Social phobia 300.23 ; Morbid obesity 278.01 ; Other chronic pain 338.29 and Insomnia 780.52 [facility] [id number] [place] [address] 78714- 7228 May, Essential hypertension 401.9 [facility] [id number] [place] [address] [id number]- 7884 May, Pain in joint, pelvic region and thigh 719.45 [facility] [id number] [place] [address] 51207- 7173 May, Essential hypertension, benign 401.1 [facility] [id number] [place] [address] 97212- 7826 May, Panic disorder without agoraphobia 300.01 and Social phobia 300.23 [facility] [id number] [place] [address] 14752- 7307 May, [facility] [id number] [id number]- [address]89 May, [facility] [id number] [place] [address] 33953- 2458 Apr, Chronic pain 338.29 [facility] [id number] [place] [address] 12076- 9510 Apr, [facility] [id number] [place] [address] 70512- 5010 Apr, [facility] [id number] [place] [address] 72320- 6545 Apr, [facility] [id number] [place] [address] 50231- 8238 Apr, [facility] [id number] [place] [address] 71530- 0792 Apr, [facility] [id number] [place] [address] [id number] 0541 Apr, [facility] [id number] [place] [address] 60284- 4948 Apr, [facility] [id number] [place] [address] [id number]- 2928 Apr, Essential hypertension, benign 401.1 ; Morbid obesity 278.01 ; Anxiety state, unspecified 300.00 ; Panic disorder without agoraphobia 300.01 ; Social phobia 300.23 and Chronic pain 338.29 [facility] [address] [address] Mar, [facility] [id number] [address] Mar, [facility] [id number], [place] [address] 05 Mar, 2015 [facility] [id number] [place] [address] 55689- 1292 Mar, [facility] [id number] [place] [address] 16243- 5215 Mar, Social phobia 300.23 and Panic disorder without agoraphobia 300.01 [facility] [id number] [place] [address] 47052- 4152 Mar, [facility] [id number] [place] [address] 25144- 9812 February, [facility] [id number] [place] [address] 18438- 2029 February, Major depression, recurrent 296.30 and No condition on [place] II V71.09 [facility] [id number] [place] [address] 43114- 5017 February, [facility] [id number] [place] [address] 04444- 7919 February, Panic disorder without agoraphobia 300.01 ; Social phobia 300.23 and Morbid obesity 278.01 [facility] [id number], [place] [address] Jan, [facility] [id number] [address] Jan, [facility] [id number], [place] [address] Dec, [facility] [id number] [place] [address] 49715- 7092 Dec, [facility] [id number], [place] [address] Dec, [facility] [id number] [address] Dec, [facility] [id number], [place] [address] Dec, [facility] [id number] [address] Dec, [facility] [id number] [address] Dec, [facility] [id number] [address] Dec, [facility] [address] [facility] [id number] [address] Dec, [facility] [id number] [place] [address] 52888- 2359 Dec, [facility] [id number] [address] Dec, [facility] [id number] [address]77 Dec, [facility] [id number] [address] 6092 Dec, [facility] [id number] [address] Dec, [facility] [id number] [address]- [address] Dec, [facility] [id number] [address] Dec, IMMUNIZATIONS No Known Immunizations SOCIAL HISTORY Never Assessed REASON FOR VISIT Transition of Care., Requesting A1C and Microalbumin, wellness labs., States he is also here because he has generalized pain.-awoods PLAN OF CARE Activity Details Follow Up 3 months or as indicated by lab Reason:DM VITAL SIGNS Height 73 in 2018-05-18 Weight 344.0 lbs 2018-05-18 Temperature 98.7 degrees Fahrenheit 2018-05-18 Heart Rate 90 bpm 2018-05-18 Respiratory Rate 20 2018-05-18 BMI 45.38 kg/m2 2018-05-18 Blood pressure systolic 112 mmHg 2018-05-18 Blood pressure diastolic 76 mmHg 2018-05-18 MEDICATIONS Medication Instructions Dosage Frequency Start Date End Date Duration Status Lisinopril 20 MG Orally Once a day 1 tablet 24h Active Lasix 80 MG Orally Once a day 2 tablets 24h Active Lancets - as directed 12h Apr, Active Gabapentin 100 MG Orally Once a day at hs x 7 days then 1 bid 1 capsule February, 28 days Active Blood Glucose Monitor System w/Device as directed Active Potassium Chloride Kristen ER 20 MEQ TAKE TWO (2) TABLETS BY MOUTH ONCE DAILY Active Pravastatin Sodium 10 MG TAKE ONE TABLET BY MOUTH ONCE DAILY Active Blood Glucose Monitor System w/Device as directed Active Levemir FlexTouch 100 UNIT/ML Subcutaneous Once a day Inject 10 units 24h Active Blood Glucose Test - as directed Active Metoprolol Succinate ER 100 MG TAKE ONE TABLET BY MOUTH ONCE DAILY Active Test strips as directed to test blood glucose 12h Apr, Active Pen [place] 31G X 8 MM as directed Jan, Active Spironolactone 25 MG Orally Once a day 1 tablet 24h Active RESULTS Name Result Date Reference Range A1C (IN HOUSE) 2018-05-18 A1C IN HOUSE 11.2 4.3 - 5.6 % Previous A1c 7.4 Lot [id number] Exp date 12/2018 PROCEDURES Procedure Date Ordered Result Body Site GLYCATED HEMOGLOBIN TEST May 18, 2018 [facility] VISIT ESTABLISHED PATIENT May 18, 2018 INSTRUCTIONS MEDICATIONS ADMINISTERED No Known [...]
--- OUTSIDE RECORDS SUMMARY | 2018-11-30 17:49 | XMS REPORT ---
Author Author ONI APPIAH [facility] Address [address] [place] [address] Care Team Providers Care Personal Care Assistant Name Role Phone ONI APPIAH Unavailable PROBLEMS Type Condition ICD9-CM Code POY68-IE Code Onset Dates Condition Status SNOMED Code Problem Type 2 diabetes mellitus with diabetic chronic kidney disease E11.22 Active 98145945 Problem Mixed hyperlipidemia E78.2 Active 893328210 Problem Primary insomnia F51.01 Active 3157583 Problem Major depressive disorder, recurrent, in full remission F33.42 Active 653582248 Problem Lymphedema I89.0 Active 891785609 Problem BMI 50.0-59.9, adult Z68.43 Active 910533334 Problem Constipation, unspecified constipation type K59.00 Active 16872049 Problem Chronic systolic congestive heart failure I50.22 Active 499800766 Problem Stasis dermatitis of both legs I87.2 Active 55328758 Problem Abnormal liver function test R94.5 Active 732253682 Problem Panic disorder F41.0 Active 110834914 Problem Controlled substance agreement terminated Z91.14 Active 873138993 Problem Cardiomegaly I51.7 Active 8693518 Problem Degenerative disc disease at L5-S1 level M51.36 Active 48322827 Problem BPH (benign prostatic hyperplasia) N40.0 Active 824794309 Problem Chronic pain G89.29 Active 89363546 Problem Dysthymic disorder F34.1 Active 16458765 Problem HTN (hypertension) I10 Active 93904288 Problem Mild episode of recurrent major depressive disorder F33.0 Active 166239980 ALLERGIES Substance Reaction Event Type Date Status Wellbutrin Unknown Non Drug Allergy Apr, Active ENCOUNTERS Encounter Location Date Diagnosis [facility] [address] [facility] [id number], [place] [address] Aug, [facility] [address] [facility] [id number], [place] [address] Jun, [facility] [id number] [place] [address] 34915- 6447 Jun, Dental examination Z01.20 [facility] [id number] [place] [address] 39459- 1401 Jun, BMI 40.0-44.9, adult Z68.41 ; Tooth infection K04.7 and Mouth pain K13.79 [facility] [id number] [place] [address] 21837- 6461 Jun, Type 2 diabetes mellitus with diabetic chronic kidney disease E11.22 [facility] [id number] [place] [address] 29918- 1763 May, Degenerative disc disease at L5-S1 level M51.36 ; Chronic pain G89.29 and BMI 40.0-44.9, adult Z68.41 [facility] [id number] [place] [address] 88452- 1195 May, [facility] [id number] [place] [address] 75493- 8821 May, Type 2 diabetes mellitus with diabetic chronic kidney disease E11.22 [facility] [id number] [place] [address] 06888- 2344 May, [facility] [id number] [place] [address] 84548- 4825 May, Degenerative disc disease at L5-S1 level M51.36 [facility] [id number] [place] [address] 29222- 2575 May, [facility] [id number] [place] [address] 72748- 0671 May, [facility] [id number] [place] [address] 80114- 3696 May, [facility] [id number] [place] [address] 56680- 1766 Apr, Type 2 diabetes mellitus with diabetic chronic kidney disease E11.22 ; Chronic pain G89.29 ; Major depressive disorder, recurrent, in full remission F33.42 ; HTN (hypertension) I10 ; Chronic systolic congestive heart failure I50.22 ; Mixed hyperlipidemia E78.2 and BMI 45.0-49.9, adult Z68.42 [address] [place] [address] 74632- 2518 Apr, Type 2 diabetes mellitus with diabetic chronic kidney disease E11.[address] 65685- 4392 17 Apr, 2018 Medicare annual wellness visit, [...] vaccine Z28.21 and Encounter for immunization Z23 [address] [id number] [place] [address] 94016- 7383 Apr, [address] [id number] [place] [address] 76732- 4446 Mar, Type 2 diabetes mellitus with diabetic chronic kidney disease E11.22 [address] [id number] [place] [address] 17677- 1795 Mar, Chronic pain G89.[address] 61884- 7277 February, Chronic pain G89.29 ; Abnormal liver function test R94.5 and Degenerative disc disease at L5-S1 level M51.36 [address] [id number] [place] [address] 73044- 9660 Jan, [address] [id number], [place] [address] 2[address] Jan, [facility] [id number] [place] [address] 54684- 8092 Jan, [facility] [id number] [place] [address] 50671- 0509 Jan, Abnormal liver function test R94.5 ; Dysthymic disorder F34.1 and Chronic pain G89.29 [facility] [id number] [place] [address] 64615- 7834 Dec, [facility] [id number] [place] [address] 68863- 5881 Dec, HTN (hypertension) I10 ; BMI 45.0-49.9, adult Z68.42 ; Chronic pain G89.29 ; Primary insomnia F51.01 ; Mixed hyperlipidemia E78.2 ; Dysthymic disorder F34.1 ; Type 2 diabetes mellitus with diabetic chronic kidney disease E11.22 ; Stasis dermatitis of both legs I87.2 and Chronic systolic congestive heart failure I50.22 [facility] [id number] [place] [address] 24456- 6953 Dec, Chronic pain G89.29 [facility] [id number] [place] [address] 55872 -1361 Dec, Lymphedema I89.0 and Chronic systolic congestive heart failure I50.22 [facility] [id number] [place] [address] 59570- 0653 Dec, [facility] [id number] [place] [address] 99520- 2177 Nov, Type 2 diabetes mellitus with diabetic chronic kidney disease E11.22 [facility] [id number] [place] [address] 22875- 7129 Nov, Chronic pain G89.29 and Dysthymic disorder F34.1 [facility] [id number] [place] [address] 41328- 0456 Nov, [facility] [facility] [id number] [place] [address] 32971- 3978 Oct, HTN (hypertension) I10 ; Chronic pain G89.29 ; BMI 45.0-49.9 , adult Z68.42 ; Primary insomnia F51.01 ; Mixed hyperlipidemia E78.2 ; Dysthymic disorder F34.1 ; Type 2 diabetes mellitus with diabetic chronic kidney disease E11.22 ; Chronic congestive heart failure, unspecified congestive heart failure type I50.9 ; Acute non-recurrent maxillary sinusitis J01.00 and BMI 50.0-59.9, adult Z68.43 [place] [address] 25048- 6200 Oct, HTN (hypertension) I10 and Dysthymic disorder F34.1 [facility] [id number] [place] [address] 37042- 8097 Oct, [place] [address] 56984- 0131 Oct, HTN (hypertension) I10 [facility] [id number] [place] [address] 42207- 0986 Oct, Chronic pain G89.29 [facility] [id number] [place] [address] 71369- 3360 Sep, [place] [id number] [place] [address] 76824- 3844 Sep, HTN (hypertension) I10 ; Chronic pain G89.29 ; BMI 45.0-49.9 , adult Z68.42 ; Primary insomnia F51.01 ; Mixed hyperlipidemia E78.2 ; Dysthymic disorder F34.1 and Type 2 diabetes mellitus with diabetic chronic kidney disease E11.22 [place] [id number] [place] [address] 23670- 9308 Sep, Chronic pain G89.29 [place] [address] 95389- 8838 Sep, Acute on chronic heart failure, unspecified heart failure type I50.9 [place] [id number] [place] [address] 90258- 5074 Sep, Acute on chronic heart failure, unspecified heart failure type I50.9 ; Type 2 diabetes mellitus with diabetic chronic kidney disease E11.22 and BMI 50.0-59.9, adult Z68.43 [facility] [id number] [place] [address] 76970- 3920 Sep, Acute on chronic heart failure, unspecified heart failure type I50.9 ; HTN (hypertension) I10 and Type 2 diabetes mellitus with diabetic chronic kidney disease E11.22 [facility] [id number] [place] [address] 04700- 6909 Aug, Acute on chronic heart failure, unspecified heart failure type I50.9 ; HTN (hypertension) I10 ; Type 2 diabetes mellitus with diabetic chronic kidney disease E11.22 ; Cellulitis of right lower extremity L03.115 and BMI 50.0-59.9, adult Z68.43 [facility] [id number] [place] [address] 42105 -8891 Aug, Acute upper respiratory infection, unspecified J06.9 ; Other viral agents as the cause of diseases classified elsewhere B97.89 ; Constipation, unspecified constipation type K59.00 ; BMI 50.0-59.9, adult Z68.43 and BMI 60.0-69.9, adult Z68.44 [place] [id number] [place] [address] 60670- 2910 Aug, Chronic pain G89.29 [facility] [facility] [id number] [place] [address] 91786- 3956 Jul, Chronic pain G89.29 [facility] [id number] [place] [address] 60314- 8748 Jul, Chronic pain G89.29 [facility] [id number] [place] [address] 71787- 2096 Jun, Chronic pain G89.29 [facility] [id number] [place] [address] 46204- 2283 18 Jun, 2017 [facility] [id number] [place] [address] 88476- 5465 06 Jun, 2017 Chronic pain G89.29 [facility] [facility] [id number] [place] [address] 92638- 6683 May, Chronic pain G89.29 and Type 2 diabetes mellitus with diabetic chronic kidney disease E11.22 [facility] [place] [id number] [place] [address] 04165- 3914 16 May, 2017 [facility] [id number] [place] [address] 41921- 3429 May, Chronic pain G89.29 and Anxiety F41.9 [place] [id number] [place] [address] 25455- 4602 May, Type 2 diabetes mellitus with diabetic chronic kidney disease E11.22 ; Social phobia F40.10 ; Morbid obesity E66.01 ; Chronic pain G89.29 ; HTN (hypertension) I10 ; Degenerative disc disease at L5-S1 level M51.36 ; BPH (benign prostatic hyperplasia) N40.0 ; Pain in right knee M25.561 and 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 [facility] [id number] [place] [address] 64213- 9086 Apr, Anxiety F41.9 [place] [id number] [place] [address] 83095- 4110 Apr, [facility] [id number] [place] [address] 01839- 8402 Mar, [place] [id number] [place] [address] 16125- 3904 Mar, Edema, unspecified type R60.9 and Anxiety F41.9 [facility] [id number] [place] [address] 03397- 9864 Mar, Social phobia F40.10 ; Mixed obsessional thoughts and acts F42.2 and Mild episode of recurrent major depressive disorder F33.0 [place] [address] 55582- 5043 Mar, Degenerative disc disease at L5-S1 level M51.36 [place] [address] 63790- 6907 Mar, [place] [address] 14097- 4017 Mar, [place] [address] 62508- 3276 Mar, [place] [address] 52016- 3146 February, Morbid obesity E66.01 ; Anxiety F41.9 ; Degenerative disc disease at L5-S1 level M51.36 ; BPH (benign prostatic hyperplasia) N40.0 ; Social phobia F40.10 ; HTN (hypertension) I10 ; Edema, unspecified type R60.9 and Screening cholesterol level Z13.220 [place] [address] 16136- 4995 February, Social phobia, generalized F40.11 [place] [id number] [place] [address] 08960- 9094 February, Chronic pain G89.29 [place] [address] 05463- 9266 February, [place] [id number] [place] [address] 46081- 2253 Jan, Chronic pain G89.29 [place] [address] 36359- 6041 Jan, Panic disorder [episodic paroxysmal anxiety] without agoraphobia F41.0 [facility] [id number] [place] [address] 98952- 6350 Dec, Morbid obesity E66.01 ; Anxiety F41.9 ; Chronic pain G89.29 ; HTN (hypertension) I10 ; BPH (benign prostatic hyperplasia) N40.0 ; Generalized edema R60.1 and Cough R05 [facility] [id number] [place] [address] 78574 2546 14 Nov, 2016 Chronic pain G89.29 [facility] [id number] [place] [address] 15264 2546 03 Nov, 2016 Social phobia, generalized F40.11 and Mild episode of recurrent major depressive disorder F33.0 [facility] [id number] [place] [address] 75495- 8016 Oct, Chronic pain G89.29 [facility] [id number] [place] [address] 17686 2544 Oct, Social phobia, generalized F40.11 [facility] [id number] [place] [address] 58376- 7548 Sep, [facility] [id number] [place] [address] 36237 254 Sep, [facility] [id number] [place] [address] 98220- 2750 Sep, [facility] [id number] [place] [address] 84182 2541 Sep, [facility] [id number] [place] [address] 64652 2546 Sep, [facility] [id number] [place] [address] 60952 2546 Sep, Social phobia, generalized F40.11 and Mild episode of recurrent major depressive disorder F33.0 [facility] [id number] [place] [address] 54531 2546 Sep, [facility] [id number] [place] [address] 68494 2546 Aug, [facility] [id number] [place] [address] 56468- 8810 Aug, [facility] [id number] [place] [address] 12785- 1137 17 Aug, 2016 Bronchitis J40 [facility] [id number] [place] [address] 93737- 4832 15 Aug, 2016 [facility] [id number] [place] [address] 31887- 3290 10 Aug, 2016 Osteoarthritis of knee, unspecified M17.9 [facility] [id number] [place] [address] 07589- 5196 09 Aug, 2016 Morbid obesity E66.01 ; Chronic pain G89.29 ; Anxiety F41.9 ; Social phobia F40.10 ; HTN (hypertension) I10 ; Social phobia, generalized F40.11 ; Acute upper respiratory infection, unspecified J06.9 and Other viral agents as the cause of diseases classified elsewhere B97.89 [facility] [id number] [place] [address] 50033- 5455 Aug, Social phobia, generalized F40.11 and Dysthymic disorder F34.1 [facility] [id number] [place] [address] 26656- 8558 Jul, [facility] [id number] [place] [address] 38776- 3033 Jun, [facility] [id number] [place] [address] 21603- 3505 May, [facility] [id number] [place] [address] 46022- 0930 May, [facility] [id number] [place] [address] 05141- 9988 May, [facility] [id number] [place] [address] 51361- 0549 May, [facility] [id number] [place] [address] 57939- 8825 May, [facility] [address] [address]- 9321 May, [facility] [id number] [place] [address] 93751- 0864 May, [facility] [id number] [place] [address] 37933- 0141 Apr, [facility] [id number] [place] [address] 28046- 5558 Apr, Chondromalacia, right knee M94.261 [facility] [id number] [place] [address] 27187- 9130 Apr, Pain in unspecified hip M25.559 [facility] [id number] [place] [address] 15933- 7617 Mar, Social phobia, unspecified F40.10 and Pain in unspecified hip M25.559 [facility] [id number] [place] [address] 61317- 5876 February, [facility] [id number] [place] [address] 63070- 1402 February, Social phobia F40.10 [facility] [id number] [place] [address] 84037- 0002 February, Morbid obesity E66.01 ; Chronic pain G89.29 ; Social phobia F40.10 ; Pelvic pain in male R10.2 ; HTN (hypertension) I10 ; Degenerative disc disease at L5-S1 level M51.36 ; BPH (benign prostatic hyperplasia) N40.0 and Pain in right knee M25.561 [facility] [id number] [place] [address] 50366- 8678 Jan, [facility] [id number] [place] [address] 69276- 1998 Jan, [facility] [id number] [place] [address] 92708- 2230 Jan, [facility] [id number] [place] [address] 19485- 7261 Dec, [facility] [id number] [place] [address] 26743- 6522 Dec, [facility] [id number] [place] [address] 20406- 2697 Dec, [facility] [id number] [place] [address] 83718 -9482 Nov, Strep pharyngitis J02.0 ; Influenza A J10.1 and Cough R05 [place] [id number] [place] [address] 41107- 6873 Nov, [facility] [id number] [place] [address] 50338- 6530 Nov, [facility] [id number] [place] [address] 48316- 0482 Oct, HTN (hypertension) I10 ; Morbid obesity E66.01 ; Anxiety F41.9 ; Social phobia F40.10 ; Panic disorder F41.0 ; Degenerative disc disease at L5-S1 level M51.36 and Hypercholesterolemia E78.0 [facility] [id number] [place] [address] 69921- 2890 Oct, Panic disorder [episodic paroxysmal anxiety] without agoraphobia F41.0 and Social phobia, generalized F40.11 [facility] [id number] [place] [address] 48453- 6304 Oct, [facility] [id number] [place] [address] 69656- 9879 Sep, [facility] [id number] [place] [address] 20118- 8552 Sep, [facility] [id number] [place] [address] 53748- 7785 Sep, [facility] [id number] [place] [address] 82141- 3643 Sep, [facility] [id number] [place] [address] 36023- 2464 Aug, [facility] [id number] [place] [address] 32353- 8436 Aug, [facility] [address] 40240- 2802 Aug, [facility] [id number] [place] [address] 36621- 2916 Aug, Social phobia F40.10 and Panic disorder F41.0 [facility] [id number] [place] [address] 51215- 1233 Aug, [facility] [id number] [place] [address] 61057- 2163 Aug, [facility] [id number] [place] [address] 74837- 8827 Aug, [facility] [id number] [place] [address] 81024- 8265 Aug, [facility] [id number] [place] [address] 69196- 7430 Jul, [facility] [id number] [place] [address] 75637- 7988 Jul, Morbid obesity E66.01 ; Chronic pain G89.29 ; Anxiety F41.9 ; Social phobia F40.10 ; Panic disorder F41.0 ; Pelvic pain in male R10.2 ; Insomnia G47.00 and HTN (hypertension) I10 [facility] [id number] [place] [address] 14145- 2547 Jul, [facility] [id number] [place] [address] 69409- 6206 Jul, [facility] [address] [place] [address]- 8342 16 Jun, 2015 Degenerative disc disease 722.6 [facility] [id number] [place] [address] 65378- 8553 Jun, Pain in joint, pelvic region and thigh 719.45 ; Morbid obesity 278.01 ; Essential hypertension, benign 401.1 and Constipation 564.00 [facility] [id number] [place] [address] 47807- 2674 May, [facility] [id number] [place] [address] 85254- 5448 May, [facility] [address] [address]- 1171 May, [facility] [id number] [place] [address] 27129- 9113 May, [facility] [id number] [place] [address] 82880- 8144 May, [facility] [id number] [place] [address] [phone]- 1809 May, [facility] [id number] [place] [address] 98942- 6514 May, Essential hypertension, benign 401.1 ; Anxiety state, unspecified 300.00 ; Panic disorder without agoraphobia 300.01 ; Social phobia 300.23 ; Morbid obesity 278.01 ; Other chronic pain 338.29 and Insomnia 780.52 [facility] [id number] [place] [address] 97085- 0171 May, Essential hypertension 401.9 [facility] [id number] [place] [address] 18979- 6579 May, Pain in joint, pelvic region and thigh 719.45 [facility] [id number] [place] [address] 04529- 8963 May, Essential hypertension, benign 401.1 [facility] [address] [id number] [address] May, Panic disorder without agoraphobia 300.01 and Social phobia 300.23 [facility] [id number] [place] [address] 97765- 2700 May, [facility] [address] [id number] [address] 0643 May, [facility] [id number] [place] [address] [id number]- 0922 Apr, Chronic pain 338.29 [facility] [id number] [place] [address] 91619- 1802 Apr, [facility] [id number] [place] [address] 15100- 0468 Apr, [facility] [id number] [place] [address] 17941- 6841 Apr, [facility] [id number] [place] [address] 90241- 6786 Apr, [facility] [id number] [place] [address] 83936- 6492 Apr, [facility] [id number] [place] [address] 27572- 7101 Apr, [facility] [id number] [address] Apr, [facility] [id number] [place] [address] [id number]- 2807 Apr, Essential hypertension, benign 401.1 ; Morbid obesity 278.01 ; Anxiety state, unspecified 300.00 ; Panic disorder without agoraphobia 300.01 ; Social phobia 300.23 and Chronic pain 338.29 [facility] [id number] [id number]85 Mar, [facility] [id number] [place] [address] 63018- 0920 Mar, [facility] [id number], [place] [address] 1411 Mar, [facility] [id number] [place] [address] 13311- 1058 Mar, [facility] [id number], [place] [address] 2162 Mar, Social phobia 300.23 and Panic disorder without agoraphobia 300.01 [facility] [id number] [address] 9245 Mar, [facility] [id number] [place] [address] 31716- 9270 February, [facility] [id number] [place] [address] 74303- 2782 February, Major depression, recurrent 296.30 and No condition on [place] II V71.09 [facility] [id number], [place] [address] 6[address] February, [facility] [id number], [place] [address] 4826 February, Panic disorder without agoraphobia 300.01 ; Social phobia 300.23 and Morbid obesity 278.01 [facility] [id number], [place] [address] 6[address] Jan, [facility] [id number] [address] 1347 Jan, [facility] [id number], [place] [address]- 7606 Dec, [facility] [id number] [address] 4972 Dec, [facility] [id number], [place] [address]- 8788 Dec, [facility] [id number], [place] [address]- 6412 Dec, [facility] [address] [facility] [id number] [address] 6851 Dec, [facility] [address] [facility] [id number], [place] [address]- 3362 Dec, [facility] [address] [facility] [id number], [place] [address]- 9094 Dec, [facility] [address] [facility] [id number], [place] [address]- 2237 Dec, [facility] [address] [facility] [id number], [place] [address] 1939 Dec, [facility] [address] [facility] [id number], [place] [address]- 9672 Dec, [facility] [id number], [place] [address]- 3120 Dec, [facility] [id number], [place] [address]- 7555 Dec, [facility] [id number], [place] [address]- 3886 Dec, [facility] [id number], [place] [address]- 6842 Dec, [facility] [id number] [address]- 0651 Dec, [facility] [id number], [place] [address] 4050 Dec, IMMUNIZATIONS No Known Immunizations SOCIAL HISTORY Never Assessed REASON FOR VISIT Medicare ADELA Friedman MA PLAN OF CARE Activity Details Follow Up 1 Year Reason: VITAL SIGNS Height 73 in 2018-05-09 Weight 343.4 lbs 2018-05-09 Temperature 98.1 degrees Fahrenheit 2018-05-09 Heart Rate 88 bpm 2018-05-09 Respiratory Rate 18 2018-05-09 BMI 45.30 kg/m2 2018-05-09 Blood pressure systolic 104 mmHg 2018-05-09 Blood pressure diastolic 68 mmHg 2018-05-09 MEDICATIONS Medication Instructions Dosage Frequency Start Date End Date Duration Status Lasix 80 MG Orally Once a day 2 tablets 24h Active Blood Glucose Monitor System w/Device as directed Active Blood Glucose Test - as directed Active Spironolactone 25 MG Orally Once a day 1 tablet 24h 30 Active Levemir FlexTouch 100 UNIT/ML Subcutaneous Once a day Inject 10 units 24h 140 Active Lisinopril 20 MG Orally Once a day 1 tablet 24h Active Potassium Chloride Kristen ER 20 MEQ TAKE TWO (2) TABLETS BY MOUTH ONCE DAILY 30 Active Metoprolol Succinate ER 100 MG TAKE ONE TABLET BY MOUTH ONCE DAILY Active Gabapentin 300 MG Orally Once a day at hs x 7 days then 1 bid 1 capsule February, 28 days Not-Taking Pravastatin Sodium 10 MG TAKE ONE TABLET BY MOUTH ONCE DAILY 30 Active Pen [place] 31G X 8 MM as directed Jan, Active RESULTS No Results PROCEDURES Procedure Date Ordered Result Body Site FOR[facility], [facility]1983 VISIT IPPE/AWV May 09, 2018 ANNUAL SONIA VST; PERSNL PPS INIT May 09, 2018 PT TOBACCO SCREEN RCVD TLK May 09, 2018 FALL RISK ASSESSMENT DOCD May 09, 2018 INSTRUCTIONS MEDICATIONS ADMINISTERED No Known Medications [...]
--- OUTSIDE RECORDS SUMMARY | 2018-11-30 17:50 | XMS REPORT ---
Author Author YONAS BELLE [facility] Address [address] [place] [address] Care Team Providers Care Channel Rougher Name Role Phone YONAS BELLE Unavailable PROBLEMS Type Condition ICD9-CM Code BZZ49-VH Code Onset Dates Condition Status SNOMED Code Problem Type 2 diabetes mellitus with diabetic chronic kidney disease E11.22 Active 37136330 Problem Mixed hyperlipidemia E78.2 Active 002013118 Problem Primary insomnia F51.01 Active 3431945 Problem Major depressive disorder, recurrent, in full remission F33.42 Active 179124301 Problem Lymphedema I89.0 Active 792793913 Problem BMI 50.0-59.9, adult Z68.43 Active 906001602 Problem Constipation, unspecified constipation type K59.00 Active 99217044 Problem Chronic systolic congestive heart failure I50.22 Active 782940354 Problem Stasis dermatitis of both legs I87.2 Active 77007004 Problem Abnormal liver function test R94.5 Active 796024386 Problem Panic disorder F41.0 Active 747255587 Problem Controlled substance agreement terminated Z91.14 Active 929822247 Problem Cardiomegaly I51.7 Active 6435403 Problem Degenerative disc disease at L5-S1 level M51.36 Active 62069775 Problem BPH (benign prostatic hyperplasia) N40.0 Active 324810074 Problem Chronic pain G89.29 Active 43677128 Problem Dysthymic disorder F34.1 Active 16539276 Problem HTN (hypertension) I10 Active 18646578 Problem Mild episode of recurrent major depressive disorder F33.0 Active 976199797 ALLERGIES No Information ENCOUNTERS Encounter Location Date Diagnosis [facility], [place] [id number] [address] Aug, [facility], [place] [address] [facility] [id number] [address] Jun, [facility], [place] [address], [place] [address] 12 Jun, 2018 Dental examination Z01.20 [facility], [place] [id number] [place] [address] 69167- 3705 Jun, BMI 40.0-44.9, adult Z68.41 and Tooth infection K04.7 [facility], [place] [id number] [place] [address] 28453- 9325 Jun, Type 2 diabetes mellitus with diabetic chronic kidney disease E11.22 [facility], [place] [id number] [place] [address] 43504- 8964 May, Degenerative disc disease at L5-S1 level M51.36 ; Chronic pain G89.29 and BMI 40.0-44.9, adult Z68.41 [place] [id number] [place] [address] 57969- 8150 May, [facility], [place] [id number] [place] [address] 20594- 8166 May, Type 2 diabetes mellitus with diabetic chronic kidney disease E11.22 [facility], [place] [id number] [place] [address] 08833- 6221 May, [facility], [place] [id number] [place] [address] 43466- 1973 May, Degenerative disc disease at L5-S1 level M51.36 [facility], [place] [address] [place] [address] 19253- 6230 May, [facility], [place] [address] [place] [address] 76449- 8976 May, [facility], [place] [id number] [place] [address] 43325- 0201 May, [facility], [place] [address] [place] [address] 35198- 4017 Apr, Type 2 diabetes mellitus with diabetic chronic kidney disease E11.22 ; Chronic pain G89.29 ; Major depressive disorder, recurrent, in full remission F33.42 ; HTN (hypertension) I10 ; Chronic systolic congestive heart failure I50.22 ; Mixed hyperlipidemia E78.2 and BMI 45.0-49.9, adult Z68.42 [place] [id number] [place] [address] 34907- 9028 18 Apr, 2018 Type 2 diabetes mellitus with diabetic chronic kidney disease E11.[address] [address]44- 6252 17 Apr, 2018 Medicare annual wellness visit, [...] vaccine Z28.21 and Encounter for immunization Z23 [address] 05773- 1136 Apr, [id number] [place] [address] 94628- 2633 Mar, Type 2 diabetes mellitus with diabetic chronic kidney disease E11.22 [place] [id number] [place] [address] 92533- 5983 Mar, Chronic pain G89.29 [id number] [place] [address] 25358- 7927 February, Chronic pain G89.29 ; Abnormal liver function test R94.5 and Degenerative disc disease at L5-S1 level M51.36 [place] [id number] [place] [address] 49307- 9930 Jan, [place] [address] 24116- 9494 Jan, [facility], [place] [id number] [place] [address] 57031- 2805 Jan, [facility], [place] [id number] [place] [address] 99819- 8553 Jan, Abnormal liver function test R94.5 ; Dysthymic disorder F34.1 and Chronic pain G89.29 [facility], [place] [id number] [place] [address] 22134- 6037 Dec, [facility], [place] [id number] [place] [address] 66845- 1731 Dec, HTN (hypertension) I10 ; BMI 45.0-49.9, adult Z68.42 ; Chronic pain G89.29 ; Primary insomnia F51.01 ; Mixed hyperlipidemia E78.2 ; Dysthymic disorder F34.1 ; Type 2 diabetes mellitus with diabetic chronic kidney disease E11.22 ; Stasis dermatitis of both legs I87.2 and Chronic systolic congestive heart failure I50.22 [facility], [place] [id number] [place] [address] 89618- 7895 Dec, Chronic pain G89.29 [facility] [id number] [place] [address] 28402 -4279 Dec, Lymphedema I89.0 and Chronic systolic congestive heart failure I50.22 [facility], [place] [address] [place] [address] 37280- 0189 Dec, [facility], [place] [id number] [place] [address] 03159- 5841 Nov, Type 2 diabetes mellitus with diabetic chronic kidney disease E11.22 [facility], [place] [id number] [place] [address] 69826- 6164 Nov, Chronic pain G89.29 and Dysthymic disorder F34.1 [facility], [place] [address] [place] [address] 17629- 3719 Nov, [facility], [place] [address] [address] 7460 30 Oct, 2017 HTN (hypertension) I10 ; Chronic pain G89.29 ; BMI 45.0-49.9 , adult Z68.42 ; Primary insomnia F51.01 ; Mixed hyperlipidemia E78.2 ; Dysthymic disorder F34.1 ; Type 2 diabetes mellitus with diabetic chronic kidney disease E11.22 ; Chronic congestive heart failure, unspecified congestive heart failure type I50.9 ; Acute non-recurrent maxillary sinusitis J01.00 and BMI 50.0-59.9, adult Z68.43 [place] [id number] [place] [address] 50952- 2708 17 Oct, 2017 HTN (hypertension) I10 and Dysthymic disorder F34.1 [place] [id number] [place] [address] 37163- 8502 Oct, [place] [id number] [place] [address] 32404- 8171 Oct, HTN (hypertension) I10 [place] [id number] [place] [address] 10765- 4619 11 Oct, 2017 Chronic pain G89.29 [place] [id number] [place] [address] 64438- 9778 28 Sep, 2017 [place] [id number] [place] [address] 11508- 7542 Sep, HTN (hypertension) I10 ; Chronic pain G89.29 ; BMI 45.0-49.9 , adult Z68.42 ; Primary insomnia F51.01 ; Mixed hyperlipidemia E78.2 ; Dysthymic disorder F34.1 and Type 2 diabetes mellitus with diabetic chronic kidney disease E11.22 [place] [id number] [place] [address] 09227- 0721 18 Sep, 2017 Chronic pain G89.29 [place] [id number] [place] [address] 46118- 8660 Sep, Acute on chronic heart failure, unspecified heart failure type I50.9 [place] [address], [place] [address] 7288 Sep, Acute on chronic heart failure, unspecified heart failure type I50.9 ; Type 2 diabetes mellitus with diabetic chronic kidney disease E11.22 and BMI 50.0-59.9, adult Z68.43 [facility], [place] [id number] [place] [address] 12375- 5492 Sep, Acute on chronic heart failure, unspecified heart failure type I50.9 ; HTN (hypertension) I10 and Type 2 diabetes mellitus with diabetic chronic kidney disease E11.22 [place] [id number] [place] [address] 92170- 8537 Aug, Acute on chronic heart failure, unspecified heart failure type I50.9 ; HTN (hypertension) I10 ; Type 2 diabetes mellitus with diabetic chronic kidney disease E11.22 ; Cellulitis of right lower extremity L03.115 and BMI 50.0-59.9, adult Z68.43 [facility] [address] [place] [address] 59175 -0913 Aug, Acute upper respiratory infection, unspecified J06.9 ; Other viral agents as the cause of diseases classified elsewhere B97.89 ; Constipation, unspecified constipation type K59.00 ; BMI 50.0-59.9, adult Z68.43 and BMI 60.0-69.9, adult Z68.44 [place] [address] [place] [address] 12946- 9105 Aug, Chronic pain G89.29 [place] [id number] [place] [address] 48442- 7034 Jul, Chronic pain G89.29 [place] [id number] [place] [address] 56148- 3021 Jul, Chronic pain G89.29 [place] [id number] [place] [address] 75852- 6966 Jun, Chronic pain G89.29 [place] [id number] [place] [address] 89404- 8284 Jun, [place] [id number] [place] [address] 81444- 0155 Jun, Chronic pain G89.29 [place] [id number] [place] [address] 05686- 4168 May, Chronic pain G89.29 and Type 2 diabetes mellitus with diabetic chronic kidney disease E11.22 [place] [id number] [place] [address] 20065- 0466 16 May, 2017 [place] [id number] [place] [address] 71329- 0836 May, Chronic pain G89.29 and Anxiety F41.9 [place] [id number] [place] [address] 69017- 2825 May, Type 2 diabetes mellitus with diabetic chronic kidney disease E11.22 ; Social phobia F40.10 ; Morbid obesity E66.01 ; Chronic pain G89.29 ; HTN (hypertension) I10 ; Degenerative disc disease at L5-S1 level M51.36 ; BPH (benign prostatic hyperplasia) N40.0 ; Pain in right knee M25.561 and 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 [place] [id number] [place] [address] 49162- 6336 Apr, Anxiety F41.9 [place] [id number] [place] [address] 47210- 4570 Apr, [place] [id number] [place] [address] 52644- 5443 Mar, [place] [id number] [place] [address] 49374- 9117 Mar, Edema, unspecified type R60.9 and Anxiety F41.9 [place] [id number] [place] [address] 19407- 3149 Mar, Social phobia F40.10 ; Mixed obsessional thoughts and acts F42.2 and Mild episode of recurrent major depressive disorder F33.0 [place] [address], [place] [address]- 9052 Mar, Degenerative disc disease at L5-S1 level M51.36 [place] [id number] [place] [address] 49370- 0943 Mar, [place] [id number] [place] [address] 31781- 8848 Mar, [place] [id number] [place] [address] 80796- 5891 Mar, [place] [id number] [place] [address] 12925- 3243 February, Morbid obesity E66.01 ; Anxiety F41.9 ; Degenerative disc disease at L5-S1 level M51.36 ; BPH (benign prostatic hyperplasia) N40.0 ; Social phobia F40.10 ; HTN (hypertension) I10 ; Edema, unspecified type R60.9 and Screening cholesterol level Z13.220 [place] [id number] [place] [address] 82161- 8310 February, Social phobia, generalized F40.11 [place] [id number] [place] [address] 56682- 1085 February, Chronic pain G89.29 [place] [id number] [place] [address] 56895- 7321 February, [place] [id number] [place] [address] 42656- 8372 Jan, Chronic pain G89.29 [place] [id number] [place] [address] 99296- 3881 Jan, Panic disorder [episodic paroxysmal anxiety] without agoraphobia F41.0 [place] [address] [place] [address] 09675- 8879 Dec, Morbid obesity E66.01 ; Anxiety F41.9 ; Chronic pain G89.29 ; HTN (hypertension) I10 ; BPH (benign prostatic hyperplasia) N40.0 ; Generalized edema R60.1 and Cough R05 [facility], [place] [id number] [place] [address] 86764- 8846 14 Nov, 2016 Chronic pain G89.29 [facility], [place] [id number] [place] [address] 93042 2546 03 Nov, 2016 Social phobia, generalized F40.11 and Mild episode of recurrent major depressive disorder F33.0 [facility], [place] [id number] [place] [address] 04511 2546 17 Oct, 2016 Chronic pain G89.29 [facility], [place] [id number] [place] [address] 07834 2546 Oct, Social phobia, generalized F40.11 [facility], [place] [id number] [place] [address] 89856- 5956 Sep, [facility], [place] [id number] [place] [address] 97378 2546 Sep, [facility], [place] [id number] [place] [address] 05591- 0576 Sep, [facility], [place] [id number] [place] [address] 03738 2546 Sep, [facility], [place] [id number] [place] [address] 81828 2546 Sep, [facility], [place] [id number] [place] [address] 73953 2546 Sep, Social phobia, generalized F40.11 and Mild episode of recurrent major depressive disorder F33.0 [facility], [place] [id number] [place] [address] 70050 2546 Sep, [facility], [place] [id number] [place] [address] 37638 2546 Aug, [facility], [place] [id number] [place] [address] 60529- 4518 Aug, [facility], [place] [address] [place] [address] 20527- 4623 Aug, Bronchitis J40 [facility], [place] [id number] [place] [address] 43915- 8712 15 Aug, 2016 [facility], [place] [id number] [place] [address] 80786- 4447 Aug, Osteoarthritis of knee, unspecified M17.9 [facility], [place] [id number] [place] [address] 30286- 5763 09 Aug, 2016 Morbid obesity E66.01 ; Chronic pain G89.29 ; Anxiety F41.9 ; Social phobia F40.10 ; HTN (hypertension) I10 ; Social phobia, generalized F40.11 ; Acute upper respiratory infection, unspecified J06.9 and Other viral agents as the cause of diseases classified elsewhere B97.89 [facility], [place] [id number] [place] [address] 97618- 6905 Aug, Social phobia, generalized F40.11 and Dysthymic disorder F34.1 [facility], [place] [id number] [place] [address] 97890- 5477 Jul, [facility], [place] [id number] [place] [address] 03307- 0792 Jun, [facility], [place] [address] [place] [address] 22667- 3950 May, [facility], [place] [id number] [place] [address] 55787- 2444 May, [facility], [place] [id number] [place] [address] 39458- 3021 May, [facility], [place] [address] [place] [address] 87818- 5763 May, [facility], [place] [address] [place] [address] 06929- 0416 May, [facility], [place] [address], [place] [address]- 9273 May, [facility], [place] [id number] [place] [address] 31852- 6287 May, [facility], [place] [id number] [place] [address] 49980- 4844 Apr, [facility], [place] [id number] [place] [address] 20805- 8450 Apr, Chondromalacia, right knee M94.261 [facility], [place] [id number] [place] [address] 70576- 9806 Apr, Pain in unspecified hip M25.559 [place] [id number] [place] [address] 67238- 9935 Mar, Social phobia, unspecified F40.10 and Pain in unspecified hip M25.559 [place] [id number] [place] [address] 47885- 7249 February, [facility], [place] [id number] [place] [address] 83094- 6033 February, Social phobia F40.10 [place] [id number] [place] [address] 94261- 7785 February, Morbid obesity E66.01 ; Chronic pain G89.29 ; Social phobia F40.10 ; Pelvic pain in male R10.2 ; HTN (hypertension) I10 ; Degenerative disc disease at L5-S1 level M51.36 ; BPH (benign prostatic hyperplasia) N40.0 and Pain in right knee M25.561 [facility], [place] [id number] [place] [address] 43683- 1198 Jan, [facility], [place] [id number] [place] [address] 88293- 9970 Jan, [facility], [place] [id number] [place] [address] 84905- 9394 Jan, [facility], [place] [id number] [place] [address] 34033- 6047 17 Dec, 2015 [facility], [place] [id number] [place] [address] 09606- 6732 Dec, [facility], [place] [id number] [place] [address] 49807- 4179 Dec, [facility] [id number] [place] [address] 44004 -5387 Nov, Strep pharyngitis J02.0 ; Influenza A J10.1 and Cough R05 [facility], [place] [address] 73204- 1194 Nov, [facility], [place] [address] 64814- 9010 Nov, [facility], [place] [address] 97472- 3000 Oct, HTN (hypertension) I10 ; Morbid obesity E66.01 ; Anxiety F41.9 ; Social phobia F40.10 ; Panic disorder F41.0 ; Degenerative disc disease at L5-S1 level M51.36 and Hypercholesterolemia E78.0 [facility], [place] [id number] [place] [address] 90505- 3317 Oct, Panic disorder [episodic paroxysmal anxiety] without agoraphobia F41.0 and Social phobia, generalized F40.11 [facility], [place] [id number] [place] [address] 34920- 1642 Oct, [facility], [place] [id number] [place] [address] 09162- 3196 Sep, [facility], [place] [address] 42835- 1353 Sep, [facility] [place] [id number] [place] [address] 44057- 8681 Sep, [facility] [place] [address] 62069- 3638 Sep, [facility] [place] [id number] [place] [address] 68868- 0388 Aug, [facility] [place] [id number] [place] [address] 98839- 4934 Aug, [facility] [place] [id number] [place] [address] 48472- 7374 Aug, [facility] [place] [id number] [place] [address] 27892- 5727 Aug, Social phobia F40.10 and Panic disorder F41.0 [facility] [place] [id number] [place] [address] 96908- 6494 Aug, [facility] [place] [id number] [place] [address] 44398- 6237 Aug, [facility] [place] [id number] [place] [address] 80781- 1206 Aug, [facility] [place] [id number] [place] [address] 04550- 2589 Aug, [facility] [place] [id number] [place] [address] 40600- 9893 Jul, [facility], [place] [id number] [place] [address] 85624- 5176 Jul, Morbid obesity E66.01 ; Chronic pain G89.29 ; Anxiety F41.9 ; Social phobia F40.10 ; Panic disorder F41.0 ; Pelvic pain in male R10.2 ; Insomnia G47.00 and HTN (hypertension) I10 [facility] [place] [id number] [place] [address] [id number]- [phone] Jul, [facility], [place] [id number] [place] [address] 26903- 5998 Jul, [facility], [place] [id number] [place] [address] [phone]- 5277 Jun, Degenerative disc disease 722.6 [facility], [place] [id number] [place] [address] 81513- 8438 Jun, Pain in joint, pelvic region and thigh 719.45 ; Morbid obesity 278.01 ; Essential hypertension, benign 401.1 and Constipation 564.00 [facility], [place] [id number] [place] [address] [phone]- 3067 May, [facility], [place] [address] 43780- [address]88 May, [facility], [place] [id number] [place] [address] 60510- 0870 May, [facility], [place] [id number] [place] [address] 16895- 1359 May, [facility], [place] [id number] [place] [address] 45799- 3793 May, [facility], [place] [id number] [place] [address] 12112- 1115 May, [facility], [place] [id number] [place] [address] 54491- 6846 May, Essential hypertension, benign 401.1 ; Anxiety state, unspecified 300.00 ; Panic disorder without agoraphobia 300.01 ; Social phobia 300.23 ; Morbid obesity 278.01 ; Other chronic pain 338.29 and Insomnia 780.52 [facility], [place] [id number] [place] [address] 42838- 4006 May, Essential hypertension 401.9 [facility], [place] [id number] [place] [address] 31797- 7954 May, Pain in joint, pelvic region and thigh 719.45 [facility], [place] [id number] [place] [address] 28789- 8322 May, Essential hypertension, benign 401.1 [facility], [place] [id number] [place] [address] 26224- 8412 May, Panic disorder without agoraphobia 300.01 and Social phobia 300.23 [facility], [place] [id number] [address] 7902 May, [facility], [place] [address] [address] May, [facility], [place] [id number] [address] Apr, Chronic pain 338.29 [facility], [place] [id number] [place] [address]7554- 3116 Apr, [facility], [place] [id number] [place] [address]4750- 7786 Apr, [facility], [place] [id number] [place] [address] 66169- 4707 Apr, [facility], [place] [id number] [place] [address] 76091- 1609 Apr, [facility], [place] [id number] [place] [address] 98076- 7237 Apr, [facility], [place] [id number] [place] [address] 28524- 7766 Apr, [facility], [place] [address], [place] [address] Apr, [facility], [place] [address], [place] [address] Apr, Essential hypertension, benign 401.1 ; Morbid obesity 278.01 ; Anxiety state, unspecified 300.00 ; Panic disorder without agoraphobia 300.01 ; Social phobia 300.23 and Chronic pain 338.29 [facility], [place] [address], [place] [address] Mar, [facility], [place] [address], [place] [address] Mar, [facility], [place] [id number] [place] [address] 14498- 9137 Mar, [facility], [place] [address], [place] [address] 4[address] Mar, [facility], [place] [id number] [place] [address] [id number]- 5802 Mar, Social phobia 300.23 and Panic disorder without agoraphobia 300.01 [facility], [place] [id number] [place] [address] 92224- 1737 Mar, [facility], [place] [id number] [place] [address] 37600- 3506 February, [facility], [place] [id number] [place] [address] 19636- 5041 February, Major depression, recurrent 296.30 and No condition on H[place] II V71.09 [facility], [place] [id number] [place] [address] 61369- 1329 February, [facility], [place] [id number] [place] [address] 06384- 8890 February, Panic disorder without agoraphobia 300.01 ; Social phobia 300.23 and Morbid obesity 278.01 [facility], [place] [address], [place] [address] Jan, [facility], [place] [address], [place] [address] Jan, [facility], [place] [address], [place] [address] 2405 Dec, [facility], [place] [address], [place] [address] 6[address] Dec, [facility], [place] [id number] [place] [address] 30876- 7491 Dec, [facility], [place] [address], [place] [address] 9557 Dec, [facility], [place] [id number], [place] [address]- 3770 Dec, [facility], [place] [address] [facility] [id number] [address] Dec, [facility], [place] [address] [facility] [id number] [address] 56[address] Dec, [facility], [place] [address] [facility] [id number] [address] 0[address] Dec, [facility], [place] [address] [facility] [id number] [address] 277[address] Dec, [facility], [place] [address] [facility] [id number], [place] [address]- 6586 Dec, [facility], [place] [id number] [address]- 1126 Dec, [facility], [place] [address], [place] [address]- 9637 Dec, [facility], [place] [address], [place] [address]- 3487 Dec, [facility], [place] [address], [place] [address]- 4428 Dec, [facility], [place] [address], [place] [address]- 0143 Dec, [facility], [place] [id number], [place] [address] 7518 Dec, IMMUNIZATIONS No Known Immunizations SOCIAL HISTORY Never Assessed REASON FOR VISIT Enrolled in [facility] PLAN OF CARE VITAL SIGNS MEDICATIONS Medication Instructions Dosage Frequency Start Date End Date Duration Status Lancets - as directed Apr, 90 days Active Test strips as directed to test blood glucose Apr, 90 days Active Blood Glucose Monitor System w/Device as directed 1 dose Active RESULTS No Results PROCEDURES No Known [...]
--- OUTSIDE RECORDS SUMMARY | 2018-11-30 17:50 | XMS REPORT ---
Author Author YONAS BELLE [facility] Address [address] [place] [address] Care Team Providers Care Residential Child Care Counselor Name Role Phone YONAS BELLE Unavailable PROBLEMS Type Condition ICD9-CM Code IZG04-AN Code Onset Dates Condition Status SNOMED Code Problem Type 2 diabetes mellitus with diabetic chronic kidney disease E11.22 Active 52870185 Problem Mixed hyperlipidemia E78.2 Active 932131028 Problem Primary insomnia F51.01 Active 1075034 Problem Major depressive disorder, recurrent, in full remission F33.42 Active 732048875 Problem Lymphedema I89.0 Active 477275165 Problem BMI 50.0-59.9, adult Z68.43 Active 170344348 Problem Constipation, unspecified constipation type K59.00 Active 84671314 Problem Chronic systolic congestive heart failure I50.22 Active 422872537 Problem Stasis dermatitis of both legs I87.2 Active 01962562 Problem Abnormal liver function test R94.5 Active 559074367 Problem Panic disorder F41.0 Active 475502804 Problem Controlled substance agreement terminated Z91.14 Active 397703849 Problem Cardiomegaly I51.7 Active 5155367 Problem Degenerative disc disease at L5-S1 level M51.36 Active 62171787 Problem BPH (benign prostatic hyperplasia) N40.0 Active 301198971 Problem Chronic pain G89.29 Active 72323701 Problem Dysthymic disorder F34.1 Active 86465091 Problem HTN (hypertension) I10 Active 81595201 Problem Mild episode of recurrent major depressive disorder F33.0 Active 101818262 ALLERGIES No Information ENCOUNTERS Encounter Location Date Diagnosis [facility] [address] [id number] [address] Aug, [facility] [address] [id number], [place] [address] May, Degenerative disc disease at L5-S1 level M51.36 ; Chronic pain G89.29 and BMI 40.0-44.9, adult Z68.41 [place] [id number] [place] [address] 46438- 5653 May, [facility] [address] [id number] [place] [address] 66036- 5643 May, Type 2 diabetes mellitus with diabetic chronic kidney disease E11.22 [place] [id number] [place] [address] 74951- 5922 May, [place] [id number] [place] [address] 94787- 4483 May, Degenerative disc disease at L5-S1 level M51.36 [place] [id number] [place] [address] 11671- 5514 May, [place] [id number] [place] [address] 88070- 6251 May, [place] [id number] [place] [address] 42277- 6992 May, [place] [id number] [place] [address] 01728- 5208 Apr, Type 2 diabetes mellitus with diabetic chronic kidney disease E11.22 ; Chronic pain G89.29 ; Major depressive disorder, recurrent, in full remission F33.42 ; HTN (hypertension) I10 ; Chronic systolic congestive heart failure I50.22 ; Mixed hyperlipidemia E78.2 and BMI 45.0-49.9, adult Z68.42 [place] [address] [address] 18 Apr, 2018 Type 2 diabetes mellitus with diabetic chronic kidney disease E11.22 [facility] [address] [address] 29[address] 17 Apr, 2018 Medicare annual wellness visit, [...] vaccine Z28.21 and Encounter for immunization Z23 [address] 16084- 4693 Apr, [place] [address] 91847- 3312 Mar, Type 2 diabetes mellitus with diabetic chronic kidney disease E11.[address] 84220- 1747 Mar, Chronic pain G89.[address] 26600- 5262 February, Chronic pain G89.29 ; Abnormal liver function test R94.5 and Degenerative disc disease at L5-S1 level M51.[address] 44914- 1420 Jan, [place] [id number] [place] [address] 94101- 1628 Jan, [place] [id number] [place] [address] 58101- 1808 Jan, [place] [id number] [place] [address] 29002- 0184 Jan, Abnormal liver function test R94.5 ; Dysthymic disorder F34.1 and Chronic pain G89.29 [place] [id number] [place] [address] 90116- 7932 Dec, [place] [id number] [place] [address] 84991- 5053 Dec, HTN (hypertension) I10 ; BMI 45.0-49.9, adult Z68.42 ; Chronic pain G89.29 ; Primary insomnia F51.01 ; Mixed hyperlipidemia E78.2 ; Dysthymic disorder F34.1 ; Type 2 diabetes mellitus with diabetic chronic kidney disease E11.22 ; Stasis dermatitis of both legs I87.2 and Chronic systolic congestive heart failure I50.22 [facility] [id number] [place] [address] 72870- 7943 12 Dec, 2017 Chronic pain G89.29 [facility] [id number] [place] [address] 84856 -9323 04 Dec, 2017 Lymphedema I89.0 and Chronic systolic congestive heart failure I50.22 [place] [id number] [place] [address] 84043- 4845 Dec, [facility] [id number] [place] [address] 29812- 1991 Nov, Type 2 diabetes mellitus with diabetic chronic kidney disease E11.22 [place] [id number] [place] [address] 18929- 0848 Nov, Chronic pain G89.29 and Dysthymic disorder F34.1 [place] [id number] [place] [address] 52105- 9999 Nov, [facility] [id number] [place] [address] 62498- 1867 Oct, HTN (hypertension) I10 ; Chronic pain G89.29 ; BMI 45.0-49.9 , adult Z68.42 ; Primary insomnia F51.01 ; Mixed hyperlipidemia E78.2 ; Dysthymic disorder F34.1 ; Type 2 diabetes mellitus with diabetic chronic kidney disease E11.22 ; Chronic congestive heart failure, unspecified congestive heart failure type I50.9 ; Acute non-recurrent maxillary sinusitis J01.00 and BMI 50.0-59.9, adult Z68.43 [place] [id number] [place] [address] 92997- 3749 Oct, HTN (hypertension) I10 and Dysthymic disorder F34.1 [place] [address], [place] [address] 3936 Oct, [place] [id number] [place] [address] 79399- 9208 Oct, HTN (hypertension) I10 [place] [id number] [place] [address] 02481- 6075 Oct, Chronic pain G89.29 [place] [id number] [place] [address] 51980- 3516 Sep, [place] [id number] [place] [address] 12158- 1230 Sep, HTN (hypertension) I10 ; Chronic pain G89.29 ; BMI 45.0-49.9 , adult Z68.42 ; Primary insomnia F51.01 ; Mixed hyperlipidemia E78.2 ; Dysthymic disorder F34.1 and Type 2 diabetes mellitus with diabetic chronic kidney disease E11.22 [place] [id number] [place] [address] 92424- 9450 18 Sep, 2017 Chronic pain G89.29 [place] [id number] [place] [address] 74241- 8459 Sep, Acute on chronic heart failure, unspecified heart failure type I50.9 [place] [id number] [place] [address] 51731- 4035 Sep, Acute on chronic heart failure, unspecified heart failure type I50.9 ; Type 2 diabetes mellitus with diabetic chronic kidney disease E11.22 and BMI 50.0-59.9, adult Z68.43 [place] [id number] [place] [address] 39691- 4742 Sep, Acute on chronic heart failure, unspecified heart failure type I50.9 ; HTN (hypertension) I10 and Type 2 diabetes mellitus with diabetic chronic kidney disease E11.22 [place] [id number] [place] [address] 58213- 4634 Aug, Acute on chronic heart failure, unspecified heart failure type I50.9 ; HTN (hypertension) I10 ; Type 2 diabetes mellitus with diabetic chronic kidney disease E11.22 ; Cellulitis of right lower extremity L03.115 and BMI 50.0-59.9, adult Z68.43 [facility] [id number] [place] [address] 16349 -4170 Aug, Acute upper respiratory infection, unspecified J06.9 ; Other viral agents as the cause of diseases classified elsewhere B97.89 ; Constipation, unspecified constipation type K59.00 ; BMI 50.0-59.9, adult Z68.43 and BMI 60.0-69.9, adult Z68.44 [facility] [id number] [place] [address] 28339- 4802 Aug, Chronic pain G89.29 [facility] [id number] [place] [address] 36318- 7430 Jul, Chronic pain G89.29 [facility] [id number] [place] [address] 13810- 3730 Jul, Chronic pain G89.29 [facility] [id number] [place] [address] 22190- 2952 Jun, Chronic pain G89.29 [facility] [id number] [place] [address] 80646- 8324 Jun, [facility] [id number] [place] [address] 66698- 8332 Jun, Chronic pain G89.29 [facility] [id number] [place] [address] 30778- 9774 May, Chronic pain G89.29 and Type 2 diabetes mellitus with diabetic chronic kidney disease E11.22 [facility] [id number] [place] [address] 00608- 6349 May, [facility] [address] 14551- 7687 May, Chronic pain G89.29 and Anxiety F41.9 [place] [id number] [place] [address] 53316- 2593 May, Type 2 diabetes mellitus with diabetic chronic kidney disease E11.22 ; Social phobia F40.10 ; Morbid obesity E66.01 ; Chronic pain G89.29 ; HTN (hypertension) I10 ; Degenerative disc disease at L5-S1 level M51.36 ; BPH (benign prostatic hyperplasia) N40.0 ; Pain in right knee M25.561 and 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 [place] [id number] [place] [address] 48174- 9034 Apr, Anxiety F41.9 [place] [address] 62427- 7287 Apr, [place] [id number] [place] [address] 53149- 9831 Mar, [place] [id number] [place] [address] 48477- 7514 Mar, Edema, unspecified type R60.9 and Anxiety F41.9 [place] [id number] [place] [address] 74040- 6982 Mar, Social phobia F40.10 ; Mixed obsessional thoughts and acts F42.2 and Mild episode of recurrent major depressive disorder F33.0 [place] [id number] [place] [address] 55734- 1903 Mar, Degenerative disc disease at L5-S1 level M51.36 [place] [id number] [place] [address] 93192- 0848 Mar, [place] [address] 79844- 8611 Mar, [place] [id number] [place] [address] 23822- 7168 Mar, [place] [address] 25872- 4719 February, Morbid obesity E66.01 ; Anxiety F41.9 ; Degenerative disc disease at L5-S1 level M51.36 ; BPH (benign prostatic hyperplasia) N40.0 ; Social phobia F40.10 ; HTN (hypertension) I10 ; Edema, unspecified type R60.9 and Screening cholesterol level Z13.220 [place] [id number] [place] [address] 23353- 2457 February, Social phobia, generalized F40.11 [place] [id number] [place] [address] 75157- 6713 February, Chronic pain G89.29 [place] [id number] [place] [address] 91179- 8387 February, [place] [id number] [place] [address] 14682- 5623 Jan, Chronic pain G89.29 [place] [id number] [place] [address] 28586- 4449 Jan, Panic disorder [episodic paroxysmal anxiety] without agoraphobia F41.0 [place] [id number] [place] [address] 13274- 4347 Dec, Morbid obesity E66.01 ; Anxiety F41.9 ; Chronic pain G89.29 ; HTN (hypertension) I10 ; BPH (benign prostatic hyperplasia) N40.0 ; Generalized edema R60.1 and Cough R05 [place] [id number] [place] [address] 77866- 8205 Nov, Chronic pain G89.29 [place] [id number] [place] [address] 61679- 3242 Nov, Social phobia, generalized F40.11 and Mild episode of recurrent major depressive disorder F33.0 [place] [id number] [place] [address] 77317- 6920 Oct, Chronic pain G89.29 [id number] [address]- 6684 Oct, Social phobia, generalized F40.11 [facility] [id number] [place] [address] 90745- 6301 Sep, [facility] [id number] [place] [address] 04659- 4874 Sep, [facility] [id number] [place] [address] 33320- 2654 Sep, [facility] [id number] [place] [address] 02081- 1077 Sep, [facility] [id number] [place] [address] 57431- 5310 Sep, [facility] [id number] [place] [address] 75380- 2480 Sep, Social phobia, generalized F40.11 and Mild episode of recurrent major depressive disorder F33.0 [facility] [id number] [place] [address] 98667- 9556 Sep, [facility] [id number] [place] [address] 21504- 9576 Aug, [facility] [id number] [place] [address] 71650- 0413 Aug, [facility] [id number] [place] [address] 71435- 4499 17 Aug, 2016 Bronchitis J40 [facility] [id number] [place] [address] 83126- 3449 15 Aug, 2016 [facility] [id number] [place] [address] 17137- 5929 10 Aug, 2016 Osteoarthritis of knee, unspecified M17.9 [facility] [address], [place] [address]- 4883 09 Aug, 2016 Morbid obesity E66.01 ; Chronic pain G89.29 ; Anxiety F41.9 ; Social phobia F40.10 ; HTN (hypertension) I10 ; Social phobia, generalized F40.11 ; Acute upper respiratory infection, unspecified J06.9 and Other viral agents as the cause of diseases classified elsewhere B97.89 [facility] [id number] [place] [address] 60639- 0899 Aug, Social phobia, generalized F40.11 and Dysthymic disorder F34.1 [facility] [id number] [place] [address] 64480- 7675 Jul, [facility] [id number] [place] [address] 80027- 1088 Jun, [facility] [id number] [place] [address] 59885- 0370 May, [facility] [id number] [place] [address] 45053- 8951 May, [facility] [id number] [place] [address] 24582- 1881 May, [facility] [id number] [place] [address] 93836- 2857 May, [facility] [id number] [place] [address] 04842- 0067 May, [facility] [id number] [place] [address] 51330- 5170 May, [facility] [id number] [place] [address] 99745- 3919 May, [facility] [id number] [place] [address] 79134- 0948 Apr, [facility] [id number] [place] [address] 17815- 1117 Apr, Chondromalacia, right knee M94.261 [facility] [id number] [place] [address] 53111- 4396 Apr, Pain in unspecified hip M25.559 [facility] [id number] [place] [address] 46740- 2072 08 Mar, 2016 Social phobia, unspecified F40.10 and Pain in unspecified hip M25.559 [facility] [id number] [place] [address] 21249- 1427 February, [facility] [address] 92895- 0905 February, Social phobia F40.10 [place] [id number] [place] [address] 56445- 6843 February, Morbid obesity E66.01 ; Chronic pain G89.29 ; Social phobia F40.10 ; Pelvic pain in male R10.2 ; HTN (hypertension) I10 ; Degenerative disc disease at L5-S1 level M51.36 ; BPH (benign prostatic hyperplasia) N40.0 and Pain in right knee M25.561 [place] [id number] [place] [address] 54969- 2834 14 Jan, 2016 [place] [address] 45114- 6016 13 Jan, 2016 [place] [id number] [place] [address] 48327- 4883 Jan, [facility] [id number] [place] [address] 84185- 3345 17 Dec, 2015 [place] [id number] [place] [address] 47190- 1064 Dec, [facility] [id number] [place] [address] 82937- 2221 Dec, [facility] [id number] [place] [address] 61487 -6886 Nov, Strep pharyngitis J02.0 ; Influenza A J10.1 and Cough R05 [facility] [address] 32758- 1475 Nov, [facility] [id number] [place] [address] 21123- 4062 Nov, [facility] [id number] [place] [address] 56434- 9027 Oct, HTN (hypertension) I10 ; Morbid obesity E66.01 ; Anxiety F41.9 ; Social phobia F40.10 ; Panic disorder F41.0 ; Degenerative disc disease at L5-S1 level M51.36 and Hypercholesterolemia E78.0 [facility] [id number] [place] [address] 04282- 0192 Oct, Panic disorder [episodic paroxysmal anxiety] without agoraphobia F41.0 and Social phobia, generalized F40.11 [facility] [id number] [place] [address] 22699- 7165 Oct, [facility] [id number] [place] [address] 62356- 2846 Sep, [facility] [id number] [place] [address] 46404- 6414 Sep, [facility] [id number] [place] [address] 88664- 0139 Sep, [facility] [id number] [place] [address] 38816- 8470 Sep, [facility] [id number] [place] [address] 68713- 1896 Aug, [facility] [id number] [place] [address] 27854- 7741 Aug, [facility] [id number] [place] [address] 02725- 6802 Aug, [facility] [id number] [place] [address] 70213- 1937 Aug, Social phobia F40.10 and Panic disorder F41.0 [facility] [id number] [place] [address]- 3637 Aug, [facility] [id number] [place] [address] 01654- 9796 Aug, [facility] [id number] [place] [address] 38323- 7700 Aug, [facility] [id number] [place] [address] 54854- 1302 Aug, [facility] [id number] [place] [address] 88222- 8773 Jul, [facility] [id number] [place] [address] 31525- 6726 Jul, Morbid obesity E66.01 ; Chronic pain G89.29 ; Anxiety F41.9 ; Social phobia F40.10 ; Panic disorder F41.0 ; Pelvic pain in male R10.2 ; Insomnia G47.00 and HTN (hypertension) I10 [facility] [id number] [place] [address] 81322- 4869 Jul, [facility] [id number] [place] [address] 64122- 0988 Jul, [facility] [id number] [place] [address] 98404- 6261 Jun, Degenerative disc disease 722.6 [facility] [id number] [place] [address] 55035- 9115 Jun, Pain in joint, pelvic region and thigh 719.45 ; Morbid obesity 278.01 ; Essential hypertension, benign 401.1 and Constipation 564.00 [facility] [id number] [place] [address] 27320- 8046 May, [facility] [id number] [place] [address] 07729- 8134 May, [facility] [id number] [place] [address] 44431- 8501 May, [facility] [address] [address]- 9235 May, [facility] [id number] [place] [address] 78208- 6455 May, [facility] [id number] [place] [address] 87072- 9752 May, [facility] [id number] [place] [address] 90944- 8860 May, Essential hypertension, benign 401.1 ; Anxiety state, unspecified 300.00 ; Panic disorder without agoraphobia 300.01 ; Social phobia 300.23 ; Morbid obesity 278.01 ; Other chronic pain 338.29 and Insomnia 780.52 [facility] [id number] [place] [address] 92028- 4277 May, Essential hypertension 401.9 [facility] [id number] [place] [address] 01764- 9610 May, Pain in joint, pelvic region and thigh 719.45 [facility] [id number] [place] [address] 97705- 4224 May, Essential hypertension, benign 401.1 [facility] [id number] [place] [address] 42073- 7480 May, Panic disorder without agoraphobia 300.01 and Social phobia 300.23 [facility] [id number] [place] [address] 85658- 4303 May, [facility] [id number] [place] [address] 90721- 8995 May, [facility] [id number] [place] [address] 23441- 8335 Apr, Chronic pain 338.29 [facility] [id number] [place] [address] 37715- 8999 Apr, [facility] [id number] [place] [address] 78687- 5756 Apr, [facility] [id number], [place] [address] 94[address] Apr, [facility] [id number], [place] [address] 9383 Apr, 2014 [facility] [id number], [place] [address] 9171 Apr, [facility] [id number] [place] [address] 56142- 4901 Apr, [facility] [id number] [place] [address] 37981- 9583 Apr, [facility] [id number], [place] [address] 7105 Apr, Essential hypertension, benign 401.1 ; Morbid obesity 278.01 ; Anxiety state, unspecified 300.00 ; Panic disorder without agoraphobia 300.01 ; Social phobia 300.23 and Chronic pain 338.29 [facility] [id number] [address] Mar, [facility] [id number] [address] Mar, [facility] [id number], [place] [address] Mar, [facility] [id number], [place] [address] Mar, [facility] [id number], [place] [address] Mar, Social phobia 300.23 and Panic disorder without agoraphobia 300.01 [facility] [id number], [place] [address] Mar, [facility] [id number], [place] [address] February, [facility] [id number] [address] February, Major depression, recurrent 296.30 and No condition on [place] II V71.09 [facility] [id number] [place] [address]- [address] February, [facility] [id number] [place] [address]- [address] February, Panic disorder without agoraphobia 300.01 ; Social phobia 300.23 and Morbid obesity 278.01 [facility] [id number] [place] [address]- [address] Jan, [facility] [id number] [place] [address]- 3917 Jan, [facility] [id number] [place] [address]- 5293 Dec, [facility] [id number] [place] [address]- 7471 Dec, [facility] [id number], [place] [address] Dec, [facility] [id number] [place] [address]- 5819 Dec, [facility] [id number], [place] [address] Dec, [facility] [id number], [place] [address] Dec, [facility] [id number], [place] [address] Dec, [facility] [id number] [place] [address]- 4563 Dec, [facility] [id number], [place] [address] Dec, [facility] [id number] [place] [address]- [address]858 Dec, [facility] [address] [facility] [id number], [place] [address] Dec, [facility] [address] [facility] [id number], [place] [address] Dec, [facility] [address] [facility] [id number], [place] [address] Dec, [facility] [address] [facility] [id number], [place] [address] Dec, [facility] [address] [facility] [id number], [place] [address] Dec, [facility] [address] [facility] [id number], [place] [address] Dec, IMMUNIZATIONS No Known Immunizations SOCIAL HISTORY Never Assessed REASON FOR VISIT Repository Medication PLAN OF CARE VITAL SIGNS MEDICATIONS Unknown [...]
--- OUTSIDE RECORDS SUMMARY | 2018-11-30 17:51 | XMS REPORT ---
Author Author ONI APPIAH Organization [facility] Address [address] 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 Name Role Phone ONI APPIAH Unavailable PROBLEMS Type Condition ICD9-CM Code [id number] Code Onset Dates Condition Status SNOMED Code Problem Type 2 diabetes mellitus with diabetic chronic kidney disease E11.22 Active 32545317 Problem Mixed hyperlipidemia E78.2 Active 451819677 Problem Primary insomnia F51.01 Active 6583710 Problem Major depressive disorder, recurrent, in full remission F33.42 Active 169681422 Problem Lymphedema I89.0 Active 605303236 Problem BMI 50.0-59.9, adult Z68.43 Active 721621049 Problem Constipation, unspecified constipation type K59.00 Active 78592775 Problem Chronic systolic congestive heart failure I50.22 Active 347732378 Problem Stasis dermatitis of both legs I87.2 Active 02054147 Problem Abnormal liver function test R94.5 Active 046307495 Problem Panic disorder F41.0 Active 551897153 Problem Controlled substance agreement terminated Z91.14 Active 985245679 Problem Cardiomegaly I51.7 Active 2828311 Problem Degenerative disc disease at L5-S1 level M51.36 Active 42533511 Problem BPH (benign prostatic hyperplasia) N40.0 Active 419080398 Problem Chronic pain G89.29 Active 84617504 Problem Dysthymic disorder F34.1 Active 14108275 Problem HTN (hypertension) I10 Active 91563222 Problem Mild episode of recurrent major depressive disorder F33.0 Active 278177728 ALLERGIES Substance Reaction Event Type Date Status Wellbutrin Unknown Non Drug Allergy Mar, Active ENCOUNTERS Encounter Location Date Diagnosis [facility] [address] [id number] [address] Aug, [facility] [address] [id number], [place] [address] May, Degenerative disc disease at L5-S1 level M51.36 ; Chronic pain G89.29 and BMI 40.0-44.9, adult Z68.41 [facility] [id number] [place] [address] 33237- 2138 May, [facility] [id number] [place] [address] 09610- 6648 May, Type 2 diabetes mellitus with diabetic chronic kidney disease E11.22 [facility] [id number] [place] [address] 56506- 8649 May, [facility] [id number] [place] [address] 48503- 9147 May, Degenerative disc disease at L5-S1 level M51.36 [facility] [id number] [place] [address] 12181- 8325 May, [facility] [id number] [place] [address] 83778- 2963 May, [facility] [id number] [place] [address] 83269- 9625 May, [facility] [id number] [place] [address] 02755- 5012 Apr, Type 2 diabetes mellitus with diabetic chronic kidney disease E11.22 ; Chronic pain G89.29 ; Major depressive disorder, recurrent, in full remission F33.42 ; HTN (hypertension) I10 ; Chronic systolic congestive heart failure I50.22 ; Mixed hyperlipidemia E78.2 and BMI 45.0-49.9, adult Z68.42 [facility] [address] [address] Apr, Type 2 diabetes mellitus with diabetic chronic kidney disease E11.22 [facility] [id number] [place] [address] 10077- 2921 Apr, Medicare annual wellness visit, initial Z00.00 [...] vaccine Z28.21 and Encounter for immunization Z23 [place] [address] 11794- 2686 Apr, [address] 70695- 7864 Mar, Type 2 diabetes mellitus with diabetic chronic kidney disease E11.[address] 45579- 5879 Mar, Chronic pain G89.[address] 85006- 9498 February, Chronic pain G89.29 ; Abnormal liver function test R94.5 and Degenerative disc disease at L5-S1 level M51.36 [place] [address] 42832- 4017 Jan, [facility] [id number] [place] [address] 34102- 7515 Jan, [facility] [address] 33532- 6431 Jan, [facility] [id number] [place] [address] 02434- 9901 Jan, Abnormal liver function test R94.5 ; Dysthymic disorder F34.1 and Chronic pain G89.29 [facility] [id number] [place] [address] 05489- 5664 Dec, [facility] [address] 28437- 5803 Dec, HTN (hypertension) I10 ; BMI 45.0-49.9, adult Z68.42 ; Chronic pain G89.29 ; Primary insomnia F51.01 ; Mixed hyperlipidemia E78.2 ; Dysthymic disorder F34.1 ; Type 2 diabetes mellitus with diabetic chronic kidney disease E11.22 ; Stasis dermatitis of both legs I87.2 and Chronic systolic congestive heart failure I50.22 [facility] [id number] [place] [address] 95814- 6031 Dec, Chronic pain G89.29 [facility] [address] 93462 -3841 04 Dec, 2017 Lymphedema I89.0 and Chronic systolic congestive heart failure I50.22 [facility] [id number] [place] [address] 96563- 6040 Dec, [facility] [address] 49825- 3299 Nov, Type 2 diabetes mellitus with diabetic chronic kidney disease E11.22 [facility] [address] 85429- 6562 Nov, Chronic pain G89.29 and Dysthymic disorder F34.1 [facility] [id number] [place] [address] 17326- 4104 Nov, [facility] [id number] [place] [address] 69952- 4154 Oct, HTN (hypertension) I10 ; Chronic pain G89.29 ; BMI 45.0-49.9 , adult Z68.42 ; Primary insomnia F51.01 ; Mixed hyperlipidemia E78.2 ; Dysthymic disorder F34.1 ; Type 2 diabetes mellitus with diabetic chronic kidney disease E11.22 ; Chronic congestive heart failure, unspecified congestive heart failure type I50.9 ; Acute non-recurrent maxillary sinusitis J01.00 and BMI 50.0-59.9, adult Z68.43 [facility] [id number] [place] [address] 77471- 2822 Oct, HTN (hypertension) I10 and Dysthymic disorder F34.1 [facility] [address] [address] Oct, [facility] [id number] [place] [address] 77278- 0530 Oct, HTN (hypertension) I10 [facility] [place] [id number] [place] [address] 91308- 0731 Oct, Chronic pain G89.29 [facility] [id number] [place] [address] 16380- 5765 Sep, [facility] [id number] [place] [address] 31206- 2414 Sep, HTN (hypertension) I10 ; Chronic pain G89.29 ; BMI 45.0-49.9 , adult Z68.42 ; Primary insomnia F51.01 ; Mixed hyperlipidemia E78.2 ; Dysthymic disorder F34.1 and Type 2 diabetes mellitus with diabetic chronic kidney disease E11.22 [facility] [place] [id number] [place] [address] 50884- 1481 18 Sep, 2017 Chronic pain G89.29 [facility] [place] [id number] [place] [address] 68583- 9649 Sep, Acute on chronic heart failure, unspecified heart failure type I50.9 [facility] [place] [id number] [place] [address] 83007- 9427 Sep, Acute on chronic heart failure, unspecified heart failure type I50.9 ; Type 2 diabetes mellitus with diabetic chronic kidney disease E11.22 and BMI 50.0-59.9, adult Z68.43 [facility] [id number] [place] [address] 12457- 0869 Sep, Acute on chronic heart failure, unspecified heart failure type I50.9 ; HTN (hypertension) I10 and Type 2 diabetes mellitus with diabetic chronic kidney disease E11.22 [facility] [id number] [place] [address] 28863- 4699 Aug, Acute on chronic heart failure, unspecified heart failure type I50.9 ; HTN (hypertension) I10 ; Type 2 diabetes mellitus with diabetic chronic kidney disease E11.22 ; Cellulitis of right lower extremity L03.115 and BMI 50.0-59.9, adult Z68.43 [facility] [id number] [place] [address] 03763 -0252 Aug, Acute upper respiratory infection, unspecified J06.9 ; Other viral agents as the cause of diseases classified elsewhere B97.89 ; Constipation, unspecified constipation type K59.00 ; BMI 50.0-59.9, adult Z68.43 and BMI 60.0-69.9, adult Z68.44 [facility] [id number] [place] [address] 78546- 0481 Aug, Chronic pain G89.29 [facility] [id number] [place] [address] 81946- 7230 Jul, Chronic pain G89.29 [facility] [id number] [place] [address] 20817- 1621 Jul, Chronic pain G89.29 [facility] [id number] [place] [address] 77647- 6417 Jun, Chronic pain G89.29 [facility] [id number] [place] [address] 33054- 9935 Jun, [facility] [id number] [place] [address] 68371- 0158 06 Jun, 2017 Chronic pain G89.29 [facility] [id number] [place] [address] 49149- 4707 May, Chronic pain G89.29 and Type 2 diabetes mellitus with diabetic chronic kidney disease E11.22 [facility] [id number] [place] [address] 32924- 2397 May, [facility] [id number] [place] [address] 56891- 2470 May, Chronic pain G89.29 and Anxiety F41.9 [facility] [place] [id number] [place] [address] 69447- 6286 May, Type 2 diabetes mellitus with diabetic chronic kidney disease E11.22 ; Social phobia F40.10 ; Morbid obesity E66.01 ; Chronic pain G89.29 ; HTN (hypertension) I10 ; Degenerative disc disease at L5-S1 level M51.36 ; BPH (benign prostatic hyperplasia) N40.0 ; Pain in right knee M25.561 and 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 [facility] [place] [id number] [place] [address] 21191- 0675 Apr, Anxiety F41.9 [facility] [id number] [place] [address] 22189- 4591 Apr, [facility] [place] [id number] [place] [address] 95710- 7640 Mar, [facility] [id number] [place] [address] 06169- 2961 Mar, Edema, unspecified type R60.9 and Anxiety F41.9 [facility] [place] [id number] [place] [address] 13016- 8258 Mar, Social phobia F40.10 ; Mixed obsessional thoughts and acts F42.2 and Mild episode of recurrent major depressive disorder F33.0 [facility] [id number] [place] [address] 21301- 4225 Mar, Degenerative disc disease at L5-S1 level M51.36 [facility] [place] [id number] [place] [address] 53233- 1116 Mar, [facility] [place] [id number] [place] [address] 30360- 0177 Mar, [facility] [place] [id number] [place] [address] 20696- 6727 Mar, [facility] [place] [id number] [place] [address] 38805- 5348 February, Morbid obesity E66.01 ; Anxiety F41.9 ; Degenerative disc disease at L5-S1 level M51.36 ; BPH (benign prostatic hyperplasia) N40.0 ; Social phobia F40.10 ; HTN (hypertension) I10 ; Edema, unspecified type R60.9 and Screening cholesterol level Z13.[address] 39606- 9562 February, Social phobia, generalized F40.[address] 33872- 2509 February, Chronic pain G89.[address] 44981- 6152 February, [address] 75648- 1963 Jan, Chronic pain G89.[address] 68446- 2509 Jan, Panic disorder [episodic paroxysmal anxiety] without agoraphobia F41.[address] 96002- 9456 Dec, Morbid obesity E66.01 ; Anxiety F41.9 ; Chronic pain G89.29 ; HTN (hypertension) I10 ; BPH (benign prostatic hyperplasia) N40.0 ; Generalized edema R60.1 and Cough R05 [address] [id number] [place] [address] 15767- 8864 Nov, Chronic pain G89.[address] 38879- 6703 Nov, Social phobia, generalized F40.11 and Mild episode of recurrent major depressive disorder F33.[address] 86609- 0039 Oct, Chronic pain G89.29 [facility] [address] [address]- 6265 Oct, Social phobia, generalized F40.11 [facility] [id number] [place] [address] 13305- 5263 Sep, [facility] [id number] [place] [address] 31443- 5509 Sep, [facility] [id number] [place] [address] 04899- 2531 Sep, [facility] [id number] [place] [address] 01231- 5257 Sep, [facility] [id number] [place] [address] 21150- 7540 Sep, [facility] [id number] [place] [address] 58656- 6900 Sep, Social phobia, generalized F40.11 and Mild episode of recurrent major depressive disorder F33.0 [facility] [id number] [place] [address] 69135- 0837 Sep, [facility] [id number] [place] [address] 58768- 2958 Aug, [facility] [id number] [place] [address] 38587- 4473 Aug, [facility] [id number] [place] [address] 70293- 2661 Aug, Bronchitis J40 [facility] [id number] [place] [address] 47339- 7865 15 Aug, 2016 [facility] [id number] [place] [address] 00113- 8776 10 Aug, 2016 Osteoarthritis of knee, unspecified M17.9 [facility] [address] [address]- 8531 09 Aug, 2016 Morbid obesity E66.01 ; Chronic pain G89.29 ; Anxiety F41.9 ; Social phobia F40.10 ; HTN (hypertension) I10 ; Social phobia, generalized F40.11 ; Acute upper respiratory infection, unspecified J06.9 and Other viral agents as the cause of diseases classified elsewhere B97.89 [facility] [id number] [place] [address] 59797- 5344 Aug, Social phobia, generalized F40.11 and Dysthymic disorder F34.1 [facility] [id number] [place] [address] 53457- 5719 Jul, [facility] [id number] [place] [address] 04084- 4744 Jun, [facility] [id number] [place] [address] 61848- 2799 May, [facility] [id number] [place] [address] 91186- 2443 May, [facility] [id number] [place] [address] 39778- 3307 May, [facility] [id number] [place] [address] 93485- 3123 May, [facility] [id number] [place] [address] 15315- 7672 May, [facility] [id number] [place] [address] 67752- 8673 May, [facility] [id number] [place] [address] 47687- 2548 May, [facility] [id number] [place] [address] 07914- 7882 Apr, [facility] [id number] [place] [address] 12909- 3867 Apr, Chondromalacia, right knee M94.261 [facility] [id number] [place] [address] 08390- 9590 Apr, Pain in unspecified hip M25.559 [facility] [id number] [place] [address] 63768- 0663 Mar, Social phobia, unspecified F40.10 and Pain in unspecified hip M25.559 [facility] [id number] [place] [address] 32363- 9316 February, [facility] [id number] [place] [address] 89102- 0973 February, Social phobia F40.10 [facility] [id number] [place] [address] 25283- 2119 February, Morbid obesity E66.01 ; Chronic pain G89.29 ; Social phobia F40.10 ; Pelvic pain in male R10.2 ; HTN (hypertension) I10 ; Degenerative disc disease at L5-S1 level M51.36 ; BPH (benign prostatic hyperplasia) N40.0 and Pain in right knee M25.561 [facility] [id number] [place] [address] 93182- 5928 14 Jan, 2016 [facility] [place] [id number] [place] [address] 72453- 2103 Jan, [place] [id number] [place] [address] 23676- 9357 Jan, [facility] [id number] [place] [address] 41713- 1045 Dec, [facility] [id number] [place] [address] 71987- 1110 Dec, [facility] [id number] [place] [address] 29480- 1538 Dec, [facility] [id number] [place] [address] 44949 -1614 Nov, Strep pharyngitis J02.0 ; Influenza A J10.1 and Cough R05 [place] [id number] [place] [address] 63576- 1557 Nov, [facility] [id number] [place] [address] 38257- 5647 Nov, [facility] [id number] [place] [address] 22556- 4053 Oct, HTN (hypertension) I10 ; Morbid obesity E66.01 ; Anxiety F41.9 ; Social phobia F40.10 ; Panic disorder F41.0 ; Degenerative disc disease at L5-S1 level M51.36 and Hypercholesterolemia E78.0 [facility] [id number] [place] [address] 84566- 5601 Oct, Panic disorder [episodic paroxysmal anxiety] without agoraphobia F41.0 and Social phobia, generalized F40.11 [facility] [id number] [place] [address] 35083- 7156 Oct, [facility] [id number] [place] [address] 50602- 9943 Sep, [facility] [id number] [place] [address] 42600- 5727 Sep, [facility] [id number] [place] [address] 03786- 9656 Sep, [facility] [id number] [place] [address] 66371- 1254 Sep, [facility] [id number] [place] [address] 74983- 9164 Aug, [facility] [id number] [place] [address] 89717- 8056 Aug, [facility] [id number] [place] [address] 27265- 5631 Aug, [facility] [id number] [place] [address] 77844- 1847 Aug, Social phobia F40.10 and Panic disorder F41.0 [facility] [id number] [place] [address] 05460- 3436 Aug, [facility] [address] 65186- 8518 Aug, [facility] [address] 03475- 6604 Aug, [facility] [address] 57137- 6120 Aug, [facility] [address] 91417- 8713 Jul, [facility] [address] 32236- 1003 Jul, Morbid obesity E66.01 ; Chronic pain G89.29 ; Anxiety F41.9 ; Social phobia F40.10 ; Panic disorder F41.0 ; Pelvic pain in male R10.2 ; Insomnia G47.00 and HTN (hypertension) I10 [facility] [id number] [place] [address] 10988- 5972 Jul, [facility] [address] 52284- 6726 Jul, [facility] [id number] [place] [address] 64443- 0415 16 Jun, 2015 Degenerative disc disease 722.6 [facility] [id number] [place] [address] 38435- 7508 Jun, Pain in joint, pelvic region and thigh 719.45 ; Morbid obesity 278.01 ; Essential hypertension, benign 401.1 and Constipation 564.00 [facility] [id number] [place] [address] 04999- 8355 May, [facility] [address] 12808- 3562 May, [facility] [address] 72198- 4294 May, [facility] [id number] [place] [address] 96471- 6972 May, [facility] [id number] [place] [address] 35974- 4706 May, [facility] [id number] [place] [address] 50559- 0179 May, [facility] [id number] [place] [address] 47921- 6304 May, Essential hypertension, benign 401.1 ; Anxiety state, unspecified 300.00 ; Panic disorder without agoraphobia 300.01 ; Social phobia 300.23 ; Morbid obesity 278.01 ; Other chronic pain 338.29 and Insomnia 780.52 [facility] [id number] [place] [address] 83848- 3264 May, Essential hypertension 401.9 [facility] [id number] [place] [address] 97747- 8918 May, Pain in joint, pelvic region and thigh 719.45 [facility] [id number] [place] [address] 72759- 2702 May, Essential hypertension, benign 401.1 [facility] [id number] [place] [address] 11392- 3439 May, Panic disorder without agoraphobia 300.01 and Social phobia 300.23 [facility] [id number] [place] [address] 98630- 8936 May, [facility] [id number] [place] [address] 79023- 2259 May, [facility] [id number] [place] [address] [id number]- 1031 Apr, Chronic pain 338.29 [facility] [id number] [place] [address] [id number]- 7252 Apr, [facility] [id number] [address] Apr, [facility] [id number] [address] Apr, [facility] [id number], [place] [address] Apr, [facility] [id number] [place] [address] 99577- 7041 Apr, 2014 [facility] [id number] [place] [address] [id number]- 0392 Apr, [facility] [id number] [place] [address] 53246- 2326 Apr, [facility] [id number], [place] [address] Apr, Essential hypertension, benign 401.1 ; Morbid obesity 278.01 ; Anxiety state, unspecified 300.00 ; Panic disorder without agoraphobia 300.01 ; Social phobia 300.23 and Chronic pain 338.29 [facility] [id number] [address] Mar, [facility] [id number] [address] Mar, [facility] [id number] [address] 8738 Mar, [facility] [id number] [address] Mar, [facility] [id number], [place] [address] Mar, Social phobia 300.23 and Panic disorder without agoraphobia 300.01 [facility] [id number], [place] [address] Mar, [facility] [id number], [place] [address] February, [facility] [id number], [place] [address] February, Major depression, recurrent 296.30 and No condition on Sylvester II V71.09 [facility] [id number], [place] [address] February, [facility] [id number] [address] February, Panic disorder without agoraphobia 300.01 ; Social phobia 300.23 and Morbid obesity 278.01 [facility] [id number], [place] [address] Jan, [facility] [id number], [place] [address] Jan, [facility] [id number], [place] [address] Dec, [facility] [id number], [place] [address] Dec, [facility] [id number], [place] [address] Dec, [facility] [id number], [place] [address] Dec, [facility] [id number], [place] [address] Dec, [facility] [id number], [place] [address] Dec, [facility] [id number], [place] [address] Dec, [facility] [id number], [place] [address] Dec, [facility] [id number], [place] [address] Dec, [facility] [id number], [place] [address] Dec, [facility] [address] [id number] [address] Dec, [facility] [id number], [place] [address] Dec, [facility] [address] [id number] [address] Dec, [facility] [id number], [place] [address] Dec, [facility] [id number], [place] [address] Dec, [facility] [id number], [place] [address] Dec, IMMUNIZATIONS No Known Immunizations SOCIAL HISTORY Never Assessed REASON FOR VISIT Pain Management -Megan IVERSON PLAN OF CARE Activity Details Follow Up with PCP / can follow up with me if PCP or pt request Reason: VITAL SIGNS Height 73 in 2018-04-05 Weight 340.7 lbs 2018-04-05 Temperature 97.7 degrees Fahrenheit 2018-04-05 Heart Rate 92 bpm 2018-04-05 Respiratory Rate 18 2018-04-05 BMI 44.95 kg/m2 2018-04-05 Blood pressure systolic 118 mmHg 2018-04-05 Blood pressure diastolic 72 mmHg 2018-04-05 MEDICATIONS Medication Instructions Dosage Frequency Start Date End Date Duration Status Pen Daphne 31G X 8 MM as directed Jan, Active Spironolactone 25 MG Orally Once a day 1 tablet 24h 30 Active Metoprolol Succinate ER 100 MG TAKE ONE TABLET BY MOUTH ONCE DAILY Active Gabapentin 300 MG Orally Once a day at hs x 7 days then 1 bid 1 capsule February, 28 days Active Lasix 80 MG Orally Once a day 2 tablets 24h Active Potassium Chloride Kristen ER 20 MEQ TAKE TWO (2) TABLETS BY MOUTH ONCE DAILY 30 Active Levemir FlexTouch 100 UNIT/ML Subcutaneous Once a day Inject 10 units 24h Active Blood Glucose Test - as directed Active Pravastatin Sodium 10 MG TAKE ONE TABLET BY MOUTH ONCE DAILY 30 Active Blood Glucose Monitor System w/Device as directed Active Lisinopril 20 MG Orally Once a day 1 tablet 24h Active RESULTS No Results PROCEDURES Procedure Date Ordered Result Body Site [facility] VISIT ESTABLISHED PATIENT April 05, 2018 INSTRUCTIONS MEDICATIONS ADMINISTERED No Known [...]
--- NOTE | 2018-11-30 17:52 | Diagnostic Imaging Report ---
EXAMINATION: PA and lateral Chest at 5:27 p.m. INDICATION: Cough. FINDINGS: The heart size is within normal limits, and the heart does seem less prominent than noted on the prior exam of 02/23/2018. The left-sided pacemaker seen previously is again evident and no different. The lungs are generally clear. There is no evidence for failure, pneumonia, or for a pleural effusion. The mediastinum is not widened. The osseous structures are intact. IMPRESSION: There is no evidence for active disease. Dictated by: Dictated on workstation # [id number]
--- OUTSIDE RECORDS SUMMARY | 2018-11-30 17:53 | XMS REPORT | Continuity of Care Document ---
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 Problems Date Dx Coded Attending Type Code Diagnosis Diagnosed By 09/22/1446 FRANCIA MCLEAN, ONI Levine Ot G89.29 OTHER CHRONIC PAIN 03/12/2012 Ot 562.11 DIVERTICULITIS COLON (W/O MENT OF HEMORR 03/12/2012 Ot 789.00 ABDOMINAL PAIN, UNSPECIFIED SITE 2012 Ot 289.3 LYMPHADENITIS NOS 2012 Ot 380.10 INFEC OTITIS EXTERNA NOS 2012 Ot 388.70 OTALGIA NOS 11/14/2013 JIMMY ESPINOZA DO Ot 785.1 PALPITATIONS 02/13/2014 JIMMY ESPINOZA DO Ot 785.1 PALPITATIONS 12/24/2014 MALKA PERDOMO CODY R 278.01 MORBID [...] R 338.29 OTHER CHRONIC PAIN 12/24/2014 MALKA HR ANALYST, CODY R 401.1 HYPERTENSION, BENIGN ESSENTIAL 12/24/2014 MALKA HR ANALYST, CODY R 719.45 PAIN IN JOINT INVOLVING PELVIC REGION AND THIGH 01/15/2015 MALKA HR ANALYST, CODY R 300.00 AN ANXIETY UNSPEC 01/15/2015 MALKA HR ANALYST, CODY R 300.01 AN PANIC DIS W/O AGORA 01/15/2015 MALKA HR ANALYST, CODY R 300.23 AN SOCIAL PHOBIA 01/15/2015 MALKA MALLORYN, CODY R 300.00 AN ANXIETY UNSPEC 01/15/2015 MALKA HR ANALYST, CODY R 300.01 AN PANIC DIS W/O AGORA 01/15/2015 MALKA HR ANALYST, CODY R 300.23 AN SOCIAL PHOBIA 01/15/2015 MALKA MALLORYN, CODY R 300.00 AN ANXIETY UNSPEC 01/15/2015 MALKA MALLORYN, CODY R 300.01 AN PANIC DIS W/O AGORA 01/15/2015 MALKA PERDOMO, CODY R 300.23 AN SOCIAL PHOBIA 2016 Ot 721.3 LUMBOSACRAL SPONDYLOSIS 2016 Ot 729.5 PAIN IN LIMB 2016 Ot 785.1 PALPITATIONS 2016 PEPITO MCLEAN, JP Diaz Ot G89.4 CHRONIC PAIN SYNDROME 2016 PEPITO MCLEAN, JP Diaz Ot M16.12 UNILATERAL PRIMARY OSTEOARTHRITIS, LEFT 05/26/2016 JP BEYER MD Ot G89.4 CHRONIC PAIN SYNDROME 05/26/2016 PEPITO MCLEAN, JP Diaz Ot M16.12 UNILATERAL PRIMARY OSTEOARTHRITIS, LEFT 09/20/2017 Ot 721.3 LUMBOSACRAL SPONDYLOSIS 09/20/2017 Ot 729.5 PAIN IN LIMB 09/20/2017 Ot 785.1 PALPITATIONS 09/20/2017 BERNABE MCLEAN, OBIE Gavin Ot F41.9 ANXIETY DISORDER, UNSPECIFIED 09/20/2017 OBIE [...] FAILUR 10/11/2017 JEANMARIE GUTIERREZ MD Ot Z79.84 JAIL (CURRENT) USE OF ORAL HYPOGLYC 10/11/2017 JEANMARIE [...] FAILUR 10/11/2017 JEANMARIE GUTIERREZ MD Ot Z79.84 JAIL (CURRENT) USE OF ORAL HYPOGLYC 10/11/2017 JEANMARIE [...] 11/10/2017 Curtis PATINO MD Ot Z79.899 OTHER JAIL (CURRENT) DRUG THERAPY 11/14/2017 Curtis PATINO MD [...] (BMI) 50-59.9 , ADULT 11/14/2017 Curtis PATINO MD Ot Z79.899 OTHER ANALYSIS REPORTING DEVELOPER (CURRENT) DRUG THERAPY 11/15/2017 Curtis PATINO MD Ot E11.9 TYPE 2 DIABETES MELLITUS WITHOUT COMPLIC 11/15/2017 Curtis PATINO MD Ot E66.01 MORBID (SEVERE) OBESITY DUE TO EXCESS CA 11/15/2017 Curtis PATINO MD Ot E78.5 HYPERLIPIDEMIA, UNSPECIFIED 11/15/2017 Curtis PATINO MD Ot F17.220 NICOTINE DEPENDENCE, CHEWING TOBACCO, UN 11/15/2017 Curtis PATINO MD Ot F32.9 MAJOR DEPRESSIVE DISORDER, SINGLE EPISOD 11/15/2017 Curtis PATINO MD Ot F41.9 ANXIETY DISORDER, UNSPECIFIED 11/15/2017 Curtis PATINO MD Ot I11.0 HYPERTENSIVE HEART DISEASE WITH HEART FA 11/15/2017 Curtis PATINO MD Ot I42.9 CARDIOMYOPATHY, UNSPECIFIED 11/15/2017 Curtis PATINO MD Ot I50.23 ACUTE ON CHRONIC SYSTOLIC (CONGESTIVE) H 11/15/2017 Curtis PATINO MD, Ot Z68.43 BODY MASS INDEX (BMI) 50-59.9 , ADULT 11/15/2017 Curtis PATINO MD Ot Z79.899 OTHER JAIL (CURRENT) DRUG THERAPY 12/02/2017 Curtis PATINO MD Ot G47.33 OBSTRUCTIVE SLEEP APNEA (ADULT) (PEDIATR 01/04/2018 Curtis PATINO MD, Ot G47.33 OBSTRUCTIVE SLEEP APNEA (ADULT) (PEDIATR 01/18/2018 NAVDEEP BOYER APRN Ot E11.622 TYPE 2 DIABETES MELLITUS WITH OTHER SKIN 01/18/2018 NAVDEEP BOYER APRN Ot 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 01/18/2018 NAVDEEP BOYER HR ANALYST Ot L97.812 NON-PRS CHRONIC ULCER OTH PRT R LOW LEG 01/18/2018 NAVDEEP BOYER R HR ANALYST Ot L97.822 NON-PRS CHRONIC ULCER OTH PRT L LOW LEG 01/25/2018 NAVDEEP BOYER HR ANALYST Ot E11.622 TYPE 2 DIABETES MELLITUS WITH OTHER SKIN 01/25/2018 NAVDEEP BOYER HR ANALYST Ot 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 01/25/2018 NAVDEEP BOYER R HR ANALYST Ot L97.811 NON-PRS CHR ULCER OTH PRT R LOW LEG LIMI 01/25/2018 NAVDEEP BOYER R HR ANALYST Ot L97.812 NON-PRS CHRONIC ULCER OTH PRT R LOW LEG 01/25/2018 NAVDEEP BOYER HR ANALYST Ot L97.822 NON-PRS CHRONIC ULCER OTH PRT L LOW LEG 02/06/2018 NAVDEEP BOYER HR ANALYST Ot E11.622 TYPE 2 DIABETES MELLITUS WITH OTHER SKIN 02/06/2018 NAVDEEP BOYER HR ANALYST Ot 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 02/06/2018 NAVDEEP BOYER HR ANALYST Ot L97.811 NON-PRS CHR ULCER OTH PRT R LOW LEG LIMI 02/06/2018 NAVDEEP BOYER R HR ANALYST Ot L97.812 NON-PRS CHRONIC ULCER OTH PRT R LOW LEG 02/06/2018 NAVDEEP BOYER HR ANALYST Ot L97.822 NON-PRS CHRONIC ULCER OTH PRT L LOW LEG 02/07/2018 Curtis PATINO MD Ot E78.5 HYPERLIPIDEMIA, UNSPECIFIED 02/07/2018 Curtis PATINO MD Ot I11.0 HYPERTENSIVE HEART DISEASE WITH HEART FA 02/07/2018 Curtis PATINO MD Ot I42.9 CARDIOMYOPATHY, UNSPECIFIED 02/07/2018 Curtis PATINO MD Ot R06.02 SHORTNESS OF BREATH 02/07/2018 Curtis PATINO MD Ot Z72.0 TOBACCO USE 02/08/2018 NAVDEEP BOYER HR ANALYST Ot E11.622 TYPE 2 DIABETES MELLITUS WITH OTHER SKIN 02/08/2018 MERLIN, NAVDEEP R HR ANALYST Ot 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 02/08/2018 NAVDEEP BOYER R HR ANALYST Ot L97.811 NON-PRS CHR ULCER OTH PRT R LOW LEG LIMI 02/08/2018 NAVDEEP BOYER R HR ANALYST Ot L97.812 NON-PRS CHRONIC ULCER OTH PRT R LOW LEG 02/08/2018 NAVDEEP BOYER R HR ANALYST Ot L97.822 NON-PRS CHRONIC ULCER OTH PRT L LOW LEG 02/10/2018 NAVDEEP BOYER R HR ANALYST Ot E11.622 TYPE 2 DIABETES MELLITUS WITH OTHER SKIN 02/10/2018 NAVDEEP BOYER HR ANALYST Ot 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 02/10/2018 NAVDEEP BOYER R HR ANALYST Ot L97.812 NON-PRS CHRONIC ULCER OTH PRT R LOW LEG 02/10/2018 NAVDEEP BOYER HR ANALYST Ot L97.822 NON-PRS CHRONIC ULCER OTH PRT L LOW LEG 02/13/2018 NAVDEEP BOYER HR ANALYST Ot E11.622 TYPE 2 DIABETES MELLITUS WITH OTHER SKIN 02/13/2018 NAVDEEP BOYER R HR ANALYST Ot 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 02/13/2018 NAVDEEP BOYER R HR ANALYST Ot L97.812 NON-PRS CHRONIC ULCER OTH PRT R LOW LEG 02/13/2018 NAVDEEP BOYER R HR ANALYST Ot L97.822 NON-PRS CHRONIC ULCER OTH PRT L LOW LEG 02/15/2018 NAVDEEP BOYER HR ANALYST Ot E11.622 TYPE 2 DIABETES MELLITUS WITH OTHER SKIN 02/15/2018 NAVDEEP BOYER HR ANALYST Ot 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 02/15/2018 NAVDEEP BOYER R HR ANALYST Ot L97.811 NON-PRS CHR ULCER OTH PRT R LOW LEG LIMI 02/15/2018 NAVDEEP BOYER R HR ANALYST Ot L97.812 NON-PRS CHRONIC ULCER OTH PRT R LOW LEG 02/15/2018 NAVDEEP BOYER R HR ANALYST Ot L97.822 NON-PRS CHRONIC ULCER OTH PRT L LOW LEG 02/16/2018 NAVDEEP BOYER R HR ANALYST Ot E11.622 TYPE 2 DIABETES MELLITUS WITH OTHER SKIN 02/16/2018 NAVDEEP BOYER R HR ANALYST Ot 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 02/16/2018 NAVDEEP BOYER HR ANALYST Ot L97.811 NON-PRS CHR ULCER OTH PRT R LOW LEG LIMI 02/16/2018 NAVDEEP BOYER HR ANALYST Ot L97.812 NON-PRS CHRONIC ULCER OTH PRT R LOW LEG 02/16/2018 NAVDEEP BOYER HR ANALYST Ot L97.822 NON-PRS CHRONIC ULCER OTH PRT L LOW LEG 02/17/2018 MARIANN OJEDA APRN Ot F32.9 MAJOR DEPRESSIVE DISORDER, SINGLE EPISOD 02/17/2018 MARIANN OJEDA APRN Ot F41.9 ANXIETY DISORDER, UNSPECIFIED 02/17/2018 MARIANN OJEDA APRN Ot I11.0 HYPERTENSIVE HEART DISEASE WITH HEART FA 02/17/2018 MARIANN OJEDA APRN Ot I42.9 CARDIOMYOPATHY, UNSPECIFIED 02/17/2018 MARIANN OJEDA APRN Ot I50.20 UNSPECIFIED SYSTOLIC (CONGESTIVE) HEART 02/17/2018 MARIANN OJEDA APRN Ot M06.9 RHEUMATOID ARTHRITIS, UNSPECIFIED 02/17/2018 MARIANN OJEDA APRN Ot R03.0 ELEVATED BLOOD-PRESSURE READING, W/O STELLA 02/17/2018 MARIANN OJEDA APRN Ot Z82.49 FAMILY HX OF ISCHEM HEART DIS AND OTH DI 02/17/2018 MARIANN OJEDA APRN Ot Z95.810 PRESENCE OF AUTOMATIC (IMPLANTABLE) CARD 02/20/2018 MARIANN OJEDA APRN Ot F32.9 MAJOR DEPRESSIVE DISORDER, SINGLE EPISOD 02/20/2018 MARIANN OJEDA APRN Ot F41.9 ANXIETY DISORDER, UNSPECIFIED 02/20/2018 MARIANN OJEDA APRN Ot I11.0 HYPERTENSIVE HEART DISEASE WITH HEART FA 02/20/2018 MARIANN OJEDA APRN Ot I42.9 CARDIOMYOPATHY, UNSPECIFIED 02/20/2018 MARIANN OJEDA APRN Ot I50.20 UNSPECIFIED SYSTOLIC (CONGESTIVE) HEART 02/20/2018 MARIANN OJEDA APRN Ot M06.9 RHEUMATOID ARTHRITIS, UNSPECIFIED 02/20/2018 MARIANN OJEDA APRN Ot R03.0 ELEVATED BLOOD-PRESSURE READING, W/O STELLA 02/20/2018 MARIANN OJEDA APRN Ot Z82.49 FAMILY HX OF ISCHEM HEART DIS AND OTH DI 02/20/2018 MARIANN OJEDA HR ANALYST Ot Z95.810 PRESENCE OF AUTOMATIC (IMPLANTABLE) CARD 02/21/2018 MERLINNAVDEEP HR ANALYST Ot E11.622 TYPE 2 DIABETES MELLITUS WITH OTHER SKIN 02/21/2018 MERLIN NAVDEEP R HR ANALYST Ot 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 02/21/2018 MERLIN NAVDEEP R HR ANALYST Ot L97.811 NON-PRS CHR ULCER OTH PRT R LOW LEG LIMI 02/21/2018 MERLIN NAVDEEP R HR ANALYST Ot L97.812 NON-PRS CHRONIC ULCER OTH PRT R LOW LEG 02/21/2018 MERLIN NAVDEEP R HR ANALYST Ot L97.822 NON-PRS CHRONIC ULCER OTH PRT L LOW LEG 02/21/2018 MERLINNAVDEEP HR ANALYST Ot E11.622 TYPE 2 DIABETES MELLITUS WITH OTHER SKIN 02/21/2018 MERLIN NAVDEEP R HR ANALYST Ot 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 02/21/2018 MERLIN NAVDEEP R HR ANALYST Ot L97.811 NON-PRS CHR ULCER OTH PRT R LOW LEG LIMI 02/21/2018 MERLIN NAVDEEP R HR ANALYST Ot L97.812 NON-PRS CHRONIC ULCER OTH PRT R LOW LEG 02/21/2018 MERLIN NAVDEEP R HR ANALYST Ot L97.822 NON-PRS CHRONIC ULCER OTH PRT L LOW LEG 02/23/2018 Ot 785.1 PALPITATIONS 02/23/2018 Curtis PATINO MD Ot G47.33 OBSTRUCTIVE SLEEP APNEA (ADULT) (PEDIATR 02/24/2018 Curtis PATINO MD Ot E78.5 HYPERLIPIDEMIA, UNSPECIFIED 02/24/2018 Curtis PATINO MD Ot I11.0 HYPERTENSIVE HEART DISEASE WITH HEART FA 02/24/2018 Curtis PATINO MD Ot I42.9 CARDIOMYOPATHY, UNSPECIFIED 02/24/2018 Curtis PATINO MD Ot R06.02 SHORTNESS OF BREATH 02/24/2018 Curtis PATINO MD Ot Z72.0 TOBACCO USE 02/24/2018 Curtis PATINO MD Ot E11.9 TYPE 2 DIABETES MELLITUS WITHOUT COMPLIC 02/24/2018 Curtis PATINO MD Ot E66.01 MORBID (SEVERE) OBESITY DUE TO EXCESS CA 02/24/2018 Curtis PATINO MD Ot E78.5 HYPERLIPIDEMIA, UNSPECIFIED 02/24/2018 Curtis PATINO MD Ot F17.220 NICOTINE DEPENDENCE, CHEWING TOBACCO, UN 02/24/2018 Curtis PATINO MD Ot I07.1 RHEUMATIC TRICUSPID INSUFFICIENCY 02/24/2018 Curtis PATINO MD Ot I11.0 HYPERTENSIVE HEART DISEASE WITH HEART FA 02/24/2018 Curtis PATINO MD Ot I42.9 CARDIOMYOPATHY, UNSPECIFIED 02/24/2018 Curtis PATINO MD Ot I50.22 CHRONIC SYSTOLIC (CONGESTIVE) HEART FAIL 02/24/2018 Curtis PATINO MD Ot Z68.42 BODY MASS INDEX (BMI) 45.0-49.9, ADULT 02/24/2018 Curtis PATINO MD Ot Z79.899 OTHER JAIL (CURRENT) DRUG THERAPY 02/24/2018 Curtis PATINO MD Ot G47.33 OBSTRUCTIVE SLEEP APNEA (ADULT) (PEDIATR 02/27/2018 NAVDEEP BOYER HR ANALYST Ot E11.622 TYPE 2 DIABETES MELLITUS WITH OTHER SKIN 02/27/2018 NAVDEEP BOYER HR ANALYST Ot 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 02/27/2018 NAVDEEP BOYER HR ANALYST Ot L97.811 NON-PRS CHR ULCER OTH PRT R LOW LEG LIMI 02/27/2018 NAVDEEP BOYER HR ANALYST Ot L97.812 NON-PRS CHRONIC ULCER OTH PRT R LOW LEG 02/27/2018 NAVDEEP BOYER HR ANALYST Ot L97.822 NON-PRS CHRONIC ULCER OTH PRT L LOW LEG 02/28/2018 NAVDEEP BOYER HR ANALYST Ot E11.622 TYPE 2 DIABETES MELLITUS WITH OTHER SKIN 02/28/2018 NAVDEEP BOYER HR ANALYST Ot 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 02/28/2018 NAVDEEP BOYER HR ANALYST Ot L97.811 NON-PRS CHR ULCER OTH PRT R LOW LEG LIMI 02/28/2018 NAVDEEP BOYER APRN Ot L97.812 NON-PRS CHRONIC ULCER OTH PRT R LOW LEG 02/28/2018 NAVDEEP BOYER APRN Ot L97.822 NON-PRS CHRONIC ULCER OTH PRT L LOW LEG 02/28/2018 Curtis PATINO MD Ot E78.5 HYPERLIPIDEMIA, UNSPECIFIED 02/28/2018 Curtis PATINO MD Ot I11.0 HYPERTENSIVE HEART DISEASE WITH HEART FA 02/28/2018 Curtis PATINO MD Ot I42.9 CARDIOMYOPATHY, UNSPECIFIED 02/28/2018 Curtis PATINO MD Ot R06.02 SHORTNESS OF BREATH 02/28/2018 Curtis PATINO MD Ot Z72.0 TOBACCO USE 02/28/2018 Curtis PATINO MD Ot E11.9 TYPE 2 DIABETES MELLITUS WITHOUT COMPLIC 02/28/2018 Curtis PATINO MD Ot E66.01 MORBID (SEVERE) OBESITY DUE TO EXCESS CA 02/28/2018 Curtis PATINO MD Ot E78.5 HYPERLIPIDEMIA, UNSPECIFIED 02/28/2018 Curtis PATINO MD Ot F17.220 NICOTINE DEPENDENCE, CHEWING TOBACCO, UN 02/28/2018 Curtis PATINO MD Ot I07.1 RHEUMATIC TRICUSPID INSUFFICIENCY 02/28/2018 Curtis PATINO MD Ot I11.0 HYPERTENSIVE HEART DISEASE WITH HEART FA 02/28/2018 Curtis PATINO MD Ot I42.9 CARDIOMYOPATHY, UNSPECIFIED 02/28/2018 Curtis PATINO MD Ot I50.22 CHRONIC SYSTOLIC (CONGESTIVE) HEART FAIL 02/28/2018 Curtis PATINO MD Ot Z68.42 BODY MASS INDEX (BMI) 45.0-49.9, ADULT 02/28/2018 Curtis PATINO MD Ot Z79.899 OTHER JAIL (CURRENT) DRUG THERAPY 03/06/2018 NAVDEEP BOYER APRN Ot E11.622 TYPE 2 DIABETES MELLITUS WITH OTHER SKIN 03/06/2018 NAVDEEP BOYER APRN Ot 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 03/06/2018 MERLIN, NAVDEEP R HR ANALYST Ot L97.811 NON-PRS CHR ULCER OTH PRT R LOW LEG LIMI 03/06/2018 MERLINNAVDEEP R HR ANALYST Ot L97.812 NON-PRS CHRONIC ULCER OTH PRT R LOW LEG 03/06/2018 MERLIN NAVDEEP R HR ANALYST Ot L97.822 NON-PRS CHRONIC ULCER OTH PRT L LOW LEG 03/08/2018 MERLINNAVDEEP R HR ANALYST Ot E11.622 TYPE 2 DIABETES MELLITUS WITH OTHER SKIN 03/08/2018 MERLINNAVDEEP R HR ANALYST Ot 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 03/08/2018 MERLIN NAVDEEP R HR ANALYST Ot L97.811 NON-PRS CHR ULCER OTH PRT R LOW LEG LIMI 03/08/2018 MERLINNAVDEEP R HR ANALYST Ot L97.812 NON-PRS CHRONIC ULCER OTH PRT R LOW LEG 03/08/2018 MERLINNAVDEEP HR ANALYST Ot L97.822 NON-PRS CHRONIC ULCER OTH PRT L LOW LEG 03/14/2018 MERLINNAVDEEP R HR ANALYST Ot E11.622 TYPE 2 DIABETES MELLITUS WITH OTHER SKIN 03/14/2018 MERLINNAVDEEP HR ANALYST Ot 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 03/14/2018 NAVDEEP BOYER R HR ANALYST Ot L97.811 NON-PRS CHR ULCER OTH PRT R LOW LEG LIMI 03/14/2018 NAVDEEP BOYER R HR ANALYST Ot L97.812 NON-PRS CHRONIC ULCER OTH PRT R LOW LEG 03/14/2018 MERLINNAVDEEP R HR ANALYST Ot L97.822 NON-PRS CHRONIC ULCER OTH PRT L LOW LEG 03/14/2018 Curtis PATINO MD Ot G47.33 OBSTRUCTIVE SLEEP APNEA (ADULT) (PEDIATR 03/15/2018 Curtis PATINO MD Ot G47.33 OBSTRUCTIVE SLEEP APNEA (ADULT) (PEDIATR 03/15/2018 Curtis PATINO MD Ot R06.83 SNORING 03/15/2018 Curtis PATINO MD Ot G47.33 OBSTRUCTIVE SLEEP APNEA (ADULT) (PEDIATR 03/15/2018 Curtis PATINO MD Ot R06.83 SNORING 05/04/2018 Ot 729.5 PAIN IN LIMB 05/04/2018 Ot 785.1 PALPITATIONS 05/04/2018 NAVDEEP BOYER HR ANALYST Ot E11.622 TYPE 2 DIABETES MELLITUS WITH OTHER SKIN 05/04/2018 NAVDEEP BOYER HR ANALYST Ot 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 05/04/2018 NAVDEEP BOYER HR ANALYST Ot L97.812 NON-PRS CHRONIC ULCER OTH PRT R LOW LEG 05/04/2018 NAVDEEP BOYER R HR ANALYST Ot L97.822 NON-PRS CHRONIC ULCER OTH PRT L LOW LEG 05/04/2018 CAREY MCLEAN, Curtis MUNOZ Ot E78.5 HYPERLIPIDEMIA, UNSPECIFIED 05/04/2018 CAREY MCLEAN, Curtis MUNOZ Ot I11.0 HYPERTENSIVE HEART DISEASE WITH HEART FA 05/04/2018 CAREY MCLEAN, Curtis MUNOZ Ot I42.9 CARDIOMYOPATHY, UNSPECIFIED 05/04/2018 CAREY MCLEAN, Curtis MUNOZ Ot R06.02 SHORTNESS OF BREATH 05/04/2018 CAREY MCLEAN, M ALEXANDER Ot Z72.0 TOBACCO USE 05/04/2018 NAVDEEP BOYER HR ANALYST Ot E11.622 TYPE 2 DIABETES MELLITUS WITH OTHER SKIN 05/04/2018 NAVDEEP BOYER HR ANALYST Ot 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 05/04/2018 NAVDEEP BOYER HR ANALYST Ot L97.812 NON-PRS CHRONIC ULCER OTH PRT R LOW LEG 05/04/2018 NAVDEEP BOYER HR ANALYST Ot L97.822 NON-PRS CHRONIC ULCER OTH PRT L LOW LEG 05/04/2018 NAVDEEP BOYER HR ANALYST Ot E11.622 TYPE 2 DIABETES MELLITUS WITH OTHER SKIN 05/04/2018 NAVDEEP BOYER HR ANALYST Ot 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 05/04/2018 NAVDEEP BOYER HR ANALYST Ot L97.811 NON-PRS CHR ULCER OTH PRT R LOW LEG LIMI 05/04/2018 NAVDEEP BOYER R HR ANALYST Ot L97.812 NON-PRS CHRONIC ULCER OTH PRT R LOW LEG 05/04/2018 NAVDEEP BOYER R HR ANALYST Ot L97.822 NON-PRS CHRONIC ULCER OTH PRT L LOW LEG 05/04/2018 MERLIN, NAVDEEP R HR ANALYST Ot E11.622 TYPE 2 DIABETES MELLITUS WITH OTHER SKIN 05/04/2018 MERLIN NAVDEEP R HR ANALYST Ot 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 05/04/2018 MERLINNAVDEEP R HR ANALYST Ot L97.811 NON-PRS CHR ULCER OTH PRT R LOW LEG LIMI 05/04/2018 NAVDEEP BOYER R HR ANALYST Ot L97.812 NON-PRS CHRONIC ULCER OTH PRT R LOW LEG 05/04/2018 MERLIN NAVDEEP R HR ANALYST Ot L97.822 NON-PRS CHRONIC ULCER OTH PRT L LOW LEG 05/04/2018 MERLIN NAVDEEP R HR ANALYST Ot E11.622 TYPE 2 DIABETES MELLITUS WITH OTHER SKIN 05/04/2018 MERLINNAVDEEP R HR ANALYST Ot 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 05/04/2018 MERLIN NAVDEEP R HR ANALYST Ot L97.811 NON-PRS CHR ULCER OTH PRT R LOW LEG LIMI 05/04/2018 NAVDEEP BOYER R HR ANALYST Ot L97.812 NON-PRS CHRONIC ULCER OTH PRT R LOW LEG 05/04/2018 MERLIN NAVDEEP R HR ANALYST Ot L97.822 NON-PRS CHRONIC ULCER OTH PRT L LOW LEG 05/04/2018 NAVDEEP BOYER R HR ANALYST Ot E11.622 TYPE 2 DIABETES MELLITUS WITH OTHER SKIN 05/04/2018 NAVDEEP BOYER R HR ANALYST Ot 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 05/04/2018 MERLIN NAVDEEP R HR ANALYST Ot L97.811 NON-PRS CHR ULCER OTH PRT R LOW LEG LIMI 05/04/2018 MERLIN NAVDEEP R HR ANALYST Ot L97.812 NON-PRS CHRONIC ULCER OTH PRT R LOW LEG 05/04/2018 MERLIN NAVDEEP R HR ANALYST Ot L97.822 NON-PRS CHRONIC ULCER OTH PRT L LOW LEG 05/15/2018 FRANCIA MCLEAN, ONI Levine Ot G89.29 OTHER CHRONIC PAIN 05/16/2018 ONI FELDMAN MD Ot G89.29 OTHER CHRONIC PAIN 06/05/2018 FRANCIA MCLEAN, ONI Levine Ot G89.29 OTHER CHRONIC PAIN Procedures Code Description [place] [address] XRAY CHEST 2 VIEW 01/15/2015 93384 EKG, TRACING (IN-HOUSE) 01/15/2015 06919 PSYCH DIAGNOSTIC EVALUATION 01/15/2015 18450 ROUTINE VENIPUNCTURE 01/17/2015 Cardiolog Lorenzo Mabryangie 01/17/2015 79213 CBC 01/17/2015 [id number] GFR CALC (RESULT ONLY) 01/17/2015 17643 CMP 01/17/2015 69615 LIPID PANEL 01/17/2015 71055 MAGNESIUM 01/17/2015 22056 TSH 01/17/2015 Results Test Result Range CBC [...] 10.9 fL 7.5-12.5 ABSOLUTE NEUTROPHILS 6408 cells/uL 2177-1668 ABSOLUTE LYMPHOCYTES 1154 cells/uL 850-3900 ABSOLUTE MONOCYTES [...] NRG Prescribed Drug 2 Xanax(TM) NRG Specific [place] 1.007 > or=1.003 Automated blood complete blood count (hemogram) panel - 02/23/18 08:46 Blood leukocytes automated count (number/volume) 10.0 10*3/uL 4.3-11.0 Blood erythrocytes automated count (number/volume) 6.50 10*6/uL 4.35-5.85 Venous blood hemoglobin measurement (mass/volume) 16.7 g/dL 13.3-17.7 Blood hematocrit (volume fraction) 51 % 40-54 Automated erythrocyte mean corpuscular volume 78 [foz_us] 80-99 Automated erythrocyte mean corpuscular hemoglobin (mass per erythrocyte) 26 pg 25-34 Automated erythrocyte mean corpuscular hemoglobin concentration measurement ( mass/volume) 33 g/dL 32-36 Automated erythrocyte distribution width ratio 20.7 % 10.0-14.5 Automated blood platelet count (count/volume) 243 10*3/uL 130-400 Automated blood platelet mean volume measurement 10.1 [foz_us] 7.4-10.4 PT panel in platelet poor plasma by coagulation assay - 02/23/18 08:46 Prothrombin time (PT) in platelet poor plasma by coagulation assay 14.4 s 12.2-14.7 INR in platelet poor plasma or blood by coagulation assay 1.1 0.8-1.4 Activated partial thromboplastin time (aPTT) in platelet poor plasma bycoagulation assay - 02/23/18 08:46 Activated partial thromboplastin time (aPTT) in platelet poor plasma bycoagulation assay 28 s 24-35 Comprehensive metabolic panel - 02/23/18 08:46 Serum or plasma sodium measurement (moles/volume) 135 mmol/L 135-145 Serum or plasma potassium measurement (moles/volume) 4.4 mmol/L 3.6-5.0 Serum or plasma chloride measurement (moles/volume) 97 mmol/L 98-107 Carbon dioxide 27 mmol/L 21-32 Serum or plasma anion gap determination (moles/volume) 11 mmol/L 5-14 Serum or plasma urea nitrogen measurement (mass/volume) 17 mg/dL 7-18 Serum or plasma creatinine measurement (mass/volume) 0.86 mg/dL 0.60-1.30 Serum or plasma urea nitrogen/creatinine mass ratio 20 NRG Serum or plasma creatinine measurement with calculation of estimated glomerular filtration rate > NRG Serum or plasma glucose measurement (mass/volume) 262 mg/dL 70-105 Serum or plasma calcium measurement (mass/volume) 10.0 mg/dL 8.5-10.1 Serum or plasma total bilirubin measurement (mass/volume) 1.1 mg/dL 0.1-1.0 Serum or plasma alkaline phosphatase measurement (enzymatic activity/volume) 125 U/L 40-136 Serum or plasma aspartate aminotransferase measurement (enzymatic activity/ volume) 24 U/L 5-34 Serum or plasma alanine aminotransferase measurement (enzymatic activity/volume ) 25 U/L 0-55 Serum or plasma protein measurement (mass/volume) 9.3 g/dL 6.4-8.2 Serum or plasma albumin measurement (mass/volume) 4.1 g/dL 3.2-4.5 Lipid 1996 panel - 02/23/18 08:46 Serum or plasma triglyceride measurement (mass/volume) 68 mg/dL <150 Serum or plasma cholesterol measurement (mass/volume) 133 mg/dL < 200 Serum or plasma cholesterol in HDL measurement (mass/volume) 38 mg/ dL 40-60 Cholesterol in LDL [mass/volume] in serum or plasma by direct assay 81 mg/dL 1-129 Serum or plasma cholesterol in VLDL measurement (mass/volume) 14 mg/ dL 5-40 Methicillin resistant Staphylococcus aureus (MRSA) screening culture - 08:46 Methicillin resistant Staphylococcus aureus (MRSA) screening culture NEG NRG Automated blood complete blood count (hemogram) panel - 02/24/18 03:19 Blood leukocytes automated count (number/volume) 11.3 10*3/uL 4.3-11.0 Blood erythrocytes automated count (number/volume) 6.17 10*6/uL 4.35-5.85 Venous blood hemoglobin measurement (mass/volume) 16.0 g/dL 13.3-17.7 Blood hematocrit (volume fraction) 49 % 40-54 Automated erythrocyte mean corpuscular volume 79 [foz_us] 80-99 Automated erythrocyte mean corpuscular hemoglobin (mass per erythrocyte) 26 pg 25-34 Automated erythrocyte mean corpuscular hemoglobin concentration measurement ( mass/volume) 33 g/dL 32-36 Automated erythrocyte distribution width ratio 20.9 % 10.0-14.5 Automated blood platelet count (count/volume) 195 10*3/uL 130-400 Automated blood platelet mean volume measurement 10.0 [foz_us] 7.4-10.4 Comprehensive metabolic panel - 02/24/18 03:19 Serum or plasma sodium measurement (moles/volume) 133 mmol/L 135-145 Serum or plasma potassium measurement (moles/volume) 4.3 mmol/L 3.6-5.0 Serum or plasma chloride measurement (moles/volume) 99 mmol/L 98-107 Carbon dioxide 22 mmol/L 21-32 Serum or plasma anion gap determination (moles/volume) 12 mmol/L 5-14 Serum or plasma urea nitrogen measurement (mass/volume) 19 mg/dL 7-18 Serum or plasma creatinine measurement (mass/volume) 0.77 mg/dL 0.60-1.30 Serum or plasma urea nitrogen/creatinine mass ratio 25 NRG Serum or plasma creatinine measurement with calculation of estimated glomerular filtration rate > NRG Serum or plasma glucose measurement (mass/volume) 186 mg/dL 70-105 Serum or plasma calcium measurement (mass/volume) 9.5 mg/dL 8.5-10.1 Serum or plasma total bilirubin measurement (mass/volume) 1.2 mg/dL 0.1-1.0 Serum or plasma alkaline phosphatase measurement (enzymatic activity/volume) 116 U/L 40-136 Serum or plasma aspartate aminotransferase measurement (enzymatic activity/ volume) 24 U/L 5-34 Serum or plasma alanine aminotransferase measurement (enzymatic activity/volume ) 21 U/L 0-55 Serum or plasma protein measurement (mass/volume) 7.8 g/dL 6.4-8.2 Serum or plasma albumin measurement (mass/volume) 3.5 g/dL 3.2-4.5 CMP - 03/22/18 08:53 GLUCOSE 218 mg/dL 65-99 UREA NITROGEN (BUN) 29 mg/dL 7-25 CREATININE 0.93 mg/dL 0.60-1.35 eGFR NON-AFR. PALAUAN 99 mL/min/1.73m2 > OR=60 eGFR 114 mL/min/1.73m2 > OR=60 BUN/CREATININE RATIO 31 (calc) 6-22 SODIUM 132 mmol/L 135-146 POTASSIUM 4.7 mmol/L 3.5-5.3 CHLORIDE 95 mmol/L 98-110 CARBON DIOXIDE 29 mmol/L 20-31 CALCIUM 9.8 mg/dL 8.6-10.3 PROTEIN, TOTAL 8.1 g/dL 6.1-8.1 ALBUMIN 4.0 g/dL 3.6-5.1 GLOBULIN 4.1 g/dL (calc) 1.9-3.7 ALBUMIN/GLOBULIN RATIO 1.0 (calc) 1.0-2.5 BILIRUBIN, TOTAL 0.9 mg/dL 0.2-1.2 ALKALINE PHOSPHATASE 114 U/L 40-115 AST 22 U/L 10-40 ALT 23 U/L 9-46 Encounters ACCT No. Visit Date/Time Discharge Status Pt. Type Provider Facility Loc./Unit Complaint [id number] 01/17/2015 09:43:00 01/17/2015 23:59:59 CLS Outpatient CODY ACE APRN [id number] 01/15/2015 09:57:00 01/15/2015 23:59:59 CLS Outpatient COYD ACE APRN [id number] 01/15/2015 09:57:00 01/15/2015 23:59:59 CLS Outpatient CODY ACE APRN [id number] 11/22/2018 16:30:00 11/22/2018 23:59:59 CLS Outpatient ROSE MARY BUCKNER [facility] [id number] 03/22/2018 08:00:00 Document Registration [id number] 01/03/2018 10:20:00 Document Registration [id number] 09/23/2017 10:20:00 Document Registration [id number] 05/22/2018 13:06:00 05/22/2018 23:59:59 CLS Outpatient ONI FELDMAN MD [facility] REHAB CHRONIC PAIN [id number] 03/14/2018 21:23:00 03/15/2018 06:20:00 DIS Outpatient Curtis PATINO MD [facility] SLEEP G47.33 OBSTRUCTIVE SLEEP APNEA [id number] 02/23/2018 08:22:00 02/24/2018 10:10:00 DIS Outpatient Curtis PATINO MD [facility] CATH NICMP,EF 20-25% [id number] 02/17/2018 17:37:00 02/17/2018 19:21:00 DIS Emergency MARIANN OJEDA HR ANALYST [facility] ER HIGH BP [id number] 02/14/2018 08:59:00 02/14/2018 23:59:59 CLS Outpatient NAVDEEP BOYER HR ANALYST [facility] WOUNDCARE [id number] 02/07/2018 09:11:00 02/07/2018 23:59:59 CLS Outpatient NAVDEEP BOYER HR ANALYST [facility] WOUNDCARE [id number] 02/03/2018 13:15:00 02/03/2018 23:59:59 CLS Outpatient Curtis PATINO MD [facility] CARD [facility] [id number] 01/31/2018 08:32:00 01/31/2018 23:59:59 CLS Outpatient NAVDEEP BOYER HR ANALYST [facility] WOUNDCARE [id number] 01/24/2018 08:29:00 01/24/2018 23:59:59 CLS Outpatient NAVDEEP BOYER HR ANALYST [facility] WOUNDCARE [id number] 01/17/2018 08:39:00 01/17/2018 23:59:59 CLS Outpatient NAVDEEP BOYER HR ANALYST [facility] WOUNDCARE [id number] 01/10/2018 10:12:00 01/10/2018 23:59:59 CLS Outpatient NAVDEEP BOYER HR ANALYST [facility] WOUNDCARE [id number] 11/10/2017 07:13:00 11/10/2017 17:05:00 DIS Outpatient Curtis PATINO MD [facility],SOB [id number] 10/07/2017 12:30:00 10/11/2017 20:35:00 DIS Inpatient BRENDA MCLEAN, JEANMARIE Hays [facility] 4TH PERSISTENT PERIPHERAL EDEMA [id number] 09/20/2017 09:11:00 09/20/2017 12:36:00 DIS Emergency BERNABE MCLEAN, OBIE Gavin [facility] ER SWELLING [id number] 2016 10:47:00 2016 13:04:00 DIS Outpatient JP BEYER MD [facility] CARD HIP OSTEOARTHRITIS [id number] 11/15/2013 12:52:00 02/13/2014 00:01:00 DIS Outpatient JIMMY ESPINOZA DO [facility] CARD PALPITATIONS [id number] 11/14/2013 16:18:00 11/14/2013 18:27:00 DIS Emergency ALEXIS JIMMY NAVARRO [facility] ER HEART FLUTTERING [id number] 11/30/2018 17:12:00 ACT Emergency MARIANN OJEDA APRN [facility] ER COUGH,FEVER [id number] 02/14/2014 13:00:00 Document Registration [id number] 02/06/2013 14:47:00 Document Registration [id number] 06/15/2012 15:02:00 Document Registration [id number] 04/22/2012 23:35:00 Document Registration [id number] 03/12/2012 04:12:00 Document Registration [id number] 03/18/2017 08:42:00 Document Registration
[2018-11-30 17:59] VITALS: BP 123/74
== END 2018-11-30 17:59 | disposition home or self-care (01) ==
LOC: EDUNIT# 17:10 → ER 17:12
DX: J10.1 Influenza due to other identified influenza virus with other respiratory manifestations (principal); I10 Essential (primary) hypertension; M06.9 Rheumatoid arthritis, unspecified; F41.9 Anxiety disorder, unspecified; F32.9 Major depressive disorder, single episode, unspecified; Z88.8 Allergy status to other drugs, medicaments and biological substances; Z79.4 Long term (current) use of insulin; Z95.0 Presence of cardiac pacemaker; Z82.49 Family history of ischemic heart disease and other diseases of the circulatory system
CPT/HCPCS: 71046; 87804

== ENCOUNTER → 2019-06-14 | Outpatient (CLI) | payer MEDICARE, MEDICAID ==
[~2019-06-14] MED LIST changes: +OSLT75C PO; -TRAZ-189 PO; +TRAZ-222 PO
--- NOTE | 2019-06-14 16:13 | Diagnostic Imaging Report ---
INDICATION: Left hip pain. Time of exam 10:37 a.m. FINDINGS: Two views of the left hip are obtained. There are severe osteoarthritic changes involving the left hip. There is complete loss of the superior joint space. There is significant sclerosis of the femoral head and acetabular roof with subchondral cyst formation. There appears to be a large osteophyte arising from the femoral head-neck junction inferiorly. No definite fractures are identified. There is no dislocation. IMPRESSION: Severe left hip osteoarthritic changes. No acute bony abnormality is seen. Dictated by: Dictated on workstation # [id number]
--- NOTE | 2019-06-14 18:39 | Diagnostic Imaging Report ---
INDICATION: Right hip pain. TIME OF EXAM: 10:41 a.m. FINDINGS: Two views of the right hip are obtained. There are severe osteoarthritic changes of the right hip. Complete loss of the superior joint space is seen. There is a large osteophyte arising from the femoral head neck junction inferiorly. Overall appearance is similar to left hip. No acute fracture is identified. There is no dislocation. IMPRESSION: Severe osteoarthritic changes to the right hip. No acute bony abnormality is seen. Dictated by: Dictated on workstation # [id number]
== END ==
LOC: RAD FS 10:28
PROVIDERS: ATTEND Nurse Practitioner
DX: M16.0 Bilateral primary osteoarthritis of hip (principal)
CPT/HCPCS: 73502

== ENCOUNTER → 2019-09-04 | Outpatient (CLI) | payer MEDICARE, MEDICAID | LOC: CARD 08:23 | PROVIDERS: ATTEND Internal Medicine Interventional Cardiology | DX: I42.9 Cardiomyopathy, unspecified (principal); I11.0 Hypertensive heart disease with heart failure; I50.42 Chronic combined systolic (congestive) and diastolic (congestive) heart failure; Z95.810 Presence of automatic (implantable) cardiac defibrillator; Z72.0 Tobacco use | CPT/HCPCS: 93306 ==

== ENCOUNTER → 2020-12-15 | Outpatient (CLI) | payer MEDICARE, MEDICAID ==
[~2020-12-15] MED LIST changes: +ACHYD1T PO; -HYDR-3820 PO; -LISI-552 PO; +LISI20TA26 PO; -LISI40TA PO; +LISI40TA9 PO; -METO-370 PO; +METO50TA7 PO; -TRAZ-222 PO; +TRZ50T PO
[2020-12-15 09:58] LABS: HEMOGLOBIN 14.1 g/dL (13.3-17.7); MEAN PLATELET VOLUME 9.2 fL (9.0-12.2); WHITE BLOOD COUNT 8.1 10^3/uL (4.3-11.0)
[2020-12-15 10:17] LABS: ALANINE AMINOTRANSFERASE 23 U/L (0-55); ALBUMIN 4.3 GM/DL (3.2-4.5); ALKALINE PHOSPHATASE 72 U/L (40-136); BILIRUBIN,TOTAL 0.4 MG/DL (0.1-1.0); BUN/CREATININE RATIO 21; CALCIUM 9.2 MG/DL (8.5-10.1); CARBON DIOXIDE 22 MMOL/L (21-32); CHLORIDE 105 MMOL/L (98-107); GFR ESTIMATED > 60; GLUCOSE 182 MG/DL (70-105); POTASSIUM 4.1 MMOL/L (3.6-5.0); SODIUM 139 MMOL/L (135-145); TOTAL PROTEIN 7.9 GM/DL (6.4-8.2)
== END ==
LOC: LAB 09:23
PROVIDERS: ATTEND Nurse Practitioner Family
DX: I47.1 Supraventricular tachycardia (principal)
CPT/HCPCS: 36415; 80053; 85027

== ENCOUNTER → 2020-12-22 | Outpatient (CLI) | payer MEDICARE, MEDICAID | LOC: CARD 13:00 | PROVIDERS: ATTEND Nurse Practitioner Family | DX: I42.0 Dilated cardiomyopathy (principal) | CPT/HCPCS: 93306 ==

== ENCOUNTER 2021-02-26 20:35 | Outpatient (CLI) | payer MEDICARE, MEDICAID | END 2021-02-27 05:09 | disposition home or self-care (01) | LOC: SLEEP 20:35 | PROVIDERS: ATTEND Internal Medicine Critical Care Medicine | DX: Z01.89 Encounter for other specified special examinations (principal); G47.33 Obstructive sleep apnea (adult) (pediatric); G47.50 Parasomnia, unspecified; G47.10 Hypersomnia, unspecified; E11.9 Type 2 diabetes mellitus without complications; E78.5 Hyperlipidemia, unspecified; F41.8 Other specified anxiety disorders; I11.0 Hypertensive heart disease with heart failure; I50.9 Heart failure, unspecified | CPT/HCPCS: 95811 ==

== ENCOUNTER → 2021-05-07 | Outpatient (CLI) | payer MEDICARE, MEDICAID ==
--- NOTE | 2021-05-07 13:31 | Diagnostic Imaging Report ---
EXAMINATION: Bilateral shoulders three views. HISTORY: Chronic shoulder pain. COMPARISON: None available. FINDINGS: Right shoulder: There is severe right glenohumeral and moderate acromioclavicular joint osteoarthritis. No fracture is seen in the right shoulder. No dislocation. Left shoulder: There is mild left glenohumeral and moderate acromioclavicular joint osteoarthritis. No fracture seen in the left shoulder. No dislocation. IMPRESSION: 1. Severe right and mild left glenohumeral joint osteoarthritis. 2. Moderate bilateral acromioclavicular joint osteoarthritis. Dictated by: Dictated on workstation # [id number]
== END ==
LOC: RAD 11:44
PROVIDERS: ATTEND Nurse Practitioner Family
DX: M19.011 Primary osteoarthritis, right shoulder (principal); M19.012 Primary osteoarthritis, left shoulder

== ENCOUNTER → 2022-10-13 | Outpatient (CLI) | payer MEDICARE, MEDICAID ==
[~2022-10-13] MED LIST changes: +POTA-179 PO; -POTA20TA15 PO; +RT-ALBUTEROL SULF 2.5 MG/3 ML PRE-MIX VIAL INH ONE
== END ==
LOC: RT 08:03
PROVIDERS: ATTEND Pediatrics
DX: G47.33 Obstructive sleep apnea (adult) (pediatric) (principal)
CPT/HCPCS: 94060; 94726; 94729

== ENCOUNTER 2023-03-28 14:29 | Day surgery (SDC) | payer MEDICARE, MEDICAID ==
[2023-03-28] VITALS (11 sets, daily range): BP systolic 89–118; BP diastolic 62–74
[~2023-03-28] VITALS: Ht 182 cm; Wt 131.0 kg
[~2023-03-28 14:29] MED LIST changes: -ACET325T38 PO; -ASPI-999 PO; -BUPR150F3 BC; -BUPR450F2 BC; -CEFU500T63 PO; -EMPA25TA PO; -INSU100V5 SQ; -METO200T48 PO; -OXYC1TAB87 PO
[2023-03-28] MEDS ORDERED: ceFAZolin INJECTION 1,000 MG ONE (14:44)
[2023-03-28] MEDS ORDERED: NS IV 1000 ML 2,000 ML ONE (14:44)
[2023-03-28] MEDS ORDERED: LIDOCAINE 1% INJ 20 ML VIAL ONE (14:44)
[2023-03-28] MEDS ORDERED: HEParin (CATH LAB) 1,000 ML IV ONE (14:45)
[2023-03-28] MEDS ORDERED: NS IV 1000 ML 1,000 ML IV ONE (15:00)
[2023-03-28 15:13] LABS: HEMATOCRIT 49 % (40-54); HEMOGLOBIN 16.3 g/dL (13.3-17.7); MEAN CORPUSCULAR HEMOGLOBIN 29 pg (25-34); MEAN CORPUSCULAR HGB CONC 33 g/dL (32-36); MEAN CORPUSCULAR VOLUME 87 fL (80-99); MEAN PLATELET VOLUME 8.9 fL (9.0-12.2); PLATELET COUNT 250 10^3/uL (130-400); WHITE BLOOD COUNT 11.3 10^3/uL (4.3-11.0)
[2023-03-28] MEDS ORDERED: INSU100V5 SQ (15:22)
[2023-03-28] MEDS ORDERED: EMPA25TA PO (15:22)
[2023-03-28] MEDS ORDERED: BUPR450F2 BC (15:22)
[2023-03-28] MEDS ORDERED: BUPR150F3 BC (15:22)
[2023-03-28] MEDS ORDERED: ASPI-999 PO (15:22)
[2023-03-28] MEDS ORDERED: METO200T48 PO (15:22)
[2023-03-28 15:24] LABS: PROTHROMBIN TIME PATIENT 13.8 SEC (12.2-14.7)
[2023-03-28 15:35] LABS: ALBUMIN 4.4 GM/DL (3.2-4.5); BILIRUBIN,TOTAL 0.7 MG/DL (0.1-1.0); CALCIUM 9.6 MG/DL (8.5-10.1); CREATININE SERUM 1.1 MG/DL (0.60-1.30); POTASSIUM 3.8 MMOL/L (3.6-5.0); TOTAL PROTEIN 8.2 GM/DL (6.4-8.2)
[2023-03-28] MEDS ORDERED: fentaNYL INJ 100 MCG/2 ML AMP ONE ×2 (16:15→17:02)
[2023-03-28] MEDS ORDERED: MIDAZOLAM 5 MG/5 ML (VERSED) VIAL ONE ×2 (16:15→17:02)
[2023-03-28] MEDS ORDERED: diphenhydrAMINE 50 MG/ML INJ (BENADRYL) ONE (17:02)
[2023-03-28] MEDS ORDERED: KETAMINE 50 MG/5 ML SYRINGE ONE (17:25)
--- NOTE | 2023-03-28 18:09 | Anesthesia-General Post-Op ---
MAC Patient Condition Mental Status/LOC: Same as Preop Cardiovascular: Satisfactory Nausea/Vomiting: Absent Respiratory: Satisfactory Pain: Controlled Complications: Absent Post Op Complications Complications None Follow Up Care/Instructions Patient Instructions None needed. Anesthesiology Discharge Order Discharge Order Patient is doing well, no complaints, stable vital signs, no apparent adverse anesthesia problems. No complications reported per nursing. JEROME LOUIS CRNA Mar 28, 2023 18:09
--- NOTE | 2023-03-28 18:09 | Anesthesia-Procedure Note ---
Procedures/Interventions Procedure Start/Stop/Diagnosis Date of Procedure: Mar 28, 2023 Start Time: 17:27 Referring Physician: Jonathan Brief History Rescue Sedation [id number] ASA Class 3 Anesthesia type: MAC/sedation I was called to labor delivery specialist to assist with sedation as patient uncooperative with 7mg Versed, 150 mcg Fentanyl, 50 mg Benadryl for replacement of ICD. I gave a total of 150 mg of Propofol to finish procedure. Patient maintained spontaneous respirations throughout with good etco2 waveform noted and monitored throughout. Patients VS were stable throughout my sedation and he tolerated the testing well. Will be available for further consultation if needed. Stop Time: 17:58 JEROME LOUIS CRNA Mar 28, 2023 18:09
[2023-03-28] MEDS ORDERED: proPOfol 200 MG/20 ML (DIPRIVAN) VIAL IV ONE (18:10)
--- NOTE | 2023-03-28 18:11 | ICD Implantation ---
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 Dual chamber ICD explantation and new device implantation COMPLICATIONS: None. ESTIMATED BLOOD LOSS: <20 mL. SPECIMENS: None. ANESTHESIA: Conscious sedation and propofol (administered by nurse drafter apprentice) PROCEDURE DETAILS: After all the questions were answered, an informed consent was taken. All the risks and complication were explained in detail. The patient was brought to the coreroom foundry laborer. The patient's right and left chest was prepped and draped in the usual sterile fashion. A 3-inch horizontal incision was over the site of previous device placement site and sharp and blunt dissection was carried chucky to the device. IV antibiotics were administered prior to first incision. Plasma blade was used for pocket dissection and the old device was removed from the pocket and detached from the leads. The pocked was thoroughly irrigated with saline. A new device was attached to the previously present leads. The device was placed in Tyrx patch and everything placed back in the pocket and the pocket closed in 2 layers using 3.0 Vicryl. The patient tolerated the procedure. The device and the leads were found to be functioning normally. DFTs were not performed during this replacement procedure. NEW DEVICE INFORMATION: Bitotronik Intica Oumar 7 VR-T DX with serial number [id number] MARISOL CASTILLO MD [facility] CCDS Mar 28, 2023 18:11
[2023-03-28] MEDS ORDERED: NS IV 1000 ML 1,000 ML IV SCH (18:15)
[2023-03-28] MEDS ORDERED: PATIENT MAY USE OWN MEDS, ALL PO SCH (18:15)
--- NOTE | 2023-03-28 18:19 | Discharge Inst-Post Device ---
Discharge Inst-Post Device Follow up/Plan F/u at Dr Castillo's for wound check on 04-01-23 F/u at Dr Castillo'zan for doctor visit in one month Heart Healthy Diet Do not lift arm on side of device placement above head for 7 days. Do not push and pull heavy objects for 14 days. Activity as tolerated. No driving for 3 days. Leave dressing on until follow up at the office. DESMOND CASTILLO MD FACP [facility]S Mar 28, 2023 18:19
[2023-03-28] MEDS ORDERED: ACET325T38 PO (18:23)
[2023-03-28] MEDS ORDERED: OXYC1TAB87 PO (18:23)
--- NOTE | 2023-03-28 18:24 | Discharge Inst-Cardiology ---
Discharge Inst-Cardiac Discharge Medications New Medications: Acetaminophen (Tylenol) 325 Mg Tablet 650 MG PO Q6H PRN for PAIN, #50 TAB 0 Refills Oxycodone HCl/Acetaminophen (Percocet 5-325 mg Tablet) 1 Each Tablet 1 TAB PO Q8H for PAIN-MODERATE MDD 6 TABS for 5 Days, #15 TAB 0 Refills Continued Medications: Aspirin (Aspirin) 81 Mg Tab.chew 81 MG PO DAILY, TAB Buprenorphine HCl (Belbuca) 150 Mcg Film 150 MCG BC BID for 7 Days, FILM Buprenorphine HCl (Belbuca) 450 Mcg Film 450 MCG BC BID for 7 Days, FILM Empagliflozin (Jardiance) 25 Mg Tablet 25 MG PO DAILY, TAB Furosemide (Furosemide) 40 Mg Tablet 80 MG PO DAILY, TAB TAKES 2 (40MG) TABLETS Insulin Determir (Levemir) 100 Unit/Ml Soln 15 UNITS SQ BID, EA Lisinopril (Lisinopril) 40 Mg Tablet 40 MG PO DAILY, TAB Metoprolol Succinate (Metoprolol Succinate) 200 Mg Tab.er.24h 200 MG PO DAILY, TAB Potassium Chloride (Potassium Chloride) 20 Meq Tab.er.prt 40 MEQ PO DAILY, TAB TAKES 2 (20MEQ) TABLETS Pravastatin Sodium (Pravastatin Sodium) 10 Mg Tablet 10 MG PO DAILY, TAB Spironolactone (Spironolactone) 25 Mg Tablet 25 MG PO DAILY, TAB DESMOND ROSAS MD [facility] CCDS Mar 28, 2023 18:24
[2023-03-28] MEDS ORDERED: CEFU500T63 PO (18:28)
--- NOTE | 2023-03-28 18:30 | Cardiac Procedure Note-CS/ASA ---
Pre-Procedure Note Pre-Op Procedure Note Date of Available H&P: March 10, 2023 Date H&P Reviewed: Mar 28, 2023 Time H&P Reviewed: 16:50 History & Physical: H&P Reviewed, Changes noted below Pre-Operative Diagnosis: Dual ch ICD at [facility] Moderate Sedation PreProcedure ASA Score 3 Airway Lungs Heart ASA score ASA 1: a normal healthy patient ASA 2: a patient with a mild systemic disease (mid diabetes, controlled hype rtension, obesity ASA 3: a patient with a severe systemic disease that limits activity (angina, COPD, prior Myocardial infarction) ASA 4: a patient with an incapacitating disease that is a constant threat to life (CHF, renal failure) ASA 5: a moribund patient not expected to survive 24 hrs. (ruptured aneurysm) ASA 6: a declared brain- patient whose organs are being harvested. For emergent operations, add the letter E after the classification Mallampati Classification Grade 3 Sedation Plan Analgesia, Amnesia, Plan communicated to team members The patient is an appropriate candidate to undergo the planned procedure, sedation, and anesthesia. The patient immediately re-assessed prior to indication. DESMOND ROSAS MD FACP [facility] CCDS Mar 28, 2023 18:29
--- NOTE | 2023-03-28 18:58 | Diagnostic Imaging Report ---
EXAMINATION: Chest radiograph, portable AP view. DATE: 03/28/2023 6:50 PM INDICATION: 52-year-old male, status post pulse generator change. COMPARISON: February 23, 2018. FINDINGS: There is a left-sided cardiac assist device with lead. Heart size and mediastinal contours are unremarkable. There is no identified pneumothorax. There is no large pleural effusion. There is no identified focal airspace consolidation. IMPRESSION: 1. No identified interval acute cardiopulmonary abnormality. Dictated by: Dictated on workstation # [id number]
[2023-03-28] MEDS ORDERED: BUPRENORPHINE HCL 150 MCG BC SCH (21:00)
[2023-03-28] MEDS ORDERED: BUPRENORPHINE HCL 450 MCG BC SCH (21:00)
[2023-03-29] MEDS ORDERED: KCL 20 MEQ TAB (K-DUR) PO SCH (07:00)
[2023-03-29] MEDS ORDERED: FUROSEMIDE 40 MG (LASIX) TAB PO SCH (09:00)
[2023-03-29] MEDS ORDERED: EMPAGLIFLOZIN 10 MG TABLET (JARDIANCE) PO SCH (09:00)
[2023-03-29] MEDS ORDERED: ASPIRIN 81 MG CHEW (CHILDREN'S ASA) PO SCH (09:00)
[2023-03-29] MEDS ORDERED: NON-FORMULARY MEDICATION 1 EA EA (Metoprolol Succinate 200 MG) PO SCH (09:00)
[2023-03-29] MEDS ORDERED: lisINopril 40 MG (PRINIVIL) TABLET PO SCH (09:00)
[2023-03-29] MEDS ORDERED: NON-FORMULARY MEDICATION 1 EA EA (Pravastatin Sodium 10 MG) PO SCH (09:00)
[2023-03-29] MEDS ORDERED: NON-FORMULARY MEDICATION 1 EA EA (Empagliflozin (Jardiance) 25 MG) PO SCH (09:00)
[2023-03-29] MEDS ORDERED: meTOprolol SUCCINATE 100 MG (TOPROL XL) TAB PO SCH (09:00)
[2023-03-29] MEDS ORDERED: SPIRONOLACTONE 25 MG (ALDACTONE) TAB PO SCH (09:00)
== END 2023-03-28 20:30 | disposition home or self-care (01) ==
LOC: CATH 14:29 → ICU 18:31 → CATH 20:30
PROVIDERS: ATTEND Internal Medicine Cardiovascular Disease
DX: Z45.02 Encounter for adjustment and management of automatic implantable cardiac defibrillator (principal); I42.0 Dilated cardiomyopathy; I10 Essential (primary) hypertension; I95.1 Orthostatic hypotension; G89.29 Other chronic pain; M25.559 Pain in unspecified hip; M54.9 Dorsalgia, unspecified; R00.0 Tachycardia, unspecified; G47.33 Obstructive sleep apnea (adult) (pediatric); E78.5 Hyperlipidemia, unspecified; E11.9 Type 2 diabetes mellitus without complications; E78.2 Mixed hyperlipidemia; E66.01 Morbid (severe) obesity due to excess calories; F17.220 Nicotine dependence, chewing tobacco, uncomplicated; Z68.39 Body mass index [BMI] 39.0-39.9, adult; Z28.310 Unvaccinated for COVID-19; Z79.899 Other long term (current) drug therapy; Z99.81 Dependence on supplemental oxygen
CPT/HCPCS: 33262; 71045; 80053; 80061; 85027; 85610; 85730; 87081; 93005; C1722; 36415

== ENCOUNTER → 2023-03-28 | Outpatient (CLI) | payer MEDICARE, MEDICAID ==
[~2023-03-28] MED LIST changes: +ACET325T38 PO; +ASPI-999 PO; +BUPR150F3 BC; +BUPR450F2 BC; +CEFU500T63 PO; +EMPA25TA PO; -INSU100I29 SC; +INSU100I30 SC; +INSU100V5 SQ; +METO200T48 PO; +OXYC1TAB87 PO; -RT-ALBUTEROL SULF 2.5 MG/3 ML PRE-MIX VIAL INH ONE
== END ==
LOC: CARD 09:56
PROVIDERS: ATTEND Nurse Practitioner Family
DX: I42.0 Dilated cardiomyopathy (principal); I51.7 Cardiomegaly
CPT/HCPCS: 93306

== ENCOUNTER → 2023-05-02 | Outpatient (CLI) | payer MEDICARE, MEDICAID ==
[~2023-05-02] MED LIST changes: +ACET325T38 PO; +ASPI-999 PO; +BUPR150F3 BC; +BUPR450F2 BC; +CEFU500T63 PO; +EMPA25TA PO; +INSU100V5 SQ; +METO200T48 PO; +OXYC1TAB87 PO
== END ==
LOC: CARD 11:44
PROVIDERS: ATTEND Nurse Practitioner Family
DX: I42.0 Dilated cardiomyopathy (principal)
CPT/HCPCS: 93225; 93226